=== PATIENT | female | born 1940 | race Caucasian/White ===

== ENCOUNTER 2019-12-20 20:14 | Inpatient (IN) | payer MEDICARE, SELFPAY ==
[2019-12-20] VITALS (9 sets, daily range): BP systolic 142–191; BP diastolic 57–97; PULSE 50–60; RESP 12–14; TEMP 36.6–36.7; O2SAT 89–95; BMI 33.0; BMI 29.3
--- NOTE | 2019-12-20 20:24 | ED.RN ---
CALLED FOR EKG PER RN REQUEST, PULLED OLD EKGS FOR
--- NOTE | 2019-12-20 20:36 | RAD_ITS ---
STUDY: X-RAY CHEST REASON FOR EXAM: Female, 79 years old. CHEST PAIN, PREVIOUS HEART ATTACK, SMOKER. TECHNIQUE: Single frontal view of the chest. COMPARISON: May 06, 2013. FINDINGS: Cardiac silhouette unremarkable. Pulmonary vascularity unremarkable. Aorta atherosclerotic. No focal airspace opacities. No pleural effusions. A rounded nodular density at the right base is similar to the comparison examination 2012. Upper abdomen unremarkable. Osseous structures intact. No pneumothorax. RAD/Chest 1 View (Portable) IMPRESSION: No acute cardiopulmonary findings Electronically Signed: Arslan Huff, at 21:01 EST Tel , Service support ,
--- NOTE | 2019-12-20 20:36 | EKG12_ITS ---
Test Reason : CP Blood Pressure : / mmHG Vent. Rate : 053 BPM Atrial Rate : 053 BPM P-R Int : 134 ms QRS Dur : 076 ms QT Int : 482 ms P-R-T Axes : 064 049 056 degrees QTc Int : 452 ms Sinus bradycardia Left ventricular hypertrophy with repolarization abnormality Abnormal ECG Confirmed by GERARDO US, GILES ([id number]), editor department RAMIRO ACOSTA ([id number]) on 12/22/2019 8:02:45 AM Referred By: ZACKARY Confirmed By:SAUL CARRILLO MD
[2019-12-20 20:43] LABS: Absolute Lymphocyte Count 1.87 X10^3/uL (0.83-4.51); Basophil# 0.08 X10^3/uL; Basophil% 0.7 % (0-1); Eosinophil# 0.35 X10^3/uL; Eosinophils% 2.9 % (0-5); Hematocrit 44.1 % (37-47); Hemoglobin 14.6 g/dL (12.0-15.0); Lymphocyte # 1.87 X10^3/ul (4.0); Lymphocyte % 15.3 % (19-41); Mean Corp Hgb Conc 33.1 g/dL (32-36); Mean Corpuscular Hgb 30.3 pg (27.0-32.0); Mean Corpuscular Volume 91.5 fL (81-99); Mean Platelet Vol. 11.2 fl (6.2-12.0); Monocyte# 0.84 X10^3/uL; Monocyte% 6.9 % (0-10); NRBC Flagged by Analyzer 0 % (0-5); Neutrophil % 73.8 % (47-70); Platelet Count 252 K/mm3 (150-450); RBC Distribution Width SD 50.3 fl (35.1-43.9); Red Blood Count 4.82 M/mm3 (4.2-5.4); White Blood Count 12.2 K/mm3 (4.4-11.0)
[2019-12-20] MEDS: Nitroglycerin SL (ED/IMG/CATH) 0.4 MG TABLET SUBLINGUAL ×2 (20:43→20:50)
[2019-12-20 20:57] LABS: Anion Gap 5 (5-15); BUN 24 mg/dL (7-18); BUN/Creat Ratio 23.5 RATIO (10-20); Calcium,Total 9.1 mg/dL (8.5-10.1); Chloride 107 mmol/L (98-107); Creatinine, Serum 1.02 mg/dL (0.55-1.02); EST Glomerular Filtration Rate 56 mL/min (>60); Est Glom Filt Rate - Afr Amer 67 mL/min (>60); Estimated Creatinine Clearance 39.25 ml/min; Glucose 130 mg/dL (74-106); Sodium Level 142 mmol/L (136-145)
--- NOTE | 2019-12-20 21:01 | ED.DCSUM_ITS ---
- ER Visit Summary Date of Service: 12/20/19 Chief Complaint: Chest pain History of Present Illness: The patient is a 79 F who presents with chest pain that began last night. Patient states the pain became worse today. Patient describes her pain as a tightness. Patient states that started with indigestio n. Patient states this is similar to the pain she had with her prior ME approximately 9 years ago. Patient states she has had a stress test approximately a year to a year and a half ago which was normal. Patient states her pain is worse when she tried to lay flat. Patient states her pain improved after vomiting and also after sublingual nitroglycerin that she took at home tonight. Patient admits to some nausea and vomiting. Patient admits to some diaphoresis. Patient states the pain is over the left lower chest. Patient took 1 baby aspirin and nitroglycerin at home. EMS gave 3 baby aspirin and Zofran. Physical Examination: Vital signs are stable except for slightly elevated blood pressure 191/62. Patient is afebrile. Patient is in no acute distress. Oral m ucosa is pink and moist. Neck is supple. Trachea is midline. There is no JVD noted. Heart was regular rate and rhythm. Lungs are clear and equal bilaterally. Abdomen is soft. Bowel sounds are normal. There is no tenderness. There is no rebound or guarding noted. Skin is warm dry. Cranial nerves II through XII are intact. There are no focal motor or sensory deficits noted. Extremities are intact. There is no calf tenderness or edema. Test Results: EKG showed sinus bradycardia with a rate of 53. There is left ventricular hypertrophy noted. There are no acute ST or T wave changes. CBC shows a slight leukocytosis of 12.2. Comprehensive metabolic profile showed a slightly elevated BUN of 24 and a glucose of 130. Troponin was elevated at 0.579. Emergency Department Course and Treatment: EMS administered aspirin and Zofran. Patient was pain-free here in the emergency department. Patient was advised of her findings. Patient has a HEART score of 7 and a ADE risk score of 6. Patient is agreeable to be admitted here in the hospital. Case was discussed with the hospitalist. Patient will be admitted to PCU for observation. Patient and family understood and were agreeable with the plan. All questions were answered. Disposition: Admit for observation Impression: 1. Chest pain 2. Elevated troponin This note was generated with Dragon dictation software. It may contain incorrect words, spelling, and punctuation that were not noted in review of the chart prior to signing ED Disposition - Plan for ED Patient: Disposition: Acute Care Hospital [facility] Diagnosis: Chest pain, Elevated troponin Referrals: Max Jordan MD [Primary Care Provider] -
--- NOTE | 2019-12-20 21:22 | HP.PCM_ITS ---
Problem List (1) Chest pain Status: Acute Qualifiers: Chest pain type: unspecified Qualified Code(s): R07.9 - Chest pain, unspecified (2) Elevated troponin Status: Acute (3) CAD (coronary artery disease) Status: Chronic Qualifiers: Coronary Disease-Associated Artery/Lesion type: unspecified vessel or lesion type [place] vs. transplanted heart: unspecified whether [place] or transplanted heart Associated angina: angina presence unspecified Qualified Code(s): I25.10 - Atherosclerotic heart disease of [place] coronary artery without angina pectoris (4) HTN (hypertension) Status: Chronic Qualifiers: Hypertension type: essential hypertension Qualified Code(s): I10 - Essential (primary) hypertension (5) HLD (hyperlipidemia) Status: Chronic Qualifiers: Hyperlipidemia type: unspecified Qualified Code(s): E78.5 - Hyperlipidemia, unspecified (6) Obesity Status: Chronic Qualifiers: Obesity type: due to excess calories Obesity classification: adult class 1 (BMI 30 - 34.9) Serious obesity comorbidity presence: unspecified whether serious comorbidity present Body mass index: BMI 33.0-33.9 Qualified Code(s) : E66.09 - Other obesity due to excess calories; Z68.33 - Body mass index (BMI) 33.0-33.9, adult (7) Tobacco use Status: Chronic (8) MATT (obstructive sleep apnea) Status: Chronic (9) Anxiety and depression Status: Chronic (10) Hypothyroidism Status: Chronic Qualifiers: Hypothyroidism type: unspecified Qualified Code(s): E03.9 - Hypothyroidism, unspecified History of Present Illness Date of Admission: 12/20/19 Chief Complaint: Chest pain The patient is a 79 y/o F w/ PMHx: CAD s/p PCI 2009 per daughter report, unclear vessel, HTN, HLD, Hypothyroidism, MATT on CPAP q HS, Obesity, Tobacco use, Anxiety and Depression who presents to the [facility] ED on 12/20/19 with history of onset left sided chest discomfort described as a pressure and tightness, initially 4-5 out of 10 in severity the evening prior to current presentation with general malaise and fatigue with eventual resolution however returned on day of ED presentation starting approximately 5 PM lasting until ED presentation, worse in severity with again left-sided chest tightness and pressure, 10 out of 10 in severity at that time with associated nausea without of emesis and diaphoresis prompting ED presentation. Patient noted resolution of her symptoms with aspirin and sublingual nitroglycerin x1. Upon evaluation patient noted continued 0 out of 10 chest discomfort complaint. Patient denied any recent upper respiratory symptoms nor market dyspnea or productive cough. In the ED following admission patient did have oxygenation noted at 89% on room air with no usage of oxygen at home but chronic tobacco usage prolonged history and likely underlying COPD. Work-up in the ED included T 98.1, heart rate 56, initial BP 191/62 with repeat upon evaluation 142/68, respiratory rate 14, 95% on room air, CBC with WC 12.2, hemoglobin 14.6, platelet 252 with left shift, BMP with BUN/creatinine 24/1.02, glucose 130, troponin 0 0.579, EKG with sinus bradycardia with LVH with no acute evidence of ischemia, rest x-ray with no acute cardiopulmonary findings. Past Medical History Past Medical History (Chronic Problems): Chronic Problems CAD (coronary artery disease) (Chronic) HTN (hypertension) (Chronic) HLD (hyperlipidemia) (Chronic) Obesity (Chronic) Tobacco use (Chronic) MATT (obstructive sleep apnea) (Chronic) Anxiety and depression (Chronic) Hypothyroidism (Chronic) Allergies iodine Allergy (Verified 12/20/19 20:23) Angioedema varenicline [From Chantix] Adverse Reaction (Verified 12/20/19 20:23) Other Home Medications: Ambulatory Orders Medication Instructions Recorded Citalopram Hydrobromide [Celexa] 40 mg PO DAILY 09/07/13 Levothyroxine [Synthroid] 125 mcg PO DAILY 09/07/13 Metoprolol Tartrate [Lopressor] 25 mg PO DAILY 09/07/13 Pravastatin Sodium [Pravachol] 40 mg PO DAILY 09/07/13 Aspirin 81 mg PO DAILY 12/20/19 Hydrochlorothiazide 12.5 mg PO DAILY 12/20/19 Surgical History: - - PCI x1 unclear vessel 2009 per daughter report, bladder lift surgery x2, right total hip replacement. 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 Smoking Status: Current every day smoker - Patient with ongoing 1 pack/day cigarette tobacco usage since youth. Tobacco Use: Cigarettes Alcohol: Occasional Drugs: None - *Family History Maternal History Items: - - Patient notes a maternal family history of at age 65 secondary to reportedly a blood clot. Paternal History Items: - - Patient notes paternal family history of prostate cancer, passing in in his 70s. Review of Systems Constitutional: Reports: Anorexia, Malaise, Weakness, Fatigue. Denies: Chills, Fever, Weight Change HEENT: Denies: Head Aches, Sinus Congestion, Sinus Drainage Cardiovascular: Reports: Chest Pain, Chest Pressure, Chest Tightness, Heaviness, Orthopnea. Denies: Light Headedness, Palpitations, Syncope Respiratory: Denies: Cough, Shortness of Breath, Shortness of breath at rest, Shortness of breath upon exertion, Sputum production Gastrointestinal: Reports: Nausea, Vomiting. Denies: Abdominal Pain Genitourinary: Denies: Dysuria Musculoskeletal: Reports: Joint Pain. Denies: Joint Tenderness Skin: Denies: Rash, Wounds Neurological: Denies: Numbness, Tingling, Focal weakness Psychiatric: Reports: Anxiety, Depression. Denies: Homicidal Ideations, Suicidal Ideations Hematologic/ Lymphatic: Denies: Easy Bruising, Easy Bleeding VTE Information - Inpt Only VTE Present on Admission: No VTE Mechan Device Prophylaxis: SCD's VTE Pharm Prophylaxis ordered?: Yes Patient Problems: Active and Suspected Problems Chest pain (Acute) Elevated troponin (Acute) Subjective: Seated upright in the ED bed, fatigued appearance, no acute distress, notes chest discomfort currently resolved. Objective: Physical Examination: General: awake, alert, oriented x 3 and cooperative, seated upright in the ED bed, fatigued appearance, notes chest discomfort currently resolved. Skin: normal color, turgor, no icterus, cyanosis. HEENT: AT/NC, EOMI, PERRLA, MMM, no carotid bruits or JVD noted. Lungs: Breath sounds, greater bases, moderate effort, no obvious rales, rhonchi or wheezing. Heart: Cardiac with regular rhythm; no gallop, rub audible, no reproducible dis comfort with palpation. Abdomen: soft, obese, NTTP, ND, normal BS, no HSM. Extremities: no cyanosis, clubbing, or edema. Neurological: patient awake, alert, oriented x 3; cognitive function intact; pu pils equally reactive to light and accomodation; cranial nerves II-XII grossly normal, moving all 4 extremities, no focal deficits, strength moderately global decrease secondary to acute presentation. Psychiatric: affect appears fatigued, no acute evidence of depressive or anxiety feelings. - Physical Exam Vitals/I&O's: Vital Signs Temp Pulse Resp BP Pulse Ox 98.1 F 58 L 14 142/68 H 94 12/20/19 20:19 12/20/19 20:50 12/20/19 20:19 12/20/19 20:50 12/20/19 20:51 Oxygen Flow Rate (L/min) 2 Oxygen Delivery Method Nasal Cannula Weight: 192 lb 7.417 oz Body Mass Index (BMI) 33.0 Laboratory Results 12/20/19 20:21: WBC 12.2 H, RBC 4.82, Hgb 14.6, Hct 44.1, MCV 91.5, MCH 30.3, MCHC 33.1, RDW Std Deviation 50.3 H, RDW Coeff of Kal 15.0 H, Plt Count 252, MPV 11.2, Immature Gran % (Auto) 0.400, Neut % (Auto) 73.8 H, Lymph % (Auto) 15.3 L , [place] % (Auto) 6.9, Eos % (Auto) 2.9, Baso % (Auto) 0.7, Absolute Neuts (auto) 9.0 H, Absolute Lymphs (auto) 1.87, Nucleated RBC % 0 12/20/19 20:21: Sodium 142, Potassium 4.0, Chloride 107, Carbon Dioxide 30.0, Anion Gap 5, BUN 24 H, Creatinine 1.02, Estim Creat Clear Calc 39.25, Est GFR (MDRD) Af Amer 67, Est GFR (MDRD) Non-Af 56 L, BUN/Creatinine Ratio 23.5 H, Glucose 130 H, Calcium 9.1, Troponin I 0.579 H Current Medications Nitroglycerin (Nitrostat) 0.4 mg SUBLINGUAL Q5M PRN PRN Reason: Chest pain Last Admin: 12/20/19 20:50 Dose: 0.4 mg Documented by: Assessment/Plan All Active Problems Chest pain (Acute) Elevated troponin (Acute) The patient is a 79 y/o F w/ PMHx: CAD s/p PCI 2008 per daughter report, unclear vessel, HTN, HLD, Hypothyroidism, MATT on CPAP q HS, Obesity, Tobacco use, Anxiety and Depression who presents to the [facility] ED on 12/20/19 with history of onset left sided chest discomfort described as a pressure and tightness, initially 4-5 out of 10 in severity the evening prior to current presentation with general malaise and fatigue with eventual resolution however returned on day of ED presentation starting approximately 5 PM lasting until ED presentation, worse in severity with again left-sided chest tightness and pressure, 10 out of 10 in severity at that time with associated nausea without of emesis and diaphoresis. 1. Chest Pain w/ Suspected Acute NSTEMI: Work-up in the ED included T 98.1, heart rate 56, initial BP 191/62 with repeat upon evaluation 142/68, respiratory rate 14, 95% on room air, CBC with WC 12.2, hemoglobin 14.6, platelet 252 with left shift, BMP with BUN/creatinine 24/1.02, glucose 130, troponin 0 0.579, EKG with sinus bradycardia with LVH with no acute evidence of ischemia, rest x-ray with no acute cardiopulmonary findings. Will admit to PCU, maintain on a monitored bed, continue serial cardiac enzymes and EKGs. Obtain magnesium level upon admission. Start therapeutic lovenox. Continue medical management w/ asa, BB, statin w/ AM FLP. Cardiology consulted for consideration cardiac catheterization. ECHO requested. Maintain NPO after midnight w/ gentle hyd ration. ASA, maintain on nitrobid given improvement w/ regimen, morphine. 2. CAD: Status post PCI x1 per report in 2008, unclear vessel, requested records from [facility] as reportedly this is where it was done, continue aspirin, metoprolol with heart rate monitoring given bradycardia, not on MARY inhibitor or ARB, continue statin therapy. 3. Asymptomatic hypoxia (89% on RA), suspected underlying chronic COPD with prolonged tobacco use history: Will maintain on oxygen with wean as tolerated to room air, maintain on ATC duonebs, PRN albuterol, HOB, IS parameters, encourage strongly tobacco cessation, would benefit from outpatient PFTs. 4. Hypertension: Continue home regimen including metoprolol, hydrochlorothiazide, PRN hydralazine. 5. Hyperlipidemia: Continue home statin regimen. AM FLP. 6. Hypothyroidism: Continue home synthroid regimen. 7. Anxiety and depression: We will continue patient home citalopram regimen. 8. Tobacco Abuse: Encouraged cessation, inpatient consultation per RT, NR if desired or currently declined and does state that she intends to continue smoking despite discussions. 9. Obesity: Weight loss and lifestyle changes encouraged. 10. MATT: Will continue CPAP nightly. 11. DVT prophylaxis: SCDs, as noted therapeutic Lovenox. Code Visit Inpatient E&M: 13566 Init Hosp L3
--- NOTE | 2019-12-20 22:26 | EKG12_ITS ---
Test Reason : CP ADMISSION Blood Pressure : / mmHG Vent. Rate : 049 BPM Atrial Rate : 049 BPM P-R Int : 134 ms QRS Dur : 074 ms QT Int : 520 ms P-R-T Axes : 060 055 070 degrees QTc Int : 469 ms Sinus bradycardia Left ventricular hypertrophy with repolarization abnormality Abnormal ECG When compared with ECG of 20-DEC-2019 20:27, MANUAL COMPARISON REQUIRED, DATA IS UNCONFIRMED Confirmed by REGINA BARRERA ([id number]), acquisitions editor RAMIRO ACOSTA ([id number]) on 12/22/2019 1:16:52 PM Referred By: DR JONES Confirmed By:REGINA BARRERA
--- NOTE | 2019-12-20 22:26 | ECHOD_ITS ---
Reason For Study: Chest pain Procedure This was a 2D Doppler, Color Flow transthoracic echocardiogram. Exam performed portable in patient room. Left Ventricle Normal LV size. Sigmoid septum. Left ventricular systolic function is normal. The estimated ejection fraction is 60 %. Stage 2 diastolic dysfunction. No regional wall motion abnormalities noted. Right Ventricle Normal RV size. Normal systolic function. Atria Normal left atrium. Normal right atrium. Mitral Valve Normal mitral valve. Mild (1+) eccentric mitral valve insufficiency. Tricuspid Valve Normal tricuspid valve. Mild tricuspid valve insufficiency. Pulmonary artery systolic pressure is 35 mmHg. Aortic Valve Trisinus/trileaflet aortic valve. Mild (1+) aortic valve insufficiency. Pulmonic Valve Normal pulmonic valve. Great Vessels Normal aortic root. The pulmonary artery is normal size. Normal inferior vena cava. Pericardium/Pleural No pericardial effusion. MMode/2D Measurements & Calculations LVIDd: 4.5 cm IVSd: 1.8 cm Ao root diam: 3.1 cm LVIDs: 2.8 cm LVPWd: 1.1 cm RVDd: 3.1 cm FS: 37.9 % LAV(MOD-bp): 53.6 ml LVAd ap4: 33.2 cm2 SV(MOD-sp4): 66.3 ml LAV(MOD-bp) Indexed: 28.6 ml/m2 EDV(MOD-sp4): 109.2 ml LAV(MOD-sp2): 46.2 ml EDV(sp4-el): 113.2 ml LAV(MOD-sp4): 54.4 ml LVAs ap4: 18.7 cm2 ESV(MOD-sp4): 42.9 ml ESV(sp4-el): 42.9 ml EF(MOD-sp4): 60.7 % EF(sp4-el): 62.1 % SV(sp4-el): 70.3 ml LA A4 area: 19.8 cm2 LA dimension(2D): 4.2 cm RA A4 area: 16.7 cm2 Doppler Measurements & Calculations MV E max momo: 92.3 cm/sec Lat Peak E' Momo: 3.0 cm/sec Med Peak E' Momo: 5.0 cm/sec MV A max momo: 60.5 cm/sec E/E' lat: 31.1 E/E' med: 18.3 MV E/A: 1.5 Ao V2 max: 129.8 cm/sec AI max momo: 402.2 cm/sec LV V1 max: 90.2 cm/sec Ao max P.7 mmHg AI max P.7 mmHg LV V1 max P.3 mmHg AI dec slope: 198.5 cm/sec2 AI P1/2t: 593.3 msec PA V2 max: 70.6 cm/sec TR max momo: 277.5 cm/sec TR max P.8 mmHg Interpretation Summary Normal LV size. Left ventricular systolic function is normal. The estimated ejection fraction is 60 %. Mild tricuspid valve insufficiency. Mild (1+) eccentric mitral valve insufficiency. Mild (1+) aortic valve insufficiency. Stage 2 diastolic dysfunction. Ordering Physician: Felipa Mcconnell Referring Physician: Max Jordan Performed By: Swathi Miranda RDCS
--- NOTE | 2019-12-20 22:37 | NURSING ---
Pt unsure of last pneumonia shot. Pt unsure of allergies, but states she has a lot.
[2019-12-20 22:40] LABS: Magnesium 2.1 mg/dL (1.6-2.6)
[2019-12-20 22:46] LABS: Prothrombin Time (Protime)PT. 13.1 SECONDS (11.7-14.9)
[2019-12-20 22:47] LABS: Partial Thromboplast Time 27.5 Seconds (24.1-36.2)
[2019-12-20 23:05] LABS: Hemoglobin A1c 5.9 % (4.2-6.3)
[2019-12-20] MEDS: Enoxaparin 100 MG/ML Syringe 90 MG SC (23:38)
[2019-12-20] MEDS: Famotidine 20 MG Tablet PO (23:38)
[2019-12-20] MEDS: 0.9% Saline Lock 10 ML Syringe IV (23:38)
[2019-12-20] MEDS: 0.9% Normal Saline 1,000 ML 100 ML IV (23:44)
[2019-12-20] MEDS: Nitroglycerin Oint 1 INCH PACKET 0.5 INCH TRANSDERM. (23:51)
[2019-12-21] VITALS (34 sets, daily range): BP systolic 102–189; BP diastolic 53–119; PULSE 48–73; RESP 13–21; TEMP 36.5–36.8; O2SAT 92–98; BMI 29.2
[2019-12-21 02:45] LABS: Absolute Lymphocyte Count 2.27 X10^3/uL (0.83-4.51); Absolute Neutrophil Count 5.3 X10^3/uL (2.0-7.7); Basophil# 0.06 X10^3/uL; Basophil% 0.7 % (0-1); Eosinophil# 0.18 X10^3/uL; Eosinophils% 2.1 % (0-5); Hemoglobin 13.4 g/dL (12.0-15.0); Lymphocyte # 2.27 X10^3/ul (4.0); Lymphocyte % 26.2 % (19-41); Mean Corp Hgb Conc 32.7 g/dL (32-36); Mean Corpuscular Hgb 29.6 pg (27.0-32.0); Mean Corpuscular Volume 90.7 fL (81-99); Monocyte# 0.84 X10^3/uL; Monocyte% 9.7 % (0-10); NRBC Flagged by Analyzer 0 % (0-5); Neutrophil # 5.29 X10^3/uL (2.7-7.7); Neutrophil % 60.8 % (47-70); Platelet Count 226 K/mm3 (150-450); RBC Distribution Width SD 50.1 fl (35.1-43.9); Red Blood Count 4.52 M/mm3 (4.2-5.4); White Blood Count 8.7 K/mm3 (4.4-11.0)
[2019-12-21 03:18] LABS: Anion Gap 3 (5-15); BUN 23 mg/dL (7-18); BUN/Creat Ratio 27.9 RATIO (10-20); Calcium,Total 8.5 mg/dL (8.5-10.1); Chloride 108 mmol/L (98-107); Cholesterol 149 mg/dL (200); Creatinine, Serum 0.82 mg/dL (0.55-1.02); EST Glomerular Filtration Rate 71 mL/min (>60); Est Glom Filt Rate - Afr Amer 86 mL/min (>60); Estimated Creatinine Clearance 52.93 ml/min; Glucose 127 mg/dL (74-106); High Density Lipoprotein 52 mg/dL; Potassium 4.3 mmol/L (3.5-5.1); Sodium Level 142 mmol/L (136-145); Triglycerides 68 mg/dL; Very Low Density Lipoprotein 14 mg/dL (5-40)
[2019-12-21] MEDS: Levothyroxine 125 MCG Tablet PO (05:39)
[2019-12-21] MEDS: Nitroglycerin Oint 1 INCH PACKET 0.5 INCH TRANSDERM. (05:40)
--- NOTE | 2019-12-21 05:55 | EKG12_ITS ---
Test Reason : AM EKG Blood Pressure : / mmHG Vent. Rate : 050 BPM Atrial Rate : 050 BPM P-R Int : 138 ms QRS Dur : 072 ms QT Int : 518 ms P-R-T Axes : 065 055 085 degrees QTc Int : 472 ms Sinus bradycardia Nonspecific ST and T wave abnormality Prolonged QT Abnormal ECG When compared with ECG of 20-DEC-2019 22:46, MANUAL COMPARISON REQUIRED, DATA IS UNCONFIRMED Confirmed by REGINA BARRERA ([id number]), assistant production editor RAMIRO ACOSTA ([id number]) on 12/22/2019 1:23:37 PM Referred By: DR JONES Confirmed By:REGINA BARRERA
--- NOTE | 2019-12-21 07:08 | CON.PCM_ITS ---
Reason for Consult Date of Consultation: 12/21/19 Reason for Consultation: Abnormal cardiac enzymes and chest pain History of Present Illness: The patient is a 79 year old F with a past medical history significant for hypertension, tobacco abuse, previous coronary artery disease status post stenting in 2008 at the [facility]. Patient has been fairly sedentary and yesterday experienced epigastric and upper chest discomfort described as a pressure. There was no associated nausea or vomiting no diaphoresis no near syncope or syncope. She was rather concerned about this discomfort so presented to the emergency room and was evaluated. In the emergency room was noted to humphries ve an EKG demonstrating normal sinus rhythm but with mildly abnormal cardiac enzymes. I was called to assist in evaluation and management. She has not had any further chest discomfort since admission. [] Past Medical History Allergies/Adverse Reactions: Allergies guaifenesin [From Mucinex] Allergy (Verified 12/20/19 22:51) Other iodine Allergy (Verified 12/20/19 20:23) Angioedema varenicline [From Chantix] Adverse Reaction (Verified 12/20/19 20:23) Other Home Medications: Ambulatory Orders Medication Instructions Recorded Citalopram Hydrobromide [Celexa] 40 mg PO DAILY 09/07/13 Levothyroxine [Synthroid] 125 mcg PO DAILY 09/07/13 Metoprolol Tartrate [Lopressor] 25 mg PO DAILY 09/07/13 Pravastatin Sodium [Pravachol] 40 mg PO DAILY 09/07/13 Aspirin 81 mg PO DAILY 12/20/19 Losartan Potassium 100 mg PO DAILY 12/20/19 Meloxicam 15 mg DAILY 12/20/19 Past Medical History (Chronic Problems): Chronic Problems CAD (coronary artery disease) (Chronic) HTN (hypertension) (Chronic) HLD (hyperlipidemia) (Chronic) Obesity (Chronic) Tobacco use (Chronic) MATT (obstructive sleep apnea) (Chronic) Anxiety and depression (Chronic) Hypothyroidism (Chronic) Surgical History: - - PCI x1 unclear vessel 2008 per daughter report, bladder lift surgery x2, right total hip replacement. 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 Paternal History Items: - - Patient notes paternal family history of prostate cancer, passing in in his 70s. Lives: Alone - Patient lives alone, does have a boyfriend but they live separately. Smoking Status: Current every day smoker Tobacco Use: Cigarettes Alcohol: Occasional Drugs: None Review of Systems - Review of Systems General: Denies: Fever, Night Sweats, Fatigue HEENT: Denies: Vision Change Cardiovascular: Reports: Chest Discomfort. Denies: Shortness of Breath, Orthopnea, PND, Peripheral Edema, Palpitations, Lightheadedness, Dizziness, Near Syncope, Syncope Respiratory: Denies: Cough, Sputum Production, Hemoptysis Gastrointestinal: Denies: Hematemesis, Hematochezia, Melena Genitourinary: Denies: Dysuria, Hematuria Muscoloskeletal: Denies: Myalgias Skin: Denies: Rash Neurological: Denies: Dizziness Psychiatric: Denies: Anxiety Endocrine: Denies: Unexplained Weight Loss Hematologic/ Lymphatic: Denies: Anemia Subjectve: Pleasant lady in no distress Objective: Vital Signs Temp Pulse Resp BP Pulse Ox 98.2 F 50 L 13 154/58 H 97 12/21/19 04:25 12/21/19 04:25 12/21/19 04:25 12/21/19 05:40 12/21/19 04:25 Oxygen Flow Rate (L/min) 2 Oxygen Delivery Method Nasal Cannula Weight: 181 lb 10.574 oz Body Mass Index (BMI) 29.3 Intake and Output for Last 24 Hours 12/19/19 12/20/19 12/21/19 23:59 23:59 23:59 Intake Total 60 / 60 30 / 30 Balance 60 / 60 30 / 30 General: Awake, Alert, Oriented x 3 HEENT: PERRL, EOMI, Sclera Non Icteric Neck: Supple, Good ROM, No Lymph Node Enlargement Lungs: Clear to auscultation Cardiovascular: Regular Rhythm, Normal S1, Normal S2, No Murmurs, No Rubs, No Gallops Vascular: No Carotid Bruits, Normal Femoral Pulses, Normal Radial Pulses, Normal Dorsalis Pedal Pulse, Normal Posterior Tibial Pulses Abdomen: Bowel Sounds Present, Soft, Non Tender, No HSM, No Organomegaly Extremities: No Cyanosis, No Clubbing, No edema Musculoskeletal: No Erythema Skin: No Rashes Lymphatic: No Lymph Node Enlargement Neurological: No Focal Motor or Sensory Deficit Psych/Mental Status: Appropriate 12/20/19 20:21: WBC 12.2 H, RBC 4.82, Hgb 14.6, Hct 44.1, MCV 91.5, MCH 30.3, MCHC 33.1, Plt Count 252, MPV 11.2, Immature Gran % (Auto) 0.400, Neut % (Auto) 73.8 H, Lymph % (Auto) 15.3 L, Frederick % (Auto) 6.9, Eos % (Auto) 2.9, Baso % (Auto) 0.7, Absolute Neuts (auto) 9.0 H, Nucleated RBC % 0 12/20/19 20:21: Sodium 142, Potassium 4.0, Chloride 107, Carbon Dioxide 30.0, Anion Gap 5, BUN 24 H, Creatinine 1.02, Est GFR (MDRD) Af Amer 67, Est GFR (MDRD) Non-Af 56 L, BUN/Creatinine Ratio 23.5 H, Glucose 130 H, Calcium 9.1, Troponin I 0.579 H 12/20/19 20:21: PT 13.1, INR 1.0, APTT 27.5 12/20/19 20:21: Magnesium 2.1 12/20/19 20:21: Hemoglobin A1c 5.9 12/20/19 22:46: Troponin I 0.437 H 12/21/19 02:28: WBC 8.7, RBC 4.52, Hgb 13.4, Hct 41.0, MCV 90.7, MCH 29.6, MCHC 32.7, Plt Count 226, MPV 11.0, Immature Gran % (Auto) 0.500, Neut % (Auto) 60.8, Lymph % (Auto) 26.2, Frederick % (Auto) 9.7, Eos % (Auto) 2.1, Baso % (Auto) 0.7, Absolute Neuts (auto) 5.3, Nucleated RBC % 0 12/21/19 02:28: Sodium 142, Potassium 4.3, Chloride 108 H, Carbon Dioxide 31.0, Anion Gap 3 L, BUN 23 H, Creatinine 0.82, Est GFR (MDRD) Af Amer 86, Est GFR (MDRD) Non-Af 71, BUN/Creatinine Ratio 27.9 H, Glucose 127 H, Calcium 8.5, Triglycerides 68, Cholesterol 149, LDL Cholesterol 83, VLDL Cholesterol 14, HDL Cholesterol 52 12/21/19 02:28: Troponin I 0.881 H* Rhythm: EKG: Normal sinus rhythm with no acute changes ECHO: Stress Test: Cardiac Cath: PCI: CT Surgery: Holter monitor: EPS: PPM: CXR: Chest CT Scan: Assessment/Plan 1. Non-ST elevation myocardial infarction * Patient presents with chest discomfort and abdominal discomfort with previous risk factors and has ruled in for non-ST elevation myocardial infarction. At this particular time I would recommend that we proceed with a left heart catheterization. The risk benefits alternatives of been explained to her she understands and agrees to proceed. She does have previous dye allergy and will institute appropriate prophylaxis. * 2. Hypertension * Blood pressure appears to be under good control at this time. We will continue with the losartan as well as the beta-tracey. * Will obtain an echocardiogram at some point to assess left ventricular function and wall thickness * 3. Hyperlipidemia * Her lipid status is actually quite acceptable at this time however would benefit from medium intensity statin which will be started. * 4. Risk factor modification * Smoking cessation has been emphasized. Exercise and dietary modification have also been encouraged. * * Thank you for allowing me to participate in the care of your patient. Please don't hesitate to call if any issues arise * * * Addendum: Cardiac catheterization demonstrated the following: Normal left main coronary artery. Left anterior descending artery with mild disease. Left circumflex artery with high-grade 95% long stenosis. Right coronary artery with previously placed stent which is patent with mild in- stent stenosis. Preserved ejection fraction. Based on the above angiographic findings the patient to be considered for angioplasty of the left circumflex artery.
[2019-12-21] MEDS: Ipratropium/Albuterol Sulfate 3 ML AMPUL.NEB INHALATION ×3 (07:18→19:05)
--- NOTE | 2019-12-21 07:38 | CASEMGMT ---
Patient has a Healthcare Power of Quality Control Auditor and a Healthcare Living Will on file at [facility]. Marbella GALO MSW
[2019-12-21] MEDS: TICAGRELOR 90 MG TABLET 180 MG PO (07:58)
[2019-12-21] MEDS: Aspirin 81 MG TAB.CHEW PO (07:58)
[2019-12-21] MEDS: 0.9% Normal Saline 1,000 ML 15 ML IV (08:06)
[2019-12-21] MEDS: Losartan Potassium 100 MG Tablet PO (08:06)
--- NOTE | 2019-12-21 08:10 | CASEMGMT ---
[facility], the following are in-network tertiary facilities: [facility], [place], [facility], [place], [facility], [facility], [place], [facility], and . Diana MANCINI CM
--- NOTE | 2019-12-21 08:15 | NURSING ---
Verbal report given to LIVE Lilly from petroleum refinery laborer.
--- NOTE | 2019-12-21 08:52 | CL.D_ITS ---
Patient Name: ANNE MARIE CÁRDENAS Study Date: 12/21/2019 Performing: Emmett Rasmussen MD Ht: 66.14 inches 168 cm : 1940 Wt: 180.78 lbs 82 kg Age: 79 Gender: female BSA: 1.92 PROCEDURE(S) PERFORMED PH00-TLY/COR/LV CLINICAL PROFILE AND INDICATIONS Indications: Suspected CAD, ACS <= 24 hrs Heart Failure: None Stress/Imaging Stress/Image Study Performed: No CONCLUSIONS Previously placed stent in the right coronary arteries patent, mild disease noted in the left anterio r descending artery and diagonals. Severe disease noted of the mid circumflex artery and a nondomina nt vessel. RECOMMENDATIONS Referred for immediate PCI DESCRIPTION OF PROCEDURE The patient arrived to the procedure lab. The risks and benefits of the procedure as well as a full d escription of our services here and current unavailability of surgical backup were fully explained to the patient and/or their significant other prior to the catheterization. The Timeout was completed, verifying the correct patient and procedure. The patient's procedural site was prepped and draped in the usual fashion. Local anesthetic was given subcutaneously to right radial region with Lidocaine 2% . Using a modified Seldinger technique, arterial access was obtained via the right radial artery, a 6 Fr sheath was inserted. Left Coronary Artery selective angiography was performed in multiple views u sing a 5 Fr. 4.0 Nutley catheter. Right Coronary Artery selective angiography was then performed in mu ltiple views using a 5 Fr. 4.0 Nutley catheter. Left Ventriculography was performed in DUARTE projection using a 5 Fr. Pigtail catheter. LV to AO pullback pressures were then recorded. CORONARY ANGIOGRAPHY DOMINANCE: Right Dominant LEFT HEART ASSESSMENT Left Ventricular Ejection Fraction: by LV Gram 60 % Normal LV wall motion Normal Left Ventricular systolic function LEFT MAIN: Angiographically normal LEFT ANTERIOR DESCENDING ARTERY: PROX LAD: Mild luminal irregularities less than 30% MID LAD: Mild luminal irregularities less than 30% DIAGONAL 1: Proximal - Mild luminal irregularities CIRCUMFLEX ARTERY: MID CIRC: Longer 95% stenotic lesion irregular RIGHT CORONARY ARTERY: MID RCA: Previously placed stent is patent COMPLICATIONS PROCEDURE MEDICATIONS Versed 1 mg IV Oxygen: 2 L/min via nasal cannula Benadryl 25 mg IV @ 12/21/2019 08:28:30 Heparin diluted in 23cc Heparinized saline. Patient given 10cc IA of this solution. 12/21/2019 08:33: 30 Solu-medrol 125 mg IV 12/21/2019 08:28:30 SUMMARY OF HEMODYNAMIC DATA Time AIR REST ECG 08:25:45 AO 165/68 (103) SA 08:34:35 LV 155/5, 11 08:40:33 LV 154/4, 11 08:40:39 LV 156/7, 12 08:41:16 LVp 154/6, 11 08:41:22 AOp 158/55 (93) 08:41:28 Signed By Emmett Rasmussen MD On 12/21/2019 8:51:43 AM Emmett Rasmussen MD
--- NOTE | 2019-12-21 09:09 | NURSING ---
report called to ICU. report given to Katey MANCINI
--- NOTE | 2019-12-21 09:30 | EKG12_ITS ---
Test Reason : POST PCI Blood Pressure : / mmHG Vent. Rate : 051 BPM Atrial Rate : 051 BPM P-R Int : 142 ms QRS Dur : 074 ms QT Int : 504 ms P-R-T Axes : 059 057 045 degrees QTc Int : 464 ms Sinus bradycardia Left ventricular hypertrophy with repolarization abnormality Abnormal ECG When compared with ECG of 21-DEC-2019 05:38, MANUAL COMPARISON REQUIRED, DATA IS UNCONFIRMED Confirmed by REGINA BARRERA ([id number]), online editor RAMIRO ACOSTA ([id number]) on 12/22/2019 1:21:23 PM Referred By: GERARDO Confirmed By:REGINA BARRERA
--- NOTE | 2019-12-21 10:00 | EKG12_ITS ---
Test Reason : AM EKG Blood Pressure : / mmHG Vent. Rate : 059 BPM Atrial Rate : 059 BPM P-R Int : 132 ms QRS Dur : 076 ms QT Int : 472 ms P-R-T Axes : 070 057 026 degrees QTc Int : 467 ms Sinus bradycardia Left ventricular hypertrophy with repolarization abnormality Abnormal ECG When compared with ECG of 21-DEC-2019 09:42, MANUAL COMPARISON REQUIRED, DATA IS UNCONFIRMED Confirmed by REGINA BARRERA ([id number]), editor in chief RAMIRO ACOSTA ([id number]) on 12/22/2019 1:22:47 PM Referred By: JESSICA Confirmed By:REGINA BARRERA
[2019-12-21] MEDS: hydrALAZINE 20 MG/ML Vial 10 MG IV (10:31)
[2019-12-21] MEDS: 0.9% Normal Saline 1,000 ML 60 ML IV ×2 (10:32→19:21)
--- NOTE | 2019-12-21 10:49 | CRPHASE1_ITS ---
Patient Communication PHII Cardiac Rehab Discussed with Patient:: Yes Guide to Cardiac Rehab Given to Patient:: Yes Cardiac Rehab Facility Choice List Given to Patient:: Yes - Pt doesn't plan to do CR due to living in [place] + family responsibil. Choice Program [facility] CR PHII:: Communication Given to CR, Refer to [facility] Manager Of Financial Reporting:: Sabi Chacko PCP:: Max Jordan Phase II Cardiac Rehab:: Yes Sessions:: 36 sessions - 3 days/wk, 12 weeks Phase I Charge:: Level I - Education Risk Factors/Lifestyle Smoking Status: Current every day smoker Hx Hypertension: Yes Hx Diabetes Mellitus Type 1: No Hx Diabetes Mellitus Type 2: No Hx Dyslipidemia: Yes Hx Obesity: Yes Height: 5 ft 6 in Weight:: 181 lb BMI: 29.2 Post-Menopausal: Yes Stress: Home/Family ETOH: Yes Risk Factor for Sedentary Lifestyle: Moderate Risk Family History: - - reports her mother of a pulmonary embolis Past Cardiac Illness: Coronary Artery Disease Laboratory Values: Cardiac Rehab Phase I Labs Hemoglobin A1c 5.9 % (4.2-6.3) 12/20/19 20:21 Triglycerides 68 mg/dL (-199) 12/21/19 02:28 Cholesterol 149 mg/dL (200) 12/21/19 02:28 LDL Cholesterol 83 mg/dL (0-130) 12/21/19 02:28 HDL Cholesterol 52 mg/dL (40-) 12/21/19 02:28 Phase I Education Given On:: [place], Nutrition, Antiplatelet medication, Smoking cessation Issues Affecting Care:: Social - Pt doesn't plan to do CR due to living in [place] + family responsibilities. Knowledge of Condition:: Yes Learning Preferences: Verbal, Written, Audio/Visual, Demonstration Cardiac Rehabilitation Info Cardiac Rehabilitation Program Information: Cardiac Rehabilitation is important for patients like you who are recovering from a heart problem. Cardiac rehabilitation programs are recognized as integral to the continued care of the patient with coronary heart disease. The cardiac rehabilitation program is designed to optimize a patient's physical, psychological, and social functioning. Health acute care physical therapist work in cardiac rehabilitation programs and assist you with getting the treatments you need to get stronger and healthier - like exercise, healthy eating habits, and medications. Cardiac rehabilitation has been show to help people with heart problems live longer and have better life enjoyment than people who do not go to cardiac rehabilitation. Please contact the Cardiac Rehabilitation Program at [facility] at in two weeks if you have not heard from them.
--- NOTE | 2019-12-21 10:56 | CRPH1.INST_ITS ---
General Education CAD and cardiac anatomy and function:: Patient communicates acknowledgment, Needs reinforcement Explanation of diagnoses and procedures:: Patient communicates acknowledgment, Needs reinforcement Sign/Symptoms of SC:: Patient communicates acknowledgment, Needs reinforcement Antiplatelet therapy: Patient communicates acknowledgment, Needs reinforcement Proper use of NTG-SL: Patient communicates acknowledgment, Needs reinforcement Emergency procedures and activation of EMS: Patient communicates acknowledgment, Needs reinforcement Compliance of all prescribed medications: Patient communicates acknowledgment, Needs reinforcement Smoking Patient Nicotine/Smoking Risk Factors Are:: Cigarettes Recommendations Include:: Smoking cessation strategies/Smoking packet, Second- hand smoke recommendation, Participation in a smoking cessation program Nicotine/Smoking Response Code:: Patient communicates acknowledgment, Needs reinforcement Dyslipidemia Patient Dyslipidemia Risk Factors Are:: LDL Recommendations Include:: Lipid profile provided, Reviewed NCEP/ATP guidelines, Therapeutic Lifestyle Change dietary guidelines Dyslipidemia Response Code:: Patient communicates acknowledgment, Needs reinfor cement Overweight/Obesity Patient Overweight/Obesity Risk Factors Are:: Overweight = 26-29 Recommendations Include:: Weight loss of 5-10%, Reduced calorie diet, Exercise 5-7 times/week Overweight/Obesity:: Patient communicates acknowledgment, Needs reinforcement Hypertension Recommendations Include:: Maintain BP <130/85, DASH dietary guidelines, Decrease/maintain normal body weight, Moderation of ETOH Hypertension:: Patient communicates acknowledgment, Needs reinforcement Heart Disease Patient Heart Disease Risk Factors Are:: Previous cardiac event Recommendations Include:: Educated family members of their risk, Educated family members of importance of prevention of heart disease Heart Disease Response Code:: Patient communicates acknowledgment, Needs reinforcement Diabetes Patient Diabetes Risk Factors Are:: No documented hx of diabetes Diabetes:: Not instructed Metabolic Syndrome Recommendations Include:: Does not meet criteria Metabolic Syndrome Response Code:: Not instructed Sedentary Patient Sedentary Risk Factors Are:: Lack of regular exercise Recommendations Include:: Aerobic exercise 5-7 times/week for 20-30 minutes continuously, Benefits of regular exercise, Discussed home walking program, Monitored Outpatient Cardiac Rehab Sedentary Response Code:: Patient communicates acknowledgment, Needs reinforcement Stress Recommendations Include:: Identification of stressors, and assessment of coping skills, Stress management techniques Stress Response Code:: Patient communicates acknowledgment, Needs reinforcement
[2019-12-21] MEDS: Ondansetron 4 MG/2 ML Vial IV (11:12)
--- NOTE | 2019-12-21 11:20 | CASEMGMT ---
RN CM MANAGER ANIMATION CM to room to meet with patient for initial transition planning/care coordination assessment. RN CORBIN introduced self and role at [facility]. Pt voices understanding and consents to assessment at this time. Pt resting in bed. Boyfriend present @ bedside and pt agreeable to him being present during assessment. Pt is A/O at this time and answers all questions appropriately. Care providers, pharmacy, and demographics verified at this time. PCP: Dr Max Jordan Specialists: [facility] used to see Dr Munir Ramirez (cardiology) but has not seen another wind energy project manager since he retired. Preferred Pharmacy: [facility] Insurance: [facility] Prescription Benefit: Yes Living Will/HPOA: Has both LW and Healthcare POA, who is her daughter, Kailyn listed as primary POA. Copies of both are on file @ [facility]. LNOK: 4 adult children-- only wants her daughter, Kailyn, listed on demographics/contact list. Living Arrangements: Lives alone in a 2-story home. States bathroom and bedroom are both on 2nd floor but denies having difficulty with stairs. States is independent with ADL's and IADL's. Transportation: Pt states drives she only drives on occasion. Her daughter, Aman, or her boyfriend provides transportation. Denies concerns. DME: States has/uses the following DME: shower chair, rails/grab bars, hand held shower, and CPAP from [employer]. Also has, but does not use: BSC, cane, walker. Pt states no need for further DME at this time. HHC/SNF: No history of SNF. Has used HHC in the past after hip surgery, but does not remember name of agency. Pt wishes to return home and states has no concerns with going home at time of discharge. CM to follow for any discharge planning/needs. Pt voices no concerns/needs at this time. Advised pt to ask for CM if any further questions/concerns/needs arise. Voices understanding. PLAN: Home PCI done 12/21. Anticipate pt will discharge home on Brilinta. Pt given Brilinta savings card and instructed on use. Instructed to notify wind energy project manager if cost of refills of Brilinta is too high, so other more affordable options can be discussed. Pt voices understanding. Charmaine WAGGONERN LIVE ALANIZ
[2019-12-21] MEDS: Famotidine 20 MG Tablet PO ×2 (11:50→21:30)
[2019-12-21] MEDS: Citalopram 40 MG TABLET PO (11:50)
--- NOTE | 2019-12-21 12:40 | PN_ITS ---
<Maylin Jane - Last Filed: 12/21/19 12:57> Patient Problems: Active and Suspected Problems Chest pain (Acute) Elevated troponin (Acute) Subjective: Patient seen and examined. Underwent cardiac catheterization this morning with PCI. Complains of feeling tired. Otherwise denies chest pain, shortness of breath or other symptoms. Right wrist cath site intact. - Physical Exam Vitals/I&O's: Vital Signs Temp Pulse Resp BP Pulse Ox 97.7 F L 55 L 18 189/56 H 96 12/21/19 07:54 12/21/19 10:31 12/21/19 07:54 12/21/19 10:31 12/21/19 07:54 Oxygen Flow Rate (L/min) 2 Oxygen Delivery Method Nasal Cannula Weight: 181 lb Body Mass Index (BMI) 29.3 Intake and Output for Last 24 Hours 12/19/19 12/20/19 12/21/19 23:59 23:59 23:59 Intake Total 60 / 60 925.5 / 925.5 Balance 60 / 60 925.5 / 925.5 General: Alert, Oriented x3, Cooperative HEENT: Atraumatic, PERRLA, EOMI, Normocephalic Neck: Supple, No JVD, Negative Carotid Bruits Lungs: Clear to auscultation, Normal air movement Cardiovascular: Regular rate, Regular Rhythm, Normal S1, Normal S2, No murmurs Abdomen: Bowel Sounds Present, Soft, Non Tender, Non-Distended Extremities: No clubbing, No cyanosis, No edema Skin: No rashes, No breakdown Musculoskeletal: No Tenderness to Palpation of Joints or Extremities Neurological: Cranial nerves II-XII grossly intact, Neuro grossly intact Psych/Mental Status: Normal Affect, Appropriate Laboratory Results 12/20/19 20:21: WBC 12.2 H, RBC 4.82, Hgb 14.6, Hct 44.1, MCV 91.5, MCH 30.3, MCHC 33.1, RDW Std Deviation 50.3 H, RDW Coeff of Kal 15.0 H, Plt Count 252, MPV 11.2, Immature Gran % (Auto) 0.400, Neut % (Auto) 73.8 H, Lymph % (Auto) 15.3 L, [place] % (Auto) 6.9, Eos % (Auto) 2.9, Baso % (Auto) 0.7, Absolute Neuts (auto) 9.0 H, Absolute Lymphs (auto) 1.87, Nucleated RBC % 0 12/20/19 20:21: Sodium 142, Potassium 4.0, Chloride 107, Carbon Dioxide 30.0, Anion Gap 5, BUN 24 H, Creatinine 1.02, Estim Creat Clear Calc 39.25, Est GFR (MDRD) Af Amer 67, Est GFR (MDRD) Non-Af 56 L, BUN/Creatinine Ratio 23.5 H, Glucose 130 H, Calcium 9.1, Troponin I 0.579 H 12/20/19 20:21: PT 13.1, INR 1.0, APTT 27.5 12/20/19 20:21: Magnesium 2.1 12/20/19 20:21: Hemoglobin A1c 5.9 12/20/19 22:46: Troponin I 0.437 H 12/21/19 02:28: WBC 8.7, RBC 4.52, Hgb 13.4, Hct 41.0, MCV 90.7, MCH 29.6, MCHC 32.7, RDW Std Deviation 50.1 H, RDW Coeff of Kal 15.0 H, Plt Count 226, MPV 11.0, Immature Gran % (Auto) 0.500, Neut % (Auto) 60.8, Lymph % (Auto) 26.2, [place] % (Auto) 9.7, Eos % (Auto) 2.1, Baso % (Auto) 0.7, Absolute Neuts (auto) 5.3, Absolute Lymphs (auto) 2.27, Nucleated RBC % 0 12/21/19 02:28: Sodium 142, Potassium 4.3, Chloride 108 H, Carbon Dioxide 31.0, Anion Gap 3 L, BUN 23 H, Creatinine 0.82, Estim Creat Clear Calc 52.93, Est GFR (MDRD) Af Amer 86, Est GFR (MDRD) Non-Af 71, BUN/Creatinine Ratio 27.9 H, Glucose 127 H, Calcium 8.5, Triglycerides 68, Cholesterol 149, LDL Cholesterol 83, VLDL Cholesterol 14, HDL Cholesterol 52 12/21/19 02:28: Troponin I 0.881 H* Current Medications Acetaminophen (Tylenol) 650 mg PO Q6H PRN PRN PRN Reason: Pain Score 1-10/Temp > 100.7 F Al Hydroxide/Mg Hydroxide (Mylanta Ii) 30 ml PO Q6H PRN PRN PRN Reason: Gastric Burning Albuterol Sulfate (Ventolin Aerosols) 2.5 mg INHALATION Q2H PRN PRN PRN Reason: SOB/Wheezing Albuterol/Ipratropium (Duoneb) 3 ml INHALATION Q6HWA.RT [facility] Last Admin: 12/21/19 07:18 Dose: 3 ml Documented by: Aspirin (Aspirin, Baby) 81 mg PO DAILYCM [facility] Last Admin: 12/21/19 07:58 Dose: 81 mg Documented by: Atropine Sulfate () 0.5 mg IV UD PRN PRN Reason: HR <50 bpm Citalopram Hydrobromide (Celexa) 40 mg PO DAILY [facility] Last Admin: 12/21/19 11:50 Dose: 40 mg Documented by: Enoxaparin Sodium (Lovenox) 90 mg SC Q12@0600,1800 [facility] Last Admin: 12/21/19 07:45 Dose: Not Given Documented by: Famotidine (Pepcid) 20 mg PO BID [facility] Last Admin: 12/21/19 11:50 Dose: 20 mg Documented by: Glucagon () 1 mg IM .X1 PRN PRN Reason: Hypoglycemia Heparin Sodium (Beef Lung) (Heparin 500 Unit/5 Ml (100/Ml)) 500 unit IV UD PRN PRN Reason: HEPARIN FLUSH Hydralazine HCl (Apresoline Iv) 10 mg IV Q4H PRN PRN PRN Reason: SBP > 160 Last Admin: 12/21/19 10:31 Dose: 10 mg Documented by: Sodium Chloride () 1,000 mls @ 60 mls/hr IV .[id number] [facility] Last Infusion: 12/21/19 08:05 Dose: Infused Documented by: Sodium Chloride () 250 mls @ 15 mls/hr IV .[id number] PRN PRN Reason: Saline Flush Sodium Chloride () 250 mls @ 15 mls/hr IV .[id number] PRN PRN Reason: Additional IVPB Infusion Dextrose (Dextrose 10%-Water) 250 mls @ 999 mls/hr IV .Q16M PRN; Protocol PRN Reason: HYPOGLYCEMIA Sodium Chloride () 1,000 mls @ 15 mls/hr IV .Q48H [facility] Last Infusion: 12/21/19 12:08 Dose: 0 mls/hr Documented by: Sodium Chloride () 1,000 mls @ 60 mls/hr IV .[id number] [facility] Last Admin: 12/21/19 10:32 Dose: 60 mls/hr Documented by: Labetalol HCl (Trandate) 5 mg IV X1 PRN PRN Reason: SBP > 160 when pulling sheath Stop: 12/23/19 09:26 Levothyroxine Sodium (Synthroid) 125 mcg PO DAILY@0600 [facility] Last Admin: 12/21/19 05:39 Dose: 125 mcg Documented by: Losartan Potassium (Cozaar) 100 mg PO DAILY [facility] Last Admin: 12/21/19 08:06 Dose: 100 mg Documented by: Magnesium Hydroxide (Milk Of Magnesia) 30 ml PO DAILY PRN PRN PRN Reason: Constipation Melatonin (Melatonin) 3 mg PO QHS PRN PRN PRN Reason: INSOMNIA Metoprolol Tartrate (Lopressor (Beta Madeleine)) 25 mg PO BID [facility] Last Admin: 12/21/19 07:46 Dose: Not Given Documented by: Morphine Sulfate () 2 mg IV Q3H PRN PRN PRN Reason: Pain Score 6-10/10 Nutritional Formula (Lactose Free) (Ensure Enlive) 120 ml PO 4X/DAY [facility] Last Admin: 12/21/19 11:08 Dose: Not Given Documented by: Ondansetron HCl (Zofran) 4 mg IV Q8H PRN PRN PRN Reason: NAUSEA/VOMITING Last Admin: 12/21/19 11:12 Dose: 4 mg Documented by: Oxycodone HCl (Oxyir) 5 mg PO Q4H PRN PRN PRN Reason: Pain Score 4-5/10 Pravastatin Sodium (Pravachol) 40 mg PO QHS [facility] Prochlorperazine Edisylate (Compazine Iv) 5 mg IV Q4H PRN PRN PRN Reason: Breakthrough Nausea/Vomiting Psyllium Hydrophilic Mucilloid (Metamucil) 1 packet PO DAILY PRN PRN PRN Reason: Constipation Senna/Docusate Sodium (Senokot-S, Marah-Colace) 2 tablet PO BID PRN PRN PRN Reason: Constipation Sodium Chloride () 10 - 40 ml IV UD PRN PRN Reason: SALINE FLUSH Last Admin: 12/20/19 23:38 Dose: 10 ml Documented by: Sodium Chloride () 500 ml IV BOLUS PRN PRN Reason: VASO-VAGAL PROTOCOL Throat Lozenges (Cepacol Sore Throat Lozenge) 1 lozenge MUCOUS MEM Q2H PRN PRN PRN Reason: SORE THROAT Ticagrelor (Brilinta) 90 mg PO BID [facility] Medical Necessity - Tobacco Use Smoking Status: Current every day smoker Tobacco Use: Cigarettes Assessment/Plan All Active Problems Chest pain (Acute) Elevated troponin (Acute) 1. NSTEMI, CAD s/p PCI to mid circumflex. Cardiac catheterization 12/21/2019 which demonstrated previous mid RCA stent patent. Mild disease in the left anterior descending artery and diagonals. Continue losartan, metoprolol, statin, aspirin. Brilinta added. 2. Chronic COPD-episode of mild hypoxia. Patient will need walking pulse ox prior to discharge. Recommend outpatient follow-up for PFTs. As needed albuterol aerosol. Continue supplement oxygen to maintain O2 at or above 90%. 3. Hypertension-stable, continue metoprolol, losartan. 4. Hyperlipidemia-continue statin. 5. Hypothyroidism-continue Synthroid regimen. 6. Depression-continue citalopram regimen. 7. MATT-continue CPAP nightly. DVT prophylaxis-Lovenox subcu This patient was seen by DAVID Gonzalez under the supervision of Dr. Cesar. <Igor Cesar - Last Filed: 12/21/19 13:02> Subjective: Seen and examined. Patient diagnosed with non-STEMI. Had cardiac cath today through right radial artery access. Patient felt mild nausea, resolved after Zofran. Denies chest pain. Patient has mild subjective admits of shortness of breath probably chronic. She has history of COPD - Physical Exam Vitals/I&O's: Vital Signs Temp Pulse Resp BP Pulse Ox 97.7 F L 64 18 189/56 H 96 12/21/19 07:54 12/21/19 12:30 12/21/19 07:54 12/21/19 10:31 12/21/19 07:54 Oxygen Flow Rate (L/min) 2 Oxygen Delivery Method Nasal Cannula Weight: 181 lb Body Mass Index (BMI) 29.3 Intake and Output for Last 24 Hours 12/19/19 12/20/19 12/21/19 23:59 23:59 23:59 Intake Total 925.5 / 925.5 Balance 925.5 / 925.5 General: Alert, Oriented x3, Cooperative HEENT: Atraumatic, PERRLA, EOMI, Normocephalic Neck: Supple, No JVD, Negative Carotid Bruits Lungs: Clear to auscultation, Normal air movement, No rhonchi, No wheeze, No rales Cardiovascular: Regular rate, Regular Rhythm, Normal S1, Normal S2, No murmurs Abdomen: Bowel Sounds Present, Soft, Non Tender, Non-Distended Extremities: No edema, Capillary Refill Less than 3 Seconds Skin: No rashes, No breakdown Musculoskeletal: No Tenderness to Palpation of Joints or Extremities Neurological: Cranial nerves II-XII grossly intact, Deep Tendon Reflexes 2+/4 and Symmetrical, Neuro grossly intact Psych/Mental Status: Normal Affect, Appropriate Laboratory Results 12/20/19 20:21: WBC 12.2 H, RBC 4.82, Hgb 14.6, Hct 44.1, MCV 91.5, MCH 30.3, MCHC 33.1, RDW Std Deviation 50.3 H, RDW Coeff of Kal 15.0 H, Plt Count 252, MPV 11.2, Immature Gran % (Auto) 0.400, Neut % (Auto) 73.8 H, Lymph % (Auto) 15.3 L, [place] % (Auto) 6.9, Eos % (Auto) 2.9, Baso % (Auto) 0.7, Absolute Neuts (auto) 9.0 H, Absolute Lymphs (auto) 1.87, Nucleated RBC % 0 12/20/19 20:21: Sodium 142, Potassium 4.0, Chloride 107, Carbon Dioxide 30.0, Anion Gap 5, BUN 24 H, Creatinine 1.02, Estim Creat Clear Calc 39.25, Est GFR (MDRD) Af Amer 67, Est GFR (MDRD) Non-Af 56 L, BUN/Creatinine Ratio 23.5 H, Glucose 130 H, Calcium 9.1, Troponin I 0.579 H 12/20/19 20:21: PT 13.1, INR 1.0, APTT 27.5 12/20/19 20:21: Magnesium 2.1 12/20/19 20:21: Hemoglobin A1c 5.9 12/20/19 22:46: Troponin I 0.437 H 12/21/19 02:28: WBC 8.7, RBC 4.52, Hgb 13.4, Hct 41.0, MCV 90.7, MCH 29.6, MCHC 32.7, RDW Std Deviation 50.1 H, RDW Coeff of Kla 15.0 H, Plt Count 226, MPV 11.0, Immature Gran % (Auto) 0.500, Neut % (Auto) 60.8, Lymph % (Auto) 26.2, [place] % (Auto) 9.7, Eos % (Auto) 2.1, Baso % (Auto) 0.7, Absolute Neuts (auto) 5.3, Absolute Lymphs (auto) 2.27, Nucleated RBC % 0 12/21/19 02:28: Sodium 142, Potassium 4.3, Chloride 108 H, Carbon Dioxide 31.0, Anion Gap 3 L, BUN 23 H, Creatinine 0.82, Estim Creat Clear Calc 52.93, Est GFR (MDRD) Af Amer 86, Est GFR (MDRD) Non-Af 71, BUN/Creatinine Ratio 27.9 H, Glucose 127 H, Calcium 8.5, Triglycerides 68, Cholesterol 149, LDL Cholesterol 83, VLDL Cholesterol 14, HDL Cholesterol 52 12/21/19 02:28: Troponin I 0.881 H* Current Medications Acetaminophen (Tylenol) 650 mg PO Q6H PRN PRN PRN Reason: Pain Score 1-10/Temp > 100.7 F Al Hydroxide/Mg Hydroxide (Mylanta Ii) 30 ml PO Q6H PRN PRN PRN Reason: Gastric Burning Albuterol Sulfate (Ventolin Aerosols) 2.5 mg INHALATION Q2H PRN PRN PRN Reason: SOB/Wheezing Albuterol/Ipratropium (Duoneb) 3 ml INHALATION Q6HWA.RT [facility] Last Admin: 12/21/19 07:18 Dose: 3 ml Documented by: [facility] Last Admin: 12/21/19 07:58 Dose: 81 mg Documented by: Atropine Sulfate () 0.5 mg IV UD PRN PRN Reason: HR <50 bpm Citalopram Hydrobromide (Celexa) 40 mg PO DAILY [facility] Last Admin: 12/21/19 11:50 Dose: 40 mg Documented by: Enoxaparin Sodium (Lovenox) 90 mg SC Q12@0600,1800 [facility] Last Admin: 12/21/19 07:45 Dose: Not Given Documented by: Famotidine (Pepcid) 20 mg PO BID [facility] Last Admin: 12/21/19 11:50 Dose: 20 mg Documented by: Glucagon () 1 mg IM .X1 PRN PRN Reason: Hypoglycemia Heparin Sodium (Beef Lung) (Heparin 500 Unit/5 Ml (100/Ml)) 500 unit IV UD PRN PRN Reason: HEPARIN FLUSH Hydralazine HCl (Apresoline Iv) 10 mg IV Q4H PRN PRN PRN Reason: SBP > 160 Last Admin: 12/21/19 10:31 Dose: 10 mg Documented by: Sodium Chloride () 1,000 mls @ 60 mls/hr IV .[id number] [facility] Last Infusion: 12/21/19 08:05 Dose: Infused Documented by: Sodium Chloride () 250 mls @ 15 mls/hr IV .[id number] PRN PRN Reason: Saline Flush Sodium Chloride () 250 mls @ 15 mls/hr IV .[id number] PRN PRN Reason: Additional IVPB Infusion Dextrose (Dextrose 10%-Water) 250 mls @ 999 mls/hr IV .Q16M PRN; Protocol PRN Reason: HYPOGLYCEMIA Sodium Chloride () 1,000 mls @ 15 mls/hr IV .Q48H [facility] Last Infusion: 12/21/19 12:08 Dose: 0 mls/hr Documented by: Sodium Chloride () 1,000 mls @ 60 mls/hr IV .[id number] [facility] Last Admin: 12/21/19 10:32 Dose: 60 mls/hr Documented by: Labetalol HCl (Trandate) 5 mg IV X1 PRN PRN Reason: SBP > 160 when pulling sheath Stop: 12/23/19 09:26 Levothyroxine Sodium (Synthroid) 125 mcg PO DAILY@0600 [facility] Last Admin: 12/21/19 05:39 Dose: 125 mcg Documented by: Losartan Potassium (Cozaar) 100 mg PO DAILY [facility] Last Admin: 12/21/19 08:06 Dose: 100 mg Documented by: Magnesium Hydroxide (Milk Of Magnesia) 30 ml PO DAILY PRN PRN PRN Reason: Constipation Melatonin (Melatonin) 3 mg PO QHS PRN PRN PRN Reason: INSOMNIA Metoprolol Tartrate (Lopressor (Beta Madeleine)) 25 mg PO BID [facility] Last Admin: 12/21/19 07:46 Dose: Not Given Documented by: Morphine Sulfate () 2 mg IV Q3H PRN PRN PRN Reason: Pain Score 6-10/10 Nutritional Formula (Lactose Free) (Ensure Enlive) 120 ml PO 4X/DAY [facility] Last Admin: 12/21/19 11:08 Dose: Not Given Documented by: Ondansetron HCl (Zofran) 4 mg IV Q8H PRN PRN PRN Reason: NAUSEA/VOMITING Last Admin: 12/21/19 11:12 Dose: 4 mg Documented by: Oxycodone HCl (Oxyir) 5 mg PO Q4H PRN PRN PRN Reason: Pain Score 4-5/10 Pravastatin Sodium (Pravachol) 40 mg PO QHS [facility] Prochlorperazine Edisylate (Compazine Iv) 5 mg IV Q4H PRN PRN PRN Reason: Breakthrough Nausea/Vomiting Psyllium Hydrophilic Mucilloid (Metamucil) 1 packet PO DAILY PRN PRN PRN Reason: Constipation Senna/Docusate Sodium (Senokot-S, Marah-Colace) 2 tablet PO BID PRN PRN PRN Reason: Constipation Sodium Chloride () 10 - 40 ml IV UD PRN PRN Reason: SALINE FLUSH Last Admin: 12/20/19 23:38 Dose: 10 ml Documented by: Sodium Chloride () 500 ml IV BOLUS PRN PRN Reason: VASO-VAGAL PROTOCOL Throat Lozenges (Cepacol Sore Throat Lozenge) 1 lozenge MUCOUS MEM Q2H PRN PRN PRN Reason: SORE THROAT Ticagrelor (Brilinta) 90 mg PO BID [facility] Assessment/Plan This patient was seen in conjunction with CONSTRUCTION ENGINEERMaylin. I have independently interviewed and examined the patient and reviewed pertinent history, examination findings, laboratory and plan of management. I have reviewed the note and agree with the documented findings with the few additional points. In brief, patient is admitted for chest pain or shortness of breath and troponin elevation consistent with non-STEMI. EKG is reviewed. Normal sinus rhythm with no significant ST-T changes. Cardiac cath shows previous mid RCA stent patent, mid circumflex, longer 95% stenosis irregular and had PCI done. LAD less than 30%. 2D echo ordered. Cardiac medications; reviewed. Chronic COPD: Mild subjective shortness of breath. Clinically, no signs of COPD exacerbation. Other comorbidities as mentioned above I have discussed my assessment with CONSTRUCTION ENGINEERMaylin and orders have been reviewed. Code Visit Inpatient E&M: 18907 Subs Hosp L2
--- NOTE | 2019-12-21 17:29 | CL.I_ITS ---
Patient Name: ANNE MARIE CÁRDENAS Study Date: 12/21/2019 Performing: Luli Chacko MD Ht: 66 inches 168 cm : 1940 Wt: 181 lbs 82 kg Age: 79 Gender: female BSA: 1.92 PROCEDURE(S) PERFORMED VC90-RQB W OR WO PTCA, SINGLE CORONARY ARTERY CLINICAL PROFILE AND CO-MORBIDITIES Indications: Suspected CAD, ACS <= 24 hrs Heart Failure: None Stress/Imaging Stress/Image Study Performed: No CONCLUSIONS Successful PTCA/MARCOS mLCx RECOMMENDATIONS dual antiplatelet therapy for 1 year DESCRIPTION OF PROCEDURE The patient arrived to the procedure lab. The risks and benefits of the procedure as well as a full d escription of our services here and current unavailability of surgical backup were fully explained to the patient and/or their significant other prior to the catheterization. The Timeout was completed, verifying the correct patient and procedure. The patient's procedural site was prepped and draped in the usual fashion. Local anesthetic was given subcutaneously to right radial region with Lidocaine 2% Using a modified Seldinger technique,arterial access was obtained via the right radial artery, a 6Fr sheath was inserted. Left Coronary Artery selective angiography was performed in multiple views usin g a 5 Fr. 4.0 [place] catheter. Right Coronary Artery selective angiography was then performed in multi ple views using a 5 Fr. 4.0 [place] catheter. Left Ventriculography was performed in DUARTE projection usi ng a 5 Fr. Pigtail catheter. LV to AO pullback pressures were then recorded. Ascending (root) aorta selective angiography was then performed in single view. Ascending (root) aorta selectiv e angiography was then performed in single view.The images were reviewed and options discussed. A dec ision was then made to proceed with an Intervention, IVUS or other adjunct procedure. XB 3.0 Guide catheter was inserted and engaged into the LCA. BMW Guide wire was advanced to the C ircumflex. 2.0 x 12 Emerge Balloon catheter was advanced across lesion in the circumflex, mid. Angiog avelino performed pre balloon dilatation. PTCA balloon inflated at 6 atms for 10 secs. PTCA balloon infla yuli at 6 atms for 10 secs. PTCA balloon inflated at 8 atms for 11 secs. Angiogram performed post ball oon dilatation. 2.25 x 28 Synergy Drug Eluting stent was advanced across the lesion in the circumflex , mid. Angiogram performed post stent deployment. 2.25 x 12 NC Emerge Balloon catheter was inserted p ost stent. Angiogram performed post balloon dilatation. The arterial sheath was pulled and a TR Ban d was applied for hemostasis 16 cc air inserted INTERVENTION INFORMATION LESION SITE: Circumflex (Mid) Lesion Complexity: High/C, chronic total occlusion: No, lesion at bifurcation: No, thrombus present: No, lesion length: 27 mm, culprit lesion: Yes, Previously treated lesion: No Pre Stenosis: 95 % Pre intervention ADE flow: 3 PROCEDURE: Drug Eluting Stent with pre and post dilatation Post Stenosis: 0 % Post intervention ADE flow: 3 Lesion Devices: Lazar .014 BMW [place] Straight 190cm Cardinal 6 Fr XB3.0 100cm Guide Catheter Logan Sci EMERGE MR 2.00x12 BALLOON Logan Sci Synergy MR MARCOS 2.25x28 Logan Sci NC EMERGE MR 2.25x12 BALLOON COMPLICATIONS No Complications PROCEDURE MEDICATIONS Versed 1 mg IV Versed 1 mg IV Oxygen: 2 L/min via nasal cannula Benadryl 25 mg IV @ 12/21/2019 08:28:30 Heparin diluted in 23cc Heparinized saline. Patient given 10cc IA of this solution. 12/21/2019 08:33: 30 Heparin 4000 unit(s) IV 12/21/2019 08:57:22 Nitro 200 mcg IC 12/21/2019 09:13:12 Solu-medrol 125 mg IV 12/21/2019 08:28:30 SUMMARY OF HEMODYNAMIC DATA Time AIR REST ECG 08:25:45 AO 165/68 (103) SA 08:34:35 LV 155/5, 11 08:40:33 LV 154/4, 11 08:40:39 LV 156/7, 12 08:41:16 LVp 154/6, 11 08:41:22 AOp 158/55 (93) 08:41:28 AO 165/50 (87) 08:53:10 AO 204/74 (121) 09:08:56 Signed By Luli Chacko MD On 12/21/2019 17:28:47 Luli Chacko MD
--- NOTE | 2019-12-21 19:05 | CPS ---
Pt refused BiPAP for tonight
[2019-12-21] MEDS: oxyCODONE 5 MG Tablet PO (19:26)
[2019-12-21] MEDS: Metoprolol Tartrate 25 MG Tablet PO (21:29)
[2019-12-21] MEDS: Pravastatin 40 MG Tablet PO (21:31)
[2019-12-21] MEDS: Clopidogrel Bisulfate 300 MG Tablet 600 MG PO (21:31)
[2019-12-22] VITALS (11 sets, daily range): BP systolic 108–172; BP diastolic 50–71; PULSE 54–71; RESP 11–19; TEMP 36.6; O2SAT 93–96
[2019-12-22] MEDS: Levothyroxine 125 MCG Tablet PO (05:09)
[2019-12-22 05:32] LABS: Hematocrit 41.9 % (37-47); Hemoglobin 13.6 g/dL (12.0-15.0); Mean Corp Hgb Conc 32.5 g/dL (32-36); Mean Corpuscular Hgb 29.6 pg (27.0-32.0); Mean Corpuscular Volume 91.1 fL (81-99); Mean Platelet Vol. 10.9 fl (6.2-12.0); Platelet Count 246 K/mm3 (150-450); RBC Distribution Width CV 14.9 % (11.6-14.6); RBC Distribution Width SD 49.8 fl (35.1-43.9); White Blood Count 15.8 K/mm3 (4.4-11.0)
[2019-12-22 05:49] LABS: ALB/GLOB Ratio 0.8 RATIO (0.9-2.4); AST(SGOT) 16 U/L (15-37); Alanine Aminotransfer ALT/SGPT 15 U/L (13-56); Albumin, Serum 3.1 g/dL (3.2-5.0); Alkaline Phosphatase 51 U/L (45-117); Anion Gap 5 (5-15); BUN 23 mg/dL (7-18); BUN/Creat Ratio 25.6 RATIO (10-20); Calcium,Total 8.6 mg/dL (8.5-10.1); Chloride 109 mmol/L (98-107); EST Glomerular Filtration Rate 65 mL/min (>60); Est Glom Filt Rate - Afr Amer 78 mL/min (>60); Estimated Creatinine Clearance 48.23 ml/min; Globulin 3.7 g/dL (2.2-4.2); Glucose 93 mg/dL (74-106); Potassium 4.3 mmol/L (3.5-5.1); Protein, Total 6.8 g/dL (6.4-8.2); Sodium Level 141 mmol/L (136-145)
--- NOTE | 2019-12-22 06:37 | PN.CARD_ITS ---
Subjectve: Patient seen and evaluated. Appears to doing well. No events overnight. Objective: Vital Signs Temp Pulse Resp BP Pulse Ox 97.9 F 71 14 108/56 L 93 12/22/19 02:00 12/22/19 05:00 12/22/19 05:00 12/22/19 05:00 12/22/19 05:00 Oxygen Flow Rate (L/min) 2 Oxygen Delivery Method Room Air Weight: 182 lb 1.629 oz Body Mass Index (BMI) 29.3 Intake and Output for Last 24 Hours 12/20/19 12/21/19 12/22/19 23:59 23:59 23:59 Intake Total 60 / 60 1925.5 / 2125.5 300 / 300 Output Total 1500 / 1500 Balance 60 / 60 425.5 / 625.5 300 / 300 General: Awake, Alert, Oriented x 3 HEENT: PERRL, EOMI, Sclera Non Icteric Neck: Supple, Good ROM, No Lymph Node Enlargement Lungs: Clear to auscultation Cardiovascular: Regular Rhythm, Normal S1, Normal S2, No Murmurs, No Rubs, No Gallops Vascular: No Carotid Bruits, Normal Femoral Pulses, Normal Radial Pulses, Normal Dorsalis Pedal Pulse, Normal Posterior Tibial Pulses Abdomen: Bowel Sounds Present, Soft, Non Tender, No HSM, No Organomegaly Extremities: No Cyanosis, No Clubbing, No edema Musculoskeletal: No Erythema Skin: No Rashes Neurological: No Focal Motor or Sensory Deficit Psych/Mental Status: Appropriate 12/22/19 05:20: WBC 15.8 H, RBC 4.60, Hgb 13.6, Hct 41.9, MCV 91.1, MCH 29.6, MCHC 32.5, Plt Count 246, MPV 10.9 12/22/19 05:20: Sodium 141, Potassium 4.3, Chloride 109 H, Carbon Dioxide 27.0, Anion Gap 5, BUN 23 H, Creatinine 0.90, Est GFR (MDRD) Af Amer 78, Est GFR (MDRD) Non-Af 65, BUN/Creatinine Ratio 25.6 H, Glucose 93, Calcium 8.6, Total Bilirubin 0.40 Rhythm: EKG: ECHO: Stress Test: Cardiac Cath: PCI: CT Surgery: Holter monitor: EPS: PPM: CXR: Chest CT Scan: Medical Necessity - Tobacco Use Smoking Status: Current every day smoker Tobacco Use: Cigarettes Assessment/Plan 1. Non-ST elevation myocardial infarction * Patient presents with chest discomfort and abdominal discomfort with previous risk factors and has ruled in for non-ST elevation myocardial infarction. * Patient underwent cardiac catheterization and angioplasty and stenting of the circumflex artery. Doing well this morning. No EKG changes. Cath site stable. * Will discharge today for outpatient follow-up in my office 2 to 4 weeks with nurse practitioner 2. Hypertension * Blood pressure appears to be under good control at this time. We will con tinue with the losartan as well as the beta-tracey. * Echo demonstrated preserved left ventricular systolic function. * 3. Hyperlipidemia * Her lipid status is actually quite acceptable at this time however would benefit from medium intensity statin which will be started. * 4. Risk factor modification * Smoking cessation has been emphasized. Exercise and dietary modification have also been encouraged. * * Thank you for allowing me to participate in the care of your patient. Please don't hesitate to call if any issues arise * *
[2019-12-22] MEDS: Ipratropium/Albuterol Sulfate 3 ML AMPUL.NEB INHALATION (06:42)
--- NOTE | 2019-12-22 07:44 | PCM.DC ---
- Discharge Diagnoses Current Active Problems: Current Active and Chronic Problems (Last Updated 12/21/19 @ 18:50 by Little Mooney) Elevated troponin (Acute) Chest pain (Acute) Stented coronary artery (Chronic 12/21/19) Successful PTCA/MARCOS mLCx Arteriosclerotic cardiovascular disease (ASCVD) (Chronic) Essential hypertension (Chronic) HLD (hyperlipidemia) (Chronic) MATT (obstructive sleep apnea) (Chronic) Obesity (Chronic) Tobacco use (Chronic) Hypothyroidism (Chronic) Anxiety and depression (Chronic) You will use the following diet at home:: Cardiac Your food should be the consistency of: Regular Discharge Activity: Return to Normal Activity, May Not Drive Call your doctor if you observe: Fever of 101 or Higher, Coldness, Increased Pain, Numbness or Tingling, Inability to urinate, Inability to have a bowel movement, Shortness of breath, Dizziness, Fainting spells, Swelling in the ankles, Chest pain, Prolonged hiccoughing, Increased palpitations (irregular heartbeat), Calf discomfort, Uncontrolled pain Allergies/Adverse Reactions: Allergies guaifenesin [From Mucinex] Allergy (Verified 12/20/19 22:51) Other iodine Allergy (Verified 12/20/19 20:23) Angioedema varenicline [From Chantix] Adverse Reaction (Verified 12/20/19 20:23) Other Medications to take at Discharge Citalopram Hydrobromide [Celexa] 40 mg PO DAILY 09/07/13 Levothyroxine [Synthroid] 125 mcg PO DAILY 09/07/13 Pravastatin Sodium [Pravachol] 40 mg PO DAILY 09/07/13 Aspirin 81 mg PO DAILY 12/20/19 Losartan Potassium 100 mg PO DAILY 12/20/19 Clopidogrel Bisulfate [Plavix] 75 mg PO DAILY #30 tab 12/22/19 Losartan Potassium [Cozaar] 100 mg PO DAILY #30 tab 12/22/19 Meloxicam 7.5 mg PO DAILY #0 12/22/19 Metoprolol Tartrate [Lopressor (beta tracey)] 25 mg PO BID #60 tab 12/22/19 The following prescriptions were given: Losartan Potassium [Cozaar] 100 mg PO DAILY #30 tab Transmission Status: Pending to [id number] Metoprolol Tartrate [Lopressor (beta tracey)] 25 mg PO BID #60 tab Transmission Status: Pending to [id number] Clopidogrel Bisulfate [Plavix] 75 mg PO DAILY #30 tab Transmission Status: Pending to [id number] Orders to be completed after discharge: Phase II, Outpatient Cardiac Rehab Location: None Selected Primary Care Physician: Max Jordan MD [Primary Care Provider] - Please follow up with your Primary Care Physician in: in 1-2 week Test Results: Test results from this visit will be discussed in further detail at your follow-up appointment, if applicable. Please Follow Up With: Emmett Rasmussen MD When: in 2-4 week
--- NOTE | 2019-12-22 07:45 | PCM.DC.SUM ---
Discharge Date and Diagnosis Date of Admission: 12/20/19 Date of Discharge: 12/22/19 - Primary Discharge Diagnosis Active and Suspected Problems (Last Updated 12/21/19 @ 18:50 by Little Mooney) Elevated troponin (Acute) Chest pain (Acute) Non-STEMI: Cardiac cath normal left ventricular systolic function and normal LV wall motion. EF 60% - Secondary Discharge Diagnosis Chronic Problems (Last Updated 12/21/19 @ 18:50 by Little Mooney) Stented coronary artery (Chronic 12/21/19) Successful PTCA/MARCOS mLCx Arteriosclerotic cardiovascular disease (ASCVD) (Chronic) Essential hypertension (Chronic) HLD (hyperlipidemia) (Chronic) MATT (obstructive sleep apnea) (Chronic) Obesity (Chronic) Tobacco use (Chronic) Hypothyroidism (Chronic) Anxiety and depression (Chronic) Hospital Course and Treatment Summary of Care Provided: The patient is a 79 year old F is admitted for chest pain or shortness of breath and troponin elevation consistent with non-STEMI. EKG is reviewed. Normal sinus rhythm with no significant ST-T changes. Cardiac cath shows previous mid RCA stent patent, mid circumflex, longer 95% stenosis irregular and had PCI done. LAD less than 30%. Patient was transferred to ICU. 2D echo was done. EF 60%, stage II diastolic 7. Mild eccentric MR, TR and AI. Patient on aspirin, Brilinta, statin, metoprolol and losartan. Chronic COPD: Mild subjective shortness of breath. Clinically, no signs of COPD exacerbation. Patient has other comorbidities including hypothyroidism, dyslipidemia, depression and obstructive sleep apnea. Fasting profile within normal limit. On medium intensity statin. Discharge medication reconciliation done. Discharge follow-up instructions completed. Discharge process discussed with the patient and all questions were answered to patient's satisfaction. Prescription sent to the patient's pharmacy. Total time spent, exact 35 minutes on discharge meds reconciliation, examination, coordination of care with nurses and ancillary staff, review of imaging and blood test and discussion with the patient on follow-up instructions Subjective: Seen and examined. Telemetry reviewed. Normal sinus rhythm. No chest pain or shortness of breath. Right radial artery access no hematoma or bleeding/bruise. - Physical Exam Vitals/I&O's: Vital Signs Temp Pulse Resp BP Pulse Ox 97.9 F 61 14 117/58 L 94 12/22/19 02:00 12/22/19 07:00 12/22/19 07:00 12/22/19 07:00 12/22/19 07:00 Oxygen Flow Rate (L/min) 2 Oxygen Delivery Method Room Air Weight: 182 lb 1.629 oz Body Mass Index (BMI) 29.3 Intake and Output for Last 24 Hours 12/20/19 12/21/19 12/22/19 23:59 23:59 23:59 Intake Total 60 / 60 1925.5 / 2125.5 988 / 988 Output Total 1500 / 1500 Balance 60 / 60 425.5 / 625.5 988 / 988 General: Alert, Oriented x3, Cooperative HEENT: Atraumatic, PERRLA, EOMI, Normocephalic Neck: Supple, No JVD, Negative Carotid Bruits Lungs: Clear to auscultation, Normal air movement, No rhonchi, No wheeze, No rales Cardiovascular: Regular rate, Regular Rhythm, Normal S1, Normal S2, No murmurs Abdomen: Bowel Sounds Present, Soft, Non Tender, Non-Distended Extremities: Capillary Refill Less than 3 Seconds, Edema Skin: No rashes, No breakdown Musculoskeletal: No Tenderness to Palpation of Joints or Extremities Neurological: Cranial nerves II-XII grossly intact Psych/Mental Status: Normal Affect, Appropriate Laboratory Results 12/22/19 05:20: WBC 15.8 H, RBC 4.60, Hgb 13.6, Hct 41.9, MCV 91.1, MCH 29.6, MCHC 32.5, RDW Std Deviation 49.8 H, RDW Coeff of Kal 14.9 H, Plt Count 246, MPV 10.9 12/22/19 05:20: Sodium 141, Potassium 4.3, Chloride 109 H, Carbon Dioxide 27.0, Anion Gap 5, BUN 23 H, Creatinine 0.90, Estim Creat Clear Calc 48.23, Est GFR (MDRD) Af Amer 78, Est GFR (MDRD) Non-Af 65, BUN/Creatinine Ratio 25.6 H, Glucose 93, Calcium 8.6, Total Bilirubin 0.40, AST 16, ALT 15, Alkaline Phosphatase 51, Total Protein 6.8, Albumin 3.1 L, Globulin 3.7, Albumin/Globulin Ratio 0.8 L Current Medications Acetaminophen (Tylenol) 650 mg PO Q6H PRN PRN PRN Reason: Pain Score 1-10/Temp > 100.7 F Al Hydroxide/Mg Hydroxide (Mylanta Ii) 30 ml PO Q6H PRN PRN PRN Reason: Gastric Burning Albuterol Sulfate (Ventolin Aerosols) 2.5 mg INHALATION Q2H PRN PRN PRN Reason: SOB/Wheezing Albuterol/Ipratropium (Duoneb) 3 ml INHALATION Q6HWA.[facility] Last Admin: 12/22/19 06:42 Dose: 3 ml Documented by: Aspirin ([facility]in, Baby) [facility] Last Admin: 12/21/19 07:58 Dose: 81 mg Documented by: Atropine Sulfate () 0.5 mg IV UD PRN PRN Reason: HR <50 bpm Citalopram Hydrobromide (Celexa) 40 mg PO DAILY [facility] Last Admin: 12/21/19 11:50 Dose: 40 mg Documented by: Clopidogrel Bisulfate (Plavix) 75 mg PO DAILY [facility] Famotidine (Pepcid) 20 mg PO BID [facility] Last Admin: 12/21/19 21:30 Dose: 20 mg Documented by: Glucagon () 1 mg IM .X1 PRN PRN Reason: Hypoglycemia Heparin Sodium (Beef Lung) (Heparin 500 Unit/5 Ml (100/Ml)) 500 unit IV UD PRN PRN Reason: HEPARIN FLUSH Hydralazine HCl (Apresoline Iv) 10 mg IV Q4H PRN PRN PRN Reason: SBP > 160 Last Admin: 12/21/19 10:31 Dose: 10 mg Documented by: Sodium Chloride () 250 mls @ 15 mls/hr IV .[id number] PRN PRN Reason: Saline Flush Sodium Chloride () 250 mls @ 15 mls/hr IV .[id number] PRN PRN Reason: Additional IVPB Infusion Dextrose (Dextrose 10%-Water) 250 mls @ 999 mls/hr IV .Q16M PRN; Protocol PRN Reason: HYPOGLYCEMIA Sodium Chloride () 1,000 mls @ 15 mls/hr IV .Q48H [facility] Last Infusion: 12/21/19 12:08 Dose: 0 mls/hr Documented by: Labetalol HCl (Trandate) 5 mg IV X1 PRN PRN Reason: SBP > 160 when pulling sheath Stop: 12/23/19 09:26 Levothyroxine Sodium (Synthroid) 125 mcg PO DAILY@0600 [facility] Last Admin: 12/22/19 05:09 Dose: 125 mcg Documented by: Losartan Potassium (Cozaar) 100 mg PO DAILY [facility] Last Admin: 12/21/19 08:06 Dose: 100 mg Documented by: Magnesium Hydroxide (Milk Of Magnesia) 30 ml PO DAILY PRN PRN PRN Reason: Constipation Melatonin (Melatonin) 3 mg PO QHS PRN PRN PRN Reason: INSOMNIA Metoprolol Tartrate (Lopressor (Beta Madeleine)) 25 mg PO BID [facility] Last Admin: 12/21/19 21:29 Dose: 25 mg Documented by: Morphine Sulfate () 2 mg IV Q3H PRN PRN PRN Reason: Pain Score 6-10/10 Nutritional Formula (Lactose Free) (Ensure Enlive) 120 ml PO 4X/DAY [facility] Last Admin: 12/21/19 21:31 Dose: Not Given Documented by: Ondansetron HCl (Zofran) 4 mg IV Q8H PRN PRN PRN Reason: NAUSEA/VOMITING Last Admin: 12/21/19 11:12 Dose: 4 mg Documented by: Oxycodone HCl (Oxyir) 5 mg PO Q4H PRN PRN PRN Reason: Pain Score 4-5/10 Last Admin: 12/21/19 19:26 Dose: 5 mg Documented by: Pravastatin Sodium (Pravachol) 40 mg PO QHS [facility] Last Admin: 12/21/19 21:31 Dose: 40 mg Documented by: Prochlorperazine Edisylate (Compazine Iv) 5 mg IV Q4H PRN PRN PRN Reason: Breakthrough Nausea/Vomiting Psyllium Hydrophilic Mucilloid (Metamucil) 1 packet PO DAILY PRN PRN PRN Reason: Constipation Senna/Docusate Sodium (Senokot-S, Marah-Colace) 2 tablet PO BID PRN PRN PRN Reason: Constipation Sodium Chloride () 10 - 40 ml IV UD PRN PRN Reason: SALINE FLUSH Last Admin: 12/20/19 23:38 Dose: 10 ml Documented by: Sodium Chloride () 500 ml IV BOLUS PRN PRN Reason: VASO-VAGAL PROTOCOL Throat Lozenges (Cepacol Sore Throat Lozenge) 1 lozenge MUCOUS MEM Q2H PRN PRN PRN Reason: SORE THROAT Discharge Activity: Return to Normal Activity, May Not Drive Call your doctor if you observe: Fever of 101 or Higher, Coldness, Increased Pain, Numbness or Tingling, Inability to urinate, Inability to have a bowel movement, Shortness of breath, Dizziness, Fainting spells, Swelling in the ankles, Chest pain, Prolonged hiccoughing, Increased palpitations (irregular heartbeat), Calf discomfort, Uncontrolled pain Home Medications: Medications to take at Discharge Citalopram Hydrobromide [Celexa] 40 mg PO DAILY 09/07/13 Levothyroxine [Synthroid] 125 mcg PO DAILY 09/07/13 Pravastatin Sodium [Pravachol] 40 mg PO DAILY 09/07/13 Aspirin 81 mg PO DAILY 12/20/19 Losartan Potassium 100 mg PO DAILY 12/20/19 Clopidogrel Bisulfate [Plavix] 75 mg PO DAILY #30 tab 12/22/19 Losartan Potassium [Cozaar] 100 mg PO DAILY #30 tab 12/22/19 Meloxicam 7.5 mg PO DAILY #0 12/22/19 Metoprolol Tartrate [Lopressor (beta madeleine)] 25 mg PO BID #60 tab 12/22/19 Following Prescrptions Were Given to Patient: Losartan Potassium [Cozaar] 100 mg PO DAILY #30 tab Transmission Status: Received by [facility] Metoprolol Tartrate [Lopressor (beta madeleine)] 25 mg PO BID #60 tab Transmission Status: Received by [id number] Clopidogrel Bisulfate [Plavix] 75 mg PO DAILY #30 tab Transmission Status: Received by [facility] Other Amb Orders: Phase II, Outpatient Cardiac Rehab Location: None Selected Primary Care Physician: Max Jordan MD [Primary Care Provider] - Please follow up with your Primary Care Physician in: in 1-2 week Please Follow Up With: Emmett Rasmussen MD When: in 2-4 week Medical Necessity - Tobacco Use Smoking Status: Current every day smoker Tobacco Use: Cigarettes Meaningful Use Info Meaningful Use Diagnoses (Choose all that apply): AMI - AMI/Post PCI/Angioplasty Aspirin given w/in 24hrs of arrival?: Yes ASA at discharge?: Yes Antiplatelet Therapy at Discharge:: Yes Statins at discharge?: Yes Hi/ARB at discharge?: Yes Beta Madeleine at discharge?: Yes Done w/ Acute PR measure.: Yes Documented LVEF (%): 60 Code Visit Inpatient E&M: 52268 Disch Hosp
[2019-12-22] MEDS: Clopidogrel Bisulfate 75 MG Tablet PO (08:49)
== END 2019-12-22 09:22 | disposition home or self-care (01) | DRG 247 ==
LOC: ED 21:28 → PCU 21:35 → ICU 12-21 09:01
PROVIDERS: Specialist; Admitting Provider Family Medicine; Emergency Provider Emergency Medicine; PCP Family Medicine; Visit Provider Internal Medicine
DX: I21.4 Non-ST elevation (NSTEMI) myocardial infarction (principal); I10 Essential (primary) hypertension; E78.5 Hyperlipidemia, unspecified; G47.33 Obstructive sleep apnea (adult) (pediatric); E03.9 Hypothyroidism, unspecified; F32.9 Major depressive disorder, single episode, unspecified; F41.9 Anxiety disorder, unspecified; I25.2 Old myocardial infarction; E66.09 Other obesity due to excess calories; Z95.5 Presence of coronary angioplasty implant and graft; Z79.82 Long term (current) use of aspirin; Z79.899 Other long term (current) drug therapy; F17.210 Nicotine dependence, cigarettes, uncomplicated; Z68.33 Body mass index [BMI] 33.0-33.9, adult; R09.02 Hypoxemia; I25.10 Atherosclerotic heart disease of native coronary artery without angina pectoris; J44.9 Chronic obstructive pulmonary disease, unspecified
CPT/HCPCS: 36415; 71045; 80048; 80053; 80061; 83036; 83735; 84484; 85025; 85027; 85610; 85730; 92928; 93005; 93306; 93458; 94640; 94660; 97802; 99152; 99153; 99285; 99406; J7030; A4216; C1725; C1769; C1874; C1887; C1894; C9600; J1327; J2405; Q9967

== ENCOUNTER → 2020-01-12 | Outpatient (CLI) | payer MEDICARE, SELFPAY ==
[2019-12-21 10:55] VITALS: BMI 29.2
[2020-01-12 12:53] VITALS: BMI 31.4
[2020-01-12 14:59] LABS: BNP,B-Type NATRIURETIC PEPTIDE 212.3 pg/mL (0-100)
== END | disposition home or self-care (01) ==
LOC: LAB 13:43
PROVIDERS: PCP Family Medicine; Referring Provider Physician Assistant Medical; Visit Provider Physician Assistant Medical
DX: R06.09 Other forms of dyspnea (principal)
CPT/HCPCS: 36415; 83880

== ENCOUNTER 2020-05-07 10:45 | Observation (INO) | payer MEDICARE, SELFPAY ==
[2019-12-21 10:55] VITALS: BMI 29.2
[2020-01-12 12:53] VITALS: BMI 31.4
[2020-05-07] VITALS (9 sets, daily range): BP systolic 127–185; BP diastolic 55–80; PULSE 46–51; RESP 12–18; TEMP 36.4–36.7; O2SAT 92–96; BMI 31.7; BMI 31.9
--- NOTE | 2020-05-07 11:05 | EKG12_ITS ---
Test Reason : DIZZY Blood Pressure : / mmHG Vent. Rate : 045 BPM Atrial Rate : 045 BPM P-R Int : 136 ms QRS Dur : 076 ms QT Int : 522 ms P-R-T Axes : 053 051 067 degrees QTc Int : 451 ms Sinus bradycardia Minimal voltage criteria for LVH, may be normal variant Borderline ECG Confirmed by REGINA BARRERA ([id number]), news assignment editor BRAN ZALDIVAR ([id number]) on 05/09/2020 11:49:31 AM Referred By: ANA Confirmed By:REGINA BARRERA
--- NOTE | 2020-05-07 11:05 | CT_ITS ---
STUDY: CT BRAIN WITHOUT CONTRAST REASON FOR EXAM: Female, 79 years old. DIZZY, NAUSEA RADIATION DOSAGE (If Supplied By Facility): CTDIvol = ( 44.99 ) mGy, DLP = ( 812.98 ) mGycm TECHNIQUE: Transaxial CT imaging of the brain was performed without administration of intravenous contrast material. Individualized dose optimization techniques were used for this CT. COMPARISON: No relevant priors. FINDINGS: Normal soft tissue structures. Normal calvarium. There is mild cerebral atrophy with widening of the extra-axial spaces and ventricular dilatation. There are areas of decreased attenuation within the white matter tracts of the supratentorial brain, consistent with microvascular disease changes. Normal basal ganglia and thalami. Normal brainstem. Normal cerebellum. There is no intracranial hemorrhage. There are no findings of an acute ischemic infarction. Normal visualized paranasal sinuses. CT/Brain/Head without Contrast IMPRESSION: Chronic involutional changes of the brain. Electronically Signed: Davis Carey MD at 12:29 EDT Tel , Service support ,
--- NOTE | 2020-05-07 11:25 | RAD_ITS ---
STUDY: X-RAY CHEST REASON FOR EXAM: Female, 79 years old. DIZZINESS AND NAUSEA TECHNIQUE: Single AP portable view of the chest. COMPARISON: 12/20/2019 FINDINGS: There is hyperinflation of the lungs consistent with chronic obstructive lung disease (COPD). There is no demonstrated pleural abnormality. There is moderate cardiac enlargement. Normal mediastinum and fracisco. Normal visualized pulmonary arteries. Normal visualized aortic arch and descending thoracic aorta. Normal visualized thoracic spine. Normal visualized ribs, clavicles, and shoulders. There is no demonstrated abnormality of the visualized soft tissue structures of the upper abdomen. RAD/Chest 1 View IMPRESSION: Emphysema without pneumonia or atelectasis. Electronically Signed: Davis Carey MD at 11:48 EDT Tel , Service support ,
[2020-05-07 11:32] LABS: Absolute Lymphocyte Count 1.43 X10^3/uL (0.83-4.51); Absolute Neutrophil Count 5.9 X10^3/uL (2.0-7.7); Basophil# 0.05 X10^3/uL; Basophil% 0.6 % (0-1); Eosinophil# 0.24 X10^3/uL; Eosinophils% 2.9 % (0-5); Hematocrit 48.2 % (37-47); Hemoglobin 15.3 g/dL (12.0-15.0); Lymphocyte # 1.43 X10^3/ul (4.0); Lymphocyte % 17.3 % (19-41); Mean Corp Hgb Conc 31.7 g/dL (32-36); Mean Corpuscular Hgb 29.1 pg (27.0-32.0); Mean Corpuscular Volume 91.8 fL (81-99); Mean Platelet Vol. 10.6 fl (6.2-12.0); Monocyte% 7.3 % (0-10); NRBC Flagged by Analyzer 0 % (0-5); Neutrophil % 71.5 % (47-70); Platelet Count 257 K/mm3 (150-450); RBC Distribution Width CV 15.1 % (11.6-14.6); RBC Distribution Width SD 50.9 fl (35.1-43.9); Red Blood Count 5.25 M/mm3 (4.2-5.4); White Blood Count 8.3 K/mm3 (4.4-11.0)
[2020-05-07] MEDS: Ondansetron 4 MG/2 ML Vial IV (11:45)
[2020-05-07] MEDS: LORazepam 2 MG/ML Syringe 0.5 MG IV (11:45)
[2020-05-07 11:47] LABS: Prothrombin Time (Protime)PT. 12.8 SECONDS (11.7-14.9)
[2020-05-07 11:48] LABS: Partial Thromboplast Time 27.2 Seconds (24.1-36.2)
[2020-05-07 11:51] LABS: Anion Gap 4 (5-15); BUN 20 mg/dL (7-18); BUN/Creat Ratio 24.4 RATIO (10-20); Calcium,Total 8.9 mg/dL (8.5-10.1); Chloride 105 mmol/L (98-107); Creatinine, Serum 0.82 mg/dL (0.55-1.02); EST Glomerular Filtration Rate 71 mL/min (>60); Est Glom Filt Rate - Afr Amer 86 mL/min (>60); Estimated Creatinine Clearance 48.83 ml/min; Glucose 95 mg/dL (74-106); Potassium 4.3 mmol/L (3.5-5.1); Sodium Level 138 mmol/L (136-145)
--- NOTE | 2020-05-07 13:34 | ED.DCSUM_ITS ---
- ER Visit Summary Date of Service: 05/07/20 Chief Complaint: Dizziness History of Present Illness: The patient is a 79 F with dizziness that woke her up around 430 this morning. She describes a spinning sensation. Worse with exposure to light. Associated with a headache and nausea with vomiting. Histor y of vertigo years ago which was treated by ENT with therapy. History of hypertension, hyperlipidemia, hypothyroidism, recent [place]. She is on metoprolol as well as aspirin, Plavix, and her other chronic medications. Physical Examination: Afebrile and vital signs unremarkable except for blood pressure 185/80 and heart rate 47. She has horizontal nystagmus with fast beats to the right. Otherwise HEENT exam is unremarkable. Neck is normal. Heart bradycardic. Lungs clear. Skin appears normal. Test Results: EKG shows bradycardia at a rate of 45. Otherwise normal. Hemoglobin 15.3, BUN 20, coags normal, troponin normal, chest x-ray shows emphysema. CT brain showed chronic changes. Emergency Department Course and Treatment: Patient was placed on a monitor. Nothing to indicate stroke. I suspect this is likely peripheral vertigo. She was treated with Ativan and Zofran. Her symptoms resolved. Work-up was unremarkable, but she continued to have bradycardia. She is on metoprolol. She is continuously in the 40s. I believe she may need a dosage adjustment. I do not believe this is directly contributing to her vertigo. After discussion with the patient and her family, they would like to be admitted. I discussed with the hospitalist who will admit for vertigo and bradycardia. Treatment Plan: As above Disposition: PCU observation Impression: Vertigo, bradycardia This note was generated with [employer] dictation software. It may contain incorrect words, spelling, and punctuation that were not noted in review of the chart prior to signing ED Disposition - Plan for ED Patient: Referrals: Max Jordan MD [Primary Care Provider] -
--- NOTE | 2020-05-07 13:40 | NURSING ---
PCU OBS EMEKA VERTIGO, BRADYCARDIA
--- NOTE | 2020-05-07 14:49 | MRI_ITS ---
HISTORY: Vertigo, nausea, H/A BEGAN TODAY TECHNIQUE: Routine brain MR protocol was performed without gadolinium. COMPARISON: Skin of the brain from 7 hours earlier FINDINGS: # of images incl. paperwork: 308 Right mastoid air cell disease is present. This disease does not appear to affect the vestibular or cochlear system. Brain volume is diminished. Periventricular deep and subcortical white matter disease is moderate to severe. No acute stroke is present. Paranasal sinuses are clear. There are no masses, herniations, nor deviations. Orbits and globes are normal. The pituitary and sella turcica are not enlarged. Flow is present within major central intracranial arteries. MRI/Brain without Contrast IMPRESSION: No acute stroke. Sequelae of chronic microvascular ischemia. 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 at 2007 Reported and signed by: Dimitris Mckee MD Electronically Signed: Dimitris Mckee MD at 20:06 EDT Tel , Service support ,
--- NOTE | 2020-05-07 14:49 | MRI_ITS ---
HISTORY: Vertigo. Nausea. Headache that began today. CT scan of the brain is available for comparison from about 8 hours earlier Technique: 2-D and 3-D [id number] series were obtained through the neck. 3-D MIPs were performed on the acquisition scanner. Findings: Motion artifact is severe and significantly diminishes utility of the study. Flow is present within bilateral CCAs, ICAs, ECAs, and vertebral arteries. I appreciate no aneurysms, stenoses, occlusions, nor dissections. MRI/MRA Neck without Contrast IMPRESSION: Limited exam due to motion artifact. Likely normal. at 2153 Reported and signed by: Dimitris Mckee MD Electronically Signed: Dimitris Mckee MD at 21:52 EDT Tel , Service support ,
[2020-05-07] MEDS: 0.9% Saline Lock 10 ML Syringe IV ×3 (15:14→20:19)
[2020-05-07] MEDS: Lactated Ringers 1,000 ML 60 ML IV (15:14)
--- NOTE | 2020-05-07 15:39 | CASEMGMT ---
Patient has a Healthcare Power of Divemaster and a Healthcare Living Will on file at [facility] [place]. Her daughter Kailyn Reveles is her POA. Marbella GALO MSW
--- NOTE | 2020-05-07 15:50 | HP.PCM_ITS ---
Problem List (1) Vertigo Status: Acute History of Present Illness Date of Admission: 05/07/20 Chief Complaint: Vertigo The patient is a 79 year old F who presented this am to the ED with dizziness. She states that she awoke at about 430 this am and states that she was not feeling well but was unable to pinpoint how she was not feeling well. She reported that she got up to go to the BR as she usually does in the am and when she sat up had a spinning sensation as if the worlds was spinning around her. She states that she had a mild ERVIN and nausea and vomiting that was associated with this. She lives alone but her daughter lives close and brought her in and the pt does not feel comfortable with going home. She states that she has a h/o vertigo remotely and was treated by ENT but states that this was different than that instance. She has a h/o HTN, HPL. CAD with recent DC and hypothyroidism. She states that her thyroid has been off and adjustments were made in her Synthroid dose (increased) and she hasn't felt well since. Those adjustments were about 2-3 weeks ago. At this time her sx have completely resolved but she did have horizontal nystagmus per the ED notes upon presentation. This has resolved. her labs are fairly unremarkable other than she appears mildly dehydrated. EKG is unremarkable. Her VS are stable. A CT of the head was done and shows no acute changes but she has chronic cerebral atrophy with widening of the extra-axial spaces and ventricular dilation and changes c/w microvascular disease. Past Medical History Past Medical History (Chronic Problems): Chronic Problems (Last Reviewed 01/12/20 @ 13:15 by RE Elizondo) CAD (coronary artery disease), [place] coronary artery (Chronic) Previous stenting to RCA, stenting to Cx 12/2019 Stented coronary artery (Chronic 12/21/19) Successful PTCA/MARCOS mLCx Arteriosclerotic cardiovascular disease (ASCVD) (Chronic) Essential hypertension (Chronic) HLD (hyperlipidemia) (Chronic) MATT (obstructive sleep apnea) (Chronic) Obesity (Chronic) Tobacco use (Chronic) Hypothyroidism (Chronic) Anxiety and depression (Chronic) Medical History: Medical History (Last Reviewed 05/07/20 @ 16:[address] Massiel De La Cruz, DO) CAD (coronary artery disease), [place] coronary artery (Chronic) I25.10 Previous stenting to RCA, stenting to Cx 12/2019 Arteriosclerotic cardiovascular disease (ASCVD) (Chronic) I25.10 Essential hypertension (Chronic) I10 HLD (hyperlipidemia) (Chronic) E78.5 MATT (obstructive sleep apnea) (Chronic) G47.33 Obesity (Chronic) E66.9 Hypothyroidism (Chronic) E03.9 Allergies iodine Allergy (Severe, Verified 05/07/20 14:36) Angioedema guaifenesin [From Mucinex] Allergy (Mild, Verified 05/07/20 14:36) Other dizzy ticagrelor [From Brilinta] Adverse Reaction (Severe, Verified 05/07/20 14:36) Shortness of breath varenicline [From Chantix] Adverse Reaction (Severe, Verified 05/07/20 14:36) Other homicidal Home Medications: Ambulatory Orders Medication Instructions Recorded Aspirin [Aspirin, Baby] 81 mg PO DAILY@0800 05/07/20 Cholecalciferol (VIT D3) [Vitamin 1,000 unit PO DAILY 05/07/20 D] Citalopram [Celexa] 20 mg PO DAILY 05/07/20 Clopidogrel Bisulfate [Clopidogrel] 75 mg PO DAILY 05/07/20 Cyanocobalamin (Vitamin B-12) 1,000 mcg PO DAILY 05/07/20 [Vitamin B-12] Levothyroxine [Synthroid] 137 mcg PO DAILY 05/07/20 Losartan Potassium [Cozaar] 100 mg PO DAILY 05/07/20 Meloxicam [Mobic] 15 mg PO DAILY 05/07/20 Metoprolol Succinate 150 mg PO DAILY 05/07/20 Rosuvastatin Calcium 5 mg PO DAILY 05/07/20 Surgical History: Surgical History (Last Reviewed 05/07/20 @ 16:[address] Massiel De La Cruz, DO) Stented coronary artery (Chronic) Onset Date: 12/21/19 Z95.5 Successful PTCA/MARCOS mLCx Surgical History: - - PCI x1 unclear vessel 2009 per daughter report, bladder lift surgery x2, right total hip replacement. 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 Paternal History Items: - - Patient notes paternal family history of prostate cancer, passing in in his 70s. Review of Systems Constitutional: Denies: Anorexia, Chills, Fever, Night Sweats, Malaise, Weakness, Weight Change, Fatigue Eyes: Denies: Blurred vision, Cataracts, Conjunctivae Inflammation, Double vision, Drainage, Eyelid Inflammation, Pain, Redness, Vision Change HEENT: Denies: Difficulty Hearing, Difficulty Swallowing, Ear Pain, Eye Pain, Hard of Hearing, Head Aches - resolved, Hearing Changes, Nasal bleeding, Nasal Congestion, Post Nasal Drip, Sinus Congestion, Sinus Drainage, Sore Throat, Visual Changes Cardiovascular: Denies: Chest Pain, Claudication, Chest Pressure, Edema, Heaviness, Light Headedness, Orthopnea, Palpitations, Paroxysmal Noc. Dyspnea, Syncope Respiratory: Denies: Cough, Hemoptysis, Pleuritic Pain, Shortness of Breath, Shortness of breath at rest, Shortness of breath upon exertion, Sputum production, Wheezing Gastrointestinal: Reports: Vomiting - now resolved. Denies: Abdominal Pain, Constipation, Diarrhea, Dyspepsia, Hematemesis, Hematochezia, Nausea, Melena Genitourinary: Denies: Dysuria, Frequency, Hematuria, Hesitancy, Incontinence, Nocturia, Retention, Urgency Musculoskeletal: Denies: Back Pain, Joint Pain, Joint stiffness, Joint swelling, Joint Tenderness, Leg Pain, Muscle pain, Neck Pain Skin: Denies: Dryness, Jaundice, Lesions Neurological: Reports: - - vertigo-now resolved. Denies: Balance problems, Blurred vision, Double vision, Change in Speech, Slurred speech, Confusion, Difficulty swallowing, Focal weakness, Headaches, Incoordination, Numbness, Tingling, Tremor, Seizures Psychiatric: Reports: Depression, Homicidal Ideations, Suicidal Ideations. Denies: Anxiety Endocrine: Reports: Change in Body Habitus, Heat/ Cold Intolerance, Polydipsia, Polyuria Hematologic/ Lymphatic: Reports: Adenopathy, Anemia, Easy Bruising, Easy Bleeding, Petechiae, Purpura VTE Information - Inpt Only VTE Present on Admission: Yes VTE Mechan Device Prophylaxis: None VTE Pharm Prophylaxis ordered?: Yes Patient Problems: Active and Suspected Problems (Last Reviewed 01/12/20 @ 13:15 by RE Elizondo) Vertigo (Acute) - Physical Exam Vitals/I&O's: Vital Signs Temp Pulse Resp BP Pulse Ox 98.0 F 49 L 12 140/55 H 96 05/07/20 14:38 05/07/20 14:38 05/07/20 14:38 05/07/20 14:38 05/07/20 14:38 Oxygen Delivery Method Room Air Weight: 84.368 kg Body Mass Index (BMI) 31.9 General: Alert, Oriented x3, Cooperative, No apparent distress, Well developed, Well nourished, - - older WF sitting up in bed, daughter at bedside HEENT: Atraumatic, PERRLA, EOMI, Normocephalic, EAC Clear, - - no current nystagmus Oral: Moist Mucosa, No Gingival or Mucosal Lesions/ Ulcerations Neck: Supple, No JVD, Negative Carotid Bruits, Negative Hepatojugular Reflux, No Nodes, No Nuchal Rigidity, Trachea Midline, Thyroid Normal Size and Texture Lungs: Clear to auscultation - but diffusely diminished, No rhonchi, No wheeze, No rales, Diminished Cardiovascular: Regular Rhythm, Normal S1, Normal S2, No murmurs, No Ectopic Activity, Bradycardic, No rub noted, No Gallop Abdomen: Bowel Sounds Present, Soft, Non Tender, Non-Distended, No Hepato- splenomegaly, No hernias noted Extremities: No clubbing, No cyanosis, No edema, Capillary Refill Less than 3 Seconds Skin: No rashes, No breakdown Musculoskeletal: No Tenderness to Palpation of Joints or Extremities, No Muscle Wasting, Arthritic Changes Lymphatic: No Cervical, Supraclavicular, or Inguinal Adenopathy Neurological: Cranial nerves II-XII grossly intact, Deep Tendon Reflexes 2+/4 and Symmetrical, Neuro grossly intact, Motor Exam 5/5 strength throughout, Muscle tone normal, Sensory exam intact to light touch and pain, Coordination normal Psych/Mental Status: Normal Affect, Alert and oriented to time, place, person, mood and affect Laboratory Results 05/07/20 11:20: WBC 8.3, RBC 5.25, Hgb 15.3 H, Hct 48.2 H, MCV 91.8, MCH 29.1, MCHC 31.7 L, RDW Std Deviation 50.9 H, RDW Coeff of Kal 15.1 H, Plt Count 257, MPV 10.6, Immature Gran % (Auto) 0.400, Neut % (Auto) 71.5 H, Lymph % (Auto) 17.3 L, Summers % (Auto) 7.3, Eos % (Auto) 2.9, Baso % (Auto) 0.6, Absolute Neuts (auto) 5.9, Absolute Lymphs (auto) 1.43, Nucleated RBC % 0 05/07/20 11:20: PT 12.8, INR 1.0, APTT 27.2 05/07/20 11:20: Sodium 138, Potassium 4.3, Chloride 105, Carbon Dioxide 29.0, Anion Gap 4 L, BUN 20 H, Creatinine 0.82, Estim Creat Clear Calc 48.83, Est GFR (MDRD) Af Amer 86, Est GFR (MDRD) Non-Af 71, BUN/Creatinine Ratio 24.4 H, Glucose 95, Calcium 8.9, Troponin I < 0.015 Current Medications Acetaminophen (Tylenol) 650 mg PO Q4H PRN PRN PRN Reason: Headache/Temp>99.6F Aspirin (Aspirin, Baby) 81 mg PO DAILY@0800 [facility] Atorvastatin Calcium (Lipitor) 10 mg PO QHS [facility] Cholecalciferol (Vitamin D (25mcg)) 1,000 unit PO DAILY RA Citalopram Hydrobromide (Celexa) 20 mg PO DAILY [facility] Clopidogrel Bisulfate (Plavix) 75 mg PO DAILY [facility] Cyanocobalamin (Vitamin B12) 1,000 mcg PO DAILY [facility] Enoxaparin Sodium (Lovenox) 40 mg SC DAILY [facility] Lactated Ringer's () 1,000 mls @ 60 mls/hr IV .[id number] [facility] Stop: 05/08/20 10:00 Last Admin: 05/07/20 15:14 Dose: 60 mls/hr Documented by: Levothyroxine Sodium (Synthroid) 137 mcg PO DAILY@0600 [facility] Losartan Potassium (Cozaar) 100 mg PO DAILY [facility] Metoprolol Succinate (Toprol Xl (Beta Madeleine)) 75 mg PO DAILY [facility] Sodium Chloride () 10 - 40 ml IV UD PRN PRN Reason: SALINE FLUSH Last Admin: 05/07/20 15:14 Dose: 10 ml Documented by: Assessment/Plan All Active Problems (Last Reviewed 01/12/20 @ 13:15 by RE Elizondo) Vertigo (Acute) Elevated troponin (Acute) Chest pain (Acute) Vertigo -admit to PCU tele -suspect BPPV with history and horizontal nystagmus but with pt's hx will r/u TIA/Stroke -MRI and MRA head and neck -ASA and plavix as pt is on at baseline and has had recent stent -PT to eval and treat and assess further for BPPV Mild Dehydration -IVF--> LR at 60 cc/hr until tomorrow am -PO diet -antiemetic PRN in case of another episode Bradycardia -reduced Metoprolol from 150 mg daily to 75 mg daily -check TSH and Free T4(pt had one at [facility]--> will request lab) about 3 weeks ago CAD/HTN/HPL -12/2019 Stent to Circ and previous stent to Circ -continue ASA and Plavix -continue Metoprolol with dose reduction as above -continue statin -continue Losartan Hypothyroidism -continue Synthroid 137 mcg -check TSH and Free T4 -obtain most recent lab from [facility] MATT -pt non-compliant at home Depression -continue home Celexa Obesity -BMI 31.9 -recommend wgt loss OA -hold home Meloxicam -PRN APAP Tobacco abuse -pt smokes daily -recommend cessation -nicotine patch if needed DVT prophylaxis -Lovenox daily Code status -Full Inpatient E&M: 91228 Init Hosp L3
[2020-05-07] MEDS: LORazepam 2 MG/ML Syringe 1 MG IV (18:30)
--- NOTE | 2020-05-07 19:30 | MRI_ITS ---
HISTORY: Vertigo, nausea, H/A BEGAN TODAY TECHNIQUE: Routine three affiliated of Doyle/brain 3D time of flight MR angiogram protocol was performed without gadolinium. 3D reconstructions were reviewed. COMPARISON: None FINDINGS: # of images incl. paperwork: 195 Flow is present within bilateral intracranial ICA, GABRIELA, MCA, vertebral, superior cerebellars, the basilar artery, and the logging engineer. The anterior communicating artery is patent. Bilateral posterior communicating arteries are not identified. No aneurysms, stenoses, occlusions, nor dissections. MRI/MRA Head ONLY without Contrast IMPRESSION: Normal. at 2045 Reported and signed by: Dimitris Mckee MD Electronically Signed: Dimitris Mckee MD at 20:44 EDT Tel , Service support ,
[2020-05-07] MEDS: Atorvastatin Calcium 10 MG Tablet PO (21:05)
[2020-05-08] VITALS (7 sets, daily range): BP systolic 144–152; BP diastolic 46–68; PULSE 52–57; RESP 18; TEMP 36.5–36.7; O2SAT 93–95
[2020-05-08] MEDS: Levothyroxine 137 MCG Tablet PO (05:51)
[2020-05-08 06:56] LABS: Absolute Lymphocyte Count 1.62 X10^3/uL (0.83-4.51); Basophil# 0.05 X10^3/uL; Basophil% 0.6 % (0-1); Eosinophil# 0.28 X10^3/uL; Eosinophils% 3.3 % (0-5); Hematocrit 45.9 % (37-47); Hemoglobin 14.5 g/dL (12.0-15.0); Lymphocyte # 1.62 X10^3/ul (4.0); Lymphocyte % 18.9 % (19-41); Mean Corp Hgb Conc 31.6 g/dL (32-36); Mean Corpuscular Hgb 29.1 pg (27.0-32.0); Mean Corpuscular Volume 92.2 fL (81-99); Mean Platelet Vol. 10.5 fl (6.2-12.0); Monocyte# 0.59 X10^3/uL; Monocyte% 6.9 % (0-10); NRBC Flagged by Analyzer 0 % (0-5); Neutrophil # 5.99 X10^3/uL (2.7-7.7); Neutrophil % 70.1 % (47-70); Platelet Count 238 K/mm3 (150-450); RBC Distribution Width CV 15.4 % (11.6-14.6); RBC Distribution Width SD 51.6 fl (35.1-43.9); Red Blood Count 4.98 M/mm3 (4.2-5.4); White Blood Count 8.6 K/mm3 (4.4-11.0)
[2020-05-08 07:23] LABS: Cholesterol 167 mg/dL (200); High Density Lipoprotein 52 mg/dL; T4 Free Direct 0.97 ng/dL (0.76-1.46); Thyroid Stim Hormone (TSH) 1.54 uIU/mL (0.358-3.74); Triglycerides 72 mg/dL; Very Low Density Lipoprotein 14 mg/dL (5-40)
[2020-05-08] MEDS: Aspirin 81 MG TAB.CHEW PO (08:13)
--- NOTE | 2020-05-08 09:26 | PCM.DC ---
- Discharge Diagnoses Current Active Problems: Current Active and Chronic Problems (Last Reviewed 05/07/20 @ 16:[address] Massiel De La Cruz DO) Vertigo (Acute) You will use the following diet at home:: No restrictions Your food should be the consistency of: Regular Your liquids should be the consistency of: Regular/Thin Discharge Activity: Return to Normal Activity Weight Bearing Status: Full weight bearing Additional Instructions: DO NOT TAKE MOBIC, IBUPROFEN, OR ALLEVE FOR PAIN-TAKE TYLENOL Allergies/Adverse Reactions: Allergies iodine Allergy (Severe, Verified 05/07/20 14:36) Angioedema guaifenesin [From Mucinex] Allergy (Mild, Verified 05/07/20 14:36) Other dizzy ticagrelor [From Brilinta] Adverse Reaction (Severe, Verified 05/07/20 14:36) Shortness of breath varenicline [From Chantix] Adverse Reaction (Severe, Verified 05/07/20 14:36) Other homicidal Medications to take at Discharge Aspirin [Aspirin, Baby] 81 mg PO DAILY@0800 05/07/20 Cholecalciferol (VIT D3) [Vitamin D3] 1,000 unit PO DAILY 05/07/20 Citalopram [Celexa] 20 mg PO DAILY 05/07/20 Clopidogrel Bisulfate [Clopidogrel] 75 mg PO DAILY 05/07/20 Cyanocobalamin (Vitamin B-12) [Vitamin B-12] 1,000 mcg PO DAILY 05/07/20 Levothyroxine [Synthroid] 137 mcg PO DAILY 05/07/20 Losartan Potassium [Cozaar] 100 mg PO DAILY 05/07/20 Metoprolol Succinate 150 mg PO DAILY 05/07/20 Rosuvastatin Calcium 5 mg PO DAILY 05/07/20 Diazepam [Valium] 2 mg PO 4X/DAY PRN PRN 7 Days #15 tablet 05/08/20 The following prescriptions were given: Diazepam [Valium] 2 mg PO 4X/DAY PRN PRN 7 Days #15 tablet PRN Reason: Dizziness Transmission Status: Sent to [facility] Primary Care Physician: Max Jordan MD [Primary Care Provider] - Please follow up with your Primary Care Physician in: CALL FOR APPOINTMENT Test Results: Test results from this visit will be discussed in further detail at your follow-up appointment, if applicable.
--- NOTE | 2020-05-08 18:06 | DS.PCM_ITS ---
Discharge Date and Diagnosis Date of Admission: 05/07/20 Date of Discharge: 05/08/20 - Primary Discharge Diagnosis Acute Problems: #1 benign positional vertigo #2 coronary artery disease #3 osteoarthritis #4 essential hypertension - Secondary Discharge Diagnosis Chronic Problems: Chronic Problems (Last Reviewed 05/07/20 @ 16:[address] Massiel De La Cruz, DO) CAD (coronary artery disease), [place] coronary artery (Chronic) Previous stenting to RCA, stenting to Cx 12/2019 Stented coronary artery (Chronic 12/21/19) Successful PTCA/MARCOS mLCx Arteriosclerotic cardiovascular disease (ASCVD) (Chronic) Essential hypertension (Chronic) HLD (hyperlipidemia) (Chronic) MATT (obstructive sleep apnea) (Chronic) Obesity (Chronic) Tobacco use (Chronic) Hypothyroidism (Chronic) Anxiety and depression (Chronic) Hospital Course and Treatment Operations: None Procedures: None Summary of Care Provided: The patient is a 79 year old F who was seen in the emergency room at [facility] with a chief complaint of a spinning sensation, it was associated with headache and nausea and vomiting. Patient had a history of vertigo years ago which was treated by an ENT physician and therapy. Work-up in the emergency room included a CT of the brain which showed no acute process, patient had some bradycardia in the emergency room but her blood pressure was normal. Patient was placed in observation status on PCU, she underwent an MRI of the brain as well as an MRA of the head and neck-there was no evidence of acute stroke and there was no evidence of any significant stenosis. On 05/08/2020, patient was seen and examined: On examination she appeared in good health and spirits, she does not appear to be in any distress. Vital signs as do cumented. Skin warm and dry and without overt rashes. Neck without JVD, thyroid appears normal, trachea is midline, neck is supple. Lungs clear, normal air movement was noted. Heart exam notable for regular rhythm, normal sounds and absence of murmurs, rubs or gallops. Abdomen unremarkable and without evidence of organomegaly, masses, or abdominal aortic enlargement, bowel sounds are present in all 4 quadrants, no abdominal tenderness was noted. Extremities nonedematous, no cyanosis was noted, no clubbing was noted. Neuro: Cranial nerves II through XII are grossly intact, no focal motor deficits were noted, sensation to light touch and pinprick is intact, motor exam 5/5 throughout. Psych: Patient is alert and oriented x3, she does not appear anxious or depressed, she does not appear agitated. On 05/08/2020, patient was seen and examined, she had no more symptoms of vertigo and I talked at length with her daughter by phone, she was discharged home in stable condition on that date. - Physical Exam Vitals/I&O's: Vital Signs Temp Pulse Resp BP Pulse Ox 97.7 F L 57 L 18 144/46 H 95 05/08/20 09:51 05/08/20 09:51 05/08/20 09:51 05/08/20 09:51 05/08/20 09:51 Oxygen Delivery Method Room Air Weight: 84.368 kg Body Mass Index (BMI) 31.9 Intake and Output for Last 24 Hours 05/06/20 05/07/20 05/08/20 23:59 23:59 23:59 Intake Total 1015 / 1016 704 / 704 Balance 1016 / 1016 704 / 704 Laboratory Results 05/08/20 05:54: WBC 8.6, RBC 4.98, Hgb 14.5, Hct 45.9, MCV 92.2, MCH 29.1, MCHC 31.6 L, RDW Std Deviation 51.6 H, RDW Coeff of Kal 15.4 H, Plt Count 238, MPV 10.5, Immature Gran % (Auto) 0.200, Neut % (Auto) 70.1 H, Lymph % (Auto) 18.9 L, [place] % (Auto) 6.9, Eos % (Auto) 3.3, Baso % (Auto) 0.6, Absolute Neuts (auto) 6.0, Absolute Lymphs (auto) 1.62, Nucleated RBC % 0 05/08/20 05:54: Triglycerides 72, Cholesterol 167, LDL Cholesterol 101, VLDL Cholesterol 14, HDL Cholesterol 52, TSH 1.54, Free T4 0.97 Discharge Activity: Return to Normal Activity Weight Bearing Status: Full weight bearing Home Medications: Medications to take at Discharge Aspirin [Aspirin, Baby] 81 mg PO DAILY@0800 05/07/20 Cholecalciferol (VIT D3) [Vitamin D3] 1,000 unit PO DAILY 05/07/20 Citalopram [Celexa] 20 mg PO DAILY 05/07/20 Clopidogrel Bisulfate [Clopidogrel] 75 mg PO DAILY 05/07/20 Cyanocobalamin (Vitamin B-12) [Vitamin B-12] 1,000 mcg PO DAILY 05/07/20 Levothyroxine [Synthroid] 137 mcg PO DAILY 05/07/20 Losartan Potassium [Cozaar] 100 mg PO DAILY 05/07/20 Metoprolol Succinate 150 mg PO DAILY 05/07/20 Rosuvastatin Calcium 5 mg PO DAILY 05/07/20 Diazepam [Valium] 2 mg PO 4X/DAY PRN PRN 7 Days #15 tab 05/08/20 traMADol [Ultram (G)] 50 - 100 mg PO Q6H PRN PRN 7 Days #50 tab 05/08/20 Following Prescrptions Were Given to Patient: traMADol [Ultram (G)] 50 - 100 mg PO Q6H PRN PRN 7 Days #50 tab PRN Reason: Pain Score 1-10/10 Transmission Status: Received by JENISE Purchext Diazepam [Valium] 2 mg PO 4X/DAY PRN PRN 7 Days #15 tab PRN Reason: Dizziness Transmission Status: Received by JENISE DRUGS Primary Care Physician: Max Jordan MD [Primary Care Provider] - Please follow up with your Primary Care Physician in: CALL FOR APPOINTMENT Disposition: Home Minutes spent on discharge:: 30 Patient Condition:: Stable Medical Necessity - Tobacco Use Smoking Status: Current every day smoker Tobacco Use: Cigarettes Meaningful Use Info Meaningful Use Diagnoses (Choose all that apply): None applicable OBSV E&M: 64165 Observation care discharge
== END 2020-05-08 09:27 | disposition home or self-care (01) ==
LOC: ED 11:34 → PCU 14:19
PROVIDERS: Admitting Provider Internal Medicine; Emergency Provider Emergency Medicine; PCP Family Medicine; Visit Provider Internal Medicine
DX: H81.10 Benign paroxysmal vertigo, unspecified ear (principal); I10 Essential (primary) hypertension; I25.10 Atherosclerotic heart disease of native coronary artery without angina pectoris; M19.90 Unspecified osteoarthritis, unspecified site; E03.9 Hypothyroidism, unspecified; E78.5 Hyperlipidemia, unspecified; R00.1 Bradycardia, unspecified; E86.0 Dehydration; I25.2 Old myocardial infarction; H55.00 Unspecified nystagmus; G47.33 Obstructive sleep apnea (adult) (pediatric); E66.9 Obesity, unspecified; F17.210 Nicotine dependence, cigarettes, uncomplicated; F41.9 Anxiety disorder, unspecified; F32.9 Major depressive disorder, single episode, unspecified; Z79.02 Long term (current) use of antithrombotics/antiplatelets; Z79.82 Long term (current) use of aspirin; Z79.899 Other long term (current) drug therapy; Z68.31 Body mass index [BMI] 31.0-31.9, adult; R51 Headache; R29.700 NIHSS score 0
CPT/HCPCS: 36415; 70450; 70544; 70547; 70551; 71045; 80048; 80061; 84439; 84443; 84484; 85025; 85610; 85730; 93005; 96374; 96375; 96376; 97162; 99218; 99285; J7120; A4216; G0378; J2405

== ENCOUNTER 2021-01-31 15:29 | Emergency (ER) | payer MEDICARE, SELFPAY ==
[2019-12-21 10:55] VITALS: BMI 29.2
[2020-05-07 23:28] VITALS: BMI 31.9
[2021-01-31] VITALS (7 sets, daily range): BP systolic 147–183; BP diastolic 65–105; PULSE 50–59; RESP 15–18; TEMP 36.1; O2SAT 97–98; BMI 32.2
--- NOTE | 2021-01-31 16:06 | EKG12_ITS ---
Test Reason : CP Blood Pressure : / mmHG Vent. Rate : 056 BPM Atrial Rate : 056 BPM P-R Int : 124 ms QRS Dur : 074 ms QT Int : 444 ms P-R-T Axes : 071 042 060 degrees QTc Int : 428 ms Sinus bradycardia Left ventricular hypertrophy with repolarization abnormality Abnormal ECG Confirmed by NEEL US, LACEY ([id number]), senior editor BRAN ZALDIVAR ([id number]) on 02/03/2021 1:47:32 PM Referred By: LILIA Confirmed By:LACEY SHAIKH MD
--- NOTE | 2021-01-31 16:10 | RAD_ITS ---
STUDY: X-RAY CHEST REASON FOR EXAM: Female, 80 years old. chest pain TECHNIQUE: Frontal view of the chest COMPARISON: 07 May 2020 FINDINGS: Right perihilar shadow is enlarged, possibly due to technique. Lungs are otherwise clear. There is no pneumothorax, pulmonary edema or pleural effusions. Cardiac size is normal for technique. Osseous structures are intact. RAD/Chest 1 View (Portable) IMPRESSION: Questionable appearance of the right hilum, recommend repeat short-term verification with upright standing 2 views to confirm that this is most likely an artifact. No acute chest disease. Electronically Signed: Carolina Morrow MD at 16:40 EDT Tel , Service support ,
[2021-01-31] MEDS: Aspirin 81 MG TAB.CHEW 324 MG PO (16:16)
[2021-01-31] MEDS: Nitroglycerin SL (ED/IMG/CATH) 0.4 MG TABLET SL ×2 (16:28→17:00)
[2021-01-31 16:29] LABS: Absolute Lymphocyte Count 2.72 X10^3/uL (0.83-4.51); Absolute Neutrophil Count 5.3 X10^3/uL (2.0-7.7); Basophil# 0.05 X10^3/uL; Basophil% 0.6 % (0-1); Eosinophils% 3.3 % (0-5); Hematocrit 45.9 % (37-47); Hemoglobin 14.8 g/dL (12.0-15.0); Lymphocyte # 2.72 X10^3/ul (4.0); Lymphocyte % 29.9 % (19-41); Mean Corp Hgb Conc 32.2 g/dL (32-36); Mean Corpuscular Hgb 29.6 pg (27.0-32.0); Mean Corpuscular Volume 91.8 fL (81-99); Mean Platelet Vol. 10.8 fl (6.2-12.0); Monocyte# 0.72 X10^3/uL; Monocyte% 7.9 % (0-10); NRBC Flagged by Analyzer 0 % (0-5); Neutrophil # 5.28 X10^3/uL (2.7-7.7); Neutrophil % 58.1 % (47-70); Platelet Count 260 K/mm3 (150-450); RBC Distribution Width CV 14.9 % (11.6-14.6); RBC Distribution Width SD 50.4 fl (35.1-43.9); White Blood Count 9.1 K/mm3 (4.4-11.0)
--- NOTE | 2021-01-31 16:29 | ED.DCSUM_ITS ---
- ER Visit Summary Date of Service: 01/31/21 Chief Complaint: Chest pain History of Present Illness: The patient is a 80 F who presents with chest pain that began yesterday. Patient states she has a history of coronary artery disease and the pain is somewhat similar to the pain she had with her last heart attack. Patient states the pain feels similar but she is not nauseated. Patient was seen here in December for this and was told she had some coronary artery disease but there was not enough stenosis to do any stenting at that time. Patient describes her pain as a heaviness. Patient states it is diffusely across her chest. Patient states nothing makes it better or nothing makes it worse. Patient denies any shortness of breath or diaphoresis. Patient denies any nausea or vomiting. Patient denies any cough. Physical Examination: Vital signs are stable. Patient is afebrile. Patient is in no acute distress. Oral mucosa is pink and moist. Neck is supple. Trachea is midline. There is no JVD noted. Heart was regular rate and rhythm. Lungs are clear and equal bilaterally. Abdomen is soft. Bowel sounds are normal. There is no tenderness. There is no rebound or guarding noted. Skin is warm dry. Cranial nerves II through XII are intact. There are no focal motor or sensory deficits noted. Extremities are intact. There is no calf tenderness or edema. Test Results: EKG was obtained. On my interpretation, there is a normal sinus rhythm with a rate of 56. There is some evidence of left ventricular hypertrophy. There are no acute ST or T wave changes. This was unchanged compared to previous EKG dated 05/07/2020. Portable 1 view chest x-ray was obtained. On my interpretation, lung morales are clear. There is normal cardiac silhouette. Bony thorax is normal. There is no acute process noted. CBC and basic metabolic profile were within normal limits. Troponin was normal. Emergency Department Course and Treatment: Patient was given aspirin and sublingual nitroglycerin here. Patient is feeling better on reevaluation. Patient wants to go home. Patient was instructed to follow-up with her primary care physician and ear pull machine operator in 3 to 5 days. Patient was instructed return if worse in any way. Patient understood and was agreeable with the plan. All questions were answered. Disposition: Discharge home Impression: 1. Chest pain This note was generated with [employer] software. It may contain incorrect words, spelling, and punctuation that were not noted in review of the chart prior to signing ED Disposition - Plan for ED Patient: Disposition: Home or Assisted Living Diagnosis: Chest pain Instructions: ED Chest Pain, Uncertain Cause Referrals: Max Jordan MD [Primary Care Provider] - 3-5 Days Emmett Rasmussen MD [STAFF PHYSICIAN] -
[2021-01-31 16:51] LABS: Anion Gap 6 (5-15); BUN 18 mg/dL (7-18); Calcium,Total 9.2 mg/dL (8.5-10.1); Chloride 102 mmol/L (98-107); EST Glomerular Filtration Rate 64 mL/min (>60); Est Glom Filt Rate - Afr Amer 77 mL/min (>60); Estimated Creatinine Clearance 43.77 ml/min; Glucose 85 mg/dL (74-106); Potassium 4.3 mmol/L (3.5-5.1); Sodium Level 139 mmol/L (136-145)
== END 2021-01-31 18:30 | disposition home or self-care (01) ==
PROVIDERS: Emergency Provider Emergency Medicine; PCP Family Medicine
DX: R07.9 Chest pain, unspecified (principal); I25.10 Atherosclerotic heart disease of native coronary artery without angina pectoris; I10 Essential (primary) hypertension; E78.00 Pure hypercholesterolemia, unspecified; Z79.899 Other long term (current) drug therapy; Z72.0 Tobacco use
CPT/HCPCS: 71045; 80048; 84484; 85025; 93005; 99285; A4216

== ENCOUNTER → 2021-02-04 14:05 | Outpatient (CLI) | payer MEDICARE, SELFPAY ==
[2019-12-21 10:55] VITALS: BMI 29.2
[2021-02-04 08:43] VITALS: BMI 31.2
[2021-02-04 14:43] LABS: CRP, High Sensitivity Cardiac 6.95 mg/L
== END ==
PROVIDERS: PCP Family Medicine; Referring Provider Internal Medicine Cardiovascular Disease; Visit Provider Internal Medicine Cardiovascular Disease
DX: E78.00 Pure hypercholesterolemia, unspecified (principal)
CPT/HCPCS: 36415; 86141

== ENCOUNTER → 2021-02-17 06:51 | Outpatient (CLI) | payer MEDICARE, SELFPAY ==
[2019-12-21 10:55] VITALS: BMI 29.2
[2021-02-04 08:43] VITALS: BMI 31.2
--- NOTE | 2021-02-17 06:55 | ECHOD_ITS ---
Reason For Study: CAD/ASHD Procedure This was a 2D Doppler, Color Flow transthoracic echocardiogram. Exam performed in department. Left Ventricle Normal LV size. Left ventricular systolic function is normal. The estimated ejection fraction is 60 %. Stage 2 diastolic dysfunction. No regional wall motion abnormalities noted. Right Ventricle Normal RV size. Normal systolic function. Atria Normal left atrium. Normal right atrium. Mitral Valve Normal mitral valve. Mild (1+) eccentric mitral valve insufficiency. Tricuspid Valve Normal tricuspid valve. Mild (1+) tricuspid valve insufficiency. Pulmonary artery systolic pressure is 36 mmHg. Aortic Valve Normal aortic valve. Trisinus/trileaflet aortic valve. Pulmonic Valve Normal pulmonic valve. Great Vessels Normal aortic root. The pulmonary artery is normal size. Normal inferior vena cava. Pericardium/Pleural No pericardial effusion. MMode/2D Measurements & Calculations LVIDd: 5.4 cm IVSd: 1.1 cm Ao root diam: 2.9 cm LVIDs: 3.1 cm LVPWd: 1.0 cm RVDd: 3.4 cm FS: 42.7 % LAV(MOD-bp): 58.0 ml LVAd ap4: 27.0 cm2 SV(MOD-sp4): 47.6 ml LAV(MOD-bp) Indexed: 30.7 ml/m2 EDV(MOD-sp4): 76.8 ml LAV(MOD-sp2): 54.3 ml EDV(sp4-el): 81.8 ml LAV(MOD-sp4): 52.8 ml LVAs ap4: 14.5 cm2 ESV(MOD-sp4): 29.2 ml ESV(sp4-el): 28.7 ml EF(MOD-sp4): 62.0 % EF(sp4-el): 64.9 % SV(sp4-el): 53.1 ml LA A4 area: 19.0 cm2 LA dimension(2D): 4.2 cm RA A4 area: 15.4 cm2 Doppler Measurements & Calculations MV E max momo: 90.2 cm/sec Lat Peak E' Momo: 5.4 cm/sec Med Peak E' Momo: 5.7 cm/sec MV A max momo: 70.6 cm/sec E/E' lat: 16.8 E/E' med: 15.9 MV E/A: 1.3 Ao V2 max: 154.4 cm/sec AI max momo: 324.0 cm/sec LV V1 max: 111.0 cm/sec Ao max P.5 mmHg AI max P.2 mmHg LV V1 max P.9 mmHg Ao V2 mean: 103.9 cm/sec Ao mean P.8 mmHg AI dec slope: 177.7 cm/sec2 Ao V2 VTI: 35.4 cm AI P1/2t: 534.0 msec PA V2 max: 73.3 cm/sec TR max momo: 284.1 cm/sec TR max P.3 mmHg ECHO/Echo Complete Interpretation Summary Normal LV size. Left ventricular systolic function is normal. The estimated ejection fraction is 60 %. Stage 2 diastolic dysfunction. Pulmonary artery systolic pressure is 36 mmHg. Compared to previous study, the left ventricular systolic function is the same. . Ordering Physician: Emmett Rasmussen Referring Physician: Max Jordan Performed By: Maddie Lal, HORACIO, RVT
--- NOTE | 2021-02-17 13:26 | STRESSREP ---
Stress Test Report Pharmacologic myocardial perfusion stress test. 80-year-old lady with a history of coronary artery disease presenting with chest tightness. Medications aspirin clopidogrel Synthroid metoprolol Cozaar. Stress protocol: Resting EKG demonstrates sinus bradycardia with a rate of 51 bpm normal intervals are noted resting blood pressure is 134/68 mmHg. 0.4 mg of regadenoson was infused per usual protocol followed by rapid intravenous saline flush injection continuous EKG monitoring was performed. The maximum heart rate attained was 97 bpm which was 68% of max impacted heart rate and the maximum workload was 1 metabolic equivalent. At rest there were no ST or T wave changes noted to suggest abnormal flow reserve and at peak infusion nonspecific ST changes were noted with did not meet the criteria for abnormal flow reserve. No clinical angina was noted. Myocardial perfusion protocol. 11.9 mCi of technetium 99m sestamibi was injected at rest. 0.4 mg of regadenoson was infused per usual protocol. At peak infusion 32.9 mCi of technetium 99m sestamibi was injected stress images were obtained stress and rest images were reconstructed and compared in the short axis vertical long and horizontal long axis. Gated images were also obtained. Perfusion SPECT analysis: Review of the stress images demonstrate normal uptake of tracer noted in all areas of the myocardium. The resting images similar demonstrate normal uptake of tracer noted in all areas of the myocardium. No areas of reversibility are noted to suggest ischemia and no previous infarct is noted. Gated SPECT analysis: The gated ejection fraction is 75%. Conclusion: Normal pharmacologic myocardial perfusion stress test. Preserved ejection fraction.
== END ==
PROVIDERS: PCP Family Medicine; Referring Provider Internal Medicine Cardiovascular Disease; Visit Provider Internal Medicine Cardiovascular Disease
DX: I25.10 Atherosclerotic heart disease of native coronary artery without angina pectoris (principal); R06.00 Dyspnea, unspecified; Z95.5 Presence of coronary angioplasty implant and graft
CPT/HCPCS: 78452; 93017; 93306; A9500; A4216; J2785

== ENCOUNTER → 2021-02-28 09:21 | Outpatient (CLI) | payer MEDICARE, SELFPAY ==
[2019-12-21 10:55] VITALS: BMI 29.2
[2021-02-04 08:43] VITALS: BMI 31.2
--- NOTE | 2021-02-28 09:28 | RAD_ITS ---
STUDY: AIR CONTRAST UPPER GI SERIES REASON FOR EXAM: Female, 80 years old. Epigastric pain FLUOROSCOPY TIME (if supplied): (60 seconds) minutes/seconds. 18 images were obtained. TECHNIQUE: SINGLE CONTRAST AND AIR CONTRAST FLUOROSCOPIC IMAGES. COMPARISON: None. FINDINGS: The cervical esophagus demonstrates normal motility without aspiration. There is no stricture or extrinsic mass effect. No intraluminal polypoid mass is identified. The thoracic esophagus distends well without stricture or mucosal fold thickening. No mucosal ulcerations are identified. There is no extrinsic mass effect. There are no diverticula. No hiatal hernia or gastroesophageal reflux was identified. The stomach distends well without mucosal fold thickening or mucosal ulceration. There is no intraluminal mass. The duodenal bulb is freely distensible without deformity or ulceration. The duodenal sweep is normal in position and caliber. RAD/Upper GI Dual Contrast IMPRESSION: Normal air-contrast upper GI series. Electronically Signed: Amador Lee MD at 12:36 EDT , Service support ,
== END ==
PROVIDERS: PCP Family Medicine; Referring Provider Family Medicine; Visit Provider Family Medicine
DX: R10.13 Epigastric pain (principal)
CPT/HCPCS: 74246

== ENCOUNTER 2021-12-05 11:03 | Emergency (ER) | payer MEDICARE, SELFPAY ==
[2021-12-05 11:03] VITALS: BP 119/51; PULSE 71; RESP 18; TEMP 35.3; O2SAT 94; BMI 29.2; BMI 31.1
--- NOTE | 2021-12-05 11:28 | EKG12_ITS ---
Test Reason : DIZZY Blood Pressure : / mmHG Vent. Rate : 068 BPM Atrial Rate : 068 BPM P-R Int : 124 ms QRS Dur : 078 ms QT Int : 444 ms P-R-T Axes : 059 061 052 degrees QTc Int : 472 ms Normal sinus rhythm Nonspecific ST and T wave abnormality Prolonged QT Abnormal ECG When compared with ECG of 31-JAN-2021 15:33, Nonspecific T wave abnormality now evident in Anterior leads Confirmed by GERARDO US, GILES ([id number]), department editor BRAN ZALDIVAR ([id number]) on 12/08/2021 10:02:25 A M Referred By: MICHAEL Confirmed By:SAUL CARRILLO MD
--- NOTE | 2021-12-05 11:29 | EDS_ITS ---
HPI History of Present Illness Chief Complaint: General Illness Informant: patient and family Narrative Narrative: Patient here with daughter referred in the ED after speaking with cardiology office today. She is followed by Dr. Rasmussen history of coronary disease with [place] and 2 stents in the past. Most recent was 2 years ago. Patient has been living with a daughter now for the past few months he is reported progression of worsening symptoms of dyspnea worse with exertion. She cannot walk 10 feet without getting lightheaded and vomiting. Worsening symptoms again progress over the past couple weeks and more so over the last 2 days. Saw PCP office 2 days ago diagnosed with UTI on Macrobid have only took 1 dose after throwing up. She had mild dysuria. She told to see her resource recovery engineer with which has appointment 2 PM today. Called cardiology office and was told to come here. She states every time she walks she gets lightheaded short of breath and vomits more recently. Denies worsening chest pain or tightness with walking. No recent travel no history of PE or DVT. Patient is on aspirin and Plavix. States recent headache. She is Covid vaccinated with the booster. Daughter reports had blood work drawn 2 days ago states her kidneys were little worsened however not significant was told to increase p.o. intake. Daughter is not recall the number for creatinine however will look it up. Records reviewed echocardiogram February 2021 EF 60% stage II diastolic dy sfunction. Nuclear stress test same month normal. Heart cath December 2019 mid circumflex lesion of 95% stented, previous mid RCA stent patent. 30% lesion of the proximal and mid LAD at that time. Prior similar symptoms: No PFSH PFSH Medical History Anxiety and depression Atherosclerosis of coronary artery of kaibab heart without angina pectoris Chronic diastolic (congestive) heart failure Essential hypertension History of non-ST elevation myocardial infarction (NSTEMI) (12/21/19) HLD (hyperlipidemia) Hypothyroidism Left ventricular diastolic dysfunction Nicotine dependence Obesity MATT (obstructive sleep apnea) Vertigo Home Medications aspirin 81 mg PO DAILY@0800 05/07/20 [History Last Taken 05/06/20] citalopram 20 mg PO DAILY 05/07/20 [History Last Taken 05/06/20] clopidogrel 75 mg PO DAILY 05/07/20 [History Last Taken 05/06/20] levothyroxine 125 mcg PO DAILY 05/07/20 [History Last Taken 05/06/20] losartan 100 mg PO DAILY 05/07/20 [History Last Taken 05/06/20] rosuvastatin 5 mg PO DAILY 05/07/20 [History Last Taken 05/06/20] tramadol 50 mg PO Q6H PRN PRN 01/31/21 [History Last Taken Unknown] metoprolol succinate 100 mg tablet,extended release 24 hr 100 mg PO DAILY tab 12/05/21 [History Last Taken Unknown] nitrofurantoin monohyd/m-cryst 100 mg PO BID 12/05/21 [History Last Taken Unknown] omeprazole 40 mg PO DAILY 12/05/21 [History Last Taken Unknown] Allergy/AdvReac Type Severity Reaction Status Date / Time iodine Allergy Severe Angioedema Verified 12/05/21 14:03 guaifenesin [From Mucinex] Allergy Mild Other Verified 12/05/21 14:03 ticagrelor [From Brilinta] AdvReac Severe Shortness Verified 12/05/21 14:03 of breath varenicline [From Chantix] AdvReac Severe Other Verified 12/05/21 14:03 Family History Other Cancer Surgical History History of coronary artery stent placement (12/21/19) Social History Smoking Status: Current every day smoker tobacco type: cigarettes ROS ROS ED Constitutional Constitutional ED: Denies chills, fever(s) or sweats Eyes Eyes: Denies change in vision ENT ENT ED: Denies dysphagia or sore throat Cardiovascular Cardiovascular: Reports chest pain; Denies leg edema, palpitations or racing heartbeat Respiratory/Chest Respiratory/Chest: Reports cough, dyspnea and dyspnea on exertion Gastrointestinal Gastrointestinal: Denies abdominal pain, diarrhea, nausea or vomiting Genitourinary Genitourinary ED: Reports dysuria; Denies hematuria or urinary frequency Musculoskeletal Musculoskeletal: Denies back pain, extremity pain or neck pain Integumentary Denies rash or wounds Neurologic Neurologic: Reports headache(s); Denies paresthesias or weakness EXAM Physical Exam Const Vital Signs: 12/05/21 11:03 12/05/21 12:04 12/05/21 13:07 Temperature 95.6 F L Temperature Source Temporal Pulse Rate 71 82 Respiratory Rate 18 19 H Respiratory Effort Normal Non-Labored Respiratory Pattern Normal Blood Pressure 119/51 L 138/82 H Blood Pressure Mean 73 100 Pulse Ox 94 96 Oxygen Delivery Method Room Air Positive well nourished and well developed General Appearance ED: well developed and NAD HEENT HEENT Narrative: Mild dry mucosal membranes normocephalic and atraumatic Eyes PERRL, EOMs intact bilaterally and conjunctivae normal General Eye ED: Yes normal appearance of both eyes Neck no lymphadenopathy and supple General: Negative for tenderness Chest Wall Chest: Negative for tenderness Resp normal respiratory effort and normal air movement Effort and Inspection: symmetric chest movement; Negative for respiratory distress Cardio regular rate, regular rhythm and no murmurs Peripheral Pulses: pulses 2+ throughout GI normal to inspection, nondistended, normoactive bowel sounds and non-tender Palpation: Negative for guarding or rebound tenderness present Back/Spine no CVA tenderness and no thoracic nor lumbar tenderness Extremity normal to inspection Extremity Narrative: Mild lower extremity edema. Pulses intact x4. General Extremety ED: Yes edema; Negative for tenderness General Extremity: edema Neuro oriented x3 and no sensory deficits noted Sensorium / Orientation: awake and alert Skin no rashes or lesions noted and no wounds MDM MDM MDM Narrative Medical decision making narrative: Patient vital signs stable, progressing symptoms more so over the past couple weeks. EKG cardiac work-up was normal. BNP normal. Urine did note infection culture sent. She is currently 1 dose into her Macrobid. She denies exertional worsening chest symptoms. Her creatinine is 1.3 slightly up 1.9. She was given nausea medicines which improved her symptoms. Patient with persistent chest discomfort negative troponin less likely acute coronary syndrome. After work-up I did discuss with her resource recovery engineer Dr. Rasmussen, discussed patient's history work-up and findings. He did not feel she required hospitalization. She did have appointment at 2 PM and 1/2-hour, he states to have her seen on her appointment with the nurse practitioner in his office and they will evaluate and have a plan of care as an outpatient. This was relayed to patient and daughter who understands and agrees with plan. Patient will finish her antibiotics written for her urinary tract infection. Discharge up to the office. Patient is being discharged under pandemic conditions under declared global, national and state disaster activation, with limited medical resources. Patient and community understands this. Results discussed in layman's terms to the patient satisfaction. All questions answered in layman's terms. Patient understands importance of follow-up care as directed. Patient has been instructed to return to the ED immediately if new symptoms, problems, or questions occur. We mutually agree with the plan of disposition. The patient understand that they may call or return with any questions or concerns at any time. Lab Data Attestation: I reviewed the patient's lab results. Labs: Laboratory Results - last 24 hr 12/05/21 12/05/21 12/05/21 11:50 11:50 11:50 WBC 10.8 RBC 4.99 Hgb 14.3 Hct 43.6 MCV 87.4 MCH 28.7 MCHC 32.8 RDW Std Deviation 44.2 H RDW Coeff of Akl 14.1 Plt Count 307 MPV 10.6 Immature Gran % (Auto) 1.600 H Neut % (Auto) 84.2 H Lymph % (Auto) 4.6 L Isabella % (Auto) 5.5 Eos % (Auto) 3.7 Baso % (Auto) 0.4 Absolute Neuts (auto) 9.1 H Absolute Lymphs (auto) 0.50 L Nucleated RBC % 0 Differential Comment COMMENT Sodium 136 Potassium 3.7 Chloride 102 Carbon Dioxide 25.0 Anion Gap 9 BUN 25 H Creatinine 1.30 H Estim Creat Clear Calc 27.30 Est GFR (MDRD) Af Amer 51 L Est GFR (MDRD) Non-Af 42 L BUN/Creatinine Ratio 19.2 Glucose 108 H Calcium 9.2 Total Bilirubin 0.40 AST 15 ALT 16 Alkaline Phosphatase 56 Troponin I High Sens 13 B-Natriuretic Peptide 87.0 Total Protein 7.3 Albumin 3.1 L Globulin 4.2 Albumin/Globulin Ratio 0.7 L Urine Color Urine Clarity Urine pH Ur Specific [place] Urine Protein Urine Glucose (UA) Urine Ketones Urine Occult Blood Urine Nitrite Urine Bilirubin Urine Urobilinogen Ur Leukocyte Esterase Urine RBC Urine WBC Ur Squamous Epith Cells Urine Bacteria Urine Mucus 12/05/21 12:46 WBC RBC Hgb Hct MCV MCH MCHC RDW Std Deviation RDW Coeff of Kal Plt Count MPV Immature Gran % (Auto) Neut % (Auto) Lymph % (Auto) Isabella % (Auto) Eos % (Auto) Baso % (Auto) Absolute Neuts (auto) Absolute Lymphs (auto) Nucleated RBC % Differential Comment Sodium Potassium Chloride Carbon Dioxide Anion Gap BUN Creatinine Estim Creat Clear Calc Est GFR (MDRD) Af Amer Est GFR (MDRD) Non-Af BUN/Creatinine Ratio Glucose Calcium Total Bilirubin AST ALT Alkaline Phosphatase Troponin I High Sens B-Natriuretic Peptide Total Protein Albumin Globulin Albumin/Globulin Ratio Urine Color Yellow Urine Clarity Sl. Cloudy Urine pH 6.0 Ur Specific [place] 1.015 Urine Protein 30 H Urine Glucose (UA) Normal Urine Ketones 5 H Urine Occult Blood 10 H Urine Nitrite Negative Urine Bilirubin Negative Urine Urobilinogen 1 H Ur Leukocyte Esterase 500 H Urine RBC 0-5 SEEN Urine WBC 25-50 SEEN Ur Squamous Epith Cells 0-5 SEEN Urine Bacteria 2+ Urine Mucus 0 SEEN Radiography Diagnostic Testing: Clinical Impression(s) from Imaging Studies Chest X-Ray 12/05/21 12:11 IMPRESSION: Hyperinflation. The lungs are clear. Stable examination. Electronically Signed: Amador Lee MD at 12:23 EST , EKG Initial EKG: Attestation: I personally reviewed and interpreted this EKG as follows: Comments: Sinus rate of 68, no ST or T wave changes. Discharge Plan Triage Chief Complaint: General Illness ED Provider: Mynor Emery Dx/Rx/DC Orders Clinical Impression: Dyspnea, Chest pain, Near syncope, Acute UTI Instructions: Urinary Tract Infections in Women, ED Chest Pain, Uncertain Cause, ED Dyspnea Prescriptions: No Action levothyroxine 137 MCG tablet 125 mcg PO DAILY RF: 0 clopidogrel 75 MG tablet 75 mg PO DAILY RF: 0 citalopram 20 MG tablet 20 mg PO DAILY RF: 0 aspirin 81 MG tablet,chewable 81 mg PO DAILY@0800 RF: 0 losartan 100 MG tablet 100 mg PO DAILY RF: 0 rosuvastatin 5 MG tablet 5 mg PO DAILY RF: 0 metoprolol succinate 100 mg tablet extended release 24 hr 100 mg PO DAILY RF: 0 tramadol 50 MG tablet 50 mg PO Q6H PRN PRN (Reason: Pain Score 1-10) RF: 0 omeprazole 40 mg capsule,delayed release(DR/EC) 40 mg PO DAILY RF: 0 nitrofurantoin monohyd/m-cryst 100 mg capsule 100 mg PO BID RF: 0 Primary Care Provider: Max Jordan Referrals: Max Jordan MD [Primary Care Provider] - Activity Restrictions/Additional Instructions: Cardiac work-up negative normal troponin normal BNP. Negative Covid testing. L abs no slight renal insufficiency creatinine 1.3. Continue oral fluids. Take your antibiotic for urinary tract infection. Per Dr. Rasmussen, go to your office appointment today to be seen in management from there. Disposition Disposition: Home, Self Care Discharge Date/Time: 12/05/21 13:55
[2021-12-05 12:09] LABS: Absolute Neutrophil Count 9.1 X10^3/uL (2.0-7.7); Basophil# 0.04 X10^3/uL; Basophil% 0.4 % (0-1); Eosinophils% 3.7 % (0-5); Hematocrit 43.6 % (37-47); Hemoglobin 14.3 g/dL (12.0-15.0); Lymphocyte % 4.6 % (19-41); Mean Corp Hgb Conc 32.8 g/dL (32-36); Mean Corpuscular Hgb 28.7 pg (27.0-32.0); Mean Corpuscular Volume 87.4 fL (81-99); Mean Platelet Vol. 10.6 fl (6.2-12.0); Monocyte% 5.5 % (0-10); NRBC Flagged by Analyzer 0 % (0-5); Neutrophil # 9.12 X10^3/uL (2.7-7.7); Neutrophil % 84.2 % (47-70); POSITIVE DIFFERENTIAL YES; Platelet Count 307 K/mm3 (150-450); RBC Distribution Width CV 14.1 % (11.6-14.6); RBC Distribution Width SD 44.2 fl (35.1-43.9); Red Blood Count 4.99 M/mm3 (4.2-5.4); White Blood Count 10.8 K/mm3 (4.4-11.0)
[2021-12-05 12:10] LABS: Differential Indicated SCAN CRITERIA MET
--- NOTE | 2021-12-05 12:11 | RAD_ITS ---
STUDY: X-RAY CHEST REASON FOR EXAM: Female, 81 years old. Dizziness, shortness of breath and chest discomfort. TECHNIQUE: Single AP portable view of the chest. COMPARISON: Comparison is made with prior study dated 01/31/2021. FINDINGS: EKG electrodes are seen. There is hyperinflation of the lungs consistent with chronic obstructive lung disease (COPD). There is no demonstrated pleural abnormality. Normal size heart. Normal mediastinum and fracisco. Normal visualized pulmonary arteries. There is atherosclerotic calcification of the aortic arch with tortuosity. There are diffuse degenerative changes of the visualized thoracic spine. Normal visualized ribs, clavicles, and shoulders. There is no demonstrated abnormality of the visualized soft tissue structures of the upper abdomen. RAD/Chest 1 View (Portable) IMPRESSION: Hyperinflation. The lungs are clear. Stable examination. Electronically Signed: Amador Lee MD at 12:23 EST ,
[2021-12-05 12:21] LABS: ALB/GLOB Ratio 0.7 RATIO (0.9-2.4); AST(SGOT) 15 U/L (15-37); Alanine Aminotransfer ALT/SGPT 16 U/L (13-56); Albumin, Serum 3.1 g/dL (3.2-5.0); Alkaline Phosphatase 56 U/L (45-117); Anion Gap 9 (5-15); BUN 25 mg/dL (7-18); BUN/Creat Ratio 19.2 RATIO (10-20); Calcium,Total 9.2 mg/dL (8.5-10.1); Chloride 102 mmol/L (98-107); EST Glomerular Filtration Rate 42 mL/min (>60); Est Glom Filt Rate - Afr Amer 51 mL/min (>60); Globulin 4.2 g/dL (2.2-4.2); Glucose 108 mg/dL (74-106); Potassium 3.7 mmol/L (3.5-5.1); Protein, Total 7.3 g/dL (6.4-8.2); Sodium Level 136 mmol/L (136-145); Troponin-I HS 13 pg/mL (3.0-54.0)
[2021-12-05] MEDS: Ondansetron 4 MG/2 ML Vial IV (12:25)
[2021-12-05 12:54] LABS: Mucous, Urine 0 SEEN /hpf (<or=2+)
[2021-12-05 12:57] LABS: Color, Urine Yellow (Yellow); Glucose, Dipstick Normal (Normal); Ketone-Dipstick 5 mg/dl (Negative); Leukocyte Esterase-Dipstick 500 /ul (Negative); Nitrite-Dipstick Negative (Negative); Occult Blood-Urine 10 /ul (Negative); Protein-Dipstick 30 mg/dl (Negative); Specific Gravity, Urine 1.015 (1.002-1.030); Urine Bilirubin Dipstick Negative (Negative); Urine Clarity Sl. Cloudy (Clear); Urine Urobilinogen 1 mg/dl (Normal)
[2021-12-05 13:05] LABS: Bacteria 2+ /hpf (None Seen); Red Blood Cells-Urine 0-5 SEEN /hpf (0-5); Squamous Epithelial Cells - UA 0-5 SEEN /hpf (5-10); White Blood Cells 25-50 SEEN /hpf (0-5)
[2021-12-05 13:07] VITALS: BP 138/82; PULSE 82; RESP 19; O2SAT 96
== END 2021-12-05 13:55 | disposition home or self-care (01) ==
PROVIDERS: Emergency Provider Emergency Medicine; PCP Family Medicine; Visit Provider Emergency Medicine
DX: R06.09 Other forms of dyspnea (principal); I11.0 Hypertensive heart disease with heart failure; I50.32 Chronic diastolic (congestive) heart failure; R55 Syncope and collapse; R07.89 Other chest pain; F17.210 Nicotine dependence, cigarettes, uncomplicated; I25.10 Atherosclerotic heart disease of native coronary artery without angina pectoris; E78.5 Hyperlipidemia, unspecified; E03.9 Hypothyroidism, unspecified; N39.0 Urinary tract infection, site not specified; I25.2 Old myocardial infarction; E66.9 Obesity, unspecified; Z68.31 Body mass index [BMI] 31.0-31.9, adult; Z95.5 Presence of coronary angioplasty implant and graft; Z79.82 Long term (current) use of aspirin; Z79.02 Long term (current) use of antithrombotics/antiplatelets; Z79.899 Other long term (current) drug therapy
CPT/HCPCS: 71045; 80053; 81001; 83880; 84484; 85025; 87086; 87088; 87426; 93005; 96374; 99284; J2405

== ENCOUNTER → 2022-04-13 | Outpatient (CLI) | payer MEDICARE, SELFPAY ==
[2021-12-05 11:03] VITALS: BMI 29.2
--- NOTE | 2022-04-14 06:49 | PFT ---
INTRODUCTION: The patient is an 81-year-old female that presents for pulmonary function studies secondary to a diagnosis of dyspnea. Respiratory therapy reported good patient. Bronchodilators were used during testing. INTERPRETATION: Forced expiration spirometry demonstrates no evidence of a large airways obstructive ventilatory defect. There was no significant response to aerosolized bronchodilators. Spirograms are of good quality and plateau normally. Body plethysmography was performed and reveals lung volumes to be within normal limits. Diffusing capacity by single breath CO is reduced at 65% of predicted. IMPRESSION: Isolated mild reduction in diffusing capacity.
== END | disposition home or self-care (01) ==
LOC: PSN 12:32
PROVIDERS: PCP Family Medicine; Referring Provider Internal Medicine Critical Care Medicine; Visit Provider Internal Medicine Critical Care Medicine
DX: R06.00 Dyspnea, unspecified (principal)
CPT/HCPCS: 94060; 94726; 94729

== ENCOUNTER → 2022-04-20 | Outpatient (CLI) | payer MEDICARE, SELFPAY ==
[2021-12-05 11:03] VITALS: BMI 29.2
[2022-04-20 12:30] VITALS: PULSE 66; PULSE 72; PULSE 78; PULSE 84; PULSE 87; PULSE 94; O2SAT 93; O2SAT 94; O2SAT 95; O2SAT 96
--- NOTE | 2022-04-21 08:17 | WT_ITS ---
PSN 6 Minute Walk Test 6 Minute Walk Test 6 Minute Walk Test: 6 Minute Walk Test PSN:6-Minute Walk Test Start: 04/20/22 12:57 Freq: Status: Active Protocol: RESP.6MINW Document 04/20/22 12:30 [facility] (Rec: 04/20/22 13:01 [facility] [id number]) 6 Minute Walk Test Date Performed 04/20/22 Time Performed 12:30 Height 5 ft 4 in Weight: 78.471 kg Weight in Pounds 173.[address]: Dr PICKENS Assistive device used: None Pre-test Oxygen Delivery Method Room Air Pulse Ox (%) 96 Pulse Rate (60-100 beats/min) 66 Dyspnea Roberto Scale (0-10) 0 Exertion Roberto Scale (6-20) 6 1st minute Oxygen Delivery Method Room Air Pulse Ox (%) 93 Pulse Rate (60-100 beats/min) 78 2nd minute Oxygen Delivery Method Room Air Pulse Ox (%) 94 Pulse Rate (60-100 beats/min) 84 3rd minute Oxygen Delivery Method Room Air Pulse Rate (60-100 beats/min) 94 Dyspnea Roberto Scale (0-10) 86 4th minute Oxygen Delivery Method Room Air Pulse Ox (%) 95 Pulse Rate (60-100 beats/min) 87 5th minute Oxygen Delivery Method Nasal Cannula Pulse Rate (60-100 beats/min) 94 Dyspnea Roberto Scale (0-10) 87 6th minute Oxygen Delivery Method Room Air Pulse Ox (%) 95 Pulse Rate (60-100 beats/min) 87 Dyspnea Roberto Scale (0-10) 1 Exertion Roberto Scale (6-20) 13 Post-test Oxygen Delivery Method Room Air Pulse Ox (%) 96 Pulse Rate (60-100 beats/min) 72 Full Laps Walked 13 Partial Lap, Number of Tiles Walked 0 Total Distance Walked (ft) 767 Interpretation Interpretation: The patient ambulated 767 feet over the course of 6 minutes beginning on room air without assistive devices. Pretesting oxygen saturation was noted to be 96% on room air. With ambulation, the rd oxygen saturation was 93%. There was no significant exertional oxygen desaturation. Recommendations Recommendations: There is no indication for the use of supplemental oxygen at this time.
== END | disposition home or self-care (01) ==
LOC: PSN 12:39
PROVIDERS: PCP Family Medicine; Referring Provider Internal Medicine Critical Care Medicine; Visit Provider Internal Medicine Critical Care Medicine
DX: R06.00 Dyspnea, unspecified (principal)
CPT/HCPCS: 94618

== ENCOUNTER 2023-05-06 15:25 | Emergency (ER) | payer MEDICARE, SELFPAY ==
[2021-12-05 11:03] VITALS: BMI 29.2
[2023-05-06] VITALS (24 sets, daily range): BP systolic 149–184; BP diastolic 52–112; PULSE 51–58; RESP 9–23; TEMP 36.8; O2SAT 92–95; BMI 29.7
--- NOTE | 2023-05-06 15:57 | EKG12_ITS ---
Test Reason : CP Blood Pressure : / mmHG Vent. Rate : 052 BPM Atrial Rate : 052 BPM P-R Int : 118 ms QRS Dur : 080 ms QT Int : 494 ms P-R-T Axes : 039 032 061 degrees QTc Int : 459 ms Sinus bradycardia Minimal voltage criteria for LVH, may be normal variant ( Sokolow-Glynn ) Nonspecific ST and T wave abnormality Abnormal ECG Confirmed by NEEL US, LACEY ([id number]), editor magazine BRAN ZALDIVAR ([id number]) on 05/10/2023 12:54:51 PM Referred By: TL Confirmed By:LACEY SHAIKH MD
--- NOTE | 2023-05-06 16:05 | RAD_ITS ---
STUDY: X-RAY CHEST REASON FOR EXAM: Female, 82 years old. chest pain TECHNIQUE: AP portable COMPARISON: December 05, 2021 FINDINGS: Lungs are mildly hyperinflated but clear.. There is no demonstrated pleural abnormality. Normal size heart. Normal mediastinum and fracisco. Normal visualized pulmonary arteries. Mildly calcified aortic arch and descending thoracic aorta. Dorsal spine demonstrates mild degenerative change. Normal visualized ribs, clavicles, and shoulders. There is no demonstrated abnormality of the visualized soft tissue structures of the upper abdomen. No significant change since prior exam RAD/Chest 1 View (Portable) IMPRESSION: Mild hyperinflation. No acute cardiopulmonary pathology Electronically Signed: Max Ramírez MD at 16:18 EDT ,
[2023-05-06 16:18] LABS: Absolute Lymphocyte Count 2.52 X10^3/uL (0.83-4.51); Absolute Neutrophil Count 5.1 X10^3/uL (2.0-7.7); Basophil# 0.07 X10^3/uL; Basophil% 0.8 % (0-1); Eosinophil# 0.24 X10^3/uL; Eosinophils% 2.7 % (0-5); Hematocrit 43.7 % (37-47); Hemoglobin 14.5 g/dL (12.0-15.0); Lymphocyte # 2.52 X10^3/ul (0.83-4.51); Lymphocyte % 28.7 % (19-41); Mean Corp Hgb Conc 33.2 g/dL (32-36); Mean Corpuscular Hgb 29.1 pg (27.0-32.0); Mean Corpuscular Volume 87.6 fL (81-99); Monocyte# 0.82 X10^3/uL; Monocyte% 9.3 % (0-10); NRBC Flagged by Analyzer 0 % (0-5); Neutrophil # 5.11 X10^3/uL (2.7-7.7); Neutrophil % 58.3 % (47-70); Platelet Count 266 K/mm3 (150-450); RBC Distribution Width CV 14.6 % (11.6-14.6); RBC Distribution Width SD 46.8 fl (35.1-43.9); Red Blood Count 4.99 M/mm3 (4.2-5.4); White Blood Count 8.8 K/mm3 (4.4-11.0)
[2023-05-06 16:35] LABS: Anion Gap 5 (5-15); BUN 27 mg/dL (7-18); BUN/Creat Ratio 19.4 RATIO (10-20); Calcium,Total 9.4 mg/dL (8.5-10.1); Chloride 99 mmol/L (98-107); Creatinine, Serum 1.39 mg/dL (0.55-1.02); EST Glomerular Filtration Rate 39 mL/min (>60); Est Glom Filt Rate - Afr Amer 47 mL/min (>60); Estimated Creatinine Clearance 27.41 ml/min; Glucose 103 mg/dL (74-106); Potassium 4.4 mmol/L (3.5-5.1); Sodium Level 136 mmol/L (136-145); Troponin-I HS (w/2H Reflex) 8 pg/mL (3.0-54.0)
[2023-05-06 16:52] LABS: D-Dimer Quantitative (DVT/PE) 0.55 FEU/ug/m (0.27-0.49)
--- NOTE | 2023-05-06 17:13 | ED.VIS.CHEST ---
HPI History of Present Illness Chief Complaint: Chest Pain Informant: patient Narrative Narrative: Patient presents with right-sided chest pain. This started 2 or so hours ago. She describes an area under the breast that wraps around to her back. She states that sharp in her hurts in that whole area. But it does not hurt taking a deep breath. She has chronic severe dyspnea but it is no different than normal and she is not dyspneic sitting in bed. No coughing. She does have a history of heart disease and has had stents in the past. They think the last stents were 2 or 3 years ago. But she states this is unlike her heart pain. She also has no nausea vomiting diaphoresis or lightheadedness. She has no known injury. She used to be on Plavix but stopped that so she could start Celebrex for a lot of arthritic pain. [facility] Medical History Anxiety and depression Atherosclerosis of coronary artery of [place] heart without angina pectoris CAD (coronary artery disease) Chronic diastolic (congestive) heart failure COPD (chronic obstructive pulmonary disease) Essential hypertension Essential hypertension Graves disease Heart attack History of non-ST elevation myocardial infarction (NSTEMI) (12/21/19) HLD (hyperlipidemia) Hypothyroidism Left ventricular diastolic dysfunction Nicotine dependence Obesity MATT (obstructive sleep apnea) Osteoarthritis Personal history of colonic polyps Tobacco abuse Trigger middle finger of left hand Vertigo Home Medications aspirin 81 mg chewable tablet 81 mg PO DAILY@0800 heart health 05/07/20 [History Last Taken 05/06/20] clopidogrel 75 mg tablet 75 mg PO DAILY blood thinner 05/07/20 [History Last Taken 05/06/20] rosuvastatin 5 mg tablet 5 mg PO DAILY cholesterol 05/07/20 [History Last Taken 05/06/20] metoprolol succinate 100 mg tablet,extended release 24 hr 100 mg PO DAILY heart 12/05/21 [History Last Taken Unknown] losartan 100 mg tablet 100 mg PO BID bp 01/28/22 [History Last Taken Unknown] tramadol 50 mg tablet 50 mg PO Q8H PRN Pain Score 1-10 01/28/22 [History Last Taken Unknown] citalopram 40 mg tablet 40 mg PO DAILY 01/29/22 [History Last Taken Unknown] levothyroxine 125 mcg tablet 125 mcg PO DAILY 01/29/22 [History Last Taken Unknown] omeprazole 40 mg capsule,delayed release 40 mg PO DAILY 01/29/22 [History Last Taken Unknown] albuterol sulfate 90 mcg/actuation aerosol inhaler 2 puff inhalation Q4H #8.5 grams 05/15/22 [Rx Last Taken Unknown] fluticasone propionate 100 mcg/actuation blister powder for inhalation (Flovent Diskus) 2 inh inhalation BID #3 ea 05/15/22 [Rx Last Taken Unknown] Allergy/AdvReac Type Severity Reaction Status Date / Time iodine Allergy Severe Angioedema Verified 05/01/22 10:04 guaifenesin [From Mucinex] Allergy Mild Other Verified 05/01/22 10:04 ticagrelor [From Brilinta] AdvReac Severe Shortness Verified 05/01/22 10:04 of breath varenicline [From Chantix] AdvReac Severe Other Verified 05/01/22 10:04 Family History Father CAD (coronary artery disease) Prostate cancer Brother Alzheimer's disease Daughter Breast cancer Daughter Breast cancer Surgical History History of coronary artery stent placement (12/21/19) Social History Smoking Status: Current every day smoker tobacco type: cigarettes Tobacco: How many years used: 45 Electronic Cigarette Use: with nicotine second hand exposure: No alcohol intake: current alcohol intake frequency: a few times a week substance use type: does not use ROS ROS ED ROS Narrative A complete review of systems was performed and is negative except as documented in the history of present illness. Some specific details below. Constitutional: No recent fevers or chills. EYE: No discharge, visual complaints, or pain. ENT: No difficulty swallowing. No swelling. No pain. No reflux symptoms. CV: See history of present illness. Of note, the patient is known to have a mass in the right breast. She has refused evaluation for this. Respiratory: See history of present illness. Her dyspnea is chronic and has not changed at all with this. GI: No abdominal pain. No nausea vomiting diarrhea. No blood in stool. : No frequency dysuria or hematuria. Musculoskeletal: No recent trauma. No pains. No swelling. She does have a history of dusky and occasionally blue toes. But she has refused work-up for this. She feels that she is 82 and does not want to go through treatment for this. Skin: No rash. Nondiaphoretic. Neuro: No weakness or numbness. Endocrine: No polyuria or polydipsia. EXAM Physical Exam Narrative Exam Narrative: CONSTITUTIONAL: Patient is nontoxic in appearance. The patient looks comfortable. Work of breathing looks normal. HEENT: No notable trauma. Mucous membranes moist. No sinus tenderness. No indication of pain with swallowing. EYES: No conjunctival injection. No proptosis. NECK:No JVD. No stridor. CARDIOVASCULAR: Mildly bradycardic rate. Regular rhythm. No notable murmur. No JVD. Tones are not muffled. RESPIRATORY: No respiratory distress. Breathing is unlabored. No wheezes spite her history of significant COPD. No rhonchi. No rales. No pain with a deep breath. I do not see any rashes. Nor do I get any notable tenderness. GASTROINTESTINAL: Not distended. Bowel sounds are normal. No tenderness. No guarding. No rebound. No palpable mass. No bruit is heard. GENITOURINARY: No tenderness over the bladder. No CVA tenderness. MUSCULOSKELETAL: Atraumatic. No peripheral edema. No cord. No tenderness along the deep venous system. No asymmetry. No distended veins. She does not have cyanosis at this time. Even the family states her legs look better than they normally do. But when she she squeezes her toes or you squeeze them she does have slow capillary refill. That is chronic. She states actually they look better than normal right now. NEUROLOGICAL: Patient is alert and appropriate. No focal deficit noted. SKIN: No noted rashes. No diaphoresis. PSYCHIATRIC: Patient is calm. Mood is appropriate. Const Vital Signs: 05/06/23 15:26 05/06/23 15:57 05/06/23 16:04 Temperature 98.3 F Temperature Source Temporal Pulse Rate 56 L Respiratory Rate 18 Respiratory Effort Normal Non-Labored Blood Pressure 171/66 H Blood Pressure Mean 101 Pulse Ox 95 Oxygen Delivery Method Room Air Room Air 05/06/23 16:03 05/06/23 16:10 05/06/23 16:15 Temperature Temperature Source Pulse Rate 53 L 56 L 56 L Respiratory Rate 11 L 16 16 Respiratory Effort Blood Pressure 178/57 H Blood Pressure Mean 91 Pulse Ox 93 93 93 Oxygen Delivery Method 05/06/23 16:20 05/06/23 16:30 05/06/23 16:40 Temperature Temperature Source Pulse Rate 54 L 58 L 52 L Respiratory Rate 20 H 21 H 21 H Respiratory Effort Blood Pressure 153/112 H Blood Pressure Mean 123 Pulse Ox 93 94 93 Oxygen Delivery Method 05/06/23 16:45 05/06/23 16:50 05/06/23 17:00 Temperature Temperature Source Pulse Rate 52 L 51 L 53 L Respiratory Rate 18 13 18 Respiratory Effort Blood Pressure 149/54 H 161/76 H Blood Pressure Mean 80 100 Pulse Ox 93 94 92 Oxygen Delivery Method 05/06/23 17:15 05/06/23 17:20 05/06/23 17:30 Temperature Temperature Source Pulse Rate 53 L 51 L 53 L Respiratory Rate 9 L 12 17 Respiratory Effort Blood Pressure 178/52 H 184/58 H Blood Pressure Mean 84 91 Pulse Ox 93 95 94 Oxygen Delivery Method 05/06/23 17:40 05/06/23 17:45 05/06/23 17:50 Temperature Temperature Source Pulse Rate 53 L 53 L 54 L Respiratory Rate 21 H 14 15 Respiratory Effort Blood Pressure 184/74 H Blood Pressure Mean 105 Pulse Ox 95 94 95 Oxygen Delivery Method 05/06/23 18:00 05/06/23 18:10 05/06/23 18:15 Temperature Temperature Source Pulse Rate 55 L 54 L 51 L Respiratory Rate 15 23 H 15 Respiratory Effort Blood Pressure 171/53 H 159/87 H Blood Pressure Mean 87 106 Pulse Ox 94 94 94 Oxygen Delivery Method 05/06/23 18:20 05/06/23 18:30 05/06/23 18:40 Temperature Temperature Source Pulse Rate 53 L 51 L 54 L Respiratory Rate 13 12 18 Respiratory Effort Blood Pressure 171/62 H Blood Pressure Mean 92 Pulse Ox 94 93 92 Oxygen Delivery Method 05/06/23 18:45 Temperature Temperature Source Pulse Rate 53 L Respiratory Rate 17 Respiratory Effort Blood Pressure 159/108 H Blood Pressure Mean 123 Pulse Ox 94 Oxygen Delivery Method MDM MDM MDM Narrative Medical decision making narrative: Patient CBC is normal. Patient's electrolytes are normal. Patient's D-dimer age-adjusted is normal. Patient's troponin and repeat troponin are both 8 and normal. My independent interpretation of her single view AP chest x-ray showed no acute process. Final reading is mild hyperinflation. Patient feels well. Her daughter thinks this might be indigestion or she hurt something. Symptoms are really better now. Patient does not feel ill. She does not want to stay in the hospital. Since she feels well, her EKG and blood work is not showing any acute process I think it is reasonable we get her home. We did discuss reasons to return. She does live at home with family and can be watched. Lab Data Attestation: I reviewed the patient's lab results. Labs: Laboratory Results - last 24 hr 05/06/23 05/06/23 15:50 18:15 WBC 8.8 RBC 4.99 Hgb 14.5 Hct 43.7 MCV 87.6 MCH 29.1 MCHC 33.2 RDW Std Deviation 46.8 H RDW Coeff of Kal 14.6 Plt Count 266 MPV 11.0 Immature Gran % (Auto) 0.200 Neut % (Auto) 58.3 Lymph % (Auto) 28.7 [place] % (Auto) 9.3 Eos % (Auto) 2.7 Baso % (Auto) 0.8 Absolute Neuts (auto) 5.1 Absolute Lymphs (auto) 2.52 Nucleated RBC % 0 D-Dimer Quant (PE/DVT) 0.55 H* Sodium 136 Potassium 4.4 Chloride 99 Carbon Dioxide 32.0 Anion Gap 5 BUN 27 H Creatinine 1.39 H Estim Creat Clear Calc 27.41 Est GFR (MDRD) Af Amer 47 L Est GFR (MDRD) Non-Af 39 L BUN/Creatinine Ratio 19.4 Glucose 103 Calcium 9.4 Troponin I High Sens 8 8 Radiography Diagnostic Testing: Clinical Impression(s) from Imaging Studies Chest X-Ray 05/06/23 16:05 IMPRESSION: Mild hyperinflation. No acute cardiopulmonary pathology Electronically Signed: Max Ramírez MD at 16:18 EDT , EKG Initial EKG: Comments: My independent interpretation the patient's EKG shows sinus rhythm with bradycardic rate of 52. Some indication of LVH with some secondary changes. Nonspecific ST change but no sign of infarct. No ventricular ectopy. IL interval, QRS duration and QTc are within normal. Discharge Plan Triage Chief Complaint: Chest Pain ED Provider: Flavio Echavarria Dx/Rx/DC Orders Clinical Impression: Right-sided chest pain Instructions: ED Chest Pain, Uncertain Cause Prescriptions: No Action omeprazole 40 mg capsule,delayed release(DR/EC) 40 mg PO DAILY citalopram 40 mg tablet 40 mg PO DAILY levothyroxine 125 mcg tablet 125 mcg PO DAILY clopidogrel 75 MG tablet 75 mg PO DAILY aspirin 81 MG tablet,chewable 81 mg PO DAILY@0800 rosuvastatin 5 MG tablet 5 mg PO DAILY metoprolol succinate 100 mg tablet extended release 24 hr 100 mg PO DAILY losartan 100 mg tablet 100 mg PO BID tramadol 50 mg tablet 50 mg PO Q8H PRN (Reason: Pain Score 1-10) albuterol sulfate 90 mcg/actuation HFA aerosol inhaler 2 puff inhalation Q4H Qty: 8.5 11RF Flovent Diskus 100 mcg/actuation blister with device 2 inh inhalation BID Qty: 3 3RF Primary Care Provider: Max Jordan Referrals: Emmett Rasmussen MD [Med Staff - Active Staff] - 3-5 Days if not improving Max Jordan MD [Primary Care Provider] - Disposition Disposition: Home, Self Care
[2023-05-06 18:11] LABS: Reflex Troponin-HS? (from REC) Y
[2023-05-06 18:37] LABS: Troponin-I HS 8 pg/mL (3.0-54.0)
== END 2023-05-06 19:25 | disposition home or self-care (01) ==
PROVIDERS: Emergency Provider Emergency Medicine; PCP Family Medicine; Visit Provider Emergency Medicine
DX: R07.9 Chest pain, unspecified (principal); J44.9 Chronic obstructive pulmonary disease, unspecified; I11.0 Hypertensive heart disease with heart failure; I50.32 Chronic diastolic (congestive) heart failure; E78.5 Hyperlipidemia, unspecified; I25.10 Atherosclerotic heart disease of native coronary artery without angina pectoris; M19.90 Unspecified osteoarthritis, unspecified site; F17.210 Nicotine dependence, cigarettes, uncomplicated; Z79.899 Other long term (current) drug therapy
CPT/HCPCS: 71045; 80048; 84484; 85025; 85379; 93005; 99284; A4216

== ENCOUNTER 2023-05-12 11:20 | Emergency (ER) | payer MEDICARE, SELFPAY ==
[2021-12-05 11:03] VITALS: BMI 29.2
[2023-05-12 11:20] VITALS: BP 112/91
[2023-05-12 11:21] VITALS: PULSE 61; RESP 18; TEMP 36.8; BMI 29.8
--- NOTE | 2023-05-12 11:41 | EKG12_ITS ---
Test Reason : CP Blood Pressure : / mmHG Vent. Rate : 061 BPM Atrial Rate : 061 BPM P-R Int : 132 ms QRS Dur : 078 ms QT Int : 470 ms P-R-T Axes : 074 055 049 degrees QTc Int : 473 ms Normal sinus rhythm Minimal voltage criteria for LVH, may be normal variant ( Sokolow-Glynn ) Nonspecific ST abnormality Abnormal ECG Confirmed by GERARDO US, GILES ([id number]), social media editor BRAN ZALDIVAR ([id number]) on 05/17/2023 12:45:03 P M Referred By: LAYLA Confirmed By:SAUL CARRILLO MD
--- NOTE | 2023-05-12 11:44 | EDS_ITS ---
HPI History of Present Illness Chief Complaint: Chest Pain Informant: patient Onset/Context/Timing Onset: Today Activity at onset: sudden Quality: Positive for Sharp Location: Left Chest Current Severity: Mild Maximum Severity: Moderate Associated Symptoms: Positive for Acid Reflux Narrative Narrative: Patient presents secondary to chest pain after eating about 30 minutes ago. She states she has a sharp pain just believe the left ribs. She has had increased belching as well. She tried some Pepcid without improvement. She states that she has had 2 prior heart attacks and this is how she felt about a week before her last heart attack. [facility] Medical History (Updated 05/12/23 @ 15:[address] Chuyita Mccarty MD) Anxiety and depression Atherosclerosis of coronary artery of [place] heart without angina pectoris CAD (coronary artery disease) Chronic diastolic (congestive) heart failure COPD (chronic obstructive pulmonary disease) Essential hypertension Graves disease Heart attack History of non-ST elevation myocardial infarction (NSTEMI) (12/21/19) HLD (hyperlipidemia) Hypothyroidism Left ventricular diastolic dysfunction Nicotine dependence Obesity MATT (obstructive sleep apnea) Osteoarthritis Personal history of colonic polyps Tobacco abuse Trigger middle finger of left hand Vertigo Home Medications aspirin 81 mg chewable tablet 81 mg PO DAILY@0800 heart health 05/07/20 [History Last Taken 05/06/20] clopidogrel 75 mg tablet 75 mg PO DAILY blood thinner 05/07/20 [History Last Taken 05/06/20] rosuvastatin 5 mg tablet 5 mg PO DAILY cholesterol 05/07/20 [History Last Taken 05/06/20] metoprolol succinate 100 mg tablet,extended release 24 hr 100 mg PO DAILY heart 12/05/21 [History Last Taken Unknown] losartan 100 mg tablet 100 mg PO BID bp 01/28/22 [History Last Taken Unknown] tramadol 50 mg tablet 50 mg PO Q12H PRN Pain Score 1-10 01/28/22 [History Last Taken Unknown] citalopram 40 mg tablet 40 mg PO DAILY 01/29/22 [History Last Taken Unknown] levothyroxine 125 mcg tablet 125 mcg PO DAILY 01/29/22 [History Last Taken Unknown] omeprazole 40 mg capsule,delayed release 40 mg PO BID 01/29/22 [History Last Taken Unknown] albuterol sulfate 90 mcg/actuation aerosol inhaler 2 puff inhalation Q4H #8.5 grams 05/15/22 [Rx Last Taken Unknown] fluticasone propionate 100 mcg/actuation blister powder for inhalation (Flovent Diskus) 2 inh inhalation BID #3 ea 05/15/22 [Rx Last Taken Unknown] Allergy/AdvReac Type Severity Reaction Status Date / Time iodine Allergy Severe Angioedema Verified 05/12/23 11:23 guaifenesin [From Mucinex] Allergy Mild Other Verified 05/12/23 11:23 ticagrelor [From Brilinta] AdvReac Severe Shortness Verified 05/12/23 11:23 of breath varenicline [From Chantix] AdvReac Severe Other Verified 05/12/23 11:23 Family History Father CAD (coronary artery disease) Prostate cancer Brother Alzheimer's disease Daughter Breast cancer Daughter Breast cancer Surgical History History of coronary artery stent placement (12/21/19) Social History Smoking Status: Current every day smoker tobacco type: e-cigarettes Tobacco: How many years used: 45 Electronic Cigarette Use: with nicotine second hand exposure: No alcohol intake: current alcohol intake frequency: a few times a week substance use type: does not use ROS ROS ED Constitutional Constitutional ED: Denies chills or fever(s) Eyes Eyes: Denies change in vision or discharge from eye(s) ENT ENT ED: Denies discharge from eye(s), rhinorrhea or sore throat Cardiovascular Cardiovascular: Reports chest pain; Denies palpitations Respiratory/Chest Respiratory/Chest: Reports dyspnea; Denies cough Gastrointestinal Gastrointestinal: Reports abdominal pain and other Details: Increased belching ; Denies diarrhea, nausea or vomiting Genitourinary Genitourinary ED: Denies dysuria Musculoskeletal Musculoskeletal: Denies back pain or extremity pain Integumentary Denies Abrasions or rash Neurologic Neurologic: Denies headache(s) or weakness Psychiatric Psychiatric: Denies anxiety or depression Allergic/Immunologic Allergic/Immunologic ED: Denies lip swelling or urticaria EXAM Physical Exam Const Vital Signs: 05/12/23 11:21 05/12/23 11:20 05/12/23 11:25 Temperature 98.2 F Temperature Source Oral Pulse Rate 61 Respiratory Rate 18 Respiratory Effort Short of Breath Blood Pressure 112/91 H Blood Pressure Mean 98 Oxygen Delivery Method Room Air 05/12/23 11:43 Temperature Temperature Source Pulse Rate Respiratory Rate Respiratory Effort Blood Pressure Blood Pressure Mean Oxygen Delivery Method Room Air Positive well nourished and well developed General Appearance ED: well developed HEENT Reports normocephalic and head/scalp atraumatic Eyes PERRL and EOMs intact bilaterally Neck supple Chest Wall inspection of chest normal and palpation of chest normal Resp normal respiratory effort and clear to auscultation bilaterally Cardio regular rate and regular rhythm GI GI Narrative: Mild epigastric tenderness to palpation. Palpation: soft Extremity normal to inspection Neuro oriented x3 and no sensory deficits noted Sensorium / Orientation: alert Motor Exam: strength 5/5 throughout Psych mental status grossly normal Skin no rashes or lesions noted Heart Score History: Slightly/Non-Suspicious ECG: Normal Age: >/= 65 years Risk Factors: >/= 3 Risk Factors or History of CAD Troponin: </= Normal Limit Score: 4 MDM MDM MDM Narrative Medical decision making narrative: Patient had taken 1 baby aspirin prior to arrival. She is given 3 additional baby aspirin along with a GI cocktail and a dose of Protonix. Labwork obtained to evaluate for leukocytosis, anemia, and electrolyte derangement. Chest x-ray obtained to evaluate for acute lung pathology, cardiac size, or mediastinal abnormality. EKG obtained to evaluate for cardiac arrhythmia/ischemia. Lab Data Attestation: I reviewed the patient's lab results. Labs: Laboratory Results - last 24 hr 05/12/23 05/12/23 11:20 14:08 WBC 8.0 RBC 4.95 Hgb 14.2 Hct 44.8 MCV 90.5 MCH 28.7 MCHC 31.7 L RDW Std Deviation 48.7 H RDW Coeff of Kal 14.6 Plt Count 252 MPV 11.2 Immature Gran % (Auto) 0.600 Neut % (Auto) 63.9 Lymph % (Auto) 21.8 [place] % (Auto) 9.4 Eos % (Auto) 3.4 Baso % (Auto) 0.9 Absolute Neuts (auto) 5.1 Absolute Lymphs (auto) 1.74 Nucleated RBC % 0 Sodium 135 L Potassium 4.5 Chloride 103 Carbon Dioxide 29.0 Anion Gap 3 L BUN 25 H Creatinine 1.22 H Estim Creat Clear Calc 31.23 Est GFR (MDRD) Af Amer 54 L Est GFR (MDRD) Non-Af 45 L BUN/Creatinine Ratio 20.5 H Glucose 101 Calcium 9.0 Total Bilirubin 0.40 Direct Bilirubin 0.10 AST 14 L ALT 13 Alkaline Phosphatase 49 Troponin I High Sens 7 7 Total Protein 7.2 Albumin 3.3 Globulin 3.9 Lipase 43 Radiography Chest X-Ray - ED: 1 View, Read by ED Physician and Chronic Changes Diagnostic Testing: Clinical Impression(s) from Imaging Studies Chest X-Ray 05/12/23 11:57 IMPRESSION: Hyperinflation. No acute abnormality is seen. Electronically Signed: Amador Lee MD at 12:22 EDT , EKG Initial EKG: Attestation: I personally reviewed and interpreted this EKG as follows: Interpretation: Sinus Rhythm (Sinus at 61 with no acute ischemia.) Treatment and Re-Evaluation :: CBC is unremarkable with normal white count and hemoglobin. Chemistry studies reveal a BUN 25 and creatinine 1.22. This appears consistent with her baseline. Initial troponin is 7 and 2-hour repeat troponin is also 7. LFTs and lipase a re normal. Chest x-ray per my interpretation feels chronic changes with no acute findings. Radiology interpretation is reviewed and agrees. EKG is sinus with no acute ischemia. On repeat evaluation patient is pain-free and states she is ready to go home. We did discuss with her daughter use of antacids. Return instructions were provided. Discharge Plan Triage Chief Complaint: Chest Pain ED Provider: Chuyita Mccarty Dx/Rx/DC Orders Clinical Impression: Gastroesophageal reflux disease, Chest pain Instructions: ED Chest Pain, Noncardiac, ED GERD (Adult) Prescriptions: No Action omeprazole 40 mg capsule,delayed release(DR/EC) 40 mg PO BID citalopram 40 mg tablet 40 mg PO DAILY levothyroxine 125 mcg tablet 125 mcg PO DAILY clopidogrel 75 MG tablet 75 mg PO DAILY Hold Instructions: PT STATES NOT TAKING aspirin 81 MG tablet,chewable 81 mg PO DAILY@0800 rosuvastatin 5 MG tablet 5 mg PO DAILY metoprolol succinate 100 mg tablet extended release 24 hr 100 mg PO DAILY losartan 100 mg tablet 100 mg PO BID tramadol 50 mg tablet 50 mg PO Q12H PRN (Reason: Pain Score 1-10) albuterol sulfate 90 mcg/actuation HFA aerosol inhaler 2 puff inhalation Q4H Qty: 8.5 11RF Flovent Diskus 100 mcg/actuation blister with device 2 inh inhalation BID Qty: 3 3RF Primary Care Provider: Max Jordan Referrals: Max Jordan MD [Primary Care Provider] - As Needed Disposition Disposition: Home, Self Care
[2023-05-12] MEDS: Aspirin 81 MG TAB.CHEW 243 MG PO (11:50)
[2023-05-12] MEDS: 0.9% Normal Saline 1,000 ML 150 ML IV (11:50)
[2023-05-12 11:56] LABS: Absolute Lymphocyte Count 1.74 X10^3/uL (0.83-4.51); Absolute Neutrophil Count 5.1 X10^3/uL (2.0-7.7); Basophil# 0.07 X10^3/uL; Basophil% 0.9 % (0-1); Eosinophil# 0.27 X10^3/uL; Eosinophils% 3.4 % (0-5); Hematocrit 44.8 % (37-47); Hemoglobin 14.2 g/dL (12.0-15.0); Lymphocyte # 1.74 X10^3/ul (0.83-4.51); Lymphocyte % 21.8 % (19-41); Mean Corp Hgb Conc 31.7 g/dL (32-36); Mean Corpuscular Hgb 28.7 pg (27.0-32.0); Mean Corpuscular Volume 90.5 fL (81-99); Mean Platelet Vol. 11.2 fl (6.2-12.0); Monocyte# 0.75 X10^3/uL; Monocyte% 9.4 % (0-10); NRBC Flagged by Analyzer 0 % (0-5); Neutrophil # 5.12 X10^3/uL (2.7-7.7); Neutrophil % 63.9 % (47-70); Platelet Count 252 K/mm3 (150-450); RBC Distribution Width CV 14.6 % (11.6-14.6); RBC Distribution Width SD 48.7 fl (35.1-43.9); Red Blood Count 4.95 M/mm3 (4.2-5.4)
--- NOTE | 2023-05-12 11:57 | RAD_ITS ---
STUDY: X-RAY CHEST REASON FOR EXAM: Female, 82 years old. Chest pain TECHNIQUE: Single AP portable view of the chest. COMPARISON: Comparison is made with prior study dated May 06, 2023. FINDINGS: EKG electrodes are seen. There is hyperinflation of the lungs consistent with chronic obstructive lung disease (COPD). There is no demonstrated pleural abnormality. Normal size heart. Normal mediastinum and fracisco. Normal visualized pulmonary arteries. There is atherosclerotic calcification of the aortic arch with tortuosity. There are diffuse degenerative changes of the visualized thoracic spine. Normal visualized ribs, clavicles, and shoulders. There is no demonstrated abnormality of the visualized soft tissue structures of the upper abdomen. RAD/Chest 1 View (Portable) IMPRESSION: Hyperinflation. No acute abnormality is seen. Electronically Signed: Amador Lee MD at 12:22 EDT ,
[2023-05-12 12:14] LABS: AST(SGOT) 14 U/L (15-37); Alanine Aminotransfer ALT/SGPT 13 U/L (13-56); Albumin, Serum 3.3 g/dL (3.2-5.0); Alkaline Phosphatase 49 U/L (45-117); Anion Gap 3 (5-15); BUN 25 mg/dL (7-18); BUN/Creat Ratio 20.5 RATIO (10-20); Chloride 103 mmol/L (98-107); Creatinine, Serum 1.22 mg/dL (0.55-1.02); EST Glomerular Filtration Rate 45 mL/min (>60); Est Glom Filt Rate - Afr Amer 54 mL/min (>60); Estimated Creatinine Clearance 31.23 ml/min; Globulin 3.9 g/dL (2.2-4.2); Glucose 101 mg/dL (74-106); Lipase 43 U/L (13-75); Potassium 4.5 mmol/L (3.5-5.1); Protein, Total 7.2 g/dL (6.4-8.2); Sodium Level 135 mmol/L (136-145); Troponin-I HS (w/2H Reflex) 7 pg/mL (3.0-54.0)
[2023-05-12 12:20] VITALS: BP 127/91; PULSE 55
--- NOTE | 2023-05-12 12:37 | ED.RN ---
CALLED PHARMACY X2 ABOUT LIDOCAINE- NOT STOCKED IN ACCUDOSE
[2023-05-12] MEDS: Mag Hydrox/Al Hydrox/Simeth 30 ML UDC PO (12:48)
[2023-05-12 13:20] VITALS: BP 151/69; PULSE 57
[2023-05-12 13:54] LABS: Reflex Troponin-HS? (from REC) Y
[2023-05-12 14:20] VITALS: BP 168/94; PULSE 57
[2023-05-12 14:30] LABS: Troponin-I HS 7 pg/mL (3.0-54.0)
== END 2023-05-12 15:23 | disposition home or self-care (01) ==
PROVIDERS: Emergency Provider Emergency Medicine; PCP Family Medicine; Visit Provider Emergency Medicine
DX: K21.9 Gastro-esophageal reflux disease without esophagitis (principal); J44.9 Chronic obstructive pulmonary disease, unspecified; I11.0 Hypertensive heart disease with heart failure; I50.32 Chronic diastolic (congestive) heart failure; E78.5 Hyperlipidemia, unspecified; F17.290 Nicotine dependence, other tobacco product, uncomplicated; I25.10 Atherosclerotic heart disease of native coronary artery without angina pectoris
CPT/HCPCS: 71045; 80048; 80076; 83690; 84484; 85025; 93005; 96361; 96365; 99284; J7030; A4216

== ENCOUNTER 2023-12-13 18:04 | Emergency (ER) | payer MEDICARE, SELFPAY ==
[2021-12-05 11:03] VITALS: BMI 29.2
[2023-12-13 18:06] VITALS: BP 136/65; PULSE 53; RESP 18; TEMP 35.9; O2SAT 95
[2023-12-13 18:29] LABS: Absolute Lymphocyte Count 2.99 X10^3/uL (0.83-4.51); Absolute Neutrophil Count 5.9 X10^3/uL (2.0-7.7); Basophil# 0.09 X10^3/uL; Basophil% 0.9 % (0-1); Eosinophil# 0.39 X10^3/uL; Eosinophils% 3.8 % (0-5); Hematocrit 42.9 % (37-47); Hemoglobin 13.5 g/dL (12.0-15.0); Lymphocyte # 2.99 X10^3/ul (0.83-4.51); Lymphocyte % 29.1 % (19-41); Mean Corp Hgb Conc 31.5 g/dL (32-36); Mean Corpuscular Hgb 28.2 pg (27.0-32.0); Mean Corpuscular Volume 89.6 fL (81-99); Mean Platelet Vol. 10.5 fl (6.2-12.0); Monocyte% 8.8 % (0-10); NRBC Flagged by Analyzer 0 % (0-5); Neutrophil # 5.86 X10^3/uL (2.7-7.7); Platelet Count 315 K/mm3 (150-450); RBC Distribution Width CV 14.2 % (11.6-14.6); RBC Distribution Width SD 46.3 fl (35.1-43.9); Red Blood Count 4.79 M/mm3 (4.2-5.4); White Blood Count 10.3 K/mm3 (4.4-11.0)
[2023-12-13 18:38] LABS: International Normalized Ratio 0.9; Prothrombin Time (Protime)PT. 12.3 SECONDS (11.7-14.9)
[2023-12-13 18:39] LABS: Partial Thromboplast Time 23.5 Seconds (24.1-36.2)
[2023-12-13 18:45] LABS: Anion Gap 6 (5-15); BUN 26 mg/dL (7-18); BUN/Creat Ratio 21.5 RATIO (10-20); Calcium,Total 9.2 mg/dL (8.5-10.1); Chloride 106 mmol/L (98-107); Creatinine, Serum 1.21 mg/dL (0.55-1.02); EST Glomerular Filtration Rate 45 mL/min (>60); Est Glom Filt Rate - Afr Amer 55 mL/min (>60); Glucose 111 mg/dL (74-106); Potassium 3.8 mmol/L (3.5-5.1); Sodium Level 141 mmol/L (136-145)
--- NOTE | 2023-12-13 19:02 | EX.ED.DYSGE1 ---
HPI History of Present Illness Chief Complaint: Dizziness Informant: patient and family Narrative Narrative: Patient presents with a generalized dizziness and weakness. I talked with her and her daughter. It sounds like the patient has been having more breathing problems progressively over the last year or so. The daughter thinks this is really worsened in the last 6 weeks. It sounds like she has a history of emphysema and uses a rescue inhaler on occasion. But she gets winded with exertion and that is just getting a lot worse. She states when she tries to do things she will get kind of lightheaded. No focal weakness. No true vertigo. No chest pain or pressure. She has a lot of joint pains but those are not new or different. No hemoptysis. She is not on blood thinners. [facility] Medical History Anxiety and depression Atherosclerosis of coronary artery of [place] heart without angina pectoris CAD (coronary artery disease) Chronic diastolic (congestive) heart failure COPD (chronic obstructive pulmonary disease) Essential hypertension Graves disease Heart attack History of non-ST elevation myocardial infarction (NSTEMI) (12/21/19) HLD (hyperlipidemia) Hypothyroidism Left ventricular diastolic dysfunction Nicotine dependence Obesity MATT (obstructive sleep apnea) Osteoarthritis Personal history of colonic polyps Tobacco abuse Trigger middle finger of left hand Vertigo Home Medications aspirin 81 mg chewable tablet 81 mg PO DAILY@0800 heart health 05/07/20 [History Last Taken 05/06/20] rosuvastatin 5 mg tablet 5 mg PO DAILY cholesterol 05/07/20 [History Last Taken 05/06/20] metoprolol succinate 100 mg tablet,extended release 24 hr 100 mg PO DAILY heart 12/05/21 [History Last Taken Unknown] losartan 100 mg tablet 100 mg PO BID bp 01/28/22 [History Last Taken Unknown] tramadol 50 mg tablet 50 mg PO Q12H PRN Pain Score 1-10 01/28/22 [History Last Taken Unknown] citalopram 40 mg tablet 40 mg PO DAILY 01/29/22 [History Last Taken Unknown] levothyroxine 125 mcg tablet 125 mcg PO DAILY 01/29/22 [History Last Taken Unknown] omeprazole 40 mg capsule,delayed release 40 mg PO BID 01/29/22 [History Last Taken Unknown] albuterol sulfate 90 mcg/actuation aerosol inhaler 2 puff inhalation Q4H #8.5 grams 05/15/22 [Rx Last Taken Unknown] amlodipine 5 mg tablet 5 mg PO DAILY 12/13/23 [History Last Taken Unknown] Allergy/AdvReac Type Severity Reaction Status Date / Time iodine Allergy Severe Angioedema Verified 12/13/23 18:06 guaifenesin [From Mucinex] Allergy Mild Other Verified 12/13/23 18:06 ticagrelor [From Brilinta] AdvReac Severe Shortness Verified 12/13/23 18:06 of breath varenicline [From Chantix] AdvReac Severe Other Verified 12/13/23 18:06 Family History Father CAD (coronary artery disease) Prostate cancer Brother Alzheimer's disease Daughter Breast cancer Daughter Breast cancer Surgical History History of coronary artery stent placement (12/21/19) Social History Smoking Status: Current every day smoker tobacco type: e-cigarettes Tobacco: How many years used: 45 Electronic Cigarette Use: with nicotine second hand exposure: No alcohol intake: current alcohol intake frequency: a few times a week substance use type: does not use ROS ROS ED ROS Narrative A complete review of systems was performed and is negative except as documented in the history of present illness. Some specific details below. Constitutional: No recent fevers or chills. Patient and the rest of the family had COVID around [place] but all seem to do okay with it. EYE: No discharge, visual complaints, or pain. ENT: No difficulty swallowing. No swelling. No pain. No reflux symptoms. CV: She denies actual chest pain. Respiratory: See history of present illness. GI: No abdominal pain. No nausea vomiting diarrhea. No blood in stool. : No frequency dysuria or hematuria. She denies any change in urine. Musculoskeletal: No recent trauma. No pains. No swelling. Skin: No rash. Nondiaphoretic. Neuro: No weakness or numbness. Endocrine: No polyuria or polydipsia. EXAM Physical Exam Narrative Exam Narrative: CONSTITUTIONAL: Patient is nontoxic in appearance. The patient looks comfortable. Work of breathing looks normal sitting in bed. Patient denies actual dizziness right now.. HEENT: No notable trauma. Mucous membranes moist. No sinus tenderness. EYES: No conjunctival injection. No pallor. NECK:No JVD. No stridor. CARDIOVASCULAR: Mildly bradycardic rate. Regular rhythm. No notable murmur. No JVD. RESPIRATORY: No respiratory distress. Breathing is unlabored. No wheezes. No rhonchi. No rales. No pain with a deep breath. No chest wall tenderness. Overall her lung sounds good. She is nonhypoxic just sitting in bed. Saturations are normal at 95% on room air. We will walk her to check for desaturation. The daughter is very concerned that her oxygen level drops with any activity. GASTROINTESTINAL: Not distended. Bowel sounds are normal. No tenderness. No guarding. No rebound. No palpable mass. No bruit is heard. GENITOURINARY: No tenderness over the bladder. No CVA tenderness. MUSCULOSKELETAL: Atraumatic. No peripheral edema. No cord. No tenderness along the deep venous system. No asymmetry. No distended veins. NEUROLOGICAL: Patient is alert and appropriate. No focal deficit noted. By history she has no focal deficit either. SKIN: No noted rashes. No diaphoresis. PSYCHIATRIC: Patient is calm. Mood is appropriate. Const Vital Signs: 12/13/23 18:06 12/13/23 19:18 12/13/23 19:18 Temperature 96.7 F L Temperature Source Temporal Pulse Rate 53 L 49 L Respiratory Rate 18 23 H Blood Pressure 136/65 H 122/74 H Blood Pressure Mean 88 90 Pulse Ox 95 94 94 Oxygen Delivery Method Room Air Room Air Room Air 12/13/23 21:08 12/13/23 22:05 Temperature Temperature Source Pulse Rate 61 52 L Respiratory Rate 22 H 18 Blood Pressure 123/53 H 137/56 H Blood Pressure Mean 76 83 Pulse Ox 95 94 Oxygen Delivery Method Room Air Room Air MDM MDM MDM Narrative Medical decision making narrative: Patient's CBC is normal. Patient's electrolytes show no marked abnormalities. She has some mild baseline renal dysfunction that is unchanged. Coags are normal. Troponin is negative at 8. My independent interpretation of her chest x-ray shows no acute process final reading is similar. My independent or potation of her CT of the head shows no acute process and final reading is similar. Urine is cloudy with 25-50 white cells 3+ bacteria and nitrites and leukocyte Estrace. I discussed this with the patient and her daughter. Her daughter states this is what her urine looks like every time. She has no symptoms of UTI. Her to send a culture and treat based off of that. Since she has no fevers chills or symptoms of this I think that is reasonable but I did explain that her urine has all findings of an infection. Although urine does not cause specific dizziness. Patient has had this nonspecific dizziness for some time. She has dyspnea on exertion for a long time. She is not having chest pain with this. Her troponin is negative. She used to get relief with albuterol but now it does not seem to help as much. She has an appointment with pulmonology in 3 days. She will follow-up with her primary physician after. We discussed reasons to return. I explained that her urine will be cultured and if it is positive they will get a call. Patient has also quit smoking recently. This relieved a lot of her GERD symptoms. She states that is completely gone. She also has quit vaping after she learned that it can be bad. Lab Data Attestation: I reviewed the patient's lab results. Labs: Laboratory Results - last 24 hr 12/13/23 12/13/23 18:20 21:45 WBC 10.3 RBC 4.79 Hgb 13.5 Hct 42.9 MCV 89.6 MCH 28.2 MCHC 31.5 L RDW Std Deviation 46.3 H RDW Coeff of Kal 14.2 Plt Count 315 MPV 10.5 Immature Gran % (Auto) 0.400 Neut % (Auto) 57.0 Lymph % (Auto) 29.1 Luna % (Auto) 8.8 Eos % (Auto) 3.8 Baso % (Auto) 0.9 Absolute Neuts (auto) 5.9 Absolute Lymphs (auto) 2.99 Nucleated RBC % 0 PT 12.3 INR 0.9 APTT 23.5 L Sodium 141 Potassium 3.8 Chloride 106 Carbon Dioxide 29.0 Anion Gap 6 BUN 26 H Creatinine 1.21 H Est GFR (MDRD) Af Amer 55 L Est GFR (MDRD) Non-Af 45 L BUN/Creatinine Ratio 21.5 H Glucose 111 H Calcium 9.2 Troponin I High Sens 8 Urine Color Yellow Urine Clarity Sl. Cloudy Urine pH 6.0 Ur Specific [place] 1.025 Urine Protein 30 H Urine Glucose (UA) Normal Urine Ketones 5 H Urine Occult Blood 10 H Urine Nitrite Positive H Urine Bilirubin Negative Urine Urobilinogen 4 H Ur Leukocyte Esterase 500 H Urine RBC 0-5 SEEN Urine WBC 25-50 SEEN Ur Squamous Epith Cells 0-5 SEEN Urine Bacteria 3+ Urine Mucus 0 SEEN Radiography Diagnostic Testing: Clinical Impression(s) from Imaging Studies Brain CT 12/13/23 20:11 IMPRESSION: Chronic involutional changes of the brain. Electronically Signed: Bob Gonzalez MD at 20:44 EST Reading Location ID and State: [address] [place] [address] , Service support , Chest X-Ray 12/13/23 20:12 IMPRESSION: Degenerative changes, as described above. No demonstrated acute cardiopulmonary process. Electronically Signed: Bob Gonzalez MD at 20:34 EST , Discharge Plan Triage Chief Complaint: Dizziness Other Complaint: Confusion ED Provider: Flavio Echavarria Dx/Rx/DC Orders Clinical Impression: Chronic dyspnea Instructions: ED Dyspnea Prescriptions: No Action omeprazole 40 mg capsule,delayed release(DR/EC) 40 mg PO BID citalopram 40 mg tablet 40 mg PO DAILY levothyroxine 125 mcg tablet 125 mcg PO DAILY aspirin 81 MG tablet,chewable 81 mg PO DAILY@0800 rosuvastatin 5 MG tablet 5 mg PO DAILY metoprolol succinate 100 mg tablet extended release 24 hr 100 mg PO DAILY losartan 100 mg tablet 100 mg PO BID tramadol 50 mg tablet 50 mg PO Q12H PRN (Reason: Pain Score 1-10) amlodipine 5 mg tablet 5 mg PO DAILY albuterol sulfate 90 mcg/actuation HFA aerosol inhaler 2 puff inhalation Q4H Qty: 8.5 11RF Primary Care Provider: Max Jordan Referrals: Max Jordan MD [Primary Care Provider] - 1 Week Activity Restrictions/Additional Instructions: Follow-up with Dr. Nicholas's office on as scheduled. Disposition Disposition: Home, Self Care
[2023-12-13 19:18] VITALS: BP 122/74; PULSE 49; RESP 23; O2SAT 94
--- OUTSIDE RECORDS SUMMARY | 2023-12-13 19:20 | XMS RPT_ITS | CCD ---
Author Name Unknown Address [address] [place] [address] Organization [facility] Care Team Providers Care Glass Beveler Name Role Phone Lane Rodriguez Referring Unavailable Lane Rodriguez Primary Care Unavailable Lane Rodriguez MD Primary Care Provider [phone] Fernanda Armstrong RN Unavailable Ester Vargas RN Unavailable Lane Rodriguez MD Primary Care Provider Ester Vargas RN Unavailable Lane Rodriguez MD Primary Care Provider Lane Rodriguez MD Primary Care Provider [phone] RODRIGUEZ Attending Unavailable LANE RODRIGUEZ Primary Care Unavailable SUGAR CRUZ Attending Unavailable LANE RODRIGUEZ Primary Care Unavailable ROCIO ARTHUR Attending Unavailable LANE RODRIGUEZ Primary Care Unavailable LANE RODRIGUEZ Primary Care Unavailable LANE RODRIGUEZ Referring Unavailable ROCIO ARTHUR Referring Unavailable MAISHA RODRIGUEZREY A Primary Care Unavailable SUGAR CRUZ Referring Unavailable LANE RODRIGUEZ A Primary Care Unavailable SUGAR CRUZ Attending Unavailable MAISHA RODRIGUEZREY A Primary Care Unavailable LANE RODRIGUEZ Referring Unavailable JENNIFER, LANE A Primary Care Unavailable ROCIO ARTHUR Attending Unavailable LANE RODRIGUEZ A Primary Care Unavailable LANE RODRIGUEZ Attending Unavailable LANE RODRIGUEZ A Primary Care Unavailable LANE RODRIGUEZ Referring Unavailable JENNIFER, LANE A Primary Care Unavailable LANE RODRIGUEZ Referring Unavailable JENNIFER LANE A Primary Care Unavailable LANE RODRIGUEZ Attending Unavailable ROCIO ARTHUR Attending Unavailable LANE RODRIGUEZ [place] Primary Care Unavailable JENNIFERMAISHA AZULWES [place] Referring Unavailable JENNIFERMAISHA AZULREY [place] Primary Care Unavailable LANE RODRIGUEZ Referring Unavailable SUGAR CRUZ Referring Unavailable SUGAR CRUZ Attending Unavailable JENNIFER, LANE [place] Primary Care Unavailable ROCIO ARTHUR Attending Unavailable JENNIFERLANE AZUL Primary Care Unavailable LANE RODRIGUEZ Primary Care Unavailable JENNIFERMAISHA AZULREY [place] Referring Unavailable ROCIO ARTHUR Attending Unavailable JENNIFER, LANE [place] Primary Care Unavailable JENNIFERLANE AZUL Primary Care Unavailable JENNIFERMAISHA AZULREY [place] Referring Unavailable Allergies Allergy Classification Reported Allergen(s) Allergy Type Date of Onset Reaction(s) Facility (20 sources) Angiotensin Converting Enzyme (Hi) Inhibitors; Translations: [HI INHIBITORS] Propensity to adverse reactions (disorder) 7 Cough [facility] Repository (20 sources) atorvastatin; Translations: [ATORVASTATIN CALCIUM] Drug Allergy 7 Other: See Comments [facility] Repository (20 sources) guaiFENesin; Translations: [GUAIFENESIN] Drug Allergy 7 Mental Status Change [facility] Repository (20 sources) Iodine; Translations: [IODINE] Drug Allergy 0 Anaphylaxis [facility] Repository (20 sources) Pravastatin; Translations: [PRAVASTATIN SODIUM] Drug Allergy 7 Other: See Comments [facility] Repository (20 sources) tiZANidine; Translations: [TIZANIDINE] Drug Allergy 6 Other: See Comments [facility] Repository (20 sources) varenicline; Translations: [VARENICLINE] Drug Allergy 4 Other: See Comments [facility] Repository (4 sources) Thiazides; Translations: [THIAZIDES] Drug Intolerance 2 Other: See Comments [facility] Work Phone: (20 sources) Thiazides Drug Intolerance 2 Other: See Comments [facility] Work Phone: Medications Current Medications Medication Drug Class(es) Dates Sig (Normalized) Sig (Original) cefadroxil 500 mg oral capsule (1 source) Cephalosporin Antibacterial Start: 10-04-2022 End: 10-11-2022 take 1 capsule by mouth twice daily cefADROxil (DURICEF) 500 mg capsule Take 1 capsule by mouth twice daily for 7 days. 14 capsule 0 10/04/2022 10/11/2022 Active Completed/Discontinued Medications Medication Drug Class(es) Dates Sig (Normalized) Sig (Original) [id number] 200 actuat albuterol 0.09 mg/actuat metered dose inhaler (20 sources) beta2-Adrenergic Agonist Start: 02-19-2021 take 2 puff(s) by inhalation every four hours as needed albuterol HFA (PROVENTIL HFA, VENTOLIN HFA) 90 mcg/actuation inhaler Inhale 2 Puffs as instructed every 4 hours as needed. 18 g 1 02/19/2021 Active Problems Active Problems Problem Classification Problem Date Documented Date Episodic/Chronic Abdominal pain (1 source) Right lower quadrant pain; Translations: [Right lower quadrant pain] Episodic Anxiety disorders (20 sources) Anxiety; Translations: [Anxiety disorder, unspecified] Onset: 01-19-2010 03-22-2014 Chronic Chronic kidney disease (20 sources) Chronic kidney disease stage 3A ; Translations: [Stage 3a chronic kidney disease (HCC)] Onset: 01-20-2023 Chronic Chronic kidney disease (1 source) Chronic kidney disease; Translations: [Stage 3a chronic kidney disease (HCC)] Onset: 01-20-2023 Chronic obstructive pulmonary disease and bronchiectasis (20 sources) Pulmonary emphysema; Translations: [Emphysema, unspecified] Onset: 08-02-2015 03-20-2022 Chronic Coronary atherosclerosis and other heart disease (20 sources) History of non-ST segment elevation myocardial infarction; Translations: [Old myocardial infarction] Onset: 01-19-2010 11-03-2021 Chronic Deficiency and other anemia (20 sources) Increased hemoglobin; Translations: [Other hemoglobinopathies] Onset: 04-17-2020 11-27-2020 Chronic Deficiency and other anemia (1 source) Other hemoglobinopathies; Translations: [Elevated hemoglobin (HCC)] Onset: 11-27-2020 Chronic Disorders of lipid metabolism (20 sources) Mixed hyperlipidemia; Translations: [Mixed hyperlipidemia] Onset: 01-19-2010 11-28-2015 Chronic Esophageal disorders (20 sources) Gastroesophageal reflux disease without esophagitis; Translations: [Gastro-esophageal reflux disease without esophagitis] Onset: 07-08-2022 Chronic Essential hypertension (20 sources) Essential hypertension; Translations: [Essential (primary) hypertension] Onset: 01-26-2017 01-26-2017 Chronic Genitourinary symptoms and ill-defined conditions (1 source) Increased frequency of urination; Translations: [Frequency of micturition] Episodic Mood disorders (20 sources) Recurrent major depression in partial remission; Translations: [Major depressive disorder, recurrent, in partial remission] Onset: 04-14-2016 05-16-2018 Chronic Osteoarthritis (20 sources) Bilateral arthritis of knees; Translations: [Bilateral primary osteoarthritis of knee] Onset: 11-28-2015 Chronic Other connective tissue disease (20 sources) History of total hip arthroplasty; Translations: [Presence of right artificial hip joint] Onset: 12-30-2018 08-16-2019 Chronic Other nervous system disorders (20 sources) Carpal tunnel syndrome of left wrist; Translations: [Carpal tunnel syndrome, left upper limb] Onset: 01-04-2018 05-05-2018 Chronic Other non-traumatic joint disorders (1 source) Pain in right shoulder; Translations: [Acute pain of right shoulder] Onset: 12-08-2023 Episodic Other nutritional; endocrine; and metabolic disorders (20 sources) Obese class I; Translations: [Obesity, unspecified] Onset: 12-30-2018 08-16-2019 Chronic Other nutritional; endocrine; and metabolic disorders (1 source) Obesity, unspecified; Translations: [Obesity, Class I, BMI 30-34.9] Onset: 08-16-2019 Chronic Other skin disorders (1 source) Discoloration of skin; Translations: [Disorder of pigmentation, unspecified] Episodic Residual codes; unclassified (20 sources) Obstructive sleep apnea syndrome; Translations: [Obstructive sleep apnea (adult) (pediatric)] Onset: 04-24-2015 03-20-2022 Chronic Retinal detachments; defects; vascular occlusion; and retinopathy (20 sources) Bilateral degeneration of macula; Translations: [Unspecified macular degeneration] Onset: 01-20-2023 Chronic Spondylosis; intervertebral disc disorders; other back problems (20 sources) Degeneration of lumbar intervertebral disc; Translations: [Other intervertebral disc degeneration, lumbar region] Onset: 05-26-2018 08-16-2019 Chronic Substance-related disorders (20 sources) Smoker; Translations: [Nicotine dependence, unspecified, uncomplicated] Onset: 01-19-2010 12-03-2021 Chronic Thyroid disorders (20 sources) Acquired hypothyroidism; Translations: [Hypothyroidism, unspecified] Onset: 08-02-2015 08-02-2015 Chronic Urinary tract infections (1 source) Acute cystitis; Translations: [Acute cystitis without hematuria] Episodic Past or Other Problems Problem Classification Problem Date Documented Da te Episodic/Chronic Administrative/social admission (20 sources) Advance directive discussed with patient; Translations: [Other specified counseling] Onset: 01-20-2023 Episodic Conditions associated with dizziness or vertigo (20 sources) Benign paroxysmal positional vertigo; Translations: [Benign paroxysmal vertigo, unspecified ear] Onset: 08-02-2015 08-04-2015 Episodic Diabetes mellitus without complication (20 sources) High hemoglobin A1c level; Translations: [Other abnormal glucose] Onset: 12-30-2017 12-30-2017 Episodic Immunizations and screening for infectious disease (1 source) Encounter for immunization; Translations: [Encounter for immunization] Onset: 08-30-2023 Episodic Neoplasms of unspecified nature or uncertain behavior (20 sources) Neoplasm of uncertain behavior of face; Translations: [Neoplasm of uncertain behavior of other specified sites] Onset: 10-14-2016 11-04-2021 Episodic Nonmalignant breast conditions (20 sources) Lump in right breast; Translations: [Unspecified lump in the right breast, unspecified quadrant] Onset: 01-20-2023 Episodic Nutritional deficiencies (20 sources) Decreased vitamin B12 level; Translations: [Deficiency of other specified B group vitamins] Onset: 04-06-2014 04-06-2014 Episodic Other aftercare (20 sources) Patient encounter status; Translations: [Other computer terminal operator (current) drug therapy] Onset: 04-02-2015 Episodic Other aftercare (1 source) Other care home (current) drug therapy; Translations: [Medication management] Onset: 05-22-2020 Episodic Other and unspecified benign neoplasm (20 sources) Dermal cellular nevus ; Translations: [Other benign neoplasm of skin, unspecified] Onset: 12-30-2014 11-03-2021 Episodic Other and unspecified benign neoplasm (20 sources) History of polyp of colon; Translations: [Personal history of colonic polyps] Onset: 09-13-2006 03-06-2020 Episodic Other connective tissue disease (20 sources) Triggering of digit; Translations: [Trigger finger, left middle finger] Onset: 08-04-2015 10-14-2016 Episodic Other connective tissue disease (20 sources) Trochanteric bursitis of left hip; Translations: [Trochanteric bursitis, left hip] Onset: 08-16-2019 03-06-2020 Episodic Other infections; including parasitic (20 sources) Personal history of other infectious and parasitic diseases; Translations: [History of COVID-19] Onset: 07-08-2022 07-08-2022 Episodic Other non-traumatic joint disorders (20 sources) Pain in right hip joint; Translations: [Pain in right hip] Onset: 04-29-2016 06-21-2017 Episodic Other non-traumatic joint disorders (20 sources) Pain in right knee; Translations: [Pain in joint, lower leg] Onset: 05-24-2020 05-28-2021 Episodic Other non-traumatic joint disorders (1 source) Pain in left knee; Translations: [Pain in both knees, unspecified chronicity] Onset: 05-27-2023 Episodic Other screening for suspected conditions (not mental disorders or infectious disease) (2 sources) Hypocalcemia; Translations: [Other specified abnormal findings of blood chemistry] Onset: 01-12-2023 Episodic Other skin disorders (20 sources) Inflamed seborrheic keratosis; Translations: [Inflamed seborrheic keratosis] Onset: 12-30-2014 11-03-2021 Episodic Other skin disorders (20 sources) Epidermoid cyst; Translations: [Epidermal cyst] Onset: 09-09-2019 03-06-2020 Episodic Other skin disorders (1 source) Disorder of pigmentation, unspecified; Translations: [Discolored skin] Onset: 05-12-2023 Episodic Residual codes; unclassified (20 sources) Active living will ; Translations: [Other specified health status] Onset: 12-03-2021 12-03-2021 Episodic Spondylosis; intervertebral disc disorders; other back problems (20 sources) Lumbar radiculopathy; Translations: [Radiculopathy, lumbar region] Onset: 05-26-2018 08-16-2019 Episodic Results Test Name Value Interpretation Reference Range Facil ity Vital Signs Date Time Vital Sign Value Performing Clinician Faci lity 10-22-2023 10:50-0500 Body weight 76.66 kg Rocio Knoble THREAD TRIMMER.LIDAR ANALYST Work Phone: [facility] 10-22-2023 10:50-0500 Diastolic blood pressure 72 mm[Hg] Rocio Arthur THREAD TRIMMER.LIDAR ANALYST Work Phone: [facility] 10-22-2023 10:50-0500 Heart rate 60 /min Rocio Sandhya THREAD TRIMMER.LIDAR ANALYST Work Phone: [facility] 10-22-2023 10:50-0500 Respiratory rate 14 /min Rocio Arthur THREAD TRIMMER.LIDAR ANALYST Work Phone: [facility] 10-22-2023 10:50-0500 Systolic blood pressure 154 mm[Hg] Rocio Arthur THREAD TRIMMER.LIDAR ANALYST Work Phone: [facility] 08-30-2023 08:48-0400 Diastolic blood pressure 80 mm[Hg] Rocio Kamilahoble THREAD TRIMMER.LIDAR ANALYST Work Phone: [facility] 08-30-2023 08:48-0400 Systolic blood pressure 168 mm[Hg] Rocio Arthur THREAD TRIMMER.LIDAR ANALYST Work Phone: [facility] 08-30-2023 08:38-0400 Body height 160 cm Rocio Arthur THREAD TRIMMER.LIDAR ANALYST Work Phone: [facility] 08-30-2023 08:38-0400 Body weight 74.84 kg Rocio Arthur THREAD TRIMMER.LIDAR ANALYST Work Phone: [facility] 08-30-2023 08:38-0400 Heart rate 62 /min Rocio Arthur THREAD TRIMMER.LIDAR ANALYST Work Phone: [facility] 08-30-2023 08:38-0400 Respiratory rate 16 /min Rocio Sandhya THREAD TRIMMER.LIDAR ANALYST Work Phone: [facility] 07-23-2023 11:40-0400 Diastolic blood pressure 60 mm[Hg] Lane Rodriguez MD Work Phone: [facility] 07-23-2023 11:40-0400 Systolic blood pressure 182 mm[Hg] Lane Rodriguez MD Work Phone: [facility] 07-23-2023 10:59-0400 Heart rate 56 /min Lane Rodriguez MD Work Phone: [facility] 07-23-2023 10:45-0400 Body weight 77.[address] Rodriguez MD Work Phone: [facility] 07-23-2023 10:45-0400 Respiratory rate 16 /min Lane Rodriguez MD Work Phone: [facility] 07-23-2023 10:45-0400 SaO2% (BldA) [Mass fraction] 94 % Lane Rodriguez MD Work Phone: [facility] 04-22-2023 10:15-0400 Body weight 77.56 kg Rocio Arthur THREAD TRIMMER.LIDAR ANALYST Work Phone: [facility] 04-22-2023 10:15-0400 Diastolic blood pressure 68 mm[Hg] Rocio Arthur THREAD TRIMMER.LIDAR ANALYST Work Phone: [facility] 04-22-2023 10:15-0400 Heart rate 57 /min Rocio Arthur THREAD TRIMMER.LIDAR ANALYST Work Phone: [facility] 04-22-2023 10:15-0400 Respiratory rate 16 /min Rocio Arthur APRN.LIDAR ANALYST Work Phone: [facility] 04-22-2023 10:15-0400 SaO2% (BldA) [Mass fraction] 94 % Rocio Arthur APRN.LIDAR ANALYST Work Phone: [facility] 04-22-2023 10:15-0400 Systolic blood pressure 152 mm[Hg] Rocio Arthur THREAD TRIMMER.LIDAR ANALYST Work Phone: [facility] 01-20-2023 10:36-0400 Diastolic blood pressure 82 mm[Hg] Lane Rodriguez MD Work Phone: [facility] 01-20-2023 10:36-0400 Systolic blood pressure 148 mm[Hg] Lane Rodriguez MD Work Phone: [facility] 01-20-2023 09:33-0400 Body height 161.[address] Rodriguez MD Work Phone: [facility] 01-20-2023 09:33-0400 Body weight 76.[address] Rodriguez MD Work Phone: [facility] 01-20-2023 09:33-0400 Heart rate 58 /min Lane Rodriguez MD Work Phone: [facility] 01-20-2023 09:33-0400 SaO2% (BldA) [Mass fraction] 98 % Lane Rodriguez MD Work Phone: [facility] 09-30-2022 10:15-0500 Body temperature 97.3 [degF] Lane Rodriguez MD Work Phone: [facility] 09-30-2022 10:15-0500 Body weight 76.[address] Rodriguez MD Work Phone: [facility] 09-30-2022 10:15-0500 Diastolic blood pressure 70 mm[Hg] Lane Rodriguez MD Work Phone: [facility] 09-30-2022 10:15-0500 Heart rate 64 /min Lane Rodriguez MD Work Phone: [facility] 09-30-2022 10:15-0500 Respiratory rate 14 /min Lane Rodriguez MD Work Phone: [facility] 09-30-2022 10:15-0500 Systolic blood pressure 158 mm[Hg] Lane Rodriguez MD Work Phone: [facility] 07-08-2022 17:01-0400 Body weight 77.11 kg Laen Rodriguez MD Work Phone: [facility] 07-08-2022 17:01-0400 Diastolic blood pressure 86 mm[Hg] Lane Rodriguez MD Work Phone: [facility] 07-08-2022 17:01-0400 Heart rate 60 /min Lane Rodriguez MD Work Phone: [facility] 07-08-2022 17:01-0400 Respiratory rate 16 /min Lane Rodriguez MD Work Phone: [facility] 07-08-2022 17:01-0400 Systolic blood pressure 128 mm[Hg] Lane Rodriguez MD Work Phone: [facility] 03-20-2022 13:32-0400 [address] weight [address] Rodriguez MD Work Phone: [facility] 03-20-2022 13:32-0400 Diastolic blood pressure 86 mm[Hg] Lane Rodriguez MD Work Phone: [facility] 03-20-2022 13:32-0400 Heart rate 68 /min Lane Rodriguez MD Work Phone: [facility] 03-20-2022 13:32-0400 Respiratory rate 16 /min Lane Rodriguez MD Work Phone: [facility] 03-20-2022 13:32-0400 Systolic blood pressure 122 mm[Hg] Lane Rodriguez MD Work Phone: [facility] Encounters Encounter Date Encounter Type Care Provider Facility Start: 12-09-[address] Rodriguez MD Work Phone: [facility] [place] Procedures Date Procedure Procedure Detail Performing Clinician Start: 08-30-2023 Arthrocentesis aspir &/inj major jt/bursa w/o us Sugar Cruz MD Work Phone: Start: 08-30-2023 [employer]-BION[employer] COVI D-19 VACCINE (2022- SEASON) AGE 12+ YR Rocio Arthur APRN.LIDAR ANALYST Work Phone: Start: 02-22-2023 Arthrocentesis aspir &/inj major jt/bursa w/o us Sugar Cruz MD Work Phone: Start: 01-20-2023 Drug tst prsmv instr mnt chem analyzers pr date Lane Rodriguez MD Work Phone: Start: 11-12-2022 Arthrocentesis aspir &/inj major jt/bursa w/o us Sugar Cruz MD Work Phone: Start: 09-30-2022 Culture bacterial quanttative colony count urine Lane Rodriguez MD Work Phone: Start: 09-30-2022 Urnls dip stick/tabl et rgnt auto w/o microscopy Lane Rodriguez MD Work Phone: Start: 08-10-2022 Arthrocentesis aspir &/inj major jt/bursa w/o Sugar Cruz MD Work Phone: Start: 07-08-2022 Urnls dip stick/tabl et rgnt auto w/o microscopy Lane Rodriguez MD Work Phone: Start: 04-30-2022 Arthrocentesis aspir &/inj major jt/bursa w/o Sugar Cruz MD Work Phone: Start: 03-20-2022 Drug tst prsmv instr mnt chem analyzers pr date Lane Rodriguez MD Work Phone: Plan of Treatment Date Care Activity Detail Author Start: 04-22-2033 Urine microalbumin profile [facility] Start: 07-06-2026 DIABETES SCREEN DIABETES SCREEN [facility] Start: 07-06-2026 Diabetes Screening Diabetes Screenin g [facility] Start: 01-12-2026 DIABETES SCREEN DIABETES SCREEN [facility] Start: 06-11-2025 DIABETES SCREEN DIABETES SCREEN [facility] Start: 11-19-2024 DIABETES SCREEN DIABETES SCREEN [facility] Start: 01-21-2024 Urine microalbumin profile DTAP,TDAP ,TD (1 - Tdap) [facility] Immunizations Immunization Date Immunization Notes Care Provider Dajuan jolly 08-30-2023 COVID-19 vaccine, ag e 12+ yr, season (PFIZER-BIONTPitchEngine) Rocio Arthur APRN.LIDAR ANALYST Work Phone: [facility] 04-22-2023 tetanus toxoid, redu shaun diphtheria toxoid, and acellular pertussis vaccine, adsorbed Rocio Arthur APRN.LIDAR ANALYST Work Phone: [facility] 02-08-2023 zoster vaccine recombinant Rocio Arthur APRN.LIDAR ANALYST Work Phone: [facility] 12-11-[address] Rodriguez MD Work Phone: [facility] 09-08-2022 influenza, high dose seasonal, preservative-free Lane Rodriguez MD Work Phone: [facility] Work Phone: 09-08-2022 influenza virus vacc ine, unspecified formulation Lane Rodriguez MD Work Phone: [facility] 08-17-2022 influenza (aIIV4) vaccine, age 65+ yr, quadrivalent, PF (FLUAD QUAD) Rocio Arthur THREAD TRIMMER.LIDAR ANALYST Work Phone: [facility] 08-02-2021 influenza, high-dose , quadrivalent vaccine (FLUZONE HIGH DOSE QUADRIVALENT) Lane Rodriguez MD Work Phone: [facility] 01-31-2021 COVID-19 vaccine, fu ll dose (MODERNA) Lane Rodriguez MD Work Phone: [facility] 01-03-2021 COVID-19 vaccine, fu ll dose (MODERNA) Lane Rodriguez MD Work Phone: [facility] 08-03-2020 Seasonal, quadrivale nt, recombinant, injectable influenza vaccine, preservative free Rocio Arthur THREAD TRIMMER.LIDAR ANALYST Work Phone: [facility] 11-19-2019 influenza, seasonal, injectable, preservative free Rocio Arthur THREAD TRIMMER.LIDAR ANALYST Work Phone: [facility] 08-16-2019 influenza, high dose seasonal, preservative-free Lane Rodriguez MD Work Phone: [facility] 08-06-2018 influenza, high dose seasonal, preservative-free Lane Rodriguez MD Work Phone: [facility] 08-18-2017 influenza, high dose seasonal, preservative-free Lane Rodriguez MD Work Phone: [facility] 06-21-2017 pneumococcal polysaccharide vaccine, [address] Rodriguez MD Work Phone: [facility] 10-14-2016 influenza, injectabl e, quadrivalent, contains preservative Lane Rodriguez MD Work Phone: [facility] Work Phone: 08-02-2015 influenza, injectabl e, quadrivalent, contains preservative Lane Rodriguez MD Work Phone: [facility] Work Phone: 04-02-2015 pneumococcal conjuga te vaccine, 13 cande Rodriguez MD Work Phone: [facility] 08-08-2011 influenza virus vacc ine, unspecified formulation Lane Rodriguez MD Work Phone: [facility] Work Phone: 08-17-2009 pneumococcal polysaccharide vaccine, 23 valneri Rodriguez MD Work Phone: [facility] Work Phone: 09-16-2007 influenza virus vacc ine, whole virus Rocio Arthur THREAD TRIMMER.LIDAR ANALYST Work Phone: [facility] Payers Date Payer Category Payer Medicare [id number] 2021 Medicare HU[employer]NA MEDICARE HU[employer]NA MEDICARE PPO [id number] 2021-Present [phone] [facility] [id number] [place] [address] PPO [id number] 2021 Medicare [id number] 2021 Private Health Insurance [id number] 1940 Unknown [id number] Social History Date Type Detail Facility Start: 01-26-2022 End: 07-08-2022 Tobacco smoking status [facility] Smokes tobacco daily [facility] End: 04-08-2022 History of tobacco use Cigarette Smoker [facility] Start: 01-26-2022 End: 04-22-2023 Cigarettes smoked current (pack per day) - Reported 1 [facility] Start: 01-26-2022 End: 11-12-2022 Tobacco use and exposure Smokeless tobacco non-user [facility] Start: 03-21-2022 End: 12-08-2023 Alcohol intake Current drinker of alcohol (finding) [facility] Start: 02-16-2017 History SDOH Alcohol Comment occasional glass of wine, once a month [facility] Start: 01-26-2022 End: 07-08-2022 Tobacco Comment 3 cigarettes per day [facility] Start: 1940 Sex Assigned At Female [facility] Start: 04-20-2022 End: 09-30-2022 Exposure to SARS-CoV-2 (event) Not sure [facility] Work Phone: Start: 07-01-2022 History SDOH Alcohol Std Drinks 98 [facility] Start: 07-01-2022 End: 10-09-2022 History SDOH Housing Unable to Pay 3 [facility] Start: 11-12-2022 Tobacco smoking stat us [facility] Ex-smoker [facility] End: 04-08-2022 History of tobacco use Current smoker [facility] Start: 10-09-2022 End: 04-22-2023 Social connection and isolation panel [facility] In a typical week, h ow many times do you talk on the telephone with family, friends, or neighbors? Patient refused [facility] Are you now , , , , never or living with a partner? Refused [facility] (I/We) worried wheth er (my/our) food would run out before (I/we) got money to buy more. DK or Refused [facility] Start: 01-23-2022 Gender identity Identifies as female gender (finding) [facility] Start: 01-23-2022 Sexual orientation Heterosexual ([facility]) [facility] Medical Equipment Procedure Code Equipment Code Equipment Origin al Text Equipment Identifier Dates [id number] Implant - [id number] Start: 12-30-2018 Goals Date Patient Goal Desired Activity /State Personal health goal Clinical Notes 01-19-2010 to 12-09-2023 Telephone Encounter - Christin Lott LPN - 12/09/2023 2:22 PM ESTTelephone Encounter - Lane Rodriguez MD - 12/09/2023 1:[address] APRN.LIDAR ANALYST - 10/22/2023 10:54 AM EST Note Date & Type Note Facility 12-09-2023 Miscellaneous Notes Left detailed message on identifiable voicemail. Let daughter know Nery's shoulder x-ray shows mild arthritic changes otherwise normal. documented in this encounter [facility] 12-08-2023 Note HNO ID: [id number] Author: PATTY OLIVER RT(R) Service: Radiology Author Type: Technologist Type: Progress Notes Filed: 12/08/2023 12:12 Note Text: Radiology Service Progress Note PATIENT NAME: Dayanna Garza DATE OF SERVICE: December 08, 2023 TIME: 12:02 PM PATIENT IDENTITY VERIFICATION COMPLETED USING TWO (2) IDENTIFIERS: Name and Date of confirmed by patient verbally. FALL SCREENING: Has the patient had 2 falls in the last year or 1 fall with injury or currently using an Ambulatory Assistive Device (Walker, Cane, Wheelchair, Crutches, etc.)? No PATIENT GENDER DATA: Female. status: : No status: NO. PATIENT RELEVANT IMPLANT DATA REVIEWED: Not Applicable PATIENT PRESENTS WITH AN IMPLANTABLE OR ATTACHED CONVERTIBLE SOFA BEDSPRING TESTER: No RADIOLOGY DEPARTMENT: General X-ray: Exam(s) Completed: Upper Extremity X-Ray(s): Shoulder, AP / TRUE AP / SUPRA OUTLET right PERIPHERAL IV DATA: Not applicable SIGNED BY: RT Lulú(R) December 08, 2023 12:02 PM [facility] 12-08-2023 Note HNO ID: [id number] Author: LANE RODRIGUEZ MD Service: ? Author Type: Physician Type: Progress Notes Filed: 12/08/2023 13:05 Note Text: Chief Complaint Patient presents with: Pain: Right shoulder HPI Dayanna Garza is a 83 year old female who presents here today for right shoulder pain. Patient is here today for right shoulder pain x 4 weeks. No known injury. Constant pain; today at a 5; pain increases when lifting her arm and is sharp stabbing. Also pain under her arm as well. Can not raise her arm above her head. Hurts to lay on it. No swelling or redness to the area. Patient has quit vaping and smoking her cigs. Patient having increasing pain in the right upper outer quadrant and tail of the right breast. Had declined imaging in the past. Patient is scheduled in January for medicare wellness Patient is scheduled next week for Pulmonary with Dr Nicholas as she is having more issues with breathing; no chest pain per patient today and see Ortho for knee injections. Past medical history, appointments, medications, allergies reviewed. Previous Medical History PAST MEDICAL HISTORY Diagnosis Date Acquired hypothyroidism 08/02/2015 Advance directive discussed with patient 01/20/2023 Discussed 01/2023: Up to date Anxiety Anxiety 01/19/2010 -continue home citalopram BPV (benign positional vertigo) 08/02/2015 Chronic pain of both knees 05/24/2020 Seeing Ortho: Dr. Cruz Coronary artery 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 08/02/2015 Not seeing cardiology Degenerative disc disease, lumbar 05/26/2018 Elevated hemoglobin (HCC) 04/17/2020 to be rechecked 05/17/2020 Elevated hemoglobin A1c 12/30/2017 Epidermal inclusion cyst 09/09/2019 anterior chest wall excised 08/2019 Essential hypertension 01/26/2017 GERD without esophagitis 07/08/2022 Graves disease Heart attack (HCC) Michael stent in heart History of COVID-19 07/08/202205/2022 History of non-ST elevation myocardial infarction (NSTEMI) 01/19/201001/2010 Intradermal nevus 12/30/2014 right inferrior medial breast Keratosis, inflamed seborrheic 12/30/2014 right upper back Left carpal tunnel syndrome 01/04/[address] 12/03/2021 Daughter Truong is DPOA Low vitamin B12 level 04/06/2014 Lumbar radicular pain 05/26/2018 Added automatically from request for surgery [id number] Lump or mass in breast 01/20/2023 Patient declined evaluation with imaging or Tx if it were to be cancer. 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 Treated with cryo 10/14/2016 Obesity, Class I, BMI 30-34.9 12/30/2018 Osteoarthritis 11/28/2015 Substance agreement signed 05/2020 for tramadol BID: Knees, Hips (Rt>Lt), substance agreement signed for tramadol Pain in right hip 04/29/2016 Personal history of colonic polyps 09/13/2006 hyperplastic Pulmonary emphysema (HCC) 08/02/2015 Changes of seen on chest x-ray 07/2014 Recurrent major depressive disorder, in partial remission ([facility]) 04/14/2016 Severe obstructive sleep apnea AHI 32.5 04/24/2015 DME: [facility] Smoker 01/19/2010 Started at age 31 up to 1 PPD Stage 3a chronic kidney disease (HCC) 01/20/2023 Status post total replacement of right hip 12/30/2018 Trigger index finger of left hand 08/22/2015 Trigger middle finger of left hand 08/04/2015 Trochanteric bursitis of left hip 08/16/2019 Previous Surgical History PAST SURGICAL HISTORY Procedure Laterality Date 2D ECHO (EXEP) 12/21/2019 EF=60%, 1+ TI, HI, AI 2D ECHO (EXEP) 02/17/2021 EF= 60%, mod santos dysf, ARTHRP ACETBLR/PROX FEM PROSTC AGRFT/ALGRFT Right 12/30/2018 Hip replacement, total CC CORONARY STENT 12/21/2019 MARCOS to mLCx COLONOSCOPY 05/01/2016 serrated adenoma/Repeat 04/2019 COLONOSCOPY COLONOSCOPY AND POLYPECTOMY 09/13/2006 hyperplastic polyp- repeat 2016 CORONARY STENT EA VESSEL 01/2010 ESOPHAGOGASTRODUODENOSCOPY TRANSORAL DIAGNOSTIC 07/02/2021 LEXISCAN STRESS TEST 02/17/2021 negative NEUROPLASTY AND/TRANSPOS MEDIAN NRV CARPAL TUNNE Left 02/09/2018 Left carpal tunnel release SLING OPER STRES INCONTINENCE 1998, 2012 (Dr. Yi) XCAPSL CTRC RMVL INSJ IO LENS PROSTH W/O ECP Bilateral 09-28-12 and 11-07-12 Cataract Extraction with PC IOL Family History FAMILY HISTORY Problem Relation Age of Onset Cancer Father prostate Hypertension Father Alzheimer's Disease Brother at 78 Coronary Artery Disease Mother blood clots- at 65 Breast Cancer Daughter Breast Cancer Daughter Blood Clots Daughter while preganant- PE Patient Allergies ALLERGIES Allergen Reactions Iodine Anaphylaxis Hctz [Thiazides] Other: See Comments Dehydrated, nauseated and wee (more content not included)... [facility] 11-29-2023 Note HNO ID: [id number] Author: ROCIO ARTHUR APRN.LIDAR ANALYST Service: ? Author Type: Nurse Practitioner Type: Progress Notes Filed: 11/29/2023 11:58 Note Text: Chief Complaint Patient presents with: Follow Up: Blood pressure HPI Dayanna Garza is a 83 year old female who presents here today for Above Complaints.. Patient presents for BP follow up. Patient reports home BP's have been all over the place. Patient had decreased amlodipine previously due to low bp's and not feeling well. Patient reports Systolic BP's as low as 113 at which point patient feels weak and tired. Past medical history, appointments, medications, allergies reviewed. Previous Medical History PAST MEDICAL HISTORY Diagnosis Date Acquired hypothyroidism 08/02/2015 Advance directive discussed with patient 01/20/2023 Discussed 01/2023: Up to date Anxiety Anxiety 01/19/2010 -continue home citalopram BPV (benign positional vertigo) 08/02/2015 Chronic pain of both knees 05/24/2020 Seeing Ortho: Dr. Cruz Coronary artery 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 08/02/2015 Not seeing cardiology Degenerative disc disease, lumbar 05/26/2018 Elevated hemoglobin (HCC) 04/17/2020 to be rechecked 05/17/2020 Elevated hemoglobin A1c 12/30/2017 Epidermal inclusion cyst 09/09/2019 anterior chest wall excised 08/2019 Essential hypertension 01/26/2017 GERD without esophagitis 07/08/2022 Graves disease Heart attack (HCC) Michael stent in heart History of COVID-19 07/08/202205/2022 History of non-ST elevation myocardial infarction (NSTEMI) 01/19/201001/2010 Intradermal nevus 12/30/2014 right inferrior medial breast Keratosis, inflamed seborrheic 12/30/2014 right upper back Left carpal tunnel syndrome 01/04/[address] 12/03/2021 [place]co Fu[place]ki is DPOA Low vitamin B12 level 04/06/2014 Lumbar radicular pain 05/26/2018 Added automatically from request for surgery [id number] Lump or mass in breast 01/20/2023 Patient declined evaluation with imaging or Tx if it were to be cancer. 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 Treated with cryo 10/14/2016 Obesity, Class I, BMI 30-34.9 12/30/2018 Osteoarthritis 11/28/2015 Substance agreement signed 05/2020 for tramadol BID: Knees, Hips (Rt>Lt), substance agreement signed for tramadol Pain in right hip 04/29/2016 Personal history of colonic polyps 09/13/2006 hyperplastic Pulmonary emphysema (HCC) 08/02/2015 Changes of seen on chest x-ray 07/2014 Recurrent major depressive disorder, in partial remission ([facility]) 04/14/2016 Severe obstructive sleep apnea AHI 32.5 04/24/2015 DME: [facility] Smoker 01/19/2010 Started at age 31 up to 1 PPD Stage 3a chronic kidney disease (HCC) 01/20/2023 Status post total replacement of right hip 12/30/2018 Trigger index finger of left hand 08/22/2015 Trigger middle finger of left hand 08/04/2015 Trochanteric bursitis of left hip 08/16/2019 Previous Surgical History PAST SURGICAL HISTORY Procedure Laterality Date 2D ECHO (EXEP) 12/21/2019 EF=60%, 1+ TI, HI, AI 2D ECHO (EXEP) 02/17/2021 EF= 60%, mod santos dysf, ARTHRP ACETBLR/PROX FEM PROSTC AGRFT/ALGRFT Right 12/30/2018 Hip replacement, total CC CORONARY STENT 12/21/2019 MARCOS to mLCx COLONOSCOPY 05/01/2016 serrated adenoma/Repeat 04/2019 COLONOSCOPY COLONOSCOPY AND POLYPECTOMY 09/13/2006 hyperplastic polyp- repeat 2016 CORONARY STENT EA VESSEL 01/2010 ESOPHAGOGASTRODUODENOSCOPY TRANSORAL DIAGNOSTIC 07/02/2021 LEXISCAN STRESS TEST 02/17/2021 negative NEUROPLASTY AND/TRANSPOS MEDIAN NRV CARPAL TUNNE Left 02/09/2018 Left carpal tunnel release SLING OPER STRES INCONTINENCE 1998, 2012 (Dr. Yi) XCAPSL CTRC RMVL INSJ IO LENS PROSTH W/O ECP Bilateral 09-28-12 and 11-07-12 Cataract Extraction with PC IOL Family History FAMILY HISTORY Problem Relation Age of Onset Cancer Father prostate Hypertension Father Alzheimer's Disease Brother at 78 Coronary Artery Disease Mother blood clots- at 65 Breast Cancer Daughter Breast Cancer Daughter Blood Clots Daughter while preganant- PE Patient Allergies ALLERGIES Allergen Reactions Iodine Anaphylaxis Hctz [Thiazides] Other: See Comments Dehydrated, nauseated and week Hi Inhibitors Cough Chantix [Vareniclin* Other: See Comments Bad dreams Lipitor [Atorvastat* Other: See Comments Muscle pains Mucinex [Guaifenesi* Mental Status Change dizziness and confusion Pravachol [Pravasta* Other: See Comments Muscle aches Zanaflex [Tizanidin* Other: See Comments Caused pt to feel jittery all over Current Medications Current Outpatient Medications on File Prior to Vi (more content not included)... [facility] 10-22-2023 Note HNO ID: [id number] Author: Rocio Arthur APRN.LIDAR ANALYST Service: ? Author Type: Nurse Practitioner Type: Progress Notes Filed: 10/22/2023 11:04 AM Note Text: Chief Complaint Patient presents with: F/U 3 Month HPI Dayanna Garza is a 83 year old female who presents here today for Above Complaints.. Patient presents for routine follow up. Patient reports she stopped taking the amlodipine 10mg because she was having low BP and feeling more fatigued. Past medical history, appointments, medications, allergies reviewed. Previous Medical History PAST MEDICAL HISTORY Diagnosis Date Acquired hypothyroidism 08/02/2015 Advance directive discussed with patient 01/20/2023 Discussed 01/2023: Up to date Anxiety Anxiety 01/19/2010 -continue home citalopram BPV (benign positional vertigo) 08/02/2015 Chronic pain of both knees 05/24/2020 Seeing Ortho: Dr. Cruz Coronary artery 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 08/02/2015 Not seeing cardiology Degenerative disc disease, lumbar 05/26/2018 Elevated hemoglobin (HCC) 04/17/2020 to be rechecked 05/17/2020 Elevated hemoglobin A1c 12/30/2017 Epidermal inclusion cyst 09/09/2019 anterior chest wall excised 08/2019 Essential hypertension 01/26/2017 GERD without esophagitis 07/08/2022 Graves disease Heart attack (HCC) Michael stent in heart History of COVID-19 07/08/202205/2022 History of non-ST elevation myocardial infarction (NSTEMI) 01/19/201001/2010 Intradermal nevus 12/30/2014 right inferrior medial breast Keratosis, inflamed seborrheic 12/30/2014 right upper back Left carpal tunnel syndrome 01/04/[address] 12/03/2021 Daughter Truong is DPOA Low vitamin B12 level 04/06/2014 Lumbar radicular pain 05/26/2018 Added automatically from request for surgery [id number] Lump or mass in breast 01/20/2023 Patient declined evaluation with imaging or Tx if it were to be cancer. 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 Treated with cryo 10/14/2016 Obesity, Class I, BMI 30-34.9 12/30/2018 Osteoarthritis 11/28/2015 Substance agreement signed 05/2020 for tramadol BID: Knees, Hips (Rt>Lt), substance agreement signed for tramadol Pain in right hip 04/29/2016 Personal history of colonic polyps 09/13/2006 hyperplastic Pulmonary emphysema (HCC) 08/02/2015 Changes of seen on chest x-ray 07/2014 Recurrent major depressive disorder, in partial remission (HCC) 04/14/2016 Severe obstructive sleep apnea AHI 32.5 04/24/2015 DME: [facility] Smoker 01/19/2010 Started at age 31 up to 1 PPD Stage 3a chronic kidney disease (HCC) 01/20/2023 Status post total replacement of right hip 12/30/2018 Trigger index finger of left hand 08/22/2015 Trigger middle finger of left hand 08/04/2015 Trochanteric bursitis of left hip 08/16/2019 Previous Surgical History PAST SURGICAL HISTORY Procedure Laterality Date 2D ECHO (EXEP) 12/21/2019 EF=60%, 1+ TI, HI, AI 2D ECHO (EXEP) 02/17/2021 EF= 60%, mod santos dysf, ARTHRP ACETBLR/PROX FEM PROSTC AGRFT/ALGRFT Right 12/30/2018 Hip replacement, total CC CORONARY STENT 12/21/2019 MARCOS to mLCx COLONOSCOPY 05/01/2016 serrated adenoma/Repeat 04/2019 COLONOSCOPY COLONOSCOPY AND POLYPECTOMY 09/13/2006 hyperplastic polyp- repeat 2016 CORONARY STENT EA VESSEL 01/2010 ESOPHAGOGASTRODUODENOSCOPY TRANSORAL DIAGNOSTIC 07/02/2021 LEXISCAN STRESS TEST 02/17/2021 negative NEUROPLASTY AND/TRANSPOS MEDIAN NRV CARPAL TUNNE Left 02/09/2018 Left carpal tunnel release SLING OPER STRES INCONTINENCE 1998, 2012 (Dr. Yi) XCAPSL CTRC RMVL INSJ IO LENS PROSTH W/O ECP Bilateral 09-28-12 and 11-07-12 Cataract Extraction with PC IOL Family History FAMILY HISTORY Problem Relation Age of Onset Cancer Father prostate Hypertension Father Alzheimer's Disease Brother at 78 Coronary Artery Disease Mother blood clots- at 65 Breast Cancer Daughter Breast Cancer Daughter Blood Clots Daughter while preganant- PE Patient Allergies ALLERGIES Allergen Reactions Iodine Anaphylaxis Hctz [Thiazides] Other: See Comments Dehydrated, nauseated and week Hi Inhibitors Cough Chantix [Vareniclin* Other: See Comments Bad dreams Lipitor [Atorvastat* Other: See Comments Muscle pains Mucinex [Guaifenesi* Mental Status Change dizziness and confusion Pravachol [Pravasta* Other: See Comments Muscle aches Zanaflex [Tizanidin* Other: See Comments Caused pt to feel jittery all over Current Medications Current Outpatient Medications on File Prior to Visit Medication Sig amLODIPine (NORVASC) 10 mg tablet take 1 tablet every day levothyroxine (LEVOXYL) 137 mcg tabl (more content not included)... [facility] 10-22-2023 History of Presen t illness Narrative Chief Complaint Patient presents with: F/U 3 Month HPI Dayanna Garza is a 83 year old female who presents here today for Above Complaints.. Patient presents for routine follow up. Patient reports she stopped taking the amlodipine 10mg because she was having low BP and feeling more fatigued. Past medical history, appointments, medications, allergies reviewed. Previous Medical History PAST MEDICAL HISTORY Diagnosis Date Acquired hypothyroidism 08/02/2015 Advance directive discussed with patient 01/20/2023 Discussed 01/2023: Up to date Anxiety Anxiety 01/19/2010 -continue home citalopram BPV (benign positional vertigo) 08/02/2015 Chronic pain of both knees 05/24/2020 Seeing Ortho: Dr. Cruz Coronary artery 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 08/02/2015 Not seeing cardiology Degenerative disc disease, lumbar 05/26/2018 Elevated hemoglobin (HCC) 04/17/2020 to be rechecked 05/17/2020 Elevated hemoglobin A1c 12/30/2017 Epidermal inclusion cyst 09/09/2019 anterior chest wall excised 08/2019 Essential hypertension 01/26/2017 GERD without esophagitis 07/08/2022 Graves disease Heart attack (HCC) Michael stent in heart History of COVID-19 07/08/202205/2022 History of non-ST elevation myocardial infarction (NSTEMI) 01/19/201001/2010 Intradermal nevus 12/30/2014 right inferrior medial breast Keratosis, inflamed seborrheic 12/30/2014 right upper back Left carpal tunnel syndrome 01/04/[address] 12/03/2021 Daughter Truong is DPOA Low vitamin B12 level 04/06/2014 Lumbar radicular pain 05/26/2018 Added automatically from request for surgery [id number] Lump or mass in breast 01/20/2023 Patient declined evaluation with imaging or Tx if it were to be cancer. 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 Treated with cryo 10/14/2016 Obesity, Class I, BMI 30-34.9 12/30/2018 Osteoarthritis 11/28/2015 Substance agreement signed 05/2020 for tramadol BID: Knees, Hips (Rt>Lt), substance agreement signed for tramadol Pain in right hip 04/29/2016 Personal history of colonic polyps 09/13/2006 hyperplastic Pulmonary emphysema (HCC) 08/02/2015 Changes of seen on chest x-ray 07/2014 Recurrent major depressive disorder, in partial remission (HCC) 04/14/2016 Severe obstructive sleep apnea AHI 32.5 04/24/2015 DME: [facility] Smoker 01/19/2010 Started at age 31 up to 1 PPD Stage 3a chronic kidney disease (HCC) 01/20/2023 Status post total replacement of right hip 12/30/2018 Trigger index finger of left hand 08/22/2015 Trigger middle finger of left hand 08/04/2015 Trochanteric bursitis of left hip 08/16/2019 Previous Surgical History PAST SURGICAL HISTORY Procedure Laterality Date 2D ECHO (EXEP) 12/21/2019 EF=60%, 1+ TI, HI, AI 2D ECHO (EXEP) 02/17/2021 EF= 60%, mod santos dysf, ARTHRP ACETBLR/PROX FEM PROSTC AGRFT/ALGRFT Right 12/30/2018 Hip replacement, total CC CORONARY STENT 12/21/2019 MARCOS to mLCx COLONOSCOPY 05/01/2016 serrated adenoma/Repeat 04/2019 COLONOSCOPY COLONOSCOPY & POLYPECTOMY 09/13/2006 hyperplastic polyp- repeat 2016 CORONARY STENT EA VESSEL 01/2010 ESOPHAGOGASTRODUODENOSCOPY TRANSORAL DIAGNOSTIC 07/02/2021 LEXISCAN STRESS TEST 02/17/2021 negative NEUROPLASTY &/TRANSPOS MEDIAN NRV CARPAL TUNNE Left 02/09/2018 Left carpal tunnel release SLING OPER STRES INCONTINENCE 1998, 2012 (Dr. Yi) XCAPSL CTRC RMVL INSJ IO LENS PROSTH W/O ECP Bilateral 09-28-12 and 11-07-12 Cataract Extraction with PC IOL Family History FAMILY HISTORY Problem Relation Age of Onset Cancer Father prostate Hypertension Father Alzheimer's Disease Brother at 78 Coronary Artery Disease Mother blood clots- at 65 Breast Cancer Daughter Breast Cancer Daughter Blood Clots Daughter while preganant- PE Patient Allergies ALLERGIES Allergen Reactions Iodine Anaphylaxis Hctz [Thiazides] Other: See Comments Dehydrated, nauseated and week Hi Inhibitors Cough Chantix [Vareniclin* Other: See Comments Bad dreams Lipitor [Atorvastat* Other: See Comments Muscle pains Mucinex [Guaifenesi* Mental Status Change dizziness and confusion Pravachol [Pravasta* Other: See Comments Muscle aches Zanaflex [Tizanidin* Other: See Comments Caused pt to feel jittery all over Current Medications Current Outpatient Medications on File Prior to Visit Medication Sig amLODIPine (NORVASC) 10 mg tablet take 1 tablet every day levothyroxine (LEVOXYL) 137 mcg tablet Take one tab by mouth once a day Wed-Wed and none on Wednesday. Take on empty stomach. For Thyroid. traMADol (ULTRAM) 50 mg tablet Take 1 tablet by mouth every 8 hours as needed for pain for up to 90 days. metoprolol succinate ER (TOPROL XL) 100 mg Take 1 tablet by mouth once daily. citalopram (CELEXA) 40 mg tablet Take 1 tablet by mouth once daily. losartan (COZAAR) 100 mg tablet Take 1 tablet by mouth twice daily. omeprazole (PRILOSEC) 40 mg capsule Take 1 capsule by mouth twice daily. celecoxib (CELEBREX) 100 mg capsule Take 1 capsule by mouth twice daily. rosuvastatin (CRESTOR) 5 mg tablet Take 1 tablet by mouth once daily. famotidine (PEPCID) 20 mg tablet Take 1 tablet by mouth twice daily. Started in ER 05/2023 (Patient taking differently: Take 20 mg by mouth two times a day. Started in ER 05/2023- as needed) ondansetron orally disintegrating (ZOFRAN ODT) 4 mg disintegrating tablet Take 1 tablet by mouth every 6 hours as needed for nausea/vomiting. fluticasone propionate (FLOVENT DISKUS) 100 mcg/actuation inhaler Inhale 1 Puff as instructed twice daily. albuterol HFA (PROVENTIL HFA, VENTOLIN HFA) 90 mcg/actuation inhaler Inhale 2 Puffs as instructed every 4 hours as needed. cyanocobalamin (VITAMIN B-12) 1,000 mcg tab Take 1 tablet by mouth once daily. (Patient not taking: Reported on 01/20/2023) nitroglycerin sublingual (NITROQUICK) 0.4 mg SL tablet Dissolve 1 tablet under the tongue every 5 minutes as needed. aspirin, enteric coated (ASPIRIN, ENTERIC COATED) 81 mg EC tablet Take 81 mg by mouth once daily. No current facility-administered medications on file prior to visit. Social History Social History Tobacco Use Smoking status: Former Packs/day: 1 Types: Cigarettes Quit date: 04/08/2022 Years since quittin.5 Smokeless tobacco: Never Tobacco comments: 3 cigarettes per day Vaping Use Vaping Use: current everyday user Substances: Nicotine Devices: Pre-filled or refillable cartridge Substance Use Topics Alcohol use: Yes Comment: occasional glass of wine, once a month Drug use: No Review of Symptoms REVIEW OF SYSTEMS SEE HPI EXAM: BP 154/72 Pulse 60 Resp 14 Wt 76.7 kg (169 lb) BMI 29.94 kg/m General Appearance: Well appearing, alert, in no acute distress, well-hydrated, well nourished.. Lungs: Lungs clear to auscultation. No wheezing, rhonchi, rales.. Heart: RRR without murmur, gallop, or rubs. No ectopy. Health Maintenance List LDL Cholesterol due on 01/13/2024 Diabetes Screening due on 07/06/2026 DTaP,Tdap,Td Vaccine(2 - Td or Tdap) due on 04/22/2033 Bone Density Screening Completed Spirometry Completed Influenza Vaccine Completed Advance Directive Discussion Completed RSV Vaccine Completed Shingrix Vaccine Completed Covid-19 Vaccine Completed Pneumococcal Vaccine: 65+ Completed Colorectal Cancer Screening Discontinued ASSESSMENT/PLAN: 1. Essential hypertension - ICD9: 401.9, ICD10: I10 - Uncontrolled - Decrease amlodipine - Recommend home blood pressure monitoring, to bring results to next visit - Encouraged sodium restriction, DASH or Mediterranean diet - Recommend regular aerobic exercise - Discussed need for and benefit of weight loss. BMI 29.94 kg/(m^2) - AMLODIPINE 5 MG TABLET Rocio Arthur APRN.LIDAR ANALYST documented in this encounter [facility] 10-18-2023 Miscellaneous Notes Call to daughterKailyn and notified her of results and recommendation below from Provider. Verbalizes understanding. Will be seeing Rocio Arthur this week as well for ongoing BP issues, will address with her. Eileen Bello Ma Let daughter know Pat is still getting too much levothyroxine. Cont with the 137 mgc tab but only take one Mon-Sat and none on Wednesday. Will need repeat lab in 2 months. Order placed. documented in this encounter [facility] 10-11-2023 Miscellaneous Notes The following approved medication requests have been transmitted electronically. Requested Prescriptions Signed Prescriptions Disp Refills traMADol (ULTRAM) 50 mg tablet 270 tablet 0 Sig: Take 1 tablet by mouth every 8 hours as needed for pain for up to 90 days. Authorizing Provider: LANE RODRIGUEZ MD PDMP website checked and validated. All prescriptions have been APPROPRIATELY filled. No suspicious activity was identified. 10/11/[address] Rodriguez MD Patient has been identified by name and date of : Yes Requested Prescriptions Pending Prescriptions Disp Refills traMADol (ULTRAM) 50 mg tablet 270 tablet 0 Sig: Take 1 tablet by mouth every 8 hours as needed for pain for up to 90 days. RX INSTRUCTIONS: Patient aware RX will be sent to pharmacy. No need to notify patient. Katherin Schmidt MA [facility] 09/2023Sep 1001/2024 Last refill: 07/2023 documented in this encounter [facility] 09-14-2023 Note HNO ID: [id number] Author: Rocio Arthur APRN.LIDAR ANALYST Service: ? Author Type: Nurse Practitioner Type: Progress Notes Filed: 09/14/2023 9:00 AM Note Text: Chief Complaint Patient presents with: Follow Up: Blood pressure HPI Dayanna Garza is a 83 year old female who presents here today for Above Complaints.. Patient presents for BP follow up. Patient was seen 08/30 and her amlodipine was increased from 2.5mg to 5mg. Patient has had an improvement in BP however she is not at goal. Patient denies any side effects. Past medical history, appointments, medications, allergies reviewed. Previous Medical History PAST MEDICAL HISTORY Diagnosis Date Acquired hypothyroidism 08/02/2015 Advance directive discussed with patient 01/20/2023 Discussed 01/2023: Up to date Anxiety Anxiety 01/19/2010 -continue home citalopram BPV (benign positional vertigo) 08/02/2015 Chronic pain of both knees 05/24/2020 Seeing Ortho: Dr. Cruz Coronary artery 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 08/02/2015 Not seeing cardiology Degenerative disc disease, lumbar 05/26/2018 Elevated hemoglobin (HCC) 04/17/2020 to be rechecked 05/17/2020 Elevated hemoglobin A1c 12/30/2017 Epidermal inclusion cyst 09/09/2019 anterior chest wall excised 08/2019 Essential hypertension 01/26/2017 GERD without esophagitis 07/08/2022 Graves disease Heart attack (HCC) Michael stent in heart History of COVID-19 07/08/202205/2022 History of non-ST elevation myocardial infarction (NSTEMI) 01/19/201001/2010 Intradermal nevus 12/30/2014 right inferrior medial breast Keratosis, inflamed seborrheic 12/30/2014 right upper back Left carpal tunnel syndrome 01/04/[address] 12/03/2021 Daughter Truong is DPOA Low vitamin B12 level 04/06/2014 Lumbar radicular pain 05/26/2018 Added automatically from request for surgery [id number] Lump or mass in breast 01/20/2023 Patient declined evaluation with imaging or Tx if it were to be cancer. 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 Treated with cryo 10/14/2016 Obesity, Class I, BMI 30-34.9 12/30/2018 Osteoarthritis 11/28/2015 Substance agreement signed 05/2020 for tramadol BID: Knees, Hips (Rt>Lt), substance agreement signed for tramadol Pain in right hip 04/29/2016 Personal history of colonic polyps 09/13/2006 hyperplastic Pulmonary emphysema (HCC) 08/02/2015 Changes of seen on chest x-ray 07/2014 Recurrent major depressive disorder, in partial remission (HCC) 04/14/2016 Severe obstructive sleep apnea AHI 32.5 04/24/2015 DME: [facility] Smoker 01/19/2010 Started at age 31 up to 1 PPD Stage 3a chronic kidney disease (HCC) 01/20/2023 Status post total replacement of right hip 12/30/2018 Trigger index finger of left hand 08/22/2015 Trigger middle finger of left hand 08/04/2015 Trochanteric bursitis of left hip 08/16/2019 Previous Surgical History PAST SURGICAL HISTORY Procedure Laterality Date 2D ECHO (EXEP) 12/21/2019 EF=60%, 1+ TI, HI, AI 2D ECHO (EXEP) 02/17/2021 EF= 60%, mod santos dysf, ARTHRP ACETBLR/PROX FEM PROSTC AGRFT/ALGRFT Right 12/30/2018 Hip replacement, total CC CORONARY STENT 12/21/2019 MARCOS to mLCx COLONOSCOPY 05/01/2016 serrated adenoma/Repeat 04/2019 COLONOSCOPY COLONOSCOPY AND POLYPECTOMY 09/13/2006 hyperplastic polyp- repeat 2015 CORONARY STENT EA VESSEL 01/2010 ESOPHAGOGASTRODUODENOSCOPY TRANSORAL DIAGNOSTIC 07/02/2021 LEXISCAN STRESS TEST 02/17/2021 negative NEUROPLASTY AND/TRANSPOS MEDIAN NRV CARPAL TUNNE Left 02/09/2018 Left carpal tunnel release SLING OPER STRES INCONTINENCE 1998, 2012 (Dr. Yi) XCAPSL CTRC RMVL INSJ IO LENS PROSTH W/O ECP Bilateral 09-28-12 and 11-07-12 Cataract Extraction with PC IOL Family History FAMILY HISTORY Problem Relation Age of Onset Cancer Father prostate Hypertension Father Alzheimer's Disease Brother at 78 Coronary Artery Disease Mother blood clots- at 65 Breast Cancer Daughter Breast Cancer Daughter Blood Clots Daughter while preganant- PE Patient Allergies ALLERGIES Allergen Reactions Iodine Anaphylaxis Hctz [Thiazides] Other: See Comments Dehydrated, nauseated and week Hi Inhibitors Cough Chantix [Vareniclin* Other: See Comments Bad dreams Lipitor [Atorvastat* Other: See Comments Muscle pains Mucinex [Guaifenesi* Mental Status Change dizziness and confusion Pravachol [Pravasta* Other: See Comments Muscle aches Zanaflex [Tizanidin* Other: See Comments Caused pt to feel jittery all over Current Medications Current Outpatient Medications on File Prior to Visit Medication Sig amLODIPine (NORVASC) 5 mg ta (more content not included)... [facility] 08-31-2023 Miscellaneous Notes Patient's notified and voiced understanding. Katherin Schmidt MA Let Kailyn her daughter know Nery's thyroid test shows she is now getting slightly too much replacement medication. I going to send in a new script for levothyroxine 137 mg tabs (currently on 125 mcg tabs). I want her to take one daily. Order placed to get lab repeated on or after 10/29/2023. documented in this encounter [facility] 08-30-2023 Note HNO ID: [id number] Author: Josie Swanson Ma Service: ? Author Type: ? Type: Progress Notes Filed: 08/30/2023 1:23 PM Note Text: PT ASSESSMENT - CASTING ROOM Dayanna presents for Application of brace. Applied DonJoy Reaction knee brace size XL/XXL to Right knee. Patient tolerated well. Patient has been instructed in Care and proper application of brace. Patient signed PPA electronically for billing. A copy will be sent to patient due to not having an email. Nuclear Operations Specialist's instructions were sent home with the patient. Josie Swanson Ma [facility] 08-30-2023 Note HNO ID: [id number] Author: Sugar Cruz MD Service: ? Author Type: Physician Type: Progress Notes Filed: 08/30/2023 1:22 PM Note Text: Sugar Cruz MD Department of Orthopaedics Orth[facility] [address] [facility] [address] Dept: [phone] Dept August 30, 2023 CHIEF COMPLAINT: Injections of the Right Knee and Injections of the Left Knee. HPI ASSESSMENT: M17.0 Primary osteoarthritis of both knees (primary encounter diagnosis) M25.561, M25.562, G89.29 Chronic pain of both knees SUMMARY/PLAN: Repeat injections both knees. Exam: Stable exams. Large Joint Arthro/Inj: bilateral knee joints Informed Consent Consent Obtained: Verbal [place] Protocol A moment to CARE was completed. SIGN IN Personnel directly involved with the procedure wore the appropriate PPE. Special Equipment: N/A Patient/Surrogate Stated/Verified: Patient name, Date of , Relevant allergies and Intended procedure TIME OUT Intended patient and procedure match the source document(s). Consent documented and matches the intended procedure. Relevant labs, photos, and/or imaging studies have been reviewed. Correct side/site marked and visible. Medications required for procedure verified. No fire risk assessment and interventions applicable. No implant(s) inserted. 08/30/2023 10:41 AM The procedure site was prepped in the usual sterile fashion. Site: bilateral knee joints Medications (Right): 6 mg betamethasone acetate-betamethasone sodium phosphate 6 mg/mL Medications (Left): 6 mg betamethasone acetate-betamethasone sodium phosphate 6 mg/mL Anesthetics (Right): 4 mL lidocaine (PF) 10 mg/mL (1 %) Anesthetics (Left): 4 mL lidocaine (PF) 10 mg/mL (1 %) Outcome: Tolerated well, no immediate complications Post-injection instructions were reviewed with the patient and the patient voiced understanding of these instructions. SIGN OUT All instruments, equipment, possible retained foreign bodies accounted for. Supporting Information Below: Medications: Current Outpatient Medications Medication Sig amLODIPine (NORVASC) 5 mg tablet Take 1 tablet by mouth once daily. metoprolol succinate ER (TOPROL XL) 100 mg Take 1 tablet by mouth once daily. citalopram (CELEXA) 40 mg tablet Take 1 tablet by mouth once daily. losartan (COZAAR) 100 mg tablet Take 1 tablet by mouth twice daily. omeprazole (PRILOSEC) 40 mg capsule Take 1 capsule by mouth twice daily. celecoxib (CELEBREX) 100 mg capsule Take 1 capsule by mouth twice daily. rosuvastatin (CRESTOR) 5 mg tablet Take 1 tablet by mouth once daily. famotidine (PEPCID) 20 mg tablet Take 1 tablet by mouth twice daily. Started in ER 05/2023 (Patient taking differently: Take 20 mg by mouth two times a day. Started in ER 05/2023- as needed) traMADol (ULTRAM) 50 mg tablet Take 1 tablet by mouth every 8 hours as needed for pain for up to 90 days. levothyroxine (LEVOXYL) 125 mcg tablet Take one tab once a day Wed-Wed and 2 tabs on Wednesday, Take on empty stomach. For Thyroid. ondansetron orally disintegrating (ZOFRAN ODT) 4 mg disintegrating tablet Take 1 tablet by mouth every 6 hours as needed for nausea/vomiting. fluticasone propionate (FLOVENT DISKUS) 100 mcg/actuation inhaler Inhale 1 Puff as instructed twice daily. albuterol HFA (PROVENTIL HFA, VENTOLIN HFA) 90 mcg/actuation inhaler Inhale 2 Puffs as instructed every 4 hours as needed. nitroglycerin sublingual (NITROQUICK) 0.4 mg SL tablet Dissolve 1 tablet under the tongue every 5 minutes as needed. aspirin, enteric coated (ASPIRIN, ENTERIC COATED) 81 mg EC tablet Take 81 mg by mouth once daily. cyanocobalamin (VITAMIN B-12) 1,000 mcg tab Take 1 tablet by mouth once daily. (Patient not taking: Reported on 01/20/2023) No current facility-administered medications for this visit. Allergies: Iodine, Hctz [Thiazides], Hi Inhibitors, Chantix [Varenicline], Lipitor [Atorvastatin Calcium], Mucinex [Guaifenesin], Pravachol [Pravastatin Sodium], and Zanaflex [Tizanidine] Sugar Cruz MD [facility] 08-30-2023 History of Presen t illness Narrative PT ASSESSMENT - CASTING ROOM Dayanna presents for Application of brace. Applied DonJoy Reaction knee brace size XL/XXL to Right knee. Patient tolerated well. Patient has been instructed in Care and proper application of brace. Patient signed PPA electronically for billing. A copy will be sent to patient due to not having an email. Nuclear Operations Specialist's instructions were sent home with the patient. Josie Swanson Ma Associated Order(s): Large Joint Arthro/Inj: bilateral knee joints Post-Procedure Diagnose(s): Primary osteoarthritis of both knees; Chronic pain of both knees Sugar Cruz MD Department of Orthopaedics Orthopaedics [facility] [address] [facility] [address] Dept: [phone] Dept August 30, 2023 CHIEF COMPLAINT: Injections of the Right Knee and Injections of the Left Knee. HPI ASSESSMENT: M17.0 Primary osteoarthritis of both knees (primary encounter diagnosis) M25.561, M25.562, G89.29 Chronic pain of both knees SUMMARY/PLAN: Repeat injections both knees. Exam: Stable exams. Large Joint Arthro/Inj: bilateral knee joints Informed Consent Consent Obtained: Verbal [place] Protocol A moment to CARE was completed. SIGN IN Personnel directly involved with the procedure wore the appropriate PPE. Special Equipment: N/A Patient/Surrogate Stated/Verified: Patient name, Date of , Relevant allergies and Intended procedure TIME OUT Intended patient and procedure match the source document(s). Consent documented and matches the intended procedure. Relevant labs, photos, and/or imaging studies have been reviewed. Correct side/site marked and visible. Medications required for procedure verified. No fire risk assessment and interventions applicable. No implant(s) inserted. 08/30/2023 10:41 AM The procedure site was prepped in the usual sterile fashion. Site: bilateral knee joints Medications (Right): 6 mg betamethasone acetate-betamethasone sodium phosphate 6 mg/mL Medications (Left): 6 mg betamethasone acetate-betamethasone sodium phosphate 6 mg/mL Anesthetics (Right): 4 mL lidocaine (PF) 10 mg/mL (1 %) Anesthetics (Left): 4 mL lidocaine (PF) 10 mg/mL (1 %) Outcome: Tolerated well, no immediate complications Post-injection instructions were reviewed with the patient and the patient voiced understanding of these instructions. SIGN OUT All instruments, equipment, possible retained foreign bodies accounted for. Supporting Information Below: Medications: Current Outpatient Medications Medication Sig amLODIPine (NORVASC) 5 mg tablet Take 1 tablet by mouth once daily. metoprolol succinate ER (TOPROL XL) 100 mg Take 1 tablet by mouth once daily. citalopram (CELEXA) 40 mg tablet Take 1 tablet by mouth once daily. losartan (COZAAR) 100 mg tablet Take 1 tablet by mouth twice daily. omeprazole (PRILOSEC) 40 mg capsule Take 1 capsule by mouth twice daily. celecoxib (CELEBREX) 100 mg capsule Take 1 capsule by mouth twice daily. rosuvastatin (CRESTOR) 5 mg tablet Take 1 tablet by mouth once daily. famotidine (PEPCID) 20 mg tablet Take 1 tablet by mouth twice daily. Started in ER 05/2023 (Patient taking differently: Take 20 mg by mouth two times a day. Started in ER 05/2023- as needed) traMADol (ULTRAM) 50 mg tablet Take 1 tablet by mouth every 8 hours as needed for pain for up to 90 days. levothyroxine (LEVOXYL) 125 mcg tablet Take one tab once a day and 2 tabs on Wednesday, Take on empty stomach. For Thyroid. ondansetron orally disintegrating (ZOFRAN ODT) 4 mg disintegrating tablet Take 1 tablet by mouth every 6 hours as needed for nausea/vomiting. fluticasone propionate (FLOVENT DISKUS) 100 mcg/actuation inhaler Inhale 1 Puff as instructed twice daily. albuterol HFA (PROVENTIL HFA, VENTOLIN HFA) 90 mcg/actuation inhaler Inhale 2 Puffs as instructed every 4 hours as needed. nitroglycerin sublingual (NITROQUICK) 0.4 mg SL tablet Dissolve 1 tablet under the tongue every 5 minutes as needed. aspirin, enteric coated (ASPIRIN, ENTERIC COATED) 81 mg EC tablet Take 81 mg by mouth once daily. cyanocobalamin (VITAMIN B-12) 1,000 mcg tab Take 1 tablet by mouth once daily. (Patient not taking: Reported on 01/20/2023) No current facility-administered medications for this visit. Allergies: Iodine, Hctz [Thiazides], Hi Inhibitors, Chantix [Varenicline], Lipitor [Atorvastatin Calcium], Mucinex [Guaifenesin], Pravachol [Pravastatin Sodium], and Zanaflex [Tizanidine] Sugar Cruz MD documented in this encounter [facility] 08-30-2023 Note HNO ID: [id number] Author: Rocio Arthur APRN.LIDAR ANALYST Service: ? Author Type: Nurse Practitioner Type: Progress Notes Filed: 08/30/2023 9:46 AM Note Text: Chief Complaint Patient presents with: Blood Pressure Check HPI Dayanna Garza is a 83 year old female who presents here today for Above Complaints.. Patient presents for BP follow up. Patient was initiated on norvasc 2.5mg a month ago by Dr. Rodriguez in addition to her metoprolol and losartan. Patient denies any side effects. Past medical history, appointments, medications, allergies reviewed. Previous Medical History PAST MEDICAL HISTORY Diagnosis Date Acquired hypothyroidism 08/02/2015 Advance directive discussed with patient 01/20/2023 Discussed 01/2023: Up to date Anxiety Anxiety 01/19/2010 -continue home citalopram BPV (benign positional vertigo) 08/02/2015 Chronic pain of both knees 05/24/2020 Seeing Ortho: Dr. Cruz Coronary artery 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 08/02/2015 Not seeing cardiology Degenerative disc disease, lumbar 05/26/2018 Elevated hemoglobin (HCC) 04/17/2020 to be rechecked 05/17/2020 Elevated hemoglobin A1c 12/30/2017 Epidermal inclusion cyst 09/09/2019 anterior chest wall excised 08/2019 Essential hypertension 01/26/2017 GERD without esophagitis 07/08/2022 Graves disease Heart attack (HCC) Michael stent in heart History of COVID-19 07/08/202205/2022 History of non-ST elevation myocardial infarction (NSTEMI) 01/19/201001/2010 Intradermal nevus 12/30/2014 right inferrior medial breast Keratosis, inflamed seborrheic 12/30/2014 right upper back Left carpal tunnel syndrome 01/04/[address] 12/03/2021 Daughter Truong is DPOA Low vitamin B12 level 04/06/2014 Lumbar radicular pain 05/26/2018 Added automatically from request for surgery [id number] Lump or mass in breast 01/20/2023 Patient declined evaluation with imaging or Tx if it were to be cancer. 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 Treated with cryo 10/14/2016 Obesity, Class I, BMI 30-34.9 12/30/2018 Osteoarthritis 11/28/2015 Substance agreement signed 05/2020 for tramadol BID: Knees, Hips (Rt>Lt), substance agreement signed for tramadol Pain in right hip 04/29/2016 Personal history of colonic polyps 09/13/2006 hyperplastic Pulmonary emphysema (HCC) 08/02/2015 Changes of seen on chest x-ray 07/2014 Recurrent major depressive disorder, in partial remission (HCC) 04/14/2016 Severe obstructive sleep apnea AHI 32.5 04/24/2015 DME: [employer] Smoker 01/19/2010 Started at age 31 up to 1 PPD Stage 3a chronic kidney disease (HCC) 01/20/2023 Status post total replacement of right hip 12/30/2018 Trigger index finger of left hand 08/22/2015 Trigger middle finger of left hand 08/04/2015 Trochanteric bursitis of left hip 08/16/2019 Previous Surgical History PAST SURGICAL HISTORY Procedure Laterality Date 2D ECHO (EXEP) 12/21/2019 EF=60%, 1+ TI, HI, AI 2D ECHO (EXEP) 02/17/2021 EF= 60%, mod santos dysf, ARTHRP ACETBLR/PROX FEM PROSTC AGRFT/ALGRFT Right 12/30/2018 Hip replacement, total CC CORONARY STENT 12/21/2019 MARCOS to mLCx COLONOSCOPY 05/01/2016 serrated adenoma/Repeat 04/2019 COLONOSCOPY COLONOSCOPY AND POLYPECTOMY 09/13/2006 hyperplastic polyp- repeat 2016 CORONARY STENT EA VESSEL 01/2010 ESOPHAGOGASTRODUODENOSCOPY TRANSORAL DIAGNOSTIC 07/02/2021 LEXISCAN STRESS TEST 02/17/2021 negative NEUROPLASTY AND/TRANSPOS MEDIAN NRV CARPAL TUNNE Left 02/09/2018 Left carpal tunnel release SLING OPER STRES INCONTINENCE 1998, 2012 (Dr. Yi) XCAPSL CTRC RMVL INSJ IO LENS PROSTH W/O ECP Bilateral 09-28-12 and 11-07-12 Cataract Extraction with PC IOL Family History FAMILY HISTORY Problem Relation Age of Onset Cancer Father prostate Hypertension Father Alzheimer's Disease Brother at 78 Coronary Artery Disease Mother blood clots- at 65 Breast Cancer Daughter Breast Cancer Daughter Blood Clots Daughter while preganant- PE Patient Allergies ALLERGIES Allergen Reactions Iodine Anaphylaxis Hctz [Thiazides] Other: See Comments Dehydrated, nauseated and week Hi Inhibitors Cough Chantix [Vareniclin* Other: See Comments Bad dreams Lipitor [Atorvastat* Other: See Comments Muscle pains Mucinex [Guaifenesi* Mental Status Change dizziness and confusion Pravachol [Pravasta* Other: See Comments Muscle aches Zanaflex [Tizanidin* Other: See Comments Caused pt to feel jittery all over Current Medications Current Outpatient Medications on File Prior to Visit Medication Sig metoprolol succinate ER (TOPROL XL) 100 mg Take 1 tablet by satish (more content not included)... [facility] 08-30-2023 History of Presen t illness Narrative Chief Complaint Patient presents with: Blood Pressure Check HPI Dayanna Garza is a 83 year old female who presents here today for Above Complaints.. Patient presents for BP follow up. Patient was initiated on norvasc 2.5mg a month ago by Dr. Rodriguez in addition to her metoprolol and losartan. Patient denies any side effects. Past medical history, appointments, medications, allergies reviewed. Previous Medical History PAST MEDICAL HISTORY Diagnosis Date Acquired hypothyroidism 08/02/2015 Advance directive discussed with patient 01/20/2023 Discussed 01/2023: Up to date Anxiety Anxiety 01/19/2010 -continue home citalopram BPV (benign positional vertigo) 08/02/2015 Chronic pain of both knees 05/24/2020 Seeing Ortho: Dr. Cruz Coronary artery 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 08/02/2015 Not seeing cardiology Degenerative disc disease, lumbar 05/26/2018 Elevated hemoglobin (HCC) 04/17/2020 to be rechecked 05/17/2020 Elevated hemoglobin A1c 12/30/2017 Epidermal inclusion cyst 09/09/2019 anterior chest wall excised 08/2019 Essential hypertension 01/26/2017 GERD without esophagitis 07/08/2022 Graves disease Heart attack (HCC) Michael stent in heart History of COVID-19 07/08/202205/2022 History of non-ST elevation myocardial infarction (NSTEMI) 01/19/201001/2010 Intradermal nevus 12/30/2014 right inferrior medial breast Keratosis, inflamed seborrheic 12/30/2014 right upper back Left carpal tunnel syndrome 01/04/[address] 12/03/2021 Daughter Truong is DPOA Low vitamin B12 level 04/06/2014 Lumbar radicular pain 05/26/2018 Added automatically from request for surgery [id number] Lump or mass in breast 01/20/2023 Patient declined evaluation with imaging or Tx if it were to be cancer. 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 Treated with cryo 10/14/2016 Obesity, Class I, BMI 30-34.9 12/30/2018 Osteoarthritis 11/28/2015 Substance agreement signed 05/2020 for tramadol BID: Knees, Hips (Rt>Lt), substance agreement signed for tramadol Pain in right hip 04/29/2016 Personal history of colonic polyps 09/13/2006 hyperplastic Pulmonary emphysema ([facility]) 08/02/2015 Changes of seen on chest x-ray 07/2014 Recurrent major depressive disorder, in partial remission ([facility]) 04/14/2016 Severe obstructive sleep apnea AHI 32.5 04/24/2015 DME: [employer] Smoker 01/19/2010 Started at age 31 up to 1 PPD Stage 3a chronic kidney disease (HCC) 01/20/2023 Status post total replacement of right hip 12/30/2018 Trigger index finger of left hand 08/22/2015 Trigger middle finger of left hand 08/04/2015 Trochanteric bursitis of left hip 08/16/2019 Previous Surgical History PAST SURGICAL HISTORY Procedure Laterality Date 2D ECHO (EXEP) 12/21/2019 EF=60%, 1+ TI, HI, AI 2D ECHO (EXEP) 02/17/2021 EF= 60%, mod santos dysf, ARTHRP ACETBLR/PROX FEM PROSTC AGRFT/ALGRFT Right 12/30/2018 Hip replacement, total CC CORONARY STENT 12/21/2019 MARCOS to mLCx COLONOSCOPY 05/01/2016 serrated adenoma/Repeat 04/2019 COLONOSCOPY COLONOSCOPY & POLYPECTOMY 09/13/2006 hyperplastic polyp- repeat 2016 CORONARY STENT EA VESSEL 01/2010 ESOPHAGOGASTRODUODENOSCOPY TRANSORAL DIAGNOSTIC 07/02/2021 LEXISCAN STRESS TEST 02/17/2021 negative NEUROPLASTY &/TRANSPOS MEDIAN NRV CARPAL TUNNE Left 02/09/2018 Left carpal tunnel release SLING OPER STRES INCONTINENCE 1998, 2012 (Dr. Yi) XCAPSL CTRC RMVL INSJ IO LENS PROSTH W/O ECP Bilateral 09-28-12 and 11-07-12 Cataract Extraction with PC IOL Family History FAMILY HISTORY Problem Relation Age of Onset Cancer Father prostate Hypertension Father Alzheimer's Disease Brother at 78 Coronary Artery Disease Mother blood clots- at 65 Breast Cancer Daughter Breast Cancer Daughter Blood Clots Daughter while preganant- PE Patient Allergies ALLERGIES Allergen Reactions Iodine Anaphylaxis Hctz [Thiazides] Other: See Comments Dehydrated, nauseated and week Hi Inhibitors Cough Chantix [Vareniclin* Other: See Comments Bad dreams Lipitor [Atorvastat* Other: See Comments Muscle pains Mucinex [Guaifenesi* Mental Status Change dizziness and confusion Pravachol [Pravasta* Other: See Comments Muscle aches Zanaflex [Tizanidin* Other: See Comments Caused pt to feel jittery all over Current Medications Current Outpatient Medications on File Prior to Visit Medication Sig metoprolol succinate ER (TOPROL XL) 100 mg Take 1 tablet by mouth once daily. citalopram (CELEXA) 40 mg tablet Take 1 tablet by mouth once daily. losartan (COZAAR) 100 mg tablet Take 1 tablet by mouth twice daily. omeprazole (PRILOSEC) 40 mg capsule Take 1 capsule by mouth twice daily. celecoxib (CELEBREX) 100 mg capsule Take 1 capsule by mouth twice daily. rosuvastatin (CRESTOR) 5 mg tablet Take 1 tablet by mouth once daily. famotidine (PEPCID) 20 mg tablet Take 1 tablet by mouth twice daily. Started in ER 05/2023 amLODIPine (NORVASC) 2.5 mg tablet Take 1 tablet by mouth once daily. traMADol (ULTRAM) 50 mg tablet Take 1 tablet by mouth every 8 hours as needed for pain for up to 90 days. levothyroxine (LEVOXYL) 125 mcg tablet Take one tab once a day Wed-Wed and 2 tabs on Wednesday, Take on empty stomach. For Thyroid. ondansetron orally disintegrating (ZOFRAN ODT) 4 mg disintegrating tablet Take 1 tablet by mouth every 6 hours as needed for nausea/vomiting. fluticasone propionate (FLOVENT DISKUS) 100 mcg/actuation inhaler Inhale 1 Puff as instructed twice daily. albuterol HFA (PROVENTIL HFA, VENTOLIN HFA) 90 mcg/actuation inhaler Inhale 2 Puffs as instructed every 4 hours as needed. cyanocobalamin (VITAMIN B-12) 1,000 mcg tab Take 1 tablet by mouth once daily. (Patient not taking: Reported on 01/20/2023) nitroglycerin sublingual (NITROQUICK) 0.4 mg SL tablet Dissolve 1 tablet under the tongue every 5 minutes as needed. aspirin, enteric coated (ASPIRIN, ENTERIC COATED) 81 mg EC tablet Take 81 mg by mouth once daily. No current facility-administered medications on file prior to visit. Social History Social History Tobacco Use Smoking status: Former Packs/day: 1 Types: Cigarettes Quit date: 04/08/2022 Years since quittin.3 Smokeless tobacco: Never Tobacco comments: 3 cigarettes per day Vaping Use Vaping Use: current everyday user Substances: Nicotine Devices: Pre-filled or refillable cartridge Substance Use Topics Alcohol use: Yes Comment: occasional glass of wine, once a month Drug use: No Review of Symptoms REVIEW OF SYSTEMS SEE HPI EXAM: BP 186/64 Pulse 62 Resp 16 Ht 160 cm (5' 3 ) Wt 74.8 kg (165 lb) BMI 29.23 kg/m General Appearance: Well appearing, alert, in no acute distress, well-hydrated, well nourished.. Lungs: Lungs clear to auscultation. No wheezing, rhonchi, rales.. Heart: RRR without murmur, gallop, or rubs. No ectopy. Health Maintenance List RSV Vaccine(1 - 1-dose 60+ series) Never done Covid-19 Vaccine( season) due on 07/09/2023 LDL Cholesterol due on 01/13/2024 Diabetes Screening due on 07/06/2026 DTaP,Tdap,Td Vaccine(2 - Td or Tdap) due on 04/22/2033 Bone Density Screening Completed Spirometry Completed Influenza Vaccine Completed Advance Directive Discussion Completed Shingrix Vaccine Completed Pneumococcal Vaccine: 65+ Completed Colorectal Cancer Screening Discontinued Data reviewed Last 5 Encounter BP Readings: Date: BP: 08/30/2023 168/80 07/23/2023 182/60 04/22/2023 152/68 01/20/2023 148/82 10/12/2022 136/78 ASSESSMENT/PLAN: 1. Essential hypertension - ICD9: 401.9, ICD10: I10 (primary diagnosis) - Uncontrolled - Continue current medications - Increase amlodipine - Recommend home blood pressure monitoring, to bring results to next visit - Encouraged sodium restriction, DASH or Mediterranean diet - Recommend regular aerobic exercise - AMLODIPINE 5 MG TABLET 2. Encounter for immunization - ICD9: V03.89, ICD10: Z23 - PFI[employer]ER[employer] COVID-19 VACCINE (2022- SE[place]) AGE 12+ YR Rocio Arthur APRN.LIDAR ANALYST documented in this encounter [facility] 07-23-2023 Note HNO ID: [id number] Author: Lane Rodriguez MD Service: ? Author Type: Physician Type: Progress Notes Filed: 07/23/2023 1:28 PM Note Text: Chief Complaint No chief complaint on file. HPI Dayanna Garza is a 83 year old female who presents here today for 6 month follow up. Patient with Hx of hypothyroidism, CAD, COPD, HTN, elevated A1c, hyperlipidemia, emphysema, depression, anxiety, obesity, MATT, smoker, low B12, Arthritis with chronic pain especially the knees as well as those reviewed and addressed below and in ROS. Patient has decided to no longer see cardio or pulmonary. Since last appt she is taking her inhaler daily and breathing has been better. tramadol continues to be affective for controlling her knee pain when she needs it. No issues or side affects We recently increased the levothyroxine and will get TSH in 2 months. Patient has been seen in the ER twice for chest pain and was felt to be indigestion. Patient has started Pepcid 20 mg twice a day since the last visit and has not had any further pains. A1C 5.9 07/06/2023 5.7 01/12/[address] Cruz 05/2023 - ostearthritis in both knees Past medical history, appointments, medications, allergies reviewed. Previous Medical History PAST MEDICAL HISTORY Diagnosis Date Acquired hypothyroidism 08/02/2015 Advance directive discussed with patient 01/20/2023 Discussed 01/2023: Up to date Anxiety Anxiety 01/19/2010 -continue home citalopram BPV (benign positional vertigo) 08/02/2015 Chronic pain of both knees 05/24/2020 Seeing Ortho: Dr. Cruz Coronary artery 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 08/02/2015 Not seeing cardiology Degenerative disc disease, lumbar 05/26/2018 Elevated hemoglobin (HCC) 04/17/2020 to be rechecked 05/17/2020 Elevated hemoglobin A1c 12/30/2017 Epidermal inclusion cyst 09/09/2019 anterior chest wall excised 08/2019 Essential hypertension 01/26/2017 GERD without esophagitis 07/08/2022 Graves disease Heart attack (HCC) Michael stent in heart History of COVID-19 07/08/202205/2022 History of non-ST elevation myocardial infarction (NSTEMI) 01/19/201001/2010 Intradermal nevus 12/30/2014 right inferrior medial breast Keratosis, inflamed seborrheic 12/30/2014 right upper back Left carpal tunnel syndrome 01/04/[address] 12/03/2021 Daughter Truong is DPOA Low vitamin B12 level 04/06/2014 Lumbar radicular pain 05/26/2018 Added automatically from request for surgery [id number] Lump or mass in breast 01/20/2023 Patient declined evaluation with imaging or Tx if it were to be cancer. 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 Treated with cryo 10/14/2016 Obesity, Class I, BMI 30-34.9 12/30/2018 Osteoarthritis 11/28/2015 Substance agreement signed 05/2020 for tramadol BID: Knees, Hips (Rt>Lt), substance agreement signed for tramadol Pain in right hip 04/29/2016 Personal history of colonic polyps 09/13/2006 hyperplastic Pulmonary emphysema (HCC) 08/02/2015 Changes of seen on chest x-ray 07/2014 Recurrent major depressive disorder, in partial remission (HCC) 04/14/2016 Severe obstructive sleep apnea AHI 32.5 04/24/2015 DME: [employer] Smoker 01/19/2010 Started at age 31 up to 1 PPD Stage 3a chronic kidney disease (HCC) 01/20/2023 Status post total replacement of right hip 12/30/2018 Trigger index finger of left hand 08/22/2015 Trigger middle finger of left hand 08/04/2015 Trochanteric bursitis of left hip 08/16/2019 Previous Surgical History PAST SURGICAL HISTORY Procedure Laterality Date 2D ECHO (EXEP) 12/21/2019 EF=60%, 1+ TI, HI, AI 2D ECHO (EXEP) 02/17/2021 EF= 60%, mod santos dysf, ARTHRP ACETBLR/PROX FEM PROSTC AGRFT/ALGRFT Right 12/30/2018 Hip replacement, total CC CORONARY STENT 12/21/2019 MARCOS to mLCx COLONOSCOPY 05/01/2016 serrated adenoma/Repeat 04/2019 COLONOSCOPY COLONOSCOPY AND POLYPECTOMY 09/13/2006 hyperplastic polyp- repeat 2015 CORONARY STENT EA VESSEL 01/2010 ESOPHAGOGASTRODUODENOSCOPY TRANSORAL DIAGNOSTIC 07/02/2021 LEXISCAN STRESS TEST 02/17/2021 negative NEUROPLASTY AND/TRANSPOS MEDIAN NRV CARPAL TUNNE Left 02/09/2018 Left carpal tunnel release SLING OPER STRES INCONTINENCE 1998, 2012 (Dr. Yi) XCAPSL CTRC RMVL INSJ IO LENS PROSTH W/O ECP Bilateral 09-28-12 and 11-07-12 Cataract Extraction with PC IOL Family History FAMILY HISTORY Problem Relation Age of Onset Cancer Father prostate Hypertension Father Alzheimer's Disease Brother at 78 Coronary Artery Disease Mother blood clots- at 65 Breast Cancer Daughter Breast Cancer Daughter Blood Clots Daughter while preganant- (more content not included)... [facility] 07-23-2023 History of Presen t illness Narrative Chief Complaint No chief complaint on file. JOSSELIN Garza is a 83 year old female who presents here today for 6 month follow up. Patient with Hx of hypothyroidism, CAD, COPD, HTN, elevated A1c, hyperlipidemia, emphysema, depression, anxiety, obesity, MATT, smoker, low B12, Arthritis with chronic pain especially the knees as well as those reviewed and addressed below and in ROS. Patient has decided to no longer see cardio or pulmonary. Since last appt she is taking her inhaler daily and breathing has been better. tramadol continues to be affective for controlling her knee pain when she needs it. No issues or side affects We recently increased the levothyroxine and will get TSH in 2 months. Patient has been seen in the ER twice for chest pain and was felt to be indigestion. Patient has started Pepcid 20 mg twice a day since the last visit and has not had any further pains. A1C 5.9 07/06/2023 5.7 01/12/[address] Cruz 05/2023 - ostearthritis in both knees Past medical history, appointments, medications, allergies reviewed. Previous Medical History PAST MEDICAL HISTORY Diagnosis Date Acquired hypothyroidism 08/02/2015 Advance directive discussed with patient 01/20/2023 Discussed 01/2023: Up to date Anxiety Anxiety 01/19/2010 -continue home citalopram BPV (benign positional vertigo) 08/02/2015 Chronic pain of both knees 05/24/2020 Seeing Ortho: Dr. Cruz Coronary artery 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 08/02/2015 Not seeing cardiology Degenerative disc disease, lumbar 05/26/2018 Elevated hemoglobin (HCC) 04/17/2020 to be rechecked 05/17/2020 Elevated hemoglobin A1c 12/30/2017 Epidermal inclusion cyst 09/09/2019 anterior chest wall excised 08/2019 Essential hypertension 01/26/2017 GERD without esophagitis 07/08/2022 Graves disease Heart attack (HCC) Michael stent in heart History of COVID-19 07/08/202205/2022 History of non-ST elevation myocardial infarction (NSTEMI) 01/19/201001/2010 Intradermal nevus 12/30/2014 right inferrior medial breast Keratosis, inflamed seborrheic 12/30/2014 right upper back Left carpal tunnel syndrome 01/04/[address] 12/03/2021 Daughter Truong is DPOA Low vitamin B12 level 04/06/2014 Lumbar radicular pain 05/26/2018 Added automatically from request for surgery [id number] Lump or mass in breast 01/20/2023 Patient declined evaluation with imaging or Tx if it were to be cancer. 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 Treated with cryo 10/14/2016 Obesity, Class I, BMI 30-34.9 12/30/2018 Osteoarthritis 11/28/2015 Substance agreement signed 05/2020 for tramadol BID: Knees, Hips (Rt>Lt), substance agreement signed for tramadol Pain in right hip 04/29/2016 Personal history of colonic polyps 09/13/2006 hyperplastic Pulmonary emphysema (HCC) 08/02/2015 Changes of seen on chest x-ray 07/2014 Recurrent major depressive disorder, in partial remission (HCC) 04/14/2016 Severe obstructive sleep apnea AHI 32.5 04/24/2015 DME: [employer] Smoker 01/19/2010 Started at age 31 up to 1 PPD Stage 3a chronic kidney disease (HCC) 01/20/2023 Status post total replacement of right hip 12/30/2018 Trigger index finger of left hand 08/22/2015 Trigger middle finger of left hand 08/04/2015 Trochanteric bursitis of left hip 08/16/2019 Previous Surgical History PAST SURGICAL HISTORY Procedure Laterality Date 2D ECHO (EXEP) 12/21/2019 EF=60%, 1+ TI, HI, AI 2D ECHO (EXEP) 02/17/2021 EF= 60%, mod santos dysf, ARTHRP ACETBLR/PROX FEM PROSTC AGRFT/ALGRFT Right 12/30/2018 Hip replacement, total CC CORONARY STENT 12/21/2019 MARCOS to mLCx COLONOSCOPY 05/01/2016 serrated adenoma/Repeat 04/2019 COLONOSCOPY COLONOSCOPY & POLYPECTOMY 09/13/2006 hyperplastic polyp- repeat 2016 CORONARY STENT EA VESSEL 01/2010 ESOPHAGOGASTRODUODENOSCOPY TRANSORAL DIAGNOSTIC 07/02/2021 LEXISCAN STRESS TEST 02/17/2021 negative NEUROPLASTY &/TRANSPOS MEDIAN NRV CARPAL TUNNE Left 02/09/2018 Left carpal tunnel release SLING OPER STRES INCONTINENCE 1998, 2012 (Dr. Yi) XCAPSL CTRC RMVL INSJ IO LENS PROSTH W/O ECP Bilateral 09-28-12 and 11-07-12 Cataract Extraction with PC IOL Family History FAMILY HISTORY Problem Relation Age of Onset Cancer Father prostate Hypertension Father Alzheimer's Disease Brother at 78 Coronary Artery Disease Mother blood clots- at 65 Breast Cancer Daughter Breast Cancer Daughter Blood Clots Daughter while preganant- PE Patient Allergies ALLERGIES Allergen Reactions Iodine Anaphylaxis Hctz [Thiazides] Other: See Comments Dehydrated, nauseated and week Hi Inhibitors Cough Chantix [Vareniclin* Other: See Comments Bad dreams Lipitor [Atorvastat* Other: See Comments Muscle pains Mucinex [Guaifenesi* Mental Status Change dizziness and confusion Pravachol [Pravasta* Other: See Comments Muscle aches Zanaflex [Tizanidin* Other: See Comments Caused pt to feel jittery all over Current Medications Current Outpatient Medications on File Prior to Visit Medication Sig traMADol (ULTRAM) 50 mg tablet Take 1 tablet by mouth every 8 hours as needed for pain for up to 90 days. levothyroxine (LEVOXYL) 125 mcg tablet Take one tab once a day and 2 tabs on Wednesday, Take on empty stomach. For Thyroid. famotidine (PEPCID) 20 mg tablet Take 20 mg by mouth twice daily. metoprolol succinate ER (TOPROL XL) 100 mg Take 1 tablet by mouth once daily. citalopram (CELEXA) 40 mg tablet Take 1 tablet by mouth once daily. losartan (COZAAR) 100 mg tablet Take 1 tablet by mouth twice daily. omeprazole (PRILOSEC) 40 mg capsule Take 1 capsule by mouth twice daily. celecoxib (CELEBREX) 100 mg capsule Take 1 capsule by mouth twice daily. rosuvastatin (CRESTOR) 5 mg tablet Take 1 tablet by mouth once daily. ondansetron orally disintegrating (ZOFRAN ODT) 4 mg disintegrating tablet Take 1 tablet by mouth every 6 hours as needed for nausea/vomiting. fluticasone propionate (FLOVENT DISKUS) 100 mcg/actuation inhaler Inhale 1 Puff as instructed twice daily. albuterol HFA (PROVENTIL HFA, VENTOLIN HFA) 90 mcg/actuation inhaler Inhale 2 Puffs as instructed every 4 hours as needed. cyanocobalamin (VITAMIN B-12) 1,000 mcg tab Take 1 tablet by mouth once daily. (Patient not taking: Reported on 01/20/2023) nitroglycerin sublingual (NITROQUICK) 0.4 mg SL tablet Dissolve 1 tablet under the tongue every 5 minutes as needed. aspirin, enteric coated (ASPIRIN, ENTERIC COATED) 81 mg EC tablet Take 81 mg by mouth once daily. COMPOUNDED PRESCRIPTION CPAP chin strap, #: one Dx: G47.33 (Patient not taking: No sig reported) CPAP Dream Wear mask for CPAP. Dx MATT (Patient not taking: No sig reported) No current facility-administered medications on file prior to visit. Social History Social History Tobacco Use Smoking status: Former Packs/day: 1 Types: Cigarettes Quit date: 04/08/2022 Years since quittin.2 Smokeless tobacco: Never Tobacco comments: 3 cigarettes per day Vaping Use Vaping Use: current everyday user Substances: Nicotine Devices: Pre-filled or refillable cartridge Substance Use Topics Alcohol use: Yes Comment: occasional glass of wine, once a month Drug use: No Review of Symptoms REVIEW OF SYSTEMS GENERAL: No weight loss, malaise or fevers NECK: Negative for lumps, goiter, pain and significant neck swelling RESPIRATORY: Negative for cough, hemoptysis, wheezing, COPD, dyspnea or shortness of breath CARDIOVASCULAR: Negative for recent chest pain, leg swelling, hypertension, CHF or palpitations GI: No vomiting, or diarrhea and See HPI some nausea : No history of dysuria, frequency or incontinence PSYCH: Negative for sleep disturbance, mood disorder and recent psychosocial stressors ENDOCRINE: Negative for polyuria, polydipsia and goiter Musc: see HPI NEURO: No history of headaches, syncope, paralysis, seizures or tremors EXAM: BP 195/70 Pulse (!) 56 Resp 16 Wt 77.1 kg (170 lb) SpO2 94% BMI 29.64 kg/m BP 182/60 Pulse (!) 56 Resp 16 Wt 77.1 kg (170 lb) SpO2 94% BMI 29.64 kg/m Last 5 Encounter Wt Readings: Date: Wt: 07/23/2023 77.1 kg (170 lb) 04/22/2023 77.6 kg (171 lb) 01/20/2023 76.2 kg (168 lb) 10/12/2022 75.8 kg (167 lb) 09/30/2022 76.7 kg (169 lb) General Appearance: Well appearing, alert, in no acute distress, well-hydrated, well nourished. and Overweight. Eyes: Anicteric sclera. Pupils are equally round and reactive to light. Extraocular movements are intact. . Oropharynx: Lips, mucosa, and tongue normal, teeth and gums normal, oropharynx normal. Neck: Supple, no adenopathy; thyroid symmetric, normal size, no bruits. Lungs: Lungs clear to auscultation. No wheezing, rhonchi, rales.. Heart: RRR without murmur, gallop, or rubs. No ectopy. Abdomen: Normal abdominal exam, Abdomen soft, non-tender. Bowel sounds normal. No masses, organomegaly. Extremities: No deformities, there is mild pitting edema bilaterally. There is venous congestion bilaterally. Musculoskeletal: Muscular strength intact, No joint swelling, deformity, or tenderness. Peripheral Pulses: Normal. Neurologic: Gait normal. Sensation grossly intact.. Health Maintenance List Covid-19 Vaccine(6 - Moderna series) due on 01/01/2023 Influenza Vaccine(1) due on 07/09/2023 LDL Cholesterol due on 01/13/2024 Diabetes Screening due on 07/06/2026 DTaP,Tdap,Td Vaccine(2 - Td or Tdap) due on 04/22/2033 Bone Density Screening Completed Spirometry Completed Advance Directive Discussion Completed Shingrix Vaccine Completed Pneumococcal Vaccine: 65+ Completed Colorectal Cancer Screening Discontinued Data reviewed Component Latest Ref Rng & Units 01/12/2023 07/06/2023 WBC 3.70 - 11.00 k/uL 9.70 RBC 3.90 - 5.20 m/uL 4.84 Hemoglobin 11.5 - 15.5 g/dL 14.0 Hematocrit 36.0 - 46.0 % 43.0 MCV 80.0 - 100.0 fL 88.8 MCH 26.0 - 34.0 pg 28.9 MCHC 30.5 - 36.0 g/dL 32.6 RDW-CV 11.5 - 15.0 % 14.2 Platelet Count 150 - 400 k/uL 251 MPV 9.0 - 12.7 fL 10.3 Neut% % 76.0 Abs Neut (ANC) 1.45 - 7.50 k/uL 7.37 Lymph% % 13.5 Abs Lymph 1.00 - 4.00 k/uL 1.31 Elliott% % 6.7 Abs Elliott <0.87 k/uL 0.65 Eosin% % 3.1 Abs Eosin <0.46 k/uL 0.30 Baso% % 0.5 Abs Baso <0.11 k/uL 0.05 Immature Gran % % 0.2 IMMATURE GRANS (ABS) <0.10 k/uL <0.03 NRBC /100 WBC 0.0 Absolute nRBC <0.01 k/uL <0.01 DTYPE Auto Protein, Total 6.3 - 8.0 g/dL 6.6 Albumin 3.9 - 4.9 g/dL 4.0 Calcium 8.5 - 10.2 mg/dL 9.1 9.5 Bilirubin, Total 0.2 - 1.3 mg/dL 0.5 Alkaline Phosphatase 34 - 123 U/L 50 AST 13 - 35 U/L 14 ALT 7 - 38 U/L 6 (L) Glucose 74 - 99 mg/dL 88 94 BUN 7 - 21 mg/dL 27 (H) 20 Creatinine 0.58 - 0.96 mg/dL 1.02 (H) 0.99 (H) Sodium 136 - 144 mmol/L 139 138 Potassium 3.7 - 5.1 mmol/L 4.3 4.6 Chloride 97 - 105 mmol/L 101 102 CO2 22 - 30 mmol/L 27 28 Anion Gap 9 - 18 mmol/L 11 8 (L) eGFR >=60 mL/min/1.73m 55 (L) 57 (L) Cholesterol, Total <200 mg/dL 167 Triglyceride <150 mg/dL 104 HDL Cholesterol >39 mg/dL 56 Non HDL Cholesterol <130 mg/dL 111 Fasting Time hrs 12 VLDL Cholesterol <30 mg/dL 21 TC:HDL Ratio <5.10 2.98 LDL Cholesterol <100 mg/dL 90 LDL:HDL Ratio <2.54 1.61 Hemoglobin A1C 4.3 - 5.6 % 5.7 (H) 5.9 (H) Estimated Average Glucose mg/dL 117 123 Vitamin B12 232 - 1,245 pg/mL 284 361 TSH 0.270 - 4.200 mIU/L 0.348 4.550 (H) Magnesium 1.7 - 2.3 mg/dL 1.8 A/P ASSESSMENT/PLAN: 1. Essential hypertension - ICD9: 401.9, ICD10: I10 (primary diagnosis) - Uncontrolled - Continue current medications - Start amlodipine 2.5 mg a day. F/u 4 weeks HTN check - Recommend home blood pressure monitoring, to bring results to next visit - Encouraged sodium restriction, DASH or Mediterranean diet - Recommend regular aerobic exercise 2. Mixed hyperlipidemia - ICD9: 272.2, ICD10: E78.2 - Controlled - Continue current medications - Counseled on healthy diet and regular exercise 3. Elevated hemoglobin A1c - ICD9: 790.29, ICD10: R73.09 - stable control with diet. 4. Elevated hemoglobin (HCC) - ICD9: 282.7, ICD10: D58.2 Last lab was ok. 5. Coronary artery 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 - ICD9: 414.00, 414.3, ICD10: I25.10, I25.83 - clinically stable no changes. 6. Pulmonary emphysema, unspecified emphysema type (HCC) - ICD9: 492.8, ICD10: J43.9 - improved with taking her inhaler daily. 7. Stage 3a chronic kidney disease (HCC) - ICD9: 585.3, ICD10: N18.31 - improved. Patient again advised to get 7-8 8 ounces of water a day. 8. GERD without esophagitis - ICD9: 530.81, ICD10: K21.9 - Continue treatment with Prilosec 40 mg BID and pepcid 20 mg BID 9. Acquired hypothyroidism - ICD9: 244.9, ICD10: E03.9 - Instructed patient on importance of taking on an empty stomach either first thing in the morning or at bedtime. - continue current dose of Synthroid Will check TSH in 2 months 10. Anxiety - ICD9: 300.00, ICD10: F41.9 - stable with Celexa 11. Recurrent major depressive disorder, in partial remission (HCC) - ICD9: 296.35, ICD10: F33.41 - as per #10 12. Low vitamin B12 level - ICD9: 266.2, ICD10: E53.8 - cont replacement 13. Obesity, Class I, BMI 30-34.9 - ICD9: 278.00, ICD10: E66.9 - stable 14. Smoker - ICD9: 305.1, ICD10: F17.200 - Cessation encouraged. - Counseling was given focusing on the harmful effects of this addiction especially given the patient's medical condition(s) which will be worsened because of the chemicals in tobacco. - patient not interested in quitting. Requested Prescriptions Signed Prescriptions Disp Refills metoprolol succinate ER (TOPROL XL) 100 mg 90 tablet 1 Sig: Take 1 tablet by mouth once daily. citalopram (CELEXA) 40 mg tablet 90 tablet 1 Sig: Take 1 tablet by mouth once daily. losartan (COZAAR) 100 mg tablet 180 tablet 1 Sig: Take 1 tablet by mouth twice daily. omeprazole (PRILOSEC) 40 mg capsule 180 capsule 1 Sig: Take 1 capsule by mouth twice daily. celecoxib (CELEBREX) 100 mg capsule 180 capsule 1 Sig: Take 1 capsule by mouth twice daily. rosuvastatin (CRESTOR) 5 mg tablet 90 tablet 1 Sig: Take 1 tablet by mouth once daily. famotidine (PEPCID) 20 mg tablet Sig: Take 1 tablet by mouth twice daily. Started in ER 05/2023 amLODIPine (NORVASC) 2.5 mg tablet 90 tablet 1 Sig: Take 1 tablet by mouth once daily. F/u 4 weeks HTN check F/u 3 months pain meds F/u 6 months extensive check CMP, lipid, UA, A1c, CBC, B12, Mg, Lane Rodriguez MD documented in this encounter [facility] 07-13-2023 Miscellaneous Notes The following approved medication requests have been transmitted electronically. Requested Prescriptions Signed Prescriptions Disp Refills traMADol (ULTRAM) 50 mg tablet 270 tablet 0 Sig: Take 1 tablet by mouth every 8 hours as needed for pain for up to 90 days. Authorizing Provider: JOSE JUAN WHITMAN PA-C PDMP website checked and validated. All prescriptions have been APPROPRIATELY filled. No suspicious activity was identified. 07/13/2023 by Jose Juan Whitman PA-C Last office visit: 04/22/23 F/u scheduled: 07/23/23 Last refilled on: Tramadol #[id number] with 0 refill on 04/09/23 Massiel Morales Ma documented in this encounter [facility] 07-08-2023 Miscellaneous Notes Noted. The following approved medication requests have been transmitted electronically. Requested Prescriptions Signed Prescriptions Disp Refills levothyroxine (LEVOXYL) 125 mcg tablet 102 tablet 1 Sig: Take one tab once a day Wed-Sat and 2 tabs on Wednesday, Take on empty stomach. For Thyroid. Authorizing Provider: LANE RODRIGUEZ MD Pts daughter called and is notified of providers results and instructions. She voices understanding, she wanted to let provider know she wasn't taking it the med by itself in the morning. She told her mother how important it is and to take it with her last morning pee before she gets up. Patient has been identified by name and date of : Yes, Provider Dr Rodriguez Date 07/08/23 Time 0845. Daughter phones for refill(s): Requested Prescriptions Pending Prescriptions Disp Refills levothyroxine (LEVOXYL) 125 mcg tablet 96 tablet 1 Sig: Take one tab once a day Wed-Sat and 2 tabs on Wednesday, Take on empty stomach. For Thyroid. Signed Prescriptions Disp Refills levothyroxine (LEVOXYL) 125 mcg tablet 96 tablet 1 Sig: Take one tab once a day Wed-Sat and 2 tabs on Wednesday, Take on empty stomach. For Thyroid. Authorizing Provider: LANE RODRIGUEZ Date of last office visit in primary care: 04/22/23 Future visit: 07/23/23 Last 2 Encounter Wt Readings: Date: Wt: 04/22/2023 77.6 kg (171 lb) 01/20/2023 76.2 kg (168 lb) Previous labs/tests for medication: Thyroid: TSH Date Value 07/06/2023 4.550 mIU/L 11/19/2021 0.222 uU/mL Please advise. Thank you. Savannah Lockett, LIVE Let patient know we will discuss her labs at her appt on 07/23/2023. However, her tyroid lab is showing she is not getting enough replacement medication. Advise her to change her current dosing of levothyroxine 125 mcg Mon-Sat and 1.5 on Sun to 125 mcg Mon-Sat and two on Sun. Order placed to get thyroid lab repeated in 2 months. documented in this encounter [facility] 05-27-2023 Note HNO ID: [id number] Author: Sugar Cruz MD Service: ? Author Type: Physician Type: Progress Notes Filed: 06/29/2023 7:51 AM Note Text: Sugar Cruz MD Department of Orthopaedics Orthopaedics [address] [place] [facility] [address] Dept: [phone] Dept May 27, 2023 CHIEF COMPLAINT: Established Patient and Pain of the Left Knee and Established Patient and Pain of the Right Knee HPI Patient here today for bilateral knee pain. She would like to get cortisone injections again today as they do help her pain the most. Last injection was 13 weeks ago. ASSESSMENT: M17.0 Primary osteoarthritis of both knees (primary encounter diagnosis) M25.561, M25.562, G89.29 Chronic pain of both knees PLAN: We reviewed her treatment options again as far as injections Ms. Dayanna Garza was advised as to contrast therapies and/or to take analgesics/anti-inflammatories as needed and all contraindications were reviewed. OBJECTIVE: Ms. Dayanna Garza is a pleasant 82 year old in no apparent distress. Gen:There were no vitals taken for this visit. nl development, non obese, no deformities ENT: Normocephalic, normal hearing, moist mucosa CV: Pulses:DP/PT= 2+ and symmetric, capillary refill < 2 secs, no peripheral edema/varicosities Skin: no rash, bruising or lesions. Good turgor. Psych: cooperative and appropriate, alert and oriented x 3, good mood and affect. Musculoskeletal: Exam remains consistent with lateral arthritis of the right knee with slight valgus and medial arthritis of the left knee with slight varus. Imaging: IMPRESSION: BILATERAL DEGENERATIVE JOINT DISEASE PROGRESSED LATERALLY ON THE RIGHT KIDNEY MEDIALLY ON THE LEFT COMPARED TO PREVIOUS EXAM. PATELLOFEMORAL DEGENERATIVE CHANGES ARE UNCHANGED. Corrugator Supervisor: MIRIAM Transcribe Date/Time: May 30 2023 4:38P Dictated by : LEOBARDO GORDON MD This examination was interpreted and the report reviewed and electronically signed by: LEOBARDO GORDON MD on May 30 2023 4:43PM EST Results-Findings * * *Final Report* * * DATE OF EXAM: May 27 2023 9:36AM [id number] - XR KNEE 4V AP/PA/LAT/MERCH GISELLA / PROCEDURE REASON: multiple diagnoses * * * * Physician Interpretation * * * * HISTORY: 82-YEAR-OLD FEMALE WITH Pain in both knees, unspecified chronicity Pain in both knees, unspecified chronicity . Chronic anterior bilateral knee pain increasing over time without injury. Right worse than left. TECHNIQUE: XR KNEE 4V AP/PA/LAT/MERCH GISELLA Laterality: BILATERAL Number of different views (projections): 4 COMPARISON: 03/10/2021 RESULT: Right knee: Chondrocalcinosis. Osteophytes around knee joint. Marked lateral compartment joint space narrowing. fracture. Osteophytes at the patellofemoral joint. Patellofemoral joint space is maintained. A joint effusion is present. Enthesophyte on patella the insertion of quadriceps tendon. Genu valgus. Left knee: Marked medial compartment joint space narrowing with osteophytes. Chondrocalcinosis. Osteophytes patellofemoral joint. Joint effusion is present. Enthesophyte on patella the insertion of quadriceps and patellar tendon. Arterial calcifications bilaterally. Bones are osteopenic. Supporting Subjective Information Below: Past Surgical History: PAST SURGICAL HISTORY Procedure Laterality Date 2D ECHO (EXEP) 12/21/2019 EF=60%, 1+ TI, HI, AI 2D ECHO (EXEP) 02/17/2021 EF= 60%, mod santos dysf, ARTHRP ACETBLR/PROX FEM PROSTC AGRFT/ALGRFT Right 12/30/2018 Hip replacement, total CC CORONARY STENT 12/21/2019 MARCOS to mLCx COLONOSCOPY 05/01/2016 serrated adenoma/Repeat 04/2019 COLONOSCOPY COLONOSCOPY AND POLYPECTOMY 09/13/2006 hyperplastic polyp- repeat 2016 CORONARY STENT EA VESSEL 01/2010 ESOPHAGOGASTRODUODENOSCOPY TRANSORAL DIAGNOSTIC 07/02/2021 LEXISCAN STRESS TEST 02/17/2021 negative NEUROPLASTY AND/TRANSPOS MEDIAN NRV CARPAL TUNNE Left 02/09/2018 Left carpal tunnel release SLING OPER STRES INCONTINENCE 1998, 2012 (Dr. Yi) XCAPSL CTRC RMVL INSJ IO LENS PROSTH W/O ECP Bilateral 09-28-12 and 11-07-12 Cataract Extraction with PC IOL Medications: Current Outpatient Medications Medication Sig famotidine (PEPCID) 20 mg tablet Take 20 mg by mouth twice daily. traMADol (ULTRAM) 50 mg tablet Take 1 tablet by mouth every 8 hours as needed for pain for up to 90 days. levothyroxine (LEVOXYL) 125 mcg tablet Take one tab once a day Wed-Wed and 1.5 tabs on Wednesday, Take on empty stomach. For Thyroid. metoprolol succinate ER (TOPROL XL) 100 mg Take 1 tablet by mouth once daily. citalopram (CELEXA) 40 mg tablet Take 1 tablet by mouth once daily. losartan (COZAAR) 100 mg tablet Take 1 tablet by mouth twice daily. omeprazole (PRILOSEC) 40 mg capsule Take 1 capsule by mouth twice daily. celecoxib (CELEBREX) 100 mg capsule Take 1 capsule by mouth twice daily. rosuvastatin (CRESTOR) 5 mg tablet Take 1 tab (more content not included)... [facility] 05-27-2023 Note HNO ID: [id number] Author: Yauqelin Burr RT(R) Service: Radiology Author Type: Technologist Type: Progress Notes Filed: 05/27/2023 9:36 AM Note Text: Radiology Service Progress Note PATIENT NAME: Dayanna Garza DATE OF SERVICE: May 27, 2023 TIME: 9:20 AM PATIENT IDENTITY VERIFICATION COMPLETED USING TWO (2) IDENTIFIERS: Name and Date of confirmed by patient verbally. FALL SCREENING: Has the patient had 2 falls in the last year or 1 fall with injury or currently using an Ambulatory Assistive Device (Walker, Cane, Wheelchair, Crutches, etc.)? No PATIENT GENDER DATA: Female. status: : No status: NO. PATIENT RELEVANT IMPLANT DATA REVIEWED: Yes RADIOLOGY DEPARTMENT: General X-ray: Exam(s) Completed: Lower Extremity X-Ray(s): Knee, AP / Lat / Tunne / Merchant Bilateral and Wt. Bearing PERIPHERAL IV DATA: Not applicable SIGNED BY: RT Lillian(R) May 27, 2023 9:20 AM [facility] 05-27-2023 History of Presen t illness Narrative Sugar Cruz MD Department of Orthopaedics Orthopaedics [address] [place] [address] Dept: [phone] Dept May 27, 2023 CHIEF COMPLAINT: Established Patient and Pain of the Left Knee and Established Patient and Pain of the Right Knee HPI Patient here today for bilateral knee pain. She would like to get cortisone injections again today as they do help her pain the most. Last injection was 13 weeks ago. ASSESSMENT: M17.0 Primary osteoarthritis of both knees (primary encounter diagnosis) M25.561, M25.562, G89.29 Chronic pain of both knees PLAN: We reviewed her treatment options again as far as injections Ms. Dayanna Garza was advised as to contrast therapies and/or to take analgesics/anti-inflammatories as needed and all contraindications were reviewed. OBJECTIVE: Ms. Dayanna Garza is a pleasant 82 year old in no apparent distress. Gen:There were no vitals taken for this visit. nl development, non obese, no deformities ENT: Normocephalic, normal hearing, moist mucosa CV: Pulses:DP/PT= 2+ and symmetric, capillary refill < 2 secs, no peripheral edema/varicosities Skin: no rash, bruising or lesions. Good turgor. Psych: cooperative and appropriate, alert and oriented x 3, good mood and affect. Musculoskeletal: Exam remains consistent with lateral arthritis of the right knee with slight valgus and medial arthritis of the left knee with slight varus. Imaging: IMPRESSION: BILATERAL DEGENERATIVE JOINT DISEASE PROGRESSED LATERALLY ON THE RIGHT KIDNEY MEDIALLY ON THE LEFT COMPARED TO PREVIOUS EXAM. PATELLOFEMORAL DEGENERATIVE CHANGES ARE UNCHANGED. Corrugator Supervisor: PSCB Transcribe Date/Time: May 30 2023 4:38P Dictated by : LEOBARDO GORDON MD This examination was interpreted and the report reviewed and electronically signed by: LEOBARDO GORDON MD on May 30 2023 4:43PM EST Results-Findings * * *Final Report* * * DATE OF EXAM: May 27 2023 9:36AM [id number] - XR KNEE 4V AP/PA/LAT/[facility] G[facility]LL[facility] / PROCEDURE REASON: multiple diagnoses * * * * Physician Interpretation * * * * HISTORY: 82-YEAR-OLD FEMALE WITH Pain in both knees, unspecified chronicity Pain in both knees, unspecified chronicity . Chronic anterior bilateral knee pain increasing over time without injury. Right worse than left. TECHNIQUE: XR KNEE 4V AP/PA/LAT/MERCH GISELLA Laterality: BILATERAL Number of different views (projections): 4 COMPARISON: 03/10/2021 RESULT: Right knee: Chondrocalcinosis. Osteophytes around knee joint. Marked lateral compartment joint space narrowing. fracture. Osteophytes at the patellofemoral joint. Patellofemoral joint space is maintained. A joint effusion is present. Enthesophyte on patella the insertion of quadriceps tendon. Genu valgus. Left knee: Marked medial compartment joint space narrowing with osteophytes. Chondrocalcinosis. Osteophytes patellofemoral joint. Joint effusion is present. Enthesophyte on patella the insertion of quadriceps and patellar tendon. Arterial calcifications bilaterally. Bones are osteopenic. Supporting Subjective Information Below: Past Surgical History: PAST SURGICAL HISTORY Procedure Laterality Date 2D ECHO (EXEP) 12/21/2019 EF=60%, 1+ TI, HI, AI 2D ECHO (EXEP) 02/17/2021 EF= 60%, mod santos dysf, ARTHRP ACETBLR/PROX FEM PROSTC AGRFT/ALGRFT Right 12/30/2018 Hip replacement, total CC CORONARY STENT 12/21/2019 MARCOS to mLCx COLONOSCOPY 05/01/2016 serrated adenoma/Repeat 04/2019 COLONOSCOPY COLONOSCOPY & POLYPECTOMY 09/13/2006 hyperplastic polyp- repeat 2016 CORONARY STENT EA VESSEL 01/2010 ESOPHAGOGASTRODUODENOSCOPY TRANSORAL DIAGNOSTIC 07/02/2021 LEXISCAN STRESS TEST 02/17/2021 negative NEUROPLASTY &/TRANSPOS MEDIAN NRV CARPAL TUNNE Left 02/09/2018 Left carpal tunnel release SLING OPER STRES INCONTINENCE 1998, 2012 (Dr. Yi) XCAPSL CTRC RMVL INSJ IO LENS PROSTH W/O ECP Bilateral 09-28-12 and 11-07-12 Cataract Extraction with PC IOL Medications: Current Outpatient Medications Medication Sig famotidine (PEPCID) 20 mg tablet Take 20 mg by mouth twice daily. traMADol (ULTRAM) 50 mg tablet Take 1 tablet by mouth every 8 hours as needed for pain for up to 90 days. levothyroxine (LEVOXYL) 125 mcg tablet Take one tab once a day Wed-Wed and 1.5 tabs on Wednesday, Take on empty stomach. For Thyroid. metoprolol succinate ER (TOPROL XL) 100 mg Take 1 tablet by mouth once daily. citalopram (CELEXA) 40 mg tablet Take 1 tablet by mouth once daily. losartan (COZAAR) 100 mg tablet Take 1 tablet by mouth twice daily. omeprazole (PRILOSEC) 40 mg capsule Take 1 capsule by mouth twice daily. celecoxib (CELEBREX) 100 mg capsule Take 1 capsule by mouth twice daily. rosuvastatin (CRESTOR) 5 mg tablet Take 1 tablet by mouth once daily. fluticasone propionate (FLOVENT DISKUS) 100 mcg/actuation inhaler Inhale 1 Puff as instructed twice daily. albuterol HFA (PROVENTIL HFA, VENTOLIN HFA) 90 mcg/actuation inhaler Inhale 2 Puffs as instructed every 4 hours as needed. aspirin, enteric coated (ASPIRIN, ENTERIC COATED) 81 mg EC tablet Take 81 mg by mouth once daily. ondansetron orally disintegrating (ZOFRAN ODT) 4 mg disintegrating tablet Take 1 tablet by mouth every 6 hours as needed for nausea/vomiting. cyanocobalamin (VITAMIN B-12) 1,000 mcg tab Take 1 tablet by mouth once daily. (Patient not taking: Reported on 01/20/2023) nitroglycerin sublingual (NITROQUICK) 0.4 mg SL tablet Dissolve 1 tablet under the tongue every 5 minutes as needed. COMPOUNDED PRESCRIPTION CPAP chin strap, #: one Dx: G47.33 (Patient not taking: No sig reported) CPAP Dream Wear mask for CPAP. Dx MATT (Patient not taking: No sig reported) No current facility-administered medications for this visit. Allergies: Iodine, Hctz [Thiazides], Hi Inhibitors, Chantix [Varenicline], Lipitor [Atorvastatin Calcium], Mucinex [Guaifenesin], Pravachol [Pravastatin Sodium], and Zanaflex [Tizanidine] ROS: General (negative for fatigue, malaise, weight loss/gain) HEENT (negative for headache, earache, recent vision changes, sinus pain, sore throat) Respiratory (no recent shortness of breath, hemoptysis) CV (negative for chest tightness, palpitations) Musculoskeletal (see HPI) Psych (no depression, anxiety) Sugar Cruz MD documented in this encounter [facility] 05-13-2023 Note HNO ID: [id number] Author: Cris Kirk LPN Service: ? Author Type: ? Type: Progress Notes Filed: 05/13/2023 11:17 AM Note Text: Scan on 05/12/2023 3:46 PM by External Provider, PA-C: Consultation - Emergency Medicine Scan on 05/12/2023 12:27 PM by External Provider, PA-C: X-ray [facility] 05-13-2023 Miscellaneous Notes Daughter notified and verbalized understanding Nanette Hernandez Cma Please let patient know her blood flow tests of her legs is normal. documented in this encounter [facility] 05-13-2023 History of Presen t illness Narrative Scan on 05/12/2023 3:46 PM by External Provider, PA-C: Consultation - Emergency Medicine Scan on 05/12/2023 12:27 PM by External Provider, PA-C: X-ray documented in this encounter [facility] 04-22-2023 Note HNO ID: [id number] Author: Rocio Arthur APRN.FELIPA Service: ? Author Type: Nurse Practitioner Type: Progress Notes Filed: 04/22/2023 5:12 PM Note Text: Chief Complaint Patient presents with: Follow Up: 3 month HPI Dayanna Garza is a 82 year old female who presents here today for Above Complaints.. Patient presents for routine follow up for chronic pain medication management. Patient currently on celebrex and tramadol for management of her osteoarthritis pain. Patient reports her pain is currently well managed on current regimen. Past medical history, appointments, medications, allergies reviewed. Previous Medical History PAST MEDICAL HISTORY Diagnosis Date Acquired hypothyroidism 08/02/2015 Advance directive discussed with patient 01/20/2023 Discussed 01/2023: Up to date Anxiety Anxiety 01/19/2010 -continue home citalopram BPV (benign positional vertigo) 08/02/2015 Chronic pain of both knees 05/24/2020 Seeing Ortho: Dr. Cruz Coronary artery 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 08/02/2015 Not seeing cardiology Degenerative disc disease, lumbar 05/26/2018 Elevated hemoglobin (HCC) 04/17/2020 to be rechecked 05/17/2020 Elevated hemoglobin A1c 12/30/2017 Epidermal inclusion cyst 09/09/2019 anterior chest wall excised 08/2019 Essential hypertension 01/26/2017 GERD without esophagitis 07/08/2022 Graves disease Heart attack (HCC) Michael stent in heart History of COVID-19 07/08/202205/2022 History of non-ST elevation myocardial infarction (NSTEMI) 01/19/201001/2010 Intradermal nevus 12/30/2014 right inferrior medial breast Keratosis, inflamed seborrheic 12/30/2014 right upper back Left carpal tunnel syndrome 01/04/[address] 12/03/2021 Daughter Truong is DPOA Low vitamin B12 level 04/06/2014 Lumbar radicular pain 05/26/2018 Added automatically from request for surgery [id number] Lump or mass in breast 01/20/2023 Patient declined evaluation with imaging or Tx if it were to be cancer. 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 Treated with cryo 10/14/2016 Obesity, Class I, BMI 30-34.9 12/30/2018 Osteoarthritis 11/28/2015 Substance agreement signed 05/2020 for tramadol BID: Knees, Hips (Rt>Lt), substance agreement signed for tramadol Pain in right hip 04/29/2016 Personal history of colonic polyps 09/13/2006 hyperplastic Pulmonary emphysema (HCC) 08/02/2015 Changes of seen on chest x-ray 07/2014 Recurrent major depressive disorder, in partial remission (HCC) 04/14/2016 Severe obstructive sleep apnea AHI 32.5 04/24/2015 DME: [employer] Smoker 01/19/2010 Started at age 31 up to 1 PPD Stage 3a chronic kidney disease (HCC) 01/20/2023 Status post total replacement of right hip 12/30/2018 Trigger index finger of left hand 08/22/2015 Trigger middle finger of left hand 08/04/2015 Trochanteric bursitis of left hip 08/16/2019 Previous Surgical History PAST SURGICAL HISTORY Procedure Laterality Date 2D ECHO (EXEP) 12/21/2019 EF=60%, 1+ TI, HI, AI 2D ECHO (EXEP) 02/17/2021 EF= 60%, mod santos dysf, ARTHRP ACETBLR/PROX FEM PROSTC AGRFT/ALGRFT Right 12/30/2018 Hip replacement, total CC CORONARY STENT 12/21/2019 MARCOS to mLCx COLONOSCOPY 05/01/2016 serrated adenoma/Repeat 04/2019 COLONOSCOPY COLONOSCOPY AND POLYPECTOMY 09/13/2006 hyperplastic polyp- repeat 2015 CORONARY STENT EA VESSEL 01/2010 ESOPHAGOGASTRODUODENOSCOPY TRANSORAL DIAGNOSTIC 07/02/2021 LEXISCAN STRESS TEST 02/17/2021 negative NEUROPLASTY AND/TRANSPOS MEDIAN NRV CARPAL TUNNE Left 02/09/2018 Left carpal tunnel release SLING OPER STRES INCONTINENCE 1998, 2012 (Dr. Yi) XCAPSL CTRC RMVL INSJ IO LENS PROSTH W/O ECP Bilateral 09-28-12 and 11-07-12 Cataract Extraction with PC IOL Family History FAMILY HISTORY Problem Relation Age of Onset Cancer Father prostate Hypertension Father Alzheimer's Disease Brother at 78 Coronary Artery Disease Mother blood clots- at 65 Breast Cancer Daughter Breast Cancer Daughter Blood Clots Daughter while preganant- PE Patient Allergies ALLERGIES Allergen Reactions Iodine Anaphylaxis Hctz [Thiazides] Other: See Comments Dehydrated, nauseated and week Hi Inhibitors Cough Chantix [Vareniclin* Other: See Comments Bad dreams Lipitor [Atorvastat* Other: See Comments Muscle pains Mucinex [Guaifenesi* Mental Status Change dizziness and confusion Pravachol [Pravasta* Other: See Comments Muscle aches Zanaflex [Tizanidin* Other: See Comments Caused pt to feel jittery all over Current Medications Current Outpatient Medications on File Prior to Visit Medication Sig traMAD (more content not included)... [facility] 04-22-2023 History of Presen t illness Narrative Chief Complaint Patient presents with: Follow Up: 3 month HPI Dayanna Garza is a 82 year old female who presents here today for Above Complaints.. Patient presents for routine follow up for chronic pain medication management. Patient currently on celebrex and tramadol for management of her osteoarthritis pain. Patient reports her pain is currently well managed on current regimen. Past medical history, appointments, medications, allergies reviewed. Previous Medical History PAST MEDICAL HISTORY Diagnosis Date Acquired hypothyroidism 08/02/2015 Advance directive discussed with patient 01/20/2023 Discussed 01/2023: Up to date Anxiety Anxiety 01/19/2010 -continue home citalopram BPV (benign positional vertigo) 08/02/2015 Chronic pain of both knees 05/24/2020 Seeing Ortho: Dr. Cruz Coronary artery 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 08/02/2015 Not seeing cardiology Degenerative disc disease, lumbar 05/26/2018 Elevated hemoglobin (HCC) 04/17/2020 to be rechecked 05/17/2020 Elevated hemoglobin A1c 12/30/2017 Epidermal inclusion cyst 09/09/2019 anterior chest wall excised 08/2019 Essential hypertension 01/26/2017 GERD without esophagitis 07/08/2022 Graves disease Heart attack (HCC) Michael stent in heart History of COVID-19 07/08/202205/2022 History of non-ST elevation myocardial infarction (NSTEMI) 01/19/201001/2010 Intradermal nevus 12/30/2014 right inferrior medial breast Keratosis, inflamed seborrheic 12/30/2014 right upper back Left carpal tunnel syndrome 01/04/[address] 12/03/2021 Daughter Truong is DPOA Low vitamin B12 level 04/06/2014 Lumbar radicular pain 05/26/2018 Added automatically from request for surgery [id number] Lump or mass in breast 01/20/2023 Patient declined evaluation with imaging or Tx if it were to be cancer. 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 Treated with cryo 10/14/2016 Obesity, Class I, BMI 30-34.9 12/30/2018 Osteoarthritis 11/28/2015 Substance agreement signed 05/2020 for tramadol BID: Knees, Hips (Rt>Lt), substance agreement signed for tramadol Pain in right hip 04/29/2016 Personal history of colonic polyps 09/13/2006 hyperplastic Pulmonary emphysema (HCC) 08/02/2015 Changes of seen on chest x-ray 07/2014 Recurrent major depressive disorder, in partial remission (HCC) 04/14/2016 Severe obstructive sleep apnea AHI 32.5 04/24/2015 DME: [employer] Smoker 01/19/2010 Started at age 31 up to 1 PPD Stage 3a chronic kidney disease (HCC) 01/20/2023 Status post total replacement of right hip 12/30/2018 Trigger index finger of left hand 08/22/2015 Trigger middle finger of left hand 08/04/2015 Trochanteric bursitis of left hip 08/16/2019 Previous Surgical History PAST SURGICAL HISTORY Procedure Laterality Date 2D ECHO (EXEP) 12/21/2019 EF=60%, 1+ TI, HI, AI 2D ECHO (EXEP) 02/17/2021 EF= 60%, mod santos dysf, ARTHRP ACETBLR/PROX FEM PROSTC AGRFT/ALGRFT Right 12/30/2018 Hip replacement, total CC CORONARY STENT 12/21/2019 MARCOS to mLCx COLONOSCOPY 05/01/2016 serrated adenoma/Repeat 04/2019 COLONOSCOPY COLONOSCOPY & POLYPECTOMY 09/13/2006 hyperplastic polyp- repeat 2015 CORONARY STENT EA VESSEL 01/2010 ESOPHAGOGASTRODUODENOSCOPY TRANSORAL DIAGNOSTIC 07/02/2021 LEXISCAN STRESS TEST 02/17/2021 negative NEUROPLASTY &/TRANSPOS MEDIAN NRV CARPAL TUNNE Left 02/09/2018 Left carpal tunnel release SLING OPER STRES INCONTINENCE 1998, 2012 (Dr. Yi) XCAPSL CTRC RMVL INSJ IO LENS PROSTH W/O ECP Bilateral 09-28-12 and 11-07-12 Cataract Extraction with PC IOL Family History FAMILY HISTORY Problem Relation Age of Onset Cancer Father prostate Hypertension Father Alzheimer's Disease Brother at 78 Coronary Artery Disease Mother blood clots- at 65 Breast Cancer Daughter Breast Cancer Daughter Blood Clots Daughter while preganant- PE Patient Allergies ALLERGIES Allergen Reactions Iodine Anaphylaxis Hctz [Thiazides] Other: See Comments Dehydrated, nauseated and week Hi Inhibitors Cough Chantix [Vareniclin* Other: See Comments Bad dreams Lipitor [Atorvastat* Other: See Comments Muscle pains Mucinex [Guaifenesi* Mental Status Change dizziness and confusion Pravachol [Pravasta* Other: See Comments Muscle aches Zanaflex [Tizanidin* Other: See Comments Caused pt to feel jittery all over Current Medications Current Outpatient Medications on File Prior to Visit Medication Sig traMADol (ULTRAM) 50 mg tablet Take 1 tablet by mouth every 8 hours as needed for pain for up to 90 days. levothyroxine (LEVOXYL) 125 mcg tablet Take one tab once a day and 1.5 tabs on Wednesday, Take on empty stomach. For Thyroid. metoprolol succinate ER (TOPROL XL) 100 mg Take 1 tablet by mouth once daily. citalopram (CELEXA) 40 mg tablet Take 1 tablet by mouth once daily. losartan (COZAAR) 100 mg tablet Take 1 tablet by mouth twice daily. omeprazole (PRILOSEC) 40 mg capsule Take 1 capsule by mouth twice daily. celecoxib (CELEBREX) 100 mg capsule Take 1 capsule by mouth twice daily. rosuvastatin (CRESTOR) 5 mg tablet Take 1 tablet by mouth once daily. ondansetron orally disintegrating (ZOFRAN ODT) 4 mg disintegrating tablet Take 1 tablet by mouth every 6 hours as needed for nausea/vomiting. fluticasone propionate (FLOVENT DISKUS) 100 mcg/actuation inhaler Inhale 1 Puff as instructed twice daily. albuterol HFA (PROVENTIL HFA, VENTOLIN HFA) 90 mcg/actuation inhaler Inhale 2 Puffs as instructed every 4 hours as needed. aspirin, enteric coated (ASPIRIN, ENTERIC COATED) 81 mg EC tablet Take 81 mg by mouth once daily. cyanocobalamin (VITAMIN B-12) 1,000 mcg tab Take 1 tablet by mouth once daily. (Patient not taking: Reported on 01/20/2023) nitroglycerin sublingual (NITROQUICK) 0.4 mg SL tablet Dissolve 1 tablet under the tongue every 5 minutes as needed. COMPOUNDED PRESCRIPTION CPAP chin strap, #: one Dx: G47.33 (Patient not taking: No sig reported) CPAP Dream Wear mask for CPAP. Dx MATT (Patient not taking: No sig reported) No current facility-administered medications on file prior to visit. Social History Social History Tobacco Use Smoking status: Former Packs/day: 1.00 Types: Cigarettes Quit date: 04/08/2022 Years since quittin.0 Smokeless tobacco: Never Tobacco comments: 3 cigarettes per day Vaping Use Vaping Use: current everyday user Substances: Nicotine Devices: Pre-filled or refillable cartridge Substance Use Topics Alcohol use: Yes Comment: occasional glass of wine, once a month Drug use: No Review of Symptoms REVIEW OF SYSTEMS SEE HPI EXAM: BP 152/68 Pulse (!) 57 Resp 16 Wt 77.6 kg (171 lb) SpO2 94% BMI 29.82 kg/m General Appearance: Well appearing, alert, in no acute distress, well-hydrated, well nourished.. Extremities: Bilateral lower extremities reddish purple. Peripheral Pulses: Pulses palpable. Health Maintenance List DTAP,TDAP,TD(1 - Tdap) due on 01/21/2024 LDL CHOLESTEROL due on 01/13/2024 DIABETES SCREEN due on 01/12/2026 BONE DENSITY Completed SPIROMETRY Completed INFLUENZA Completed ADVANCE DIRECTIVE DISCUSSION Completed SHINGRIX VACCINE Completed COVID-19 VACCINE Completed PNEUMOCOCCAL: 65+ Completed ASSESSMENT/PLAN: 1. Discolored skin - ICD9: 709.00, ICD10: L81.9 (primary diagnosis) - PVR ANK PRESS [facility] 2. Arthritis of both knees - ICD9: 716.96, ICD10: M17.0 --Continue celebrex and tramadol as needed 3. Encounter for immunization - ICD9: V03.89, ICD10: Z23 - TDAP VACCINE, AGE 7+ YR (ADACEL, BOOSTRIX) Rocio Arthur APRN.FELIPA documented in this encounter [facility] 04-09-2023 Miscellaneous Notes The following approved medication requests have been transmitted electronically. Requested Prescriptions Signed Prescriptions Disp Refills traMADol (ULTRAM) 50 mg tablet 270 tablet 0 Sig: Take 1 tablet by mouth every 8 hours as needed for pain for up to 90 days. Authorizing Provider: LANE RODRIGUEZ MD PDMP website checked and validated. All prescriptions have been APPROPRIATELY filled. No suspicious activity was identified. 04/09/[address] MD Last refill 01/04/23 Qty: 270 with 0 refills [facility] 01/20/23 NOV 04/22/23 Familia Patel LPN documented in this encounter [facility] 02-22-2023 Note HNO ID: [id number] Author: Sugar Cruz MD Service: ? Author Type: Physician Type: Progress Notes Filed: 03/15/2023 7:26 AM Note Text: Sugar Cruz MD Department of Orthopaedics Orthopaedics [address] [facility] [address] Dept: [phone] Dept February 22, 2023 CHIEF COMPLAINT: Follow Up of the Left Knee, Follow Up of the Right Knee, and 14 weeks 4 days post visit OA bilateral knees (with injections given. Wants injections) HPI Patient states injections helped until about 3 weeks ago. She would like injections today. Taking Celebrex and Tramadol for the pain and helps take the edge off. ASSESSMENT: M17.0 Primary osteoarthritis of both knees (primary encounter diagnosis) PLAN: Repeat injections today. Ms. Dayanna Garza was advised as to contrast therapies and/or to take analgesics/anti-inflammatories as needed and all contraindications were reviewed. OBJECTIVE: Ms. Dayanna Garza is a pleasant 82 year old in no apparent distress. Gen:There were no vitals taken for this visit. nl development, non obese, no deformities ENT: Normocephalic, normal hearing, moist mucosa CV: Pulses:DP/PT= 2+ and symmetric, capillary refill < 2 secs, no peripheral edema/varicosities Skin: no rash, bruising or lesions. Good turgor. Psych: cooperative and appropriate, alert and oriented x 3, good mood and affect. Musculoskeletal: stable Large Joint Arthro/Inj: bilateral knee joints Informed Consent Consent Obtained: Verbal [place] Protocol A moment to CARE was completed. SIGN IN Personnel directly involved with the procedure wore the appropriate PPE. Special Equipment: N/A Patient/Surrogate Stated/Verified: Patient name, Date of , Relevant allergies and Intended procedure TIME OUT Intended patient and procedure match the source document(s). Consent documented and matches the intended procedure. Relevant labs, photos, and/or imaging studies have been reviewed. Correct side/site marked and visible. Medications required for procedure verified. No fire risk assessment and interventions applicable. No implant(s) inserted. 02/22/2023 10:54 AM The procedure site was prepped in the usual sterile fashion. Site: bilateral knee joints Medications (Right): 6 mg betamethasone acetate-betamethasone sodium phosphate 6 mg/mL Medications (Left): 6 mg betamethasone acetate-betamethasone sodium phosphate 6 mg/mL Anesthetics (Right): 4 mL lidocaine (PF) 10 mg/mL (1 %) Anesthetics (Left): 4 mL lidocaine (PF) 10 mg/mL (1 %) Outcome: Tolerated well, no immediate complications Post-injection instructions were reviewed with the patient and the patient voiced understanding of these instructions. SIGN OUT All instruments, equipment, possible retained foreign bodies accounted for. Supporting Subjective Information Below: Past Surgical History: PAST SURGICAL HISTORY Procedure Laterality Date 2D ECHO (EXEP) 12/21/2019 EF=60%, 1+ TI, HI, AI 2D ECHO (EXEP) 02/17/2021 EF= 60%, mod santos dysf, ARTHRP ACETBLR/PROX FEM PROSTC AGRFT/ALGRFT Right 12/30/2018 Hip replacement, total CC CORONARY STENT 12/21/2019 MARCOS to mLCx COLONOSCOPY 05/01/2016 serrated adenoma/Repeat 04/2019 COLONOSCOPY COLONOSCOPY AND POLYPECTOMY 09/13/2006 hyperplastic polyp- repeat 2016 CORONARY STENT EA VESSEL 01/2010 ESOPHAGOGASTRODUODENOSCOPY TRANSORAL DIAGNOSTIC 07/02/2021 LEXISCAN STRESS TEST 02/17/2021 negative NEUROPLASTY AND/TRANSPOS MEDIAN NRV CARPAL TUNNE Left 02/09/2018 Left carpal tunnel release SLING OPER STRES INCONTINENCE 1998, 2012 (Dr. Yi) XCAPSL CTRC RMVL INSJ IO LENS PROSTH W/O ECP Bilateral 09-28-12 and 11-07-12 Cataract Extraction with PC IOL Medications: Current Outpatient Medications Medication Sig levothyroxine (LEVOXYL) 125 mcg tablet Take one tab once a day and 1.5 tabs on Wednesday, Take on empty stomach. For Thyroid. metoprolol succinate ER (TOPROL XL) 100 mg Take 1 tablet by mouth once daily. citalopram (CELEXA) 40 mg tablet Take 1 tablet by mouth once daily. losartan (COZAAR) 100 mg tablet Take 1 tablet by mouth twice daily. omeprazole (PRILOSEC) 40 mg capsule Take 1 capsule by mouth twice daily. celecoxib (CELEBREX) 100 mg capsule Take 1 capsule by mouth twice daily. rosuvastatin (CRESTOR) 5 mg tablet Take 1 tablet by mouth once daily. ondansetron orally disintegrating (ZOFRAN ODT) 4 mg disintegrating tablet Take 1 tablet by mouth every 6 hours as needed for nausea/vomiting. traMADol (ULTRAM) 50 mg tablet Take 1 tablet by mouth every 8 hours as needed for pain for up to 90 days. fluticasone propionate (FLOVENT DISKUS) 100 mcg/actuation inhaler Inhale 1 Puff as instructed twice daily. albuterol HFA (PROVENTIL HFA, VENTOLIN HFA) 90 mcg/actuation inhaler Inhale 2 Puffs as instructed every 4 hours as needed. nitroglycerin sublingual (NITROQUICK) 0.4 mg SL tablet Dissolve 1 tablet under the tongue (more content not included)... [facility] 02-22-2023 History of Presen t illness Narrative Associated Order(s): Large Joint Arthro/Inj: bilateral knee joints Post-Procedure Diagnose(s): Primary osteoarthritis of both knees Sugar Cruz MD Department of Orthopaedics Orthopaedics [address] [facility] [address] Dept: [phone] Dept February 22, 2023 CHIEF COMPLAINT: Follow Up of the Left Knee, Follow Up of the Right Knee, and 14 weeks 4 days post visit OA bilateral knees (with injections given. Wants injections) HPI Patient states injections helped until about 3 weeks ago. She would like injections today. Taking Celebrex and Tramadol for the pain and helps take the edge off. ASSESSMENT: M17.0 Primary osteoarthritis of both knees (primary encounter diagnosis) PLAN: Repeat injections today. Ms. Dayanna Garza was advised as to contrast therapies and/or to take analgesics/anti-inflammatories as needed and all contraindications were reviewed. OBJECTIVE: Ms. Dayanna Garza is a pleasant 82 year old in no apparent distress. Gen:There were no vitals taken for this visit. nl development, non obese, no deformities ENT: Normocephalic, normal hearing, moist mucosa CV: Pulses:DP/PT= 2+ and symmetric, capillary refill < 2 secs, no peripheral edema/varicosities Skin: no rash, bruising or lesions. Good turgor. Psych: cooperative and appropriate, alert and oriented x 3, good mood and affect. Musculoskeletal: stable Large Joint Arthro/Inj: bilateral knee joints Informed Consent Consent Obtained: Verbal [place] Protocol A moment to CARE was completed. SIGN IN Personnel directly involved with the procedure wore the appropriate PPE. Special Equipment: N/A Patient/Surrogate Stated/Verified: Patient name, Date of , Relevant allergies and Intended procedure TIME OUT Intended patient and procedure match the source document(s). Consent documented and matches the intended procedure. Relevant labs, photos, and/or imaging studies have been reviewed. Correct side/site marked and visible. Medications required for procedure verified. No fire risk assessment and interventions applicable. No implant(s) inserted. 02/22/2023 10:54 AM The procedure site was prepped in the usual sterile fashion. Site: bilateral knee joints Medications (Right): 6 mg betamethasone acetate-betamethasone sodium phosphate 6 mg/mL Medications (Left): 6 mg betamethasone acetate-betamethasone sodium phosphate 6 mg/mL Anesthetics (Right): 4 mL lidocaine (PF) 10 mg/mL (1 %) Anesthetics (Left): 4 mL lidocaine (PF) 10 mg/mL (1 %) Outcome: Tolerated well, no immediate complications Post-injection instructions were reviewed with the patient and the patient voiced understanding of these instructions. SIGN OUT All instruments, equipment, possible retained foreign bodies accounted for. Supporting Subjective Information Below: Past Surgical History: PAST SURGICAL HISTORY Procedure Laterality Date 2D ECHO (EXEP) 12/21/2019 EF=60%, 1+ TI, HI, AI 2D ECHO (EXEP) 02/17/2021 EF= 60%, mod santos dysf, ARTHRP ACETBLR/PROX FEM PROSTC AGRFT/ALGRFT Right 12/30/2018 Hip replacement, total CC CORONARY STENT 12/21/2019 MARCOS to mLCx COLONOSCOPY 05/01/2016 serrated adenoma/Repeat 04/2019 COLONOSCOPY COLONOSCOPY & POLYPECTOMY 09/13/2006 hyperplastic polyp- repeat 2016 CORONARY STENT EA VESSEL 01/2010 ESOPHAGOGASTRODUODENOSCOPY TRANSORAL DIAGNOSTIC 07/02/2021 LEXISCAN STRESS TEST 02/17/2021 negative NEUROPLASTY &/TRANSPOS MEDIAN NRV CARPAL TUNNE Left 02/09/2018 Left carpal tunnel release SLING OPER STRES INCONTINENCE 1998, 2012 (Dr. Yi) XCAPSL CTRC RMVL INSJ IO LENS PROSTH W/O ECP Bilateral 09-28-12 and 11-07-12 Cataract Extraction with PC IOL Medications: Current Outpatient Medications Medication Sig levothyroxine (LEVOXYL) 125 mcg tablet Take one tab once a day Wed-Wed and 1.5 tabs on Wednesday, Take on empty stomach. For Thyroid. metoprolol succinate ER (TOPROL XL) 100 mg Take 1 tablet by mouth once daily. citalopram (CELEXA) 40 mg tablet Take 1 tablet by mouth once daily. losartan (COZAAR) 100 mg tablet Take 1 tablet by mouth twice daily. omeprazole (PRILOSEC) 40 mg capsule Take 1 capsule by mouth twice daily. celecoxib (CELEBREX) 100 mg capsule Take 1 capsule by mouth twice daily. rosuvastatin (CRESTOR) 5 mg tablet Take 1 tablet by mouth once daily. ondansetron orally disintegrating (ZOFRAN ODT) 4 mg disintegrating tablet Take 1 tablet by mouth every 6 hours as needed for nausea/vomiting. traMADol (ULTRAM) 50 mg tablet Take 1 tablet by mouth every 8 hours as needed for pain for up to 90 days. fluticasone propionate (FLOVENT DISKUS) 100 mcg/actuation inhaler Inhale 1 Puff as instructed twice daily. albuterol HFA (PROVENTIL HFA, VENTOLIN HFA) 90 mcg/actuation inhaler Inhale 2 Puffs as instructed every 4 hours as needed. nitroglycerin sublingual (NITROQUICK) 0.4 mg SL tablet Dissolve 1 tablet under the tongue every 5 minutes as needed. aspirin, enteric coated (ASPIRIN, ENTERIC COATED) 81 mg EC tablet Take 81 mg by mouth once daily. cyanocobalamin (VITAMIN B-12) 1,000 mcg tab Take 1 tablet by mouth once daily. (Patient not taking: Reported on 01/20/2023) COMPOUNDED PRESCRIPTION CPAP chin strap, #: one Dx: G47.33 (Patient not taking: No sig reported) CPAP Dream Wear mask for CPAP. Dx MATT (Patient not taking: No sig reported) No current facility-administered medications for this visit. Allergies: Iodine, Hctz [Thiazides], Hi Inhibitors, Chantix [Varenicline], Lipitor [Atorvastatin Calcium], Mucinex [Guaifenesin], Pravachol [Pravastatin Sodium], and Zanaflex [Tizanidine] ROS: General (negative for fatigue, malaise, weight loss/gain) HEENT (negative for headache, earache, recent vision changes, sinus pain, sore throat) Respiratory (no recent shortness of breath, hemoptysis) CV (negative for chest tightness, palpitations) Musculoskeletal (see HPI) Psych (no depression, anxiety) Sugar Cruz MD documented in this encounter [facility] 01-25-2023 Miscellaneous Notes Patient has been identified by name and date of : Yes Requested Prescriptions Pending Prescriptions Disp Refills levothyroxine (LEVOXYL) 125 mcg tablet 96 tablet 1 Sig: Take one tab once a day Wed-Wed and 1.5 tabs on Wednesday, Take on empty stomach. For Thyroid. RX INSTRUCTIONS: Patient aware RX will be sent to pharmacy. No need to notify patient. Katherin Schmidt MA [facility]; 01/2023 Nov: 04/2023 Last refill: 08/2022 documented in this encounter [facility] 01-20-2023 Note HNO ID: [id number] Author: Lane Rodriguez MD Service: ? Author Type: Physician Type: Progress Notes Filed: 01/21/2023 7:32 PM Note Text: Medicare Yearly Visit Medical B eligibilty date Not able to find Date of last exam 12/03/2021 PAST MEDICAL HISTORY PAST MEDICAL HISTORY Diagnosis Date Anxiety CAD (coronary artery disease) Chronic obstructive pulmonary disease (COPD) (HCC) Depression Essential hypertension 01/26/2017 Graves disease Heart attack (HCC) Michael stent in heart Hyperlipidemia Hypothyroid Obstructive sleep apnea Osteoarthritis 11/28/2015 Knees Personal history of colonic polyps 09/13/2006 hyperplastic Tobacco abuse Trigger middle finger of left hand 08/04/2015 PAST SURGICAL HISTORY PAST SURGICAL HISTORY 05/01/16: COLONOSCOPY Comment: serrated adenoma/Repeat 04/201909/13/06: COLONOSCOPY AND POLYPECTOMY Comment: hyperplastic polyp- repeat 01/2010: CORONARY STENT EA VESSEL 09-28-12 and 11-07-12: REMV CATARACT EXTRACAP,INSERT LENS Bilateral Comment: Cataract Extraction with PC IOL No date: SLING OPER STRES INCONTINENCE Comment: 1998, 2012 (Dr. Yi) Chantix [Varenicline]; Iodine; Lipitor [Atorvastatin Calcium]; Mucinex [Guaifenesin]; Pravachol [Pravastatin Sodium]; Zanaflex [Tizanidine] Medications reviewed: Yes FAMILY HISTORY FAMILY HISTORY Cancer Father Comment: prostate Alzheimer's Disease Brother Comment: at 78 Coronary Artery Disease Mother Hypertension Father Breast Cancer Daughter Breast Cancer Daughter SOCIAL HISTORY: SOCIAL HISTORY Social History Marital status: Spouse name: Years of education: Number of children: 4 Occupational History Occupation Employer Comment retired Social History Main Topics Smoking status: Current Every Day Smoker Packs/day: 1.00 Years: 0.00 Types: Cigarettes Smokeless status: Never Used Comment: Quit smoking February 05, 2010 - resumed smoking Alcohol use: Yes Comment: occasional glass of wine, once a month Drug use: No Dayanna gets sporadic irregular exercise basically just walking her steps. She watches her diet for sodium, low fat and low cholesterol most of the time. List of current specialists seen: Dr. Cruz (ortho) Optho Dr. Rasmussen (Cardio) stopped seeing Dr. Gordon (pulm) Stopped seeing. End of Live Planning discussed including patients advanced directive wishes: Yes I am willing to follow Dayanna's advanced directives. Depression screen Depression Screening 06/24/2018 02/02/2019 08/16/2019 01/20/2023 PHQ-2 Score 0 0 0 1 PHQ-9 Score 4 - - - Depression screening tool completed and reviewed. Based on score and interview, patient is already diagnosed with depression. Screening tool discussed with patient, and I recommended continuing current plan of care. Functional Ability/Safety Screen 1. Was the patient's timed Up and Go test unsteady or longer than 30 seconds? no 2. Does the patient need help with the phone, transportation, shopping,preparing meals, housework, laundry, medications or managing money? Does not drive. Daughter does the laundry and manages her finances. 3. Does your home have rugs in the hallway, lack of grab bars in the bathroom, lack of handrails on the stairs or have poor lighting? no Hearing Evaluation: normal PHYSICAL EXAM BP 158/82 (BP Site: Right Arm, BP Position: Sitting, BP Cuff Size: Regular Adult) Pulse (!) 58 Ht 161.3 cm (5' 3.5 ) Wt 76.2 kg (168 lb) SpO2 98% BMI 29.29 kg/m? Alert and oriented X 3: YES Body mass index is 29.29 kg/(m2). See below ASSESSMENT/PLAN: 82 year old female The following prevention plan was discussed during the office visit and provided to the patient: See below Lane Rodriguez MD Chief Complaint Patient presents with: Medicare Wellness Exam HPI Dayanna Garza is a 82 year old female who presents here today for Chronic Medical Conditions. and Medicare Annual Visit. Patient with Hx of hypothyroidism, CAD, COPD, HTN, elevated A1c, hyperlipidemia, emphysema, depression, anxiety, obesity, MATT, smoker, low B12, Arthritis with chronic pain especially the knees as well as those reviewed and addressed below and in ROS. Patient has decided to no longer see cardio or pulmonary. Takes her inhaler as needed instead of daily. tramadol continues to be affective for controlling her knee pain when she needs it. No issues or side affects Past medical history, appointments, medications, allergies reviewed. Previous Medical History PAST MEDICAL HISTORY Diagnosis Date Acquired hypothyroidism 08/02/2015 Anxiety Anxiety 01/19/2010 -continue home citalopram BPV (benign positional vertigo) 08/02/2015 Chronic pain of both knees 05/24/2020 Seeing Ortho: Dr. Cruz Coronary artery 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 08/02/2015 Not seeing cardiology Degenerative disc disease, lumbar 05/26/2018 Elevated hemoglobin (HCC) 04/17/2020 to be reche (more content not included)... [facility] 01-20-[address] Rodriguez MD - 01/20/2023 10:22 AM EDT Patient should try to a Tdap for a tetanus booster at the health Dept. The Flovent works better to reduce breathing issues if taken daily. Please take the B12 every day. Please get labs and urine test done on or after 07/09/2023 prior to your next visit. documented in this encounter [facility] 01-20-2023 History of Presen t illness Narrative Medicare Yearly Visit Medical B eligibilty date Not able to find Date of last exam 12/03/2021 PAST MEDICAL HISTORY PAST MEDICAL HISTORY Diagnosis Date Anxiety CAD (coronary artery disease) Chronic obstructive pulmonary disease (COPD) (HCC) Depression Essential hypertension 01/26/2017 Graves disease Heart attack (HCC) Michael stent in heart Hyperlipidemia Hypothyroid Obstructive sleep apnea Osteoarthritis 11/28/2015 Knees Personal history of colonic polyps 09/13/2006 hyperplastic Tobacco abuse Trigger middle finger of left hand 08/04/2015 PAST SURGICAL HISTORY PAST SURGICAL HISTORY 05/01/16: COLONOSCOPY Comment: serrated adenoma/Repeat 04/201909/13/06: COLONOSCOPY & POLYPECTOMY Comment: hyperplastic polyp- repeat 01/2010: CORONARY STENT EA VESSEL 09-28-12 and 11-07-12: REMV CATARACT EXTRACAP,INSERT LENS Bilateral Comment: Cataract Extraction with PC IOL No date: SLING OPER STRES INCONTINENCE Comment: 1998, 2012 (Dr. Yi) Chantix [Varenicline]; Iodine; Lipitor [Atorvastatin Calcium]; Mucinex [Guaifenesin]; Pravachol [Pravastatin Sodium]; Zanaflex [Tizanidine] Medications reviewed: Yes FAMILY HISTORY FAMILY HISTORY Cancer Father Comment: prostate Alzheimer's Disease Brother Comment: at 78 Coronary Artery Disease Mother Hypertension Father Breast Cancer Daughter Breast Cancer Daughter SOCIAL HISTORY: SOCIAL HISTORY Social History Marital status: Spouse name: Years of education: Number of children: 4 Occupational History Occupation Employer Comment retired Social History Main Topics Smoking status: Current Every Day Smoker Packs/day: 1.00 Years: 0.00 Types: Cigarettes Smokeless status: Never Used Comment: Quit smoking February 05, 2010 - resumed smoking Alcohol use: Yes Comment: occasional glass of wine, once a month Drug use: No Dayanna gets sporadic irregular exercise basically just walking her steps. She watches her diet for sodium, low fat and low cholesterol most of the time. List of current specialists seen: Dr. Cruz (ortho) Optho Dr. Rasmussen (Cardio) stopped seeing Dr. Gordon (pulm) Stopped seeing. End of Live Planning discussed including patients advanced directive wishes: Yes I am willing to follow Dayanna's advanced directives. Depression screen Depression Screening 06/24/2018 02/02/2019 08/16/2019 01/20/2023 PHQ-2 Score 0 0 0 1 PHQ-9 Score 4 - - - Depression screening tool completed and reviewed. Based on score and interview, patient is already diagnosed with depression. Screening tool discussed with patient, and I recommended continuing current plan of care. Functional Ability/Safety Screen 1. Was the patient's timed Up and Go test unsteady or longer than 30 seconds? no 2. Does the patient need help with the phone, transportation, shopping,preparing meals, housework, laundry, medications or managing money? Does not drive. Daughter does the laundry and manages her finances. 3. Does your home have rugs in the hallway, lack of grab bars in the bathroom, lack of handrails on the stairs or have poor lighting? no Hearing Evaluation: normal PHYSICAL EXAM BP 158/82 (BP Site: Right Arm, BP Position: Sitting, BP Cuff Size: Regular Adult) Pulse (!) 58 Ht 161.3 cm (5' 3.5 ) Wt 76.2 kg (168 lb) SpO2 98% BMI 29.29 kg/m Alert and oriented X 3: YES Body mass index is 29.29 kg/(m^2). See below ASSESSMENT/PLAN: 82 year old female The following prevention plan was discussed during the office visit and provided to the patient: See below Lane Rodriguez MD Chief Complaint Patient presents with: Medicare Wellness Exam HPI Dayanna Garza is a 82 year old female who presents here today for Chronic Medical Conditions. and Medicare Annual Visit. Patient with Hx of hypothyroidism, CAD, COPD, HTN, elevated A1c, hyperlipidemia, emphysema, depression, anxiety, obesity, MATT, smoker, low B12, Arthritis with chronic pain especially the knees as well as those reviewed and addressed below and in ROS. Patient has decided to no longer see cardio or pulmonary. Takes her inhaler as needed instead of daily. tramadol continues to be affective for controlling her knee pain when she needs it. No issues or side affects Past medical history, appointments, medications, allergies reviewed. Previous Medical History PAST MEDICAL HISTORY Diagnosis Date Acquired hypothyroidism 08/02/2015 Anxiety Anxiety 01/19/2010 -continue home citalopram BPV (benign positional vertigo) 08/02/2015 Chronic pain of both knees 05/24/2020 Seeing Ortho: Dr. Cruz Coronary artery 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 08/02/2015 Not seeing cardiology Degenerative disc disease, lumbar 05/26/2018 Elevated hemoglobin (HCC) 04/17/2020 to be rechecked 05/17/2020 Elevated hemoglobin A1c 12/30/2017 Epidermal inclusion cyst 09/09/2019 anterior chest wall excised 08/2019 Essential hypertension 01/26/2017 GERD without esophagitis 07/08/2022 Graves disease Heart attack (HCC) Michael stent in heart History of COVID-19 07/08/202205/2022 History of non-ST elevation myocardial infarction (NSTEMI) 01/19/201001/2010 Intradermal nevus 12/30/2014 right inferrior medial breast Keratosis, inflamed seborrheic 12/30/2014 right upper back Left carpal tunnel syndrome 01/04/[address] 12/03/2021 Daughter Truong is DPOA Low vitamin B12 level 04/06/2014 Lumbar radicular pain 05/26/2018 Added automatically from request for surgery [id number] Macular degeneration Left eye Medicare annual wellness visit, subsequent 06/21/2017 Medicare wellness: NA last done: 08/16/2019 Mixed hyperlipidemia 01/19/2010 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 Treated with cryo 10/14/2016 Obesity, Class I, BMI 30-34.9 12/30/2018 Osteoarthritis 11/28/2015 Substance agreement signed 05/2020 for tramadol BID: Knees, Hips (Rt>Lt), substance agreement signed for tramadol Pain in right hip 04/29/2016 Personal history of colonic polyps 09/13/2006 hyperplastic Pulmonary emphysema (HCC) 08/02/2015 Changes of seen on chest x-ray 07/2014 Recurrent major depressive disorder, in partial remission ([facility]) 04/14/2016 Severe obstructive sleep apnea AHI 32.5 04/24/2015 DME: [employer] Smoker 01/19/2010 Started at age 31 up to 1 PPD Status post total replacement of right hip 12/30/2018 Trigger index finger of left hand 08/22/2015 Trigger middle finger of left hand 08/04/2015 Trochanteric bursitis of left hip 08/16/2019 Previous Surgical History PAST SURGICAL HISTORY Procedure Laterality Date 2D ECHO (EXEP) 12/21/2019 EF=60%, 1+ TI, HI, AI 2D ECHO (EXEP) 02/17/2021 EF= 60%, mod santos dysf, ARTHRP ACETBLR/PROX FEM PROSTC AGRFT/ALGRFT Right 12/30/2018 Hip replacement, total CC CORONARY STENT 12/21/2019 MARCOS to mLCx COLONOSCOPY 05/01/2016 serrated adenoma/Repeat 04/2019 COLONOSCOPY COLONOSCOPY & POLYPECTOMY 09/13/2006 hyperplastic polyp- repeat 2015 CORONARY STENT EA VESSEL 01/2010 ESOPHAGOGASTRODUODENOSCOPY TRANSORAL DIAGNOSTIC 07/02/2021 LEXISCAN STRESS TEST 02/17/2021 negative NEUROPLASTY &/TRANSPOS MEDIAN NRV CARPAL TUNNE Left 02/09/2018 Left carpal tunnel release SLING OPER STRES INCONTINENCE 1998, 2012 (Dr. Yi) XCAPSL CTRC RMVL INSJ IO LENS PROSTH W/O ECP Bilateral 09-28-12 and 11-07-12 Cataract Extraction with PC IOL Family History FAMILY HISTORY Problem Relation Age of Onset Cancer Father prostate Hypertension Father Alzheimer's Disease Brother at 78 Coronary Artery Disease Mother blood clots- at 65 Breast Cancer Daughter Breast Cancer Daughter Blood Clots Daughter while preganant- PE Patient Allergies ALLERGIES Allergen Reactions Iodine Anaphylaxis Hctz [Thiazides] Other: See Comments Dehydrated, nauseated and week Hi Inhibitors Cough Chantix [Vareniclin* Other: See Comments Bad dreams Lipitor [Atorvastat* Other: See Comments Muscle pains Mucinex [Guaifenesi* Mental Status Change dizziness and confusion Pravachol [Pravasta* Other: See Comments Muscle aches Zanaflex [Tizanidin* Other: See Comments Caused pt to feel jittery all over Current Medications Current Outpatient Medications on File Prior to Visit Medication Sig traMADol (ULTRAM) 50 mg tablet Take 1 tablet by mouth every 8 hours as needed for pain for up to 90 days. citalopram (CELEXA) 40 mg tablet Take 1 tablet by mouth once daily. metoprolol succinate ER (TOPROL XL) 100 mg Take 1 tablet by mouth once daily. losartan (COZAAR) 100 mg tablet Take 1 tablet by mouth twice daily. levothyroxine (LEVOXYL) 125 mcg tablet Take one tab once a day and 1.5 tabs on Wednesday, Take on empty stomach. For Thyroid. ondansetron orally disintegrating (ZOFRAN ODT) 4 mg disintegrating tablet Take 1 tablet by mouth every 6 hours as needed for nausea/vomiting. omeprazole (PRILOSEC) 40 mg capsule Take 1 capsule by mouth twice daily. celecoxib (CELEBREX) 100 mg capsule Take 1 capsule by mouth twice daily. rosuvastatin (CRESTOR) 5 mg tablet Take 1 tablet by mouth once daily. fluticasone propionate (FLOVENT DISKUS) 100 mcg/actuation inhaler Inhale 1 Puff as instructed twice daily. sucralfate (CARAFATE) 1 gram tablet Take 1 tablet by mouth four times daily. (Patient not taking: No sig reported) albuterol HFA (PROVENTIL HFA, VENTOLIN HFA) 90 mcg/actuation inhaler Inhale 2 Puffs as instructed every 4 hours as needed. cyanocobalamin (VITAMIN B-12) 1,000 mcg tab Take 1 tablet by mouth once daily. nitroglycerin sublingual (NITROQUICK) 0.4 mg SL tablet Dissolve 1 tablet under the tongue every 5 minutes as needed. aspirin, enteric coated (ASPIRIN, ENTERIC COATED) 81 mg EC tablet Take 81 mg by mouth once daily. COMPOUNDED PRESCRIPTION CPAP chin strap, #: one Dx: G47.33 (Patient not taking: No sig reported) CPAP Dream Wear mask for CPAP. Dx MATT (Patient not taking: No sig reported) No current facility-administered medications on file prior to visit. Social History Social History Tobacco Use Smoking status: Former Packs/day: 1.00 Types: Cigarettes Quit date: 04/08/2022 Years since quittin.7 Smokeless tobacco: Never Tobacco comments: 3 cigarettes per day Vaping Use Vaping Use: current everyday user Substances: Nicotine Devices: Pre-filled or refillable cartridge Substance Use Topics Alcohol use: Yes Comment: occasional glass of wine, once a month Drug use: No Review of Symptoms REVIEW OF SYSTEMS GENERAL: No weight loss, malaise or fevers HEENT: Negative for frequent or significant headaches, No changes in hearing or vision, no nose bleeds or other nasal problems NECK: Negative for lumps, goiter, pain and significant neck swelling RESPIRATORY: Negative for cough, hemoptysis, wheezing, COPD, dyspnea or shortness of breath CARDIOVASCULAR: Negative for chest pain, leg swelling, hypertension, CHF or palpitations GI: No nausea, vomiting, or diarrhea, No heartburn or reflux symptoms, and not aware of any blood : No history of dysuria, blood MUSCULOSKELETAL: has her chronic arthrotic issues. SKIN: Negative for lesions, rash, and itching PSYCH: Negative for sleep disturbance, mood disorder and recent psychosocial stressors HEMATOLOGY/LYMPHOLOGY: Negative for prolonged bleeding, bruising easily or swollen nodes ENDOCRINE: Negative for cold intolerance, polyuria, polydipsia and goiter. Has had some heat intolerance. NEURO: No history of headaches, syncope, paralysis, seizures or tremors EXAM: BP 158/82 (BP Site: Right Arm, BP Position: Sitting, BP Cuff Size: Regular Adult) Pulse (!) 58 Ht 161.3 cm (5' 3.5 ) Wt 76.2 kg (168 lb) SpO2 98% BMI 29.29 kg/m BP 148/82 Pulse (!) 58 Ht 161.3 cm (5' 3.5 ) Wt 76.2 kg (168 lb) SpO2 98% BMI 29.29 kg/m Last 4 Encounter Wt Readings: Date: Wt: 01/20/2023 76.2 kg (168 lb) 10/12/2022 75.8 kg (167 lb) 09/30/2022 76.7 kg (169 lb) 07/08/2022 77.1 kg (170 lb) General Appearance: Well appearing, alert, in no acute distress, well-hydrated, well nourished.. Skin: Skin color, texture, turgor normal, no suspicious rashes or lesions. Head: Normocephalic, no masses, lesions, tenderness or abnormalities. Eyes: Anicteric sclera. Pupils are equally round and reactive to light. Extraocular movements are intact. . Ears: External ears normal, canals clear. Neck: Supple, no adenopathy; thyroid symmetric, normal size, no bruits. Lungs: Lungs clear to auscultation. No wheezing, rhonchi, rales.. Heart: RRR without murmur, gallop, or rubs. No ectopy. Abdomen: Normal abdominal exam, Abdomen soft, non-tender. Bowel sounds normal. No masses, organomegaly. Extremities: No deformities, edema, skin discoloration, Good capillary refill. . Musculoskeletal: Muscular strength intact, No joint swelling, deformity, or tenderness. Peripheral Pulses: Normal. Neurologic: Gait normal. Reflexes normal and symmetric. Sensation to light touch and crainal nerves 2-12 intact.. Health Maintenance List DTAP,TDAP,TD(1 - Tdap) Never done SHINGRIX VACCINE(1 of 2) Never done ADVANCE DIRECTIVE DISCUSSION due on 11/08/2022 LDL CHOLESTEROL due on 01/13/2024 DIABETES SCREEN due on 01/12/2026 BONE DENSITY Completed SPIROMETRY Completed INFLUENZA Completed COVID-19 VACCINE Completed PNEUMOCOCCAL: 65+ Completed Data reviewed Component Latest Ref Rng & Units 11/19/2021 06/11/2022 01/12/2023 WBC 3.70 - 11.00 k/uL 8.49 9.70 RBC 3.90 - 5.20 m/uL 4.87 4.84 Hemoglobin 11.5 - 15.5 g/dL 14.3 14.0 Hematocrit 36.0 - 46.0 % 43.1 43.0 MCV 80.0 - 100.0 fL 88.5 88.8 MCH 26.0 - 34.0 pg 29.4 28.9 MCHC 30.5 - 36.0 g/dL 33.2 32.6 RDW-CV 11.5 - 15.0 % 14.1 14.2 Platelet Count 150 - 400 k/uL 322 251 MPV 9.0 - 12.7 fL 10.8 10.3 Neut% % 68.3 76.0 Abs Neut (ANC) 1.45 - 7.50 k/uL 5.78 7.37 Lymph% % 20.3 13.5 Abs Lymph 1.00 - 4.00 k/uL 1.72 1.31 Elliott% % 8.0 6.7 Abs Elliott <0.87 k/uL 0.68 0.65 Eosin% % 2.8 3.1 Abs Eosin <0.46 k/uL 0.24 0.30 Baso% % 0.6 0.5 Abs Baso <0.11 k/uL 0.05 0.05 Immature Gran % % 0.2 IMMATURE GRANS (ABS) <0.10 k/uL <0.03 NRBC /100 WBC 0.0 Absolute nRBC <0.01 k/uL <0.01 <0.01 DTYPE Auto Nucleated Reds 0 /100 WBC 0.0 Diff Type Auto Diff Color Yellow Yellow Clarity Clear Clear Glucose, Urine Trace, Negative Negative Bilirubin, Urine Negative Negative Ketones, Urine Trace, Negative Negative Specific [place], Ur 1.005 - 1.030 1.030 Hemoglobin/Blood,Ur Negative, Trace Negative pH, Urine 5.0 - 8.0 6.0 Protein, Urine Trace, Negative 1+ (A) Urobilinogen Negative Negative Nitrites Negative Negative Leukest Negative, 25 Robert/uL 75 Robert/uL (A) WBC, Urine 0-5 /HPF 6-10 /HPF (A) RBC, Urine 0-3 /HPF 0-3 /HPF Bacteria None Seen /HPF Rare (A) Epithelial Cells /HPF Few Non-Squamous Epithelial Cells None Seen /HPF Few (A) Hyaline Cast 0 /LPF 1-3 /LPF (A) Protein, Total 6.3 - 8.0 g/dL 6.7 6.6 Albumin 3.9 - 4.9 g/dL 4.1 4.0 Calcium 8.5 - 10.2 mg/dL 9.3 8.3 (L) 9.1 Bilirubin, Total 0.2 - 1.3 mg/dL 0.4 0.5 Alkaline Phosphatase 34 - 123 U/L 62 50 AST 13 - 35 U/L 13 14 Glucose 74 - 99 mg/dL 98 88 88 BUN 7 - 21 mg/dL 28 (H) 17 27 (H) Creatinine 0.58 - 0.96 mg/dL 1.06 (H) 1.03 (H) 1.02 (H) Sodium 136 - 144 mmol/L 138 138 139 Potassium 3.7 - 5.1 mmol/L 3.8 4.3 4.3 Chloride 97 - 105 mmol/L 99 102 101 CO2 22 - 30 mmol/L 25 24 27 Anion Gap 9 - 18 mmol/L 14 12 11 ALT 7 - 38 U/L 8 6 (L) eGFR- >60 eGFR-All Other Races . 50 eGFR >=60 mL/min/1.73m 55 (L) 55 (L) Cholesterol, Total <200 mg/dL 167 Triglyceride <150 mg/dL 104 HDL Cholesterol >39 mg/dL 56 Non HDL Cholesterol <130 mg/dL 111 Fasting Time hrs 12 VLDL Cholesterol <30 mg/dL 21 TC:HDL Ratio <5.10 2.98 LDL Cholesterol <100 mg/dL 90 LDL:HDL Ratio <2.54 1.61 Total Cholesterol, Nonfasting <200 mg/dL 163 Triglycerides, Nonfasting <150 mg/dL 84 HDL Cholesterol, Nonfasting >39 mg/dL 48 LDL Cholesterol, Nonfasting <100 mg/dL 98 Non HDL Cholesterol, Nonfasting <130 mg/dL 115 VLDL Cholesterol, Nonfasting <30 mg/dL 17 Total Chol/HDL Ratio, Nonfasting <5.10 mg/dL 3.40 LDL/HDL Ratio, Nonfasting <2.54 mg/dL 2.04 Hemoglobin A1C 4.3 - 5.6 % 5.9 (H) 6.0 (H) 5.7 (H) Estimated Average Glucose mg/dL 123 126 117 Vitamin B12 232 - 1,245 pg/mL 597 284 TSH 0.270 - 4.200 mIU/L 0.222 (L) 3.610 0.348 Magnesium 1.7 - 2.3 mg/dL 1.7 1.8 A/P ASSESSMENT/PLAN: 1. Medicare annual wellness visit, subsequent - ICD9: V70.0, ICD10: Z00.00 (primary diagnosis) - Counseled on healthy diet and regular exercise - Calcium intake with supplements or by diet of 1000 mg/day for under 50, 3847-7434 mg/day for 50+ - Depression screening tool completed and reviewed with patient. Based on score and interview, patient is already diagnosed with depression and recommended continuing current plan of care. - Follow up for annual exam in one year 2. Essential hypertension - ICD9: 401.9, ICD10: I10 - fair control - Continue current medication(s) - Recommended regular aerobic exercise. - Recommend home blood pressure monitoring, to bring results in on next visit - Goal of BP <130/80 3. Mixed hyperlipidemia - ICD9: 272.2, ICD10: E78.2 - good control - Encouraged following a low fat, low cholesterol diet. - Discussed the benefits of regular aerobic exercise and weight loss. - Encouraged following a low carbohydrate, healthy oil intake diet. - Continue current therapy. 4. Acquired hypothyroidism - ICD9: 244.9, ICD10: E03.9 - Instructed patient on importance of taking on an empty stomach either first thing in the morning or at bedtime. - continue current dose of Synthroid 5. Elevated hemoglobin (HCC) - ICD9: 282.7, ICD10: D58.2 - recent lab was normal. 6. Elevated hemoglobin A1c - ICD9: 790.29, ICD10: R73.09 - improved with life style changes. 7. Coronary artery 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 - ICD9: 414.00, 414.3, ICD10: I25.10, I25.83 - stable no changes. 8. Pulmonary emphysema, unspecified emphysema type (HCC) - ICD9: 492.8, ICD10: J43.9 - encouraged her to take her Flovent BID daily. Not as needed. 9. Stage 3a chronic kidney disease (HCC) - ICD9: 585.3, ICD10: N18.31 - cont current plan. 10. GERD without esophagitis - ICD9: 530.81, ICD10: K21.9 - Continue treatment with Prilosec 40 mg QD 11. Anxiety - ICD9: 300.00, ICD10: F41.9 - stable with current Tx. 12. Recurrent major depressive disorder, in partial remission (HCC) - ICD9: 296.35, ICD10: F33.41 - as per #11 13. Low vitamin B12 level - ICD9: 266.2, ICD10: E53.8 - patient encouraged to take her B12 daily. 14. Severe obstructive sleep apnea AHI 32.5 - ICD9: 327.23, ICD10: G47.33 - has stopped wearing CPAP and aware of CV risks. 15. Obesity, Class I, BMI 30-34.9 - ICD9: 278.00, ICD10: E66.9 Stable - Behavioral intervention 16. Osteoarthritis, unspecified osteoarthritis type, unspecified site - ICD9: 715.90, ICD10: M19.90 - cont celebrex daily - cont Tramadol prn. Substance agreement re-signed. Check Urine Tox and pain panel 17. Smoker - ICD9: 305.1, ICD10: F17.200 - Cessation encouraged. - Counseling was given focusing on the harmful effects of this addiction especially given the patient's medical condition(s) which will be worsened because of the chemicals in tobacco. 18. Macular degeneration of both eyes, unspecified type - ICD9: 362.50, ICD10: H35.30 - seeing optho 19. Advance directive discussed with patient - ICD9: V65.49, ICD10: Z71.89 - up to date 20. Medication management - ICD9: V58.69, ICD10: Z79.899 - check Urine tox and pain panel 21. Mass of breast, unspecified laterality - ICD9: 611.72, ICD10: N63.0 - patient does not want imaging or w/u and would not undergo Tx if cancer. F/u 3 months pain medication F/u 6 months routine check BMP, A1c, TSH and B12 prior I spent a total of 40 minutes on the date of the service which included preparing to see the patient, [id number] patient care, completing clinical documentation, performing a medically appropriate examination, counseling and educating the patient/family/caregiver and ordering medications, tests, or procedures. Lane Rodriguez MD documented in this encounter [facility] 01-04-2023 Miscellaneous Notes The following approved medication requests have been transmitted electronically. Requested Prescriptions Signed Prescriptions Disp Refills traMADol (ULTRAM) 50 mg tablet 270 tablet 0 Sig: Take 1 tablet by mouth every 8 hours as needed for pain for up to 90 days. Authorizing Provider: LANE RODRIGUEZ MD Patient has been identified by name and date of : Yes Requested Prescriptions Pending Prescriptions Disp Refills traMADol (ULTRAM) 50 mg tablet 270 tablet 0 Sig: Take 1 tablet by mouth every 8 hours as needed for pain for up to 90 days. RX INSTRUCTIONS: Patient aware RX will be sent to pharmacy. No need to notify patient. Katherin Schmidt MA Aria: 06/2022 Nov: 01/2023 Last refill: 09/2022 documented in this encounter [facility] 11-12-2022 History of Presen t illness Narrative Associated Order(s): Large Joint Arthro/Inj: bilateral knee joints Post-Procedure Diagnose(s): Chronic pain of both knees; Primary osteoarthritis of both knees Patient presents with: Right Knee - Established Patient, Follow Up: 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 injections Left Knee - Established Patient: 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 injections Sugar Cruz MD Department of Orthopaedics Orthopa[facility] [address] [facility] [address] Dept: [phone] Dept November 12, 2022 CHIEF COMPLAINT: Established Patient and Follow Up of the Right Knee (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 injections) and Established Patient of the Left Knee (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 injections). HPI AMB ROOMING INTAKE FLOWSHEET DATA Risk Screening Do you have concerns about personal safety or safety in the home?: No Pain Pain Level: 5 Pain Location: Knee-Left (bilateral) Description: Stiffness Frequency: Continuous Intervention/Comfort measure: Medication Comments: injections ASSESSMENT: M25.561, M25.562, G89.29 Chronic pain of both knees (primary encounter diagnosis) M17.0 Primary osteoarthritis of both knees SUMMARY/PLAN: Repeat injections. Large Joint Arthro/Inj: bilateral knee joints Informed Consent Consent Obtained: Verbal [place] Protocol A moment to CARE was completed. SIGN IN Personnel directly involved with the procedure wore the appropriate PPE. Special Equipment: N/A Patient/Surrogate Stated/Verified: Patient name, Date of , Relevant allergies and Intended procedure TIME OUT Intended patient and procedure match the source document(s). Consent documented and matches the intended procedure. Relevant labs, photos, and/or imaging studies have been reviewed. Correct side/site marked and visible. Medications required for procedure verified. No fire risk assessment and interventions applicable. No implant(s) inserted. 11/12/2022 11:00 AM The procedure site was prepped in the usual sterile fashion. Site: bilateral knee joints Medications (Right): 6 mg betamethasone acetate-betamethasone sodium phosphate 6 mg/mL Medications (Left): 6 mg betamethasone acetate-betamethasone sodium phosphate 6 mg/mL Anesthetics (Right): 4 mL lidocaine (PF) 10 mg/mL (1 %) Anesthetics (Left): 4 mL lidocaine (PF) 10 mg/mL (1 %) Outcome: Tolerated well, no immediate complications Post-injection instructions were reviewed with the patient and the patient voiced understanding of these instructions. SIGN OUT No specimen collected. All instruments, equipment, possible retained foreign bodies accounted for. Post-procedure follow-up management communicated and Plan of Care Visit completed when applicable Supporting Information Below: Medications: Current Outpatient Medications Medication Sig traMADol (ULTRAM) 50 mg tablet Take 1 tablet by mouth every 8 hours as needed for pain for up to 90 days. citalopram (CELEXA) 40 mg tablet Take 1 tablet by mouth once daily. metoprolol succinate ER (TOPROL XL) 100 mg Take 1 tablet by mouth once daily. losartan (COZAAR) 100 mg tablet Take 1 tablet by mouth twice daily. levothyroxine (LEVOXYL) 125 mcg tablet Take one tab once a day and 1.5 tabs on Wednesday, Take on empty stomach. For Thyroid. ondansetron orally disintegrating (ZOFRAN ODT) 4 mg disintegrating tablet Take 1 tablet by mouth every 6 hours as needed for nausea/vomiting. omeprazole (PRILOSEC) 40 mg capsule Take 1 capsule by mouth twice daily. celecoxib (CELEBREX) 100 mg capsule Take 1 capsule by mouth twice daily. rosuvastatin (CRESTOR) 5 mg tablet Take 1 tablet by mouth once daily. fluticasone propionate (FLOVENT DISKUS) 100 mcg/actuation inhaler Inhale 1 Puff as instructed twice daily. albuterol HFA (PROVENTIL HFA, VENTOLIN HFA) 90 mcg/actuation inhaler Inhale 2 Puffs as instructed every 4 hours as needed. cyanocobalamin (VITAMIN B-12) 1,000 mcg tab Take 1 tablet by mouth once daily. nitroglycerin sublingual (NITROQUICK) 0.4 mg SL tablet Dissolve 1 tablet under the tongue every 5 minutes as needed. aspirin, enteric coated (ASPIRIN, ENTERIC COATED) 81 mg EC tablet Take 81 mg by mouth once daily. sucralfate (CARAFATE) 1 gram tablet Take 1 tablet by mouth four times daily. (Patient not taking: No sig reported) COMPOUNDED PRESCRIPTION CPAP chin strap, #: one Dx: G47.33 (Patient not taking: No sig reported) CPAP Dream Wear mask for CPAP. Dx MATT (Patient not taking: No sig reported) No current facility-administered medications for this visit. Allergies: Iodine, Hctz [Thiazides], Hi Inhibitors, Chantix [Varenicline], Lipitor [Atorvastatin Calcium], Mucinex [Guaifenesin], Pravachol [Pravastatin Sodium], and Zanaflex [Tizanidine] Sugar Cruz MD documented in this encounter [facility] 10-05-2022 Miscellaneous Notes Pts daughter called and is notified of providers results and instructions. She voices understanding. Went over appointment notes from Pts last appointment. Savannah Lockett RN Let patient know urine culture came back positive. Antibiotic sent in to [facility]. The following approved medication requests have been transmitted electronically. Requested Prescriptions Signed Prescriptions Disp Refills cefADROxil (DURICEF) 500 mg capsule 14 capsule 0 Sig: Take 1 capsule by mouth twice daily for 7 days. Authorizing Provider: LANE RODRIGUEZ MD documented in this encounter [facility] 09-30-2022 History of Presen t illness Narrative Chief Complaint Patient presents with: Recheck: Lump in right breast Possible bladder infection HPI Dayanna Garza is a 82 year old female who presents here today for bladder infection/ lump in right breast Patient thinks she started noticing symptoms of a UTI maybe a week ago. On occasional has had some frequency and urgency. Also on occasion has some dysuria. No fevers, chills, nausea or vomiting. Patient noted a lump in the right breast a few weeks ago in the right breast. No tenderness. Believes it's about the size of a pea. No nipple discharge and no skin changes over the area. tramadol continues to be affective for controlling her knee pain when she needs it. No issues or side affects. The Celebrex has also been very helpful. Past medical history, appointments, medications, allergies reviewed. Previous Medical History PAST MEDICAL HISTORY Diagnosis Date Acquired hypothyroidism 08/02/2015 Anxiety Anxiety 01/19/2010 -continue home citalopram BPV (benign positional vertigo) 08/02/2015 Chronic pain of both knees 05/24/2020 Seeing Ortho: Dr. Cruz Coronary artery 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 08/02/2015 Not seeing cardiology Degenerative disc disease, lumbar 05/26/2018 Elevated hemoglobin (HCC) 04/17/2020 to be rechecked 05/17/2020 Elevated hemoglobin A1c 12/30/2017 Epidermal inclusion cyst 09/09/2019 anterior chest wall excised 08/2019 Essential hypertension 01/26/2017 GERD without esophagitis 07/08/2022 Graves disease Heart attack (HCC) Michael stent in heart History of COVID-19 07/08/202205/2022 History of non-ST elevation myocardial infarction (NSTEMI) 01/19/201001/2010 Intradermal nevus 12/30/2014 right inferrior medial breast Keratosis, inflamed seborrheic 12/30/2014 right upper back Left carpal tunnel syndrome 01/04/[address] 12/03/2021 Daughter Truong is DPOA Low vitamin B12 level 04/06/2014 Lumbar radicular pain 05/26/2018 Added automatically from request for surgery [id number] Medicare annual wellness visit, subsequent 06/21/2017 Medicare wellness: NA last done: 08/16/2019 Mixed hyperlipidemia 01/19/2010 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 Treated with cryo 10/14/2016 Obesity, Class I, BMI 30-34.9 12/30/2018 Osteoarthritis 11/28/2015 Substance agreement signed 05/2020 for tramadol BID: Knees, Hips (Rt>Lt), substance agreement signed for tramadol Pain in right hip 04/29/2016 Personal history of colonic polyps 09/13/2006 hyperplastic Pulmonary emphysema (HCC) 08/02/2015 Changes of seen on chest x-ray 07/2014 Recurrent major depressive disorder, in partial remission (HCC) 04/14/2016 Severe obstructive sleep apnea AHI 32.5 04/24/2015 DME: [employer] Smoker 01/19/2010 Started at age 31 up to 1 PPD Status post total replacement of right hip 12/30/2018 Trigger index finger of left hand 08/22/2015 Trigger middle finger of left hand 08/04/2015 Trochanteric bursitis of left hip 08/16/2019 Previous Surgical History PAST SURGICAL HISTORY Procedure Laterality Date 2D ECHO (EXEP) 12/21/2019 EF=60%, 1+ TI, HI, AI 2D ECHO (EXEP) 02/17/2021 EF= 60%, mod santos dysf, ARTHRP ACETBLR/PROX FEM PROSTC AGRFT/ALGRFT Right 12/30/2018 Hip replacement, total CC CORONARY STENT 12/21/2019 MARCOS to mLCx COLONOSCOPY 05/01/2016 serrated adenoma/Repeat 04/2019 COLONOSCOPY COLONOSCOPY & POLYPECTOMY 09/13/2006 hyperplastic polyp- repeat 2015 CORONARY STENT EA VESSEL 01/2010 ESOPHAGOGASTRODUODENOSCOPY TRANSORAL DIAGNOSTIC 07/02/2021 LEXISCAN STRESS TEST 02/17/2021 negative NEUROPLASTY &/TRANSPOS MEDIAN NRV CARPAL TUNNE Left 02/09/2018 Left carpal tunnel release SLING OPER STRES INCONTINENCE 1998, 2012 (Dr. Yi) XCAPSL CTRC RMVL INSJ IO LENS PROSTH W/O ECP Bilateral 09-28-12 and 11-07-12 Cataract Extraction with PC IOL Family History FAMILY HISTORY Problem Relation Age of Onset Cancer Father prostate Hypertension Father Alzheimer's Disease Brother at 78 Coronary Artery Disease Mother blood clots- at 65 Breast Cancer Daughter Breast Cancer Daughter Blood Clots Daughter while preganant- PE Patient Allergies ALLERGIES Allergen Reactions Iodine Anaphylaxis Hctz [Thiazides] Other: See Comments Dehydrated, nauseated and week Hi Inhibitors Cough Chantix [Vareniclin* Other: See Comments Bad dreams Lipitor [Atorvastat* Other: See Comments Muscle pains Mucinex [Guaifenesi* Mental Status Change dizziness and confusion Pravachol [Pravasta* Other: See Comments Muscle aches Zanaflex [Tizanidin* Other: See Comments Caused pt to feel jittery all over Current Medications Current Outpatient Medications on File Prior to Visit Medication Sig citalopram (CELEXA) 40 mg tablet Take 1 tablet by mouth once daily. metoprolol succinate ER (TOPROL XL) 100 mg Take 1 tablet by mouth once daily. losartan (COZAAR) 100 mg tablet Take 1 tablet by mouth twice daily. levothyroxine (LEVOXYL) 125 mcg tablet Take one tab once a day and 1.5 tabs on Wednesday, Take on empty stomach. For Thyroid. ondansetron orally disintegrating (ZOFRAN ODT) 4 mg disintegrating tablet Take 1 tablet by mouth every 6 hours as needed for nausea/vomiting. traMADol (ULTRAM) 50 mg tablet Take 1 tablet by mouth every 8 hours as needed for pain for up to 90 days. omeprazole (PRILOSEC) 40 mg capsule Take 1 capsule by mouth twice daily. celecoxib (CELEBREX) 100 mg capsule Take 1 capsule by mouth twice daily. rosuvastatin (CRESTOR) 5 mg tablet Take 1 tablet by mouth once daily. fluticasone propionate (FLOVENT DISKUS) 100 mcg/actuation inhaler Inhale 1 Puff as instructed twice daily. sucralfate (CARAFATE) 1 gram tablet Take 1 tablet by mouth four times daily. (Patient not taking: Reported on 10/23/2021 ) albuterol HFA (PROVENTIL HFA, VENTOLIN HFA) 90 mcg/actuation inhaler Inhale 2 Puffs as instructed every 4 hours as needed. cyanocobalamin (VITAMIN B-12) 1,000 mcg tab Take 1 tablet by mouth once daily. nitroglycerin sublingual (NITROQUICK) 0.4 mg SL tablet Dissolve 1 tablet under the tongue every 5 minutes as needed. aspirin, enteric coated (ASPIRIN, ENTERIC COATED) 81 mg EC tablet Take 81 mg by mouth once daily. COMPOUNDED PRESCRIPTION CPAP chin strap, #: one Dx: G47.33 CPAP Dream Wear mask for CPAP. Dx MATT No current facility-administered medications on file prior to visit. Social History Social History Tobacco Use Smoking status: Every Day Packs/day: 1.00 Types: Cigarettes Last attempt to quit: 04/08/2021 Years since quittin.4 Smokeless tobacco: Never Tobacco comments: 3 cigarettes per day Vaping Use Vaping Use: current everyday user Substances: Nicotine Devices: Disposable Substance Use Topics Alcohol use: Yes Comment: occasional glass of wine, once a month Drug use: No Review of Symptoms REVIEW OF SYSTEMS See HPI EXAM: BP 158/70 (BP Site: Right Arm, BP Position: Sitting, BP Cuff Size: Regular Adult) Pulse 64 Wt 76.7 kg (169 lb) BMI 29.57 kg/m General Appearance: Well appearing, alert, in no acute distress, well-hydrated, well nourished.. Breast: right breast shows a small nodule in the right lateral lower quadrant and one in the right medical upper quadrant. . Lymph Nodes: No cervical lymphadenopathy, No supraclavicular lymphadenopathy, and No axillary lymphadenopathy.. Health Maintenance List ADVANCE DIRECTIVE DISCUSSION Never done DTAP,TDAP,TD(1 - Tdap) due on 12/03/2022 SHINGRIX VACCINE(1 of 2) due on 12/03/2022 LDL CHOLESTEROL due on 11/19/2022 DIABETES SCREEN due on 06/11/2025 BONE DENSITY Completed SPIROMETRY Completed INFLUENZA Completed COVID-19 VACCINE Completed PNEUMOCOCCAL: 65+ Completed Data reviewed A/P ASSESSMENT/PLAN: 1. Urine frequency - ICD9: 788.41, ICD10: R35.0 (primary diagnosis): New Check - URINE CULTURE if positive will treat. 2. Arthritis of both knees - ICD9: 716.96, ICD10: M17.0 Cont - TRAMADOL 50 MG TABLET PDMP website checked and validated. All prescriptions have been APPROPRIATELY filled. No suspicious activity was identified. 09/30/[address] Rodriguez MD 3. Osteoarthritis, unspecified osteoarthritis type, unspecified site - ICD9: 715.90, ICD10: M19.90 - as per #2 - TRAMADOL 50 MG TABLET 4. Mass of right breast, unspecified quadrant - ICD9: 611.72, ICD10: N63.10 New - discussed getting diagnostic mammo and US. Patient not sure she would have anything done. Wants to discuss with her daughter and will let me know if wanting to proceed with imaging. Requested Prescriptions Signed Prescriptions Disp Refills traMADol (ULTRAM) 50 mg tablet 270 tablet 0 Sig: Take 1 tablet by mouth every 8 hours as needed for pain for up to 90 days. F/u BP check in 2 weeks Keep routine in January 2023 Lane Rodriguez MD documented in this encounter [facility] 08-10-2022 History of Presen t illness Narrative Associated Order(s): Large Joint Arthro/Inj: bilateral knee joints Post-Procedure Diagnose(s): Primary osteoarthritis of both knees; Chronic pain of both knees Sugar Cruz MD Department of Orthopaedics Orthopaedics [address] [place] [facility] [address] Dept: [phone] Dept August 10, 2022 CHIEF COMPLAINT: Established Patient and Injections of the Left Knee and Established Patient and Injections of the Right Knee HPI Patient here today for 14 weeks 4 days post visit OA bilateral knees with injection given. Patient reports good relief and would like injections again today. ASSESSMENT: M17.0 Primary osteoarthritis of both knees (primary encounter diagnosis) M25.561, M25.562, G89.29 Chronic pain of both knees PLAN: Returns for her routine steroid injections. Ms. Dayanna Garza was advised as to contrast therapies and/or to take analgesics/anti-inflammatories as needed and all contraindications were reviewed. OBJECTIVE: Ms. Dayanna Garza is a pleasant 82 year old in no apparent distress. Gen:There were no vitals taken for this visit. nl development, non obese, no deformities ENT: Normocephalic, normal hearing, moist mucosa CV: Pulses:DP/PT= 2+ and symmetric, capillary refill < 2 secs, no peripheral edema/varicosities Skin: no rash, bruising or lesions. Good turgor. Psych: cooperative and appropriate, alert and oriented x 3, good mood and affect. Musculoskeletal: Stable exam Large Joint Arthro/Inj: bilateral knee joints Informed Consent Consent Obtained: Verbal [place] Protocol A moment to CARE was completed. SIGN IN Personnel directly involved with the procedure wore the appropriate PPE. Special Equipment: N/A Patient/Surrogate Stated/Verified: Patient name, Date of , Relevant allergies and Intended procedure TIME OUT Intended patient and procedure match the source document(s). Consent documented and matches the intended procedure. Relevant labs, photos, and/or imaging studies have been reviewed. Correct side/site marked and visible. Medications required for procedure verified. No fire risk assessment and interventions applicable. No implant(s) inserted. 08/10/2022 10:45 AM The procedure site was prepped in the usual sterile fashion. Site: bilateral knee joints Medications (Right): 6 mg betamethasone acetate-betamethasone sodium phosphate 6 mg/mL Medications (Left): 6 mg betamethasone acetate-betamethasone sodium phosphate 6 mg/mL Anesthetics (Right): 4 mL lidocaine (PF) 10 mg/mL (1 %) Anesthetics (Left): 4 mL lidocaine (PF) 10 mg/mL (1 %) Outcome: Tolerated well, no immediate complications Post-injection instructions were reviewed with the patient and the patient voiced understanding of these instructions. SIGN OUT No specimen collected. All instruments, equipment, possible retained foreign bodies accounted for. Post-procedure follow-up management communicated and Plan of Care Visit completed when applicable Supporting Subjective Information Below: Past Surgical History: PAST SURGICAL HISTORY Procedure Laterality Date 2D ECHO (EXEP) 12/21/2019 EF=60%, 1+ TI, HI, AI 2D ECHO (EXEP) 02/17/2021 EF= 60%, mod santos dysf, ARTHRP ACETBLR/PROX FEM PROSTC AGRFT/ALGRFT Right 12/30/2018 Hip replacement, total CC CORONARY STENT 12/21/2019 MARCOS to mLCx COLONOSCOPY 05/01/2016 serrated adenoma/Repeat 04/2019 COLONOSCOPY COLONOSCOPY & POLYPECTOMY 09/13/2006 hyperplastic polyp- repeat 2016 CORONARY STENT EA VESSEL 01/2010 ESOPHAGOGASTRODUODENOSCOPY TRANSORAL DIAGNOSTIC 07/02/2021 LEXISCAN STRESS TEST 02/17/2021 negative NEUROPLASTY &/TRANSPOS MEDIAN NRV CARPAL TUNNE Left 02/09/2018 Left carpal tunnel release SLING OPER STRES INCONTINENCE 1998, 2012 (Dr. Yi) XCAPSL CTRC RMVL INSJ IO LENS PROSTH W/O ECP Bilateral 09-28-12 and 11-07-12 Cataract Extraction with PC IOL Medications: Current Outpatient Medications Medication Sig traMADol (ULTRAM) 50 mg tablet Take 1 tablet by mouth every 8 hours as needed for pain for up to 90 days. celecoxib (CELEBREX) 100 mg capsule Take 1 capsule by mouth twice daily. levothyroxine (LEVOXYL) 125 mcg tablet Take one tab once a day Wed-Wed and 1.5 tabs on Wednesday, Take on empty stomach. For Thyroid. citalopram (CELEXA) 40 mg tablet Take 1 tablet by mouth once daily. metoprolol succinate ER (TOPROL XL) 100 mg Take 1 tablet by mouth once daily. rosuvastatin (CRESTOR) 5 mg tablet Take 1 tablet by mouth once daily. losartan (COZAAR) 100 mg tablet Take 1 tablet by mouth twice daily. fluticasone propionate (FLOVENT DISKUS) 100 mcg/actuation inhaler Inhale 1 Puff as instructed twice daily. cyanocobalamin (VITAMIN B-12) 1,000 mcg tab Take 1 tablet by mouth once daily. aspirin, enteric coated (ASPIRIN, ENTERIC COATED) 81 mg EC tablet Take 81 mg by mouth once daily. ondansetron orally disintegrating (ZOFRAN ODT) 4 mg disintegrating tablet Take 1 tablet by mouth every 6 hours as needed for nausea/vomiting. omeprazole (PRILOSEC) 40 mg capsule Take 1 capsule by mouth twice daily. sucralfate (CARAFATE) 1 gram tablet Take 1 tablet by mouth four times daily. (Patient not taking: Reported on 10/23/2021 ) albuterol HFA (PROVENTIL HFA, VENTOLIN HFA) 90 mcg/actuation inhaler Inhale 2 Puffs as instructed every 4 hours as needed. nitroglycerin sublingual (NITROQUICK) 0.4 mg SL tablet Dissolve 1 tablet under the tongue every 5 minutes as needed. COMPOUNDED PRESCRIPTION CPAP chin strap, #: one Dx: G47.33 CPAP Dream Wear mask for CPAP. Dx MATT No current facility-administered medications for this visit. Allergies: Iodine, Hctz [Thiazides], Hi Inhibitors, Chantix [Varenicline], Lipitor [Atorvastatin Calcium], Mucinex [Guaifenesin], Pravachol [Pravastatin Sodium], and Zanaflex [Tizanidine] ROS: General (negative for fatigue, malaise, weight loss/gain) HEENT (negative for headache, earache, recent vision changes, sinus pain, sore throat) Respiratory (no recent shortness of breath, hemoptysis) CV (negative for chest tightness, palpitations) Musculoskeletal (see HPI) Psych (no depression, anxiety) Sugar Cruz MD documented in this encounter [facility] 07-08-[address] Rodriguez MD - 07/08/2022 6:12 PM EDT Please get labs and urine test done on or after 12/25/2022 prior to your next visit. documented in this encounter [facility] 07-08-2022 History of Presen t illness Narrative Chief Complaint Patient presents with: Recheck HPI Dayanna Garza is a 82 year old female who presents here today for 6 month follow up on medication. Patient is here for 6 month follow up. Patient indicated that she stopped taking her Plavix about 1 month ago. She would like to start taking Celebrex for her joint pain. She would also like to increase the omeprazole to twice daily. Was on it twice a day but patient wanted to reduce it to once a day but getting more up set stomach. Patient also had a recent eye treatment about a month ago. 5. Burning sensation when urinating; increased frequency. No hematuria. Urine was obtain and results given to provider. Patient has decided to stop seeing Dr. Rasmussen and Dr. Nicholas for her heart and lung related issues. Wearing her CPAP on occasion. Past medical history, appointments, medications, allergies reviewed. Previous Medical History PAST MEDICAL HISTORY Diagnosis Date Acquired hypothyroidism 08/02/2015 Anxiety Anxiety 01/19/2010 -continue home citalopram BPV (benign positional vertigo) 08/02/2015 Chronic pain of both knees 05/24/2020 Seeing Ortho: Dr. Cruz Coronary artery 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 08/02/2015 Not seeing cardiology Degenerative disc disease, lumbar 05/26/2018 Elevated hemoglobin (HCC) 04/17/2020 to be rechecked 05/17/2020 Elevated hemoglobin A1c 12/30/2017 Epidermal inclusion cyst 09/09/2019 anterior chest wall excised 08/2019 Essential hypertension 01/26/2017 Graves disease Heart attack (HCC) Michael stent in heart History of non-ST elevation myocardial infarction (NSTEMI) 01/19/201001/2010 Intradermal nevus 12/30/2014 right inferrior medial breast Keratosis, inflamed seborrheic 12/30/2014 right upper back Left carpal tunnel syndrome 01/04/[address] 12/03/2021 Daughter Truong is DPOA Low vitamin B12 level 04/06/2014 Lumbar radicular pain 05/26/2018 Added automatically from request for surgery [id number] Medicare annual wellness visit, subsequent 06/21/2017 Medicare wellness: NA last done: 08/16/2019 Mixed hyperlipidemia 01/19/2010 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 Treated with cryo 10/14/2016 Obesity, Class I, BMI 30-34.9 12/30/2018 Osteoarthritis 11/28/2015 Substance agreement signed 05/2020 for tramadol BID: Knees, Hips (Rt>Lt), substance agreement signed for tramadol Pain in right hip 04/29/2016 Personal history of colonic polyps 09/13/2006 hyperplastic Pulmonary emphysema (HCC) 08/02/2015 Changes of seen on chest x-ray 07/2014 Recurrent major depressive disorder, in partial remission (HCC) 04/14/2016 Severe obstructive sleep apnea AHI 32.5 04/24/2015 DME: [employer] Smoker 01/19/2010 Started at age 31 up to 1 PPD Status post total replacement of right hip 12/30/2018 Trigger index finger of left hand 08/22/2015 Trigger middle finger of left hand 08/04/2015 Trochanteric bursitis of left hip 08/16/2019 Previous Surgical History PAST SURGICAL HISTORY Procedure Laterality Date 2D ECHO (EXEP) 12/21/2019 EF=60%, 1+ TI, HI, AI 2D ECHO (EXEP) 02/17/2021 EF= 60%, mod santos dysf, ARTHRP ACETBLR/PROX FEM PROSTC AGRFT/ALGRFT Right 12/30/2018 Hip replacement, total CC CORONARY STENT 12/21/2019 MARCOS to mLCx COLONOSCOPY 05/01/2016 serrated adenoma/Repeat 04/2019 COLONOSCOPY COLONOSCOPY & POLYPECTOMY 09/13/2006 hyperplastic polyp- repeat 2016 CORONARY STENT EA VESSEL 01/2010 ESOPHAGOGASTRODUODENOSCOPY TRANSORAL DIAGNOSTIC 07/02/2021 LEXISCAN STRESS TEST 02/17/2021 negative NEUROPLASTY &/TRANSPOS MEDIAN NRV CARPAL TUNNE Left 02/09/2018 Left carpal tunnel release SLING OPER STRES INCONTINENCE 1998, 2012 (Dr. Yi) XCAPSL CTRC RMVL INSJ IO LENS PROSTH W/O ECP Bilateral 09-28-12 and 11-07-12 Cataract Extraction with PC IOL Family History FAMILY HISTORY Problem Relation Age of Onset Cancer Father prostate Hypertension Father Alzheimer's Disease Brother at 78 Coronary Artery Disease Mother blood clots- at 65 Breast Cancer Daughter Breast Cancer Daughter Blood Clots Daughter while preganant- PE Patient Allergies ALLERGIES Allergen Reactions Iodine Anaphylaxis Hctz [Thiazides] Other: See Comments Dehydrated, nauseated and week Hi Inhibitors Cough Chantix [Vareniclin* Other: See Comments Bad dreams Lipitor [Atorvastat* Other: See Comments Muscle pains Mucinex [Guaifenesi* Mental Status Change dizziness and confusion Pravachol [Pravasta* Other: See Comments Muscle aches Zanaflex [Tizanidin* Other: See Comments Caused pt to feel jittery all over Current Medications Current Outpatient Medications on File Prior to Visit Medication Sig levothyroxine (LEVOXYL) 125 mcg tablet Take one tab once a day and 1.5 tabs on Wednesday, Take on empty stomach. For Thyroid. citalopram (CELEXA) 40 mg tablet Take 1 tablet by mouth once daily. omeprazole (PRILOSEC) 40 mg capsule Take 1 capsule by mouth once daily. metoprolol succinate ER (TOPROL XL) 100 mg Take 1 tablet by mouth once daily. rosuvastatin (CRESTOR) 5 mg tablet Take 1 tablet by mouth once daily. losartan (COZAAR) 100 mg tablet Take 1 tablet by mouth twice daily. ondansetron orally disintegrating (ZOFRAN ODT) 4 mg disintegrating tablet Take 1 tablet by mouth every 6 hours as needed for nausea/vomiting. fluticasone propionate (FLOVENT DISKUS) 100 mcg/actuation inhaler Inhale 1 Puff as instructed twice daily. albuterol HFA (PROVENTIL HFA, VENTOLIN HFA) 90 mcg/actuation inhaler Inhale 2 Puffs as instructed every 4 hours as needed. cyanocobalamin (VITAMIN B-12) 1,000 mcg tab Take 1 tablet by mouth once daily. nitroglycerin sublingual (NITROQUICK) 0.4 mg SL tablet Dissolve 1 tablet under the tongue every 5 minutes as needed. aspirin, enteric coated (ASPIRIN, ENTERIC COATED) 81 mg EC tablet Take 81 mg by mouth once daily. CPAP Dream Wear mask for CPAP. Dx MATT clopidogrel (PLAVIX) 75 mg tablet Take 1 tablet by mouth once daily. (Patient not taking: Reported on 07/08/2022) sucralfate (CARAFATE) 1 gram tablet Take 1 tablet by mouth four times daily. (Patient not taking: Reported on 10/23/2021 ) COMPOUNDED PRESCRIPTION CPAP chin strap, #: one Dx: G47.33 No current facility-administered medications on file prior to visit. Social History Social History Tobacco Use Smoking status: Every Day Packs/day: 1.00 Types: Cigarettes Last attempt to quit: 04/08/2021 Years since quittin.2 Smokeless tobacco: Never Tobacco comments: 3 cigarettes per day Vaping Use Vaping Use: current everyday user Substances: Nicotine Devices: Disposable Substance Use Topics Alcohol use: Yes Comment: occasional glass of wine, once a month Drug use: No Review of Symptoms REVIEW OF SYSTEMS GENERAL: No weight loss, malaise or fevers NECK: Negative for lumps, goiter, pain and significant neck swelling RESPIRATORY: Negative for cough, hemoptysis, wheezing, COPD, dyspnea or shortness of breath CARDIOVASCULAR: Negative for chest pain, leg swelling, hypertension, CHF or palpitations GI: No vomiting, or diarrhea and No heartburn or reflux symptoms but getting nausea that was better with omeprazole twice a day. : See HPI MUSCULOSKELETAL: has increase pain in her joints. NEURO: No history of frequent headaches, syncope, paralysis, seizures or tremors EXAM: BP 128/86 (BP Site: Left Arm, BP Position: Sitting, BP Cuff Size: Regular Adult) Pulse 60 Resp 16 Wt 77.1 kg (170 lb) BMI 29.75 kg/m Last 6 Encounter Wt Readings: Date: Wt: 07/08/2022 77.1 kg (170 lb) 03/20/2022 77.7 kg (171 lb 3.2 oz) 12/03/2021 77.1 kg (170 lb) 09/03/2021 80.2 kg (176 lb 12.8 oz) 07/15/2021 82.1 kg (181 lb 1.6 oz) 06/03/2021 83 kg (183 lb) General Appearance: Well appearing, alert, in no acute distress, well-hydrated, well nourished.. Neck: Supple, no adenopathy; thyroid symmetric, normal size, no bruits. Lungs: Lungs clear to auscultation. No wheezing, rhonchi, rales.. Heart: RRR without murmur, gallop, or rubs. No ectopy. Abdomen: Normal abdominal exam, Abdomen soft, mild discomfort in the RLQ with no guarding. Bowel sounds normal. No masses, organomegaly. Extremities: No deformities, edema. Has some bug bites but no infection. Musculoskeletal: Muscular strength intact. Peripheral Pulses: Normal. Neurologic: Gait normal. Sensation to light touch and crainal nerves 2-12 intact.. Health Maintenance List ADVANCE DIRECTIVE DISCUSSION Never done COVID-19 VACCINE(4 - Booster for Moderna series) due on 02/12/2022 DTAP,TDAP,TD(1 - Tdap) due on 12/03/2022 SHINGRIX VACCINE(1 of 2) due on 12/03/2022 INFLUENZA(1) due on 07/09/2022 LDL CHOLESTEROL due on 11/19/2022 DIABETES SCREEN due on 06/11/2025 BONE DENSITY Completed SPIROMETRY Completed PNEUMOCOCCAL: 65+ Completed Data reviewed Component Latest Ref Rng & Units 06/11/2022 Glucose 74 - 99 mg/dL 88 BUN 7 - 21 mg/dL 17 Creatinine 0.58 - 0.96 mg/dL 1.03 (H) Sodium 136 - 144 mmol/L 138 Potassium 3.7 - 5.1 mmol/L 4.3 Chloride 97 - 105 mmol/L 102 CO2 22 - 30 mmol/L 24 Anion Gap 9 - 18 mmol/L 12 Calcium 8.5 - 10.2 mg/dL 8.3 (L) eGFR >=60 mL/min/1.73m 55 (L) Hemoglobin A1C 4.3 - 5.6 % 6.0 (H) Estimated Average Glucose mg/dL 126 TSH 0.270 - 4.200 mIU/L 3.610 Component Latest Ref Rng & Units 11/19/2021 WBC 3.70 - 11.00 k/uL 8.49 RBC 3.90 - 5.20 m/uL 4.87 Hemoglobin 11.5 - 15.5 g/dL 14.3 Hematocrit 36.0 - 46.0 % 43.1 MCV 80.0 - 100.0 fL 88.5 MCH 26.0 - 34.0 pG 29.4 MCHC 30.5 - 36.0 g/dL 33.2 RDW-CV 11.5 - 15.0 % 14.1 Platelet Count 150 - 400 k/uL 322 MPV 9.0 - 12.7 fL 10.8 Neut% % 68.3 Abs Neut (ANC) 1.45 - 7.50 k/uL 5.78 Lymph% % 20.3 Abs Lymph 1.00 - 4.00 k/uL 1.72 Elliott% % 8.0 Abs Elliott <0.87 k/uL 0.68 Eosin% % 2.8 Abs Eosin <0.46 k/uL 0.24 Baso% % 0.6 Abs Baso <0.11 k/uL 0.05 Nucleated Reds 0 /100 WBC 0.0 Absolute nRBC <0.01 k/uL <0.01 Diff Type Auto Diff Protein, Total 6.3 - 8.0 g/dL 6.7 Albumin 3.9 - 4.9 g/dL 4.1 Calcium 8.5 - 10.2 mg/dL 9.3 Bilirubin, Total 0.2 - 1.3 mg/dL 0.4 Alkaline Phosphatase 34 - 123 U/L 62 AST 13 - 35 U/L 13 Glucose 74 - 99 mg/dL 98 BUN 7 - 21 mg/dL 28 (H) Creatinine 0.58 - 0.96 mg/dL 1.06 (H) Sodium 136 - 144 mmol/L 138 Potassium 3.7 - 5.1 mmol/L 3.8 Chloride 97 - 105 mmol/L 99 CO2 22 - 30 mmol/L 25 Anion Gap 9 - 18 mmol/L 14 ALT 7 - 38 U/L 8 eGFR- >60 eGFR-All Other Races . 50 Total Cholesterol, Nonfasting <200 mg/dL 163 Triglycerides, Nonfasting <150 mg/dL 84 HDL Cholesterol, Nonfasting >39 mg/dL 48 LDL Cholesterol, Nonfasting <100 mg/dL 98 Non HDL Cholesterol, Nonfasting <130 mg/dL 115 VLDL Cholesterol, Nonfasting <30 mg/dL 17 Total Chol/HDL Ratio, Nonfasting <5.10 mg/dL 3.40 LDL/HDL Ratio, Nonfasting <2.54 mg/dL 2.04 Hemoglobin A1C 4.3 - 5.6 % 5.9 (H) Estimated Average Glucose mg/dL 123 TSH 0.270 - 4.200 uU/mL 0.222 (L) Magnesium 1.7 - 2.3 mg/dL 1.7 A/P ASSESSMENT/PLAN: 1. Essential hypertension - ICD9: 401.9, ICD10: I10 (primary diagnosis) - good control - Continue current medication(s) - Recommended regular aerobic exercise. - Recommend home blood pressure monitoring, to bring results in on next visit - Goal of BP <130/80 2. Mixed hyperlipidemia - ICD9: 272.2, ICD10: E78.2 - good control - Encouraged following a low fat, low cholesterol diet. - Discussed the benefits of regular aerobic exercise and weight loss. - Encouraged following a low carbohydrate, healthy oil intake diet. - Continue current therapy. 3. Acquired hypothyroidism - ICD9: 244.9, ICD10: E03.9 - Instructed patient on importance of taking on an empty stomach either first thing in the morning or at bedtime. - continue current dose of Synthroid 4. Elevated hemoglobin A1c - ICD9: 790.29, ICD10: R73.09 - patient to work on less sugar and carbs in diet. 5. Pulmonary emphysema, unspecified emphysema type (HCC) - ICD9: 492.8, ICD10: J43.9 - clinically stable. No changes. 6. Elevated hemoglobin (HCC) - ICD9: 282.7, ICD10: D58.2 - last lab was ok. 7. Coronary artery 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 - ICD9: 414.00, 414.3, ICD10: I25.10, I25.83 - clinically stable. Patient has decided not to see cardio any longer nad stopped her Plavix. 8. History of non-ST elevation myocardial infarction (NSTEMI) - ICD9: 412, ICD10: I25.2 - as per #8 9. Anxiety - ICD9: 300.00, ICD10: F41.9 - cont celexa 40 mg a day 10. Recurrent major depressive disorder, in partial remission (HCC) - ICD9: 296.35, ICD10: F33.41 - a s per #9 11. Low vitamin B12 level - ICD9: 266.2, ICD10: E53.8 - cont replacement 12. Obesity, Class I, BMI 30-34.9 - ICD9: 278.00, ICD10: E66.9 Stable - Behavioral intervention 13. Severe obstructive sleep apnea AHI 32.5 - ICD9: 327.23, ICD10: G47.33 - cont use of CPAP. Encouraged nightly 14. Osteoarthritis, unspecified osteoarthritis type, unspecified site - ICD9: 715.90, ICD10: M19.90 Cont prn - TRAMADOL 50 MG TABLET PDMP website checked and validated. All prescriptions have been APPROPRIATELY filled. No suspicious activity was identified. 07/08/[address] Rodriguez MD 15. Arthritis of both knees - ICD9: 716.96, ICD10: M17.0 Cont - TRAMADOL 50 MG TABLET 16. Smoker - ICD9: 305.1, ICD10: F17.200 - Cessation encouraged. - Counseling was given focusing on the harmful effects of this addiction especially given the patient's medical condition(s) which will be worsened because of the chemicals in tobacco. - patient has no interest in quitting. 17. Lumbar radicular pain - ICD9: 724.4, ICD10: M54.16 - as per #15 18. Acute cystitis without hematuria - ICD9: 595.0, ICD10: N30.00 - will Tx with macrobid as below 19. RLQ abdominal pain - ICD9: 789.03, ICD10: R10.31 Check - US ABDOMEN COMPLETE - US FEMALE PELVIS TRANSVAG 20. Low serum calcium - ICD9: 790.6, ICD10: R79.89 check - CALCIUM TOTAL BLD 21. GERD without esophagitis - ICD9: 530.81, ICD10: K21.9 - Begin treatment with Prilosec 40 mg BID Requested Prescriptions Signed Prescriptions Disp Refills ondansetron orally disintegrating (ZOFRAN ODT) 4 mg disintegrating tablet 20 tablet 1 Sig: Take 1 tablet by mouth every 6 hours as needed for nausea/vomiting. traMADol (ULTRAM) 50 mg tablet 270 tablet 0 Sig: Take 1 tablet by mouth every 8 hours as needed for pain for up to 90 days. omeprazole (PRILOSEC) 40 mg capsule 180 capsule 1 Sig: Take 1 capsule by mouth twice daily. celecoxib (CELEBREX) 100 mg capsule 180 capsule 1 Sig: Take 1 capsule by mouth twice daily. nitrofurantoin monohydrate and macrocrystal (MACROBID) 100 mg capsule 14 capsule 0 Sig: Take 1 capsule by mouth twice daily with meals for 7 days. F/u in 3 months pain medication f/u F/u 6 months extensive check CMP, Lipid, UA, A1c, CBC, B12, TSH, Mg prior Lane Rodriguez MD documented in this encounter [facility] 04-30-2022 History of Presen t illness Narrative Associated Order(s): Large Joint Arthro/Inj: bilateral knee joints Sugar Cruz MD Department of Orthopaedics [facility] [address] [place] [address] Dept: [phone] Dept April 30, 2022 CHIEF COMPLAINT: Follow Up of the Left Knee, Follow Up of the Right Knee, and 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 visit OA bilateral knees (with injections given - wants injections) HPI Patient states injections helped for about a month. She would like injections today. Feels she gets better relief if given in her anterior. Taking Tramadol as needed for the pain and helps take the edge off. AMB ROOMING INTAKE FLOWSHEET DATA Risk Screening Do you have concerns about personal safety or safety in the home?: No Pain Pain Level: (10 - right knee, 8 - left knee) Pain Location: (Bilateral knee pain) Description: Other: See comment (Grinding) Duration Amount of Time: (Ongoing) Frequency: Continuous Intervention/Comfort measure: Medication ASSESSMENT: M17.0 Primary osteoarthritis of both knees (primary encounter diagnosis) M25.561, M25.562, G89.29 Chronic pain of both knees PLAN: She would like repeat injections. Ms. Dayanna Garza was advised as to contrast therapies and/or to take analgesics/anti-inflammatories as needed and all contraindications were reviewed. OBJECTIVE: Ms. Dayanna Garza is a pleasant 81 year old in no apparent distress. Gen:There were no vitals taken for this visit. nl development, non obese, no deformities ENT: Normocephalic, normal hearing, moist mucosa CV: Pulses:DP/PT= 2+ and symmetric, capillary refill < 2 secs, no peripheral edema/varicosities Skin: no rash, bruising or lesions. Good turgor. Psych: cooperative and appropriate, alert and oriented x 3, good mood and affect. Musculoskeletal: Stable exam from prior visit Large Joint Arthro/Inj: bilateral knee joints Informed Consent Consent Obtained: Verbal [place] Protocol A moment to CARE was completed. SIGN IN Personnel directly involved with the procedure wore the appropriate PPE. Special Equipment: N/A Patient/Surrogate Stated/Verified: Patient name, Date of , Relevant allergies and Intended procedure TIME OUT Intended patient and procedure match the source document(s). Consent documented and matches the intended procedure. Relevant labs, photos, and/or imaging studies have been reviewed. Correct side/site marked and visible. Medications required for procedure verified. No fire risk assessment and interventions applicable. No implant(s) inserted. 04/30/2022 11:57 AM The procedure site was prepped in the usual sterile fashion. Site: bilateral knee joints Medications (Right): 6 mg betamethasone acetate-betamethasone sodium phosphate 6 mg/mL Medications (Left): 6 mg betamethasone acetate-betamethasone sodium phosphate 6 mg/mL Anesthetics (Right): 4 mL lidocaine (PF) 10 mg/mL (1 %) Anesthetics (Left): 4 mL lidocaine (PF) 10 mg/mL (1 %) Outcome: Tolerated well, no immediate complications Post-injection instructions were reviewed with the patient and the patient voiced understanding of these instructions. SIGN OUT No specimen collected. All instruments, equipment, possible retained foreign bodies accounted for. Post-procedure follow-up management communicated and Plan of Care Visit completed when applicable Imaging: Deferred today Supporting Subjective Information Below: Past Surgical History: PAST SURGICAL HISTORY Procedure Laterality Date 2D ECHO (EXEP) 12/21/2019 EF=60%, 1+ TI, HI, AI 2D ECHO (EXEP) 02/17/2021 EF= 60%, mod santos dysf, ARTHRP ACETBLR/PROX FEM PROSTC AGRFT/ALGRFT Right 12/30/2018 Hip replacement, total CC CORONARY STENT 12/21/2019 MARCOS to mLCx COLONOSCOPY 05/01/2016 serrated adenoma/Repeat 04/2019 COLONOSCOPY COLONOSCOPY & POLYPECTOMY 09/13/2006 hyperplastic polyp- repeat 2016 CORONARY STENT EA VESSEL 01/2010 ESOPHAGOGASTRODUODENOSCOPY TRANSORAL DIAGNOSTIC 07/02/2021 LEXISCAN STRESS TEST 02/17/2021 negative NEUROPLASTY &/TRANSPOS MEDIAN NRV CARPAL TUNNE Left 02/09/2018 Left carpal tunnel release SLING OPER STRES INCONTINENCE 1998, 2012 (Dr. Yi) XCAPSL CTRC RMVL INSJ IO LENS PROSTH W/O ECP Bilateral 09-28-12 and 11-07-12 Cataract Extraction with PC IOL Medications: Current Outpatient Medications Medication Sig levothyroxine (LEVOXYL) 125 mcg tablet Take one tab once a day Wed-Wed and 1.5 tabs on Wednesday, Take on empty stomach. For Thyroid. citalopram (CELEXA) 40 mg tablet Take 1 tablet by mouth once daily. omeprazole (PRILOSEC) 40 mg capsule Take 1 capsule by mouth once daily. clopidogrel (PLAVIX) 75 mg tablet Take 1 tablet by mouth once daily. metoprolol succinate ER (TOPROL XL) 100 mg Take 1 tablet by mouth once daily. rosuvastatin (CRESTOR) 5 mg tablet Take 1 tablet by mouth once daily. losartan (COZAAR) 100 mg tablet Take 1 tablet by mouth twice daily. ondansetron orally disintegrating (ZOFRAN ODT) 4 mg disintegrating tablet Take 1 tablet by mouth every 6 hours as needed for nausea/vomiting. traMADol (ULTRAM) 50 mg tablet Take 1 tablet by mouth every 8 hours as needed for pain for up to 90 days. fluticasone propionate (FLOVENT DISKUS) 100 mcg/actuation inhaler Inhale 1 Puff as instructed twice daily. albuterol HFA (PROVENTIL HFA, VENTOLIN HFA) 90 mcg/actuation inhaler Inhale 2 Puffs as instructed every 4 hours as needed. cyanocobalamin (VITAMIN B-12) 1,000 mcg tab Take 1 tablet by mouth once daily. nitroglycerin sublingual (NITROQUICK) 0.4 mg SL tablet Dissolve 1 tablet under the tongue every 5 minutes as needed. aspirin, enteric coated (ASPIRIN, ENTERIC COATED) 81 mg EC tablet Take 81 mg by mouth once daily. COMPOUNDED PRESCRIPTION CPAP chin strap, #: one Dx: G47.33 CPAP Dream Wear mask for CPAP. Dx MATT sucralfate (CARAFATE) 1 gram tablet Take 1 tablet by mouth four times daily. (Patient not taking: Reported on 10/23/2021 ) No current facility-administered medications for this visit. Allergies: Iodine, Hctz [Thiazides], Hi Inhibitors, Chantix [Varenicline], Lipitor [Atorvastatin Calcium], Mucinex [Guaifenesin], Pravachol [Pravastatin Sodium], and Zanaflex [Tizanidine] ROS: General (negative for fatigue, malaise, weight loss/gain) HEENT (negative for headache, earache, recent vision changes, sinus pain, sore throat) Respiratory (no recent shortness of breath, hemoptysis) CV (negative for chest tightness, palpitations) Musculoskeletal (see HPI) Psych (no depression, anxiety) Sugar Cruz MD documented in this encounter [facility] 04-27-2022 History of Presen t illness Narrative [facility] CD[facility] Enrollment Provider Action/FYI: h/o emphysema Agreed to insight home monitoring using the browser Her daughter Vidya will help her fill out questionnaire once a week Pt lives with her daughter Goal,ADL and fall risk assessment completed Patient referred by: [facility] Cristiane Contact made with patient: Yes - Patient identified by name and . Discussed care with patient Carolyn this is Fernanda Armstrong RN and I am calling from Lane Rodriguez MD office at the [facility]. I am a RN Mine Captain with our [facility] Chronic Disease Management program. Lane Rodriguez MD wanted me to reach out to help you manage your health at home. Our goal is to keep you well at home. We want to help you manage your chronic disease by providing a safety net of resources around you, getting you the care you need in a timely manner, and hopefully keep you out of the ED and hospital. I will send you a few questions once a week through your [email or web address] account. It will automatically show up for you to complete. There are simple questions that will help us identify if you have any concerns or symptoms and I will call you to help get what you need. We will be able to connect you, review your symptoms, do an on demand visit, or communicate with Lane Rodriguez MD if needed. I am going to sign you up for the program now. Enrollment Questions: Let's get you enrolled in the program. Yes, Do you have regular access to a computer/smartphone? Yes. Goal Setting: I would like to take some time today to discuss your personal health goals. Yes, patient has goals. Capture the goal the patient wants to accomplish: yes. Does the goal align with programs offered at the [facility]? Yes Chronic Disease Management patient goals yes: stay healthy Most people know what to do to become healthier, yet struggle to put it into action on their own.It can be hard to maintain a healthy lifestyle, especially when life is so stressful. Can we connect you with a [facility] Health Artist Consultant to find a program that could help you meet your goals? No Closing: Patient accepts care aid Thank you for your time today. I am excited to work together in managing your health! You will receive information on next steps through your [email or web address] account, and I will check back within a few weeks to ensure you have all that you need to use the program successfully. (Place name in care team and assign [email or web address] Gem Cutter questionnaire) documented in this encounter [facility] 03-23-2022 Miscellaneous Notes Patient's daughter notified, verbalized understanding. Aleksey Fields Ma Let daughter know I don't know why it made a large increase. What I want to do is continue the 125 mcg once a day Wed-Sat and take 1.5 on Wednesday. New script sent and order placed to get TSH repeated in two months. The following approved medication requests have been transmitted electronically. Signed Prescriptions Disp Refills levothyroxine (LEVOXYL) 125 mcg tablet 96 tablet 1 Sig: Take one tab once a day Wed-Sat and 1.5 tabs on Wednesday, Take on empty stomach. For Thyroid. CASTILLO: No Authorizing Provider: LANE RODRIGUEZ MD Taking 125 mcg daily - Asking for refill to [facility]. Patient's daughter wants to know how TSH had made such a high jump? Let daughter know her mom's thyroid lab is showing she is not getting enough replacement. Find out if she is taking 125 mcg one a day or one Mon-Sat and 1/2 on Wednesday? My notes from 11/2021 say to do the former but the med list says the latter. documented in this encounter [facility] 03-20-2022 History of Presen t illness Narrative Chief Complaint Patient presents with: F/U 3 Month HPI Dayanna Garza is a 81 year old female who presents here today for f/u on pain meds. Patient with Hx of hypothyroidism, CAD, COPD, HTN, elevated A1c, hyperlipidemia, emphysema, depression, anxiety, obesity, MATT, smoker, low B12, Arthritis with chronic pain especially the knees as well as those reviewed and addressed below and in ROS. Since last seeing me Cardio had her stopped the HCTZ due to hypotension, dehydration, weakness and nausea. Has not had any recurrence since being off it. Still smoking but has cut back to to vaping just 3 times a day. Doing well with the celexa. Taking the omeprazole for control of her GERD. Uses zofran when needed but is not often. tramadol continues to be affective for controlling her knee pain when she needs it. No issues or side affects Seeing Dr. Nicholas for her lungs. Past medical history, appointments, medications, allergies reviewed. Previous Medical History PAST MEDICAL HISTORY Diagnosis Date Acquired hypothyroidism 08/02/2015 Anxiety Anxiety 01/19/2010 -continue home citalopram BPV (benign positional vertigo) 08/02/2015 Chronic pain of both knees 05/24/2020 Seeing Ortho: Dr. Cruz Coronary artery 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 08/02/2015 Not seeing cardiology Degenerative disc disease, lumbar 05/26/2018 Elevated hemoglobin (HCC) 04/17/2020 to be rechecked 05/17/2020 Elevated hemoglobin A1c 12/30/2017 Epidermal inclusion cyst 09/09/2019 anterior chest wall excised 08/2019 Essential hypertension 01/26/2017 Graves disease Heart attack (HCC) Michael stent in heart History of non-ST elevation myocardial infarction (NSTEMI) 01/19/201001/2010 Intradermal nevus 12/30/2014 right inferrior medial breast Keratosis, inflamed seborrheic 12/30/2014 right upper back Left carpal tunnel syndrome 01/04/[address] 12/03/2021 Daughter Truong is DPOA Low vitamin B12 level 04/06/2014 Lumbar radicular pain 05/26/2018 Added automatically from request for surgery [id number] Medicare annual wellness visit, subsequent 06/21/2017 Medicare wellness: NA last done: 08/16/2019 Mixed hyperlipidemia 01/19/2010 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 Treated with cryo 10/14/2016 Obesity, Class I, BMI 30-34.9 12/30/2018 Osteoarthritis 11/28/2015 Substance agreement signed 05/2020 for tramadol BID: Knees, Hips (Rt>Lt), substance agreement signed for tramadol Pain in right hip 04/29/2016 Personal history of colonic polyps 09/13/2006 hyperplastic Pulmonary emphysema (HCC) 08/02/2015 Changes of seen on chest x-ray 07/2014 Recurrent major depressive disorder, in partial remission (HCC) 04/14/2016 Severe obstructive sleep apnea AHI 32.5 04/24/2015 DME: [employer] Smoker 01/19/2010 Started at age 31 up to 1 PPD Status post total replacement of right hip 12/30/2018 Trigger index finger of left hand 08/22/2015 Trigger middle finger of left hand 08/04/2015 Trochanteric bursitis of left hip 08/16/2019 Previous Surgical History PAST SURGICAL HISTORY Procedure Laterality Date 2D ECHO (EXEP) 12/21/2019 EF=60%, 1+ TI, HI, AI 2D ECHO (EXEP) 02/17/2021 EF= 60%, mod santos dysf, ARTHRP ACETBLR/PROX FEM PROSTC AGRFT/ALGRFT Right 12/30/2018 Hip replacement, total CC CORONARY STENT 12/21/2019 MARCOS to mLCx COLONOSCOPY 05/01/2016 serrated adenoma/Repeat 04/2019 COLONOSCOPY COLONOSCOPY & POLYPECTOMY 09/13/2006 hyperplastic polyp- repeat 2016 CORONARY STENT EA VESSEL 01/2010 ESOPHAGOGASTRODUODENOSCOPY TRANSORAL DIAGNOSTIC 07/02/2021 LEXISCAN STRESS TEST 02/17/2021 negative NEUROPLASTY &/TRANSPOS MEDIAN NRV CARPAL TUNNE Left 02/09/2018 Left carpal tunnel release SLING OPER STRES INCONTINENCE 1998, 2012 (Dr. Yi) XCAPSL CTRC RMVL INSJ IO LENS PROSTH W/O ECP Bilateral 09-28-12 and 11-07-12 Cataract Extraction with PC IOL Family History FAMILY HISTORY Problem Relation Age of Onset Cancer Father prostate Hypertension Father Alzheimer's Disease Brother at 78 Coronary Artery Disease Mother blood clots- at 65 Breast Cancer Daughter Breast Cancer Daughter Blood Clots Daughter while preganant- PE Patient Allergies ALLERGIES Allergen Reactions Iodine Anaphylaxis Hctz [Thiazides] Other: See Comments Dehydrated, nauseated and week Hi Inhibitors Cough Chantix [Vareniclin* Other: See Comments Bad dreams Lipitor [Atorvastat* Other: See Comments Muscle pains Mucinex [Guaifenesi* Mental Status Change dizziness and confusion Pravachol [Pravasta* Other: See Comments Muscle aches Zanaflex [Tizanidin* Other: See Comments Caused pt to feel jittery all over Current Medications Current Outpatient Medications on File Prior to Visit Medication Sig ondansetron orally disintegrating (ZOFRAN ODT) 4 mg disintegrating tablet Take 1 tablet by mouth every 6 hours as needed for nausea/vomiting. citalopram (CELEXA) 40 mg tablet Take 1 tablet by mouth once daily. omeprazole (PRILOSEC) 40 mg capsule Take 1 capsule by mouth once daily. clopidogrel (PLAVIX) 75 mg tablet Take 1 tablet by mouth once daily. levothyroxine (LEVOXYL) 125 mcg tablet Take one tab once a day Wed-Wed and 1/2 a tab on Wednesday, Take on empty stomach. For Thyroid. metoprolol succinate ER (TOPROL XL) 100 mg Take 1 tablet by mouth once daily. rosuvastatin (CRESTOR) 5 mg tablet Take 1 tablet by mouth once daily. traMADol (ULTRAM) 50 mg tablet Take 1 tablet by mouth every 8 hours as needed for pain for up to 270 days. fluticasone propionate (FLOVENT DISKUS) 100 mcg/actuation inhaler Inhale 1 Puff as instructed twice daily. losartan (COZAAR) 100 mg tablet Take 1 tablet by mouth twice daily. albuterol HFA (PROVENTIL HFA, VENTOLIN HFA) 90 mcg/actuation inhaler Inhale 2 Puffs as instructed every 4 hours as needed. cyanocobalamin (VITAMIN B-12) 1,000 mcg tab Take 1 tablet by mouth once daily. nitroglycerin sublingual (NITROQUICK) 0.4 mg SL tablet Dissolve 1 tablet under the tongue every 5 minutes as needed. aspirin, enteric coated (ASPIRIN, ENTERIC COATED) 81 mg EC tablet Take 81 mg by mouth once daily. COMPOUNDED PRESCRIPTION CPAP chin strap, #: one Dx: G47.33 CPAP Dream Wear mask for CPAP. Dx MATT sucralfate (CARAFATE) 1 gram tablet Take 1 tablet by mouth four times daily. (Patient not taking: Reported on 10/23/2021 ) No current facility-administered medications on file prior to visit. Social History Social History Tobacco Use Smoking status: Current Every Day Smoker Packs/day: 1.00 Types: Cigarettes Last attempt to quit: 04/08/2021 Years since quittin.9 Smokeless tobacco: Never Used Tobacco comment: 3 cigarettes per day Vaping Use Vaping Use: Former Substances: Nicotine Devices: Disposable Substance Use Topics Alcohol use: Yes Comment: occasional glass of wine, once a month Drug use: No Review of Symptoms REVIEW OF SYSTEMS See HPI EXAM: BP 122/86 Pulse 68 Resp 16 Wt 77.7 kg (171 lb 3.2 oz) BMI 29.96 kg/m Last 4 Encounter Wt Readings: Date: Wt: 03/20/2022 77.7 kg (171 lb 3.2 oz) 12/03/2021 77.1 kg (170 lb) 09/03/2021 80.2 kg (176 lb 12.8 oz) 07/15/2021 82.1 kg (181 lb 1.6 oz) General Appearance: Well appearing, alert, in no acute distress, well-hydrated, well nourished.. Neck: Supple, no adenopathy; thyroid symmetric, normal size, no bruits. Lungs: Lungs clear to auscultation. No wheezing, rhonchi, rales.. Heart: RRR without murmur, gallop, or rubs. No ectopy. Abdomen: Normal abdominal exam, Abdomen soft, non-tender. Bowel sounds normal. No masses, organomegaly. Extremities: No deformities, edema, skin discoloration, Health Maintenance List ADVANCE DIRECTIVE DISCUSSION Never done COVID-19 VACCINE(4 - Booster for Moderna series) due on 02/12/2022 DTAP,TDAP,TD(1 - Tdap) due on 12/03/2022 SHINGRIX VACCINE(1 of 2) due on 12/03/2022 LDL CHOLESTEROL due on 11/19/2022 BP CONTROLLED (<130/80) due on 12/03/2022 ANNUAL PCP TEAM CHRONIC DISEASE VISIT due on 03/20/2023 DIABETES SCREEN due on 11/19/2024 BONE DENSITY Completed SPIROMETRY Completed INFLUENZA Completed PNEUMOVAX AGE 65 AND OVER WITH 5YR LOOKBACK Addressed MENINGOCOCCAL CONJUGATE Aged Out Data reviewed A/P ASSESSMENT/PLAN: 1. Arthritis of both knees - ICD9: 716.96, ICD10: M17.0 (primary diagnosis) - doing well and stable with the tramadol. No changes Substance agreement resigned. [facility] website checked and validated. All prescriptions have been APPROPRIATELY filled. No suspicious activity was identified. 03/20/[address] Rodriguez MD 2. Osteoarthritis, unspecified osteoarthritis type, unspecified site - ICD9: 715.90, ICD10: M19.90 - As above 3. Medication management - ICD9: V58.69, ICD10: Z79.899 - Check tox and pain panel Signed Prescriptions Disp Refills citalopram (CELEXA) 40 mg tablet 90 tablet 1 Sig: Take 1 tablet by mouth once daily. CASTILLO: No omeprazole (PRILOSEC) 40 mg capsule 90 capsule 1 Sig: Take 1 capsule by mouth once daily. CASTILLO: No clopidogrel (PLAVIX) 75 mg tablet 90 tablet 1 Sig: Take 1 tablet by mouth once daily. CASTILLO: No metoprolol succinate ER (TOPROL XL) 100 mg 90 tablet 1 Sig: Take 1 tablet by mouth once daily. CASTILLO: No rosuvastatin (CRESTOR) 5 mg tablet 90 tablet 1 Sig: Take 1 tablet by mouth once daily. CASTILLO: No losartan (COZAAR) 100 mg tablet 180 tablet 1 Sig: Take 1 tablet by mouth twice daily. CASTILLO: No ondansetron orally disintegrating (ZOFRAN ODT) 4 mg disintegrating tablet 20 tablet 1 Sig: Take 1 tablet by mouth every 6 hours as needed for nausea/vomiting. CASTILLO: No traMADol (ULTRAM) 50 mg tablet 270 tablet 0 Sig: Take 1 tablet by mouth every 8 hours as needed for pain for up to 90 days. YASMIN Class: C-IV CASTILLO: No Has f/u in May. Lane Rodriguez MD documented in this encounter [facility] documented as of this encounter (statuses as of 03/22/2022) [facility] History of Past illness Narrative* Problem Noted Date Resolved Date SUMMARY 01/19/2010 11/04/2011 Overview: 69 yo woman with HLD, COPD, hypothyroidism p/w chest pain and +troponin, consistent with NSTEMI. documented as of this encounter (statuses as of 03/23/2022) [facility] History of Past illness Narrative* Problem Noted Date Resolved Date SUMMARY 01/19/2010 11/04/2011 Overview: 69 yo woman with HLD, COPD, hypothyroidism p/w chest pain and +troponin, consistent with NSTEMI. documented as of this encounter (statuses as of 04/28/2022) [facility] History of Past illness Narrative* Problem Noted Date Resolved Date SUMMARY 01/19/2010 11/04/2011 Overview: 69 yo woman with HLD, COPD, hypothyroidism p/w chest pain and +troponin, consistent with NSTEMI. documented as of this encounter (statuses as of 05/20/2022) [facility] History of Past illness Narrative* Problem Noted Date Resolved Date SUMMARY 01/19/2010 11/04/2011 Overview: 69 yo woman with HLD, COPD, hypothyroidism p/w chest pain and +troponin, consistent with NSTEMI. documented as of this encounter (statuses as of 07/10/2022) [facility] History of Past illness Narrative* Problem Noted Date Resolved Date SUMMARY 01/19/2010 11/04/2011 Overview: 69 yo woman with HLD, COPD, hypothyroidism p/w chest pain and +troponin, consistent with NSTEMI. documented as of this encounter (statuses as of 08/11/2022) [facility] History of Past illness Narrative* Problem Noted Date Resolved Date SUMMARY 01/19/2010 11/04/2011 Overview: 69 yo woman with HLD, COPD, hypothyroidism p/w chest pain and +troponin, consistent with NSTEMI. documented as of this encounter (statuses as of 10/04/2022) [facility] History of Past illness Narrative* Problem Noted Date Resolved Date SUMMARY 01/19/2010 11/04/2011 Overview: 69 yo woman with HLD, COPD, hypothyroidism p/w chest pain and +troponin, consistent with NSTEMI. documented as of this encounter (statuses as of 10/05/2022) [facility] History of Past illness Narrative* Problem Noted Date Resolved Date SUMMARY 01/19/2010 11/04/2011 Overview: 69 yo woman with HLD, COPD, hypothyroidism p/w chest pain and +troponin, consistent with NSTEMI. documented as of this encounter (statuses as of 11/13/2022) [facility] History of Past illness Narrative* Problem Noted Date Resolved Date SUMMARY 01/19/2010 11/04/2011 Overview: 69 yo woman with HLD, COPD, hypothyroidism p/w chest pain and +troponin, consistent with NSTEMI. documented as of this encounter (statuses as of 01/04/2023) [facility] History of Past illness Narrative* Problem Noted Date Resolved Date SUMMARY 01/19/2010 11/04/2011 Overview: 69 yo woman with HLD, COPD, hypothyroidism p/w chest pain and +troponin, consistent with NSTEMI. documented as of this encounter (statuses as of 01/22/2023) [facility] History of Past illness Narrative* Problem Noted Date Resolved Date SUMMARY 01/19/2010 11/04/2011 Overview: 69 yo woman with HLD, COPD, hypothyroidism p/w chest pain and +troponin, consistent with NSTEMI. documented as of this encounter (statuses as of 01/25/2023) [facility] History of Past illness Narrative* Problem Noted Date Resolved Date SUMMARY 01/19/2010 11/04/2011 Overview: 69 yo woman with HLD, COPD, hypothyroidism p/w chest pain and +troponin, consistent with NSTEMI. documented as of this encounter (statuses as of 03/15/2023) [facility] History of Past illness Narrative* Problem Noted Date Resolved Date SUMMARY 01/19/2010 11/04/2011 Overview: 69 yo woman with HLD, COPD, hypothyroidism p/w chest pain and +troponin, consistent with NSTEMI. documented as of this encounter (statuses as of 04/09/2023) [facility] History of Past illness Narrative* Problem Noted Date Resolved Date SUMMARY 01/19/2010 11/04/2011 Overview: 69 yo woman with HLD, COPD, hypothyroidism p/w chest pain and +troponin, consistent with NSTEMI. documented as of this encounter (statuses as of 04/23/2023) [facility] History of Past illness Narrative* Problem Noted Date Resolved Date SUMMARY 01/19/2010 11/04/2011 Overview: 69 yo woman with HLD, COPD, hypothyroidism p/w chest pain and +troponin, consistent with NSTEMI. documented as of this encounter (statuses as of 05/13/2023) [facility] History of Past illness Narrative* Problem Noted Date Resolved Date SUMMARY 01/19/2010 11/04/2011 Overview: 69 yo woman with HLD, COPD, hypothyroidism p/w chest pain and +troponin, consistent with NSTEMI. documented as of this encounter (statuses as of 05/13/2023) [place] [id number] History of Past illness Narrative* Problem Noted Date Diagnosed Date Resolved Date SUMMARY 01/19/2010 11/04/2011 Overview: 69 yo woman with HLD, COPD, hypothyroidism p/w chest pain and +troponin, consistent with NSTEMI. documented as of this encounter (statuses as of 05/20/2023) [place] [id number] History of Past illness Narrative* Problem Noted Date Diagnosed Date Resolved Date SUMMARY 01/19/2010 11/04/2011 Overview: 69 yo woman with HLD, COPD, hypothyroidism p/w chest pain and +troponin, consistent with NSTEMI. documented as of this encounter (statuses as of 06/29/2023) [facility] History of Past illness Narrative* Problem Noted Date Diagnosed Date Resolved Date SUMMARY 01/19/2010 11/04/2011 Overview: 69 yo woman with HLD, COPD, hypothyroidism p/w chest pain and +troponin, consistent with NSTEMI. documented as of this encounter (statuses as of 07/08/2023) [facility] History of Past illness Narrative* Problem Noted Date Diagnosed Date Resolved Date SUMMARY 01/19/2010 11/04/2011 Overview: 69 yo woman with HLD, COPD, hypothyroidism p/w chest pain and +troponin, consistent with NSTEMI. documented as of this encounter (statuses as of 07/14/2023) [facility] History of Past illness Narrative* Problem Noted Date Diagnosed Date Resolved Date SUMMARY 01/19/2010 11/04/2011 Overview: 69 yo woman with HLD, COPD, hypothyroidism p/w chest pain and +troponin, consistent with NSTEMI. documented as of this encounter (statuses as of 07/23/2023) [facility] History of Past illness Narrative* Problem Noted Date Diagnosed Date Resolved Date SUMMARY 01/19/2010 11/04/2011 Overview: 69 yo woman with HLD, COPD, hypothyroidism p/w chest pain and +troponin, consistent with NSTEMI. documented as of this encounter (statuses as of 08/30/2023) [facility] History of Past illness Narrative* Problem Noted Date Diagnosed Date Resolved Date SUMMARY 01/19/2010 11/04/2011 Overview: 69 yo woman with HLD, COPD, hypothyroidism p/w chest pain and +troponin, consistent with NSTEMI. documented as of this encounter (statuses as of 08/30/2023) [facility] History of Past illness Narrative* Problem Noted Date Diagnosed Date Resolved Date SUMMARY 01/19/2010 11/04/2011 Overview: 69 yo woman with HLD, COPD, hypothyroidism p/w chest pain and +troponin, consistent with NSTEMI. documented as of this encounter (statuses as of 08/31/2023) [facility] History of Past illness Narrative* Problem Noted Date Diagnosed Date Resolved Date SUMMARY 01/19/2010 11/04/2011 Overview: 69 yo woman with HLD, COPD, hypothyroidism p/w chest pain and +troponin, consistent with NSTEMI. documented as of this encounter (statuses as of 10/11/2023) [address]14-2010 History of Past illness Narrative* Problem Noted Date Diagnosed Date Resolved Date SUMMARY 01/19/2010 11/04/2011 Overview: 69 yo woman with HLD, COPD, hypothyroidism p/w chest pain and +troponin, consistent with NSTEMI. documented as of this encounter (statuses as of 10/18/2023) [facility] History of Past illness Narrative* Problem Noted Date Diagnosed Date Resolved Date SUMMARY 01/19/2010 11/04/2011 Overview: 69 yo woman with HLD, COPD, hypothyroidism p/w chest pain and +troponin, consistent with NSTEMI. documented as of this encounter (statuses as of 10/22/2023) [facility] History of Past illness Narrative* Problem Noted Date Diagnosed Date Resolved Date SUMMARY 01/19/2010 11/04/2011 Overview: 69 yo woman with HLD, COPD, hypothyroidism p/w chest pain and +troponin, consistent with NSTEMI. documented as of this encounter (statuses as of 12/10/2023) [facility] [place] [facility] Diagnosis Arthritis of both knees- Primary Unspecified arthropathy, lower leg Osteoarthritis, unspecified osteoarthritis type, unspecified site Medication management Encounter for long-term (current) use of other medications [facility] [place] [facility] Diagnosis Acquired hypothyroidism- Primary Unspecified hypothyroidism [facility] [place] [facility] Diagnosis Primary osteoarthritis of both knees- Primary Primary localized osteoarthrosis, lower leg Chronic pain of both knees [facility] [place] [facility] Diagnosis Essential hypertension- Primary Unspecified essential hypertension Mixed hyperlipidemia Acquired hypothyroidism Unspecified hypothyroidism Elevated hemoglobin A1c Other abnormal blood chemistry Pulmonary emphysema, unspecified emphysema type (HCC) Elevated hemoglobin (HCC) Other hemoglobinopathies Coronary artery 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 History of non-ST elevation myocardial infarction (NSTEMI) Old myocardial infarction Anxiety Anxiety state, unspecified Recurrent major depressive disorder, in partial remission (HCC) Low vitamin B12 level Other B-complex deficiencies Obesity, Class I, BMI 30-34.9 Obesity, unspecified Severe obstructive sleep apnea AHI 32.5 Obstructive sleep apnea (adult) (pediatric) Osteoarthritis, unspecified osteoarthritis type, unspecified site Arthritis of both knees Unspecified arthropathy, lower leg Smoker Tobacco use disorder Lumbar radicular pain Thoracic or lumbosacral neuritis or radiculitis, unspecified Acute cystitis without hematuria Acute cystitis RLQ abdominal pain Abdominal pain, right lower quadrant Low serum calcium Medication management Encounter for long-term (current) use of other medications GERD without esophagitis Esophageal reflux [facility] [place] [facility] Diagnosis Primary osteoarthritis of both knees- Primary Primary localized osteoarthrosis, lower leg Chronic pain of both knees [facility] [place] [facility] Diagnosis Urine frequency- Primary Urinary frequency Arthritis of both knees Unspecified arthropathy, lower leg Osteoarthritis, unspecified osteoarthritis type, unspecified site Mass of right breast, unspecified quadrant [facility] [place] [facility] Diagnosis Chronic pain of both knees- Primary Primary osteoarthritis of both knees Primary localized osteoarthrosis, lower leg [facility] [place] [facility] Diagnosis Arthritis of both knees Unspecified arthropathy, lower leg Osteoarthritis, unspecified osteoarthritis type, unspecified site [facility] [place] [facility] Diagnosis Medicare annual wellness visit, subsequent- Primary Routine general medical examination at a health care facility Essential hypertension Unspecified essential hypertension Mixed hyperlipidemia Acquired hypothyroidism Unspecified hypothyroidism Elevated hemoglobin (HCC) Other hemoglobinopathies Elevated hemoglobin A1c Other abnormal blood chemistry Coronary artery 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 Pulmonary emphysema, unspecified emphysema type (HCC) Stage 3a chronic kidney disease (HCC) GERD without esophagitis Esophageal reflux Anxiety Anxiety state, unspecified Recurrent major depressive disorder, in partial remission (HCC) Low vitamin B12 level Other B-complex deficiencies Severe obstructive sleep apnea AHI 32.5 Obstructive sleep apnea (adult) (pediatric) Obesity, Class I, BMI 30-34.9 Obesity, unspecified Osteoarthritis, unspecified osteoarthritis type, unspecified site Smoker Tobacco use disorder Macular degeneration of both eyes, unspecified type Advance directive discussed with patient Other specified counseling Medication management Encounter for long-term (current) use of other medications Mass of breast, unspecified laterality [facility] [place] [facility] Diagnosis Primary osteoarthritis of both knees- Primary Primary localized osteoarthrosis, lower leg [facility] [place] [facility] Diagnosis Arthritis of both knees Unspecified arthropathy, lower leg Osteoarthritis, unspecified osteoarthritis type, unspecified site [facility] [place] [facility] Diagnosis Discolored skin- Primary Dyschromia, unspecified Arthritis of both knees Unspecified arthropathy, lower leg Encounter for immunization Need for other specified prophylactic vaccination against single bacterial disease documented in this encounter [facility] note* Diagnosis Pain in both knees, unspecified chronicity- Primary [facility] [place] [facility] Diagnosis Primary osteoarthritis of both knees- Primary Primary localized osteoarthrosis, lower leg Chronic pain of both knees [facility] [place] [facility] Diagnosis Acquired hypothyroidism- Primary Unspecified hypothyroidism documented in this encounter [facility] note* Diagnosis Arthritis of both knees Unspecified arthropathy, lower leg Osteoarthritis, unspecified osteoarthritis type, unspecified site documented in this encounter [facility] note* Diagnosis Essential hypertension- Primary Unspecified essential hypertension Mixed hyperlipidemia Elevated hemoglobin A1c Other abnormal blood chemistry Elevated hemoglobin (HCC) Other hemoglobinopathies Coronary artery 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 Pulmonary emphysema, unspecified emphysema type (HCC) Stage 3a chronic kidney disease (HCC) GERD without esophagitis Esophageal reflux Acquired hypothyroidism Unspecified hypothyroidism Anxiety Anxiety state, unspecified Recurrent major depressive disorder, in partial remission (HCC) Low vitamin B12 level Other B-complex deficiencies Obesity, Class I, BMI 30-34.9 Obesity, unspecified Smoker Tobacco use disorder Medication management Encounter for long-term (current) use of other medications documented in this encounter [facility] note* Diagnosis Essential hypertension- Primary Unspecified essential hypertension Encounter for immunization Need for other specified prophylactic vaccination against single bacterial disease documented in this encounter [facility] note* Diagnosis Primary osteoarthritis of both knees- Primary Primary localized osteoarthrosis, lower leg Chronic pain of both knees documented in this encounter [facility] note* Diagnosis Acquired hypothyroidism- Primary Unspecified hypothyroidism documented in this encounter [facility] note* Diagnosis Arthritis of both knees Unspecified arthropathy, lower leg Osteoarthritis, unspecified osteoarthritis type, unspecified site documented in this encounter [facility] note* Diagnosis Acquired hypothyroidism Unspecified hypothyroidism documented in this encounter [facility] note* Diagnosis Essential hypertension- Primary Unspecified essential hypertension documented in this encounter [facility] for referral (narrative)* Diagnostic Procedure Only (Routine) - Authorized Specialty Diagnoses / Procedures Referred By Contac t Referred To Contact US IMAGING Diagnoses RLQ abdominal pain Procedures US FEMALE PELVIS TRANSVAG US TRANSVAGINAL Lane Rodriguez MD [address] [place] [id number] Us Imaging Referral ID Status Reason Start Date Expiration Date Visits Requested Visits Authorized [id number] Authorized Auto-Generat ed Referral 07/08/2022 08/07/2023 1 1 * Diagnostic Procedure Only (Routine) - Authorized Specialty Diagnoses / Procedures Referred By Contac t Referred To Contact US IMAGING Diagnoses RLQ abdominal pain Procedures US ABDOMEN COMPLETE US ABDOMINAL REAL TIME W/IMAGE DOCUMENTATION Lane Rodriugez MD [address] [place] [id number] Us Imaging Referral ID Status Reason Start Date Expiration Date Visits Requested Visits Authorized [id number] Authorized Auto-Generat ed Referral 07/08/2022 08/07/2023 1 1 [facility] for referral (narrative)* Outpatient Procedure (Routine) - Authorized Specialty Diagnoses / Procedures Referred By Contac t Referred To Contact [facility] Diagnoses Discolored skin Procedures PVR ANK PRESS GISELLA [facility] NON-INVAS PHYSIOLOGIC STD EXTREMITY ART 2 LEVEL Rocio Arthur APRN.LIDAR ANALYST [address] [place] [id number] [facility] [address] [place] [address] Referral ID Status Reason Start Date Expiration Date Visits Requested Visits Authorized [id number] Authorized Auto-Generat ed Referral 04/22/2023 04/21/2024 1 [facility] Diagnostic Procedure Only (Routine) - Pending Review Specialty Diagnoses / Procedures Referred By Skip t Referred To Contact XR IMAGING Diagnoses Pain in both knees, unspecified chronicity Procedures XR KNEE GENERAL 4V AP BOTH/PA BOTH/LAT/MERC BILATERAL RADIOLOGIC EXAM KNEE COMPLETE 4/MORE VIEWS Sugar Cruz MD [address] [place] [address] Xr Imaging Referral ID Status Reason Start Date Expiration Date Visits Requested Visits Authorized [id number] Pending Review Auto-Generat ed Referral 05/19/2023 06/17/2024 1 1 [facility] Summary Purpose Family History No Family History Records FoundNo Family History Records FoundNo Family History Records Found Advance Directives No Advanced Directives Records FoundDocuments on File Type Date Recorded 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 Advance Directive(s) 07/02/2021 7:36 AM Advance Directive(s) 06/24/2021 4:02 PM Me rosalio Advance Directive(s) 01/31/2019 8:38 AM Advance Directive(s) 06/21/2018 10:15 AM Advance Directive(s) 06/17/2018 11:19 AM Advance Directive(s) 05/27/2018 7:34 AM Advance Directive(s) 04/20/2018 11:07 AM Advance Directive(s) 02/09/2018 9:18 AM Advance Directive(s) 06/24/2016 12:39 PM Advance Directive(s) 06/24/2016 1:22 PM Advance Directive(s) 05/01/2016 9:12 AM Advance Directive(s) 04/30/2016 10:06 AM Latest Code Status on File Code Status Date Activated Date Inactivated Comments Full Code 12/30/2018 9:45 AM 12/31/2018 6:25 PM Full Code Order Discussed With: Patient Documents on File Type Date Recorded 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 Advance Directive(s) 06/24/2016 1:22 PM Latest Code Status on File Code Status Date Activated Date Inactivated Comments Full Code 12/30/2018 9:45 AM 12/31/2018 6:25 PM Documents on File Type Date Recorded 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 Advance Directive(s) 06/24/2016 1:22 PM Latest Code Status on File Code Status Date Activated Date Inactivated Comments Full Code 12/30/2018 9:45 AM 12/31/2018 6:25 PM Question Answer Comments Full Code Order Discussed With: Patient Latest Code Status on File Code Status Date Activated Date Inactivated Comments Full Code 12/30/2018 9:45 AM 12/31/2018 6:25 PM Question Answer Comments Full Code Order Discussed With: Patient Medications Administered Section Inactive Administered Medications - up to 3 most recent administrations Medication Order MAR Action Action Date Dose Rate Site betamethasone acetate-betamethasone sodium phosphate 6 mg injection (CELESTONE) 6 mg, Injection - FOR ORTHO USE ONLY, ONE TIME INJECTION, 1 dose, Starting on [place] 04/30/22 at 1157, Until [place] 04/30/22 at 1157 Given 04/30/2022 11:57 AM EDT 6 mg lidocaine (PF) 10 mg/mL (1 %) 4 mL injection (XYLOCAINE) 4 mL, Injection - FOR ORTHO USE ONLY, ONE TIME INJECTION, 1 dose, Starting on [place] 04/30/22 at 1157, Until [place] 04/30/22 at 1157 Given 04/30/2022 11:57 AM EDT 4 mL Inactive Administered Medications - up to 3 most recent administrations Medication Order MAR Action Action Date Dose Rate Site betamethasone acetate-betamethasone sodium phosphate 6 mg injection (CELESTONE) 6 mg, Injection - FOR ORTHO USE ONLY, ONE TIME INJECTION, 1 dose, Starting on 08/10/22 at 1045, Until 08/10/22 at 1045 Given 08/10/2022 10:45 AM EDT 6 mg Knee, Left betamethasone acetate-betamethasone sodium phosphate 6 mg injection (CELESTONE) 6 mg, Injection - FOR ORTHO USE ONLY, ONE TIME INJECTION, 1 dose, Starting on 08/10/22 at 1045, Until 08/10/22 at 1045 Given 08/10/2022 10:45 AM EDT 6 mg Knee, Right lidocaine (PF) 10 mg/mL (1 %) 4 mL injection (XYLOCAINE) 4 mL, Injection - FOR ORTHO USE ONLY, ONE TIME INJECTION, 1 dose, Starting on Wed08/10/22 at 1045, Until Wed08/10/22 at 1045 Given 08/10/2022 10:45 AM EDT 4 mL Knee, Left lidocaine (PF) 10 mg/mL (1 %) 4 mL injection (XYLOCAINE) 4 mL, Injection - FOR ORTHO USE ONLY, ONE TIME INJECTION, 1 dose, Starting on Wed08/10/22 at 1045, Until Wed08/10/22 at 1045 Given 08/10/2022 10:45 AM EDT 4 mL Knee, Right Inactive Administered Medications - up to 3 most recent administrations Medication Order MAR Action Action Date Dose Rate Site betamethasone acetate-betamethasone sodium phosphate 6 mg injection (CELESTONE) 6 mg, Injection - FOR ORTHO USE ONLY, ONE TIME INJECTION, 1 dose, Starting on [place] 11/12/22 at 1100, Until [place] 11/12/22 at 1100 Given 11/12/2022 11:00 AM EST 6 mg Knee, Left betamethasone acetate-betamethasone sodium phosphate 6 mg injection (CELESTONE) 6 mg, Injection - FOR ORTHO USE ONLY, ONE TIME INJECTION, 1 dose, Starting on [place] 11/12/22 at 1100, Until [place] 11/12/22 at 1100 Given 11/12/2022 11:00 AM EST 6 mg Knee, Right lidocaine (PF) 10 mg/mL (1 %) 4 mL injection (XYLOCAINE) 4 mL, Injection - FOR ORTHO USE ONLY, ONE TIME INJECTION, 1 dose, Starting on [place] 11/12/22 at 1100, Until [place] 11/12/22 at 1100 Given 11/12/2022 11:00 AM EST 4 mL Knee, Left lidocaine (PF) 10 mg/mL (1 %) 4 mL injection (XYLOCAINE) 4 mL, Injection - FOR ORTHO USE ONLY, ONE TIME INJECTION, 1 dose, Starting on [place] 11/12/22 at 1100, Until [place] 11/12/22 at 1100 Given 11/12/2022 11:00 AM EST 4 mL Knee, Right Inactive Administered Medications - up to 3 most recent administrations Medication Order MAR Action Action Date Dose Rate Site betamethasone acetate-betamethasone sodium phosphate 6 mg injection (CELESTONE) 6 mg, Injection - FOR ORTHO USE ONLY, ONE TIME INJECTION, 1 dose, Starting on Wed02/22/23 at 1054, Until Wed02/22/23 at 1054 Given 02/22/2023 10:54 AM EDT 6 mg Knee, Left betamethasone acetate-betamethasone sodium phosphate 6 mg injection (CELESTONE) 6 mg, Injection - FOR ORTHO USE ONLY, ONE TIME INJECTION, 1 dose, Starting on Wed02/22/23 at 1054, Until Wed02/22/23 at 1054 Given 02/22/2023 10:54 AM EDT 6 mg Knee, Right lidocaine (PF) 10 mg/mL (1 %) 4 mL injection (XYLOCAINE) 4 mL, Injection - FOR ORTHO USE ONLY, ONE TIME INJECTION, 1 dose, Starting on Wed02/22/23 at 1054, Until Wed02/22/23 at 1054 Given 02/22/2023 10:54 AM EDT 4 mL Knee, Left lidocaine (PF) 10 mg/mL (1 %) 4 mL injection (XYLOCAINE) 4 mL, Injection - FOR ORTHO USE ONLY, ONE TIME INJECTION, 1 dose, Starting on Wed02/22/23 at 1054, Until Wed02/22/23 at 1054 Given 02/22/2023 10:54 AM EDT 4 mL Knee, Right Inactive Administered Medications - up to 3 most recent administrations Medication Order MAR Action Action Date Dose Rate Site betamethasone acetate-betamethasone sodium phosphate 6 mg injection (CELESTONE) 6 mg, Injection - FOR ORTHO USE ONLY, ONCE, 1 dose, Starting on Wed08/30/23 at 1041, Until Wed08/30/23 at 1041 Given 08/30/2023 10:41 AM EDT 6 mg Knee , Left betamethasone acetate-betamethasone sodium phosphate 6 mg injection (CELESTONE) 6 mg, Injection - FOR ORTHO USE ONLY, ONCE, 1 dose, Starting on Wed08/30/23 at 1041, Until Wed08/30/23 at 1041 Given 08/30/2023 10:41 AM EDT 6 mg Knee , Right lidocaine (PF) 10 mg/mL (1 %) 4 mL injection (XYLOCAINE) 4 mL, Injection - FOR ORTHO USE ONLY, ONCE, 1 dose, Starting on 08/30/23 at 1041, Until 08/30/23 at 1041 Given 08/30/2023 10:41 AM EDT 4 mL Knee , Left lidocaine (PF) 10 mg/mL (1 %) 4 mL injection (XYLOCAINE) 4 mL, Injection - FOR ORTHO USE ONLY, ONCE, 1 dose, Starting on 08/30/23 at 1041, Until 08/30/23 at 1041 Given 08/30/2023 10:41 AM EDT 4 mL Knee , Right Additional Source Comments INFORMATION SOURCE (unrecogn ized section and content) DATE CREATED AUTHOR AUTHOR'S ORGANIZ ATION 07/04/2021 [facility] DATE CREATED AUTHOR AUTHOR'S ORGANIZ ATION 12/11/2023 [facility] Source Comments (unrecognize d section and content) In the event this informatio n is protected by the Federal Confidentiality of Alcohol and Drug Abuse Patient Records regulations: The Federal rules restrict any use of the information to criminally investigate or prosecute any alcohol or drug abuse patient.[facility] the event this information is protected by the Federal Confidentiality of Alcohol and Drug Abuse Patient Records regulations: The Federal rules restrict any use of the information to criminally investigate or prosecute any alcohol or drug abuse patient.[facility] the event this information is protected by the Federal Confidentiality of Alcohol and Drug Abuse Patient Records regulations: The Federal rules restrict any use of the information to criminally investigate or prosecute any alcohol or drug abuse patient.[facility] HospitalIn the event this information is protected by the Federal Confidentiality of Alcohol and Drug Abuse Patient Records regulations: The Federal rules restrict any use of the information to criminally investigate or prosecute any alcohol or drug abuse patient.[facility] HospitalIn the event this information is protected by the Federal Confidentiality of Alcohol and Drug Abuse Patient Records regulations: The Federal rules restrict any use of the information to criminally investigate or prosecute any alcohol or drug abuse patient.[facility] HospitalIn the event this information is protected by the Federal Confidentiality of Alcohol and Drug Abuse Patient Records regulations: The Federal rules restrict any use of the information to criminally investigate or prosecute any alcohol or drug abuse patient.[facility] HospitalIn the event this information is protected by the Federal Confidentiality of Alcohol and Drug Abuse Patient Records regulations: The Federal rules restrict any use of the information to criminally investigate or prosecute any alcohol or drug abuse patient.[facility] HospitalIn the event this information is protected by the Federal Confidentiality of Alcohol and Drug Abuse Patient Records regulations: The Federal rules restrict any use of the information to criminally investigate or prosecute any alcohol or drug abuse patient.[facility] HospitalIn the event this information is protected by the Federal Confidentiality of Alcohol and Drug Abuse Patient Records regulations: The Federal rules restrict any use of the information to criminally investigate or prosecute any alcohol or drug abuse patient.[facility] HospitalIn the event this information is protected by the Federal Confidentiality of Alcohol and Drug Abuse Patient Records regulations: The Federal rules restrict any use of the information to criminally investigate or prosecute any alcohol or drug abuse patient.[facility] HospitalIn the event this information is protected by the Federal Confidentiality of Alcohol and Drug Abuse Patient Records regulations: The Federal rules restrict any use of the information to criminally investigate or prosecute any alcohol or drug abuse patient.[facility] HospitalIn the event this information is protected by the Federal Confidentiality of Alcohol and Drug Abuse Patient Records regulations: The Federal rules restrict any use of the information to criminally investigate or prosecute any alcohol or drug abuse patient.[facility] HospitalIn the event this information is protected by the Federal Confidentiality of Alcohol and Drug Abuse Patient Records regulations: The Federal rules restrict any use of the information to criminally investigate or prosecute any alcohol or drug abuse patient.[facility] HospitalIn the event this information is protected by the Federal Confidentiality of Alcohol and Drug Abuse Patient Records regulations: The Federal rules restrict any use of the information to criminally investigate or prosecute any alcohol or drug abuse patient.[facility] HospitalIn the event this information is protected by the Federal Confidentiality of Alcohol and Drug Abuse Patient Records regulations: The Federal rules restrict any use of the information to criminally investigate or prosecute any alcohol or drug abuse patient.[facility] HospitalIn the event this information is protected by the Federal Confidentiality of Alcohol and Drug Abuse Patient Records regulations: The Federal rules restrict any use of the information to criminally investigate or prosecute any alcohol or drug abuse patient.[facility] HospitalIn the event this information is protected by the Federal Confidentiality of Alcohol and Drug Abuse Patient Records regulations: The Federal rules restrict any use of the information to criminally investigate or prosecute any alcohol or drug abuse patient.[facility] HospitalIn the event this information is protected by the Federal Confidentiality of Alcohol and Drug Abuse Patient Records regulations: The Federal rules restrict any use of the information to criminally investigate or prosecute any alcohol or drug abuse patient.[facility] HospitalIn the event this information is protected by the Federal Confidentiality of Alcohol and Drug Abuse Patient Records regulations: The Federal rules restrict any use of the information to criminally investigate or prosecute any alcohol or drug abuse patient.[facility] HospitalIn the event this information is protected by the Federal Confidentiality of Alcohol and Drug Abuse Patient Records regulations: The Federal rules restrict any use of the information to criminally investigate or prosecute any alcohol or drug abuse patient.[facility] HospitalIn the event this information is protected by the Federal Confidentiality of Alcohol and Drug Abuse Patient Records regulations: The Federal rules restrict any use of the information to criminally investigate or prosecute any alcohol or drug abuse patient.[facility] HospitalIn the event this information is protected by the Federal Confidentiality of Alcohol and Drug Abuse Patient Records regulations: The Federal rules restrict any use of the information to criminally investigate or prosecute any alcohol or drug abuse patient.[facility] HospitalIn the event this information is protected by the Federal Confidentiality of Alcohol and Drug Abuse Patient Records regulations: The Federal rules restrict any use of the information to criminally investigate or prosecute any alcohol or drug abuse patient.[facility] HospitalIn the event this information is protected by the Federal Confidentiality of Alcohol and Drug Abuse Patient Records regulations: The Federal rules restrict any use of the information to criminally investigate or prosecute any alcohol or drug abuse patient.[facility] HospitalIn the event this information is protected by the Federal Confidentiality of Alcohol and Drug Abuse Patient Records regulations: The Federal rules restrict any use of the information to criminally investigate or prosecute any alcohol or drug abuse patient.[facility] HospitalIn the event this information is protected by the Federal Confidentiality of Alcohol and Drug Abuse Patient Records regulations: The Federal rules restrict any use of the information to criminally investigate or prosecute any alcohol or drug abuse patient.[facility] HospitalIn the event this information is protected by the Federal Confidentiality of Alcohol and Drug Abuse Patient Records regulations: The Federal rules restrict any use of the information to criminally investigate or prosecute any alcohol or drug abuse patient.[facility] HospitalIn the event this information is protected by the Federal Confidentiality of Alcohol and Drug Abuse Patient Records regulations: The Federal rules restrict any use of the information to criminally investigate or prosecute any alcohol or drug abuse patient.[facility] HospitalIn the event this information is protected by the Federal Confidentiality of Alcohol and Drug Abuse Patient Records regulations: The Federal rules restrict any use of the information to criminally investigate or prosecute any alcohol or drug abuse patient.[facility] Reason for Visit (unrecogniz ed section and content) Reason Comments Results Reason Onset Date Comments Community [facility] Outreach 04/27/2022 Ins ight PCC Enrollment Reason Comments 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 visit 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 - wants injections Follow Up Reason Comments Recheck Reason Comments Established Patient Injections Reason Comments Recheck Lump in right breast Possible bladder infection Reason Comments Established Patient 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 inject ions Follow Up 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 inject ions Reason Onset Date Comments Refill Request 01/04/2023 Reason Comments Medicare Wellness Exam Reason Onset Date Comments Refill Request 01/25/2023 Reason Comments Follow Up 14 weeks 4 days post visit OA bilateral knees with injections given. Wants injections Reason Onset Date Comments Refill Request 04/08/2023 Reason Comments Follow Up 3 month Reason Comments Established Patient Pain Reason Onset Date Comments Refill Request 07/10/2023 Reason Comments 6 Month Exam Reason Comments Blood Pressure Check Reason Comments Injections Reason Onset Date Comments Refill Request 10/11/2023 Care Teams (unrecognized sec tion and content) Glass Beveler Relationship Specialty Start Date End Date Lane Rodriguez MD [address] [place] [address] PCP - General Family Practice 03/22/14 Glass Beveler Relationship Specialty Start Date End Date Lane Rodriguez MD [address] [place] [address] PCP - General Family Practice 03/22/14 Fernanda Armstrong RN [address] [place] [id number] Apprentice Plant Attendant 04/28/2204/09 Ester Vargas RN Apprentice Plant Attendant Family Practice 04/28/22 Glass Beveler Relationship Specialty Start Date End Date Lane Rodriguez MD [address] [place] [address] PCP - General Family Practice 03/22/14 Ester Vargas RN Apprentice Plant Attendant Family Practice 04/28/22 Glass Beveler Relationship Specialty Start Date End Date Lane Rodriguez MD [address] [place] [address] PCP - General Family Practice 03/22/14 Ester Vargas RN Apprentice Plant Attendant Family Practice 04/28/22 Glass Beveler Relationship Specialty Start Date End Date Lane Rodriguez MD [address] [facility] [address] PCP - General Family Medicine 03/22/14 Glass Beveler Relationship Specialty Start Date End Date Lane Rodriguez MD [address] [place] [address], [place] [address] PCP - General Family Medicine 03/22/14 Glass Beveler Relationship Specialty Start Date End Date Lane Rodriguez MD [address] [place] [address], [place] [address] PCP - General Family Medicine 03/22/14 Glass Beveler Relationship Specialty Start Date End Date Lane Rodriguez MD [address] [place] [address], [place] [address] PCP - General Family Medicine 03/22/14 Glass Beveler Relationship Specialty Start Date End Date Lane Rodriguez MD [address] [place] [address], [place] [address] PCP - General Family Medicine 03/22/14 Glass Beveler Relationship Specialty Start Date End Date Lane Rodriguez MD [address] [place] [address], [place] [address] PCP - General Family Medicine 03/22/14 Glass Beveler Relationship Specialty Start Date End Date Lane Rodriguez MD [address] [place] [address], [place] [address] PCP - General Family Medicine 03/22/14 Glass Beveler Relationship Specialty Start Date End Date Lane Rodriguez MD [address] [place] [address], [place] [address] PCP - General Family Medicine 03/22/14 Glass Beveler Relationship Specialty Start Date End Date Lane Rodriguez MD [address] [place] [address] PCP - General Family Medicine 03/22/14 Glass Beveler Relationship Specialty Start Date End Date Lane Rodriguez MD [address] [place] [address] PCP - General Family Medicine 03/22/14 Glass Beveler Relationship Specialty Start Date End Date Lane Rodriguez MD [address] [place] [address] PCP - General Family Medicine 03/22/14 Glass Beveler Relationship Specialty Start Date End Date Lane Rodriguez MD [address] [place] [address] PCP - General Family Medicine 03/22/14 Glass Beveler Relationship Specialty Start Date End Date Lane Rodriguez MD [address] [place] [address] PCP - General Family Medicine 03/22/14 Glass Beveler Relationship Specialty Start Date End Date Lane Rodriguez MD [address] [place] [address] PCP - General Family Medicine 03/22/14 Glass Beveler Relationship Specialty Start Date End Date Lane Rodriguez MD [address] [place] [address] PCP - General Family Medicine 03/22/14 Glass Beveler Relationship Specialty Start Date End Date Lane Rodriguez MD [address] [place] [address] PCP - General Family Medicine 03/22/14 Glass Beveler Relationship Specialty Start Date End Date Lnae Rodriguez MD [address] [place] [address] PCP - General Family Medicine 03/22/14 Glass Beveler Relationship Specialty Start Date End Date Lane Rodriguez MD [address] [place] [address] PCP - General Family Medicine 03/22/14 FOR RECORDS PERTAINING TO PATIENTS WHO ARE OR HAVE BEEN ENROLLED IN A CHEMICAL DEPENDENCY/SUBSTANCEABUSE PROGRAM, SOME INFORMATION MAY BE OMITTED. This clinical summary was aggregated from multiple sources. Caution should be exercised in using it in the provision of clinical care. This summary normalizes information from multiple sources, and as a consequence, information in this document may materially change the coding, format and clinical context of patient data. In addition, data may be omitted in some cases. CLINICAL DECISIONS SHOULD BE BASED ON THE PRIMARY CLINICAL RECORDS. [employer] provides no warranty or guarantee of the accuracy or completeness of information in this document.
--- NOTE | 2023-12-13 20:11 | CT_ITS ---
STUDY: CT BRAIN WITHOUT CONTRAST REASON FOR EXAM: Female, 83 years old. Dizzy RADIATION DOSAGE (If Supplied By Facility): CTDIvol = ( 44.99 ) mGy, DLP = ( 846.73 ) mGycm TECHNIQUE: Transaxial CT imaging of the brain was performed without administration of intravenous contrast material. Individualized dose optimization techniques were used for this CT. COMPARISON: No relevant priors. FINDINGS: Normal soft tissue structures. Normal calvarium. There is mild right mastoid fluid. There is left nasal fracture. There is moderate cerebral atrophy with widening of the extra-axial spaces and ventricular dilatation. There are areas of decreased attenuation within the white matter tracts of the supratentorial brain, consistent with microvascular disease changes. Normal basal ganglia and thalami. Normal brainstem. Normal cerebellum. There is no intracranial hemorrhage. There are no findings of an acute ischemic infarction. Normal visualized paranasal sinuses. CT/Brain/Head without Contrast IMPRESSION: Chronic involutional changes of the brain. Electronically Signed: Bob Gonzalez MD at 20:44 EST ,
--- NOTE | 2023-12-13 20:12 | RAD_ITS ---
STUDY: X-RAY CHEST REASON FOR EXAM: Female, 83 years old. Stroke TECHNIQUE: Single AP portable view of the chest. COMPARISON: May 12, 2023 FINDINGS: There are monitoring devices. The lungs are clear and expanded. There is no demonstrated pleural abnormality. Normal size heart. Normal mediastinum and fracisco. Normal visualized pulmonary arteries. There is atherosclerotic calcification of the aortic arch with tortuosity. There are diffuse degenerative changes of the visualized thoracic spine. Normal visualized ribs, clavicles, and shoulders. There is no demonstrated abnormality of the visualized soft tissue structures of the upper abdomen. RAD/Chest 1 View (Portable) IMPRESSION: Degenerative changes, as described above. No demonstrated acute cardiopulmonary process. Electronically Signed: Bob Gonzalez MD at 20:34 EST ,
[2023-12-13 21:02] LABS: Troponin-I HS 8 pg/mL (3.0-54.0)
[2023-12-13 21:08] VITALS: BP 123/53; PULSE 61; RESP 22; O2SAT 94; O2SAT 95
[2023-12-13 21:52] LABS: Color, Urine Yellow (Yellow); Glucose, Dipstick Normal (Normal); Ketone-Dipstick 5 mg/dl (Negative); Leukocyte Esterase-Dipstick 500 /ul (Negative); Nitrite-Dipstick Positive (Negative); Occult Blood-Urine 10 /ul (Negative); Protein-Dipstick 30 mg/dl (Negative); Specific Gravity, Urine 1.025 (1.002-1.030); Urine Bilirubin Dipstick Negative (Negative); Urine Clarity Sl. Cloudy (Clear); Urine Urobilinogen 4 mg/dl (Normal)
[2023-12-13 21:53] LABS: Mucous, Urine 0 SEEN /hpf (<or=2+)
[2023-12-13 22:04] LABS: Bacteria 3+ /hpf (None Seen); Red Blood Cells-Urine 0-5 SEEN /hpf (0-5); Squamous Epithelial Cells - UA 0-5 SEEN /hpf (5-10); White Blood Cells 25-50 SEEN /hpf (0-5)
[2023-12-13 22:05] VITALS: BP 137/56; PULSE 52; RESP 18; O2SAT 94
== END 2023-12-13 23:08 | disposition home or self-care (01) ==
PROVIDERS: Emergency Provider Emergency Medicine; PCP Family Medicine; Visit Provider Emergency Medicine
DX: R41.0 Disorientation, unspecified (principal); J43.9 Emphysema, unspecified; I50.32 Chronic diastolic (congestive) heart failure; I11.0 Hypertensive heart disease with heart failure; R42 Dizziness and giddiness; Z87.891 Personal history of nicotine dependence; Z22.359 Carrier of Enterobacterales, unspecified; I25.10 Atherosclerotic heart disease of native coronary artery without angina pectoris; E78.5 Hyperlipidemia, unspecified
CPT/HCPCS: 70450; 71045; 80048; 81001; 84484; 85025; 85610; 85730; 87077; 87086; 87088; 87186; 93005; 99284; A4216

== ENCOUNTER → 2024-01-18 | Outpatient (CLI) | payer MEDICARE, SELFPAY ==
[2021-12-05 11:03] VITALS: BMI 29.2
--- NOTE | 2024-01-18 09:46 | ECHOD_ITS ---
Reason For Study: Dyspnea/SOB Procedure This was a 2D Doppler, Color Flow transthoracic echocardiogram. Exam performed in department. Left Ventricle Normal LV size. Left ventricular systolic function is normal. The estimated ejection fraction is 65 %. No regional wall motion abnormalities noted. Right Ventricle Normal RV size. Normal systolic function. Atria Normal left atrium. Normal right atrium. Mitral Valve Normal mitral valve. Tricuspid Valve Normal tricuspid valve. Mild to moderate (1-2+) tricuspid valve insufficiency. Pulmonary artery systolic pressure is 44 mmHg. Aortic Valve Trisinus/trileaflet aortic valve. Mild (1+) eccentric aortic valve insufficiency. Pulmonic Valve Normal pulmonic valve. Great Vessels Normal aortic root. The pulmonary artery is normal size. Normal inferior vena cava. Pericardium/Pleural No pericardial effusion. MMode/2D Measurements & Calculations LVIDd: 5.0 cm IVSd: 1.0 cm Ao root diam: 3.1 cm LVIDs: 3.1 cm LVPWd: 1.1 cm LA dimension: 3.4 cm RVDd: 3.6 cm FS: 37.6 % LAV(MOD-bp): 63.6 ml LA A4 area: 19.9 cm2 RA A4 area: 18.0 cm2 LAV(MOD-bp) Indexed: 34.6 ml/m2 LAV(MOD-sp2): 69.1 ml LAV(MOD-sp4): 56.7 ml TAPSE: 2.3 cm Time Measurements MV dec time: 0.22 sec Doppler Measurements & Calculations MV E max momo: 84.2 cm/sec Lat Peak E' Momo: 6.0 cm/sec Med Peak E' Momo: 7.6 cm/sec MV A max momo: 71.8 cm/sec E/E' lat: 14.0 E/E' med: 11.1 MV E/A: 1.2 MV V2 max: 107.1 cm/sec MV P1/2t max momo: 108.1 cm/sec Ao V2 max: 146.4 cm/sec MV max P.6 mmHg MV P1/2t: 71.0 msec Ao max P.6 mmHg MV V2 mean: 42.5 cm/sec MV mean P.92 mmHg MV dec slope: 446.3 cm/sec2 MV V2 VTI: 32.3 cm MVA(P1/2t): 3.1 cm2 AI max momo: 359.1 cm/sec LV V1 max: 84.6 cm/sec MR max momo: 514.2 cm/sec AI max P.6 mmHg LV V1 max P.9 mmHg MR max P.8 mmHg AI dec slope: 210.1 cm/sec2 AI P1/2t: 500.6 msec PA V2 max: 71.0 cm/sec PI end-d momo: 111.2 cm/sec TR max momo: 319.4 cm/sec TR max P.8 mmHg ECHO/Echo Complete Interpretation Summary Normal LV size. Left ventricular systolic function is normal. Mild (1+) eccentric aortic valve insufficiency. Pulmonary artery systolic pressure is 44 mmHg. The estimated ejection fraction is 65 %. Ordering Physician: Kelly Alba Referring Physician: Kelly Alba Performed By: Hosea Villalta RCS
== END | disposition home or self-care (01) ==
PROVIDERS: PCP Family Medicine; Referring Provider Nurse Practitioner Acute Care; Visit Provider Nurse Practitioner Acute Care
DX: R06.02 Shortness of breath (principal)
CPT/HCPCS: 93306

== ENCOUNTER → 2025-01-16 | Outpatient (CLI) | payer MEDICARE, SELFPAY ==
[2021-12-05 11:03] VITALS: BMI 29.2
--- NOTE | 2025-01-16 08:21 | RAD_ITS ---
PROCEDURE: UPPER GI W/BA SWALLOW REASON FOR EXAM: DYSPHAGIA TECHNIQUE: FLUOROSCOPIC TIME: 1 minute and 7 seconds minutes FLUOROGRAPHIC IMAGES: 34 COMPARISON: None. FINDINGS: The patient ingested barium. Multiple images of the esophagus, stomach and duodenum were obtained. The esophagus is unremarkable. No evidence of obstruction. No mass lesion is seen. The patient ingested a 12 mm tablet the barium without any difficulty. The stomach and duodenum are unremarkable. No evidence of gastroesophageal reflux. No mass lesion is seen. Atherosclerotic plaque formation of the aortic arch. Degenerative changes of the visualized dorsal spine. RAD/Upper GI w/BA Swallow IMPRESSION: Unremarkable esophagram and upper GI series. Reading Location: [facility]
== END | disposition home or self-care (01) ==
PROVIDERS: PCP Family Medicine; Referring Provider Family Medicine; Visit Provider Family Medicine
DX: R13.10 Dysphagia, unspecified (principal)
CPT/HCPCS: 74246

== ENCOUNTER → 2025-01-24 | Outpatient (CLI) | payer MEDICARE, SELFPAY ==
[2021-12-05 11:03] VITALS: BMI 29.2
--- NOTE | 2025-01-24 18:04 | STRESSREP ---
Stress Test Report Pharmacologic myocardial perfusion stress test. 84-year-old with a history of shortness of breath Resting EKG demonstrates sinus bradycardia with a rate of 59 bpm. Resting blood pressure is 166/82 mmHg. 0.4 mg of regadenoson was infused per usual protocol followed by rapid intravenous saline flush injection. Continuous EKG monitoring was performed. The maximum heart rate was 100 bpm which was 72% of max impacted heart rate the maximum workload was 1 metabolic equivalent. At rest there were no ST or T wave changes noted to suggest ischemia and at peak infusion nonspecific ST changes were noted which did not meet the criteria for ischemia. No clinical angina is noted. The final blood pressure was 168/68 mmHg. Myocardial perfusion protocol. 11 mCi of technetium 99m sestamibi was injected at rest. 0.4 mg of regadenoson was infused per usual protocol. At peak infusion 33.6 mCi of technetium 99m sestamibi was injected stress images were obtained stress and rest images were reconstructed and compared in the short axis vertical long and horizontal long axis. Gated images were also obtained. Perfusion SPECT analysis: Review of the stress images demonstrate normal uptake of tracer noted in all areas of the myocardium. The resting images similar demonstrated normal uptake of tracer noted in all areas of the myocardium. No areas of reversibility are noted to suggest ischemia and no previous infarct is noted. Gated SPECT analysis: The gated ejection fraction is 71%. Conclusion: Normal pharmacologic myocardial perfusion stress test. Preserved ejection fraction.
== END | disposition home or self-care (01) ==
PROVIDERS: PCP Family Medicine; Referring Provider Family Medicine; Visit Provider Family Medicine
DX: R06.09 Other forms of dyspnea (principal); R53.83 Other fatigue; I25.10 Atherosclerotic heart disease of native coronary artery without angina pectoris; I25.83 Coronary atherosclerosis due to lipid rich plaque
CPT/HCPCS: 78452; 93017; A9500; J2785

== ENCOUNTER → 2025-02-01 | Outpatient (CLI) | payer MEDICARE, SELFPAY ==
[2021-12-05 11:03] VITALS: BMI 29.2
[2025-02-01 11:30] LABS: Absolute Lymphocyte Count 1.72 X10^3/uL (0.83-4.51); Absolute Neutrophil Count 7.9 X10^3/uL (2.0-7.7); Basophil# 0.07 X10^3/uL; Basophil% 0.6 % (0-1); Eosinophil# 0.34 X10^3/uL; Eosinophils% 3.1 % (0-5); Hematocrit 39.4 % (37-47); Hemoglobin 12.5 g/dL (12.0-15.0); Lymphocyte # 1.72 X10^3/ul (0.83-4.51); Lymphocyte % 15.9 % (19-41); Mean Corp Hgb Conc 31.7 g/dL (32-36); Mean Corpuscular Hgb 28.2 pg (27.0-32.0); Mean Corpuscular Volume 88.9 fL (81-99); Mean Platelet Vol. 10.7 fl (6.2-12.0); Monocyte# 0.74 X10^3/uL; Monocyte% 6.8 % (0-10); NRBC Flagged by Analyzer 0 % (0-5); Neutrophil # 7.94 X10^3/uL (2.7-7.7); Neutrophil % 73.3 % (47-70); Platelet Count 298 K/mm3 (150-450); RBC Distribution Width CV 14.6 % (11.6-14.6); Red Blood Count 4.43 M/mm3 (4.2-5.4); White Blood Count 10.8 K/mm3 (4.4-11.0)
[2025-02-01 12:38] LABS: Pro- Brain NATRIURETIC PEPTIDE 1039 pg/mL (<=1800)
[2025-02-01 13:00] LABS: Anion Gap 10 (5-15); BUN 17 mg/dL (4-19); BUN/Creat Ratio 15.4 RATIO (10-20); Calcium,Total 8.2 mg/dL (7.6-11.0); Carbon Dioxide 26.3 mmol/L (21.0-32.0); Chloride 103 mmol/L (98-108); Creatinine, Serum 1.12 mg/dL (0.70-1.20); EST Glomerular Filtration Rate 49 (>60); Glucose 62 mg/dL (70-99); Potassium 4.7 mmol/L (3.3-5.1); Sodium Level 139 mmol/L (133-145)
== END | disposition home or self-care (01) ==
LOC: LAB 11:05
PROVIDERS: PCP Family Medicine; Referring Provider Internal Medicine Cardiovascular Disease; Visit Provider Internal Medicine Cardiovascular Disease
DX: I11.0 Hypertensive heart disease with heart failure (principal); I50.32 Chronic diastolic (congestive) heart failure; R06.00 Dyspnea, unspecified; R53.83 Other fatigue; I25.10 Atherosclerotic heart disease of native coronary artery without angina pectoris; I25.2 Old myocardial infarction; Z95.5 Presence of coronary angioplasty implant and graft
CPT/HCPCS: 36415; 80048; 83880; 85025

== ENCOUNTER 2025-05-26 10:11 | Emergency (ER) | payer MEDICARE, SELFPAY ==
[2021-12-05 11:03] VITALS: BMI 29.2
[2025-05-26] VITALS (10 sets, daily range): BP systolic 119–142; BP diastolic 51–78; PULSE 74–96; RESP 16–22; TEMP 36.4–36.7; O2SAT 95–99; BMI 34.5
--- NOTE | 2025-05-26 10:50 | EDS_ITS ---
HPI History of Present Illness Chief Complaint: Chest Pain Informant: patient and family Narrative Narrative: Here with daughter reporting 3-month history dyspnea worse with exertion. States cannot breathe. History of coronary disease. Last stenting 5 years ago currently followed by Dr. Rasmussen. She is on aspirin therapy. She reports has had recent stress test pharmacological negative. Echocardiogram. Follow-up with cardiology 2 months ago and medication adjustments metoprolol decreased with amlodipine increased. Blood pressure has been controlled however symptoms has not improved. She is seeing her PCP. She describes calcium scoring test that was done and was told she has been followed by cardiology. They were told to follow-up with the [facility] automotive design drafter however appointment is not till June 11. Symptoms worsened today. Denies recent travel surgeries or immobilizations. No history of PE or DVT. Remote tobacco. Hypertension hyperlipidemia denies diabetes. Prior similar symptoms: Yes PFSH PFS Medical History Trigger middle finger of left hand Tobacco abuse Personal history of colonic polyps Osteoarthritis Heart attack Graves disease COPD (chronic obstructive pulmonary disease) CAD (coronary artery disease) Left ventricular diastolic dysfunction Chronic diastolic (congestive) heart failure Nicotine dependence Atherosclerosis of coronary artery of [place] heart without angina pectoris History of non-ST elevation myocardial infarction (NSTEMI) (12/21/19) Vertigo Essential hypertension Hypothyroidism Anxiety and depression MATT (obstructive sleep apnea) Obesity HLD (hyperlipidemia) Home Medications ?Medication ?Instructions ?Recorded ?Last Taken ?Type aspirin 81 mg chewable tablet 81 mg PO DAILY@0800 hear t health 05/07/20 05/06/20 History rosuvastatin 5 mg tablet 5 mg PO DAILY cholesterol 05/06/20 History omeprazole 40 mg capsule,delayed 40 mg PO BID 01/29/22 Unknown History release albuterol sulfate 90 mcg/actuation 2 puff inhalation Q 4H #8.5 grams 05/15/22 Unknown Rx aerosol inhaler celecoxib 200 mg capsule (Celebrex) 200 mg PO BID 01/06 03/31 Unknown History levothyroxine 125 mcg tablet 137 mcg PO DAILY 01/21/24 Unknown History amlodipine 10 mg tablet 5 mg (1/2 x 10 mg) PO DAILY #90 03/22/25 Unknown Rx tabs duloxetine 30 mg capsule,delayed 30 mg PO QDAY 5 Unknown History release metoprolol succinate 50 mg 50 mg PO DAILY heart #90 ta bs 03/22/25 Unknown Rx tablet,extended release 24 hr tramadol 50 mg tablet 50 mg PO Q12H Pain Score 1-1 0 03/22/25 Unknown History valsartan 320 mg tablet 320 mg PO QDAY 03/22/25 Unkn own History cefdinir 300 mg capsule 300 mg PO Q12H #14 caps 05/08 08/02 Unknown Rx Allergy/AdvReac Type Severity Reaction Status Date / Time iodine Allergy Severe Angioedema Verified 05/26/25 10:46 guaifenesin (From Mucinex) Allergy Mild Other Verified 05/26/25 10:46 ticagrelor (From Brilinta) AdvReac Severe Shortness Verified 05/26/25 10:46 of breath varenicline (From Chantix) AdvReac Severe Other Verified 05/26/25 10:46 Family History Father CAD (coronary artery disease) Prostate cancer Brother Alzheimer's disease Daughter Breast cancer Daughter Breast cancer Surgical History History of coronary artery stent placement (12/21/19) Social History Smoking Status: Former smoker Tobacco: How many years used: 45 Electronic Cigarette Use: with nicotine and not used how long ago did patient quit smokin10/2023 second hand exposure: No alcohol intake: current alcohol intake frequency: a few times a week substance use type: does not use ROS ROS ED Constitutional Constitutional ED: Denies chills, fever(s) or sweats ENT ENT ED: Denies sore throat Cardiovascular Cardiovascular: Reports chest pain; Denies leg edema, palpitations or racing heartbeat Respiratory/Chest Respiratory/Chest: Reports dyspnea and dyspnea on exertion; Denies cough Gastrointestinal Gastrointestinal: Denies abdominal pain, diarrhea, nausea or vomiting Genitourinary Genitourinary ED: Denies dysuria, hematuria or urinary frequency Musculoskeletal Musculoskeletal: Denies back pain, extremity pain or neck pain Integumentary Denies rash or wounds Neurologic Neurologic: Denies headache(s), paresthesias or weakness EXAM Physical Exam Const Vital Signs: 05/26/25 10:12 05/26/25 10:41 05/26/25 10:46 Temperature 98.1 F Temperature Source Temporal Pulse Rate 96 Respiratory Rate 22 H Respiratory Effort Short of Breath Respiratory Depth Respiratory Pattern Blood Pressure 125/67 H Blood Pressure Mean 86 Pulse Ox 98 98 Oxygen Delivery Method Room Air Nasal Cannula Oxygen Flow Rate (L/min) 2 05/26/25 11:02 05/26/25 11:36 05/26/25 12:13 Temperature Temperature Source Pulse Rate 83 87 Respiratory Rate 16 16 Respiratory Effort Short of Breath Respiratory Depth Normal Respiratory Pattern Normal Blood Pressure 141/51 H 119/72 Blood Pressure Mean 81 87 Pulse Ox 98 97 Oxygen Delivery Method Room Air Nasal Cannula Room Air Oxygen Flow Rate (L/min) 2 05/26/25 13:00 05/26/25 14:32 05/26/25 15:00 Temperature Temperature Source Pulse Rate 80 74 79 Respiratory Rate 20 H 18 18 Respiratory Effort Respiratory Depth Respiratory Pattern Blood Pressure 125/51 H 142/55 H 139/53 H Blood Pressure Mean 75 84 81 Pulse Ox 97 95 98 Oxygen Delivery Method Nasal Cannula Oxygen Flow Rate (L/min) 2 05/26/25 16:00 05/26/25 16:31 Temperature 97.6 F L Temperature Source Pulse Rate 80 80 Respiratory Rate 18 Respiratory Effort Respiratory Depth Respiratory Pattern Blood Pressure 120/78 120/78 Blood Pressure Mean 92 92 Pulse Ox 99 99 Oxygen Delivery Method Oxygen Flow Rate (L/min) Positive well nourished and well developed Constitutional Narrative: Placed on nasal cannula for comfort by nursing. General Appearance ED: well developed and NAD HEENT Reports moist mucous membranes normocephalic and atraumatic Eyes General Eye ED: Yes normal appearance of both eyes Neck full ROM Chest Wall Chest: Negative for tenderness Resp normal respiratory effort and normal air movement Effort and Inspection: symmetric chest movement; Negative for respiratory distress Cardio regular rate, regular rhythm and no murmurs Peripheral Pulses: pulses 2+ throughout GI normal to inspection, nondistended, normoactive bowel sounds and non-tender Palpation: Negative for guarding or rebound tenderness present Extremity normal to inspection General Extremety ED: Negative for edema or tenderness General Extremity: Negative for edema Neuro oriented x3 and no sensory deficits noted Sensorium / Orientation: awake and alert Skin no rashes or lesions noted and no wounds MDM MDM MDM Narrative Medical decision making narrative: Interventions / MDM: Differential diagnosis: Exertional dyspnea, history of coronary disease, urinary tract infection Diagnosis considered but do not suspect: N/A My EKG interpretation: Sinus rate of 76, no ST or T wave changes QTc 420. Imaging independently reviewed and interpreted by myself: CT angiogram chest: External documents reviewed: Stress test January 2025 negative. Echocardiogram normal EF also January. Reviewed cardiology notes previous RCA stent from initial heart attack 2019 had a left circumflex 95% lesion that was stented. 30% lesions of proximal mid LAD from heart cath in 2019. Test considered but not ordered:N/A ED course: Patient exertional dyspnea chest tightness coronary disease history. Denies cough or concerns for infectious. Normal breath sounds bilaterally. EKG sinus rhythm no acute findings. Cardiac workup initiated, D-dimer secondary to exertional dyspnea. She was not hypoxic she was placed on oxygen for comfort per nursing she was 96% on room air. 1200: Initial troponin negative. Symptom free currently at rest. D-dimer elevated at 1.2. Reviewed patient allergies of iodine noting angioedema I discussed this with patient and daughter. They are at primary care office had a discussion with this they were thinking it was spelled wrong noting Lodine was the allergy to the NSAID. However they have not fully clarified this. With this noted however we will prep her for CT angiogram with steroids Benadryl for an hour prior to imaging. I did discuss with imaging department the plan. 1424: Noted white count 18.2 urine was added returning positive for nitrites leukocytes WBCs with bacteria. Urine culture sent. she will be covered with Rocephin. Repeat troponin negative also. Awaiting results of CT angiogram of the chest. 1530: CT chest negative for PE. Ambulated pulse ox maintained 95% per nursing did report shortness of breath improved with rest. 1620: I spoke with on-call automotive design drafter Dr. Damon, discussed patient's history and findings. No admission needed at this time however she is to call the office on Wednesday for evaluation outpatient for further testing. Diagnostic cath will need to be discussed with her automotive design drafter. I discussed tricked return precautions. Antibiotics will be printed per her request so daughter can fill so she can continue to treat for her urinary tract infection. All questions were answered. Re-evaluation: stable Disposition discussed with patient/family/significant other: Patient and family Case discussed with consulting clinician: Cardiology This note was generated with Dragon dictation software. It may contain incorrect words, spelling, and punctuation that were not noted in checking the note before signing. Lab Data Attestation: I reviewed the patient's lab results. Labs: Laboratory Results - last 24 hr 05/26/25 05/26/25 05/26/25 10:21 12:35 13:48 WBC 18.2 H RBC 5.16 Hgb 14.3 Hct 43.4 MCV 84.1 MCH 27.7 MCHC 32.9 RDW Std Deviation 45.1 H RDW Coeff of Kal 14.7 H Plt Count 286 MPV 10.9 Immature Gran % (Auto) 0.500 Neut % (Auto) 79.9 H Lymph % (Auto) 8.8 L Dyer % (Auto) 10.3 H Eos % (Auto) 0.3 Baso % (Auto) 0.2 Absolute Neuts (auto) 14.5 H Absolute Lymphs (auto) 1.60 Nucleated RBC % 0 Platelet Estimate A D-Dimer Quant (PE/DVT) 1.20 H* Sodium 133 Potassium 4.7 Chloride 98 Carbon Dioxide 20.7 L Anion Gap 15 BUN 24 H Creatinine 1.22 H Estim Creat Clear Calc 38.27 L Est GFR (MDRD) Non-Af 44 L BUN/Creatinine Ratio 19.7 Glucose 96 Calcium 9.1 Troponin T High Sens 10 Troponin T Hi Sens 2 Hr 10 Urine Color Yellow Urine Clarity Sl. Cloudy Urine pH 7.0 Ur Specific [place] 1.005 Urine Protein 100 H Urine Glucose (UA) Normal Urine Ketones Negative Urine Occult Blood 50 H Urine Nitrite Positive H Urine Bilirubin Negative Urine Urobilinogen 1 H Ur Leukocyte Esterase 100 H Urine RBC 5-10 SEEN Urine WBC 25-50 SEEN Ur Squamous Epith Cells 0-5 SEEN Urine Bacteria 2+ Urine Mucus 0 SEEN Radiography Diagnostic Testing: Clinical Impression(s) from Imaging Studies Chest CTA 05/26/25 12:59 IMPRESSION: No evidence of pulmonary embolus. Atelectasis versus parenchymal scarring lung bases bilaterally. Arteriosclerotic vascular disease of the aorta. Reading Location: [facility] Discharge Plan Triage Chief Complaint: Chest Pain Other Complaint: Shortness of Breath ED Provider: Mynor Emery Dx/Rx/DC Orders Clinical Impression: Chest pain, History of coronary artery stent placement, Acute UTI Instructions: Urinary Tract Infections in Women, ED Chest Pain, Uncertain Cause Prescriptions: New cefdinir 300 mg capsule 300 mg PO Q12H Qty: 14 0RF No Action omeprazole 40 mg capsule,delayed release(DR/EC) 40 mg PO BID levothyroxine 125 mcg tablet 137 mcg PO DAILY celecoxib [Celebrex] 200 mg capsule 200 mg PO BID duloxetine 30 mg capsule,delayed release(DR/EC) 30 mg PO QDAY valsartan 320 mg tablet 320 mg PO QDAY amlodipine 10 mg tablet 5 mg PO DAILY Qty: 90 3RF metoprolol succinate 50 mg tablet extended release 24 hr 50 mg PO DAILY Qty: 90 3RF aspirin 81 MG tablet,chewable 81 mg PO DAILY@0800 rosuvastatin 5 MG tablet 5 mg PO DAILY tramadol 50 mg tablet 50 mg PO Q12H albuterol sulfate 90 mcg/actuation HFA aerosol inhaler 2 puff inhalation Q4H Qty: 8.5 11RF Primary Care Provider: Max Jordan Referrals: Emmett Rasmussen MD [Med Staff - Active Staff] - 2 Days Max Jordan MD [Primary Care Provider] - Activity Restrictions/Additional Instructions: Cardiac workup negative. CT angiogram chest negative for PE. Discussed with cardio Dr. Damon, call Wednesday to follow-up with Dr. Rasmussen for evaluation further testing. Print Language: Irish Disposition Disposition: Home, Self Care Discharge Date/Time: 05/26/25 16:43
[2025-05-26 11:08] LABS: Hematocrit 43.4 % (37-47); Hemoglobin 14.3 g/dL (12.0-15.0); Immature Granulocytes Count 0.100 X10^3/uL (0.0-0.0); Mean Corp Hgb Conc 32.9 g/dL (32-36); Mean Corpuscular Volume 84.1 fL (81-99); Mean Platelet Vol. 10.9 fl (6.2-12.0); NRBC Flagged by Analyzer 0 % (0-5); POSITIVE DIFFERENTIAL YES; Platelet Count 286 K/mm3 (150-450); RBC Distribution Width CV 14.7 % (11.6-14.6); RBC Distribution Width SD 45.1 fl (35.1-43.9); Red Blood Count 5.16 M/mm3 (4.2-5.4); White Blood Count 18.2 K/mm3 (4.4-11.0)
--- OUTSIDE RECORDS SUMMARY | 2025-05-26 11:08 | XMS RPT_ITS | CCD ---
Author Organization [facility] Care Team Providers Care Speaking Unit Assembler Name Role Phone Max Rodriguez Referring Unavailable Max Rodriguez Primary Care Unavailable Max Rodriguez MD Primary Care Provider Dr. Max Rodriguez Primary Care Provider Dr. Kelby Nicholas Attending Provider Dr. Kelby Nicholas Referring Provider Dr. Kelby Nicholas Other Provider Dr. Perry Haines Attending Provider Nathaniel RN, Fernanda Yanez Unavailable [phone] Sam RN, Ester Jay Unavailable Max Rodriguez MD Primary Care Provider [phone] Sam MANCINI, Ester Jay Unavailable Max Rodriguez MD Primary Care Provider [phone] Max Rodriguez MD Primary Care Provider Dr. Max Rodriguez Primary Care Provider Dr. Max Rodriguez Referring Provider [phone] Anjali INGOT CAR OPERATOR, INGOT CAR OPERATOR-C Kelly Attending Provider Dr. Emmett Rasmussen Attending Provider Kvng INGOT CAR OPERATOR, INGOT CAR OPERATOR-C Concetta Attending Provider Max Rodriguez MD Primary Care Provider [phone] Max Rodriguez MD Primary Care Provider Max Rodriguez MD Primary Care Provider LOUISA CHRISTOPHER Attending Unavailable MAX RODRIGUEZ Referring Unavailabl e JENNIFER, MAX NOVAK Referring Unavailabl e JENNIFER, MAX NOVAK Referring Unavailabl e JENNIFER, MAX NOVAK Referring Unavailabl e JENNIFER, MAX NOVAK Referring Unavailabl e JENNIFER, MAX NOVAK Referring Unavailabl e JENNIFER, MAX NOVAK Referring Unavailabl e JENNIFER, [facility] Primary Care Unavailabl e JOSHUA, STEPHAN Kennedy Attending Unavailable JENNIFER, MAX NOVAK Primary Care Unavailabl e JENNIFER, MAX NOVAK Referring Unavailabl e JENNIFER, MAX [place] Primary Care Unavailabl e JENNIFER, MAX NOVAK Referring [facility]availabl e [facility] Care Unavailabl e JENNIFER, MAX NOVAK Referring Unavailabl e JENNIFER, MAX SCARLET Primary Care Unavailabl e JENNIFER, MAX NOVAK Referring Unavailabl e JENNIFER, MAX SCARLET Primary Care Unavailabl e JENNIFER, MAX NOVAK Referring Unavailabl e JENNIFER, MAX SCARLET Primary Care Unavailabl e JENNIFER, MAX NOVAK Referring Unavailabl e JENNIFER, MAX SCARLET Primary Care Unavailabl e JENNIFER, MAX NOVAK Referring Unavailabl e [facility] Primary Care Unavailabl e JENNIFER, MAX NOVAK Referring Unavailabl e JENNIFER, [facility] Primary Care Unavailabl e SHAMIKA CATES Attending Unavailable MAX RODRIGUEZ Referring Unavailabl e JENNIFER, MAX SCARLET Primary Care Unavailabl e Knoble INSPECTOR MACHINED PARTS.TOY STUFFER, Nicole Unavailable J Carlos BANUELOS, Dora Unavailable Dr. Max Rodriguez MD Primary Care Provider Dr. Max Rodriguez MD Attending Provider Dr. Max Rodriguez MD Referring Provider Dr. Max Rodriguez MD Other Provider Grady US, Dr. Christine Attending Provider Grady US, Dr. Christine Referring Provider PAPI BELTRAN Referring Unavailabl e MAX RODRIGUEZ Primary Care Unavailable Max Rodriguez Primary Care Unavailable Emmett Rasmussen Attending Unavailable Emmett Rasmussen Referring Unavailable Jennifer, Max Primary Care Unavailable Jennifer, Max Attending Unavailable Jennifer, Max Referring Unavailable Jennifer, Max Primary Care Unavailable Jennifer, Max Attending Unavailable Jennifer, Max Referring Unavailable Jennifer, Max Primary Care Unavailable Emmett Rasmussen Attending Unavailable Jennifer, Max Referring Unavailable Jennifer, Max Primary Care Unavailable Emmett Rasmussen Attending Unavailable Jennifer, Max Consulting Unavailable Jennifer, Max Referring Unavailable Jennifer US, Max [place] Primary Care Provider Daniel Garcia Attending Unavailable Daniel Garcia Referring Unavailable Daniel Garcia Attending Unavailable Daniel Garcia Referring Unavailable Daniel Garcia MD Unavailable Unavailable Max Rodriguez MD Primary Care Provider Sandhya INSPECTOR MACHINED PARTS.TOY STUFFER, Nicole Unavailable Dora Whitman PA-C Unavailable Sandhya INSPECTOR MACHINED PARTS.TOY STUFFER, Nicole Unavailable J Carlos BANUELOS Dora Unavailable JENNIFER, MAX A Attending Unavailable JENNIFER, MAX A Primary Care Unavailable JENNIFER, MAX A Referring Unavailable JENNIFER, MAX A Primary Care Unavailable JENNIFER, MAX A Attending Unavailable JENNIFER, MAX A Primary Care Unavailable JENNIFER, MAX A Referring Unavailable JENNIFER, MAX A Primary Care Unavailable JENNIFER, MAX A Referring Unavailable JENNIFER, MAX A Primary Care Unavailable JENNIFER, MAX A Referring Unavailable JENNIFER, MAX A Primary Care Unavailable JENNIFER, MAX A Referring Unavailable JENNIFER, MAX A Primary Care Unavailable ANGELA HIANES Attending Unavailable JENNIFER, MAX A Referring Unavailable JENNIFER, MAX A Primary Care Unavailable JENNIFER, MAX A Attending Unavailable JENNIFER, MAX A Primary Care Unavailable PAPI BELTRAN Attending Unavail able PAPI BELTRAN Referring Unavailabl e JENNIFER, MAX A Primary Care Unavailable NICOLE ZHANG Attending Unavailable JENNIFER, MAX A Primary Care Unavailable JENNIFER, MAX A Attending Unavailable JENNIFER, MAX A Primary Care Unavailable JENNIFER, MAX A Referring Unavailable JENNIFER, MAX A Primary Care Unavailable JENNIFER, MAX A Attending Unavailable JENNIFER, MAX A Primary Care Unavailable MAX RODRIGUEZ Attending Unavailable MAX RODRIGUEZ Primary Care Unavailable Allergies Allergy Classification Reported Allergen(s) Allergy Type Date of Onset Reaction(s) Facility guaiFENesin (1 source) guaiFENesin Drug Allergy 7 Mental Status Change [facility] HMG-CoA Reductase Inhibitors (statins) (2 sources) atorvastatin Drug Allergy 7 Other: See Comments [facility] Iodine (and Iodine containting drugs) (1 source) Iodine Drug Allergy 0 Anaphylaxis [facility] tiZANidine (1 source) tiZANidine Drug Allergy 6 Other: See Comments [facility] varenicline (1 source) varenicline Drug Allergy 4 Other: See Comments [facility] (20 sources) Angiotensin Converting Enzyme (Mary) Inhibitors; Translations: [MARY INHIBITORS] Propensity to adverse reactions (disorder) 7 Cough [facility] Repository (20 sources) atorvastatin; Translations: [ATORVASTATIN CALCIUM] Drug Allergy 7 Other: See Comments, Other [facility] Repository (20 sources) guaiFENesin; Translations: [GUAIFENESIN] Drug Allergy 7 Mental Status Change, Hallucinations , Other [facility] Repository Comment on above: dizzy (20 sources) Iodine; Translations: [IODINE] Drug Allergy 0 Anaphylaxis, Angioedema, Hives [facility] Repository (20 sources) Pravastatin; Translations: [PRAVASTATIN SODIUM] Drug Allergy 7 Other: See Comments, Other [facility] Repository (20 sources) tiZANidine; Translations: [TIZANIDINE] Drug Allergy 6 Other: See Comments, Other [facility] Repository (20 sources) varenicline; Translations: [VARENICLINE] Drug Allergy 4 Other: See Comments, Other [facility] Repository Comment on above: homicidal (20 sources) Thiazides; Translations: [THIAZIDES] Drug Intolerance 2 Other: See Comments [facility] Work Phone: (11 sources) Ticagrelor; Translations: [TICAGRELOR] Drug Allergy 0 Shortness of breath [facility] (20 sources) Thiazides Drug Intolerance 2 Other: See Comments, Other [facility] Work Phone: (1 source) ALLERGIES NOT ON FILE; Translations: [ALLERGIES NOT ON FILE] Propensity to adverse reactions (disorder) [facility] 2 Repository (1 source) Ticagrelor Drug Allergy 5 [facility] Repository (5 sources) Thiazides Drug Intolerance 2 Other: See Comments [facility] Medications Current Medications Medication Drug Class(es) Dates Sig (Normalized) Sig (Original) [id number] 200 actuat albuterol 0.09 mg/actuat metered dose inhaler (20 sources) beta2-Adrenergic Agonist Start: 11-27-2024 take 2 puff(s) by inhalation every four hours as needed albuterol HFA (PROVENTIL HFA, VENTOLIN HFA) 90 mcg/actuation inhaler Inhale 2 Puffs as instructed every 4 hours as needed. 18 g 1 11/27/2024 Active Start: 01-28-2022 take 1 puff(s) by in halation every four hours Albuterol Sulfate Active 2 PUFF INHALATION Q4H January 28, 2022 2:02pm Start: 01-28-2022 End: 05-15-2022 Albuterol Sulfate 90 mcg/act uation HFA aerosol inhaler Discontinued 2 NMA INHALATION Q4H 8.5 May 01, 2022 10:23am May 15, 2022 3:23pm Start: 01-28-2022 End: 05-15-2022 take 1 puff(s) by inhalation every four hours Albuterol Sulfate Discontinued 2 PUFF INHALATION Q4H 8.5 May 01, 2022 10:23am May 15, 2022 3:23pm Start: 02-19-2021 End: 11-25-2024 take 2 puff(s) by inhalation every four hours as needed albuterol HFA (PROVENTIL HFA, VENTOLIN HFA) 90 mcg/actuation inhaler Inhale 2 Puffs as instructed every 4 hours as needed. 18 g 1 02/19/2021 11/25/2024 Discontinued take 2 mL by inhalat ion four times daily as needed albuterol sulfate 1.25 mg/3 mL solution for nebulization inhale 2 milliliter by inhalation route 2- 4 times every day via nebulizer for breathing as needed 0.8333 MG - Active Comment on above: Inhale 2 Puffs as in structed every 4 hours as needed. 10 ml aminophylline 25 mg/ml injection (4 sources) Start: 12-21-2023 End: 12-28-2023 aminophylline 50-250 mg injection amLODIPine 10 mg oral tablet (20 sources) Dihydropyridine Calcium Channel Madeleine Start: 03-29-2025 amLODIPine (NORVASC) 10 mg tablet Take 1 tablet by mouth once daily. Increased by [facility] 03/2025 for SOB 03/29/2025 Active Start: 11-29-2023 End: 01-26-2025 take 1 tablet by mouth once daily amLODIPine (NORVASC) 5 mg tablet Take 1 tablet by mouth once daily. 90 tablet 1 01/26/2025 Active Start: 10-22-2023 take 1 tablet by satish th once daily amLODIPine (NORVASC) 5 mg tablet Indications: Essential hypertension Take 1 tablet by mouth once daily. 30 tablet 0 10/22/2023 Active Start: 10-21-2023 End: 10-22-2023 amLODIPine (NORVASC) 10 mg t ablet Indications: Essential hypertension take 1 tablet every day 60 tablet 3 10/21/2023 10/22/2023 Discontinued Start: 09-14-2023 take 1 tablet by satish th once daily amLODIPine (NORVASC) 10 mg tablet Indications: Essential hypertension Take 1 tablet by mouth once daily. 60 tablet 0 09/14/2023 Active Start: 08-30-2023 take 1 tablet by satish th once daily amLODIPine (NORVASC) 5 mg tablet Indications: Essential hypertension Take 1 tablet by mouth once daily. 0 08/30/2023 Active Start: 07-23-2023 End: 08-30-2023 take 1 tablet by mouth once daily amLODIPine (NORVASC) 2.5 mg tablet Take 1 tablet by mouth once daily. 90 tablet 1 07/23/2023 08/30/2023 Discontinued Comment on above: Take 1 tablet by satish th once daily. take 1 tablet every day aspirin 81 mg chewable tablet (20 sources) Platelet Aggregation Inhibitor, Nonsteroidal Anti-inflammatory Drug Start: 05-07-2020 take 1 tablet by mouth once daily Aspirin 81 MG tablet,chewable Active 81 mg PO DAILY@0800 May 07, 2020 12:00am take 1 tablet by mouth once kelley y aspirin, enteric coated (ASPIRIN, ENTERIC COATED) 81 mg EC tablet Take 81 mg by mouth once daily. Active take 1 tablet by mouth once kelley y [place] 81 mg capsule take 1 tablet by oral route every day for heart 1 tablet - Active Comment on above: Take 81 mg by mouth once daily. 4 ml bevacizumab 25 mg/ml injection (1 source) Vascular Endothelial Growth Factor Inhibitor Start: 04-09-20 Avastin 25 mg/mL intravenous solution Direct Patient Administration Only - Active cefadroxil 500 mg oral capsule (4 sources) Cephalosporin Antibacterial Start: 01-11-20 End: 01-21-20 take 1 capsule by mouth twice daily cefADROxil (DURICEF) 500 mg capsule Take 1 capsule by mouth two times a day for 10 days. 20 capsule 01/10/2025 01/20/2025 Active Start: 10-04-2022 End: 10-11-2022 take 1 capsule by mouth twice daily cefADROxil (DURICEF) 500 mg capsule Take 1 capsule by mouth twice daily for 7 days. 14 capsule 0 10/04/2022 10/11/2022 Active Comment on above: Take 1 capsule by [facility] twice daily for 7 days. celecoxib 200 mg oral capsule (20 sources) Nonsteroidal Anti-inflammatory Drug Start: End: take 1 capsule by mouth twice daily celecoxib (CELEBREX) 200 mg capsule Indications: Osteoarthritis, unspecified osteoarthritis type, unspecified site Take 1 capsule by mouth two times a day. 180 capsule 1 05/18/2025 Active Start: 12-08-2023 End: 01-06-2025 take 1 capsule by mouth twice daily Celecoxib (Celebrex) 200 mg capsule Active 200 mg PO TWICE A DAY January 21, 2024 12:00am Start: 07-08-2022 End: 07-23-2023 take 1 capsule by mouth twice daily celecoxib (CELEBREX) 100 mg capsule Take 1 capsule by mouth twice daily. 180 capsule 1 07/23/2023 Active take 1 capsule by [facility] once daily for pain celecoxib 100 mg capsule take 1 capsule by oral route every day for joint pain 100 MG - Active Comment on above: Take 1 capsule by [facility] twice daily. Take 1 capsule by [facility] two times a day. DULoxetine 30 mg delayed release oral capsule (20 sources) Serotonin and Norepinephrine Reuptake Inhibitor Start: 08-02-20 End: 01-27-20 take 1 capsule by mouth once daily DULoxetine (CYMBALTA) 30 mg capsule Take 1 capsule by mouth once daily. In place of the Citaloram 90 capsule 1 01/26/2025 Active fluticasone / salmeterol (20 sources) Corticosteroid, beta2-Adrenergic Agonist Start: 08-02-20 take 1 puff(s) by inhalation twice daily fluticasone propion-salmeteroL (Advair Diskus) 250-50 mcg/dose diskus inhaler Inhale 1 puff twice a day. 08/02/2024 Active Start: 08-02-2024 take 1 puff(s) by in halation twice daily fluticasone-salmeterol (WIXELA INHUB) 250-50 mcg/dose inhaler Inhale 1 Puff as instructed two times a day. 3 Each 1 08/02/2024 Active levothyroxine sodium 0.137 mg oral tablet (20 sources) l-Thyroxine Start: 01-21-2024 Levothyroxine 125 mcg tablet Active 137 ug PO DAILY January 21, 2024 8:51am Start: 01-21-2024 take 137 ug by mouth once kelley y Levothyroxine Active 137 MCG PO DAILY January 21, 2024 8:51am Start: 08-30-2023 End: 01-26-2025 levothyroxine (LEVOXYL) 137 mcg tablet Indications: Acquired hypothyroidism Take one tab by mouth once a day Wed-Wed, 1/2 on Wed and none on Wednesday. Take on empty stomach. For Thyroid. 90 tablet 1 01/26/2025 Active Start: 01-28-2022 End: 01-29-2022 take 1 tablet by mouth once daily Levothyroxine 150 mcg tablet Discontinued 150 ug PO DAILY January 28, 2022 12:00am January 29, 2022 8:29am Start: 12-03-2021 End: 01-21-2024 take 1 tablet by mouth once daily Levothyroxine 125 mcg tablet Discontinued 125 ug PO DAILY January 29, 2022 12:00am January 21, 2024 8:52am Start: 05-07-2020 End: 01-28-2022 Levothyroxine 137 MCG tablet Discontinued 125 ug PO DAILY May 07, 2020 12:00am January 28, 2022 2:01pm Start: 05-07-2020 End: 01-28-2022 take 125 ug by mouth once daily Levothyroxine Disconti nued 125 MCG PO DAILY May 07, 2020 12:00am January 28, 2022 2:01pm take 1 capsule by mo uth once daily for thyroid dysfunction levothyroxine 125 mcg capsule take 1 capsule by oral route every day for thyroid 125 MCG - Active Comment on above: Take one tab once a day Wed-Sat and 1/2 a tab on Wednesday, Take on empty stomach. For Thyroid. Take one tab once a day Wed-Sat and 1.5 tabs on Wednesday, Take on empty stomach. For Thyroid. Take one tab once a day Mon-Sat and 2 tabs on Wednesday, Take on empty stomach. For Thyroid. Take one tab by mout h once a day. Take on empty stomach. For Thyroid. Take one tab by mout h once a day Wed-Wed and none on Wednesday. Take on empty stomach. For Thyroid. 24 hr metoprolol succinate 50 mg extended release oral tablet (20 sources) beta-Adrenergic Madeleine Start: 03-29-2025 metoprolol succinate ER (TOPROL XL) 50 mg 24 hr tablet Take 1 tablet by mouth once daily. Decreased by [facility] 03/2025 due to SOB 03/29/2025 Active Start: 12-21-2023 End: 12-28-2023 metoprolol 2.5-5 mg injectio n (LOPRESSOR) Start: 12-03-2021 End: 01-26-2025 take 1 tablet by mouth once daily metoprolol succinate ER (TOPROL XL) 100 mg Take 1 tablet by mouth once daily. 90 tablet 1 01/26/2025 Active Start: 05-07-2020 End: 12-05-2021 Metoprolol Succinate 100 MG tablet extended release 24 hr Discontinued 150 mg PO DAILY May 07, 2020 12:00am December 05, 2021 3:09pm Start: 05-07-2020 End: 12-05-2021 take 150 mg by mouth once daily Metoprolol Succinate Discontinued 150 MG PO DAILY May 07, 2020 12:00am December 05, 2021 3:09pm Start: 12-22-2019 End: 01-12-2020 take 1 tablet by mouth twice daily Metoprolol Tartrate 25 MG tablet Discontinued 25 mg PO TWICE A DAY 60 December 22, 2019 1:00am January 12, 2020 1:59pm Hold if HR Start: 09-07-2013 End: 12-22-2019 take 1 tablet by mouth once daily Metoprolol Tartrate 25 MG tablet Discontinued 25 mg PO DAILY September 07, 2013 12:00am December 22, 2019 8:42am take 1 capsule by [facility] once daily Kapspargo Sprinkle 100 mg capsule,extended release take 1 capsule by oral route every day for blood pressure 100 MG - Active Comment on above: Take 1 tablet by [facility] once daily. nitrofurantoin, macrocrystals 25 mg / nitrofurantoin, monohydrate 75 mg oral capsule (10 sources) Nitrofuran Antibacterial Start: 022 End: 022 take 1 capsule by mouth twice daily at mealtime nitrofurantoin monohydrate and macrocrystal (MACROBID) 100 mg capsule Take 1 capsule by mouth twice daily with meals for 7 days. 14 capsule 0 07/08/2022 07/15/2022 Active Start: 12-05-2021 End: 01-28-2022 take 1 capsule by mouth twice daily Nitrofurantoin Monohyd/M-Cryst 100 mg capsule Discontinued 100 mg PO TWICE A DAY December 05, 2021 1:00am January 28, 2022 2:03pm X 7 DAYS Comment on above: Take 1 capsule by [facility] twice daily with meals for 7 days. nitroglycerin 0.4 mg sublingual tablet (20 sources) Nitrate Vasodilator Start: 12-26-19 End: 01-26-20 nitroglycerin sublingual (NITROQUICK) 0.4 mg SL tablet Dissolve 1 tablet under the tongue every 5 minutes as needed. 25 tablet 6 01/26/2024 Active Comment on above: Dissolve 1 tablet un aisha the tongue every 5 minutes as needed. omeprazole 40 mg delayed release oral capsule (20 sources) Proton Pump Inhibitor Start: 01-30-20 End: 01-27-20 take 1 capsule by mouth twice daily omeprazole (PRILOSEC) 40 mg capsule Take 1 capsule by mouth two times a day. 180 capsule 1 01/26/2025 Active Start: 12-03-2021 End: 07-08-2022 take 1 capsule by mouth once daily Omeprazole 40 mg capsule,delayed release(DR/EC) Discontinued 40 mg PO DAILY December 05, 2021 1:00am January 28, 2022 2:03pm Comment on above: Take 1 capsule by mo ut once daily. Take 1 capsule by mo uth twice daily. Take 1 capsule by mo uth two times a day. ondansetron 4 mg disintegrating oral tablet (20 sources) Serotonin-3 Receptor Antagonist Start: 12-06-19 End: 01-21-20 take 1 tablet by mouth every six hours as needed ondansetron orally disintegrating (ZOFRAN ODT) 4 mg disintegrating tablet Take 1 tablet by mouth every 6 hours as needed for nausea/vomiting. 20 tablet 1 01/20/2023 Active Comment on above: Take 1 tablet by satish th every 6 hours as needed for nausea/vomiting. predniSONE 2.5 mg oral tablet (1 source) Start: 02-08-20 End: 02-18-20 take 1 tablet by mouth twice daily predniSONE (DELTASONE) 2.5 mg tablet Take 1 tablet by mouth two times a day for 10 days. 20 tablet 02/07/2025 02/17/2025 Active regadenoson 0.4 mg injection (LEXISCAN) (4 sources) Start: 12-21-19 End: 12-28-19 regadenoson 0.4 mg injection (LEXISCAN) rosuvastatin calcium 5 mg oral tablet (20 sources) HMG-CoA Reductase Inhibitor Start: 05-07-20 End: 01-27-20 take 1 tablet by mouth once daily rosuvastatin (CRESTOR) 5 mg tablet Take 1 tablet by mouth once daily. 90 tablet 1 01/26/2025 Active Comment on above: Take 1 tablet by satish th once daily. traMADol hydrochloride 50 mg oral tablet (20 sources) Opioid Agonist Start: 04-11-20 End: 07-03-20 take 1 tablet by mouth every eight hours as needed for pain traMADol (ULTRAM) 50 mg tablet Indications: Arthritis of both knees , Osteoarthritis, unspecified osteoarthritis type, unspecified site Take 1 tablet by mouth every 8 hours as needed for pain for up to 90 days. 270 tablet 04/04/2025 07/03/2025 Active Start: 07-13-2023 End: 04-06-2024 take 1 tablet by mouth every eight hours as needed for pain traMADol (ULTRAM) 50 mg tablet Indications: Arthritis of both knees , Osteoarthritis, unspecified osteoarthritis type, unspecified site Take 1 tablet by mouth every 8 hours as needed for pain for up to 90 days. 270 tablet 0 01/07/2024 04/06/2024 Active Start: 04-09-2023 End: 07-08-2023 take 1 tablet by mouth every eight hours as needed for pain traMADol (ULTRAM) 50 mg tablet Indications: Arthritis of both knees , Osteoarthritis, unspecified osteoarthritis type, unspecified site Take 1 tablet by mouth every 8 hours as needed for pain for up to 90 days. 270 tablet 0 04/09/2023 07/08/2023 Active Start: 01-04-2023 End: 04-04-2023 take 1 tablet by mouth every eight hours as needed for pain traMADol (ULTRAM) 50 mg tablet Indications: Arthritis of both knees , Osteoarthritis, unspecified osteoarthritis type, unspecified site Take 1 tablet by mouth every 8 hours as needed for pain for up to 90 days. 270 tablet 0 01/04/2023 04/04/2023 Active Start: 01-28-2022 End: 03-22-2025 take 1 tablet by mouth every twelve hours Tramadol 50 mg tablet Active 50 mg PO Q12H March 22, 2025 8:01am Start: 12-03-2021 End: 12-29-2022 take 1 tablet by mouth every eight hours as needed for pain traMADol (ULTRAM) 50 mg tablet Indications: Arthritis of both knees , Osteoarthritis, unspecified osteoarthritis type, unspecified site Take 1 tablet by mouth every 8 hours as needed for pain for up to 90 days. 270 tablet 0 09/30/2022 12/29/2022 Active Start: 01-31-2021 End: 01-28-2022 take 1 tablet by mouth every six hours as needed for pain Tramadol 50 MG tablet Discontinued 50 mg PO EVERY 6 HOURS NEEDED as needed for Pain Score 1-10 January 31, 2021 12:00am January 28, 2022 2:03pm Start: 05-08-2020 End: 05-15-2020 take 50-100 mg by mouth every six hours as needed for pain Tramadol 50 MG tablet Discontinued 50 - 100 mg PO EVERY 6 HOURS NEEDED as needed for Pain Score 1-08/17 50 7 May 08, 2020 12:00am May 14, 2020 12:00am May 15, 2020 12:02am MAY TAKE WITH TYLENOL Comment on above: Take 1 tablet by satish th every 8 hours as needed for pain for up to 90 days. Take 1 tablet by satish th every 8 hours as needed for pain for up to 270 days. valsartan 320 mg oral tablet (20 sources) Angiotensin 2 Receptor Madeleine Start: End: take 1 tablet by mouth once daily valsartan (DIOVAN) 320 mg tablet Indications: Essential hypertension Take 1 tablet by mouth once daily. 90 tablet 1 01/26/2025 Active Start: 02-11-2024 End: 03-17-2024 valsartan (Diovan) 160 mg ta blet 02/11/2024 Active Comment on above: Take 1 tablet by satish th once daily. Completed/Discontinued Medications Medication Drug Class(es) Dates Sig (Normalized) Sig (Original) betamethasone 3 mg/ml / betamethasone acetate 3 mg/ml injectable suspension (12 sources) Corticosteroid Start: 01-10-2024 End: 01-10-2024 betamethasone acetate-betamethason e sodium phosphate 6 mg injection (CELESTONE) Start: 08-30-2023 End: 08-30-2023 betamethasone acetate-betame thasone sodium phosphate 6 mg injection (CELESTONE) Start: 02-22-2023 End: 02-22-2023 betamethasone acetate-betame thasone sodium phosphate 6 mg injection (CELESTONE) Start: 02-22-2023 End: 02-22-2023 betamethasone acetate-betame thasone sodium phosphate 6 mg injection (CELESTONE) Start: 11-12-2022 End: 11-12-2022 betamethasone acetate-betame thasone sodium phosphate 6 mg injection (CELESTONE) Start: 11-12-2022 End: 11-12-2022 betamethasone acetate-betame thasone sodium phosphate 6 mg injection (CELESTONE) Start: 08-10-2022 End: 08-10-2022 betamethasone acetate-betame thasone sodium phosphate 6 mg injection (CELESTONE) Start: 04-30-2022 End: 04-30-2022 betamethasone acetate-betame thasone sodium phosphate 6 mg injection (CELESTONE) Start: 04-30-2022 End: 04-30-2022 betamethasone acetate-betame thasone sodium phosphate 6 mg injection (CELESTONE) cephalexin 500 mg oral capsule (20 sources) Cephalosporin Antibacterial Start: 12-15-2023 End: 03-22-2025 take 1 capsule by mouth three times daily Cephalexin 500 mg capsule Discontinued 500 mg PO THREE TIMES A DAY December 16, 2023 1:00am March 22, 2025 8:00am Comment on above: Take 500 mg by mouth three times a day. cholecalciferol 0.025 mg oral tablet (9 sources) Vitamin D Start: 05-07-2020 End: 12-05-2021 take 1 tablet by mouth once daily Cholecalciferol (Vitamin D3) 1,000 UNIT tablet Discontinued 1000 U PO DAILY May 07, 2020 12:00am December 05, 2021 3:09pm citalopram 40 mg oral tablet (20 sources) Serotonin Reuptake Inhibitor Start: 12-03-2021 End: 03-22-2025 take 1 tablet by mouth once daily Citalopram 40 mg tablet Discontinued 40 mg PO DAILY January 29, 2022 12:00am March 22, 2025 8:00am Start: 05-07-2020 End: 01-28-2022 take 1 tablet by mouth once daily Citalopram 20 MG tablet Discontinued 20 mg PO DAILY May 07, 2020 12:00am January 28, 2022 2:03pm Start: 09-07-2013 End: 01-12-2020 take 1 tablet by mouth once daily Citalopram 40 MG tablet Discontinued 40 mg PO DAILY September 07, 2013 12:00am January 12, 2020 1:59pm Comment on above: Take 1 tablet by satish th once daily. clopidogrel 75 mg oral tablet (15 sources) [id number] Platelet Inhibitor Start: 0 End: 4 take 1 tablet by mouth once daily Clopidogrel 75 MG tablet Discontinued 75 mg PO DAILY May 07, 2020 12:00am December 13, 2023 7:52pm On Hold: PT STATES NOT TAKING Comment on above: Take 1 tablet by satish once daily. COMPOUNDED PRESCRIPTION (20 sources) Start: 8 End: 3 COMPOUNDED PRESCRIPTION CPAP chin strap, #: one Dx: G47.33 1 Device 0 05/16/2018 07/23/2023 Discontinued Start: 05-16-2018 COMPOUNDED PRE SCRIPTION CPAP chin strap, #: one Dx: G47.33 1 Device 0 05/16/2018 Active Comment on above: CPAP chin strap, #: one Dx: G47.33 CPAP (20 sources) Start: 02-04-2016 End: 07-23-2023 CPAP Indications: Severe obstructive sleep apnea Dream Wear mask for CPAP. Dx MATT 1 Device 0 02/04/2016 07/23/2023 Discontinued (Discontinued by Patient) Start: 02-04-2016 CPAP Indicatio ns: Severe obstructive sleep apnea Dream Wear mask for CPAP. Dx MATT 1 Device 0 02/04/2016 Active Comment on above: Dream Wear mask for CPAP. Dx MATT diazePAM 2 mg oral tablet (18 sources) Benzodiazepine Start: 1 End: 2 take 1 tablet by mouth three times daily as needed Diazepam 2 MG tablet Discontinued 2 mg PO 3 TIMES DAILY NEEDED as needed for dizzy January 31, 2021 12:00am December 05, 2021 3:09pm Start: 05-08-2020 End: 05-15-2020 take 1 tablet by mouth four times daily as needed for dizziness Diazepam 2 MG tablet Discontinued 2 mg PO 4 TIMES DAILY NEEDED as needed for Dizziness 22 05May 08, 2020 9:23am May 14, 2020 12:00am May 15, 2020 12:02am famotidine 20 mg oral tablet (20 sources) Histamine-2 Receptor Antagonist Start: 07-23-2023 End: 03-17-2024 famotidine (PEPCID) 20 mg tablet Take 1 tablet by mouth twice daily. Started in ER 05/2023 07/23/2023 03/17/2024 Discontinued Comment on above: Take 20 mg by mouth twice daily. Take 1 tablet by satish th twice daily. Started in ER 05/2023 Take 1 tablet by satish th twice daily. Started in ER 06/2023 Fluticasone Propionate (20 sources) Corticosteroid Start: 05-15-2022 End: 12-13-2023 take 100 ug by inhalation twice daily Fluticasone Propionate (Flovent Diskus) 100 mcg/actuation blister with device Discontinued 2 NMA INHALATION TWICE A DAY 3 May 15, 2022 3:23pm December 13, 2023 7:52pm Start: 05-15-2022 End: 12-13-2023 take 100 ug by inhalation twice daily Fluticasone Propionate (Flovent Diskus) 100 mcg/actuation blister with device Discontinued 2 INH INHALATION TWICE A DAY 3 May 15, 2022 3:23pm December 13, 2023 7:52pm Start: 05-15-2022 End: 12-13-2023 take 100 ug by inhalation twice daily Fluticasone Propionate (Flovent Diskus) 100 mcg/actuation blister with device Discontinued 2 INH INHALATION TWICE A DAY 3 May 15, 2022 2:23pm December 13, 2023 6:52pm Start: 05-15-2022 take 100 ug by inhal ation twice daily Fluticasone Propionate (Flovent Diskus) 100 mcg/actuation blister with device Active 2 INH INHALATION TWICE A DAY 3 May 15, 2022 3:23pm Start: 05-01-2022 End: 05-15-2022 take 100 ug by inhalation twice daily Fluticasone Propionate (Flovent Diskus) 100 mcg/actuation blister with device Discontinued 2 NMA INHALATION TWICE A DAY 3 May 01, 2022 10:23am May 15, 2022 3:23pm Start: 05-01-2022 End: 05-15-2022 take 100 ug by inhalation twice daily Fluticasone Propionate (Flovent Diskus) 100 mcg/actuation blister with device Discontinued 2 INH INHALATION TWICE A DAY 3 May 01, 2022 9:23am May 15, 2022 2:23pm Start: 05-01-2022 End: 05-15-2022 take 100 ug by inhalation twice daily Fluticasone Propionate (Flovent Diskus) 100 mcg/actuation blister with device Discontinued 2 INH INHALATION TWICE A DAY 3 May 01, 2022 10:23am May 15, 2022 3:23pm Start: 01-29-2022 take 100 ug by inhal ation twice daily Fluticasone Propionate (Flovent Diskus) 100 mcg/actuation blister with device Active 2 INH INHALATION TWICE A DAY January 29, 2022 8:33am Start: 01-29-2022 End: 05-01-2022 take 100 ug by inhalation twice daily Fluticasone Propionate (Flovent Diskus) 100 mcg/actuation blister with device Discontinued 2 NMA INHALATION TWICE A DAY January 29, 2022 12:00am May 01, 2022 10:24am Start: 01-29-2022 End: 05-01-2022 take 100 ug by inhalation twice daily Fluticasone Propionate (Flovent Diskus) 100 mcg/actuation blister with device Discontinued 2 INH INHALATION TWICE A DAY January 28, 2022 11:00pm May 01, 2022 9:24am Start: 01-29-2022 End: 05-01-2022 take 100 ug by inhalation twice daily Fluticasone Propionate (Flovent Diskus) 100 mcg/actuation blister with device Discontinued 2 INH INHALATION TWICE A DAY January 29, 2022 12:00am May 01, 2022 10:24am Start: 12-03-2021 End: 03-17-2024 take 1 puff(s) by inhalation twice daily fluticasone propionate (FLOVENT DISKUS) 100 mcg/actuation inhaler Inhale 1 Puff as instructed twice daily. 3 Each 1 12/03/2021 03/17/2024 Discontinued Comment on above: Inhale 1 Puff as ins tructed twice daily. hydroCHLOROthiazide 12.5 mg oral capsule (10 sources) Thiazide Diuretic Start: 2021 End: 2021 take 1 capsule by mouth once daily Hydrochlorothiazide 12.5 mg capsule Discontinued 12.5 mg PO DAILY December 05, 2021 1:00am December 05, 2021 3:29pm Comment on above: Take 1 capsule by [facility] once daily. 10 ml lidocaine hydrochloride 10 mg/ml injection (12 sources) Antiarrhythmic, Amide Local Anesthetic Start: 2023 End: 2023 lidocaine (PF) 10 mg/mL (1 %) 4 mL injection (XYLOCAINE) Start: 08-30-2023 End: 08-30-2023 lidocaine (PF) 10 mg/mL (1 % ) 4 mL injection (XYLOCAINE) Start: 02-22-2023 End: 02-22-2023 lidocaine (PF) 10 mg/mL (1 % ) 4 mL injection (XYLOCAINE) Start: 02-22-2023 End: 02-22-2023 lidocaine (PF) 10 mg/mL (1 % ) 4 mL injection (XYLOCAINE) Start: 11-12-2022 End: 11-12-2022 lidocaine (PF) 10 mg/mL (1 % ) 4 mL injection (XYLOCAINE) Start: 11-12-2022 End: 11-12-2022 lidocaine (PF) 10 mg/mL (1 % ) 4 mL injection (XYLOCAINE) Start: 08-10-2022 End: 08-10-2022 lidocaine (PF) 10 mg/mL (1 % ) 4 mL injection (XYLOCAINE) Start: 04-30-2022 End: 04-30-2022 lidocaine (PF) 10 mg/mL (1 % ) 4 mL injection (XYLOCAINE) Start: 04-30-2022 End: 04-30-2022 lidocaine (PF) 10 mg/mL (1 % ) 4 mL injection (XYLOCAINE) lidocaine (PF) 20 mg/mL (2 % ) 30 mg, triamcinolone acetonide 60 mg (14 sources) Start: 05-21-2025 End: 05-21-2025 lidocaine (PF) 20 mg/mL (2 % ) 30 mg, triamcinolone acetonide 60 mg Start: 05-21-2025 End: 05-21-2025 INTRA-ARTICULAR, ONCE, 1 dos e, On Wed05/21/25 at 1000, EXP: Start: 01-19-2025 End: 01-19-2025 lidocaine (PF) 20 mg/mL (2 % ) 30 mg, triamcinolone acetonide 60 mg Start: 01-19-2025 End: 01-19-2025 lidocaine (PF) 20 mg/mL (2 % ) 30 mg, triamcinolone acetonide 60 mg Start: 01-19-2025 End: 01-19-2025 INTRA-ARTICULAR, ONCE, 1 dos e, On Wed01/19/25 at 1300, EXP: Start: 01-19-2025 End: 01-19-2025 INTRA-ARTICULAR, ONCE, 1 dos e, On Wed01/19/25 at 1300, EXP: Start: 09-19-2024 End: 09-19-2024 lidocaine (PF) 20 mg/mL (2 % ) 30 mg, triamcinolone acetonide 60 mg Start: 09-19-2024 End: 09-19-2024 lidocaine (PF) 20 mg/mL (2 % ) 30 mg, triamcinolone acetonide 60 mg Start: 09-19-2024 End: 09-19-2024 INTRA-ARTICULAR, ONCE, 1 dos e, On Wed09/19/24 at 1530, EXP: Start: 09-19-2024 End: 09-19-2024 INTRA-ARTICULAR, ONCE, 1 dos e, On Wed09/19/24 at 1530, EXP: Start: 05-16-2024 End: 05-16-2024 lidocaine (PF) 20 mg/mL (2 % ) 30 mg, triamcinolone acetonide 60 mg Start: 05-16-2024 End: 05-16-2024 lidocaine (PF) 20 mg/mL (2 % ) 30 mg, triamcinolone acetonide 60 mg losartan potassium 100 mg oral tablet (20 sources) Angiotensin 2 Receptor Madeleine Start: 09-03-2021 End: 03-22-2025 take 1 tablet by mouth twice daily Losartan 100 mg tablet Discontinued 100 mg PO TWICE A DAY January 28, 2022 1:49pm March 22, 2025 8:01am Start: 05-07-2020 End: 01-28-2022 take 1 tablet by mouth once daily Losartan 100 MG tablet Discontinued 100 mg PO DAILY May 07, 2020 12:00am January 28, 2022 2:03pm Start: 12-22-2019 End: 01-12-2020 Losartan 100 MG tablet Disco ntinued 100 mg PO DAILY December 22, 2019 1:00am January 12, 2020 1:59pm Hold for systolic blood pressure less than 120 mmHg Comment on above: Take 1 tablet by satish th twice daily. Take 1 tablet by satish th two times a day. mecobalamin 1 mg chewable tablet (9 sources) Start: 2 End: 2 take 1 tablet by mouth once daily Mecobalamin (Vitamin B12) 1,000 mcg tablet,chewable Discontinued 1000 ug PO DAILY January 28, 2022 12:00am January 29, 2022 8:32am meloxicam 15 mg oral tablet (20 sources) Nonsteroidal Anti-inflammatory Drug Start: 0 End: 0 take 1 tablet by mouth once daily Meloxicam 15 MG tablet Discontinued 15 mg PO DAILY May 07, 2020 12:00am May 08, 2020 9:23am Start: 12-22-2019 End: 01-12-2020 take 7.5 mg by mouth once daily Meloxicam Discontinued 7.5 mg PO DAILY 0 December 22, 2019 8:44am January 12, 2020 1:59pm Start: 12-20-2019 End: 12-22-2019 Meloxicam Discontinued 15 MG DAILY December 20, 2019 11:39pm December 22, 2019 8:44am Start: 12-20-2019 End: 12-22-2019 Meloxicam Discontinued 15 mg DAILY December 20, 2019 1:00am December 22, 2019 8:44am Start: 12-20-2019 End: 12-22-2019 Meloxicam Discontinued 15 MG DAILY December 20, 2019 12:00am December 22, 2019 7:44am Start: 12-20-2019 End: 12-22-2019 Meloxicam Discontinued 15 MG DAILY December 20, 2019 1:00am December 22, 2019 8:44am methylPREDNISolone (3 sources) Corticosteroid Start: 12-08-2023 End: 12-14-2023 methylPREDNISolone (MEDROL, MANDY,) 4 mg Dose-Pack Indications: Acute pain of right shoulder Follow dosing instructions, take with food. 21 tablet 12/08/2023 12/14/2023 Start: 12-08-2023 End: 12-14-2023 methylPREDNISolone (MEDROL, MANDY,) 4 mg Dose-Pack Indications: Acute pain of right shoulder Follow dosing instructions, take with food. 21 tablet 0 12/08/2023 12/14/2023 Active Comment on above: Follow dosing instru ctions, take with food. pravastatin sodium 40 mg oral tablet (9 sources) HMG-CoA Reductase Inhibitor Start: 3 End: 0 take 1 tablet by mouth once daily Pravastatin 40 MG tablet Discontinued 40 mg PO DAILY September 07, 2013 12:00am January 12, 2020 1:59pm sucralfate 1000 mg oral tablet (20 sources) Aluminum Complex Start: 2 End: 2 take 1 tablet by mouth three times daily Sucralfate 1 gram tablet Discontinued 1 g PO THREE TIMES A DAY January 28, 2022 12:00am January 29, 2022 8:32am Start: 07-15-2021 End: 01-20-2023 take 1 tablet by mouth four times daily sucralfate (CARAFATE) 1 gram tablet Take 1 tablet by mouth four times daily. 60 tablet 1 07/15/2021 01/20/2023 Discontinued (Discontinued by Patient) Comment on above: Take 1 tablet by satish th four times daily. vitamin b12 1 mg extended release oral tablet (20 sources) Vitamin B12 Start: 01-26-2025 End: 05-18-2025 take 1 tablet by mouth once daily Cyanocobalamin 1,000 mcg TbER Take 1 tablet by mouth once daily. 01/26/2025 05/18/2025 Discontinued Start: 04-17-2020 End: 10-22-2023 take 1 tablet by mouth once daily Cyanocobalamin (Vitamin B-12) 1,000 MCG tablet Discontinued 1000 ug PO DAILY May 07, 2020 12:00am December 05, 2021 3:09pm Comment on above: Take 1 tablet by satish th once daily. Problems Active Problems Problem Classification Problem Date Documented Da te Episodic/Chronic Abdominal pain (1 source) Right lower quadrant pain; Translations: [Right lower quadrant pain] Episodic Anxiety disorders (20 sources) Anxiety; Translations: [Anxiety disorder, unspecified] Onset: 0 03-22-2014 Chronic Cataract (8 sources) Presence of intraocular lens; Translations: [Bilateral pseudophakia] Onset: 2 10-16-2022 Chronic Chronic kidney disease (20 sources) Chronic kidney disease stage 3A ; Translations: [Stage 3a chronic kidney disease (HCC)] Onset: 3 Chronic Chronic kidney disease (1 source) Chronic kidney disease; Translations: [Stage 3a chronic kidney disease (HCC)] Onset: 3 Chronic obstructive pulmonary disease and bronchiectasis (20 sources) Pulmonary emphysema; Translations: [Emphysema, unspecified] Onset: 5 03-20-2022 Chronic Congestive heart failure; nonhypertensive (12 sources) Chronic diastolic heart failure; Translations: [Chronic diastolic (congestive) heart failure] Onset: 5 Chronic Coronary atherosclerosis and other heart disease (20 sources) History of non-ST segment elevation myocardial infarction; Translations: [Old myocardial infarction] Onset: 0 11-03-2021 Chronic Comment on above: 01/20/2010, 12/21/2019 Deficiency and other anemia (20 sources) Increased hemoglobin; Translations: [Other hemoglobinopathies] Onset: 0 11-27-2020 Chronic Deficiency and other anemia (1 source) Other hemoglobinopathies; Translations: [Elevated hemoglobin (HCC)] Onset: 4 Chronic Diseases of mouth; excluding dental (3 sources) Mucocele of mouth; Translations: [Other lesions of oral mucosa] Onset: 4 09-15-2024 Episodic Disorders of lipid metabolism (20 sources) Mixed hyperlipidemia; Translations: [Mixed hyperlipidemia] Onset: 0 11-28-2015 Chronic Esophageal disorders (20 sources) Gastroesophageal reflux disease without esophagitis; Translations: [Gastro-esophageal reflux disease without esophagitis] Onset: 2 Chronic Essential hypertension (20 sources) Essential hypertension; Translations: [Essential (primary) hypertension] Onset: 7 01-26-2017 Chronic Fluid and electrolyte disorders (2 sources) Hyperkalemia; Translations: [Hyperkalemia] 12-21-2023 Episodic Genitourinary symptoms and ill-defined conditions (1 source) Increased frequency of urination; Translations: [Frequency of micturition] Episodic Lymphadenitis (1 source) Lymphadenopathy; Translations: [Generalized enlarged lymph nodes] 01-26-2025 Episodic Mood disorders (20 sources) Recurrent major depression in partial remission; Translations: [Major depressive disorder, recurrent, in partial remission] Onset: 6 05-16-2018 Chronic Nonspecific chest pain (20 sources) Chest pain; Translations: [Chest pain, unspecified] 05-06-2023 Episodic Occlusion or stenosis of precerebral arteries (20 sources) Bilateral stenosis of carotid arteries; Translations: [Occlusion and stenosis of bilateral carotid arteries] Onset: 4 12-31-2023 Chronic Osteoarthritis (20 sources) Bilateral arthritis of knees; Translations: [Bilateral primary osteoarthritis of knee] Onset: 6 Chronic Other and ill-defined heart disease (9 sources) Left ventricular diastolic dysfunction ; Translations: [Heart disease, unspecified] 02-03-2021 Chronic Other circulatory disease (2 sources) Abnormal foot pulse; Translations: [Other specified symptoms and signs involving the circulatory and respiratory systems] 05-21-2025 Episodic Other circulatory disease (1 source) Other specified symptoms and signs involving the circulatory and respiratory systems; Translations: [Decreased pulses in feet] Onset: 5 Episodic Other connective tissue disease (20 sources) History of total hip arthroplasty; Translations: [Presence of right artificial hip joint] Onset: 9 08-16-2019 Chronic Other connective tissue disease (1 source) Paraparesis; Translations: [Other symptoms and signs involving the musculoskeletal system] Onset: 4 08-21-2024 Episodic Other connective tissue disease (2 sources) Other symptoms and signs involving the musculoskeletal system; Translations: [Other symptoms and signs involving the musculoskeletal system] Onset: 4 Episodic Other connective tissue disease (2 sources) Trochanteric bursitis of right hip; Translations: [Trochanteric bursitis, right hip] 02-07-2025 Episodic Other eye disorders (7 sources) Vitreous degeneration, bilateral; Translations: [Vitreous degeneration, bilateral] Onset: 5 Chronic Other eye disorders (1 source) Posterior vitreous detachment Onset: 2 10-16-2022 Chronic Other gastrointestinal disorders (1 source) Dysphagia; Translations: [Dysphagia, unspecified] 01-10-2025 Episodic Other gastrointestinal disorders (2 sources) Esophageal dysphagia; Translations: [Other dysphagia] 01-16-2025 Episodic Other gastrointestinal disorders (1 source) Dysphagia, unspecified; Translations: [Dysphagia, unspecified] Onset: 5 Episodic Other hematologic conditions (9 sources) Raised cardiac enzyme or marker; Translations: [Other specified abnormalities of plasma proteins] 05-22-2020 Episodic Other liver diseases (2 sources) Jaundice; Translations: [Unspecified jaundice] 12-21-2023 Episodic Other lower respiratory disease (13 sources) Dyspnea on exertion; Translations: [Dyspnea, unspecified] 02-04-2021 Episodic Other lower respiratory disease (14 sources) Dyspnea; Translations: [Dyspnea, unspecified] 12-13-2021 Episodic Other lower respiratory disease (1 source) Dyspnea, unspecified; Translations: [Other respiratory abnormalities] Episodic Other lower respiratory disease (1 source) Chronic cough; Translations: [Chronic cough] 01-22-2025 Episodic Other lower respiratory disease (2 sources) Cyanosis; Translations: [Cyanosis] 05-21-2025 Episodic Other lower respiratory disease (1 source) Cyanosis; Translations: [Cyanosis] Onset: 5 Episodic Other nervous system disorders (20 sources) Carpal tunnel syndrome of left wrist; Translations: [Carpal tunnel syndrome, left upper limb] Onset: 8 05-05-2018 Chronic Other nervous system disorders (1 source) Abnormal gait; Translations: [Unspecified abnormalities of gait and mobility] Onset: 4 08-21-2024 Episodic Other nervous system disorders (2 sources) Unspecified abnormalities of gait and mobility; Translations: [Unspecified abnormalities of gait and mobility] Onset: 4 Episodic Other non-traumatic joint disorders (20 sources) Pain in right hip joint; Translations: [Pain in right hip] Onset: 6 06-21-2017 Episodic Other non-traumatic joint disorders (20 sources) Pain in right knee; Translations: [Pain in joint, lower leg] Onset: 0 05-28-2021 Episodic Other non-traumatic joint disorders (1 source) Pain in right shoulder; Translations: [Pain in joint, shoulder region] 12-08-2023 Episodic Other non-traumatic joint disorders (1 source) Pain in right hip; Translations: [Pain in right hip] Onset: 4 Episodic Other nutritional; endocrine; and metabolic disorders (20 sources) Obese class I; Translations: [Obesity, unspecified] Onset: 9 08-16-2019 Chronic Other screening for suspected conditions (not mental disorders or infectious disease) (12 sources) Elevated C-reactive protein; Translations: [Elevated C-reactive protein (CRP)] Onset: 4 Episodic Other skin disorders (9 sources) Excessive sweating; Translations: [Generalized hyperhidrosis] 02-04-2021 Episodic Other skin disorders (1 source) Discoloration of skin; Translations: [Disorder of pigmentation, unspecified] Episodic Other skin disorders (1 source) Mass of neck; Translations: [Localized swelling, mass and lump, neck] 01-10-2025 Episodic Other upper respiratory infections (1 source) Pharyngitis; Translations: [Acute pharyngitis, unspecified] 01-10-2025 Episodic Marah-; endo-; and myocarditis; cardiomyopathy (except that caused by tuberculosis or sexually transmitted disease) (15 sources) Heart valve disorder; Translations: [Endocarditis, valve unspecified] Onset: 5 01-26-2025 Chronic Residual codes; unclassified (20 sources) Obstructive sleep apnea syndrome; Translations: [Obstructive sleep apnea (adult) (pediatric)] Onset: 5 03-20-2022 Chronic Residual codes; unclassified (1 source) Obstructive sleep apnea (adult) (pediatric); Translations: [Severe obstructive sleep apnea] Onset: 4 Chronic Residual codes; unclassified (4 sources) Pain; Translations: [Pain, unspecified] 01-26-2025 Episodic Residual codes; unclassified (1 source) Pain, unspecified; Translations: [Pain] Onset: 5 Episodic Retinal detachments; defects; vascular occlusion; and retinopathy (20 sources) Bilateral degeneration of macula; Translations: [Unspecified macular degeneration] Onset: 3 Resolved: 4 Chronic Spondylosis; intervertebral disc disorders; other back problems (20 sources) Degeneration of lumbar intervertebral disc; Translations: [Other intervertebral disc degeneration, lumbar region] Onset: 8 08-16-2019 Chronic Substance-related disorders (20 sources) Smoker; Translations: [Nicotine dependence, unspecified, uncomplicated] Onset: 0 12-03-2021 Chronic Syncope (9 sources) Near syncope; Translations: [Syncope and collapse] 12-13-2021 Episodic Thyroid disorders (20 sources) Acquired hypothyroidism; Translations: [Hypothyroidism, unspecified] Onset: 5 08-02-2015 Chronic Unclassified (1 source) Low back pain, unspecified; Translations: [Low back pain, unspecified] Onset: 4 Unclassified (1 source) Degeneration of intervertebral disc of lumbar region, unspecified whether pain present; Translations: [Degeneration of intervertebral disc of lumbar region, unspecified whether pain present] Onset: 9 Urinary tract infections (10 sources) Acute urinary tract infection; Translations: [Urinary tract infection, site not specified] Episodic Past or Other Problems Problem Classification Problem Date Documented Da te Episodic/Chronic Administrative/social admission (20 sources) Advance directive discussed with patient; Translations: [Other specified counseling] Onset: 01-20-2023 Episodic Conditions associated with dizziness or vertigo (20 sources) Benign paroxysmal positional vertigo; Translations: [Benign paroxysmal vertigo, unspecified ear] Onset: 08-02-2015 08-04-2015 Episodic Coronary atherosclerosis and other heart disease (1 source) Presence of coronary angioplasty implant and graft; Translations: [Percutaneous transluminal coronary angioplasty status] Onset: 12-21-2019 01-21-2024 Episodic Diabetes mellitus without complication (20 sources) High hemoglobin A1c level; Translations: [Other abnormal glucose] Onset: 12-30-2017 12-30-2017 Episodic Immunizations and screening for infectious disease (2 sources) Vaccination needed; Translations: [Encounter for immunization] Onset: 08-02-2024 04-28-2024 Episodic Malaise and fatigue (13 sources) Fatigue; Translations: [Other fatigue] Onset: 01-26-2025 02-04-2021 Episodic Neoplasms of unspecified nature or uncertain [...] (20 sources) Patient encounter status; Translations: [Other long-term (current) drug therapy] Onset: 04-02-2015 Episodic Other aftercare (1 source) Other long-term (current) drug therapy; Translations: [Medication management] Onset: [...] of COVID-19] Onset: 07-08-2022 07-08-2022 Episodic Other lower respiratory disease (10 sources) Other forms of dyspnea; Translations: [Chronic dyspnea] Onset: 01-26-2025 12-13-2023 Episodic Other lower respiratory disease (2 sources) Shortness of breath; Translations: [Shortness of breath] Onset: 01-26-2025 Episodic Other non-traumatic joint disorders (20 sources) Hip pain; Translations: [Pain in right hip] Onset: 04-29-2016 08-02-2024 Episodic Other nutritional; endocrine; and metabolic disorders (20 sources) Overweight; Translations: [Overweight] Onset: 12-30-2018 04-28-2024 Episodic Other skin disorders (20 sources) Inflamed seborrheic keratosis; Translations: [Inflamed seborrheic keratosis] Onset: 12-30-2014 11-03-2021 Episodic Other skin disorders (20 sources) Epidermoid cyst; Translations: [Epidermal cyst] Onset: 09-09-2019 03-06-2020 Episodic Residual codes; unclassified (20 sources) Active living will ; Translations: [Other specified health status] Onset: 12-03-2021 12-03-2021 Episodic Screening and history of mental health and substance abuse codes (20 sources) Ex-smoker; Translations: [Personal history of nicotine dependence] Onset: 01-19-2010 01-26-2024 Episodic Spondylosis; intervertebral disc disorders; other back problems (20 sources) Lumbar radiculopathy; Translations: [Radiculopathy, lumbar region] Onset: 05-26-2018 08-16-2019 Episodic Unclassified (20 sources) SUMMARY Onset: 01-19-2010 Resolved: 11-04-2011 11-04-2011 Unclassified (1 source) Onset: 08-21-2024 08-21-2024 Unclassified (1 source) Low back pain, unspecified; Translations: [Low back pain, unspecified] Onset: 08-21-2024 Unclassified (1 source) macular degeneration followup (chief complaint) Onset: 03-23-2025 Unclassified (1 source) AMD (chief complaint) Onset: 05-17-2024 Unclassified (1 source) AMD OS (chief complaint) Onset: 02-25-2024 Unclassified (1 source) Dry AMD OD Wet AMD OS (chief complaint) Onset: 12-03-2023 Unclassified (2 sources) Wet AMD OS (chief complaint) Onset: 06-25-2023 Resolved: 09-24-2023 Unclassified (1 source) wet Age Related Macular Degeneration (chief complaint) Onset: 10-16-2022 Unclassified (2 sources) Patient encounter status 05-18-2025 Results Test Name Value Interpretation Reference Range Facility CT Heart and Coronary arteri es for calcium scoring WO contraston 05-23-2025 IMPRESSION: - Total Coronary Calcium Score (CAC) = 1283 [employer] Salesperson: MIRIAM Transcribe Date/Time: May 23 2025 10:01A Dictated by : JAYSHREE LAND, This examination was interpreted and the report reviewed and electronically signed by: JAYSHREE LAND, on May 23 2025 10:46AM [facility] * * *Final Report* * * DATE OF EXAM: May 23 2025 9:47AM ATC 2105 - CT CALCIUM SCORING SELF PAY / PROCEDURE REASON: Z13.6 ENCOUNTER FOR SCREENING FOR CARDIOVASCULAR DISORDERS * * * * Physician Interpretation * * * * Examination: CT Coronary Calcium Score Direct Image Comparison: None HISTORY: 84 years old Female with concern for coronary artery disease. There is request to assess coronary calcification TECHNIQUE: SCANNER: Multi-detector scanner PROTOCOL: Sequential imaging with prospective triggering and 3-mm slice reconstruction was performed without contrast administration. Scan Range: gino to the base of the heart Scan acquisition was uncomplicated Tube Voltage: [address] Dose-Length Product (DLP): 99.[address] Dose Reduction Employed: Automated exposure control (AEC) CONTRAST: None Macro Version: [id number]:CCTWO_5 For optimization of anatomic evaluation, off-line postprocessing was performed on a dedicated workstation by the interpreting physician. STUDY LIMITATIONS: breathing artifact. RESULT: LINES, TUBES and DEVICES: None limited CHEST: visualized Chest wall anatomy: unremarkable. visualized LUNGS: emphysematous changes, focal atelectasis. Clinical correlation is recommended. visualized MEDIASTINUM: unremarkable. PERICARDIUM: unremarkable CENTRAL PULMONARY ARTERY: normal dimensions. Assessment is limited due to lack of contrast enhancement. CARDIAC CHAMBERS: assessment is limited in the non-contrast study. -Overall normal dimensions Mild MAC AORTIC VALVE: assessment is limited in the current study. Mild calcification at the commissures. visualized AORTA: Aortic Size: Normal size visualized thoracic aorta. Wall Changes: scattered mild calcified wall changes. AORTIC DIMENSIONS: AORTIC ROOT: 3.4 cm measured [id number] mid ASCENDING THORACIC AORTA: 3.2 cm mid DESCENDING THORACIC AORTA: 2.5 cm CORONARY ANATOMY: normal origin of the coronary arteries. Calcium Score (Agatston Units): LM: 97 AU LAD: 125 AU LCx: 430 AU RCA: 631 AU Other: 0 AU Total: 1283 AU Percentile Rank (age and gender matched relative to reference population): 91 percentile* [* [email or web address]-nhlbi [email or web address]/calcium/input.asp x] limited upper ABDOMEN: limited images are without acute abnormalities or significant changes BONES and SOFT TISSUES: degenerative changes of the thoracic spine. Chip Unloader (topogram) images: No additional findings. [facility] Provider, Cc Lonnie monson Moro - 05/23/2025 * * *Final Report* * * DATE OF EXAM: May 23 2025 9:47AM ATC 2105 - CT CALCIUM SCORING SELF PAY / PROCEDURE REASON: Z13.6 ENCOUNTER FOR SCREENING FOR CARDIOVASCULAR DISORDERS * * * * Physician Interpretation * * * * Examination: CT Coronary Calcium Score Direct Image Comparison: None HISTORY: 84 years old Female with concern for coronary artery disease. There is request to assess coronary calcification TECHNIQUE: SCANNER: Multi-detector scanner PROTOCOL: Sequential imaging with prospective triggering and 3-mm slice reconstruction was performed without contrast administration. Scan Range: gino to the base of the heart Scan acquisition was uncomplicated Tube Voltage: [address] Dose-Length Product (DLP): 99.[address] Dose Reduction Employed: Automated exposure control (AEC) CONTRAST: None Macro Version: [id number]_5 For optimization of anatomic evaluation, off-line postprocessing was performed on a dedicated workstation by the interpreting physician. STUDY LIMITATIONS: breathing artifact. RESULT: LINES, TUBES and DEVICES: None limited CHEST: visualized Chest wall anatomy: unremarkable. visualized LUNGS: emphysematous changes, focal atelectasis. Clinical correlation is recommended. visualized MEDIASTINUM: unremarkable. PERICARDIUM: unremarkable CENTRAL PULMONARY ARTERY: normal dimensions. Assessment is limited due to lack of contrast enhancement. CARDIAC CHAMBERS: assessment is limited in the non-contrast study. -Overall normal dimensions Mild MAC AORTIC VALVE: assessment is limited in the current study. Mild calcification at the commissures. visualized AORTA: Aortic Size: Normal size visualized thoracic aorta. Wall Changes: scattered mild calcified wall changes. AORTIC DIMENSIONS: AORTIC ROOT: 3.4 cm measured [id number] mid ASCENDING THORACIC AORTA: 3.2 cm mid DESCENDING THORACIC AORTA: 2.5 cm CORONARY ANATOMY: normal origin of the coronary arteries. Calcium Score (Agatston Units): LM: 97 AU LAD: 125 AU LCx: 430 AU RCA: 631 AU Other: 0 AU Total: 1283 AU Percentile Rank (age and gender matched relative to reference population): 91 percentile* [* [email or web address]-nhlbi .org/calcium/input.asp x] limited upper ABDOMEN: limited images are without acute abnormalities or significant changes BONES and SOFT TISSUES: degenerative changes of the thoracic spine. Chip Unloader (topogram) images: No additional findings. IMPRESSION IMPRESSION: - Total Coronary Calcium Score (CAC) = 1283 [employer] Salesperson: MIRIAM Transcribe Date/Time: May 23 2025 10:01A Dictated by : JAYSHREE LAND, This examination was interpreted and the report reviewed and electronically signed by: JAYSHREE LAND, on May 23 2025 10:46AM EST [facility] Radiology Study observation (narrative) [facility] CT Heart and Coronary arteri es for calcium scoring WO contrastOrdered By: Ccf Provider on 05-23-2025 [facility] CNOVon 05-21-2025 CNOV Office Visit (FEDERICAPWS ) ANNE MARIE GARZA ([id number]) 1940 F Date Time Provider Department 05/21/25 9:20 AM MAX RODRIGUEZ During your visit today, we recorded the following information about you: Pulse Respiration Blood pressure Weight 68/minute 16/minute 138/60 80.6 kg Max Rodriguez MD 05/21/2025 9:47 AM Signed Chief Complaint Patient presents with: Bilateral Knee Pain HPI Anne Marie Garza is a 84 year old female who presents here today for bilateral knee pain. Pt here today wanting to have b/l knee injections. Pt prefers to not have surgery and is managing with steroid injections every 4 months. Last injections completed 01/19/25. Pt reports the right knee is the only one hurting her today, no issues with left knee. Patient has noticed increased blue discoloration in her feet. She also feels her feet are cold at times. Past medical history, appointments, medications, allergies reviewed. Previous Medical History PAST MEDICAL HISTORY Diagnosis Date Acquired hypothyroidism 08/02/2015 Advance directive discussed with patient 01/20/2023 Discussed 01/2023: Up to date Anxiety 01/19/2010 -continue home citalopram Bilateral carotid artery stenosis 12/31/2023 US 12/2023: Rt 20-40% Lt 60-80% BPV (benign positional vertigo) 08/02/2015 Chronic pain of both knees 05/24/2020 Seeing Ortho: Dr. Whiteside Coronary artery 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 08/02/2015 Not seeing cardiology Degenerative disc disease, lumbar 05/26/2018 Elevated hemoglobin 04/17/2020 to be rechecked 05/17/2020 Elevated hemoglobin A1c 12/30/2017 Epidermal inclusion cyst 09/09/2019 anterior chest wall excised 08/2019 Essential hypertension 01/26/2017 Graves disease Heart attack (HCC) [facility] stent in heart History of COVID-19 07/08/202205/2022 History of non-ST elevation myocardial infarction (NSTEMI) 01/19/201001/2010 Intradermal nevus 12/30/2014 right inferrior medial breast Keratosis, inflamed seborrheic 12/30/2014 right upper back Left carpal tunnel syndrome 01/04/[address] 12/03/2021 Daughter Truong is DPOA Low vitamin B12 level 04/06/2014 Lumbar radicular pain 05/26/2018 Added automatically from request for surgery [id number] Lump or mass in breast 01/20/2023 Patient [...] Recurrent major depressive disorder, in partial remission 04/14/2016 Severe obstructive sleep apnea AHI 32.5 [...] 2D ECHO (EXEP) 12/21/2019 EF=60%, 1+ TI, AR, AI 2D ECHO (EXEP) 02/17/2021 EF= 60%, mod santos dysf, ARTHRP ACETBLR/PROX FEM PROSTC AGRFT/ALGRFT Right 12/30/2018 Hip replacement, total CC CORONARY STENT 12/21/2019 MARCOS to mLCx COLONOSCOPY 05/01/2016 serrated adenoma/Repeat 04/2019 COLONOSCOPY COLONOSCOPY AND POLYPECTOMY 09/13/2006 hyperplastic polyp- repeat 2015 CORONARY STENT EA VESSEL 01/2010 ESOPHAGOGASTRODUODENOS COPY TRANSORAL DIAGNOSTIC 07/02/2021 LEXISCAN STRESS TEST 02/17/2021 negative NEUROPLASTY AND/TRANSPOS MEDIAN NRV CARPAL TUNNE Left 02/09/2018 Left carpal tunnel release SLING OPER STRES INCONTINENCE 1998, 2012 (Dr. Yi) XCAPSL CTRC RMVL INSJ IO LENS PROSTH W/O ECP Bilateral 09-28-12 and 11-07-12 Cataract Extraction with PC IOL Family History FAMILY HISTORY Problem Relation Age of Onset Coronary Artery Disease Mother blood clots- at 65 Cancer Father prostate Hypertension Father Asthma Father Alzheimer's Disease Brother at 78 Breast Cancer Daughter Breast Cancer Daughter Blood Clots Daughter while preganant- PE Patient Allergies ALLERGIES Allergen Reactions Iodine Anaphylaxis Hctz [Thiazides] Other: See Comments Dehydrated, nauseated and week Mary Inhibito (more content not included)... Normal [facility] CNOVon 05-18-2025 CNOV Office Visit (FAMPWS ) ANNE MARIE GARZA ([id number]) 1940 F Date Time Provider Department 05/18/25 12:40 PM NICOLE ZHANG During your visit today, we recorded the following information about you: Pulse Blood pressure Weight 67/minute 122/68 80 kg Nicole Zhang APRN.CNP 05/18/2025 1:46 PM Signed Anne Marie Garza is a 84 year old female here for a Medicare wellness visit. Medicare Health Risk Assessment General Health Good Exercise: Minutes/Day 0 min Exercise: Days/Week 0 days Alcohol: Daily Use Never Alcohol: Drinks/Day Patient does not drink Alcohol: 6 or more drinks Never Feel off balance Yes Concerns: Teeth/Dentures No Concerns: Sexual function No Troubled by feelings None of the above Frequency: Eating healthy diet Several days ADLs requiring help Grocery shopping; Cooking; Housework; Handling finances Safety precautions in home/vehicle Yes Smoke, vape, chews tobacco Yes, but I'm not ready to quit Difficulty hearing Yes Difficulty seeing Yes Current Providers Specialists: I have reviewed specialist-related care of the patient in the medical record. Current care team: Patient Care Team: Max Rodriguez MD as PCP - General (Family Medicine) Nicole Zhang APRN.CNP as Level Glass Vial Filler (Family Medicine) Dora Whitman PA-C as Level Glass Vial Filler (Family Medicine) Medical/Family history review Reviewed and updated problem list, medical/surgical/famil y/social history, medications, and allergies. Opioid use review Opioid Medications (last 90 days) 04/04/2025 00:00 Opioid Medications tramadol HCl 50 mg q 8 H PRN PO -Discontinued tramadol HCl 50 mg q 8 H PRN PO Details Outpatient prescription Prescribed tramadol HCl (last 90 days) Does patient have risk factors for opioid abuse? No Pain overview Current pain concerns and treatment plan reviewed. Patient stable on current treatment plan. Anxiety/Depression screening PHQ-9 Score: 4 (Minimal Depression) ANA-7 Score: 0 . Recommendation: no further intervention at this time Cognitive screening Cognitive screening reviewed and No further action needed (score 3-5). Functional Observation Was the patient's Timed Up AND Go test unsteady or >= 12 seconds? No Advance Care Planning Surrogate decision maker and/or advance care plan documented Measurements BP 122/68 Pulse 67 Wt 80 kg (176 lb 5.9 oz) BMI 30.46 kg/m? Vision Screening: Follows with optometry/ophthalmolog y Assessment/Plan Medicare annual wellness visit, subsequent (Z00.00) - Counseled on healthy diet and regular exercise - Fall avoidance information provided - Personalized prevention plan provided Chief Complaint Patient presents with: Medicare Wellness Exam HPI Anne Marie Garza is a 84 year old female who presents here today for Above Complaints. Patient presents for annual wellness exam. Patient reports she continues to be Short of Breath. Completed cardiac and pulm workup with no evidence of acute processes. Medication changes per Cardiology include metoprolol decrease and increase amlodipine which has not improved patients symptoms. Unable to leave house without difficulty breathing and quickly becomes short of breath. Past medical history, appointments, medications, allergies reviewed. Previous Medical History PAST MEDICAL HISTORY Diagnosis Date Acquired hypothyroidism 08/02/2015 Advance directive discussed with patient 01/20/2023 Discussed 01/2023: Up to date Anxiety 01/19/2010 -continue home citalopram Bilateral carotid artery stenosis 12/31/2023 US 12/2023: Rt 20-40% Lt 60-80% BPV (benign positional vertigo) 08/02/2015 Chronic pain of both knees 05/24/2020 Seeing Ortho: Dr. Whiteside Coronary artery 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 08/02/2015 Not seeing cardiology Degenerative disc disease, lumbar 05/26/2018 Elevated hemoglobin 04/17/2020 to be rechecked 05/17/2020 Elevated hemoglobin A1c 12/30/2017 Epidermal inclusion cyst 09/09/2019 anterior chest wall excised 08/2019 Essential hypertension 01/26/2017 Graves disease Heart attack (HCC) [facility] stent in heart History of COVID-19 07/08/202205/2022 History of non-ST elevation myocardial infarction (NSTEMI) 01/19/201001/2010 Intradermal nevus 12/30/2014 right inferrior medial breast Keratosis, inflamed seborrheic 12/30/2014 right upper back Left carpal tunnel syndrome 01/04/[address] 12/03/2021 Daughter Truong is DPOA Low vitamin B12 level 04/06/2014 Lumbar radicular pain 05/26/2018 Added automatically from request for surgery [id number] Lump or mass in breast 01/20/2023 Patient declined evaluation with imaging or Tx if it were to be cancer. 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 Has injection on the left Medicare annual wellness visit, jose carlos (more content not included)... Normal [facility] Cardiology Visit Reporton Cardiology Visit Report [facility] [address] [place] [address] OFFICE VISIT Date of Service: 03/22/25 MR#: [id number] Acct: [id number] Name: ANNE MARIE GARZA Rep #: [id number] : 1940 Provider: Dr. Emmett Rasmussen MD Age/Sex: 84/F Location: [facility] Status: Signed HPI HPI History of Present Illness Details: This is a 84-year-old female who presents today for a cardiovascular follow-up visit. She was admitted to [facility] on December 21, 2019 for a non-ST myocardial infarction. Troponin was elevated to 0.881. She does have a history of previous coronary artery disease with stenting to her RCA. Heart catheterization during hospital stay demonstrated a 95% lesion to her circumflex this was stented. She also has a history of hypertension and hyperlipidemia.her major complaint on today's visit is that she is fatigued and was sent to us for evaluation. She is accompanied by her daughter. She denies any chest pain or paroxysmal nocturnal dyspnea or pedal edema she does have some discoloration of her lower extremities. She is also short of breath with minimal activity. She underwent a stress test and an echocardiogram both of which were normal. Her physical exam is significant for varicose veins on her legs but good pedal pulses. Her blood pressure is under good control. Intake Vital Signs 01/21/24 08:40 03/22/25 07:55 Height 5 ft 4 in 5 ft 4 in Weight: 179 lb BMI 30.7 BP 131/65 H Blood Pressure Location Lt brachial Position Sitting Respiration 16 Pulse 61 Pulse Source Monitor Intake Visit Reasons: 1 Y FU Vascular Surgeon Required: No Accompanied by: Daughter Is patient in pain?: No Allergies iodine Allergy (Severe, Verified 03/22/25 08:00) Angioedema guaifenesin (From Mucinex) Allergy (Mild, Verified 03/22/25 08:00) Other ticagrelor (From Brilinta) Adverse Reaction (Severe, Verified 03/22/25 08:00) Shortness of breath varenicline (From Chantix) Adverse Reaction (Severe, Verified 03/22/25 08:00) Other Medications ???Medication ???Instructions ???Recorded ???Confirmed ???Type aspirin 81 mg chewable tablet 81 mg PO DAILY@0800 heart health 0 05/07/20 03/22/25 History rosuvastatin 5 mg tablet 5 mg PO DAILY cholesterol 05/07/20 03/22/25 History omeprazole 40 mg capsule,delayed 40 mg PO BID 01/29/22 03/22/25 His tory release albuterol sulfate 90 mcg/actuation 2 puff inhalation Q4H #8.5 grams 05/15/22 03/22/25 Rx aerosol inhaler celecoxib 200 mg capsule (Celebrex) 200 mg PO BID 01/21/24 03/22/25 History levothyroxine 125 mcg tablet 137 mcg PO DAILY 01/21/24 03/22/25 History amlodipine 10 mg tablet 5 mg (1/2 x 10 mg) PO DAILY #90 03/22/25 Rx tabs duloxetine 30 mg capsule,delayed 30 mg PO QDAY 03/22/25 03/22/25 Hi story release metoprolol succinate 50 mg 50 mg PO DAILY heart #90 tabs 03/0803/22/25 Rx tablet,extended release 24 hr tramadol 50 mg tablet 50 mg PO Q12H Pain Score 1-10 03/0803/22/25 History valsartan 320 mg tablet 320 mg PO QDAY 03/22/25 03/22/25 H istory Have you fallen in the past year?: No PFSH Medical History Trigger middle finger of left hand Tobacco abuse Personal history of colonic polyps Osteoarthritis Heart attack Graves disease COPD (chronic obstructive pulmonary disease) CAD (coronary artery disease) Left ventricular diastolic dysfunction Chronic diastolic (congestive) heart failure Nicotine dependence Atherosclerosis of coronary artery of [place] heart without angina pectoris History of non-ST elevation myocardial infarction (NSTEMI) (12/21/19) Vertigo Essential hypertension Hypothyroidism Anxiety and depression MATT (obstructive sleep apnea) Obesity HLD (hyperlipidemia) Surgical History History of coronary artery stent placement (12/21/19) Family History Father CAD (coronary artery disease) Prostate cancer Brother Alzheimer's disease Daughter Breast cancer Daughter Breast cancer Social History Smoking Status: Former smoker Tobacco: How many years used: 45 Electronic Cigarette Use: with nicotine and not used how long ago did patient quit smokin10/2023 second hand exposure: No alcohol intake: current alcohol intake frequency: a few times a week substance use type: does not use ROS Const Const: Negative for fatigue, weakness, headache(s), daytime sleepiness or difficulty sleeping ENT ENT: Positive for dizziness; Negative for headache(s) or Nosebleed/epistaxis Cardio Chest Pain: No Palpitations: No Edema: Bilateral (trace - 1+ BLE with dis (more content not included)... Normal [facility] CNOVon 02-07-2025 CNOV Office Visit (ORMDNA ) ANNE MARIE GARZA ([id number]) 1940 F Date Time Provider Department 02/07/25 10:40 AM PAPI BELTRAN ORGAGANDEEP During your visit today, we recorded the following information about you: Papi Beltran MD 02/07/2025 10:43 AM Signed CONSULT ORTHOPAEDIC: HIP PRIMARY CARE PHYSICIAN: Max Rodriguez MD REFERRING PROVIDER: Papi Beltran [address] [place] [address] ASSESSMENT AND PLAN This is an 84-year-old female who presents with right hip pain. Patient went a right total hip replacement Dr. Chaudhari 2018. She comes in today with newly developed pain is been going on for the past few months. She last saw Dr. Chaudhari for her hips in 2019 in September. She had history of lumbar radiculopathy at that point. She has been following here with Dr. Whiteside for bilateral knee arthritis. She underwent bilateral knee injections on January 10, 2024. These were steroids. Patient has BMI of 30. Patient does have history of COPD. Does not currently smoke. No history of diabetes history of blood clots or blood thinners or immunosuppressive medication history of smoking. Patient states that her knees are doing well since the knee injections. Her right hip is having pain on the lateral aspect of her hip. She states this is on and off and intermittent. She has done physical therapy through [facility] but continues to have pain with this. Has no groin pain has no pain with weightbearing he has no fevers or chills no signs of infection. Pain is mostly located over the greater trochanter. Impression: Right hip pain status post total hip replacement [address] Chaudhari, trochanteric bursitis Discussed with her the etiology of trochanteric bursitis evaluation of her left will send the patient to physical therapy with emphasis on IT band stretching massage therapy with abductor stretching. Will start prednisone as well to help with anti-inflammatory she was told that it affects. Follow-up in 3 to 4 months as needed Diagnoses: (M70.61) Trochanteric bursitis of right hip (primary encounter diagnosis) (M17.0) Primary osteoarthritis of both knees Risk Factors for Total Knee Arthroplasty (TKA) Major Risk Factors Obesity Moderate Risk High: BMI > 40 Moderate: BMI 30-40 Normal: BMI < 30 Diabetes normal High: A1C > 8 Moderate: A1C 7-8 Normal: A1C < 7 Hx of DVT / PE normal High: dx of DVT / PE Normal: no dx of DVT / PE Smoking normal High: Current smoker Normal: Non smoker Narcotics Use High Risk High:NarxCare >=300 Moderate: 100-299 Normal: 0-99 Depression Unknown Risk High: PHQ-9 >14 Moderate: PHQ-9 5-14 Normal: PHQ-9 < 5 Area Deprivation Index (STACIE) Unknown Risk High: STACIE Score > 75 Moderate: STACIE 50-75 Normal: STACIE < 50 Obesity: weight management recommended BMI Readings from Last 3 Encounters: 01/26/25 : 30.05 kg/m? 01/22/25 : 30.40 kg/m? 01/22/25 : 30.40 kg/m? Area Deprivation Index (STACIE) 03/20/2022 04/22/2023 STACIE Score National Score 82 79 Patient Health Questionnaire (PHQ-9) 08/16/2019 01/20/2023 01/26/2024 PHQ-9 PHQ-2 Score 0 1 2 (0-4) minimal depression, (5-9) mild depression, (10-14) moderate depression, (15-19) moderately severe depression, (20-27) severe depression Bone Density Risk Screen Anne Marie Garza is at risk for bone loss and has not had a bone densitometry scan in the last 2 years (date of last scan: 07/06/2017). Recommend a bone densitometry scan and if indicated on the bone density results, a consult to a bone health specialist (Rheumatology, Endocrinology, or Women's Health) for bone assessment. Risk Factors: Use of Proton Pump Inhibitors History of falls Dx of Chronic Kidney Disease (CKD) Prednisone or use of systemic steroids Additional Risk Factors COPD NarxCare score NARX Narcotics: 381 (02/06/2025 4:23 PM) Recommend a consult to Chronic Pain Management. Obstructive Sleep Apnea (MATT) Past Orthopaedic Surgery: Ann eMarie had hip surgery on 12/30/2018 with César Meek. Anne Marie had wrist surgery on 02/09/2018 with Bob Whiteside. Malnutrition: No Malnutrition Screening Tool (MST) score on file- please complete the MST screening tool (click here to open) and refresh the note. ACTIVE PROBLEM LIST History of Non-St Elevation Myocardial Infarction (Nstemi) Mixed Hyperlipidemia Anxiety Ex-Smoker Low Vitamin B12 Level Intradermal Nevus Keratosis, Inflamed Seborrheic Colon Cancer Screening Severe obstructive sleep apnea AHI 32.5 Coronary Artery Disease Due to Lipid Rich Plaque Acquired Hypothyroidism Bpv (Benign Positional Vertigo) Pulmonary Emphysema (Hcc) Trigger Middle Finger of Left Hand Trigger Index Finger of Left Hand Osteoarthritis Recurrent Major Depressive Disorder, in Partial Remission Pain in Right Hip Neoplasm of Uncertain Behavior of Face Essential H (more content not included)... Normal [facility] XR HIP 3V PELV+ AP/LAT RTon 02-07-2025 XR HIP 3V PELV+ AP/LAT RT * * *Final Report* * * DATE OF EXAM: Feb 07 2025 10:26AM HAMIDA 5352 - XR HIP 3V PELV+ AP/LAT RT / PROCEDURE REASON: [id number] * * * * Physician Interpretation * * * * PROCEDURE: Pelvis and right hip, mechanical axis INDICATION: Pain .Pt c/o right hip pain mainly on the lateral side of her hip TECHNIQUE: XR LEG FRONTL HIP-ANKL MECH AXIS, XR HIP 3V PELV+ AP/LAT RT COMPARISON: Pelvis 03/09/2019 FINDINGS: The right total hip arthroplasty remains in satisfactory position. No periprosthetic lucency or fracture. Severe left hip joint space narrowing with acetabular and femoral collar spur formation, showing interval progression. Degenerative change in the lower lumbar spine and SI joints. Contrast within the lower sigmoid diverticula. Mechanical axis images demonstrate advanced right lateral joint compartment osteoarthrosis with genu valgus and advanced left medial joint compartment osteoarthrosis with slight genu varus. IMPRESSION: Stable right ANUJA. Progressive, advanced left hip osteoarthrosis. Bilateral knee osteoarthrosis [employer] Salesperson: [facility] Transcribe Date/Time: Feb 11 2025 7:07A Dictated by : WOJCIECH PUGA MD This examination was interpreted and the report reviewed and electronically signed by: WOJCIECH PUGA MD on Feb 11 2025 7:10AM EST [id number] [facility] XR LEG FRONTL HIP-ANKL [facility] AXISon 02-07-2025 XR LEG FRONTL HIP-ANKL [facility] AXIS * * *Final Report* * * DATE OF EXAM: Feb 07 2025 10:26AM HAMIDA 5216 - XR LEG FRONTL HIP-ANKL [facility] AXIS / PROCEDURE REASON: [id number] * * * * Physician Interpretation * * * * PROCEDURE: Pelvis and right hip, mechanical axis INDICATION: Pain .Pt c/o right hip pain mainly on the lateral side of her hip TECHNIQUE: XR LEG FRONTL HIP-ANKL MECH AXIS, XR HIP 3V PELV+ AP/LAT RT COMPARISON: Pelvis 03/09/2019 FINDINGS: The right total hip arthroplasty remains in satisfactory position. No periprosthetic lucency or fracture. Severe left hip joint space narrowing with acetabular and femoral collar spur formation, showing interval progression. Degenerative change in the lower lumbar spine and SI joints. Contrast within the lower sigmoid diverticula. Mechanical axis images demonstrate advanced right lateral joint compartment osteoarthrosis with genu valgus and advanced left medial joint compartment osteoarthrosis with slight genu varus. IMPRESSION: Stable right ANUJA. Progressive, advanced left hip osteoarthrosis. Bilateral knee osteoarthrosis [employer] Salesperson: MIRIAM Transcribe Date/Time: Feb 11 2025 7:07A Dictated by : WOJCIECH PUGA MD This examination was interpreted and the report reviewed and electronically signed by: WOJCIECH PUGA MD on Feb 11 2025 7:10AM EST [id number] Normal [facility] Absolute lymphocyte countOrd ered By: Emmett Rasmussen on 02-01-2025 Lymphocytes Auto (Unsp spec) [#/Vol] 1.72 10*3/uL 0.83-4.51 [facility] Absolute neutrophil countOrd ered By: Emmett Rasmussen on 02-01-2025 Neutrophils (Bld) [#/Vol] 7.9 10*3/uL High 2.0-7.7 [facility] Anion gap in Serum or Plasma Ordered By: Emmett Rasmussen on 02-01-2025 Anion gap [Moles/Vol] 10 mmol/L - [facility] Automated lymphocyte count a s percentage of total leukocytesOrdered By: Emmett Rasmussen on 02-01-2025 Lymphocytes/100 WBC Auto (Unsp spec) 15.9 % Low 19-41 [facility] BUN/creatinine ratioOrdered By: Emmett Rasmussen on 02-01-2025 Urea nitrogen/Creatinine [Mass ratio] 15.4 mg/mg 10- [facility] Basic Metabolic Profile (BMP )on 02-01-2025 BUN/CRE 15.4 RATIO Normal - [facility] Comment on above: Performed By: #### L 500.2500, L100.0100, L503.7505 #### [facility] [address] [place], [address] GAP 10 Normal - [facility] Comment on above: Performed By: #### L 500.2500, L100.0100, L503.7505 #### [facility] [address] [place], [address] Basophil percentageOrdered B y: Emmett Rasmussen on 02-01-2025 Basophils/100 WBC (Bld) 0.6 % 0-1 [facility] CBC W/Diff, Automatedon 01-07 Absolute Lymph 1.72 X10 3/uL Normal 0.83-4.51 [facility] Comment on above: Performed By: #### L 500.2500, L100.0100, L503.7505 #### [facility] [address] [place], [address] Absolute Neut 7.9 X10 3/uL High 2.0-7.7 [facility] Comment on above: Performed By: #### L 500.2500, L100.0100, L503.7505 #### [facility] [address] [place], [address] Basophils/100 WBC (Bld) 0.6 % Normal 0-1 [facility] Comment on above: Performed By: #### L 500.2500, L100.0100, L503.7505 #### [facility] [address] [place], [address] Eosinophils/100 WBC (Bld) 3.1 % Normal 0-5 [facility] Comment on above: Performed By: #### L 500.2500, L100.0100, L503.7505 #### [facility] [address] [place], [address] Erythrocyte distribution width (RBC) [Ratio] 14.6 % Normal 11.6-14.6 [facility] Comment on above: Performed By: #### L 500.2500, L100.0100, L503.7505 #### [facility] [address] [place], [address] Hematocrit (Bld) [Volume fraction] 39.4 % Normal 37-47 [facility] Comment on above: Performed By: #### L 500.2500, L100.0100, L503.7505 #### [facility] [address] [place], [address] Hemoglobin (Bld) [Mass/Vol] 12.5 g/dL Normal 12.0-15.0 [facility] Comment on above: Performed By: #### L 500.2500, L100.0100, L503.7505 #### [facility] [address] [place], [address] IG% 0.300 Normal 0.0-0.9 [facility] Comment on above: Result Comment: IG% - Immature Granulocytes (promyelocytes, myelocytes and metamyelocytes) > 1% indicates that a LEFT SHIFT is Present. Performed By: #### L 500.2500, L100.0100, L503.7505 #### [facility] [address] [place], [address] Lymphocytes/100 WBC (Bld) 15.9 % Low 19-41 [facility] Comment on above: Performed By: #### L 500.2500, L100.0100, L503.7505 #### [facility] [address] [place], [address] MCH (RBC) [Entitic mass] 28.2 pg Normal 27.0-32.0 [facility] Comment on above: Performed By: #### L 500.2500, L100.0100, L503.7505 #### [facility] [address] [place], [address] MCHC (RBC) [Mass/Vol] 31.7 g/dL Low 32-36 [facility] Comment on above: Performed By: #### L 500.2500, L100.0100, L503.7505 #### [facility] [address] [place], [address] MCV (RBC) [Entitic vol] 88.9 fL Normal 81-99 [facility] Comment on above: Performed By: #### L 500.2500, L100.0100, L503.7505 #### [facility] [address] [place], [address] Monocytes/100 WBC (Bld) 6.8 % Normal 0-10 [facility] Comment on above: Performed By: #### L 500.2500, L100.0100, L503.7505 #### [facility] [address] [place], [address] Neutrophils/100 WBC (Bld) 73.3 % High 47-70 [facility] Comment on above: Performed By: #### L 500.2500, L100.0100, L503.7505 #### [facility] [address] [place], [address] Nucleated RBC (Bld) [#/Vol] 0 10*3/uL Normal 0-5 [facility] Comment on above: Performed By: #### L 500.2500, L100.0100, L503.7505 #### [facility] [address] [place], [address] Platelet mean volume (Bld) [Entitic vol] 10.7 fL Normal 6.2-12.0 [facility] Comment on above: Performed By: #### L 500.2500, L100.0100, L503.7505 #### [facility] [address] [place], [address] Platelets (Bld) [#/Vol] 298 10*3/uL Normal 150-450 [facility] Comment on above: Performed By: #### L 500.2500, L100.0100, L503.7505 #### [facility] [address] [place], [address] RBC (Bld) [#/Vol] 4.43 10*6/uL Normal 4.2-5.4 [facility] Comment on above: Performed By: #### L 500.2500, L100.0100, L503.7505 #### [facility] [address] [place], [address] RDW SD 47.0 fl High 35.1-43.9 [facility] Comment on above: Performed By: #### L 500.2500, L100.0100, L503.7505 #### [facility] [address] [place], [address] WBC (Bld) [#/Vol] 10.8 10*3/uL Normal 4.4-11.0 [facility] Comment on above: Performed By: #### L 500.2500, L100.0100, L503.7505 #### [facility] [address] [place], [address] Carbon dioxide, total [Moles /volume] in Central venous bloodOrdered By: Eveleth Grady on 02-01-2025 CO2 [Moles/Vol] 26.3 mmol/L Normal 21.0-32.0 [facility] Comment on above: Performed By: #### L 500.2500, L100.0100, L503.7505 #### [facility] [address] [place], [address] Chloride assayOrdered By: Cy ril Grady on 02-01-2025 Chloride [Moles/Vol] 103 mmol/L Normal 98-108 [facility] Comment on above: Performed By: #### L 500.2500, L100.0100, L503.7505 #### [facility] [address] [place], [address] Eosinophil percentageOrdered By: Emmett Grady on 02-01-2025 Eosinophils/100 WBC (Bld) 3.1 % 0-5 [facility] Erythrocyte distribution wid th ratioOrdered By: Eveleth Grady on 02-01-2025 Erythrocyte distribution width (RBC) [Ratio] 14.6 % 11.6-14.6 [facility] Erythrocyte distribution wid th standard deviationOrdered By: Emmett Rasmussen on 02-01-2025 Erythrocyte distribution width (RBC) [Entitic vol] 47.0 fL High 35.1-43.9 [facility] Erythrocyte distribution width (RBC) [Ratio] 47.0 fl High 35.1-43.9 [facility] GFR/1.73 sq M.predicted jaime g non-blacks MDRD (S/P/Bld) [Vol rate/Area]Ordered By: Emmett Rasmussen on 02-01-2025 Estimated GFR (MDRD) Non-Af Amer 49 Low >60 [facility] Comment on above: mL/min/1.73m2 CKD-EP I Creatinine Equation (2020) Glomerular filtration rate ( GFR) estimation/1.73 sq m using serum, plasma, or whole bOrdered By: Emmett Rasmussen on 02-01-2025 GFR/1.73 sq M.predicted among non-blacks MDRD (S/P/Bld) [Vol rate/Area] 49 mL/min/{1.73_m2} Low >60 [facility] Comment on above: mL/min/1.73m2 CKD-EP I Creatinine Equation (2020) Result Comment: mL/m in/1.73m2 CKD-EPI Creatinine Equation (2020) Performed By: #### L 500.2500, L100.0100, L503.7505 #### [facility] [address] [place] [address], [address] Hematocrit Auto (Bld) [Volum e fraction]Ordered By: Emmett Rasmussen on 02-01-2025 Hematocrit (Bld) [Volume fraction] 39.4 % 37-47 [facility] Hemoglobin measurementOrdere d By: Emmett Rasmussen on 02-01-2025 Hemoglobin (Bld) [Mass/Vol] 12.5 g/dL 12.0-15.0 [facility] Immature granulocytes/100 WB C Auto (Bld)Ordered By: Emmett Rasmussen on 02-01-2025 Immature granulocytes/100 WBC (Bld) 0.300 % 0.0-0.9 [facility] Comment on above: IG% - Immature Granu locytes (promyelocytes, myelocytes and metamyelocytes) > 1% indicates that a LEFT SHIFT is Present. L503.7505on 02-01-2025 Natriuretic peptide B (Bld) [Mass/Vol] 1039 pg/mL Normal <=1800 [facility] Comment on above: Result Comment: Hear t Failure Unlikely: < 300 pg/mL Heart Failure Likely < 50 Years: > 450 pg/mL 50-75 Years: > 900 pg/mL >75 Years: > 1800 pg/mL Performed By: #### L 500.2500, L100.0100, L503.7505 #### [facility] [address], [place], [address] Laboratory - Chemistry and C hemistry - challengeOrdered By: Emmett Rasmussen on 02-01-2025 Natriuretic peptide B (Bld) [Mass/Vol] 1039 pg/mL <1800 [facility] Comment on above: Heart Failure Unlike ly: < 300 pg/mLHeart Failure Likely< 50 Years: > 450 pg/mL50-75 Years: > 900 pg/mL>75 Years: > 1800 pg/mL Lymphocytes Auto (Unsp spec) [#/Vol]Ordered By: Emmett Rasmussen on 02-01-2025 Lymphocytes (Bld) [#/Vol] 1.72 10*3/uL 0.83-4.51 [facility] Lymphocytes/100 WBC Auto (Un sp spec)Ordered By: Emmett Rasmussen on 02-01-2025 Lymphocytes/100 WBC (Bld) 15.9 % Low 19-41 [facility] MCV (mean corpuscular volume ) determinationOrdered By: Emmett Rasmussen on 02-01-2025 MCV (RBC) [Entitic vol] 88.9 fL 81-99 [facility] Mean corpuscular hemoglobin (MCH) determinationOrdered By: Emmett Rasmussen on 02-01-2025 MCH (RBC) [Entitic mass] 28.2 pg 27.0-32.0 [facility] Mean corpuscular hemoglobin concentration (MCHC) determinationOrdered By: Eveleth Grady on 02-01-2025 MCHC (RBC) [Mass/Vol] 31.7 g/dL Low 32-36 [facility] Mean platelet volume determi nationOrdered By: Emmett Grady on 02-01-2025 Platelet mean volume (Bld) [Entitic vol] 10.7 fL 6.2-12.0 [facility] Monocyte percentageOrdered B y: Eveleth Grady on 02-01-2025 Monocytes/100 WBC (Bld) 6.8 % 0-10 [facility] Neutrophil percentageOrdered By: Eveleth Grady on 02-01-2025 Neutrophils/100 WBC (Bld) 73.3 % High 47-70 [facility] Nucleated red blood cell per centageOrdered By: Eveleth Grady on 02-01-2025 Nucleated RBC/100 WBC (Bld) [Ratio] 0 % 0-5 [facility] Platelet countOrdered By: Cy ril Grady on 02-01-2025 Platelets (Bld) [#/Vol] 298 10*3/uL 150-450 [facility] Potassium measurement (mass/ volume)Ordered By: Eveleth Grady on 02-01-2025 Potassium (Unsp spec) [Mass/Vol] 4.7 mmol/L 3.3-5.1 [facility] Potassium [Moles/Vol] 4.7 mmol/L Normal 3.3-5.1 [facility] Comment on above: Performed By: #### L 500.2500, L100.0100, L503.7505 #### [facility] [address] [place], [place] [address]. [place], [place], [id number] RBC Auto (Bld) [#/Vol]Ordere d By: Eveleth Grady on 02-01-2025 RBC (Bld) [#/Vol] 4.43 10*6/uL 4.2-5.4 [facility] Serum creatinine measurement (mass/volume)Ordered By: Emmett Grady on 02-01-2025 Creatinine [Mass/Vol] 1.12 mg/dL Normal 0.70-1.20 [facility] Comment on above: Performed By: #### L 500.2500, L100.0100, L503.7505 #### [facility] [address] [place], [address] Serum glucose measurement (m ass/volume)Ordered By: Emmett Rasmussen on 02-01-2025 Glucose [Mass/Vol] 62 mg/dL Low 70-99 [facility] Comment on above: Performed By: #### L 500.2500, L100.0100, L503.7505 #### [facility] [address] [place], [address] Serum or plasma calcium ajit urement (mass/volume)Ordered By: Emmett [facility] on 02-01-2025 Calcium [Mass/Vol] 8.2 mg/dL Normal 7.6-11.0 [facility] Comment on above: Performed By: #### L 500.2500, L100.0100, L503.7505 #### [facility] [address] [place], [address] Serum or plasma urea nitroge n measurement (mass/volume)Ordered By: [facility] on 02-01-2025 Urea nitrogen [Mass/Vol] 17 mg/dL Normal 4-19 [facility] Comment on above: Performed By: #### L 500.2500, L100.0100, L503.7505 #### [facility] [address] [place], [address] Sodium levelOrdered By: Gina Rasmussen on 02-01-2025 Sodium [Moles/Vol] 139 mmol/L Normal 133-145 [facility] Comment on above: Performed By: #### L 500.2500, L100.0100, L503.7505 #### [facility] [address] [place], [address] White blood cell (WBC) count Ordered By: Eveleth [facility] on 02-01-2025 WBC (Bld) [#/Vol] 10.8 10*3/uL 4.4-11.0 [facility] Office Visit (FAMPWS ) ANNE MARIE GARZA ([id number]) 1940 F Date Time Provider Department 01/26/25 10:00 AM MAX RODRIGUEZWS During your visit today, we recorded the following information about you: Pulse Respiration Blood pressure Weight 54/minute 18/minute 130/60 78.9 kg Mxa Rodriguez MD 01/26/2025 12:22 PM Signed Chief Complaint Patient presents with: Breathing Problem HPI Anne Marie Garza is a 84 year old female who presents here today for SOB. Yesterday after a shower she was very short of breath and even had some dry heaving. No vomiting. Denies any chest pain or pressure. No diaphoresis. Patient had her breathing test recently and Pulmonary said her studies did not show significant disease to explain her symptoms. She also had chest pain after pulmonary function test. Daughter thinks she gets leg swelling and some days better then others. No recent dysuria, urgency, frequency or hematuria. She finished her antibiotic that I placed her on recently and no longer having a sore throat. At appt on 01/10/2025 she did have a slightly firm tender mass on the right side of the neck that could of been an enlarged submandibular gland or lymph node.. Office visit - 01/10/2025 Patient has been taking her omeprazole twice a day every day. Has not noted any acid burning up into her throat no acid taste. The sore throat is only on the right side and has been going on for about two weeks. The dysphagia with solids only has been going on for about 2 months. Grand daughter who resides in her home was treated for step 3 weeks ago the dysphagia is with solids only. The cough is throughout the day and night. No increased nasal discharge or a sensation of post nasal drainage. No nausea or epigastric pain. Is getting very easily winded with trying to ambulate. Has a reduced stamina. No chest pains. No palpitations. Patient saw Pulmonary (Dr Nicholas) but didn't want to do any further testing. Patient also sees Dr. Rasmussen in March 2025. Did walking test on RA and was 92-93% SaO2 ; Pulse at 94-96; no dizziness or lightheadedness; no chest. Just felt weak. At rest 95% on RA 72 pulse Patient with Hx of hypothyroidism, CAD, COPD, HTN, elevated A1c, hyperlipidemia, emphysema, depression, anxiety, obesity, MATT, smoker, low B12, Arthritis with chronic pain especially the knees as well as those reviewed and addressed below and in ROS. Past medical history, appointments, medications, allergies reviewed. Previous Medical History PAST MEDICAL HISTORY Diagnosis Date Acquired hypothyroidism 08/02/2015 Advance directive discussed with patient 01/20/2023 Discussed 01/2023: Up to date Anxiety 01/19/2010 -continue home citalopram Bilateral carotid artery stenosis 12/31/2023 US 12/2023: Rt 20-40% Lt 60-80% BPV (benign positional vertigo) 08/02/2015 Chronic pain of both knees 05/24/2020 Seeing Ortho: Dr. Whiteside Coronary artery 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 08/02/2015 Not seeing cardiology Degenerative disc disease, lumbar 05/26/2018 Elevated hemoglobin (HCC) 04/17/2020 to be rechecked 05/17/2020 Elevated hemoglobin A1c 12/30/2017 Epidermal inclusion cyst 09/09/2019 anterior chest wall excised 08/2019 Essential hypertension 01/26/2017 Graves disease Heart attack (HCC) [facility] stent in heart History of COVID-19 07/08/202205/2022 History of non-ST elevation myocardial infarction (NSTEMI) 01/19/201001/2010 Intradermal nevus 12/30/2014 right inferrior medial breast Keratosis, inflamed seborrheic 12/30/2014 right upper back Left carpal tunnel syndrome 01/04/[address] 12/03/2021 Daughter Truong is DPOA Low vitamin B12 level 04/06/2014 Lumbar radicular pain 05/26/2018 Added automatically from request for surgery [id number] Lump or mass in breast 01/20/2023 Patient [...] PPD Stage 3a chronic kidney disease (HCC) (more content not included)... Normal [facility] ECHOon 01-26-2025 Echocardiography Echocardiography Report: Transthoracic Echo [facility] Date of service: 01/26/2025 7:52:57 AM [employer] Ordering physician: MAX RODRIGUEZ Indication: Shortness of Breath Technologist: Edwige Mccauley [facility] Interpreting physician: César Lowe DO PATIENT: Name: MS. ANNE MARIE GARAZ : 1940 Age: 84 years Gender: F History of hypertension, dyslipidemia and coronary artery disease. Previous cardiovascular interventions: PCI Primary rhythm: sinus. Height: 160.00 cm BSA: 1.88 m Weight: 79.38 kg BMI: 31.0 kg/m Heart rate 55 bpm Blood pressure 161/69 mmHg Technically difficult exam due to body habitus. Color Doppler was utilized to interrogate the cardiac valves assessed and spectral Doppler was utilized to determine the flow velocities and pressure gradients reported in this exam. Myocardial strain analysis was performed in this exam to aid in the assessment of cardiac function. MEASUREMENTS: Value Indexed Normal Max aortic dimension 2.7 cm Ao < 3.8 Left atrial volume 67 ml (biplane A-L) 36 ml/m [place] <= 34 LV ID (diastole) 5.2 cm (2D) 2.79 cm/m LV ID (systole) 3.2 cm (2D) 1.70 cm/m IVS, leaflet tips 1.1 cm (2D) Posterior wall thickness 1.1 cm (2D) Left ventricular mass 228 g (2D) 121 g/m Global peak long strain -17.2 % LV stroke volume 57 ml (2D biplane) LV end diastolic volume 96 ml (2D biplane) 50.9 ml/m 29<=EDVi<62 LV end systolic volume 39 ml (2D biplane) 20.7 ml/m Ejection Fraction 59 % (2D biplane) EF > 54 FINDINGS: LEFT VENTRICLE The left ventricle is normal in size. There is mild left ventricular hypertrophy. Left ventricular systolic function is normal. Global LV myocardial strain is normal. Grade I left ventricular diastolic dysfunction. Mitral annular lateral E/e': 11.0. Mitral annular septal E/e': 11.0. Wall Motion: All scored segments are normal. RIGHT VENTRICLE The right ventricle is normal in size. Right ventricular systolic function is normal. RV systolic tissue Doppler velocity is 13.0 cm/s. Tricuspid annular displacement is 2.0 cm. Estimated right ventricular systolic pressure is 31 mmHg consistent with normal pulmonary artery pressures. Estimated right atrial pressure is 3 mmHg (although IVC not seen). LEFT ATRIUM The left atrial cavity is mildly dilated. RIGHT ATRIUM The right atrial cavity is normal in size. Inferior Vena Cava: The inferior vena cava appears normal measuring 0.9 cm. MITRAL VALVE There is mild (1+) mitral valve regurgitation. There is mild thickening. The pressure half time is 54 msec. The peak mitral E/A ratio is 0.82. The average mitral E/e' ratio is 11.0. The mitral flow deceleration time is 188 msec. TRICUSPID VALVE The tricuspid valve leaflets are structurally normal. There is trace (trace - 1+) tricuspid valve regurgitation. AORTIC VALVE The aortic valve cusps are structurally normal. There is mild (1+ - 2+) aortic valve regurgitation. Tricuspid aortic valve. The peak gradient is 10 mmHg (peak velocity = 158.3 cm/s). PULMONIC VALVE The pulmonic valve cusps are structurally normal. There is trace pulmonic valve regurgitation. AORTA The visualized aorta is normal in size. Measurements - Mid ascending aorta 2.7 cm. INTERATRIAL SEPTUM There is no evidence of intracardiac shunting as detected by Doppler. PERICARDIUM There is no pericardial effusion. There is an epicardial fat pad. CONCLUSIONS: - Technically difficult exam due to body habitus. - Exam indication: Shortness of Breath - The left ventricle is normal in size. There is mild left ventricular hypertrophy. Left ventricular systolic function is normal. EF = 59 5% (2D biplane) Grade I left ventricular diastolic dysfunction. - The right ventricle is normal in size. Right ventricular systolic function is normal. - The left atrial cavity is mildly dilated. - No significant valvular abnormalities. - The prior CC echocardiographic exam performed on 01/20/2010 was unavailable for review. * * * Final * * * [employer] [facility] : [id number] [facility] CNPN Telephone (FAMPWS) ANNE MARIE GARZA ([id number]) 1940 F Date Time Provider Department 01/25/25 [facility] During your visit today, we recorded the following information about you: Orly Richardson LPN 01/25/2025 8:06 AM Signed Received results of pt's stress test done at [facility] ordered by PCP. Orly Richardson LPN Scan on 01/24/2025 6:15 PM by Provider, Gaudencio, VIN: Stress Test Max Rodriguez MD 01/25/2025 9:02 AM Signed Let daughter know stress test was normal. (Copy to Dr. Brent Haines for FYI) YENNY AKINS 01/25/2025 11:14 AM Signed Spoke with Kailyn at this time and notified of below. Verbalized understanding. States that today pt was so short of breath after getting a shower that she almost called the squad. Reports that it was so extreme that she almost vomited. Pt used her albuterol inhaler and that helped. Will proceed with ECHO tomorrow and has Wellness visit with PCP following. Instructed to proceed to ER if symptoms do continue to increase or any changes. Daughter states that she will. Yenny Akins LPN Allergies As of Date: 01/25/2025 Noted Allergy Reaction IODINE 01/19/2010 10 - Anaphylaxis HCTZ (THIAZIDES) 03/20/2022 14 - Other: See Comments Comments: Dehydrated, nauseated and week MARY INHIBITORS 07/19/2017 3 - Cough CHANTIX (VARENICLINE) 03/22/2014 14 - Other: See Comments Comments: Bad dreams LIPITOR (ATORVASTATIN CALCIUM) 01/26/2017 14 - Other: See Comments Comments: Muscle pains MUCINEX (GUAIFENESIN) 02/16/2017 1 - Mental Status Change Comments: dizziness and confusion PRAVACHOL (PRAVASTATIN SODIUM) 01/26/2017 14 - Other: See Comments Comments: Muscle aches ZANAFLEX (TIZANIDINE) 10/14/2016 14 - Other: See Comments Comments: Caused pt to feel jittery all over Date Reviewed: 01/22/2025 Reviewed by: Angela Haines MD - Fully Assessed Reason for Visit: Results [95] Prescriptions as of 01/25/2025 - celecoxib (CELEBREX) 200 mg capsule Take 1 capsule by mouth two times a day. - traMADol (ULTRAM) 50 mg tablet Take 1 tablet by mouth every 8 hours as needed for pain for up to 90 days. Patient should start on January 04, 2025. - albuterol HFA (PROVENTIL HFA, VENTOLIN HFA) 90 mcg/actuation inhaler Inhale 2 Puffs as instructed every 4 hours as needed. - levothyroxine (LEVOXYL) 137 mcg tablet Take one tab by mouth once a day Wed-Wed, 1/2 on Sat and none on Wednesday. Take on empty stomach. For Thyroid. - amLODIPine (NORVASC) 5 mg tablet Take 1 tablet by mouth once daily. - metoprolol succinate ER (TOPROL XL) 100 mg Take 1 tablet by mouth once daily. - omeprazole (PRILOSEC) 40 mg capsule Take 1 capsule by mouth two times a day. - rosuvastatin (CRESTOR) 5 mg tablet Take 1 tablet by mouth once daily. - valsartan (DIOVAN) 320 mg tablet Take 1 tablet by mouth once daily. - fluticasone-salmeterol (WIXELA INHUB) 250-50 mcg/dose inhaler Inhale 1 Puff as instructed two times a day. - DULoxetine (CYMBALTA) 30 mg capsule Take 1 capsule by mouth once daily. In place of the Citaloram - nitroglycerin sublingual (NITROQUICK) 0.4 mg SL tablet Dissolve 1 tablet under the tongue every 5 minutes as needed. - ondansetron orally disintegrating (ZOFRAN ODT) 4 mg disintegrating tablet Take 1 tablet by mouth every 6 hours as needed for nausea/vomiting. - aspirin, enteric coated (ASPIRIN, ENTERIC COATED) 81 mg EC tablet Take 81 mg by mouth once daily. Problem List As Of Date 01/25/2025 Noted Resolved SUMMARY [V999.95] 01/19/2010 11/04/2011 History of non-ST elevation myocardial infarcti*01/19/2010 Mixed hyperlipidemia [E78.2] 01/19/2010 Anxiety [F41.9] 01/19/2010 Ex-smoker [Z87.891] 01/19/2010 Low vitamin B12 level [R79.89] 04/06/2014 Intradermal nevus [D23.9] 12/30/2014 Keratosis, inflamed seborrheic [L82.0] 12/30/2014 Colon cancer screening [Z12.11] 04/02/2015 Severe obstructive sleep apnea AHI 32.5 [G47.3*04/24/2015 Coronary artery disease due to lipid rich plaqu*08/02/2015 Acquired hypothyroidism [E03.9] 08/02/2015 BPV (benign positional vertigo) [H81.10] 08/02/2015 Pulmonary emphysema (HCC) [J43.9] 08/02/2015 Trigger middle finger of left hand [M65.332] 08/04/2015 Trigger index finger of left hand [M65.322] 08/22/2015 Osteoarthritis [M19.90] 11/28/2015 Recurrent major depressive disorder, in partial*04/14/2016 Pain in right hip [M25.551] 04/29/2016 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 Normal [facility] Cardiovascular stress test r eportOrdered By: Emmett Rasmussen on 01-24-2025 Study report [facility] [address] [place] [address] MR#: [id number] Acct: [id number] Name: ANNE MARIE GARZA Rep #: [id number] : 1940 84 From: Emmett Rasmussen MD Primary Care: Dr. Max Rodriguez MD Stat us: REG CLI Referring Dr: Max Rodriguez MD Sex: F C Stress Test Report Pharmacologic myocardial perfusion stress test. 84-year-old with a history of shortness of breath Resting EKG demonstrates sinus bradycardia with a rate of 59 bpm. Resting bloodpressure is 166/82 mmHg. 0.4 mg of regadenoson was infused per usual protocol followed by rapid intravenous saline flush injection. Continuous EKG monitoringwas performed. The maximum heart rate was 100 bpm which was 72% of max impactedheart rate the maximum workload was 1 metabolic equivalent. At rest there were no ST or T wave changes noted to suggest ischemia and at peak infusion nonspecific ST changes were noted which did not meet the criteria for ischemia. No clinical angina is noted. The final blood pressure was 168/68 mmHg. Myocardial perfusion protocol. 11 mCi of technetium 99m sestamibi was injected at rest. 0.4 mg of regadenoson was infused per usual protocol. At peak infusion 33.6 mCi of technetium 99m sestamibi was injected stress images were obtained stress and rest images were reconstructed and compared in the short axis vertical long and horizontal long axis. Gated images were also obtained. Perfusion SPECT analysis: Review of the stress images demonstrate normal uptake of tracer noted in all areas of the myocardium. The resting images similar demonstrated normal uptake of tracer noted in all areas of the myocardium. No areas of reversibility are noted to suggest ischemia and no previous infarct is noted. Gated SPECT analysis: The gated ejection fraction is 71%. Conclusion: Normal pharmacologic myocardial perfusion stress test. Preserved ejection fraction. 01/24/251805 Date _ Emmett Rasmussen MD CC: Dr. Max Rodriguez MD ~ Date Dictated: 01/24/251803 Date Transcribed: 01/24/251803 [employer]person: [place] Signed [facility] Work Phone: Stress Reporton 01-24-2025 Stress Report [facility] [address] [place] [address] MR#: [id number] Acct: [id number] Name: ANNE MARIE GARZA Rep #: [id number] : 1940 84 From: Emmett Rasmussen MD Primary Care: Dr. Max Rodriguez MD Status: REG CLI Referring Dr: Max Rodriguez MD Sex: F C Stress Test Report Pharmacologic myocardial perfusion stress test. 84-year-old with a history of shortness of breath Resting EKG demonstrates sinus bradycardia with a rate of 59 bpm. Resting blood pressure is 166/82 mmHg. 0.4 mg of regadenoson was infused per usual protocol followed by rapid intravenous saline flush injection. Continuous EKG monitoring was performed. The maximum heart rate was 100 bpm which was 72% of max impacted heart rate the maximum workload was 1 metabolic equivalent. At rest there were no ST or T wave changes noted to suggest ischemia and at peak infusion nonspecific ST changes were noted which did not meet the criteria for ischemia. No clinical angina is noted. The final blood pressure was 168/68 mmHg. Myocardial perfusion protocol. 11 mCi of technetium 99m sestamibi was injected at rest. 0.4 mg of regadenoson was infused per usual protocol. At peak infusion 33.6 mCi of technetium 99m sestamibi was injected stress images were obtained stress and rest images were reconstructed and compared in the short axis vertical long and horizontal long axis. Gated images were also obtained. Perfusion SPECT analysis: Review of the stress images demonstrate normal uptake of tracer noted in all areas of the myocardium. The resting images similar demonstrated normal uptake of tracer noted in all areas of the myocardium. No areas of reversibility are noted to suggest ischemia and no previous infarct is noted. Gated SPECT analysis: The gated ejection fraction is 71%. Conclusion: Normal pharmacologic myocardial perfusion stress test. Preserved ejection fraction. 01/24/251805 Date Emmett Rasmussen MD CC: Dr. Max Rodriguez MD Date Dictated: 01/24/251803 Date Transcribed: 01/24/251803 [employer] Salesperson: [place] [facility]igned [facility] Office Visit (PULMWS ) ANNE MARIE GARZA ([id number]) 1940 F Date Time Provider Department 01/22/25 12:45 PM ANGELA HAINES PULMWS During your visit today, we recorded the following information about you: Pulse Respiration Blood pressure Weight 60/minute 15/minute 136/62 79.8 kg Height 1.621 m Angela Haines MD 01/22/2025 2:10 PM Signed . Respiratory Moro Note Patient name: Anne Marie Garza PCP: Max Rodriguez MD Referring Physician: Same Consultation requested by Dr. Rodriguez for an opinion regarding dyspnea and cough. My final recommendations will be communicated back to the requesting physician by way of shared Medical record or letter to requesting physician via US mail. CC: cough/SOB HPI: Anne Marie Garza 84 year old female former greater than 43-ippy-zcyl smoker quitting in 2021, nicotine vaping until last year with PMH significant for Graves' disease now hypothyroidism, anxiety, CAD s/p stents, HTN, GERD, HLD, diastolic dysfunction, MATT on CPAP, CKD being referred for evaluation of cough and SOB. She has a longstanding history of progressively worse in the past 6 months. She is unable to ambulate around her home without dyspnea. She gets short of breath with eating and showering. Her shortness of breath is so limiting that she has been mainly confined to her home. She denies any chest pain although she did have chest pain with her pulmonary function testing performed today. She has not heard any wheezing. Her cough has been present for 2 months. Cough is mainly dry. No coughing jags. She will cough through the night. She is on ICS/LABA inhaler and albuterol. She finds the albuterol to be most helpful for her symptoms. No acid reflux symptoms and no sinus congestion with postnasal drip. She has been on proton pump inhibitor for many years. Recent upper GI series was unremarkable. COPD Assessment Test I never cough 0 1 2 3 4 5 I cough all the time; Score 4 I have no phlegm 0 1 2 3 4 5 My chest is completely full of phlegm; Score 0 My chest does not feel tight at all 0 1 2 3 4 5 My chest chest feels very tight; Score 0 When I walk up a hill or one flight of stairs I am not breathless 0 1 2 3 4 5 When I walk up a hill or one flight or stairs I am very breathless; Score 5 I am not limited doing any activities at home 0 1 2 3 4 5 I am very limited doing activities at home; Score 5 I am confident leaving my home despite my lung condition 0 1 2 3 4 5 I am not at all confident leaving my home because of my lung condition; Score 5 I sleep soundly 0 1 2 3 4 5 don't sleep soundly because of my lungs; Score 0 I have lots of energy 0 1 2 3 4 5 I have no energy at all; Score 5 Total Score: 24 DATA: PFT: Imaging / Diagnostic Studies: Study: Chest 1 View (Portable) Date of Exam: 12/13/23 Exam# [id number] Ordering Dr: Flavio Echavarria [place] [id number] STUDY: X-RAY CHEST REASON FOR EXAM: Female, 83 years old. Stroke TECHNIQUE: Single AP portable view of the chest. COMPARISON: May 12, 2023 FINDINGS: There are monitoring devices. The lungs are clear and expanded. There is no demonstrated pleural abnormality. Normal size heart. Normal mediastinum and fracisco. Normal visualized pulmonary arteries. There is atherosclerotic calcification of the aortic arch with tortuosity. There are diffuse degenerative changes of the visualized thoracic spine. Normal visualized ribs, clavicles, and shoulders. There is no demonstrated abnormality of the visualized soft tissue structures of the upper abdomen. RAD/Chest 1 View (Portable) IMPRESSION: Degenerative changes, as described above. No demonstrated acute cardiopulmonary process. Review of chest x-ray is unremarkable except for mild cardiomegaly and probable focal atelectasis UGI: FINDINGS: The patient ingested barium. Multiple images of the esophagus, stomach and duodenum were obtained. The esophagus is unremarkable. No evidence of obstruction. No mass lesion is seen. The patient ingested a 12 mm tablet the barium without any difficulty. The stomach and duodenum are unremarkable. No evidence of gastroesophageal reflux. No mass lesion is seen. Atherosclerotic plaque formation of the aortic arch. Degenerative changes of the visualized dorsal spine. IMPRESSION: Unremarkable esophagram and upper GI series. PAST MEDICAL HISTORY Diagnosis Date Acquired hypothyroidism 08/02/2015 Advance directive discussed with patient 01/20/2023 Discussed 01/2023: Up to date Anxiety 01/19/2010 -continue home citalopram Bilateral carotid artery stenosis 12/31/2023 US 12/2023: Rt 20-40% Lt 60-80% BPV (benign positional vertigo) 08/02/2015 Chronic pain of both knees 05/24/2020 Seeing Ortho: Dr. Whiteside Coronary artery 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 (more content not included)... Normal [facility] No Panel Informationon 01-22 [facility] [address], [place] [address] Test Date: 2025-01-22 Pat Name: ANNE MARIE GARZA Department: Room: Gender: Female Video Production Engineer: : 1940 Requested By: Order Number: [id number] Reading MD: Angela Haines MD Interpretive Statements Medications and Allergies were reviewed for possible drug interactions per policy. No contraindications or sensitivities were noted. Meds taken: Wixela 15 hours before testing. Current ATS/ERS acceptability and repeatability standards for spirometry met. Start of test and EOFE criteria met. Current ATS/ERS acceptability and repeatability standards for DLCO met with 2 acceptable maneuvers. IMPRESSION: Spirometry is normal. The diffusion capacity (uncorrected for hemoglobin) is normal. Electronically Signed On 01-22-2025 12:55:55 EDT by Angela Haines MD Site: WO ID: [id number] Name: ANNE MARIE GARZA Visit Date: 01/22/2025 Doctor: Video Production Engineer: Kenisha Bowens Age: 84 Date of : 1940 Gender: Female Race: White Height: 63.80 in Weight: 176.00 lbs BSA: 1.848 Diagnosis: Shortness of breath Dyspnea: Cough: Wheeze: Tobacco Use: None Medications: Comments: Medications and Allergies were reviewed for possible drug interactions per policy. No contraindications or sensitivities were noted. Meds taken: Wixela 15 hours before testing. Current ATS/ERS acceptability and repeatability standards for spirometry met. Start of test and EOFE criteria met. Current ATS/ERS acceptability and repeatability standards for DLCO met with 2 acceptable maneuvers. Review Status: Not Reviewed PRE-BRONCH POST-BRONCH Pred LLN ULN Actual %Pred Actual %Chng SPIROMETRY FVC (L) 2.47 1.69 3.28 2.74 110 FEV1 (L) 1.87 1.25 2.44 1.88 100 FEV1/FVC 0.78 0.64 0.89 0.69 88 FEF25 (L/sec) 4.58 FEF50 (L/sec) 2.76 1.15 4.37 1.69 61 FEF75 (L/sec) 0.31 0.10 0.96 0.33 108 FXK97-77 (L/sec) 1.45 0.58 2.79 1.04 71 FEF Max (L/sec) 4.40 2.70 6.10 4.75 108 FIVC (L) 2.62 FIF50 (L/sec) 4.31 FIF Max (L/sec) 4.31 Time (sec) 9.61 HERNAN (L) 0.09 Time To FEF Max (sec) 0.15 DIFFUSION DLCOunc (ml/min/mmHg) 18.92 12.75 25.09 14.47 76 DLunc/VA 0.04 0.03 0.05 0.03 82 VA (L) 5.03 3.93 6.13 4.32 85 BHT (sec) 11.25 IVC (L) 2.51 PULMONARY FUNCTION LAB [facility] SPIROMETRY WITH DILATOR IF O BSTRUCTEDon 01-22-2025 DLCO (ml/min/mmHg) 14.47 ml/min/mmHg [facility] DLCO LLN (ml/min/mmHg) 12.75 ml/min/mmHg C [facility] DLCO PREDICTED (ml/min/mmHg) 18.92 ml/min/mmHg [facility] DLCO ULN (ml/min/mmHg) 25.09 ml/min/mmHg C [facility] DLCO/VA (ml/min/mmHg/L) 0.03 ml/m in/mmHg/ L [facility] DLCO/VA PREDICTED (ml/min/mmHg/L) 0.04 ml/min/mmHg/ L [facility] DLCO/VAcor (ml/min/mmHg/L) 0.03 ml/min/mmHg/ L [facility] DLCOcor (ml/min/mmHg) 14.24 ml/min/mmHg Cl [facility] DLCOcor PREDICTED (ml/min/mmHg) 18.92 ml/min/mmHg [facility] ERV PREDICTED (L) 0.82 L/S [facility] FEF25% PRE (L/S) 4.58 L/S [facility] TYG54-16% LLN (L/S) 0.58 L/S [facility] ZGM17-32% PRE (L/S) 1.04 L/S [facility] AGU22-01% PREDICTED (L/S) 1.45 L/S [facility] FEF75% LLN (L/S) 0.1 L/S [facility] FEF75% PRE (L/S0 0.33 L/S [facility] FEF75% PREDICTED (L/S) 0.31 L/S Cl [facility] FEF75% ULN (L/S) 0.96 L/S [facility] FET PRE (S) 9.61 S [facility] FEV1 LLN (L) 1.25 L [facility] FEV1 PRE (L) 1.88 L [facility] FEV1 PREDICTED (L) 1.87 L [facility] FEV1 ULN (L) 2.44 L [facility] FEV1/FVC LLN (%) 64 % [facility] FEV1/FVC PRE (%) 69 % [facility] FEV1/FVC PREDICTED (%) 78 % [facility] FVC LLN (L) 1.69 L [facility] FVC PRE (L) 2.74 L [facility] FVC PREDICTED (L) 2.47 L [facility] FVC ULN (L) 3.28 L [facility] IC PREDICTED (L) 1.65 L/S [facility] PEF LLN (L/S) 2.7 L/S [facility] PEF PRE (L/S) 4.75 L/S [facility] PEF ULN (L/S) 6.1 L/S [facility] SVC LLN (L) 1.69 L/S [facility] SVC PREDICTED (L) 2.47 L/S [facility] SVC ULN (L) 3.28 L/S [facility] VA (L) 4.32 L [facility] VA PREDICTED (L) 5.03 L [facility] CBC W Auto Differential pane l (Bld)on 01-19-2025 Basophils (Bld) [#/Vol] 0.08 10*3/uL Normal <0.11 [facility] Comment on above: Order Comment: Speci men Type: BLOOD SPECIMENOrdering Facility: [facility] Address: [address] [place] [address] Performed By: #### 5 7021-8 ####[facility] LABCLIA [id number] [place] [address] [place] Basophils/100 WBC (Bld) 1.0 % Normal [facility] Comment on above: Order Comment: Speci men Type: BLOOD SPECIMENOrdering Facility: [facility] Address: [address] [place] [address] Performed By: #### 5 7021-8 ####[facility] LABCLIA [id number] [place] [address] [place] Differential cell count method Nom (Bld) Auto Normal [facility] Comment on above: Order Comment: Speci men Type: BLOOD SPECIMENOrdering Facility: [facility] Address: [address] [place] [address] Performed By: #### 5 7021-8 ####[facility] LABCLIA [id number] [place] [address] [place] Eosinophils (Bld) [#/Vol] 0.35 10*3/uL Normal <0.46 [facility] Comment on above: Order Comment: Speci men Type: BLOOD SPECIMENOrdering Facility: [facility] Address: [address] [place] [address] Performed By: #### 5 7021-8 ####[facility] LABCLIA [id number] [place] [address] [place] Eosinophils/100 WBC (Bld) 4.5 % Normal [facility] Comment on above: Order Comment: Speci men Type: BLOOD SPECIMENOrdering Facility: [facility] Address: [address] [place] [address] Performed By: #### 5 7021-8 ####[facility] LABCLIA [id number] [place] [id number] [place] Erythrocyte distribution width (RBC) [Ratio] 13.8 % Normal 11.5-15.0 [facility] Comment on above: Order Comment: Speci men Type: BLOOD SPECIMENOrdering Facility: [facility] Address: [address] [place] [address] Performed By: #### 5 7021-8 ####[facility] LABCLIA [id number] [place] [address] [place] Hematocrit (Bld) [Volume fraction] 40.8 % Normal 36.0-46.0 [facility] Comment on above: Order Comment: Speci men Type: BLOOD SPECIMENOrdering Facility: [facility] Address: [address] [place] [address] Performed By: #### 5 7021-8 ####[facility] LABCLIA [id number] [place] [address] [place] Hemoglobin (Bld) [Mass/Vol] 12.8 g/dL Normal 11.5-15.5 [facility] Comment on above: Order Comment: Speci men Type: BLOOD SPECIMENOrdering Facility: [facility] Address: [address] [place] [address] Performed By: #### 5 7021-8 ####[facility] LABCLIA [id number] [place] [address] [place] Immature granulocytes (Bld) [#/Vol] 10*3/uL Normal <0.10 [facility] Comment on above: Order Comment: Speci men Type: BLOOD SPECIMENOrdering Facility: [facility] Address: [address] [place] [address] Performed By: #### 5 7021-8 ####[facility] LABCLIA [id number] [place] [address] [place] Immature granulocytes/100 WBC (Bld) 0.3 % Normal [facility] Comment on above: Order Comment: Speci men Type: BLOOD SPECIMENOrdering Facility: [facility] Address: [address] [place] [address] Performed By: #### 5 7021-8 ####[facility] LABCLIA [id number] [place] [address] [place] Lymphocytes (Bld) [#/Vol] 1.79 10*3/uL Normal 1.00-4.00 [facility] Comment on above: Order Comment: Speci men Type: BLOOD SPECIMENOrdering Facility: [facility] Address: [address] [place] [address] Performed By: #### 5 7021-8 ####[facility] [facility] LABIA [id number] [place] [address] [place] Lymphocytes/100 WBC (Bld) 23.1 % Normal [facility] Comment on above: Order Comment: Speci men Type: BLOOD SPECIMENOrdering Facility: [facility] Address: [address] [place] [address] Performed By: #### 5 7021-8 ####[facility] [id number] [place] [address] [place] MCH (RBC) [Entitic mass] 28.0 pg Normal 26.0-34.0 [facility] Comment on above: Order Comment: Speci men Type: BLOOD SPECIMENOrdering Facility: [facility] Address: [address] [place] [address] Performed By: #### 5 7021-8 ####[facility] [id number] [place] [address] [place] MCHC (RBC) [Mass/Vol] 31.4 g/dL Normal 30.5-36.0 [facility] Comment on above: Order Comment: Speci men Type: BLOOD SPECIMENOrdering Facility: [facility] Address: [address] [place] [address] Performed By: #### 5 7021-8 ####[facility] LABIA [id number] [place] [address] [place] MCV (RBC) [Entitic vol] 89.3 fL Normal 80.0-100.0 C [facility] Comment on above: Order Comment: Speci men Type: BLOOD SPECIMENOrdering Facility: [facility] Address: [address] [place] [address] Performed By: #### 5 7021-8 ####[facility] LABCLIA [id number] [facility] [address] [place] [address] [place] Monocytes (Bld) [#/Vol] 0.75 10*3/uL Normal <0.87 [facility] Comment on above: Order Comment: Speci men Type: BLOOD SPECIMENOrdering Facility: [facility] Address: [address] [place] [address] Performed By: #### 5 7021-8 ####[facility] LABCLIA [id number] [facility] [address], [facility] [place] Monocytes/100 WBC (Bld) 9.7 % Normal [facility] Comment on above: Order Comment: Speci men Type: BLOOD SPECIMENOrdering Facility: [facility] Address: [address] [place] [address] Performed By: #### 5 7021-8 ####[facility] LABCLIA [id number] [place] [address] [place] Neutrophils (Bld) [#/Vol] 4.76 10*3/uL Normal 1.45-7.50 [facility] Comment on above: Order Comment: Speci men Type: BLOOD SPECIMENOrdering Facility: [facility] Address: [address] [place] [address] Performed By: #### 5 7021-8 ####[facility] LABCLIA [id number] [address], [facility] [place] Neutrophils/100 WBC (Bld) 61.4 % Normal [facility] Comment on above: Order Comment: Speci men Type: BLOOD SPECIMENOrdering Facility: [facility] Address: [address] [place] [address] Performed By: #### 5 7021-8 ####[facility] LABCLIA [id number] [address] [place] [address] [place] Nucleated RBC (Bld) [#/Vol] 10*3/uL Normal <0.01 [facility] Comment on above: Order Comment: Speci men Type: BLOOD SPECIMENOrdering Facility: [facility] Address: [address] [place] [address] Performed By: #### 5 7021-8 ####[facility] LABCLIA [id number] [place] [address] [place] Nucleated RBC/100 WBC (Bld) [Ratio] 0.0 /100 WBC Normal [facility] Comment on above: Order Comment: Speci men Type: BLOOD SPECIMENOrdering Facility: [facility] Address: [address] [place] [address] Performed By: #### 5 7021-8 ####[facility] LABIA [id number] [place] [address] [place] Platelet mean volume (Bld) [Entitic vol] 10.9 fL Normal 9.0-12.7 [facility] Comment on above: Order Comment: Speci men Type: BLOOD SPECIMENOrdering Facility: [facility] Address: [address] [place] [address] Performed By: #### 5 7021-8 ####[facility] LABIA [id number] [place] [address] [place] Platelets (Bld) [#/Vol] 369 10*3/uL Normal 150-400 [facility] Comment on above: Order Comment: Speci men Type: BLOOD SPECIMENOrdering Facility: [facility] Address: [address] [place] [address] Performed By: #### 5 7021-8 ####[facility] LABIA [id number] [place] [address] [place] RBC (Bld) [#/Vol] 4.57 10*6/uL Normal 3.90-5.20 [facility] Comment on above: Order Comment: Speci men Type: BLOOD SPECIMENOrdering Facility: [facility] Address: [address] [place] [address] Performed By: #### 5 7021-8 ####[facility] LABCLIA [id number] [place] [address] [place] WBC (Bld) [#/Vol] 7.75 10*3/uL Normal 3.70-11.00 [facility] Comment on above: Order Comment: Speci men Type: BLOOD SPECIMENOrdering Facility: [facility] Address: [address] [place] [address] Performed By: #### 5 7021-8 ####[facility] LABCLIA [id number] [address] [place] CNOVon 01-19-2025 CNOV Office Visit (FAMWS ) ANNE MARIE GARZA ([id number]) 1940 F Date Time Provider Department 01/19/25 9:00 AM [facility] During your visit today, we recorded the following information about you: Pulse Respiration Blood pressure Weight 62/minute 16/minute 148/74 79.4 kg Max Rodriguez MD 01/19/2025 12:49 PM Signed Chief Complaint Patient presents with: Injections: Bilateral knee injection HPI Anne Marie Garza is a 84 year old female who presents here today for bilateral knee injection. Patient here for bilateral knee pain. Does not want surgery and so being managed per steroid injections every 4 months per patient's request. Past medical history, appointments, medications, allergies reviewed. Previous Medical History PAST MEDICAL HISTORY Diagnosis Date Acquired hypothyroidism 08/02/2015 Advance directive discussed with patient 01/20/2023 Discussed 01/2023: Up to date Anxiety 01/19/2010 -continue home citalopram Bilateral carotid artery stenosis 12/31/2023 US 12/2023: Rt 20-40% Lt 60-80% BPV (benign positional vertigo) 08/02/2015 Chronic pain of both knees 05/24/2020 Seeing Ortho: Dr. Whiteside Coronary artery 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 08/02/2015 Not seeing cardiology Degenerative disc disease, lumbar 05/26/2018 Elevated hemoglobin (HCC) 04/17/2020 to be rechecked 05/17/2020 Elevated hemoglobin A1c 12/30/2017 Epidermal inclusion cyst 09/09/2019 anterior chest wall excised 08/2019 Essential hypertension 01/26/2017 GERD without esophagitis 07/08/2022 Graves disease Heart attack (HCC) [facility] stent in heart History of COVID-19 07/08/202205/2022 History of non-ST elevation myocardial infarction (NSTEMI) 01/19/201001/2010 Intradermal nevus 12/30/2014 right inferrior medial breast Keratosis, inflamed seborrheic 12/30/2014 right upper back Left carpal tunnel syndrome 01/04/[address] 12/03/2021 Daughter Truong is DPOA Low vitamin B12 level 04/06/2014 Lumbar radicular pain 05/26/2018 Added automatically from request for surgery [id number] Lump or mass in breast 01/20/2023 Patient [...] 2D ECHO (EXEP) 12/21/2019 EF=60%, 1+ TI, AR, AI 2D ECHO (EXEP) 02/17/2021 EF= 60%, mod santos dysf, ARTHRP ACETBLR/PROX FEM PROSTC AGRFT/ALGRFT Right 12/30/2018 Hip replacement, total CC CORONARY STENT 12/21/2019 MARCOS to mLCx COLONOSCOPY 05/01/2016 serrated adenoma/Repeat 04/2019 COLONOSCOPY COLONOSCOPY AND POLYPECTOMY 09/13/2006 hyperplastic polyp- repeat 2015 CORONARY STENT EA VESSEL 01/2010 ESOPHAGOGASTRODUODENOS COPY TRANSORAL DIAGNOSTIC 07/02/2021 LEXISCAN STRESS TEST 02/17/2021 [...] Other: See Comments Dehydrated, nauseated and week Mary Inhibitors Cough Chantix [Vareniclin* Other: See Comments Bad dreams Lipitor [Atorvastat* Other: See Comments Muscle pains Mucinex [Guaifenesi* Mental Status Change dizzine (more content not included)... Normal [facility] Comprehensive metabolic 2000 panelon 01-19-2025 Albumin [Mass/Vol] 3.8 g/dL Low 3.9-4.9 [facility] Comment on above: Order Comment: Speci men Type: BLOOD SPECIMEN [facility] Address: [address] [place] [address] Performed By: #### 2 4321-2 #### [facility] [place] CLIA [id number] [address] [place] [address] [place] ALP [Catalytic activity/Vol] 59 U/L Normal 34-123 [facility] Comment on above: Order Comment: Speci men Type: BLOOD SPECIMEN [facility] Address: [facility] [place] [address] Performed By: #### 2 4321-2 #### [facility] [place] CLIA [id number] [address] [place] [address] [place] ALT [Catalytic activity/Vol] 11 U/L Normal 7-38 [facility] Comment on above: Order Comment: Speci men Type: BLOOD SPECIMEN [facility] Address: [address] [place] [address] Performed By: #### 2 4321-2 #### [facility] CLIA [id number] [address] [place] [address] [place] Anion gap [Moles/Vol] 11 mmol/L Normal 8-15 [facility] Comment on above: Order Comment: Speci men Type: BLOOD SPECIMEN [facility] Address: [address] [place] [address] Performed By: #### 2 4321-2 #### [facility] CLIA [id number] [address] [place] [address] [place] AST [Catalytic activity/Vol] 17 U/L Normal 13-35 [facility] Comment on above: Order Comment: Speci men Type: BLOOD SPECIMEN [facility] Address: [facility] [place] [address] Performed By: #### 2 4321-2 #### [facility] [place] CLIA [id number] [address] [place] [address] [place] Bilirubin [Mass/Vol] 0.4 mg/dL Normal 0.2-1.[address] [facility] Comment on above: Order Comment: Speci men Type: BLOOD SPECIMEN [facility] Address: [address] [place] [address] Performed By: #### 2 4321-2 #### [facility] CLIA [id number] [address] [place] [address] [place] Calcium [Mass/Vol] 9.5 mg/dL Normal 8.5-10.2 [facility] Comment on above: Order Comment: Speci men Type: BLOOD SPECIMEN [facility] Address: [address] [place] [address] Performed By: #### 2 4321-2 #### [facility] CLIA [id number] [address] [place] [address] [place] Chloride [Moles/Vol] 100 mmol/L Normal 98-[address] [facility] Comment on above: Order Comment: Speci men Type: BLOOD SPECIMEN [facility] Address: [address] [place] [address] Performed By: #### 2 4321-2 #### [facility] CLIA [id number] [address] [place] [address] [place] CO2 [Moles/Vol] 27 mmol/L Normal 22-30 [facility] Comment on above: Order Comment: Speci men Type: BLOOD SPECIMEN [facility] Address: [address] [place] [address] Performed By: #### 2 4321-2 #### [facility] CLIA [id number] [address] [place] [address] [place] Creatinine [Mass/Vol] 1.10 mg/dL High 0.58-0.96 [facility] Comment on above: Order Comment: Speci men Type: BLOOD SPECIMEN [facility] Address: [address] [place] [address] Performed By: #### 2 4321-2 #### [facility] [id number] [address] [place] [address] [place] Creatinine and Glomerular filtration rate.predicted panel (S/P/Bld) 50 mL/min/1.73m??? Low >=60 [facility] Comment on above: Order Comment: Hermelinda peterson Type: BLOOD SPECIMEN [facility] Address: [address] [place] [address] Result Comment: Josi mated Glomerular Filtration Rate (eGFR) is calculated using the 2020 CKD-EPI creatinine equation. This equation utilizes serum creatinine, sex, and age as parameters. The creatinine assay has traceable calibration to isotope dilution-mass spectrometry. Refer to KDIGO guidelines for clinical interpretation. In patients with unstable renal function, e.g. those with acute kidney injury, the eGFR may not accurately reflect actual GFR. Performed By: #### 2 4321-2 #### [facility] [id number] [address] [place] [address] [place] Glucose [Mass/Vol] 92 mg/dL Normal 74-99 [facility] Comment on above: Order Comment: Hermelinda peterson Type: BLOOD SPECIMEN [facility] Address: [address] [place] [address] Result Comment: The [place] Diabetes Association (ADA) provides guidance for cutoff values for fasting glucose and random glucose. The ADA defines fasting as no caloric intake for at least 8 hours. Fasting plasma glucose results between 100 to 125 mg/dL indicate increased risk for diabetes (prediabetes). Fasting plasma glucose results greater than or equal to 126 mg/dL meet the criteria for diagnosis of diabetes. In the absence of unequivocal hyperglycemia, results should be confirmed by repeat testing. In a patient with classic symptoms of hyperglycemia or hyperglycemic crisis, random plasma glucose results greater than or equal to 200 mg/dL meet the criteria for diagnosis of diabetes. Reference: Standards of Medical Care in Diabetes 2016, [place] Diabetes Association. Diabetes Care. 2016.39(Suppl 1). Performed By: #### 2 4321-2 #### [facility] [id number] [address] [place] [address] [place] Potassium [Moles/Vol] 4.5 mmol/L Normal 3.7-5.1 [facility] Comment on above: Order Comment: Speci men Type: BLOOD SPECIMEN [facility] Address: [address] [place] [address] Performed By: #### 2 4321-2 #### [facility] CLIA [id number] [address] [place] [address] [place] Protein [Mass/Vol] 7.5 g/dL Normal 6.3-8.0 [facility] Comment on above: Order Comment: Speci men Type: BLOOD SPECIMEN [facility] Address: [address] [place] [address] Performed By: #### 2 4321-2 #### [facility] [id number] [address] [place] [address] [place] Sodium [Moles/Vol] 138 mmol/L Normal 136-144 [facility] Comment on above: Order Comment: Speci men Type: BLOOD SPECIMEN [facility] Address: [address] [place] [address] Performed By: #### 2 4321-2 #### [facility] [id number] [address] [place] [address] [place] Urea nitrogen [Mass/Vol] 28 mg/dL High 7-21 [facility] Comment on above: Order Comment: Speci men Type: BLOOD SPECIMEN [facility] Address: [address] [place] [address] Performed By: #### 2 4321-2 #### [facility] [id number] [address] [place] [address] [place] HbA1c (Bld)on 01-19-2025 Average glucose Estimated from glycated hemoglobin (Bld) [Mass/Vol] 117 mg/dL Normal [facility] Comment on above: Order Comment: Hermelinda peterson Type: BLOOD SPECIMEN [facility] Address: [address] [place] [address] Result Comment: eAG: (Estimated average glucose) is a calculated value from HgbA1c and is insurance service representative of the average blood glucose level in the last 2-3 month period. Performed By: #### 2 4321-2 #### [facility] CLIA [id number] [address] [place] [address] [place] HbA1c (Bld) [Mass fraction] 5.7 % High 4.3-5.6 [facility] Comment on above: Order Comment: Hermelinda peterson Type: BLOOD SPECIMEN [facility] Address: [address] [place] [address] Result Comment: [facility] Diabetes Association guidelines indicate that patients with HgbA1c in the range 5.7-6.4% are at increased risk for development of diabetes, and intervention by lifestyle modification may be beneficial. HgbA1c greater or equal to 6.5% is considered diagnostic of diabetes. Performed By: #### 2 4321-2 #### [facility] CLIA [id number] [address] [place] [address] [place] LIPID PANEL, NONFASTINGon Cholesterol [Mass/Vol] 158 mg/dL Normal <200 [facility] Comment on above: Order Comment: Hermelinda peterson Type: BLOOD SPECIMEN [facility] Address: [address] [place] [address] Result Comment: <200 mg/dL, Desirable 200-239 mg/dL, Borderline high >239 mg/dL, High Performed By: #### 2 4321-2 #### [facility] [id number] [address] [place] [address] [place] HDL CHOLESTEROL, NF 51 mg/dL Normal >39 [facility] Comment on above: Order Comment: Hermelinda peterson Type: BLOOD SPECIMEN [facility] Address: [address] [place] [address] Result Comment: 40-5 9 mg/dL, Acceptable >59 mg/dL, High: Negative risk factor for coronary heart disease <40 mg/dL, Low: Positive risk factor for coronary heart disease Performed By: #### 2 4321-2 #### [facility] CLIA [id number] [address] [place] [address] [place] LDL CHOLESTEROL, NF 88 mg/dL Normal <100 [facility] Comment on above: Order Comment: Hermelinda peterson Type: BLOOD SPECIMEN [facility] Address: [address] [place] [address] Result Comment: <100 mg/dL, Optimal 100-129 mg/dL, Near optimal/above optimal 130-159 mg/dL, Borderline high 160-189 mg/dL, High >189 mg/dL, Very high Secondary prevention optimal LDL Cholesterol levels are recommended to be < 70 mg/dL Performed By: #### 2 4321-2 #### [facility] [id number] [address] [place] [address] [place] LDL/HDL RATIO, NF 1.73 mg/dL Normal <2.54 [facility] Comment on above: Order Comment: Hermelinda peterson Type: BLOOD SPECIMEN [facility] Address: [address] [place] [address] Result Comment: Refbrent child: 1. National Cholesterol Education Program ATP III Guideline At-A-Glance Quick Desk Reference: National Heart, Lung, and Blood Moro. National Institutes of Health. 2001: NIH Publication No. 01-3305. 2. An International Atherosclerosis Society position paper: global recommendations for the management of dyslipidemia: executive summary, Atherosclerosis. 2014: 232(2):410-413. Performed By: #### 2 4321-2 #### [facility] [id number] [address] [place] [address] [place] NON HDL CHOL, NF 107 mg/dL Normal <130 [facility] Comment on above: Order Comment: Hermelinda peterson Type: BLOOD SPECIMEN [facility] Address: [address] [place] [address] Result Comment: <130 mg/dL, Optimal 130-159 mg/dL, Near optimal/above optimal 160-189 mg/dL, Borderline high 190-219 mg/dL, High >219 mg/dL, Very high Secondary prevention optimal non HDL Cholesterol levels are recommended to be <100 mg/dL Performed By: #### 2 4321-2 #### [facility] CLIA [id number] [address] [place] [address] STATES [place] [facility] T CHOL/HDL RATIO NF 3.10 mg/dL Normal <5.10 [facility] Comment on above: Order Comment: Speci men Type: BLOOD SPECIMEN [facility] Address: [address] [place] [address] Performed By: #### 2 4321-2 #### [facility] CLIA [id number] [address] [place] [address] [place] TRIGLYCERIDES, NF 95 mg/dL Normal <150 [facility] Comment on above: Order Comment: Speci men Type: BLOOD SPECIMEN [facility] Address: [address] [place] [address] Result Comment: <150 mg/dL, Normal 150-199 mg/dL, Borderline high 200-499 mg/dL, High >499 mg/dL, Very high Performed By: #### 2 4321-2 #### [facility] CLIA [id number] [address] [place] [address] [place] VLDL CHOLESTEROL, NF 19 mg/dL Normal <[address] [facility] Comment on above: Order Comment: Speci men Type: BLOOD SPECIMEN [facility] Address: [address] [place] [address] Performed By: #### 2 4321-2 #### [facility] CLIA [id number] [address] [place] [address] [place] [facility] Magnesium [Mass/Vol] 2.0 mg/dL Normal 1.7-2.[address] [facility] Comment on above: Order Comment: Speci men Type: BLOOD SPECIMEN [facility] Address: [address] [place] [address] Performed By: #### 2 4321-2 #### [facility] CLIA [id number] [address] [place] [address] [place] TSH SerPl-aCncon 01-19-2025 TSH Qn 0.523 m[IU]/L Normal 0.270-4.200 [facility] Comment on above: Order Comment: Speci men Type: BLOOD SPECIMEN [facility] Address: [address] [place] [address] Performed By: #### 2 4321-2 #### [facility] CLIA [id number] [address] [place] [address] [place] Urinalysis complete panel (U )on 01-19-2025 Bacteria LM.HPF (Urine sed) [#/Area] Negative Normal Negative [facility] Comment on above: Order Comment: Speci men Type: URINE SPECIMENOrdering Facility: [facility] Address: [address] [place] [address] Performed By: #### 2 4356-8 ####[facility] LABCLIA [id number] [place] [address] [place] Bilirubin Ql (U) Negative Normal Negative [facility] Comment on above: Order Comment: Speci men Type: URINE SPECIMENOrdering Facility: [facility] Address: [address] [place] [address] Performed By: #### 2 4356-8 ####[facility] LABCLIA [id number] [place] [address] [place] Clarity (Unsp spec) Cloudy Abnormal Clear [facility] Comment on above: Order Comment: Speci men Type: URINE SPECIMENOrdering Facility: [facility] Address: [address] [place] [address] Performed By: #### 2 4356-8 ####[facility] LABCLIA [id number] [place] [address] [place] [facility] Color (U) Yellow Normal Yellow [facility] Comment on above: Order Comment: Speci men Type: URINE SPECIMENOrdering Facility: [facility] Address: [address] [place] [address] Performed By: #### 2 4356-8 ####[facility] LABCLIA [id number] [place] [address] [place] Epithelial cells LM.HPF (Urine sed) [#/Area] Moderate Normal [facility] Comment on above: Order Comment: Speci men Type: URINE SPECIMENOrdering Facility: [facility] Address: [address] [place] [place] [address] Result Comment: Mode rate Performed By: #### 2 4356-8 ####[facility] LABCLIA [id number] [place] [address] [place] Glucose Test strip (U) [Mass/Vol] Negative Normal Negative [facility] Comment on above: Order Comment: Speci men Type: URINE SPECIMENOrdering Facility: [facility] Address: [address] [place] [address] Performed By: #### 2 4356-8 ####[facility] LABCLIA [id number] [place] [address] [place] Hemoglobin Ql (U) Negative Normal Negative [facility] Comment on above: Order Comment: Speci men Type: URINE SPECIMENOrdering Facility: [facility] Address: [address] [place] [address] Performed By: #### 2 4356-8 ####[facility] LABCLIA [id number] [place] [id number] [place] Hyaline casts (Urine sed) [#/Area] 1-3 /LPF Abnormal 0 /LPF [facility] Comment on above: Order Comment: Speci men Type: URINE SPECIMENOrdering Facility: [facility] Address: [address] [place] [address] Performed By: #### 2 4356-8 ####[facility] LABCLIA [id number] [facility] [address] [place] [address] [place] Ketones Ql (U) Negative Normal Negative [facility] Comment on above: Order Comment: Speci men Type: URINE SPECIMENOrdering Facility: [facility] Address: [address] [place] [address] Performed By: #### 2 4356-8 ####[facility] LABCLIA [id number] [address], [facility] [place] Leukocyte esterase Test strip Ql (U) Negative Normal Negative [facility] Comment on above: Order Comment: Speci men Type: URINE SPECIMENOrdering Facility: [facility] Address: [address] [place] [address] Performed By: #### 2 4356-8 ####[facility] LABCLIA [id number] [address], [facility] [place] Nitrite Ql (U) Negative Normal Negative [facility] Comment on above: Order Comment: Speci men Type: URINE SPECIMENOrdering Facility: [facility] Address: [address] [place] [address] Performed By: #### 2 4356-8 ####[facility] LABCLIA [id number] [facility] [address] [place] [address] [place] pH (U) 6.5 [pH] Normal <8.5 [facility] Comment on above: Order Comment: Speci men Type: URINE SPECIMENOrdering Facility: [facility] Address: [address] [place] [address] Performed By: #### 2 4356-8 ####[facility] LABCLIA [id number] [place] [address] [place] Protein (U) [Mass/Vol] 2+ Abnormal Negative Cl [facility] Comment on above: Order Comment: Speci men Type: URINE SPECIMENOrdering Facility: [facility] Address: [address] [place] [address] Performed By: #### 2 4356-8 ####[facility] LABIA [id number] [place] [address] [place] RBC LM.HPF (Urine sed) [#/Area] 0-2 /HPF Normal 0-2 /HPF [facility] Comment on above: Order Comment: Speci men Type: URINE SPECIMENOrdering Facility: [facility] Address: [address] [place] [address] Performed By: #### 2 4356-8 ####[facility] LABIA [id number] [place] [address] [place] Specific gravity (U) [Rel density] 1.022 Normal 1.005-1.030 [facility] Comment on above: Order Comment: Speci men Type: URINE SPECIMENOrdering Facility: [facility] Address: [address] [place] [address] Performed By: #### 2 4356-8 ####[facility] LABIA [id number] [address] [place] Urobilinogen Ql (U) 1.0 EU/dL Normal 0.2-1.0 EU/dL [facility] Comment on above: Order Comment: Speci men Type: URINE SPECIMENOrdering Facility: [facility] Address: [address] [place] [address] Performed By: #### 2 4356-8 ####[facility] LABIA [id number] [place] [address] [place] WBC LM.HPF (Urine sed) [#/Area] 0-5 /HPF Normal 0-5 /HPF [facility] Comment on above: Order Comment: Speci men Type: URINE SPECIMENOrdering Facility: [facility] Address: [address] [place] [address] Performed By: #### 2 4356-8 ####[facility] LABCLIA [id number] [place] [address] [place] Yeast.budding LM.HPF (Urine sed) [#/Area] Present Abnormal None Seen [facility] Comment on above: Order Comment: Speci men Type: URINE SPECIMENOrdering Facility: [facility] Address: [address] [place] [address] Performed By: #### 2 4356-8 ####[facility] LABCLIA [id number] [place] [address] [place] Vit B12 [facility] 025 Cobalamin (Vitamin B12) [Mass/Vol] 283 pg/mL Normal 232-1245 [facility] Comment on above: Order Comment: Speci men Type: BLOOD SPECIMEN [facility] Address: [address] [place] [address] Performed By: #### 2 132-9 #### [facility] LAB CLIA [id number] [address] [place] [address] [place] Eboni 01-16-2025 [facility] Telephone ([facility]) ANNE MARIE GARZA ([id number]) 1940 F Date Time Provider Department 01/16/25 [facility] During your visit today, we recorded the following information about you: Orly Richardson LPN 01/16/2025 1:03 PM Signed Received results of pt's upper GI/barium swallow test done at [facility] and ordered by pcp. Orly Richardson LPN Scan on 01/16/2025 11:34 AM by Provider, VIN Ratliff: X-ray Max Rodriguez MD 01/16/2025 1:45 PM Signed Let patient know her upper GI x-ray was unremarkable. Placed order for her to see Dr. Macias for possible scope. Beau Singh RN 01/17/2025 8:09 AM Signed Phoned patient and given provider message to daughter, Kailyn, with verbalized understanding. Daughter agreeable. Allergies As of Date: 01/16/2025 Noted Allergy Reaction IODINE 01/19/2010 10 - Anaphylaxis HCTZ (THIAZIDES) 03/20/2022 14 - Other: See Comments Comments: Dehydrated, nauseated and week MARY INHIBITORS 07/19/2017 3 - Cough CHANTIX (VARENICLINE) 03/22/2014 14 - Other: See Comments Comments: Bad dreams LIPITOR (ATORVASTATIN CALCIUM) 01/26/2017 14 - Other: See Comments Comments: Muscle pains MUCINEX (GUAIFENESIN) 02/16/2017 1 - Mental Status Change Comments: dizziness and confusion PRAVACHOL (PRAVASTATIN SODIUM) 01/26/2017 14 - Other: See Comments Comments: Muscle aches ZANAFLEX (TIZANIDINE) 10/14/2016 14 - Other: See Comments Comments: Caused pt to feel jittery all over Date Reviewed: 09/19/2024 Reviewed by: Max Rodriguez MD - Fully Assessed Reason for Visit: Results [95] Primary Visit Diagnosis:Esophageal dysphagia [R13.19] Order(s):CONSULT TO GASTROENTEROLOGY [9010] Order #: [id number]: 1 FUTURE Prescriptions as of 01/17/2025 - cefADROxil (DURICEF) 500 mg capsule Take 1 capsule by mouth two times a day for 10 days. - celecoxib (CELEBREX) 200 mg capsule Take 1 capsule by mouth two times a day. - traMADol (ULTRAM) 50 mg tablet Take 1 tablet by mouth every 8 hours as needed for pain for up to 90 days. Patient should start on January 04, 2025. - albuterol HFA (PROVENTIL HFA, VENTOLIN HFA) 90 mcg/actuation inhaler Inhale 2 Puffs as instructed every 4 hours as needed. - levothyroxine (LEVOXYL) 137 mcg tablet Take one tab by mouth once a day Wed-Wed, 1/2 on Wed and none on Wednesday. Take on empty stomach. For Thyroid. - amLODIPine (NORVASC) 5 mg tablet Take 1 tablet by mouth once daily. - metoprolol succinate ER (TOPROL XL) 100 mg Take 1 tablet by mouth once daily. - omeprazole (PRILOSEC) 40 mg capsule Take 1 capsule by mouth two times a day. - rosuvastatin (CRESTOR) 5 mg tablet Take 1 tablet by mouth once daily. - valsartan (DIOVAN) 320 mg tablet Take 1 tablet by mouth once daily. - fluticasone-salmeterol (WIXELA INHUB) 250-50 mcg/dose inhaler Inhale 1 Puff as instructed two times a day. - DULoxetine (CYMBALTA) 30 mg capsule Take 1 capsule by mouth once daily. In place of the Citaloram - nitroglycerin sublingual (NITROQUICK) 0.4 mg SL tablet Dissolve 1 tablet under the tongue every 5 minutes as needed. - ondansetron orally disintegrating (ZOFRAN ODT) 4 mg disintegrating tablet Take 1 tablet by mouth every 6 hours as needed for nausea/vomiting. - aspirin, enteric coated (ASPIRIN, ENTERIC COATED) 81 mg EC tablet Take 81 mg by mouth once daily. Problem List As Of Date 01/16/2025 Noted Resolved SUMMARY [V999.95] 01/19/2010 11/04/2011 History of non-ST elevation myocardial infarcti*01/19/2010 Mixed hyperlipidemia [E78.2] 01/19/2010 Anxiety [F41.9] 01/19/2010 Ex-smoker [Z87.891] 01/19/2010 Low vitamin B12 level [R79.89] 04/06/2014 Intradermal nevus [D23.9] 12/30/2014 Keratosis, inflamed seborrheic [L82.0] 12/30/2014 Colon cancer screening [Z12.11] 04/02/2015 Severe obstructive sleep apnea AHI 32.5 [G47.3*04/24/2015 Coronary artery disease due to lipid rich plaqu*08/02/2015 Acquired hypothyroidism [E03.9] 08/02/2015 BPV (benign positional vertigo) [H81.10] 08/02/2015 Pulmonary emphysema (HCC) [J43.9] 08/02/2015 Trigger middle finger of left hand [M65.332] 08/04/2015 Trigger index finger of left hand [M65.322] 08/22/2015 Osteoarthritis [M19.90] 11/28/2015 Recurrent major depressive disorder, in partial*04/14/2016 Pain in right hip [M25.551] 04/29/2016 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 Normal [facility] Upper GI w/BA Swallowon 01-06 Upper GI w/BA Swallow [facility] [address] [place] [id number] Upper GI w/BA Swallow MR#: [id number] Acct: [id number] Name: ANNE MARIE GARZA Rep #: [id number] : 1940 F 84 From: Amador palomino MD PCP: Dr. Max Rodriguez MD Status: REG CLI Study: Upper GI w/BA Swallow Date of Exam: 01/16/25 Exam# [id number] Ordering Dr: Max Rodriguez MD PROCEDURE: UPPER GI W/BA SWALLOW REASON FOR EXAM: DYSPHAGIA TECHNIQUE: FLUOROSCOPIC TIME: 1 minute and 7 seconds minutes FLUOROGRAPHIC IMAGES: 34 COMPARISON: None. FINDINGS: The patient ingested barium. Multiple images of the esophagus, stomach and duodenum were obtained. The esophagus is unremarkable. No evidence of obstruction. No mass lesion is seen. The patient ingested a 12 mm tablet the barium without any difficulty. The stomach and duodenum are unremarkable. No evidence of gastroesophageal reflux. No mass lesion is seen. Atherosclerotic plaque formation of the aortic arch. Degenerative changes of the visualized dorsal spine. RAD/Upper GI w/BA Swallow IMPRESSION: Unremarkable esophagram and upper GI series. Reading Location: [facility] CC: Dr. Max Rodriguez MD [employer] Salesperson: Signed Normal [facility] CNOVon 01-10-2025 CNOV Office Visit ([facility]AMPWS ) ANNE MARIE GARZA ([id number]) 1940 F Date Time Provider Department 01/10/25 11:40 AM MAX RODRIGUEZ During your visit today, we recorded the following information about you: Temperature Pulse Respiration Blood pressure 98 degrees 72/minute 18/minute 136/70 Weight 79.4 kg Max Rodriguez MD 01/10/2025 2:09 PM Signed Chief Complaint Patient presents with: Sore Throat Anne Marie Misty Garza is a 84 year old female who presents here today for dry cough/SOB/sore throat; increased in SOB/swelling increased. No chest pain. Chocking on food; all food; has tried smaller bites. Patient has been taking her omeprazole twice a day every day. Has not noted any acid burning up into her throat no acid taste. The sore throat is only on the right side and has been going on for about two weeks. The dysphagia with solids only has been going on for about 2 months. Grand daughter who resides in her home was treated for step 3 weeks ago the dysphagia is with solids only. The cough is throughout the day and night. No increased nasal discharge or a sensation of post nasal drainage. No nausea or epigastric pain. Is getting very easily winded with trying to ambulate. Has a reduced stamina. No chest pains. No palpitations. Patient saw Pulmonary (Dr Nicholas) but didn't want to do any further testing. Patient also sees Dr. Rasmussen in March 2025. Did walking test on RA and was 92-93% SaO2 ; Pulse at 94-96; no dizziness or lightheadedness; no chest. Just felt weak. At rest 95% on RA 72 pulse Patient with Hx of hypothyroidism, CAD, COPD, HTN, elevated A1c, hyperlipidemia, emphysema, depression, anxiety, obesity, MATT, smoker, low B12, Arthritis with chronic pain especially the knees as well as those reviewed and addressed below and in ROS. Past medical history, appointments, medications, allergies reviewed. Previous Medical History PAST MEDICAL HISTORY Diagnosis Date Acquired hypothyroidism 08/02/2015 Advance directive discussed with patient 01/20/2023 Discussed 01/2023: Up to date Anxiety Anxiety 01/19/2010 -continue home citalopram Bilateral carotid artery stenosis 12/31/2023 US 12/2023: Rt 20-40% Lt 60-80% BPV (benign positional vertigo) 08/02/2015 Chronic pain of both knees 05/24/2020 Seeing Ortho: Dr. Whiteside Coronary artery 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 08/02/2015 Not seeing cardiology Degenerative disc disease, lumbar 05/26/2018 Elevated hemoglobin (HCC) 04/17/2020 to be rechecked 05/17/2020 Elevated hemoglobin A1c 12/30/2017 Epidermal inclusion cyst 09/09/2019 anterior chest wall excised 08/2019 Essential hypertension 01/26/2017 GERD without esophagitis 07/08/2022 Graves disease Heart attack (HCC) [facility] stent in heart History of COVID-19 07/08/202205/2022 History of non-ST elevation myocardial infarction (NSTEMI) 01/19/201001/2010 Intradermal nevus 12/30/2014 right inferrior medial breast Keratosis, inflamed seborrheic 12/30/2014 right upper back Left carpal tunnel syndrome 01/04/[address] 12/03/2021 Daughter Truong is DPOA Low vitamin B12 level 04/06/2014 Lumbar radicular pain 05/26/2018 Added automatically from request for surgery [id number] Lump or mass in breast 01/20/2023 Patient [...] Recurrent major depressive disorder, in partial remission ([facility]) 04/14/2016 Severe obstructive sleep apnea AHI 32.5 [...] 2D ECHO (EXEP) 12/21/2019 EF=60%, 1+ TI, AR, AI 2D ECHO (EXEP) 02/17/2021 EF= 60%, mod santos dysf, ARTHRP ACETBLR/PROX FEM PROSTC AGRFT/ALGRFT Right 12/30/2018 Hip replacement, total CC CORONARY STENT 12/21/2019 MARCOS to mLCx COLONOSCOPY 05/01/2016 serrated adenoma/Repeat (more content not included)... Normal [facility] Eboni 10-11-2024 [facility] Telephone ([facility]) ANNE MARIE GARZA ([id number]) 1940 F Date Time Provider Department 10/11/24 DORA WHITMAN During your visit today, we recorded the following information about you: Dora Whitman PA-C 10/11/2024 11:29 AM Signed Tsh is now in normal range. Continue current dosing of thyroid med. VIN Bullard Sherill A, LPN 10/11/2024 11:57 AM Signed Pt's daughter notified of results and instructions. She verbalizes understanding. She advises that she has taken over giving pt her medications. She thinks that pt was getting confused and not taking them correctly. Orly Richardson LPN Allergies As of Date: 10/11/2024 Noted Allergy Reaction IODINE 01/19/2010 10 - Anaphylaxis HCTZ (THIAZIDES) 03/20/2022 14 - Other: See Comments Comments: Dehydrated, nauseated and week MARY INHIBITORS 07/19/2017 3 - Cough CHANTIX (VARENICLINE) 03/22/2014 14 - Other: See Comments Comments: Bad dreams LIPITOR (ATORVASTATIN CALCIUM) 01/26/2017 14 - Other: See Comments Comments: Muscle pains MUCINEX (GUAIFENESIN) 02/16/2017 1 - Mental Status Change Comments: dizziness and confusion PRAVACHOL (PRAVASTATIN SODIUM) 01/26/2017 14 - Other: See Comments Comments: Muscle aches ZANAFLEX (TIZANIDINE) 10/14/2016 14 - Other: See Comments Comments: Caused pt to feel jittery all over Date Reviewed: 09/19/2024 Reviewed by: Max Rodriguez MD - Fully Assessed Reason for Visit: Results [95] Prescriptions as of 10/11/2024 - levothyroxine (LEVOXYL) 137 mcg tablet Take one tab by mouth once a day Wed-Wed, 1/2 on Wed and none on Wednesday. Take on empty stomach. For Thyroid. - traMADol (ULTRAM) 50 mg tablet Take 1 tablet by mouth every 8 hours as needed for pain for up to 90 days. - amLODIPine (NORVASC) 5 mg tablet Take 1 tablet by mouth once daily. - metoprolol succinate ER (TOPROL XL) 100 mg Take 1 tablet by mouth once daily. - omeprazole (PRILOSEC) 40 mg capsule Take 1 capsule by mouth two times a day. - rosuvastatin (CRESTOR) 5 mg tablet Take 1 tablet by mouth once daily. - valsartan (DIOVAN) 320 mg tablet Take 1 tablet by mouth once daily. - fluticasone-salmeterol (WIXELA INHUB) 250-50 mcg/dose inhaler Inhale 1 Puff as instructed two times a day. - DULoxetine (CYMBALTA) 30 mg capsule Take 1 capsule by mouth once daily. In place of the Citaloram - celecoxib (CELEBREX) 200 mg capsule Take 1 capsule by mouth two times a day. - nitroglycerin sublingual (NITROQUICK) 0.4 mg SL tablet Dissolve 1 tablet under the tongue every 5 minutes as needed. - ondansetron orally disintegrating (ZOFRAN ODT) 4 mg disintegrating tablet Take 1 tablet by mouth every 6 hours as needed for nausea/vomiting. - albuterol HFA (PROVENTIL HFA, VENTOLIN HFA) 90 mcg/actuation inhaler Inhale 2 Puffs as instructed every 4 hours as needed. - aspirin, enteric coated (ASPIRIN, ENTERIC COATED) 81 mg EC tablet Take 81 mg by mouth once daily. Problem List As Of Date 10/11/2024 Noted Resolved SUMMARY [V999.95] 01/19/2010 11/04/2011 History of non-ST elevation myocardial infarcti*01/19/2010 Mixed hyperlipidemia [E78.2] 01/19/2010 Anxiety [F41.9] 01/19/2010 Ex-smoker [Z87.891] 01/19/2010 Low vitamin B12 level [R79.89] 04/06/2014 Intradermal nevus [D23.9] 12/30/2014 Keratosis, inflamed seborrheic [L82.0] 12/30/2014 Colon cancer screening [Z12.11] 04/02/2015 Severe obstructive sleep apnea AHI 32.5 [G47.3*04/24/2015 Coronary artery disease due to lipid rich plaqu*08/02/2015 Acquired hypothyroidism [E03.9] 08/02/2015 BPV (benign positional vertigo) [H81.10] 08/02/2015 Pulmonary emphysema (HCC) [J43.9] 08/02/2015 Trigger middle finger of left hand [M65.332] 08/04/2015 Trigger index finger of left hand [M65.322] 08/22/2015 Osteoarthritis [M19.90] 11/28/2015 Recurrent major depressive disorder, in partial*04/14/2016 Pain in right hip [M25.551] 04/29/2016 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] 10/14/2016 Essential hypertension [I10] 01/26/2017 Medicare annual wellness visit, subsequent [Z00*06/21/2017 Encounter for screening mammogram for breast ca*06/21/2017 Elevated hemoglobin A1c [R73.09] 12/30/2017 Left carpal tunnel syndrome [G56.02] 01/04/2018 Lumbar radicular pain [M54.16] 05/26/2018 Degenerative disc disease, lumbar [M51.369] 05/26/2018 Over weight [E66.3] 12/30/2018 Status post total replacement of right hip [Z96*12/30/2018 Trochanteric bursitis of left hip [M70.62] 08/16/2019 Epidermal inclusion cyst [L72.0] 09/09/2019 Personal history of colonic polyps [Z86.0100] 09/13/2006 Elevated hemoglobin (HCC) [D58.2] 04/17/2020 Medication management [Z79.899] 05/22/2020 Arthritis of both knees [M17.0] 05/24/2020 Chronic pain of both knees [M25.561, M25.562, G*05/24/[address] [Z78.9] 12/03/2021 History of COVID-19 [Z86.16] 07/08/2022 GERD without esophagitis [K21.9 (more content not included)... Normal [facility] TSH SerPl-aCncon 10-10-2024 TSH Qn 1.160 m[IU]/L Normal 0.270-4.200 [facility] Comment on above: Order Comment: Speci men Type: BLOOD SPECIMENOrdering Facility: [facility] Address: [address] [place] [address] [place] [address] Performed By: #### 3 016-3 ####[facility] ARLIN [id number] [address] STATES OF [facility] CNOVon 09-19-2024 CNOV Office Visit (FAMPWS ) ANNE MARIE GARZA ([id number]) 1940 F Date Time Provider Department 09/19/24 9:40 AM [facility] your visit today, we recorded the following information about you: Pulse Respiration Blood pressure Weight 60/minute 16/minute 142/80 78.5 kg Max Rodriguez MD 09/19/2024 6:35 PM Signed Chief Complaint Patient presents with: Injections: Bilateral knee injections HPI Anne aMrie Garza is a 84 year old female who presents here today for bilateral knee injections . Patient with Hx of hypothyroidism, CAD, COPD, HTN, elevated A1c, hyperlipidemia, emphysema, depression, anxiety, obesity, MATT, smoker, low B12, Arthritis with chronic pain especially the knees as well as those reviewed and addressed below and in ROS. Patient with known Arthritis of both knees and chronic knee pain. Does not want surgery and so being managed per steroid injections every 4 months. Past medical history, appointments, medications, allergies reviewed. Previous Medical History PAST MEDICAL HISTORY Diagnosis Date Acquired hypothyroidism 08/02/2015 Advance directive discussed with patient 01/20/2023 Discussed 01/2023: Up to date Anxiety Anxiety 01/19/2010 -continue home citalopram Bilateral carotid artery stenosis 12/31/2023 US 12/2023: Rt 20-40% Lt 60-80% BPV (benign positional vertigo) 08/02/2015 Chronic pain of both knees 05/24/2020 Seeing Ortho: Dr. Whiteside Coronary artery 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 08/02/2015 Not seeing cardiology Degenerative disc disease, lumbar 05/26/2018 Elevated hemoglobin (HCC) 04/17/2020 to be rechecked 05/17/2020 Elevated hemoglobin A1c 12/30/2017 Epidermal inclusion cyst 09/09/2019 anterior chest wall excised 08/2019 Essential hypertension 01/26/2017 GERD without esophagitis 07/08/2022 Graves disease Heart attack (HCC) [facility] stent in heart History of COVID-19 07/08/202205/2022 History of non-ST elevation myocardial infarction (NSTEMI) 01/19/201001/2010 Intradermal nevus 12/30/2014 right inferrior medial breast Keratosis, inflamed seborrheic 12/30/2014 right upper back Left carpal tunnel syndrome 01/04/[address] 12/03/2021 Daughter Truong is DPOA Low vitamin B12 level 04/06/2014 Lumbar radicular pain 05/26/2018 Added automatically from request for surgery [id number] Lump or mass in breast 01/20/2023 Patient [...] 2D ECHO (EXEP) 12/21/2019 EF=60%, 1+ TI, AR, AI 2D ECHO (EXEP) 02/17/2021 EF= 60%, mod santos dysf, ARTHRP ACETBLR/PROX FEM PROSTC AGRFT/ALGRFT Right 12/30/2018 Hip replacement, total CC CORONARY STENT 12/21/2019 MARCOS to mLCx COLONOSCOPY 05/01/2016 serrated adenoma/Repeat 04/2019 COLONOSCOPY COLONOSCOPY AND POLYPECTOMY 09/13/2006 hyperplastic polyp- repeat 2015 CORONARY STENT EA VESSEL 01/2010 ESOPHAGOGASTRODUODENOS COPY TRANSORAL DIAGNOSTIC 07/02/2021 LEXISCAN STRESS TEST 02/17/2021 [...] PE Patient Allergies ALLERGIES Allergen Reactions Iodine (more content not included)... Normal [facility] CNOVon 08-02-2024 CNOV Office Visit (FAMPWS ) ANNE MARIE GARZA ([id number]) 1940 F Date Time Provider Department 08/02/24 8:40 AM MAX RODRIGUEZ FAMPWS During your visit today, we recorded the following information about you: Pulse Respiration Blood pressure Weight 60/minute 16/minute 126/60 77.1 kg Max Rodriguez MD 08/02/2024 12:27 PM Signed Chief Complaint Patient presents with: F/U 6 months HPI Anne Marie Misty Greg is a 84 year old female who presents here today for 6 month follow up. Patient with Hx of hypothyroidism, CAD, COPD, HTN, elevated A1c, hyperlipidemia, emphysema, depression, anxiety, obesity, MATT, smoker, low B12, Arthritis with chronic pain especially the knees as well as those reviewed and addressed below and in ROS. Patient sees Cardiology last visit 01/2024 Patient is no longer seeing Pulmonary, noted at last visit with us in January. Patient has been doing pretty good. Has not had any issues with the change to her valsartan dose. Only concern is she has been picking at her scalp and has developed a few sores. Not itchy. Thinks it's her anxiety. Past medical history, appointments, medications, allergies reviewed. Previous Medical History PAST MEDICAL HISTORY Diagnosis Date Acquired hypothyroidism 08/02/2015 Advance directive discussed with patient 01/20/2023 Discussed 01/2023: Up to date Anxiety Anxiety 01/19/2010 -continue home citalopram Bilateral carotid artery stenosis 12/31/2023 US 12/2023: Rt 20-40% Lt 60-80% BPV (benign positional vertigo) 08/02/2015 Chronic pain of both knees 05/24/2020 Seeing Ortho: Dr. Whiteside Coronary artery 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 08/02/2015 Not seeing cardiology Degenerative disc disease, lumbar 05/26/2018 Elevated hemoglobin (HCC) 04/17/2020 to be rechecked 05/17/2020 Elevated hemoglobin A1c 12/30/2017 Epidermal inclusion cyst 09/09/2019 anterior chest wall excised 08/2019 Essential hypertension 01/26/2017 GERD without esophagitis 07/08/2022 Graves disease Heart attack (HCC) [facility] stent in heart History of COVID-19 07/08/202205/2022 History of non-ST elevation myocardial infarction (NSTEMI) 01/19/201001/2010 Intradermal nevus 12/30/2014 right inferrior medial breast Keratosis, inflamed seborrheic 12/30/2014 right upper back Left carpal tunnel syndrome 01/04/[address] 12/03/2021 Daughter Truong is DPOA Low vitamin B12 level 04/06/2014 Lumbar radicular pain 05/26/2018 Added automatically from request for surgery [id number] Lump or mass in breast 01/20/2023 Patient [...] Recurrent major depressive disorder, in partial remission ([facility]) 04/14/2016 Severe obstructive sleep apnea AHI 32.5 [...] 2D ECHO (EXEP) 12/21/2019 EF=60%, 1+ TI, AR, AI 2D ECHO (EXEP) 02/17/2021 EF= 60%, mod santos dysf, ARTHRP ACETBLR/PROX FEM PROSTC AGRFT/ALGRFT Right 12/30/2018 Hip replacement, total CC CORONARY STENT 12/21/2019 MARCOS to mLCx COLONOSCOPY 05/01/2016 serrated adenoma/Repeat 04/2019 COLONOSCOPY COLONOSCOPY AND POLYPECTOMY 09/13/2006 hyperplastic polyp- repeat 2016 CORONARY STENT EA VESSEL 01/2010 ESOPHAGOGASTRODUODENOS COPY TRANSORAL DIAGNOSTIC 07/02/2021 LEXISCAN STRESS TEST 02/17/2021 [...] Coronary Artery Disease Mother blood clots- at (more content not included)... Normal [facility] CNPNon 07-23-2024 CNPN Telephone (FAMPWS) ANNE MARIE GARZA ([id number]) 1940 F Date Time Provider Department 07/23/24 [facility] During your visit today, we recorded the following information about you: Max Rodriguez MD 07/23/2024 12:17 PM Signed Let daughter know Nery's thyroid lab shows she is getting too much levothyroxine. Advise her to change the dosing of the levothyroxine 137 mcg to one a day Wed-Wed, 1/2 on Wed and none on Wednesday. Order placed to repeat in 2 months. Will review [facility]. Katherin Schmidt MA 07/24/2024 9:33 AM Signed Spoke with Daughter Kailyn and gave results and instructions. She voiced understanding. Reminded of appointment time and date. Katherin Schmidt MA Allergies As of Date: 07/23/2024 Noted Allergy Reaction IODINE 01/19/2010 10 - Anaphylaxis HCTZ (THIAZIDES) 03/20/2022 14 - Other: See Comments Comments: Dehydrated, nauseated and week MARY INHIBITORS 07/19/2017 3 - Cough CHANTIX (VARENICLINE) 03/22/2014 14 - Other: See Comments Comments: Bad dreams LIPITOR (ATORVASTATIN CALCIUM) 01/26/2017 14 - Other: See Comments Comments: Muscle pains MUCINEX (GUAIFENESIN) 02/16/2017 1 - Mental Status Change Comments: dizziness and confusion PRAVACHOL (PRAVASTATIN SODIUM) 01/26/2017 14 - Other: See Comments Comments: Muscle aches ZANAFLEX (TIZANIDINE) 10/14/2016 14 - Other: See Comments Comments: Caused pt to feel jittery all over Date Reviewed: 05/16/2024 Reviewed by: Max Rodriguez MD - Fully Assessed Reason for Visit: Results [95] Visit Diagnosis:Acquired hypothyroidism [E03.9] Order(s):levothyroxine (LEVOXYL) 137 mcg tabletTake one tab by mouth once a day Wed-Wed, 11/09 on Sat and none on Wednesday. Take on empty stomach. For Thyroid.Disp: 90 tabletRfl: 1 THYROID STIMULATING HORMONE [SQTSH] Order #: [id number] FUTURE Prescriptions as of 07/24/2024 - levothyroxine (LEVOXYL) 137 mcg tablet Take one tab by mouth once a day Wed-Wed, 11/09 on Sat and none on Wednesday. Take on empty stomach. For Thyroid. - traMADol (ULTRAM) 50 mg tablet Take 1 tablet by mouth every 8 hours as needed for pain for up to 90 days. - valsartan (DIOVAN) 320 mg tablet Take 1 tablet by mouth once daily. - celecoxib (CELEBREX) 200 mg capsule Take 1 capsule by mouth two times a day. - metoprolol succinate ER (TOPROL XL) 100 mg Take 1 tablet by mouth once daily. - citalopram (CELEXA) 40 mg tablet Take 1 tablet by mouth once daily. - omeprazole (PRILOSEC) 40 mg capsule Take 1 capsule by mouth two times a day. - rosuvastatin (CRESTOR) 5 mg tablet Take 1 tablet by mouth once daily. - amLODIPine (NORVASC) 5 mg tablet Take 1 tablet by mouth once daily. - nitroglycerin sublingual (NITROQUICK) 0.4 mg SL tablet Dissolve 1 tablet under the tongue every 5 minutes as needed. - ondansetron orally disintegrating (ZOFRAN ODT) 4 mg disintegrating tablet Take 1 tablet by mouth every 6 hours as needed for nausea/vomiting. - albuterol HFA (PROVENTIL HFA, VENTOLIN HFA) 90 mcg/actuation inhaler Inhale 2 Puffs as instructed every 4 hours as needed. - aspirin, enteric coated (ASPIRIN, ENTERIC COATED) 81 mg EC tablet Take 81 mg by mouth once daily. Problem List As Of Date 07/23/2024 Noted Resolved SUMMARY [V999.95] 01/19/2010 11/04/2011 History of non-ST elevation myocardial infarcti*01/19/2010 Mixed hyperlipidemia [E78.2] 01/19/2010 Anxiety [F41.9] 01/19/2010 Ex-smoker [Z87.891] 01/19/2010 Low vitamin B12 level [R79.89] 04/06/2014 Intradermal nevus [D23.9] 12/30/2014 Keratosis, inflamed seborrheic [L82.0] 12/30/2014 Colon cancer screening [Z12.11] 04/02/2015 Severe obstructive sleep apnea AHI 32.5 [G47.3*04/24/2015 Coronary artery disease due to lipid rich plaqu*08/02/2015 Acquired hypothyroidism [E03.9] 08/02/2015 BPV (benign positional vertigo) [H81.10] 08/02/2015 Pulmonary emphysema (HCC) [J43.9] 08/02/2015 Trigger middle finger of left hand [M65.332] 08/04/2015 Trigger index finger of left hand [M65.322] 08/22/2015 Osteoarthritis [M19.90] 11/28/2015 Recurrent major depressive disorder, in partial*04/14/2016 Pain in right hip [M25.551] 04/29/2016 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] 10/14/2016 Essential hypertension [I10] 01/26/2017 Medicare annual wellness visit, subsequent [Z00*06/21/2017 Encounter for screening mammogram for breast ca*06/21/2017 Elevated hemoglobin A1c [R73.09] 12/30/2017 Left carpal tunnel syndrome [G56.02] 01/04/2018 Lumbar radicular pain [M54.16] 05/26/2018 Degenerative disc disease, lumbar [M51.36] 05/26/2018 Over weight [E66.3] 12/30/2018 Status post total replacement of right hip [Z96*12/30/2018 Trochanteric bursitis of left hip [M70.62] 08/16/2019 Epidermal inclusion cyst [L72.0] 09/09/2019 Personal history of colonic polyps [Z86.010] 09/13/2006 Elevated hemoglobin (HCC) [D58.2] 04/17/2020 Medication management [Z79.899] 05/22/ (more content not included)... Normal [facility] Basic metabolic 2000 panelon 07-20-2024 Anion gap [Moles/Vol] 12 mmol/L Normal 8-15 [facility] Comment on above: Order Comment: Speci men Type: BLOOD SPECIMEN Ordering Facility: [facility] Address: [address] [id number] Performed By: #### 2 4321-2 #### [facility] CLIA [id number] [address] [place] [address] [place] Calcium [Mass/Vol] 9.6 mg/dL Normal 8.5-10.2 [facility] Comment on above: Order Comment: Speci men Type: BLOOD SPECIMEN Ordering Facility: [facility] Address: [address] [place], [place] [address] Performed By: #### 2 4321-2 #### [facility] [place] CLIA [id number] [address] [place] [address] [place] Chloride [Moles/Vol] 100 mmol/L Normal 98-[address] [facility] Comment on above: Order Comment: Speci men Type: BLOOD SPECIMEN Ordering Facility: [facility] Address: [address] [place] [address] Performed By: #### 2 4321-2 #### [facility] [place] CLIA [id number] [address] [place] [address] [place] CO2 [Moles/Vol] 24 mmol/L Normal 22-30 [facility] Comment on above: Order Comment: Speci men Type: BLOOD SPECIMEN Ordering Facility: [facility] Address: [facility] [place] [address] Performed By: #### 2 4321-2 #### [facility] [place] CLIA [id number] [address] [place] [address] [place] Creatinine [Mass/Vol] 1.33 mg/dL High 0.58-0.96 [facility] Comment on above: Order Comment: Hermelinda peterson Type: BLOOD SPECIMEN Ordering Facility: [facility] Address: [address] [place] [address] Performed By: #### 2 4321-2 #### [facility] [id number] [address] [place] [address] [place] Creatinine and Glomerular filtration rate.predicted panel (S/P/Bld) 40 mL/min/1.73m??? Low >=60 [facility] Comment on above: Order Comment: Hermelinda peterson Type: BLOOD SPECIMEN Ordering Facility: [facility] Address: [address] [place] [address] Result Comment: Josi mated Glomerular Filtration Rate (eGFR) is calculated using the 2020 CKD-EPI creatinine equation. This equation utilizes serum creatinine, sex, and age as parameters. The creatinine assay has traceable calibration to isotope dilution-mass spectrometry. Refer to KDIGO guidelines for clinical interpretation. In patients with unstable renal function, e.g. those with acute kidney injury, the eGFR may not accurately reflect actual GFR. Performed By: #### 2 4321-2 #### [facility] [id number] [address] [place] [address] [place] Glucose [Mass/Vol] 110 mg/dL High 74-99 [facility] Comment on above: Order Comment: Hermelinda peterson Type: BLOOD SPECIMEN Ordering Facility: [facility] Address: [address] [id number] Result Comment: The [place] Diabetes Association (ADA) provides guidance for cutoff values for fasting glucose and random glucose. The ADA defines fasting as no caloric intake for at least 8 hours. Fasting plasma glucose results between 100 to 125 mg/dL indicate increased risk for diabetes (prediabetes). Fasting plasma glucose results greater than or equal to 126 mg/dL meet the criteria for diagnosis of diabetes. In the absence of unequivocal hyperglycemia, results should be confirmed by repeat testing. In a patient with classic symptoms of hyperglycemia or hyperglycemic crisis, random plasma glucose results greater than or equal to 200 mg/dL meet the criteria for diagnosis of diabetes. Reference: Standards of Medical Care in Diabetes 2016, [place] Diabetes Association. Diabetes Care. 2016.39(Suppl 1). Performed By: #### 2 4321-2 #### [facility] CLIA [id number] [address] [place] [address] [place] Potassium [Moles/Vol] 5.1 mmol/L Normal 3.7-5.1 [facility] Comment on above: Order Comment: Hermelinda peterson Type: BLOOD SPECIMEN Ordering Facility: [facility] Address: [address] [place] [address] Performed By: #### 2 4321-2 #### [facility] [id number] [address] [place] [address] [place] Sodium [Moles/Vol] 136 mmol/L Normal 136-144 [facility] Comment on above: Order Comment: Hermelinda peterson Type: BLOOD SPECIMEN Ordering Facility: [facility] Address: [address] [place] [address] Performed By: #### 2 4321-2 #### [facility] [id number] [address] [place] [address] [place] Urea nitrogen [Mass/Vol] 38 mg/dL High 7-21 [facility] Comment on above: Order Comment: Hermelinda peterson Type: BLOOD SPECIMEN Ordering Facility: [facility] Address: [address] [place] [address] Performed By: #### 2 4321-2 #### [facility] [id number] [address] [place] [address] [place] HbA1c (Bld)on 07-20-2024 Average glucose Estimated from glycated hemoglobin (Bld) [Mass/Vol] 117 mg/dL Normal [facility] Comment on above: Order Comment: Hermelinda peterson Type: BLOOD SPECIMEN Ordering Facility: [facility] Address: [address] [place] [address] Result Comment: eAG: (Estimated average glucose) is a calculated value from HgbA1c and is insurance service representative of the average blood glucose level in the last 2-3 month period. Performed By: #### 2 4321-2 #### [facility] [id number] [address] [place] [address] [place] HbA1c (Bld) [Mass fraction] 5.7 % High 4.3-5.6 [facility] Comment on above: Order Comment: Hermelinda peterson Type: BLOOD SPECIMEN Ordering Facility: [facility] Address: [address] [place] [address] Result Comment: [place] Diabetes Association guidelines indicate that patients with HgbA1c in the range 5.7-6.4% are at increased risk for development of diabetes, and intervention by lifestyle modification may be beneficial. HgbA1c greater or equal to 6.5% is considered diagnostic of diabetes. Performed By: #### 2 4321-2 #### [facility] [id number] [address] [place] [address] [place] TSH SerPl-aCncon 07-20-2024 TSH Qn 0.123 m[IU]/L Low 0.270-4.200 [facility] Comment on above: Order Comment: Hermelinda peterson Type: BLOOD SPECIMEN Ordering Facility: [facility] Address: [address] [place] [address] Performed By: #### 2 4321-2 #### [facility] [id number] [address] [place] [address] [place] Vit B12 SerPl-mCncon 024 Cobalamin (Vitamin B12) [Mass/Vol] 279 pg/mL Normal 232-1245 [facility] Comment on above: Order Comment: Hermelinda peterson Type: BLOOD SPECIMEN Ordering Facility: [facility] Address: [address] [place] [address] Performed By: #### 2 4321-2 #### [facility] [id number] [address] [place] [address] [place] Absolute lymphocyte countOrd ered By: ED PROVIDER on 12-13-2023 Lymphocytes Auto (Unsp spec) [#/Vol] 2.99 10*3/uL 0.83-4.51 [facility] Activated partial thrombopla stin time (aPTT) in platelet poor plasma by coagulation aOrdered By: ED PROVIDER on 12-13-2023 aPTT Coag (PPP) [Time] 23.5 s 24.1-36.2 [facility] Automated lymphocyte count a s percentage of total leukocytesOrdered By: ED PROVIDER on 12-13-2023 Lymphocytes/100 WBC Auto (Unsp spec) 29.1 % 19-41 [facility] Basophil percentageOrdered B y: Flavio Echavarria on 12-13-2023 Basophil percentage 25-50 SEEN /hpf 0-5 [facility] Basophil percentageOrdered B y: ED PROVIDER on 12-13-2023 Basophils/100 WBC (Bld) 0.9 % 0-1 [facility] Chloride [Moles/Vol] 106 mmol/L 98-107 [facility] Eosinophils/100 WBC (Bld) 3.8 % 0-5 [facility] Glucose [Mass/Vol] 111 mg/dL 74-106 [facility] Comment on above: Fasting Glucose resu lt from 100 to 125 mg/dL suggests IMPAIRED HOMEOSTASIS per A.D.A. criteria. Hemoglobin (Bld) [Mass/Vol] 13.5 g/dL 12.0-15.0 [facility] Monocytes/100 WBC (Bld) 8.8 % 0-10 [facility] Neutrophils (Bld) [#/Vol] 5.9 10*3/uL 2.0-7.7 [facility] Neutrophils/100 WBC (Bld) 57.0 % 47-70 [facility] Potassium [Moles/Vol] 3.8 mmol/L 3.5-5.1 [facility] Comment on above: Slight Hemolysis, Re sult may be falsely increased. Sodium [Moles/Vol] 141 mmol/L 136-145 [facility] WBC (Bld) [#/Vol] 10.3 10*3/uL 4.4-11.0 [facility] Bilirubin Test strip Ql (U)O rdered By: Flavio Echavarria on 12-13-2023 Bilirubin Ql (U) Negative Negative [facility] Culture, urineOrdered By: Joaquin Warren on 12-13-2023 Bacteria identified Cx Nom (U) Escherichia coli [facility] Determination of erythrocyte mean corpuscular volume (MCV)Ordered By: ED PROVIDER on 12-13-2023 MCV (RBC) [Entitic vol] 89.6 fL 81-99 [facility] Erythrocyte distribution wid th ratioOrdered By: ED PROVIDER on 12-13-2023 Erythrocyte distribution width (RBC) [Ratio] 14.2 % 11.6-14.6 [facility] Erythrocyte distribution wid th standard deviationOrdered By: ED PROVIDER on 12-13-2023 Erythrocyte distribution width (RBC) [Entitic vol] 46.3 fL 35.1-43.9 [facility] Hematocrit Auto (Bld) [Volum e fraction]Ordered By: ED PROVIDER on 12-13-2023 Hematocrit (Bld) [Volume fraction] 42.9 % 37-47 [facility] Immature granulocytes/100 WB C Auto (Bld)Ordered By: ED PROVIDER on 12-13-2023 Immature granulocytes/100 WBC (Bld) 0.400 % 0.0-0.9 [facility] Comment on above: IG% - Immature Granu locytes (promyelocytes, myelocytes and metamyelocytes) > 1% indicates that a LEFT SHIFT is Present. Ketones Test strip Ql (U)Ord ered By: Flavio Echavarria on 12-13-2023 Ketones Ql (U) 5 mg/dl Negative [facility] Laboratory - Chemistry and C hemistry - challengeOrdered By: ED PROVIDER on 12-13-2023 CO2 [Moles/Vol] 29.0 mmol/L 21.0-32.0 [facility] Urea nitrogen/Creatinine [Mass ratio] 21.5 mg/mg 10-20 [facility] Laboratory - CoagulationOrde red By: ED PROVIDER on 12-13-2023 PT Coag (PPP) [Time] 12.3 s 11.7-14.9 [facility] - Hematology and Cell countsOrdered By: ED PROVIDER on 12-13-2023 MCH (RBC) [Entitic mass] 28.2 pg 27.0-32.0 [facility] MCHC (RBC) [Mass/Vol] 31.5 g/dL 32-36 [facility] Nucleated RBC/100 WBC (Bld) [Ratio] 0 % 0-5 [facility] Platelets (Bld) [#/Vol] 315 10*3/uL 150-450 [facility] Mucus LM Ql (Urine sed)Order ed By: Flavio Echavarria on 12-13-2023 Mucus Ql (Urine sed) 0 SEEN /hpf [facility] Nitrite Test strip Ql (U)Ord ered By: Flavio Echavarria on 12-13-2023 Nitrite Ql (U) Positive Negative [facility] No Panel InformationOrdered By: Flavio Echavarria on 12-13-2023 Urine RBC 0-5 SEEN /hpf 0-5 [facility] Troponin I High Sensitivity 8 pg/mL 3.0-54.0 [facility] Comment on above: Please Note: New Jennifer t Units and Gender Specific Reference Ranges. For more information see Policy Stat Procedure [place] High Sensitivity Troponin (TNIH) and attachments. No Panel InformationOrdered By: ED PROVIDER on 12-13-2023 Estimated GFR (MDRD) Amer 55 mL/min >60 [facility] Comment on above: GFR Calc Estimated GFR (MDRD) Non-Af Amer 45 mL/min >60 [facility] Comment on above: Non- GFR Calc Platelet mean volume Carter-Ec ker (Bld) [Entitic vol]Ordered By: ED PROVIDER on 12-13-2023 Platelet mean volume (Bld) [Entitic vol] 10.5 fL 6.2-12.0 [facility] Platelet poor plasma interna tional normalized ratio (INR)Ordered By: ED PROVIDER on 12-13-2023 INR Coag (PPP) [Relative time] 0.9 {INR} [facility] Protein Test strip Ql (U)Ord ered By: Flavio Echavarria on 12-13-2023 Protein Ql (U) 30 mg/dl Negative [facility] RBC Auto (Bld) [#/Vol]Ordere d By: ED PROVIDER on 12-13-2023 RBC (Bld) [#/Vol] 4.79 10*6/uL 4.2-5.4 [facility] Serum or plasma calcium ajit urement (mass/volume)Ordered By: ED PROVIDER on 12-13-2023 Calcium [Mass/Vol] 9.2 mg/dL 8.5-10.1 [facility] Serum or plasma creatinine m easurement (mass/volume)Ordered By: ED PROVIDER on 12-13-2023 Creatinine [Mass/Vol] 1.21 mg/dL 0.55-1.02 [facility] Comment on above: The validity of the calculated GFR & GFRAA in patients over 70 years has not been determined. Clinical correlation is essential. Serum or plasma urea nitroge n measurement (mass/volume)Ordered By: ED PROVIDER on 12-13-2023 Urea nitrogen [Mass/Vol] 26 mg/dL 7-18 [facility] Squamous epithelial cells de tection in urine sediment by light microscopyOrdered By: Flavio Echavarria on 12-13-2023 Epithelial cells.squamous LM Ql (Urine sed) 0-5 SEEN /hpf 5-10 [facility] Thin prep Papanicolaou smear with manual screeningOrdered By: ED PROVIDER on 12-13-2023 Thin prep Papanicolaou smear with manual screening 6 5-15 [facility] Urine blood detectionOrdered By: Flavio Echavarria on 12-13-2023 RBC Ql (U) 10 /ul Negative [facility] Urine clarityOrdered By: Micah Echavarria on 12-13-2023 Clarity (U) Sl. Cloudy Clear [facility] Urine color determinationOrd ered By: Flavio Echavarria on 12-13-2023 Color (U) Yellow Yellow [facility] Urine glucose detectionOrder ed By: Flavio Echavarria on 12-13-2023 Glucose Ql (U) Normal mg/dl Normal [facility] Urine leukocyte esterase det ection by dipstickOrdered By: Flavio Echavarria on 12-13-2023 Leukocyte esterase Test strip Ql (U) 500 /ul Negative [facility] Urine pHOrdered By: Flavio griffin on 12-13-2023 pH (U) 6.0 [pH] 5.0 - 8.0 [facility] Urine sediment bacteria coun t by microscopy (number/high power field)Ordered By: Flavio Echavarria on 12-13-2023 Bacteria LM.HPF (Urine sed) [#/Area] 3 /[HPF] None Seen [facility] Urine specific gravity measu rementOrdered By: Flavio Echavarria on 12-13-2023 Specific gravity (U) [Rel density] 1.025 1.002-1.030 [facility] Urine urobilinogen measureme ntOrdered By: Flavio Echavarria on 12-13-2023 Urobilinogen Ql (U) 4 mg/dl Normal [facility] XR Shoulder - right 3 Viewso n 12-09-2023 IMPRESSION: No acute osseous abnormality. Degenerative disease of the right shoulder. 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 Transcribe Date/Time: Dec 09 2023 11:41A Dictated by : YENNY RIVAS MD This examination was interpreted and the report reviewed and electronically signed by: YENNY RIVAS MD on Dec 09 2023 11:44AM [facility] DIVISION OF RADIOLOGY * * *Final Report* * * DATE OF EXAM: Dec 08 2023 12:11PM WOX [id number] - XR SHLDR >/=3V AP/SHERIN AP/OTHR RT / PROCEDURE REASON: Acute pain of right shoulder * * * * Physician Interpretation * * * * EXAMINATION: XR SHLDR >/=3V AP/SHERIN AP/OTHR RT CLINICAL HISTORY: Right shoulder pain Technique: XR SHLDR >/=3V AP/SHERIN AP/OTHR RT -- RIGHT with 3 views on 3 images Comparison: None RESULT: No acute fracture or dislocation. Mild glenohumeral and acromioclavicular joint space narrowing. DIVISION OF RADIOLOGY Provider, [facility] - 12/09/2023 * * *Final Report* * * DATE OF EXAM: Dec 08 2023 12:11PM WOX [id number] - XR SHLDR >/=3V AP/SHERIN AP/OTHR RT / PROCEDURE REASON: Acute pain of right shoulder * * * * Physician Interpretation * * * * EXAMINATION: XR SHLDR >/=3V AP/SHERIN AP/OTHR RT CLINICAL HISTORY: Right shoulder pain Technique: XR SHLDR >/=3V AP/SHERIN AP/OTHR RT -- RIGHT with 3 views on 3 images Comparison: None RESULT: No acute fracture or dislocation. Mild glenohumeral and acromioclavicular joint space narrowing. IMPRESSION IMPRESSION: No acute osseous abnormality. Degenerative disease of the right shoulder. [employer] Salesperson: [employer] Transcribe Date/Time: Dec 09 2023 11:41A Dictated by : YENNY RIVAS MD This examination was interpreted and the report reviewed and electronically signed by: YENNY RIVAS MD on Dec 09 2023 11:44AM EST [facility] XR Shoulder - right 3 ViewsO rdered By: [facility] Provider on 12-09-2023 [facility] XR Shoulder - right 3 Viewso n 12-08-2023 Radiology Study observation (narrative) [facility] Absolute lymphocyte countOrd ered By: Chuyitadarrell Mccarty on 05-12-2023 Lymphocytes Auto (Unsp spec) [#/Vol] 1.74 10*3/uL 0.83-4.51 [facility] Basophil percentageOrdered B y: Chuyita Mccarty on 05-12-2023 Basophils/100 WBC (Bld) 0.9 % 0-1 [facility] Bilirubin [Mass/Vol] 0.40 mg/dL 0.20-1.00 [facility] Comment on above: For patients on eltr ombopag therapy, use of Dimension [place] TBIL is not recommended. Chloride [Moles/Vol] 103 mmol/L 98-107 [facility] Eosinophils/100 WBC (Bld) 3.4 % 0-5 [facility] Glucose [Mass/Vol] 101 mg/dL 74-106 [facility] Comment on above: Fasting Glucose resu lt from 100 to 125 mg/dL suggests IMPAIRED HOMEOSTASIS per A.D.A. criteria. Neutrophils (Bld) [#/Vol] 5.1 10*3/uL 2.0-7.7 [facility] Neutrophils/100 WBC (Bld) 63.9 % 47-70 [facility] Potassium [Moles/Vol] 4.5 mmol/L 3.5-5.1 [facility] Protein [Mass/Vol] 7.2 g/dL 6.4-8.2 [facility] Sodium [Moles/Vol] 135 mmol/L 136-145 [facility] WBC (Bld) [#/Vol] 8.0 10*3/uL 4.4-11.0 [facility] Blood erythrocytes count (nu mber/volume)Ordered By: Chuyita Mccarty on 05-12-2023 RBC (Bld) [#/Vol] 4.95 10*6/uL 4.2-5.4 [facility] Blood hemoglobin measurement (mass/volume)Ordered By: Chuyita Mccarty on 05-12-2023 Hemoglobin (Bld) [Mass/Vol] 14.2 g/dL 12.0-15.0 [facility] Blood lymphocytes/100 leukoc ytesOrdered By: Chuyita Mccarty on 05-12-2023 Lymphocytes/100 WBC (Bld) 21.8 % 19-41 [facility] Blood monocytes/100 leukocyt esOrdered By: Chuyita Mccarty on 05-12-2023 Monocytes/100 WBC (Bld) 9.4 % 0-10 [facility] Blood platelet mean volumeOr dered By: Chuyita Mccarty on 05-12-2023 Platelet mean volume (Bld) [Entitic vol] 11.2 fL 6.2-12.0 [facility] Determination of erythrocyte mean corpuscular volume (MCV)Ordered By: Chuyita Mccarty on 05-12-2023 MCV (RBC) [Entitic vol] 90.5 fL 81-99 [facility] Direct bilirubinOrdered By: Chuyita Mccarty on 05-12-2023 Bilirubin.direct [Mass/Vol] 0.10 mg/dL 0.00-0.30 [facility] Hematocrit Auto (Bld) [Volum e fraction]Ordered By: Chuyita Mccarty on 05-12-2023 Hematocrit (Bld) [Volume fraction] 44.8 % 37-47 [facility] Laboratory - Chemistry and C hemistry - challengeOrdered By: Chuyita Mccarty on 05-12-2023 ALP [Catalytic activity/Vol] 49 U/L 45-117 [facility] ALT [Catalytic activity/Vol] 13 U/L 13-56 [facility] CO2 [Moles/Vol] 29.0 mmol/L 21.0-32.0 [facility] Globulin (S) [Mass/Vol] 3.9 g/dL 2.2-4.2 [facility] Lipase [Catalytic activity/Vol] 43 U/L 13-75 [facility] Comment on above: Please note:LIPASE r evised reference range effective 23. New Lipase methodology. Expected to produce lower values than the previous assay method. NEW Reference Range: 13 - 75 U/L Urea nitrogen/Creatinine [Mass ratio] 20.5 mg/mg 10-20 [facility] Laboratory - Hematology and Cell countsOrdered By: Chuyita Mccarty on 05-12-2023 Erythrocyte distribution width (RBC) [Entitic vol] 48.7 fL 35.1-43.9 [facility] Erythrocyte distribution width (RBC) [Ratio] 14.6 % 11.6-14.6 [facility] Immature granulocytes/100 WBC (Bld) 0.600 % 0.0-0.9 [facility] Comment on above: IG% - Immature Granu locytes (promyelocytes, myelocytes and metamyelocytes) > 1% indicates that a LEFT SHIFT is Present. MCH (RBC) [Entitic mass] 28.7 pg 27.0-32.0 [facility] Nucleated RBC/100 WBC (Bld) [Ratio] 0 % 0-5 [facility] MCHC Auto (RBC) [Mass/Vol]Or dered By: Chuyita Mccarty on 05-12-2023 MCHC (RBC) [Mass/Vol] 31.7 g/dL 32-36 [facility] No Panel InformationOrdered By: Chuyita Mccarty on 05-12-2023 Troponin I High Sensitivity 7 pg/mL 3.0-54.0 [facility] Comment on above: Please Note: New Jennifer t Units and Gender Specific Reference Ranges. For more information see Policy Stat Procedure [place] High Sensitivity Troponin (TNIH) and attachments. Estimated Creatinine Clearance Calc 31.23 ml/min [facility] Estimated GFR (MDRD) Amer 54 mL/min >60 [facility] Comment on above: GFR Calc Estimated GFR (MDRD) Non-Af Amer 45 mL/min >60 [facility] Comment on above: Non- GFR Calc Platelets bldOrdered By: Carli Mccarty on 05-12-2023 Platelets (Bld) [#/Vol] 252 10*3/uL 150-450 [facility] Serum or plasma albumin ajit urement (mass/volume)Ordered By: Chuyita Mccarty on 05-12-2023 Albumin [Mass/Vol] 3.3 g/dL 3.2-5.0 [facility] Serum or plasma calcium ajit urement (mass/volume)Ordered By: Chuyita Mccarty on 05-12-2023 Calcium [Mass/Vol] 9.0 mg/dL 8.5-10.1 [facility] Serum or plasma creatinine m easurement (mass/volume)Ordered By: Chuyita Mccarty on 05-12-2023 Creatinine [Mass/Vol] 1.22 mg/dL 0.55-1.02 [facility] Comment on above: The validity of the calculated GFR & GFRAA in patients over 70 years has not been determined. Clinical correlation is essential. Serum or plasma urea nitroge n measurement (mass/volume)Ordered By: Chuyita Mccarty on 05-12-2023 Urea nitrogen [Mass/Vol] 25 mg/dL 7-18 [facility] Thin prep Papanicolaou smear with manual screeningOrdered By: Chuyita Mccarty on 05-12-2023 Thin prep Papanicolaou smear with manual screening 14 U/L 15-37 [facility] Thin prep Papanicolaou smear with manual screening 3 5-15 [facility] Absolute lymphocyte countOrd ered By: Flavio Echavarria on 05-06-2023 Lymphocytes Auto (Unsp spec) [#/Vol] 2.52 10*3/uL 0.83-4.51 [facility] Basophil percentageOrdered B y: Flavio Echavarria on 05-06-2023 Basophils/100 WBC (Bld) 0.8 % 0-1 [facility] Chloride [Moles/Vol] 99 mmol[facility]L 98-[facility] Eosin[facility] WBC (Bld) 2.7 % 0-5 [facility] Glucose [Mass/Vol] 103 mg/dL 74-106 [facility] Comment on above: Fasting Glucose resu lt from 100 to 125 mg/dL suggests IMPAIRED HOMEOSTASIS per A.D.A. criteria. Neutrophils (Bld) [#/Vol] 5.1 10*3/uL 2.0-7.7 [facility] Neutrophils/100 WBC (Bld) 58.3 % 47-70 [facility] Potassium [Moles/Vol] 4.4 mmol/L 3.5-5.1 [facility] Sodium [Moles/Vol] 136 mmol/L 136-145 [facility] WBC (Bld) [#/Vol] 8.8 10*3/uL 4.4-11.0 [facility] Blood erythrocytes count (nu mber/volume)Ordered By: Flavio Echavarria on 05-06-2023 RBC (Bld) [#/Vol] 4.99 10*6/uL 4.2-5.4 [facility] Blood hemoglobin measurement (mass/volume)Ordered By: Flavio Echavarria on 05-06-2023 Hemoglobin (Bld) [Mass/Vol] 14.5 g/dL 12.0-15.0 [facility] Blood lymphocytes/100 leukoc ytesOrdered By: Flavio Echavarria on 05-06-2023 Lymphocytes/100 WBC (Bld) 28.7 % 19-41 [facility] Blood monocytes/100 leukocyt esOrdered By: Flavio Echavarria on 05-06-2023 Monocytes/100 WBC (Bld) 9.3 % 0-10 [facility] Blood platelet mean volumeOr dered By: Flavio Echavarria on 05-06-2023 Platelet mean volume (Bld) [Entitic vol] 11.0 fL 6.2-12.0 [facility] Determination of erythrocyte mean corpuscular volume (MCV)Ordered By: Flavio Echavarria on 05-06-2023 MCV (RBC) [Entitic vol] 87.6 fL 81-99 [facility] Hematocrit Auto (Bld) [Volum e fraction]Ordered By: Flavio Echavarria on 05-06-2023 Hematocrit (Bld) [Volume fraction] 43.7 % 37-47 [facility] Laboratory - Chemistry and C hemistry - challengeOrdered By: Flavio Echavarria on 05-06-2023 CO2 [Moles/Vol] 32.0 mmol/L 21.0-32.0 [facility] Urea nitrogen/Creatinine [Mass ratio] 19.4 mg/mg 10-20 [facility] Laboratory - Hematology and Cell countsOrdered By: Flavio Echavarria on 05-06-2023 Erythrocyte distribution width (RBC) [Entitic vol] 46.8 fL 35.1-43.9 [facility] Erythrocyte distribution width (RBC) [Ratio] 14.6 % 11.6-14.6 [facility] Immature granulocytes/100 WBC (Bld) 0.200 % 0.0-0.9 [facility] Comment on above: IG% - Immature Granu locytes (promyelocytes, myelocytes and metamyelocytes) > 1% indicates that a LEFT SHIFT is Present. MCH (RBC) [Entitic mass] 29.1 pg 27.0-32.0 [facility] Nucleated RBC/100 WBC (Bld) [Ratio] 0 % 0-5 [facility] MCHC Auto (RBC) [Mass/Vol]Or dered By: Flavio Echavarria on 05-06-2023 MCHC (RBC) [Mass/Vol] 33.2 g/dL 32-36 [facility] No Panel InformationOrdered By: Flavio Echavarria on 05-06-2023 Troponin I High Sensitivity 8 pg/mL 3.0-54.0 [facility] Comment on above: Please Note: New Jennifer t Units and Gender Specific Reference Ranges. For more information see Policy Stat Procedure [place] High Sensitivity Troponin (TNIH) and attachments. D-Dimer Quantitative (PE/DVT) 0.55 FEU/ug/m 0.27-0.49 [facility] Comment on above: D-Dimer ELEVATED (>0 .49): Additional studies and clinicalassessments are indicated to conclude diagnosis of:Deep Vein Thrombosis (DVT) or Pulmonary Embolism (PE)CRITICAL VALUE VERIFIED. [facility]23 1652 Oriana Osorio.RESULTS READ BACK BY SAME . Estimated Creatinine Clearance Calc 27.41 ml/min [facility] Estimated GFR (MDRD) Amer 47 mL/min >60 [facility] Comment on above: GFR Calc Estimated GFR (MDRD) Non-Af Amer 39 mL/min >60 [facility] Comment on above: Non- GFR Calc Platelets bldOrdered By: Micah Echavarria on 05-06-2023 Platelets (Bld) [#/Vol] 266 10*3/uL 150-450 [facility] Serum or plasma calcium ajit urement (mass/volume)Ordered By: Flavio Echavarria on 05-06-2023 Calcium [Mass/Vol] 9.4 mg/dL 8.5-10.1 [facility] Serum or plasma creatinine m easurement (mass/volume)Ordered By: Flavio Echavarria on 05-06-2023 Creatinine [Mass/Vol] 1.39 mg/dL 0.55-1.02 [facility] Comment on above: The validity of the calculated GFR & GFRAA in patients over 70 years has not been determined. Clinical correlation is essential. Serum or plasma urea nitroge n measurement (mass/volume)Ordered By: Flavio Echavarria on 05-06-2023 Urea nitrogen [Mass/Vol] 27 mg/dL 05-25 [facility] Thin prep Papanicolaou smear with manual screeningOrdered By: Flavio Echavarria on 05-06-2023 Thin prep Papanicolaou smear with manual screening 03-22 [facility] TOX SCREEN ROUT URon 023 Amphetamines Confirm (U) [Mass/Vol] Negative Negative [facility] Barbiturates Urine Negative Negative [facility] Benzodiazepines Urine Negative Negative [facility] Cannabinoids, Urine Negative Negative [facility] Cocaine Ql (U) Negative Negative [facility] Ethanol (U) [Mass/Vol] <11 mg/dL Cl [facility] Opiates Screen Ql (U) Negative Negative [facility] oxyCODONE cutoff Screen (U) [Mass/Vol] Negative Negative [facility] Phencyclidine Ql (U) Negative Negative [facility] URINE CULTUREon 10-02-2022 Bacteria identified Cx Nom (U) >=100,000 CFU/ml Escherichia coli Abnormal [facility] UA DIP, URINE (POC)on 2021 BILIRUBIN UA (POCT) Negative Negative [facility] CLARITY UA (POCT) Clear [facility] COLOR UA (POCT) Yellow [facility] GLUCOSE UA (POCT) Negative Negative mg/dL [facility] HEMOGLOBIN/BLOOD UA (POCT) Negative Negative [facility] KETONE UA (POCT) Negative Negative mg/dL [facility] LEUKOCYTES UA (POCT) Trace Abnormal Negative [facility] NITRITE UA (POCT) Negative Negative [facility] PH UA (POCT) 6.5 4.5 - 8.0 [facility] Protein Ql (U) Trace Abnormal Negative mg/dL [facility] SPECIFIC GRAVITY UA (POCT) 1.020 1.005 - 1.030 [facility] UROBILINOGEN UA (POCT) 1.0 E.U./dL Ammy l E.U./dL [facility] URINE CULTUREon 09-30-2022 Bacteria identified Cx Nom (U) Invalid Interpretation Code [facility] UA DIP, URINE (POC)on 2021 BILIRUBIN UA (POCT) Negative Negative [facility] CLARITY UA (POCT) Clear [facility] COLOR UA (POCT) Yellow [facility] GLUCOSE UA (POCT) Negative Negative mg/dL [facility] HEMOGLOBIN/BLOOD UA (POCT) Negative Negative [facility] KETONE UA (POCT) Negative Negative mg/dL [facility] LEUKOCYTES UA (POCT) Small Abnormal Negative [facility] NITRITE UA (POCT) Positive Abnormal Negative [facility] PH UA (POCT) 6.0 4.5 - 8.0 [facility] Protein Ql (U) Negative Negative mg/dL [facility] SPECIFIC GRAVITY UA (POCT) 1.020 1.005 - 1.030 [facility] UROBILINOGEN UA (POCT) 1.0 E.U./dL Ammy l E.U./dL [facility] TOX SCREEN ROUT URon 022 Amphetamines Confirm (U) [Mass/Vol] Negative Negative [facility] Barbiturates Urine Negative Negative [facility] Benzodiazepines Urine Negative Negative [facility] Cannabinoids, Urine Negative Negative [facility] Cocaine Ql (U) Negative Negative [facility] Ethanol (U) [Mass/Vol] <11 <11 mg/dL Cl [facility] Opiates Screen Ql (U) Negative Negative [facility] oxyCODONE cutoff Screen (U) [Mass/Vol] Negative Negative [facility] Phencyclidine Ql (U) Negative Negative [facility] No Panel Information [facility] Vital Signs Date Time Vital Sign Value Performing Clinician Facility 05-21-2025 09:00-0400 Body mass index (BMI) [Ratio] 30.71 kg/m2 Max Rodriguez MD Work Phone: [facility] 05-21-2025 09:00-0400 Body weight 80.65 kg Max Rodriguez MD Work Phone: [facility] 05-21-2025 09:00-0400 Diastolic blood pressure 60 mm[Hg] Max Rodriguez MD Work Phone: [facility] 05-21-2025 09:00-0400 Heart rate 68 /min Max Rodriguez MD Work Phone: [facility] 05-21-2025 09:00-0400 Respiratory rate 16 /min Max Rodriguez MD Work Phone: [facility] 05-21-2025 09:00-0400 Systolic blood pressure 138 mm[Hg] Max Rodriguez MD Work Phone: [facility] 05-18-2025 12:27-0400 Body mass index (BMI) [Ratio] 30.46 kg/m2 Nicole Zhang APRN.[employer] Work Phone: [facility] 05-18-2025 12:27-0400 Body weight 80 kg Nicole Zhang APRN.[employer] Work Phone: [facility] 05-18-2025 12:27-0400 Diastolic blood pressure 68 mm[Hg] Nicole Zhang [employer] Work Phone: [facility] 05-18-2025 12:27-0400 Heart rate 67 /min Nicole Zhang APRN.[employer] Work Phone: [facility] 05-18-2025 12:27-0400 Systolic blood pressure 122 mm[Hg] Nicole Zhang [employer] Work Phone: [facility] 03-23-2025 10:25-0400 Diastolic blood pressure 52 mm[Hg] Daniel Garcia MD [facility] 03-23-2025 10:25-0400 Systolic blood pressure 151 mm[Hg] Daniel Garcia MD [facility] 03-22-2025 07:55-0400 Body height 162.[address] Max Rodriguez MD Work Phone: [facility] 03-22-2025 07:55-0400 Body mass index (BMI) [Ratio] 30.7 kg/m2 Dr. Max Rodriguez MD Work Phone: [facility] 03-22-2025 07:55-0400 Body weight 81.[address] Max Rodriguez MD Work Phone: [facility] 03-22-2025 07:55-0400 Diastolic blood pressure 65 mm[Hg] Dr. Max Rodriguez MD Work Phone: [facility] 03-22-2025 07:55-0400 Heart rate 61 /min Dr. Max Rodriguez MD Work Phone: [facility] 03-22-2025 07:55-0400 Respiratory rate 16 /min Dr. Max Rodriguez MD Work Phone: [facility] 03-22-2025 07:55-0400 Systolic blood pressure 131 mm[Hg] Dr. Max Rodriguez MD Work Phone: [facility] 01-26-2025 10:04-0400 Body mass index (BMI) [Ratio] 30.05 kg/m2 Max Rodriguez MD Work Phone: [facility] 01-26-2025 10:04-0400 Body weight 78.93 kg Max Rodriguez MD Work Phone: [facility] 01-26-2025 10:04-0400 Diastolic blood pressure 60 mm[Hg] Max Rodriguez MD Work Phone: [facility] 01-26-2025 10:04-0400 Heart rate 54 /min Max Rodriguez MD Work Phone: [facility] 01-26-2025 10:04-0400 Respiratory rate 18 /min Max Rodriguez MD Work Phone: [facility] 01-26-2025 10:04-0400 SaO2% (BldA) [Mass fraction] 96 % Max Rodriguez MD Work Phone: [facility] 01-26-2025 10:04-0400 Systolic blood pressure 130 mm[Hg] Max Rodriguez MD Work Phone: [facility] 01-22-2025 12:31-0400 Body height 162.1 cm Angela Haines MD Work Phone: [facility] 01-22-2025 12:31-0400 Body mass index (BMI) [Ratio] 30.4 kg/m2 Angela Haines MD Work Phone: [facility] 01-22-2025 12:31-0400 Body weight 79.83 kg Angela Haines MD Work Phone: [facility] 01-22-2025 12:31-0400 Diastolic blood pressure 62 mm[Hg] Angela Haines MD Work Phone: [facility] 01-22-2025 12:31-0400 Heart rate 60 /min Angela Haines MD Work Phone: [facility] 01-22-2025 12:31-0400 Respiratory rate 15 /min Angela Haines MD Work Phone: [facility] 01-22-2025 12:31-0400 SaO2% (BldA) [Mass fraction] 97 % Angela Haines MD Work Phone: [facility] 01-22-2025 12:31-0400 Systolic blood pressure 136 mm[Hg] Angela Haines MD Work Phone: [facility] 01-22-2025 11:06-0400 Body height 162.1 cm Pulm Wstr Work Phone: [facility] 01-22-2025 11:06-0400 Body mass index (BMI) [Ratio] 30.4 kg/m2 Pulm Wstr Work Phone: [facility] 01-22-2025 11:06-0400 Body weight 79.83 kg Pulm Wstr Work Phone: [facility] 01-22-2025 11:06-0400 Heart rate 60 /min Pulm Wstr Work Phone: [facility] 01-22-2025 11:06-0400 Respiratory rate 15 /min Pulm Wstr Work Phone: [facility] 01-22-2025 11:06-0400 SaO2% (BldA) [Mass fraction] 97 % Pulm Wstr Work Phone: [facility] 01-19-2025 09:48-0400 Diastolic blood pressure 74 mm[Hg] Max Rodriguez MD Work Phone: [facility] 01-19-2025 09:48-0400 Systolic blood pressure 148 mm[Hg] Max Rodriguez MD Work Phone: [facility] 01-19-2025 09:05-0400 Body mass index (BMI) [Ratio] 31 kg/m2 Max Rodriguez MD Work Phone: [facility] 01-19-2025 09:05-0400 Body weight 79.38 kg Max Rodriguez MD Work Phone: [facility] 01-19-2025 09:05-0400 Heart rate 62 /min Max Rodriguez MD Work Phone: [facility] 01-19-2025 09:05-0400 Respiratory rate 16 /min Max Rodriguez MD Work Phone: [facility] 01-10-2025 11:28-0500 Body mass index (BMI) [Ratio] 31 kg/m2 Max Rodriguez MD Work Phone: [facility] 01-10-2025 11:28-0500 Body temperature 98.01 [degF] Max Rodriguez MD Work Phone: [facility] 01-10-2025 11:28-0500 Body weight 79.38 kg Max Rodriguez MD Work Phone: [facility] 01-10-2025 11:28-0500 Diastolic blood pressure 70 mm[Hg] Max Rodriguez MD Work Phone: [facility] 01-10-2025 11:28-0500 Heart rate 72 /min Max Rodriguez MD Work Phone: [facility] 01-10-2025 11:28-0500 Respiratory rate 18 /min Max Rodriguez MD Work Phone: [facility] 01-10-2025 11:28-0500 SaO2% (BldA) [Mass fraction] 92 % Max Rodriguez MD Work Phone: [facility] 01-10-2025 11:28-0500 Systolic blood pressure 136 mm[Hg] Max Rodriguez MD Work Phone: [facility] 09-19-2024 09:34-0500 Body mass index (BMI) [Ratio] 30.65 kg/m2 Max Rodriguez MD Work Phone: [facility] 09-19-2024 09:34-0500 Body weight 78.47 kg Max Rodriguez MD Work Phone: [facility] 09-19-2024 09:34-0500 Diastolic blood pressure 80 mm[Hg] Max Rodriguez MD Work Phone: [facility] 09-19-2024 09:34-0500 Heart rate 60 /min Max Rodriguez MD Work Phone: [facility] 09-19-2024 09:34-0500 Respiratory rate 16 /min Max Rodriguze MD Work Phone: [facility] 09-19-2024 09:34-0500 Systolic blood pressure 142 mm[Hg] Max Rodriguez MD Work Phone: [facility] 09-15-2024 12:56-0500 Body height 162.6 cm Stephan Lewis [employer] Work Phone: [facility] 09-15-2024 12:56-0500 Body mass index (BMI) [Ratio] 29.18 kg/m2 Stephan Lewis [employer] Work Phone: [facility] 09-15-2024 12:56-0500 Body temperature 98.6 [degF] Stephan Lewis [employer] Work Phone: [facility] 09-15-2024 12:56-0500 Body weight 77.11 kg Stephan Lewis [employer] Work Phone: [facility] 09-15-2024 12:56-0500 Diastolic blood pressure 69 mm[Hg] Stephan Browneta [employer] Work Phone: [facility] 09-15-2024 12:56-0500 Heart rate 61 /min Stephan Joshua [employer] Work Phone: [facility] 09-15-2024 12:56-0500 Respiratory rate 14 /min Stephan Joshua [employer] Work Phone: [facility] 09-15-2024 12:56-0500 SaO2% (BldA) [Mass fraction] 96 % Stephan Joshua [employer] Work Phone: [facility] 09-15-2024 12:56-0500 Systolic blood pressure 127 mm[Hg] Stephan Browneta [employer] Work Phone: [facility] 08-02-2024 08:35-0400 Body mass index (BMI) [Ratio] 30.11 kg/m2 Max Rodriguez MD Work Phone: [facility] 08-02-2024 08:35-0400 Body weight 77.11 kg Max Rodriguez MD Work Phone: [facility] 08-02-2024 08:35-0400 Diastolic blood pressure 60 mm[Hg] Max Rodriguez MD Work Phone: [facility] 08-02-2024 08:35-0400 Heart rate 60 /min Max Rodriguez MD Work Phone: [facility] 08-02-2024 08:35-0400 Respiratory rate 16 /min Max Rodriguez MD Work Phone: [facility] 08-02-2024 08:35-0400 Systolic blood pressure 126 mm[Hg] Max Rodriguez MD Work Phone: [facility] 05-16-2024 09:34-0400 Body mass index (BMI) [Ratio] 29.94 kg/m2 Max Rodriguez MD Work Phone: [facility] 05-16-2024 09:34-0400 Body weight 76.66 kg Max Rodriguez MD Work Phone: [facility] 05-16-2024 09:34-0400 Diastolic blood pressure 86 mm[Hg] Max Rodriguez MD Work Phone: [facility] 05-16-2024 09:34-0400 Heart rate 60 /min Max Rodriguez MD Work Phone: [facility] 05-16-2024 09:34-0400 Respiratory rate 16 /min Max Rodriguez MD Work Phone: [facility] 05-16-2024 09:34-0400 Systolic blood pressure 146 mm[Hg] Max Rodriguez MD Work Phone: [facility] 04-28-2024 09:49-0400 Body mass index (BMI) [Ratio] 29.58 kg/m2 Max Rodriguez MD Work Phone: [facility] 04-28-2024 09:49-0400 Body weight 75.75 kg Max Rodriguez MD Work Phone: [facility] 04-28-2024 09:49-0400 Diastolic blood pressure 62 mm[Hg] Max Rodriguez MD Work Phone: [facility] 04-28-2024 09:49-0400 Heart rate 60 /min Max Rodriguez MD Work Phone: [facility] 04-28-2024 09:49-0400 Respiratory rate 16 /min Max Rodriguez MD Work Phone: [facility] 04-28-2024 09:49-0400 Systolic blood pressure 128 mm[Hg] Max Rodriguez MD Work Phone: [facility] 03-17-2024 10:08-0400 Body mass index (BMI) [Ratio] 29.76 kg/m2 Nicole Zhang APRN.TOY STUFFER Work Phone: [facility] 03-17-2024 10:08-0400 Body weight 76.2 kg Nicole Zhang APRN.TOY STUFFER Work Phone: [facility] 03-17-2024 10:08-0400 Diastolic blood pressure 51 mm[Hg] Nicole Zhang [employer].TOY STUFFER Work Phone: [facility] 03-17-2024 10:08-0400 Heart rate 48 /min Nicole Zhang [employer].TOY STUFFER Work Phone: [facility] 03-17-2024 10:08-0400 Respiratory rate 14 /min Nicole Zhang [employer].TOY STUFFER Work Phone: [facility] 03-17-2024 10:08-0400 Systolic blood pressure 170 mm[Hg] Nicole Zhang INS[employer].TOY STUFFER Work Phone: [facility] 01-26-2024 10:47-0400 Body weight 77.56 kg Max Rodriguez MD Work Phone: [facility] 01-26-2024 10:47-0400 Diastolic blood pressure 68 mm[Hg] Max Rodriguez MD Work Phone: [facility] 01-26-2024 10:47-0400 Heart rate 70 /min Max Rodriguez MD Work Phone: [facility] 01-26-2024 10:47-0400 Respiratory rate 16 /min Max Rodriguez MD Work Phone: [facility] 01-26-2024 10:47-0400 Systolic blood pressure 138 mm[Hg] Max Rodriguez MD Work Phone: [facility] 01-21-2024 08:40-0400 Body height 162.[address] Max Rodriguez Work Phone: [facility] 01-21-2024 08:40-0400 Body mass index (BMI) [Ratio] 29 kg/m2 Dr. Max Rodriguez Work Phone: [facility] 01-21-2024 08:40-0400 Body weight 76.[address] Max Rodriguez Work Phone: [facility] 01-21-2024 08:40-0400 Diastolic blood pressure 84 mm[Hg] Dr. Max Rodriguez Work Phone: [facility] 01-21-2024 08:40-0400 Heart rate 53 /min Dr. Max Rodriguez Work Phone: [facility] 01-21-2024 08:40-0400 Respiratory rate 18 /min Dr. Max Rodriguez Work Phone: [facility] 01-21-2024 08:40-0400 SaO2% (BldA) [Mass fraction] 96 % Dr. Max Rodriguez Work Phone: [facility] 01-21-2024 08:40-0400 Systolic blood pressure 142 mm[Hg] Dr. Max Rodriguez Work Phone: [facility] 12-21-2023 09:41-0500 Body temperature 97.2 [degF] Max Rodriguez MD Work Phone: [facility] 12-21-2023 09:41-0500 Body weight 78.02 kg Max Rodriguez MD Work Phone: [facility] 12-21-2023 09:41-0500 Diastolic blood pressure 70 mm[Hg] Max Rodriguez MD Work Phone: [facility] 12-21-2023 09:41-0500 Heart rate 52 /min Max Rodriguez MD Work Phone: [facility] 12-21-2023 09:41-0500 Respiratory rate 16 /min Max Rodriguez MD Work Phone: [facility] 12-21-2023 09:41-0500 SaO2% (BldA) [Mass fraction] 93 % Max Rodriguez MD Work Phone: [facility] 12-21-2023 09:41-0500 Systolic blood pressure 136 mm[Hg] Max Rodriguez MD Work Phone: [facility] 12-16-2023 07:55-0500 Body mass index (BMI) [Ratio] 29.5 kg/m2 Dr. Max Rodriguez Work Phone: [facility] 12-16-2023 07:55-0500 Body temperature 97.8 [degF] Dr. Max Rodriguez Work Phone: [facility] 12-16-2023 07:55-0500 Body weight 78.[address] Max Rodriguez Work Phone: [facility] 12-16-2023 07:55-0500 Diastolic blood pressure 59 mm[Hg] Dr. Max Rodriguez Work Phone: [facility] 12-16-2023 07:55-0500 Heart rate 60 /min Dr. Max Rodriguez Work Phone: [facility] 12-16-2023 07:55-0500 Respiratory rate 20 /min Dr. Max Rodriguez Work Phone: [facility] 12-16-2023 07:55-0500 SaO2% (BldA) [Mass fraction] 98 % Dr. Max Rodriguez Work Phone: [facility] 12-16-2023 07:55-0500 Systolic blood pressure 118 mm[Hg] Dr. Max Rodriguez Work Phone: [facility] 12-13-2023 22:05-0500 Diastolic blood pressure 56 mm[Hg] [facility] 12-13-2023 22:05-0500 Heart rate 52 /min [facility] 12-13-2023 22:05-0500 Respiratory rate 18 /min [facility] 12-13-2023 22:05-0500 SaO2% (BldA) [Mass fraction] 94 % [facility] 12-13-2023 22:05-0500 Systolic blood pressure 137 mm[Hg] [facility] 12-13-2023 18:06-0500 Body height 162.56 cm [facility] 12-13-2023 18:06-0500 Body temperature 96.7 [degF] [facility] 10-22-2023 10:50-0500 Body weight 76.66 kg Nicole Zhang APRN.CNP Work Phone: [facility] 10-22-2023 10:50-0500 Diastolic blood pressure 72 mm[Hg] Nicole Knoble INSPECTOR [employer].TOY STUFFER Work Phone: [facility] 10-22-2023 10:50-0500 Heart rate 60 /min Nicole Knoble [employer].TOY STUFFER Work Phone: [facility] 10-22-2023 10:50-0500 Respiratory rate 14 /min Nicole Knoble [employer]PECT[employer].TOY STUFFER Work Phone: [facility] 10-22-2023 10:50-0500 Systolic blood pressure 154 mm[Hg] Nicole Knoble INSPECT[employer].TOY STUFFER Work Phone: [facility] 08-30-2023 08:48-0400 Diastolic blood pressure 80 mm[Hg] Nicole Knoble INSPECT[employer].TOY STUFFER Work Phone: [facility] 08-30-2023 08:48-0400 Systolic blood pressure 168 mm[Hg] Nicole Knoble INSPECT[employer].TOY STUFFER Work Phone: [facility] 08-30-2023 08:38-0400 Body height 160 cm Nicole Kamilahoble INS[employer].TOY STUFFER Work Phone: [facility] 08-30-2023 08:38-0400 Body weight 74.84 kg Nicole Sandhya [employer].TOY STUFFER Work Phone: [facility] 08-30-2023 08:38-0400 Heart rate 62 /min Nicole Knoble [employer]PECT[employer].TOY STUFFER Work Phone: [facility] 08-30-2023 08:38-0400 Respiratory rate 16 /min Nicole Knoble INSPECT[employer].TOY STUFFER Work Phone: [facility] 07-23-2023 11:40-0400 Diastolic blood pressure 60 mm[Hg] Max Rodriguez MD Work Phone: [facility] 07-23-2023 11:40-0400 Systolic blood pressure 182 mm[Hg] Max Rodriguez MD Work Phone: [facility] 07-23-2023 10:59-0400 Heart rate 56 /min Max Rodriguez MD Work Phone: [facility] 07-23-2023 10:45-0400 Body weight 77.11 kg Max Rodriguez MD Work Phone: [facility] 07-23-2023 10:45-0400 Respiratory rate 16 /min Max Rodriguez MD Work Phone: [facility] 07-23-2023 10:45-0400 SaO2% (BldA) [Mass fraction] 94 % Max Rodriguez MD Work Phone: [facility] 05-12-2023 14:20-0400 Diastolic blood pressure 94 mm[Hg] [facility] 05-12-2023 14:20-0400 Heart rate 57 /min [facility] 05-12-2023 14:20-0400 Systolic blood pressure 168 mm[Hg] [facility] 05-12-2023 11:21-0400 Body height 162.56 cm [facility] 05-12-2023 11:21-0400 Body mass index (BMI) [Ratio] 29.8 kg/m2 [facility] 05-12-2023 11:21-0400 Body temperature 98.2 [degF] [facility] 05-12-2023 11:21-0400 Body weight 78.9 kg [facility] 05-12-2023 11:21-0400 Respiratory rate 18 /min [facility] 05-06-2023 19:24-0400 Diastolic blood pressure 62 mm[Hg] [facility] 05-06-2023 19:24-0400 Systolic blood pressure 171 mm[Hg] [facility] 05-06-2023 18:45-0400 Heart rate 53 /min [facility] 05-06-2023 18:45-0400 Respiratory rate 17 /min [facility] 05-06-2023 18:45-0400 SaO2% (BldA) [Mass fraction] 94 % [facility] 05-06-2023 15:26-0400 Body height 162.56 cm [facility] 05-06-2023 15:26-0400 Body mass index (BMI) [Ratio] 29.7 kg/m2 [facility] 05-06-2023 15:26-0400 Body temperature 98.3 [degF] [facility] 05-06-2023 15:26-0400 Body weight 78.7 kg [facility] 04-22-2023 10:15-0400 Body weight 77.56 kg Nicole Zhang INSPECTOR [employer].TOY STUFFER Work Phone: [facility] 04-22-2023 10:15-0400 Diastolic blood pressure 68 mm[Hg] Nicole Zhang [employer].TOY STUFFER Work Phone: [facility] 04-22-2023 10:15-0400 Heart rate 57 /min Nicole Zhang [employer].TOY STUFFER Work Phone: [facility] 04-22-2023 10:15-0400 Respiratory rate 16 /min Nicole Zhang [employer].TOY STUFFER Work Phone: [facility] 04-22-2023 10:15-0400 SaO2% (BldA) [Mass fraction] 94 % Nicole Zhang [employer].TOY STUFFER Work Phone: [facility] 04-22-2023 10:15-0400 Systolic blood pressure 152 mm[Hg] Nicole Zhang [employer].TOY STUFFER Work Phone: [facility] 01-20-2023 10:36-0400 Diastolic blood pressure 82 mm[Hg] Max Rodriguez MD Work Phone: [facility] 01-20-2023 10:36-0400 Systolic blood pressure 148 mm[Hg] Max Rodriguez MD Work Phone: [facility] 01-20-2023 09:33-0400 Body height 161.3 cm Max Rodriguez MD Work Phone: [facility] 01-20-2023 09:33-0400 Body weight 76.2 kg Max Rodriguez MD Work Phone: [facility] 01-20-2023 09:33-0400 Heart rate 58 /min Max Rodriguez MD Work Phone: [facility] 01-20-2023 09:33-0400 SaO2% (BldA) [Mass fraction] 98 % Max Rodriguez MD Work Phone: [facility] 09-30-2022 10:15-0500 Body temperature 97.3 [degF] Max Rodriguez MD Work Phone: [facility] 09-30-2022 10:15-0500 Body weight 76.66 kg Max Rodriguez MD Work Phone: [facility] 09-30-2022 10:15-0500 Diastolic blood pressure 70 mm[Hg] Max Rodriguez MD Work Phone: [facility] 09-30-2022 10:15-0500 Heart rate 64 /min Max Rodriguez MD Work Phone: [facility] 09-30-2022 10:15-0500 Respiratory rate 14 /min Max Rodriguez MD Work Phone: [facility] 09-30-2022 10:15-0500 Systolic blood pressure 158 mm[Hg] Max Rodriguez MD Work Phone: [facility] 07-08-2022 17:01-0400 Body weight 77.11 kg Max Rodriguez MD Work Phone: [facility] 07-08-2022 17:01-0400 Diastolic blood pressure 86 mm[Hg] Max Rodriguez MD Work Phone: [facility] 07-08-2022 17:01-0400 Heart rate 60 /min Max Rodriguez MD Work Phone: [facility] 07-08-2022 17:01-0400 Respiratory rate 16 /min Max Rodriguez MD Work Phone: [facility] 07-08-2022 17:01-0400 Systolic blood pressure 128 mm[Hg] Max Rodriguez MD Work Phone: [facility] 03-20-2022 13:32-0400 Body weight 77.66 kg Max Rodriguez MD Work Phone: [facility] 03-20-2022 13:32-0400 Diastolic blood pressure 86 mm[Hg] Max Rodriguez MD Work Phone: [facility] 03-20-2022 13:32-0400 Heart rate 68 /min Max Rodriguez MD Work Phone: [facility] 03-20-2022 13:32-0400 Respiratory rate 16 /min Max Rodriguez MD Work Phone: [facility] 03-20-2022 13:32-0400 Systolic blood pressure 122 mm[Hg] Max Rodriguez MD Work Phone: [facility] 01-29-2022 08:04-0400 Body height 157.[address] Max Rodriguez Work Phone: [facility] Work Phone: 01-29-2022 08:04-0400 Body mass index (BMI) [Ratio] 31.6 kg/m2 Dr. Max Rodriguez Work Phone: [facility] Work Phone: 01-29-2022 08:04-0400 Body temperature 97.8 [degF] Dr. Max Rodriguez Work Phone: [facility] Work Phone: 01-29-2022 08:04-0400 Body weight 78.[address] Max Rodriguez Work Phone: [facility] Work Phone: 01-29-2022 08:04-0400 Diastolic blood pressure 79 mm[Hg] Dr. Max Rodriguez Work Phone: [facility] Work Phone: 01-29-2022 08:04-0400 Heart rate 50 /min Dr. Max Rodriguez Work Phone: [facility] Work Phone: 01-29-2022 08:04-0400 Respiratory rate 19 /min Dr. Max Rodriguez Work Phone: [facility] Work Phone: 01-29-2022 08:04-0400 SaO2% (BldA) [Mass fraction] 97 % Dr. Max Rodriguez Work Phone: [facility] Work Phone: 01-29-2022 [id number] Systolic blood pressure 152 mm[Hg] Dr. Max Rodriguez Work Phone: [facility] Work Phone: Encounters Encounter Date Encounter Type Care Provider Facility Start: 05-24-2025 End: 05-24-2025 Follow-up encounter Nicole Zhang APRN.TOY STUFFER Work Phone: [facility] Start: 05-23-2025 End: 05-23-2025 Subsequent hospital visit by physician [facility] [place] [facility] Comment on above: Encounter for screen ing for cardiovascular disorders [Z13.6] Start: 05-21-2025 End: 05-21-2025 Patient encounter procedure Max Rodriguez MD Work Phone: [facility] Comment on above: Arthritis of both kn ees (Primary Dx); Acute pain of right knee; Cyanosis; Decreased pulses in feet; Acquired hypothyroidism; Elevated hemoglobin A1c; Stage 3a chronic kidney disease (HCC); Low vitamin B12 level Coronary artery dise ase due to lipid rich plaque (Primary Dx); SOB (shortness of breath); Chest pain, unspecified type Start: 05-21-2025 End: 05-21-2025 ambulatory MAX RODRIGUEZ Facility:[facility] Start: 05-18-2025 End: 05-18-2025 Patient encounter procedure Nicole Zhang APRN.TOY STUFFER Work Phone: [facility] Comment on above: Medicare annual well ness visit, subsequent (Primary Dx); Acquired hypothyroidism; Essential hypertension; Mixed hyperlipidemia; Coronary artery 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; Valvular heart disease; Pulmonary emphysema, unspecified emphysema type (HCC); Severe obstructive sleep apnea AHI 32.5; GERD without esophagitis; Stage 3a chronic kidney disease (HCC); Macular degeneration of both eyes, unspecified type; Advance directive discussed with patient; Degeneration of intervertebral disc of lumbar region, unspecified whether pain present; Osteoarthritis, unspecified osteoarthritis type, unspecified site; Encounter for screening for cardiovascular disorders Start: 05-18-2025 End: 05-18-2025 ambulatory NICOLE ZHANG Facility:[facility] Start: 03-23-2025 End: 03-23-2025 Office outpatient visit 25 minutes Daniel Garcia Work Phone: [facility] Start: 03-23-2025 ambulatory Daniel Garcia [facility] Start: 03-22-2025 End: 03-22-2025 Chart abstracting Max Rodriguez MD Work Phone: [facility] [place] Comment on above: Outside Cardiology Start: 03-22-2025 End: 03-22-[address] Emmett Rasmussen MD -[facility] Work Phone: Start: 03-22-2025 End: 03-22-[address] Max Rodriguez MD Work Phone: [facility] Work Phone: Start: 02-09-2025 End: 04-11-2025 Follow-up encounter Dileep Urias MD Work Phone: [facility] Start: 02-07-2025 End: 02-07-2025 Office outpatient visit 25 minutes Papi Beltran MD Work Phone: Orthopaedics Comment on above: Trochanteric bursiti s of right hip (Primary Dx); Primary osteoarthritis of both knees Start: 02-07-2025 End: 02-07-2025 ambulatory PAPI BELTRAN Facility:[facility] Start: 02-07-2025 End: 02-07-2025 Subsequent hospital visit by physician [facility] Work Phone: Radiology Comment on above: Pain [R52] Start: 02-05-2025 End: 02-05-2025 Chart abstracting Max Rodriguez MD Work Phone: [facility] Comment on above: Outside Fyap-Pck-HNR Ordered Start: 02-01-2025 End: 02-01-[address] Max Rodriguez MD Work Phone: [facility] Work Phone: Start: 02-01-2025 End: 02-01-[address] Emmett Rasmussen MD -Laboratory Work Phone: Start: 02-01-2025 End: 02-01-2025 ambulatory Max Rodriguez Facility:[facility] Start: 01-26-2025 End: 01-26-2025 Follow-up encounter Max Rodriguez MD Work Phone: [facility] Comment on above: Results Start: 01-26-2025 End: 01-26-2025 Patient encounter procedure Max Rodriguez MD Work Phone: [facility] Comment on above: SOB (shortness of br eath) (Primary Dx); Lymphadenopathy; Acquired hypothyroidism; Essential hypertension; Low vitamin B12 level Start: 01-26-2025 End: 01-26-2025 ambulatory MAX RODRIGUEZ Facility:[facility] Start: 01-25-2025 End: 01-25-2025 Telephone encounter Max Rodriguez MD Work Phone: [facility] Comment on above: Results Start: 01-24-2025 ambulatory Max Rodriguez Facility :[facility] Start: 01-24-2025 Non-patient / Non-visit Dr. Delores [facility] -[facility] Start: 01-24-2025 End: 01-24-[address] Max Rodriguez MD Work Phone: [facility] Work Phone: Start: 01-24-2025 End: 01-24-[address] Max Rodriguez MD -Cardiovascular Services Work Phone: Start: 01-24-2025 End: 01-24-2025 ambulatory Max Rodriguez Facility:[facility] Start: 01-22-2025 End: 01-22-2025 ambulatory ANGELA HAINES Facility:[facility] Start: 01-22-2025 End: 01-22-2025 Patient encounter procedure Angela Haines MD Work Phone: Pulmonary Medicine Comment on above: HTAFIELD (dyspnea on exer tion) (Primary Dx); Chronic cough; Former cigarette smoker; Coronary artery disease involving [place] coronary artery of [place]e heart without angina pectoris Start: 01-22-2025 End: 01-22-2025 ambulatory [facility] Work Phone: [facility] Comment on above: Spirometry Start: 01-22-2025 End: 01-22-2025 Patient encounter procedure [facility] Work Phone: [facility] Start: 01-19-2025 End: 01-19-2025 Patient encounter procedure Max Rodriguez MD Work Phone: [facility] Comment on above: Arthritis of both kn ees (Primary Dx); Chronic pain of both knees Start: 01-19-2025 End: 01-19-2025 ambulatory MAX RODRIGUEZ Facility:[facility] Start: 01-16-2025 End: 01-17-2025 Telephone encounter Max Rodriguez MD Work Phone: [facility] Comment on above: Results Start: 01-16-2025 End: 01-16-[address] Max Rodriguez MD Work Phone: [facility] Work Phone: Start: 01-16-2025 End: 01-16-[address] Max Rodriguez MD -Radiology, [facility] Work Phone: Start: 01-15-2025 End: 01-26-2025 Orders Only Papi Beltran MD Work Phone: Appointment Center Comment on above: Pain (Primary Dx) Start: 01-10-2025 End: 01-10-2025 ambulatory MAX RODRIGUEZ Facility:[facility] Start: 01-10-2025 End: 01-10-2025 Patient encounter procedure Max Rodriguez MD Work Phone: [facility] Comment on above: Pharyngitis, unspeci fied etiology (Primary Dx); Neck mass; SOB (shortness of breath); HATFIELD (dyspnea on exertion); Decreased stamina; Coronary artery 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; Pulmonary emphysema, unspecified emphysema type (HCC); Dysphagia, unspecified type Start: 01-06-2025 End: 01-08-2025 Refill Max Rodriguez MD Work Phone: [facility] Comment on above: Refill Request Start: 01-03-2025 End: 01-03-2025 Refill Nicole Zhang APRN.CNP Work Phone: [facility] [place] Comment on above: Refill Request Start: 11-25-2024 End: 11-27-2024 Refill Max Rodriguez MD Work Phone: [facility] Comment on above: Refill Request Start: 10-23-2024 End: 10-23-2024 ambulatory [facility] Start: 10-18-2024 End: 10-18-2024 ambulatory [facility] Start: 10-11-2024 End: 10-11-2024 Telephone encounter Dora Whitman PA-C Work Phone: [facility] Comment on above: Results Start: 10-11-2024 End: 10-11-2024 ambulatory [facility] Start: 10-10-2024 End: 10-10-2024 ambulatory MAX RODRIGUEZ Facility:[facility] Start: 10-09-2024 End: 10-10-2024 Refill Max Rodriguez MD Work Phone: [facility] [place] Comment on above: Refill Request Start: 10-06-2024 End: 10-06-2024 Refill Dora Whitman PA-C Work Phone: [facility] Comment on above: Refill Request Start: 10-04-2024 End: 10-04-2024 [facility] Start: 09-27-2024 End: 09-27-2024 ambulatory [facility] Start: 09-25-2024 End: 09-25-2024 ambulatory [facility] Start: 09-20-2024 End: 09-20-2024 ambulatory MAX [facility] Start: 09-19-2024 End: 09-19-2024 ambulatory MAX RODRIGUEZ Facility:[facility] Start: 09-19-2024 End: 09-19-2024 Patient encounter procedure Max Rodriguez MD Work Phone: [facility] [place] Comment on above: Arthritis of both kn ees (Primary Dx); Chronic pain of both knees Start: 09-18-2024 End: 09-18-2024 ambulatory [facility] Start: 09-15-2024 End: 09-15-2024 Patient encounter procedure Stephan Brent Joshua [employer]-TOY STUFFER Work Phone: [facility] Comment on above: Oral mucocele (Prima ry Dx) Start: 09-15-2024 End: 09-15-2024 ambulatory STEPHAN LEWIS [facility] Start: 09-13-2024 End: 09-13-2024 ambulatory [facility] Start: 09-11-2024 End: 09-11-2024 ambulatory [facility] Start: 09-06-2024 End: 09-06-2024 ambulatory [facility] Start: 09-04-2024 End: 09-04-2024 ambulatory [facility] Start: 08-30-2024 End: 08-30-2024 ambulatory [facility] Start: 08-23-2024 End: 08-23-2024 ambulatory [facility] Start: 08-21-2024 End: 08-21-2024 [facility] Start: 08-09-2024 End: 08-09-2024 Daniel Garcia Work Phone: [facility] Start: 08-09-2024 ambulatory Daniel Garcia [facility] Start: 08-03-2024 End: 08-03-2024 ambulatory Max Rodriguez MD Work Phone: [facility] [place] Comment on above: Vaccines Start: 08-02-2024 End: 08-02-2024 ambulatory MAX RODRIGUEZ Facility:[facility] Start: 08-02-2024 End: 08-02-2024 Patient encounter procedure Max Rodriguez MD Work Phone: [facility] [place] Comment on above: Mixed hyperlipidemia (Primary Dx); Encounter for immunization; Essential hypertension; Elevated hemoglobin A1c; Acquired hypothyroidism; GERD without esophagitis; Elevated hemoglobin (HCC); Coronary artery 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; Bilateral carotid artery stenosis; Pulmonary emphysema, unspecified emphysema type (HCC); Stage 3a chronic kidney disease (HCC); Recurrent major depressive disorder, in partial remission (HCC); Anxiety; Low vitamin B12 level; Pain in right hip; Right lumbar pain; Medication management; Osteoarthritis, unspecified osteoarthritis type, unspecified site Start: 07-23-2024 End: 07-24-2024 Telephone encounter Max Rodriguez MD Work Phone: [facility] Comment on above: Results Start: 07-20-2024 End: 07-20-2024 ambulatory MAX RODRIGUEZ Facility:[facility] Start: 07-06-2024 End: 07-07-2024 Refill Dora Whitman PA-C Work Phone: [facility] Comment on above: Refill Request Start: 05-17-2024 End: 05-17-2024 Office outpatient visit 25 minutes Daniel Garcia Work Phone: [facility] Start: 05-16-2024 End: 05-16-2024 Patient encounter procedure Max Rodriguez MD Work Phone: [facility] Comment on above: Arthritis of both kn ees (Primary Dx); Chronic pain of both knees Start: 04-28-2024 End: 04-28-2024 Patient encounter procedure Max Rodriguez MD Work Phone: [facility] Comment on above: Essential hypertensi on (Primary Dx); Mixed hyperlipidemia; Elevated hemoglobin A1c; Acquired hypothyroidism; Coronary artery 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; Elevated hemoglobin (HCC); GERD without esophagitis; Stage 3a chronic kidney disease (HCC); Pulmonary emphysema, unspecified emphysema type (HCC); Bilateral carotid artery stenosis; Recurrent major depressive disorder, in partial remission (HCC); Anxiety; Low vitamin B12 level; Severe obstructive sleep apnea AHI 32.5; Over weight; Need for vaccination Start: 04-10-2024 Refill Dora Keane on PA-C Work Phone: [facility] Comment on above: Refill Request Start: 03-17-2024 End: 03-17-2024 Patient encounter procedure Nicole Zhang APRN.CNP Work Phone: [facility] Comment on above: Essential hypertensi on (Primary Dx); Acquired hypothyroidism Start: 02-25-2024 End: 02-25-2024 Daniel Garcia Work Phone: [facility] [place] Start: 02-10-2024 Refill Max patel MD Work Phone: [facility] Start: 01-27-2024 Telephone encounter Max Rodriguez MD Work Phone: [facility] Comment on above: Results Start: 01-26-2024 End: 01-26-2024 Patient encounter procedure Max Rodriguez MD Work Phone: [facility] Comment on above: Medicare annual well [facility] visit, subsequent (Primary Dx); Essential hypertension; Mixed hyperlipidemia; Elevated hemoglobin A1c; Acquired hypothyroidism; Elevated hemoglobin (HCC); GERD without esophagitis; Stage 3a chronic kidney disease (HCC); Pulmonary emphysema, unspecified emphysema type (HCC); Coronary artery 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; Bilateral carotid artery stenosis; Recurrent major depressive disorder, in partial remission (HCC); Anxiety; Low vitamin B12 level; Obesity, Class I, BMI 30-34.9; Ex-smoker; Arthritis of both knees; Advance directive discussed with patient; Severe obstructive sleep apnea AHI 32.5; Osteoarthritis, unspecified osteoarthritis type, unspecified site; Jaundice; Medication management Start: 01-21-2024 End: 01-21-[address] Max Rodriguez Work Phone: [facility] Work Phone: Start: 01-20-2024 Chart abstracting Max verde MD Work Phone: [facility] Comment on above: Outside Echo Start: 01-18-2024 Non-patient / Non-visit Dr. Alexis Rodriguez Work Phone: [facility] Start: 01-18-2024 End: 01-18-[address] Max Rodriguez Work Phone: [facility] Work Phone: Start: 01-18-2024 End: 01-18-[address] Max Rodriguez Work Phone: [facility]Cardi[facility] Work Phone: Start: 01-10-2024 End: 01-10-2024 Patient encounter procedure Bob Whiteside MD Work Phone: Orthopaedics Comment on above: Chronic pain of both knees (Primary Dx); Primary osteoarthritis of both knees Start: 01-07-2024 Refill Max [facility]el MD [facility] Comment on above: Refill Request Start: 12-24-2023 Telephone encounter Max Rodriguez MD [facility] Comment on above: Results Start: 12-21-2023 Telephone encounter Katherin Schmidt MA [facility] Comment on above: Orders Results Start: 12-21-2023 End: 12-21-2023 Patient encounter procedure Max Rodriguez MD Work [facility] Comment on above: Coronary artery dise ase due to lipid rich plaque (Primary Dx); Decreased stamina; HATFIELD (dyspnea on exertion); Dizziness; Jaundice Start: 12-16-2023 Chart abstracting Max verde MD Work Phone: [facility] Comment on above: Outside Pulmonary Start: 12-16-2023 End: 12-16-[address] Max Rodriguez Work Phone: [facility] [place] Work Phone: Start: 12-14-2023 Telephone encounter Katherin Schmidt MA [facility] Comment on above: Appointment; Results Start: 12-13-2023 End: 12-13-2023 Emergency department patient visit [facility]Emergency Department Work Phone: Start: 12-09-2023 Telephone encounter Max Rodriguez MD Work Phone: [facility] Comment on above: Results Start: 12-08-2023 End: 12-08-2023 Subsequent hospital visit by physician X[facility] Work Phone: Radiology Comment on above: Acute pain of right shoulder [M25.511] Start: 12-03-2023 End: 12-03-2023 Office outpatient visit 25 minutes Daniel Garcia Work Phone: [facility] Start: 10-22-2023 End: 10-22-2023 Patient encounter procedure Nicole Zhang APRN.CNP Work Phone: [facility] Comment on above: Essential hypertensi on (Primary Dx) Start: 10-17-2023 Telephone encounter Max Rodriguez MD Work Phone: [facility] Comment on above: Results Start: 10-11-2023 Refill Dora Keane on PA-C Work Phone: [facility] Comment on above: Refill Request Start: 09-24-2023 End: 09-24-2023 Daniel Garcia Work Phone: [facility] Start: 08-30-2023 Telephone encounter Max Rodriguez MD Work Phone: [facility] Comment on above: Results Start: 08-30-2023 End: 08-30-2023 Patient encounter procedure Bob Whiteside MD Work Phone: Orthopaedics Comment on above: Primary osteoarthrit is of both knees (Primary Dx); Chronic pain of both knees Start: 08-30-2023 End: 08-30-2023 Patient encounter procedure Nicole Trianajade STANLEY Work Phone: [facility] Comment on above: Essential hypertensi on (Primary Dx); Encounter for immunization Start: 07-23-2023 End: 07-23-2023 Patient encounter procedure Max Rodriguez MD Work Phone: [facility] Comment on above: Essential hypertensi on (Primary Dx); Mixed hyperlipidemia; Elevated hemoglobin A1c; Elevated hemoglobin (HCC); Coronary artery 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; Pulmonary emphysema, unspecified emphysema type (HCC); Stage 3a chronic kidney disease (HCC); GERD without esophagitis; Acquired hypothyroidism; Anxiety; Recurrent major depressive disorder, in partial remission (HCC); Low vitamin B12 level; Obesity, Class I, BMI 30-34.9; Smoker; Medication management Start: 07-10-2023 Refill Max patel MD Work Phone: [facility] Comment on above: Refill Request Start: 07-07-2023 Telephone encounter Max Rodriguez MD Work Phone: [facility] Comment on above: Results Start: 06-25-2023 End: 06-25-2023 Office outpatient visit 25 minutes Daniel Garcia Work Phone: [facility] Start: 05-27-2023 End: 05-28-2023 Patient encounter procedure Bob Whiteside MD Work Phone: Orthopaedics Comment on above: Primary osteoarthrit is of both knees (Primary Dx); Chronic pain of both knees Start: 05-19-2023 Orders Only Bob Whiteside MD Work Phone: Orthopaedics Comment on above: Pain in both knees, unspecified chronicity (Primary Dx) Start: 05-13-2023 Chart abstracting Max verde MD Work Phone: [facility] Start: 05-13-2023 Telephone encounter Nicole K nighat [employer]PECTOR [employer].TOY STUFFER Work Phone: [facility] Comment on above: Results Start: 05-12-2023 End: 05-12-2023 [facility] Start: 05-06-2023 End: 05-06-2023 Emergency department patient visit [facility]Emergency [facility] Work Phone: Start: 04-22-2023 End: 04-22-2023 Patient encounter procedure Nicole Zhang INSPECTOR [employer].TOY STUFFER Work Phone: [facility] Comment on above: Discolored skin (Sangita haroldo Dx); Arthritis of both knees; Encounter for immunization Start: 04-16-2023 End: 04-16-2023 Daniel Garcia Work Phone: [facility] Start: 04-09-2023 End: 04-09-2023 Daniel Garcia Work Phone: [facility] Start: 04-08-2023 Refill Max patel MD Work Phone: [facility] Comment on above: Refill Request Start: 02-22-2023 End: 02-22-2023 Patient encounter procedure Bob Whiteside MD Work Phone: Orthopaedics Comment on above: Primary osteoarthrit is of both knees (Primary Dx) Start: 02-12-2023 End: 02-12-2023 Office outpatient visit 25 minutes Daniel Garcia Work Phone: [facility] Start: 01-25-2023 Refill Dora Keane on PA-C Work Phone: [facility] Comment on above: Refill Request Start: 01-20-2023 End: 01-20-2023 Patient encounter procedure Max Rodriguez MD Work Phone: [facility] Comment on above: Medicare annual well ness visit, subsequent (Primary Dx); Essential hypertension; Mixed hyperlipidemia; Acquired hypothyroidism; Elevated hemoglobin (HCC); Elevated hemoglobin A1c; Coronary artery 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; Pulmonary emphysema, unspecified emphysema type (HCC); Stage 3a chronic kidney disease (HCC); GERD without esophagitis; Anxiety; Recurrent major depressive disorder, in partial remission (HCC); Low vitamin B12 level; Severe obstructive sleep apnea AHI 32.5; Obesity, Class I, BMI 30-34.9; Osteoarthritis, unspecified osteoarthritis type, unspecified site; Smoker; Macular degeneration of both eyes, unspecified type; Advance directive discussed with patient; Medication management; Mass of breast, unspecified laterality Start: 01-04-2023 Refill Max patel MD Work Phone: [facility] Comment on above: Refill Request Start: 12-11-2022 End: 12-11-2022 Daniel Garcia Work Phone: [facility] Start: 11-12-2022 End: 11-12-2022 Patient encounter procedure Bob Whiteside MD Work Phone: Orthopaedics Comment on above: Chronic pain of both knees (Primary Dx); Primary osteoarthritis of both knees Start: 10-16-2022 End: 10-16-2022 Office outpatient new 45 minutes Daniel Garcia Work Phone: [facility] Start: 10-04-2022 Telephone encounter Max Rodriguez MD Work Phone: [facility] Comment on above: Results Start: 09-30-2022 End: 09-30-2022 Patient encounter procedure Max Rodriguez MD Work Phone: [facility] Comment on above: Urine frequency (Sangita haroldo Dx); Arthritis of both knees; Osteoarthritis, unspecified osteoarthritis type, unspecified site; Mass of right breast, unspecified quadrant Start: 08-10-2022 End: 08-10-2022 Patient encounter procedure Bob Whiteside MD Work Phone: Orthopaedics Comment on above: Primary osteoarthrit is of both knees (Primary Dx); Chronic pain of both knees Start: 07-08-2022 End: 07-08-2022 Patient encounter procedure Max Rodriguez MD Work Phone: [facility] Comment on above: Essential hypertensi on (Primary Dx); Mixed hyperlipidemia; Acquired hypothyroidism; Elevated hemoglobin A1c; Pulmonary emphysema, unspecified emphysema type (HCC); Elevated hemoglobin (HCC); Coronary artery 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; History of non-ST elevation myocardial infarction (NSTEMI); Anxiety; Recurrent major depressive disorder, in partial remission (HCC); Low vitamin B12 level; Obesity, Class I, BMI 30-34.9; Severe obstructive sleep apnea AHI 32.5; Osteoarthritis, unspecified osteoarthritis type, unspecified site; Arthritis of both knees; Smoker; Lumbar radicular pain; Acute cystitis without hematuria; RLQ abdominal pain; Low serum calcium; Medication management; GERD without esophagitis Start: 04-30-2022 End: 04-30-2022 Patient encounter procedure Bob Whiteside MD Work Phone: Orthopaedics Comment on above: Primary osteoarthrit is of both knees (Primary Dx); Chronic pain of both knees Start: 04-27-2022 ambulatory Fernanda Armstrong RN Work Phone: [facility] Comment on above: [facility] ([employer] Enrollment) Start: 04-14-2022 Non-patient / Non-visit Dr. Alexis Rodriguez Work Phone: [facility] Start: 04-13-2022 End: 04-13-[address] Max Rodriguez Work Phone: [facility]-Pulmonary Services/Neurology Start: 03-22-2022 Telephone encounter Max Rodriguez MD Work Phone: [facility] Comment on above: Results Start: 03-20-2022 End: 03-20-2022 Patient encounter procedure Max Rodriguez MD Work Phone: [facility] Comment on above: Arthritis of both kn ees (Primary Dx); Osteoarthritis, unspecified osteoarthritis type, unspecified site; Medication management Start: 01-29-2022 End: 01-29-[address] Max Rodriguez [facility] Start: 12-03-2021 Patient encounter procedure Max Rodriguez MD Work Phone: [facility] Work Phone: Start: 03-31-2019 Patient encounter procedure Max Rodriguez Facility:[facility] Procedures Date Procedure Procedure Detail Performing Clinician Start: 05-23-2025 Unlisted computed tomography procedure Nicole Zhang INSPECTOR [employer]ACH[employer].TOY STUFFER Work Phone: Start: 03-23-2025 End: 03-23-2025 Bevacizumab injection Daniel Garcia Start: 03-23-2025 End: 03-23-2025 Computerized ophthalmic imaging retina Daniel Garcia Start: 03-23-2025 End: 03-23-2025 Intravitreal njx pharmacologic agt spx Daniel Garcia Start: 01-24-2025 Cardiovascular stres s test using pharmacologic stress agent Dr. Max Rodriguez MD Work Phone: Start: 01-22-2025 Co diffusing capacity E cornelia Haines MD Work Phone: Start: 01-16-[address] Jai Rodriguez MD Work Phone: Start: 08-09-2024 End: 08-09-2024 Bevacizumab injection Daniel Garcia Start: 08-09-2024 End: 08-09-2024 Computerized ophthalmic imaging retina Daniel Garcia Start: 08-09-2024 End: 08-09-2024 Intravitreal njx pharmacologic agt spx Daniel Garcia Start: 07-20-2024 Thyrotropin [Units/v olume] in Serum or Plasma Stephan Joshua INSPECTOR [employer]S-TOY STUFFER Work Phone: Start: 05-17-2024 End: 05-17-2024 Bevacizumab injection Daniel Garcia MD Start: 05-17-2024 End: 05-17-2024 Computerized ophthalmic imaging retina Daniel Garcia MD Start: 05-17-2024 End: 05-17-2024 Intravitreal njx pharmacologic agt spx Daniel Garcia MD Start: 04-28-2024 [facility] COVI D-19 VACCINE () AGE 12+ YR Max Rodriguez MD Work Phone: Start: 02-25-2024 End: 02-25-2024 Bevacizumab injection Daniel Garcia MD Start: 02-25-2024 End: 02-25-2024 Computerized ophthalmic imaging retina Daniel Garcia MD Start: 02-25-2024 End: 02-25-2024 Intravitreal njx pharmacologic agt spx Daniel Garcia MD Start: 01-10-2024 Arthrocentesis aspir &/inj major jt/bursa w/o us Bob Whiteside MD Work Phone: Start: 12-13-2023 Plain chest X-ray Start: 12-13-2023 CT of head without contrast Start: 12-13-[address] Grazyna Rdoriguez Work Phone: Start: 12-08-2023 Radex shoulder compl ete minimum 2 views Max Rodriguez MD Work Phone: Start: 12-03-2023 End: 12-03-2023 Bevacizumab injection Daniel Garcia MD Start: 12-03-2023 End: 12-03-2023 Computerized ophthalmic imaging retina Daniel Garcia MD Start: 12-03-2023 End: 12-03-2023 Intravitreal njx pharmacologic agt spx Daniel Garcia MD Start: 09-24-2023 End: 09-24-2023 Bevacizumab injection Daniel Garcia MD Start: 09-24-2023 End: 09-24-2023 Computerized ophthalmic imaging retina Daniel Garcia MD Start: 09-24-2023 End: 09-24-2023 Intravitreal njx pharmacologic agt spx Daniel Garcia MD Start: 08-30-2023 Arthrocentesis aspir &/inj major jt/bursa w/o us Bob Whiteside MD Work Phone: Start: 08-30-2023 [facility] COVI D-19 VACCINE (2022- SEASON) AGE 12+ YR Nicole Zhang APRN.CNP Work Phone: Start: 06-25-2023 End: 06-25-2023 Bevacizumab injection Daniel Garcia MD Start: 06-25-2023 End: 06-25-2023 Computerized ophthalmic imaging retina Daniel Garcia MD Start: 06-25-2023 End: 06-25-2023 Intravitreal njx pharmacologic agt spx Daniel Garcia MD Start: 05-12-2023 Plain chest X-ray Start: 05-06-2023 Plain chest X-ray Start: 04-16-2023 End: 04-16-2023 Bevacizumab injection Daniel Garcia MD Start: 04-16-2023 End: 04-16-2023 Computerized ophthalmic imaging retina Daniel Garcia MD Start: 04-16-2023 End: 04-16-2023 Intravitreal njx pharmacologic agt spx Daniel Garcia MD Start: 02-22-2023 Arthrocentesis aspir &/inj major jt/bursa w/o us Bob Whiteside MD Work Phone: Start: 02-12-2023 End: 02-12-2023 Bevacizumab injection Daniel Garcia MD Start: 02-12-2023 End: 02-12-2023 Computerized ophthalmic imaging retina Daniel Garcia MD Start: 02-12-2023 End: 02-12-2023 Intravitreal njx pharmacologic agt spx Daniel Garcia MD Start: 01-20-2023 Drug tst prsmv instr mnt chem analyzers pr date Max Rodriguez MD Work Phone: Start: 12-11-2022 End: 12-11-2022 Bevacizumab injection Daniel Garcia MD Start: 12-11-2022 End: 12-11-2022 Computerized ophthalmic imaging retina Daniel Garcia MD Start: 12-11-2022 End: 12-11-2022 Intravitreal njx pharmacologic agt spx Daniel Garcia MD Start: 11-12-2022 Arthrocentesis aspir &/inj major jt/bursa w/o us Bob Whiteside MD Work Phone: Start: 10-16-2022 End: 10-16-2022 Bevacizumab injection Daniel Garcia MD Start: 10-16-2022 End: 10-16-2022 Fundus photography w/interpretation & report Daniel Garcia MD Start: 10-16-2022 End: 10-16-2022 Intravitreal njx pharmacologic agt spx Daniel Garcia MD Start: 09-30-2022 Culture bacterial quanttative colony count urine Max Rodriguez MD Work Phone: Start: 09-30-2022 Urnls dip stick/tabl et rgnt auto w/o microscopy Max Rodriguez MD Work Phone: Start: 08-10-2022 Arthrocentesis aspir &/inj major jt/bursa w/o Bob Whiteside MD Work Phone: Start: 07-08-2022 Urnls dip stick/tabl et rgnt auto w/o microscopy Max Rodriguez MD Work Phone: Start: 04-30-2022 Arthrocentesis aspir &/inj major jt/bursa w/o Bob Whiteside MD Work Phone: Start: 03-20-2022 Drug tst prsmv instr mnt chem analyzers pr date Max Rodriguez MD Work Phone: Start: 12-21-2019 History of placement of stent for coronary artery disease History of coronary artery stent placement Dr. Max Rodriguez Work Phone: Comment on above: PCI-BMS-Mid RCA w/ 3 .0 x 15 mm Vision Stent 01/21/2010; PCI-MARCOS-Mid LCx w/ 2.25 x 28 mm Synergy 12/21/2019 Plan of Treatment Date Care Activity Detail Author Start: 04-22-2033 DTaP/Tdap/Td Vaccine s (2 - Td or Tdap) DTaP/Tdap/Td Vaccines (2 - Td or Tdap) [facility] Start: 04-22-2033 Urine microalbumin profile [facility] Start: 01-20-2028 Diabetes Screening Diabetes Screenin [facility] Start: 07-20-2027 Diabetes Screening Diabetes Screenin g [facility] Start: 12-31-2026 Diabetes Screening Diabetes Screenin g [facility] Start: 12-23-2026 Diabetes Screening Diabetes Screenin g [facility] Start: 12-21-2026 Diabetes Screening Diabetes Screenin g [facility] Start: 07-06-2026 DIABETES SCREEN DIABETES SCREEN [facility] Start: 07-06-2026 Diabetes Screening Diabetes Screenin g [facility] Start: 01-19-2026 Hepatitis B surface antibody level LDL Cholesterol [facility] Start: 01-12-2026 DIABETES SCREEN DIABETES SCREEN [facility] Start: 09-24-2025 End: 09-24-2025 Patient encounter procedure 09/24/2025 10:20 AM EST Office Visit [facility] [address] [place] [address] Max Rodriguez MD [address] [place] [address] 4 mo knee injection (40 min per PCP) [facility] Comment on above: 4 mo knee injection (40 min per PCP) Start: 08-20-2025 End: 08-20-2025 Patient encounter procedure 08/20/2025 9:40 AM EDT Office Visit [facility] [address] [place] [address] Max Rodriguez MD [address] [place] [address] follow up [facility] Comment on above: follow up Start: 08-08-2025 End: 11-07-2025 Basic metabolic 2000 panel - Serum or Plasma BASIC METABOLIC PANEL Lab Routine Stage 3a chronic kidney disease (HCC) Expected: 08/08/2025, Expires: 11/07/2025 [facility] Comment on above: Expected: 08/08/2025 , Expires: 11/07/2025 Start: 08-08-2025 End: 11-07-2025 Cobalamin (Vitamin B12) [Mass/volume] in Serum or Plasma VITAMIN B12 Lab Routine Low vitamin B12 level Expected: 08/08/2025, Expires: 11/07/2025 [facility] Comment on above: Expected: 08/08/2025 , Expires: 11/07/2025 Start: 08-08-2025 End: 11-07-2025 Hemoglobin A1c in Blood HEMOGLOBIN A1C Lab Routine Elevated hemoglobin A1c Expected: 08/08/2025, Expires: 11/07/2025 [facility] Comment on above: Expected: 08/08/2025 , Expires: 11/07/2025 Start: 08-08-2025 End: 11-07-2025 Thyrotropin [Units/volume] in Serum or Plasma THYROID STIMULATING HORMONE Lab Routine Acquired hypothyroidism Expected: 08/08/2025, Expires: 11/07/2025 [facility] Comment on above: Expected: 08/08/2025 , Expires: 11/07/2025 Start: 07-20-2025 Diabetes mellitus screening Diabetes Screening [facility] Start: 07-20-2025 Hemoglobin A1c measurement Cindy betes: Hemoglobin A1C [facility] Start: 07-20-2025 Thyroid stimulating hormone measurement TSH Level [facility] Start: 07-09-2025 Influenza vaccination Influenza Vacc ine (#1) [facility] Start: 06-27-2025 Anne Marie Garza - 3 Mos IO AVN OS [facility] Work Phone: Start: 06-11-2025 DIABETES SCREEN DIABETES SCREEN [facility] Start: 06-11-2025 End: 06-11-2025 Patient encounter procedure 06/11/2025 9:30 AM EDT Office Visit Cardiology [address] [place] [address] Antonio Whatley MD [address] [place], [place] [id number] Coronary artery 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 [I25.10, I25.83] Cardiology Comment on above: Coronary artery dise ase due to lipid rich plaque [I25.10, I25.83] Start: 06-11-2025 End: 06-11-2025 ambulatory 06/11/2025 8:45 AM EDT Procedure Cardiology [address] [id number] Coronary artery 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 [I25.10, I25.83] Cardiology Comment on above: Coronary artery dise ase due to lipid rich plaque [I25.10, I25.83] Start: 06-08-2025 End: 06-08-2025 Patient encounter procedure 06/08/2025 12:30 PM EDT Office Visit Vasculary Surgery [address] [place] [address] Dx: Cyanosis [R23.0]; Decreased pulses in feet [R09.89] [facility] Comment on above: Dx: Cyanosis [R23.0] ; Decreased pulses in feet [R09.89] Start: 05-23-2025 End: 05-23-2025 Patient encounter procedure RADIO CT [facility] Comment on above: Dx: Encounter for sc reening for cardiovascular disorders [Z13.6] $95 COPAY/Dx: Encoun ter for screening for cardiovascular disorders [Z13.6] Start: 05-21-2025 End: 05-21-2025 Patient encounter procedure 05/21/2025 9:20 AM EDT Office Visit [facility] [address] [place] [id number] Max Rodriguez MD [address] [place], [place] [address] bilateral knee injections [facility] Comment on above: bilateral knee injec tions Start: 05-18-2025 End: 05-18-2025 Patient encounter procedure 05/18/2025 12:40 PM EDT Office Visit [facility] [address] [place], [place] [id number] Nicole Zhang APRN.[facility] [address] [place], [place] [id number] Wellness (last seen on 01/26/25 but was ill so did not get a wellness) [facility] Comment on above: Wellness (last seen on 01/26/25 but was ill so did not get a wellness) Start: 02-07-2025 End: 02-07-2025 Patient encounter procedure Radiology Comment on above: rt hip rt hip revision / xr 1st R hip & leg frontal Start: 01-30-2025 Covid-19 Vaccine ( season) Covid-19 Vaccine ( season) [facility] Start: 01-26-2025 End: 01-26-2025 Patient encounter procedure [facility] Comment on above: bilateral knee injec tions Medicare wellness SOB (shortness of br eath) [R06.02]; HATFIELD (dyspnea on exertion) [R06.09]; Decreased stamina [R53.83]; Coronary artery 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 [I25.10, I25.83] Start: 01-22-2025 End: 01-22-2025 Patient encounter procedure 01/22/2025 12:45 PM EDT Office Visit Pulmonary Medicine [address] [place], [place] [id number] Angela Haines MD [address] [place] [address] SOB (shortness of breath) [R06.02]; HATFIELD (dyspnea on exertion) [R06.09]; Pulmonary emphysema, unspecified emphysema type (HCC) [J43.9] Pulmonary Medicine Comment on above: SOB (shortness of br eath) [R06.02]; HATFIELD (dyspnea on exertion) [R06.09]; Pulmonary emphysema, unspecified emphysema type (HCC) [J43.9] Start: 01-22-2025 End: 01-22-2025 ambulatory 01/22/2025 11:30 AM EDT Procedure PULM LAB [facility] [address] [place] [address] Wstr, Pulm Lab [facility] [address] [place] [address] SOB (shortness of breath) [R06.02]; HATFIELD (dyspnea on exertion) [R06.09]; Pulmonary emphysema, unspecified emphysema type (HCC) [J43.9] PUL[facility] Comment on above: SOB (shortness of br eath) [R06.02]; HATFIELD (dyspnea on exertion) [R06.09]; Pulmonary emphysema, unspecified emphysema type (HCC) [J43.9] Start: 01-22-2025 End: 01-22-2025 ambulatory PULM LAB [facility] Comment on above: SOB (shortness of br eath) [R06.02]; HATFIELD (dyspnea on exertion) [R06.09]; Pulmonary emphysema, unspecified emphysema type (HCC) [J43.9] Start: 01-19-2025 End: 01-19-2025 Patient encounter procedure [facility] [place] Comment on above: Medicare wellness bilateral knee injec tions Start: 01-12-2025 End: 04-13-2025 CBC W Auto Differential panel - Blood COMPLETE BLOOD COUNT AND DIFFERENTIAL Lab Routine Acquired hypothyroidism Elevated hemoglobin (HCC) Stage 3a chronic kidney disease (HCC) Low vitamin B12 level Expected: 01/12/2025, Expires: 04/13/2025 [facility] Comment on above: Expected: 01/12/2025 , Expires: 04/13/2025 Start: 01-12-2025 End: 04-13-2025 Cobalamin (Vitamin B12) [Mass/volume] in Serum or Plasma VITAMIN B12 Lab Routine GERD without esophagitis Low vitamin B12 level Medication management Expected: 01/12/2025, Expires: 04/13/2025 [facility] Work Phone: Comment on above: Expected: 01/12/2025 , Expires: 04/13/2025 Start: 01-12-2025 End: 04-13-2025 Comprehensive metabolic 2000 panel - Serum or Plasma COMPREHENSIVE METABOLIC PANEL Lab Routine Essential hypertension Mixed hyperlipidemia Stage 3a chronic kidney disease (HCC) Expected: 01/12/2025, Expires: 04/13/2025 [facility] Comment on above: Expected: 01/12/2025 , Expires: 04/13/2025 Start: 01-12-2025 End: 04-13-2025 Hemoglobin A1c in Blood HEMOGLOBIN A1C Lab Routine Elevated hemoglobin A1c Expected: 01/12/2025, Expires: 04/13/2025 [facility] Comment on above: Expected: 01/12/2025 , Expires: 04/13/2025 Start: 01-12-2025 End: 04-13-2025 LIPID PANEL, NONFASTING LIPID PANEL, NONFASTING Lab Routine Essential hypertension Mixed hyperlipidemia Coronary artery 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 Bilateral carotid artery stenosis Expected: 01/12/2025, Expires: 04/13/2025 [facility] Comment on above: Expected: 01/12/2025 , Expires: 04/13/2025 Start: 01-12-2025 End: 04-13-2025 Magnesium [Mass/volume] in Serum or Plasma MAGNESIUM Lab Routine GERD without esophagitis Medication management Expected: 01/12/2025, Expires: 04/13/2025 [facility] Comment on above: Expected: 01/12/2025 , Expires: 04/13/2025 Start: 01-12-2025 End: 04-13-2025 Thyrotropin [Units/volume] in Serum or Plasma THYROID STIMULATING HORMONE Lab Routine Acquired hypothyroidism Expected: 01/12/2025, Expires: 04/13/2025 [facility] Comment on above: Expected: 01/12/2025 , Expires: 04/13/2025 Start: 01-12-2025 End: 04-13-2025 Urinalysis complete panel - Urine URINALYSIS, WITH MICROSCOPIC Lab Routine Essential hypertension Mixed hyperlipidemia Expected: 01/12/2025, Expires: 04/13/2025 [facility] Comment on above: Expected: 01/12/2025 , Expires: 04/13/2025 Start: 01-10-2025 End: 01-10-2025 Patient encounter procedure 01/10/2025 11:40 AM EST Office Visit [facility] [place] [address] [place], [place] [id number] Max Rodriguez MD [address] [place], [place] [address] excessive throat clearing [facility] [place] Comment on above: excessive throat sheri aring Start: 12-21-2024 Hepatitis B surface antibody level LDL Cholesterol [facility] Start: 11-19-2024 DIABETES SCREEN DIABETES SCREEN [facility] Start: 11-08-2024 Advance Directive Discussion Advance Directive Discussion [facility] Start: 10-23-2024 End: 10-23-2024 ambulatory 10/23/2024 8:45 AM EST Treatment [facility] [address] [address] Louisa Christopher, PT [address] [facility] [place] [address] [facility] Start: 10-18-2024 End: 10-18-2024 ambulatory 10/18/2024 8:30 AM EST Treatment [facility] [address] [facility] [address] [place] [address] Maylin Anthony, LITURGICAL MUSIC DIRECTOR [address] [place] [address] [facility] Start: 10-11-2024 End: 10-11-2024 ambulatory 10/11/2024 8:30 AM EST Treatment [facility] [address] [facility] [address] [place] [address] Maylin Anthony, LITURGICAL MUSIC DIRECTOR [address] [place] [address] [facility] Start: 10-09-2024 End: 10-09-2024 ambulatory 10/09/2024 8:30 AM EST Treatment [facility] [address] [facility] [address] [place] [address] Maylin Anthony, LITURGICAL MUSIC DIRECTOR [address] [facility] [place] [id number] [facility] Start: 10-04-2024 End: 10-04-2024 ambulatory 10/04/2024 8:30 AM EST Treatment [facility] [address] [facility] [address] [place] [address] Isha Bishop, LITURGICAL MUSIC DIRECTOR [address] [facility] [place] [address] [facility] Start: 10-02-2024 End: 10-02-2024 ambulatory 10/02/2024 9:15 AM EST Treatment [facility] [address] [facility] [address] [place] [address] Isha Bishop, LITURGICAL MUSIC DIRECTOR [address] [facility] [place] [phone] [facility] Start: 09-27-2024 End: 09-27-2024 ambulatory 09/27/2024 8:30 AM EST Treatment [facility] [address] [facility] [address] [place] [address] Maylin Anthony, LITURGICAL MUSIC DIRECTOR [address] [place] [address] [facility] Start: 09-25-2024 End: 09-25-2024 ambulatory 09/25/2024 8:30 AM EST Treatment [facility] [address] [facility] [address] [place] [phone] Maylin Anthony, LITURGICAL MUSIC DIRECTOR [address] [place] [address] [facility] Start: 09-22-2024 End: 12-22-2024 Thyrotropin [Units/volume] in Serum or Plasma THYROID STIMULATING HORMONE Lab Routine Acquired hypothyroidism Expected: 09/22/2024, Expires: 12/22/2024 [facility] Work Phone: Comment on above: Expected: 09/22/2024 , Expires: 12/22/2024 Start: 09-20-2024 End: 09-20-2024 ambulatory 09/20/2024 10:45 AM EST Treatment [facility] [address] [facility] [address] [place] [phone] Maylin Anthony, LITURGICAL MUSIC DIRECTOR [address] [place] [address] [facility] Start: 09-19-2024 End: 09-19-2024 Patient encounter procedure 09/19/2024 9:40 AM EST Office Visit [facility] [place] [address] [facility] [place] [id number] Max Rodriguez MD [address] [facility] [place] [address] Bilateral knee injections [facility] Comment on above: Bilateral knee injec tions Start: 08-09-2024 Smoking cessation education Tobacco cessation counseling [facility] Start: 08-02-2024 End: 08-02-2024 Patient encounter procedure 08/02/2024 8:40 AM EDT Office Visit [facility] [address] [facility] [place] [address] Max Rodriguez MD [address] [facility] [place] [address] 6 month follow up [facility] Comment on above: 6 month follow up Start: 07-14-2024 End: 10-13-2024 Basic metabolic 2000 panel - Serum or Plasma BASIC METABOLIC PNL Lab Routine Essential hypertension Mixed hyperlipidemia Stage 3a chronic kidney disease (HCC) Expected: 07/14/2024, Expires: 10/13/2024 [facility] Work Phone: Comment on above: Expected: 07/14/2024 , Expires: 10/13/2024 Start: 07-14-2024 End: 10-13-2024 Hemoglobin A1c in Blood HGB A1C Lab Routine Elevated hemoglobin A1c Expected: 07/14/2024, Expires: 10/13/2024 [facility] Work Phone: Comment on above: Expected: 07/14/2024 , Expires: 10/13/2024 Start: 07-14-2024 End: 10-13-2024 Thyrotropin [Units/volume] in Serum or Plasma TSH BLD Lab Routine Acquired hypothyroidism Expected: 07/14/2024, Expires: 10/13/2024 [facility] Work Phone: Comment on above: Expected: 07/14/2024 , Expires: 10/13/2024 Start: 07-09-2024 Covid-19 Vaccine () Covid-19 Vaccine () [facility] Start: 07-09-2024 Influenza vaccination Influenza Vacc ine (#1) [facility] Start: 06-13-2024 End: 09-12-2024 Cobalamin (Vitamin B12) [Mass/volume] in Serum or Plasma VITAMIN B12 Lab Routine Low vitamin B12 level Expected: 06/13/2024, Expires: 09/12/2024 [facility] Work Phone: Comment on above: Expected: 06/13/2024 , Expires: 09/12/2024 Start: 05-17-2024 Smoking cessation education Tobacco cessation counseling [facility] Start: 05-16-2024 End: 05-16-2024 Patient encounter procedure 05/16/2024 10:00 AM EDT Office Visit [facility] [place] [address] [place] [address] Max Rodriguez MD [address] [place] [address] bilateral knee injections [facility] [place] Comment on above: bilateral knee injec tions Start: 04-28-2024 End: 04-28-2024 Patient encounter procedure 04/28/2024 9:40 AM EDT Office Visit [facility] [address] [place] [address] Max Rodriguez MD [address] [place] [address] 3 month follow up [facility] [place] Comment on above: 3 month follow up Start: 04-14-2024 End: 04-14-2024 Patient encounter procedure 04/14/2024 10:20 AM EDT Office Visit [facility] [place] [address] [place] [address] Nicole Zhang APRN.TOY STUFFER [address] [place] [address] 4 week follow up bp [facility] [place] Comment on above: 4 week follow up bp Start: 01-26-2024 End: 04-26-2024 Hepatic function 2000 panel - Serum or Plasma [facility] Work Phone: Comment on above: Expected: 01/26/2024 , Expires: 04/26/2024 Start: 01-26-2024 End: 04-26-2024 PAIN PANEL, UR QUANT [facility] Work Phone: Comment on above: Ordered: 01/26/2024 Expected: 01/26/2024 , Expires: 04/26/2024 Start: 01-26-2024 End: 04-26-2024 TOX SCREEN ROUT UR [facility] Work Phone: Comment on above: Ordered: 01/26/2024 Expected: 01/26/2024 , Expires: 04/26/2024 Start: 01-21-2024 Urine microalbumin profile DTAP,TDAP ,TD (1 - Tdap) [facility] Comment on above: Postponed from 06/04 (Insurance Coverage) Start: 01-13-2024 Hepatitis B surface antibody level LDL CHOLESTEROL [facility] Start: 01-07-2024 End: 03-08-2024 CBC W Auto Differential panel - Blood CBC + DIFF Lab Routine Elevated hemoglobin (HCC) Stage 3a chronic kidney disease (HCC) Acquired hypothyroidism Low vitamin B12 level Expected: 01/07/2024, Expires: 03/08/2024 [facility] Work Phone: Comment on above: Expected: 01/07/2024 , Expires: 03/08/2024 Start: 01-07-2024 End: 03-08-2024 Cobalamin (Vitamin B12) [Mass/volume] in Serum or Plasma VITAMIN B12 BLOOD Lab Routine GERD without esophagitis Low vitamin B12 level Medication management Expected: 01/07/2024, Expires: 03/08/2024 [facility] Work Phone: Comment on above: Expected: 01/07/2024 , Expires: 03/08/2024 Start: 01-07-2024 End: 03-08-2024 Comprehensive metabolic 2000 panel - Serum or Plasma COMP METABOLIC PANEL Lab Routine Essential hypertension Mixed hyperlipidemia Stage 3a chronic kidney disease (HCC) Expected: 01/07/2024, Expires: 03/08/2024 [facility] Work Phone: Comment on above: Expected: 01/07/2024 , Expires: 03/08/2024 Start: 01-07-2024 End: 03-08-2024 Hemoglobin A1c in Blood HGB A1C Lab Routine Elevated hemoglobin A1c Expected: 01/07/2024, Expires: 03/08/2024 [facility] Work Phone: Comment on above: Expected: 01/07/2024 , Expires: 03/08/2024 Start: 01-07-2024 End: 03-08-2024 LIPID PANEL, NONFASTING LIPID PANEL, NONFASTING Lab Routine Essential hypertension Mixed hyperlipidemia Coronary artery 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 Expected: 01/07/2024, Expires: 03/08/2024 [facility] Work Phone: Comment on above: Expected: 01/07/2024 , Expires: 03/08/2024 Start: 01-07-2024 End: 03-08-2024 Magnesium [Mass/volume] in Serum or Plasma MAGNESIUM BLD Lab Routine GERD without esophagitis Medication management Expected: 01/07/2024, Expires: 03/08/2024 [facility] Work Phone: Comment on above: Expected: 01/07/2024 , Expires: 03/08/2024 Start: 01-07-2024 End: 03-08-2024 Thyrotropin [Units/volume] in Serum or Plasma TSH BLD Lab Routine Acquired hypothyroidism Expected: 01/07/2024, Expires: 03/08/2024 [facility] Work Phone: Comment on above: Expected: 01/07/2024 , Expires: 03/08/2024 Start: 01-07-2024 End: 03-08-2024 Urinalysis complete panel - Urine URINALYSIS, WITH MICROSCOPIC Lab Routine Essential hypertension Mixed hyperlipidemia Expected: 01/07/2024, Expires: 03/08/2024 [facility] Work Phone: Comment on above: Expected: 01/07/2024 , Expires: 03/08/2024 Start: 12-31-2023 Covid-19 Vaccine () Covid-19 Vaccine () [facility] Start: 12-24-2023 End: 03-24-2024 Basic metabolic 2000 panel - Serum or Plasma BASIC METABOLIC PNL Lab Routine Hyperkalemia Expected: 12/24/2023, Expires: 03/24/2024 [facility] Work Phone: Comment on above: Expected: 12/24/2023 , Expires: 03/24/2024 Start: 12-23-2023 End: 03-23-2024 Basic metabolic 2000 panel - Serum or Plasma BASIC METABOLIC PNL Lab Routine Hyperkalemia Expected: 12/23/2023, Expires: 03/23/2024 [facility] Work Phone: Comment on above: Expected: 12/23/2023 , Expires: 03/23/2024 Start: 12-17-2023 End: 03-17-2024 Thyrotropin [Units/volume] in Serum or Plasma TSH BLD Lab Routine Acquired hypothyroidism Expected: 12/17/2023, Expires: 03/17/2024 [facility] Work Phone: Comment on above: Expected: 12/17/2023 , Expires: 03/17/2024 Start: 12-13-2023 End: 12-13-2023 [facility] Start: 12-13-2023 [facility] Start: 11-08-2023 Advance Directive Discussion Advance Directive Discussion [facility] Start: 10-29-2023 End: 01-28-2024 Thyrotropin [Units/volume] in Serum or Plasma TSH BLD Lab Routine Acquired hypothyroidism Expected: 10/29/2023, Expires: 01/28/2024 [facility] Work Phone: Comment on above: Expected: 10/29/2023 , Expires: 01/28/2024 Start: 09-06-2023 End: 11-06-2023 Thyrotropin [Units/volume] in Serum or Plasma TSH BLD Lab Routine Acquired hypothyroidism Expected: 09/06/2023, Expires: 11/06/2023 [facility] Work Phone: Comment on above: Expected: 09/06/2023 , Expires: 11/06/2023 Start: 07-09-2023 End: 09-08-2023 Basic metabolic 2000 panel - Serum or Plasma BASIC METABOLIC PNL Lab Routine Essential hypertension Mixed hyperlipidemia Stage 3a chronic kidney disease (HCC) Expected: 07/09/2023, Expires: 09/08/2023 [facility] Work Phone: Comment on above: Expected: 07/09/2023 , Expires: 09/08/2023 Start: 07-09-2023 End: 09-08-2023 Cobalamin (Vitamin B12) [Mass/volume] in Serum or Plasma VITAMIN B12 BLOOD Lab Routine Low vitamin B12 level Expected: 07/09/2023, Expires: 09/08/2023 [facility] Work Phone: Comment on above: Expected: 07/09/2023 , Expires: 09/08/2023 Start: 07-09-2023 End: 09-08-2023 Hemoglobin A1c in Blood HGB A1C Lab Routine Elevated hemoglobin (HCC) Expected: 07/09/2023, Expires: 09/08/2023 [facility] Work Phone: Comment on above: Expected: 07/09/2023 , Expires: 09/08/2023 Start: 07-09-2023 Influenza vaccination [facility] Start: 07-09-2023 End: 09-08-2023 Thyrotropin [Units/volume] in Serum or Plasma TSH BLD Lab Routine Acquired hypothyroidism Expected: 07/09/2023, Expires: 09/08/2023 [facility] Work Phone: Comment on above: Expected: 07/09/2023 , Expires: 09/08/2023 Start: 05-12-2023 End: 05-12-2023 [facility] Start: 05-06-2023 [facility] Start: 03-20-2023 ANNUAL PCP TEAM COLLECTIONS ASSISTANT KATHE DISEASE VISIT ANNUAL PCP TEAM CHRONIC DISEASE VISIT [facility] Start: 02-12-2023 Smoking cessation education Tobacco cessation counseling [facility] Start: 02-05-2023 SHINGRIX VACCINE (2 of 2) MORENO GRIX VACCINE (2 of 2) [facility] Start: 01-01-2023 COVID-19 VACCINE (6 - Moderna series) COVID-19 VACCINE (6 - Moderna series) [facility] Start: 12-25-2022 End: 02-24-2023 CBC W Auto Differential panel - Blood CBC + DIFF Lab Routine Elevated hemoglobin (HCC) Anxiety Recurrent major depressive disorder, in partial remission (HCC) Low vitamin B12 level Expected: 12/25/2022, Expires: 02/24/2023 [facility] Work Phone: Comment on above: Expected: 12/25/2022 , Expires: 02/24/2023 Start: 12-25-2022 End: 02-24-2023 Cobalamin (Vitamin B12) [Mass/volume] in Serum or Plasma VITAMIN B12 BLOOD Lab Routine Low vitamin B12 level Medication management GERD without esophagitis Expected: 12/25/2022, Expires: 02/24/2023 [facility] Work Phone: Comment on above: Expected: 12/25/2022 , Expires: 02/24/2023 Start: 12-25-2022 End: 02-24-2023 Comprehensive metabolic 2000 panel - Serum or Plasma COMP METABOLIC PANEL Lab Routine Essential hypertension Mixed hyperlipidemia Elevated hemoglobin A1c Low serum calcium Expected: 12/25/2022, Expires: 02/24/2023 [facility] Work Phone: Comment on above: Expected: 12/25/2022 , Expires: 02/24/2023 Start: 12-25-2022 End: 02-24-2023 Hemoglobin A1c in Blood HGB A1C Lab Routine Elevated hemoglobin A1c Expected: 12/25/2022, Expires: 02/24/2023 [facility] Work Phone: Comment on above: Expected: 12/25/2022 , Expires: 02/24/2023 Start: 12-25-2022 End: 02-24-2023 Lipid 1996 panel - Serum or Plasma LIPID PANEL BASIC Lab Routine Essential hypertension Mixed hyperlipidemia Coronary artery 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 Expected: 12/25/2022, Expires: 02/24/2023 [facility] Work Phone: Comment on above: Expected: 12/25/2022 , Expires: 02/24/2023 Start: 12-25-2022 End: 02-24-2023 Magnesium [Mass/volume] in Serum or Plasma MAGNESIUM BLD Lab Routine Medication management GERD without esophagitis Expected: 12/25/2022, Expires: 02/24/2023 [facility] Work Phone: Comment on above: Expected: 12/25/2022 , Expires: 02/24/2023 Start: 12-25-2022 End: 02-24-2023 Thyrotropin [Units/volume] in Serum or Plasma TSH BLD Lab Routine Acquired hypothyroidism Expected: 12/25/2022, Expires: 02/24/2023 [facility] Work Phone: Comment on above: Expected: 12/25/2022 , Expires: 02/24/2023 Start: 12-25-2022 End: 02-24-2023 Urinalysis complete panel - Urine URINALYSIS, WITH MICROSCOPIC Lab Routine Essential hypertension Mixed hyperlipidemia Expected: 12/25/2022, Expires: 02/24/2023 [facility] Work Phone: Comment on above: Expected: 12/25/2022 , Expires: 02/24/2023 Start: 12-11-2022 Smoking cessation education Tobacco cessation counseling [facility] Start: 12-03-2022 BP CONTROLLED (<130/80) BP CONTROLLE D (<130/80) [facility] Start: 12-03-2022 SHINGRIX VACCINE (1 of 2) MORENO GRIX VACCINE (1 of 2) [facility] Comment on above: Postponed from 06/04 (Insurance Coverage) Start: 12-03-2022 Urine microalbumin profile DTAP,TDAP ,TD (1 - Tdap) [facility] Comment on above: Postponed from 06/04 (Insurance Coverage) Start: 11-19-2022 Hepatitis B surface antibody level LDL CHOLESTEROL [facility] Start: 11-08-2022 ADVANCE DIRECTIVE DISCUSSION ADVANCE DIRECTIVE DISCUSSION [facility] Start: 10-16-2022 Smoking cessation education Tobacco cessation counseling [facility] Start: 07-09-2022 Influenza vaccination INFLUENZA (#1) [facility] Start: 07-08-2022 End: 09-07-2022 Calcium [Mass/volume] in Serum or Plasma CALCIUM TOTAL BLD Lab Routine Low serum calcium Expected: 07/08/2022, Expires: 09/07/2022 [facility] Work Phone: Comment on above: Expected: 07/08/2022 , Expires: 09/07/2022 Start: 07-08-2022 End: 09-07-2022 Hepatic function 2000 panel - Serum or Plasma HEPATIC FUNCTION PNL Lab Routine Low serum calcium Expected: 07/08/2022, Expires: 09/07/2022 [facility] Work Phone: Comment on above: Expected: 07/08/2022 , Expires: 09/07/2022 Start: 05-22-2022 End: 07-22-2022 Thyrotropin [Units/volume] in Serum or Plasma TSH BLD Lab Routine Acquired hypothyroidism Expected: 05/22/2022, Expires: 07/22/2022 [facility] Work Phone: Comment on above: Expected: 05/22/2022 , Expires: 07/22/2022 Start: 02-12-2022 COVID-19 VACCINE (4 - Booster for Moderna series) COVID-19 VACCINE (4 - Booster for Moderna series) [facility] Start: 12-09-2021 COVID-19 VACCINE (4 - Booster for Moderna series) COVID-19 VACCINE (4 - Booster for Moderna series) [facility] Start: 11-08-2021 ADVANCE DIRECTIVE DISCUSSION ADVANCE DIRECTIVE DISCUSSION [facility] Start: 2001 RSV Vaccine (1 - 1-d ose 60+ series) RSV Vaccine (1 - 1-dose 60+ series) [facility] Start: 1991 SHINGRIX VACCINE (1 of 2) MORENO GRIX VACCINE (1 of 2) [facility] Start: 1960 Urine microalbumin profile DTAP,TDAP ,TD (1 - Tdap) [facility] Start: 1941 Annual wellness visit Medicare Initial Physical (IPPE) [facility] Start: 1941 Creatinine measurement Creatinine Le zofia [facility] Start: 1941 Echocardiography E[facility]ocardiogram [facility] Start: 1941 Lipid panel Lipid Panel [facility] Start: 1941 Potassium measurement Potassium Leve l [facility] Start: 1941 Screening for osteoporosis Bone Dens ity Scan [facility] Bacteria identified in Urine by Culture [facility] End: 06-17-2026 CT Heart and Coronary arteries for calcium scoring WO contrast CT CALCIUM SCORING (CARDIAC) WO IVCON Radiology STAT Encounter for screening for cardiovascular disorders 1 Occurrences starting 05/18/2025 until 06/17/2026 [facility] Work Phone: Comment on above: 1 Occurrences starti ng 05/18/2025 until 06/17/2026 End: 05-23-2025 CT Heart and Coronary arteries for calcium scoring WO contrast CT CALCIUM SCORING (CARDIAC) WO IVCON Radiology STAT Encounter for screening for cardiovascular disorders 1 Occurrences starting 05/23/2025 until 05/23/2025 [facility] Work Phone: Comment on above: 1 Occurrences starti ng 05/23/2025 until 05/23/2025 End: 05-21-2026 ECG COMPLETE ECG COMPLETE ECG Routine Coronary artery 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 SOB (shortness of breath) Chest pain, unspecified type 1 Occurrences starting 05/21/2025 until 05/21/2026 [facility] Work Phone: Comment on above: 1 Occurrences starti ng 05/21/2025 until 05/21/2026 End: 01-10-2026 Echocardiography ECHO Cardiology Routine SOB (shortness of breath) HATFIELD (dyspnea on exertion) Decreased stamina Coronary artery 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 1 Occurrences starting 01/10/2025 until 01/10/2026 [facility] Work Phone: Comment on above: 1 Occurrences starti ng 01/10/2025 until 01/10/2026 Exercise tolerance test [facility] Measurement of respi ratory function [facility] End: 01-19-2025 NM Heart Perfusion W stress and W radionuclide IV NM CARDIAC PERF STRESS/PHARM Radiology STAT Coronary artery 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 Decreased stamina HATFIELD (dyspnea on exertion) Dizziness 1 Occurrences starting 12/21/2023 until 01/19/2025 [facility] Work Phone: Comment on above: 1 Occurrences starti ng 12/21/2023 until 01/19/2025 PAIN PANEL, UR QUANT PAIN PANEL, UR QUANT Lab Routine Arthritis of both knees Osteoarthritis, unspecified osteoarthritis type, unspecified site Medication management 03/20/2022 2:43 PM [facility] Work Phone: PAIN PANEL, UR QUANT PAIN PANEL, UR QUANT Lab Routine Arthritis of both knees Osteoarthritis, unspecified osteoarthritis type, unspecified site Medication management 03/20/2022 2:43 PM T [facility] Work Phone: PAIN PANEL, UR QUANT PAIN PANEL, UR QUANT Lab Routine Osteoarthritis, unspecified osteoarthritis type, unspecified site Medication management 01/20/2023 11:06 AM [facility] Work Phone: PAIN PANEL, UR QUANT PAIN PANEL, UR QUANT Lab Routine Osteoarthritis, unspecified osteoarthritis type, unspecified site Medication management 01/20/2023 11:08 AM [facility] Work Phone: PAIN PANEL, UR QUANT PAIN PANEL, UR QUANT Lab Routine Arthritis of both knees Medication management Ordered: 01/26/2024 [facility] Work Phone: Comment on above: Ordered: 01/26/2024 PAIN PANEL, UR QUANT PAIN PANEL, UR QUANT Lab Routine Arthritis of both knees Medication management 01/26/2024 2:11 PM [facility] Work Phone: Patient Education [facility] Work Phone: Patient referral [facility] Work Phone: End: 04-22-2024 PVR ANK PRESS [facility]VR [facility]K [facility] Vascular Lab Routine Discolored skin 1 Occurrences starting 04/22/2023 until 04/22/2024 [facility] Work Phone: Comment on above: 1 Occurrences starti ng 04/22/2023 until 04/22/2024 SPECIMEN VALIDITY, URINE SPECIME N VALIDITY, URINE Lab Routine Arthritis of both knees Osteoarthritis, unspecified osteoarthritis type, unspecified site Medication management 03/20/2022 2:43 PM EDT [facility] Work Phone: SPECIMEN VALIDITY, URINE SPECIME N VALIDITY, URINE Lab Routine Osteoarthritis, unspecified osteoarthritis type, unspecified site Medication management 01/20/2023 11:06 AM EDT [facility] Work Phone: SPECIMEN VALIDITY, URINE SPECIME N VALIDITY, URINE Lab Routine Arthritis of both knees Medication management Ordered: 01/26/2024 [facility] Work Phone: Comment on above: Ordered: 01/26/2024 TOX SCREEN ROUT UR TOX SCREEN RO UT UR Lab Routine Arthritis of both knees Medication management 01/26/2024 2:11 PM EDT [facility] Work Phone: End: 08-07-2023 Us abdominal real time w/image documentation US ABDOMEN COMPLETE Radiology Routine RLQ abdominal pain 1 Occurrences starting 07/08/2022 until 08/07/2023 [facility] Work Phone: Comment on above: 1 Occurrences starti ng 07/08/2022 until 08/07/2023 End: 12-21-2024 US Carotid arteries - bilateral US CAROTID ARTERIES [facility] V[facility] Lab Routine Dizziness 1 Occurrences starting 12/21/2023 until 12/21/2024 [facility] Work Phone: Comment on above: 1 Occurrences starti ng 12/21/2023 until 12/21/2024 End: 08-07-2023 Us transvaginal US FEMALE PELVIS TRANSVAG Radiology Routine RLQ abdominal pain 1 Occurrences starting 07/08/2022 until 08/07/2023 [facility] Work Phone: Comment on above: 1 Occurrences starti ng 07/08/2022 until 08/07/2023 End: 05-21-2026 US.doppler Extremity arteries - bilateral for physiologic artery study at rest and with exercise PVR LEG W/EXC [facility] Vascular Lab Routine Cyanosis Decreased pulses in feet 1 Occurrences starting 05/21/2025 until 05/21/2026 [facility] Work Phone: Comment on above: 1 Occurrences starti ng 05/21/2025 until 05/21/2026 End: 06-17-2024 XR KNEE GENERAL 4V AP BOTH/PA BOTH/LAT/MERC BILATERAL XR KNEE GENERAL 4V AP BOTH/PA BOTH/LAT/MERC BILATERAL Radiology Routine Pain in both knees, unspecified chronicity 1 Occurrences starting 05/19/2023 until 06/17/2024 [facility] Work Phone: Comment on above: 1 Occurrences starti ng 05/19/2023 until 06/17/2024 End: 02-25-2026 XR Lower extremity - bilateral AP W standing XR LEG FRONTAL HIP TO ANKLE MECHANICAL AXIS Radiology Routine Pain 1 Occurrences starting 01/26/2025 until 02/25/2026 [facility] Comment on above: 1 Occurrences starti ng 01/26/2025 until 02/25/2026 XR Lower extremity - bilateral AP W standing XR LEG FRONTAL HIP TO ANKLE MECHANICAL AXIS Radiology Routine Pain 02/07/2025 10:26 AM EDT [facility] End: 02-25-2026 XR Pelvis and Hip - right AP and Lateral frog XR HIP GENERAL 3V PELV/AP/LAT RIGHT Radiology Routine Pain 1 Occurrences starting 01/26/2025 until 02/25/2026 [facility] Work Phone: Comment on above: 1 Occurrences starti ng 01/26/2025 until 02/25/2026 XR Pelvis and Hip - right AP and Lateral frog XR HIP GENERAL 3V PELV/AP/LAT RIGHT Radiology Routine Pain 02/07/2025 10:26 AM EDT [facility] Work Phone: [facility] Immunizations Immunization Date Immunization Notes Care Provider Dajuan peace 08-02-2024 COVID-19 vaccine, ag e 12+ yr (Valneva-PillPack [facility]) Max Rodriguez MD Work Phone: [facility] 08-02-2024 pneumococcal conjuga te (PCV20) vaccine, 20 valent (PREVNAR 20) Max Rodriguez MD Work Phone: [facility] 08-02-2024 Seasonal trivalent influenza vaccine, adjuvanted, preservative free Max Rodriguez MD Work Phone: [facility] 08-02-2024 influenza virus vacc ine, unspecified formulation Nicole Zhang APRN.TOY STUFFER Work Phone: [facility] 04-28-2024 COVID-19 vaccine, ag e 12+ yr, season (PFIZER-BIONTECH) Max Rodriguez MD Work Phone: [facility] 09-02-2023 respiratory syncytia l virus (RSV) vaccine, bivalent (ABRYSVO) Max Rodriguez MD Work Phone: [facility] 08-30-2023 COVID-19 vaccine, ag e 12+ yr, season (Valneva-BIONTBitMethod) Nicole Zhang APRN.TOY STUFFER Work Phone: [facility] 08-30-2023 respiratory syncytia l virus (RSV) vaccine, unspecified formulation Max Rodriguez MD Work Phone: [facility] Work Phone: 08-24-2023 influenza (aIIV4) vaccine, age 65+ yr, quadrivalent, PF (FLUAD QUAD) Max Rodriguez MD Work Phone: [facility] 08-24-2023 influenza virus vacc ine, unspecified formulation Max Rodriguez MD Work Phone: [facility] 04-22-2023 tetanus toxoid, redu shaun diphtheria toxoid, and acellular pertussis vaccine, adsorbed Nicole Zhang APRN.TOY STUFFER Work Phone: [facility] 02-08-2023 zoster vaccine recombinant Nicole Zhang APRN.TOY STUFFER Work Phone: [facility] 12-11-2022 zoster vaccine recombinant Max Rodriguez MD Work Phone: [facility] 12-09-2022 zoster vaccine recombinant Max Rodriguez MD Work Phone: [facility] 09-08-2022 influenza, high dose seasonal, preservative-free Max Rodriguez MD Work Phone: [facility] Work Phone: 09-08-2022 influenza virus vacc ine, unspecified formulation Max Rodriguez MD Work Phone: [facility] 08-17-2022 influenza (aIIV4) vaccine, age 65+ yr, quadrivalent, PF (FLUAD QUAD) Nicole Zhang APRN.TOY STUFFER Work Phone: [facility] 08-02-2021 influenza, high-dose , quadrivalent vaccine (FLUZONE HIGH DOSE QUADRIVALENT) Max Rodriguez MD Work Phone: [facility] 01-31-2021 COVID-19 vaccine, fu ll dose (MODERNA) Max Rodriguez MD Work Phone: [facility] 01-03-2021 COVID-19 vaccine, fu ll dose (MODERNA) Max Rodriguez MD Work Phone: [facility] 08-03-2020 Seasonal, quadrivale nt, recombinant, injectable influenza vaccine, preservative free Nicole Zhang APRN.TOY STUFFER Work Phone: [facility] 11-19-[address] Max Rodriguez Work Phone: [facility] 11-19-2019 influenza, seasonal, injectable, preservative free Nicole Zhang APRN.TOY STUFFER Work Phone: [facility] 08-16-2019 influenza, high dose seasonal, preservative-free Max Rodriguez MD Work Phone: [facility] 08-06-2018 influenza, high dose seasonal, preservative-free Max Rodriguez MD Work Phone: [facility] 08-18-2017 influenza, high dose seasonal, preservative-free Max Rodriguez MD Work Phone: [facility] 06-21-2017 pneumococcal polysaccharide vaccine, 23 valent Max Rodriguez MD Work Phone: [facility] 10-14-2016 influenza, injectabl e, quadrivalent, contains preservative Max Rodriguez MD Work Phone: [facility] Work Phone: 08-02-2015 influenza, injectabl e, quadrivalent, contains preservative Max Rodriguez MD Work Phone: [facility] Work Phone: 04-02-2015 pneumococcal conjuga te vaccine, 13 cande Rodriguez MD Work Phone: [facility] 08-08-2011 influenza virus vacc ine, unspecified formulation Max Rodriguez MD Work Phone: [facility] Work Phone: 08-17-2009 pneumococcal polysaccharide vaccine, 23 cande Rodriguez MD Work Phone: [facility] Work Phone: 09-16-2007 influenza virus vacc ine, whole virus Nicole Zhang INSPECTOR [employer].TOY STUFFER Work Phone: [facility] Payers Date Payer Category Payer Self-pay [id number] 2023 Medicare (Managed Care) [id number] 2023 Private Health Insurance [facility] [id number] 2021 Medicare HUMANA MEDICARE HUMANA MEDICARE PPO [id number] 2021-Present [phone] [address] [address] [place] [address] PPO [id number] 2021 Medicare [id number] 2012 Medicare [id number] 1941 Unknown [id number] 2.16.840.1.853998.3.579.2.2 78 1941 Unknown [id number] 2.16.840.1.609648.3.579.2.1 243 1941 Unknown [id number] 2.16.840.1.853230.3.579.2.1 243 1941 Unknown [id number] 2.16.840.1.080735.3.579.2.1 243 1941 Unknown [id number] 2.16.840.1.396105.3.579.2.1 243 1941 Unknown [id number] 2.16.840.1.090842.3.579.2.1 243 1941 Unknown [id number] 2.16.840.1.918687.3.579.2.1 243 1941 Unknown [id number] 2.16.840.1.911407.3.579.2.1 243 1941 Unknown [id number] 2.16.840.1.218728.3.579.2.1 243 1941 Unknown [id number] 2.16.840.1.604387.3.579.2.1 243 1941 Unknown [id number] 2.16.840.1.223611.3.579.2.1 243 1941 Unknown [id number] 2.16.840.1.554524.3.579.2.1 243 1941 Unknown [id number] 2.16.840.1.403343.3.579.2.1 243 1941 Unknown [id number] 2.16.840.1.035898.3.579.2.1 243 1941 Unknown [id number] 2.16.840.1.918068.3.579.2.1 243 1941 Unknown [id number] 2.16.840.1.866599.3.579.2.1 243 1941 Unknown [id number] 2.16.840.1.396252.3.579.2.1 243 1941 Unknown [id number] 2.16.840.1.636984.3.579.2.1 243 1941 Unknown [id number] 2.16.840.1.948637.3.579.2.1 347 1941 Unknown [id number] 2.16.840.1.133333.3.579.2.1 347 Private Health Insurance [id number] Unknown [id number] 2.16.840.1.438002.3.579.2.4 62 Unknown [id number] 2.16.840.1.410777.3.579.2.4 62 Unknown [id number] 2.16.840.1.732605.3.579.2.4 62 Unknown [id number] 2.16.840.1.068392.3.579.2.4 62 Unknown [id number] 2.16.840.1.367765.3.579.2.4 62 Social History Date Type Detail Facility Start: 01-26-2022 End: 07-08-2022 Tobacco smoking status NVIS Smokes tobacco daily [facility] Start: 11-08-1970 End: 04-08-2022 History of tobacco use Cigarette Smoker [facility] Start: 01-26-2022 End: 04-22-2023 Cigarettes smoked current (pack per day) - Reported 1 [facility] Start: 01-26-2022 End: 01-22-2025 Tobacco use and exposure Smokeless tobacco non-user [facility] Start: 03-21-2022 End: 05-21-2025 Alcohol intake Current drinker of alcohol (finding) [facility] Start: 02-16-2017 History SDOH Alcohol Comment occasional glass of wine, once a month [facility] Start: 01-26-2022 End: 07-08-2022 Tobacco Comment 3 cigarettes per day [facility] Start: 1940 Sex Assigned At Female [facility] Start: 01-29-2022 End: 03-23-2025 Tobacco smoking status NHIS Unknown if ever smoked [facility] Start: 12-05-2021 Occasional [facility] Start: 12-05-2021 None [facility] Start: 12-05-2021 Alone [facility] Start: 12-05-2021 Cigarettes [facility] Start: 04-20-2022 End: 09-18-2024 Exposure to SARS-CoV-2 (event) Not sure [facility] Work Phone: Start: 07-01-2022 History SDOH Alcohol Std Drinks 98 [facility] Start: 07-01-2022 End: 10-09-2022 History SDOH Housing Unable to Pay 3 [facility] Start: 11-12-2022 End: 01-22-2025 Tobacco smoking status NHIS Ex-smoker [facility] Start: 11-08-1970 End: 04-08-2022 History of tobacco use Current smoker [facility] Start: 10-09-2022 End: 04-22-2023 Social connection and isolation panel [facility] In a typical week, h ow many times do you talk on the telephone with family, friends, or neighbors? Patient refused [facility] Are you now , , , , never or living with a partner? Refused [facility] (I/We) worried mulugeta er (my/our) food would run out before (I/we) got money to buy more. DK or Refused [facility] Start: 01-23-2022 Gender identity Identifies as female gender (finding) [facility] Start: 01-23-2022 Sexual orientation Heterosexual (finding) [facility] Has the [employer], [employer], or [employer] threatened to shut off services in your home in past 12Mo No [facility] Are you now , , , , never or living with a partner? [facility] How often to you hav e a drink containing alcohol? Never [facility] Do you feel stress - tense, restless, nervous, or anxious, or unable to sleep at night because your mind is troubled all the time - these days [OSQ] Not at all [facility] (I/We) worried wheth er (my/our) food would run out before (I/we) got money to buy more. Never true [facility] Start: 1940 Sex assigned at Not on file [facility] Work Phone: Start: 01-22-2025 Tobacco Comment Started at age 31 [facility] Start: 01-26-2025 End: 02-08-2025 Sex Female (finding) [facility] Start: 03-23-2025 Alcohol intake Alcohol Use Details [facility] Medical Equipment Procedure Code Equipment Code Equipment Origin al Text Equipment Identifier Dates Opz-Ad-C-Kind Implant - [id number] Start: 12-30-2018 Comment on above: Description: Trident II Tritanium Solidback Acetabular Shell size 56mm/F Liner 36mm 0d F X3 7.9mm Acetabular Hip - [id number] Start: 12-30-2018 Stem Accolade Ii 5 127d Femoral - [id number] Start: 12-30-2018 Head V40 36mm +2.5mm Offset Taper Biolox Delta Femoral Hip - [id number] Start: 12-30-2018 Goals Date Patient Goal Desired Activity /State Personal health goal Comment on above: Formatting of this n ote might be different from the original. Continue to stay healthy Comment on above: Formatting of this n ote might be different from the original. Continue to stay healthy Functional Status Date Assessment Result Facility 05-04-2015 Are you deaf, or do you have serious difficulty hearing No 05/04/2015 11:05 AM Katherin Campbell MA No [facility] 05-04-2015 Are you blind, or do you have serious difficulty seeing, even when wearing glasses No 05/04/2015 11:05 AM Katherin Campbell MA No [facility] 05-04-2015 Do you have serious difficulty walking or climbing stairs No 05/04/2015 11:05 AM Katherin Campbell MA No [facility] 05-04-2015 Do you have difficul ty dressing or bathing No 05/04/2015 11:05 AM EDT Katherin Schmidt MA No [facility] 05-04-2015 Because of a physica l, mental, or emotional condition, do you have difficulty doing errands alone such as visiting a physician's office or shopping No 05/04/2015 11:05 AM EDT Katherin Schmidt MA No [facility] Mental Status Date Assessment Result Facility 12-13-2023 Cognitive function Voice/Name [facility] Work Phone: 05-12-2023 Cognitive function Level Of Cons ciousness Awake;Alert;Appropriate [facility] Work Phone: 05-06-2023 Cognitive function Voice/Name [facility] Work Phone: 05-04-2015 Because of a physica l, mental, or emotional condition, do you have serious difficulty concentrating, remembering, or making decisions No 05/04/2015 11:05 AM EDT Katherin Schmidt MA No [facility] Clinical Notes 01-19-2010 to 05-24-2025 Telephone Encounter - Orly Richardson LPN - 05/24/2025 10:25 AM EDTTelephone Encounter - Orly Richardson LPN - 05/24/2025 10:25 AM EDTPatient InstructionsPatient Instructions Note Date & Type Note Facility 05-24-2025 Telephone encounter Note Pt's daughter Vidya notified of same, verbalizes understanding. Orly Richardson LPN [facility] 05-24-2025 Miscellaneous Notes Pt's daughter Vidya notified of berenice, verbalizes understanding. Orly Richardson LPN Please let patient know her CT cardiac score is very elevated and she should follow up with cardiology as scheduled. documented in this encounter [facility] 05-24-2025 Telephone encounter Note Please let patient know her CT cardiac score is very elevated and she should follow up with cardiology as scheduled. [facility] 05-21-2025 Instructions Max Rodriguez MD - 05/21/2025 9:37 AM EDT Please get labs on or after 08/08/2025 documented in this encounter [facility] 05-21-2025 Note HNO ID: [id number] Author: MAX RODRIGUEZ MD Service: ? Author Type: Physician Type: Procedures Filed: 05/21/2025 09:47 Note Text: UNIVERSAL PROTOCOL / SAFETY CHECKLIST Procedure to be Performed: joint injection Sign In: A Moment of CARE was completed. Appropriate PPE (Personal Protective Equipment) worn by all providers involved with the procedure. Special equipment not required. Patient/Surrogate Stated/Verified: Patient name, Date of , Relevant allergies, and The intended procedure Time Out: Relevant labs, photos, and/or imaging studies are not applicable. Intended patient and procedure match the source document(s) (e.g. consent, HANDP, associated studies [imaging, pathology]) match the intended patient and procedure. Consent obtained and matches the intended procedure. Yes. Correct side/site has been marked and visible. Medications required for this procedure are verified. Fire risk assessed and is not applicable. Implants: are not applicable. Sign Out: Specimens not collected. All instruments, equipment, possible retained foreign bodies are accounted for. Yes. The post-procedure plan of care has been communicated to the patient or surrogate. Lateral side of the right knee was cleansed with betadine and alcohol. A 22 gauge 1 1/2 needle was inserted into the joint space. Prior to injection aspiration was attempted with no blood return. The medication was then injected without difficulty. Patient tolerated well. Medication: 60 mg kenalog and 1.5 ml 2% lido without Epi [facility] 05-21-2025 Procedure note Procedure(s): LARGE JOINT INJECTION/ARTHROCENTESIS Pre-Procedure Diagnose(s): Arthritis of both knees; Acute pain of right knee Post-Procedure Diagnose(s): Arthritis of both knees; Acute pain of right knee UNIVERSAL PROTOCOL / SAFETY CHECKLIST Procedure to be Performed: joint injection Sign In: A Moment of CARE was completed. Appropriate PPE (Personal Protective Equipment) worn by all providers involved with the procedure. Special equipment not required. Patient/Surrogate Stated/Verified: Patient name, Date of , Relevant allergies, and The intended procedure Time Out: Relevant labs, photos, and/or imaging studies are not applicable. Intended patient and procedure match the source document(s) (e.g. consent, H&P, associated studies [imaging, pathology]) match the intended patient and procedure. Consent obtained and matches the intended procedure. Yes. Correct side/site has been marked and visible. Medications required for this procedure are verified. Fire risk assessed and is not applicable. Implants: are not applicable. Sign Out: Specimens not collected. All instruments, equipment, possible retained foreign bodies are accounted for. Yes. The post-procedure plan of care has been communicated to the patient or surrogate. Lateral side of the right knee was cleansed with betadine and alcohol. A 22 gauge 1 1/2 needle was inserted into the joint space. Prior to injection aspiration was attempted with no blood return. The medication was then injected without difficulty. Patient tolerated well. Medication: 60 mg kenalog and 1.5 ml 2% lido without Epi [facility] 05-21-2025 Procedure note Procedure(s): LARGE JOINT INJECTION/ARTHROCENTESIS Pre-Procedure Diagnose(s): Arthritis of both knees; Acute pain of right knee Post-Procedure Diagnose(s): Arthritis of both knees; Acute pain of right knee UNIVERSAL PROTOCOL / SAFETY CHECKLIST Procedure to be Performed: joint injection Sign In: A Moment of CARE was completed. Appropriate PPE (Personal Protective Equipment) worn by all providers involved with the procedure. Special equipment not required. Patient/Surrogate Stated/Verified: Patient name, Date of , Relevant allergies, and The intended procedure Time Out: Relevant labs, photos, and/or imaging studies are not applicable. Intended patient and procedure match the source document(s) (e.g. consent, H&P, associated studies [imaging, pathology]) match the intended patient and procedure. Consent obtained and matches the intended procedure. Yes. Correct side/site has been marked and visible. Medications required for this procedure are verified. Fire risk assessed and is not applicable. Implants: are not applicable. Sign Out: Specimens not collected. All instruments, equipment, possible retained foreign bodies are accounted for. Yes. The post-procedure plan of care has been communicated to the patient or surrogate. Lateral side of the right knee was cleansed with betadine and alcohol. A 22 gauge 1 1/2 needle was inserted into the joint space. Prior to injection aspiration was attempted with no blood return. The medication was then injected without difficulty. Patient tolerated well. Medication: 60 mg kenalog and 1.5 ml 2% lido without Epi documented in this encounter [facility] 05-21-2025 Note HNO ID: [id number] Author: MAX RODRIGUEZ MD Service: ? Author Type: Physician Type: Progress Notes Filed: 05/21/2025 09:47 Note Text: Chief Complaint Patient presents with: Bilateral Knee Pain HPI Anne Marie Garza is a 84 year old female who presents here today for bilateral knee pain. Pt here today wanting to have b/l knee injections. Pt prefers to not have surgery and is managing with steroid injections every 4 months. Last injections completed 01/19/25. Pt reports the right knee is the only one hurting her today, no issues with left knee. Patient has noticed increased blue discoloration in her feet. She also feels her feet are cold at times. Past medical history, appointments, medications, allergies reviewed. Previous Medical History PAST MEDICAL HISTORY Diagnosis Date Acquired hypothyroidism 08/02/2015 Advance directive discussed with patient 01/20/2023 Discussed 01/2023: Up to date Anxiety 01/19/2010 -continue home citalopram Bilateral carotid artery stenosis 12/31/2023 US 12/2023: Rt 20-40% Lt 60-80% BPV (benign positional vertigo) 08/02/2015 Chronic pain of both knees 05/24/2020 Seeing Ortho: Dr. Whiteside Coronary artery 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 08/02/2015 Not seeing cardiology Degenerative disc disease, lumbar 05/26/2018 Elevated hemoglobin 04/17/2020 to be rechecked 05/17/2020 Elevated hemoglobin A1c 12/30/2017 Epidermal inclusion cyst 09/09/2019 anterior chest wall excised 08/2019 Essential hypertension 01/26/2017 Graves disease Heart attack (HCC) [facility] stent in heart History of COVID-19 07/08/202205/2022 History of non-ST elevation myocardial infarction (NSTEMI) 01/19/201001/2010 Intradermal nevus 12/30/2014 right inferrior medial breast Keratosis, inflamed seborrheic 12/30/2014 right upper back Left carpal tunnel syndrome 01/04/[address] 12/03/2021 Daughter Truong is DPOA Low vitamin B12 level 04/06/2014 Lumbar radicular pain 05/26/2018 Added automatically from request for surgery [id number] Lump or mass in breast 01/20/2023 Patient [...] Recurrent major depressive disorder, in partial remission 04/14/2016 Severe obstructive sleep apnea AHI 32.5 [...] 2D ECHO (EXEP) 12/21/2019 EF=60%, 1+ TI, AR, AI 2D ECHO (EXEP) 02/17/2021 EF= 60%, [...] FAMILY HISTORY Problem Relation Age of Onset Coronary Artery Disease Mother blood clots- at 65 Cancer Father prostate Hypertension Father Asthma Father Alzheimer's Disease Brother at 78 Breast Cancer Daughter Breast Cancer Daughter Blood Clots Daughter while preganant- PE Patient Allergies ALLERGIES Allergen Reactions Iodine Anaphylaxis Hctz [Thiazides] Other: See Comments Dehydrated, nauseated and week Mary Inhibitors Cough Chantix [Vareniclin* Other: See Comments Bad dreams Lipitor [Atorvastat* Other: See Comments Muscle pains Mucinex [Guaifenesi* Mental Status Change dizziness and confusion Pravachol [Pravasta* Other: See Comments Muscle aches Zanaflex [Tizanidin* Ot (more content not included)... [facility] 05-21-2025 History of Presen t illness Narrative Chief Complaint Patient presents with: Bilateral Knee Pain HPI Anne Marie Garza is a 84 year old female who presents here today for bilateral knee pain. Pt here today wanting to have b/l knee injections. Pt prefers to not have surgery and is managing with steroid injections every 4 months. Last injections completed 01/19/25. Pt reports the right knee is the only one hurting her today, no issues with left knee. Patient has noticed increased blue discoloration in her feet. She also feels her feet are cold at times. Past medical history, appointments, medications, allergies reviewed. Previous Medical History PAST MEDICAL HISTORY Diagnosis Date Acquired hypothyroidism 08/02/2015 Advance directive discussed with patient 01/20/2023 Discussed 01/2023: Up to date Anxiety 01/19/2010 -continue home citalopram Bilateral carotid artery stenosis 12/31/2023 US 12/2023: Rt 20-40% Lt 60-80% BPV (benign positional vertigo) 08/02/2015 Chronic pain of both knees 05/24/2020 Seeing Ortho: Dr. Whiteside Coronary artery 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 08/02/2015 Not seeing cardiology Degenerative disc disease, lumbar 05/26/2018 Elevated hemoglobin 04/17/2020 to be rechecked 05/17/2020 Elevated hemoglobin A1c 12/30/2017 Epidermal inclusion cyst 09/09/2019 anterior chest wall excised 08/2019 Essential hypertension 01/26/2017 Graves disease Heart attack (HCC) [facility] stent in heart History of COVID-19 07/08/202205/2022 History of non-ST elevation myocardial infarction (NSTEMI) 01/19/201001/2010 Intradermal nevus 12/30/2014 right inferrior medial breast Keratosis, inflamed seborrheic 12/30/2014 right upper back Left carpal tunnel syndrome 01/04/[address] 12/03/2021 Daughter Truong is DPOA Low vitamin B12 level 04/06/2014 Lumbar radicular pain 05/26/2018 Added automatically from request for surgery [id number] Lump or mass in breast 01/20/2023 Patient [...] Recurrent major depressive disorder, in partial remission 04/14/2016 Severe obstructive sleep apnea AHI 32.5 [...] 2D ECHO (EXEP) 12/21/2019 EF=60%, 1+ TI, AR, AI 2D ECHO (EXEP) 02/17/2021 EF= 60%, mod sanots dysf, ARTHRP ACETBLR/PROX FEM PROSTC AGRFT/ALGRFT Right [...] FAMILY HISTORY Problem Relation Age of Onset Coronary Artery Disease Mother blood clots- at 65 Cancer Father prostate Hypertension Father Asthma Father Alzheimer's Disease Brother at 78 Breast Cancer Daughter Breast Cancer Daughter Blood Clots Daughter while preganant- PE Patient Allergies ALLERGIES Allergen Reactions Iodine Anaphylaxis Hctz [Thiazides] Other: See Comments Dehydrated, nauseated and week Mary Inhibitors Cough Chantix [Vareniclin* Other: See Comments Bad dreams Lipitor [Atorvastat* Other: See Comments Muscle pains Mucinex [Guaifenesi* Mental Status Change dizziness and confusion Pravachol [Pravasta* Other: See Comments Muscle aches Zanaflex [Tizanidin* Other: See Comments Caused pt to feel jittery all over Current Medications Current Outpatient Medications on File Prior to Visit Medication Sig celecoxib (CELEBREX) 200 mg capsule Take 1 capsule by mouth two times a day. traMADol (ULTRAM) 50 mg tablet Take 1 tablet by mouth every 8 hours as needed for pain for up to 90 days. amLODIPine (NORVASC) 10 mg tablet Take 1 tablet by mouth once daily. Increased by [facility] 03/2025 for SOB metoprolol succinate ER (TOPROL XL) 50 mg 24 hr tablet Take 1 tablet by mouth once daily. Decreased by [facility] 03/2025 due to SOB DULoxetine (CYMBALTA) 30 mg capsule Take 1 capsule by mouth once daily. In place of the Citaloram levothyroxine (LEVOXYL) 137 mcg tablet Take one tab by mouth once a day Wed-Wed, 1/2 on Wed and none on Wednesday. Take on empty stomach. For Thyroid. omeprazole (PRILOSEC) 40 mg capsule Take 1 capsule by mouth two times a day. rosuvastatin (CRESTOR) 5 mg tablet Take 1 tablet by mouth once daily. valsartan (DIOVAN) 320 mg tablet Take 1 tablet by mouth once daily. albuterol HFA (PROVENTIL HFA, VENTOLIN HFA) 90 mcg/actuation inhaler Inhale 2 Puffs as instructed every 4 hours as needed. fluticasone-salmeterol (WIXELA INHUB) 250-50 mcg/dose inhaler Inhale 1 Puff as instructed two times a day. nitroglycerin sublingual (NITROQUICK) 0.4 mg SL tablet Dissolve 1 tablet under the tongue every 5 minutes as needed. ondansetron orally disintegrating (ZOFRAN ODT) 4 mg disintegrating tablet Take 1 tablet by mouth every 6 hours as needed for nausea/vomiting. aspirin, enteric coated (ASPIRIN, ENTERIC COATED) 81 mg EC tablet Take 81 mg by mouth once daily. No current facility-administered medications on file prior to visit. Social History Social History Tobacco Use Smoking status: Former Current packs/day: 1.00 Average packs/day: 1 pack/day for 54.5 years (54.5 ttl pk-yrs) Types: Cigarettes Start date: 1970 Smokeless tobacco: Never Tobacco comments: Started at age 31 Vaping Use Vaping status: current everyday user Substances: Nicotine Devices: Pre-filled or refillable cartridge Substance Use Topics Alcohol use: Yes Comment: occasional glass of wine, once a month Drug use: No Review of Symptoms REVIEW OF SYSTEMS A above SEE HPI EXAM: BP 138/60 (BP Site: Right Arm, BP Position: Sitting, BP Cuff Size: Large Adult) Pulse 68 Resp 16 Wt 80.6 kg (177 lb 12.8 oz) BMI 30.71 kg/m General Appearance: Well appearing, alert, in no acute distress, well-hydrated, well nourished. and Obese. Musculoskeletal: some arthritic changes. Legs and feet do not feel cold cap refill was normal.. Was not able to palpate the pulse in her posterior tibial arteries. Health Maintenance List Covid-19 Vaccine( season) due on 01/30/2025 Influenza Vaccine(1) due on 07/09/2025 LDL Cholesterol due on 01/19/2026 Diabetes Screening due on 01/20/2028 DTaP,Tdap,Td Vaccine(2 - Td or Tdap) due on 04/22/2033 Bone Density Screening Completed Advance Directive Discussion Completed RSV Vaccine Completed Medicare Advantage Annual Wellness Visit Completed Shingrix Vaccine Completed Pneumococcal Vaccine: 50+ Completed Colorectal Cancer Screening Discontinued Data reviewed Assessment and Plan ASSESSMENT/PLAN: 1. Arthritis of both knees - ICD9: 716.96, ICD10: M17.0 (primary diagnosis) - right knee injection discussed and patient in agreement. - consent obtained - see procedure note 2. Acute pain of right knee - ICD9: 719.46, ICD10: M25.561 - a per #1 3. Cyanosis - ICD9: 782.5, ICD10: R23.0 Check - PVR LEG W/EXC [facility] 4. Decreased pulses in feet - ICD9: 785.9, ICD10: R09.89 Check - PVR LEG W/EXC [facility] Max Rodriguez MD F/u next routine Max Rodriguez MD Recording using ambient [employer] software for draft documentation of the visit was discussed with the patient/authorized insurance service representative; all questions welcomed and answered. Patient/authorized insurance service representative agreed to proceed documented in this encounter [facility] 05-18-2025 Instructions Nicole Zhang APRN.TOY STUFFER - 05/18/2025 12:30 PM EDT Screening schedule The following prevention plan is recommended: Advance Directive Discussion due on 11/08/2024 Medicare Advantage Annual Wellness Visit due on 11/08/2024 Covid-19 Vaccine( season) due on 01/30/2025 WHAT YOU CAN DO TO PREVENT FALLS Many falls can be prevented. By making some changes, you can lower your chances of falling. Four things YOU can do to prevent falls for you* and your caregiver 1. Begin a regular exercise program Exercise is one of the most important ways to lower your chances of falling. It makes you stronger and helps you feel better. Exercises that improve balance and coordination (like Peterson Chi) are the most helpful. Lack of exercise leads to weakness and increases your chances of falling. Ask your doctor or health care provider about the best type of exercise program for you. 2. Have your health care provider review your medicines Have your doctor or pharmacist review all the medicines you take, even [id number] medicines. As you get older, the way medicines work in your body can change. Some medicines, or combinations of medicines, can make you sleepy or dizzy and can cause you to fall. 3. Have your vision checked Have your eyes checked by an eye doctor at least once a year. You may be wearing the wrong glasses or have a condition like glaucoma or cataracts that limits your vision. Poor vision can increase your chances of falling. 4. Make your home safer About half of all falls happen at home. To make your home safer: Remove things you can trip over (like papers, books, clothes, and shoes) from stairs and places where you walk. Remove small throw rugs or use double-sided tape to keep the rugs from slipping. Keep items you use often in cabinets you can reach easily without using a step stool. Have grab bars put in next to your toilet and in the tub or shower. Use non-slip mats in the bathtub and on shower floors. Improve the lighting in your home. As you get older, you need brighter lights to see well. Hang light-weight curtains or shades to reduce glare. Have handrails and lights put in on all staircases. Wear shoes both inside and outside the house. Avoid going barefoot or wearing slippers. For more information, contact: Centers for Disease Control and Prevention www.cdc.gov/injury * This information may not apply if you have certain medical conditions. documented in this encounter [facility] 05-18-2025 Note HNO ID: [id number] Author: NICOLE ZHANG APRN.CNP Service: ? Author Type: Nurse Practitioner Type: Progress Notes Filed: 05/18/2025 13:46 Note Text: Anne Marie Garza is a 84 year old female here for a Medicare wellness visit. Medicare Health Risk Assessment General Health Good Exercise: Minutes/Day 0 min Exercise: Days/Week 0 days Alcohol: Daily Use Never Alcohol: Drinks/Day Patient does not drink Alcohol: 6 or more drinks Never Feel off balance Yes Concerns: Teeth/Dentures No Concerns: Sexual function No Troubled by feelings None of the above Frequency: Eating healthy diet Several days ADLs requiring help Grocery shopping; Cooking; Housework; Handling finances Safety precautions in home/vehicle Yes Smoke, vape, chews tobacco Yes, but I'm not ready to quit Difficulty hearing Yes Difficulty seeing Yes Current Providers Specialists: I have reviewed specialist-related care of the patient in the medical record. Current care team: Patient Care Team: Max Rodriguez MD as PCP - General (Family Medicine) Nicole Zhang APRN.CNP as Level Glass Vial Filler (Family Medicine) Dora Whitman PA-C as Level Glass Vial Filler (Family Medicine) Medical/Family history review Reviewed and updated problem list, medical/surgical/family/social history, medications, and allergies. Opioid use review Opioid Medications (last 90 days) 04/04/2025 00:00 Opioid Medications tramadol HCl 50 mg q 8 H PRN PO -Discontinued tramadol HCl 50 mg q 8 H PRN PO Details Outpatient prescription Prescribed tramadol HCl (last 90 days) Does patient have risk factors for opioid abuse? No Pain overview Current pain concerns and treatment plan reviewed. Patient stable on current treatment plan. Anxiety/Depression screening PHQ-9 Score: 4 (Minimal Depression) ANA-7 Score: 0 . Recommendation: no further intervention at this time Cognitive screening Cognitive screening reviewed and No further action needed (score 3-5). Functional Observation Was the patient's Timed Up AND Go test unsteady or >= 12 seconds? No Advance Care Planning Surrogate decision maker and/or advance care plan documented Measurements BP 122/68 Pulse 67 Wt 80 kg (176 lb 5.9 oz) BMI 30.46 kg/m? Vision Screening: Follows with optometry/ophthalmology Assessment/Plan Medicare annual wellness visit, subsequent (Z00.00) - Counseled on healthy diet and regular exercise - Fall avoidance information provided - Personalized prevention plan provided Chief Complaint Patient presents with: Medicare Wellness Exam HPI Anne Marie Garza is a 84 year old female who presents here today for Above Complaints. Patient presents for annual wellness exam. Patient reports she continues to be Short of Breath. Completed cardiac and pulm workup with no evidence of acute processes. Medication changes per Cardiology include metoprolol decrease and increase amlodipine which has not improved patients symptoms. Unable to leave house without difficulty breathing and quickly becomes short of breath. Past medical history, appointments, medications, allergies reviewed. Previous Medical History PAST MEDICAL HISTORY Diagnosis Date Acquired hypothyroidism 08/02/2015 Advance directive discussed with patient 01/20/2023 Discussed 01/2023: Up to date Anxiety 01/19/2010 -continue home citalopram Bilateral carotid artery stenosis 12/31/2023 US 12/2023: Rt 20-40% Lt 60-80% BPV (benign positional vertigo) 08/02/2015 Chronic pain of both knees 05/24/2020 Seeing Ortho: Dr. Whiteside Coronary artery 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 08/02/2015 Not seeing cardiology Degenerative disc disease, lumbar 05/26/2018 Elevated hemoglobin 04/17/2020 to be rechecked 05/17/2020 Elevated hemoglobin A1c 12/30/2017 Epidermal inclusion cyst 09/09/2019 anterior chest wall excised 08/2019 Essential hypertension 01/26/2017 Graves disease Heart attack (HCC) [facility] stent in heart History of COVID-19 07/08/202205/2022 History of non-ST elevation myocardial infarction (NSTEMI) 01/19/201001/2010 Intradermal nevus 12/30/2014 right inferrior medial breast Keratosis, inflamed seborrheic 12/30/2014 right upper back Left carpal tunnel syndrome 01/04/[address] 12/03/2021 Daughter Truong is DPOA Low vitamin B12 level 04/06/2014 Lumbar radicular pain 05/26/2018 Added automatically from request for surgery [id number] Lump or mass in breast 01/20/2023 Patient [...] cryo 10/14/2016 Obesity, Class I, BMI 30-34.9 (more content not included)... [facility] 05-18-2025 History of Presen t illness Narrative Images from the original note were not included. Anne Marie Garza is a 84 year old female here for a Medicare wellness visit. Medicare Health Risk Assessment General Health Good Exercise: Minutes/Day 0 min Exercise: Days/Week 0 days Alcohol: Daily Use Never Alcohol: Drinks/Day Patient does not drink Alcohol: 6 or more drinks Never Feel off balance Yes Concerns: Teeth/Dentures No Concerns: Sexual function No Troubled by feelings None of the above Frequency: Eating healthy diet Several days ADLs requiring help Grocery shopping; Cooking; Housework; Handling finances Safety precautions in home/vehicle Yes Smoke, vape, chews tobacco Yes, but I'm not ready to quit Difficulty hearing Yes Difficulty seeing Yes Current Providers Specialists: I have reviewed specialist-related care of the patient in the medical record. Current care team: Patient Care Team: Max Rodriguez MD as PCP - General (Family Medicine) Nicole Zhang APRN.FELIPA as Level Glass Vial Filler (Family Medicine) Dora Whitman PA-C as Level Glass Vial Filler (Family Medicine) Medical/Family history review Reviewed and updated problem list, medical/surgical/family/social history, medications, and allergies. Opioid use review Opioid Medications (last 90 days) 04/04/2025 00:00 Opioid Medications tramadol HCl 50 mg q 8 H PRN PO -Discontinued tramadol HCl 50 mg q 8 H PRN PO Details Outpatient prescription Prescribed tramadol HCl (last 90 days) Does patient have risk factors for opioid abuse? No Pain overview Current pain concerns and treatment plan reviewed. Patient stable on current treatment plan. Anxiety/Depression screening PHQ-9 Score: 4 (Minimal Depression) ANA-7 Score: 0 . Recommendation: no further intervention at this time Cognitive screening Cognitive screening reviewed and No further action needed (score 3-5). Functional Observation Was the patient's Timed Up & Go test unsteady or >= 12 seconds? No Advance Care Planning Surrogate decision maker and/or advance care plan documented Measurements BP 122/68 Pulse 67 Wt 80 kg (176 lb 5.9 oz) BMI 30.46 kg/m Vision Screening: Follows with optometry/ophthalmology Assessment/Plan Medicare annual wellness visit, subsequent (Z00.00) - Counseled on healthy diet and regular exercise - Fall avoidance information provided - Personalized prevention plan provided Chief Complaint Patient presents with: Medicare Wellness Exam HPI Anne Marie Garza is a 84 year old female who presents here today for Above Complaints. Patient presents for annual wellness exam. Patient reports she continues to be Short of Breath. Completed cardiac and pulm workup with no evidence of acute processes. Medication changes per Cardiology include metoprolol decrease and increase amlodipine which has not improved patients symptoms. Unable to leave house without difficulty breathing and quickly becomes short of breath. Past medical history, appointments, medications, allergies reviewed. Previous Medical History PAST MEDICAL HISTORY Diagnosis Date Acquired hypothyroidism 08/02/2015 Advance directive discussed with patient 01/20/2023 Discussed 01/2023: Up to date Anxiety 01/19/2010 -continue home citalopram Bilateral carotid artery stenosis 12/31/2023 US 12/2023: Rt 20-40% Lt 60-80% BPV (benign positional vertigo) 08/02/2015 Chronic pain of both knees 05/24/2020 Seeing Ortho: Dr. Whiteside Coronary artery 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 08/02/2015 Not seeing cardiology Degenerative disc disease, lumbar 05/26/2018 Elevated hemoglobin 04/17/2020 to be rechecked 05/17/2020 Elevated hemoglobin A1c 12/30/2017 Epidermal inclusion cyst 09/09/2019 anterior chest wall excised 08/2019 Essential hypertension 01/26/2017 Graves disease Heart attack (HCC) [facility] stent in heart History of COVID-19 07/08/202205/2022 History of non-ST elevation myocardial infarction (NSTEMI) 01/19/201001/2010 Intradermal nevus 12/30/2014 right inferrior medial breast Keratosis, inflamed seborrheic 12/30/2014 right upper back Left carpal tunnel syndrome 01/04/[address] 12/03/2021 Daughter Truong is DPOA Low vitamin B12 level 04/06/2014 Lumbar radicular pain 05/26/2018 Added automatically from request for surgery [id number] Lump or mass in breast 01/20/2023 Patient [...] Recurrent major depressive disorder, in partial remission 04/14/2016 Severe obstructive sleep apnea AHI 32.5 [...] 2D ECHO (EXEP) 12/21/2019 EF=60%, 1+ TI, AR, AI 2D ECHO (EXEP) 02/17/2021 EF= 60%, [...] FAMILY HISTORY Problem Relation Age of Onset Coronary Artery Disease Mother blood clots- at 65 Cancer Father prostate Hypertension Father Asthma Father Alzheimer's Disease Brother at 78 Breast Cancer Daughter Breast Cancer Daughter Blood Clots Daughter while preganant- PE Patient Allergies ALLERGIES Allergen Reactions Iodine Anaphylaxis Hctz [Thiazides] Other: See Comments Dehydrated, nauseated and week Mary Inhibitors Cough Chantix [Vareniclin* Other: See Comments [...] for pain for up to 90 days. amLODIPine (NORVASC) 10 mg tablet Take 1 tablet by mouth once daily. Increased by [facility] 03/2025 for SOB metoprolol succinate ER (TOPROL XL) 50 mg 24 hr tablet Take 1 tablet by mouth once daily. Decreased by [facility] 03/2025 due to SOB DULoxetine (CYMBALTA) 30 mg capsule Take 1 capsule by mouth once daily. In place of the Citaloram levothyroxine (LEVOXYL) 137 mcg tablet Take one tab by mouth once a day Wed-Wed, 1/2 on Wed and none on Wednesday. Take on empty stomach. For Thyroid. omeprazole (PRILOSEC) 40 mg capsule Take 1 capsule by mouth two times a day. rosuvastatin (CRESTOR) 5 mg tablet Take 1 tablet by mouth once daily. valsartan (DIOVAN) 320 mg tablet Take 1 tablet by mouth once daily. Cyanocobalamin 1,000 mcg TbER Take 1 tablet by mouth once daily. celecoxib (CELEBREX) 200 mg capsule Take 1 capsule by mouth two times a day. albuterol HFA (PROVENTIL HFA, VENTOLIN HFA) 90 mcg/actuation inhaler Inhale 2 Puffs as instructed every 4 hours as needed. fluticasone-salmeterol (WIXELA INHUB) 250-50 mcg/dose inhaler Inhale 1 Puff as instructed two times a day. nitroglycerin sublingual (NITROQUICK) 0.4 mg SL tablet Dissolve 1 tablet under the tongue every 5 minutes as needed. ondansetron orally disintegrating (ZOFRAN ODT) 4 mg disintegrating tablet Take 1 tablet by mouth every 6 hours as needed for nausea/vomiting. aspirin, enteric coated (ASPIRIN, ENTERIC COATED) 81 mg EC tablet Take 81 mg by mouth once daily. No current facility-administered medications on file prior to visit. Social History Social History Tobacco Use Smoking status: Former Current packs/day: 1.00 Average packs/day: 1 pack/day for 54.5 years (54.5 ttl pk-yrs) Types: Cigarettes Start date: 1970 Smokeless tobacco: Never Tobacco comments: Started at age 31 Vaping Use Vaping status: current everyday user Substances: Nicotine Devices: Pre-filled or refillable cartridge Substance Use Topics Alcohol use: Yes Comment: occasional glass of wine, once a month Drug use: No Review of Symptoms REVIEW OF SYSTEMS SEE HPI EXAM: BP 122/68 Pulse 67 Wt 80 kg (176 lb 5.9 oz) BMI 30.46 kg/m General Appearance: Well appearing, alert, in no acute distress, well-hydrated, well nourished. Skin: Skin color, texture, turgor normal, no suspicious rashes or lesions. Lungs: Lungs clear to auscultation. No wheezing, rhonchi, rales.. Heart: RRR without murmur, gallop, or rubs. No ectopy. Abdomen: Normal abdominal exam, Abdomen soft, non-tender. Bowel sounds normal. No masses, organomegaly Musculoskeletal: No joint swelling, deformity, or tenderness Peripheral Pulses: Normal. Neurologic: Gait normal. Reflexes normal and symmetric. Sensation grossly intact.. Health Maintenance List Advance Directive Discussion due on 11/08/2024 Medicare Advantage Annual Wellness Visit due on 11/08/2024 Covid-19 Vaccine( season) due on 01/30/2025 Influenza Vaccine(1) due on 07/09/2025 LDL Cholesterol due on 01/19/2026 Diabetes Screening due on 01/20/2028 DTaP,Tdap,Td Vaccine(2 - Td or Tdap) due on 04/22/2033 Bone Density Screening Completed RSV Vaccine Completed Shingrix Vaccine Completed Pneumococcal Vaccine: 50+ Completed Colorectal Cancer Screening Discontinued ASSESSMENT/PLAN: 1. Medicare annual wellness visit, subsequent - ICD9: V70.0, ICD10: Z00.00 (primary diagnosis) - Counseled on healthy diet and regular exercise - Discussed need and benefit for weight loss. BMI 30.46 kg/(m^2) 2. Acquired hypothyroidism - ICD9: 244.9, ICD10: E03.9 - Instructed patient on importance of taking on an empty stomach either first thing in the morning or at bedtime. - check TSH in 3 months - continue current dose of Synthroid 0.137 mg 3. Essential hypertension - ICD9: 401.9, ICD10: I10 - Controlled - Continue current medications - Recommend home blood pressure monitoring, to bring results to next visit - Encouraged sodium restriction, DASH or Mediterranean diet - Recommend regular aerobic exercise 4. Mixed hyperlipidemia - ICD9: 272.2, ICD10: E78.2 - Controlled - Control undetermined, due for labs - Continue current medications - Counseled on healthy diet and regular exercise 5. Coronary artery 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 - ICD9: 414.00, 414.3, ICD10: I25.10, I25.83 -Follows with [facility], negative Stress and Echo however patient continues to have episodes of shortness of breath and anginal chest pain. No improvement with decrease in metoprolol. 6. Valvular heart disease - ICD9: 424.90, ICD10: I38 -Echo 7. Pulmonary emphysema, unspecified emphysema type (HCC) - ICD9: 492.8, ICD10: J43.9 - Symptoms controlled - Continue current medications 8. Severe obstructive sleep apnea AHI 32.5 - ICD9: 327.23, ICD10: G47.33 - Wears Cpap most nights 9. GERD without esophagitis - ICD9: 530.81, ICD10: K21.9 - Continue treatment with Prilosec 40 mg QD 10. Stage 3a chronic kidney disease (HCC) - ICD9: 585.3, ICD10: N18.31 - eGFR: 50 Stable - Counseled on avoiding NSAIDs, adequate hydration - Counseled on low sodium diet 11. Macular degeneration of both eyes, unspecified type - ICD9: 362.50, ICD10: H35.30 -Follows with ophthalmology 13. Advance directive discussed with patient - ICD9: V65.49, ICD10: Z71.89 - ADVANCE CARE PLAN DISCUSSION 14. Degeneration of intervertebral disc of lumbar region, unspecified whether pain present - ICD9: 722.52, ICD10: M51.369 - Continue celebrex and tramadol 15. Osteoarthritis, unspecified osteoarthritis type, unspecified site - ICD9: 715.90, ICD10: M19.90 - CELECOXIB 200 MG CAPSULE Discussed symptoms with Dr. Rodriguez and it is of both our opinions that patient needs cardiac catheterization due to symptoms and history despite negative stress test and unchanged echo. Will order CT cardiac calcium score while awaiting cardiology follow up. Nicole Zhang APRN.TOY STUFFER documented in this encounter [facility] 03-23-2025 Evaluation note Type assessment Exdtve age-rel mclr degn, left eye, with actv chrdl neovas impression Exdtve age-rel mclr degn, left eye, with actv chrdl neovas: H35.3221. Left. Condition: serious, chronic, stable. Status post Avastin x2 elsewhere, last 08-18-[address] Gonzalez due in Q 7-8 weeks. Status post Avastin here, last 02-25-2024 assessment Nexdtve age-related mclr degn, right eye, early dry stage impression Nexdtve age-related mclr degn, right eye, early dry stage: H35.3111. Right. Condition: serious, chronic, stable assessment Vitreous degeneration, bilateral impression Vitreous degeneratio n, bilateral: H43.813. Bilateral. Condition: chronic. PVD OU assessment Presence of pseudophakia 2024 impression Presence of pseudoph bren: Z96.1. Bilateral. Condition: established, stable assessment Essential (primary) hypertension impression Essential (primary) hypertension: I10. Bilateral. Condition: chronic [facility] Work Phone: [phone]) 635-742405-16-2025 History of Present illness Narrative* Encounter Date Complaint History Of Prese nt Illness macular degeneration followup Th e 84 year old patient presents for evaluation of macular degeneration followup. Patient states stable vision OU since last visit. No new flashes/floaters OU. Denies pain/discomfort OU. Macular Degeneration The 84 year old patient presents for evaluation of Macular Degeneration OU. Vision Stable OU. Patient has noticed a constant Floater since last visit OS, Denies Floaters OD. Denies Flashes OU. No pain or discomfort OU. AMD The 83 year old patient presents for evaluation of AMD in the right and left eyes. No Flashes or Floaters OU , No Pain OU AMD OS The 83 year old patient presents for evaluation of AMD OS. Injection only OS Avastin. Dry AMD OD Wet AMD OS The 83 yea r old patient presents for evaluation of Dry AMD OD Wet AMD OS. No pain/discomfort OU. No changes in vision OU since last visit. Patient is seeing lightning OU seems like when blood pressure gets low it happens. Patient denies floaters. Concerned of bloodshot eyes all the time OU. Wet AMD OS The 83 year old patient presents for evaluation of Wet AMD OS. Presents for Avastin IO OS today. No changes in vision since last exam. Wet AMD OS The 83 year old female presents for evaluation of Wet AMD OS and Dry AMD OD. Pt presents for possible Avastin OS today. She c/o of flashes of light when closing her left eye. Also states she sees "shadows in her right eye peripherally. Onset 1-2 weeks ago. Its not constant but occasional. Denies pain/discomfort. macular degeneration The 82 year old female presents for evaluation of macular degeneration in the left eye. IO Avastin OS. Macular Degeneration The 82 year old female presents for evaluation of Macular Degeneration in the right eye and left eye. Possible Avastin OS today. Pt denies new changes/concerns in vision since last exam. No new flashes/floaters Macular Degeneration The 82 year old female presents for Injection for Macular Degeneration in the left eye. No reported changes in vision since last exam. wet Age Related Macu lar Degeneration The 82 year old female presents for evaluation of New Patient for Wet Age Related Macular Degeneration. Vision is decreased. No pain or discomfort. Had Cat Surg OU09/28/2012 and 11/07/2012. Pt is due for injection as she missed last injection to come to this office. [facility] Work Phone: [phone] Instructions* Date Instruction Additional Infor mation Return in Related to Exdtv e age-rel mclr degn, left eye, with actv chrdl neovas Impression/Plan Related to Essen tial (primary) hypertension Impression/Plan Related to Exdtv e age-rel mclr degn, left eye, with actv chrdl neovas Impression/Plan Related to Nexdt ve age-related mclr degn, right eye, early dry stage Impression/Plan Related to Vitre ous degeneration, bilateral Impression/Plan Related to Prese nce of pseudophakia Return in 12-13 week (s) with Daniel Garcia MD for IO AVASTIN OS and OCT. 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 Author Type: LICENSED NURSE Type: Progress Notes Filed: 03/22/2025 10:15 Note Text: Scan on 03/22/2025 8:43 AM by Provider, External, PAJamesC: [facility] History of Present illness Narrative* Orly Richardson LPN - 03/22/2025 10:15 AM EDT Scan on 03/22/2025 8:43 AM by Provider, Gaudencio, VIN: Consultation - Cardiology [facility] History of Present illness Narrative* Papi Beltran MD - 02/07/2025 10:40 AM EDT Images from the original note were not included. CONSULT ORTHOPAEDIC: HIP PRIMARY CARE PHYSICIAN: Max Rodriguez MD REFERRING PROVIDER: Papi Beltran [address] [facility] [address] [place] [address] ASSESSMENT & PLAN This is an 84-year-old female who presents with right hip pain. Patient went a right total hip replacement Dr. Chaudhari 2018. She comes in today with newly developed pain is been going on for the past few months. She last saw Dr. Chaudhari for her hips in 2019 in September. She had history of lumbar radiculopathy at that point. She has been following here with Dr. Whiteside for bilateral knee arthritis. Sheunderwent bilateral knee injections on January 10, 2024. These were steroids. Patient has BMI of 30. Patient does have history of COPD. Does not currently smoke. No history of diabetes history of blood clots or blood thinners or immunosuppressive medication history of smoking. Patient states that her knees are doing well since the knee injections. Her right hip is having pain on the lateral aspect of her hip. She states this is on and off and intermittent. She has done physical therapy through [facility] but continues to have pain with this. Has no groin pain has no pain with weightbearing he has no fevers or chills no signs of infection. Pain is mostly located over the greater trochanter. Impression: Right hip pain status post total hip replacement [address] Chaudhari, trochanteric bursitis Discussed with her the etiology of trochanteric bursitis evaluation of her left will send the patient to physical therapy with emphasis on IT band stretching massage therapy with abductor stretching.Will start prednisone as well to help with anti-inflammatory she was told that it affects. Follow-up in 3 to 4 months as needed Diagnoses: (M70.61) Trochanteric bursitis of right hip (primary encounter diagnosis) (M17.0) Primary osteoarthritis of both knees Risk Factors for Total Knee Arthroplasty (TKA) Major Risk Factors Obesity Moderate Risk High: BMI > 40 Moderate: BMI 30-40 Normal: BMI < 30 Diabetes normal High: A1C > 8 Moderate: A1C 7-8 Normal: A1C < 7 Hx of DVT / PE normal High: dx of DVT / PE Normal: no dx of DVT / PE Smoking normal High: Current smoker Normal: Non smoker Narcotics Use High Risk High:NarxCare >=300 Moderate: 100-299 Normal: 0-99 Depression Unknown Risk High: PHQ-9 >14 Moderate: PHQ-9 5-14 Normal: PHQ-9 < 5 Area Deprivation Index (STACIE) Unknown Risk High: STCAIE Score > 75 Moderate: STACIE 50-75 Normal: STACIE < 50 Obesity: weight management recommended BMI Readings from Last 3 Encounters: 01/26/25 : 30.05 kg/m 01/22/25 : 30.40 kg/m 01/22/25 : 30.40 kg/m Area Deprivation Index (STACIE) 03/20/2022 04/22/2023 STACIE Score National Score 82 79 Patient Health Questionnaire (PHQ-9) 08/16/2019 01/20/2023 01/26/2024 PHQ-9 PHQ-2 Score 0 1 2 (0-4) minimal depression, (5-9) mild depression, (10-14) moderate depression, (15-19) moderately severe depression, (20-27) severe depression Bone Density Risk Screen Anne Marie Garza is at risk for bone loss and has not had a bone densitometry scan in the last 2 years (date of last scan: 07/06/2017). Recommend a bone densitometry scan and if indicated on the bone density results, a consult to a bone health specialist (Rheumatology, Endocrinology, or Women's Health) for bone assessment. Risk Factors: Use of Proton Pump Inhibitors History of falls Dx of Chronic Kidney Disease (CKD) Prednisone or use of systemic steroids Additional Risk Factors COPD NarxCare score NARX Narcotics: 381 (02/06/2025 4:23 PM) Recommend a consult to Chronic Pain Management. Obstructive Sleep Apnea (MATT) Past Orthopaedic Surgery: Anne Marie had hip surgery on 12/30/2018 with César Meek. Anne Marie had wrist surgery on 02/09/2018with Bob Whiteside. Malnutrition: No Malnutrition Screening Tool (MST) score on file- please complete the MST screeningtool (click here to open) and refresh the note. ACTIVE PROBLEM LIST History of Non-St Elevation Myocardial Infarction (Nstemi) Mixed Hyperlipidemia Anxiety Ex-Smoker Low Vitamin B12 Level Intradermal Nevus Keratosis, Inflamed Seborrheic Colon Cancer Screening Severe obstructive sleep apnea AHI 32.5 Coronary Artery Disease Due to Lipid Rich Plaque Acquired Hypothyroidism Bpv (Benign Positional Vertigo) Pulmonary Emphysema (Hcc) Trigger Middle Finger of Left Hand Trigger Index Finger of Left Hand Osteoarthritis Recurrent Major Depressive Disorder, in Partial Remission Pain in Right Hip Neoplasm of Uncertain Behavior of Face Essential Hypertension Medicare Annual Wellness Visit, Subsequent Encounter for Screening Mammogram for Breast Cancer Elevated Hemoglobin A1c Left Carpal Tunnel Syndrome Lumbar Radicular Pain Degenerative Disc Disease, Lumbar Over Weight Status Post Total Replacement of Right Hip Trochanteric Bursitis of Left Hip Epidermal Inclusion Cyst Personal History of Colonic Polyps Elevated Hemoglobin Medication Management Arthritis of Both Knees Chronic Pain of Both Knees Living Will in Place History of Covid-19 Gerd Without Esophagitis Macular Degeneration of Both Eyes Advance Directive Discussed With Patient Stage 3a Chronic Kidney Disease (Hcc) Lump Or Mass in Breast Bilateral Carotid Artery Stenosis Right Lumbar Pain Valvular Heart Disease SUBJECTIVE CHIEF COMPLAINT: Hip Pain HPI: Anne Marie Garza is a 84 year old patient with the presenting complaint of New and Pain of the Left Hip. Anne Marie Garza has had progressive problems with the hip(s) most of the day over the past 6 month(s) interfering with activities which include walking 2 blocks and rising from a sitting position. The problem began limiting activities 7-12 months ago. Anne Marie reports a current pain level of 6 (Hip-Right). She describes the pain as Sharp. The pain is Intermittent, and has lasted for 8 Months. Interventions tried include Medication, Reposition, Relaxation. FALL RISK: Anne Marie is not currently at risk for falls. PROMIS Physical Function Score Descriptive Summary for PROMIS Physical Function T-score = 30 (Percentile 2) Unable - Do 2 hours of physical labor Unable - Walk at a normal speed. 02/06/2025 PROMIS CAT Physical Function T-Score 30 (moderate dysfunction) Percentile 2 FUNCTIONAL STATUS: Do yardwork, such as raking leaves, weeding,or pushing a power mower (4.50 METs) PREVIOUS TREATMENTS: Last Hip Surgery: 12/30/2018 with César Meek Current Anti-Inflammatory medications: celecoxib, prednisone Past anti-inflammatory medications (not necessarily for this reason for visit): betamethasone acetate,sod phos, celecoxib, dexamethasone sodium phosphate, hydrocortisone sod succinate, ketorolac tromethamine, meloxicam, methylprednisolone, prednisone, triamcinolone acetonide Bilateral knee corticosteroid injections multiple times. Last in January REVIEW OF SYSTEMS: GENERAL: Denies fever, chills malaise and weight loss.. PAIN ASSESSMENT: See HPI. CARDIOVASCULAR: Denies chest pain, history of A-fib, valvular disease, hypertension, CHF or pacemaker/ICD.. RESPIRATORY: Denies SOB, sputum production, dyspnea, COPD and hemoptysis.. MUSCULOSKELETAL: See HPI. NEURO: Denies CVA, seizures, headaches.. ENDOCRINE: Denies diabetes, thyroid disease.. 12/30/2018 Malnutrition Screening Tool (MST) Lost Weight Recently Without Trying? If Yes, Amount of Weight Loss(lbs) 0:No Eating Poorly Because of a Decreased Appetite 0:No Weight Loss Score (Calculated) 0 Appetite Score (Calculated) 0 Total MST Score (Calculated) 0 PAST MEDICAL HISTORY Diagnosis Date Acquired hypothyroidism 08/02/2015 Advance directive discussed with patient 01/20/2023 Discussed 01/2023: Up to date Anxiety 01/19/2010 -continue home citalopram Bilateral carotid artery stenosis 12/31/2023 US 12/2023: Rt 20-40% Lt 60-80% BPV (benign positional vertigo) 08/02/2015 Chronic pain of both knees 05/24/2020 Seeing Ortho: Dr. Whiteside Coronary artery 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 08/02/2015 Not seeing cardiology Degenerative disc disease, lumbar 05/26/2018 Elevated hemoglobin 04/17/2020 to be rechecked 05/17/2020 Elevated hemoglobin A1c 12/30/2017 Epidermal inclusion cyst 09/09/2019 anterior chest wall excised 08/2019 Essential hypertension 01/26/2017 Graves disease Heart attack (HCC) [place] [facility] stent in heart History of COVID-19 07/08/202205/2022 History of non-ST elevation myocardial infarction (NSTEMI) 01/19/201001/2010 Intradermal nevus 12/30/2014 right inferrior medial breast Keratosis, inflamed seborrheic 12/30/2014 right upper back Left carpal tunnel syndrome 01/04/[address] 12/03/2021 Daughter Truong is DPOA Low vitamin B12 level 04/06/2014 Lumbar radicular pain 05/26/2018 Added automatically from request for surgery [id number] Lump or mass in breast 01/20/2023 Patient [...] Recurrent major depressive disorder, in partial remission 04/14/2016 Severe obstructive sleep apnea AHI 32.5 04/24/2015 DME: [employer] Smoker 01/19/2010 Started at age 31 up to 1 PPD Stage 3a chronic kidney disease (HCC) 01/20/2023 Status post total replacement of right hip 12/30/2018 Trigger index finger of left hand 08/22/2015 Trigger middle finger of left hand 08/04/2015 Trochanteric bursitis of left hip 08/16/2019 PAST SURGICAL HISTORY Procedure Laterality Date 2D ECHO (EXEP) 12/21/2019 EF=60%, 1+ TI, AR, AI 2D ECHO (EXEP) 02/17/2021 EF= 60%, [...] and 11-07-12 Cataract Extraction with PC IOL FAMILY HISTORY Problem Relation Age of Onset Coronary Artery Disease Mother blood clots- at 65 Cancer Father prostate Hypertension Father Asthma Father Alzheimer's Disease Brother at 78 Breast Cancer Daughter Breast Cancer Daughter Blood Clots Daughter while preganant- PE Social History Tobacco Use Smoking status: Former Current packs/day: 1.00 Average packs/day: 1 pack/day for 54.2 years (54.2 ttl pk-yrs) Types: Cigarettes Start date: 1970 Smokeless tobacco: Never Tobacco comments: Started at age 31 Vaping Use Vaping status: current everyday user Substances: Nicotine Devices: Pre-filled or refillable cartridge Substance Use Topics Alcohol use: Yes Comment: occasional glass of wine, once a month Drug use: No ALLERGIES: Iodine, Hctz [Thiazides], Mary Inhibitors, Chantix [Varenicline], Lipitor [Atorvastatin Calcium], Mucinex [Guaifenesin], Pravachol [Pravastatin Sodium], and Zanaflex [Tizanidine] MEDICATIONS: amLODIPine (NORVASC) 5 mg tablet Take 1 tablet by mouth once daily. DULoxetine (CYMBALTA) 30 mg capsule Take 1 capsule by mouth once daily. In place of the Citaloram levothyroxine (LEVOXYL) 137 mcg tablet Take one tab by mouth once a day Wed-Wed, 1/2 on Wed and none on Wednesday. Take on empty stomach. For Thyroid. metoprolol succinate ER (TOPROL XL) 100 mg Take 1 tablet by mouth once daily. omeprazole (PRILOSEC) 40 mg capsule Take 1 capsule by mouth two times a day. rosuvastatin (CRESTOR) 5 mg tablet Take 1 tablet by mouth once daily. valsartan (DIOVAN) 320 mg tablet Take 1 tablet by mouth once daily. Cyanocobalamin 1,000 mcg TbER Take 1 tablet by mouth once daily. celecoxib (CELEBREX) 200 mg capsule Take 1 capsule by mouth two times a day. traMADol (ULTRAM) 50 mg tablet Take 1 tablet by mouth every 8 hours as needed for pain for up to 90days. Patient should start on January 04, 2025. albuterol HFA (PROVENTIL HFA, VENTOLIN HFA) 90 mcg/actuation inhaler Inhale 2 Puffs as instructed every 4 hours as needed. fluticasone-salmeterol (WIXELA INHUB) 250-50 mcg/dose inhaler Inhale 1 Puff as instructed two timesa day. nitroglycerin sublingual (NITROQUICK) 0.4 mg SL tablet Dissolve 1 tablet under the tongue every 5 minutes as needed. ondansetron orally disintegrating (ZOFRAN ODT) 4 mg disintegrating tablet Take 1 tablet by mouth every 6 hours as needed for nausea/vomiting. aspirin, enteric coated (ASPIRIN, ENTERIC COATED) 81 mg EC tablet Take 81 mg by mouth once daily. predniSONE (DELTASONE) 2.5 mg tablet Take 1 tablet by mouth two times a day for 10 days. OBJECTIVE PHYSICAL EXAM There were no vitals taken for this visit. All other systems deferred. GENERAL: Appears healthy, well-nourished, no deformities. HABITUS: Normal GAIT: Antalgic to the right HIP EXAM: Right: ROM: Extension: full extension Flexion: 90 degrees Internal Rotation: 10 degrees External Rotation: 20 degrees Abduction: 30 degrees Adduction: 30 degrees Strength: Abduction 5/5, Flexion 5/5, and Pain with resisted abduction Palpation: Tenderness over right greater trochanter Log roll: non-painful. Straight leg raise: Negative Neurovascular Status: Sensation Intact, Moves foot and ankle up & down, and 2+ dorsalis pedis DATA: Diagnostic tests reviewed for today's visit: Bilateral knee x-rays show severe degenerative changes tricompartmental arthritis with complete joint space narrowing right lateral compartment the knee and left knee with medial compartment severe narrowing. Right hip x-ray shows [place] components cementless in place with no signs of loosening or changes of the previous x-rays. There is no subsidence of the head is concentrically inside the acetabulum. I spent a total of approximately 35 minutes on the date of the service which included preparing to see the patient, [id number] patient care, completing clinical documentation, obtaining and/or reviewing separately obtained history, performing a medically appropriate examination, counseling and educating the patient/family/caregiver, ordering medications, tests, or procedures, communicating withother HCPs (not separately reported), independently interpreting results (not separately reported),communicating results to the patient/family/caregiver, and care coordination (not separately reported). SIGNATURE: Papi Beltran MD PATIENT NAME: Anne Marie Garza DATE: February 07, 2025 TIME: 7:35 AM documented [facility] encounterL[facility]04-[facility]-2025 NoteHNO ID: [id number] Author: PAPI BELTRAN MD Service: ? Author Type: Physician Type: Progress Notes Filed: 02/07/2025 10:43 Note Text: CONSULT ORTHOPAEDIC: HIP PRIMARY CARE PHYSICIAN: Max Rodriguez MD REFERRING PROVIDER: Papi Beltran [facility] [place] [address] ASSESSMENT AND PLAN This is an 84-year-old female who presents with right hip pain. Patient went a right total hip replacement Dr. Chaudhari 2018. She comes in today with newly developed pain is been going on for the past few months. She last saw Dr. Chaudhari for her hips in 2019 in September. She had history of lumbar radiculopathy at that point. She has been following here with Dr. Whiteside for bilateral knee arthritis. She underwent bilateral knee injections on January 10, 2024. These were steroids. Patient has BMI of 30. Patient does have history of COPD. Does not currently smoke. No history of diabetes history of blood clots or blood thinners or immunosuppressive medication history of smoking. Patient states that her knees are doing well since the knee injections. Her right hip is having pain on the lateral aspect of her hip. She states this is on and off and intermittent. She has done physical therapy through [facility] but continues to have pain with this. Has no groin pain has no pain with weightbearing he has no fevers or chills no signs of infection. Pain is mostly located over the greater trochanter. Impression: Right hip pain status post total hip replacement [address] Chaudhari, trochanteric bursitis Discussed with her the etiology of trochanteric bursitis evaluation of her left will send the patient to physical therapy with emphasis on IT band stretching massage therapy with abductor stretching. Will start prednisone as well to help with anti-inflammatory she was told that it affects. Follow-up in 3 to 4 months as needed Diagnoses: (M70.61) Trochanteric bursitis of right hip (primary encounter diagnosis) (M17.0) Primary osteoarthritis of both knees Risk Factors for Total Knee Arthroplasty (TKA) Major Risk Factors Obesity Moderate Risk High: BMI > 40 Moderate: BMI 30-40 Normal: BMI < 30 Diabetes normal High: A1C > 8 Moderate: A1C 7-8 Normal: A1C < 7 Hx of DVT / PE normal High: dx of DVT / PE Normal: no dx of DVT / PE Smoking normal High: Current smoker Normal: Non smoker Narcotics Use High Risk High:NarxCare >=300 Moderate: 100-299 Normal: 0-99 Depression Unknown Risk High: PHQ-9 >14 Moderate: PHQ-9 5-14 Normal: PHQ-9 < 5 Area Deprivation Index (STACIE) Unknown Risk High: STACIE Score > 75 Moderate: STACIE 50-75 Normal: STACIE < 50 Obesity: weight management recommended BMI Readings from Last 3 Encounters: 01/26/25 : 30.05 kg/m? 01/22/25 : 30.40 kg/m? 01/22/25 : 30.40 kg/m? Area Deprivation Index (STACIE) 03/20/2022 04/22/2023 STACIE Score National Score 82 79 Patient Health Questionnaire (PHQ-9) 08/16/2019 01/20/2023 01/26/2024 PHQ-9 PHQ-2 Score 0 1 2 (0-4) minimal depression, (5-9) mild depression, (10-14) moderate depression, (15-19) moderately severe depression, (20-27) severe depression Bone Density Risk Screen Anne Marie Garaz is at risk for bone loss and has not had a bone densitometry scan in the last 2 years (date of last scan: 07/06/2017). Recommend a bone densitometry scan and if indicated on the bone density results, a consult to a bone health specialist (Rheumatology, Endocrinology, or Women's Health) for bone assessment. Risk Factors: Use of Proton Pump Inhibitors History of falls Dx of Chronic Kidney Disease (CKD) Prednisone or use of systemic steroids Additional Risk Factors COPD [facility] score NARX Narcotics: 381 (02/06/2025 4:23 PM) Recommend a consult to Chronic Pain Management. Obstructive Sleep Apnea (MATT) Past Orthopaedic Surgery: Anne Marie had hip surgery on 12/30/2018 with César Meek. Anne Marie had wrist surgery on 02/09/2018 with Bob Whiteside. Malnutrition: No Malnutrition Screening Tool (MST) score on file- please complete the MST screening tool (click here to open) and refresh the note. ACTIVE PROBLEM LIST History of Non-St Elevation Myocardial Infarction (Nstemi) Mixed Hyperlipidemia Anxiety Ex-Smoker Low Vitamin B12 Level Intradermal Nevus Keratosis, Inflamed Seborrheic Colon Cancer Screening Severe obstructive sleep apnea AHI 32.5 Coronary Artery Disease Due to Lipid Rich Plaque Acquired Hypothyroidism Bpv (Benign Positional Vertigo) Pulmonary Emphysema (Hcc) Trigger Middle Finger of Left Hand Trigger Index Finger of Left Hand Osteoarthritis Recurrent Major Depressive Disorder, in Partial Remission Pain in Right Hip Neoplasm of Uncertain Behavior of Face Essential Hypertension Medicare Annual Wellness Visit, Subsequent Encounter for Screening Mammogram for Breast Cancer Elevated Hemoglobin A1c Left Carpal Tunnel Syndrome Lumbar Radicular Pain Degenerative D (more content not included)...[facility] 02-07-2025 History of Present illness Narrative* Maylin Garcia Tech - 02/07/2025 10:20 AM EDT Radiology Service Progress Note PATIENT NAME: Anne Marie Garza DATE OF SERVICE: February 07, 2025 TIME: 10:27 AM PATIENT IDENTITY VERIFICATION COMPLETED USING TWO (2) IDENTIFIERS: Name and Date of confirmedby patient verbally. FALL SCREENING: Has the patient had 2 falls in the last year or 1 fall with injury or currently using an Ambulatory Assistive Device (Walker, Cane, Wheelchair, Crutches, etc.)? No PATIENT GENDER DATA: Assigned female at . status: : No status:NO. PATIENT RELEVANT IMPLANT DATA REVIEWED: Not Applicable PATIENT PRESENTS WITH AN IMPLANTABLE OR ATTACHED LEAD ENGINEER: No RADIOLOGY DEPARTMENT: General X-ray: Exam(s) Completed: Pelvis X-Ray: Pelvis with Hip Right and Wt.Bearing Lower Extremity X-Ray(s): Leg Length PERIPHERAL IV DATA: Not applicable SIGNED BY: Cody Li February 07, 2025 10:27 AM documented in this encounterLutheran Hospital04-02-2025 NoteHNO ID: [id number] Author: MAYLIN GARCIA Tech Service: Radiology Author Type: Video Production Engineer Type: Progress Notes Filed: 02/07/2025 10:27 Note Text: Radiology Service Progress Note PATIENT NAME: Anne Marie Garza DATE OF SERVICE: February 07, 2025 TIME: 10:27 AM PATIENT IDENTITY VERIFICATION COMPLETED USING TWO (2) IDENTIFIERS: Name and Date of confirmed by patient verbally. FALL SCREENING: Has the patient had 2 falls in the last year or 1 fall with injury or currently using an Ambulatory Assistive Device (Walker, Cane, Wheelchair, Crutches, etc.)? No PATIENT GENDER DATA: Assigned female at . status: : No status: NO. PATIENT RELEVANT IMPLANT DATA REVIEWED: Not Applicable PATIENT PRESENTS WITH AN IMPLANTABLE OR ATTACHED LEAD ENGINEER: No RADIOLOGY DEPARTMENT: General X-ray: Exam(s) Completed: Pelvis X-Ray: Pelvis with Hip Right and Wt. Bearing Lower Extremity X-Ray(s): Leg Length PERIPHERAL IV DATA: Not applicable SIGNED BY: Cody Li February 07, 2025 10:27 AMTr[facility] [id number] NoteHNO ID: [id number] Author: ORLY RICHARDOSN LPN Service: ? Author Type: LICENSED NURSE Type: Progress Notes Filed: 02/05/2025 15:16 Note Text: Scan on 02/01/2025 11:40 AM by Gaudencio Castro PA-C: Hematology Scan on 02/01/2025 1:14 PM by Gaudencio Castro PA-C: [facility] History of Present illness Narrative* Orly Richardson LPN - 02/05/2025 3:15 PM EDT Scan on 02/01/2025 11:40 AM by Gaudencio Castro PA-C: Hematology Scan on 02/01/2025 1:14 PM by Gaudencio Castro PA-C: Chemistry documented in this encounterLutheran Hospital03-21-2025 Telephone encounter Note * Telephone Encounter - Katherin Schmidt MA - 01/26/2025 3:28 PM EDT Spoke with daughter and gave results and instruction. Voiced understanding. Faxed information to Dr. Rasmussen's office. Katherin Schmidt MA [facility]03-21-2025 Miscellaneous Notes* Telephone Encounter - Katherin Schmidt MA - 01/26/2025 3:28 PM EDT Spoke with daughter and gave results and instruction. Voiced understanding. Faxed information to Dr. Rasmussen's office. Katherin Schmidt MA * Telephone Encounter - Max Rodriguez MD - 01/26/2025 2:50 PM EDT Please let patient know that the echo looks ok. Please fax a copy of the PFT's done 01/22/2025, stress test from 01/24/2025 and echo from 01/25/[address] Rasmussen. Please write on it that Patient is having significant dyspnea on exertion. PFT's do not coincide with the degree of symptoms per pulmonary. After the PFT's she actually had chest pain. Dr. Rodriguez would like for her to be considered for heart cath. documented in this encounterLutheran Hospital03-21-2025 Telephone encounter Note * Telephone Encounter - Max Rodriguez MD - 01/26/2025 2:50 PM EDT Please let patient know that the echo looks ok. Please fax a copy of the PFT's done 01/22/2025, stress test from 01/24/2025 and echo from 01/25/[address] Rasmussen. Please write on it that Patient is having significant dyspnea on exertion. PFT's do not coincide with the degree of symptoms per pulmonary. After the PFT's she actually had chest pain. Dr. Rodriguez would like for her to be considered for heart cath. [facility]03-21-[facility] Instructions* Patient Instructions* Max Rodriguez MD - 01/26/2025 10:43 AM EDT Please get back on the B12 1000 mcg once a day documented in this encounterLutheran Hospital03-21-2025 NoteHNO ID: [id number] Author: MAX RODRIGUEZ MD Service: ? Author Type: Physician Type: Progress Notes Filed: 01/26/2025 12:22 Note Text: Chief Complaint Patient presents with: Breathing Problem HPI Anne Marie Garza is a 84 year old female who presents here today for SOB. Yesterday after a shower she was very short of breath and even had some dry heaving. No vomiting. Denies any chest pain or pressure. No diaphoresis. Patient had her breathing test recently and Pulmonary said her studies did not show significant disease to explain her symptoms. She also had chest pain after pulmonary function test. Daughter thinks she gets leg swelling and some days better then others. No recent dysuria, urgency, frequency or hematuria. She finished her antibiotic that I placed her on recently and no longer having a sore throat. At appt on 01/10/2025 she did have a slightly firm tender mass on the right side of the neck that could of been an enlarged submandibular gland or lymph node.. Office visit - 01/10/2025 Patient has been taking her omeprazole twice a day every day. Has not noted any acid burning up into her throat no acid taste. The sore throat is only on the right side and has been going on for about two weeks. The dysphagia with solids only has been going on for about 2 months. Grand daughter who resides in her home was treated for step 3 weeks ago the dysphagia is with solids only. The cough is throughout the day and night. No increased nasal discharge or a sensation of post nasal drainage. No nausea or epigastric pain. Is getting very easily winded with trying to ambulate. Has a reduced stamina. No chest pains. No palpitations. Patient saw Pulmonary (Dr Nicholas) but didn't want to do any further testing. Patient also sees Dr. Rasmussen in March 2025. Did walking test on RA and was 92-93% SaO2 ; Pulse at 94-96; no dizziness or lightheadedness; no chest. Just felt weak. At rest 95% on RA 72 pulse Patient with Hx of hypothyroidism, CAD, COPD, HTN, elevated A1c, hyperlipidemia, emphysema, depression, anxiety, obesity, MATT, smoker, low B12, Arthritis with chronic pain especially the knees as well as those reviewed and addressed below and in ROS. Past medical history, appointments, medications, allergies reviewed. Previous Medical History PAST MEDICAL HISTORY Diagnosis Date Acquired hypothyroidism 08/02/2015 Advance directive discussed with patient 01/20/2023 Discussed 01/2023: Up to date Anxiety 01/19/2010 -continue home citalopram Bilateral carotid artery stenosis 12/31/2023 US 12/2023: Rt 20-40% Lt 60-80% BPV (benign positional vertigo) 08/02/2015 Chronic pain of both knees 05/24/2020 Seeing Ortho: Dr. Whiteside Coronary artery 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 08/02/2015 Not seeing cardiology Degenerative disc disease, lumbar 05/26/2018 Elevated hemoglobin (HCC) 04/17/2020 to be rechecked 05/17/2020 Elevated hemoglobin A1c 12/30/2017 Epidermal inclusion cyst 09/09/2019 anterior chest wall excised 08/2019 Essential hypertension 01/26/2017 Graves disease Heart attack (HCC) [facility] stent in heart History of COVID-19 07/08/202205/2022 History of non-ST elevation myocardial infarction (NSTEMI) 01/19/201001/2010 Intradermal nevus 12/30/2014 right inferrior medial breast Keratosis, inflamed seborrheic 12/30/2014 right upper back Left carpal tunnel syndrome 01/04/[address] 12/03/2021 Daughter Truong is DPOA Low vitamin B12 level 04/06/2014 Lumbar radicular pain 05/26/2018 Added automatically from request for surgery [id number] Lump or mass in breast 01/20/2023 Patient [...] Recurrent major depressive disorder, in partial remission ([facility]) 04/14/2016 Severe obstructive sleep apnea AHI 32.5 04/24/2015 DME: [employer] Smoker 01/19/2010 Started at age 31 up to 1 PPD Stage 3a chronic kidney disease (HCC) 01/20/2023 Status post total replacement of right hip 12/30/2018 Trigger index finger of left hand 08/22/2015 Trigger middle finger of left hand 08/04/2015 Trochanteric bursitis of left hip 08/16/2019 Previous Surgical History PAST SURGICAL HISTORY Procedure Laterality (more content not included)...[facility] 01-26-2025 History of Present illness Narrative* Max Rodriguez MD - 01/26/2025 10:02 AM EDT Chief Complaint Patient presents with: Breathing Problem HPI Anne Marie Garza is a 84 year old female who presents here today for SOB. Yesterday after a shower she was very short of breath and even had some dry heaving. No vomiting. Denies any chest pain or pressure. No diaphoresis. Patient had her breathing test recently and Pulmonary said her studies did not show significant disease to explain her symptoms. She also had chest pain after pulmonary function test. Daughter thinks she gets leg swelling and some days better then others. No recent dysuria, urgency, frequency or hematuria. She finished her antibiotic that I placed her on recently and no longer having a sore throat. At appt on 01/10/2025 she did have a slightly firm tender mass on the right side of the neck that could of been an enlarged submandibular gland or lymph node.. Office visit - 01/10/2025 Patient has been taking her omeprazole twice a day every day. Has not noted any acid burning up into her throat no acid taste. The sore throat is only on the right side and has been going on for about two weeks. The dysphagia with solids only has been going on for about 2 months. Grand daughter whoresides in her home was treated for step 3 weeks ago the dysphagia is with solids only. The cough is throughout the day and night. No increased nasal discharge or a sensation of post nasal drainage. No nausea or epigastric pain. Is getting very easily winded with trying to ambulate. Has a reduced stamina. No chest pains. No palpitations. Patient saw Pulmonary (Dr Nicholas) but didn't want to do any further testing. Patient also sees Dr. Rasmussen in March 2025. Did walking test on RA and was 92-93% SaO2 ; Pulse at 94-96; no dizziness or lightheadedness; no chest. Just felt weak. At rest 95% on RA 72 pulse Patient with Hx of hypothyroidism, CAD, COPD, HTN, elevated A1c, hyperlipidemia, emphysema, depression, anxiety, obesity, MATT, smoker, low B12, Arthritis with chronic pain especially the knees as well as those reviewed and addressed below and in ROS. Past medical history, appointments, medications, allergies reviewed. Previous Medical History PAST MEDICAL HISTORY Diagnosis Date Acquired hypothyroidism 08/02/2015 Advance directive discussed with patient 01/20/2023 Discussed 01/2023: Up to date Anxiety 01/19/2010 -continue home citalopram Bilateral carotid artery stenosis 12/31/2023 US 12/2023: Rt 20-40% Lt 60-80% BPV (benign positional vertigo) 08/02/2015 Chronic pain of both knees 05/24/2020 Seeing Ortho: Dr. Whiteside Coronary artery 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 08/02/2015 Not seeing cardiology Degenerative disc disease, lumbar 05/26/2018 Elevated hemoglobin (HCC) 04/17/2020 to be rechecked 05/17/2020 Elevated hemoglobin A1c 12/30/2017 Epidermal inclusion cyst 09/09/2019 anterior chest wall excised 08/2019 Essential hypertension 01/26/2017 Graves disease Heart attack (HCC) [facility] stent in heart History of COVID-19 07/08/202205/2022 History of non-ST elevation myocardial infarction (NSTEMI) 01/19/201001/2010 Intradermal nevus 12/30/2014 right inferrior medial breast Keratosis, inflamed seborrheic 12/30/2014 right upper back Left carpal tunnel syndrome 01/04/[address] 12/03/2021 Daughter Truong is DPOA Low vitamin B12 level 04/06/2014 Lumbar radicular pain 05/26/2018 Added automatically from request for surgery [id number] Lump or mass in breast 01/20/2023 Patient [...] 2D ECHO (EXEP) 12/21/2019 EF=60%, 1+ TI, AR, AI 2D ECHO (EXEP) 02/17/2021 EF= 60%, [...] FAMILY HISTORY Problem Relation Age of Onset Coronary Artery Disease Mother blood clots- at 65 Cancer Father prostate Hypertension Father Asthma Father Alzheimer's Disease Brother at 78 Breast Cancer Daughter Breast Cancer Daughter Blood Clots Daughter while preganant- PE Patient Allergies ALLERGIES Allergen Reactions Iodine Anaphylaxis Hctz [Thiazides] Other: See Comments Dehydrated, nauseated and week Mary Inhibitors Cough Chantix [Vareniclin* Other: See Comments Bad dreams Lipitor [Atorvastat* Other: See Comments Muscle pains Mucinex [Guaifenesi* Mental Status Change dizziness and confusion Pravachol [Pravasta* Other: See Comments Muscle aches Zanaflex [Tizanidin* Other: See Comments Caused pt to feel jittery all over Current Medications Current Outpatient Medications on File Prior to Visit Medication Sig celecoxib (CELEBREX) 200 mg capsule Take 1 capsule by mouth two times a day. traMADol (ULTRAM) 50 mg tablet Take 1 tablet by mouth every 8 hours as needed for pain for up to 90days. Patient should start on January 04, 2025. albuterol HFA (PROVENTIL HFA, VENTOLIN HFA) 90 mcg/actuation inhaler Inhale 2 Puffs as instructed every 4 hours as needed. levothyroxine (LEVOXYL) 137 mcg tablet Take one tab by mouth once a day Wed-Wed, 1/2 on Sat and none on Wednesday. Take on empty stomach. For Thyroid. amLODIPine (NORVASC) 5 mg tablet Take 1 tablet by mouth once daily. metoprolol succinate ER (TOPROL XL) 100 mg Take 1 tablet by mouth once daily. omeprazole (PRILOSEC) 40 mg capsule Take 1 capsule by mouth two times a day. rosuvastatin (CRESTOR) 5 mg tablet Take 1 tablet by mouth once daily. valsartan (DIOVAN) 320 mg tablet Take 1 tablet by mouth once daily. fluticasone-salmeterol (WIXELA INHUB) 250-50 mcg/dose inhaler Inhale 1 Puff as instructed two timesa day. DULoxetine (CYMBALTA) 30 mg capsule Take 1 capsule by mouth once daily. In place of the Citaloram nitroglycerin sublingual (NITROQUICK) 0.4 mg SL tablet Dissolve 1 tablet under the tongue every 5 minutes as needed. ondansetron orally disintegrating (ZOFRAN ODT) 4 mg disintegrating tablet Take 1 tablet by mouth every 6 hours as needed for nausea/vomiting. aspirin, enteric coated (ASPIRIN, ENTERIC COATED) 81 mg EC tablet Take 81 mg by mouth once daily. No current facility-administered medications on file prior to visit. Social History Social History Tobacco Use Smoking status: Former Current packs/day: 1.00 Average packs/day: 1 pack/day for 54.2 years (54.2 ttl pk-yrs) Types: Cigarettes Start date: 1970 Smokeless tobacco: Never Tobacco comments: Started at age 31 Vaping Use Vaping status: current everyday user Substances: Nicotine Devices: Pre-filled or refillable cartridge Substance Use Topics Alcohol use: Yes Comment: occasional glass of wine, once a month Drug use: No Review of Symptoms REVIEW OF SYSTEMS See HPI EXAM: BP 130/60 Pulse (!) 54 Resp 18 Wt 78.9 kg (174 lb) SpO2 96% BMI 30.05 kg/m General Appearance: Well appearing, alert, in no acute distress, well-hydrated, well nourished.. Neck: Supple, no adenopathy; thyroid symmetric, normal size, no bruits. No further lump on the right side. Lungs: Lungs clear to auscultation. No wheezing, rhonchi, rales.. Heart: RRR without murmur, gallop, or rubs. No ectopy. Abdomen: Normal abdominal exam, Abdomen soft, non-tender. Bowel sounds normal. No masses, organomegaly. Extremities: No deformities, edema, skin discoloration, Good capillary refill. . Health Maintenance List Advance Directive Discussion due on 11/08/2024 Covid-19 Vaccine( season) due on 01/30/2025 LDL Cholesterol due on 01/19/2026 Diabetes Screening due on 01/20/2028 DTaP,Tdap,Td Vaccine(2 - Td or Tdap) due on 04/22/2033 Bone Density Screening Completed Spirometry Completed Influenza Vaccine Completed RSV Vaccine Completed Shingrix Vaccine Completed Pneumococcal Vaccine: 50+ Completed Colorectal Cancer Screening Discontinued Data reviewed A/P ASSESSMENT/PLAN: 1. SOB (shortness of breath) - ICD9: 786.05, ICD10: R06.02 (primary diagnosis) - wit the fact her recent breathing tests were unremarkable it is felt her shortness of breath is not lung related. Her recent nuclears stress was read as normal but question if a false neg with the symptoms she is having. Will await echo report from study done today. However anticipate need for Cath per cardio ([facility]) 2. Lymphadenopathy - ICD9: 785.6, ICD10: R59.1 - resolved. 3. Acquired hypothyroidism - ICD9: 244.9, ICD10: E03.9 - Instructed patient on importance of taking on an empty stomach either first thing in the morning or at bedtime. - continue current dose of Synthroid - LEVOTHYROXINE 137 MCG TABLET 4. Essential hypertension - ICD9: 401.9, ICD10: I10 - Controlled - Continue current medications - Recommend home blood pressure monitoring, to bring results to next visit - Encouraged sodium restriction, DASH or Mediterranean diet - Recommend regular aerobic exercise - Discussed need for and benefit of weight loss. BMI 30.05 kg/(m^2) - VALSARTAN 320 MG TABLET 5. Low vitamin B12 level - ICD9: 790.6, ICD10: R79.89 - advised patient to get back on the B12 1000 mcg once a day I spent a total of 30 minutes on the date of the service which included preparing to see the patient, [id number] patient care, completing clinical documentation, performing a medically appropriate examination, counseling and educating the patient/family/caregiver and ordering medications, tests, or procedures. Max Rodriguez MD documented in this encounterLuther[facility]03-20-2025 Telephone encounter Note * Telephone Encounter - YENNY AKINS - 01/25/2025 11:12 AM EDT Spoke with Kailyn at this time and notified of below. Verbalized understanding. States that today ptwas so short of breath after getting a shower that she almost called the squad. Reports that it wasso extreme that she almost vomited. Pt used her albuterol inhaler and that helped. Will proceed with ECHO tomorrow and has Wellness visit with PCP following. Instructed to proceed to ER if symptoms do continue to increase or any changes. Daughter states that she will. Yenny Akins LPN [facility]03-20-2025 Miscellaneous Notes* Telephone Encounter - YENNY AKINS - 01/25/2025 11:12 AM EDT Spoke with Kailyn at this time and notified of below. Verbalized understanding. States that today ptwas so short of breath after getting a shower that she almost called the squad. Reports that it wasso extreme that she almost vomited. Pt used her albuterol inhaler and that helped. Will proceed with ECHO tomorrow and has Wellness visit with PCP following. Instructed to proceed to ER if symptoms do continue to increase or any changes. Daughter states that she will. Yenny Akins LPN * Telephone Encounter - Max Rodriguez MD - 01/25/2025 9:01 AM EDT Let daughter know stress test was normal. (Copy to Dr. Brent Haines for [facility]) * Telephone Encounter - Orly Richardson LPN - 01/25/2025 7:56 AM EDT Received results of pt's stress test done at [facility] ordered by PCP. Orly Richardson LPN Scan on 01/24/2025 6:15 PM by ProviderGaudencio PA-C: Stress Test documented in this encounterLutheran Hospital03-20-2025 Telephone encounter Note * Telephone Encounter - Max Rodriguez MD - 01/25/2025 9:01 AM EDT Let daughter know stress test was normal. (Copy to Dr. Brent Haines for FYI) [facility]03-20-[facility] Telephone encounter Note* Telephone Encounter - Orly Richardson LPN - 01/25/2025 7:56 AM EDT Received results of pt's stress test done at [facility] ordered by PCP. Orly Richardson LPN Scan on 01/24/2025 6:15 PM by ProviderGaudencio PA-C: Stress Test [facility]03-17-[facility] History of Present illness Narrative* Angela Haines MD - 01/22/2025 12:45 PM EDT Images from the original note were not included. . Respiratory Moro Note Patient name: Anne Marie Garza PCP: Max Rodriguez MD Referring Physician: Same Consultation requested by Dr. Rodriguez for an opinion regarding dyspnea and cough. My final recommendations will be communicated back to the requesting physician by way of shared Medical record or letter to requesting physician via US mail. CC: cough/SOB HPI: Anne Marie Garza 84 year old female former greater than 13-nlzc-tyhe smoker quitting in 2021, nicotine vaping until last year with PMH significant for Graves' disease now hypothyroidism, anxiety,CAD s/p stents, HTN, GERD, HLD, diastolic dysfunction, MATT on CPAP, CKD being referred for evaluation of cough and SOB. She has a longstanding history of progressively worse in the past 6 months. Sheis unable to ambulate around her home without dyspnea. She gets short of breath with eating and showering. Her shortness of breath is so limiting that she has been mainly confined to her home. She denies any chest pain although she did have chest pain with her pulmonary function testing performed today. She has not heard any wheezing. Her cough has been present for 2 months. Cough is mainly dry. No coughing jags. She will cough through the night. She is on ICS/LABA inhaler and albuterol. She finds the albuterol to be most helpful for her symptoms. No acid reflux symptoms and no sinus congestion with postnasal drip. She has been on proton pump inhibitor for many years. Recent upper GI serieswas unremarkable. COPD Assessment Test I never cough 0 1 2 3 4 5 I cough all the time; Score 4 I have no phlegm 0 1 2 3 4 5 My chest is completely full of phlegm; Score 0 My chest does not feel tight at all 0 1 2 3 4 5 My chest chest feels very tight; Score 0 When I walk up a hill or one flight of stairs I am not breathless 0 1 2 3 4 5 When I walk up a hillor one flight or stairs I am very breathless; Score 5 I am not limited doing any activities at home 0 1 2 3 4 5 I am very limited doing activities at home; Score 5 I am confident leaving my home despite my lung condition 0 1 2 3 4 5 I am not at all confident leaving my home because of my lung condition; Score 5 I sleep soundly 0 1 2 3 4 5 don't sleep soundly because of my lungs; Score 0 I have lots of energy 0 1 2 3 4 5 I have no energy at all; Score 5 Total Score: 24 DATA: PFT: Imaging / Diagnostic Studies: Study: Chest 1 View (Portable) Date of Exam: 12/13/23 Exam# [id number] Ordering Dr: Flavio Echavarria MD STUDY: X-RAY CHEST REASON FOR EXAM: Female, 83 years old. Stroke TECHNIQUE: Single AP portable view of the chest. COMPARISON: May 12, 2023 FINDINGS: There are monitoring devices. The lungs are clear and expanded. There is no demonstrated pleural abnormality. Normal size heart. Normal mediastinum and fracisco. Normal visualized pulmonary arteries. There is atherosclerotic calcification of the aortic arch with tortuosity. There are diffuse degenerative changes of the visualized thoracic spine. Normal visualized ribs, clavicles, and shoulders. There is no demonstrated abnormality of the visualized soft tissue structures of the upper abdomen. RAD/Chest 1 View (Portable) IMPRESSION: Degenerative changes, as described above. No demonstrated acute cardiopulmonary process. Review of chest x-ray is unremarkable except for mild cardiomegaly and probable focal atelectasis UGI: FINDINGS: The patient ingested barium. Multiple images of the esophagus, stomach and duodenum were obtained. The esophagus is unremarkable. No evidence of obstruction. No mass lesion is seen. The patient ingested a 12 mm tablet the barium without any difficulty. The stomach and duodenum are unremarkable. No evidence of gastroesophageal reflux. No mass lesion is seen. Atherosclerotic plaque formation of the aortic arch. Degenerative changes of the visualized dorsal spine. IMPRESSION: Unremarkable esophagram and upper GI series. PAST MEDICAL HISTORY Diagnosis Date Acquired hypothyroidism 08/02/2015 Advance directive discussed with patient 01/20/2023 Discussed 01/2023: Up to date Anxiety 01/19/2010 -continue home citalopram Bilateral carotid artery stenosis 12/31/2023 US 12/2023: Rt 20-40% Lt 60-80% BPV (benign positional vertigo) 08/02/2015 Chronic pain of both knees 05/24/2020 Seeing Ortho: Dr. Whiteside Coronary artery 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 08/02/2015 Not seeing cardiology Degenerative disc disease, lumbar 05/26/2018 Elevated hemoglobin (HCC) 04/17/2020 to be rechecked 05/17/2020 Elevated hemoglobin A1c 12/30/2017 Epidermal inclusion cyst 09/09/2019 anterior chest wall excised 08/2019 Essential hypertension 01/26/2017 Graves disease Heart attack (HCC) [facility] stent in heart History of COVID-19 07/08/202205/2022 History of non-ST elevation myocardial infarction (NSTEMI) 01/19/201001/2010 Intradermal nevus 12/30/2014 right inferrior medial breast Keratosis, inflamed seborrheic 12/30/2014 right upper back Left carpal tunnel syndrome 01/04/[address] 12/03/2021 Daughter Truong is DPOA Low vitamin B12 level 04/06/2014 Lumbar radicular pain 05/26/2018 Added automatically from request for surgery [id number] Lump or mass in breast 01/20/2023 Patient [...] 08/04/2015 Trochanteric bursitis of left hip 08/16/2019 ALLERGIES Allergen Reactions Iodine Anaphylaxis Hctz [Thiazides] Other: See Comments Dehydrated, nauseated and week Mary Inhibitors Cough Chantix [Vareniclin* Other: See Comments Bad dreams Lipitor [Atorvastat* Other: See Comments Muscle pains Mucinex [Guaifenesi* Mental Status Change dizziness and confusion Pravachol [Pravasta* Other: See Comments Muscle aches Zanaflex [Tizanidin* Other: See Comments Caused pt to feel jittery all over omeprazole (PRILOSEC) 40 mg capsule Take 1 capsule by mouth two times a day. fluticasone-salmeterol (WIXELA INHUB) 250-50 mcg/dose inhaler Inhale 1 Puff as instructed two timesa day. celecoxib (CELEBREX) 200 mg capsule Take 1 capsule by mouth two times a day. traMADol (ULTRAM) 50 mg tablet Take 1 tablet by mouth every 8 hours as needed for pain for up to 90days. Patient should start on January 04, 2025. albuterol HFA (PROVENTIL HFA, VENTOLIN HFA) 90 mcg/actuation inhaler Inhale 2 Puffs as instructed every 4 hours as needed. levothyroxine (LEVOXYL) 137 mcg tablet Take one tab by mouth once a day Wed-Wed, 1/2 on Wed and none on Wednesday. Take on empty stomach. For Thyroid. amLODIPine (NORVASC) 5 mg tablet Take 1 tablet by mouth once daily. metoprolol succinate ER (TOPROL XL) 100 mg Take 1 tablet by mouth once daily. rosuvastatin (CRESTOR) 5 mg tablet Take 1 tablet by mouth once daily. valsartan (DIOVAN) 320 mg tablet Take 1 tablet by mouth once daily. DULoxetine (CYMBALTA) 30 mg capsule Take 1 capsule by mouth once daily. In place of the Citaloram nitroglycerin sublingual (NITROQUICK) 0.4 mg SL tablet Dissolve 1 tablet under the tongue every 5 minutes as needed. ondansetron orally disintegrating (ZOFRAN ODT) 4 mg disintegrating tablet Take 1 tablet by mouth every 6 hours as needed for nausea/vomiting. aspirin, enteric coated (ASPIRIN, ENTERIC COATED) 81 mg EC tablet Take 81 mg by mouth once daily. 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 OF SYSTEMS: CONSTITUTIONAL: No fevers, chills, nightsweats, unintended weight loss. Fatigue HEENT: Denies nasal congestion/sinus symptoms, problematic allergy problems. Recent sore throat CARDIOVASCULAR: No chest pain, palpitations, orthopnea, PND, edema. PULM: See HPI. GI: No dysphagia/odynophagia, problematic reflux. NEURO: No balance problems, peripheral weakness/paresthesias or numbness of concern. MUSC-SKEL: No joint pain, swelling, or erythema. PSY: No concerns regarding depression, anxiety INTEGUMENTARY: No new skin changes PHYSICAL EXAMINATION: BP 136/62 Pulse 60 Resp 15 Ht 5' 3.8 (1.62m) Wt 176 lb (79.8kg) SpO2 97% BMI 30.38 kg/(m^2). General Appearance: Elderly female, NAD. Skin: Skin color, texture, turgor normal, no suspicious rashes or lesions. Head: Normocephalic, no masses, lesions, tenderness or abnormalities. Eyes: Normal sclera and conjunctiva. Oropharynx: No oral lesions. Neck: No masses or adenopathy. Lungs: Not labored, normal to percussion, no wheezes or crackles. Heart: Regular rate and rhythm, soft systolic murmur left sternal border. Extremities: No significant edema or clubbing. Assessment/Plan: 1. Dyspnea on exertion -Severity of her shortness of breath is not explained by her pulmonary function tests which are actually normal except for minimal small airways obstruction. In light of her cardiac history, dyspnea on exertion and chest pain with pulmonary function testing is most concerning for coronary disease. She has upcoming appointment with cardiology for echocardiogram and stress test. 2. Chronic cough -If her cough was related to small airways obstruction, she should have improvement with inhaled therapy. -Cough would be more consistent with acid reflux disease. She is already on proton pump inhibitor. Antireflux measures recommended -At some point she may need a methacholine challenge testing but this is contraindicated in the face of possible unstable coronary disease -She will continue on her current inhaled therapy for now 3. Former cigarette smoker -Despite her heavy past smoking history, she does not meet criteria for COPD -Continued abstinence -Discussed proper use of Nicorette gum 4. Coronary artery disease -See #1 Angela Haines MD Respiratory [facility] NoteHNO ID: [id number] Author: ANGELA HAINES MD Service: ? Author Type: Physician Type: Progress Notes Filed: 01/22/2025 14:10 Note Text: . Respiratory Moro Note Patient name: Anne Marie Garza PCP: Max Rodriguez MD Referring Physician: Same Consultation requested by Dr. Rodriguez for an opinion regarding dyspnea and cough. My final recommendations will be communicated back to the requesting physician by way of shared Medical record or letter to requesting physician via US mail. CC: cough/SOB HPI: Anne Marie Garza 84 year old female former greater than [id number] smoker quitting in 2021, nicotine vaping until last year with PMH significant for Graves' disease now hypothyroidism, anxiety, CAD s/p stents, HTN, GERD, HLD, diastolic dysfunction, MATT on CPAP, CKD being referred for evaluation of cough and SOB. She has a longstanding history of progressively worse in the past 6 months. She is unable to ambulate around her home without dyspnea. She gets short of breath with eating and showering. Her shortness of breath is so limiting that she has been mainly confined to her home. She denies any chest pain although she did have chest pain with her pulmonary function testing performed today. She has not heard any wheezing. Her cough has been present for 2 months. Cough is mainly dry. No coughing jags. She will cough through the night. She is on ICS/LABA inhaler and albuterol. She finds the albuterol to be most helpful for her symptoms. No acid reflux symptoms and no sinus congestion with postnasal drip. She has been on proton pump inhibitor for many years. Recent upper GI series was unremarkable. COPD Assessment Test I never cough 0 1 2 3 4 5 I cough all the time; Score 4 I have no phlegm 0 1 2 3 4 5 My chest is completely full of phlegm; Score 0 My chest does not feel tight at all 0 1 2 3 4 5 My chest chest feels very tight; Score 0 When I walk up a hill or one flight of stairs I am not breathless 0 1 2 3 4 5 When I walk up a hill or one flight or stairs I am very breathless; Score 5 I am not limited doing any activities at home 0 1 2 3 4 5 I am very limited doing activities at home; Score 5 I am confident leaving my home despite my lung condition 0 1 2 3 4 5 I am not at all confident leaving my home because of my lung condition; Score 5 I sleep soundly 0 1 2 3 4 5 don't sleep soundly because of my lungs; Score 0 I have lots of energy 0 1 2 3 4 5 I have no energy at all; Score 5 Total Score: 24 DATA: PFT: Imaging / Diagnostic Studies: Study: Chest 1 View (Portable) Date of Exam: 12/13/23 Exam# [id number] Ordering Dr: Flavio Echavarria MD STUDY: X-RAY CHEST REASON FOR EXAM: Female, 83 years old. Stroke TECHNIQUE: Single AP portable view of the chest. COMPARISON: May 12, 2023 FINDINGS: There are monitoring devices. The lungs are clear and expanded. There is no demonstrated pleural abnormality. Normal size heart. Normal mediastinum and fracisco. Normal visualized pulmonary arteries. There is atherosclerotic calcification of the aortic arch with tortuosity. There are diffuse degenerative changes of the visualized thoracic spine. Normal visualized ribs, clavicles, and shoulders. There is no demonstrated abnormality of the visualized soft tissue structures of the upper abdomen. RAD/Chest 1 View (Portable) IMPRESSION: Degenerative changes, as described above. No demonstrated acute cardiopulmonary process. Review of chest x-ray is unremarkable except for mild cardiomegaly and probable focal atelectasis UGI: FINDINGS: The patient ingested barium. Multiple images of the esophagus, stomach and duodenum were obtained. The esophagus is unremarkable. No evidence of obstruction. No mass lesion is seen. The patient ingested a 12 mm tablet the barium without any difficulty. The stomach and duodenum are unremarkable. No evidence of gastroesophageal reflux. No mass lesion is seen. Atherosclerotic plaque formation of the aortic arch. Degenerative changes of the visualized dorsal spine. IMPRESSION: Unremarkable esophagram and upper GI series. PAST MEDICAL HISTORY Diagnosis Date Acquired hypothyroidism 08/02/2015 Advance directive discussed with patient 01/20/2023 Discussed 01/2023: Up to date Anxiety 01/19/2010 -continue home citalopram Bilateral carotid artery stenosis 12/31/2023 US 12/2023: Rt 20-40% Lt 60-80% BPV (benign positional vertigo) 08/02/2015 Chronic pain of both knees 05/24/2020 Seeing Ortho: Dr. Whiteside Coronary artery 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 08/02/2015 Not seeing cardiology Degenerative disc disease, lumbar 05/26/2018 Elevated hemoglobin (HCC) 04/17/2020 to be rechecked 05/17/2020 Elevated hemoglobin A1c 12/30/2017 Epidermal inclusion cyst 09/09/2019 anterior chest wall excised 08/2019 Essential hypertension 01/26/2017 Ruslan (more content not included)...[facility]03-17-2025 Note HNO ID: [id number] Author: KENISHA BOWENS RPFT Service: ? Author Type: Respiratory Therapist Type: Progress Notes Filed: 01/22/2025 11:08 Note Text: PULM FUNCTION: Provider: Angela Haines MD Assisting Tech: Kenisha Bowens RPFT Spirometry: 1 [facility] of Present illness Narrative * Kenisha Bowens RPFT - 01/22/2025 11:05 AM EDT PULM FUNCTION: Provider: Angela Haines MD Assisting Tech: Kenisha Bowens RPFT Spirometry: 1 DLCO: 1 documented [facility]25 NoteHNO ID: [id number] Author: MAX RODRIGUEZ MD Service: ? Author Type: Physician Type: Procedures Filed: 01/19/2025 12:49 Note Text: UNIVERSAL PROTOCOL / SAFETY CHECKLIST Procedure to be Performed: bilateral knee injections Sign In: A Moment of CARE was completed. Appropriate PPE (Personal Protective Equipment) worn by all providers involved with the procedure. Special equipment not required. Patient/Surrogate Stated/Verified: Patient name, Date of , Relevant allergies, and The intended procedure Time Out: Relevant labs, photos, and/or imaging studies are not applicable. Intended patient and procedure match the source document(s) (e.g. consent, HANDP, associated studies [imaging, pathology]) match the intended patient and procedure. Consent obtained and matches the intended procedure. Yes. Correct side/site has been marked and visible. Medications required for this procedure are verified. Fire risk assessed and is not applicable. Implants: are not applicable. Sign Out: Specimens not collected. All instruments, equipment, possible retained foreign bodies are accounted for. The post-procedure plan of care has been communicated to the patient or surrogate. Lateral side of the right knee was cleansed with betadine and alcohol. A 22 gauge 1 1/2 needle was inserted into the joint space. Prior to injection aspiration was attempted with no blood return. The medication was then injected without difficulty. Patient tolerated well. Medication: 2% Lido without Epi with 60 mg kenalog. Lateral side of the left knee was cleansed withbetadine and alcohol. A 22 gauge 1 1/2 needle was inserted into the joint space. Prior to injection aspiration was attempted with no blood return. The medication was then injected without difficulty. Patient tolerated well. Medication: 2% Lido without Epi with 60 mg kenalog.[facility] 01-19-2025 Procedure note* Max Rodriguez MD - 01/19/2025 9:35 AM EDT Procedure(s): LARGE JOINT INJECTION/ARTHROCENTESIS Pre-Procedure Diagnose(s): Chronic pain of both knees; Arthritis of both knees Post-Procedure Diagnose(s): Chronic pain of both knees; Arthritis of both knees UNIVERSAL PROTOCOL / SAFETY CHECKLIST Procedure to be Performed: bilateral knee injections Sign In: A Moment of CARE was completed. Appropriate PPE (Personal Protective Equipment) worn by all providers involved with the procedure. Special equipment not required. Patient/Surrogate Stated/Verified: Patient name, Date of , Relevant allergies, and The intended procedure Time Out: Relevant labs, photos, and/or imaging studies are not applicable. Intended patient and procedure match the source document(s) (e.g. consent, H&P, associated studies [imaging, pathology]) match the intended patient and procedure. Consent obtained and matches the intended procedure. Yes. Correct side/site has been marked and visible. Medications required for this procedure are verified. Fire risk assessed and is not applicable. Implants: are not applicable. Sign Out: Specimens not collected. All instruments, equipment, possible retained foreign bodies are accounted for. The post-procedure plan of care has been communicated to the patient or surrogate. Lateral side of the right knee was cleansed with betadine and alcohol. A 22 gauge 1 1/2 needle was inserted into the joint space. Prior to injection aspiration was attempted with no blood return. The medication was then injected without difficulty. Patient tolerated well. Medication: 2% Lido without Epi with 60 mg kenalog. Lateral side of the left knee was cleansed with betadine and alcohol. A 22 gauge 1 1/2 needle wasinserted into the joint space. Prior to injection aspiration was attempted with no blood return. The medication was then injected without difficulty. Patient tolerated well. Medication: 2% Lido without Epi with 60 mg kenalog. [facility]03[facility] Procedure note* Max Rodriguez MD - 01/19/2025 9:35 AM EDTProcedure(s): LARGE JOINT INJECTION/ARTHROCENTESIS Pre-Procedure Diagnose(s): Chronic pain of both knees; Arthritis of both knees Post-Procedure Diagnose(s): Chronic pain of both knees; Arthritis of both knees UNIVERSAL PROTOCOL / SAFETY CHECKLIST Procedure to be Performed: bilateral knee injections Sign In: A Moment of CARE was completed. Appropriate PPE (Personal Protective Equipment) worn by all providers involved with the procedure. Special equipment not required. Patient/Surrogate Stated/Verified: Patient name, Date of , Relevant allergies, and The intended procedure Time Out: Relevant labs, photos, and/or imaging studies are not applicable. Intended patient and procedure match the source document(s) (e.g. consent, H&P, associated studies [imaging, pathology]) match the intended patient and procedure. Consent obtained and matches the intended procedure. Yes. Correct side/site has been marked and visible. Medications required for this procedure are verified. Fire risk assessed and is not applicable. Implants: are not applicable. Sign Out: Specimens not collected. All instruments, equipment, possible retained foreign bodies are accounted for. The post-procedure plan of care has been communicated to the patient or surrogate. Lateral side of the right knee was cleansed with betadine and alcohol. A 22 gauge 1 1/2 needle was inserted into the joint space. Prior to injection aspiration was attempted with no blood return. The medication was then injected without difficulty. Patient tolerated well. Medication: 2% Lido without Epi with 60 mg kenalog. Lateral side of the left knee was cleansed with betadine and alcohol. A 22 gauge 1 1/2 needle wasinserted into the joint space. Prior to injection aspiration was attempted with no blood return. The medication was then injected without difficulty. Patient tolerated well. Medication: 2% Lido without Epi with 60 mg kenalog. [facility]25 NoteHNO ID: [id number] Author: MAX RODRIGUEZ MD Service: ? Author Type: Physician Type: Progress Notes Filed: 01/19/2025 12:49 Note Text: Chief Complaint Patient presents with: Injections: Bilateral knee injection HPI Anne Marie Garza is a 84 year old female who presents here today for bilateral knee injection. Patient here for bilateral knee pain. Does not want surgery and so being managed per steroid injections every 4 months per patient's request. Past medical history, appointments, medications, allergies reviewed. Previous Medical History PAST MEDICAL HISTORY Diagnosis Date Acquired hypothyroidism 08/02/2015 Advance directive discussed with patient 01/20/2023 Discussed 01/2023: Up to date Anxiety 01/19/2010 -continue home citalopram Bilateral carotid artery stenosis 12/31/2023 US 12/2023: Rt 20-40% Lt 60-80% BPV (benign positional vertigo) 08/02/2015 Chronic pain of both knees 05/24/2020 Seeing Ortho: Dr. Whiteside Coronary artery 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 08/02/2015 Not seeing cardiology Degenerative disc disease, lumbar 05/26/2018 Elevated hemoglobin (HCC) 04/17/2020 to be rechecked 05/17/2020 Elevated hemoglobin A1c 12/30/2017 Epidermal inclusion cyst 09/09/2019 anterior chest wall excised 08/2019 Essential hypertension 01/26/2017 GERD without esophagitis 07/08/2022 Graves disease Heart attack (HCC) [facility] stent in heart History of COVID-19 07/08/202205/2022 History of non-ST elevation myocardial infarction (NSTEMI) 01/19/201001/2010 Intradermal nevus 12/30/2014 right inferrior medial breast Keratosis, inflamed seborrheic 12/30/2014 right upper back Left carpal tunnel syndrome 01/04/[address] 12/03/2021 Daughter Truong is DPOA Low vitamin B12 level 04/06/2014 Lumbar radicular pain 05/26/2018 Added automatically from request for surgery [id number] Lump or mass in breast 01/20/2023 Patient [...] Recurrent major depressive disorder, in partial remission ([facility]) 04/14/2016 Severe obstructive sleep apnea AHI 32.5 [...] 2D ECHO (EXEP) 12/21/2019 EF=60%, 1+ TI, AR, AI 2D ECHO (EXEP) 02/17/2021 EF= 60%, [...] Other: See Comments Dehydrated, nauseated and week Mary Inhibitors Cough Chantix [Vareniclin* Other: See Comments Bad dreams Lipitor [Atorvastat* Other: See Comments Muscle pains Mucinex [Guaifenesi* Mental Status Change dizziness and confusion Pravachol [Pravasta* Other: See Comments Muscle aches Zanaflex [Tizanidin* Other: See Comments Caused pt to feel jittery all over Current Medications Current Outpatient Medications on File Prior to Visit Medication Sig cefADROxil (DURICEF) 500 (more content not included)...[facility]03-14-[facility] History of Present illness Narrative* Max Rodriguez MD - 01/19/2025 8:16 AM EDT Chief Complaint Patient presents with: Injections: Bilateral knee injection HPI Anne Marie Garza is a 84 year old female who presents here today for bilateral knee injection. Patient here for bilateral knee pain. Does not want surgery and so being managed per steroid injections every 4 months per patient's request. Past medical history, appointments, medications, allergies reviewed. Previous Medical History PAST MEDICAL HISTORY Diagnosis Date Acquired hypothyroidism 08/02/2015 Advance directive discussed with patient 01/20/2023 Discussed 01/2023: Up to date Anxiety 01/19/2010 -continue home citalopram Bilateral carotid artery stenosis 12/31/2023 US 12/2023: Rt 20-40% Lt 60-80% BPV (benign positional vertigo) 08/02/2015 Chronic pain of both knees 05/24/2020 Seeing Ortho: Dr. Whiteside Coronary artery 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 08/02/2015 Not seeing cardiology Degenerative disc disease, lumbar 05/26/2018 Elevated hemoglobin (HCC) 04/17/2020 to be rechecked 05/17/2020 Elevated hemoglobin A1c 12/30/2017 Epidermal inclusion cyst 09/09/2019 anterior chest wall excised 08/2019 Essential hypertension 01/26/2017 GERD without esophagitis 07/08/2022 Graves disease Heart attack (HCC) [facility] stent in heart History of COVID-19 07/08/202205/2022 History of non-ST elevation myocardial infarction (NSTEMI) 01/19/201001/2010 Intradermal nevus 12/30/2014 right inferrior medial breast Keratosis, inflamed seborrheic 12/30/2014 right upper back Left carpal tunnel syndrome 01/04/[address] 12/03/2021 Daughter Truong is DPOA Low vitamin B12 level 04/06/2014 Lumbar radicular pain 05/26/2018 Added automatically from request for surgery [id number] Lump or mass in breast 01/20/2023 Patient [...] Recurrent major depressive disorder, in partial remission ([facility]) 04/14/2016 Severe obstructive sleep apnea AHI 32.5 [...] 2D ECHO (EXEP) 12/21/2019 EF=60%, 1+ TI, AR, AI 2D ECHO (EXEP) 02/17/2021 EF= 60%, [...] Other: See Comments Dehydrated, nauseated and week Mary Inhibitors Cough Chantix [Vareniclin* Other: See Comments Bad dreams Lipitor [Atorvastat* Other: See Comments Muscle pains Mucinex [Guaifenesi* Mental Status Change dizziness and confusion Pravachol [Pravasta* Other: See Comments Muscle aches Zanaflex [Tizanidin* Other: See Comments Caused pt to feel jittery all over Current Medications Current Outpatient Medications on File Prior to Visit Medication Sig cefADROxil (DURICEF) 500 mg capsule Take 1 capsule by mouth two times a day for 10 days. celecoxib (CELEBREX) 200 mg capsule Take 1 capsule by mouth two times a day. traMADol (ULTRAM) 50 mg tablet Take 1 tablet by mouth every 8 hours as needed for pain for up to 90days. Patient should start on January 04, 2025. albuterol HFA (PROVENTIL HFA, VENTOLIN HFA) 90 mcg/actuation inhaler Inhale 2 Puffs as instructed every 4 hours as needed. levothyroxine (LEVOXYL) 137 mcg tablet Take one tab by mouth once a day Wed-Wed, 1/2 on Wed and none on Wednesday. Take on empty stomach. For Thyroid. amLODIPine (NORVASC) 5 mg tablet Take 1 tablet by mouth once daily. metoprolol succinate ER (TOPROL XL) 100 mg Take 1 tablet by mouth once daily. omeprazole (PRILOSEC) 40 mg capsule Take 1 capsule by mouth two times a day. rosuvastatin (CRESTOR) 5 mg tablet Take 1 tablet by mouth once daily. valsartan (DIOVAN) 320 mg tablet Take 1 tablet by mouth once daily. fluticasone-salmeterol (WIXELA INHUB) 250-50 mcg/dose inhaler Inhale 1 Puff as instructed two timesa day. DULoxetine (CYMBALTA) 30 mg capsule Take 1 capsule by mouth once daily. In place of the Citaloram nitroglycerin sublingual (NITROQUICK) 0.4 mg SL tablet Dissolve 1 tablet under the tongue every 5 minutes as needed. ondansetron orally disintegrating (ZOFRAN ODT) 4 mg disintegrating tablet Take 1 tablet by mouth every 6 hours as needed for nausea/vomiting. aspirin, enteric coated (ASPIRIN, ENTERIC COATED) 81 mg EC tablet Take 81 mg by mouth once daily. No current facility-administered medications on file prior to visit. Social History Social History Tobacco Use Smoking status: Former Current packs/day: 0.00 Types: Cigarettes Quit date: 04/08/2022 Years since quittin.7 Smokeless tobacco: Never Tobacco comments: 3 cigarettes per day Vaping Use Vaping status: current everyday user Substances: Nicotine Devices: Pre-filled or refillable cartridge Substance Use Topics Alcohol use: Yes Comment: occasional glass of wine, once a month Drug use: No Review of Symptoms REVIEW OF SYSTEMS MUSCULOSKELETAL: has bilateral knee pain. EXAM: BP 158/72 Pulse 62 Resp 16 Wt 79.4 kg (175 lb) BMI 31.00 kg/m BP 148/74 Pulse 62 Resp 16 Wt 79.4 kg (175 lb) BMI 31.00 kg/m No BP meds yet this AM. General Appearance: Well appearing, alert, in no acute distress, well-hydrated, well nourished.. Musculoskeletal: knees are arthritic. No erythema or warmth.. Health Maintenance List Advance Directive Discussion due on 11/08/2024 LDL Cholesterol due on 12/21/2024 Covid-19 Vaccine( season) due on 01/30/2025 Diabetes Screening due on 07/20/2027 DTaP,Tdap,Td Vaccine(2 - Td or Tdap) due on 04/22/2033 Bone Density Screening Completed Spirometry Completed Influenza Vaccine Completed RSV Vaccine Completed Shingrix Vaccine Completed Pneumococcal Vaccine: 50+ Completed Colorectal Cancer Screening Discontinued Data reviewed A/P ASSESSMENT/PLAN: 1. Arthritis of both knees - ICD9: 716.96, ICD10: M17.0 (primary diagnosis) - discussed steroid injection and patient in agreement - consent obtained. - see procedure note. 2. Chronic pain of both knees - ICD9: 719.46, 338.29, ICD10: M25.561, M25.562, G89.29 - as above See procedure note: F/u 4 months knee injections. Max Rodriguez MD [facility] Telephone encounter Note * Telephone Encounter - Beau Singh RN - 01/17/2025 8:08 AM EDT Phoned patient and given provider message to daughterKailyn, with verbalized understanding. Daughter agreeable. [facility]03[facility]12[facility] Miscellaneous Notes* Telephone Encounter - Beau Singh RN - 01/17/2025 8:08 AM EDT Phoned patient and given provider message to daughterKailyn, with verbalized understanding. Daughter agreeable. * Telephone Encounter - Max Rodriguez MD - 01/16/2025 1:44 PM EDT Let patient know her upper GI x-ray was unremarkable. Placed order for her to see Dr. Macias for possible scope. * Telephone Encounter - Orly Richardson LPN - 01/16/2025 12:58 PM EDT Received results of pt's upper GI/barium swallow test done at [facility] and ordered by pcp. Orly Richardson LPN Scan on 01/16/2025 11:34 AM by Provider, VIN Rtaliff: X-ray [facility] Telephone encounter Note * Telephone Encounter - Max Rodriguez MD - 01/16/2025 1:44 PM EDT Let patient know her upper GI x-ray was unremarkable. Placed order for her to see Dr. Macias for possible scope. [facility]03-11[facility] Telephone encounter Note* Telephone Encounter - Orly Richardson LPN - 01/16/2025 12:58 PM EDT Received results of pt's upper GI/barium swallow test done at [facility] and ordered by pcp. Orly Richardson LPN Scan on 01/16/2025 11:34 AM by Provider, VIN Ratliff: X-ray [facility]03-11-[facility] Radiology Diagnostic study note [facility] [address] [place] [address] [id number] Upper GI w/BA Swallow MR#: [id number] Acct: [id number] Name: ANNE MARIE GARZA Rep #: [id number] : 1940 F 84 From: Librado Lee MD PCP: Dr. Max Rodriguez MD Status: REG CLI Study:Upper GI w/BA Swallow Date of Exam: 01/16/25 Exam# [id number] Ordering Dr: Miah Rodriguez MD PROCEDURE: UPPER GI W/BA SWALLOW REASON FOR EXAM: DYSPHAGIA TECHNIQUE: FLUOROSCOPIC TIME: 1 minute and 7 seconds minutes FLUOROGRAPHIC IMAGES: 34 COMPARISON: None. FINDINGS: The patient ingested barium. Multiple images of the esophagus, stomach and duodenum were obtained. The esophagus is unremarkable. No evidence of obstruction. No mass lesion is seen. The patient ingested a 12 mm tablet the barium without any difficulty. The stomach and duodenum are unremarkable. No evidence of gastroesophageal reflux. No mass lesion is seen. Atherosclerotic plaque formation of the aortic arch. Degenerative changes of the visualized dorsal spine. RAD/Upper GI w/BA Swallow IMPRESSION: Unremarkable esophagram and upper GI series. Reading Location: [facility] CC: Dr. Max Rodriguez MD ~ [employer]person: Signed [facility]03-05-2025 History of Present illness Narrative* Max Rodriguez MD - 01/10/2025 11:40 AM EST Chief Complaint Patient presents with: Sore Throat Anne Marie Garza is a 84 year old female who presents here today for dry cough/SOB/sore throat; increased in SOB/swelling increased. No chest pain. Chocking on food; all food; has tried smaller bites. Patient has been taking her omeprazole twice a day every day. Has not noted any acid burning up into her throat no acid taste. The sore throat is only on the right side and has been going on for about two weeks. The dysphagia with solids only has been going on for about 2 months. Grand daughter juan diego in her home was treated for step 3 weeks ago the dysphagia is with solids only. The cough is throughout the day and night. No increased nasal discharge or a sensation of post nasal drainage. No nausea or epigastric pain. Is getting very easily winded with trying to ambulate. Has a reduced stamina. No chest pains. No palpitations. Patient saw Pulmonary (Dr Nicholas) but didn't want to do any further testing. Patient also sees Dr. Rasmussen in March 2025. Did walking test on RA and was 92-93% SaO2 ; Pulse at 94-96; no dizziness or lightheadedness; no chest. Just felt weak. At rest 95% on RA 72 pulse Patient with Hx of hypothyroidism, CAD, COPD, HTN, elevated A1c, hyperlipidemia, emphysema, depression, anxiety, obesity, MATT, smoker, low B12, Arthritis with chronic pain especially the knees as well as those reviewed and addressed below and in ROS. Past medical history, appointments, medications, allergies reviewed. Previous Medical History PAST MEDICAL HISTORY Diagnosis Date Acquired hypothyroidism 08/02/2015 Advance directive discussed with patient 01/20/2023 Discussed 01/2023: Up to date Anxiety Anxiety 01/19/2010 -continue home citalopram Bilateral carotid artery stenosis 12/31/2023 US 12/2023: Rt 20-40% Lt 60-80% BPV (benign positional vertigo) 08/02/2015 Chronic pain of both knees 05/24/2020 Seeing Ortho: Dr. Whiteside Coronary artery 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 08/02/2015 Not seeing cardiology Degenerative disc disease, lumbar 05/26/2018 Elevated hemoglobin (HCC) 04/17/2020 to be rechecked 05/17/2020 Elevated hemoglobin A1c 12/30/2017 Epidermal inclusion cyst 09/09/2019 anterior chest wall excised 08/2019 Essential hypertension 01/26/2017 GERD without esophagitis 07/08/2022 Graves disease Heart attack (HCC) [facility] stent in heart History of COVID-19 07/08/202205/2022 History of non-ST elevation myocardial infarction (NSTEMI) 01/19/201001/2010 Intradermal nevus 12/30/2014 right inferrior medial breast Keratosis, inflamed seborrheic 12/30/2014 right upper back Left carpal tunnel syndrome 01/04/[address] 12/03/2021 Daughter Truong is DPOA Low vitamin B12 level 04/06/2014 Lumbar radicular pain 05/26/2018 Added automatically from request for surgery [id number] Lump or mass in breast 01/20/2023 Patient [...] 2D ECHO (EXEP) 12/21/2019 EF=60%, 1+ TI, AR, AI 2D ECHO (EXEP) 02/17/2021 EF= 60%, [...] Other: See Comments Dehydrated, nauseated and week Mary Inhibitors Cough Chantix [Vareniclin* Other: See Comments Bad dreams Lipitor [Atorvastat* Other: See Comments Muscle pains Mucinex [Guaifenesi* Mental Status Change dizziness and confusion Pravachol [Pravasta* Other: See Comments Muscle aches Zanaflex [Tizanidin* Other: See Comments Caused pt to feel jittery all over Current Medications Current Outpatient Medications on File Prior to Visit Medication Sig celecoxib (CELEBREX) 200 mg capsule Take 1 capsule by mouth two times a day. traMADol (ULTRAM) 50 mg tablet Take 1 tablet by mouth every 8 hours as needed for pain for up to 90days. Patient should start on January 04, 2025. albuterol HFA (PROVENTIL HFA, VENTOLIN HFA) 90 mcg/actuation inhaler Inhale 2 Puffs as instructed every 4 hours as needed. levothyroxine (LEVOXYL) 137 mcg tablet Take one tab by mouth once a day Wed-Wed, 1/2 on Wed and none on Wednesday. Take on empty stomach. For Thyroid. amLODIPine (NORVASC) 5 mg tablet Take 1 tablet by mouth once daily. metoprolol succinate ER (TOPROL XL) 100 mg Take 1 tablet by mouth once daily. omeprazole (PRILOSEC) 40 mg capsule Take 1 capsule by mouth two times a day. rosuvastatin (CRESTOR) 5 mg tablet Take 1 tablet by mouth once daily. valsartan (DIOVAN) 320 mg tablet Take 1 tablet by mouth once daily. fluticasone-salmeterol (WIXELA INHUB) 250-50 mcg/dose inhaler Inhale 1 Puff as instructed two timesa day. DULoxetine (CYMBALTA) 30 mg capsule Take 1 capsule by mouth once daily. In place of the Citaloram nitroglycerin sublingual (NITROQUICK) 0.4 mg SL tablet Dissolve 1 tablet under the tongue every 5 minutes as needed. ondansetron orally disintegrating (ZOFRAN ODT) 4 mg disintegrating tablet Take 1 tablet by mouth every 6 hours as needed for nausea/vomiting. aspirin, enteric coated (ASPIRIN, ENTERIC COATED) 81 mg EC tablet Take 81 mg by mouth once daily. No current facility-administered medications on file prior to visit. Social History Social History Tobacco Use Smoking status: Former Current packs/day: 0.00 Types: Cigarettes Quit date: 04/08/2022 Years since quittin.7 Smokeless tobacco: Never Tobacco comments: 3 cigarettes per day Vaping Use Vaping status: current everyday user Substances: Nicotine Devices: Pre-filled or refillable cartridge Substance Use Topics Alcohol use: Yes Comment: occasional glass of wine, once a month Drug use: No Review of Symptoms REVIEW OF SYSTEMS See HPI EXAM: BP 136/70 Pulse 72 Temp 36.7 C (98 F) (Tympanic) Resp 18 Wt 79.4 kg (175 lb) SpO2 92% BMI 31.00 kg/m Last 6 Encounter Wt Readings: Date: Wt: 01/10/2025 79.4 kg (175 lb) 09/19/2024 78.5 kg (173 lb) 08/02/2024 77.1 kg (170 lb) 05/16/2024 76.7 kg (169 lb) 04/28/2024 75.8 kg (167 lb) 03/17/2024 76.2 kg (168 lb) General Appearance: Well appearing, alert, in no acute distress, well-hydrated, well nourished.. Oropharynx: Lips, mucosa, and tongue normal, teeth and gums normal, oropharynx normal. Neck: Supple, no adenopathy; has a slightly firm tender mass on the right side of the neck that could be an enlarged submandibular gland. Lungs: Lungs clear to auscultation. No wheezing, rhonchi, rales.. Heart: RRR without murmur, gallop, or rubs. No ectopy. Abdomen: Normal abdominal exam, Abdomen soft, non-tender. Bowel sounds normal. No masses, organomegaly. Extremities: No deformities, edema, skin discoloration, Good capillary refill. . Peripheral Pulses: Normal. Health Maintenance List Advance Directive Discussion due on 11/08/2024 LDL Cholesterol due on 12/21/2024 Covid-19 Vaccine( season) due on 01/30/2025 Diabetes Screening due on 07/20/2027 DTaP,Tdap,Td Vaccine(2 - Td or Tdap) due on 04/22/2033 Bone Density Screening Completed Spirometry Completed Influenza Vaccine Completed RSV Vaccine Completed Shingrix Vaccine Completed Pneumococcal Vaccine: 50+ Completed Colorectal Cancer Screening Discontinued Data reviewed A/P ASSESSMENT/PLAN: 1. Pharyngitis, unspecified etiology - ICD9: 462, ICD10: J02.9 (primary diagnosis) - since she was exposed to strep will place her on Duricef 500 mg twice a day for 10 days. 2. Neck mass - ICD9: 784.2, ICD10: R22.1 - as above. [facility] re[facility] at [facility] 01[facility]26/[facility]25 - if still present will need CT ww/o contrast. Chart says allergic to iodine but maybe a typo and supposed to be Lodine. Will need allergy testing at some point. However until then will need pre-treated for imaging with contrast. 3. SOB (shortness of breath) - ICD9: 786.05, ICD10: R06.02 Check - ECHO - PERFLUTREN LIPID MICROSPHERES 1.1 MG/ML INJECTION IN NS 10 ML - SODIUM CHLORIDE 0.9 % (FLUSH) INJECTION SYRINGE - CONSULT TO PULMONARY MEDICINE - check nuclear stress test. Due to her arthritis and need for use of a walker she is not a tread mill candidate. 4. HATFIELD (dyspnea on exertion) - ICD9: 786.09, ICD10: R06.09 Check - ECHO - PERFLUTREN LIPID MICROSPHERES 1.1 MG/ML INJECTION IN NS 10 ML - SODIUM CHLORIDE 0.9 % (FLUSH) INJECTION SYRINGE - CONSULT TO PULMONARY MEDICINE - nuclear stress. 5. Decreased stamina - ICD9: 780.79, ICD10: R53.83 Check - ECHO - PERFLUTREN LIPID MICROSPHERES 1.1 MG/ML INJECTION IN NS 10 ML - SODIUM CHLORIDE 0.9 % (FLUSH) INJECTION SYRINGE - nuclear stress test. 6. Coronary artery 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 - ICD9: 414.00, 414.3, ICD10: I25.10, I25.83 Check - ECHO - PERFLUTREN LIPID MICROSPHERES 1.1 MG/ML INJECTION IN NS 10 ML - SODIUM CHLORIDE 0.9 % (FLUSH) INJECTION SYRINGE - nuclear stress test. 7. Pulmonary emphysema, unspecified emphysema type (HCC) - ICD9: 492.8, ICD10: J43.9 - CONSULT TO PULMONARY MEDICINE 8. Dysphagia, unspecified type - ICD9: 787.20, ICD10: R13.10 - will get a swallowing study at [facility]. May need to see GI for EGD and possible dilation. Requested Prescriptions Signed Prescriptions Disp Refills cefADROxil (DURICEF) 500 mg capsule 20 capsule 0 Sig: Take 1 capsule by mouth two times a day for 10 days. F/u in a few weeks. Already set up. I spent a total of 43 minutes on the date of the service which included preparing to see the patient, [id number] patient care, completing clinical documentation, performing a medically appropriate examination, counseling and educating the patient/family/caregiver and ordering medications, tests, or procedures. Max Rodriguez MD [facility]25 NoteHNO ID: [id number] Author: MAX RODRIGUEZ MD Service: ? Author Type: Physician Type: Progress Notes Filed: 01/10/2025 14:09 Note Text: Chief Complaint Patient presents with: Sore Throat Anne Marie Garza is a 84 year old female who presents here today for dry cough/SOB/sore throat; increased in SOB/swelling increased. No chest pain. Chocking on food; all food; has tried smaller bites. Patient has been taking her omeprazole twice a day every day. Has not noted any acid burning up into her throat no acid taste. The sore throat is only on the right side and has been going on for about two weeks. The dysphagia with solids only has been going on for about 2 months. Grand daughter who resides in her home was treated for step 3 weeks ago the dysphagia is with solids only. The cough is throughout the day and night. No increased nasal discharge or a sensation of post nasal drainage. No nausea or epigastric pain. Is getting very easily winded with trying to ambulate. Has a reduced stamina. No chest pains. No palpitations. Patient saw Pulmonary (Dr Nicholas) but didn't want to do any further testing. Patient also sees Dr. Rasmussen in March 2025. Did walking test on RA and was 92-93% SaO2 ; Pulse at 94-96; no dizziness or lightheadedness; no chest. Just felt weak. At rest 95% on RA 72 pulse Patient with Hx of hypothyroidism, CAD, COPD, HTN, elevated A1c, hyperlipidemia, emphysema, depression, anxiety, obesity, MATT, smoker, low B12, Arthritis with chronic pain especially the knees as well as those reviewed and addressed below and in ROS. Past medical history, appointments, medications, allergies reviewed. Previous Medical History PAST MEDICAL HISTORY Diagnosis Date Acquired hypothyroidism 08/02/2015 Advance directive discussed with patient 01/20/2023 Discussed 01/2023: Up to date Anxiety Anxiety 01/19/2010 -continue home citalopram Bilateral carotid artery stenosis 12/31/2023 US 12/2023: Rt 20-40% Lt 60-80% BPV (benign positional vertigo) 08/02/2015 Chronic pain of both knees 05/24/2020 Seeing Ortho: Dr. Whiteside Coronary artery 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 08/02/2015 Not seeing cardiology Degenerative disc disease, lumbar 05/26/2018 Elevated hemoglobin (HCC) 04/17/2020 to be rechecked 05/17/2020 Elevated hemoglobin A1c 12/30/2017 Epidermal inclusion cyst 09/09/2019 anterior chest wall excised 08/2019 Essential hypertension 01/26/2017 GERD without esophagitis 07/08/2022 Graves disease Heart attack (HCC) [facility] stent in heart History of COVID-19 07/08/202205/2022 History of non-ST elevation myocardial infarction (NSTEMI) 01/19/201001/2010 Intradermal nevus 12/30/2014 right inferrior medial breast Keratosis, inflamed seborrheic 12/30/2014 right upper back Left carpal tunnel syndrome 01/04/[address] 12/03/2021 Daughter Truong is DPOA Low vitamin B12 level 04/06/2014 Lumbar radicular pain 05/26/2018 Added automatically from request for surgery [id number] Lump or mass in breast 01/20/2023 Patient [...] 2D ECHO (EXEP) 12/21/2019 EF=60%, 1+ TI, AR, AI 2D ECHO (EXEP) 02/17/2021 EF= 60%, mod santos dysf, ARTHRP ACETBLR/PROX FEM PROSTC AGRFT/ALGRFT Right 12/30/2018 Hip replacement, total CC CORONARY STENT 12/21/2019 MARCOS to mLCx COLONOSCOPY 05/01/2016 serrated adenoma/Repeat 04/2019 COLONOSCOPY COLONOSCOPY AND POLYPECTOMY 09/13/2006 hyperplastic polyp- repeat 2015 CORONARY STENT EA VESSEL 01/2010 ESOPHAGOGASTRODUODENOSCOPY TRANSORAL DIAGNOSTIC 07/02/2021 LEXISCAN STRESS TEST 02/17/2021 negative NEUROPLASTY AND/TRANSPOS MEDIAN NRV CARPAL TUNNE Left (more content not included)...[facility]03-03-2025 Telephone encounter Note* Telephone Encounter - Orly Richardson LPN - 01/08/2025 8:53 AM EST Prescription Refill Information The patient has been identified by name and date of : Yes Caregiver verified no other encounters exist for this prescription request: Yes Caregiver confirmed with patient/requestor that no other refills are due, in the near future, with this provider at this time: Yes The last office visit in the department: 09/19/24 Does the patient have a future office visit with this provider/department: Yes Requested Prescriptions Pending Prescriptions Disp Refills celecoxib (CELEBREX) 200 mg capsule 180 capsule 1 Sig: Take 1 capsule by mouth two times a day. Orly Richardson LPN January 08, 2025 8:53 AM [facility]03-03-[facility] Miscellaneous Notes* Telephone Encounter - Orly Richardson LPN - 01/08/2025 8:53 AM EST Prescription Refill Information The patient has been identified by name and date of : Yes Caregiver verified no other encounters exist for this prescription request: Yes Caregiver confirmed with patient/requestor that no other refills are due, in the near future, with this provider at this time: Yes The last office visit in the department: 09/19/24 Does the patient have a future office visit with this provider/department: Yes Requested Prescriptions Pending Prescriptions Disp Refills celecoxib (CELEBREX) 200 mg capsule 180 capsule 1 Sig: Take 1 capsule by mouth two times a day. Orly Richardson LPN January 08, 2025 8:53 AM documented [facility]02-26-[facility]25 Miscellaneous Notes* Telephone Encounter - Max Rodriguez MD - 01/03/2025 4:36 PM EST The following approved medication requests have been transmitted electronically. Requested Prescriptions Signed Prescriptions Disp Refills traMADol (ULTRAM) 50 mg tablet 270 tablet 0 Sig: Take 1 tablet by mouth every 8 hours as needed for pain for up to 90 days. Patient should start on January 04, 2025. Authorizing Provider: MAX RODRIGUEZ MD PDMP website checked and validated. All prescriptions have been APPROPRIATELY filled. No suspiciousactivity was identified. 01/03/2025 by Max Rodriguez MD * Telephone Encounter - Marbella Orlando LPN - 01/03/2025 8:38 AM EST The patient has been identified by name and date of : Yes Caregiver verified no other encounters exist for this prescription request: Yes Caregiver confirmed with patient/requestor that no other refills are due, in the near future, with this provider at this time: Yes The last office visit in the department: 09/19/2024 Does the patient have a future office visit with this provider/department: Yes 01/19/2025 Requested Prescriptions Pending Prescriptions Disp Refills traMADol (ULTRAM) 50 mg tablet 270 tablet 0 Sig: Take 1 tablet by mouth every 8 hours as needed for pain for up to 90 days. Marbella Orlando LPN January 03, 2025 8:38 AM documented [facility]02-[facility]25 Telephone encounter Note * Telephone Encounter - Max Rodriguez MD - 01/03/2025 4:36 PM EST The following approved medication requests have been transmitted electronically. Requested Prescriptions Signed Prescriptions Disp Refills traMADol (ULTRAM) 50 mg tablet 270 tablet 0 Sig: Take 1 tablet by mouth every 8 hours as needed for pain for up to 90 days. Patient should start on January 04, 2025. Authorizing Provider: MAX RODRIGUEZ MD PDMP website checked and validated. All prescriptions have been APPROPRIATELY filled. No suspiciousactivity was identified. 01/03/2025 by Max Rodriguez MD [facility] Telephone encounter Note* Telephone Encounter - Marbella Orlando LPN - 01/03/2025 8:38 AM EST The patient has been identified by name and date of : Yes Caregiver verified no other encounters exist for this prescription request: Yes Caregiver confirmed with patient/requestor that no other refills are due, in the near future, with this provider at this time: Yes The last office visit in the department: 09/19/2024 Does the patient have a future office visit with this provider/department: Yes 01/19/2025 Requested Prescriptions Pending Prescriptions Disp Refills traMADol (ULTRAM) 50 mg tablet 270 tablet 0 Sig: Take 1 tablet by mouth every 8 hours as needed for pain for up to 90 days. Marbella Orlando LPN January 03, 2025 8:38 AM [facility] Telephone encounter Note* Telephone Encounter - Orly Richardson LPN - 11/27/2024 7:52 AM EST Prescription Refill Information The patient has been identified by name and date of : Yes Caregiver verified no other encounters exist for this prescription request: Yes Caregiver confirmed with patient/requestor that no other refills are due, in the near future, with this provider at this time: Yes The last office visit in the department: 09/19/24 Does the patient have a future office visit with this provider/department: Yes Requested Prescriptions Pending Prescriptions Disp Refills albuterol HFA (PROVENTIL HFA, VENTOLIN HFA) 90 mcg/actuation inhaler 18 g 1 Sig: Inhale 2 Puffs as instructed every 4 hours as needed. Orly Richardson LPN November 27, 2024 7:53 AM [facility]01-20-2025 Miscellaneous Notes* Telephone Encounter - Orly Richardson LPN - 11/27/2024 7:52 AM EST Prescription Refill Information The patient has been identified by name and date of : Yes Caregiver verified no other encounters exist for this prescription request: Yes Caregiver confirmed with patient/requestor that no other refills are due, in the near future, with this provider at this time: Yes The last office visit in the department: 09/19/24 Does the patient have a future office visit with this provider/department: Yes Requested Prescriptions Pending Prescriptions Disp Refills albuterol HFA (PROVENTIL HFA, VENTOLIN HFA) 90 mcg/actuation inhaler 18 g 1 Sig: Inhale 2 Puffs as instructed every 4 hours as needed. Orly Richardson LPN November 27, 2024 7:53 AM [facility] Telephone encounter Note * Telephone Encounter - Orly Richardson LPN - 10/11/2024 11:43 AM EST Pt's daughter notified of results and instructions. She verbalizes understanding. She advises that she has taken over giving pt her medications. She thinks that pt was getting confused and not takingthem correctly. Orly Richardson LPN [facility]12-04-2024 Miscellaneous Notes* Telephone Encounter - Orly Richardson LPN - 10/11/2024 11:43 AM EST Pt's daughter notified of results and instructions. She verbalizes understanding. She advises that she has taken over giving pt her medications. She thinks that pt was getting confused and not takingthem correctly. Orly Richardson LPN * Telephone Encounter - Dora Whitman PA-C - 10/11/2024 11:28 AM EST Tsh is now in normal range. Continue current dosing of thyroid med. Dora Whitman PA-C [facility] Telephone encounter Note * Telephone Encounter - Dora Whitman PA-C - 10/11/2024 11:28 AM EST Tsh is now in normal range. Continue current dosing of thyroid med. Dora Whitman PA-C [facility] Work Phone: [phone] Telephone encounter Note* Telephone Encounter - Lilia Candelaria LPN - 10/09/2024 4:26 PM EST Prescription Refill Information The patient has been identified by name and date of : Yes Caregiver verified no other encounters exist for this prescription request: Yes Caregiver confirmed with patient/requestor that no other refills are due, in the near future, with this provider at this time: Yes The last office visit in the department: 09/19/24 Does the patient have a future office visit with this provider/department: Yes Requested Prescriptions Pending Prescriptions Disp Refills levothyroxine (LEVOXYL) 137 mcg tablet 90 tablet 1 Sig: Take one tab by mouth once a day Wed-Wed, 1/2 on Sat and none on Wednesday. Take on empty stomach. For Thyroid. Lilia Candelaria LPN October 09, 2024 4:28 PM [facility]12-02-2024 Miscellaneous Notes* Telephone Encounter - Lilia Candelaria LPN - 10/09/2024 4:26 PM EST Prescription Refill Information The patient has been identified by name and date of : Yes Caregiver verified no other encounters exist for this prescription request: Yes Caregiver confirmed with patient/requestor that no other refills are due, in the near future, with this provider at this time: Yes The last office visit in the department: 09/19/24 Does the patient have a future office visit with this provider/department: Yes Requested Prescriptions Pending Prescriptions Disp Refills levothyroxine (LEVOXYL) 137 mcg tablet 90 tablet 1 Sig: Take one tab by mouth once a day Wed-Wed, 1/2 on Sat and none on Wednesday. Take on empty stomach. For Thyroid. Lilia Candelaria LPN October 09, 2024 4:28 PM [facility]11-29-[facility]24 Telephone encounter Note * Telephone Encounter - Nicole Zhang APRN.CNP - 10/06/2024 1:59 PM EST PDMP reviewed. Patient requested and refilled prescriptions appropriately. No suspicious activity noted. [facility]11-29-2024 Miscellaneous Notes* Telephone Encounter - Nicole Zhang APRN.CNP - 10/06/2024 1:59 PM EST PDMP reviewed. Patient requested and refilled prescriptions appropriately. No suspicious activity noted. * Telephone Encounter - Christin Lott LPN - 10/06/2024 11:08 AM EST Prescription Refill Information The patient has been identified by name and date of : Yes Caregiver verified no other encounters exist for this prescription request: Yes Caregiver confirmed with patient/requestor that no other refills are due, in the near future, with this provider at this time: Yes The last office visit in the department: 09/19/2024 Does the patient have a future office visit with this provider/department: Yes Requested Prescriptions Pending Prescriptions Disp Refills traMADol (ULTRAM) 50 mg tablet 270 tablet 0 Sig: Take 1 tablet by mouth every 8 hours as needed for pain for up to 90 days. Christin oLtt LPN October 06, 2024 11:09 AM documented in [facility]11-29-2024 Telephone encounter Note * Telephone Encounter - Christin Lott LPN - 10/06/2024 11:08 AM EST Prescription Refill Information The patient has been identified by name and date of : Yes Caregiver verified no other encounters exist for this prescription request: Yes Caregiver confirmed with patient/requestor that no other refills are due, in the near future, with this provider at this time: Yes The last office visit in the department: 09/19/2024 Does the patient have a future office visit with this provider/department: Yes Requested Prescriptions Pending Prescriptions Disp Refills traMADol (ULTRAM) 50 mg tablet 270 tablet 0 Sig: Take 1 tablet by mouth every 8 hours as needed for pain for up to 90 days. Christin Lott LPN October 06, 2024 11:09 AM [facility]11-12-2024 NoteHNO ID: [id number] Author: MAX RODRIGUEZ MD Service: ? Author Type: Physician Type: Procedures Filed: 09/19/2024 18:35 Note Text: UNIVERSAL PROTOCOL / SAFETY CHECKLIST Procedure to be Performed: bilateral knee injections Sign In: A Moment of CARE was completed. Personnel directly involved with the procedure wore the appropriate PPE (Personal Protective Equipment). Patient/Surrogate Stated/Verified: PATIENT VERIFIED(optional for EMERGENT procedures): Patient name, Date of , Relevant allergies, and The intended procedure Time Out Communication: Intended patient and procedure match the source documents. Consent documented and matches the intended procedure. Correct side/site marked and visible. Medications required for procedure verified. Sign Out: SIGN OUT (optional for EMERGENT procedures): Post-procedure follow-up management communicated and Plan of Care Visit completed when applicable. Lateral side of the right knee was cleansed with betadine and alcohol. A 22 gauge 1 1/2 needle was inserted into the joint space. Prior to injection aspiration was attempted with no blood return. The medication was then injected without difficulty. Patient tolerated well. Medication: 60 mg kenalog with 1.5 ml 2% lido without Epi Lateral side of the left knee was cleansed with betadine and alcohol. A 22 gauge 1 1/2 needle was inserted into the joint space. Prior to injection aspiration was attempted with no blood return. The medication was then injected without difficulty. Patient tolerated well. Medication: 60 mg kenalog with 1.5 ml 2% lido without Epi Max Rodriguez [facility]11-12-2024 Procedure note* Max Rodriguez MD - 09/19/2024 10:20 AM ESTProcedure(s): LARGE JOINT INJECTION/ARTHROCENTESIS Pre-Procedure Diagnose(s): Arthritis of both knees; Chronic pain of both knees Post-Procedure Diagnose(s): Arthritis of both knees; Chronic pain of both knees UNIVERSAL PROTOCOL / SAFETY CHECKLIST Procedure to be Performed: bilateral knee injections Sign In: A Moment of CARE was completed. Personnel directly involved with the procedure wore the appropriate PPE (Personal Protective Equipment). Patient/Surrogate Stated/Verified: PATIENT VERIFIED(optional for EMERGENT procedures): Patient name, Date of , Relevant allergies, and The intended procedure Time Out Communication: Intended patient and procedure match the source documents. Consent documented and matches the intended procedure. Correct side/site marked and visible. Medications required for procedure verified. Sign Out: SIGN OUT (optional for EMERGENT procedures): Post-procedure follow-up management communicated and Plan of Care Visit completed when applicable. Lateral side of the right knee was cleansed with betadine and alcohol. A 22 gauge 1 1/2 needle was inserted into the joint space. Prior to injection aspiration was attempted with no blood return. The medication was then injected without difficulty. Patient tolerated well. Medication: 60 mg kenalog with 1.5 ml 2% lido without Epi Lateral side of the left knee was cleansed with betadine and alcohol. A 22 gauge 1 1/2 needle wasinserted into the joint space. Prior to injection aspiration was attempted with no blood return. The medication was then injected without difficulty. Patient tolerated well. Medication: 60 mg kenalog with 1.5 ml 2% lido without Epi Max Rodriguez MD [facility]11-12-2024 Procedure note* Max Rodriguez MD - 09/19/2024 10:20 AM ESTProcedure(s): LARGE JOINT INJECTION/ARTHROCENTESIS Pre-Procedure Diagnose(s): Arthritis of both knees; Chronic pain of both knees Post-Procedure Diagnose(s): Arthritis of both knees; Chronic pain of both knees UNIVERSAL PROTOCOL / SAFETY CHECKLIST Procedure to be Performed: bilateral knee injections Sign In: A Moment of CARE was completed. Personnel directly involved with the procedure wore the appropriate PPE (Personal Protective Equipment). Patient/Surrogate Stated/Verified: PATIENT VERIFIED(optional for EMERGENT procedures): Patient name, Date of , Relevant allergies, and The intended procedure Time Out Communication: Intended patient and procedure match the source documents. Consent documented and matches the intended procedure. Correct side/site marked and visible. Medications required for procedure verified. Sign Out: SIGN OUT (optional for EMERGENT procedures): Post-procedure follow-up management communicated and Plan of Care Visit completed when applicable. Lateral side of the right knee was cleansed with betadine and alcohol. A 22 gauge 1 1/2 needle was inserted into the joint space. Prior to injection aspiration was attempted with no blood return. The medication was then injected without difficulty. Patient tolerated well. Medication: 60 mg kenalog with 1.5 ml 2% lido without Epi Lateral side of the left knee was cleansed with betadine and alcohol. A 22 gauge 1 1/2 needle wasinserted into the joint space. Prior to injection aspiration was attempted with no blood return. The medication was then injected without difficulty. Patient tolerated well. Medication: 60 mg kenalog with 1.5 ml 2% lido without Epi Max Rodriguez MD documented in [facility] encounterL[facility]11-12-2024 History of Present illness Narrative* Max Rodriguez MD - 09/19/2024 9:40 AM EST Chief Complaint Patient presents with: Injections: Bilateral knee injections HPI Anne Marie Garza is a 84 year old female who presents here today for bilateral knee injections . Patient with Hx of hypothyroidism, CAD, COPD, HTN, elevated A1c, hyperlipidemia, emphysema, depression, anxiety, obesity, MATT, smoker, low B12, Arthritis with chronic pain especially the knees as well as those reviewed and addressed below and in ROS. Patient with known Arthritis of both knees and chronic knee pain. Does not want surgery and so being managed per steroid injections every 4 months. Past medical history, appointments, medications, allergies reviewed. Previous Medical History PAST MEDICAL HISTORY Diagnosis Date Acquired hypothyroidism 08/02/2015 Advance directive discussed with patient 01/20/2023 Discussed 01/2023: Up to date Anxiety Anxiety 01/19/2010 -continue home citalopram Bilateral carotid artery stenosis 12/31/2023 US 12/2023: Rt 20-40% Lt 60-80% BPV (benign positional vertigo) 08/02/2015 Chronic pain of both knees 05/24/2020 Seeing Ortho: Dr. Whiteside Coronary artery 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 08/02/2015 Not seeing cardiology Degenerative disc disease, lumbar 05/26/2018 Elevated hemoglobin (HCC) 04/17/2020 to be rechecked 05/17/2020 Elevated hemoglobin A1c 12/30/2017 Epidermal inclusion cyst 09/09/2019 anterior chest wall excised 08/2019 Essential hypertension 01/26/2017 GERD without esophagitis 07/08/2022 Graves disease Heart attack (HCC) [facility] stent in heart History of COVID-19 07/08/202205/2022 History of non-ST elevation myocardial infarction (NSTEMI) 01/19/201001/2010 Intradermal nevus 12/30/2014 right inferrior medial breast Keratosis, inflamed seborrheic 12/30/2014 right upper back Left carpal tunnel syndrome 01/04/[address] 12/03/2021 Daughter Truong is DPOA Low vitamin B12 level 04/06/2014 Lumbar radicular pain 05/26/2018 Added automatically from request for surgery [id number] Lump or mass in breast 01/20/2023 Patient [...] 2D ECHO (EXEP) 12/21/2019 EF=60%, 1+ TI, AR, AI 2D ECHO (EXEP) 02/17/2021 EF= 60%, [...] Other: See Comments Dehydrated, nauseated and week Mary Inhibitors Cough Chantix [Vareniclin* Other: See Comments Bad dreams Lipitor [Atorvastat* Other: See Comments Muscle pains Mucinex [Guaifenesi* Mental Status Change dizziness and confusion Pravachol [Pravasta* Other: See Comments Muscle aches Zanaflex [Tizanidin* Other: See Comments Caused pt to feel jittery all over Current Medications Current Outpatient Medications on File Prior to Visit Medication Sig amLODIPine (NORVASC) 5 mg tablet Take 1 tablet by mouth once daily. metoprolol succinate ER (TOPROL XL) 100 mg Take 1 tablet by mouth once daily. omeprazole (PRILOSEC) 40 mg capsule Take 1 capsule by mouth two times a day. rosuvastatin (CRESTOR) 5 mg tablet Take 1 tablet by mouth once daily. valsartan (DIOVAN) 320 mg tablet Take 1 tablet by mouth once daily. fluticasone-salmeterol (WIXELA INHUB) 250-50 mcg/dose inhaler Inhale 1 Puff as instructed two timesa day. DULoxetine (CYMBALTA) 30 mg capsule Take 1 capsule by mouth once daily. In place of the Citaloram levothyroxine (LEVOXYL) 137 mcg tablet Take one tab by mouth once a day Wed-Wed, 1/2 on Wed and none on Wednesday. Take on empty stomach. For Thyroid. traMADol (ULTRAM) 50 mg tablet Take 1 tablet by mouth every 8 hours as needed for pain for up to 90days. celecoxib (CELEBREX) 200 mg capsule Take 1 capsule by mouth two times a day. nitroglycerin sublingual (NITROQUICK) 0.4 mg SL tablet Dissolve 1 tablet under the tongue every 5 minutes as needed. ondansetron orally disintegrating (ZOFRAN ODT) 4 mg disintegrating tablet Take 1 tablet by mouth every 6 hours as needed for nausea/vomiting. albuterol HFA (PROVENTIL HFA, VENTOLIN HFA) 90 mcg/actuation inhaler Inhale 2 Puffs as instructed every 4 hours as needed. aspirin, enteric coated (ASPIRIN, ENTERIC COATED) 81 mg EC tablet Take 81 mg by mouth once daily. No current facility-administered medications on file prior to visit. Social History Social History Tobacco Use Smoking status: Former Current packs/day: 0.00 Types: Cigarettes Quit date: 04/08/2022 Years since quittin.4 Smokeless tobacco: Never Tobacco comments: 3 cigarettes per day Vaping Use Vaping status: current everyday user Substances: Nicotine Devices: Pre-filled or refillable cartridge Substance Use Topics Alcohol use: Yes Comment: occasional glass of wine, once a month Drug use: No Review of Symptoms REVIEW OF SYSTEMS MUSCULOSKELETAL: has bilateral knee pain. No erythema or skin issues. EXAM: BP 142/80 Pulse 60 Resp 16 Wt 78.5 kg (173 lb) BMI 30.65 kg/m General Appearance: Well appearing, alert, in no acute distress, well-hydrated, well nourished.. Musculoskeletal: knees are arthritic. No erythema or warmth. . Health Maintenance List LDL Cholesterol due on 12/21/2024 Diabetes Screening due on 07/20/2027 DTaP,Tdap,Td Vaccine(2 - Td or Tdap) due on 04/22/2033 Bone Density Screening Completed Spirometry Completed Influenza Vaccine Completed Advance Directive Discussion Completed RSV Vaccine Completed Shingrix Vaccine Completed Covid-19 Vaccine Completed Pneumococcal Vaccine: 65+ Completed Colorectal Cancer Screening Discontinued Data reviewed A/P ASSESSMENT/PLAN: 1. Arthritis of both knees - ICD9: 716.96, ICD10: M17.0 (primary diagnosis) - as per #2 2. Chronic pain of both knees - ICD9: 719.46, 338.29, ICD10: M25.561, M25.562, G89.29 - discussed steroid injection. Patient in agreement. - see Procedure note. - consent obtained. F/u next routine. 4 months for knee injections. Max Rodriguez MD documented in this encounterL[facility]11-12-2024 NoteHNO ID: [id number] Author: MAX RODRIGUEZ MD Service: ? Author Type: Physician Type: Progress Notes Filed: 09/19/2024 18:35 Note Text: Chief Complaint Patient presents with: Injections: Bilateral knee injections HPI Anne Marie Garza is a 84 year old female who presents here today for bilateral knee injections . Patient with Hx of hypothyroidism, CAD, COPD, HTN, elevated A1c, hyperlipidemia, emphysema, depression, anxiety, obesity, MATT, smoker, low B12, Arthritis with chronic pain especially the knees as well as those reviewed and addressed below and in ROS. Patient with known Arthritis of both knees and chronic knee pain. Does not want surgery and so being managed per steroid injections every 4 months. Past medical history, appointments, medications, allergies reviewed. Previous Medical History PAST MEDICAL HISTORY Diagnosis Date Acquired hypothyroidism 08/02/2015 Advance directive discussed with patient 01/20/2023 Discussed 01/2023: Up to date Anxiety Anxiety 01/19/2010 -continue home citalopram Bilateral carotid artery stenosis 12/31/2023 US 12/2023: Rt 20-40% Lt 60-80% BPV (benign positional vertigo) 08/02/2015 Chronic pain of both knees 05/24/2020 Seeing Ortho: Dr. Whiteside Coronary artery 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 08/02/2015 Not seeing cardiology Degenerative disc disease, lumbar 05/26/2018 Elevated hemoglobin (HCC) 04/17/2020 to be rechecked 05/17/2020 Elevated hemoglobin A1c 12/30/2017 Epidermal inclusion cyst 09/09/2019 anterior chest wall excised 08/2019 Essential hypertension 01/26/2017 GERD without esophagitis 07/08/2022 Graves disease Heart attack (HCC) [facility] stent in heart History of COVID-19 07/08/202205/2022 History of non-ST elevation myocardial infarction (NSTEMI) 01/19/201001/2010 Intradermal nevus 12/30/2014 right inferrior medial breast Keratosis, inflamed seborrheic 12/30/2014 right upper back Left carpal tunnel syndrome 01/04/[address] 12/03/2021 Daughter Truong is DPOA Low vitamin B12 level 04/06/2014 Lumbar radicular pain 05/26/2018 Added automatically from request for surgery [id number] Lump or mass in breast 01/20/2023 Patient [...] 2D ECHO (EXEP) 12/21/2019 EF=60%, 1+ TI, AR, AI 2D ECHO (EXEP) 02/17/2021 EF= 60%, [...] Other: See Comments Dehydrated, nauseated and week Mary Inhibitors Cough Chantix [Vareniclin* Other: See Comments Bad dreams Lipitor [Atorvastat* Other: See Comments Muscle pains Mucinex [Guaifenesi* Mental Status Change dizziness a (more content not included)...[facility]11-08-2024 History of Present illness Narrative* CHRIS Pappas - 09/15/2024 1:15 PM EST [facility] CHRIS Pappas Visit Note - 09/15/2024 1:44 PM This note was generated with voice recognition software and may contain errors including spelling, grammar, syntax, and misrecognization of what was dictated. Patient: Anne Marie Garza, , 84 y.o., female PCP: Max Rodriguez MD ALLERGIES: Allergies Allergen Reactions Iodine Anaphylaxis and Angioedema Ticagrelor Shortness of breath Varenicline Other Bad dreams Thiazides Other Dehydrated, nauseated and week Atorvastatin Calcium Other Muscle pains Guaifenesin Hallucinations and Other dizziness and confusion Pravastatin Sodium Other Muscle aches Tizanidine Other Caused pt to feel jittery all over CURRENT MEDICATIONS: Current Outpatient Medications Medication Instructions amLODIPine (NORVASC) 5 mg, Daily RT aspirin 81 mg, Daily RT celecoxib (CELEBREX) 200 mg, 2 times daily citalopram (CeleXA) 40 mg tablet DULoxetine (CYMBALTA) 30 mg, Daily RT fluticasone propion-salmeteroL (Advair Diskus) 250-50 mcg/dose diskus inhaler 1 puff, 2 times daily levothyroxine (Synthroid, Levoxyl) 137 mcg tablet Take one tab by mouth once a day Wed-Wed, 1/2 on Wed and none on Wednesday. Take on empty stomach. For Thyroid. losartan (Cozaar) 100 mg tablet metoprolol succinate XL (TOPROL-XL) 100 mg, Daily RT nitroglycerin (NITROSTAT) 0.4 mg omeprazole (PRILOSEC) 40 mg, 2 times daily rosuvastatin (CRESTOR) 5 mg, Daily RT traMADol (ULTRAM) 50 mg, Every 8 hours PRN valsartan (Diovan) 160 mg tablet valsartan (DIOVAN) 320 mg, Daily RT PAST MEDICAL HX: Patient Active Problem List Diagnosis Gait abnormality Leg weakness, bilateral SURGICAL HX: History reviewed. No pertinent surgical history. FAMILY HX: No pertinent history. SOCIAL HX: has no history on file for tobacco use. CHIEF COMPLAINT: Chief Complaint Patient presents with Mouth Lesions Sore inside bottom lip since last night HISTORY OF PRESENT ILLNESS: The history was obtained from patientSalena Alan is a 84 y.o. female, who presents with a chief complaint of a non-tender, shiny lump inside her lower lip - she first noticed it last night. She reports it is not really tender unless her dentures rub on it, and she has stopped wearing them since she noticed the lump. It has not increased in size, and it is not red. She denies any known injury or precipitating factors, and has never noticed anything like this before. The lump has not drained anything. Denies any fever, chills, body aches, malaise, nausea, vomiting, orother constitutional S/S. Has not tried any OTC medications or conservative measures for managementof symptoms. Denies any other complaints. REVIEW OF SYSTEMS: 10 systems reviewed negative with exception of history of present illness as listed above. TODAY'S VITALS: BP 127/69 (BP Location: Left arm, Patient Position: Sitting, BP Cuff Size: Adult) Pulse 61 Temp 37 C (98.6 F) (Temporal) Resp 14 Ht 1.626 m (5' 4) Wt 77.1 kg (170 lb) SpO2 96% BMI 29.18 kg/m PHYSICAL EXAMINATION: General: Pleasant, elderly female, alert and oriented, in no acute distress. Sitting comfortably onexam table. Eyes: Non-icteric; conjunctiva clear. HENT: Normocephalic. Nasal mucosa unremarkable; no audible nasal congestion or sinus tenderness. Mucous membranes moist. No other oral lesions or lumps; posterior pharynx unremarkable. Able to swallow/manage oral secretions without difficulty. Has a bb-sized, non-tender, smooth, round, firm, cyst-like lesion noted to lower mandibular vestibule. Neck: Supple; No palpable lymphadenopathy bilat. Respiratory: Respirations are easy and non-labored, with normal rate. Symmetrical chest wall expansion. Lungs are clear to auscultation - no wheezing, rhonchi, or rales. Cardiovascular: Normal rate, Regular rhythm. Normal S1S2. No m/r/g. Integumentary: [place], warm, dry, and Intact. Normal skin turgor; no rashes appreciated. Good pulses/perfusion. Neurologic: Alert, Oriented, Sensory and motor function grossly intact for age. Cognition and Speech: Oriented; Speech clear and coherent Psychiatric: Cooperative, Appropriate mood & affect. Medical Decision Making LABORATORY or RADIOLOGICAL IMAGING ORDERS/RESULTS: None IMPRESSION/PLAN: Course: Worsening; stable 1. Oral mucocele (Primary) Sxs/exam consistent with oral mucocele, although reviewed other potential etiologies. No red flags on exam. Discussed dx and expectations for resolution - these typically resolve without treatment, although if they persist or become bothersome, may need to consult dentist/oral surgeon for further intervention. Encouraged to avoid dentures until resolved, as this could be irritating to the site. Should avoid picking at the area, as trauma to the area can precipitate the problem. Encouraged warm compresses and gentle massage to help with spontaneous rupture. Reviewed red flags to watch for. Advised to follow-up with primary care provider in 3-5 days for any increase in severity of symptoms or sooner if any additional concerns develop (fever, malaise, streaking, increased swelling/redness/induration/pain, etc). Patient agreed with plan of care; questions were encouraged and answered. CHRIS Pappas Advanced Practice Provider [facility] documented in this encounterProv[facility] Hospital Work Phone: [phone]) 235-704509-25-2024 Instructions* Patient Instructions* Max Rodriguez MD - 08/02/2024 9:12 AM EDT Please get labs and urine test done on or after 01/13/2024 prior to your next visit. documented in [facility]24 History of Present illness Narrative* Max Rodriguez MD - 08/02/2024 8:40 AM EDT Chief Complaint Patient presents with: F/U 6 months HPI Anne Marie Garza is a 84 year old female who presents here today for 6 month follow up. Patient with Hx of hypothyroidism, CAD, COPD, HTN, elevated A1c, hyperlipidemia, emphysema, depression, anxiety, obesity, MTAT, smoker, low B12, Arthritis with chronic pain especially the knees as well as those reviewed and addressed below and in ROS. Patient sees Cardiology last visit 01/2024 Patient is no longer seeing Pulmonary, noted at last visit with us in January. Patient has been doing pretty good. Has not had any issues with the change to her valsartan dose. Only concern is she has been picking at her scalp and has developed a few sores. Not itchy. Thinks it's her anxiety. Past medical history, appointments, medications, allergies reviewed. Previous Medical History PAST MEDICAL HISTORY Diagnosis Date Acquired hypothyroidism 08/02/2015 Advance directive discussed with patient 01/20/2023 Discussed 01/2023: Up to date Anxiety Anxiety 01/19/2010 -continue home citalopram Bilateral carotid artery stenosis 12/31/2023 US 12/2023: Rt 20-40% Lt 60-80% BPV (benign positional vertigo) 08/02/2015 Chronic pain of both knees 05/24/2020 Seeing Ortho: Dr. Whiteside Coronary artery 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 08/02/2015 Not seeing cardiology Degenerative disc disease, lumbar 05/26/2018 Elevated hemoglobin (HCC) 04/17/2020 to be rechecked 05/17/2020 Elevated hemoglobin A1c 12/30/2017 Epidermal inclusion cyst 09/09/2019 anterior chest wall excised 08/2019 Essential hypertension 01/26/2017 GERD without esophagitis 07/08/2022 Graves disease Heart attack (HCC) [facility] stent in heart History of COVID-19 07/08/202205/2022 History of non-ST elevation myocardial infarction (NSTEMI) 01/19/201001/2010 Intradermal nevus 12/30/2014 right inferrior medial breast Keratosis, inflamed seborrheic 12/30/2014 right upper back Left carpal tunnel syndrome 01/04/[address] 12/03/2021 Daughter Truong is DPOA Low vitamin B12 level 04/06/2014 Lumbar radicular pain 05/26/2018 Added automatically from request for surgery [id number] Lump or mass in breast 01/20/2023 Patient [...] 2D ECHO (EXEP) 12/21/2019 EF=60%, 1+ TI, AR, AI 2D ECHO (EXEP) 02/17/2021 EF= 60%, [...] Other: See Comments Dehydrated, nauseated and week Mary Inhibitors Cough Chantix [Vareniclin* Other: See Comments Bad dreams Lipitor [Atorvastat* Other: See Comments Muscle pains Mucinex [Guaifenesi* Mental Status Change dizziness and confusion Pravachol [Pravasta* Other: See Comments Muscle aches Zanaflex [Tizanidin* Other: See Comments Caused pt to feel jittery all over Current Medications Current Outpatient Medications on File Prior to Visit Medication Sig levothyroxine (LEVOXYL) 137 mcg tablet Take one tab by mouth once a day Wed-Wed, 1/2 on Wed and none on Wednesday. Take on empty stomach. For Thyroid. traMADol (ULTRAM) 50 mg tablet Take 1 tablet by mouth every 8 hours as needed for pain for up to 90days. valsartan (DIOVAN) 320 mg tablet Take 1 tablet by mouth once daily. celecoxib (CELEBREX) 200 mg capsule Take 1 capsule by mouth two times a day. metoprolol succinate ER (TOPROL XL) 100 mg Take 1 tablet by mouth once daily. citalopram (CELEXA) 40 mg tablet Take 1 tablet by mouth once daily. omeprazole (PRILOSEC) 40 mg capsule Take 1 capsule by mouth two times a day. rosuvastatin (CRESTOR) 5 mg tablet Take 1 tablet by mouth once daily. amLODIPine (NORVASC) 5 mg tablet Take 1 tablet by mouth once daily. nitroglycerin sublingual (NITROQUICK) 0.4 mg SL tablet Dissolve 1 tablet under the tongue every 5 minutes as needed. ondansetron orally disintegrating (ZOFRAN ODT) 4 mg disintegrating tablet Take 1 tablet by mouth every 6 hours as needed for nausea/vomiting. albuterol HFA (PROVENTIL HFA, VENTOLIN HFA) 90 mcg/actuation inhaler Inhale 2 Puffs as instructed every 4 hours as needed. aspirin, enteric coated (ASPIRIN, ENTERIC COATED) 81 mg EC tablet Take 81 mg by mouth once daily. No current facility-administered medications on file prior to visit. Social History Social History Tobacco Use Smoking status: Former Current packs/day: 0.00 Types: Cigarettes Quit date: 04/08/2022 Years since quittin.3 Smokeless tobacco: Never Tobacco comments: 3 cigarettes per day Vaping Use Vaping status: current everyday user Substances: Nicotine Devices: Pre-filled or refillable cartridge Substance Use Topics Alcohol use: Yes Comment: occasional glass of wine, once a month Drug use: No Review of Symptoms REVIEW OF SYSTEMS GENERAL: No weight loss, malaise or fevers RESPIRATORY: Negative for cough, hemoptysis, wheezing, continues to have increased dyspnea or shortness of breath but will not see Pulmonary. CARDIOVASCULAR: Negative for chest pain, leg swelling, hypertension, CHF or palpitations GI: No nausea, vomiting, or diarrhea and No heartburn or reflux symptoms PSYCH: Negative for sleep disturbance, mood disorder and recent psychosocial stressors. ENDOCRINE: Negative for cold or heat intolerance, polyuria, polydipsia and goiter NEURO: No history of headaches, syncope, paralysis, seizures or tremors Musc: having pain in the right lumbar SI joint region. EXAM: BP 126/60 (BP Site: Right Arm, BP Position: Sitting, BP Cuff Size: Regular Adult) Pulse 60 Resp16 Wt 77.1 kg (170 lb) BMI 30.11 kg/m Last 4 Encounter Wt Readings: Date: Wt: 08/02/2024 77.1 kg (170 lb) 05/16/2024 76.7 kg (169 lb) 04/28/2024 75.8 kg (167 lb) 03/17/2024 76.2 kg (168 lb) General Appearance: Well appearing, alert, in no acute distress, well-hydrated, well nourished. andOverweight. Neck: Supple, no adenopathy; thyroid symmetric, normal size, no bruits. Lungs: Lungs clear to auscultation. No wheezing, rhonchi, rales.. Heart: RRR without murmur, gallop, or rubs. No ectopy. Abdomen: Normal abdominal exam, Abdomen soft, non-tender. Bowel sounds normal. No masses, organomegaly. Extremities: No deformities, edema, skin discoloration, clubbing or cyanosis. Good capillary refill. . Peripheral Pulses: Normal. Neurologic: Gait normal. Reflexes normal and symmetric. Sensation grossly intact.. Skin: has two scratched areas on the left scalp. No erythema of signs of infection. No bald areas. Health Maintenance List Covid-19 Vaccine(2023- season) due on 07/09/2024 Influenza Vaccine(1) due on 07/09/2024 LDL Cholesterol due on 12/21/2024 Diabetes Screening due on 07/20/2027 DTaP,Tdap,Td Vaccine(2 - Td or Tdap) due on 04/22/2033 Bone Density Screening Completed Spirometry Completed Advance Directive Discussion Completed RSV Vaccine Completed Shingrix Vaccine Completed Pneumococcal Vaccine: 65+ Completed Colorectal Cancer Screening Discontinued Data reviewed Latest Ref Rng 12/21/2023 07/20/2024 WBC 3.70 - 11.00 k/uL 9.37 RBC 3.90 - 5.20 m/uL 4.82 Hemoglobin 11.5 - 15.5 g/dL 13.9 Hematocrit 36.0 - 46.0 % 43.8 MCV 80.0 - 100.0 fL 90.9 MCH 26.0 - 34.0 pg 28.8 MCHC 30.5 - 36.0 g/dL 31.7 RDW-CV 11.5 - 15.0 % 14.4 Platelet Count 150 - 400 k/uL 278 MPV 9.0 - 12.7 fL 10.8 Neut% % 65.3 Abs Neut (ANC) 1.45 - 7.50 k/uL 6.11 Lymph% % 22.2 Abs Lymph 1.00 - 4.00 k/uL 2.08 Montague% % 6.7 Abs Montague <0.87 k/uL 0.63 Eosin% % 5.0 Abs Eosin <0.46 k/uL 0.47 (H) Baso% % 0.6 Abs Baso <0.11 k/uL 0.06 Immature Gran % % 0.2 IMMATURE GRANS (ABS) <0.10 k/uL <0.03 NRBC /100 WBC 0.0 Absolute nRBC <0.01 k/uL <0.01 DTYPE Auto Color Yellow Yellow Clarity Clear Clear Glucose, Urine Negative Negative Bilirubin, Urine Negative Negative Ketones, Urine Negative Trace ! Specific Amado, Ur 1.005 - 1.030 1.025 Hemoglobin/Blood,Ur Negative Negative pH, Urine <8.5 6.5 Protein, Urine Negative 1+ ! Urobilinogen 0.2-1.0 EU/dL 1.0 EU/dL Nitrites Negative Negative Leukest Negative Negative WBC, Urine 0-5 /HPF 0-5 /HPF RBC, Urine 0-2 /HPF 0-2 /HPF Bacteria Negative /HPF Negative Epithelial Cells /HPF Moderate Hyaline Cast 0 /LPF 0 /LPF Protein, Total 6.3 - 8.0 g/dL 6.8 Albumin 3.9 - 4.9 g/dL 4.0 Calcium 8.5 - 10.2 mg/dL 9.0 9.6 Bilirubin, Total 0.2 - 1.3 mg/dL 0.4 Alkaline Phosphatase 34 - 123 U/L 51 AST 13 - 35 U/L 17 ALT 7 - 38 U/L 10 Glucose 74 - 99 mg/dL 91 110 (H) BUN 7 - 21 mg/dL 23 (H) 38 (H) Creatinine 0.58 - 0.96 mg/dL 1.12 (H) 1.33 (H) Sodium 136 - 144 mmol/L 139 136 Potassium 3.7 - 5.1 mmol/L 5.3 (H) 5.1 Chloride 98 - 107 mmol/L 101 100 CO2 22 - 30 mmol/L 28 24 Anion Gap 8 - 15 mmol/L 10 12 eGFR >=60 mL/min/1.73m 49 (L) 40 (L) Total Cholesterol, Nonfasting <200 mg/dL 141 Triglycerides, Nonfasting <150 mg/dL 91 HDL Cholesterol, Nonfasting >39 mg/dL 52 LDL Cholesterol, Nonfasting <100 mg/dL 71 Non HDL Cholesterol, Nonfasting <130 mg/dL 89 VLDL Cholesterol, Nonfasting <30 mg/dL 18 Total Chol/HDL Ratio, Nonfasting <5.10 mg/dL 2.71 LDL/HDL Ratio, Nonfasting <2.54 mg/dL 1.37 Hemoglobin A1C 4.3 - 5.6 % 5.8 (H) 5.7 (H) Estimated Average Glucose mg/dL 120 117 Vitamin B12 232 - 1,245 pg/mL 371 279 TSH 0.270 - 4.200 mIU/L 0.644 0.123 (L) Magnesium 1.7 - 2.3 mg/dL 2.0 A/P ASSESSMENT/PLAN: 1. Mixed hyperlipidemia - ICD9: 272.2, ICD10: E78.2 (primary diagnosis) - Controlled - Continue current medications - Counseled on healthy diet and regular exercise - Discussed need for and benefit of weight loss. BMI 30.11 kg/(m^2) 2. Encounter for immunization - ICD9: V03.89, ICD10: Z23 - INFLUENZA VACCINE, PRSV FREE, AGE 65+ YR, HIGH DOSE, TRIVALENT (FLUZONE HIGH-DOSE) 3. Essential hypertension - ICD9: 401.9, ICD10: I10 - Controlled - Continue current medications - Recommend home blood pressure monitoring, to bring results to next visit - Encouraged sodium restriction, DASH or Mediterranean diet - Recommend regular aerobic exercise - Discussed need for and benefit of weight loss. BMI 30.11 kg/(m^2) - VALSARTAN 320 MG TABLET 4. Elevated hemoglobin A1c - ICD9: 790.29, ICD10: R73.09 - improved with diet. 5. Acquired hypothyroidism - ICD9: 244.9, ICD10: E03.9 - Instructed patient on importance of taking on an empty stomach either first thing in the morning or at bedtime. - continue current dose of Synthroid which was recently changes. Patient to get repeat TSH in 2 months. 6. GERD without esophagitis - ICD9: 530.81, ICD10: K21.9 - Continue treatment with Prilosec 40 mg BID 7. Elevated hemoglobin (HCC) - ICD9: 282.7, ICD10: D58.2 - lab in Dec was normal. 8. Coronary artery 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 - ICD9: 414.00, 414.3, ICD10: I25.10, I25.83 - clinically stable no changes and managed per cardio. 9. Bilateral carotid artery stenosis - ICD9: 433.10, 433.30, ICD10: I65.23 - cont current Tx. 10. Pulmonary emphysema, unspecified emphysema type (HCC) - ICD9: 492.8, ICD10: J43.9 - will start Wixela 250/50 one puff twice a day. Advised on use. 11. Stage 3a chronic kidney disease (HCC) - ICD9: 585.3, ICD10: N18.31 - eGFR: 40 Worsening - Counseled on avoiding NSAIDs, adequate hydration - ACEi/ARB prescribed: Yes - advised patient to increased her daily water intake. 12. Recurrent major depressive disorder, in partial remission (HCC) - ICD9: 296.35, ICD10: F33.41 - will stop the celexa and change to cymbalta 30 mg a day. Will see if this stops the scalp picking. 13. Anxiety - ICD9: 300.00, ICD10: F41.9 - as per #12 to help improve he anxiety control. 14. Low vitamin B12 level - ICD9: 790.6, ICD10: R79.89 - cont replacement 15. Pain in right hip - ICD9: 719.45, ICD10: M25.551 - CONSULT TO PHYSICAL THERAPY 16. Right lumbar pain - ICD9: 724.2, ICD10: M54.50 - CONSULT TO PHYSICAL THERAPY 17. Osteoarthritis, unspecified osteoarthritis type, unspecified site - ICD9: 715.90, ICD10: M19.90 - continue tramadol for management PDMP website checked and validated. All prescriptions have been APPROPRIATELY filled. No suspiciousactivity was identified. 08/02/2024 by Max Rodriguez MD Requested Prescriptions Signed Prescriptions Disp Refills amLODIPine (NORVASC) 5 mg tablet 90 tablet 1 Sig: Take 1 tablet by mouth once daily. metoprolol succinate ER (TOPROL XL) 100 mg 90 tablet 1 Sig: Take 1 tablet by mouth once daily. omeprazole (PRILOSEC) 40 mg capsule 180 capsule 1 Sig: Take 1 capsule by mouth two times a day. rosuvastatin (CRESTOR) 5 mg tablet 90 tablet 1 Sig: Take 1 tablet by mouth once daily. valsartan (DIOVAN) 320 mg tablet 90 tablet 1 Sig: Take 1 tablet by mouth once daily. fluticasone-salmeterol (WIXELA INHUB) 250-50 mcg/dose inhaler 3 Each 1 Sig: Inhale 1 Puff as instructed two times a day. DULoxetine (CYMBALTA) 30 mg capsule 90 capsule 1 Sig: Take 1 capsule by mouth once daily. In place of the Citaloram F/u 6 months medicare wellness. Check CMP, Lipid, UA, A1c, TSH, Mg, B12, CBC Max Rodriguez MD documented in this encounterL[facility]09-25-[facility]24 NoteHNO ID: [id number] Author: MAX RODRIGUEZ MD Service: ? Author Type: Physician Type: Progress Notes Filed: 08/02/2024 12:27 Note Text: Chief Complaint Patient presents with: F/U 6 months HPI Anne Marie Garza is a 84 year old female who presents here today for 6 month follow up. Patient with Hx of hypothyroidism, CAD, COPD, HTN, elevated A1c, hyperlipidemia, emphysema, depression, anxiety, obesity, MATT, smoker, low B12, Arthritis with chronic pain especially the knees as well as those reviewed and addressed below and in ROS. Patient sees Cardiology last visit 01/2024 Patient is no longer seeing Pulmonary, noted at last visit with us in January. Patient has been doing pretty good. Has not had any issues with the change to her valsartan dose. Only concern is she has been picking at her scalp and has developed a few sores. Not itchy. Thinks it's her anxiety. Past medical history, appointments, medications, allergies reviewed. Previous Medical History PAST MEDICAL HISTORY Diagnosis Date Acquired hypothyroidism 08/02/2015 Advance directive discussed with patient 01/20/2023 Discussed 01/2023: Up to date Anxiety Anxiety 01/19/2010 -continue home citalopram Bilateral carotid artery stenosis 12/31/2023 US 12/2023: Rt 20-40% Lt 60-80% BPV (benign positional vertigo) 08/02/2015 Chronic pain of both knees 05/24/2020 Seeing Ortho: Dr. Whiteside Coronary artery 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 08/02/2015 Not seeing cardiology Degenerative disc disease, lumbar 05/26/2018 Elevated hemoglobin (HCC) 04/17/2020 to be rechecked 05/17/2020 Elevated hemoglobin A1c 12/30/2017 Epidermal inclusion cyst 09/09/2019 anterior chest wall excised 08/2019 Essential hypertension 01/26/2017 GERD without esophagitis 07/08/2022 Graves disease Heart attack (HCC) [facility] stent in heart History of COVID-19 07/08/202205/2022 History of non-ST elevation myocardial infarction (NSTEMI) 01/19/201001/2010 Intradermal nevus 12/30/2014 right inferrior medial breast Keratosis, inflamed seborrheic 12/30/2014 right upper back Left carpal tunnel syndrome 01/04/[address] 12/03/2021 Daughter Truong is DPOA Low vitamin B12 level 04/06/2014 Lumbar radicular pain 05/26/2018 Added automatically from request for surgery [id number] Lump or mass in breast 01/20/2023 Patient [...] 2D ECHO (EXEP) 12/21/2019 EF=60%, 1+ TI, AR, AI 2D ECHO (EXEP) 02/17/2021 EF= 60%, [...] Other: See Comments Dehydrated, nauseated and week Mary Inhibitors Cough Chantix (more content not included)...[facility]09-16-2024 Telephone encounter Note* Telephone Encounter - Katherin Schmidt MA - 07/24/2024 9:33 AM EDT Spoke with Daughter Kailyn and gave results and instructions. She voiced understanding. Reminded of appointment time and date. Katherin Schmidt MA [facility]09-16-[facility]24 Miscellaneous Notes* Telephone Encounter - Katherin Schmidt MA - 07/24/2024 9:33 AM EDT Spoke with Daughter Kailyn and gave results and instructions. She voiced understanding. Reminded of appointment time and date. Katherin Schmidt MA * Telephone Encounter - Max Rodriguez MD - 07/23/2024 12:14 PM EDT Let daughter know Pat's thyroid lab shows she is getting too much levothyroxine. Advise her to change the dosing of the levothyroxine 137 mcg to one a day Wed- Wed, 1/2 on Sat and none on Wednesday. Order placed to repeat in 2 months. Will review other labs at appt. documented in this encounterLuther[facility] Hospital09-15-2024 Telephone encounter Note * Telephone Encounter - Max Rodriguez MD - 07/23/2024 12:14 PM EDT Let daughter know Pat's thyroid lab shows she is getting too much levothyroxine. Advise her to change the dosing of the levothyroxine 137 mcg to one a day Wed- Wed, 1/2 on Sat and none on Wednesday. Order placed to repeat in 2 months. Will review other labs at appt. [facility] Telephone encounter Note* Telephone Encounter - Dora Whitman PA-C - 07/07/2024 10:09 AM EDT The following approved medication requests have been transmitted electronically. Requested Prescriptions Signed Prescriptions Disp Refills traMADol (ULTRAM) 50 mg tablet 270 tablet 0 Sig: Take 1 tablet by mouth every 8 hours as needed for pain for up to 90 days. Authorizing Provider: DORA WHITMAN PA-C [facility]-30-[facility] Miscellaneous Notes* Telephone Encounter - Dora Whitman PA-C - 07/07/2024 10:09 AM EDT The following approved medication requests have been transmitted electronically. Requested Prescriptions Signed Prescriptions Disp Refills traMADol (ULTRAM) 50 mg tablet 270 tablet 0 Sig: Take 1 tablet by mouth every 8 hours as needed for pain for up to 90 days. Authorizing Provider: DORA WHITMAN PA-C * Telephone Encounter - Katherin Schmidt MA - 07/07/2024 8:37 AM EDT Prescription Refill Information The patient has been identified by name and date of : Yes Caregiver verified no other encounters exist for this prescription request: Yes Caregiver confirmed with patient/requestor that no other refills are due, in the near future, with this provider at this time: Yes The last office visit in the department: 04/2024 Does the patient have a future office visit with this provider/department: Yes 09/2024 Last refill: 04/11/2024 Requested Prescriptions Pending Prescriptions Disp Refills traMADol (ULTRAM) 50 mg tablet 270 tablet 0 Sig: Take 1 tablet by mouth every 8 hours as needed for pain for up to 90 days. Katherin Schmidt MA July 07, 2024 8:38 AM documented in this encounterLuther[facility] Hospital08-30-2024 Telephone encounter Note * Telephone Encounter - Katherin Schmidt MA - 07/07/2024 8:37 AM EDT Prescription Refill Information The patient has been identified by name and date of : Yes Caregiver verified no other encounters exist for this prescription request: Yes Caregiver confirmed with patient/requestor that no other refills are due, in the near future, with this provider at this time: Yes The last office visit in the department: 04/2024 Does the patient have a future office visit with this provider/department: Yes 09/2024 Last refill: 04/11/2024 Requested Prescriptions Pending Prescriptions Disp Refills traMADol (ULTRAM) 50 mg tablet 270 tablet 0 Sig: Take 1 tablet by mouth every 8 hours as needed for pain for up to 90 days. Katherin Schmidt MA July 07, 2024 8:38 AM [facility] Procedure note* Max Rodriguez MD - 05/16/2024 7:00 PM EDT UNIVERSAL PROTOCOL / SAFETY CHECKLIST Procedure to be Performed: bilateral steroid knee injections Sign In: A Moment of CARE was completed. Personnel directly involved with the procedure wore the appropriate PPE (Personal Protective Equipment). Patient/Surrogate Stated/Verified: PATIENT VERIFIED(optional for EMERGENT procedures): Patient name, Date of , Relevant allergies, and The intended procedure Time Out Communication: Intended patient and procedure match the source documents. Consent documented and matches the intended procedure. Correct side/site marked and visible. Medications required for procedure verified. Sign Out: SIGN OUT (optional for EMERGENT procedures): Post-procedure follow-up management communicated and Plan of Care Visit completed when applicable. Lateral side of the right knee was cleansed with betadine and alcohol. A 22 gauge 1 1/2 needle was inserted into the joint space. Prior to injection aspiration was attempted with no blood return. The medication was then injected without difficulty. Patient tolerated well. Medication: 1.5 ml of 2% Lido without Epi with 60 mg of kenalog. Lateral side of the left knee was cleansed with betadine and alcohol. A 22 gauge 1 1/2 needle wasinserted into the joint space. Prior to injection aspiration was attempted with no blood return. The medication was then injected without difficulty. Patient tolerated well. Medication: 1.5 ml of 2% Lido without Epi with 60 mg of kenalog. Max Rodriguez MD [facility]07-[facility] Procedure note* Max Rodriguez MD - 05/16/2024 7:00 PM EDT UNIVERSAL PROTOCOL / SAFETY CHECKLIST Procedure to be Performed: bilateral steroid knee injections Sign In: A Moment of CARE was completed. Personnel directly involved with the procedure wore the appropriate PPE (Personal Protective Equipment). Patient/Surrogate Stated/Verified: PATIENT VERIFIED(optional for EMERGENT procedures): Patient name, Date of , Relevant allergies, and The intended procedure Time Out Communication: Intended patient and procedure match the source documents. Consent documented and matches the intended procedure. Correct side/site marked and visible. Medications required for procedure verified. Sign Out: SIGN OUT (optional for EMERGENT procedures): Post-procedure follow-up management communicated and Plan of Care Visit completed when applicable. Lateral side of the right knee was cleansed with betadine and alcohol. A 22 gauge 1 1/2 needle was inserted into the joint space. Prior to injection aspiration was attempted with no blood return. The medication was then injected without difficulty. Patient tolerated well. Medication: 1.5 ml of 2% Lido without Epi with 60 mg of kenalog. Lateral side of the left knee was cleansed with betadine and alcohol. A 22 gauge 1 1/2 needle wasinserted into the joint space. Prior to injection aspiration was attempted with no blood return. The medication was then injected without difficulty. Patient tolerated well. Medication: 1.5 ml of 2% Lido without Epi with 60 mg of kenalog. Max Rodriguez MD documented in this encounterLutheran Hospital07-09-2024 History of Present illness Narrative* Max Rodriguez MD - 05/16/2024 9:31 AM EDT Chief Complaint Patient presents with: Injections: Bilateral knee injections HPI Anne Marie Garza is a 83 year old female who presents here today for bilateral knee injections . Patient has arthritis in her knees and has been controlled with bilateral injections. Patient does not want to have surgery. Past medical history, appointments, medications, allergies reviewed. Previous Medical History PAST MEDICAL HISTORY Diagnosis Date Acquired hypothyroidism 08/02/2015 Advance directive discussed with patient 01/20/2023 Discussed 01/2023: Up to date Anxiety Anxiety 01/19/2010 -continue home citalopram Bilateral carotid artery stenosis 12/31/2023 US 12/2023: Rt 20-40% Lt 60-80% BPV (benign positional vertigo) 08/02/2015 Chronic pain of both knees 05/24/2020 Seeing Ortho: Dr. Whiteside Coronary artery 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 08/02/2015 Not seeing cardiology Degenerative disc disease, lumbar 05/26/2018 Elevated hemoglobin (HCC) 04/17/2020 to be rechecked 05/17/2020 Elevated hemoglobin A1c 12/30/2017 Epidermal inclusion cyst 09/09/2019 anterior chest wall excised 08/2019 Essential hypertension 01/26/2017 GERD without esophagitis 07/08/2022 Graves disease Heart attack (HCC) [facility] stent in heart History of COVID-19 07/08/202205/2022 History of non-ST elevation myocardial infarction (NSTEMI) 01/19/201001/2010 Intradermal nevus 12/30/2014 right inferrior medial breast Keratosis, inflamed seborrheic 12/30/2014 right upper back Left carpal tunnel syndrome 01/04/[address] 12/03/2021 Daughter Truong is DPOA Low vitamin B12 level 04/06/2014 Lumbar radicular pain 05/26/2018 Added automatically from request for surgery [id number] Lump or mass in breast 01/20/2023 Patient [...] 2D ECHO (EXEP) 12/21/2019 EF=60%, 1+ TI, AR, AI 2D ECHO (EXEP) 02/17/2021 EF= 60%, [...] Other: See Comments Dehydrated, nauseated and week Mary Inhibitors Cough Chantix [Vareniclin* Other: See Comments Bad dreams Lipitor [Atorvastat* Other: See Comments Muscle pains Mucinex [Guaifenesi* Mental Status Change dizziness and confusion Pravachol [Pravasta* Other: See Comments Muscle aches Zanaflex [Tizanidin* Other: See Comments Caused pt to feel jittery all over Current Medications Current Outpatient Medications on File Prior to Visit Medication Sig valsartan (DIOVAN) 320 mg tablet Take 1 tablet by mouth once daily. celecoxib (CELEBREX) 200 mg capsule Take 1 capsule by mouth two times a day. traMADol (ULTRAM) 50 mg tablet Take 1 tablet by mouth every 8 hours as needed for pain for up to 90days. levothyroxine (LEVOXYL) 137 mcg tablet Take one tab by mouth once a day Wed-Wed and none on Wednesday.Take on empty stomach. For Thyroid. metoprolol succinate ER (TOPROL XL) 100 mg Take 1 tablet by mouth once daily. citalopram (CELEXA) 40 mg tablet Take 1 tablet by mouth once daily. omeprazole (PRILOSEC) 40 mg capsule Take 1 capsule by mouth two times a day. rosuvastatin (CRESTOR) 5 mg tablet Take 1 tablet by mouth once daily. amLODIPine (NORVASC) 5 mg tablet Take 1 tablet by mouth once daily. nitroglycerin sublingual (NITROQUICK) 0.4 mg SL tablet Dissolve 1 tablet under the tongue every 5 minutes as needed. ondansetron orally disintegrating (ZOFRAN ODT) 4 mg disintegrating tablet Take 1 tablet by mouth every 6 hours as needed for nausea/vomiting. albuterol HFA (PROVENTIL HFA, VENTOLIN HFA) 90 mcg/actuation inhaler Inhale 2 Puffs as instructed every 4 hours as needed. aspirin, enteric coated (ASPIRIN, ENTERIC COATED) 81 mg EC tablet Take 81 mg by mouth once daily. No current facility-administered medications on file prior to visit. Social History Social History Tobacco Use Smoking status: Former Packs/day: 1 Types: Cigarettes Quit date: 04/08/2022 Years since quittin.1 Smokeless tobacco: Never Tobacco comments: 3 cigarettes per day Vaping Use Vaping Use: current everyday user Substances: Nicotine Devices: Pre-filled or refillable cartridge Substance Use Topics Alcohol use: Yes Comment: occasional glass of wine, once a month Drug use: No Review of Symptoms REVIEW OF SYSTEMS Pain in knees EXAM: BP 146/86 (BP Site: Left Arm, BP Position: Sitting, BP Cuff Size: Regular Adult) Pulse 60 Resp 16 Wt 76.7 kg (169 lb) BMI 29.94 kg/m Extremities: knees look arthritic but no signs of infection. . Health Maintenance List Influenza Vaccine(1) due on 07/09/2024 LDL Cholesterol due on 12/21/2024 Diabetes Screening due on 12/31/2026 DTaP,Tdap,Td Vaccine(2 - Td or Tdap) due on 04/22/2033 Bone Density Screening Completed Spirometry Completed Advance Directive Discussion Completed RSV Vaccine Completed Shingrix Vaccine Completed Covid-19 Vaccine Completed Pneumococcal Vaccine: 65+ Completed Colorectal Cancer Screening Discontinued Data reviewed A/P ASSESSMENT/PLAN: 1. Arthritis of both knees - ICD9: 716.96, ICD10: M17.0 (primary diagnosis) - injection of both knees as per procedure note. 2. Chronic pain of both knees - ICD9: 719.46, 338.29, ICD10: M25.561, M25.562, G89.29 - as above., Max Rodriguez MD [facility] History of Present illness Narrative* Max Rodriguez MD - 04/28/2024 9:40 AM EDT Chief Complaint Patient presents with: F/U 6 months HPI Anne Marie Garza is a 83 year old female who presents here today for 6 month follow up. Patient with Hx of hypothyroidism, CAD, COPD, HTN, elevated A1c, hyperlipidemia, emphysema, depression, anxiety, obesity, MATT, smoker, low B12, Arthritis with chronic pain especially the knees as well as those reviewed and addressed below and in ROS. Patient has a lot of joint stiffness. Continues to take the celebrex and tramadol for improved paincontrol. 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 Wearing her CPAP most nights. Office visit - medicare wellness 01/2024 Patient with Hx of hypothyroidism, CAD, COPD, HTN, elevated A1c, hyperlipidemia, emphysema, depression, anxiety, obesity, MATT, smoker, low B12, Arthritis with chronic pain especially the knees as well as those reviewed and addressed below and in ROS. Patient has decided that she does not want to see pulmonary any longer and did not get the stress test. She did get the 2D echo and was ok. She did see cardio last week. Patient did not want to do any further testing. Was told to f/u as needed or in a year. Patient wants to come back to me to have the bilateral knee injections. Continues to take the tramadol which helps control her pain and improve quality of life. No concerns for inappropriate use or abuse. Patient has been several times for her HTN Past medical history, appointments, medications, allergies reviewed. Previous Medical History PAST MEDICAL HISTORY Diagnosis Date Acquired hypothyroidism 08/02/2015 Advance directive discussed with patient 01/20/2023 Discussed 01/2023: Up to date Anxiety Anxiety 01/19/2010 -continue home citalopram Bilateral carotid artery stenosis 12/31/2023 US 12/2023: Rt 20-40% Lt 60-80% BPV (benign positional vertigo) 08/02/2015 Chronic pain of both knees 05/24/2020 Seeing Ortho: Dr. Whiteside Coronary artery 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 08/02/2015 Not seeing cardiology Degenerative disc disease, lumbar 05/26/2018 Elevated hemoglobin (HCC) 04/17/2020 to be rechecked 05/17/2020 Elevated hemoglobin A1c 12/30/2017 Epidermal inclusion cyst 09/09/2019 anterior chest wall excised 08/2019 Essential hypertension 01/26/2017 GERD without esophagitis 07/08/2022 Graves disease Heart attack (HCC) [facility] stent in heart History of COVID-19 07/08/202205/2022 History of non-ST elevation myocardial infarction (NSTEMI) 01/19/201001/2010 Intradermal nevus 12/30/2014 right inferrior medial breast Keratosis, inflamed seborrheic 12/30/2014 right upper back Left carpal tunnel syndrome 01/04/[address] 12/03/2021 Daughter Truong is DPOA Low vitamin B12 level 04/06/2014 Lumbar radicular pain 05/26/2018 Added automatically from request for surgery [id number] Lump or mass in breast 01/20/2023 Patient [...] Recurrent major depressive disorder, in partial remission ([facility] [place]) 04/14/2016 Severe obstructive sleep apnea AHI 32.5 [...] 2D ECHO (EXEP) 12/21/2019 EF=60%, 1+ TI, AR, AI 2D ECHO (EXEP) 02/17/2021 EF= 60%, [...] Other: See Comments Dehydrated, nauseated and week Mary Inhibitors Cough Chantix [Vareniclin* Other: See Comments [...] as needed for pain for up to 90days. valsartan (DIOVAN) 320 mg tablet Take 1 tablet by mouth once daily. levothyroxine (LEVOXYL) 137 mcg tablet Take one tab by mouth once a day Wed-Wed and none on Wednesday.Take on empty stomach. For Thyroid. metoprolol succinate ER (TOPROL XL) 100 mg Take 1 tablet by mouth once daily. citalopram (CELEXA) 40 mg tablet Take 1 tablet by mouth once daily. omeprazole (PRILOSEC) 40 mg capsule Take 1 capsule by mouth two times a day. rosuvastatin (CRESTOR) 5 mg tablet Take 1 tablet by mouth once daily. amLODIPine (NORVASC) 5 mg tablet Take 1 tablet by mouth once daily. nitroglycerin sublingual (NITROQUICK) 0.4 mg SL tablet Dissolve 1 tablet under the tongue every 5 minutes as needed. celecoxib (CELEBREX) 200 mg capsule Take 1 capsule by mouth two times a day. ondansetron orally disintegrating (ZOFRAN ODT) 4 mg disintegrating tablet Take 1 tablet by mouth every 6 hours as needed for nausea/vomiting. albuterol HFA (PROVENTIL HFA, VENTOLIN HFA) 90 [...] vision, no nose bleeds or other nasal problems. Has had some left ear pain the past two days. No sore throat or nasal drainage. NECK: Negative for lumps, goiter, pain and significant neck swelling RESPIRATORY: Negative for cough, hemoptysis, some increased wheezing, COPD, dyspnea or shortness ofbreath with the recent hot weather. CARDIOVASCULAR: Negative for chest pain, leg swelling, hypertension, CHF or palpitations GI: No nausea, vomiting, or diarrhea and No heartburn or reflux symptoms MUSCULOSKELETAL: see HPI ENDOCRINE: Negative for cold or heat intolerance, polyuria, polydipsia and goiter NEURO: No history of headaches, syncope, paralysis, seizures or tremors EXAM: BP 128/62 (BP Site: Left Arm, BP Position: Sitting, BP Cuff Size: Regular Adult) Pulse 60 Resp 16 Wt 75.8 kg (167 lb) BMI 29.58 kg/m Last 5 Encounter Wt Readings: Date: Wt: 04/28/2024 75.8 kg (167 lb) 03/17/2024 76.2 kg (168 lb) 01/26/2024 77.6 kg (171 lb) 12/21/2023 78 kg (172 lb) 12/08/2023 77.6 kg (171 lb) General Appearance: Well appearing, alert, in no acute distress, well-hydrated, well nourished. andOverweight. Neck: Supple, no adenopathy; thyroid symmetric, normal size, no bruits. Lungs: Lungs clear to auscultation. No wheezing, rhonchi, rales.. Heart: RRR without murmur, gallop, or rubs. No ectopy. Abdomen: Normal abdominal exam, Abdomen soft, non-tender. Bowel sounds normal. No masses, organomegaly. Extremities: No deformities, edema, skin discoloration, Good capillary refill. . Peripheral Pulses: Normal. Neurologic: Gait normal. Sensation grossly intact.. Health Maintenance List Covid-19 Vaccine( season) due on 12/31/2023 LDL Cholesterol due on 12/21/2024 Diabetes Screening due on 12/31/2026 DTaP,Tdap,Td Vaccine(2 - Td or Tdap) due on 04/22/2033 Bone Density Screening Completed Spirometry Completed Influenza Vaccine Completed Advance Directive Discussion Completed RSV Vaccine Completed Shingrix Vaccine Completed Pneumococcal Vaccine: 65+ Completed Colorectal Cancer Screening Discontinued Data reviewed Latest Ref Rng 12/21/2023 12/23/2023 12/31/2023 01/26/2024 WBC 3.70 - 11.00 k/uL 9.37 RBC 3.90 - 5.20 m/uL 4.82 Hemoglobin 11.5 - 15.5 g/dL 13.9 Hematocrit 36.0 - 46.0 % 43.8 MCV 80.0 - 100.0 fL 90.9 MCH 26.0 - 34.0 pg 28.8 MCHC 30.5 - 36.0 g/dL 31.7 RDW-CV 11.5 - 15.0 % 14.4 Platelet Count 150 - 400 k/uL 278 MPV 9.0 - 12.7 fL 10.8 Neut% % 65.3 Abs Neut (ANC) 1.45 - 7.50 k/uL 6.11 Lymph% % 22.2 Abs Lymph 1.00 - 4.00 k/uL 2.08 Montague% % 6.7 Abs [place] <0.87 k/uL 0.63 Eosin% % 5.0 Abs Eosin <0.46 k/uL 0.47 (H) Baso% % 0.6 Abs Baso <0.11 k/uL 0.06 Immature Gran % % 0.2 IMMATURE GRANS (ABS) <0.10 k/uL <0.03 NRBC /100 WBC 0.0 Absolute nRBC <0.01 k/uL <0.01 DTYPE Auto Color Yellow Yellow Clarity Clear Clear Glucose, Urine Negative Negative Bilirubin, Urine Negative Negative Ketones, Urine Negative Trace ! Specific [place], Ur 1.005 - 1.030 1.025 Hemoglobin/Blood,Ur Negative Negative pH, Urine <8.5 6.5 Protein, Urine Negative 1+ ! Urobilinogen 0.2-1.0 EU/dL 1.0 EU/dL Nitrites Negative Negative Leukest Negative Negative WBC, Urine 0-5 /HPF 0-5 /HPF RBC, Urine 0-2 /HPF 0-2 /HPF Bacteria Negative /HPF Negative Epithelial Cells /HPF Moderate Hyaline Cast 0 /LPF 0 /LPF Protein, Total 6.3 - 8.0 g/dL 6.8 Albumin 3.9 - 4.9 g/dL 4.0 Calcium 8.5 - 10.2 mg/dL 9.0 9.6 9.1 Bilirubin, Total 0.2 - 1.3 mg/dL 0.4 Alkaline Phosphatase 34 - 123 U/L 51 AST 13 - 35 U/L 17 ALT 7 - 38 U/L 10 Glucose 74 - 99 mg/dL 91 81 95 BUN 7 - 21 mg/dL 23 (H) 18 24 (H) Creatinine 0.58 - 0.96 mg/dL 1.12 (H) 1.21 (H) 1.07 (H) Sodium 136 - 144 mmol/L 139 141 137 Potassium 3.7 - 5.1 mmol/L 5.3 (H) 5.2 (H) 4.9 Chloride 97 - 105 mmol/L 101 103 103 CO2 22 - 30 mmol/L 28 24 29 Anion Gap 9 - 18 mmol/L 10 14 5 (L) eGFR >=60 mL/min/1.73m 49 (L) 45 (L) 52 (L) Phencyclidine Negative Negative Benzodiazepines Urine Negative Negative Cocaine Urine Negative Negative Amphetamines Negative Negative Cannabinoids, Urine Negative Negative Opiates Negative Negative Barbiturates Negative Negative Ethanol, Urine <11 mg/dL <11 Oxycodone, Urine Negative Negative Total Cholesterol, Nonfasting <200 mg/dL 141 Triglycerides, Nonfasting <150 mg/dL 91 HDL Cholesterol, Nonfasting >39 mg/dL 52 LDL Cholesterol, Nonfasting <100 mg/dL 71 Non HDL Cholesterol, Nonfasting <130 mg/dL 89 VLDL Cholesterol, Nonfasting <30 mg/dL 18 Total Chol/HDL Ratio, Nonfasting <5.10 mg/dL 2.71 LDL/HDL Ratio, Nonfasting <2.54 mg/dL 1.37 Hemoglobin A1C 4.3 - 5.6 % 5.8 (H) Estimated Average Glucose mg/dL 120 Vitamin B12 232 - 1,245 pg/mL 371 TSH 0.270 - 4.200 mIU/L 0.644 Magnesium 1.7 - 2.3 mg/dL 2.0 Bilirubin, Conjug <0.2 mg/dL <0.2 A/P ASSESSMENT/PLAN: 1. Essential hypertension - ICD9: 401.9, ICD10: I10 (primary diagnosis) - Controlled - Continue current medications - Recommend home blood pressure monitoring, to bring results to next visit - Encouraged sodium restriction, DASH or Mediterranean diet - Recommend regular aerobic exercise - VALSARTAN 320 MG TABLET 2. Mixed hyperlipidemia - ICD9: 272.2, ICD10: E78.2 - Controlled - Continue current medications - Counseled on healthy diet and regular exercise 3. Elevated hemoglobin A1c - ICD9: 790.29, ICD10: R73.09 - controlled with diet. 4. Acquired hypothyroidism - ICD9: 244.9, ICD10: E03.9 - Instructed patient on importance of taking on an empty stomach either first thing in the morning or at bedtime. - continue current dose of Synthroid 5. Coronary artery 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 - ICD9: 414.00, 414.3, ICD10: I25.10, I25.83 - stable. Cont management with cardio. 6. Elevated hemoglobin (HCC) - ICD9: 282.7, ICD10: D58.2 - last lab was normal. Will cont to follow. 7. GERD without esophagitis - ICD9: 530.81, ICD10: K21.9 - Continue treatment with Prilosec 40 mg BID 8. Stage 3a chronic kidney disease (HCC) - ICD9: 585.3, ICD10: N18.31 - eGFR: 52 Improving - ACEi/ARB prescribed: Yes 9. Pulmonary emphysema, unspecified emphysema type (HCC) - ICD9: 492.8, ICD10: J43.9 - patient has seen Pulm but declined to do any testing. 10. Bilateral carotid artery stenosis - ICD9: 433.10, 433.30, ICD10: I65.23 - cont current Tx. 11. Recurrent major depressive disorder, in partial remission (HCC) - ICD9: 296.35, ICD10: F33.41 - stable with current Tx. 12. Anxiety - ICD9: 300.00, ICD10: F41.9 - stable with current Tx. 13. Low vitamin B12 level - ICD9: 790.6, ICD10: R79.89 - has been stable off replacement will monitor 14. Severe obstructive sleep apnea AHI 32.5 - ICD9: 327.23, ICD10: G47.33 - patient wearing CPAP nightly 15. Over weight - ICD9: 278.02, ICD10: E66.3 - has lost some weight. BMI is no longer in the obesity range. 16. Need for vaccination - ICD9: V05.9, ICD10: Z23 - [employer] COVID-19 VACCINE ( SEASON) AGE 12+ YR: given Requested Prescriptions Signed Prescriptions Disp Refills valsartan (DIOVAN) 320 mg tablet 90 tablet 1 Sig: Take 1 tablet by mouth once daily. celecoxib (CELEBREX) 200 mg capsule 180 capsule 1 Sig: Take 1 capsule by mouth two times a day. Patient will f/u in May for knee injections. F/u in Jul for routine with labs prior. I spent a total of 40 minutes on the date of the service which included preparing to see the patient, [id number] patient care, completing clinical documentation, performing a medically appropriate examination, counseling and educating the patient/family/caregiver and ordering medications, tests, or procedures. Patient was asked at end of visit if they had any questions or input regarding the plan of care we had discussed. Max Rodriguez MD [facility] Tele[facility] encounter Note * Telephone Encounter - Dora Whitman PA-C - 04/11/2024 7:39 AM EDT The following approved medication requests have been transmitted electronically. Requested Prescriptions Signed Prescriptions Disp Refills traMADol (ULTRAM) 50 mg tablet 270 tablet 0 Sig: Take 1 tablet by mouth every 8 hours as needed for pain for up to 90 days. Authorizing Provider: DORA WHITMAN PA-C [facility] Miscellaneous Notes* Telephone Encounter - Dora Whitman PA-C - 04/11/2024 7:39 AM EDT The following approved medication requests have been transmitted electronically. Requested Prescriptions Signed Prescriptions Disp Refills traMADol (ULTRAM) 50 mg tablet 270 tablet 0 Sig: Take 1 tablet by mouth every 8 hours as needed for pain for up to 90 days. Authorizing Provider: DORA WHITMAN PA-C * Telephone Encounter - Haroldo Comer LPN - 04/10/2024 3:42 PM EDT Patient MyChart message requesting the following refill Refill(s) Requested: Requested Prescriptions Pending Prescriptions Disp Refills traMADol (ULTRAM) 50 mg tablet 270 tablet 0 Sig: Take 1 tablet by mouth every 8 hours as needed for pain for up to 90 days. ALLERGIES Allergen Reactions Iodine Anaphylaxis Hctz [Thiazides] Other: See Comments Dehydrated, nauseated and week Mary Inhibitors Cough Chantix [Vareniclin* Other: See Comments Bad dreams Lipitor [Atorvastat* Other: See Comments Muscle pains Mucinex [Guaifenesi* Mental Status Change dizziness and confusion Pravachol [Pravasta* Other: See Comments Muscle aches Zanaflex [Tizanidin* Other: See Comments Caused pt to feel jittery all over (home) [phone] (cell) Last Office Visit Date: 03/17/2024 Last [facility] Visit: Visit date not found Future Appointment: 04/28/2024 The patients preferred pharmacy has been captured for this encounter? yes Request is for script(s) to be escript to pharmacy. Haroldo Comer LPN documented [facility] Telephone encounter Note * Telephone Encounter - Haroldo Comer LPN - 04/10/2024 3:42 PM EDT Patient MyChart message requesting the following refill Refill(s) Requested: Requested Prescriptions Pending Prescriptions Disp Refills traMADol (ULTRAM) 50 mg tablet 270 tablet 0 Sig: Take 1 tablet by mouth every 8 hours as needed for pain for up to 90 days. ALLERGIES Allergen Reactions Iodine Anaphylaxis Hctz [Thiazides] Other: See Comments Dehydrated, nauseated and week Mary Inhibitors Cough Chantix [Vareniclin* Other: See Comments Bad dreams Lipitor [Atorvastat* Other: See Comments Muscle pains Mucinex [Guaifenesi* Mental Status Change dizziness and confusion Pravachol [Pravasta* Other: See Comments Muscle aches Zanaflex [Tizanidin* Other: See Comments Caused pt to feel jittery all over (home) [phone] (cell) Last Office Visit Date: 03/17/2024 Last [facility] Visit: Visit date not found Future Appointment: 04/28/2024 The patients preferred pharmacy has been captured for this encounter? yes Request is for script(s) to be escript to pharmacy. Haroldo Comer LPN [facility] History of Present illness Narrative* Nicole Zhnag APRN.TOY STUFFER - 03/17/2024 10:40 AM EDT Chief Complaint Patient presents with: Follow Up: Blood pressure HPI Anne Marie Garza is a 83 year old female who presents here today for Above Complaints.. Patient presents for BP follow up. Patient was switched from losartan to valsartan due to insurancecoverage. Patient was previously well managed on losartan. Past medical history, appointments, medications, allergies reviewed. Previous Medical History PAST MEDICAL HISTORY Diagnosis Date Acquired hypothyroidism 08/02/2015 Advance directive discussed with patient 01/20/2023 Discussed 01/2023: Up to date Anxiety Anxiety 01/19/2010 -continue home citalopram Bilateral carotid artery stenosis 12/31/2023 US 12/2023: Rt 20-40% Lt 60-80% BPV (benign positional vertigo) 08/02/2015 Chronic pain of both knees 05/24/2020 Seeing Ortho: Dr. Whiteside Coronary artery 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 08/02/2015 Not seeing cardiology Degenerative disc disease, lumbar 05/26/2018 Elevated hemoglobin (HCC) 04/17/2020 to be rechecked 05/17/2020 Elevated hemoglobin A1c 12/30/2017 Epidermal inclusion cyst 09/09/2019 anterior chest wall excised 08/2019 Essential hypertension 01/26/2017 GERD without esophagitis 07/08/2022 Graves disease Heart attack (HCC) [facility] stent in heart History of COVID-19 07/08/202205/2022 History of non-ST elevation myocardial infarction (NSTEMI) 01/19/201001/2010 Intradermal nevus 12/30/2014 right inferrior medial breast Keratosis, inflamed seborrheic 12/30/2014 right upper back Left carpal tunnel syndrome 01/04/[address] 12/03/2021 Daughter Truong is DPOA Low vitamin B12 level 04/06/2014 Lumbar radicular pain 05/26/2018 Added automatically from request for surgery [id number] Lump or mass in breast 01/20/2023 Patient [...] 2D ECHO (EXEP) 12/21/2019 EF=60%, 1+ TI, AR, AI 2D ECHO (EXEP) 02/17/2021 EF= 60%, [...] Other: See Comments Dehydrated, nauseated and week Mary Inhibitors Cough Chantix [Vareniclin* Other: See Comments Bad dreams Lipitor [Atorvastat* Other: See Comments Muscle pains Mucinex [Guaifenesi* Mental Status Change dizziness and confusion Pravachol [Pravasta* Other: See Comments Muscle aches Zanaflex [Tizanidin* Other: See Comments Caused pt to feel jittery all over Current Medications Current Outpatient Medications on File Prior to Visit Medication Sig valsartan (DIOVAN) 160 mg tablet Take 1 tablet by mouth once daily. metoprolol succinate ER (TOPROL XL) 100 mg Take 1 tablet by mouth once daily. citalopram (CELEXA) 40 mg tablet Take 1 tablet by mouth once daily. omeprazole (PRILOSEC) 40 mg capsule Take 1 capsule by mouth two times a day. rosuvastatin (CRESTOR) 5 mg tablet Take 1 tablet by mouth once daily. amLODIPine (NORVASC) 5 mg tablet Take 1 tablet by mouth once daily. nitroglycerin sublingual (NITROQUICK) 0.4 mg SL tablet Dissolve 1 tablet under the tongue every 5 minutes as needed. traMADol (ULTRAM) 50 mg tablet Take 1 tablet by mouth every 8 hours as needed for pain for up to 90days. cephALEXin (KEFLEX) 500 mg capsule (Patient not taking: Reported on 01/10/2024) celecoxib (CELEBREX) 200 mg capsule Take 1 capsule by mouth two times a day. levothyroxine (LEVOXYL) 137 mcg tablet Take one tab by mouth once a day and none on Wednesday.Take on empty stomach. For Thyroid. famotidine (PEPCID) 20 mg tablet Take 1 tablet by mouth twice daily. Started in ER 05/2023 (Patient not taking: Reported on 01/26/2024) ondansetron orally disintegrating (ZOFRAN ODT) 4 mg disintegrating tablet Take 1 tablet by mouth every 6 hours as needed for nausea/vomiting. fluticasone propionate (FLOVENT DISKUS) 100 mcg/actuation inhaler Inhale 1 Puff as instructed twicedaily. (Patient not taking: Reported on 01/26/2024) albuterol HFA (PROVENTIL HFA, VENTOLIN HFA) 90 mcg/actuation inhaler Inhale 2 Puffs as instructed every 4 hours as needed. aspirin, enteric coated (ASPIRIN, ENTERIC COATED) 81 mg EC tablet Take 81 mg by mouth once daily. No current facility-administered medications on file prior to visit. Social History Social History Tobacco Use Smoking status: Former Packs/day: 1 Types: Cigarettes Quit date: 04/08/2022 Years since quittin.9 Smokeless tobacco: Never Tobacco comments: 3 cigarettes per day Vaping Use Vaping Use: current everyday user Substances: Nicotine Devices: Pre-filled or refillable cartridge Substance Use Topics Alcohol use: Yes Comment: occasional glass of wine, once a month Drug use: No Review of Symptoms REVIEW OF SYSTEMS SEE HPI EXAM: BP 170/51 Pulse (!) 48 Resp 14 Wt 76.2 kg (168 lb) BMI 29.76 kg/m General Appearance: Well appearing, alert, in no acute distress, well-hydrated, well nourished.. Lungs: Lungs clear to auscultation. No wheezing, rhonchi, rales.. Heart: RRR without murmur, gallop, or rubs. No ectopy. Health Maintenance List Covid-19 Vaccine( season) due on 12/31/2023 LDL Cholesterol due on 12/21/2024 Diabetes Screening due on 12/31/2026 DTaP,Tdap,Td Vaccine(2 - Td or Tdap) due on 04/22/2033 Bone Density Screening Completed Spirometry Completed Influenza Vaccine Completed Advance Directive Discussion Completed RSV Vaccine Completed Shingrix Vaccine Completed Pneumococcal Vaccine: 65+ Completed Colorectal Cancer Screening Discontinued ASSESSMENT/PLAN: 1. Essential hypertension - ICD9: 401.9, ICD10: I10 (primary diagnosis) - Improving control - Increase valsartan - Recommend home blood pressure monitoring, to bring results to next visit - Encouraged sodium restriction, DASH or Mediterranean diet - Recommend regular aerobic exercise - Discussed need for and benefit of weight loss. BMI 29.76 kg/(m^2) - VALSARTAN 320 MG TABLET 2. Acquired hypothyroidism - ICD9: 244.9, ICD10: E03.9 - Instructed patient on importance of taking on an empty stomach either first thing in the morning or at bedtime. - LEVOTHYROXINE 137 MCG TABLET Nicole Zhang APRN.TOY STUFFER documented in this encounterL[facility]04-05-[facility]24 Miscellaneous Notes* Telephone Encounter - Dora Whitman PA-C - 02/11/2024 1:46 PM EDT The following approved medication requests have been transmitted electronically. Requested Prescriptions Signed Prescriptions Disp Refills valsartan (DIOVAN) 160 mg tablet 90 tablet 1 Sig: Take 1 tablet by mouth once daily. Authorizing Provider: DORA WHITMAN PA-C * Telephone Encounter - Little Deluca LPN - 02/11/2024 1:34 PM EDT Daughter Kailyn notified of message from provider & is fine with changing her mother's medication. Please send to [facility]. BP scheduled for 03/17/24. Little Deluca LPN * Telephone Encounter - Max Rodriguez MD - 02/10/2024 6:24 PM EDT Let daughter know I would prefer to change her mother to Valsartan 160 mg once a day. If ok I will send in a script. Pat will need an office appt in 5 weeks to see if BP being controlled. * Telephone Encounter - Nanette Delong MA - 02/10/2024 2:33 PM EDT Scan on 02/10/2024 2:52 PM by Provider, External, VIN: Losartan Not On Formulary Daughter stopped by office & dropped off paper work received from insurance stating as above: Losartan 100 MG no longer on formulary d/t a quantity limit. Medication will only be covered 30 TABLET(S) EVERY 30 DAYS. Pharmacy initiated a 30 day supply temporarily. Pended new script written as 30 day supply. Nurse: please notify patient once filed. Nanette Delong MA documented in this encounterLuther[facility]03-21-2024 Miscellaneous Notes* Telephone Encounter - Little Deluca LPN - 01/27/2024 9:15 AM EDT Pt's daughter Kailyn notified of results & voiced understanding. Little Deluca LPN * Telephone Encounter - Max Rodriguez MD - 01/27/2024 8:40 AM EDT Let daughter Vidya know that the liver function tests were normal. documented in this encounterLutheran Hospital03-20-2024 Instructions* Patient Instructions* Max Rodriguez MD - 01/26/2024 10:51 AM EDT Screening schedule The following prevention plan is recommended: Advance Directive Discussion due on 11/08/2023 WHAT YOU CAN DO TO PREVENT FALLS Many falls can be prevented. By making some changes, you can lower your chances of falling. Four things YOU can do to prevent falls for you* and your caregiver 1. Begin a regular exercise program Exercise is one of the most important ways to lower your chances of falling. It makes you stronger and helps you feel better. Exercises that improve balance and coordination (like Peterson Chi) are the most helpful. Lack of exercise leads to weakness and increases your chances of falling. Ask your doctor or health care provider about the best type of exercise program for you. 2. Have your health care provider review your medicines Have your doctor or pharmacist review all the medicines you take, even [id number] medicines. As you get older, the way medicines work in your body can change. Some medicines, or combinations of medicines, can make you sleepy or dizzy andcan cause you to fall. 3. Have your vision checked Have your eyes checked by an eye doctor at least once a year. You may be wearing the wrong glasses or have a condition like glaucoma or cataracts that limits your vision. Poor vision can increase your chances of falling. 4. Make your home safer About half of all falls happen at home. To make your home safer: Remove things you can trip over (like papers, books, clothes, and shoes) from stairs and places where you walk. Remove small throw rugs or use double-sided tape to keep the rugs from slipping. Keep items you use often in cabinets you can reach easily without using a step stool. Have grab bars put in next to your toilet and in the tub or shower. Use non-slip mats in the bathtub and on shower floors. Improve the lighting in your home. As you get older, you need brighter lights to see well. Hang light-weight curtains or shades to reduce glare. Have handrails and lights put in on all staircases. Wear shoes both inside and outside the house. Avoid going barefoot or wearing slippers. For more information, contact: Centers for Disease Control and Prevention www.cdc.gov/injury * This information may not apply if you have certain medical conditions. documented in this encounterLutheran Hospital03-20-2024 History of Present illness Narrative* Max Rodriguez MD - 01/26/2024 10:40 AM EDT Images from the original note were not included. Anne Marie Garza is a 83 year old female here for a Medicare wellness visit. Medicare Health Risk Assessment General Health good Exercise: Minutes/Day Patient declined Exercise: Days/Week 0 days Alcohol: Daily Use Patient declined Alcohol: Drinks/Day Patient declined Alcohol: 6 or more drinks Patient declined Feel off balance Sometimes. Concerns: Teeth/Dentures Concerns: Sexual function Troubled by feelings none Frequency: Eating healthy diet ADLs requiring help Needs help with meal prep, daughter manages finances Safety precautions in home/vehicle No longer drives, wears set belts, no loose rugs, has stair rails and sits with showering. Smoke, vape, chews tobacco quit Difficulty hearing no Difficulty seeing Has macular degeneration Current Providers Specialists: I have reviewed specialist-related care of the patient in the medical record. Current care team: Patient Care Team: Max Rodriguez MD as PCP - General (Family Medicine) Dr. Rasmussen (cardio) Optho Dr. Whiteside. Medical/Family history review Reviewed and updated problem list, medical/surgical/family/social history, medications, and allergies. Opioid use review Opioid Medications (last 90 days) 01/26/2024 Opioid Medications tramadol HCl 50 mg q 8 H PRN ORAL No sig Details Outpatient prescription Prescribed tramadol HCl (last 90 days) Does patient have risk factors for opioid abuse? No Pain overview Current pain concerns and treatment plan reviewed. Patient stable on current treatment plan. Depression screening Depression Screening PHQ-2 Score 01/26/2024 2 Depression screening tool completed and reviewed. Based on score and interview, patient is not at risk for depression. Screening tool discussed with patient, and I recommended no further interventionat this time. Cognitive screening Score: 5 Cognitive screening reviewed and no further action needed (score 3-5) Functional Observation Was the patient's Timed Up & Go test unsteady or ? 12 seconds? No Advance Care Planning Surrogate decision maker documented and/or advance directives scanned in chart Measurements BP 138/68 Pulse 70 Resp 16 Wt 171 lb (77.6kg) Vision Screening: Follows with optometry/ophthalmology Assessment/Plan Medicare annual wellness visit, subsequent (Z00.00) - Counseled on healthy diet and regular exercise - Fall avoidance information provided - Personalized prevention plan provided See below Chief Complaint Patient presents with: Medicare Wellness Exam HPI Anne Marie Garza is a 83 year old female who presents here today for Chronic Medical Conditions. andMedicare Annual Visit. Patient with Hx of hypothyroidism, CAD, COPD, HTN, elevated A1c, hyperlipidemia, emphysema, depression, anxiety, obesity, MATT, smoker, low B12, Arthritis with chronic pain especially the knees as well as those reviewed and addressed below and in ROS. Patient has decided that she does not want to see pulmonary any longer and did not get the stress test. She did get the 2D echo and was ok. She did see cardio last week. Patient did not want to do any further testing. Was told to f/u as needed or in a year. Patient wants to come back to me to have the bilateral knee injections. Continues to take the tramadol which helps control her pain and improve quality of life. No concerns for inappropriate use or abuse. Patient has been several times for her HTN Office visit - Er follow up 12/21/2023 Daughter indicated that patient was feeling dizziness all day so she contacted our office and triage nurse indicated to take her the ER. Per daughter ER reported that patient's eyes were yellow as well, jaundice. She did have a UTI and culture came back and was placed on Keflex 500 mg TID for 7 days. Still completing the antibiotic. Still getting occasional dizziness. However it is less often andnot lasting as long. Can not say if position related. Patient did see pulm and they have ordered a 2D echo. They want her to do a walking test. They alsoadvised getting her into cardio but the appt is not till 01/21/2024. Their thinking of holding off on the walking test till they see cardio. Patient continues to get very short of breat with ambulation, will get dizzy, diaphoretic and nauseated. She denies chest pressure or heaviness. No arm pain. Has a Hx of CAD. Office visit - 07/23/2023 6 month follow up Patient with Hx of hypothyroidism, CAD, COPD, HTN, elevated A1c, hyperlipidemia, emphysema, depression, anxiety, obesity, MATT, smoker, low B12, Arthritis with chronic pain especially the knees as well as those reviewed and addressed below and in ROS. Patient has decided to no longer see cardio or pulmonary. Since last appt she is taking her inhalerdaily and breathing has been better. tramadol continues [...] A1C 5.9 07/06/2023 5.7 01/12/[address] Whiteside 05/2023 - ostearthritis in both knees Past medical history, appointments, medications, allergies reviewed. Previous Medical History PAST MEDICAL HISTORY Diagnosis Date Acquired hypothyroidism 08/02/2015 Advance directive discussed with patient 01/20/2023 Discussed 01/2023: Up to date Anxiety Anxiety 01/19/2010 -continue home citalopram Bilateral carotid artery stenosis 12/31/2023 US 12/2023: Rt 20-40% Lt 60-80% BPV (benign positional vertigo) 08/02/2015 Chronic pain of both knees 05/24/2020 Seeing Ortho: Dr. Whiteside Coronary artery 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 08/02/2015 Not seeing cardiology Degenerative disc disease, lumbar 05/26/2018 Elevated hemoglobin (HCC) 04/17/2020 to be rechecked 05/17/2020 Elevated hemoglobin A1c 12/30/2017 Epidermal inclusion cyst 09/09/2019 anterior chest wall excised 08/2019 Essential hypertension 01/26/2017 GERD without esophagitis 07/08/2022 Graves disease Heart attack (HCC) [facility] stent in heart History of COVID-19 07/08/202205/2022 History of non-ST elevation myocardial infarction (NSTEMI) 01/19/201001/2010 Intradermal nevus 12/30/2014 right inferrior medial breast Keratosis, inflamed seborrheic 12/30/2014 right upper back Left carpal tunnel syndrome 01/04/[address] 12/03/2021 Daughter Truong is DPOA Low vitamin B12 level 04/06/2014 Lumbar radicular pain 05/26/2018 Added automatically from request for surgery [id number] Lump or mass in breast 01/20/2023 Patient [...] 2D ECHO (EXEP) 12/21/2019 EF=60%, 1+ TI, AR, AI 2D ECHO (EXEP) 02/17/2021 EF= 60%, [...] Other: See Comments Dehydrated, nauseated and week Mary Inhibitors Cough Chantix [Vareniclin* Other: See Comments [...] as needed for pain for up to 90days. cephALEXin (KEFLEX) 500 mg capsule Take 500 mg by mouth three times a day. (Patient not taking: Reported on 01/10/2024) cephALEXin (KEFLEX) 500 mg capsule (Patient not taking: Reported on 01/10/2024) celecoxib (CELEBREX) 200 mg capsule Take 1 capsule by mouth two times a day. amLODIPine (NORVASC) 5 mg tablet Take 1 tablet by mouth once daily. levothyroxine (LEVOXYL) 137 mcg tablet Take one tab by mouth once a day Wed-Wed and none on Wednesday.Take on empty stomach. For Thyroid. metoprolol succinate [...] mouth twice daily. Started in ER 05/2023 ondansetron orally disintegrating (ZOFRAN ODT) 4 mg disintegrating tablet Take 1 tablet by mouth every 6 hours as needed for nausea/vomiting. fluticasone propionate (FLOVENT DISKUS) 100 mcg/actuation inhaler Inhale 1 Puff as instructed twicedaily. albuterol HFA (PROVENTIL HFA, VENTOLIN HFA) 90 [...] Types: Cigarettes Quit date: 04/08/2022 Years since quittin.8 Smokeless tobacco: Never Tobacco comments: 3 cigarettes [...] neck swelling RESPIRATORY: Negative for cough, hemoptysis, increased wheezing, COPD, dyspnea or shortness of breath CARDIOVASCULAR: Negative for chest pain, leg swelling, hypertension, CHF or palpitations GI: No nausea, vomiting, or diarrhea, No heartburn or reflux symptoms, and no blood : No history of dysuria, frequency or blood MUSCULOSKELETAL: chronic pain has been stable. See HPI SKIN: Negative for lesions, rash, and itching PSYCH: Negative for sleep disturbance, mood disorder and recent psychosocial stressors HEMATOLOGY/LYMPHOLOGY: Negative for prolonged bleeding, bruising easily or swollen nodes ENDOCRINE: Negative for cold or heat intolerance, polyuria, polydipsia and goiter NEURO: No history of headaches, syncope, paralysis, seizures or tremors EXAM: BP 138/68 (BP Site: Left Arm, BP Position: Sitting, BP Cuff Size: Regular Adult) Pulse 70 Resp 16 Wt 77.6 kg (171 lb) BMI 30.29 kg/m Last 5 Encounter Wt Readings: Date: Wt: 01/26/2024 77.6 kg (171 lb) 12/21/2023 78 kg (172 lb) 12/08/2023 77.6 kg (171 lb) 11/29/2023 76.2 kg (168 lb) 10/22/2023 76.7 kg (169 lb) General Appearance: Well appearing, alert, in no acute distress, well-hydrated, well nourished.. Skin: Skin color, texture, turgor normal, no suspicious rashes or lesions. Head: Normocephalic, no masses, lesions, tenderness or abnormalities. Eyes: slight jaundice in sclera. Looks similar to a few weeks ago. Pupils are equally round and reactive to light. Extraocular movements are intact. . Ears: External ears, TM's normal, canals clear. Nose/Sinuses: Nares normal, septum midline, mucosa normal, no drainage or sinus tenderness. Oropharynx: Lips, mucosa, and tongue normal, teeth and gums normal, oropharynx normal. Neck: Supple, no adenopathy; thyroid symmetric, normal size, no bruits. Lungs: Lungs clear to auscultation. No wheezing, rhonchi, rales.. Heart: RRR without murmur, gallop, or rubs. No ectopy. Abdomen: Normal abdominal exam, Abdomen soft, non-tender. Bowel sounds normal. No masses, organomegaly. Extremities: No deformities, edema, skin discoloration. Good capillary refill. . Musculoskeletal: Spine range of motion normal. Muscular strength intact, No joint swelling, deformity, or tenderness. Peripheral Pulses: Normal. Neurologic: Gait normal. Reflexes normal and symmetric. Sensation to light touch and crainal nerves2-12 intact.. Health Maintenance List Advance Directive Discussion due on 11/08/2023 LDL Cholesterol due on 12/21/2024 Diabetes Screening due on 12/31/2026 DTaP,Tdap,Td Vaccine(2 - Td or Tdap) due on 04/22/2033 Bone Density Screening Completed Spirometry Completed Influenza Vaccine Completed RSV Vaccine Completed Shingrix Vaccine Completed Covid-19 Vaccine Completed Pneumococcal Vaccine: 65+ Completed Colorectal Cancer Screening Discontinued Data reviewed Latest Ref Rng 01/12/2023 07/06/2023 12/21/2023 12/31/2023 WBC 3.70 - 11.00 k/uL 9.70 9.37 RBC 3.90 - 5.20 m/uL 4.84 4.82 Hemoglobin 11.5 - 15.5 g/dL 14.0 13.9 Hematocrit 36.0 - 46.0 % 43.0 43.8 MCV 80.0 - 100.0 fL 88.8 90.9 MCH 26.0 - 34.0 pg 28.9 28.8 MCHC 30.5 - 36.0 g/dL 32.6 31.7 RDW-CV 11.5 - 15.0 % 14.2 14.4 Platelet Count 150 - 400 k/uL 251 278 MPV 9.0 - 12.7 fL 10.3 10.8 Neut% % 76.0 65.3 Abs Neut (ANC) 1.45 - 7.50 k/uL 7.37 6.11 Lymph% % 13.5 22.2 Abs Lymph 1.00 - 4.00 k/uL 1.31 2.08 Montague% % 6.7 6.7 Abs [place] <0.87 k/uL 0.65 0.63 Eosin% % 3.1 5.0 Abs Eosin <0.46 k/uL 0.30 0.47 (H) Baso% % 0.5 0.6 Abs Baso <0.11 k/uL 0.05 0.06 Immature Gran % % 0.2 0.2 IMMATURE GRANS (ABS) <0.10 k/uL <0.03 <0.03 NRBC /100 WBC 0.0 0.0 Absolute nRBC <0.01 k/uL <0.01 <0.01 DTYPE Auto Auto Color Yellow Yellow Yellow Clarity Clear Clear Clear Glucose, Urine Negative Negative Negative Bilirubin, Urine Negative Negative Negative Ketones, Urine Negative Negative Trace ! Specific [place], Ur 1.005 - 1.030 1.030 1.025 Hemoglobin/Blood,Ur Negative Negative Negative pH, Urine <8.5 6.0 6.5 Protein, Urine Negative 1+ ! 1+ ! Urobilinogen 0.2-1.0 EU/dL Negative 1.0 EU/dL Nitrites Negative Negative Negative Leukest Negative 75 Robert/uL ! Negative WBC, Urine 0-5 /HPF 6-10 /HPF ! 0-5 /HPF RBC, Urine 0-2 /HPF 0-3 /HPF 0-2 /HPF Bacteria Negative /HPF Rare ! Negative Epithelial Cells /HPF Few Moderate Non-Squamous Epithelial Cells None Seen /HPF Few ! Hyaline Cast 0 /LPF 1-3 /LPF ! 0 /LPF Protein, Total 6.3 - 8.0 g/dL 6.6 6.8 Albumin 3.9 - 4.9 g/dL 4.0 4.0 Calcium 8.5 - 10.2 mg/dL 9.1 9.5 9.0 9.1 Bilirubin, Total 0.2 - 1.3 mg/dL 0.5 0.4 Alkaline Phosphatase 34 - 123 U/L 50 51 AST 13 - 35 U/L 14 17 ALT 7 - 38 U/L 6 (L) 10 Glucose 74 - 99 mg/dL 88 94 91 95 BUN 7 - 21 mg/dL 27 (H) 20 23 (H) 24 (H) Creatinine 0.58 - 0.96 mg/dL 1.02 (H) 0.99 (H) 1.12 (H) 1.07 (H) Sodium 136 - 144 mmol/L 139 138 139 137 Potassium 3.7 - 5.1 mmol/L 4.3 4.6 5.3 (H) 4.9 Chloride 97 - 105 mmol/L 101 102 101 103 CO2 22 - 30 mmol/L 27 28 28 29 Anion Gap 9 - 18 mmol/L 11 8 (L) 10 5 (L) eGFR >=60 mL/min/1.73m 55 (L) 57 (L) 49 (L) 52 (L) Cholesterol, Total <200 mg/dL 167 Triglyceride <150 mg/dL 104 HDL Cholesterol >39 mg/dL 56 Non HDL Cholesterol <130 mg/dL 111 Fasting Time hrs 12 VLDL Cholesterol <30 mg/dL 21 TC:HDL Ratio <5.10 2.98 LDL Cholesterol <100 mg/dL 90 LDL:HDL Ratio <2.54 1.61 Total Cholesterol, Nonfasting <200 mg/dL 141 Triglycerides, Nonfasting <150 mg/dL 91 HDL Cholesterol, Nonfasting >39 mg/dL 52 LDL Cholesterol, Nonfasting <100 mg/dL 71 Non HDL Cholesterol, Nonfasting <130 mg/dL 89 VLDL Cholesterol, Nonfasting <30 mg/dL 18 Total Chol/HDL Ratio, Nonfasting <5.10 mg/dL 2.71 LDL/HDL Ratio, Nonfasting <2.54 mg/dL 1.37 Hemoglobin A1C 4.3 - 5.6 % 5.7 (H) 5.9 (H) 5.8 (H) Estimated Average Glucose mg/dL 117 123 120 Vitamin B12 232 - 1,245 pg/mL 284 361 371 TSH 0.270 - 4.200 mIU/L 0.348 4.550 (H) 0.644 Magnesium 1.7 - 2.3 mg/dL 1.8 2.0 Bilirubin, Conjug <0.2 mg/dL <0.2 A/P ASSESSMENT/PLAN: 1. Medicare annual wellness visit, subsequent - ICD9: V70.0, ICD10: Z00.00 (primary diagnosis) - Counseled on healthy diet and regular exercise - Calcium intake with supplements or by diet of 1000 mg/day for under 50, 1200- 1500 mg/day for 50+ - Discussed need and benefit for weight loss. BMI 30.29 kg/(m^2) - Follow up for annual exam in one year 2. Essential hypertension - ICD9: 401.9, ICD10: I10 - Controlled - Continue current medications - Recommend home blood pressure monitoring, to bring results to next visit - Encouraged sodium restriction, DASH or Mediterranean diet - Recommend regular aerobic exercise - Discussed need for and benefit of weight loss. BMI 30.29 kg/(m^2) 3. Mixed hyperlipidemia - ICD9: 272.2, ICD10: E78.2 - Controlled - Continue current medications - Counseled on healthy diet and regular exercise 4. Elevated hemoglobin A1c - ICD9: 790.29, ICD10: R73.09 - controlled with life style. 5. Acquired hypothyroidism - ICD9: 244.9, ICD10: E03.9 - Instructed patient on importance of taking on an empty stomach either first thing in the morning or at bedtime. - continue current dose of Synthroid 6. Elevated hemoglobin (HCC) - ICD9: 282.7, ICD10: D58.2 - last labs were normal. 7. GERD without esophagitis - ICD9: 530.81, ICD10: K21.9 - Continue treatment with Prilosec 40 mg QD 8. Stage 3a chronic kidney disease (HCC) - ICD9: 585.3, ICD10: N18.31 - eGFR: 52 Stable - Counseled on avoiding NSAIDs, adequate hydration - ACEi/ARB prescribed: Yes 9. Pulmonary emphysema, unspecified emphysema type (HCC) - ICD9: 492.8, ICD10: J43.9 - stable. No changes. 10. Coronary artery 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 - ICD9: 414.00, 414.3, ICD10: I25.10, I25.83 - stable and managed per cardio 11. Bilateral carotid artery stenosis - ICD9: 433.10, 433.30, ICD10: I65.23 - cont current [place]. 12. Recurrent major depressive disorder, in partial remission (HCC) - ICD9: 296.35, ICD10: F33.41 - stable with Tx. 13. Anxiety - ICD9: 300.00, ICD10: F41.9 - as per #12 14. Low vitamin B12 level - ICD9: 790.6, ICD10: R79.89 - controlled with replacement 15. Obesity, Class I, BMI 30-34.9 - ICD9: 278.00, ICD10: E66.9 - stable 16. Ex-smoker - ICD9: V15.82, ICD10: Z87.891 - patient stopped 11/2023 17. Arthritis of both knees - ICD9: 716.96, ICD10: M17.0 Check - TOX SCREEN ROUT UR - PAIN PANEL, UR QUANT - PAIN PANEL, UR QUANT - SPECIMEN VALIDITY, URINE Substance agreement updated. 18. Advance directive discussed with patient - ICD9: V65.49, ICD10: Z71.89 - up to date 19. Severe obstructive sleep apnea AHI 32.5 - ICD9: 327.23, ICD10: G47.33 - wearing CPAP nightly with benefit. 20. Osteoarthritis, unspecified osteoarthritis type, unspecified site - ICD9: 715.90, ICD10: M19.90 - cont current management 21. Jaundice - ICD9: 782.4, ICD10: R17 Check - HEPATIC FUNCTION PNL 22. Medication management - ICD9: V58.69, ICD10: Z79.899 Check - TOX SCREEN ROUT UR - PAIN PANEL, UR QUANT - PAIN PANEL, UR QUANT - SPECIMEN VALIDITY, URINE Requested Prescriptions Signed Prescriptions Disp Refills metoprolol succinate ER (TOPROL XL) 100 mg 90 tablet 1 Sig: Take 1 tablet by mouth once daily. citalopram (CELEXA) 40 mg tablet 90 tablet 1 Sig: Take 1 tablet by mouth once daily. losartan (COZAAR) 100 mg tablet 180 tablet 1 Sig: Take 1 tablet by mouth two times a day. omeprazole (PRILOSEC) 40 mg capsule 180 capsule 1 Sig: Take 1 capsule by mouth two times a day. rosuvastatin (CRESTOR) 5 mg tablet 90 tablet 1 Sig: Take 1 tablet by mouth once daily. amLODIPine (NORVASC) 5 mg tablet 90 tablet 1 Sig: Take 1 tablet by mouth once daily. nitroglycerin sublingual (NITROQUICK) 0.4 mg SL tablet 25 tablet 6 Sig: Dissolve 1 tablet under the tongue every 5 minutes as needed. F/u 6 months routine check BMP, A1c and TSH prior and 3 months pain meds. F/u 4 months bilateral knee injections I spent a total of 47 minutes on the date of the service which included preparing to see the patient, [id number] patient care, completing clinical documentation, performing a medically appropriate examination, counseling and educating the patient/family/caregiver and ordering medications, tests, or procedures. Max Rodriguez MD documented in this encounterL[facility]03-14-[facility]24 History of Present illness Narrative* Orly Richardson LPN - 01/20/2024 2:04 PM EDT Pt has Medicare Wellness appointment 01/26/24 Scan on 01/18/2024 3:15 PM by Provider, External, VIN: Echo documented in this encounterLuther[facility]03-04-2024 History of Present illness Narrative* Bob Whiteside MD - 01/10/2024 11:21 AM ESTAssociated Order(s): Large Joint Arthro/Inj: bilateral knee joints Post-Procedure Diagnose(s): Chronic pain of both knees; Primary osteoarthritis of both knees Bob Whiteside MD Department of Orthopaedics Orthopaedics [address] [facility] [address] Dept: [phone] Dept January 10, 2024 CHIEF COMPLAINT: Established Patient and Injections of the Left Knee and Established Patient and Injections of the Right Knee. HPI Patient presents with: Left Knee - Established Patient, Injections Right Knee - Established Patient, Injections AMB ROOMING INTAKE FLOWSHEET DATA Pain Pain Level: 5 Pain Location: Other: See Comment (bilateral knees) Duration Units: Years Frequency: Continuous Intervention/Comfort measure: Medication Comments: injections Pt here for bilateral knee injections. C/O pain for years. Denies falls. ASSESSMENT: M25.561, M25.562, G89.29 Chronic pain of both knees (primary encounter diagnosis) M17.0 Primary osteoarthritis of both knees SUMMARY/PLAN: Injections. Large Joint Arthro/Inj: bilateral knee joints Informed Consent Consent Obtained: Verbal [place] Protocol A moment to CARE was completed. [...] assessment and interventions applicable. No implant(s) inserted. 01/10/2024 11:44 AM The procedure site was prepped in [...] as needed for pain for up to 90days. celecoxib (CELEBREX) 200 mg capsule Take 1 capsule by mouth two times a day. amLODIPine (NORVASC) 5 mg tablet Take 1 tablet by mouth once daily. levothyroxine (LEVOXYL) 137 mcg tablet Take one tab by mouth once a day Wed-Wed and none on Wednesday.Take on empty stomach. For Thyroid. metoprolol succinate [...] mouth twice daily. Started in ER 05/2023 ondansetron orally disintegrating (ZOFRAN ODT) 4 mg disintegrating tablet Take 1 tablet by mouth every 6 hours as needed for nausea/vomiting. fluticasone propionate (FLOVENT DISKUS) 100 mcg/actuation inhaler Inhale 1 Puff as instructed twicedaily. albuterol HFA (PROVENTIL HFA, VENTOLIN HFA) 90 mcg/actuation inhaler Inhale 2 Puffs as instructed every 4 hours as needed. nitroglycerin sublingual (NITROQUICK) 0.4 mg SL tablet Dissolve 1 tablet under the tongue every 5 minutes as needed. aspirin, enteric coated (ASPIRIN, ENTERIC COATED) 81 mg EC tablet Take 81 mg by mouth once daily. cephALEXin (KEFLEX) 500 mg capsule Take 500 mg by mouth three times a day. (Patient not taking: Reported on 01/10/2024) cephALEXin (KEFLEX) 500 mg capsule (Patient not taking: Reported on 01/10/2024) No current facility-administered medications for this visit. Allergies: Iodine, Hctz [Thiazides], Mary Inhibitors, Chantix [Varenicline], Lipitor [Atorvastatin Calcium], Mucinex [Guaifenesin], Pravachol [Pravastatin Sodium], and Zanaflex [Tizanidine] Bob Whiteside MD documented [facility]24 Miscellaneous Notes* Telephone Encounter - Orly Richardson LPN - 01/07/2024 10:21 AM EST Patient has been identified by name and date of : Yes, Provider Dr Rodriguez Date 01/07/24 Time 10:21 am Patient phones for refill(s): Requested Prescriptions Pending Prescriptions Disp Refills traMADol (ULTRAM) 50 mg tablet 270 tablet 0 Sig: Take 1 tablet by mouth every 8 hours as needed for pain for up to 90 days. Date of last office visit in primary care: 12/21/2023 Date of next office visit in primary care: 01/26/2024 Please advise. Thank you. Orly Richardson LPN. documented in this [facility]02-16-2024 Miscellaneous Notes* Telephone Encounter - Katherin Schmidt MA - 12/24/2023 4:13 PM EST Spoke with daughter and gave her results and instructions. They are going to come to Dr.Pierce Anna and will get labs then. Katherin Schmidt MA * Telephone Encounter - Max Rodriguez MD - 12/24/2023 3:45 PM EST Let daughter know Pat's potassium is still elevated but improved. She is not on any meds to cause this. Make sure she is not taking any OTC form of potassium. Her hydration is improved but could still be better. Want to repeat lab next Wednesday. Order placed,. documented in this [facility]02-14-2024 Miscellaneous Notes* Telephone Encounter - Savannah Lockett RN - 12/22/2023 9:15 AM EST Pt and daughter are called and is notified of providers results and instructions. They voice understanding. Savannah Lockett, RN * Telephone Encounter - Max Rodriguez MD - 12/21/2023 8:08 PM EST Let daughter know Pat's liver functions and blood count were ok. Her potassium was slightly high and she appears dehydrated. Encourage increased water intake daily.Want to repeat electrolyte panel on . Order placed documented in this [facility]02-13-2024 Miscellaneous Notes* Telephone Encounter - Katherin Schmidt MA - 12/21/2023 4:48 PM EST Faxed. Katherin Schmidt MA * Telephone Encounter - Max Rodriguez MD - 12/21/2023 3:27 PM EST Order signed. * Telephone Encounter - Katherin Schmidt MA - 12/21/2023 12:56 PM EST Patient is scheduled on 01/10/2024 for [facility] Cardiac at [facility]. Referral placed. Order given to PCP to sign. Katherin Schmidt MA documented in this encounterLuther[facility]02-13-2024 History of Present illness Narrative* Max Rodriguez MD - 12/21/2023 9:39 AM EST Chief Complaint Patient presents with: ED Follow-up HPI Anne Marie Garza is a 83 year old female who presents here today for ER Follow Up.. Daughter indicated that patient was feeling dizziness all day so she contacted our office and triage nurse indicated to take her the ER. Per daughter ER reported that patient's eyes were yellow as well, jaundice. She did have a UTI and culture came back and was placed on Keflex 500 mg TID for 7 days. Still completing the antibiotic. Still getting occasional dizziness. However it is less often andnot lasting as long. Can not say if position related. Patient did see pulm and they have ordered a 2D echo. They want her to do a walking test. They alsoadvised getting her into cardio but the appt is not till 01/21/2024. Their thinking of holding off on the walking test till they see cardio. Patient continues to get very short of breat with ambulation, will get dizzy, diaphoretic and nauseated. She denies chest pressure or heaviness. No arm pain. Has a Hx of CAD. Past medical history, appointments, medications, allergies reviewed. Previous Medical History PAST MEDICAL HISTORY Diagnosis Date Acquired hypothyroidism 08/02/2015 Advance directive discussed with patient 01/20/2023 Discussed 01/2023: Up to date Anxiety Anxiety 01/19/2010 -continue home citalopram BPV (benign positional vertigo) 08/02/2015 Chronic pain of both knees 05/24/2020 Seeing Ortho: Dr. Whiteside Coronary artery 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 08/02/2015 Not seeing cardiology Degenerative disc disease, lumbar 05/26/2018 Elevated hemoglobin (HCC) 04/17/2020 to be rechecked 05/17/2020 Elevated hemoglobin A1c 12/30/2017 Epidermal inclusion cyst 09/09/2019 anterior chest wall excised 08/2019 Essential hypertension 01/26/2017 GERD without esophagitis 07/08/2022 Graves disease Heart attack (HCC) [facility] stent in heart History of COVID-19 07/08/202205/2022 History of non-ST elevation myocardial infarction (NSTEMI) 01/19/201001/2010 Intradermal nevus 12/30/2014 right inferrior medial breast Keratosis, inflamed seborrheic 12/30/2014 right upper back Left carpal tunnel syndrome 01/04/[address] 12/03/2021 Daughter Truong is DPOA Low vitamin B12 level 04/06/2014 Lumbar radicular pain 05/26/2018 Added automatically from request for surgery [id number] Lump or mass in breast 01/20/2023 Patient [...] Recurrent major depressive disorder, in partial remission ([facility]) 04/14/2016 Severe obstructive sleep apnea AHI 32.5 [...] 2D ECHO (EXEP) 12/21/2019 EF=60%, 1+ TI, AR, AI 2D ECHO (EXEP) 02/17/2021 EF= 60%, [...] Other: See Comments Dehydrated, nauseated and week Mary Inhibitors Cough Chantix [Vareniclin* Other: See Comments Bad dreams Lipitor [Atorvastat* Other: See Comments Muscle pains Mucinex [Guaifenesi* Mental Status Change dizziness and confusion Pravachol [Pravasta* Other: See Comments Muscle aches Zanaflex [Tizanidin* Other: See Comments Caused pt to feel jittery all over Current Medications Current Outpatient Medications on File Prior to Visit Medication Sig cephALEXin (KEFLEX) 500 mg capsule Take 500 mg by mouth three times a day. celecoxib (CELEBREX) 200 mg capsule Take 1 capsule by mouth two times a day. amLODIPine (NORVASC) 5 mg tablet Take 1 tablet by mouth once daily. levothyroxine (LEVOXYL) 137 mcg tablet Take one tab by mouth once a day Wed-Wed and none on Wednesday.Take on empty stomach. For Thyroid. traMADol (ULTRAM) 50 mg tablet Take 1 tablet by mouth every 8 hours as needed for pain for up to 90days. metoprolol succinate ER (TOPROL XL) 100 mg [...] mouth twice daily. Started in ER 05/2023 ondansetron orally disintegrating (ZOFRAN ODT) 4 mg disintegrating tablet Take 1 tablet by mouth every 6 hours as needed for nausea/vomiting. fluticasone propionate (FLOVENT DISKUS) 100 mcg/actuation inhaler Inhale 1 Puff as instructed twicedaily. albuterol HFA (PROVENTIL HFA, VENTOLIN HFA) 90 mcg/actuation inhaler Inhale 2 Puffs as instructed every 4 hours as needed. nitroglycerin sublingual (NITROQUICK) 0.4 mg SL tablet Dissolve 1 tablet under the tongue every 5 minutes as needed. aspirin, enteric coated (ASPIRIN, ENTERIC COATED) 81 mg EC tablet Take 81 mg by mouth once daily. cephALEXin (KEFLEX) 500 mg capsule No current facility-administered medications on file prior [...] of Symptoms REVIEW OF SYSTEMS See HPI - no ear pain or feeling of being blocked. - no nausea, vomiting or diarrhea. Has had a URI since about last . This was two days after the ER visit. Has a cough productive of light brown mucus. No blood. Has her usual runny nose. EXAM: BP 136/70 (BP Site: Left Arm, BP Position: Sitting, BP Cuff Size: Large Adult) Pulse (!) 52 Temp 36.2 C (97.2 F) Resp 16 Wt 78 kg (172 lb) SpO2 93% BMI 30.47 kg/m General Appearance: Well appearing, alert, in no acute distress, well-hydrated, well nourished. andOverweight. Eyes: Pupils are equally round. Extraocular movements are intact. Sclera is slightly jaundiced. . Ears: External ears, TM's normal, canals clear. Nose/Sinuses: Nares normal, septum midline, mucosa normal, no drainage or sinus tenderness. Oropharynx: Lips, mucosa, and tongue normal, teeth and gums normal, oropharynx normal. Neck: Supple, no adenopathy; thyroid symmetric, normal size, no bruits. Lungs: Lungs clear to auscultation. No wheezing, rhonchi, rales.. Heart: RRR without murmur, gallop, or rubs. No ectopy. Abdomen: Normal abdominal exam, Abdomen soft, non-tender. Bowel sounds normal. No masses, organomegaly. Extremities: No deformities, edema, skin discoloration, Health Maintenance List Advance Directive Discussion due on 11/08/2023 LDL Cholesterol due on 01/13/2024 Diabetes Screening due on 07/06/2026 DTaP,Tdap,Td Vaccine(2 - Td or Tdap) due on 04/22/2033 Bone Density Screening Completed Spirometry Completed Influenza Vaccine Completed RSV Vaccine Completed Shingrix Vaccine Completed Covid-19 Vaccine Completed Pneumococcal Vaccine: 65+ Completed Colorectal Cancer Screening Discontinued Data reviewed : ER report and studies from [facility]. A/P ASSESSMENT/PLAN: 1. Coronary artery 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 - ICD9: 414.00, 414.3, ICD10: I25.10, I25.83 (primary diagnosis) Check - NM CARDIAC PERF STRESS/PHARM - REGADENOSON 0.4 MG/5 ML INTRAVENOUS SYRINGE - AMINOPHYLLINE 250 MG/10 ML INTRAVENOUS SOLUTION - METOPROLOL TARTRATE 5 MG/5 ML INTRAVENOUS SOLUTION - INSERT IV ([place]) - IV DISCONTINUE 2. Decreased stamina - ICD9: 780.79, ICD10: R53.83 Check - NM CARDIAC PERF STRESS/PHARM - REGADENOSON 0.4 MG/5 ML INTRAVENOUS SYRINGE - AMINOPHYLLINE 250 MG/10 ML INTRAVENOUS SOLUTION - METOPROLOL TARTRATE 5 MG/5 ML INTRAVENOUS SOLUTION - INSERT IV ([place]) - IV DISCONTINUE 3. HATFIELD (dyspnea on exertion) - ICD9: 786.09, ICD10: R06.09 Check - NM CARDIAC PERF STRESS/PHARM - REGADENOSON 0.4 MG/5 ML INTRAVENOUS SYRINGE - AMINOPHYLLINE 250 MG/10 ML INTRAVENOUS SOLUTION - METOPROLOL TARTRATE 5 MG/5 ML INTRAVENOUS SOLUTION - INSERT IV ([place]) - IV DISCONTINUE - advised patient to complete the walk test that Jamie wants her to do. 4. Dizziness - ICD9: 780.4, ICD10: R42 Check - CBC + DIFF - NM CARDIAC PERF STRESS/PHARM - REGADENOSON 0.4 MG/5 ML INTRAVENOUS SYRINGE - AMINOPHYLLINE 250 MG/10 ML INTRAVENOUS SOLUTION - METOPROLOL TARTRATE 5 MG/5 ML INTRAVENOUS SOLUTION - INSERT IV ([place]) - IV DISCONTINUE - US CAROTID ARTERIES [facility] 5. Jaundice - ICD9: 782.4, ICD10: R17 Check - HEPATIC FUNCTION PNL - CBC + DIFF With patient's emphysema and dizziness she can no do a treadmill stress test. She will not be able to complete it and has increased risk of falling. Using a walker to aid with balance. Max Rodriguez MD documented in this encounterLuther[facility] Hospital02-08-2024 History of Present illness Narrative* Orly Richardson LPN - 12/16/2023 11:18 AM EST Pt has appointment with pcp 12/21/23 Scan on 12/16/2023 10:38 AM by Provider, External, HIRALC: Consultation - Pulmonary documented in this encounterLuther[facility] Hospital02-06-2024 Miscellaneous Notes* Telephone Encounter - Max Rodriguez MD - 12/14/2023 12:24 PM EST Noted. * Telephone Encounter - Katherin Schmidt MA - 12/14/2023 11:52 AM EST Received ER paperwork from [facility]. Contacted daughter and scheduled for a er follow up on 12/21/2023. Paperwork given to PCP for review. Waiting on Culture results from [facility]. Daughter mentioned that cannot get her mother to drink enough fluids. She doesn't like water. I suggested maybe getting a flavor (drops) in the water might help. Katherin Schmidt MA documented in this encounterLutheran Hospital02-05-2024 Discharge summary Author Flavio Echavarria [facility] December 13, 2023 10:40pm Note Date/Time December 13, 2023 7 :03pm [facility] Medical Records Department [address] [place] [address] Emergency Department Summary 12/13/23 MR#: [id number] Acct: [id number] Name: ANNE MARIE GARZA Rep #:[id number] : 1940 83 From: Flavio Echavarria MD PCP: Dr. Max Rodriguez MD Status:REG ER Location: ED HPI History of Present Illness Chief Complaint: Dizziness Informant: patient and family Narrative Narrative: Patient presents with a generalized dizziness and weakness. I talked with her and her daughter. It sounds like the patient has been having more breathing problems progressively over the last year or so. The daughter thinks this is really worsened in the last 6 weeks. It sounds like she has a history of emphysema and uses a rescue inhaler on occasion. But she gets winded with exertion and that is just getting a lot worse. She states when she tries to do things she will get kind of lightheaded. No focal weakness. No true vertigo. No chest pain or pressure. She has a lot of joint pains but those are not new or different. No hemoptysis. She is not on blood thinners. [facility] Medical History Anxiety and depression Atherosclerosis of coronary artery of [place] heart without angina pectoris CAD (coronary artery disease) Chronic diastolic (congestive) heart failure COPD (chronic obstructive pulmonary disease) Essential hypertension Graves disease Heart attack History of non-ST elevation myocardial infarction (NSTEMI) (12/21/19) HLD (hyperlipidemia) Hypothyroidism Left ventricular diastolic dysfunction Nicotine dependence Obesity MATT (obstructive sleep apnea) Osteoarthritis Personal history of colonic polyps Tobacco abuse Trigger middle finger of left hand Vertigo Home Medications aspirin 81 mg chewable tablet 81 mg PO DAILY@0800 heart health 05/07/20 [History Last Taken 05/06/20] rosuvastatin 5 mg tablet 5 mg PO DAILY cholesterol 05/07/20 [History Last Taken 05/06/20] metoprolol succinate 100 mg tablet,extended release 24 hr 100 mg PO DAILY heart 12/05/21 [History Last Taken Unknown] losartan 100 mg tablet 100 mg PO BID bp 01/28/22 [History Last Taken Unknown] tramadol 50 mg tablet 50 mg PO Q12H PRN Pain Score 1-10 01/28/22 [History Last Taken Unknown] citalopram 40 mg tablet 40 mg PO DAILY 01/29/22 [History Last Taken Unknown] levothyroxine 125 mcg tablet 125 mcg PO DAILY 01/29/22 [History Last Taken Unknown] omeprazole 40 mg capsule,delayed release 40 mg PO BID 01/29/22 [History Last Taken Unknown] albuterol sulfate 90 mcg/actuation aerosol inhaler 2 puff inhalation Q4H #8.5 grams 05/15/22 [Rx Last Taken Unknown] amlodipine 5 mg tablet 5 mg PO DAILY 12/13/23 [History Last Taken Unknown] Allergy/AdvReac Type Severity Reaction Status Date / Time iodine Allergy Severe Angioedema Verified 12/13/23 18:06 guaifenesin [From Mucinex] Allergy Mild Other Verified 12/13/23 18:06 ticagrelor [From Brilinta] AdvReac Severe Shortness Verified 12/13/23 18:06 of breath varenicline [From Chantix] AdvReac Severe Other Verified 12/13/23 18:06 Family History Father CAD (coronary artery disease) Prostate cancer Brother Alzheimer's disease Daughter Breast cancer Daughter Breast cancer Surgical History History of coronary artery stent placement (12/21/19) Social History Smoking Status: Current every day smoker tobacco type: e-cigarettes Tobacco: How many years used: 45 Electronic Cigarette Use: with nicotine second hand exposure: No alcohol intake: current alcohol intake frequency: a few times a week substance use type: does not use ROS ROS ED ROS Narrative A complete review of systems was performed and is negative except as documented in the history of present illness. Some specific details below. Constitutional: No recent fevers or chills. Patient and the rest of the family had COVID around [place] but all seem to do okay with it. EYE: No discharge, visual complaints, or pain. ENT: No difficulty swallowing. No swelling. No pain. No reflux symptoms. CV: She denies actual chest pain. Respiratory: See history of present illness. GI: No abdominal pain. No nausea vomiting diarrhea. No blood in stool. : No frequency dysuria or hematuria. She denies any change in urine. Musculoskeletal: No recent trauma. No pains. No swelling. Skin: No rash. Nondiaphoretic. Neuro: No weakness or numbness. Endocrine: No polyuria or polydipsia. EXAM Physical Exam Narrative Exam Narrative: CONSTITUTIONAL: Patient is nontoxic in appearance. The patient looks comfortable. Work of breathing looks normal sitting in bed. Patient denies actual dizziness right now.. HEENT: No notable trauma. Mucous membranes moist. No sinus tenderness. EYES: No conjunctival injection. No pallor. NECK:No JVD. No stridor. CARDIOVASCULAR: Mildly bradycardic rate. Regular rhythm. No notable murmur. No JVD. RESPIRATORY: No respiratory distress. Breathing is unlabored. No wheezes. No rhonchi. No rales. No pain with a deep breath. No chest wall tenderness. Overall her lung sounds good. She is nonhypoxic just sitting in bed. Saturations are normal at 95% on room air. We will walk her to check for desaturation. The daughter is very concerned that her oxygen level drops with any activity. GASTROINTESTINAL: Not distended. Bowel sounds are normal. No tenderness. No guarding. No rebound. No palpable mass. No bruit is heard. GENITOURINARY: No tenderness over the bladder. No CVA tenderness. MUSCULOSKELETAL: Atraumatic. No peripheral edema. No cord. No tenderness along the deep venous system. No asymmetry. No distended veins. NEUROLOGICAL: Patient is alert and appropriate. No focal deficit noted. By history she has no focal deficit either. SKIN: No noted rashes. No diaphoresis. PSYCHIATRIC: Patient is calm. Mood is appropriate. Const Vital Signs: 12/13/23 18:06 12/13/23 19:18 12/13/23 19:18 Temperature 96.7 F L Temperature Source Temporal Pulse Rate 53 L 49 L Respiratory Rate 18 23 H Blood Pressure 136/65 H 122/74 H Blood Pressure Mean 88 90 Pulse Ox 95 94 94 Oxygen Delivery Method Room Air Room Air Room Air 12/13/23 21:08 12/13/23 22:05 Temperature Temperature Source Pulse Rate 61 52 L Respiratory Rate 22 H 18 Blood Pressure 123/53 H 137/56 H Blood Pressure Mean 76 83 Pulse Ox 95 94 Oxygen Delivery Method Room Air Room Air MDM MDM MDM Narrative Medical decision making narrative: Patient's CBC is normal. Patient's electrolytes show no marked abnormalities. She has some mild baselinerenal dysfunction that is unchanged. Coags are normal. Troponin is negative at 8. My independent interpretation of her chest x-ray shows no acute process final reading is similar. My independent or potation of her CT of the head shows no acute process and final reading is similar. Urine is cloudy with 25-50 white cells 3+ bacteria and nitrites and leukocyte Estrace. I discussed this with the patient and her daughter. Her daughter states this is what her urine looks like every time. She has no symptoms of UTI. Her to send a culture and treat based off of that. Since she has no fevers chills or symptoms of this I think that is reasonable but I did explain that her urine has all findings of an infection. Although urine does not cause specific dizziness. Patient has had this nonspecific dizziness for some time. She has dyspnea on exertion for a long time. She is not having chest pain with this. Her troponin is negative. She used to get relief with albuterol but now it does not seem to help as much. Shehas an appointment with pulmonology in 3 days. She will follow-up with her primary physician after. We discussed reasons to return. I explained that her urine will be cultured and if it is positive they will get a call. Patient has also quit smoking recently. This relieved a lot of her GERD symptoms. She states that is completely gone. She also has quit vaping after she learned that it can be bad. Lab Data Attestation: I reviewed the patient's lab results. Labs: Laboratory Results - last 24 hr 12/13/23 12/13/23 18:20 21:45 WBC 10.3 RBC 4.79 Hgb 13.5 Hct 42.9 MCV 89.6 MCH 28.2 MCHC 31.5 L RDW Std Deviation 46.3 H RDW Coeff of Kal 14.2 Plt Count 315 MPV 10.5 Immature Gran % (Auto) 0.400 Neut % (Auto) 57.0 Lymph % (Auto) 29.1 [place] % (Auto) 8.8 Eos % (Auto) 3.8 Baso % (Auto) 0.9 Absolute Neuts (auto) 5.9 Absolute Lymphs (auto) 2.99 Nucleated RBC % 0 PT 12.3 INR 0.9 APTT 23.5 L Sodium 141 Potassium 3.8 Chloride 106 Carbon Dioxide 29.0 Anion Gap 6 BUN 26 H Creatinine 1.21 H Est GFR (MDRD) Af Amer 55 L Est GFR (MDRD) Non-Af 45 L BUN/Creatinine Ratio 21.5 H Glucose 111 H Calcium 9.2 Troponin I High Sens 8 Urine Color Yellow Urine Clarity Sl. Cloudy Urine pH 6.0 Ur Specific Amado 1.025 Urine Protein 30 H Urine Glucose (UA) Normal Urine Ketones 5 H Urine Occult Blood 10 H Urine Nitrite Positive H Urine Bilirubin Negative Urine Urobilinogen 4 H Ur Leukocyte Esterase 500 H Urine RBC 0-5 SEEN Urine WBC 25-50 SEEN Ur Squamous Epith Cells 0-5 SEEN Urine Bacteria 3+ Urine Mucus 0 SEEN Radiography Diagnostic Testing: Clinical Impression(s) from Imaging Studies Brain CT 12/13/23 20:11 IMPRESSION: Chronic involutional changes of the brain. Electronically Signed: Bob Gonzalez MD at 20:44 EST Reading Location ID and State: [facility] / [place] , Service support , Chest X-Ray 12/13/23 20:12 IMPRESSION: Degenerative changes, as described above. No demonstrated acute cardiopulmonary process. Electronically Signed: Bob Gonzalez MD at 20:34 EST , Discharge Plan Triage Chief Complaint: Dizziness Other Complaint: Confusion ED Provider: Flavio Echavarria Dx/Rx/DC Orders Clinical Impression: Chronic dyspnea Instructions: ED Dyspnea Prescriptions: No Action omeprazole 40 mg capsule,delayed release(DR/EC) 40 mg PO BID citalopram 40 mg tablet 40 mg PO DAILY levothyroxine 125 mcg tablet 125 mcg PO DAILY aspirin 81 MG tablet,chewable 81 mg PO DAILY@0800 rosuvastatin 5 MG tablet 5 mg PO DAILY metoprolol succinate 100 mg tablet extended release 24 hr 100 mg PO DAILY losartan 100 mg tablet 100 mg PO BID tramadol 50 mg tablet 50 mg PO Q12H PRN (Reason: Pain Score 1-10) amlodipine 5 mg tablet 5 mg PO DAILY albuterol sulfate 90 mcg/actuation HFA aerosol inhaler 2 puff inhalation Q4H Qty: 8.5 11RF Primary Care Provider: Max Rodriguez Referrals: Max Rodriguez MD [Primary Care Provider] - 1 Week Activity Restrictions/Additional Instructions: Follow-up with Dr. Nicholas's office on as scheduled. Disposition Disposition: Home, Self Care What to do if you have Problems For any increased pain, shortness of breath, bleeding, nausea or vomiting, chestpain, or any unexpected problems, contact your Primary Care Provider. Call [facility] ([phone]) or report to the closest Emergency Room. Call 911 if necessary. 12/13/23 2240 <Electronically signed by Flavio Echavarria MD> Cosigner Signature (if applicable): CC: Dr. Max Rodriguez MD ~ Signed [facility] Work Phone: 1(935) 286-432302-01-2024 Miscellaneous Notes* Telephone Encounter - Christin Lott LPN - 12/09/2023 2:22 PM EST Left detailed message on identifiable voicemail. * Telephone Encounter - Max Rodriguez MD - 12/09/2023 1:43 PM EST Let daughter know Nery's shoulder x-ray shows mild arthritic changes otherwise normal. documented in this encounterLutheran Hospital01-31-2024 History of Present illness Narrative* Maria L Robles, RT(R) - 12/08/2023 12:10 PM EST Radiology Service Progress Note PATIENT NAME: Anne Marie Garza DATE OF SERVICE: December 08, 2023 TIME: 12:02 PM PATIENT IDENTITY VERIFICATION COMPLETED USING TWO (2) IDENTIFIERS: Name and Date of confirmedby patient verbally. FALL SCREENING: Has the patient had 2 falls in the last year or 1 fall with injury or currently using an Ambulatory Assistive Device (Walker, Cane, Wheelchair, Crutches, etc.)? No PATIENT GENDER DATA: Female. status: : No status: NO. PATIENT RELEVANT IMPLANT DATA REVIEWED: Not Applicable PATIENT PRESENTS WITH AN IMPLANTABLE OR ATTACHED LEAD ENGINEER: No RADIOLOGY DEPARTMENT: General X-ray: Exam(s) Completed: Upper Extremity X- Ray(s): Shoulder, AP / TRUE AP / SUPRA OUTLET right PERIPHERAL IV DATA: Not applicable SIGNED BY: RT Lulú(R) December 08, 2023 12:02 PM documented in this encounterLutheran Hospital12-15-2023 History of Present illness Narrative* Nicole Zhang, INSPECTOR MACHINED PARTS.TOY STUFFER - 10/22/2023 10:54 AM EST Chief Complaint Patient presents with: F/U 3 Month HPI Anne Marie Garza is a 83 year old female [...] of both knees 05/24/2020 Seeing Ortho: Dr. Whiteside Coronary artery 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 08/02/2015 Not seeing cardiology Degenerative disc disease, lumbar 05/26/2018 Elevated hemoglobin (HCC) 04/17/2020 to be rechecked 05/17/2020 Elevated hemoglobin A1c 12/30/2017 Epidermal inclusion cyst 09/09/2019 anterior chest wall excised 08/2019 Essential hypertension 01/26/2017 GERD without esophagitis 07/08/2022 Graves disease Heart attack (HCC) [facility] stent in heart History of COVID-19 07/08/202205/2022 History of non-ST elevation myocardial infarction (NSTEMI) 01/19/201001/2010 Intradermal nevus 12/30/2014 right inferrior medial breast Keratosis, inflamed seborrheic 12/30/2014 right upper back Left carpal tunnel syndrome 01/04/[address] 12/03/2021 Daughter Truong is DPOA Low vitamin B12 level 04/06/2014 Lumbar radicular pain 05/26/2018 Added automatically from request for surgery [id number] Lump or mass in breast 01/20/2023 Patient [...] 2D ECHO (EXEP) 12/21/2019 EF=60%, 1+ TI, AR, AI 2D ECHO (EXEP) 02/17/2021 EF= 60%, [...] Other: See Comments Dehydrated, nauseated and week Mary Inhibitors Cough Chantix [Vareniclin* Other: See Comments [...] once a day Wed-Wed and none on Wednesday.Take on empty stomach. For Thyroid. traMADol (ULTRAM) 50 mg tablet Take 1 tablet by mouth every 8 hours as needed for pain for up to 90days. metoprolol succinate ER (TOPROL XL) 100 mg [...] mcg/actuation inhaler Inhale 1 Puff as instructed twicedaily. albuterol HFA (PROVENTIL HFA, VENTOLIN HFA) 90 mcg/actuation inhaler Inhale 2 Puffs as instructed every 4 hours as needed. cyanocobalamin (VITAMIN B-12) 1,000 mcg tab Take 1 tablet by mouth once daily. (Patient not taking:Reported on 01/20/2023) nitroglycerin sublingual (NITROQUICK) 0.4 mg [...] 29.94 kg/(m^2) - AMLODIPINE 5 MG TABLET Nicole Zhang APRN.TOY STUFFER documented in this encounterLutheran Hospital12-11-2023 Miscellaneous Notes* Telephone Encounter - Eileen Bello Ma - 10/18/2023 10:53 AM EST Call to daughterKailyn and notified her of results and recommendation below from Provider. Verbalizes understanding. Will be seeing Nicole Zahng this week as well for ongoing BP issues, will address with her. Eileen Bello Ma * Telephone Encounter - Max Rodriguez MD - 10/17/2023 12:44 PM EST Let daughter know Pat is still getting too much levothyroxine. Cont with the 137 mgc tab but only take one Wed-Wed and none on Wednesday. Will need repeat lab in 2 months. Order placed. documented in this encounterLutheran Hospital12-04-2023 Miscellaneous Notes* Telephone Encounter - Max Rodriguez MD - 10/11/2023 9:48 AM EST The following approved medication requests have been transmitted electronically. Requested Prescriptions Signed Prescriptions Disp Refills traMADol (ULTRAM) 50 mg tablet 270 tablet 0 Sig: Take 1 tablet by mouth every 8 hours as needed for pain for up to 90 days. Authorizing Provider: MAX RODRIGUEZ MD PDMP website checked and validated. All prescriptions have been APPROPRIATELY filled. No suspiciousactivity was identified. 10/11/2023 by Max Rodriguez MD * Telephone Encounter - Katherin Schmidt MA - 10/11/2023 7:55 AM EST Patient has been identified by name and date of : Yes Requested Prescriptions Pending Prescriptions Disp Refills traMADol (ULTRAM) 50 mg tablet 270 tablet 0 Sig: Take 1 tablet by mouth every 8 hours as needed for pain for up to 90 days. RX INSTRUCTIONS: Patient aware RX will be sent to pharmacy. No need to notify patient. Katherin Schmidt MA Aria 09/2023 Nov 01/2024 Last refill: 07/2023 documented in this encounterLutheran Hospital10-24-2023 Miscellaneous Notes* Telephone Encounter - Katherin Schmidt MA - 08/31/2023 8:30 AM EDT Patient's notified and voiced understanding. Katherin Schmidt MA * Telephone Encounter - Max Rodriguez MD - 08/30/2023 11:29 PM EDT Let Kailyn her daughter know Nery's thyroid test shows she is now getting slightly too much replacement medication. I going to send in a new script for levothyroxine 137 mg tabs (currently on 125 mcg tabs). I want her to take one daily. Order placed to get lab repeated on or after 10/29/2023. documented in this encounterLutheran Hospital10-23-2023 History of Present illness Narrative* Josie Swanson Ma - 08/30/2023 11:00 AM EDT PT ASSESSMENT - CASTING ROOM Anne Marie presents for Application of brace. Applied DonJoy Reaction knee brace size XL/XXL to Right knee. Patient tolerated well. Patient has been instructed in Care and proper application of brace. Patient signed PPA electronically for billing. A copy will be sent to patient due to not having an email. Screen Printing Machine Operator Helper's instructions were sent home with the patient. Josie Swanson Ma * Bob Whiteside MD - 08/30/2023 10:12 AM EDTAssociated Order(s): Large Joint Arthro/Inj: bilateral knee joints Post-Procedure Diagnose(s): Primary osteoarthritis of both knees; Chronic pain of both knees Bob Whiteside MD Department of Orthopaedics Orthopaedics [address] [facility] [address] Dept: [phone] Dept August 30, 2023 CHIEF COMPLAINT: Injections of the Right Knee and Injections of the Left Knee. HPI ASSESSMENT: M17.0 Primary osteoarthritis of both knees (primary encounter diagnosis) M25.561, M25.562, G89.29 Chronic pain of both knees SUMMARY/PLAN: Repeat injections both knees. Exam: Stable exams. Large Joint Arthro/Inj: bilateral knee joints Informed Consent Consent Obtained: Verbal [place] Protocol A moment to CARE was completed. [...] as needed for pain for up to 90days. levothyroxine (LEVOXYL) 125 mcg tablet Take one tab once a day and 2 tabs on Wednesday, Take on empty stomach. For Thyroid. ondansetron orally disintegrating (ZOFRAN ODT) 4 mg disintegrating tablet Take 1 tablet by mouth every 6 hours as needed for nausea/vomiting. fluticasone propionate (FLOVENT DISKUS) 100 mcg/actuation inhaler Inhale 1 Puff as instructed twicedaily. albuterol HFA (PROVENTIL HFA, VENTOLIN HFA) 90 [...] tablet by mouth once daily. (Patient not taking:Reported on 01/20/2023) No current facility-administered medications for this visit. Allergies: Iodine, Hctz [Thiazides], Mary Inhibitors, Chantix [Varenicline], Lipitor [Atorvastatin Calcium], Mucinex [Guaifenesin], Pravachol [Pravastatin Sodium], and Zanaflex [Tizanidine] Bob Whiteside MD documented in this encounterLutheran Hospital10-23-2023 History of Present illness Narrative* Nciole Zhang APRN.TOY STUFFER - 08/30/2023 8:44 AM EDT Chief Complaint Patient presents with: Blood Pressure Check HPI Anne Marie Garza is a 83 year old female who presents here today for Above Complaints.. Patient presents for BP follow up. Patient was initiated on norvasc 2.5mg a month ago by Dr. Brennan addition to her metoprolol and losartan. Patient denies any side effects. Past medical history, appointments, medications, allergies reviewed. Previous Medical History PAST MEDICAL HISTORY Diagnosis Date Acquired hypothyroidism 08/02/2015 Advance directive discussed with patient 01/20/2023 Discussed 01/2023: Up to date Anxiety Anxiety 01/19/2010 -continue home citalopram BPV (benign positional vertigo) 08/02/2015 Chronic pain of both knees 05/24/2020 Seeing Ortho: Dr. Whiteside Coronary artery 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 08/02/2015 Not seeing cardiology Degenerative disc disease, lumbar 05/26/2018 Elevated hemoglobin (HCC) 04/17/2020 to be rechecked 05/17/2020 Elevated hemoglobin A1c 12/30/2017 Epidermal inclusion cyst 09/09/2019 anterior chest wall excised 08/2019 Essential hypertension 01/26/2017 GERD without esophagitis 07/08/2022 Graves disease Heart attack (HCC) [facility] stent in heart History of COVID-19 07/08/202205/2022 History of non-ST elevation myocardial infarction (NSTEMI) 01/19/201001/2010 Intradermal nevus 12/30/2014 right inferrior medial breast Keratosis, inflamed seborrheic 12/30/2014 right upper back Left carpal tunnel syndrome 01/04/[address] 12/03/2021 Daughter Truong is DPOA Low vitamin B12 level 04/06/2014 Lumbar radicular pain 05/26/2018 Added automatically from request for surgery [id number] Lump or mass in breast 01/20/2023 Patient [...] 2D ECHO (EXEP) 12/21/2019 EF=60%, 1+ TI, AR, AI 2D ECHO (EXEP) 02/17/2021 EF= 60%, [...] Other: See Comments Dehydrated, nauseated and week Mary Inhibitors Cough Chantix [Vareniclin* Other: See Comments [...] as needed for pain for up to 90days. levothyroxine (LEVOXYL) 125 mcg tablet Take one tab once a day Wed-Wed and 2 tabs on Wednesday, Take on empty stomach. For Thyroid. ondansetron orally disintegrating (ZOFRAN ODT) 4 mg disintegrating tablet Take 1 tablet by mouth every 6 hours as needed for nausea/vomiting. fluticasone propionate (FLOVENT DISKUS) 100 mcg/actuation inhaler Inhale 1 Puff as instructed twicedaily. albuterol HFA (PROVENTIL HFA, VENTOLIN HFA) 90 mcg/actuation inhaler Inhale 2 Puffs as instructed every 4 hours as needed. cyanocobalamin (VITAMIN B-12) 1,000 mcg tab Take 1 tablet by mouth once daily. (Patient not taking:Reported on 01/20/2023) nitroglycerin sublingual (NITROQUICK) 0.4 mg [...] 62 Resp 16 Ht 160 cm (5' 3) Wt 74.8 kg (165 lb) BMI 29.23 kg/m General Appearance: Well appearing, alert, in no acute distress, well-hydrated, well nourished.. Lungs: Lungs clear to auscultation. No wheezing, rhonchi, rales.. Heart: RRR without murmur, gallop, or rubs. No ectopy. Health Maintenance List RSV Vaccine(1 - 1-dose 60+ series) Never done Covid-19 Vaccine(2022- season) due on 07/09/2023 LDL Cholesterol due [...] COVID-19 VACCINE (2022- SEASON) AGE 12+ YR Nicole Zhang APRN.TOY STUFFER documented in this encounterLutheran Hospital09-15-2023 History of Present illness Narrative* Max Rodriguez MD - 07/23/2023 11:00 AM EDT Chief Complaint No chief complaint on file. HPI Anne Marie Garza is a 83 year old female [...] Since last appt she is taking her inhalerdaily and breathing has been better. tramadol continues [...] A1C 5.9 07/06/2023 5.7 01/12/[address] Whiteside 05/2023 - ostearthritis in both knees Past medical history, appointments, medications, allergies reviewed. Previous Medical History PAST MEDICAL HISTORY Diagnosis Date Acquired hypothyroidism 08/02/2015 Advance directive discussed with patient 01/20/2023 Discussed 01/2023: Up to date Anxiety Anxiety 01/19/2010 -continue home citalopram BPV (benign positional vertigo) 08/02/2015 Chronic pain of both knees 05/24/2020 Seeing Ortho: Dr. Whiteside Coronary artery 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 08/02/2015 Not seeing cardiology Degenerative disc disease, lumbar 05/26/2018 Elevated hemoglobin (HCC) 04/17/2020 to be rechecked 05/17/2020 Elevated hemoglobin A1c 12/30/2017 Epidermal inclusion cyst 09/09/2019 anterior chest wall excised 08/2019 Essential hypertension 01/26/2017 GERD without esophagitis 07/08/2022 Graves disease Heart attack (HCC) [facility] stent in heart History of COVID-19 07/08/202205/2022 History of non-ST elevation myocardial infarction (NSTEMI) 01/19/201001/2010 Intradermal nevus 12/30/2014 right inferrior medial breast Keratosis, inflamed seborrheic 12/30/2014 right upper back Left carpal tunnel syndrome 01/04/[address] 12/03/2021 Daughter Truong is DPOA Low vitamin B12 level 04/06/2014 Lumbar radicular pain 05/26/2018 Added automatically from request for surgery [id number] Lump or mass in breast 01/20/2023 Patient [...] 2D ECHO (EXEP) 12/21/2019 EF=60%, 1+ TI, AR, AI 2D ECHO (EXEP) 02/17/2021 EF= 60%, [...] Other: See Comments Dehydrated, nauseated and week Mary Inhibitors Cough Chantix [Vareniclin* Other: See Comments [...] as needed for pain for up to 90days. levothyroxine (LEVOXYL) 125 mcg tablet Take one [...] mcg/actuation inhaler Inhale 1 Puff as instructed twicedaily. albuterol HFA (PROVENTIL HFA, VENTOLIN HFA) 90 mcg/actuation inhaler Inhale 2 Puffs as instructed every 4 hours as needed. cyanocobalamin (VITAMIN B-12) 1,000 mcg tab Take 1 tablet by mouth once daily. (Patient not taking:Reported on 01/20/2023) nitroglycerin sublingual (NITROQUICK) 0.4 mg [...] in no acute distress, well-hydrated, well nourished. andOverweight. Eyes: Anicteric sclera. Pupils are equally round [...] Abs Lymph 1.00 - 4.00 k/uL 1.31 [place]% % 6.7 Abs [place] <0.87 k/uL 0.65 Eosin% % 3.1 Abs [...] CMP, lipid, UA, A1c, CBC, B12, Mg, Max Rodriguez MD documented in this encounterLutheran Hospital09-05-2023 Miscellaneous Notes* Telephone Encounter - Dora Whitman PA-C - 07/13/2023 10:49 PM EDT The following approved medication requests have been transmitted electronically. Requested Prescriptions Signed Prescriptions Disp Refills traMADol (ULTRAM) 50 mg tablet 270 tablet 0 Sig: Take 1 tablet by mouth every 8 hours as needed for pain for up to 90 days. Authorizing Provider: DORA WHITMAN PA-C PDMP website checked and validated. All prescriptions have been APPROPRIATELY filled. No suspiciousactivity was identified. 07/13/2023 by Dora Whitman PA-C * Telephone Encounter - Massiel Morales Ma - 07/13/2023 9:50 AM EDT Last office visit: 04/22/23 F/u scheduled: 07/23/23 Last refilled on: Tramadol #270 with 0 refill on 04/09/23 Massiel Morales Ma documented in this encounterLutheran Hospital08-31-2023 Miscellaneous Notes* Telephone Encounter - Max Rodrgiuez MD - 07/08/2023 10:15 AM EDT Noted. The following approved medication requests have been transmitted electronically. Requested Prescriptions Signed Prescriptions Disp Refills levothyroxine (LEVOXYL) 125 mcg tablet 102 tablet 1 Sig: Take one tab once a day Wed-Wed and 2 tabs on Wednesday, Take on empty stomach. For Thyroid. Authorizing Provider: MAX RODRIGUEZ MD * Telephone Encounter - Savannah Lockett RN - 07/08/2023 8:42 AM EDT Pts daughter called and is notified of [...] Sig: Take one tab once a day Mon-Sat and 2 tabs on Wednesday, Take on empty stomach. For Thyroid. Authorizing Provider: MAX RODRIGUEZ Date of last office visit in primary care: 04/22/23 Future visit: 07/23/23 Last 2 Encounter Wt Readings: Date: Wt: 04/22/2023 77.6 kg (171 lb) 01/20/2023 76.2 kg (168 lb) Previous labs/tests for medication: Thyroid: TSH Date Value 07/06/2023 4.550 mIU/L 11/19/2021 0.222 uU/mL Please advise. Thank you. Savannah Lockett, RN * Telephone Encounter - Max Rodriguez MD - 07/07/2023 7:40 PM EDT Let patient know we will discuss her labs at her appt on 07/23/2023. However, her tyroid lab is showing she is not getting enough replacement medication. Advise her to change her current dosing of levothyroxine 125 mcg Mon-Sat and 1.5 on Sun to 125 mcg Mon-Sat and two on Sun. Order placed to get thyroid lab repeated in 2 months. documented in this encounterLutheran Hospital07-20-2023 History of Present illness Narrative* Bob Whiteside MD - 05/27/2023 9:40 AM EDT Bob Whiteside MD Department of Orthopaedics Orthopaedics [address] [facility] [address] Dept: [phone] Dept May 27, 2023 CHIEF COMPLAINT: Established [...] options again as far as injections Ms. Anne Marie Garza was advised as to contrast therapies and/or to take analgesics/anti-inflammatories as needed and all contraindications were reviewed. OBJECTIVE: Ms. Anne Marei Garza is a pleasant 82 year old [...] PREVIOUS EXAM. PATELLOFEMORAL DEGENERATIVE CHANGES ARE UNCHANGED. 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 levothyroxine (LEVOXYL) 125 mcg tablet Take one tab once a day Mon-Sat and 1.5 tabs on Wednesday, Takeon empty stomach. For Thyroid. metoprolol succinate ER [...] mcg/actuation inhaler Inhale 1 Puff as instructed twicedaily. albuterol HFA (PROVENTIL HFA, VENTOLIN HFA) 90 [...] tablet by mouth once daily. (Patient not taking:Reported on 01/20/2023) nitroglycerin sublingual (NITROQUICK) 0.4 mg SL tablet Dissolve 1 tablet under the tongue every 5 minutes as needed. COMPOUNDED PRESCRIPTION CPAP chin strap, #: one Dx: G47.33 (Patient not taking: No sig reported) CPAP Dream Wear mask for CPAP. Dx MATT (Patient not taking: No sig reported) No current facility-administered medications for this visit. Allergies: Iodine, Hctz [Thiazides], Mary Inhibitors, Chantix [Varenicline], Lipitor [Atorvastatin Calcium], Mucinex [Guaifenesin], Pravachol [Pravastatin Sodium], and Zanaflex [Tizanidine] ROS: General (negative for fatigue, malaise, weight loss/gain) HEENT (negative for headache, earache, recent vision changes, sinus pain, sore throat) Respiratory (no recent shortness of breath, hemoptysis) CV (negative for chest tightness, palpitations) Musculoskeletal (see HPI) Psych (no depression, anxiety) Bob Whiteside MD documented in this encounterLutheran Hospital07-06-2023 Miscellaneous Notes* Telephone Encounter - Nanette Hernandez Cma - 05/13/2023 1:00 PM EDT Daughter notified and verbalized understanding Nanette Hernandez Cma * Telephone Encounter - Nicole Zhang APRN.CNP - 05/13/2023 12:47 PM EDT Please let patient know her blood flow tests of her legs is normal. documented in this encounterLutheran Hospital07-06-2023 History of Present illness Narrative* Cris Kirk LPN - 05/13/2023 11:10 AM EDT Scan on 05/12/2023 3:46 PM by External Provider, PA-C: Consultation - Emergency Medicine Scan on 05/12/2023 12:27 PM by External Provider, HIRALC: X-ray documented in this encounterLutheran Hospital06-29-2023 Discharge summary Author Flavio Echavarria [facility] May 06, 2023 7:15pm Note Date/Time May 06, 2023 5:17 pm [facility] Medical Records Department [address] [place] [address] Emergency Department Summary 05/06/23 MR#: [id number] Acct: [id number] Name: ANNE MARIE GARZA Rep #:[id number] : 1940 82 From: Flavio Echavarria MD PCP: Dr. Max Rodriguez MD Status:REG ER Location: ED HPI History of Present Illness Chief Complaint: Chest Pain Informant: patient Narrative Narrative: Patient presents with right-sided chest pain. This started 2 or so hours ago. She describes an area under the breast that wraps around to her back. She states that sharp in her hurts in that whole area. But it does not hurt taking a deep breath. She has chronic severe dyspnea but it is no different than normal and she is not dyspneic sitting in bed. No coughing. She does have a history of heart disease and has had stents in the past. They think the last stents were 2 or 3 years ago. But she states this is unlike her heart pain. She also has no nausea vomiting diaphoresis or lightheadedness. She has no known injury. She used to be on Plavix but stopped that so she could start Celebrex for a lot of arthritic pain. [facility] Medical History Anxiety and depression Atherosclerosis of coronary artery of [place] heart without angina pectoris CAD (coronary artery disease) Chronic diastolic (congestive) heart failure COPD (chronic obstructive pulmonary disease) Essential hypertension Essential hypertension Graves disease Heart attack History of non-ST elevation myocardial infarction (NSTEMI) (12/21/19) HLD (hyperlipidemia) Hypothyroidism Left ventricular diastolic dysfunction Nicotine dependence Obesity MATT (obstructive sleep apnea) Osteoarthritis Personal history of colonic polyps Tobacco abuse Trigger middle finger of left hand Vertigo Home Medications aspirin 81 mg chewable tablet 81 mg PO DAILY@0800 heart health 05/07/20 [History Last Taken 05/06/20] clopidogrel 75 mg tablet 75 mg PO DAILY blood thinner 05/07/20 [History Last Taken 05/06/20] rosuvastatin 5 mg tablet 5 mg PO DAILY cholesterol 05/07/20 [History Last Taken 05/06/20] metoprolol succinate 100 mg tablet,extended release 24 hr 100 mg PO DAILY heart 12/05/21 [History Last Taken Unknown] losartan 100 mg tablet 100 mg PO BID bp 01/28/22 [History Last Taken Unknown] tramadol 50 mg tablet 50 mg PO Q8H PRN Pain Score 1-10 01/28/22 [History Last Taken Unknown] citalopram 40 mg tablet 40 mg PO DAILY 01/29/22 [History Last Taken Unknown] levothyroxine 125 mcg tablet 125 mcg PO DAILY 01/29/22 [History Last Taken Unknown] omeprazole 40 mg capsule,delayed release 40 mg PO DAILY 01/29/22 [History Last Taken Unknown] albuterol sulfate 90 mcg/actuation aerosol inhaler 2 puff inhalation Q4H #8.5 grams 05/15/22 [Rx Last Taken Unknown] fluticasone propionate 100 mcg/actuation blister powder for inhalation (Flovent Diskus) 2 inh inhalation BID #3 ea 05/15/22 [Rx Last Taken Unknown] Allergy/AdvReac Type Severity Reaction Status Date / Time iodine Allergy Severe Angioedema Verified 05/01/22 10:04 guaifenesin [From Mucinex] Allergy Mild Other Verified 05/01/22 10:04 ticagrelor [From Brilinta] AdvReac Severe Shortness Verified 05/01/22 10:04 of breath varenicline [From Chantix] AdvReac Severe Other Verified 05/01/22 10:04 Family History Father CAD (coronary artery disease) Prostate cancer Brother Alzheimer's disease Daughter Breast cancer Daughter Breast cancer Surgical History History of coronary artery stent placement (12/21/19) Social History Smoking Status: Current every day smoker tobacco type: cigarettes Tobacco: How many years used: 45 Electronic Cigarette Use: with nicotine second hand exposure: No alcohol intake: current alcohol intake frequency: a few times a week substance use type: does not use ROS ROS ED ROS Narrative A complete review of systems was performed and is negative except as documented in the history of present illness. Some specific details below. Constitutional: No recent fevers or chills. EYE: No discharge, visual complaints, or pain. ENT: No difficulty swallowing. No swelling. No pain. No reflux symptoms. CV: See history of present illness. Of note, the patient is known to have a mass in the right breast. She has refused evaluation for this. Respiratory: See history of present illness. Her dyspnea is chronic and has notchanged at all with this. GI: No abdominal pain. No nausea vomiting diarrhea. No blood in stool. : No frequency dysuria or hematuria. Musculoskeletal: No recent trauma. No pains. No swelling. She does have a history of dusky and occasionally blue toes. But she has refused work-up for this. She feels that she is 82 and does not want to go through treatment for this. Skin: No rash. Nondiaphoretic. Neuro: No weakness or numbness. Endocrine: No polyuria or polydipsia. EXAM Physical Exam Narrative Exam Narrative: CONSTITUTIONAL: Patient is nontoxic in appearance. The patient looks comfortable. Work of breathing looks normal. HEENT: No notable trauma. Mucous membranes moist. No sinus tenderness. No indication of pain with swallowing. EYES: No conjunctival injection. No proptosis. NECK:No JVD. No stridor. CARDIOVASCULAR: Mildly bradycardic rate. Regular rhythm. No notable murmur. No JVD. Tones are not muffled. RESPIRATORY: No respiratory distress. Breathing is unlabored. No wheezes spite her history of significant COPD. No rhonchi. No rales. No pain with a deep breath. I do not see any rashes. Nor do I get any notable tenderness. GASTROINTESTINAL: Not distended. Bowel sounds are normal. No tenderness. No guarding. No rebound. No palpable mass. No bruit is heard. GENITOURINARY: No tenderness over the bladder. No CVA tenderness. MUSCULOSKELETAL: Atraumatic. No peripheral edema. No cord. No tenderness along the deep venous system. No asymmetry. No distended veins. She does not have cyanosis at this time. Even the family states her legs look better than they normally do. But when she she squeezes her toes or you squeeze them she does have slow capillary refill. That is chronic. She states actually they look better than normal right now. NEUROLOGICAL: Patient is alert and appropriate. No focal deficit noted. SKIN: No noted rashes. No diaphoresis. PSYCHIATRIC: Patient is calm. Mood is appropriate. Const Vital Signs: 05/06/23 15:26 05/06/23 15:57 05/06/23 16:04 Temperature 98.3 F Temperature Source Temporal Pulse Rate 56 L Respiratory Rate 18 Respiratory Effort Normal Non-Labored Blood Pressure 171/66 H Blood Pressure Mean 101 Pulse Ox 95 Oxygen Delivery Method Room Air Room Air 05/06/23 16:03 05/06/23 16:10 05/06/23 16:15 Temperature Temperature Source Pulse Rate 53 L 56 L 56 L Respiratory Rate 11 L 16 16 Respiratory Effort Blood Pressure 178/57 H Blood Pressure Mean 91 Pulse Ox 93 93 93 Oxygen Delivery Method 05/06/23 16:20 05/06/23 16:30 05/06/23 16:40 Temperature Temperature Source Pulse Rate 54 L 58 L 52 L Respiratory Rate 20 H 21 H 21 H Respiratory Effort Blood Pressure 153/112 H Blood Pressure Mean 123 Pulse Ox 93 94 93 Oxygen Delivery Method 05/06/23 16:45 05/06/23 16:50 05/06/23 17:00 Temperature Temperature Source Pulse Rate 52 L 51 L 53 L Respiratory Rate 18 13 18 Respiratory Effort Blood Pressure 149/54 H 161/76 H Blood Pressure Mean 80 100 Pulse Ox 93 94 92 Oxygen Delivery Method 05/06/23 17:15 05/06/23 17:20 05/06/23 17:30 Temperature Temperature Source Pulse Rate 53 L 51 L 53 L Respiratory Rate 9 L 12 17 Respiratory Effort Blood Pressure 178/52 H 184/58 H Blood Pressure Mean 84 91 Pulse Ox 93 95 94 Oxygen Delivery Method 05/06/23 17:40 05/06/23 17:45 05/06/23 17:50 Temperature Temperature Source Pulse Rate 53 L 53 L 54 L Respiratory Rate 21 H 14 15 Respiratory Effort Blood Pressure 184/74 H Blood Pressure Mean 105 Pulse Ox 95 94 95 Oxygen Delivery Method 05/06/23 18:00 05/06/23 18:10 05/06/23 18:15 Temperature Temperature Source Pulse Rate 55 L 54 L 51 L Respiratory Rate 15 23 H 15 Respiratory Effort Blood Pressure 171/53 H 159/87 H Blood Pressure Mean 87 106 Pulse Ox 94 94 94 Oxygen Delivery Method 05/06/23 18:20 05/06/23 18:30 05/06/23 18:40 Temperature Temperature Source Pulse Rate 53 L 51 L 54 L Respiratory Rate 13 12 18 Respiratory Effort Blood Pressure 171/62 H Blood Pressure Mean 92 Pulse Ox 94 93 92 Oxygen Delivery Method 05/06/23 18:45 Temperature Temperature Source Pulse Rate 53 L Respiratory Rate 17 Respiratory Effort Blood Pressure 159/108 H Blood Pressure Mean 123 Pulse Ox 94 Oxygen Delivery Method MDM MDM MDM Narrative Medical decision making narrative: Patient CBC is normal. Patient's electrolytes are normal. Patient's D-dimer age-adjusted is normal. Patient's troponin and repeat troponin are both 8 and normal. My independent interpretation of her single view AP chest x-ray showed no acute process. Final reading is mild hyperinflation. Patient feels well. Her daughter thinks this might be indigestion or she hurt something. Symptoms are really better now. Patient does not feel ill. She does not want to stay in the hospital. Since she feels well, her EKG and blood work is not showing any acute process I think it is reasonable we get her home. We did discuss reasons to return. She does live at home with family and can be watched. Lab Data Attestation: I reviewed the patient's lab results. Labs: Laboratory Results - last 24 hr 05/06/23 05/06/23 15:50 18:15 WBC 8.8 RBC 4.99 Hgb 14.5 Hct 43.7 MCV 87.6 MCH 29.1 MCHC 33.2 RDW Std Deviation 46.8 H RDW Coeff of Kal 14.6 Plt Count 266 MPV 11.0 Immature Gran % (Auto) 0.200 Neut % (Auto) 58.3 Lymph % (Auto) 28.7 [place] % (Auto) 9.3 Eos % (Auto) 2.7 Baso % (Auto) 0.8 Absolute Neuts (auto) 5.1 Absolute Lymphs (auto) 2.52 Nucleated RBC % 0 D-Dimer Quant (PE/DVT) 0.55 H* Sodium 136 Potassium 4.4 Chloride 99 Carbon Dioxide 32.0 Anion Gap 5 BUN 27 H Creatinine 1.39 H Estim Creat Clear Calc 27.41 Est GFR (MDRD) Af Amer 47 L Est GFR (MDRD) Non-Af 39 L BUN/Creatinine Ratio 19.4 Glucose 103 Calcium 9.4 Troponin I High Sens 8 8 Radiography Diagnostic Testing: Clinical Impression(s) from Imaging Studies Chest X-Ray 05/06/23 16:05 IMPRESSION: Mild hyperinflation. No acute cardiopulmonary pathology Electronically Signed: Max Ramírez MD at 16:18 EDT , EKG Initial EKG: Comments: My independent interpretation the patient's EKG shows sinus rhythm with bradycardic rate of 52. Some indication of LVH with some secondary changes. Nonspecific ST change but no sign of infarct. No ventricular ectopy. OH interval, QRS duration and QTc are within normal. Discharge Plan Triage Chief Complaint: Chest Pain ED Provider: Listerman,Peter Dx/Rx/DC Orders Clinical Impression: Right-sided chest pain Instructions: ED Chest Pain, Uncertain Cause Prescriptions: No Action omeprazole 40 mg capsule,delayed release(DR/EC) 40 mg PO DAILY citalopram 40 mg tablet 40 mg PO DAILY levothyroxine 125 mcg tablet 125 mcg PO DAILY clopidogrel 75 MG tablet 75 mg PO DAILY aspirin 81 MG tablet,chewable 81 mg PO DAILY@0800 rosuvastatin 5 MG tablet 5 mg PO DAILY metoprolol succinate 100 mg tablet extended release 24 hr 100 mg PO DAILY losartan 100 mg tablet 100 mg PO BID tramadol 50 mg tablet 50 mg PO Q8H PRN (Reason: Pain Score 1-10) albuterol sulfate 90 mcg/actuation HFA aerosol inhaler 2 puff inhalation Q4H Qty: 8.5 11RF Flovent Diskus 100 mcg/actuation blister with device 2 inh inhalation BID Qty: 3 3RF Primary Care Provider: Max Rodriguez Referrals: Emmett Rasmussen MD [Med Staff - Active Staff] - 3-5 Days if not improving Max Rodriguez MD [Primary Care Provider] - Disposition Disposition: Home, Self Care What to do if you have Problems For any increased pain, shortness of breath, bleeding, nausea or vomiting, chestpain, or any unexpected problems, contact your Primary Care Provider. Call [facility] ([phone]) or report to the closest Emergency Room. Call 911 if necessary. 05/06/231914 <Electronically signed by Flavio Echavarria MD> Cosigner Signature (if applicable): CC: Dr. Max Rodriguez MD ~ Signed [facility] Work Phone: [phone] 242-592906-15-2023 History of Present illness Narrative* Nicole Zhang, [email or web address] STUFFER - 04/22/2023 10:20 AM EDT Chief Complaint Patient presents with: Follow Up: 3 month HPI Anne Marie Garza is a 82 year old female who presents here today for Above Complaints.. Patient presents for routine follow up for chronic pain medication management. Patient currently oncelebrex and tramadol for management of her osteoarthritis [...] of both knees 05/24/2020 Seeing Ortho: Dr. Whiteside Coronary artery 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 08/02/2015 Not seeing cardiology Degenerative disc disease, lumbar 05/26/2018 Elevated hemoglobin (HCC) 04/17/2020 to be rechecked 05/17/2020 Elevated hemoglobin A1c 12/30/2017 Epidermal inclusion cyst 09/09/2019 anterior chest wall excised 08/2019 Essential hypertension 01/26/2017 GERD without esophagitis 07/08/2022 Graves disease Heart attack (HCC) [facility] stent in heart History of COVID-19 07/08/202205/2022 History of non-ST elevation myocardial infarction (NSTEMI) 01/19/201001/2010 Intradermal nevus 12/30/2014 right inferrior medial breast Keratosis, inflamed seborrheic 12/30/2014 right upper back Left carpal tunnel syndrome 01/04/[address] 12/03/2021 Daughter Truong is DPOA Low vitamin B12 level 04/06/2014 Lumbar radicular pain 05/26/2018 Added automatically from request for surgery [id number] Lump or mass in breast 01/20/2023 Patient [...] 2D ECHO (EXEP) 12/21/2019 EF=60%, 1+ TI, AR, AI 2D ECHO (EXEP) 02/17/2021 EF= 60%, [...] Other: See Comments Dehydrated, nauseated and week Mary Inhibitors Cough Chantix [Vareniclin* Other: See Comments [...] as needed for pain for up to 90days. levothyroxine (LEVOXYL) 125 mcg tablet Take one tab once a day Wed-Wed and 1.5 tabs on Wednesday, Takeon empty stomach. For Thyroid. metoprolol succinate ER [...] mcg/actuation inhaler Inhale 1 Puff as instructed twicedaily. albuterol HFA (PROVENTIL HFA, VENTOLIN HFA) 90 mcg/actuation inhaler Inhale 2 Puffs as instructed every 4 hours as needed. aspirin, enteric coated (ASPIRIN, ENTERIC COATED) 81 mg EC tablet Take 81 mg by mouth once daily. cyanocobalamin (VITAMIN B-12) 1,000 mcg tab Take 1 tablet by mouth once daily. (Patient not taking:Reported on 01/20/2023) nitroglycerin sublingual (NITROQUICK) 0.4 mg [...] TDAP VACCINE, AGE 7+ YR (ADACEL, BOOSTRIX) Nicole Zhang APRN.FELIPA documented in this encounterLuther[facility]06-02-2023 Miscellaneous Notes* Telephone Encounter - Max Rodriguez MD - 04/09/2023 8:01 AM EDT The following approved medication requests have been transmitted electronically. Requested Prescriptions Signed Prescriptions Disp Refills traMADol (ULTRAM) 50 mg tablet 270 tablet 0 Sig: Take 1 tablet by mouth every 8 hours as needed for pain for up to 90 days. Authorizing Provider: MAX RODRIGUEZ MD PDMP website checked and validated. All prescriptions have been APPROPRIATELY filled. No suspiciousactivity was identified. 04/09/2023 by Max Rodriguez MD * Telephone Encounter - Orly Richardson LPN - 04/09/2023 7:50 AM EDT Last refill 01/04/23 Qty: 270 with 0 refills ARIA 01/20/23 NOV 04/22/23 Orly Richardson LPN documented in this encounterLuther[facility]04-17-2023 History of Present illness Narrative* Bob Whiteside MD - 02/22/2023 10:25 AM EDTAssociated Order(s): Large Joint Arthro/Inj: bilateral knee joints Post-Procedure Diagnose(s): Primary osteoarthritis of both knees Bob Whiteside MD Department of Orthopaedics Orthopaedics [address] [facility] [address] Dept: [phone] Dept February 22, 2023 CHIEF COMPLAINT: Follow [...] encounter diagnosis) PLAN: Repeat injections today. Ms. Anne Marie Garza was advised as to contrast therapies and/or to take analgesics/anti-inflammatories as needed and all contraindications were reviewed. OBJECTIVE: Ms. Anne Marie Garza is a pleasant 82 year old [...] knee joints Informed Consent Consent Obtained: Verbal [place] Protocol A moment to CARE was completed. [...] 2D ECHO (EXEP) 12/21/2019 EF=60%, 1+ TI, AR, AI 2D ECHO (EXEP) 02/17/2021 EF= 60%, [...] day Wed-Wed and 1.5 tabs on Wednesday, Takeon empty stomach. For Thyroid. metoprolol succinate ER [...] as needed for pain for up to 90days. fluticasone propionate (FLOVENT DISKUS) 100 mcg/actuation inhaler Inhale 1 Puff as instructed twicedaily. albuterol HFA (PROVENTIL HFA, VENTOLIN HFA) 90 [...] tablet by mouth once daily. (Patient not taking:Reported on 01/20/2023) COMPOUNDED PRESCRIPTION CPAP chin strap, #: one Dx: G47.33 (Patient not taking: No sig reported) CPAP Dream Wear mask for CPAP. Dx MATT (Patient not taking: No sig reported) No current facility-administered medications for this visit. Allergies: Iodine, Hctz [Thiazides], Mary Inhibitors, Chantix [Varenicline], Lipitor [Atorvastatin Calcium], Mucinex [Guaifenesin], Pravachol [Pravastatin Sodium], and Zanaflex [Tizanidine] ROS: General (negative for fatigue, malaise, weight loss/gain) HEENT (negative for headache, earache, recent vision changes, sinus pain, sore throat) Respiratory (no recent shortness of breath, hemoptysis) CV (negative for chest tightness, palpitations) Musculoskeletal (see HPI) Psych (no depression, anxiety) Bob Whiteside MD documented in this encounterLuther[facility] Hospital03-20-2023 Miscellaneous Notes* Telephone Encounter - Katherin Schmidt MA - 01/25/2023 10:34 AM EDT Patient has been identified by name and [...] 04/2023 Last refill: 08/2022 documented in this encounterLuther[facility] Hospital03-15-2023 Instructions* Patient Instructions* Max Rodriguez MD - 01/20/2023 10:22 AM EDT Patient should try to a Tdap for a tetanus booster at the health Dept. The Flovent works better to reduce breathing issues if taken daily. Please take the B12 every day. Please get labs and urine test done on or after 07/09/2023 prior to your next visit. documented in this encounterLutheran Hospital03-15-2023 History of Present illness Narrative* Max Rodriguez MD - 01/20/2023 9:24 AM EDT Medicare Yearly Visit Medical B eligibilty date Not able to find Date of last exam 12/03/2021 PAST MEDICAL HISTORY PAST MEDICAL HISTORY Diagnosis Date Anxiety CAD (coronary artery disease) Chronic obstructive pulmonary disease (COPD) (HCC) Depression Essential hypertension 01/26/2017 Graves disease Heart attack (HCC) [facility] stent in heart Hyperlipidemia Hypothyroid Obstructive sleep [...] wine, once a month Drug use: No Anne Marie gets sporadic irregular exercise basically just walking her steps. She watches her diet for sodium, low fat and low cholesterol most of the time. List of current specialists seen: Dr. Whiteside (ortho) Optho Dr. Rasmussen (Cardio) stopped seeing Dr. Gordon (pulm) Stopped seeing. End of Live Planning discussed including patients advanced directive wishes: Yes I am willing to follow Anne Marie's advanced directives. Depression screen Depression Screening 06/24/2018 [...] bars in the bathroom, lack of handrails onthe stairs or have poor lighting? no Hearing Evaluation: normal PHYSICAL EXAM BP 158/82 (BP Site: Right Arm, BP Position: Sitting, BP Cuff Size: Regular Adult) Pulse (!) 58 Ht 161.3 cm (5' 3.5) Wt 76.2 kg (168 lb) SpO2 98% BMI 29.29 kg/m Alert and oriented X 3: YES Body mass index is 29.29 kg/(m^2). See below ASSESSMENT/PLAN: 82 year old female The following prevention plan was discussed during the office visit and provided to the patient: See below Max Rodriguez MD Chief Complaint Patient presents with: Medicare Wellness Exam HPI Anne Marie Garza is a 82 year old female who presents here today for Chronic Medical Conditions. andMedicare Annual Visit. Patient with Hx of hypothyroidism, [...] of both knees 05/24/2020 Seeing Ortho: Dr. Whiteside Coronary artery 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 08/02/2015 Not seeing cardiology Degenerative disc disease, lumbar 05/26/2018 Elevated hemoglobin (HCC) 04/17/2020 to be rechecked 05/17/2020 Elevated hemoglobin A1c 12/30/2017 Epidermal inclusion cyst 09/09/2019 anterior chest wall excised 08/2019 Essential hypertension 01/26/2017 GERD without esophagitis 07/08/2022 Graves disease Heart attack (HCC) [facility] stent in heart History of COVID-19 07/08/202205/2022 History of non-ST elevation myocardial infarction (NSTEMI) 01/19/201001/2010 Intradermal nevus 12/30/2014 right inferrior medial breast Keratosis, inflamed seborrheic 12/30/2014 right upper back Left carpal tunnel syndrome 01/04/[address] 12/03/2021 Daughter Truong is DPOA Low vitamin B12 level 04/06/2014 Lumbar radicular pain 05/26/2018 Added automatically from request for surgery [id number] Macular degeneration Left eye Medicare annual wellness [...] 2D ECHO (EXEP) 12/21/2019 EF=60%, 1+ TI, AR, AI 2D ECHO (EXEP) 02/17/2021 EF= 60%, [...] Other: See Comments Dehydrated, nauseated and week Mary Inhibitors Cough Chantix [Vareniclin* Other: See Comments [...] as needed for pain for up to 90days. citalopram (CELEXA) 40 mg tablet Take 1 tablet by mouth once daily. metoprolol succinate ER (TOPROL XL) 100 mg Take 1 tablet by mouth once daily. losartan (COZAAR) 100 mg tablet Take 1 tablet by mouth twice daily. levothyroxine (LEVOXYL) 125 mcg tablet Take one tab once a day Wed-Wed and 1.5 tabs on Wednesday, Takeon empty stomach. For Thyroid. ondansetron orally disintegrating [...] mcg/actuation inhaler Inhale 1 Puff as instructed twicedaily. sucralfate (CARAFATE) 1 gram tablet Take 1 [...] Pulse (!) 58 Ht 161.3 cm (5' 3.5) Wt 76.2 kg (168 lb) SpO2 98% BMI 29.29 kg/m BP 148/82 Pulse (!) 58 Ht 161.3 cm (5' 3.5) Wt 76.2 kg (168 lb) SpO2 98% [...] symmetric. Sensation to light touch and crainal nerves2-12 intact.. Health Maintenance List DTAP,TDAP,TD(1 - Tdap) [...] Lymph 1.00 - 4.00 k/uL 1.72 1.31 [place]% % 8.0 6.7 Abs [place] <0.87 k/uL 0.68 0.65 Eosin% % 2.8 [...] Negative Ketones, Urine Trace, Negative Negative Specific [place], Ur 1.005 - 1.030 1.030 Hemoglobin/Blood,Ur Negative, [...] diet of 1000 mg/day for under 50, 1200- 1500 mg/day for 50+ - Depression screening tool [...] which included preparing to see the patient, [id number] patient care, completing clinical documentation, performing a medically appropriate examination, counseling and educating the patient/family/caregiver and ordering medications, tests, or procedures. Max Rodriguez MD documented in this encounterLutheran Hospital02-27-2023 Miscellaneous Notes* Telephone Encounter - Max Rodriguez MD - 01/04/2023 1:34 PM EST The following approved medication requests have been transmitted electronically. Requested Prescriptions Signed Prescriptions Disp Refills traMADol (ULTRAM) 50 mg tablet 270 tablet 0 Sig: Take 1 tablet by mouth every 8 hours as needed for pain for up to 90 days. Authorizing Provider: MAX RODRIGUEZ MD * Telephone Encounter - Katherin Schmidt MA - 01/04/2023 9:36 AM EST Patient has been identified by name and [...] 01/2023 Last refill: 09/2022 documented in this encounterLutheran Hospital01-05-2023 History of Present illness Narrative* Bob Whiteside MD - 11/12/2022 10:24 AM ESTAssociated Order(s): Large Joint Arthro/Inj: bilateral knee joints Post-Procedure Diagnose(s): Chronic pain of both knees; Primary osteoarthritis of both knees Patient presents with: Right Knee - Established Patient, Follow Up: 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 injections Left Knee - Established Patient: 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 injections Bob Whiteside MD Department of Orthopaedics Orthopaedics [address] [facility] [address] Dept: [phone] Dept November 12, 2022 CHIEF COMPLAINT: Established Patient and Follow Up of the Right Knee (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 injections) andEstablished Patient of the Left Knee (13 weeks [...] knee joints Informed Consent Consent Obtained: Verbal [place] Protocol A moment to CARE was completed. [...] as needed for pain for up to 90days. citalopram (CELEXA) 40 mg tablet Take 1 tablet by mouth once daily. metoprolol succinate ER (TOPROL XL) 100 mg Take 1 tablet by mouth once daily. losartan (COZAAR) 100 mg tablet Take 1 tablet by mouth twice daily. levothyroxine (LEVOXYL) 125 mcg tablet Take one tab once a day Wed-Wed and 1.5 tabs on Wednesday, Takeon empty stomach. For Thyroid. ondansetron orally disintegrating [...] mcg/actuation inhaler Inhale 1 Puff as instructed twicedaily. albuterol HFA (PROVENTIL HFA, VENTOLIN HFA) 90 [...] for this visit. Allergies: Iodine, Hctz [Thiazides], Mary Inhibitors, Chantix [Varenicline], Lipitor [Atorvastatin Calcium], Mucinex [Guaifenesin], Pravachol [Pravastatin Sodium], and Zanaflex [Tizanidine] Bob Whiteside MD documented in this encounterLutheran Hospital11-28-2022 Miscellaneous Notes* Telephone Encounter - Savannah Lockett RN - 10/05/2022 8:18 AM EST Pts daughter called and is notified of providers results and instructions. She voices understanding. Went over appointment notes from Pts last appointment. Savannah Lockett RN * Telephone Encounter - Max Rodriguez MD - 10/04/2022 12:19 PM EST Let patient know urine culture came back positive. Antibiotic sent in to [facility]. The following approved medication requests have been transmitted electronically. Requested Prescriptions Signed Prescriptions Disp Refills cefADROxil (DURICEF) 500 mg capsule 14 capsule 0 Sig: Take 1 capsule by mouth twice daily for 7 days. Authorizing Provider: MAX RODRIGUEZ MD documented in this encounterLutheran Hospital11-23-2022 History of Present illness Narrative* Max Rodriguez MD - 09/30/2022 9:54 AM EST Chief Complaint Patient presents with: Recheck: Lump in right breast Possible bladder infection HPI Anne Marie Garza is a 82 year old female [...] of both knees 05/24/2020 Seeing Ortho: Dr. Whiteside Coronary artery 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 08/02/2015 Not seeing cardiology Degenerative disc disease, lumbar 05/26/2018 Elevated hemoglobin (HCC) 04/17/2020 to be rechecked 05/17/2020 Elevated hemoglobin A1c 12/30/2017 Epidermal inclusion cyst 09/09/2019 anterior chest wall excised 08/2019 Essential hypertension 01/26/2017 GERD without esophagitis 07/08/2022 Graves disease Heart attack (HCC) [facility] stent in heart History of COVID-19 07/08/202205/2022 History of non-ST elevation myocardial infarction (NSTEMI) 01/19/201001/2010 Intradermal nevus 12/30/2014 right inferrior medial breast Keratosis, inflamed seborrheic 12/30/2014 right upper back Left carpal tunnel syndrome 01/04/[address] 12/03/2021 Daughter Truong is DPOA Low vitamin B12 level 04/06/2014 Lumbar radicular pain 05/26/2018 Added automatically from request for surgery [id number] Medicare annual wellness visit, subsequent 06/21/2017 Medicare [...] 2D ECHO (EXEP) 12/21/2019 EF=60%, 1+ TI, AR, AI 2D ECHO (EXEP) 02/17/2021 EF= 60%, [...] Other: See Comments Dehydrated, nauseated and week Mary Inhibitors Cough Chantix [Vareniclin* Other: See Comments [...] day Wed-Wed and 1.5 tabs on Wednesday, Takeon empty stomach. For Thyroid. ondansetron orally disintegrating (ZOFRAN ODT) 4 mg disintegrating tablet Take 1 tablet by mouth every 6 hours as needed for nausea/vomiting. traMADol (ULTRAM) 50 mg tablet Take 1 tablet by mouth every 8 hours as needed for pain for up to 90days. omeprazole (PRILOSEC) 40 mg capsule Take 1 capsule by mouth twice daily. celecoxib (CELEBREX) 100 mg capsule Take 1 capsule by mouth twice daily. rosuvastatin (CRESTOR) 5 mg tablet Take 1 tablet by mouth once daily. fluticasone propionate (FLOVENT DISKUS) 100 mcg/actuation inhaler Inhale 1 Puff as instructed twicedaily. sucralfate (CARAFATE) 1 gram tablet Take 1 [...] All prescriptions have been APPROPRIATELY filled. No suspiciousactivity was identified. 09/30/2022 by Max Rodriguez MD 3. Osteoarthritis, unspecified osteoarthritis type, [...] 2 weeks Keep routine in January 2023 Max Rodriguez MD documented in this encounterLutheran Hospital10-03-2022 History of Present illness Narrative* Bob Whiteside MD - 08/10/2022 10:40 AM EDTAssociated Order(s): Large Joint Arthro/Inj: bilateral knee joints Post-Procedure Diagnose(s): Primary osteoarthritis of both knees; Chronic pain of both knees Bob Whiteside MD Department of Orthopaedics [facility]ed[facility] [address] [facility] [address] Dept: [phone] Dept August 10, 2022 CHIEF COMPLAINT: Established [...] Returns for her routine steroid injections. Ms. Anne Marie Garza was advised as to contrast therapies and/or to take analgesics/anti-inflammatories as needed and all contraindications were reviewed. OBJECTIVE: Ms. Anne Marie Garza is a pleasant 82 year old [...] knee joints Informed Consent Consent Obtained: Verbal [place] Protocol A moment to CARE was completed. [...] 2D ECHO (EXEP) 12/21/2019 EF=60%, 1+ TI, AR, AI 2D ECHO (EXEP) 02/17/2021 EF= 60%, [...] as needed for pain for up to 90days. celecoxib (CELEBREX) 100 mg capsule Take 1 capsule by mouth twice daily. levothyroxine (LEVOXYL) 125 mcg tablet Take one tab once a day Wed-Wed and 1.5 tabs on Wednesday, Takeon empty stomach. For Thyroid. citalopram (CELEXA) 40 [...] mcg/actuation inhaler Inhale 1 Puff as instructed twicedaily. cyanocobalamin (VITAMIN B-12) 1,000 mcg tab Take [...] for this visit. Allergies: Iodine, Hctz [Thiazides], Mary Inhibitors, Chantix [Varenicline], Lipitor [Atorvastatin Calcium], Mucinex [Guaifenesin], Pravachol [Pravastatin Sodium], and Zanaflex [Tizanidine] ROS: General (negative for fatigue, malaise, weight loss/gain) HEENT (negative for headache, earache, recent vision changes, sinus pain, sore throat) Respiratory (no recent shortness of breath, hemoptysis) CV (negative for chest tightness, palpitations) Musculoskeletal (see HPI) Psych (no depression, anxiety) Bob Whiteside MD documented in this encounterLutheran Hospital08-31-2022 Instructions* Patient Instructions* Max Rodriguez MD - 07/08/2022 6:12 PM EDT Please get labs and urine test done on or after 12/25/2022 prior to your next visit. documented in this encounterLutheran Hospital08-31-2022 History of Present illness Narrative* Max Rodriguez MD - 07/08/2022 4:57 PM EDT Chief Complaint Patient presents with: Recheck HPI Anne Marie Garza is a 82 year old female [...] of both knees 05/24/2020 Seeing Ortho: Dr. Whiteside Coronary artery 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 08/02/2015 Not seeing cardiology Degenerative disc disease, lumbar 05/26/2018 Elevated hemoglobin (HCC) 04/17/2020 to be rechecked 05/17/2020 Elevated hemoglobin A1c 12/30/2017 Epidermal inclusion cyst 09/09/2019 anterior chest wall excised 08/2019 Essential hypertension 01/26/2017 Graves disease Heart attack (HCC) [facility] stent in heart History of non-ST elevation myocardial infarction (NSTEMI) 01/19/201001/2010 Intradermal nevus 12/30/2014 right inferrior medial breast Keratosis, inflamed seborrheic 12/30/2014 right upper back Left carpal tunnel syndrome 01/04/[address] 12/03/2021 Daughter Truong is DPOA Low vitamin B12 level 04/06/2014 Lumbar radicular pain 05/26/2018 Added automatically from request for surgery [id number] Medicare annual wellness visit, subsequent 06/21/2017 Medicare [...] 2D ECHO (EXEP) 12/21/2019 EF=60%, 1+ TI, AR, AI 2D ECHO (EXEP) 02/17/2021 EF= 60%, [...] Other: See Comments Dehydrated, nauseated and week Mary Inhibitors Cough Chantix [Vareniclin* Other: See Comments [...] day Wed-Wed and 1.5 tabs on Wednesday, Takeon empty stomach. For Thyroid. citalopram (CELEXA) 40 [...] mcg/actuation inhaler Inhale 1 Puff as instructed twicedaily. albuterol HFA (PROVENTIL HFA, VENTOLIN HFA) 90 [...] reflux symptoms but getting nausea that was betterwith omeprazole twice a day. : See HPI [...] Abs Lymph 1.00 - 4.00 k/uL 1.72 [place]% % 8.0 Abs [place] <0.87 k/uL 0.68 Eosin% % 2.8 Abs [...] All prescriptions have been APPROPRIATELY filled. No suspiciousactivity was identified. 07/08/2022 by Max Rodriguez MD 15. Arthritis of both knees [...] UA, A1c, CBC, B12, TSH, Mg prior Max Rodriguez MD [facility] History of Present illness Narrative* Bob Whiteside MD - 04/30/2022 11:09 AM EDT Associated Order(s): Large Joint Arthro/Inj: bilateral knee joints Bob Whiteside MD Department of Orthopaedics Orthopa[facility]ics [address] [place] [address] Dept: [phone] Dept April 30, 2022 CHIEF COMPLAINT: Follow Up of the Left Knee, Follow Up of the Right Knee, and 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 visit OA bilateral knees (with injections given - wants injections) HPI Patient states injections helped for about a month. She would like injections today. Feels she getsbetter relief if given in her anterior. Taking [...] PLAN: She would like repeat injections. Ms. Anne Marie Garza was advised as to contrast therapies and/or to take analgesics/anti-inflammatories as needed and all contraindications were reviewed. OBJECTIVE: Ms. Anne Marie Garza is a pleasant 81 year old [...] knee joints Informed Consent Consent Obtained: Verbal [place] Protocol A moment to CARE was completed. [...] 2D ECHO (EXEP) 12/21/2019 EF=60%, 1+ TI, AR, AI 2D ECHO (EXEP) 02/17/2021 EF= 60%, [...] tablet Take one tab once a day Wed-Sat and 1.5 tabs on Wednesday, Takeon empty stomach. For Thyroid. citalopram (CELEXA) 40 [...] as needed for pain for up to 90days. fluticasone propionate (FLOVENT DISKUS) 100 mcg/actuation inhaler Inhale 1 Puff as instructed twicedaily. albuterol HFA (PROVENTIL HFA, VENTOLIN HFA) 90 [...] for this visit. Allergies: Iodine, Hctz [Thiazides], Mary Inhibitors, Chantix [Varenicline], Lipitor [Atorvastatin Calcium], Mucinex [Guaifenesin], Pravachol [Pravastatin Sodium], and Zanaflex [Tizanidine] ROS: General (negative for fatigue, malaise, weight loss/gain) HEENT (negative for headache, earache, recent vision changes, sinus pain, sore throat) Respiratory (no recent shortness of breath, hemoptysis) CV (negative for chest tightness, palpitations) Musculoskeletal (see HPI) Psych (no depression, anxiety) Bob Whiteside MD documented [facility] encounterL[facility]06[facility] History of Present illness Narrative* Fernanda Armstrong RN - 04/27/2022 12:03 PM EDT [facility] Enrollment Provider Action/FYI: h/o emphysema Agreed to insight home monitoring using the browser Her daughter Vidya will help her fill out questionnaire once a week Pt lives with her daughter Goal,ADL and fall risk assessment completed Patient referred by: [facility] Cristiane Contact made with patient: Yes - Patient identified by name and . Discussed care with patient Carolyn this is Fernanda Armstrong RN and I am calling from Max Rodriguez MD office [facility]. I am a RN [employer] with our [facility] Chronic Disease Management program. Max Rodriguez MD wanted me to reach out to help you manage your health at home. Our goal is to keep you well athome. We want to help you manage your chronic disease by providing a safety net of resources aroundyou, getting you the care you need in a timely manner, and hopefully keep you out of the ED and hospital. I will send you a few questions once a week through your [employer] account. It will automatically show up for you to complete. There are simple questions that will help us identify if you have any concerns or symptoms and I will call you to help get what you need. We will be able to connect you, review your symptoms, do an on demand visit, or communicate with Max Rodriguez MD if needed. I am going [...] goal align with programs offered [facility]? Yes Chronic Disease Management patient goals yes: stay healthy Most people know what to do to become healthier, yet struggle to put it into action on their own.Itcan be hard to maintain a healthy lifestyle, especially when life is so stressful. Can we connect you with a [facility] to find a program that could help you meet your goals? No Closing: Patient accepts respite care provider Thank you for your time today. I am excited to work together in managing your health! You will receive information on next steps through your [employer] account, and I will check back within a few weeks to ensure you have all that you need to use the program successfully. (Place name in care team and assign [facility] Pediatric Neuropsychologist questionnaire) documented in this encounterL[facility]05-[facility]22 Miscellaneous Notes* Telephone Encounter - Aleksey Fields Ma - 03/23/2022 1:34 PM EDT Patient's daughter notified, verbalized understanding. Aleksey Fields Ma * Telephone Encounter - Max Rodriguez MD - 03/23/2022 1:13 PM EDT Let daughter know I don't know why it made a large increase. What I want to do is continue the 125 mcg once a day Wed-Wed and take 1.5 on Wednesday. New script sent and order placed to get TSH repeated in two months. The following approved medication requests have been transmitted electronically. Signed Prescriptions Disp Refills levothyroxine (LEVOXYL) 125 mcg tablet 96 tablet 1 Sig: Take one tab once a day Wed-Sat and 1.5 tabs on Wednesday, Take on empty stomach. For Thyroid. CASTILLO: No Authorizing Provider: MAX RODRIGUEZ MD * Telephone Encounter - Aleksey Fields Ma - 03/23/2022 9:31 AM EDT Taking 125 mcg daily - Asking for refill to [facility]. Patient's daughter wants to know how TSH had made such a high jump? * Telephone Encounter - Max Rodriguez MD - 03/22/2022 1:47 PM EDT Let daughter know her mom's thyroid lab is showing she is not getting enough replacement. Find out if she is taking 125 mcg one a day or one Wed-Wed and / on Wednesday? My notes from 11/2021 say to do the former but the med list says the latter. documented in this encounterL[facility]05-13-[facility]22 History of Present illness Narrative* Max Rodriguez MD - 03/20/2022 2:08 PM EDT Chief Complaint Patient presents with: F/U 3 Month HPI Anne Marie Garza is a 81 year old female [...] of both knees 05/24/2020 Seeing Ortho: Dr. Whiteside Coronary artery 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 08/02/2015 Not seeing cardiology Degenerative disc disease, lumbar 05/26/2018 Elevated hemoglobin (HCC) 04/17/2020 to be rechecked 05/17/2020 Elevated hemoglobin A1c 12/30/2017 Epidermal inclusion cyst 09/09/2019 anterior chest wall excised 08/2019 Essential hypertension 01/26/2017 Graves disease Heart attack (HCC) [facility] stent in heart History of non-ST elevation myocardial infarction (NSTEMI) 01/19/201001/2010 Intradermal nevus 12/30/2014 right inferrior medial breast Keratosis, inflamed seborrheic 12/30/2014 right upper back Left carpal tunnel syndrome 01/04/[address] 12/03/2021 Daughter Truong is DPOA Low vitamin B12 level 04/06/2014 Lumbar radicular pain 05/26/2018 Added automatically from request for surgery [id number] Medicare annual wellness visit, subsequent 06/21/2017 Medicare [...] 2D ECHO (EXEP) 12/21/2019 EF=60%, 1+ TI, AR, AI 2D ECHO (EXEP) 02/17/2021 EF= 60%, [...] Other: See Comments Dehydrated, nauseated and week Mary Inhibitors Cough Chantix [Vareniclin* Other: See Comments [...] Take one tab once a day and 1/2 a tab on Wednesday, Take [...] mcg/actuation inhaler Inhale 1 Puff as instructed twicedaily. losartan (COZAAR) 100 mg tablet Take 1 [...] the tramadol. No changes Substance agreement resigned. PDMP website checked and validated. All prescriptions have been APPROPRIATELY filled. No suspiciousactivity was identified. 03/20/2022 by Max Rodriguez MD 2. Osteoarthritis, unspecified osteoarthritis type, [...] C-IV CASTILLO: No Has f/u in May. Max Rodriguez MD documented in this encounterL[facility]02-13-[facility] Evaluation note* Diagnosis Onset Date Resolution Status Dyspnea on minimal exertion chronic Chronic diastolic (congestive) heart failure chronic Essential hypertension chron ic History of coronary artery stent placement December 212019 chronic HLD (hyperlipidemia) [facility] Work Phone: 1(722) 319-984003-14-2010 History of Past illness Narrative* Problem Noted Date Resolved Date SUMMARY 01/19/2010 11/04/2011 Overview: 69 yo woman with HLD, COPD, hypothyroidism p/w chest pain and +troponin, consistent with NSTEMI. documented as of this encounter (statuses as of 03/22/2022) [facility] of [facility] illness Narrative* Problem Noted Date Resolved Date SUMMARY 01/19/2010 11/04/2011 Overview: 69 yo woman with HLD, COPD, hypothyroidism p/w chest pain and +troponin, consistent with NSTEMI. documented as of this encounter (statuses as of 03/23/2022) [facility] Narrative* Problem Noted Date Resolved Date SUMMARY 01/19/2010 11/04/2011 Overview: 69 yo woman with HLD, COPD, hypothyroidism p/w chest pain and +troponin, consistent with NSTEMI. documented as of this encounter (statuses as of 04/28/2022) [facility] Narrative* Problem Noted Date Resolved Date SUMMARY 01/19/2010 11/04/2011 Overview: 69 yo woman with HLD, COPD, hypothyroidism p/w chest pain and +troponin, consistent with NSTEMI. documented as of this encounter (statuses as of 05/20/2022) [facility] Narrative* Problem Noted Date Resolved Date SUMMARY 01/19/2010 11/04/2011 Overview: 69 yo woman with HLD, COPD, hypothyroidism p/w chest pain and +troponin, consistent with NSTEMI. documented as of this encounter (statuses as of 07/10/2022) [facility] Narrative* Problem Noted Date Resolved Date SUMMARY 01/19/2010 11/04/2011 Overview: 69 yo woman with HLD, COPD, hypothyroidism p/w chest pain and +troponin, consistent with NSTEMI. documented as of this encounter (statuses as of 08/11/2022) [facility] Narrative* Problem Noted Date Resolved Date SUMMARY 01/19/2010 11/04/2011 Overview: 69 yo woman with HLD, COPD, hypothyroidism p/w chest pain and +troponin, consistent with NSTEMI. documented as of this encounter (statuses as of 10/04/2022) [facility] Narrative* Problem Noted Date Resolved Date SUMMARY 01/19/2010 11/04/2011 Overview: 69 yo woman with HLD, COPD, hypothyroidism p/w chest pain and +troponin, consistent with NSTEMI. documented as of this encounter (statuses as of 10/05/2022) [facility] Narrative* Problem Noted Date Resolved Date SUMMARY 01/19/2010 11/04/2011 Overview: 69 yo woman with HLD, COPD, hypothyroidism p/w chest pain and +troponin, consistent with NSTEMI. documented as of this encounter (statuses as of 11/13/2022) [facility] Narrative* Problem Noted Date Resolved Date SUMMARY 01/19/2010 11/04/2011 Overview: 69 yo woman with HLD, COPD, hypothyroidism p/w chest pain and +troponin, consistent with NSTEMI. documented as of this encounter (statuses as of 01/04/2023) [facility] Narrative* Problem Noted Date Resolved Date SUMMARY 01/19/2010 11/04/2011 Overview: 69 yo woman with HLD, COPD, hypothyroidism p/w chest pain and +troponin, consistent with NSTEMI. documented as of this encounter (statuses as of 01/22/2023) [facility] Narrative* Problem Noted Date Resolved Date SUMMARY 01/19/2010 11/04/2011 Overview: 69 yo woman with HLD, COPD, hypothyroidism p/w chest pain and +troponin, consistent with NSTEMI. documented as of this encounter (statuses as of 01/25/2023) [facility] Narrative* Problem Noted Date Resolved Date SUMMARY 01/19/2010 11/04/2011 Overview: 69 yo woman with HLD, COPD, hypothyroidism p/w chest pain and +troponin, consistent with NSTEMI. documented as of this encounter (statuses as of 03/15/2023) [facility] Narrative* Problem Noted Date Resolved Date SUMMARY 01/19/2010 11/04/2011 Overview: 69 yo woman with HLD, COPD, hypothyroidism p/w chest pain and +troponin, consistent with NSTEMI. documented as of this encounter (statuses as of 04/09/2023) [facility] Narrative* Problem Noted Date Resolved Date SUMMARY 01/19/2010 11/04/2011 Overview: 69 yo woman with HLD, COPD, hypothyroidism p/w chest pain and +troponin, consistent with NSTEMI. documented as of this encounter (statuses as of 04/23/2023) [facility] Narrative* Problem Noted Date Resolved Date SUMMARY 01/19/2010 11/04/2011 Overview: 69 yo woman with HLD, COPD, hypothyroidism p/w chest pain and +troponin, consistent with NSTEMI. documented as of this encounter (statuses as of 05/13/2023) [address]14-2010 History of Past illness Narrative* Problem Noted Date Resolved Date SUMMARY 01/19/2010 11/04/2011 Overview: 69 yo woman with HLD, COPD, hypothyroidism p/w chest pain and +troponin, consistent with NSTEMI. documented as of this encounter (statuses as of 05/13/2023) [facility] Narrative* Problem Noted Date Diagnosed Date Resolved Date SUMMARY 01/19/2010 11/04/2011 Overview: 69 yo woman with HLD, COPD, hypothyroidism p/w chest pain and +troponin, consistent with NSTEMI. documented as of this encounter (statuses as of 05/20/2023) [address]14-2010 History of Past illness Narrative* Problem Noted Date Diagnosed Date Resolved Date SUMMARY 01/19/2010 11/04/2011 Overview: 69 yo woman with HLD, COPD, hypothyroidism p/w chest pain and +troponin, consistent with NSTEMI. documented as of this encounter (statuses as of 06/29/2023) [facility] Narrative* Problem Noted Date Diagnosed Date Resolved Date SUMMARY 01/19/2010 11/04/2011 Overview: 69 yo woman with HLD, COPD, hypothyroidism p/w chest pain and +troponin, consistent with NSTEMI. documented as of this encounter (statuses as of 07/08/2023) [facility] Narrative* Problem Noted Date Diagnosed Date Resolved Date SUMMARY 01/19/2010 11/04/2011 Overview: 69 yo woman with HLD, COPD, hypothyroidism p/w chest pain and +troponin, consistent with NSTEMI. documented as of this encounter (statuses as of 07/14/2023) [place] [id number] History of Past illness Narrative* Problem Noted Date Diagnosed Date Resolved Date SUMMARY 01/19/2010 11/04/2011 Overview: 69 yo woman with HLD, COPD, hypothyroidism p/w chest pain and +troponin, consistent with NSTEMI. documented as of this encounter (statuses as of 07/23/2023) [facility] Narrative* Problem Noted Date Diagnosed Date Resolved Date SUMMARY 01/19/2010 11/04/2011 Overview: 69 yo woman with HLD, COPD, hypothyroidism p/w chest pain and +troponin, consistent with NSTEMI. documented as of this encounter (statuses as of 08/30/2023) [facility] Narrative* Problem Noted Date Diagnosed Date Resolved Date SUMMARY 01/19/2010 11/04/2011 Overview: 69 yo woman with HLD, COPD, hypothyroidism p/w chest pain and +troponin, consistent with NSTEMI. documented as of this encounter (statuses as of 08/30/2023) [place] [id number] History of Past illness Narrative* Problem Noted Date Diagnosed Date Resolved Date SUMMARY 01/19/2010 11/04/2011 Overview: 69 yo woman with HLD, COPD, hypothyroidism p/w chest pain and +troponin, consistent with NSTEMI. documented as of this encounter (statuses as of 08/31/2023) [facility] Narrative* Problem Noted Date Diagnosed Date Resolved Date SUMMARY 01/19/2010 11/04/2011 Overview: 69 yo woman with HLD, COPD, hypothyroidism p/w chest pain and +troponin, consistent with NSTEMI. documented as of this encounter (statuses as of 10/11/2023) [facility] Narrative* Problem Noted Date Diagnosed Date Resolved Date SUMMARY 01/19/2010 11/04/2011 Overview: 69 yo woman with HLD, COPD, hypothyroidism p/w chest pain and +troponin, consistent with NSTEMI. documented as of this encounter (statuses as of 10/18/2023) [facility] Narrative* Problem Noted Date Diagnosed Date Resolved Date SUMMARY 01/19/2010 11/04/2011 Overview: 69 yo woman with HLD, COPD, hypothyroidism p/w chest pain and +troponin, consistent with NSTEMI. documented as of this encounter (statuses as of 10/22/2023) [facility] Narrative* Problem Noted Date Diagnosed Date Resolved Date SUMMARY 01/19/2010 11/04/2011 Overview: 69 yo woman with HLD, COPD, hypothyroidism p/w chest pain and +troponin, consistent with NSTEMI. documented as of this encounter (statuses as of 12/10/2023) [facility] Narrative* Problem Noted Date Diagnosed Date Resolved Date SUMMARY 01/19/2010 11/04/2011 Overview: 69 yo woman with HLD, COPD, hypothyroidism p/w chest pain and +troponin, consistent with NSTEMI. documented as of this encounter (statuses as of 12/14/2023) [facility] Narrative* Problem Noted Date Diagnosed Date Resolved Date SUMMARY 01/19/2010 11/04/2011 Overview: 69 yo woman with HLD, COPD, hypothyroidism p/w chest pain and +troponin, consistent with NSTEMI. documented as of this encounter (statuses as of 12/16/2023) [facility] Narrative* Problem Noted Date Diagnosed Date Resolved Date SUMMARY 01/19/2010 11/04/2011 Overview: 69 yo woman with HLD, COPD, hypothyroidism p/w chest pain and +troponin, consistent with NSTEMI. documented as of this encounter (statuses as of 12/21/2023) [facility] Narrative* Problem Noted Date Diagnosed Date Resolved Date SUMMARY 01/19/2010 11/04/2011 Overview: 69 yo woman with HLD, COPD, hypothyroidism p/w chest pain and +troponin, consistent with NSTEMI. documented as of this encounter (statuses as of 12/21/2023) [facility] Narrative* Problem Noted Date Diagnosed Date Resolved Date SUMMARY 01/19/2010 11/04/2011 Overview: 69 yo woman with HLD, COPD, hypothyroidism p/w chest pain and +troponin, consistent with NSTEMI. documented as of this encounter (statuses as of 12/22/2023) [facility] Narrative* Problem Noted Date Diagnosed Date Resolved Date SUMMARY 01/19/2010 11/04/2011 Overview: 69 yo woman with HLD, COPD, hypothyroidism p/w chest pain and +troponin, consistent with NSTEMI. documented as of this encounter (statuses as of 12/24/2023) [address]14-2010 History of Past illness Narrative* Problem Noted Date Diagnosed Date Resolved Date SUMMARY 01/19/2010 11/04/2011 Overview: 69 yo woman with HLD, COPD, hypothyroidism p/w chest pain and +troponin, consistent with NSTEMI. documented as of this encounter (statuses as of 01/07/2024) [facility] Narrative* Problem Noted Date Diagnosed Date Resolved Date SUMMARY 01/19/2010 11/04/2011 Overview: 69 yo woman with HLD, COPD, hypothyroidism p/w chest pain and +troponin, consistent with NSTEMI. documented as of this encounter (statuses as of 01/10/2024) [facility] Narrative* Problem Noted Date Diagnosed Date Resolved Date SUMMARY 01/19/2010 11/04/2011 Overview: 69 yo woman with HLD, COPD, hypothyroidism p/w chest pain and +troponin, consistent with NSTEMI. documented as of this encounter (statuses as of 01/20/2024) [facility] Narrative* Problem Noted Date Diagnosed Date Resolved Date SUMMARY 01/19/2010 11/04/2011 Overview: 69 yo woman with HLD, COPD, hypothyroidism p/w chest pain and +troponin, consistent with NSTEMI. documented as of this encounter (statuses as of 01/26/2024) [facility] Narrative* Problem Noted Date Diagnosed Date Resolved Date SUMMARY 01/19/2010 11/04/2011 Overview: 69 yo woman with HLD, COPD, hypothyroidism p/w chest pain and +troponin, consistent with NSTEMI. documented as of this encounter (statuses as of 01/27/2024) [facility] Narrative* Problem Noted Date Diagnosed Date Resolved Date SUMMARY 01/19/2010 11/04/2011 Overview: 69 yo woman with HLD, COPD, hypothyroidism p/w chest pain and +troponin, consistent with NSTEMI. documented as of this encounter (statuses as of 02/11/2024) [facility] Clinical Note Date No Information [facility] Work Phone: Discharge summary* Clinical Note Date No Information [facility] Work Phone: Evaluation note* Diagnosis Arthritis of both knees- Primary Unspecified arthropathy, lower leg Osteoarthritis, unspecified osteoarthritis type, unspecified site Medication management Encounter for long-term (current) use of other medications [facility] Diagnosis Acquired hypothyroidism- Primary Unspecified hypothyroidism [facility]* Diagnosis Onset Date Resolution Status Dyspnea on minimal exertion acute Chronic diastolic (congestive) heart failure chronic Nicotine dependence [facility] Work Phone: Evaluation note* Diagnosis Primary osteoarthritis of both knees- Primary Primary localized osteoarthrosis, lower leg Chronic pain of both knees [facility]* Diagnosis Essential hypertension- Primary Unspecified essential [...] esophagitis Esophageal reflux [facility] Primary osteoarthritis of both knees- Primary Primary localized osteoarthrosis, lower leg Chronic pain of both knees [facility] Diagnosis Urine frequency- Primary Urinary frequency Arthritis of both knees Unspecified arthropathy, lower leg Osteoarthritis, unspecified osteoarthritis type, unspecified site Mass of right breast, unspecified quadrant [facility] Diagnosis Chronic pain of both knees- Primary Primary osteoarthritis of both knees Primary localized osteoarthrosis, lower leg [facility] Diagnosis Arthritis of both knees Unspecified arthropathy, lower leg Osteoarthritis, unspecified osteoarthritis type, unspecified site [facility] Medicare annual wellness visit, subsequent- [...] breast, unspecified laterality documented in this encounter [facility] Diagnosis Primary osteoarthritis of both knees- Primary Primary localized osteoarthrosis, lower leg [facility] Diagnosis Arthritis of both knees Unspecified arthropathy, lower leg Osteoarthritis, unspecified osteoarthritis type, unspecified site documented in this encounter [facility] note* Diagnosis Discolored skin- Primary Dyschromia, unspecified Arthritis of both knees Unspecified arthropathy, lower leg Encounter for immunization Need for other specified prophylactic vaccination against single bacterial disease documented in this encounter [facility] noteNo assessment information availableWFayette [facility] Work Phone: Evaluation note* Diagnosis Pain in both knees, unspecified chronicity- Primary documented in this encounter [facility] note* Diagnosis Primary osteoarthritis of both knees- Primary Primary localized osteoarthrosis, lower leg Chronic pain of both knees documented in this encounter [facility] note* Diagnosis Acquired hypothyroidism- Primary Unspecified hypothyroidism documented in this encounter [facility] note* Diagnosis Arthritis of both knees Unspecified arthropathy, lower leg Osteoarthritis, unspecified osteoarthritis type, unspecified site documented in this encounter [facility] note* Diagnosis Essential hypertension- Primary Unspecified essential [...] of other medications documented in this encounter [facility] note* Diagnosis Essential hypertension- Primary Unspecified essential hypertension Encounter for immunization Need for other specified prophylactic vaccination against single bacterial disease documented in this encounter [facility] note* Diagnosis Primary osteoarthritis of both knees- Primary Primary localized osteoarthrosis, lower leg Chronic pain of both knees documented in this encounter [facility] note* Diagnosis Acquired hypothyroidism- Primary Unspecified hypothyroidism documented in this encounter [facility] note* Diagnosis Arthritis of both knees Unspecified arthropathy, lower leg Osteoarthritis, unspecified osteoarthritis type, unspecified site documented in this encounter [facility] note* Diagnosis Acquired hypothyroidism Unspecified hypothyroidism documented in this encounter [facility] note* Diagnosis Essential hypertension- Primary Unspecified essential hypertension [facility] Diagnosis Coronary artery 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- Primary Decreased stamina Other malaise and fatigue HATFIELD (dyspnea on exertion) Other dyspnea and respiratory abnormality Dizziness Dizziness and giddiness Jaundice Jaundice, unspecified, not of [facility] Diagnosis Hyperkalemia- Primary Hyperpotassemia [facility]* Diagnosis Arthritis of both knees Unspecified arthropathy, lower leg Osteoarthritis, unspecified osteoarthritis type, unspecified site [facility]* Diagnosis Chronic pain of both knees- Primary Primary osteoarthritis of both knees Primary localized osteoarthrosis, lower leg [facility]* Diagnosis Medicare annual wellness visit, subsequent- Primary Routine general medical examination at a health care facility Essential hypertension Unspecified essential hypertension Mixed hyperlipidemia Elevated hemoglobin A1c Other abnormal blood chemistry Acquired hypothyroidism Unspecified hypothyroidism Elevated hemoglobin (HCC) Other hemoglobinopathies GERD without esophagitis Esophageal reflux Stage 3a chronic kidney disease (HCC) Pulmonary emphysema, unspecified emphysema type (HCC) Coronary artery 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 Bilateral carotid artery stenosis Occlusion and stenosis of carotid artery without mention of cerebral infarction Recurrent major depressive disorder, in partial remission (HCC) Anxiety Anxiety state, unspecified Low vitamin B12 level Other B-complex deficiencies Obesity, Class I, BMI 30-34.9 Obesity, unspecified Ex-smoker Personal history of tobacco use, presenting hazards to health Arthritis of both knees Unspecified arthropathy, lower leg Advance directive discussed with patient Other specified counseling Severe obstructive sleep apnea AHI 32.5 Obstructive sleep apnea (adult) (pediatric) Osteoarthritis, unspecified osteoarthritis type, unspecified site Jaundice Jaundice, unspecified, not of Medication management Encounter for long-term (current) use of other medications [facility] Essential hypertension- Primary Unspecified essential hypertension Acquired hypothyroidism Unspecified hypothyroidism [facility]* Diagnosis Arthritis of both knees Unspecified arthropathy, lower leg Osteoarthritis, unspecified osteoarthritis type, unspecified site [facility] Diagnosis Essential hypertension- Primary Unspecified essential hypertension Mixed hyperlipidemia Elevated hemoglobin A1c Other abnormal blood chemistry Acquired hypothyroidism Unspecified hypothyroidism Coronary artery 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 Elevated hemoglobin (HCC) Other hemoglobinopathies GERD without esophagitis Esophageal reflux Stage 3a chronic kidney disease (HCC) Pulmonary emphysema, unspecified emphysema type (HCC) Bilateral carotid artery stenosis Occlusion and stenosis of carotid artery without mention of cerebral infarction Recurrent major depressive disorder, in partial remission (HCC) Anxiety Anxiety state, unspecified Low vitamin B12 level Other B-complex deficiencies Severe obstructive sleep apnea AHI 32.5 Obstructive sleep apnea (adult) (pediatric) Over weight Overweight Need for vaccination Need for prophylactic vaccination and inoculation against unspecified single disease [facility]* Diagnosis Arthritis of both knees- Primary Unspecified arthropathy, lower leg Chronic pain of both knees [facility]* Diagnosis Pre-operative examination- Primary Preoperative examination, unspecified Hx of colonic polyp Personal history of colonic polyps Coronary artery 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 Essential hypertension Unspecified essential hypertension Mixed hyperlipidemia Severe obstructive sleep apnea AHI 32.5 Obstructive sleep apnea (adult) (pediatric) Pulmonary emphysema, unspecified emphysema type (HCC) Acquired hypothyroidism Unspecified hypothyroidism Recurrent major depressive disorder, in partial remission (HCC) Smoker Tobacco use disorder Arthritis of both knees Unspecified arthropathy, lower leg Osteoarthritis, unspecified osteoarthritis type, unspecified site [facility]* Diagnosis Pre-operative examination- Primary Preoperative examination, unspecified Hx of colonic polyp Personal history of colonic polyps Coronary artery 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 Essential hypertension Unspecified essential hypertension Mixed hyperlipidemia Severe obstructive sleep apnea AHI 32.5 Obstructive sleep apnea (adult) (pediatric) Pulmonary emphysema, unspecified emphysema type (HCC) Acquired hypothyroidism Unspecified hypothyroidism Recurrent major depressive disorder, in partial remission (HCC) Smoker Tobacco use disorder Acute pain of right shoulder documented in this encounter [facility] note* Diagnosis Pre-operative examination- Primary Preoperative examination, unspecified Hx of colonic polyp Personal history of colonic polyps Coronary artery 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 Essential hypertension Unspecified essential hypertension Mixed hyperlipidemia Severe obstructive sleep apnea AHI 32.5 Obstructive sleep apnea (adult) (pediatric) Pulmonary emphysema, unspecified emphysema type (HCC) Acquired hypothyroidism Unspecified hypothyroidism Recurrent major depressive disorder, in partial remission (HCC) Smoker Tobacco use disorder Acquired hypothyroidism Unspecified hypothyroidism [facility]* Diagnosis Pre-operative examination- Primary Preoperative examination, unspecified Hx of colonic polyp Personal history of colonic polyps Coronary artery 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 Essential hypertension Unspecified essential hypertension Mixed hyperlipidemia Severe obstructive sleep apnea AHI 32.5 Obstructive sleep apnea (adult) (pediatric) Pulmonary emphysema, unspecified emphysema type (HCC) Acquired hypothyroidism Unspecified hypothyroidism Recurrent major depressive disorder, in partial remission (HCC) Smoker Tobacco use disorder Mixed hyperlipidemia- Primary Encounter for immunization Need for other specified prophylactic vaccination against single bacterial disease Essential hypertension Unspecified essential hypertension Elevated hemoglobin A1c Other abnormal blood chemistry Acquired hypothyroidism Unspecified hypothyroidism GERD without esophagitis Esophageal reflux Elevated hemoglobin (HCC) Other hemoglobinopathies Coronary artery 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 Bilateral carotid artery stenosis Occlusion and stenosis of carotid artery without mention of cerebral infarction Pulmonary emphysema, unspecified emphysema type (HCC) Stage 3a chronic kidney disease (HCC) Recurrent major depressive disorder, in partial remission (HCC) Anxiety Anxiety state, unspecified Low vitamin B12 level Other B-complex deficiencies Pain in right hip Pain in joint, pelvic region and thigh Right lumbar pain Lumbago Medication management Encounter for long-term (current) use of other medications Osteoarthritis, unspecified osteoarthritis type, unspecified site [facility]* Diagnosis Oral mucocele- Primary Other and unspecified diseases of the oral soft tissues documented in this encounter [facility] Work Phone: Evaluation note* Diagnosis Pre-operative examination- Primary Preoperative examination, unspecified Hx of colonic polyp Personal history of colonic polyps Coronary artery 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 Essential hypertension Unspecified essential hypertension Mixed hyperlipidemia Severe obstructive sleep apnea AHI 32.5 Obstructive sleep apnea (adult) (pediatric) Pulmonary emphysema, unspecified emphysema type (HCC) Acquired hypothyroidism Unspecified hypothyroidism Recurrent major depressive disorder, in partial remission (HCC) Smoker Tobacco use disorder Arthritis of both knees- Primary Unspecified arthropathy, lower leg Chronic pain of both knees [facility]* Diagnosis Pre-operative examination- Primary Preoperative examination, unspecified Hx of colonic polyp Personal history of colonic polyps Coronary artery 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 Essential hypertension Unspecified essential hypertension Mixed hyperlipidemia Severe obstructive sleep apnea AHI 32.5 Obstructive sleep apnea (adult) (pediatric) Pulmonary emphysema, unspecified emphysema type (HCC) Acquired hypothyroidism Unspecified hypothyroidism Recurrent major depressive disorder, in partial remission (HCC) Smoker Tobacco use disorder Arthritis of both knees Unspecified arthropathy, lower leg Osteoarthritis, unspecified osteoarthritis type, unspecified site [facility]* Diagnosis Pre-operative examination- Primary Preoperative examination, unspecified Hx of colonic polyp Personal history of colonic polyps Coronary artery 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 Essential hypertension Unspecified essential hypertension Mixed hyperlipidemia Severe obstructive sleep apnea AHI 32.5 Obstructive sleep apnea (adult) (pediatric) Pulmonary emphysema, unspecified emphysema type (HCC) Acquired hypothyroidism Unspecified hypothyroidism Recurrent major depressive disorder, in partial remission (HCC) Smoker Tobacco use disorder Acquired hypothyroidism Unspecified hypothyroidism [facility]* Diagnosis Pre-operative examination- Primary Preoperative examination, unspecified Hx of colonic polyp Personal history of colonic polyps Coronary artery 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 Essential hypertension Unspecified essential hypertension Mixed hyperlipidemia Severe obstructive sleep apnea AHI 32.5 Obstructive sleep apnea (adult) (pediatric) Pulmonary emphysema, unspecified emphysema type (HCC) Acquired hypothyroidism Unspecified hypothyroidism Recurrent major depressive disorder, in partial remission (HCC) Smoker Tobacco use disorder Arthritis of both knees Unspecified arthropathy, lower leg Osteoarthritis, unspecified osteoarthritis type, unspecified site [facility]* Diagnosis Pre-operative examination- Primary Preoperative examination, unspecified Hx of colonic polyp Personal history of colonic polyps Coronary artery 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 Essential hypertension Unspecified essential hypertension Mixed hyperlipidemia Severe obstructive sleep apnea AHI 32.5 Obstructive sleep apnea (adult) (pediatric) Pulmonary emphysema, unspecified emphysema type (HCC) Acquired hypothyroidism Unspecified hypothyroidism Recurrent major depressive disorder, in partial remission (HCC) Smoker Tobacco use disorder Pharyngitis, unspecified etiology- Primary Neck mass Swelling, mass, or lump in head and neck SOB (shortness of breath) Shortness of breath HATFIELD (dyspnea on exertion) Other dyspnea and respiratory abnormality Decreased stamina Other malaise and fatigue Coronary artery 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 Pulmonary emphysema, unspecified emphysema type (HCC) Dysphagia, unspecified type [facility]* Diagnosis Pre-operative examination- Primary Preoperative examination, unspecified Hx of colonic polyp Personal history of colonic polyps Coronary artery 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 Essential hypertension Unspecified essential hypertension Mixed hyperlipidemia Severe obstructive sleep apnea AHI 32.5 Obstructive sleep apnea (adult) (pediatric) Pulmonary emphysema, unspecified emphysema type (HCC) Acquired hypothyroidism Unspecified hypothyroidism Recurrent major depressive disorder, in partial remission (HCC) Smoker Tobacco use disorder Esophageal dysphagia- Primary Dysphagia, pharyngoesophageal phase [facility]* Diagnosis Pre-operative examination- Primary Preoperative examination, unspecified Hx of colonic polyp Personal history of colonic polyps Coronary artery 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 Essential hypertension Unspecified essential hypertension Mixed hyperlipidemia Severe obstructive sleep apnea AHI 32.5 Obstructive sleep apnea (adult) (pediatric) Pulmonary emphysema, unspecified emphysema type (HCC) Acquired hypothyroidism Unspecified hypothyroidism Recurrent major depressive disorder, in partial remission (HCC) Smoker Tobacco use disorder Arthritis of both knees- Primary Unspecified arthropathy, lower leg Chronic pain of both knees [facility]* Diagnosis Pre-operative examination- Primary Preoperative examination, unspecified Hx of colonic polyp Personal history of colonic polyps Coronary artery 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 Essential hypertension Unspecified essential hypertension Mixed hyperlipidemia Severe obstructive sleep apnea AHI 32.5 Obstructive sleep apnea (adult) (pediatric) Pulmonary emphysema, unspecified emphysema type (HCC) Acquired hypothyroidism Unspecified hypothyroidism Recurrent major depressive disorder, in partial remission (HCC) Smoker Tobacco use disorder Pulmonary emphysema, unspecified emphysema type (HCC) documented [facility]* Diagnosis Pre-operative examination- Primary Preoperative examination, unspecified Hx of colonic polyp Personal history of colonic polyps Coronary artery 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 Essential hypertension Unspecified essential hypertension Mixed hyperlipidemia Severe obstructive sleep apnea AHI 32.5 Obstructive sleep apnea (adult) (pediatric) Pulmonary emphysema, unspecified emphysema type (HCC) Acquired hypothyroidism Unspecified hypothyroidism Recurrent major depressive disorder, in partial remission (HCC) Smoker Tobacco use disorder HATFIELD (dyspnea on exertion)- Primary Other dyspnea and respiratory abnormality Chronic cough Cough Former cigarette smoker Personal history of tobacco use, presenting hazards to health Coronary artery disease involving [place] coronary artery of [place] heart without angina pectoris [facility]* Diagnosis Pre-operative examination- Primary Preoperative examination, unspecified Hx of colonic polyp Personal history of colonic polyps Coronary artery 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 Essential hypertension Unspecified essential hypertension Mixed hyperlipidemia Severe obstructive sleep apnea AHI 32.5 Obstructive sleep apnea (adult) (pediatric) Pulmonary emphysema, unspecified emphysema type (HCC) Acquired hypothyroidism Unspecified hypothyroidism Recurrent major depressive disorder, in partial remission (HCC) Smoker Tobacco use disorder Pain- Primary Generalized pain [facility]* Diagnosis Pre-operative examination- Primary Preoperative examination, unspecified Hx of colonic polyp Personal history of colonic polyps Coronary artery 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 Essential hypertension Unspecified essential hypertension Mixed hyperlipidemia Severe obstructive sleep apnea AHI 32.5 Obstructive sleep apnea (adult) (pediatric) Pulmonary emphysema, unspecified emphysema type (HCC) Acquired hypothyroidism Unspecified hypothyroidism Recurrent major depressive disorder, in partial remission (HCC) Smoker Tobacco use disorder SOB (shortness of breath)- Primary Shortness of breath Lymphadenopathy Enlargement of lymph nodes Acquired hypothyroidism Unspecified hypothyroidism Essential hypertension Unspecified essential hypertension Low vitamin B12 level Other B-complex deficiencies [facility]* Diagnosis Pre-operative examination- Primary Preoperative examination, unspecified Hx of colonic polyp Personal history of colonic polyps Coronary artery 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 Essential hypertension Unspecified essential hypertension Mixed hyperlipidemia Severe obstructive sleep apnea AHI 32.5 Obstructive sleep apnea (adult) (pediatric) Pulmonary emphysema, unspecified emphysema type (HCC) Acquired hypothyroidism Unspecified hypothyroidism Recurrent major depressive disorder, in partial remission Smoker Tobacco use disorder Trochanteric bursitis of right hip- Primary Enthesopathy of hip region Primary osteoarthritis of both knees Primary localized osteoarthrosis, lower leg [facility]* Diagnosis Pre-operative examination- Primary Preoperative examination, unspecified Hx of colonic polyp Personal history of colonic polyps Coronary artery 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 Essential hypertension Unspecified essential hypertension Mixed hyperlipidemia Severe obstructive sleep apnea AHI 32.5 Obstructive sleep apnea (adult) (pediatric) Pulmonary emphysema, unspecified emphysema type (HCC) Acquired hypothyroidism Unspecified hypothyroidism Recurrent major depressive disorder, in partial remission Smoker Tobacco use disorder Pain Generalized pain documented in this encounter [facility] note* Diagnosis Pre-operative examination- Primary Preoperative examination, unspecified Hx of colonic polyp Personal history of colonic polyps Coronary artery 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 Essential hypertension Unspecified essential hypertension Mixed hyperlipidemia Severe obstructive sleep apnea AHI 32.5 Obstructive sleep apnea (adult) (pediatric) Pulmonary emphysema, unspecified emphysema type (HCC) Acquired hypothyroidism Unspecified hypothyroidism Recurrent major depressive disorder, in partial remission Smoker Tobacco use disorder Medicare annual wellness visit, subsequent- Primary Routine general medical examination at a health care facility Acquired hypothyroidism Unspecified hypothyroidism Essential hypertension Unspecified essential hypertension Mixed hyperlipidemia Coronary artery 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 Valvular heart disease Endocarditis, valve unspecified, unspecified cause Pulmonary emphysema, unspecified emphysema type (HCC) Severe obstructive sleep apnea AHI 32.5 Obstructive sleep apnea (adult) (pediatric) GERD without esophagitis Esophageal reflux Stage 3a chronic kidney disease (HCC) Macular degeneration of both eyes, unspecified type Advance directive discussed with patient Other specified counseling Degeneration of intervertebral disc of lumbar region, unspecified whether pain present Osteoarthritis, unspecified osteoarthritis type, unspecified site Encounter for screening for cardiovascular disorders Screening for other and unspecified cardiovascular conditions [facility]* Diagnosis Pre-operative examination- Primary Preoperative examination, unspecified Hx of colonic polyp Personal history of colonic polyps Coronary artery 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 Essential hypertension Unspecified essential hypertension Mixed hyperlipidemia Severe obstructive sleep apnea AHI 32.5 Obstructive sleep apnea (adult) (pediatric) Pulmonary emphysema, unspecified emphysema type (HCC) Acquired hypothyroidism Unspecified hypothyroidism Recurrent major depressive disorder, in partial remission Smoker Tobacco use disorder Arthritis of both knees- Primary Unspecified arthropathy, lower leg Acute pain of right knee Cyanosis Decreased pulses in feet Other symptoms involving cardiovascular system Acquired hypothyroidism Unspecified hypothyroidism Elevated hemoglobin A1c Other abnormal blood chemistry Stage 3a chronic kidney disease (HCC) Low vitamin B12 level Other B-complex deficiencies [facility] Diagnosis Pre-operative examination- Primary Preoperative examination, unspecified Hx of colonic polyp Personal history of colonic polyps Coronary artery 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 Essential hypertension Unspecified essential hypertension Mixed hyperlipidemia Severe obstructive sleep apnea AHI 32.5 Obstructive sleep apnea (adult) (pediatric) Pulmonary emphysema, unspecified emphysema type (HCC) Acquired hypothyroidism Unspecified hypothyroidism Recurrent major depressive disorder, in partial remission Smoker Tobacco use disorder Coronary artery 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- Primary SOB (shortness of breath) Shortness of breath Chest pain, unspecified type [facility] Diagnosis Pre-operative examination- Primary Preoperative examination, unspecified Hx of colonic polyp Personal history of colonic polyps Coronary artery 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 Essential hypertension Unspecified essential hypertension Mixed hyperlipidemia Severe obstructive sleep apnea AHI 32.5 Obstructive sleep apnea (adult) (pediatric) Pulmonary emphysema, unspecified emphysema type (HCC) Acquired hypothyroidism Unspecified hypothyroidism Recurrent major depressive disorder, in partial remission Smoker Tobacco use disorder Encounter for screening for cardiovascular disorders Screening for other and unspecified cardiovascular conditions [facility] Clinical Note Date No Information [facility] Work Phone: Hospital Discharge instructions Additional Instructions Follow-up with Dr. Nicholas's office on as scheduled.[facility] Work Phone: Progress note* Clinical Note Date No Information [facility] Work Phone: Reason for referral (narrative)* Diagnostic Procedure Only (Routine) - Authorized Specialty Diagnoses / Procedures Referred By Contac t Referred To Contact US IMAGING Diagnoses RLQ abdominal pain Procedures US FEMALE PELVIS TRANSVAG US TRANSVAGINAL Max Rodriguez MD [address] [place] [address] Us Imaging Referral ID Status Reason Start Date Expiration Date Visits Requested Visits Authorized [id number] Authorized Auto-Generat ed Referral 07/08/2022 08/07/2023 1 1 * Diagnostic Procedure Only (Routine) - Authorized Specialty Diagnoses / Procedures Referred By Contac t Referred To Contact US IMAGING Diagnoses RLQ abdominal pain Procedures US ABDOMEN COMPLETE US ABDOMINAL REAL TIME W/IMAGE DOCUMENTATION Max Rodriguez MD [address] [place] [id number] Us Imaging Referral ID Status Reason Start Date Expiration Date Visits Requested Visits Authorized [id number] Authorized Auto-Generat ed Referral 07/08/2022 08/07/2023 1 1 [facility] for referral (narrative)* Outpatient Procedure (Routine) - Authorized Specialty Diagnoses / Procedures Referred By Contac t Referred To Contact [facility] Diagnoses Discolored skin Procedures PVR ANK PRESS [facility] NON-INVAS PHYSIOLOGIC STD EXTREMITY ART 2 LEVEL Nicole Zhang APRN.CNP [address] [place] [address] [facility] [address] [place] [address] Referral ID Status Reason Start Date Expiration Date Visits Requested Visits Authorized [id number] Authorized Auto-Generat ed Referral 04/22/2023 04/21/2024 1 1 [facility] for referral (narrative)* Diagnostic Procedure Only (Routine) - Pending Review Specialty Diagnoses / Procedures Referred By Contac t Referred To Contact XR IMAGING Diagnoses Pain in both knees, unspecified chronicity Procedures XR KNEE GENERAL 4V AP BOTH/PA BOTH/LAT/MERC BILATERAL RADIOLOGIC EXAM KNEE COMPLETE 4/MORE VIEWS Bob Whiteside MD [address] [facility] [place] [address] Xr Imaging Referral ID Status Reason Start Date Expiration Date Visits Requested Visits Authorized [id number] Pending Review Auto-Generat ed Referral 05/19/2023 06/17/2024 1 1 [facility] for referral (narrative)* Outpatient Procedure (Routine) - Authorized Specialty Diagnoses / Procedures Referred By Contac t Referred To Contact [facility] Diagnoses Dizziness Procedures US CAROTID ARTERIES [facility] DUPLEX SCAN EXTRACRANIAL ART COMPL BI STUDY Max Rodriguez MD [address] [place] [address] [facility] [address] [place] [address] Referral ID Status Reason Start Date Expiration Date Visits Requested Visits Authorized [id number] Authorized Auto-Generat ed Referral 12/21/2023 12/20/2024 1 1 * Diagnostic Procedure Only (Urgent) - Pending Review Specialty Diagnoses / Procedures [facility] To Contact [facility] Diagnoses Coronary artery 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 Decreased stamina HATFIELD (dyspnea on exertion) Dizziness Procedures NM CARDIAC PERF STRESS/PHARM MYOCARDIAL SPECT MULTIPLE STUDIES Max Rodriguez MD [address] [place] [address] [facility] [address] [place] [address] Referral ID Status Reason Start Date Expiration Date Visits Requested Visits Authorized [id number] Pending Review Auto-Generat ed Referral 12/21/2023 01/19/2025 1 1 [facility] for referral (narrative)* Diagnostic Procedure Only (Routine) - Closed Specialty Diagnoses / Procedures Referred By Contac t Referred To Contact XR IMAGING Diagnoses Acute pain of right shoulder Procedures XR SHOULDER GENERAL 3V OR MORE AP/TRUE AP/OTHER RIGHT RADEX SHOULDER COMPLETE MINIMUM 2 VIEWS Max Rodriguez MD [address] [place] [address] [place] [address] Referral ID Status Reason Start Date Expiration Date V isits Requested Visits Authorized [id number] Closed Auto-Generate d Referral 12/08/2023 01/06/2025 1 1 [facility] for referral (narrative)No reason for referral [facility]: Reason for referral (narrative)* Reason For Referral No Information [facility] Work Phone: Reason for visit Narrative* Diagnostic Procedure Only (Routine) - Closed Specialty Diagnoses / Procedures Referred By Contac t Referred To Contact XR IMAGING Diagnoses Acute pain of right shoulder Procedures XR SHOULDER GENERAL 3V OR MORE AP/TRUE AP/OTHER RIGHT RADEX SHOULDER COMPLETE MINIMUM 2 VIEWS Max Rodriguez MD [address] [place] [address] [place] [address] Referral ID Status Reason Start Date Expiration Date V isits Requested Visits Authorized [id number] Closed Auto-Generate d Referral 12/08/2023 01/06/2025 1 1 [facility] for visit Narrative* Diagnostic Procedure Only (Routine) - Closed Specialty Diagnoses / Procedures Referred By Contac t Referred To Contact XR IMAGING Diagnoses Pain Procedures XR HIP GENERAL 3V PELV/AP/LAT RIGHT XR HIP GENERAL 3V PELV/AP/LAT RIGHT RADEX HIP UNILATERAL WITH PELVIS 2-3 VIEWS Papi Beltran MD [address] [place] [address] Phone: tel: fax: [place] [address] Referral ID Status Reason Start Date Expiration Date V isits Requested Visits Authorized [id number] Closed Auto-Generate d Referral 01/26/2025 02/25/2026 1 1 [facility] (Urgent) - Closed Specialty Diagnoses / Procedures Referred By Contac t Referred To Contact CT IMAGING Diagnoses Encounter for screening for cardiovascular disorders Procedures CT CALCIUM SCORING (CARDIAC) WO IVCON CT HEART NO CONTRAST QUANT EVAL CORONRY CALCIUM Nicole Zhang, ASHLY.TOY STUFFER [address] [place] [address] Phone: tel: fax: [place] [address] Referral ID Status Reason Start Date Expiration Date V isits Requested Visits Authorized [id number] Closed Auto-Generated Referral Clearance Not Met -Financial Clearance Bypassed or Pt Declined to Pay 05/18/2025 06/17/2026 1 1 [facility] Summary Purpose Family History Relationship Condition Age at Onset Recorded Date/T chris father Coronary artery disease Unknown Malignant neoplasm of prostate Unknown brother Alzheimer's disease Unknown daughter Malignant neoplasm of breast Unknown Family Member Type Diagnosis Age At Onset Father Problem prostate cancer Mother Problem hypertension Advance Directives Documents on File Type Date Recorded 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 Advance Directive(s) 06/24/2016 1:22 PM Date Activated Date Inactivated Comments 12/30/2018 9:45 AM 12/31/2018 6:25 PM Question Answer Comments Full Code Order Discussed With: Patient Documents on File Type Date Recorded 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 Advance Directive(s) 07/02/2021 7:36 AM [...] PM Full Code Order Discussed With: Patient Advance Directive Response Recorded Date/ Time Advance Directives Yes December 05, 2021 12:03pm Living Will Yes December 05 1:04pm Power of Cobol Engineer Yes December 05, 2021 1:04pm Documents on File Type Date Recorded 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 Advance Directive(s) 06/24/2016 1:22 PM Latest Code Status on File Code Status Date Activated Date Inactivated Comments Full Code 12/30/2018 9:45 AM 12/31/2018 6:25 PM Advance Directive Response Recorded Date/ Time Advance Directives Yes December 05, 2021 12:03pm Living Will Yes May 06, 2023 3:30pm Power of Cobol Engineer Yes May 06 3:30pm Name of Medical Power of Cobol Engineer kailyn Mota May 06, 2023 3:30pm Advance Directive Response Recorded Date/ Time Name of Medical Power of Cobol Engineer kailyn Mota May 06, 2023 3:30pm Name of Medical Power of Cobol Engineer [place] CHOPRA May 12, 2023 11:25am Advance Directives Yes December 05, 2021 12:03pm Living Will Yes May 12, 2023 1 1:25am Power of Cobol Engineer Yes May 12, 2023 11:25am Latest Code Status on File Code Status Date Activated Date Inactivated Comments Full Code 12/30/2018 9:45 AM 12/31/2018 6:25 PM Question Answer Comments Full Code Order Discussed With: Patient Latest Code Status on File Code Status Date Activated Date Inactivated Comments Full Code 12/30/2018 9:45 AM 12/31/2018 6:25 PM Question Answer Comments Full Code Order Discussed With: Patient Advance Directive Response Recorded Date/ Time Advance Directives Yes December 05, 2021 11:03am Living Will Yes December 13 7:07pm Power of Cobol Engineer Yes December 13, 2023 7:07pm Name of Medical Power of Cobol Engineer DAUGHTER - JASE CASTANEDA December 13, 2023 7:07pm Advance Directive Response Recorded Date/ Time Name of Medical Power of Cobol Engineer DAUGHTER - JASE CASTANEDA December 13, 2023 8:07pm Advance Directives Yes December 05, 2021 12:03pm Living Will Yes December 13 8:07pm Power of Cobol Engineer Yes December 13, 2023 8:07pm Date Activated Date Inactivated Comments 12/30/2018 9:45 AM 12/31/2018 6:25 PM Question Answer Comments Full Code Order Discussed With: Patient Advance Directive Response Recorded Date/ Time Advance Directives Yes December 05, 2021 12:03pm Advance Directive Response Recorded Date/ Time Living Will Yes December 13 8:07pm Do you have a Healthcare Power of Cobol Engineer? Yes December 13, 2023 8:07pm Advance Directives Yes December 05, 2021 12:03pm Directive Yes / No Effective Date File Name No Information Chief Complaint and Reason for Visit Chief Complaint emphysema DYSPNEA DYSPNEA Reason for Visit Dyspnea on minimal e xertion Chronic diastolic (congestive) heart failure Nicotine dependence Chief Complaint CHEST PAIN Chief Complaint CHEST PAIN CHEST PAIN Chief Complaint dizziness, confusion Chief Complaint dizziness, confusion Shortness of breath DYSPNEA OVERDUE FOR OV (LAST SEEN 11/29) Reason for Visit Dyspnea on minimal e xertion Chronic diastolic (congestive) heart failure Essential hypertension History of coronary artery stent placement HLD (hyperlipidemia) Chief Complaint Admit Date R13.10 Dysphagia, unspecified January 8:10am LEXISCAN SOB January 24, 2025 7:0 0am LEXISCAN SOB January 24, 2025 6:0 4pm Chief Complaint Admit Date R13.10 Dysphagia, unspecified January 8:10am LEXISCAN SOB January 24, 2025 7:0 0am LEXISCAN SOB January 24, 2025 6:0 4pm E-ORDER February 01, 2025 11: 04am Chief Complaint Admit Date R13.10 Dysphagia, unspecified January 8:10am LEXISCAN SOB January 24, 2025 7:0 0am LEXISCAN SOB January 24, 2025 6:0 4pm E-ORDER February 01, 2025 11: 04am 1 Y FU March 22, 2025 7:54a m Medications Administered Section Inactive Administered Medications - [...] dose, Starting on 08/30/23 at 1041, Until Wed08/30/23 at 1041 Given [...] AM EDT 4 mL Knee , Right Reason for Referral Specialty Diagnoses / Procedures Referred By Skip t Referred To Contact [facility] Diagnoses Pain in right hip Right lumbar pain Procedures CONSULT TO PHYSICAL THERAPY PHYSICAL THERAPY EVALUATION HIGH COMPLEX 45 MINS Max Rodriguez MD [address] [place] [address] [facility] [address] [place] [address] Referral ID Status Reason Start Date Expiration Date Visits Requested Visits Authorized [id number] Pending Review Auto-Generat ed Referral 08/02/2024 08/02/2025 1 1 Additional Source Comments INFORMATION SOURCE (unrecogn ized section and content) DATE CREATED AUTHOR 03/15/[address] [facility] DATE CREATED AUTHOR AUTHOR'S ORGANIZ ATION 10/30/2024 [facility] DATE CREATED AUTHOR AUTHOR'S ORGANIZ ATION 02/12/2025 [facility] DATE CREATED AUTHOR AUTHOR'S ORGANIZ ATION 03/22/2025 [facility] DATE CREATED AUTHOR AUTHOR'S ORGANIZ ATION 04/06/2025 [facility] DATE CREATED AUTHOR AUTHOR'S ORGANIZ ATION 05/22/2025 [facility] Source Comments (unrecognize d section and content) In the event this informatio n is protected by the Federal Confidentiality of Alcohol and Drug Abuse Patient Records regulations: The Federal rules restrict any use of the information to criminally investigate or prosecute any alcohol or drug abuse patient.[facility] the event this information is protected by the Federal Confidentiality of Alcohol and Drug Abuse Patient Records regulations: The Federal rules restrict any use of the information to criminally investigate or prosecute any alcohol or drug abuse patient.[facility] the event this information is protected by the Federal Confidentiality of Alcohol and Drug Abuse Patient Records regulations: The Federal rules restrict any use of the information to criminally investigate or prosecute any alcohol or drug abuse patient.[facility] the event this information is protected by the Federal Confidentiality of Alcohol and Drug Abuse Patient Records regulations: The Federal rules restrict any use of the information to criminally investigate or prosecute any alcohol or drug abuse patient.[facility] the event this information is protected by the Federal Confidentiality of Alcohol and Drug Abuse Patient Records regulations: The Federal rules restrict any use of the information to criminally investigate or prosecute any alcohol or drug abuse patient.[facility] the event this information is protected by the Federal Confidentiality of Alcohol and Drug Abuse Patient Records regulations: The Federal rules restrict any use of the information to criminally investigate or prosecute any alcohol or drug abuse patient.[facility]In the event this information is protected by the Federal Confidentiality of Alcohol and Drug Abuse Patient Records regulations: The Federal rules restrict any use of the information to criminally investigate or prosecute any alcohol or drug abuse patient.[facility] HospitalIn the event this information is protected by the Federal Confidentiality of Alcohol and Drug Abuse Patient Records regulations: The Federal rules restrict any use of the information to criminally investigate or prosecute any alcohol or drug abuse patient.[facility]In the event this information is protected by the Federal Confidentiality of Alcohol and Drug Abuse Patient Records regulations: The Federal rules restrict any use of the information to criminally investigate or prosecute any alcohol or drug abuse patient.[facility]In the event this information is protected by the Federal Confidentiality of Alcohol and Drug Abuse Patient Records regulations: The Federal rules restrict any use of the information to criminally investigate or prosecute any alcohol or drug abuse patient.[facility] HospitalIn the event this information is protected by the Federal Confidentiality of Alcohol and Drug Abuse Patient Records regulations: The Federal rules restrict any use of the information to criminally investigate or prosecute any alcohol or drug abuse patient.[facility] HospitalIn the event this information is protected by the Federal Confidentiality of Alcohol and Drug Abuse Patient Records regulations: The Federal rules restrict any use of the information to criminally investigate or prosecute any alcohol or drug abuse patient.[facility] HospitalIn the event this information is protected by the Federal Confidentiality of Alcohol and Drug Abuse Patient Records regulations: The Federal rules restrict any use of the information to criminally investigate or prosecute any alcohol or drug abuse patient.[facility] HospitalIn the event this information is protected by the Federal Confidentiality of Alcohol and Drug Abuse Patient Records regulations: The Federal rules restrict any use of the information to criminally investigate or prosecute any alcohol or drug abuse patient.[facility] HospitalIn the event this information is protected by the Federal Confidentiality of Alcohol and Drug Abuse Patient Records regulations: The Federal rules restrict any use of the information to criminally investigate or prosecute any alcohol or drug abuse patient.[facility] HospitalIn the event this information is protected by the Federal Confidentiality of Alcohol and Drug Abuse Patient Records regulations: The Federal rules restrict any use of the information to criminally investigate or prosecute any alcohol or drug abuse patient.[facility] HospitalIn the event this information is protected by the Federal Confidentiality of Alcohol and Drug Abuse Patient Records regulations: The Federal rules restrict any use of the information to criminally investigate or prosecute any alcohol or drug abuse patient.[facility] HospitalIn the event this information is protected by the Federal Confidentiality of Alcohol and Drug Abuse Patient Records regulations: The Federal rules restrict any use of the information to criminally investigate or prosecute any alcohol or drug abuse patient.[facility] HospitalIn the event this information is protected by the Federal Confidentiality of Alcohol and Drug Abuse Patient Records regulations: The Federal rules restrict any use of the information to criminally investigate or prosecute any alcohol or drug abuse patient.[facility] HospitalIn the event this information is protected by the Federal Confidentiality of Alcohol and Drug Abuse Patient Records regulations: The Federal rules restrict any use of the information to criminally investigate or prosecute any alcohol or drug abuse patient.[facility] HospitalIn the event this information is protected by the Federal Confidentiality of Alcohol and Drug Abuse Patient Records regulations: The Federal rules restrict any use of the information to criminally investigate or prosecute any alcohol or drug abuse patient.[facility] HospitalIn the event this information is protected by the Federal Confidentiality of Alcohol and Drug Abuse Patient Records regulations: The Federal rules restrict any use of the information to criminally investigate or prosecute any alcohol or drug abuse patient.[facility] HospitalIn the event this information is protected by the Federal Confidentiality of Alcohol and Drug Abuse Patient Records regulations: The Federal rules restrict any use of the information to criminally investigate or prosecute any alcohol or drug abuse patient.[facility] HospitalIn the event this information is protected by the Federal Confidentiality of Alcohol and Drug Abuse Patient Records regulations: The Federal rules restrict any use of the information to criminally investigate or prosecute any alcohol or drug abuse patient.[facility] HospitalIn the event this information is protected by the Federal Confidentiality of Alcohol and Drug Abuse Patient Records regulations: The Federal rules restrict any use of the information to criminally investigate or prosecute any alcohol or drug abuse patient.[facility] HospitalIn the event this information is protected by the Federal Confidentiality of Alcohol and Drug Abuse Patient Records regulations: The Federal rules restrict any use of the information to criminally investigate or prosecute any alcohol or drug abuse patient.[facility] HospitalIn the event this information is protected by the Federal Confidentiality of Alcohol and Drug Abuse Patient Records regulations: The Federal rules restrict any use of the information to criminally investigate or prosecute any alcohol or drug abuse patient.[facility] HospitalIn the event this information is protected by the Federal Confidentiality of Alcohol and Drug Abuse Patient Records regulations: The Federal rules restrict any use of the information to criminally investigate or prosecute any alcohol or drug abuse patient.[facility] HospitalIn the event this information is protected by the Federal Confidentiality of Alcohol and Drug Abuse Patient Records regulations: The Federal rules restrict any use of the information to criminally investigate or prosecute any alcohol or drug abuse patient.[facility] HospitalIn the event this information is protected by the Federal Confidentiality of Alcohol and Drug Abuse Patient Records regulations: The Federal rules restrict any use of the information to criminally investigate or prosecute any alcohol or drug abuse patient.[facility] HospitalIn the event this information is protected by the Federal Confidentiality of Alcohol and Drug Abuse Patient Records regulations: The Federal rules restrict any use of the information to criminally investigate or prosecute any alcohol or drug abuse patient.[facility] HospitalIn the event this information is protected by the Federal Confidentiality of Alcohol and Drug Abuse Patient Records regulations: The Federal rules restrict any use of the information to criminally investigate or prosecute any alcohol or drug abuse patient.[facility] HospitalIn the event this information is protected by the Federal Confidentiality of Alcohol and Drug Abuse Patient Records regulations: The Federal rules restrict any use of the information to criminally investigate or prosecute any alcohol or drug abuse patient.[facility] HospitalIn the event this information is protected by the Federal Confidentiality of Alcohol and Drug Abuse Patient Records regulations: The Federal rules restrict any use of the information to criminally investigate or prosecute any alcohol or drug abuse patient.[facility] HospitalIn the event this information is protected by the Federal Confidentiality of Alcohol and Drug Abuse Patient Records regulations: The Federal rules restrict any use of the information to criminally investigate or prosecute any alcohol or drug abuse patient.[facility] HospitalIn the event this information is protected by the Federal Confidentiality of Alcohol and Drug Abuse Patient Records regulations: The Federal rules restrict any use of the information to criminally investigate or prosecute any alcohol or drug abuse patient.[facility] HospitalIn the event this information is protected by the Federal Confidentiality of Alcohol and Drug Abuse Patient Records regulations: The Federal rules restrict any use of the information to criminally investigate or prosecute any alcohol or drug abuse patient.[facility] HospitalIn the event this information is protected by the Federal Confidentiality of Alcohol and Drug Abuse Patient Records regulations: The Federal rules restrict any use of the information to criminally investigate or prosecute any alcohol or drug abuse patient.[facility] HospitalIn the event this information is protected by the Federal Confidentiality of Alcohol and Drug Abuse Patient Records regulations: The Federal rules restrict any use of the information to criminally investigate or prosecute any alcohol or drug abuse patient.[facility] HospitalIn the event this information is protected by the Federal Confidentiality of Alcohol and Drug Abuse Patient Records regulations: The Federal rules restrict any use of the information to criminally investigate or prosecute any alcohol or drug abuse patient.[facility] HospitalIn the event this information is protected by the Federal Confidentiality of Alcohol and Drug Abuse Patient Records regulations: The Federal rules restrict any use of the information to criminally investigate or prosecute any alcohol or drug abuse patient.[facility] HospitalIn the event this information is protected by the Federal Confidentiality of Alcohol and Drug Abuse Patient Records regulations: The Federal rules restrict any use of the information to criminally investigate or prosecute any alcohol or drug abuse patient.[facility] HospitalIn the event this information is protected by the Federal Confidentiality of Alcohol and Drug Abuse Patient Records regulations: The Federal rules restrict any use of the information to criminally investigate or prosecute any alcohol or drug abuse patient.[facility] HospitalIn the event this information is protected by the Federal Confidentiality of Alcohol and Drug Abuse Patient Records regulations: The Federal rules restrict any use of the information to criminally investigate or prosecute any alcohol or drug abuse patient.[facility] HospitalIn the event this information is protected by the Federal Confidentiality of Alcohol and Drug Abuse Patient Records regulations: The Federal rules restrict any use of the information to criminally investigate or prosecute any alcohol or drug abuse patient.[facility] HospitalIn the event this information is protected by the Federal Confidentiality of Alcohol and Drug Abuse Patient Records regulations: The Federal rules restrict any use of the information to criminally investigate or prosecute any alcohol or drug abuse patient.[facility] HospitalIn the event this information is protected by the Federal Confidentiality of Alcohol and Drug Abuse Patient Records regulations: The Federal rules restrict any use of the information to criminally investigate or prosecute any alcohol or drug abuse patient.[facility] HospitalIn the event this information is protected by the Federal Confidentiality of Alcohol and Drug Abuse Patient Records regulations: The Federal rules restrict any use of the information to criminally investigate or prosecute any alcohol or drug abuse patient.[facility] HospitalIn the event this information is protected by the Federal Confidentiality of Alcohol and Drug Abuse Patient Records regulations: The Federal rules restrict any use of the information to criminally investigate or prosecute any alcohol or drug abuse patient.[facility] HospitalIn the event this information is protected by the Federal Confidentiality of Alcohol and Drug Abuse Patient Records regulations: The Federal rules restrict any use of the information to criminally investigate or prosecute any alcohol or drug abuse patient.[facility] HospitalIn the event this information is protected by the Federal Confidentiality of Alcohol and Drug Abuse Patient Records regulations: The Federal rules restrict any use of the information to criminally investigate or prosecute any alcohol or drug abuse patient.[facility] HospitalIn the event this information is protected by the Federal Confidentiality of Alcohol and Drug Abuse Patient Records regulations: The Federal rules restrict any use of the information to criminally investigate or prosecute any alcohol or drug abuse patient.[facility] HospitalIn the event this information is protected by the Federal Confidentiality of Alcohol and Drug Abuse Patient Records regulations: The Federal rules restrict any use of the information to criminally investigate or prosecute any alcohol or drug abuse patient.[facility] HospitalIn the event this information is protected by the Federal Confidentiality of Alcohol and Drug Abuse Patient Records regulations: The Federal rules restrict any use of the information to criminally investigate or prosecute any alcohol or drug abuse patient.[facility] HospitalIn the event this information is protected by the Federal Confidentiality of Alcohol and Drug Abuse Patient Records regulations: The Federal rules restrict any use of the information to criminally investigate or prosecute any alcohol or drug abuse patient.[facility] HospitalIn the event this information is protected by the Federal Confidentiality of Alcohol and Drug Abuse Patient Records regulations: The Federal rules restrict any use of the information to criminally investigate or prosecute any alcohol or drug abuse patient.[facility] HospitalIn the event this information is protected by the Federal Confidentiality of Alcohol and Drug Abuse Patient Records regulations: The Federal rules restrict any use of the information to criminally investigate or prosecute any alcohol or drug abuse patient.[facility] HospitalIn the event this information is protected by the Federal Confidentiality of Alcohol and Drug Abuse Patient Records regulations: The Federal rules restrict any use of the information to criminally investigate or prosecute any alcohol or drug abuse patient.[facility] HospitalIn the event this information is protected by the Federal Confidentiality of Alcohol and Drug Abuse Patient Records regulations: The Federal rules restrict any use of the information to criminally investigate or prosecute any alcohol or drug abuse patient.[facility] HospitalIn the event this information is protected by the Federal Confidentiality of Alcohol and Drug Abuse Patient Records regulations: The Federal rules restrict any use of the information to criminally investigate or prosecute any alcohol or drug abuse patient.[facility] HospitalIn the event this information is protected by the Federal Confidentiality of Alcohol and Drug Abuse Patient Records regulations: The Federal rules restrict any use of the information to criminally investigate or prosecute any alcohol or drug abuse patient.[facility] HospitalIn the event this information is protected by the Federal Confidentiality of Alcohol and Drug Abuse Patient Records regulations: The Federal rules restrict any use of the information to criminally investigate or prosecute any alcohol or drug abuse patient.[facility] HospitalIn the event this information is protected by the Federal Confidentiality of Alcohol and Drug Abuse Patient Records regulations: The Federal rules restrict any use of the information to criminally investigate or prosecute any alcohol or drug abuse patient.[facility] HospitalIn the event this information is protected by the Federal Confidentiality of Alcohol and Drug Abuse Patient Records regulations: The Federal rules restrict any use of the information to criminally investigate or prosecute any alcohol or drug abuse patient.[facility] HospitalIn the event this information is protected by the Federal Confidentiality of Alcohol and Drug Abuse Patient Records regulations: The Federal rules restrict any use of the information to criminally investigate or prosecute any alcohol or drug abuse patient.[facility] HospitalIn the event this information is protected by the Federal Confidentiality of Alcohol and Drug Abuse Patient Records regulations: The Federal rules restrict any use of the information to criminally investigate or prosecute any alcohol or drug abuse patient.[facility] HospitalIn the event this information is protected by the Federal Confidentiality of Alcohol and Drug Abuse Patient Records regulations: The Federal rules restrict any use of the information to criminally investigate or prosecute any alcohol or drug abuse patient.[facility] HospitalIn the event this information is protected by the Federal Confidentiality of Alcohol and Drug Abuse Patient Records regulations: The Federal rules restrict any use of the information to criminally investigate or prosecute any alcohol or drug abuse patient.[facility] HospitalIn the event this information is protected by the Federal Confidentiality of Alcohol and Drug Abuse Patient Records regulations: The Federal rules restrict any use of the information to criminally investigate or prosecute any alcohol or drug abuse patient.[facility] HospitalIn the event this information is protected by the Federal Confidentiality of Alcohol and Drug Abuse Patient Records regulations: The Federal rules restrict any use of the information to criminally investigate or prosecute any alcohol or drug abuse patient.[facility] HospitalIn the event this information is protected by the Federal Confidentiality of Alcohol and Drug Abuse Patient Records regulations: The Federal rules restrict any use of the information to criminally investigate or prosecute any alcohol or drug abuse patient.[facility] HospitalIn the event this information is protected by the Federal Confidentiality of Alcohol and Drug Abuse Patient Records regulations: The Federal rules restrict any use of the information to criminally investigate or prosecute any alcohol or drug abuse patient.[facility] HospitalIn the event this information is protected by the Federal Confidentiality of Alcohol and Drug Abuse Patient Records regulations: The Federal rules restrict any use of the information to criminally investigate or prosecute any alcohol or drug abuse patient.[facility] HospitalIn the event this information is protected by the Federal Confidentiality of Alcohol and Drug Abuse Patient Records regulations: The Federal rules restrict any use of the information to criminally investigate or prosecute any alcohol or drug abuse patient.[facility] HospitalIn the event this information is protected by the Federal Confidentiality of Alcohol and Drug Abuse Patient Records regulations: The Federal rules restrict any use of the information to criminally investigate or prosecute any alcohol or drug abuse patient.[facility] HospitalIn the event this information is protected by the Federal Confidentiality of Alcohol and Drug Abuse Patient Records regulations: The Federal rules restrict any use of the information to criminally investigate or prosecute any alcohol or drug abuse patient.[facility] HospitalIn the event this information is protected by the Federal Confidentiality of Alcohol and Drug Abuse Patient Records regulations: The Federal rules restrict any use of the information to criminally investigate or prosecute any alcohol or drug abuse patient.[facility] Reason for Visit (unrecogniz ed section and content) Reason Comments Established Patient Injections Specialty Diagnoses / Procedures Referred By Skip warren Referred To Contact Orthopedics / ORTHOPAEDIC SURGERY Diagnoses Pain in right knee Bilateral knee Cortisone Injection Procedures OFFICE/OUTPATIENT NEW HIGH MDM 60 MINUTES OFFICE/OUTPATIENT ESTABLISHED HIGH MDM 40 MIN CHENG ESTABLISH Max Rodriguez MD [address] [place] [address] Bob Whiteside MD [address] [place] [address] Referral ID Status Reason Start Date Expiration Date V isits Requested Visits Authorized [id number] Authorized 11/08/2023 11/07/2024 99 99 Reason Comments F/U 3 Month Reason Comments Results Reason Onset Date Comments Community [facility] Outreach 04/27/2022 Ins ight [facility] Enrollment Reason Comments 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 visit 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 - wants injections Follow Up Reason Comments Recheck Reason Comments Recheck Lump in right breast [...] Reason Onset Date Comments Refill Request 10/11/2023 Reason Comments Appointment Results Reason Comments Outside Pulmonary Reason Comments Orders Reason Comments ED Follow-up Reason Onset Date Comments Refill Request 01/07/2024 Reason Comments Outside Echo Reason Comments Follow Up Blood pressure Reason Onset Date Comments Refill Request 04/10/2024 Reason Comments F/U 6 months Reason Comments Injections Bilateral knee injec tions Reason Onset Date Comments Refill Request 07/06/2024 Reason Comments F/U 6 months Reason Comments Mouth Lesions Sore inside bottom l ip since last night Reason Onset Date Comments Refill Request 10/06/2024 Reason Onset Date Comments Refill Request 10/09/2024 Reason Onset Date Comments Refill Request 11/25/2024 Reason Onset Date Comments Refill Request 01/03/2025 Reason Onset Date Comments Refill Request 01/06/2025 Reason Comments Sore Throat Reason Comments Results Reason Comments Injections Bilateral knee injec tion Reason Comments Spirometry Specialty Diagnoses / Procedures Referred By Contac t Referred To [facility] [place] Diagnoses Pulmonary emphysema, unspecified emphysema type (HCC) Procedures LUNG DIFFUSION CAPACITY (DLCO) DIFFUSING CAPACITY Angela Haines MD [address] [place] [address] Phone: tel: fax: [facility] [address] [place] [address] Referral ID Status Reason Start Date Expiration Date V isits Requested Visits Authorized [id number] Closed Auto-Generate d Referral 01/16/2025 02/15/2026 1 1 Specialty Diagnoses / Procedures Referred By Contac t Referred To [facility] Diagnoses Pulmonary emphysema, unspecified emphysema type (HCC) Procedures SPIROMETRY WITH DILATOR IF OBSTRUCTED BRNCDILAT RSPSE SPMTRY PRE&POST-BRNCDILAT ADMN Angela Haines MD [address] [place] [address] Phone: tel: fax: [facility] [address] [place] [address] Referral ID Status Reason Start Date Expiration Date V isits Requested Visits Authorized [id number] Closed Auto-Generate d Referral 01/16/2025 02/15/2026 1 1 Reason Comments New Patient Cough/dyspnea Specialty Diagnoses / Procedures Referred By Contac t Referred To Contact Pulmonary and Critical Care Medicine / PULMONARY MEDICINE Diagnoses Shortness of breath Other forms of dyspnea Emphysema, unspecified SOB (shortness of breath) [R06.02]; HATFIELD (dyspnea on exertion) [R06.09]; Pulmonary emphysema, unspecified emphysema type (HCC) [J43.9] Procedures OFFICE/OUTPATIENT NEW SF MDM 15 MINUTES OFFICE/OUTPATIENT NEW LOW MDM 30 MINUTES OFFICE/OUTPATIENT NEW MODERATE MDM 45 MINUTES OFFICE/OUTPATIENT NEW HIGH MDM 60 MINUTES RI NEW COPD Max Rodriguez MD [address] [place] [address] Phone: tel: fax: Angela Haines MD [address] [place] [address] Phone: tel: fax: Referral ID Status Reason Start Date Expiration Date Visits Re quested Visits Authorized [id number] Closed 01/10/2025 11/07/2025 1 1 Reason Comments Breathing Problem Reason Onset Date Comments Results 01/26/2025 Reason Comments Outside [id number] Ordered Reason Comments New Pain Specialty Diagnoses / Procedures Referred By Contac t Referred To Contact Orthopedics / ORTHOPAEDIC SURGERY Diagnoses Encounter for consultation rt hip Procedures OFFICE/OUTPATIENT NEW HIGH MDM 60 MINUTES CHENG NEW ORTH/SPORTS Papi Beltran MD [facility] [place] [address] Phone: tel: fax: Papi Beltran MD [address] [place] [address] Phone: tel: fax: Referral ID Status Reason Start Date Expiration Date Visits Re quested Visits Authorized [id number] Closed 01/29/2025 11/07/2025 1 1 Reason Comments Outside Cardiology Reason Comments Medicare Wellness Exam Reason Comments Bilateral Knee Pain Care Teams (unrecognized sec tion and content) Speaking Unit Assembler Relationship Specialty Start Date End Date Max Rodriguez MD [address] [place] [address] PCP - General Family Practice 03/22/14 Speaking Unit Assembler Relationship Specialty Start Date End Date Max Rodriguez MD [address] [place] [address] PCP - General Family Practice 03/22/14 Speaking Unit Assembler Relationship Specialty Start Date End Date Max Rodriguez MD [address] [place] [address] PCP - General Family Practice 03/22/14 Fernanda Armstrong RN [address] [place] [address] [id number] Resident Physician In Radiology 04/28/2204/09 Ester Vargas RN Resident Physician In Radiology Family Practice 04/28/22 Speaking Unit Assembler Relationship Specialty Start Date End Date Max Rodriguez MD [address] [place] [address] PCP - General Family Practice 03/22/14 Ester Vargas RN Resident Physician In Radiology Family Practice 04/28/22 Speaking Unit Assembler Relationship Specialty Start Date End Date Max Rodriguez MD [address] [place] [address] PCP - General Family Practice 03/22/14 Ester Vargas RN Resident Physician In Radiology Family Practice 04/28/22 Speaking Unit Assembler Relationship Specialty Start Date End Date Max Rodriguez MD [address] [place] [address] PCP - General Family Medicine 03/22/14 Speaking Unit Assembler Relationship Specialty Start Date End Date Max Rodriguez MD [address] [place] [address] PCP - General Family Medicine 03/22/14 Speaking Unit Assembler Relationship Specialty Start Date End Date Max Rodriguez MD [address] [place] [address] PCP - General Family Medicine 03/22/14 Speaking Unit Assembler Relationship Specialty Start Date End Date Max Rodriguez MD [address] [place] [address] PCP - General Family Medicine 03/22/14 Speaking Unit Assembler Relationship Specialty Start Date End Date Max Rodriguez MD [address] [place] [address] PCP - General Family Medicine 03/22/14 Speaking Unit Assembler Relationship Specialty Start Date End Date Max Rodriguez MD [address] [place] [address] PCP - General Family Medicine 03/22/14 Speaking Unit Assembler Relationship Specialty Start Date End Date Max Rodriguez MD [address] [place] [address] PCP - General Family Medicine 03/22/14 Speaking Unit Assembler Relationship Specialty Start Date End Date Max Rodriguez MD [address] [place] [address] PCP - General Family Medicine 03/22/14 Speaking Unit Assembler Relationship Specialty Start Date End Date Max Rodriguez MD [address] [place] [address] PCP - General Family Medicine 03/22/14 Team Status: Active Member Role Status Dates Dr. Max Rodriguez MD Primary Care Provider Active Team Status: Inactive Member Role Status Dates Dr. Max Rodriguez MD Primary Care Provider Active Dr. Flavio Echavarria MD Emergency Provider Active Team Status: Inactive Member Role Status Dates Dr. Max Rodriguez MD Primary Care Provider Active Dr. Flavio Echavarria MD Attending Provider, Emergency Provider Active Team Status: Inactive Member Role Status Dates Dr. Max Rodriguez MD Primary Care Provider Active Dr. Chuyita Mccarty MD Emergency Provider Active Speaking Unit Assembler Relationship Specialty Start Date End Date Max Rodriguez MD [address] [place] [address] PCP - General Family Medicine 03/22/14 Speaking Unit Assembler Relationship Specialty Start Date End Date Max Rodriguez MD [address] [place] [address] PCP - General Family Medicine 03/22/14 Speaking Unit Assembler Relationship Specialty Start Date End Date Max Rodriguez MD [address] [place] [address] PCP - General Family Medicine 03/22/14 Speaking Unit Assembler Relationship Specialty Start Date End Date Max Rodriguez MD [address] [place] [address] PCP - General Family Medicine 03/22/14 Speaking Unit Assembler Relationship Specialty Start Date End Date Max Rodriguez MD [address] [place] [address] PCP - General Family Medicine 03/22/14 Speaking Unit Assembler Relationship Specialty Start Date End Date Max Rodriguez MD [address] [place] [address] PCP - General Family Medicine 03/22/14 Speaking Unit Assembler Relationship Specialty Start Date End Date Max Rodriguez MD [address] [place] [address] PCP - General Family Medicine 03/22/14 Speaking Unit Assembler Relationship Specialty Start Date End Date Max Rodriguez MD [address] [place] [address] PCP - General Family Medicine 03/22/14 Speaking Unit Assembler Relationship Specialty Start Date End Date Max Rodriguez MD [address] [place] [address] PCP - General Family Medicine 03/22/14 Speaking Unit Assembler Relationship Specialty Start Date End Date Max Rodriguez MD [address] [place] [address] PCP - General Family Medicine 03/22/14 Speaking Unit Assembler Relationship Specialty Start Date End Date Max Rodriguez MD [address] [place] [address] PCP - General Family Medicine 03/22/14 Speaking Unit Assembler Relationship Specialty Start Date End Date Max Rodriguez MD [address] [place] [address] PCP - General Family Medicine 03/22/14 Speaking Unit Assembler Relationship Specialty Start Date End Date Max Rodriguez MD [address] [place] [address] PCP - General Family Medicine 03/22/14 Speaking Unit Assembler Relationship Specialty Start Date End Date Max Rodriguez MD [address] [place] [address] PCP - General Family Medicine 03/22/14 Speaking Unit Assembler Relationship Specialty Start Date End Date Max Rodriguez MD [address] [place] [address] PCP - General Family Medicine 03/22/14 Team Status: Inactive Member Role Status Dates Dr. Max Rodriguez MD Primary Care Provider, Referri Provider Active Kelly Alba INGOT CAR OPERATOR, INGOT CAR OPERATOR-C Attending Provider Active Team Status: Inactive Member Role Status Dates Dr. Max Rodriguez MD Primary Care Provider, Referpriscilla lipscomb Provider Active Concetta Calderon INGOT CAR OPERATOR, INGOT CAR OPERATOR-C Attending Provider Active Team Status: Active Member Role Status Dates Dr. Max Rodriguez MD Primary Care Provider Active Dr. Emmett Rasmussen MD Attending Provider Active Team Status: Inactive Member Role Status Dates Dr. Max Rodriguez MD Primary Care Provider Active Kelly Alba INGOT CAR OPERATOR, INGOT CAR OPERATOR-C Attending Provider, Pete monson Provider Active Speaking Unit Assembler Relationship Specialty Start Date End Date Max Rodriguez MD [address] [place] [address] PCP - General Family Medicine 03/22/14 Speaking Unit Assembler Relationship Specialty Start Date End Date Max Rodriguez MD [address] [place] [address] PCP - General Family Medicine 03/22/14 Speaking Unit Assembler Relationship Specialty Start Date End Date Max Rodriguez MD [address] [place] [address] PCP - General Family Medicine 03/22/14 Speaking Unit Assembler Relationship Specialty Start Date End Date Max Rodriguez MD [address] [place] [address] PCP - General Family Medicine 03/22/14 Speaking Unit Assembler Relationship Specialty Start Date End Date Max Rodriguez MD [address] [place] [address] PCP - General Family Medicine 03/22/14 Speaking Unit Assembler Relationship Specialty Start Date End Date Max Rodriguez MD [address] [place] [address] PCP - General Family Medicine 03/22/14 Speaking Unit Assembler Relationship Specialty Start Date End Date Max Rodriguez MD [address] [place] [address] PCP - General Family Medicine 03/22/14 Speaking Unit Assembler Relationship Specialty Start Date End Date Max Rodriguez MD [address] [place] [address] PCP - General Family Medicine 03/22/14 Speaking Unit Assembler Relationship Specialty Start Date End Date Max Rodriguez MD [address] [place] [address] PCP - General Family Medicine 03/22/14 Speaking Unit Assembler Relationship Specialty Start Date End Date Max Rodriguez MD [address] [place] [address] PCP - General Family Medicine 09/15/24 Speaking Unit Assembler Relationship Specialty Start Date End Date Max Rodriguez MD [address] [place] [address] PCP - General Family Medicine 03/22/14 Speaking Unit Assembler Relationship Specialty Start Date End Date Max Rodriguez MD [address] [place] [address] PCP - General Family Medicine 03/22/14 Speaking Unit Assembler Relationship Specialty Start Date End Date Max Rodriguez MD [address] [place] [address] PCP - General Family Medicine 03/22/14 Speaking Unit Assembler Relationship Specialty Start Date End Date Max Rodriguez MD [address] [place] [address] PCP - General Family Medicine 03/22/14 Nicole Zhang, [email or web address] [email or web address] [address] [place] [address] Level Glass Vial Filler Family Medicine 10/14/24 Dora Whitman PA-C [address] [place] [address] Level Glass Vial Filler Family Medicine 10/14/24 Speaking Unit Assembler Relationship Specialty Start Date End Date Max Rodriguez MD [address] [place] [address] PCP - General Family Medicine 03/22/14 Nicole Zhang, [email or web address] [email or web address] [address] [place] [address] Level Glass Vial Filler Family Medicine 10/14/24 Dora Whitman PA-C [address] [place] [address] Level Glass Vial Filler Family Medicine 10/14/24 Speaking Unit Assembler Relationship Specialty Start Date End Date Max Rodriguez MD [address] [place] [address] PCP - General Family Medicine 03/22/14 Nicole Zhang, INSPECTOR MACHINED PARTS.TOY STUFFER [address] [place] [address] Level Glass Vial Filler Family Medicine 10/14/24 Dora Whitman PA-C [address] [place] [address] Level Glass Vial Filler Family Medicine 10/14/24 Speaking Unit Assembler Relationship Specialty Start Date End Date Max Rodriguez MD [address] [place] [place] [address] PCP - General Family Medicine 03/22/14 Nicole Zhang APRN.TOY STUFFER [address] [place] [address] [facility] 10/14/24 Dora Whitman PA-C [address] [place] [address] [facility] 10/14/24 Speaking Unit Assembler Relationship Specialty Start Date End Date Max Rodriguez MD [address] [place] [address] PCP - General Family Medicine 03/22/14 Nicole Zhang APRN.TOY STUFFER [address] [place] [address] [facility] 10/14/24 Dora Whitman PA-C [address] [place] [address] [facility] 10/14/24 Speaking Unit Assembler Relationship Specialty Start Date End Date Max Rodriguez MD [address] [place] [address] PCP - General Family Medicine 03/22/14 Nicole Zhang INSPECTOR MACHINED [employer]S.TOY STUFFER [address] [place] [address] [facility] 10/14/24 Dora Whitman PA-C [address] [place] [address] [facility] 10/14/24 Speaking Unit Assembler Relationship Specialty Start Date End Date Max Rodriguez MD [address] [place] [address] PCP - General Family Medicine 03/22/14 Nicole Zhang, ASHLY.TOY STUFFER [address] [place] [address] [facility] 10/14/24 Dora Whitman PA-C [address] [place] [address] [facility] Speaking Unit Assembler Relationship Specialty Start Date End Date Max Rodriguez MD [address] [place] [address] PCP - General Family Medicine 03/22/14 Nicole Zhang, ASHLY.TOY STUFFER [address] [place] [address] [facility] 10/14/24 Dora Whitman PA-C [address] [place] [address] [facility] 10/14/24 Speaking Unit Assembler Relationship Specialty Start Date End Date aMx Rodriguez MD [address] [place] [address] PCP - General Family Medicine 03/22/14 Nicole Zhang, ASHLY.TOY STUFFER [address] [place] [address] [facility] 10/14/24 Dora Whitman PA-C [address] [place] [address] [facility] 10/14/24 Team Status: Inactive Member Role Status Dates Dr. Max Rodriguez MD Primary Care Provider Active Start: January 16, 2025 End: January 16, 2025 Dr. Max Rodriguez MD Attending Provider Active Start: January 16, 2025 End: January 16, 2025 Dr. Max Rodriguez MD Referring Provider Active Start: January 16, 2025 End: January 16, 2025 Team Status: Active Member Role Status Dates Dr. Max Rodriguez MD Primary Care Provider Active Start: January 24, 2025 Dr. Max Rodriguez MD Attending Provider Active Start: January 24, 2025 Dr. Max Rodriguez MD Referring Provider Active Start: January 24, 2025 Team Status: Active Member Role Status Dates Dr. Max Rodriguez MD Primary Care Provider Active Start: January 24, 2025 Dr. Max Rodriguez MD Referring Provider Active Start: January 24, 2025 Dr. Max Rodriguez MD Other Provider Active St art: January 24, 2025 Dr. Emmett Rasmussen MD Attending Provider Active S tart: January 24, 2025 Team Status: Inactive Member Role Status Dates Dr. Max Rodriguez MD Primary Care Provider Active Start: January 24, 2025 End: January 24, 2025 Dr. Max Rodriguez MD Attending Provider Active Start: January 24, 2025 End: January 24, 2025 Dr. Max Rodriguez MD Referring Provider Active Start: January 24, 2025 End: January 24, 2025 Team Status: Active Member Role Status Dates Dr. Max Rodriguez MD Primary Care Provider Active Start: February 01, 2025 Dr. Emmett Rasmussen MD Attending Provider Active S tart: February 01, 2025 Dr. Emmett Rasmussen MD Referring Provider Active S tart: February 01, 2025 Speaking Unit Assembler Relationship Specialty Start Date End Date Max Rodriguez MD [address] [place] [address] PCP - General Family Medicine 03/22/14 Nicole Zhang, INSPECTOR [employer].TOY STUFFER [address] [place] [address] [facility] 10/14/24 Dora Whitman PA-C [address] [place] [address] [facility] 10[facility]14/[facility] Speaking Unit Assembler Relationship Specialty Start Date End Date Max Rodriguez MD [address] [place] [address] PCP - General Family Medicine 03/22/14 Nicole Zhang, INSPECTOR [employer].TOY STUFFER [address] [place] [address] [facility] 10/14/24 Dora Whitman PA-C [address] [place] [address] [facility] 10/14/24 Speaking Unit Assembler Relationship Specialty Start Date End Date Max Rodriguez MD [address] [place] [address] PCP - General Family Medicine 03/22/14 Nicole Zhang, INSPECTOR [employer].TOY STUFFER [address] [place] [address] [facility] 10/14/24 Dora Whitman PA-C [address] [place] [address] [facility] 10/14/24 Team Status: Inactive Member Role Status Dates Dr. Max Rodriguez MD Primary Care Provider Active Start: February 01, 2025 End: February 01, 2025 Dr. Emmett Rasmussen MD Attending Provider Active S tart: February 01, 2025 End: February 01, 2025 Dr. Emmett Rasmussen MD Referring Provider Active S tart: February 01, 2025 End: February 01, 2025 Team Status: Inactive Member Role Status Dates Dr. Max Rodriguez MD Primary Care Provider Active Start: March 22, 2025 End: March 22, 2025 Dr. Max Rodriguez MD Referring Provider Active Start: March 22, 2025 End: March 22, 2025 Dr. Emmett Rasmussen MD Attending Provider Active S tart: March 22, 2025 End: March 22, 2025 Speaking Unit Assembler Relationship Specialty Start Date End Date Max Rodriguez MD [address] [place] [address] PCP - General Family Medicine 02/12/25 Nicole Zhang, ASHLY.TOY STUFFER [address] [place], [place] [address] Level Glass Vial Filler Family [facility] 10/14/24 Dora Whitman PA-C [address] [place] [address] Level Glass Vial Filler Family [facility] 10/14/24 Name Effective Dates (start - stop) Status Members No Information Speaking Unit Assembler Relationship Specialty Start Date End Date Max Rodriguez MD [address] [place] [address] PCP - General Family Medicine 03/22/14 02/11/25 Max Rodriguez MD [address] [place] [address] PCP - General Family Medicine 02/12/25 Nicole Zhang APRN.TOY STUFFER [address] [place], [place] [address] [facility] 10/14/24 03/25/25 Dora Whitman PA-C [address] [place] [address] [facility] 10/14/24 04/08/25 Nicole Zhang APRN.TOY STUFFER [address] [place] [address] [id number] [phone] Level [facility]ial [facility] Family [facility] 04/09/25 Dora Whitman PA-C [address] [place] [address] Level [facility]ial [facility] Family [facility] 04/09/25 Speaking Unit Assembler Relationship Specialty Start Date End Date Max Rodriguez MD [address] [place] [address] PCP - General Family Medicine 02/12/25 Nicole Zhang APRN.TOY STUFFER [address] [place] [address] [facility] 04/09/25 Dora Whitman PA-C [address] [place] [address] [facility] 04/09/25 Speaking Unit Assembler Relationship Specialty Start Date End Date Max Rodriguez MD [address] [place] [address] PCP - General Family Medicine 02/12/25 Nicoel Zhang APRN.TOY STUFFER [address] [place] [address] [phone] Level [facility]ial [facility] Family [facility] 04/09/25 Dora Whitman PA-C [address] [place] [address] [facility] 04/09/25 Speaking Unit Assembler Relationship Specialty Start Date End Date aMx Rodriguez MD [address] [place] [address] PCP - General Family Medicine 02/12/25 Nicole Zhang APRN.TOY STUFFER [address] [place] [address] [facility] Family [facility] 04/09/25 Dora Whitman PA-C [address] [place] [address] [facility] 04/09/25 Speaking Unit Assembler Relationship Specialty Start Date End Date Max Rodriguez MD [address] [place] [address] PCP - General Family Medicine 02/12/25 Nicole Zhang APRN.TOY STUFFER [address] [place] [address] [facility] Family Medicine 04/09/25 Dora Whitman PA-C [address] [place] [address] [facility] 04/09/25 Speaking Unit Assembler Relationship Specialty Start Date End Date Max Rodriguez MD [address] [place] [address] PCP - General Family Medicine 02/12/25 Nicole Zhang APRN.TOY STUFFER [address] [place], [place] [address] [facility] 04/09/25 Dora Whitman PA-C [address] [place], [place] [id number] [facility] 04/09/25 Goals (unrecognized section and content) Health Concern Goal Type Priority Status No Information Inactive Administered Medications - up to 3 most recent administrations Administered Medications (un recognized section and content) Medication Order MAR Action Action Date Dose Rate Site betamethasone acetate-betamethasone sodium phosphate 6 mg injection (CELESTONE) 6 mg, Injection - FOR ORTHO USE ONLY, ONCE, 1 dose, Starting on Wed01/10/24 at 1144, Until Wed01/10/24 at 1144 Given 01/10/2024 11:44 AM EST 6 mg Knee , Left betamethasone acetate-betamethasone sodium phosphate 6 mg injection (CELESTONE) 6 mg, Injection - FOR ORTHO USE ONLY, ONCE, 1 dose, Starting on Wed01/10/24 at 1144, Until Wed01/10/24 at 1144 Given 01/10/2024 11:44 AM EST 6 mg Knee , Right lidocaine (PF) 10 mg/mL (1 %) 4 mL injection (XYLOCAINE) 4 mL, Injection - FOR ORTHO USE ONLY, ONCE, 1 dose, Starting on Wed01/10/24 at 1144, Until Wed01/10/24 at 1144 Given 01/10/2024 11:44 AM EST 4 mL Knee , Left lidocaine (PF) 10 mg/mL (1 %) 4 mL injection (XYLOCAINE) 4 mL, Injection - FOR ORTHO USE ONLY, ONCE, 1 dose, Starting on Wed01/10/24 at 1144, Until Wed01/10/24 at 1144 Given 01/10/2024 11:44 AM EST 4 mL Knee , Right FOR RECORDS PERTAINING TO PATIENTS WHO ARE [...] BE BASED ON THE PRIMARY CLINICAL RECORDS. [facility] [employer] [facility]. provides no warranty or guarantee of the accuracy or completeness of information in this document.
[2025-05-26 11:10] LABS: Differential Indicated SCAN CRITERIA MET
[2025-05-26 11:34] LABS: D-Dimer Quantitative (DVT/PE) 1.20 FEU/ug/m (0.27-0.49)
[2025-05-26 11:39] LABS: Troponin T High Sensitivity 10 ng/L (<=14)
[2025-05-26 11:54] LABS: Anion Gap 15 (5-15); BUN 24 mg/dL (4-19); BUN/Creat Ratio 19.7 RATIO (10-20); Calcium,Total 9.1 mg/dL (7.6-11.0); Carbon Dioxide 20.7 mmol/L (21.0-32.0); Chloride 98 mmol/L (98-108); Estimated Creatinine Clearance 38.27 ml/min (50-250); Glucose 96 mg/dL (70-99); Potassium 4.7 mmol/L (3.3-5.1)
[2025-05-26] MEDS: DiphenhydrAMINE 50 MG/ML Syringe IV (12:12)
--- NOTE | 2025-05-26 12:59 | CT_ITS ---
PROCEDURE: CTA CHEST W/WO CONTRAST 05/26/2025 REASON FOR EXAM: SOB, ELEVATED DIMER Chest pain TECHNIQUE: CTA CHEST W/WO CONTRAST Multiplanar Sagittal and Coronal images were obtained. CONTRAST: Isovue 370 VOLUME: 95 mL One or more dose reduction techniques were used (e.g., Automated exposure control, adjustment of the mA and/or kV according to patient size, use of iterative reconstruction technique). RADIATION DOSE SUMMARY: CTDlvol: 20.1 mGy DLP: 287.4 mGycm COMPARISON: Chest x-ray dated 12/13/2023 # of known CTs in the past 12 months: 1 # of known Cardiac Nuclear Medicine Studies in the past 12 months: 0 FINDINGS: Thoracic Aorta: Arteriosclerotic vascular disease of the aorta is noted. There is no thoracic aorta dissection or aneurysm. Heart: Heart size and configuration are within normal limits. Pulmonary Vessels: There is no filling defect identified in the main pulmonary arteries are major segmental branches to suggest pulmonary embolus. Hardware: None Lymph nodes: There is no mediastinal, hilar or axillary adenopathy. Lungs and Airways: There are linear densities identified in the lung bases bilaterally most likely representing either atelectasis or parenchymal scarring. There is no consolidative process, mass, pneumonic infiltrate or pneumothorax. There are no pleural effusions. Trachea and mainstem bronchi appear patent Pleura: Unremarkable Upper Abdomen: The visualized portions of the liver, spleen, pancreas, adrenal glands, and kidneys appear unremarkable. Bones: Degenerative changes of the thoracic spine are noted. There is a slight increased kyphotic curvature of the thoracic spine. CT/CTA Chest W/WO Contrast IMPRESSION: No evidence of pulmonary embolus. Atelectasis versus parenchymal scarring lung bases bilaterally. Arteriosclerotic vascular disease of the aorta. Reading Location: [id number]
[2025-05-26 13:08] LABS: Troponin T High Sens 2 HR 10 ng/L (<=14)
[2025-05-26 13:53] LABS: Mucous, Urine 0 SEEN /hpf (<or=2+)
[2025-05-26 13:59] LABS: Color, Urine Yellow (Yellow); Glucose, Dipstick Normal (Normal); Ketone-Dipstick Negative (Negative); Leukocyte Esterase-Dipstick 100 /ul (Negative); Nitrite-Dipstick Positive (Negative); Occult Blood-Urine 50 /ul (Negative); Protein-Dipstick 100 mg/dl (Negative); Specific Gravity, Urine 1.005 (1.002-1.030); Urine Bilirubin Dipstick Negative (Negative)
[2025-05-26 14:15] LABS: Red Blood Cells-Urine 5-10 SEEN /hpf (0-5); Squamous Epithelial Cells - UA 0-5 SEEN /hpf (5-10)
== END 2025-05-26 16:43 | disposition home or self-care (01) ==
PROVIDERS: Emergency Provider Emergency Medicine; PCP Family Medicine; Visit Provider Emergency Medicine
DX: R07.9 Chest pain, unspecified (principal); I11.0 Hypertensive heart disease with heart failure; I50.32 Chronic diastolic (congestive) heart failure; J44.9 Chronic obstructive pulmonary disease, unspecified; Z95.5 Presence of coronary angioplasty implant and graft; Z87.891 Personal history of nicotine dependence; E78.5 Hyperlipidemia, unspecified; Z79.82 Long term (current) use of aspirin; I25.10 Atherosclerotic heart disease of native coronary artery without angina pectoris; R06.09 Other forms of dyspnea; N39.0 Urinary tract infection, site not specified
CPT/HCPCS: 71275; 80048; 81001; 84484; 85025; 85379; 87077; 87086; 87088; 87186; 93005; 96365; 96375; 99285; Q9967; A4216

== ENCOUNTER 2025-06-04 18:15 | Observation (INO) | payer MEDICARE, SELFPAY ==
[2021-12-05 11:03] VITALS: BMI 29.2
[2025-06-04] VITALS (9 sets, daily range): BP systolic 124–165; BP diastolic 58–84; PULSE 78–103; RESP 16–31; TEMP 36.6–37.3; O2SAT 93–99; BMI 31.4; BMI 31.2
--- NOTE | 2025-06-04 18:24 | EKG12_ITS ---
Test Reason : DYSRHYTHMIA Blood Pressure : */* mmHG Vent. Rate : 95 BPM Atrial Rate : 95 BPM P-R Int : 120 ms QRS Dur : 72 ms QT Int : 370 ms P-R-T Axes : 67 44 74 degrees QTcB Int : 464 ms Normal sinus rhythm Minimal voltage criteria for LVH, may be normal variant ( Sokolow-Glynn ) Nonspecific ST abnormality Abnormal ECG Confirmed by NEEL US, LACEY ([id number]), society editor BRAN ZALDIVAR ([id number]) on 06/05/2025 1:03:31 PM Referred By: Confirmed By: LACEY SHAIKH MD
[2025-06-04] MEDS: 0.9% Normal Saline (1000mL) 1,000 ML 999 ML IV (18:53)
--- NOTE | 2025-06-04 19:09 | RAD_ITS ---
PROCEDURE: CHEST PA AND LATERAL 06/04/2025 REASON FOR EXAM: COUGH TECHNIQUE: CHEST PA AND LATERAL COMPARISON: Chest x-ray 12/13/2023, CT 05/26/2025. FINDINGS: Lungs/Pleura: No focal consolidation, pneumothorax, or pleural effusion. Moderate bilateral pulmonary emphysema. No significant vascular congestion. Heart/Mediastinum: Borderline enlarged. Calcification of the aortic arch. Bones/Soft tissues: Mild degenerative changes of the visualized spine. RAD/Chest PA and Lateral IMPRESSION: Moderate emphysema. No focal consolidation or pleural effusion. Reading Location: [id number]
[2025-06-04 19:15] LABS: Hematocrit 37.0 % (37-47); Hemoglobin 11.8 g/dL (12.0-15.0); Immature Granulocytes Count 0.030 X10^3/uL (0.0-0.0); Mean Corp Hgb Conc 31.9 g/dL (32-36); Mean Corpuscular Volume 85.8 fL (81-99); Mean Platelet Vol. 10.1 fl (6.2-12.0); NRBC Flagged by Analyzer 0 % (0-5); Platelet Count 330 K/mm3 (150-450); RBC Distribution Width CV 14.7 % (11.6-14.6); RBC Distribution Width SD 47.0 fl (35.1-43.9); Red Blood Count 4.31 M/mm3 (4.2-5.4); White Blood Count 7.7 K/mm3 (4.4-11.0)
[2025-06-04 19:26] LABS: AST(SGOT) 24 U/L (<=31); Alanine Aminotransfer ALT/SGPT 26 U/L (<=34); Albumin, Serum 3.5 g/dL (3.4-4.8); Alkaline Phosphatase 94 U/L (35-104); Anion Gap 12 (5-15); BUN 27 mg/dL (4-19); BUN/Creat Ratio 20.1 RATIO (10-20); Calcium,Total 8.8 mg/dL (7.6-11.0); Carbon Dioxide 23.1 mmol/L (21.0-32.0); Chloride 105 mmol/L (98-108); Estimated Creatinine Clearance 32.56 ml/min (50-250); Globulin 3.0 g/dL (2.2-4.2); Glucose 95 mg/dL (70-99); Potassium 4.1 mmol/L (3.3-5.1)
[2025-06-04 19:41] LABS: Prothrombin Time (Protime)PT. 12.8 SECONDS (11.7-14.9)
--- NOTE | 2025-06-04 19:41 | EX.ED.DYSGE1 ---
HPI History of Present Illness Chief Complaint: Hypotension Narrative Narrative: Patient is a 85-year-old female with past medical history of ESBL, Graves' disease, COPD, CAD, heart failure, hypothyroidism, MATT, hyperlipidemia who presented to the emerged part with concern for low blood pressure. According the patient's daughter at bedside she notes that she was here recently was diagnosed with a urinary tract infection was ultimately sent home and when the culture came back to change her antibiotics. They noted that she had a follow-up appointment with her delivery crew worker and in the office her blood pressure was low they advised her to hold her blood pressure medications through the weekend which they did. Despite this her blood pressures were reading low at home and they followed up again with the delivery crew worker this evening and they advised them to bring her here to be further evaluated with the known history of UTI. Patient states that she does feel extremely weak. [facility] Medical History History of ESBL E. coli infection Trigger middle finger of left hand Tobacco abuse Personal history of colonic polyps Osteoarthritis Heart attack Graves disease COPD (chronic obstructive pulmonary disease) CAD (coronary artery disease) Left ventricular diastolic dysfunction Chronic diastolic (congestive) heart failure Nicotine dependence Atherosclerosis of coronary artery of [place] heart without angina pectoris History of non-ST elevation myocardial infarction (NSTEMI) (12/21/19) Vertigo Essential hypertension Hypothyroidism Anxiety and depression MATT (obstructive sleep apnea) Obesity HLD (hyperlipidemia) Home Medications ?Medication ?Instructions ?Recorded ?Last Taken ?Type aspirin 81 mg chewable tablet 81 mg PO DAILY@0800 heart health 05/07/20 05/06/20 History rosuvastatin 5 mg tablet 5 mg PO DAILY cholesterol 05/07/20 05/06/20 History omeprazole 40 mg capsule,delayed 40 mg PO BID 01/29/22 Unknown History release celecoxib 200 mg capsule (Celebrex) 200 mg PO BID 01/21/24 Unknown History duloxetine 30 mg capsule,delayed 30 mg PO QDAY 03/22/25 Unknown History release metoprolol succinate 50 mg 50 mg PO DAILY heart #90 tabs 03/22/25 Unknown Rx tablet,extended release 24 hr tramadol 50 mg tablet 50 mg PO Q12H Pain Score 1-10 03/22/25 Unknown History valsartan 320 mg tablet 320 mg PO QDAY 03/22/25 Unknown History nitrofurantoin 100 mg PO Q12 #10 CAPSULES 05/29/25 Unknown Rx monohydrate/macrocrystals 100 mg capsule albuterol sulfate 90 mcg/actuation 2 puff inhalation Q4H PRN 05/30/25 Unknown History aerosol inhaler amlodipine 10 mg tablet 10 mg PO QDAY 05/30/25 Unknown History levothyroxine 137 mcg tablet 137 mcg PO MOTUWETHFR 05/30/25 Unknown History (Levoxyl) levothyroxine 137 mcg tablet 68.5 mcg PO SA 05/30/25 Unknown History (Synthroid) Allergy/AdvReac Type Severity Reaction Status Date / Time iodine Allergy Severe Angioedema Verified 06/04/25 18:18 guaifenesin (From Mucinex) Allergy Mild Other Verified 06/04/25 18:18 ticagrelor (From Brilinta) AdvReac Severe Shortness Verified 06/04/25 18:18 of breath varenicline (From Chantix) AdvReac Severe Other Verified 06/04/25 18:18 Family History Father CAD (coronary artery disease) Prostate cancer Brother Alzheimer's disease Daughter Breast cancer Daughter Breast cancer Surgical History History of coronary artery stent placement (12/21/19) Social History Smoking Status: Former smoker Tobacco: How many years used: 45 Electronic Cigarette Use: with nicotine and not used how long ago did patient quit smokin10/2023 second hand exposure: No alcohol intake: current alcohol intake frequency: a few times a week substance use type: does not use ROS ROS ED ROS Narrative Constitutional: Denies any fevers, lightheadedness, dizziness Eyes: Denies double vision Cardiovascular: Denies chest pain Respiratory: States that she has shortness of breath but this is not new this is a chronic issue Abdomen: Denies nausea vomiting diarrhea : States that she is diagnosed with a UTI recently Neurological: Complains of generalized weakness denies numbness or tingling Musculoskeletal: Denies back pain Skin: Denies any rashes or lesions EXAM Physical Exam Narrative Exam Narrative: General: Patient lying in bed resting comfortably do not appear to be in acute distress Head: Atraumatic, normocephalic Eyes: PERRL bilaterally, EOMI biotic no conjunctival injection noted Neck: Soft, supple, trachea midline Cardiovascular: Patient tachycardic with a regular rhythm Respiratory: Clear to auscultation bilaterally Abdomen: Soft, nondistended, nontender to palpation Extremities: +4/5 strength noted in the bilateral upper and lower extremities Neurological: Patient follow commands knew that she was at [facility] years 2024 Skin: Warm, dry, intact no rashes or lesions noted Const Vital Signs: 06/04/25 18:17 06/04/25 18:18 06/04/25 18:24 Temperature 98.9 F 99.2 F H Temperature Source Oral Oral Pulse Rate 103 H 90 Respiratory Rate 16 22 H Respiratory Effort Respiratory Pattern Blood Pressure 124/74 H 161/58 H Blood Pressure Mean 90 92 Pulse Ox 95 94 94 Oxygen Delivery Method Room Air Room Air Room Air 06/04/25 18:25 06/04/25 19:18 06/04/25 20:00 Temperature 98.7 F 98 F Temperature Source Oral Oral Pulse Rate 84 85 Respiratory Rate 20 H 31 H Respiratory Effort Labored Respiratory Pattern Tachypnea Blood Pressure 131/69 H 128/81 H Blood Pressure Mean 89 96 Pulse Ox 99 97 Oxygen Delivery Method Room Air Room Air 06/04/25 21:24 Temperature 98.1 F Temperature Source Oral Pulse Rate 93 Respiratory Rate 22 H Respiratory Effort Respiratory Pattern Blood Pressure 165/69 H Blood Pressure Mean 101 Pulse Ox 94 Oxygen Delivery Method Room Air MDM MDM MDM Narrative Medical decision making narrative: Patient is a 85-year-old female who presents to the emerged part with chief complaint of concern for hypotension and generalized weakness. On the differential diagnose includes but not limited to UTI, pyelonephritis, orthostatic hypotension, dehydration. Once workup is obtained reviewed she will be reevaluated. Patient will not be given 30 cc/kg bolus of IV fluid secondary to her history of heart failure therefore she will be given 1 L of IV fluids which was ordered 1823. It is patient CBC reviewed showed a white blood count of 7.7, hemoglobin 11.8, platelet count was noted be 330, INR normal at 0.9, PT of 12.8. Patient sodium was 141, potassium normal at 4.1, creatinine was 1.34 she has underlying chronic kidney disease, AST and ALT are 2426 respectively. Patient troponin was noted to be 17 EKG reviewed showed sinus rhythm with a rate of 95 bpm. Patient's urinalysis reviewed showed 100 leukocyte esterase negative nitrates 10-25 white cells with 2+ bacteria this is questionably a contaminated sample with 10-25 squamous epithelial cells this was sent for culture. Patient chest x-ray today was reviewed by myself and by radiology which showed moderate emphysema no focal consolidation or pleural effusion. Patient just had a CT of her chest on 05/26/2025 which was reviewed and showed no PE atelectasis versus parenchymal scarring lung bases bilaterally arteriosclerotic vascular disease of the aorta was noted. Reperfusion assessment performed at 1923 patient remained hypertensive therefore no vasopressors indicated. Patient ambulated here in the emergency department and did desaturate to 89%. Patient's previous culture that grew out ESBL was reviewed and showed near farfan resistance with and sensitive to ampicillin/sulbactam, Levaquin, ciprofloxacin. Given this she will be given 2 g of meropenem. At this point time will discuss case with hospitalist for admission for her dyspnea on exertion, hypoxia, ESBL infection. Discussed case with hospitalist Dr. Daly who accept patient for admission. Updated the patient she is agreeable this plan as well as daughter at bedside all question concerns answered. Lab Data Labs: Laboratory Results - last 24 hr 06/04/25 06/04/25 18:47 19:39 WBC 7.7 RBC 4.31 Hgb 11.8 L Hct 37.0 MCV 85.8 MCH 27.4 MCHC 31.9 L RDW Std Deviation 47.0 H RDW Coeff of Kal 14.7 H Plt Count 330 MPV 10.1 Immature Gran % (Auto) 0.400 Neut % (Auto) 60.1 Lymph % (Auto) 21.7 [place] % (Auto) 8.8 Eos % (Auto) 8.4 H Baso % (Auto) 0.6 Absolute Neuts (auto) 4.7 Absolute Lymphs (auto) 1.68 Nucleated RBC % 0 PT 12.8 INR 0.9 APTT 28.5 Sodium 141 Potassium 4.1 Chloride 105 Carbon Dioxide 23.1 Anion Gap 12 BUN 27 H Creatinine 1.34 H Estim Creat Clear Calc 32.56 L Est GFR (MDRD) Non-Af 39 L BUN/Creatinine Ratio 20.1 H Glucose 95 Lactic Acid 1.5 Calcium 8.8 Total Bilirubin 0.21 AST 24 ALT 26 Alkaline Phosphatase 94 Troponin T High Sens 17 H D Total Protein 6.5 Albumin 3.5 Globulin 3.0 Albumin/Globulin Ratio 1.1 Urine Color Yellow Urine Clarity Sl. Cloudy Urine pH 6.0 Ur Specific [place] 1.025 Urine Protein 30 H Urine Glucose (UA) Normal Urine Ketones Negative Urine Occult Blood 10 H Urine Nitrite Negative Urine Bilirubin Negative Urine Urobilinogen 4 H Ur Leukocyte Esterase 100 H Urine RBC 0-5 SEEN Urine WBC 10-25 SEEN Ur Squamous Epith Cells 10-25 SEEN Urine Bacteria 2+ Urine Mucus 0 SEEN Radiography Diagnostic Testing: Clinical Impression(s) from Imaging Studies Chest X-Ray 06/04/25 19:09 IMPRESSION: Moderate emphysema. No focal consolidation or pleural effusion. Reading Location: [facility] Discharge Plan Triage Chief Complaint: Hypotension ED Provider: Otto Cueto Dx/Rx/DC Orders Clinical Impression: Acute hypoxic respiratory failure, Dyspnea on exertion, History of ESBL E. coli infection, Generalized weakness Prescriptions: No Action omeprazole 40 mg capsule,delayed release(DR/EC) 40 mg PO BID celecoxib [Celebrex] 200 mg capsule 200 mg PO BID duloxetine 30 mg capsule,delayed release(DR/EC) 30 mg PO QDAY valsartan 320 mg tablet 320 mg PO QDAY metoprolol succinate 50 mg tablet extended release 24 hr 50 mg PO DAILY Qty: 90 3RF amlodipine 10 mg tablet 10 mg PO QDAY albuterol sulfate 90 mcg/actuation HFA aerosol inhaler 2 puff inhalation Q4H PRN levothyroxine [Levoxyl] 137 mcg tablet 137 mcg PO MOTUWETHFR levothyroxine [Synthroid] 137 mcg tablet 68.5 mcg PO SA aspirin 81 MG tablet,chewable 81 mg PO DAILY@0800 rosuvastatin 5 MG tablet 5 mg PO DAILY tramadol 50 mg tablet 50 mg PO Q12H nitrofurantoin monohyd/m-cryst 100 mg capsule 100 mg PO Q12 Qty: 10 0RF Primary Care Provider: Max Jordan Referrals: Max Jordan MD [Primary Care Provider] - Print Language: Malian Disposition Disposition: Acute Care Hospital [facility]
[2025-06-04 19:42] LABS: Partial Thromboplast Time 28.5 Seconds (24.1-36.2)
[2025-06-04 19:53] LABS: Mucous, Urine 0 SEEN /hpf (<or=2+)
[2025-06-04 20:10] LABS: Color, Urine Yellow (Yellow); Glucose, Dipstick Normal (Normal); Ketone-Dipstick Negative (Negative); Leukocyte Esterase-Dipstick 100 /ul (Negative); Nitrite-Dipstick Negative (Negative); Occult Blood-Urine 10 /ul (Negative); Protein-Dipstick 30 mg/dl (Negative); Specific Gravity, Urine 1.025 (1.002-1.030); Urine Bilirubin Dipstick Negative (Negative)
[2025-06-04 20:21] LABS: Red Blood Cells-Urine 0-5 SEEN /hpf (0-5); Squamous Epithelial Cells - UA 10-25 SEEN /hpf (5-10)
[2025-06-04 21:25] LABS: Troponin T High Sensitivity 17 ng/L (<=14)
[2025-06-04] MEDS: Meropenem 2 GM in 0.9% Normal Saline (100mL Bag) 100 ML IV ×2 (21:30→23:46)
[2025-06-04 21:42] LABS: Pro- Brain NATRIURETIC PEPTIDE 1032 pg/mL (<=1800)
--- NOTE | 2025-06-04 21:45 | HP.PCM_ITS ---
HPI - General General Date of Admission: 06/04/25 Date of Service: 06/04/25 Chief Complaint: Hypotension, shortness of breath on exertion HPI Narrative ANNE MARIE CÁRDENAS, is a 85 F who presents to the emergency room with chief complaint of hypotension. Patient was seen as an outpatient and followed up by cardiology last and was told to hold her antihypertensive medications due to low blood pressure. Today she reported a blood pressure of 80/50 and was told by her leak patcher to report to the emergency room for evaluation. Patient has been diagnosed with urinary tract infection and antibiotics have been changed due to ESBL diagnosis. Patient denies any dysuria but states her urine is frothy. Patient is scheduled to have a heart catheterization on June 18 due to increasing exertional shortness of breath and angina-like symptoms. Today in the emergency room after treatment with meropenem patient was ambulating and felt dyspneic and hypoxic. She will be admitted and treated for IV antibiotics of urinary tract infection. Will continue to hold antihypertensive medications although her blood pressure is elevated at the time of my evaluation. Patient denies any chest pain, shortness of breath at rest and/or fevers or chills at present time. Patient has had some nausea and vomiting earlier today. [facility] Medical History History of ESBL E. coli infection Trigger middle finger of left hand Tobacco abuse Personal history of colonic polyps Osteoarthritis Heart attack Graves disease COPD (chronic obstructive pulmonary disease) CAD (coronary artery disease) Left ventricular diastolic dysfunction Chronic diastolic (congestive) heart failure Nicotine dependence Atherosclerosis of coronary artery of [place] heart without angina pectoris History of non-ST elevation myocardial infarction (NSTEMI) (12/21/19) Vertigo Essential hypertension Hypothyroidism Anxiety and depression MATT (obstructive sleep apnea) Obesity HLD (hyperlipidemia) Home Medications ?Medication ?Instructions ?Recorded ?Last Taken ?Type aspirin 81 mg chewable tablet 81 mg PO DAILY@0800 hear t health 05/07/20 05/06/20 History rosuvastatin 5 mg tablet 5 mg PO DAILY cholesterol 05/06/20 History omeprazole 40 mg capsule,delayed 40 mg PO BID 01/29/22 Unknown History release celecoxib 200 mg capsule (Celebrex) 200 mg PO BID 01/06 03/31 Unknown History duloxetine 30 mg capsule,delayed 30 mg PO QDAY 5 Unknown History release metoprolol succinate 50 mg 50 mg PO DAILY heart #90 ta bs 03/22/25 Unknown Rx tablet,extended release 24 hr tramadol 50 mg tablet 50 mg PO Q12H Pain Score 1-1 0 03/22/25 Unknown History valsartan 320 mg tablet 320 mg PO QDAY 03/22/25 Unkn own History nitrofurantoin 100 mg PO Q12 #10 CAPSULES 0 05/29/25 Unknown Rx monohydrate/macrocrystals 100 mg capsule albuterol sulfate 90 mcg/actuation 2 puff inhalation Q 4H PRN 05/30/25 Unknown History aerosol inhaler amlodipine 10 mg tablet 10 mg PO QDAY 05/30/25 Unkno wn History levothyroxine 137 mcg tablet 137 mcg PO MOTUWETHFR Unknown History (Levoxyl) levothyroxine 137 mcg tablet 68.5 mcg PO SA 05/30/25 U nknown History (Synthroid) Allergy/AdvReac Type Severity Reaction Status Date / Time iodine Allergy Severe Angioedema Verified 06/04/25 18:18 guaifenesin (From Mucinex) Allergy Mild Other Verified 06/04/25 18:18 ticagrelor (From Brilinta) AdvReac Severe Shortness Verified 06/04/25 18:18 of breath varenicline (From Chantix) AdvReac Severe Other Verified 06/04/25 18:18 Family History Father CAD (coronary artery disease) Prostate cancer Brother Alzheimer's disease Daughter Breast cancer Daughter Breast cancer Surgical History History of coronary artery stent placement (12/21/19) Social History Smoking Status: Former smoker Tobacco: How many years used: 45 Electronic Cigarette Use: with nicotine and not used how long ago did patient quit smokin10/2023 second hand exposure: No alcohol intake: current alcohol intake frequency: a few times a week substance use type: does not use ROS Constitutional Constitutional: Reports weakness; Denies chills or fever(s) Eyes Eyes: Denies blurry vision ENT HEENT: Denies abnormal hearing Cardiovascular Cardiovascular: Denies chest pain Respiratory/Chest Respiratory/Chest: Reports shortness of breath with exertion Gastrointestinal Gastrointestinal: Reports nausea and vomiting; Denies abdominal pain Genitourinary Genitourinary: Reports urinary urgency; Denies dysuria Musculoskeletal Musculoskeletal: Denies back pain Integumentary Integumentary: Denies dry skin Neurologic Neurologic: Denies abnormal speech or confusion Psychiatric Psychiatric: Denies anxiety Vital Signs Vital Signs Vital Signs: 06/04/25 18:17 06/04/25 18:18 06/04/25 18:24 Temperature 98.9 F 99.2 F H Temperature Source Oral Oral Pulse Rate 103 H 90 Respiratory Rate 16 22 H Respiratory Effort Respiratory Pattern Blood Pressure 124/74 H 161/58 H Blood Pressure Mean 90 92 Pulse Ox 95 94 94 Oxygen Delivery Method Room Air Room Air Room Air 06/04/25 18:25 06/04/25 19:18 06/04/25 20:00 Temperature 98.7 F 98 F Temperature Source Oral Oral Pulse Rate 84 85 Respiratory Rate 20 H 31 H Respiratory Effort Labored Respiratory Pattern Tachypnea Blood Pressure 131/69 H 128/81 H Blood Pressure Mean 89 96 Pulse Ox 99 97 Oxygen Delivery Method Room Air Room Air 06/04/25 21:24 Temperature 98.1 F Temperature Source Oral Pulse Rate 93 Respiratory Rate 22 H Respiratory Effort Respiratory Pattern Blood Pressure 165/69 H Blood Pressure Mean 101 Pulse Ox 94 Oxygen Delivery Method Room Air Weight Weight: 182 lb 12.8 oz Body Mass Index (BMI) 31.4 Physical Exam Const oriented x3 General Appearance: cooperative and well developed HEENT normocephalic and head/scalp atraumatic Eyes PERRL Neck no lymphadenopathy Lymph Lymphatic: no lymphadenopathy noted Resp normal respiratory effort, normal air movement and clear to auscultation bilaterally Cardio regular rate, regular rhythm, S1 normal heart sound and S2 normal heart sound GI normal to inspection, nondistended, normoactive bowel sounds Extremity normal capillary refill Skin General Skin Exam: no breakdown Neuro no focal motor deficits and no sensory deficits noted Speech: speech normal Psych thought process normal and cooperative Appearance: appropriate Results Lab / Micro Data 06/04/25 18:47 06/04/25 18:47 Labs: Laboratory Results - last 24 hr 06/04/25 18:47: WBC 7.7, RBC 4.31, Hgb 11.8 L, Hct 37.0, MCV 85.8, MCH 27.4, M CHC 31.9 L, RDW Std Deviation 47.0 H, RDW Coeff of Kal 14.7 H, Plt Count 330, MPV 10.1, Immature Gran % (Auto) 0.400, Neut % (Auto) 60.1, Lymph % (Auto) 21.7, [place] % (Auto) 8.8, Eos % (Auto) 8.4 H, Baso % (Auto) 0.6, Absolute Neuts (auto) 4.7, Absolute Lymphs (auto) 1.68, Nucleated RBC % 0, PT 12.8, INR 0.9, APTT 28.5, Sodium 141, Potassium 4.1, Chloride 105, Carbon Dioxide 23.1, Anion Gap 12, BUN 27 H, Creatinine 1.34 H, Estim Creat Clear Calc 32.56 L, Est GFR (MDRD) Non-Af 39 L, BUN/Creatinine Ratio 20.1 H, Glucose 95, Lactic Acid 1.5, Calcium 8.8, Total Bilirubin 0.21, AST 24, ALT 26, Alkaline Phosphatase 94, Troponin T High Sens 17 H D, NT pro BNP II 1032, Total Protein 6.5, Albumin 3.5, Globulin 3.0, Albumin/Globulin Ratio 1.1 06/04/25 19:39: Urine Color Yellow, Urine Clarity Sl. Cloudy, Urine pH 6.0, Ur Specific [place] 1.025, Urine Protein 30 H, Urine Glucose (UA) Normal, Urine Ketones Negative, Urine Occult Blood 10 H, Urine Nitrite Negative, Urine Bilirubin Negative, Urine Urobilinogen 4 H, Ur Leukocyte Esterase 100 H, Urine RBC 0-5 SEEN, Urine WBC 10-25 SEEN, Ur Squamous Epith Cells 10-25 SEEN, Urine Bacteria 2+, Urine Mucus 0 SEEN Imaging Radiology Impression Chest X-Ray 06/04/25 19:09 IMPRESSION: Moderate emphysema. No focal consolidation or pleural effusion. Reading Location: [id number] Assessment & Plan Assessment/Plan (1) Generalized weakness: (2) History of ESBL E. coli infection: (3) Dyspnea on exertion: (4) Essential hypertension: (5) HLD (hyperlipidemia): QUALIFIERS: Hyperlipidemia type: pure hypercholesterolemia Q ualified Code(s): E78.00 - Pure hypercholesterolemia, unspecified PLAN: Plan 1 generalized weakness secondary to urinary tract infection?admit patient to progressive care unit, continue meropenem initiated in the emergency room. CBC BMP in the a.m. IV normal saline 75 cc/h 2. Dyspnea on exertion?oxygen support, advised patient to continue plan for heart catheterization June 18 and that would be more appropriate to wait for IV antibiotic therapy to be complete prior to heart catheterization 3. Hypertension?patient has been hypotensive prior to arrival and will continue to hold her antihypertensive medication and address as needed as blood pressure improves 4. Hyperlipidemia?continue statin medication 5. DVT prophylaxis?SCDs Charges/Coding Visit Charges Inpatient E&M: 72459 Init Hosp L2
[2025-06-04 21:47] LABS: Troponin T High Sens 2 HR 14 ng/L (<=14)
[2025-06-04] MEDS: 0.9% Normal Saline (1000mL) 1,000 ML 75 ML IV (23:24)
[2025-06-05 01:22] LABS: Troponin T High Sens 4 HR 14 ng/L (<=14)
[2025-06-05 05:35] VITALS: BP 124/70; PULSE 72; RESP 18; TEMP 36.3; O2SAT 95
[2025-06-05 06:06] LABS: Hematocrit 34.4 % (37-47); Hemoglobin 11.2 g/dL (12.0-15.0); Immature Granulocytes Count 0.020 X10^3/uL (0.0-0.0); Mean Corp Hgb Conc 32.6 g/dL (32-36); Mean Corpuscular Volume 85.8 fL (81-99); Mean Platelet Vol. 10.0 fl (6.2-12.0); NRBC Flagged by Analyzer 0 % (0-5); Platelet Count 295 K/mm3 (150-450); RBC Distribution Width CV 14.6 % (11.6-14.6); RBC Distribution Width SD 46.1 fl (35.1-43.9); Red Blood Count 4.01 M/mm3 (4.2-5.4); White Blood Count 7.2 K/mm3 (4.4-11.0)
[2025-06-05 06:37] LABS: Anion Gap 11 (5-15); BUN 22 mg/dL (4-19); BUN/Creat Ratio 20.4 RATIO (10-20); Calcium,Total 8.5 mg/dL (7.6-11.0); Carbon Dioxide 23.5 mmol/L (21.0-32.0); Chloride 107 mmol/L (98-108); Estimated Creatinine Clearance 40.68 ml/min (50-250); Glucose 81 mg/dL (70-99); Potassium 3.8 mmol/L (3.3-5.1)
--- NOTE | 2025-06-05 08:08 | PCM.PN.HOSP ---
Reason for Visit Chief Complaint: Hypotension, shortness of breath on exertion Subjective Subjective Patient's biggest complaint is her shortness of breath. She also was admitted for ESBL producing E. coli and generalized weakness. She has not yet been out of bed today. Antibiotics are appropriate at this time and awaiting ID input. Patient states she has had ongoing shortness of breath and has been seen by pulmonary medicine and cardiology. She does have an upcoming cardiac catheterization on 06/18/2025 to rule out coronary disease as all of her tests thus far have been unremarkable. She is stable on room air at this time. Objective Data Objective Data Vital Signs: Vital Signs Temp Pulse Resp BP Pulse Ox O2 Del Method 97.4 F L 72 18 124/70 H 95 Room Air 06/05/25 05:35 06/05/25 05:35 06/05/25 05:35 06/05/25 05:35 06/05/25 05:35 06/05/25 07:26 Oxygen Delivery Method Room Air Weight: 82.554 kg Body Mass Index (BMI) 31.2 Intake & Output: Intake and Output for Last 24 Hours 06/03/25 06/04/25 06/05/25 23:59 23:59 23:59 Intake Total 1000 / 1000 320 / 320 Output Total 0 / 0 Balance 1000 / 1000 320 / 320 Lab / Micro Data 06/05/25 05:40 06/05/25 05:40 Labs: Laboratory Results - last 24 hr 06/04/25 18:47: WBC 7.7, RBC 4.31, Hgb 11.8 L, Hct 37.0, MCV 85.8, MCH 27.4, MCHC 31.9 L, RDW Std Deviation 47.0 H, RDW Coeff of Kal 14.7 H, Plt Count 330, MPV 10.1, Immature Gran % (Auto) 0.400, Neut % (Auto) 60.1, Lymph % (Auto) 21.7, [place] % (Auto) 8.8, Eos % (Auto) 8.4 H, Baso % (Auto) 0.6, Absolute Neuts (auto) 4.7, Absolute Lymphs (auto) 1.68, Nucleated RBC % 0, PT 12.8, INR 0.9, APTT 28.5, Sodium 141, Potassium 4.1, Chloride 105, Carbon Dioxide 23.1, Anion Gap 12, BUN 27 H, Creatinine 1.34 H, Estim Creat Clear Calc 32.56 L, Est GFR (MDRD) Non-Af 39 L, BUN/Creatinine Ratio 20.1 H, Glucose 95, Lactic Acid 1.5, Calcium 8.8, Total Bilirubin 0.21, AST 24, ALT 26, Alkaline Phosphatase 94, Troponin T High Sens 17 H D, NT pro BNP II 1032, Total Protein 6.5, Albumin 3.5, Globulin 3.0, Albumin/Globulin Ratio 1.1 06/04/25 19:39: Urine Color Yellow, Urine Clarity Sl. Cloudy, Urine pH 6.0, Ur Specific [place] 1.025, Urine Protein 30 H, Urine Glucose (UA) Normal, Urine Ketones Negative, Urine Occult Blood 10 H, Urine Nitrite Negative, Urine Bilirubin Negative, Urine Urobilinogen 4 H, Ur Leukocyte Esterase 100 H, Urine RBC 0-5 SEEN, Urine WBC 10-25 SEEN, Ur Squamous Epith Cells 10-25 SEEN, Urine Bacteria 2+, Urine Mucus 0 SEEN 06/04/25 21:22: Troponin T Hi Sens 2 Hr 14 06/05/25 00:55: Troponin T Hi Sens 4Hr 14 06/05/25 05:40: WBC 7.2, RBC 4.01 L, Hgb 11.2 L, Hct 34.4 L, MCV 85.8, MCH 27.9, MCHC 32.6, RDW Std Deviation 46.1 H, RDW Coeff of Kal 14.6, Plt Count 295, MPV 10.0, Immature Gran % (Auto) 0.300, Neut % (Auto) 61.7, Lymph % (Auto) 21.5, [place] % (Auto) 8.2, Eos % (Auto) 7.9 H, Baso % (Auto) 0.4, Absolute Neuts (auto) 4.5, Absolute Lymphs (auto) 1.55, Nucleated RBC % 0, Sodium 141, Potassium 3.8, Chloride 107, Carbon Dioxide 23.5, Anion Gap 11, BUN 22 H, Creatinine 1.07, Estim Creat Clear Calc 40.68 L, Est GFR (MDRD) Non-Af 51 L, BUN/Creatinine Ratio 20.4 H, Glucose 81, Calcium 8.5, TSH 4.030 Radiography Diagnostic Testing: Radiology Impression Chest X-Ray 06/04/25 19:09 IMPRESSION: Moderate emphysema. No focal consolidation or pleural effusion. Reading Location: [facility] Physical Exam Const alert, oriented x3, no apparent distress and well nourished Constitutional Narrative: Obese, elderly, white female, lying in bed, appears comfortable, does not look toxic HEENT head/scalp atraumatic and moist oral mucous membranes HEENT Narrative: Mallampati 2, no thrush Head and Scalp: normocephalic Resp normal respiratory effort, no retractions, no use of accessory muscles and clear to auscultation bilaterally Auscultation: Negative for crackles, rhonchi or wheezes Cardio regular rate, regular rhythm, S1 normal heart sound, S2 normal heart sound, no murmurs, no rub, no gallops and no clicks GI normal to inspection, nondistended, normoactive bowel sounds, soft to palpation and non-tender Extremity no clubbing, cyanosis or edema Extremity Narrative: Pedal and radial pulses are 2+ Neuro oriented x3, moves all extremities and no focal motor deficits Speech: speech normal Psych affect normal Psych Narrative: Very pleasant, interacts appropriately, makes good eye contact Assessment & Plan Assessment/Plan (1) Infection due to ESBL-producing Escherichia coli: (2) Generalized weakness: (3) Dyspnea on exertion: PLAN: Plan ESBL E. coli UTI - Patient currently on meropenem - Consult ID for assistance with discharge antibiotics Generalized weakness -Consult physical therapy for assessment - Patient is independent in bed mobility Dyspnea on exertion - Per discussion with patient she is followed up with both pulmonary medicine and cardiology - Pulmonary workup was unremarkable - Had a negative stress test on 01/30/2025 - Echocardiogram was performed and unremarkable - Plan is for cardiac catheterization which has been scheduled for 06/18/2025 -Patient without any chest pain-or other symptoms concerning for acutely worsening disease so okay to continue with outpatient follow-up CAD/essential hypertension/hyperlipidemia - PCI-BMS-Mid RCA w/ 3.0 x 15 mm Vision Stent 01/21/2010; PCI-MARCOS-Mid LCx w/ 2.25 x 28 mm Synergy 12/21/2019 - Continue home amlodipine - Continue home rosuvastatin - Valsartan and metoprolol are on hold currently per cardiology as her blood pressure was low at her last cardiology visit on 05/30/2025 - Will reevaluate while she is hospitalized and consider reinitiation if elevated - Continue home aspirin Hypothyroidism - Continue home levothyroxine COPD - Continue outpatient pulmonary medicine follow-up - Is not on oxygen chronically and not on any inhalers - Emphysematous changes on chest x-ray - Patient with remote history of tobacco abuse GERD - Continue PPI Depression - Continue home duloxetine B12 deficiency - Continue outpatient follow-up with primary care physician Osteoarthritis - Continue Celebrex - Would recommend holding close 2 cardiac catheterization Obesity - BMI 31.2 - Recommend weight loss - Complicates treatment, prognosis, outcomes DVT prophylaxis - Start enoxaparin 40 daily CODE STATUS - DNR CCA okay for short-term intubation per discussion with patient Charges/Coding Visit Charges Inpatient E&M: 36813 Subs Hosp L2
--- NOTE | 2025-06-05 10:11 | PCM.CONS.GEN ---
Assessment & Plan Assessment/Plan (1) Infection due to ESBL-producing Escherichia coli: PLAN: Comp uti due to esbl ecoli - on pao, will continue will follow, thank you HPI Consult Data Date of Consult: 06/05/25 HPI Narrative Reason for Consultation: uti HPI Narrative: ANNE MARIE CÁRDENAS, is a 85 F with h/o COPD, CHF, MATT, reports 6 months of dyspnea with unrevealing cardiac/pulm workup. Recently dx with uti, started on po abx, had new hypotension and sent to ED. Now on meropenem, feeling about the same. Denies dysuria, no abd pain. Had some frothy urine recently per admitting documentation. Full ROS performed and neg except as noted above. [facility] Medical History History of ESBL E. coli infection Trigger middle finger of left hand Tobacco abuse Personal history of colonic polyps Osteoarthritis Heart attack Graves disease COPD (chronic obstructive pulmonary disease) CAD (coronary artery disease) Left ventricular diastolic dysfunction Chronic diastolic (congestive) heart failure Nicotine dependence Atherosclerosis of coronary artery of [place] heart without angina pectoris History of non-ST elevation myocardial infarction (NSTEMI) (12/21/19) Vertigo Essential hypertension Hypothyroidism Anxiety and depression MATT (obstructive sleep apnea) Obesity HLD (hyperlipidemia) Home Medications ?Medication ?Instructions ?Recorded ?Last Taken ?Type aspirin 81 mg chewable tablet 81 mg PO DAILY@0800 heart health 05/07/20 05/06/20 History rosuvastatin 5 mg tablet 5 mg PO DAILY cholesterol 05/07/20 05/06/20 History omeprazole 40 mg capsule,delayed 40 mg PO BID stomach 01/29/22 Unknown History release celecoxib 200 mg capsule (Celebrex) 200 mg PO BID mood 01/21/24 Unknown History duloxetine 30 mg capsule,delayed 30 mg PO QDAY mood 03/22/25 Unknown History release metoprolol succinate 50 mg 50 mg PO DAILY heart #90 tabs 03/22/25 Unknown Rx tablet,extended release 24 hr Held on 06/04/25. Instructions: MD Ordered tramadol 50 mg tablet 50 mg PO Q12H Pain Score 1-10 03/22/25 Unknown History valsartan 320 mg tablet 320 mg PO QDAY bp 03/22/25 Unknown History Held on 06/04/25. Instructions: MD Ordered amlodipine 10 mg tablet 10 mg PO QDAY bp 05/30/25 Unknown History Held on 06/04/25. Instructions: MD Ordered levothyroxine 137 mcg tablet 137 mcg PO MOTUWETHFR thyroid 05/30/25 Unknown History (Levoxyl) levothyroxine 137 mcg tablet 68.5 mcg PO SA thyroid 05/30/25 Unknown History (Synthroid) Allergy/AdvReac Type Severity Reaction Status Date / Time iodine Allergy Severe Angioedema Verified 06/04/25 18:18 guaifenesin (From Mucinex) Allergy Mild Other Verified 06/04/25 18:18 ticagrelor (From Brilinta) AdvReac Severe Shortness Verified 06/04/25 18:18 of breath varenicline (From Chantix) AdvReac Severe Other Verified 06/04/25 18:18 Family History Father CAD (coronary artery disease) Prostate cancer Brother Alzheimer's disease Daughter Breast cancer Daughter Breast cancer Surgical History History of coronary artery stent placement (12/21/19) Social History Smoking Status: Former smoker Tobacco: How many years used: 45 Electronic Cigarette Use: with nicotine and not used how long ago did patient quit smokin10/2023 second hand exposure: No alcohol intake: current alcohol intake frequency: a few times a week substance use type: does not use Physical Exam Const alert and no apparent distress General Appearance: cooperative HEENT normocephalic and head/scalp atraumatic Eyes PERRL and EOMs intact bilaterally Neck supple and No nodes Resp normal air movement Auscultation: wheezes Cardio regular rate and regular rhythm GI soft to palpation, non-tender and non-distended Extremity General Extremity: Negative for edema Skin no rashes or lesions noted Neuro CN's II-XII intact bilaterally Lab / Micro Data Attestation: I reviewed the patient's lab results. 06/05/25 05:40 06/05/25 05:40 Labs: Laboratory Results - last 24 hr 06/04/25 18:47: WBC 7.7, RBC 4.31, Hgb 11.8 L, Hct 37.0, MCV 85.8, MCH 27.4, MCHC 31.9 L, RDW Std Deviation 47.0 H, RDW Coeff of Kal 14.7 H, Plt Count 330, MPV 10.1, Immature Gran % (Auto) 0.400, Neut % (Auto) 60.1, Lymph % (Auto) 21.7, [place] % (Auto) 8.8, Eos % (Auto) 8.4 H, Baso % (Auto) 0.6, Absolute Neuts (auto) 4.7, Absolute Lymphs (auto) 1.68, Nucleated RBC % 0, PT 12.8, INR 0.9, APTT 28.5, Sodium 141, Potassium 4.1, Chloride 105, Carbon Dioxide 23.1, Anion Gap 12, BUN 27 H, Creatinine 1.34 H, Estim Creat Clear Calc 32.56 L, Est GFR (MDRD) Non-Af 39 L, BUN/Creatinine Ratio 20.1 H, Glucose 95, Lactic Acid 1.5, Calcium 8.8, Total Bilirubin 0.21, AST 24, ALT 26, Alkaline Phosphatase 94, Troponin T High Sens 17 H D, NT pro BNP II 1032, Total Protein 6.5, Albumin 3.5, Globulin 3.0, Albumin/Globulin Ratio 1.1 06/04/25 19:39: Urine Color Yellow, Urine Clarity Sl. Cloudy, Urine pH 6.0, Ur Specific [place] 1.025, Urine Protein 30 H, Urine Glucose (UA) Normal, Urine Ketones Negative, Urine Occult Blood 10 H, Urine Nitrite Negative, Urine Bilirubin Negative, Urine Urobilinogen 4 H, Ur Leukocyte Esterase 100 H, Urine RBC 0-5 SEEN, Urine WBC 10-25 SEEN, Ur Squamous Epith Cells 10-25 SEEN, Urine Bacteria 2+, Urine Mucus 0 SEEN 06/04/25 21:22: Troponin T Hi Sens 2 Hr 06/05/25 00:55: Troponin T Hi Sens 4Hr 06/05/25 05:40: WBC 7.2, RBC 4.01 L, Hgb 11.2 L, Hct 34.4 L, MCV 85.8, MCH 27.9, MCHC 32.6, RDW Std Deviation 46.1 H, RDW Coeff of [place] 14.6, Plt Count 295, MPV 10.0, Immature Gran % (Auto) 0.300, Neut % (Auto) 61.7, Lymph % (Auto) 21.5, [place] % (Auto) 8.2, Eos % (Auto) 7.9 H, Baso % (Auto) 0.4, Absolute Neuts (auto) 4.5, Absolute Lymphs (auto) 1.55, Nucleated RBC % 0, Sodium 141, Potassium 3.8, Chloride 107, Carbon Dioxide 23.5, Anion Gap 11, BUN 22 H, Creatinine 1.07, Estim Creat Clear Calc 40.68 L, Est GFR (MDRD) Non-Af 51 L, BUN/Creatinine Ratio 20.4 H, Glucose 81, Calcium 8.5, TSH 4.030 Imaging Radiology Impression Chest X-Ray 06/04/25 19:09 IMPRESSION: Moderate emphysema. No focal consolidation or pleural effusion. Reading Location: [id number]
[2025-06-05 11:00] VITALS: BP 153/57; PULSE 67; RESP 16; TEMP 36.6; O2SAT 96
[2025-06-05] MEDS: 0.9% Normal Saline (1000mL) 1,000 ML 75 ML IV ×2 (12:28→22:16)
--- NOTE | 2025-06-05 13:00 | CASEMGMT ---
LIVE ALANIZ Assessment Face to Face with patient for initial transition planning/care coordination assessment. LIVE ALANIZ introduced self and role at [facility], pt voices understanding. Pt is A&Ox4 and is resting comfortably in bed and is calm. Care providers, pharmacy, and demographics verified. Admitting dx: Generalized Weakness, UTI, Dyspnea LACE Strata: 2 PCP: Max Jordan Specialists: RENZO Preferred Pharmacy: [facility] Insurance: [employer] [facility] Prescription Benefit: Yes LNOK: Kaiyln Reveles (daughter) Living Arrangements: Pt lives with her daughter in a split level home with 6 steps between levels and 2 steps to enter the home ADLs/IADLs: Indep. 6-click score is 22. Transportation: Pt reports that she does not drive and that her daughter drives her. Denies concerns DME: CPAP @ [facility] with no additional oxygen. Pt is currently 96% on RA. Pt reports that she has a FWW, Cane, BSC, grab bars, shower chair, and walk-in shower. HHC/SNF: denies hx of Pt?s goal: Home Plan: Anticipate home with no additional needs vs home with IV ATBs. ID consulted and following. Pt states that she feels safe returning home with her daughter once she is medically ready. If pt does not need IV ATBs @ the time of DC, pt denies any homegoing concerns or needs including HH or OP Tx. CM to follow ID consult. Report given to CHILD DEVELOPMENT CONSULTANT CM. Mike Nguyen RN, CM
--- NOTE | 2025-06-05 15:19 | PCM.HOSP.N ---
Hospitalist Note I did discuss CODE STATUS with the patient. She elected for DNR CCA okay for short-term intubation. Order was changed in the computer.
[2025-06-05] MEDS: Meropenem 1 GM in 0.9% Normal Saline (100mL MB+) 100 ML IV ×2 (16:35→22:03)
[2025-06-05 17:00] VITALS: BP 138/67; PULSE 73; RESP 16; TEMP 36.6; O2SAT 95
[2025-06-05 22:00] VITALS: BP 134/71; PULSE 72; RESP 16; TEMP 36.9; O2SAT 95
[2025-06-05] MEDS: MELATONIN 3 MG TABLET 6 MG PO (22:02)
[2025-06-05] MEDS: 0.9% Saline Lock 10 ML Syringe IV (22:02)
[2025-06-06 03:10] VITALS: BP 148/63; PULSE 72; RESP 16; TEMP 36.7; O2SAT 94
[2025-06-06 05:40] VITALS: BP 165/67; PULSE 69; RESP 14; TEMP 36.5; O2SAT 94
[2025-06-06 06:06] LABS: Hematocrit 34.3 % (37-47); Hemoglobin 11.3 g/dL (12.0-15.0); Mean Corp Hgb Conc 32.9 g/dL (32-36); Mean Corpuscular Volume 85.1 fL (81-99); Mean Platelet Vol. 10.0 fl (6.2-12.0); Platelet Count 314 K/mm3 (150-450); RBC Distribution Width CV 14.6 % (11.6-14.6); RBC Distribution Width SD 45.5 fl (35.1-43.9); Red Blood Count 4.03 M/mm3 (4.2-5.4); White Blood Count 8.8 K/mm3 (4.4-11.0)
[2025-06-06 06:32] LABS: AST(SGOT) 19 U/L (<=31); Alanine Aminotransfer ALT/SGPT 18 U/L (<=34); Albumin, Serum 3.0 g/dL (3.4-4.8); Alkaline Phosphatase 69 U/L (35-104); Anion Gap 10 (5-15); BUN 18 mg/dL (4-19); BUN/Creat Ratio 15.6 RATIO (10-20); Calcium,Total 8.7 mg/dL (7.6-11.0); Carbon Dioxide 24.6 mmol/L (21.0-32.0); Chloride 107 mmol/L (98-108); Estimated Creatinine Clearance 38.52 ml/min (50-250); Globulin 2.8 g/dL (2.2-4.2); Glucose 100 mg/dL (70-99); Magnesium 1.7 mg/dL (1.5-2.2); Potassium 4.4 mmol/L (3.3-5.1)
[2025-06-06 08:55] VITALS: BP 154/82; PULSE 73; RESP 14; TEMP 36.6; O2SAT 93
[2025-06-06] MEDS: Meropenem 1 GM in 0.9% Normal Saline (100mL MB+) 100 ML IV (09:15)
[2025-06-06] MEDS: 0.9% Normal Saline (1000mL) 1,000 ML 75 ML IV (11:54)
--- NOTE | 2025-06-06 13:31 | PCM.PN.ID ---
Physical Exam Narrative Feeling well, no fever, no abd pain, discharge planned Const alert and no apparent distress General Appearance: cooperative Resp normal air movement and clear to auscultation bilaterally Cardio regular rate and regular rhythm GI soft to palpation, non-tender and non-distended Skin no rashes or lesions noted ID ID: Route of nutrition/ use of supplements: [] Nutritional Intake: [] IV Site: [] Mayo Catheter: [] Assessment & Plan Assessment/Plan (1) Infection due to ESBL-producing Escherichia coli: PLAN: Comp uti due to esbl ecoli - ok for home after dose of ertapenem to complete short course will follow prn, d/w Dr. De La Cruz
[2025-06-06 13:45] VITALS: BP 130/82; PULSE 172; RESP 20; O2SAT 97
[2025-06-06] MEDS: Amiodarone 150 MG in Dextrose 5%-Water (100mL Bag) 100 ML 600 MG IV BOLUS (13:45)
[2025-06-06 14:03] VITALS: BP 149/65; PULSE 84; RESP 18; O2SAT 98
--- NOTE | 2025-06-06 14:07 | EKG12_ITS ---
Test Reason : AF Blood Pressure : */* mmHG Vent. Rate : 133 BPM Atrial Rate : * BPM P-R Int : * ms QRS Dur : 72 ms QT Int : 322 ms P-R-T Axes : * 49 29 degrees QTcB Int : 479 ms Atrial fibrillation with rapid ventricular response with premature ventricular or aberrantly conducted complexes Nonspecific ST and T wave abnormality Abnormal ECG When compared with ECG of 06-Jun-2025 14:21, Atrial fibrillation has replaced Sinus rhythm Vent. rate has increased by 60 bpm Non-specific change in ST segment in Inferior leads Confirmed by NEEL US, LACEY ([id number]), video news editor NEETU GAGE ([id number]) on 06/08/2025 10:57:49 AM Referred By: Confirmed By: LACEY SHAIKH MD
--- NOTE | 2025-06-06 14:07 | EKG12_ITS ---
Test Reason : SVT Blood Pressure : */* mmHG Vent. Rate : 135 BPM Atrial Rate : * BPM P-R Int : * ms QRS Dur : 76 ms QT Int : 310 ms P-R-T Axes : * 37 58 degrees QTcB Int : 465 ms Atrial fibrillation with rapid ventricular response Nonspecific ST and T wave abnormality Abnormal ECG When compared with ECG of 04-Jun-2025 18:36, Atrial fibrillation has replaced Sinus rhythm Confirmed by NEEL US, LACEY ([id number]), writer editor BRAN ZALDIVAR ([id number]) on 06/07/2025 8:44:15 AM Referred By: Confirmed By: LACEY SHAIKH MD
--- NOTE | 2025-06-06 16:04 | DS.PCM_ITS ---
Providers Date of Admission: 06/04/25 Date of Discharge: 06/06/25 Primary Care Physician: Dr. Max Jordan MD Consultations 06/05/25 08:08 Consult: Infectious Disease Routine Consulting Provider: Mathew Cheema Reason for Consult: ESBL E. coli EMERGENT Consult: No Notified: Yes Date Notified: 06/05/25 Time Notified: 08:23 Method of Notification: Text Reason For Visit: GENERALIZED WEAKNESS, UTI, DYSPNEA ON EXERTION Diagnosis Discharge Diagnosis (1) Infection due to ESBL-producing Escherichia coli: Status: Acute Code(s): A49.8 - Other bacterial infections of unspecified site; Z16.12 - Extended spectrum beta lactamase (ESBL) resistance Medications at Discharge Home Medications aspirin 81 mg chewable tablet 81 mg PO DAILY@0800 heart health 05/07/20 rosuvastatin 5 mg tablet 5 mg PO DAILY cholesterol 05/07/20 omeprazole 40 mg capsule,delayed release 40 mg PO BID stomach 01/29/22 celecoxib 200 mg capsule (Celebrex) 200 mg PO BID mood 01/21/24 Held on 06/06/25. Instructions: I would recommend holding this while you are on blood thinners to prevent GI bleed duloxetine 30 mg capsule,delayed release 30 mg PO QDAY mood 03/22/25 metoprolol succinate 50 mg tablet,extended release 24 hr 50 mg PO DAILY heart #90 tabs 03/22/25 tramadol 50 mg tablet 50 mg PO Q12H Pain Score 1-10 03/22/25 valsartan 320 mg tablet 320 mg PO QDAY bp 03/22/25 Held on 06/06/25. Instructions: Until told to restart amlodipine 10 mg tablet 10 mg PO QDAY bp 05/30/25 Held on 06/06/25. Instructions: until told to restart levothyroxine 137 mcg tablet (Levoxyl) 137 mcg PO MOTUWETHFR thyroid 05/30/25 levothyroxine 137 mcg tablet (Synthroid) 68.5 mcg PO SA thyroid 05/30/25 amiodarone 200 mg tablet 200 mg PO DAILY #49 tabs 06/06/25 apixaban 5 mg tablet (Eliquis) 5 mg PO BID #60 tabs 06/06/25 Hospital Course Operations None Procedures - (Chest x-ray) Summary of Care Provided Minutes Spent on Discharge: 41 Hospital Course: Mrs. Garza is a an 85-year-old white female who presented to the emergency department at [facility] from her registered art therapist office on 06/04/2025 with hypotension and shortness of breath on exertion. The patient was being seen in the outpatient office and followed up by cardiology. They had altered her antihypertensive medicines due to low blood pressure. She followed up on the day of admission with a blood pressure of 80/50 and was told by the registered art therapist office to come to the emergency department for further evaluation. She was recently diagnosed with urinary tract infection and given antibiotics but antibiotics as an outpatient had been changed due to ESBL E. coli being found. Is unclear what antibiotic she was on for this. Patient does states she does get quite frequent UTIs and does not follow-up with urology. Patient denies dysuria but states her urine is frothy and she has had frequency. The patient was in the emergency department and after her treat with meropenem she was ambulating and felt dyspneic and was found to be mildly hypoxic. Given this she was admitted for treatment of her UTI with antibiotics and monitoring her oxygen levels. She did not require oxygen during hospitalization. ID was consulted given an ESBL organism and she was maintained on meropenem and received a total of 3 days treatment with a dose of ertapenem 1 g prior to discharge. This was under the direction of infectious disease. She was ambulating around the room without any dyspnea and all of a sudden developed dyspnea. On the monitor she was noted to be in A-fib with RVR having heart rates between 150 and 160. I highly suspect this is the etiology of her intermittent shortness of breath as an outpatient. She has had a fairly extensive workup from pulmonology and cardiology and never found to have any arrhythmias. In fact, she was scheduled for cardiac catheterization on the . She was given amiodarone bolus of 150 and converted back to normal sinus rhythm. We placed her on Eliquis 5 mg p.o. twice daily and explained the reason for this being her risk of stroke. Her [id number] 2 score is 5 giving her a 10% risk of stroke/TIA/systemic embolism per year. Her home beta-tracey was reinitiated and we continue to hold her valsartan and amlodipine. She was started on amiodarone oral and she will get 200 mg 3 times daily for 1 week then 200 mg 2 times daily x 1 week then 200 mg daily. Her TSH is within normal limits and liver functions were normal at the time of initiation of amiodarone. I did notify Dr. Rasmussen, her registered art therapist that we did this she has follow-up tomorrow in the registered art therapist office. I also did order a 48-hour Holter monitor on her for assessment of her cardiac rhythm. Given her frequent UTIs have also requested she contact Dr. Fuentes's office next week to set an appointment to be evaluated further. She was seen by physical therapy given weakness on presentation and did very well with no need of ongoing therapy services at time of discharge. Patient was discharged home in stable condition after her last dose of ertapenem on 06/06/2025. Prescriptions were sent to her local pharmacy. Discharge diagnoses: ESBL complicated E. coli UTI New onset A-fib with RVR Dyspnea on exertion Generalized weakness CAD Essential hypertension Hyperlipidemia Hypothyroidism COPD GERD Depression B12 deficiency Osteoarthritis Obesity Physical Exam Const alert, oriented x3, no apparent distress, no limitations, healthy appearing and well nourished; Negative for average body habitus Constitutional Narrative: Obese, elderly, white female, sitting up in bed, appears well, General Appearance: cooperative, comfortable, well kempt and well developed Exam Limitations: no limitations Nutritional Appearance: obese HEENT normocephalic, head/scalp atraumatic and moist oral mucous membranes; Negative for hearing grossly normal bilaterally HEENT Narrative: Mild hearing loss, Mallampati is 2 Eyes PERRL and conjunctivae normal Eyes Narrative: No scleral icterus Resp normal respiratory effort, normal air movement, no retractions, no use of accessory muscles and clear to auscultation bilaterally Auscultation: Negative for crackles, rhonchi or wheezes Cardio regular rate, regular rhythm, S1 normal heart sound, S2 normal heart sound, no murmurs, no rub, no gallops and no clicks GI normal to inspection, nondistended, normoactive bowel sounds, soft to palpation and non-tender Extremity no clubbing, cyanosis or edema Extremity Narrative: Pedal and radial pulses are 2+ Skin no jaundice General Skin Exam: no breakdown Neuro oriented x3, moves all extremities and no focal motor deficits Speech: speech normal Psych thought process normal, cooperative and affect normal Psych Narrative: Very pleasant, interacts appropriately, makes good eye contact Weight / BMI Weight Weight: 82.554 kg Body Mass Index (BMI) 31.2 ABG / Lab / Microbiology Data 06/06/25 05:26 06/06/25 05:26 Laboratory: Laboratory Results - last 24 hr 06/06/25 05:26: WBC 8.8, RBC 4.03 L, Hgb 11.3 L, Hct 34.3 L, MCV 85.1, MCH 28.0, MCHC 32.9, RDW Std Deviation 45.5 H, RDW Coeff of Kal 14.6, Plt Count 314, MPV 10.0, Sodium 141, Potassium 4.4, Chloride 107, Carbon Dioxide 24.6, Anion Gap 10, BUN 18, Creatinine 1.13, Estim Creat Clear Calc 38.52 L, Est GFR (MDRD) Non- Af 48 L, BUN/Creatinine Ratio 15.6, Glucose 100 H, Calcium 8.7, Phosphorus 3.7, Magnesium 1.7, Total Bilirubin 0.33, AST 19, ALT 18, Alkaline Phosphatase 69, T otal Protein 5.8 L, Albumin 3.0 L, Globulin 2.8, Albumin/Globulin Ratio 1.1 Microbiology: Microbiology 06/04/25 19:39 Urine, Clean Catch Urine Culture - Preliminary Mixed Gram Pos & Gram Neg Org D/C Instructions Discharge Activity: Return to Normal Activity DC O2, CPAP, BIPAP Needs Home O2 Discharge instructions: No Meaningful Use Info Meaningful Use Meaningful Use Diagnoses (Choose all that apply): None applicable Discharge Plan Admission Admit Date/Time: 06/04/25 21:53 Primary Reason for Your Visit: Weakness/shortness of breath Attending Provider: Massiel De La Cruz Primary Care Provider: Max Jordan Consulting Providers: Antonio Daly; Mathew Cheema Instructions Additional Instructions / Restrictions: 1. I am going to have you follow-up with urology- Dr. Fuentes--> call next week to set up an appointment since you are having frequent urinary tract infections. Discharge Orders/Prescriptions Prescriptions: New Eliquis 5 mg Tablet 5 mg PO BID Qty: 60 5RF amiodarone 200 mg tablet 200 mg PO DAILY Qty: 49 0RF Rx Instructions: Take 1 tablet 3 times a day for 1 week, 1 tablet 2 times a day for 1 week then 1 tablet daily Continued omeprazole 40 mg capsule,delayed release(DR/EC) 40 mg PO BID duloxetine 30 mg capsule,delayed release(DR/EC) 30 mg PO QDAY metoprolol succinate 50 mg tablet extended release 24 hr 50 mg PO DAILY Qty: 90 3RF levothyroxine [Levoxyl] 137 mcg tablet 137 mcg PO MOTUWETHFR levothyroxine [Synthroid] 137 mcg tablet 68.5 mcg PO SA aspirin 81 MG tablet,chewable 81 mg PO DAILY@0800 rosuvastatin 5 MG tablet 5 mg PO DAILY tramadol 50 mg tablet 50 mg PO Q12H Held celecoxib [Celebrex] 200 mg capsule 200 mg PO BID Hold Instructions: I would recommend holding this while you are on blood thinners to prevent GI bleed valsartan 320 mg tablet 320 mg PO QDAY Hold Instructions: Until told to restart amlodipine 10 mg tablet 10 mg PO QDAY Hold Instructions: until told to restart Other Ambulatory Orders: Cardiac Holter Monitor, 48 Hrs (Routine) Timeframe: 2 Days Facility: [facility] - Location: Cardiovascular Services Ordered By: Dr. Massiel De La Cruz Referrals / Follow Up: Sandra Fuentes MD [Med Staff - Active Staff] - See Referral Note (Call office next week to set up an appointment for frequent resistant UTIs) Max Jordan MD [Primary Care Provider] - Ilene Salter PA [Med Staff - Adv Practice Prof] - 06/07/25 2:00 pm Disposition Disposition (needs filled in before D/C Order can be placed): Home, Self Care Charges/Coding Visit Charges Inpatient E&M: 37587 Disch Hosp >30min
[2025-06-06] MEDS: Ertapenem Sod 1 GM in 0.9% Normal Saline (50mL MB+) 50 ML IV (16:09)
[2025-06-06] MEDS: APIXABAN 5 MG TABLET PO (16:10)
[2025-06-06 18:00] VITALS: BP 135/77; PULSE 78; RESP 14; TEMP 36.7; O2SAT 98
== END 2025-06-06 18:22 | disposition home or self-care (01) ==
LOC: ED 21:41 → PCU 06-05 06:57
PROVIDERS: Admitting Provider Family Medicine; Emergency Provider Emergency Medicine; PCP Family Medicine; Visit Provider Internal Medicine
DX: N39.0 Urinary tract infection, site not specified (principal); I13.0 Hypertensive heart and chronic kidney disease with heart failure and stage 1 through stage 4 chronic kidney disease, or unspecified chronic kidney disease; I50.32 Chronic diastolic (congestive) heart failure; J43.9 Emphysema, unspecified; I48.91 Unspecified atrial fibrillation; Z16.12 Extended spectrum beta lactamase (ESBL) resistance; B96.20 Unspecified Escherichia coli [E. coli] as the cause of diseases classified elsewhere; Z66 Do not resuscitate; E03.9 Hypothyroidism, unspecified; N18.9 Chronic kidney disease, unspecified; F32.A Depression, unspecified; Z68.31 Body mass index [BMI] 31.0-31.9, adult; E78.00 Pure hypercholesterolemia, unspecified; I25.10 Atherosclerotic heart disease of native coronary artery without angina pectoris; M19.90 Unspecified osteoarthritis, unspecified site; K21.9 Gastro-esophageal reflux disease without esophagitis; E53.8 Deficiency of other specified B group vitamins; G47.33 Obstructive sleep apnea (adult) (pediatric); I25.2 Old myocardial infarction; Z87.891 Personal history of nicotine dependence; Z95.5 Presence of coronary angioplasty implant and graft; Z79.899 Other long term (current) drug therapy; E66.9 Obesity, unspecified; Z79.82 Long term (current) use of aspirin
CPT/HCPCS: 36415; 71046; 80048; 80053; 81001; 83605; 83735; 83880; 84100; 84443; 84484; 85025; 85027; 85610; 85730; 87040; 87086; 87088; 93005; 96361; 96365; 96366; 96367; 97161; 99221; 99285; 99406; J2185; A4216; G0378

== ENCOUNTER → 2025-06-14 | Outpatient (CLI) | payer MEDICARE, SELFPAY ==
[2021-12-05 11:03] VITALS: BMI 29.2
== END | disposition home or self-care (01) ==
LOC: PSN 09:38
PROVIDERS: PCP Family Medicine; Referring Provider Internal Medicine; Visit Provider Internal Medicine
DX: I48.91 Unspecified atrial fibrillation (principal)
CPT/HCPCS: 93225; 93226

== ENCOUNTER 2025-07-30 06:49 | Day surgery (SDC) | payer MEDICARE, SELFPAY ==
[2021-12-05 11:03] VITALS: BMI 29.2
[2025-07-19 10:57] LABS: Hematocrit 40.8 % (37-47); Hemoglobin 12.9 g/dL (12.0-15.0); Immature Granulocytes Count 0.020 X10^3/uL (0.0-0.0); Mean Corp Hgb Conc 31.6 g/dL (32-36); Mean Corpuscular Volume 87.7 fL (81-99); Mean Platelet Vol. 10.5 fl (6.2-12.0); NRBC Flagged by Analyzer 0 % (0-5); Platelet Count 363 K/mm3 (150-450); RBC Distribution Width CV 15.9 % (11.6-14.6); RBC Distribution Width SD 51.2 fl (35.1-43.9); Red Blood Count 4.65 M/mm3 (4.2-5.4); White Blood Count 8.4 K/mm3 (4.4-11.0)
[2025-07-19 11:09] LABS: Partial Thromboplast Time 29.4 Seconds (24.1-36.2); Prothrombin Time (Protime)PT. 16.2 SECONDS (11.7-14.9)
[2025-07-19 11:51] LABS: Anion Gap 13 (5-15); BUN 21 mg/dL (4-19); BUN/Creat Ratio 15.8 RATIO (10-20); Calcium,Total 9.1 mg/dL (7.6-11.0); Carbon Dioxide 27.1 mmol/L (21.0-32.0); Chloride 103 mmol/L (98-108); Glucose 97 mg/dL (70-99); Potassium 4.4 mmol/L (3.3-5.1)
[2025-07-27 09:25] VITALS: BMI 31.4
--- OUTSIDE RECORDS SUMMARY | 2025-07-30 06:54 | XMS RPT_ITS | CCD ---
Author Organization [facility] Care Team Providers Care Communications Associate Name Role Phone Max Rodriguez Referring Unavailable Max Rodriguez Primary Care Unavailable Max Rodriguez MD Primary Care Provider Dr. Max Rodriguez Primary Care Provider Dr. Kelby Nicholas Attending Provider Dr. Kelby Nicholas Referring Provider Dr. Kelby Nicholas Other Provider Dr. Perry Haines Attending Provider Nathaniel RN, Fernanda Yanez Unavailable [phone] Sam RN, Ester Jay Unavailable Max Rodriguez MD Primary Care Provider Sam MANCINI, Ester Jay Unavailable Max Rodriguez MD Primary Care Provider Max Rodriguez MD Primary Care Provider Dr. Max Rodriguez Primary Care Provider Dr. Max Rodriguez Referring Provider Anjali AIR DRIER MACHINE OPERATOR, AIR DRIER MACHINE OPERATOR-C Kelly Attending Provider Dr. Emmett Rasmussen Attending Provider Kvng AIR DRIER MACHINE OPERATOR, AIR DRIER MACHINE OPERATOR-C Concetta Attending Provider Max Rodriguez MD Primary Care Provider Max Rodriguez MD Primary Care Provider Max Rodriguez MD Primary Care Provider LOUISA CHRISTOPHER Attending Unavailable JENNIFER, MAX NOVAK Referring Unavailabl e JENNIFER, MAX NOVAK Referring Unavailabl e JENNIFER, AMX NOVAK Referring Unavailabl e JENNIFER, MAX NOVAK Referring Unavailabl e JENNIFER, MAX NOVAK Referring Unavailabl e JENNIFER, MAX NOVAK Referring Unavailabl e JENNIFER, MAX NOVAK Referring Unavailabl e JENNIFER, MAX NOVAK Primary Care Unavailabl e JOSHUA, STEPHAN E Attending Unavailable JENNIFER, MAX NOVAK Primary Care Unavailabl e JENNIFER, MAX NOVAK Referring Unavailabl e JENNIFER, MAX NOVAK Primary Care Unavailabl e JENNIFER, MAX NOVAK Referring Unavailabl e JENNIFER, MAX NOVAK Primary Care Unavailabl e JENNIFER, MAX NOVAK Referring Unavailabl e JENNIFER, MXA NOVAK Primary Care Unavailabl e JENNIFER, MAX NOVAK Referring Unavailabl e JENNIFER, MAX NOVAK Primary Care Unavailabl e JENNIFER, MAX NOVAK Referring Unavailabl e JENNIFER, MAX NOVAK Primary Care Unavailabl e JENNIFER, MAX NOVAK Referring Unavailabl e JENNIFER, MAX NOVAK Primary Care Unavailabl e JENNIFER, MAX NOVAK Referring Unavailabl e JENNIFER, MAX SCARLET Primary Care Unavailabl e JENNIFER, MAX NOVAK Referring Unavailabl e [facility] Unavailabl e SHAMIKA CATES Attending Unavailable JENNIFER, MAX NOVAK Referring Unavailabl e JENNIFER, MAX SCARLET Primary Care Unavailabl e Knoble CAKE TESTER.CURRENCY EXCHANGE SPECIALIST, Nicole Unavailable J Cralos BANUELOS, Dora Unavailable Dr. Max Rodriguez MD Primary Care Provider Dr. Max Rodriguez MD Attending Provider Dr. Max Rodriguez MD Referring Provider Dr. Max Rodriguez MD Other Provider [phone] Grady [place], Dr. Christine Attending Provider [phone] Dr. Emmett Rasmussen MD Referring Provider PAPI BELTRAN Referring Unavailabl e JENNIFER, MAX Grove Primary Care Unavailable Jennifer US, Max [place] Primary Care Provider Daniel Garcia MD Unavailable Unavailable Max Rodriguez MD Primary Care Provider Sandhya CAKE TESTER.CURRENCY EXCHANGE SPECIALIST, Nicole Unavailable J Carlos BANUELOS, Dora Unavailable [place] CAKE TESTER.CURRENCY EXCHANGE SPECIALIST, Nicole Unavailable J Carlos BANUELOS, Dora Unavailable Dr. Max Rodriguez MD Primary Care Provider Grady US, Dr. Christine Attending Provider Dr. Max Rodriguez MD Referring Provider Yuly FERRARA, Dr. Lowe Emergency Provider NICOLE ZHANG Referring Unavailable MAX RODRIGUEZ Primary Care Unavailable Yuly FERRARA, Dr. Lowe Attending Provider Ilene Shah Attending Provider Jennifer US, Dr. Santana Primary Care Provider Dr. Emmett Rasmussen MD Attending Provider Dr. Otto Cueto DO Emergency Provider Malika US, Dr. Alvarez Attending Provider Malika US, Dr. Alvarez Admit Provider Dr. Antonio Daly MD Other Provider Dr. Massiel De La Cruz DO Attending Provider [phone] Mathew Cheema MD Other Provider Dr. Massiel De La Cruz DO Other Provider Veronica Guajardo RN Unavailable Dr. Emmett Rasmussen MD Referring Provider Dr. Massiel De La Cruz DO Referring Provider [phone] Daniel Garcia Attending Unavailable Daniel Garcia Referring Unavailable Daniel Garcia Attending Unavailable Daniel Garcia Referring Unavailable Daniel Garcia Attending Unavailable Daniel Garcia Referring Unavailable Emmett Rasmussen Attending Unavailable Jennifer, Max Primary Care Unavailable Grady, Emmett Referring Unavailable Jennifer, Max Primary Care Unavailable Massiel De La Cruz Attending Unavailable Jono, Massiel Referring Unavailable Daly, Antonio Consulting Unavailable Daly, Antonio Admitting Unavailable Jennifer, Max Primary Care Unavailable Massiel De La Cruz Attending Unavailable Mathew Cheema Consulting Unavailable Jono, Massiel Consulting Unavailable Jennifer, Max Primary Care Unavailable Ilene Shah Attending Unavail able Jennifer, Max Referring Unavailable Jennifer, Max Primary Care Unavailable Ilene Shah Attending Unavail able Jennifer, Max Referring Unavailable Jennifer, Max Primary Care Unavailable Jennifer, Max Referring Unavailable Grady, Millerton Attending Unavailable Jennifer, Max Primary Care Unavailable Ilene Shah Attending Unavail able Jennifer, Max Referring Unavailable Jennifer, Max Primary Care Unavailable Grady, Millerton Attending Unavailable Grady, Mill[place] Referring Unavailable Jennifer, Max Primary Care Unavailable Jono, Massiel Referring Unavailable Grady, Emmett Attending Unavailable Jennifer, Max Consulting Unavailable Jennifer, Max Primary Care Unavailable Jennifer, Max Referring Unavailable Grady, Emmett Attending Unavailable Daly, Antonio Attending Unavailable Jennifer, Max Primary Care Unavailable Jennifer, Max Attending Unavailable Jennifer, Max Primary Care Unavailable Jennifer, Max Referring Unavailable Jennifer, Max Attending Unavailable Jennifer, Max Primary Care Unavailable Jennifer, Max Referring Unavailable Jennifer, Max Primary Care Unavailable Grady, Millerton Referring Unavailable Grady, Emmett Attending Unavailable Mynor Emery Attending Unavailable Jennifer, Max Primary Care Unavailable Daly, Antonio Consulting Unavailable Daly, Antonio Admitting Unavailable Jennifer, Mxa Primary Care Unavailable Massiel De La Cruz Attending Unavailable Mathew Cheema Consulting Unavailable JENNIFER, MAX A Primary Care Unavailable JENNIFER, MAX A Referring Unavailable JENNIFER, MAX A Attending Unavailable JENNIFER, MAX A Primary Care Unavailable PAPI BELTRAN Attending Unavail able PAPI BELTRAN Referring Unavailabl e JENNIFER, MAX A Primary Care Unavailable NICOLE ZHANG Attending Unavailable JENNIFER, MAX A Primary Care Unavailable JENNIFER, MAX A Primary Care Unavailable JENNIFER, MAX A Attending Unavailable JENNIFER, MAX A Primary Care Unavailable JENNIFER, MAX A Attending Unavailable JENNIFER, MAX A Attending Unavailable JENNIFERJAIMAX A Primary Care Unavailable ARIESGLORIA CARMEN Attending Unavailable JENNIFER, MAX A Primary Care Unavailable JENNIFER, MAX A Referring Unavailable JENNIFER, MAX A Primary Care Unavailable JENNIFER, MAX A Referring Unavailable JENNIFER, MAX A Primary Care Unavailable JENNIFER, MAX A Primary Care Unavailable JENNIFER, MAX A Referring Unavailable JENNIFER, MAX A Primary Care Unavailable JENNIFER, MAX A Referring Unavailable ANGELA HAINES Attending Unavailable JENNIFER, MAX A Primary Care Unavailable JENNIFER, MAX A Referring Unavailable JENNIFER, MAX A Attending Unavailable JENNIFER, MAX A Primary Care Unavailable JENNIFER, MAX A Attending Unavailable JENNIFER, MAX A Primary Care Unavailable JENNIFER, MAX A Referring Unavailable JENNIFER, MAX A Primary Care Unavailable JENNIFER, MAX A Attending Unavailable JENNIFER, MAX A Primary Care Unavailable Allergies Allergy Classification Reported Allergen(s) Allergy Type Date of Onset Reaction(s) Facility guaiFENesin (1 source) guaiFENesin Drug Allergy 7 Mental Status Change [facility] HMG-CoA Reductase Inhibitors (statins) (2 sources) atorvastatin Drug Allergy 7 Other: See Comments [facility] Iodine (and Iodine containting drugs) (1 source) Iodine Drug Allergy 0 Anaphylaxis [facility] tiZANidine (1 source) tiZANidine Drug Allergy 6 Other: See Comments [facility] varenicline (1 source) varenicline Drug Allergy 4 Other: See Comments [facility] (20 sources) Angiotensin Converting Enzyme (Mary) Inhibitors; Translations: [MARY INHIBITORS] Propensity to adverse reactions (disorder) 7 Cough [facility] Repository (20 sources) atorvastatin; Translations: [ATORVASTATIN CALCIUM] Drug Allergy 7 Other: See Comments, Other [facility] Repository (20 sources) guaiFENesin; Translations: [GUAIFENESIN] Drug Allergy 7 Mental Status Change, Hallucinations , Other [facility] Repository Comment on above: dizzy (20 sources) Iodine; Translations: [IODINE] Drug Allergy 0 Anaphylaxis, Angioedema, Hives [facility] Repository (20 sources) Pravastatin; Translations: [PRAVASTATIN SODIUM] Drug Allergy 7 Other: See Comments, Other [facility] Repository (20 sources) tiZANidine; Translations: [TIZANIDINE] Drug Allergy 6 Other: See Comments, Other [facility] Repository (20 sources) varenicline; Translations: [VARENICLINE] Drug Allergy 4 Other: See Comments, Other [facility] Repository Comment on above: homicidal (20 sources) Thiazides; Translations: [THIAZIDES] Drug Intolerance 2 Other: See Comments [facility] Work Phone: (18 sources) Ticagrelor; Translations: [TICAGRELOR] Drug Allergy 0 Shortness of breath [facility] (20 sources) Thiazides Drug Intolerance 2 Other: See Comments, Other [facility] Work Phone: (1 source) ALLERGIES NOT ON FILE; Translations: [ALLERGIES NOT ON FILE] Propensity to adverse reactions (disorder) [facility] 2 Repository (17 sources) Thiazides Drug Intolerance 2 Other: See Comments [facility] (1 source) Ticagrelor Drug Allergy 5 [facility] Repository Medications Current Medications Medication Drug Class(es) Dates Sig (Normalized) Sig (Original) [id number] 200 actuat albuterol 0.09 mg/actuat metered dose [...] January 28, 2022 2:02pm Start: 01-28-2022 End: 2025 Albuterol Sulfate 90 mcg/act uation HFA aerosol inhaler Discontinued 2 NMA INHALATION Q4H 8.5 11 May 15, 2022 3:23pm May 30, 2025 2:07pm Start: 01-28-2022 End: 05-15-2022 take 1 puff(s) [...] aminophylline 25 mg/ml injection (4 sources) Start: 12-21-19 End: 12-28-19 aminophylline 50-250 mg injection amiodarone hydrochloride 200 mg oral tablet (13 sources) Antiarrhythmic Start: 06-12-20 End: 06-25-20 take 1 tablet by mouth once amiodarone (PACERONE) 200 mg tablet Take 1 tablet by mouth once daily. Per [facility]. 06/12/2025 Active Start: 06-06-2025 End: 06-19-2025 take 1 tablet by mouth three times daily, then take 1 tablet by mouth twice daily, then take 1 tablet by mouth once daily Amiodarone 200 mg tablet Discontinued 200 mg PO DAILY 49 0 June 06, 2025 12:00am June 19, 2025 3:32pm Take 1 tablet 3 times a day for 1 week, 1 tablet 2 times a day for 1 week then 1 tablet daily apixaban 5 mg oral tablet (12 sources) Factor Xa Inhibitor Start: 06-06-2025 End: 06-19-2025 apixaban (ELIQUIS) 5 mg tab(s) Take 1 tablet by mouth two times a day. Per [facility]. 06/12/2025 Active aspirin 81 mg chewable tablet (20 sources) Platelet Aggregation Inhibitor, Nonsteroidal Anti-inflammatory Drug Start: 05-07-2020 take 1 tablet by mouth once daily Aspirin 81 MG tablet,chewable Active 81 mg PO DAILY@0800 May 07, 2020 12:00am heart health take 1 tablet by mouth once kelley [...] Comment on above: Take 1 capsule by [facility] twice daily for 7 days. DULoxetine 30 mg delayed release oral capsule (20 sources) Serotonin and Norepinephrine Reuptake Inhibitor Start: 08-02-20 End: 01-27-20 take 1 capsule by mouth once daily DULoxetine (CYMBALTA) 30 mg capsule Take 1 capsule by mouth once daily. In place of the Citaloram 90 capsule 1 01/26/2025 Active levothyroxine sodium 0.137 mg oral tablet (20 sources) l-Thyroxine Start: 05-30-20 Levothyroxine (Synthroid) 137 mcg tablet Active 68.5 ug PO SA May 30, 2025 12:00am thyroid Start: 01-21-2024 End: 05-30-2025 Levothyroxine 125 mcg tablet Discontinued 137 ug PO DAILY January 21, 2024 8:51am May 30, 2025 2:04pm Start: 01-21-2024 take 137 ug by mouth [...] 07, 2020 12:00am January 28, 2022 2:01pm thyroid Start: 05-07-2020 End: 01-28-2022 take 125 ug [...] above: Take one tab once a day and 1/2 a tab on Wednesday, Take on empty stomach. For Thyroid. Take one tab once a day Wed-Wed and 1.5 tabs on Wednesday, Take on empty stomach. For Thyroid. Take one tab once a day Wed-Wed and 2 tabs on Wednesday, Take on empty stomach. For Thyroid. Take one tab by mout h once a day. Take on empty stomach. For Thyroid. Take one tab by mout h once a day and none on Wednesday. Take on empty stomach. For Thyroid. 24 hr metoprolol succinate 25 mg extended release oral tablet (20 sources) beta-Adrenergic Tracey Start: 06-21-2025 take 1 tablet by mouth once daily Metoprolol Succinate 25 mg tablet extended release 24 hr Active 25 mg PO DAILY 90 3 June 21, 2025 12:41pm heart Start: 03-29-2025 End: 06-21-2025 metoprolol succinate ER (TOP ROL XL) 50 mg 24 hr tablet Take 1 tablet by mouth once daily. Decreased by [facility] 03/2025 due to SOB 03/29/2025 Active Start: 03-22-2025 End: 06-20-2025 take 1 tablet by mouth once daily Metoprolol Succinate 50 mg tablet extended release 24 hr Discontinued 50 mg PO DAILY 90 3 March 22, 2025 8:27am June 20, 2025 5:07pm heart Start: 12-21-2023 End: 12-28-2023 metoprolol 2.5-5 mg injectio n (LOPRESSOR) Start: 12-03-2021 End: 03-22-2025 take 1 tablet by mouth once daily Metoprolol Succinate 100 mg tablet extended release 24 hr Discontinued 100 mg PO DAILY December 05, 2021 3:08pm March 22, 2025 8:28am heart Start: 05-07-2020 End: 12-05-2021 Metoprolol Succinate 100 MG tablet extended release 24 hr Discontinued 150 mg PO DAILY May 07, 2020 12:00am December 05, 2021 3:09pm heart Start: 05-07-2020 End: 12-05-2021 take 150 mg by mouth once daily Metoprolol Succinate Discontinued 150 MG PO DAILY May 07, 2020 12:00am December 05, 2021 3:09pm Start: 12-22-2019 End: 01-12-2020 take 1 tablet by mouth twice daily Metoprolol Tartrate 25 MG tablet Discontinued 25 mg PO TWICE A DAY 60 1 December 22, 2019 1:00am January 12, 2020 1:59pm Hold if HR Start: 09-07-2013 End: 12-22-2019 take 1 tablet by mouth once daily Metoprolol Tartrate 25 MG tablet Discontinued 25 mg PO DAILY September 07, 2013 12:00am December 22, 2019 8:42am BP take 1 capsule by [facility] once daily Kapspargo Sprinkle 100 mg capsule,extended release take 1 capsule by oral route every day for blood pressure 100 MG - Active Comment on above: Take 1 tablet by [facility] once daily. nitroglycerin 0.4 mg sublingual tablet (20 sources) Nitrate Vasodilator Start: 12-26-19 End: 06-12-20 nitroglycerin sublingual (NITROQUICK) 0.4 mg SL tablet Dissolve 1 tablet under the tongue every 5 minutes as needed. 25 tablet 6 06/12/2025 Active Comment on above: Dissolve 1 tablet [...] Comment on above: Take 1 capsule by [facility] once daily. Take 1 capsule by [facility] twice daily. Take 1 capsule by [facility] two times a day. ondansetron 4 mg disintegrating oral tablet (20 sources) Serotonin-3 Receptor Antagonist Start: 12-06-19 End: 01-21-20 23 take 1 tablet by mouth every six hours as needed ondansetron orally disintegrating (ZOFRAN ODT) 4 mg disintegrating tablet Take 1 tablet by mouth every 6 hours as needed for nausea/vomiting. 20 tablet 1 01/20/2023 Active Comment on above: Take 1 tablet by [facility] every 6 hours as needed for nausea/vomiting. predniSONE 2.5 mg oral tablet (1 source) Start: 02-08-20 End: 02-18-20 25 take 1 tablet by mouth twice daily [...] Take 1 tablet by satish once daily. traMADol hydrochloride 50 mg oral tablet (20 sources) Opioid Agonist Start: 04-11-20 End: 09-30-20 take 1 tablet by mouth every eight hours as needed for pain traMADol (ULTRAM) 50 mg tablet Indications: Arthritis of both knees , Osteoarthritis, unspecified osteoarthritis type, unspecified site Take 1 tablet by mouth every 8 hours as needed for pain for up to 90 days. 270 tablet 07/02/2025 09/30/2025 Active Start: 07-13-2023 End: 04-06-2024 take 1 [...] 0 01/04/2023 04/04/2023 Active Start: 01-28-2022 End: 07-19-2025 take 1 tablet by mouth every twelve hours Tramadol 50 mg tablet Discontinued 50 mg PO Q12H March 22, 2025 8:01am July 19, 2025 9:17am Pain Score 1-10 Start: 12-03-2021 End: 12-29-2022 take 1 tablet [...] HOURS NEEDED as needed for Pain Score 1-10/10 50 7 May 08, 2020 12:00am May 14, 2020 12:00am May 15, 2020 12:02am Osteoarthritis Unspecified osteoarthritis, unspecified site MAY TAKE WITH TYLENOL Comment on above: Take 1 tablet by satish th every 8 hours as needed for pain for up to 90 days. Take 1 tablet by satish th every 8 hours as needed for pain for up to 270 days. Completed/Discontinued Medications Medication Drug Class(es) Dates Sig (Normalized) Sig (Original) amLODIPine 10 mg oral tablet (20 sources) Dihydropyridine Calcium Channel Tracey Start: 03-29-2025 End: 06-12-2025 take 1 tablet by mouth once daily Amlodipine 10 mg tablet Active 10 mg PO daily May 30, 2025 12:00am bp On Hold: until told to restart Start: 03-22-2025 End: 05-30-2025 take 5 mg by mouth once daily Amlodipine 10 mg tablet Discontinued 5 mg PO DAILY 90 3 March 22, 2025 8:27am May 30, 2025 2:03pm Start: 11-29-2023 End: 03-22-2025 take 1 tablet by mouth once daily Amlodipine 5 mg tablet Discontinued 5 mg PO DAILY December 13, 2023 1:00am March 22, 2025 8:28am Start: 10-22-2023 take 1 tablet by satish [...] once daily. take 1 tablet every day betamethasone 3 mg/ml / betamethasone acetate 3 mg/ml injectable suspension (12 sources) Corticosteroid Start: 01-10-2024 End: 01-10-2024 betamethasone acetate-betamethasone sodium phosphate 6 mg injection (CELESTONE) Start: [...] thasone sodium phosphate 6 mg injection (CELESTONE) cefdinir 300 mg oral capsule (7 sources) Cephalosporin Antibacterial Start: 05-26-2025 End: 05-30-2025 take 1 capsule by mouth every twelve hours Cefdinir 300 mg capsule Discontinued 300 mg PO Q12H 14 0 May 26, 2025 12:00am May 30, 2025 2:04pm celecoxib 200 mg oral capsule (20 sources) Nonsteroidal Anti-inflammatory Drug Start: 12-08-2023 End: 06-12-2025 take 1 capsule by mouth twice daily Celecoxib (Celebrex) 200 mg capsule Active 200 mg PO TWICE A DAY January 21, 2024 12:00am mood On Hold: I would recommend holding this while you are on blood thinners to prevent GI bleed Start: 07-08-2022 End: 07-23-2023 take 1 capsule by mouth twice daily celecoxib (CELEBREX) 100 mg capsule Take 1 capsule by mouth twice daily. 180 capsule 1 07/23/2023 Active take 1 capsule by mo uth once daily for pain celecoxib 100 mg capsule take 1 capsule by oral route every day for joint pain 100 MG - Active Comment on above: Take 1 capsule by mo ut[facility] twice daily. Take 1 capsule by mo uth two times a day. cephalexin 500 mg oral capsule (20 sources) Cephalosporin Antibacterial Start: End: take 1 capsule by mouth three times daily Cephalexin 500 mg capsule Discontinued 500 mg PO THREE TIMES A DAY December 16, 2023 1:00am March 22, 2025 8:00am Comment on above: Take 500 mg by mouth three times a day. cholecalciferol 0.025 mg oral tablet (16 sources) Vitamin D Start: 020 End: 022 take 1 tablet by mouth once daily Cholecalciferol (Vitamin D3) 1,000 UNIT tablet Discontinued 1000 U PO DAILY May 07, 2020 12:00am December 05, 2021 3:09pm supplement citalopram 40 mg oral tablet (20 sources) Serotonin Reuptake Inhibitor Start: 022 End: 025 take 1 tablet by mouth once daily Citalopram 40 mg tablet Discontinued 40 mg PO DAILY January 29, 2022 12:00am March 22, 2025 8:00am Start: 05-07-2020 End: 01-28-2022 take 1 tablet by mouth once daily Citalopram 20 MG tablet Discontinued 20 mg PO DAILY May 07, 2020 12:00am January 28, 2022 2:03pm depression Start: 09-07-2013 End: 01-12-2020 take 1 tablet by mouth once daily Citalopram 40 MG tablet Discontinued 40 mg PO DAILY September 07, 2013 12:00am January 12, 2020 1:59pm anxiety Comment on above: Take 1 tablet by satish th once daily. clopidogrel 75 mg oral tablet (20 sources) P2Y12 Platelet Inhibitor Start: 0 End: 4 take 1 tablet by mouth once daily Clopidogrel 75 MG tablet Discontinued 75 mg PO DAILY May 07, 2020 12:00am December 13, 2023 7:52pm blood thinner On Hold: PT STATES NOT TAKING Comment on above: Take 1 tablet by satish th once daily. COMPOUNDED PRESCRIPTION (20 sources) Start: [...] Dx MATT diazePAM 2 mg oral tablet (20 sources) Benzodiazepine Start: End: take 1 tablet by mouth three times [...] TIMES DAILY NEEDED as needed for Dizziness 15 7 0 May 08, 2020 9:23am May 14, 2020 12:00am May 15, 2020 12:02am Vertigo Dizziness and giddiness famotidine 20 mg oral tablet (20 sources) Histamine-2 Receptor Antagonist Start: 07-23-2023 End: 03-17-2024 famotidine (PEPCID) 20 mg tablet Take 1 tablet by mouth twice daily. Started in ER 05/202307/23/2023 03/17/2024 Discontinued Comment on above: Take 20 [...] Discontinued 2 NMA INHALATION TWICE A DAY May 15, 2022 3:23pm December 13, 2023 [...] 1 Puff as ins tructed twice daily. fluticasone / salmeterol (20 sources) Corticosteroid, beta2-Adrenergic Agonist Start: 08-02-20 End: 06-12-20 take 1 puff(s) by inhalation twice daily fluticasone-salmeter ol (WIXELA INHUB) 250-50 mcg/dose inhaler Inhale 1 Puff as instructed two times a day. 3 Each 1 08/02/2024 06/12/2025 Discontinued (Discontinued by Patient) Start: 08-02-2024 take 1 puff(s) by in halation twice daily fluticasone propion-salmeteroL (Advair Diskus) 250-50 mcg/dose diskus inhaler Inhale 1 puff twice a day. 08/02/2024 Active Start: 08-02-2024 take 1 puff(s) by in halation twice daily fluticasone-salmeterol (WIXELA INHUB) 250-50 mcg/dose inhaler Inhale 1 Puff as instructed two times a day. 3 Each 1 08/02/2024 Active hydroCHLOROthiazide 12.5 mg oral capsule (17 sources) Thiazide Diuretic Start: 12-03-2021 End: 03-20-2022 take 1 capsule by mouth once daily Hydrochlorothiazide 12.5 mg capsule Discontinued 12.5 mg PO DAILY December 05, 2021 1:00am December 05, 2021 3:29pm Comment on above: Take 1 capsule by [facility] once daily. 10 ml lidocaine hydrochloride 10 mg/ml injection (12 sources) Antiarrhythmic , Amide Local Anesthetic Start: 01-10-2024 End: 01-10-2024 lidocaine (PF) 10 mg/mL (1 %) 4 [...] 60 mg (14 sources) Start: 05-21-2025 End: 07-14-2025 lidocaine (PF) 20 mg/mL (2 % ) [...] oral tablet (20 sources) Angiotensin 2 Receptor Tracey Start: 09-03-2021 End: 03-22-2025 take 1 tablet by mouth twice daily Losartan 100 mg tablet Discontinued 100 mg PO TWICE A DAY January 28, 2022 1:49pm March 22, 2025 8:01am bp Start: 05-07-2020 End: 01-28-2022 take 1 tablet by mouth once daily Losartan 100 MG tablet Discontinued 100 mg PO DAILY May 07, 2020 12:00am January 28, 2022 2:03pm bp Start: 12-22-2019 End: 01-12-2020 Losartan 100 MG tablet Disco ntinued 100 mg PO DAILY 07 12December 22, 2019 1:00am January 12, 2020 1:59pm Hold for systolic blood pressure less than 120 mmHg Comment on above: Take 1 tablet by satish th twice daily. Take 1 tablet by satish th two times a day. mecobalamin 1 mg chewable tablet (16 sources) Start: 2 End: 2 take 1 [...] 07, 2020 12:00am May 08, 2020 9:23am pain Start: 12-22-2019 End: 01-12-2020 take 7.5 mg by mouth once daily Meloxicam Discontinued 7.5 mg PO DAILY 0 0 December 22, 2019 8:44am January 12, 2020 1:59pm arthritis Start: 12-20-2019 End: 12-22-2019 Meloxicam Discontinued 15 MG DAILY December 20, 2019 11:39pm December 22, 2019 8:44am Start: 12-20-2019 End: 12-22-2019 Meloxicam Discontinued 15 mg DAILY December 20, 2019 1:00am December 22, 2019 8:44am arthritis Start: 12-20-2019 End: 12-22-2019 Meloxicam Discontinued 15 [...] Follow dosing instru ctions, take with food. nitrofurantoin, macrocrystals 25 mg / nitrofurantoin, monohydrate 75 mg oral capsule (20 sources) Nitrofuran Antibacterial Start: 05-29-20 End: 06-04-20 take 1 capsule by mouth every twelve hours Nitrofurantoin Monohyd/M-Cryst 100 mg capsule Discontinued 100 mg PO EVERY 12 HOURS 10 0 May 29, 2025 12:00am 2025 10:20pm Start: 07-08-2022 End: 07-15-2022 take 1 capsule by mouth twice daily [...] Comment on above: Take 1 capsule by [facility] twice daily with meals for 7 days. pravastatin sodium 40 mg oral tablet (16 sources) HMG-CoA Reductase Inhibitor Start: 3 End: 0 take 1 tablet by mouth once daily Pravastatin 40 MG tablet Discontinued 40 mg PO DAILY September 07, 2013 12:00am January 12, 2020 1:59pm cholesterol sucralfate 1000 mg oral tablet (20 sources) [...] tablet by satish th four times daily. valsartan 160 mg oral tablet (20 sources) Angiotensin 2 Receptor Tracey Start: 5 End: 5 take 2 tablets by mouth once daily Valsartan 160 mg tablet Discontinued 320 mg PO daily July 19, 2025 9:52am July 19, 2025 9:53am Start: 06-12-2025 End: 07-19-2025 take 1 tablet by mouth once daily valsartan (DIOVAN) 160 mg tablet Indications: Essential hypertension Take 1 tablet by mouth once daily. 90 tablet 1 06/12/2025 Active Start: 03-17-2024 End: 07-19-2025 take 1 tablet by mouth once daily Valsartan 320 mg tablet Active 320 mg PO daily 1 0 July 19, 2025 9:52am bp On Hold: MD Ordered Start: 02-11-2024 End: 03-17-2024 valsartan (Diovan) 160 mg ta blet 02/11/2024 Active Comment on above: Take 1 tablet by satish th once daily. vitamin b12 1 mg extended release [...] 07, 2020 12:00am December 05, 2021 3:09pm supplement Comment on above: Take 1 tablet by satish th once daily. Problems Active Problems Problem Classification Problem Date Documented Da te Episodic/Chronic Abdominal pain (1 source) Right lower quadrant pain; Translations: [Right lower quadrant pain] Episodic Anxiety disorders (20 sources) Anxiety; Translations: [Anxiety disorder, unspecified] Onset: 0 03-22-2014 Chronic Bacterial infection; unspecified site (10 sources) Infection due to ESBL Escherichia coli; Translations: [Other bacterial infections of unspecified site] Onset: 5 06-05-2025 Episodic Cardiac dysrhythmias (13 sources) Atrial fibrillation with rapid ventricular response; Translations: [Unspecified atrial fibrillation] Onset: 5 06-06-2025 Chronic Cataract (8 sources) Bilateral pseudophakia; Translations: [Presence of intraocular lens] Onset: 2 10-16-2022 Chronic Chronic kidney disease (20 sources) Chronic kidney disease stage 3A ; Translations: [Stage 3a chronic kidney disease (HCC)] Onset: 3 Chronic Chronic kidney disease (1 source) Chronic kidney disease; Translations: [Stage 3a chronic kidney disease (HCC)] Onset: 3 Chronic obstructive pulmonary disease and bronchiectasis (20 sources) Pulmonary emphysema; Translations: [Emphysema, unspecified] Onset: 5 03-20-2022 Chronic Congestive heart failure; nonhypertensive (20 sources) Chronic diastolic heart failure; Translations: [Chronic diastolic (congestive) heart failure] Onset: 5 Chronic Coronary atherosclerosis and other heart disease (20 sources) History of non-ST segment elevation myocardial infarction; Translations: [Old myocardial infarction] Onset: 0 11-03-2021 Chronic Comment on above: 01/20/2010, 12/21/2019 Coronary atherosclerosis and other heart disease (3 sources) Presence of coronary angioplasty implant and graft; Translations: [Percutaneous transluminal coronary angioplasty status] Onset: 0 01-21-2024 Episodic Deficiency and other anemia (20 sources) Increased [...] 12-21-2023 Episodic Genitourinary symptoms and ill-defined conditions (8 sources) Incontinence; Translations: [Mixed incontinence] Onset: 5 06-12-2025 Chronic Genitourinary symptoms and ill-defined conditions (4 sources) Increased frequency of urination; Translations: [Frequency of micturition] Onset: 5 Episodic Lymphadenitis (1 source) Lymphadenopathy; Translations: [Generalized enlarged lymph nodes] 01-26-2025 Episodic Mood disorders (20 sources) Recurrent major depression in partial remission; Translations: [Major depressive disorder, recurrent, in partial remission] Onset: 6 05-16-2018 Chronic Nonspecific chest pain (20 sources) Chest pain; Translations: [Chest pain, unspecified] Onset: 5 05-06-2023 Episodic Occlusion or stenosis of precerebral arteries (20 sources) Bilateral stenosis of carotid arteries; Translations: [Occlusion and stenosis of bilateral carotid arteries] Onset: 4 12-31-2023 Chronic Osteoarthritis (20 sources) Bilateral arthritis of knees; Translations: [Bilateral primary osteoarthritis of knee] Onset: 6 Chronic Other aftercare (2 sources) penitentiary (current) use of anticoagulants; Translations: [penitentiary (current) use of anticoagulants] Onset: 5 Episodic Other and ill-defined heart disease (16 sources) Left ventricular diastolic dysfunction ; Translations: [...] right hip] 02-07-2025 Episodic Other eye disorders (1 source) Posterior vitreous detachment Onset: 2 10-16-2022 Chronic Other eye disorders (7 sources) Vitreous degeneration, bilateral; Translations: [Vitreous degeneration, bilateral] Onset: 5 Chronic Other gastrointestinal disorders (1 source) Dysphagia; Translations: [Dysphagia, unspecified] 01-10-2025 Episodic Other gastrointestinal disorders (2 sources) Esophageal dysphagia; Translations: [Other dysphagia] 01-16-2025 Episodic Other hematologic conditions (16 sources) Raised cardiac enzyme or marker; Translations: [Other specified abnormalities of plasma proteins] 05-22-2020 Episodic Other infections; including parasitic (10 sources) H/O: infectious disease; Translations: [Personal history of other infectious and parasitic diseases] 2025 Episodic Other infections; including parasitic (1 source) Personal history of other infectious and parasitic diseases; Translations: [Personal history of other infectious and parasitic diseases] Onset: 5 Episodic Other liver diseases (2 sources) Jaundice; Translations: [Unspecified jaundice] 12-21-2023 Episodic Other lower respiratory disease (20 sources) Dyspnea on exertion; Translations: [Dyspnea, unspecified] 02-04-2021 Episodic Other lower respiratory disease (20 sources) Dyspnea; Translations: [Dyspnea, unspecified] 12-13-2021 Episodic [...] conditions (not mental disorders or infectious disease) (20 sources) Elevated C-reactive protein; Translations: [Elevated C-reactive protein (CRP)] Onset: 4 Episodic Other skin disorders (16 sources) Excessive sweating; Translations: [Generalized hyperhidrosis] 02-04-2021 [...] caused by tuberculosis or sexually transmitted disease) (20 sources) Heart valve disorder; Translations: [Endocarditis, valve [...] Pain, unspecified; Translations: [Pain] Onset: 5 Episodic Residual codes; unclassified (1 source) Personal history of other drug therapy; Translations: [Personal history of other drug therapy] Onset: 5 Episodic Respiratory failure; insufficiency; arrest (adult) (10 sources) Acute respiratory failure; Translations: [Acute respiratory failure with hypoxia] 2025 Episodic Retinal detachments; defects; vascular occlusion; and retinopathy (20 sources) Bilateral degeneration of macula; Translations: [Unspecified macular degeneration] Onset: 3 Resolved: 4 Chronic Spondylosis; intervertebral disc disorders; other back problems (20 sources) Degeneration of lumbar intervertebral disc; Translations: [Other intervertebral disc degeneration, lumbar region] Onset: 8 08-16-2019 Chronic Substance-related disorders (20 sources) Smoker; Translations: [Nicotine dependence, unspecified, uncomplicated] Onset: 0 12-03-2021 Chronic Syncope (16 sources) Near syncope; Translations: [Syncope and collapse] 12-13-2021 Episodic Thyroid disorders (20 sources) Acquired hypothyroidism; Translations: [Hypothyroidism, unspecified] Onset: 5 08-02-2015 Chronic Unclassified (1 source) Low back pain, unspecified; Translations: [Low back pain, unspecified] Onset: 4 Unclassified (4 sources) Call office next week to set up an appointment for frequent resistant UTIs Unclassified (1 source) Degeneration of intervertebral disc of lumbar region, unspecified whether pain present; Translations: [Degeneration of intervertebral disc of lumbar region, unspecified whether pain present] Onset: 9 Urinary tract infections (20 sources) Acute urinary tract infection; Translations: [Urinary tract infection, site not specified] Onset: 5 Episodic Past or Other Problems Problem Classification [...] Onset: 08-02-2024 04-28-2024 Episodic Malaise and fatigue (20 sources) Fatigue; Translations: [Other fatigue] Onset: 01-26-2025 [...] (20 sources) Patient encounter status; Translations: [Other usp (current) drug therapy] Onset: 04-02-2015 Episodic Other aftercare (1 source) Other usp (current) drug therapy; Translations: [Medication management] Onset: [...] left hip] Onset: 08-16-2019 03-06-2020 Episodic Other gastrointestinal disorders (1 source) Dysphagia, unspecified; Translations: [Dysphagia, unspecified] Onset: 01-26-2025 Episodic Other infections; including parasitic (20 sources) Personal history of other infectious and parasitic diseases; Translations: [History of COVID-19] Onset: 07-08-2022 07-08-2022 Episodic Other lower respiratory disease (17 sources) Other forms of dyspnea; Translations: [Chronic [...] Test Name Value Interpretation Reference Range Facility Bacteria Ur Culton Bacteria identified Cx Nom (U) ORGANISM ID: 1 >=100,000 CFU/ml Escherichia coli Extended-spectrum beta-lactamase (ESBL) production detected in this isolate. ESBL producing strains are considered resistant to all cephalosporins, penicillins, and aztreonam. ORGANISM ID: 1 (ESCHERICHIA COLI) -- ANTIBIOTIC INTERPRETATION VINCENT STATUS REFERENCE RANGE -- Ampicillin R >=32 F Susceptible <=8 , Intermediate >8 , Resistant >16 Cefazolin R >=64 F Susceptible 0-16 , Intermediate <0 or >16 , Resistant >16 For uncomplicated urinary tract infections, cefazolin results can be used to predict susceptibility or resistance to cephalexin. Ceftriaxone R >=64 F Susceptible <=1 , Intermediate >1 , Resistant >=4 Cefepime R F Ertapenem S <=0.5 F Susceptible <=0.5 , Intermediate >.5 , Resistant >1 Meropenem S <=0.25 F Susceptible <=1 , Intermediate >1 , Resistant >2 Gentamicin R >=16 F Susceptible <=2 , Intermediate >2 , Resistant >=8 Tobramycin R 8 F Susceptible <4 , Intermediate >=4 , Resistant >=8 Amikacin S <=2 F Susceptible <8 , Intermediate >=8 , Resistant >=16 Trimeth sulfameth R >=320 F Susceptible <=40 , Resistant >40 Ciprofloxacin S <=0.25 F Susceptible <0.5 , Intermediate >=.5 , Resistant >=1 Nitrofurantoin S <=16 F Susceptible <=32 , Intermediate >32 , Resistant >64 Abnormal [facility] Comment on above: Performed By: #### 6 30-4 ####[facility] LABCLIA [id number] [address] [place] Basic metabolic 2000 panelon 07-25-2025 Anion gap [Moles/Vol] 18 mmol/L High 8-15 [facility] Comment on above: Order Comment: Speci men Type: BLOOD SPECIMENOrdering Facility: [facility] Address: [address] [place], [place] [address] Performed By: #### 2 132-9, 3016-3, 13094-2 ####[facility] LABCLIA [id number] [address] [address] [place] Calcium [Mass/Vol] 9.3 mg/dL Normal 8.5-10.2 [facility] Comment on above: Order Comment: Speci men Type: BLOOD SPECIMENOrdering Facility: [facility] Address: [address] [place] [address] Performed By: #### 2 132-9, 3016-3, 12386-7 ####[facility] LABCLIA [id number] [place] [id number] [place] Chloride [Moles/Vol] 102 mmol/L Normal 98-107 [facility] Comment on above: Order Comment: Speci men Type: BLOOD SPECIMENOrdering Facility: [facility] Address: [address] [place] [address] Performed By: #### 2 132-9, 3016-3, 76257-3 ####[facility] LABCLIA [id number] [place] [id number] [place] CO2 [Moles/Vol] 19 mmol/L Low 22-30 [facility] Comment on above: Order Comment: Speci men Type: BLOOD SPECIMENOrdering Facility: [facility] Address: [address] [place], [place] [address] Performed By: #### 2 132-9, 3016-3, 46854-5 ####[facility] LABCLIA [id number] [facility] [address] [address] [place] Creatinine [Mass/Vol] 1.50 mg/dL High 0.58-0.96 [facility] Comment on above: Order Comment: Hermelinda peterson Type: BLOOD SPECIMENOrdering Facility: [facility] Address: [address] [place] [address] Performed By: #### 2 132-9, 3016-3, 59413-6 ####[facility] LABCLIA [id number] [place] [id number] [place] eGFRcr SerPlBld CKD-EPI 2020 34 mL/min/1.73m??? Low >=60 [facility] Comment on above: Order Comment: Hermelinda peterson Type: BLOOD SPECIMENOrdering Facility: [facility] Address: [address] [place] [address] Result Comment: Josi mated Glomerular Filtration Rate [...] reflect actual GFR. Performed By: #### 2 132-9, 3016-3, 36042-1 ####[facility] LABCLIA [id number] [place] [id number] [place] Glucose [Mass/Vol] 91 mg/dL Normal 74-99 [facility] Comment on above: Order Comment: Hermelinda peterson Type: BLOOD SPECIMENOrdering Facility: [facility] Address: [address] [place] [address] Result Comment: The [place] Diabetes Association (ADA) provides guidance for cutoff [...] Standards of Medical Care in Diabetes 2016, [place] [employer] Association. Diabetes Care. 2016.39(Suppl 1). Performed By: #### 2 132-9, 3016-3, 02675-2 ####[facility] LABCLIA [id number] [address] [address] [place] Potassium [Moles/Vol] 4.7 mmol/L Normal 3.7-5.1 [facility] Comment on above: Order Comment: Speci men Type: BLOOD SPECIMENOrdering Facility: [facility] Address: [address] [place] [address] Performed By: #### 2 132-9, 3016-3, 30197-0 ####[facility] LABCLIA [id number] [address] [address] [place] Sodium [Moles/Vol] 139 mmol/L Normal 136-144 [facility] Comment on above: Order Comment: Speci men Type: BLOOD SPECIMENOrdering Facility: [facility] Address: [address] [place] [address] Performed By: #### 2 132-9, 3016-3, 17613-8 ####[facility] LABIA [id number] [address] [address] [place] Urea nitrogen [Mass/Vol] 25 mg/dL High 7-21 [facility] Comment on above: Order Comment: Speci men Type: BLOOD SPECIMENOrdering Facility: [facility] Address: [address] [place] [address] Performed By: #### 2 132-9, 3016-3, 37066-2 ####[facility] LABIA [id number] [address] [address] [place] CBC panel Auto (Bld)on 07-25 Erythrocyte distribution width (RBC) [Ratio] 15.9 % High 11.5-15.0 [facility] Comment on above: Order Comment: Speci men Type: BLOOD SPECIMENOrdering Facility: [facility] Address: [address] [place] [address] Performed By: #### 5 8410-2 ####[facility] LABCLIA [id number] [place] [address] [place] Hematocrit (Bld) [Volume fraction] 40.9 % Normal 36.0-46.0 [facility] Comment on above: Order Comment: Speci men Type: BLOOD SPECIMENOrdering Facility: [facility] Address: [address] [place] [address] Performed By: #### 5 8410-2 ####[facility] LABIA [id number] [place] [address] [place] Hemoglobin (Bld) [Mass/Vol] 12.8 g/dL Normal 11.5-15.5 [facility] Comment on above: Order Comment: Speci men Type: BLOOD SPECIMENOrdering Facility: [facility] Address: [address] [place] [address] Performed By: #### 5 8410-2 ####[facility] LABIA [id number] [place] [address] [place] MCH (RBC) [Entitic mass] 27.6 pg Normal 26.0-34.0 [facility] Comment on above: Order Comment: Speci men Type: BLOOD SPECIMENOrdering Facility: [facility] Address: [address] [place] [address] Performed By: #### 5 8410-2 ####[facility] LABCLIA [id number] [place] [address] [place] MCHC (RBC) [Mass/Vol] 31.3 g/dL Normal 30.5-36.0 [facility] Comment on above: Order Comment: Speci men Type: BLOOD SPECIMENOrdering Facility: [facility] Address: [address] [place] [address] Performed By: #### 5 8410-2 ####[facility] LABCLIA [id number] [place] [address] [place] MCV (RBC) [Entitic vol] 88.3 fL Normal 80.0-100.0 [facility] Comment on above: Order Comment: Speci men Type: BLOOD SPECIMENOrdering Facility: [facility] Address: [address] [place] [address] Performed By: #### 5 8410-2 ####[facility] LABIA [id number] [place] [address] [place] Nucleated RBC (Bld) [#/Vol] 10*3/uL Normal <0.01 [facility] Comment on above: Order Comment: Speci men Type: BLOOD SPECIMENOrdering Facility: [facility] Address: [address] [place] [address] Performed By: #### 5 8410-2 ####[facility] LABIA [id number] [address] [place] Platelet mean volume (Bld) [Entitic vol] 10.9 fL Normal 9.0-12.7 [facility] Comment on above: Order Comment: Speci men Type: BLOOD SPECIMENOrdering Facility: [facility] Address: [address] [place] [address] Performed By: #### 5 8410-2 ####[facility] LABIA [id number] [place] [address] [place] Platelets (Bld) [#/Vol] 338 10*3/uL Normal 150-400 [facility] Comment on above: Order Comment: Speci men Type: BLOOD SPECIMENOrdering Facility: [facility] Address: [address] [place] [address] Performed By: #### 5 8410-2 ####[facility] LABCLIA [id number] [place] [id number] [place] RBC (Bld) [#/Vol] 4.63 10*6/uL Normal 3.90-5.20 [facility] Comment on above: Order Comment: Speci men Type: BLOOD SPECIMENOrdering Facility: [facility] Address: [address] [place] [address] Performed By: #### 5 8410-2 ####[facility] LABCLIA [id number] [place] [address] [place] WBC (Bld) [#/Vol] 7.96 10*3/uL Normal 3.70-11.00 [facility] Comment on above: Order Comment: Speci men Type: BLOOD SPECIMENOrdering Facility: [facility] Address: [address] [place] [address] Performed By: #### 5 8410-2 ####[facility] LABCLIA [id number] [address] [place] CNOVon 07-25-2025 [facility] ANNE MARIE GARZA Misty ([id number]) 1940 F Date Time Provider Department 07/25/25 12:20 PM GLORIA CHRIS [facility] During your visit today, we recorded the following information about you: Temperature Pulse Respiration Blood pressure 98.4 degrees 84/minute 16/minute 164/66 Weight 82.9 kg Gloria Chris, [employer] EXCHANGE SPECIALIST 07/25/2025 8:03 PM Signed This is a 85 year old female who presents today with: UTI symptoms HISTORY OF PRESENT ILLNESS: Hematuria: - Large amount of blood noted in urine sample. - No visible blood when wiping, but Pat observed staining on the pad that looked like it (incontinence pad) - No history of nephrolithiasis. Back Pain: - Increased back pain over the last few days. - Previously managed with Celebrex, which was discontinued due to Eliquis initiation. - Using ice for pain relief Recurrent UTIs: - Hospitalized 6 weeks ago for a UTI with concerns of sepsis due to hypotension. 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 Rodriguez, thought to be contaminated and not treated - Scheduled to see a urologist in August for recurrent and resistant UTIs (Dr Mcdonald) - Current symptoms include burning and itching during urination, flank/back pain CKD Stage 3: - Recent GFR was 39 on 07/19 [facility] labs, down from 49-50 - proteinuria present >300 by ua dip AFib: - Diagnosed during recent hospitalization for UTI - Currently managed with Eliquis - Scheduled for a heart catheterization on Wednesday HTN: - Previously on Valsartan 320 mg, reduced to 160 mg, and recently increased back to [address] Salter. - Pat monitors blood pressure at home twice daily. - Heart cath on Wednesday, cardiology involved and to manage hypertensive/cardiac meds PAST MEDICAL HISTORY: PAST MEDICAL HISTORY Diagnosis Date Acquired hypothyroidism [...] hypertension 01/26/2017 Graves disease Heart attack (HCC) [place] stent in heart History of COVID-19 07/08/202205/2022 History of non-ST elevation myocardial infarction (NSTEMI) 01/19/201001/2010 Intradermal nevus 12/30/2014 right inferrior medial breast Keratosis, inflamed seborrheic 12/30/2014 right upper back Left carpal tunnel syndrome 01/04/[address] 12/03/2021 Daughter Truong is DPOA Low vitamin B12 level 04/06/2014 Lumbar radicular pain 05/26/2018 Added automatically from request for surgery [id number] Lump or mass in breast 01/20/2023 Patient declined evaluation with imaging or Tx if it were to be cancer. 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 Normal [facility] HbA1c (Bld)on 07-25-2025 Average glucose Estimated from glycated hemoglobin (Bld) [Mass/Vol] 108 mg/dL Normal [facility] Comment on above: Order Comment: Speci men Type: BLOOD SPECIMENOrdering Facility: [facility] Address: [address] [place] [address] Result Comment: eAG: (Estimated average glucose) is a calculated value from HgbA1c and is community health program representative of the average blood glucose level in the last 2-3 month period. Performed By: #### 5 5454-3 ####[facility] [id number] [place] [address] [place] HbA1c (Bld) [Mass fraction] 5.4 % Normal 4.3-5.6 [facility] Comment on above: Order Comment: Speci men Type: BLOOD SPECIMENOrdering Facility: [facility] Address: [address] [place] [address] Result Comment: [place] Diabetes Association guidelines indicate that patients with HgbA1c in the range 5.7-6.4% are at increased risk for development of diabetes, and intervention by lifestyle modification may be beneficial. HgbA1c greater or equal to 6.5% is considered diagnostic of diabetes. Performed By: #### 5 5454-3 ####[facility] [id number] [place] [address] [place] TSH SerPl-aCncon 07-25-2025 TSH Qn 10.900 m[IU]/L High 0.270-4.200 [facility] Comment on above: Order Comment: Speci men Type: BLOOD SPECIMENOrdering Facility: [facility] Address: [address] [place] [address] Performed By: #### 2 132-9, 3016-3, 63556-7 ####[facility] [id number] [place] [address] [place] Vit B12 SerPl-mCncon 025 Cobalamin (Vitamin B12) [Mass/Vol] 249 pg/mL Normal 232-1245 [facility] Comment on above: Order Comment: Speci men Type: BLOOD SPECIMENOrdering Facility: [facility] Address: [address] [place] [address] Performed By: #### 2 132-9, 3016-3, 51902-7 ####[facility] LABCLIA [id number] [facility] [address] [place] Basic Metabolic Profile (BMP )on 07-19-2025 BUN/CRE 15.8 RATIO Normal 10-20 [facility] Comment on above: Performed By: #### L 300.4310, L300.3900, L100.0100, L500.2500 #### [facility] [address] [place], [address] Calcium [Mass/Vol] 9.1 mg/dL Normal 7.6-11.0 [facility] Comment on above: Performed By: #### L 300.4310, L300.3900, L100.0100, L500.2500 #### [facility] [address] [place], [address] Chloride [Moles/Vol] 103 mmol/L Normal 98-108 [facility] Comment on above: Performed By: #### L 300.4310, L300.3900, L100.0100, L500.2500 #### [facility] [address] [place], [address] CO2 [Moles/Vol] 27.1 mmol/L Normal 21.0-32.0 [facility] Comment on above: Performed By: #### L 300.4310, L300.3900, L100.0100, L500.2500 #### [facility] [address] [place], [address] Creatinine [Mass/Vol] 1.35 mg/dL High 0.70-1.20 [facility] Comment on above: Performed By: #### L 300.4310, L300.3900, L100.0100, L500.2500 #### [facility] [address] [place], [address] GAP 13 Normal 5-15 [facility] Comment on above: Performed By: #### L 300.4310, L300.3900, L100.0100, L500.2500 #### [facility] [address] [place], [address] GFR/1.73 sq M.predicted among non-blacks MDRD (S/P/Bld) [Vol rate/Area] 39 mL/min/{1.73_m2} Low >60 [facility] Comment on above: Result Comment: mL/m in/1.73m2 CKD-EPI Creatinine Equation (2020) Performed By: #### L 300.4310, L300.3900, L100.0100, L500.2500 #### [facility] [address] [place], [address] Glucose [Mass/Vol] 97 mg/dL Normal 70-99 [facility] Comment on above: Performed By: #### L 300.4310, L300.3900, L100.0100, L500.2500 #### [facility] [address] [place], [address] Potassium [Moles/Vol] 4.4 mmol/L Normal 3.3-5.1 [facility] Comment on above: Performed By: #### L 300.4310, L300.3900, L100.0100, L500.2500 #### [facility] [address] [place], [address] Sodium [Moles/Vol] 143 mmol/L Normal 133-145 [facility] Comment on above: Performed By: #### L 300.4310, L300.3900, L100.0100, L500.2500 #### [facility] [address] [place], [address] Urea nitrogen [Mass/Vol] 21 mg/dL High 4-19 [facility] Comment on above: Performed By: #### L 300.4310, L300.3900, L100.0100, L500.2500 #### [facility] [address] [place], [address] CBC W/Diff, Automatedon -11 08-2024 Absolute Lymph 1.30 X10 3/uL Normal 0.83-4.51 [facility] Comment on above: Performed By: #### L 300.4310, L300.3900, L100.0100, L500.2500 #### [facility] [address] [place], [address] Absolute Neut 6.0 X10 3/uL Normal 2.0-7.7 [facility] Comment on above: Performed By: #### L 300.4310, L300.3900, L100.0100, L500.2500 #### [facility] [address] [place], [address] Basophils/100 WBC (Bld) 0.8 % Normal 0-1 [facility] Comment on above: Performed By: #### L 300.4310, L300.3900, L100.0100, L500.2500 #### [facility] [address] [place], [address] Eosinophils/100 WBC (Bld) 3.9 % Normal 0-5 [facility] Comment on above: Performed By: #### L 300.4310, L300.3900, L100.0100, L500.2500 #### [facility] [address] [place], [address] Erythrocyte distribution width (RBC) [Ratio] 15.9 % High 11.6-14.6 [facility] Comment on above: Performed By: #### L 300.4310, L300.3900, L100.0100, L500.2500 #### [facility] [address] [place], [address] Hematocrit (Bld) [Volume fraction] 40.8 % Normal 37-47 [facility] Comment on above: Performed By: #### L 300.4310, L300.3900, L100.0100, L500.2500 #### [facility] [address] [place], [address] Hemoglobin (Bld) [Mass/Vol] 12.9 g/dL Normal 12.0-15.0 [facility] Comment on above: Performed By: #### L 300.4310, L300.3900, L100.0100, L500.2500 #### [facility] [address] [place], [address] IG% 0.200 Normal 0.0-0.9 [facility] Comment on above: Result Comment: IG% - Immature Granulocytes (promyelocytes, myelocytes and metamyelocytes) > 1% indicates that a LEFT SHIFT is Present. Performed By: #### L 300.4310, L300.3900, L100.0100, L500.2500 #### [facility] [address] [place], [address] Lymphocytes/100 WBC (Bld) 15.6 % Low 19-41 [facility] Comment on above: Performed By: #### L 300.4310, L300.3900, L100.0100, L500.2500 #### [facility] [address] [place], [address] MCH (RBC) [Entitic mass] 27.7 pg Normal 27.0-32.0 [facility] Comment on above: Performed By: #### L 300.4310, L300.3900, L100.0100, L500.2500 #### [facility] [address] [place], [address] MCHC (RBC) [Mass/Vol] 31.6 g/dL Low 32-36 [facility] Comment on above: Performed By: #### L 300.4310, L300.3900, L100.0100, L500.2500 #### [facility] [address] [place], [address] MCV (RBC) [Entitic vol] 87.7 fL Normal 81-99 [facility] Comment on above: Performed By: #### L 300.4310, L300.3900, L100.0100, L500.2500 #### [facility] [address] [place], [address] Monocytes/100 WBC (Bld) 8.1 % Normal 0-10 [facility] Comment on above: Performed By: #### L 300.4310, L300.3900, L100.0100, L500.2500 #### [facility] [address] [place], [address] Neutrophils/100 WBC (Bld) 71.4 % High 47-70 [facility] Comment on above: Performed By: #### L 300.4310, L300.3900, L100.0100, L500.2500 #### [facility] [address] [place], [address] Nucleated RBC (Bld) [#/Vol] 0 10*3/uL Normal 0-5 [facility] Comment on above: Performed By: #### L 300.4310, L300.3900, L100.0100, L500.2500 #### [facility] [address] [place], [address] Platelet mean volume (Bld) [Entitic vol] 10.5 fL Normal 6.2-12.0 [facility] Comment on above: Performed By: #### L 300.4310, L300.3900, L100.0100, L500.2500 #### [facility] [address] [place], [address] Platelets (Bld) [#/Vol] 363 10*3/uL Normal 150-450 [facility] Comment on above: Performed By: #### L 300.4310, L300.3900, L100.0100, L500.2500 #### [facility] [address] [place], [address] RBC (Bld) [#/Vol] 4.65 10*6/uL Normal 4.2-5.[address] [facility] Comment on above: Performed By: #### L 300.4310, L300.3900, L100.0100, L500.2500 #### [facility] [address] [place], [address] RDW SD 51.2 fl High 35.1-43.9 [facility] Comment on above: Performed By: #### L 300.4310, L300.3900, L100.0100, L500.2500 #### [facility] [address] [place], [address] WBC (Bld) [#/Vol] 8.4 10*3/uL Normal 4.4-11.0 [facility] Comment on above: Performed By: #### L 300.4310, L300.3900, L100.0100, L500.2500 #### [facility] [address] [place], [address] Cardiology Visit Reporton Cardiology Visit Report [facility] [address] [place] [address] OFFICE VISIT Date of Service: 07/19/25 MR#: [id number] Acct: [id number] Name: ANNE MARIE GARZA Rep #: [id number] : 1940 Provider: RE Fowler Age/Sex: 85/F Location: [facility] Status: Signed HPI HPI History of Present Illness Details: Anne Marie Garza is an 84-year-old female who was admitted to [facility] on December 21, 2019 for a non-ST myocardial infarction. Troponin was elevated to 0.881. She does have a history of previous coronary artery disease with stenting to her RCA. Heart catheterization during hospital stay demonstrated a 95% lesion to her circumflex this was stented. She also has a history of hypertension and hyperlipidemia.Patient was seen in the emergency room on May 26, 2025 for chest discomfort. Troponins were negative. She was asked to follow-up with us in our office to further discuss outpatient workup. Echocardiogram in 2024 demonstrated mild left ventricular hypertrophy with an ejection fraction of 59%. Stage I diastolic dysfunction. Left atrial cavity mildly dilated. Stress test in January 2025 was negative for ischemia. In March we had decreased her metoprolol. At her office visit on May 30, 2025 with her increased shortness of breath she was being scheduled for a left heart cath to further evaluate her worsening shortness of breath. We were also holding her blood pressure medication due to her significant low blood pressure readings. She had called our office after a few days and was still having low readings that were less than 100 systolically. She was asked to present to the emergency room. She was evaluated there and was admitted for hypotension. She was noted to have a UTI. During her hospitalization she was also noted to have atrial fibrillation with RVR. Patient was started on amiodarone 3 tablets a day for 1 week and then transition to 1 tablet twice a day for 1 week then to once a day. She was also discharged home on Eliquis. Patient had a 48-hour Holter monitor done in June 2025. This demonstrated an average heart rate of 54 bpm in sinus rhythm, minimum heart rate 46 bpm sinus bradycardia, maximum heart rate 86 bpm in sinus rhythm. There is no atrial fibrillation noted. Pt notes that she is still SOB with anything. She does get SOB with almost any activity. She does not have any chest heaviness/tightness. She has noted some palpitations a few weeks ago. This las yuli maybe 15 minutes. She does have postional dizziness. She is having issues with balance. Intake Vital Signs 05/30/25 13:16 06/07/25 14:12 07/19/25 09:03 Height 5 ft 4 in 5 ft 4 in 5 ft 4 in Weight: 183 lb BMI 31.4 BP 166/79 H Blood Pressure Location Lt brachial Position Sitting Respiration 16 Pulse 62 Pulse Source NIBP Intake Visit Reasons: 1 M FU Pre Coder Required: No Is patient in pain?: No Allergies iodine Allergy (Severe, Verified 07/19/25 09:12) Angioedema guaifenesin (From Mucinex) Allergy (Mild, Verified 07/19/25 09:12) Other ticagrelor (From Brilinta) Adverse Reaction (Severe, Verified 07/19/25 09:12) Shortness of breath varenicline (From Chantix) Adverse Reaction (Severe, Verified 07/19/25 09:12) Other Medications ???Medication ???Instructions ???Recorded ???Confirmed ???Type aspirin 81 mg chewable tablet 81 mg PO DAILY@0800 heart health 0 05/07/20 07/19/25 History rosuvastatin 5 mg tablet 5 mg PO DAILY cholesterol 05/07/20 07/19/25 History omeprazole 40 mg capsule,delayed 40 mg PO BID stomach 01/29/2207/09 History release celecoxib 200 mg capsule (Celebrex) 200 mg PO BID mood 01/21/24 History Held on 06/06/25. Instructions: I would recommend holding this while you are on blood thinners to prevent GI bleed duloxetine 30 mg capsule,delayed 30 mg PO QDAY mood 03/22/25 History release amlodipine 10 mg tablet 10 mg PO QDAY bp 05/30/25 06/04/25 History Held on 06/06/25. Instructions: until told to restart levothyroxine 137 mcg tablet 137 mcg PO MOTUWETHFR thyroid 05/0907/19/25 History (Levoxyl) levothyroxine 137 mcg tablet 68.5 mcg PO SA thyroid 05/30/25 History (Synthroid) apixaban 5 mg tablet (Eliquis) 5 mg PO BID #60 tabs 06/19/2507/09 Rx metoprolol succinate 25 mg 25 mg PO DAILY heart #90 tabs 06/0807/19/25 Rx tablet,extended release 24 hr amiodarone 200 mg tablet 200 mg PO DAILY #30 tabs 06/25/25 07/19/25 Rx tramadol 50 mg tablet 50 mg PO Q8H PRN Pain Score 1-10 0 07/19/25 07/19/25 History valsartan 320 mg tablet 320 mg PO QDAY bp #1 TAB 07/19/25 07/19/25 Rx Held on 06/04/25. Instructions: Ordered Ejection fraction %: 59 Have you fallen in the past year?: (more content not included)... Normal [facility] Partial Thromboplast Timeon 07-19-2025 aPTT Coag (Bld) [Time] 29.4 s Normal 24.1-36.2 [facility] Comment on above: Performed By: #### L 300.4310, L300.3900, L100.0100, L500.2500 #### [facility] [address] [place], [address] Prothrombin Time w/INRon INR Coag (PPP) [Relative time] 1.3 {INR} Normal [facility] Comment on above: Performed By: #### L 300.4310, L300.3900, L100.0100, L500.2500 #### [facility] [address] [place], [address] PT Coag (PPP) [Time] 16.2 s High 11.7-14.9 [facility] Comment on above: Performed By: #### L 300.4310, L300.3900, L100.0100, L500.2500 #### [facility] [address] [place], [address] Bacteria Ur Culton 5 Bacteria identified Cx Nom (U) ORGANISM ID: 1 >=100,000 CFU/ml Mixed microbiota No further workup. Mixed microbiota can be due to???urine???contamina tion with skin bacteria at time of collection or presence of a long-term urinary catheter. If a new culture is needed, please consider re-education of the patient on proper midstream collection technique or straight catheterization for???urine???collecti on. Normal [facility] Comment on above: Performed By: #### 6 30-4 ####[facility] ARLIN [id number] [address] [place] [facility] CNOVon 06-12-2025 CNOV Office Visit (FAMPWS ) ANNE MARIE GARZA ([id number]) 1940 F Date Time Provider Department 06/12/25 11:00 AM [facility]IGUEZ [facility] During your visit today, we recorded the following information about you: Pulse Respiration Blood pressure Weight 60/minute 18/minute 183/68 82.5 kg Max Rodriguez MD 06/12/2025 12:09 PM Signed Chief Complaint Patient presents with: Hospital Follow Up HPI Anne Marie Garza is a 85 year old female who presents here today for a Hospital follow up. Here today with Daughter. Pt presented to [facility] ED on 06/04/25 for hypotension. Patient was seen outpatient by her Director Of Rehabilitation and advised to hold her BP medications due to low BP. Was advised by Cardiology if BP was 80/50 to present to the ED. Was dx with afib during admission. Was originally scheduled for heart cath on 06/18/25 but this has been cancelled. During admission patient continued to have UTI on testing. Pt was previously treated during [facility] ED visit on 05/26/25 due to UTI findings. Received Rocephin during hospital visit and d/c home with Cefdinir 300 mg bid for 1 week Due to cultures, she was resistant and was changed to Macrobid 100 mg bid. Patient did note she has recurrent UTI's. On most recent d/c patient was advised to f/u with Urology due to recurrent UTI's and resistance to abx medication. [facility] Admission: Date of Admission: 06/04/25 Date of Discharge: 06/06/25 Discharge Diagnosis (1) Infection due to ESBL-producing Escherichia coli: Status: Acute Code(s): A49.8 - Other bacterial infections of unspecified site; Z16.12 - Extended spectrum beta lactamase (ESBL) resistance Hospital Course: Mrs. 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 The patient was being seen in the outpatient office and followed up by cardiology. They had altered her antihypertensive medicines due to low blood pressure. She followed up on the day of admission with a blood pressure of 80/50 and was told by the ball maker office to come to the emergency department for further evaluation. She was recently diagnosed with urinary tract infection and given antibiotics but antibiotics as an outpatient had been changed due to ESBL E. coli being found. Is unclear what antibiotic she was on for this. Patient does states she does get quite frequent UTIs and does not follow-up with urology. Patient denies dysuria but states her urine is frothy and she has had frequency. The patient was in the emergency department and after her treat with meropenem she was ambulating and felt dyspneic and was found to be mildly hypoxic. Given this she was admitted for treatment of her UTI with antibiotics and monitoring her oxygen levels. She did not require oxygen during hospitalization. ID was consulted given an ESBL organism and she was maintained on meropenem and received a total of 3 days treatment with a dose of ertapenem 1 g prior to discharge. This was under the direction of infectious disease. She was ambulating around the room without any dyspnea and all of a sudden developed dyspnea. On the monitor she was noted to be in A-fib with RVR having heart rates between 150 and 160. I highly suspect this is the etiology of her intermittent shortness of breath as an outpatient. She has had a fairly extensive workup from pulmonology and cardiology and never found to have any arrhythmias. In fact, she was scheduled for cardiac catheterization on the . She was given amiodarone bolus of 150 and converted back to normal sinus rhythm. We placed her on Eliquis 5 mg p.o. twice daily and explained the reason for this being her risk of stroke. Her ZSL0ST4-MXDd 2 score is 5 giving her a 10% risk of stroke/TIA/systemic embolism per year. Her home beta-tracey was reinitiated and we continue to hold her valsartan and amlodipine. She was started on amiodarone oral and she will get 200 mg 3 times daily for 1 week then 200 mg 2 times daily x 1 week then 200 mg daily. Her TSH is within normal limits and liver functions were normal at the time of initiation of amiodarone. I did notify Dr. Rasmussen, her ball maker that we did this she has follow-up tomorrow in the ball maker office. I also did order a 48-hour Holter monitor on her for assessment of her cardiac rhythm. Given her frequent UTIs have also requested she contact Dr. Fuentes's office next week to set an appointment to be evaluated further. She was seen by physical therapy given weakness on presentation and did very well with no need of ongoing therapy services at time of discharge. Patient was discharged home in stable condition after her last dose of ertapenem on 06/06/2025. Prescriptions were sent to her local pharmacy. Labs: 06/04/25 19 (more content not included)... Normal [facility] Culture, Blood (WB)on 2024 CUB Blood cultures x2, from two different sites No growth in 5 days. Normal [facility] Comment on above: Performed By: #### L 300.4310, L300.3900, L100.0100, L500.2500 #### [facility] [address] [place], [place], [address] Cardiology Visit Reporton Cardiology Visit Report [facility] [address] [place] [address] OFFICE VISIT Date of Service: 06/07/25 MR#: [id number] Acct: [id number] Name: ANNE MARIE GARZA Rep #: [id number] : 1940 Provider: RE Fowler Age/Sex: 85/F Location: [facility] [place] Status: Signed HPI HPI History of Present Illness Details: Anne Marie Garza is an 84-year-old female who was admitted to [facility] on December 21, 2019 for a non-ST myocardial infarction. Troponin was elevated to 0.881. She does have a history of previous coronary artery disease with stenting to her RCA. Heart catheterization during hospital stay demonstrated a 95% lesion to her circumflex this was stented. She also has a history of hypertension and hyperlipidemia.Patient was seen in the emergency room on May 26, 2025 for chest discomfort. Troponins were negative. She was asked to follow-up with us in our office to further discuss outpatient workup. Echocardiogram in 2024 demonstrated mild left ventricular hypertrophy with an ejection fraction of 59%. Stage I diastolic dysfunction. Left atrial cavity mildly dilated. Stress test in January 2025 was negative for ischemia. In March we had decreased her metoprolol. This did not make a difference. She tells me PCP ordered a calcium score, this was elevated. Pt notes that her SOB is worse than before. She feels that it has worsened. She is on Celebrex for her joint aches. She is also on ASA. She is no longer smoking but she is chewing nicotine gum non stop. At her office visit on May 30, 2025 with her increased shortness of breath she was being scheduled for a left and right heart cath to further evaluate her worsening shortness of breath. We were also holding her blood pressure medication due to her significant low blood pressure readings. She had called our office after a few days and was still having low readings that were less than 100 systolically. She was asked to present to the emergency room. She was evaluated there and was admitted for hypotension. She was noted to have a UTI. During her hospitalization she was also noted to have atrial fibrillation with RVR. Patient was started on amiodarone 3 tablets a day for 1 week and then transition to 1 tablet 4 twice a day for 1 week then to once a day. She was also discharged home on Eliquis. She presents here today stating that she does feel short of breath however she does feel better since she was in the hospital. She still does have fatigue. She does still feel her heart racing at times.She is in the process of being scheduled for a 48-hour Holter monitor to assess overall rate and rhythm. Intake Vital Signs 06/06/25 13:51 06/07/25 14:12 Height 5 ft 4 in 5 ft 4 in Weight: 180 lb BMI 30.9 BP 104/71 Blood Pressure Location Lt brachial Position Sitting Respiration 16 Pulse 150 H Pulse Source NIBP Intake Visit Reasons: S/P [facility] 06/06 Dyspnea on Exertion Pre Coder Required: No Is patient in pain?: No Allergies iodine Allergy (Severe, Verified 06/07/25 14:18) Angioedema guaifenesin (From Mucinex) Allergy (Mild, Verified 06/07/25 14:18) Other ticagrelor (From Brilinta) Adverse Reaction (Severe, Verified 06/07/25 14:18) Shortness of breath varenicline (From Chantix) Adverse Reaction (Severe, Verified 06/07/25 14:18) Other Medications ???Medication ???Instructions ???Recorded ???Confirmed ???Type aspirin 81 mg chewable tablet 81 mg PO DAILY@0800 heart health 0 05/07/20 06/07/25 History rosuvastatin 5 mg tablet 5 mg PO DAILY cholesterol 05/07/20 06/07/25 History omeprazole 40 mg capsule,delayed 40 mg PO BID stomach 01/29/2205/10 History release celecoxib 200 mg capsule (Celebrex) 200 mg PO BID mood 01/21/24 History Held on 06/06/25. Instructions: I would recommend holding this while you are on blood thinners to prevent GI bleed duloxetine 30 mg capsule,delayed 30 mg PO QDAY mood 03/22/25 History release metoprolol succinate 50 mg 50 mg PO DAILY heart #90 tabs 03/0806/07/25 Rx tablet,extended release 24 hr tramadol 50 mg tablet 50 mg PO Q12H Pain Score 1-10 03/0806/07/25 History valsartan 320 mg tablet 320 mg PO QDAY bp 03/22/25 5 History Held on 06/06/25. Instructions: Until told to restart amlodipine 10 mg tablet 10 mg PO QDAY bp 05/30/25 06/04/25 History Held on 06/06/25. Instructions: until told to restart levothyroxine 137 mcg tablet 137 mcg PO MOTUWETHFR thyroid 05/0906/07/25 History (Levoxyl) levothyroxine 137 mcg tablet 68.5 mcg PO SA thyroid 05/30/25 History (Synthroid) amiodarone 200 mg tablet 200 mg PO DAILY #30 tabs 06/19/25 Rx apixaban 5 mg tablet (Eliquis) 5 mg PO BID #60 tabs 06/19/25 Rx (more content not included)... Normal [facility] 12 Lead EKGon 06-06-2025 12 Lead EKG [facility] [address] [place] [address] 12 Lead EKG 06/07/25 1430 MR#: [id number] Acct: [id number] Name: ANNE MARIE GARZA Rep #: [id number] : 1940 85 From: Emmett Rasmussen MD Attending Dr: Dr. Massiel De La Cruz DO Status: DIS I N Ordering Dr: Massiel De La Cruz DO Date: 06/06/25 Location: [facility] Sex: F C Admitted: 06/04/25 Test Reason : AF Blood Pressure : */* mmHG Vent. Rate : 133 BPM Atrial Rate : * BPM P-R Int : * ms QRS Dur : 72 ms QT Int : 322 ms P-R-T Axes : * 49 29 degrees QTcB Int : 479 ms Atrial fibrillation with rapid ventricular response with premature ventricular or aberrantly conducted complexes Nonspecific ST and T wave abnormality Abnormal ECG When compared with ECG of 06-Jun-2025 14:21, Atrial fibrillation has replaced Sinus rhythm Vent. rate has increased by 60 bpm Non-specific change in ST segment in Inferior leads Confirmed by EMMETT RASMUSSEN MD ([id number]), editor book NEETU GAGE ([id number]) on 06/08/2025 10:57:49 AM Referred By: Confirmed By: EMMETT RASMUSSEN MD 06/08/25 105 Date Emmett Rasmussen MD CC: Dr. Max Rodriguez MD; Dr. Massiel De La Cruz DO Signed [facility] 12 Lead EKG [facility] [address] [place] [address] 12 Lead EKG 06/06/25 1307 MR#: [id number] Acct: [id number] Name: ANNE MARIE GARZA Rep #: [id number] : 1940 85 From: Emmett Rasmussen MD Attending Dr: Dr. Massiel De La Cruz DO Status: DIS I N Ordering Dr: Massiel De La Cruz DO Date: 06/06/25 Location: [facility] Sex: F C Admitted: 06/04/25 Test Reason : SVT Blood Pressure : */* mmHG Vent. Rate : 135 BPM Atrial Rate : * BPM P-R Int : * ms QRS Dur : 76 ms QT Int : 310 ms P-R-T Axes : * 37 58 degrees QTcB Int : 465 ms Atrial fibrillation with rapid ventricular response Nonspecific ST and T wave abnormality Abnormal ECG When compared with ECG of 04-Jun-2025 18:36, Atrial fibrillation has replaced Sinus rhythm Confirmed by EMMETT RASMUSSEN MD ([id number]), editor book SAVANNAH ZALDIVAR ([id number]) on 06/07/2025 8:44:15 AM Referred By: Confirmed By: EMMETT RASMUSSEN MD 06/07/25 0844 Date Emmett Rasmussen MD CC: Dr. Max Rodriguez MD; Dr. Massiel De La Cruz DO Signed Normal [facility] Anion gap in Serum or Plasma Ordered By: Massiel De La Cruz on 06-06-2025 Anion gap [Moles/Vol] 10 mmol/L 5-15 [facility] BUN/creatinine ratioOrdered By: Massiel De La Cruz on 06-06-2025 Urea nitrogen/Creatinine [Mass ratio] 15.6 mg/mg 10-20 [facility] Bilirubin, totalOrdered By: Massiel De La Cruz on 06-06-2025 Bilirubin [Mass/Vol] 0.33 mg/dL 0.00-1.30 [facility] CBC-Complete Blood Cnt No Di ffon 06-06-2025 Erythrocyte distribution width (RBC) [Ratio] 14.6 % Normal 11.6-14.6 [facility] Comment on above: Performed By: #### L 503.0145, L100.0100, L500.2500 #### [facility] [address] [place], [address] Hematocrit (Bld) [Volume fraction] 34.3 % Low 37-47 [facility] Comment on above: Performed By: #### L 503.7505, L100.0100, L500.2500 #### [facility] [address] [place], [address] Hemoglobin (Bld) [Mass/Vol] 11.3 g/dL Low 12.0-15.0 [facility] Comment on above: Performed By: #### L 503.7505, L100.0100, L500.2500 #### [facility] [address] [place], [address] MCH (RBC) [Entitic mass] 28.0 pg Normal 27.0-32.0 [facility] Comment on above: Performed By: #### L 503.7505, L100.0100, L500.2500 #### [facility] [address] [place], [address] MCHC (RBC) [Mass/Vol] 32.9 g/dL Normal 32-36 [facility] Comment on above: Performed By: #### L 503.7505, L100.0100, L500.2500 #### [facility] [address] [place], [address] MCV (RBC) [Entitic vol] 85.1 fL Normal 81-99 [facility] Comment on above: Performed By: #### L 503.7505, L100.0100, L500.2500 #### [facility] [address] [place], [address] Platelet mean volume (Bld) [Entitic vol] 10.0 fL Normal 6.2-12.0 [facility] Comment on above: Performed By: #### L 503.7505, L100.0100, L500.2500 #### [facility] [address] [place], [address] Platelets (Bld) [#/Vol] 314 10*3/uL Normal 150-450 [facility] Comment on above: Performed By: #### L 503.7505, L100.0100, L500.2500 #### [facility] [address] [place], [address] RBC (Bld) [#/Vol] 4.03 10*6/uL Low 4.2-5.[address] [facility] Comment on above: Performed By: #### L 503.7505, L100.0100, L500.2500 #### [facility] [address] [place], [address] RDW SD 45.5 fl High 35.1-43.9 [facility] Comment on above: Performed By: #### L 503.7505, L100.0100, L500.2500 #### [facility] [address] [place], [address] WBC (Bld) [#/Vol] 8.8 10*3/uL Normal 4.4-11.0 [facility] Comment on above: Performed By: #### L 503.7505, L100.0100, L500.2500 #### [facility] [address] [place], [address] Carbon dioxide, total [Moles /volume] in Central venous bloodOrdered By: Massiel De La Cruz on 06-06-2025 CO2 [Moles/Vol] 24.6 mmol/L 21.0-32.0 [facility] Chloride assayOrdered By: Humble De La Cruz on 06-06-2025 Chloride [Moles/Vol] 107 mmol/L 98-108 [facility] Comprehensive Metabolic Prof ilon 06-06-2025 Albumin [Mass/Vol] 3.0 g/dL Low 3.4-4.8 [facility] Comment on above: Performed By: #### L 503.7505, L100.0100, L500.2500 #### [facility] [address] [place], [address] Albumin/Globulin [Mass ratio] 1.1 {ratio} Normal 0.9-2.4 [facility] Comment on above: Performed By: #### L 503.7505, L100.0100, L500.2500 #### [facility] [address] [place], [address] ALK PHOS 69 U/L Normal 35-104 [facility] Comment on above: Performed By: #### L 503.7505, L100.0100, L500.2500 #### [facility] [address] [place], [address] ALT [Catalytic activity/Vol] 18 U/L Normal <=34 [facility] Comment on above: Performed By: #### L 503.7505, L100.0100, L500.2500 #### [facility] [address] [place], [address] AST [Catalytic activity/Vol] 19 U/L Normal <=31 [facility] Comment on above: Result Comment: Hemo lysis present, Results??could be affected. ?? Performed By: #### L 503.7505, L100.0100, L500.2500 #### [facility] [address] [place], [address] Bilirubin [Mass/Vol] 0.33 mg/dL Normal 0.00-1.30 [facility] Comment on above: Performed By: #### L 503.7505, L100.0100, L500.2500 #### [facility] [address] [place], [address] BUN/CRE 15.6 RATIO Normal 10-20 [facility] Comment on above: Performed By: #### L 503.7505, L100.0100, L500.2500 #### [facility] [address] [place], [address] Calcium [Mass/Vol] 8.7 mg/dL Normal 7.6-11.0 [facility] Comment on above: Performed By: #### L 503.7505, L100.0100, L500.2500 #### [facility] [address] [place], [address] Chloride [Moles/Vol] 107 mmol/L Normal 98-108 [facility] Comment on above: Performed By: #### L 503.7505, L100.0100, L500.2500 #### [facility] [address] [place], [address] CO2 [Moles/Vol] 24.6 mmol/L Normal 21.0-32.0 [facility] Comment on above: Performed By: #### L 503.7505, L100.0100, L500.2500 #### [facility] [address] [place], [address] Creatinine [Mass/Vol] 1.13 mg/dL Normal 0.70-1.20 [facility] Comment on above: Performed By: #### L 503.7505, L100.0100, L500.2500 #### [facility] [address] [place], [address] ECRCL 38.52 ml/min Low 50-250 [facility] Comment on above: Performed By: #### L 503.7505, L100.0100, L500.2500 #### [facility] [address] [place], [address] GAP 10 Normal 5-15 [facility] Comment on above: Performed By: #### L 503.7505, L100.0100, L500.2500 #### [facility] [address] [place], [address] GFR/1.73 sq M.predicted among non-blacks MDRD (S/P/Bld) [Vol rate/Area] 48 mL/min/{1.73_m2} Low >60 [facility] Comment on above: Result Comment: mL/m in/1.73m2 CKD-EPI Creatinine Equation (2020) Performed By: #### L 503.7505, L100.0100, L500.2500 #### [facility] [address] [place], [address] Globulin (S) [Mass/Vol] 2.8 g/dL Normal 2.2-4.2 [facility] Comment on above: Performed By: #### L 503.7505, L100.0100, L500.2500 #### [facility] [address] [place], [address] Glucose [Mass/Vol] 100 mg/dL High 70-99 [facility] Comment on above: Performed By: #### L 503.7505, L100.0100, L500.2500 #### [facility] [address] [place], [address] Potassium [Moles/Vol] 4.4 mmol/L Normal 3.3-5.1 [facility] Comment on above: Result Comment: Hemo lysis present, Results??could be affected. ?? Performed By: #### L 503.7505, L100.0100, L500.2500 #### [facility] [address] [place], [address] Sodium [Moles/Vol] 141 mmol/L Normal 133-145 [facility] Comment on above: Performed By: #### L 503.7505, L100.0100, L500.2500 #### [facility] [address] [place], [address] T PROT 5.8 g/dL Low 5.9-8.4 [facility] Comment on above: Performed By: #### L 503.7505, L100.0100, L500.2500 #### [facility] [address] [place], [address] Urea nitrogen [Mass/Vol] 18 mg/dL Normal 4-19 [facility] Comment on above: Performed By: #### L 503.7505, L100.0100, L500.2500 #### [facility] [address] [place], [address] Erythrocyte distribution wid th ratioOrdered By: Massiel De La Cruz on 06-06-2025 Erythrocyte distribution width (RBC) [Ratio] 14.6 % 11.6-14.6 [facility] Erythrocyte distribution wid th standard deviationOrdered By: Massiel De La Cruz on 06-06-2025 Erythrocyte distribution width (RBC) [Ratio] 45.5 fl High 35.1-43.9 [facility] Glomerular filtration rate ( GFR) estimation/1.73 sq m using serum, plasma, or whole bOrdered By: Massiel De La Cruz on 06-06-2025 GFR/1.73 sq M.predicted among non-blacks MDRD (S/P/Bld) [Vol rate/Area] 48 mL/min/{1.73_m2} Low >60 [facility] Comment on above: mL/min/1.73m2 CKD-EP I Creatinine Equation (2020) Hematocrit Auto (Bld) [Volum e fraction]Ordered By: Massiel De La Cruz on 06-06-2025 Hematocrit (Bld) [Volume fraction] 34.3 % Low 37-47 [facility] Hemoglobin measurementOrdere d By: Massiel De La Cruz on 06-06-2025 Hemoglobin (Bld) [Mass/Vol] 11.3 g/dL Low 12.0-15.0 [facility] - Chemistry and C hemistry - challengeOrdered By: Massiel De La Cruz on 06-06-2025 AST [Catalytic activity/Vol] 19 U/L <32 [facility] Comment on above: Hemolysis present, R esults could be affected. MCV (mean corpuscular volume ) determinationOrdered By: Massiel De La Cruz on 06-06-2025 MCV (RBC) [Entitic vol] 85.1 fL 81-99 [facility] Magnesiumon 06-06-2025 Magnesium [Mass/Vol] 1.7 mg/dL Normal 1.5-2.2 [facility] Comment on above: Performed By: #### L 300.4310, L300.3900, L100.0100, L500.2500 #### [facility] [address] [place], [address] Magnesium measurement (mass/ volume)Ordered By: Massiel De La Cruz on 06-06-2025 Magnesium (Unsp spec) [Mass/Vol] 1.7 mg/dL 1.5-2.2 [facility] Mean corpuscular hemoglobin (MCH) determinationOrdered By: Massiel De La Cruz on 06-06-2025 MCH (RBC) [Entitic mass] 28.0 pg 27.0-32.0 [facility] Mean corpuscular hemoglobin concentration (MCHC) determinationOrdered By: Massiel De La Cruz on 06-06-2025 MCHC (RBC) [Mass/Vol] 32.9 g/dL 32-36 [facility] Mean platelet volume determi nationOrdered By: Massiel De La Cruz on 06-06-2025 Platelet mean volume (Bld) [Entitic vol] 10.0 fL 6.2-12.0 [facility] Phosphoruson 06-06-2025 Phosphate [Mass/Vol] 3.7 mg/dL Normal 2.7-4.5 [facility] Comment on above: Performed By: #### L 503.7505, L100.0100, L500.2500 #### [facility] [address] [place], [address] Platelet countOrdered By: Humble De La Cruz on 06-06-2025 Platelets (Bld) [#/Vol] 314 10*3/uL 150-450 [facility] Potassium measurement (mass/ volume)Ordered By: Massiel De La Cruz on 06-06-2025 Potassium (Unsp spec) [Mass/Vol] 4.4 mmol/L 3.3-5.1 [facility] Comment on above: Hemolysis present, R esults could be affected. RBC Auto (Bld) [#/Vol]Ordere d By: Massiel De La Cruz on 06-06-2025 RBC (Bld) [#/Vol] 4.03 10*6/uL Low 4.2-5.[address] [facility] Serum creatinine measurement (mass/volume)Ordered By: Massiel De La Cruz on 06-06-2025 Creatinine [Mass/Vol] 1.13 mg/dL 0.70-1.20 [facility] Serum globulin measurementOr dered By: Massiel De La Cruz on 06-06-2025 Globulin (S) [Mass/Vol] 2.8 g/dL 2.2-4.2 [facility] Serum glucose measurement (m ass/volume)Ordered By: Massiel De La Cruz on 06-06-2025 Glucose [Mass/Vol] 100 mg/dL High 70-99 [facility] Serum or plasma alanine balderas otransferase (ALT) measurementOrdered By: Massiel De La Cruz on 06-06-2025 ALT [Catalytic activity/Vol] 18 U/L <35 [facility] Serum or plasma albumin ajit urement (mass/volume)Ordered By: Massiel De La Cruz on 06-06-2025 Albumin [Mass/Vol] 3.0 g/dL Low 3.4-4.8 [facility] Serum or plasma albumin/glob ulin mass ratioOrdered By: Massiel De La Cruz on 06-06-2025 Albumin/Globulin [Mass ratio] 1.1 {ratio} 0.9-2.4 [facility] Serum or plasma alkaline victorino sphatase measurementOrdered By: Massiel De La Cruz on 06-06-2025 ALP [Catalytic activity/Vol] 69 U/L 35-104 [facility] Serum or plasma calcium ajit urement (mass/volume)Ordered By: Massiel De La Cruz on 06-06-2025 Calcium [Mass/Vol] 8.7 mg/dL 7.6-11.0 [facility] Serum or plasma urea nitroge n measurement (mass/volume)Ordered By: Massiel De La Cruz on 06-06-2025 Urea nitrogen [Mass/Vol] 18 mg/dL 4-19 [facility] Sodium levelOrdered By: Karuna De La Cruz on 06-06-2025 Sodium [Moles/Vol] 141 mmol/L 133-145 [facility] Total proteinOrdered By: Katina De La Cruz on 06-06-2025 Protein [Mass/Vol] 5.8 g/dL Low 5.9-8.4 [facility] Urine Cultureon 06-06-2025 URC Mixed Gram Pos Gram Neg Org Parsons Count 80,000-100,000 [facility] Mixed contaminants. Submit a new specimen if indicated. Normal [facility] Comment on above: Performed By: #### L 503.7505, L100.0100, L500.2500 #### [facility] [address] [place], [address] White blood cell (WBC) count Ordered By: Massiel De La Cruz on 06-06-2025 WBC (Bld) [#/Vol] 8.8 10*3/uL 4.4-11.0 [facility] Absolute lymphocyte countOrd ered By: Antonio Daly on 06-05-2025 Lymphocytes Auto (Unsp spec) [#/Vol] 1.55 10*3/uL 0.83-4.51 [facility] Absolute neutrophil countOrd ered By: Antonio Daly on 06-05-2025 Neutrophils (Bld) [#/Vol] 4.5 10*3/uL 2.0-7.7 [facility] Automated lymphocyte count a s percentage of total leukocytesOrdered By: Antonio Daly on 06-05-2025 Lymphocytes/100 WBC Auto (Unsp spec) 21.5 % 19-41 [facility] Basic Metabolic Profile (BMP )on 06-05-2025 BUN/CRE 20.4 RATIO High 10-20 [facility] Comment on above: Performed By: #### L 300.4310, L300.3900, L100.0100, L500.2500 #### [facility] [address] [place], [address] Calcium [Mass/Vol] 8.5 mg/dL Normal 7.6-11.0 [facility] Comment on above: Performed By: #### L 300.4310, L300.3900, L100.0100, L500.2500 #### [facility] [address] [place], [address] Chloride [Moles/Vol] 107 mmol/L Normal 98-108 [facility] Comment on above: Performed By: #### L 300.4310, L300.3900, L100.0100, L500.2500 #### [facility] [address] [place], [address] CO2 [Moles/Vol] 23.5 mmol/L Normal 21.0-32.0 [facility] Comment on above: Performed By: #### L 300.4310, L300.3900, L100.0100, L500.2500 #### [facility] [address] [place], [address] Creatinine [Mass/Vol] 1.07 mg/dL Normal 0.70-1.20 [facility] Comment on above: Performed By: #### L 300.4310, L300.3900, L100.0100, L500.2500 #### [facility] [address] [place], [address] ECRCL 40.68 ml/min Low 50-250 [facility] Comment on above: Performed By: #### L 300.4310, L300.3900, L100.0100, L500.2500 #### [facility] [address] [place], [address] GAP 11 Normal 5-15 [facility] Comment on above: Performed By: #### L 300.4310, L300.3900, L100.0100, L500.2500 #### [facility] [address] [place], [address] GFR/1.73 sq M.predicted among non-blacks MDRD (S/P/Bld) [Vol rate/Area] 51 mL/min/{1.73_m2} Low >60 [facility] Comment on above: Result Comment: mL/m in/1.73m2 CKD-EPI Creatinine Equation (2020) Performed By: #### L 300.4310, L300.3900, L100.0100, L500.2500 #### [facility] [address] [place], [address] Glucose [Mass/Vol] 81 mg/dL Normal 70-99 [facility] Comment on above: Performed By: #### L 300.4310, L300.3900, L100.0100, L500.2500 #### [facility] [address] [place], [address] Potassium [Moles/Vol] 3.8 mmol/L Normal 3.3-5.1 [facility] Comment on above: Performed By: #### L 300.4310, L300.3900, L100.0100, L500.2500 #### [facility] [address] [place], [address] Sodium [Moles/Vol] 141 mmol/L Normal 133-145 [facility] Comment on above: Performed By: #### L 300.4310, L300.3900, L100.0100, L500.2500 #### [facility] [address] [place], [address] Urea nitrogen [Mass/Vol] 22 mg/dL High 4-19 [facility] Comment on above: Performed By: #### L 300.4310, L300.3900, L100.0100, L500.2500 #### [facility] [address] [place], [address] Basophil percentageOrdered B y: Antonio Daly on 06-05-2025 Basophils/100 WBC (Bld) 0.4 % 0-1 [facility] CBC W/Diff, Automatedon 07- Absolute Lymph 1.55 X10 3/uL Normal 0.83-4.51 [facility] Comment on above: Performed By: #### L 300.4310, L300.3900, L100.0100, L500.2500 #### [facility] [address] [place], [address] Absolute Neut 4.5 X10 3/uL Normal 2.0-7.7 [facility] Comment on above: Performed By: #### L 300.4310, L300.3900, L100.0100, L500.2500 #### [facility] [address] [place], [address] Basophils/100 WBC (Bld) 0.4 % Normal 0-1 [facility] Comment on above: Performed By: #### L 300.4310, L300.3900, L100.0100, L500.2500 #### [facility] [address] [place], [address] Eosinophils/100 WBC (Bld) 7.9 % High 0-5 [facility] Comment on above: Performed By: #### L 300.4310, L300.3900, L100.0100, L500.2500 #### [facility] [address] [place], [address] Erythrocyte distribution width (RBC) [Ratio] 14.6 % Normal 11.6-14.6 [facility] Comment on above: Performed By: #### L 300.4310, L300.3900, L100.0100, L500.2500 #### [facility] [address] [place], [address] Hematocrit (Bld) [Volume fraction] 34.4 % Low 37-47 [facility] Comment on above: Performed By: #### L 300.4310, L300.3900, L100.0100, L500.2500 #### [facility] [address] [place], [address] Hemoglobin (Bld) [Mass/Vol] 11.2 g/dL Low 12.0-15.0 [facility] Comment on above: Performed By: #### L 300.4310, L300.3900, L100.0100, L500.2500 #### [facility] [address] [place], [address] IG% 0.300 Normal 0.0-0.9 [facility] Comment on above: Result Comment: IG% - Immature Granulocytes (promyelocytes, myelocytes and metamyelocytes) > 1% indicates that a LEFT SHIFT is Present. Performed By: #### L 300.4310, L300.3900, L100.0100, L500.2500 #### [facility] [address] [place], [address] Lymphocytes/100 WBC (Bld) 21.5 % Normal 19-41 [facility] Comment on above: Performed By: #### L 300.4310, L300.3900, L100.0100, L500.2500 #### [facility] [address] [place], [address] MCH (RBC) [Entitic mass] 27.9 pg Normal 27.0-32.0 [facility] Comment on above: Performed By: #### L 300.4310, L300.3900, L100.0100, L500.2500 #### [facility] [address] [place], [address] MCHC (RBC) [Mass/Vol] 32.6 g/dL Normal 32-36 [facility] Comment on above: Performed By: #### L 300.4310, L300.3900, L100.0100, L500.2500 #### [facility] [address] [place], [address] MCV (RBC) [Entitic vol] 85.8 fL Normal 81-99 [facility] Comment on above: Performed By: #### L 300.4310, L300.3900, L100.0100, L500.2500 #### [facility] [address] [place], [address] Monocytes/100 WBC (Bld) 8.2 % Normal 0-10 [facility] Comment on above: Performed By: #### L 300.4310, L300.3900, L100.0100, L500.2500 #### [facility] [address] [place], [address] Neutrophils/100 WBC (Bld) 61.7 % Normal 47-70 [facility] [facility] Comment on above: Performed By: #### L 300.4310, L300.3900, L100.0100, L500.2500 #### [facility] [address] [place], [address] Nucleated RBC (Bld) [#/Vol] 0 10*3/uL Normal 0-5 [facility] Comment on above: Performed By: #### L 300.4310, L300.3900, L100.0100, L500.2500 #### [facility] [address] [place], [address] Platelet mean volume (Bld) [Entitic vol] 10.0 fL Normal 6.2-12.0 [facility] Comment on above: Performed By: #### L 300.4310, L300.3900, L100.0100, L500.2500 #### [facility] [address] [place], [address] Platelets (Bld) [#/Vol] 295 10*3/uL Normal 150-450 [facility] Comment on above: Performed By: #### L 300.4310, L300.3900, L100.0100, L500.2500 #### [facility] [address] [place], [address] RBC (Bld) [#/Vol] 4.01 10*6/uL Low 4.2-5.[address] [facility] Comment on above: Performed By: #### L 300.4310, L300.3900, L100.0100, L500.2500 #### [facility] [address] [place], [address] RDW SD 46.1 fl High 35.1-43.9 [facility] Comment on above: Performed By: #### L 300.4310, L300.3900, L100.0100, L500.2500 #### [facility] [address] [place], [address] WBC (Bld) [#/Vol] 7.2 10*3/uL Normal 4.4-11.0 [facility] Comment on above: Performed By: #### L 300.4310, L300.3900, L100.0100, L500.2500 #### [facility] [address] [facility] [place], [address] Consultation - Infectious Dx on 06-05-2025 Consultation - Infectious Dx [facility] Medical Records Department [address] [place] [address] Consultation - Infectious Dx 06/05/25 1011 MR#: [id number] Acct: [id number] Name: ANNE MARIE GARZA Rep #: [id number] : 1940 85 From: Mathew Cheema MD PCP: Dr. Max Rodriguez MD Status:ADM IN Location: [place] [address] Assessment Plan Assessment/Plan (1) Infection due to ESBL-producing Escherichia coli: PLAN: Comp uti due to esbl ecoli - on pao, will continue will follow, thank you HPI Consult Data Date of Consult: 06/05/25 HPI Narrative Reason for Consultation: uti HPI Narrative: ANNE MARIE GARZA, is a 85 F with h/o COPD, CHF, MATT, reports 6 months of dyspnea with unrevealing cardiac/pulm workup. Recently dx with uti, started on po abx, had new hypotension and sent to ED. Now on meropenem, feeling about the same. Denies dysuria, no abd pain. Had some frothy urine recently per admitting documentation. Full ROS performed and neg except as noted above. [facility] Medical History History of ESBL E. coli infection Trigger middle finger of left hand Tobacco abuse Personal history of colonic polyps Osteoarthritis Heart attack Graves disease COPD (chronic obstructive pulmonary disease) CAD (coronary artery disease) Left ventricular diastolic dysfunction Chronic diastolic (congestive) heart failure Nicotine dependence Atherosclerosis of coronary artery of [place] heart without angina pectoris History of non-ST elevation myocardial infarction (NSTEMI) (12/21/19) Vertigo Essential hypertension Hypothyroidism Anxiety and depression MATT (obstructive sleep apnea) Obesity HLD (hyperlipidemia) Home Medications ???Medication ???Instructions ???Recorded ???Last Taken ???Type aspirin 81 mg chewable tablet 81 mg PO DAILY@0800 heart health 0 05/07/20 05/06/20 History rosuvastatin 5 mg tablet 5 mg PO DAILY cholesterol 05/07/20 05/06/20 History omeprazole 40 mg capsule,delayed 40 mg PO BID stomach 01/29/22 Unkn own History release celecoxib 200 mg capsule (Celebrex) 200 mg PO BID mood 01/21/24 Unk nown History duloxetine 30 mg capsule,delayed 30 mg PO QDAY mood 03/22/25 Unknow n History release metoprolol succinate 50 mg 50 mg PO DAILY heart #90 tabs 03/08 04/01 Unknown Rx tablet,extended release 24 hr Held on 06/04/25. Instructions: MD Ordered tramadol 50 mg tablet 50 mg PO Q12H Pain Score 1-10 03/08 04/01 Unknown History valsartan 320 mg tablet 320 mg PO QDAY bp 03/22/25 Unknown History Held on 06/04/25. Instructions: MD Ordered amlodipine 10 mg tablet 10 mg PO QDAY bp 05/30/25 Unknown History Held on 06/04/25. Instructions: MD Ordered levothyroxine 137 mcg tablet 137 mcg PO MOTUWETHFR thyroid 05/09 01/30 Unknown History (Levoxyl) levothyroxine 137 mcg tablet 68.5 mcg PO SA thyroid 05/30/25 Un known History (Synthroid) Allergy/AdvReac Type Severity Reaction Status Date / Time iodine Allergy Severe Angioedema Verified 06/04/25 18:18 guaifenesin (From Mucinex) Allergy Mild Other Verified 06/04/25 18:18 ticagrelor (From Brilinta) AdvReac Severe Shortness Verified 06/04/25 18:18 of breath varenicline (From Chantix) AdvReac Severe Other Verified 06/04/25 18:18 Family History Father CAD (coronary artery disease) Prostate cancer Brother Alzheimer's disease Daughter Breast cancer Daughter Breast cancer Surgical History History of coronary artery stent placement (12/21/19) Social History Smoking Status: Former smoker Tobacco: How many years used: 45 Electronic Cigarette Use: with nicotine and not used how long ago did patient quit smokin10/2023 second hand exposure: No alcohol intake: current alcohol intake frequency: a few times a week substance use type: does not use Physical Exam Const alert and no apparent distress General Appearance: cooperative HEENT normocephalic and head/scalp atraumatic Eyes PERRL and EOMs intact bilaterally Neck supple and No nodes Resp normal air movement Auscultation: wheezes Cardio regular rate and regular rhythm GI soft to palpation, non-tender and non-distended Extremity General Extremity: Negative for edema Skin no rashes or lesions noted Neuro CN's II-XII intact bilaterally Lab / Micro Data Attestation: I reviewed the patient's lab results. 06/05/25 05:40 06/05/25 05:40 Labs: Laboratory Results - last 24 hr 06/04/25 18:47: WBC 7.7, RBC 4.31, Hgb 11.8 L, Hct 37.0, MCV 85.8, MCH 27.4, MCHC 31.9 L, RDW Std Deviation 47.0 H, RDW Coeff of Kal 14.7 H, Plt Count 330, MPV 10.1, Immature Gran % (Auto) 0.400, Neut % ( (more content not included)... Normal [facility] Electrocardiogram reportOrde red By: Emmett Rasmussen on 06-05-2025 EKG study [facility] Cardiovascular Services [address] [place] [address] 12 Lead EKG 06/04/25 3346 MR#: [id number] Acct: [id number] Name: ANNE MARIE GARZA Rep #:[id number] : 1940 85 From: Emmett Rasmussen MD Attending Dr: Dr. Massiel De La Cruz DO S tatus: ADM IN Ordering Dr: Otto Cueto DO Date: Location: [facility] Sex: F C Admitted: 06/04/25 Test Reason : DYSRHYTHMIA Blood Pressure : */* mmHG Vent. Rate : 95 BPM Atrial Rate : 95 BPM P-R Int : 120 ms QRS Dur : 72 ms QT Int : 370 ms P-R-T Axes : 67 44 74 degrees QTcB Int : 464 ms Normal sinus rhythm Minimal voltage criteria for LVH, may be normal variant ( Sokolow-Glynn ) Nonspecific ST abnormality Abnormal ECG Confirmed by GRADY US, EMMETT ([id number]), editor book SAVANNAH ZALDIVAR ([id number]) on 51:03:31 PM Referred By: Confirmed By: EMMETT RASMUSSEN MD 06/05/25 1303 Date _ Emmett Rasmussen MD CC: Dr. Max Rodriguez MD; Dr. Massiel De La Cruz DO; Dr. Otto Cueto DO ~ Signed [facility] Work Phone: Eosinophil percentageOrdered By: Antonio Daly on 06-05-2025 Eosinophils/100 WBC (Bld) 7.9 % High 0-5 [facility] Immature granulocytes/100 WB C Auto (Bld)Ordered By: Antonio Daly on 06-05-2025 Immature granulocytes/100 WBC (Bld) 0.300 % 0.0-0.9 [facility] Comment on above: IG% - Immature Granu locytes (promyelocytes, myelocytes and metamyelocytes) > 1% indicates that a LEFT SHIFT is Present. Monocyte percentageOrdered B y: Antonio Daly on 06-05-2025 Monocytes/100 WBC (Bld) 8.2 % 0-10 [facility] Neutrophil percentageOrdered By: Antonio Daly on 06-05-2025 Neutrophils/100 WBC (Bld) 61.7 % 47-70 [facility] Nucleated red blood cell per centageOrdered By: Antonio Daly on 06-05-2025 Nucleated RBC/100 WBC (Bld) [Ratio] 0 % 0-5 [facility] TSH DL <= 0.005 mIU/L QnOrde red By: Antonio Daly on 06-05-2025 TSH Qn 4.030 uIU/mL 0.300-4.200 [facility] Thyroid Stim Hormone (TSH)on 06-05-2025 TSH 4.030 uIU/mL Normal 0.300-4.200 [facility] Comment on above: Performed By: #### L 300.4310, L300.3900, L100.0100, L500.2500 #### [facility] [address] [facility] [place], [address] Troponin T HS 4 HRon 025 Trop T High Sen 14 ng/L Normal <=14 [facility] Comment on above: Performed By: #### L 499.0043 #### [facility] [address] [place], [address] Troponin T.cardiac [Mass/vol ume] in Serum or Plasma by High sensitivity methodOrdered By: Otot Cueto on 06-05-2025 Troponin T.cardiac High sensitivity method [Mass/Vol] 14 ng/L <14 [facility] 12 Lead EKGon 2025 12 Lead EKG [facility] Cardiovascular Services [address] [place] [address] 12 Lead EKG 06/04/25 1836 MR#: [id number] Acct: [id number] Name: ANNE MARIE GARZA Rep #: [id number] : 1940 85 From: Emmett Rasmussen MD Attending Dr: Dr. Massiel De La Cruz DO Status: ADM I N Ordering Dr: Otto Cueto DO Date: 06/04/25 Location: [facility] Sex: F C Admitted: 06/04/25 Test Reason : DYSRHYTHMIA Blood Pressure : */* mmHG Vent. Rate : 95 BPM Atrial Rate : 95 BPM P-R Int : 120 ms QRS Dur : 72 ms QT Int : 370 ms P-R-T Axes : 67 44 74 degrees QTcB Int : 464 ms Normal sinus rhythm Minimal voltage criteria for LVH, may be normal variant ( Sokolow-Glynn ) Nonspecific ST abnormality Abnormal ECG Confirmed by GRADY US, EMMETT ([id number]), editor book SAVANNAH ZALDIVAR ([id number]) on 06/05/2025 1:03:31 PM Referred By: Confirmed By: EMMETT RASMUSSEN MD 06/05/25 1303 Date Emmett Rasmussen MD CC: Dr. Max Rodriguez MD; Dr. Massiel De La Cruz DO; Dr. Otto Cueto DO Signed Normal [facility] Absolute lymphocyte countOrd ered By: Otto Cueto on 2025 Lymphocytes Auto (Unsp spec) [#/Vol] 1.68 10*3/uL 0.83-4.51 [facility] Absolute neutrophil countOrd ered By: Otto Cueto on 2025 Neutrophils (Bld) [#/Vol] 4.7 10*3/uL 2.0-7.7 [facility] Activated partial thrombopla stin time (aPTT) in platelet poor plasma by coagulation aOrdered By: Otto Cueto on 2025 aPTT Coag (PPP) [Time] 28.5 s 24.1-36.2 [facility] Anion gap in Serum or Plasma Ordered By: Otto Cueto on 2025 Anion gap [Moles/Vol] 12 mmol/L 5-15 [facility] Automated lymphocyte count a s percentage of total leukocytesOrdered By: Otto Cueto on 2025 Lymphocytes/100 WBC Auto (Unsp spec) 21.7 % 19-41 [facility] BUN/creatinine ratioOrdered By: Otto Cueto on 2025 Urea nitrogen/Creatinine [Mass ratio] 20.1 mg/mg High 10-20 [facility] Basophil percentageOrdered B y: Otto Cueto on 2025 Basophils/100 WBC (Bld) 0.6 % 0-1 [facility] Bilirubin Test strip Ql (U)O rdered By: Otto Navaer on 2025 Bilirubin Ql (U) Negative Negative [facility] Bilirubin, totalOrdered By: Otto Cueto on 2025 Bilirubin [Mass/Vol] 0.21 mg/dL 0.00-1.30 [facility] Blood cultureOrdered By: Gricelda pope Nory on 2025 Bacteria identified Cx Nom (Bld) No growth in 5 days. [facility] Bacteria identified Cx Nom (Bld) No growth in 5 days. [facility] CBC W/Diff, Automatedon 05-09 Absolute Lymph 1.68 X10 3/uL Normal 0.83-4.51 [facility] Comment on above: Performed By: #### L 300.4310, L300.3900, L100.0100, L500.2500 #### [facility] [address] [place], [address] Absolute Neut 4.7 X10 3/uL Normal 2.0-7.7 [facility] Comment on above: Performed By: #### L 300.4310, L300.3900, L100.0100, L500.2500 #### [facility] [address] [place], [address] Basophils/100 WBC (Bld) 0.6 % Normal 0-1 [facility] Comment on above: Performed By: #### L 300.4310, L300.3900, L100.0100, L500.2500 #### [facility] [address] [place], [address] Eosinophils/100 WBC (Bld) 8.4 % High 0-5 [facility] Comment on above: Performed By: #### L 300.4310, L300.3900, L100.0100, L500.2500 #### [facility] [address] [place], [address] Erythrocyte distribution width (RBC) [Ratio] 14.7 % High 11.6-14.6 [facility] Comment on above: Performed By: #### L 300.4310, L300.3900, L100.0100, L500.2500 #### [facility] [address] [place], [address] Hematocrit (Bld) [Volume fraction] 37.0 % Normal 37-47 [facility] Comment on above: Performed By: #### L 300.4310, L300.3900, L100.0100, L500.2500 #### [facility] [address] [place], [address] Hemoglobin (Bld) [Mass/Vol] 11.8 g/dL Low 12.0-15.0 [facility] Comment on above: Performed By: #### L 300.4310, L300.3900, L100.0100, L500.2500 #### [facility] [address] [place], [address] IG% 0.400 Normal 0.0-0.9 [facility] Comment on above: Result Comment: IG% - Immature Granulocytes (promyelocytes, myelocytes and metamyelocytes) > 1% indicates that a LEFT SHIFT is Present. Performed By: #### L 300.4310, L300.3900, L100.0100, L500.2500 #### [facility] [address] [place], [address] Lymphocytes/100 WBC (Bld) 21.7 % Normal 19-41 [facility] Comment on above: Performed By: #### L 300.4310, L300.3900, L100.0100, L500.2500 #### [facility] [address] [place], [address] MCH (RBC) [Entitic mass] 27.4 pg Normal 27.0-32.0 [facility] Comment on above: Performed By: #### L 300.4310, L300.3900, L100.0100, L500.2500 #### [facility] [address] [place], [address] MCHC (RBC) [Mass/Vol] 31.9 g/dL Low 32-36 [facility] Comment on above: Performed By: #### L 300.4310, L300.3900, L100.0100, L500.2500 #### [facility] [address] [place], [address] MCV (RBC) [Entitic vol] 85.8 fL Normal 81-99 [facility] Comment on above: Performed By: #### L 300.4310, L300.3900, L100.0100, L500.2500 #### [facility] [address] [place], [address] Monocytes/100 WBC (Bld) 8.8 % Normal 0-10 [facility] Comment on above: Performed By: #### L 300.4310, L300.3900, L100.0100, L500.2500 #### [facility] [address] [place], [address] Neutrophils/100 WBC (Bld) 60.1 % Normal 47-70 [facility] Comment on above: Performed By: #### L 300.4310, L300.3900, L100.0100, L500.2500 #### [facility] [address] [place], [address] Nucleated RBC (Bld) [#/Vol] 0 10*3/uL Normal 0-5 [facility] Comment on above: Performed By: #### L 300.4310, L300.3900, L100.0100, L500.2500 #### [facility] [address] [place], [address] Platelet mean volume (Bld) [Entitic vol] 10.1 fL Normal 6.2-12.0 [facility] Comment on above: Performed By: #### L 300.4310, L300.3900, L100.0100, L500.2500 #### [facility] [address] [place], [address] Platelets (Bld) [#/Vol] 330 10*3/uL Normal 150-450 [facility] Comment on above: Performed By: #### L 300.4310, L300.3900, L100.0100, L500.2500 #### [facility] [address] [place], [address] RBC (Bld) [#/Vol] 4.31 10*6/uL Normal 4.2-5.[address] [facility] Comment on above: Performed By: #### L 300.4310, L300.3900, L100.0100, L500.2500 #### [facility] [address] [place], [address] RDW SD 47.0 fl High 35.1-43.9 [facility] Comment on above: Performed By: #### L 300.4310, L300.3900, L100.0100, L500.2500 #### [facility] [address] [place], [address] WBC (Bld) [#/Vol] 7.7 10*3/uL Normal 4.4-11.0 [facility] Comment on above: Performed By: #### L 300.4310, L300.3900, L100.0100, L500.2500 #### [facility] [address] [place], [address] Carbon dioxide, total [Moles /volume] in Central venous bloodOrdered By: Otto Cueto on 2025 CO2 [Moles/Vol] 23.1 mmol/L 21.0-32.0 [facility] Chest PA and Lateralon 06-04 Chest PA and Lateral [facility] Imaging Services [address] [place], [place] [id number] Chest PA and Lateral MR#: [id number] Acct: [id number] Name: ANNE MARIE GARZA Rep #: [id number] : 1940 F 85 From: Deejay Donato MD PCP: Dr. Max Rodriguez MD Status: REG ER Study: Chest PA and Lateral Date of Exam: 06/04/25 Exam# [id number] Ordering Dr: Otto Cueto DO PROCEDURE: CHEST PA AND LATERAL 2025 REASON FOR EXAM: COUGH TECHNIQUE: CHEST PA AND LATERAL COMPARISON: Chest x-ray 12/13/2023, CT 05/26/2025. FINDINGS: Lungs/Pleura: No focal consolidation, pneumothorax, or pleural effusion. Moderate bilateral pulmonary emphysema. No significant vascular congestion. Heart/Mediastinum: Borderline enlarged. Calcification of the aortic arch. Bones/Soft tissues: Mild degenerative changes of the visualized spine. RAD/Chest PA and Lateral IMPRESSION: Moderate emphysema. No focal consolidation or pleural effusion. Reading Location: [facility] CC: Dr. Max Rodriguez MD; Dr. Otto Cueto DO Museum Attendant: Signed Normal [facility] Chloride assayOrdered By: Luc Cueto on 2025 Chloride [Moles/Vol] 105 mmol/L 98-108 [facility] Comprehensive Metabolic Prof ilon 2025 Albumin [Mass/Vol] 3.5 g/dL Normal 3.4-4.8 [facility] Comment on above: Performed By: #### L 300.4310, L300.3900, L100.0100, L500.2500 #### [facility] [address] [place], [place], [address] Albumin/Globulin [Mass ratio] 1.1 {ratio} Normal 0.9-2.4 [facility] Comment on above: Performed By: #### L 300.4310, L300.3900, L100.0100, L500.2500 #### [facility] [address] [place], [address] ALK PHOS 94 U/L Normal 35-104 [facility] Comment on above: Performed By: #### L 300.4310, L300.3900, L100.0100, L500.2500 #### [facility] [address] [place], [address] ALT [Catalytic activity/Vol] 26 U/L Normal <=34 [facility] Comment on above: Performed By: #### L 300.4310, L300.3900, L100.0100, L500.2500 #### [facility] [address] [place], [address] AST [Catalytic activity/Vol] 24 U/L Normal <=31 [facility] Comment on above: Performed By: #### L 300.4310, L300.3900, L100.0100, L500.2500 #### [facility] [address] [place], [address] Bilirubin [Mass/Vol] 0.21 mg/dL Normal 0.00-1.30 [facility] Comment on above: Performed By: #### L 300.4310, L300.3900, L100.0100, L500.2500 #### [facility] [address] [place], [address] BUN/CRE 20.1 RATIO High 10-20 [facility] Comment on above: Performed By: #### L 300.4310, L300.3900, L100.0100, L500.2500 #### [facility] [address] [place], [address] Calcium [Mass/Vol] 8.8 mg/dL Normal 7.6-11.0 [facility] Comment on above: Performed By: #### L 300.4310, L300.3900, L100.0100, L500.2500 #### [facility] [address] [place], [address] Chloride [Moles/Vol] 105 mmol/L Normal 98-108 [facility] Comment on above: Performed By: #### L 300.4310, L300.3900, L100.0100, L500.2500 #### [facility] [address] [place], [address] CO2 [Moles/Vol] 23.1 mmol/L Normal 21.0-32.0 [facility] Comment on above: Performed By: #### L 300.4310, L300.3900, L100.0100, L500.2500 #### [facility] [address] [place], [address] Creatinine [Mass/Vol] 1.34 mg/dL High 0.70-1.20 [facility] Comment on above: Performed By: #### L 300.4310, L300.3900, L100.0100, L500.2500 #### [facility] [address] [place], [address] ECRCL 32.56 ml/min Low 50-250 [facility] Comment on above: Performed By: #### L 300.4310, L300.3900, L100.0100, L500.2500 #### [facility] [address] [place], [address] GAP 12 Normal 5-15 [facility] Comment on above: Performed By: #### L 300.4310, L300.3900, L100.0100, L500.2500 #### [facility] [address] [place], [address] GFR/1.73 sq M.predicted among non-blacks MDRD (S/P/Bld) [Vol rate/Area] 39 mL/min/{1.73_m2} Low >60 [facility] Comment on above: Result Comment: mL/m in/1.73m2 CKD-EPI Creatinine Equation (2020) Performed By: #### L 300.4310, L300.3900, L100.0100, L500.2500 #### [facility] [address] [place], [address] Globulin (S) [Mass/Vol] 3.0 g/dL Normal 2.2-4.2 [facility] Comment on above: Performed By: #### L 300.4310, L300.3900, L100.0100, L500.2500 #### [facility] [address] [place], [address] Glucose [Mass/Vol] 95 mg/dL Normal 70-99 [facility] Comment on above: Performed By: #### L 300.4310, L300.3900, L100.0100, L500.2500 #### [facility] [address] [place], [address] Potassium [Moles/Vol] 4.1 mmol/L Normal 3.3-5.1 [facility] Comment on above: Performed By: #### L 300.4310, L300.3900, L100.0100, L500.2500 #### [facility] [address] [place], [address] Sodium [Moles/Vol] 141 mmol/L Normal 133-145 [facility] Comment on above: Performed By: #### L 300.4310, L300.3900, L100.0100, L500.2500 #### [facility] [address] [place], [address] T PROT 6.5 g/dL Normal 5.9-8.4 [facility] Comment on above: Performed By: #### L 300.4310, L300.3900, L100.0100, L500.2500 #### [facility] [address] [place], [address] Urea nitrogen [Mass/Vol] 27 mg/dL High 4- [facility] Comment on above: Performed By: #### L 300.4310, L300.3900, L100.0100, L500.2500 #### [facility] [address] [place], [address] Emergency Department Summary on 2025 Emergency Department Summary [facility] Medical Records Department [address] [place] [address] Emergency Department Summary 06/04/25 MR#: [id number] Acct: [id number] Name: ANNE MARIE GARZA Rep #: [id number] : 1940 85 From: Otto Cueto DO PCP: Dr. Max Rodriguez MD Status:REG ER Location: ED HPI History of Present Illness Chief Complaint: Hypotension Narrative Narrative: Patient is a 85-year-old female with past medical history of ESBL, Graves' disease, COPD, CAD, heart failure, hypothyroidism, MATT, hyperlipidemia who presented to the emerged part with concern for low blood pressure. According the patient's daughter at bedside she notes that she was here recently was diagnosed with a urinary tract infection was ultimately sent home and when the culture came back to change her antibiotics. They noted that she had a follow-up appointment with her ball maker and in the office her blood pressure was low they advised her to hold her blood pressure medications through the weekend which they did. Despite this her blood pressures were reading low at home and they followed up again with the ball maker this evening and they advised them to bring her here to be further evaluated with the known history of UTI. Patient states that she does feel extremely weak. [facility] Medical History History of ESBL E. coli infection Trigger middle finger of left hand Tobacco abuse Personal history of colonic polyps Osteoarthritis Heart attack Graves disease COPD (chronic obstructive pulmonary disease) CAD (coronary artery disease) Left ventricular diastolic dysfunction Chronic diastolic (congestive) heart failure Nicotine dependence Atherosclerosis of coronary artery of [place] heart without angina pectoris History of non-ST elevation myocardial infarction (NSTEMI) (12/21/19) Vertigo Essential hypertension Hypothyroidism Anxiety and depression MATT (obstructive sleep apnea) Obesity HLD (hyperlipidemia) Home Medications ???Medication ???Instructions ???Recorded ???Last Taken ???Type aspirin 81 mg chewable tablet 81 mg PO DAILY@0800 heart health 0 05/07/20 05/06/20 History rosuvastatin 5 mg tablet 5 mg PO DAILY cholesterol 05/07/20 05/06/20 History omeprazole 40 mg capsule,delayed 40 mg PO BID 01/29/22 Unknown Hist ory release celecoxib 200 mg capsule (Celebrex) 200 mg PO BID 01/21/24 Unknown History duloxetine 30 mg capsule,delayed 30 mg PO QDAY 03/22/25 Unknown His tory release metoprolol succinate 50 mg 50 mg PO DAILY heart #90 tabs 03/08 04/01 Unknown Rx tablet,extended release 24 hr tramadol 50 mg tablet 50 mg PO Q12H Pain Score 1-10 03/08 04/01 Unknown History valsartan 320 mg tablet 320 mg PO QDAY 03/22/25 Unknown Hi story nitrofurantoin 100 mg PO Q12 #10 CAPSULES 5 Unknown Rx monohydrate/macrocryst als 100 mg capsule albuterol sulfate 90 mcg/actuation 2 puff inhalation Q4H PRN Unknown History aerosol inhaler amlodipine 10 mg tablet 10 mg PO QDAY 05/30/25 Unknown His tory levothyroxine 137 mcg tablet 137 mcg PO MOTUWETHFR 05/30/25 Unk nown History (Levoxyl) levothyroxine 137 mcg tablet 68.5 mcg PO SA 05/30/25 Unknown Hi story (Synthroid) Allergy/AdvReac Type Severity Reaction Status Date / Time iodine Allergy Severe Angioedema Verified 06/04/25 18:18 guaifenesin (From Mucinex) Allergy Mild Other Verified 06/04/25 18:18 ticagrelor (From Brilinta) AdvReac Severe Shortness Verified 06/04/25 18:18 of breath varenicline (From Chantix) AdvReac Severe Other Verified 06/04/25 18:18 Family History Father CAD (coronary artery disease) Prostate cancer Brother Alzheimer's disease Daughter Breast cancer Daughter Breast cancer Surgical History History of coronary artery stent placement (12/21/19) Social History Smoking Status: Former smoker Tobacco: How many years used: 45 Electronic Cigarette Use: with nicotine and not used how long ago did patient quit smokin10/2023 second hand exposure: No alcohol intake: current alcohol intake frequency: a few times a week substance use type: does not use ROS ROS ED ROS Narrative Constitutional: Denies any fevers, lightheadedness, dizziness Eyes: Denies double vision Cardiovascular: Denies chest pain Respiratory: States that she has shortness of breath but this is not new this is a chronic issue Abdomen: Denies nausea vomiting diarrhea : States that she is diagnosed with a UTI recently Neurological: Complains of generalized weakness denies numbness or tingling Musculoskeletal: Denies back pain Skin: Denies any rashes or le (more content not included)... Normal [facility] Eosinophil percentageOrdered By: Otto Cueto on 2025 Eosinophils/100 WBC (Bld) 8.4 % High 0-5 [facility] Erythrocyte distribution wid th ratioOrdered By: Otto Cueto on 2025 Erythrocyte distribution width (RBC) [Ratio] 14.7 % High 11.6-14.6 [facility] Erythrocyte distribution wid th standard deviationOrdered By: Otto Cueto on 2025 Erythrocyte distribution width (RBC) [Ratio] 47.0 fl High 35.1-43.9 [facility] Glomerular filtration rate ( GFR) estimation/1.73 sq m using serum, plasma, or whole bOrdered By: Otto Cueto on 2025 GFR/1.73 sq M.predicted among non-blacks MDRD (S/P/Bld) [Vol rate/Area] 39 mL/min/{1.73_m2} Low >60 [facility] Comment on above: mL/min/1.73m2 CKD-EP I Creatinine Equation (2020) Hematocrit Auto (Bld) [Volum e fraction]Ordered By: Otto Cueto on 2025 Hematocrit (Bld) [Volume fraction] 37.0 % 37-47 [facility] Hemoglobin measurementOrdere d By: Otto Cueto on 2025 Hemoglobin (Bld) [Mass/Vol] 11.8 g/dL Low 12.0-15.0 [facility] Immature granulocytes/100 WB C Auto (Bld)Ordered By: Otto Cueto on 2025 Immature granulocytes/100 WBC (Bld) 0.400 % 0.0-0.9 [facility] Comment on above: IG% - Immature Granu locytes (promyelocytes, myelocytes and metamyelocytes) > 1% indicates that a LEFT SHIFT is Present. International normalized rat io (INR) calculationOrdered By: Otto Cueto on 2025 INR Coag (Bld) [Relative time] 0.9 {INR} [facility] Ketones Test strip Ql (U)Ord ered By: Otto Cueto on 2025 Ketones Ql (U) Negative Negative [facility] L501.4021on 2025 Trop T High Sen 17 ng/L High <=14 [facility] Comment on above: Performed By: #### L 503.7505, L100.0100, L500.2500 #### [facility] [address] [place], [place], [id number] Laboratory - Chemistry and C hemistry - challengeOrdered By: Otto Cueto on 2025 AST [Catalytic activity/Vol] 24 U/L <32 [facility] Lactic Acidon 2025 Lactate [Moles/Vol] 1.5 mmol/L Normal 0.0-2.[address] [facility] Comment on above: Order Comment: Y Performed By: #### L 300.4310, L300.3900, L100.0100, L500.2500 #### [facility] [address] [place], [address] Lactic acid measurementOrder ed By: Otto Cueto on 2025 Lactate [Moles/Vol] 1.5 mmol/L 0.0-2.[address] [facility] MCV (mean corpuscular volume ) determinationOrdered By: Otto Cueto on 2025 MCV (RBC) [Entitic vol] 85.8 fL 81-99 [facility] Mean corpuscular hemoglobin (MCH) determinationOrdered By: Otto Cueto on 2025 MCH (RBC) [Entitic mass] 27.4 pg 27.0-32.0 [facility] Mean corpuscular hemoglobin concentration (MCHC) determinationOrdered By: Otto Cueto on 2025 MCHC (RBC) [Mass/Vol] 31.9 g/dL Low 32-36 [facility] Mean platelet volume determi nationOrdered By: Otto Cueto on 2025 Platelet mean volume (Bld) [Entitic vol] 10.1 fL 6.2-12.0 [facility] Microscopic analysis of urin e for red blood cells (RBC)Ordered By: Otto Cueto on 2025 Microscopic analysis of urine for red blood cells (RBC) 0-5 SEEN /hpf 0-5 [facility] Monocyte percentageOrdered B y: Otto Cueto on 2025 Monocytes/100 WBC (Bld) 8.8 % 0-10 [facility] Mucus LM Ql (Urine sed)Order ed By: Otto Cueto on 2025 Mucus Ql (Urine sed) 0 SEEN /hpf [facility] Natriuretic peptide.B prohor néstor N-Terminal [Mass/volume] in Serum or PlasmaOrdered By: Otto Cueto on 2025 Natriuretic peptide.B prohormone N-Terminal [Mass/Vol] 1032 pg/mL <1800 [facility] Comment on above: Heart Failure Unlike ly: < 300 pg/mLHeart Failure Likely< 50 Years: > 450 pg/mL50-75 Years: > 900 pg/mL>75 Years: > 1800 pg/mL Neutrophil percentageOrdered By: Otto Cueto on 2025 Neutrophils/100 WBC (Bld) 60.1 % 47-70 [facility] Nitrite Test strip Ql (U)Ord ered By: Otto Cueto on 2025 Nitrite Ql (U) Negative Negative [facility] Nucleated red blood cell per centageOrdered By: Otto Cueto on 2025 Nucleated RBC/100 WBC (Bld) [Ratio] 0 % 0-5 [facility] Partial Thromboplast Timeon 2025 aPTT Coag (Bld) [Time] 28.5 s Normal 24.1-36.2 [facility] Comment on above: Performed By: #### L 300.4310, L300.3900, L100.0100, L500.2500 #### [facility] [address] [place], [place], [id number] Platelet countOrdered By: Luc Cueto on 2025 Platelets (Bld) [#/Vol] 330 10*3/uL 150-450 [facility] Potassium measurement (mass/ volume)Ordered By: Otto Cueto on 2025 Potassium (Unsp spec) [Mass/Vol] 4.1 mmol/L 3.3-5.1 [facility] Pro- Brain NATRIURETIC PEPTI Kateryna 2025 Natriuretic peptide B (Bld) [Mass/Vol] 1032 pg/mL Normal <=1800 [facility] Comment on above: Result Comment: Hear t Failure Unlikely: < 300 pg/mL Heart Failure Likely < 50 Years: > 450 pg/mL 50-75 Years: > 900 pg/mL >75 Years: > 1800 pg/mL Performed By: #### L 503.7505, L100.0100, L500.2500 #### [facility] [address] [place], [place], [id number] Protein Test strip Ql (U)Ord ered By: Otto Cueto on 2025 Protein Ql (U) 30 mg/dl High Negative [facility] Prothrombin Time w/INRon INR Coag (PPP) [Relative time] 0.9 {INR} Normal [facility] Comment on above: Performed By: #### L 300.4310, L300.3900, L100.0100, L500.2500 #### [facility] [address] [place], [address] PT Coag (PPP) [Time] 12.8 s Normal 11.7-14.9 [facility] Comment on above: Performed By: #### L 300.4310, L300.3900, L100.0100, L500.2500 #### [facility] [address] [place], [address] Prothrombin timeOrdered By: Otto Cueto on 2025 PT Coag (PPP) [Time] 12.8 s 11.7-14.9 [facility] RBC Auto (Bld) [#/Vol]Ordere d By: Otto Cueto on 2025 RBC (Bld) [#/Vol] 4.31 10*6/uL 4.2-5.[address] [facility] Serum creatinine measurement (mass/volume)Ordered By: Otto Cueto on 2025 Creatinine [Mass/Vol] 1.34 mg/dL High 0.70-1.20 [facility] Serum globulin measurementOr dered By: Otto Cueto on 2025 Globulin (S) [Mass/Vol] 3.0 g/dL 2.2-4.2 [facility] Serum glucose measurement (m ass/volume)Ordered By: Otto Cueto on 2025 Glucose [Mass/Vol] 95 mg/dL 70-99 [facility] Serum or plasma alanine balderas otransferase (ALT) measurementOrdered By: Otto Cueto on 2025 ALT [Catalytic activity/Vol] 26 U/L <35 [facility] Serum or plasma albumin ajit urement (mass/volume)Ordered By: Otto Cueto on 2025 Albumin [Mass/Vol] 3.5 g/dL 3.4-4.8 [facility] Serum or plasma albumin/glob ulin mass ratioOrdered By: Otto Cueto on 2025 Albumin/Globulin [Mass ratio] 1.1 {ratio} 0.9-2.4 [facility] Serum or plasma alkaline victorino sphatase measurementOrdered By: Otto Cueto on 2025 ALP [Catalytic activity/Vol] 94 U/L 35-104 [facility] Serum or plasma calcium ajit urement (mass/volume)Ordered By: Otto Cueto on 2025 Calcium [Mass/Vol] 8.8 mg/dL 7.6-11.0 [facility] Serum or plasma urea nitroge n measurement (mass/volume)Ordered By: Otto Cueto on 2025 Urea nitrogen [Mass/Vol] 27 mg/dL High 4-19 [facility] Sodium levelOrdered By: aRmirez Cueto on 2025 Sodium [Moles/Vol] 141 mmol/L 133-145 [facility] Squamous epithelial cells de tection in urine sediment by light microscopyOrdered By: Otto Cueto on 2025 Epithelial cells.squamous LM Ql (Urine sed) 10-25 SEEN /hpf 5-10 [facility] Total proteinOrdered By: Gricelda Cueto on 2025 Protein [Mass/Vol] 6.5 g/dL 5.9-8.4 [facility] Troponin T HS 2 HRon 025 Trop T High Sen 14 ng/L Normal <=14 [facility] Comment on above: Performed By: #### L 499.0042 #### [facility] [address] [facility] [place], [address] Troponin T.cardiac [Mass/vol ume] in Serum or Plasma by High sensitivity methodOrdered By: Otto Cueto on 2025 Troponin T.cardiac High sensitivity method [Mass/Vol] 14 ng/L <14 [facility] Troponin T.cardiac High sensitivity method [Mass/Vol] 17 ng/L High <14 [facility] Comment on above: Delta: 10 on 5-1021 Urinalysis, Completeon 06-04 BACTERIA 2+ /hpf Normal None Seen [facility] Comment on above: Order Comment: COLLE CTOR TO SPECIFY Performed By: #### L 503.7505, L100.0100, L500.2500 #### [facility] [address] [place], [address] EPI,SQUAMOUS 10-25 SEEN Normal 5-10 [facility] Comment on above: Order Comment: COLLE CTOR TO SPECIFY Performed By: #### L 503.7505, L100.0100, L500.2500 #### [facility] [address] [place], [address] RBC 0-5 SEEN Normal 0-5 [facility] Comment on above: Order Comment: COLLE CTOR TO SPECIFY Performed By: #### L 503.7505, L100.0100, L500.2500 #### [facility] [address] [place], [address] WBC 10-25 SEEN Normal 0-5 [facility] Comment on above: Order Comment: COLLE CTOR TO SPECIFY Performed By: #### L 503.7505, L100.0100, L500.2500 #### [facility] [address] [place], [address] Mucus Ql (Urine sed) 0 SEEN Normal [facility] Comment on above: Order Comment: COLLE CTOR TO SPECIFY Performed By: #### L 503.7505, L100.0100, L500.2500 #### [facility] [address] [place], [address] Urine clarityOrdered By: Gricelda Cueto on 2025 Clarity (U) Sl. Cloudy Clear [facility] Urine color determinationOrd ered By: Otto Cueto on 2025 Color (U) Yellow Yellow [facility] Urine cultureOrdered By: Gricelda Cueto on 2025 Bacteria identified Cx Nom (U) Mixed Gram Pos & Gram Neg Org Abnormal [facility] Urine glucose detectionOrder ed By: Otto Cueto on 2025 Glucose Ql (U) Normal mg/dl Normal [facility] Urine leukocyte esterase det ection by dipstickOrdered By: Otto Cueto on 2025 Leukocyte esterase Test strip Ql (U) 100 /ul High Negative [facility] Urine pHOrdered By: Otto coreas on 2025 pH (U) 6.0 [pH] 5.0 - 8.0 [facility] Urine sediment bacteria coun t by microscopy (number/high power field)Ordered By: Otto Cueto on 2025 Bacteria LM.HPF (Urine sed) [#/Area] 2 /[HPF] None Seen [facility] Urine specific gravity measu rementOrdered By: Otto Cueto on 2025 Specific gravity (U) [Rel density] 1.025 1.002-1.030 [facility] Urine urobilinogen measureme ntOrdered By: Otto Cueto on 2025 Urobilinogen Ql (U) 4 mg/dl High Normal [facility] White blood cell (WBC) count Ordered By: Otto Cueto on 2025 WBC (Bld) [#/Vol] 7.7 10*3/uL 4.4-11.0 [facility] White blood cell countOrdere d By: Otto Cueto on 2025 White blood cell count 10-25 SEEN /hpf 0-5 [facility] Cardiology Visit Reporton Cardiology Visit Report [facility] [address] [place] [address]. [address] [place] [address] OFFICE VISIT Date of Service: 05/30/25 MR#: [id number] Acct: [id number] Name: ANNE MARIE GARZA Rep #: [id number] : 1940 Provider: RE Fowler Age/Sex: 84/F Location: [facility] [place] Status: Signed HPI HPI History of Present Illness Details: Anne Marie Garza is an 84-year-old female who was admitted to [facility] on December 21, 2019 for a non-ST myocardial infarction. Troponin was elevated to 0.881. She does have a history of previous coronary artery disease with stenting to her RCA. Heart catheterization during hospital stay demonstrated a 95% lesion to her circumflex this was stented. She also has a history of hypertension and hyperlipidemia.Patient was seen in the emergency room on May 26, 2025 for chest discomfort. Troponins were negative. She was asked to follow-up with us in our office to further discuss outpatient workup. Echocardiogram in 2024 demonstrated mild left ventricular hypertrophy with an ejection fraction of 59%. Stage I diastolic dysfunction. Left atrial cavity mildly dilated. Stress test in January 2025 was negative for ischemia In March we had decreased her metoprolol. This did not make a difference. She tells me PCP ordered a calcium score, this was elevated. Pt notes that her SOB is worse than before. She feels that it has worsened. She is on Celebrex for her joint aches. She is also on ASA. She is no longer smoking but she is chewing nicotine gum non stop. Intake Vital Signs 05/26/25 10:12 05/30/25 13:16 05/30/25 14:20 05/30/25 14:48 Height 5 ft 4 in 5 ft 4 in Weight: 177 lb BMI 30.4 BP 77/48 L 73/54 L 80/60 L Blood Pressure Location Lt brachial Lt brachial Position Sitting Standing Respiration 16 16 Pulse 82 93 Pulse Source NIBP NIBP Intake Visit Reasons: S/P [facility] 05/26 Pre Coder Required: No Is patient in pain?: No Allergies iodine Allergy (Severe, Verified 05/30/25 14:00) Angioedema guaifenesin (From Mucinex) Allergy (Mild, Verified 05/30/25 14:00) Other ticagrelor (From Brilinta) Adverse Reaction (Severe, Verified 05/30/25 14:00) Shortness of breath varenicline (From Chantix) Adverse Reaction (Severe, Verified 05/30/25 14:00) Other Medications ???Medication ???Instructions ???Recorded ???Confirmed ???Type aspirin 81 mg chewable tablet 81 mg PO DAILY@0800 heart health 0 05/07/20 05/30/25 History rosuvastatin 5 mg tablet 5 mg PO DAILY cholesterol 05/07/20 05/30/25 History omeprazole 40 mg capsule,delayed 40 mg PO BID 01/29/22 05/30/25 His tory release celecoxib 200 mg capsule (Celebrex) 200 mg PO BID 01/21/24 05/30/25 History duloxetine 30 mg capsule,delayed 30 mg PO QDAY 03/22/25 05/30/25 Hi story release metoprolol succinate 50 mg 50 mg PO DAILY heart #90 tabs 03/0805/30/25 Rx tablet,extended release 24 hr tramadol 50 mg tablet 50 mg PO Q12H Pain Score 1-10 03/0805/30/25 History valsartan 320 mg tablet 320 mg PO QDAY 03/22/25 05/30/25 H istory nitrofurantoin 100 mg PO Q12 #10 CAPSULES 5 05/30/25 Rx monohydrate/macrocryst als 100 mg capsule albuterol sulfate 90 mcg/actuation 2 puff inhalation Q4H PRN History aerosol inhaler amlodipine 10 mg tablet 10 mg PO QDAY 05/30/25 05/30/25 Hi story levothyroxine 137 mcg tablet 137 mcg PO MOTUWETHFR 05/30/25 History (Levoxyl) levothyroxine 137 mcg tablet 68.5 mcg PO SA 05/30/25 05/30/25 H istory (Synthroid) Ejection fraction %: 59 Have you fallen in the past year?: Yes PFSH Medical History Trigger middle finger of left hand Tobacco abuse Personal history of colonic polyps Osteoarthritis Heart attack Graves disease COPD (chronic obstructive pulmonary disease) CAD (coronary artery disease) Left ventricular diastolic dysfunction Chronic diastolic (congestive) heart failure Nicotine dependence Atherosclerosis of coronary artery of [place] heart without angina pectoris History of non-ST [...] and not used how long ago did patie (more content not included)... Normal [facility] Urine Cultureon 05-29-2025 [facility] Copy of report sent to Infection Control Printer [id number] 05/29/25 0749 NANCYNicki. Urine Culture RESULTS CALLED TO TANNER 05/29/25 0798 Bianca Fields. REPORT READ BACK BY SAME. ESBL Escherichia coli Parsons Count >100,000 MARKER ESBL producing OrganismA MARKER ESBL producing OrganismA Amikacin Islt VINCENT 2 S Ampicillin Islt VINCENT >=32 Ampicillin+Sulbac Islt VINCENT 16 I Cefepime Islt VINCENT 16 R Eravacycline Islt VINCENT <=0.12 S cefTRIAXone Islt VINCENT >=64 R Ciprofloxacin Islt VINCENT 0.5 I B-Lactamase Extended Susc Islt POS Gentamicin Islt VINCENT >=16 R Imipenem Islt VINCENT <=0.25 S levoFLOXacin Islt VINCENT 1 I Meropenem Islt VINCENT <=0.25 S Nitrofurantoin Islt VINCENT <=16 S Pip+Tazo Islt VINCENT <=4 S Tobramycin Islt VINCENT 8 R TMP SMX Islt VINCENT >=320 R ESBL Escherichia coli: REACTION Ampicillin Islt VINCENT >=32 R Ampicillin+Sulbac Islt VINCENT 16 Cefepime Islt VINCENT 16 R cefTRIAXone Islt VINCENT >=64 R Ciprofloxacin Islt VINCENT 0.5 I B-Lactamase Extended Susc Islt POS Gentamicin Islt VINCENT >=16 R levoFLOXacin Islt VINCENT 1 I Meropenem Islt VINCENT <=0.25 S Nitrofurantoin Islt VINCENT <=16 S Pip+Tazo Islt VINCENT <=4 S TMP SMX Islt VINCENT >=320 R Normal [facility] Comment on above: Performed By: #### L 503.7505, L100.0100, L500.2500 #### [facility] [address] [place], [address] Absolute lymphocyte countOrd ered By: Mynor Emery on 05-26-2025 Lymphocytes Auto (Unsp spec) [#/Vol] 1.60 10*3/uL 0.83-4.51 [facility] Absolute neutrophil countOrd ered By: Mynor Emery on 05-26-2025 Neutrophils (Bld) [#/Vol] 14.5 10*3/uL High 2.0-7.7 [facility] Anion gap in Serum or Plasma Ordered By: Mynor Yuly on 05-26-2025 Anion gap [Moles/Vol] 15 mmol/L 03-22 [facility] Automated lymphocyte count a s percentage of total leukocytesOrdered By: Mynor Yuly on 05-26-2025 Lymphocytes/100 WBC Auto (Unsp spec) 8.8 % Low [facility] BUN/creatinine ratioOrdered By: Mynor Emery on 05-26-2025 Urea nitrogen/Creatinine [Mass ratio] 19.7 mg/mg 08-27 [facility] Basic Metabolic Profile (BMP )on 05-26-2025 BUN/CRE 19.7 RATIO Normal 08-27 [facility] Comment on above: Performed By: #### L 503.7505, L100.0100, L500.2500 #### [facility] [address] [place], [address] Calcium [Mass/Vol] 9.1 mg/dL Normal 7.6-11.0 [facility] Comment on above: Performed By: #### L 503.7505, L100.0100, L500.2500 #### [facility] [address] [place], [address] Chloride [Moles/Vol] 98 mmol/L Normal 98-108 [facility] Comment on above: Performed By: #### L 503.7505, L100.0100, L500.2500 #### [facility] [address] [place], [address] CO2 [Moles/Vol] 20.7 mmol/L Low 21.0-32.0 [facility] Comment on above: Performed By: #### L 503.7505, L100.0100, L500.2500 #### [facility] [address] [place], [address] Creatinine [Mass/Vol] 1.22 mg/dL High 0.70-1.20 [facility] Comment on above: Performed By: #### L 503.7505, L100.0100, L500.2500 #### [facility] [address] [place], [address] ECRCL 38.27 ml/min Low 50-250 [facility] Comment on above: Performed By: #### L 503.7505, L100.0100, L500.2500 #### [facility] [address] [place], [address] GAP 15 Normal 5-15 [facility] Comment on above: Performed By: #### L 503.7505, L100.0100, L500.2500 #### [facility] [address] [place], [address] GFR/1.73 sq M.predicted among non-blacks MDRD (S/P/Bld) [Vol rate/Area] 44 mL/min/{1.73_m2} Low >60 [facility] Comment on above: Result Comment: mL/m in/1.73m2 CKD-EPI Creatinine Equation (2020) Performed By: #### L 503.7505, L100.0100, L500.2500 #### [facility] [address] [place], [address] Glucose [Mass/Vol] 96 mg/dL Normal 70-99 [facility] Comment on above: Performed By: #### L 503.7505, L100.0100, L500.2500 #### [facility] [address] [place], [address] Potassium [Moles/Vol] 4.7 mmol/L Normal 3.3-5.1 [facility] Comment on above: Result Comment: Hemo lysis present, Results??could be affected. ?? Performed By: #### L 503.7505, L100.0100, L500.2500 #### [facility] [address] [place], [address] Sodium [Moles/Vol] 133 mmol/L Normal 133-145 [facility] Comment on above: Performed By: #### L 503.7505, L100.0100, L500.2500 #### [facility] [address] [place], [address] Urea nitrogen [Mass/Vol] 24 mg/dL High 02-24 [facility] Comment on above: Performed By: #### L 503.7505, L100.0100, L500.2500 #### [facility] [address] [place], [address] Basophil percentageOrdered B y: Mynor Emery on 05-26-2025 Basophils/100 WBC (Bld) 0.2 % 0-1 [facility] Bilirubin Test strip Ql (U)O rdered By: Mynor Emery on 05-26-2025 Bilirubin Ql (U) Negative Negative [facility] CBC W/Diff, Automatedon 05-08 PLT EST A Normal ADEQ [facility] Comment on above: Performed By: #### L 503.7505, L100.0100, L500.2500 #### [facility] [address] [place], [address] CTA Chest W/WO Contraston CTA Chest W/WO Contrast [facility] Imaging Services [address] [facility] [place] [address] CTA Chest W/WO Contrast MR#: [id number] Acct: [id number] Name: ANNE MARIE GARZA Rep #: [id number] : 1940 F 84 From: [facility] PCP: Dr. Max Rodriguez MD Status: REG ER Study: CTA Chest W/WO Contrast Date of Exam: 05/26/25 Exam# [id number] Ordering Dr: Mynor Emery DO PROCEDURE: CTA CHEST W/WO CONTRAST 05/26/2025 REASON FOR EXAM: SOB, ELEVATED DIMER Chest pain TECHNIQUE: CTA CHEST W/WO CONTRAST Multiplanar Sagittal and Coronal images were obtained. CONTRAST: Isovue 370 VOLUME: 95 mL One or more dose reduction techniques were used (e.g., Automated exposure control, adjustment of the mA and/or kV according to patient size, use of iterative reconstruction technique). RADIATION DOSE SUMMARY: CTDlvol: 20.1 mGy DLP: 287.4 mGycm COMPARISON: Chest x-ray dated 12/13/2023 # of known CTs in the past 12 months: 1 # of known Cardiac Nuclear Medicine Studies in the past 12 months: 0 FINDINGS: Thoracic Aorta: Arteriosclerotic vascular disease of the aorta is noted. There is no thoracic aorta dissection or aneurysm. Heart: Heart size and configuration are within normal limits. Pulmonary Vessels: There is no filling defect identified in the main pulmonary arteries are major segmental branches to suggest pulmonary embolus. Hardware: None Lymph nodes: There is no mediastinal, hilar or axillary adenopathy. Lungs and Airways: There are linear densities identified in the lung bases bilaterally most likely representing either atelectasis or parenchymal scarring. There is no consolidative process, mass, pneumonic infiltrate or pneumothorax. There are no pleural effusions. Trachea and mainstem bronchi appear patent Pleura: Unremarkable Upper Abdomen: The visualized portions of the liver, spleen, pancreas, adrenal glands, and kidneys appear unremarkable. Bones: Degenerative changes of the thoracic spine are noted. There is a slight increased kyphotic curvature of the thoracic spine. CT/CTA Chest W/WO Contrast IMPRESSION: No evidence of pulmonary embolus. Atelectasis versus parenchymal scarring lung bases bilaterally. Arteriosclerotic vascular disease of the aorta. Reading Location: [id number] CC: Dr. Max Rodriguez MD; Dr. Mynor Emery DO Museum Attendant: Signed Normal [facility] Carbon dioxide, total [Moles /volume] in Central venous bloodOrdered By: Mynor Emery on 05-26-2025 CO2 [Moles/Vol] 20.7 mmol/L Low 21.0-32.0 [facility] Chloride assayOrdered By: Norman Emery on 05-26-2025 Chloride [Moles/Vol] 98 mmol/L 98-108 [facility] D-Dimer Quantitative (DVT/PE )on 05-26-2025 D-DIMER QUANT 1.20 FEU/ug/m Invalid Interpretation Code 0.27-0.49 [facility] Comment on above: Result Comment: D-Di jacob ELEVATED (>0.49): Additional studies and clinical assessments are indicated to conclude diagnosis of: Deep Vein Thrombosis (DVT) or Pulmonary Embolism (PE) CRITICAL VALUE CALLED TO Silvia GARDNER 05/26/25 1133 Jayleen Haque. RESULTS READ BACK BY SAME. Performed By: #### L 503.7505, L100.0100, L500.2500 #### [facility] [address] [facility] [place], [address] Emergency Department Summary on 05-26-2025 Emergency Department Summary [facility] Medical Records Department [address] [place] [address] Emergency Department Summary 05/26/25 MR#: [id number] Acct: [id number] Name: ANNE MARIE GARZA Rep #: [id number] : 1940 84 From: Myn[facility] Monge PCP: Dr. Max Rodriguez MD Status:DEP ER Location: ED HPI History of Present Illness Chief Complaint: Chest Pain Informant: patient and family Narrative Narrative: Here with daughter reporting 3-month history dyspnea worse with exertion. States cannot breathe. History of coronary disease. Last stenting 5 years ago currently followed by Dr. Rasmussen. She is on aspirin therapy. She reports has had recent stress test pharmacological negative. Echocardiogram. Follow-up with cardiology 2 months ago and medication adjustments metoprolol decreased with amlodipine increased. Blood pressure has been controlled however symptoms has not improved. She is seeing her PCP. She describes calcium scoring test that was done and was told she has been followed by cardiology. They were told to follow-up with the [facility] ball maker however appointment is not till June 11. Symptoms worsened today. Denies recent travel surgeries or immobilizations. No history of PE or DVT. Remote tobacco. Hypertension hyperlipidemia denies diabetes. Prior similar symptoms: Yes [facility] Medical History Trigger middle finger of left hand Tobacco abuse Personal history of colonic polyps Osteoarthritis Heart attack Graves disease COPD (chronic obstructive pulmonary disease) CAD (coronary artery disease) Left ventricular diastolic dysfunction Chronic diastolic (congestive) heart failure Nicotine dependence Atherosclerosis of coronary artery of [place] heart without angina pectoris History of non-ST elevation myocardial infarction (NSTEMI) (12/21/19) Vertigo Essential hypertension Hypothyroidism Anxiety and depression MATT (obstructive sleep apnea) Obesity HLD (hyperlipidemia) Home Medications ???Medication ???Instructions ???Recorded ???Last Taken ???Type aspirin 81 mg chewable tablet 81 mg PO DAILY@0800 heart health 0 05/07/20 05/06/20 History rosuvastatin 5 mg tablet 5 mg PO DAILY cholesterol 05/07/20 05/06/20 History omeprazole 40 mg capsule,delayed 40 mg PO BID 01/29/22 Unknown Hist ory release albuterol sulfate 90 mcg/actuation 2 puff inhalation Q4H #8.5 grams 05/15/22 Unknown Rx aerosol inhaler celecoxib 200 mg capsule (Celebrex) 200 mg PO BID 01/21/24 Unknown History levothyroxine 125 mcg tablet 137 mcg PO DAILY 01/21/24 Unknown History amlodipine 10 mg tablet 5 mg (1/2 x 10 mg) PO DAILY #90 Unknown Rx tabs duloxetine 30 mg capsule,delayed 30 mg PO QDAY 03/22/25 Unknown His tory release metoprolol succinate 50 mg 50 mg PO DAILY heart #90 tabs 03/08 04/01 Unknown Rx tablet,extended release 24 hr tramadol 50 mg tablet 50 mg PO Q12H Pain Score 1-10 03/08 04/01 Unknown History valsartan 320 mg tablet 320 mg PO QDAY 03/22/25 Unknown Hi story cefdinir 300 mg capsule 300 mg PO Q12H #14 caps 05/26/25 U nknown Rx Allergy/AdvReac Type Severity Reaction Status Date / Time iodine Allergy Severe Angioedema Verified 05/26/25 10:46 guaifenesin (From Mucinex) Allergy Mild Other Verified 05/26/25 10:46 ticagrelor (From Brilinta) AdvReac Severe Shortness Verified 05/26/25 10:46 of breath varenicline (From Chantix) AdvReac Severe Other Verified 05/26/25 10:46 Family History Father CAD (coronary artery disease) Prostate cancer Brother Alzheimer's disease Daughter Breast cancer Daughter Breast cancer Surgical History History of coronary artery stent placement (12/21/19) Social History Smoking Status: Former smoker Tobacco: How many years used: 45 Electronic Cigarette Use: with nicotine and not used how long ago did patient quit smokin10/2023 second hand exposure: No alcohol intake: current alcohol intake frequency: a few times a week substance use type: does not use ROS ROS ED Constitutional Constitutional ED: Denies chills, fever(s) or sweats ENT ENT ED: Denies sore throat Cardiovascular Cardiovascular: Reports chest pain; Denies leg edema, palpitations or racing heartbeat Respiratory/Chest Respiratory/Chest: Reports dyspnea and dyspnea on exertion; Denies cough Gastrointestinal Gastrointestinal: Denies abdominal pain, diarrhea, nausea or vomiting Genitourinary Genitourinary ED: Denies dysuria, hematuria or urinary frequency Musculoskeletal Musculoskeletal: Denies back pain, extremity pain or neck pain Integumentary Denies rash or wounds Neurologic Neurologic: Denies headac (more content not included)... Normal [facility] Eosinophil percentageOrdered By: Mynor Emery on 05-26-2025 Eosinophils/100 WBC (Bld) 0.3 % 0-5 [facility] Erythrocyte distribution wid th ratioOrdered By: Mynor Emery on 05-26-2025 Erythrocyte distribution width (RBC) [Ratio] 14.7 % High 11.6-14.6 [facility] Erythrocyte distribution wid th standard deviationOrdered By: Mynor Emery on 05-26-2025 Erythrocyte distribution width (RBC) [Ratio] 45.1 fl High 35.1-43.9 [facility] Glomerular filtration rate ( GFR) estimation/1.73 sq m using serum, plasma, or whole bOrdered By: Mynor Emery on 05-26-2025 GFR/1.73 sq M.predicted among non-blacks MDRD (S/P/Bld) [Vol rate/Area] 44 mL/min/{1.73_m2} Low >60 [facility] Comment on above: mL/min/1.73m2 CKD-EP I Creatinine Equation (2020) Hematocrit Auto (Bld) [Volum e fraction]Ordered By: Mynor Emery on 05-26-2025 Hematocrit (Bld) [Volume fraction] 43.4 % 37-47 [facility] Hemoglobin measurementOrdere d By: Mynor Emery on 05-26-2025 Hemoglobin (Bld) [Mass/Vol] 14.3 g/dL 12.0-15.0 [facility] Immature granulocytes/100 WB C Auto (Bld)Ordered By: Mynor Emery on 05-26-2025 Immature granulocytes/100 WBC (Bld) 0.500 % 0.0-0.9 [facility] Comment on above: IG% - Immature Granu locytes (promyelocytes, myelocytes and metamyelocytes) > 1% indicates that a LEFT SHIFT is Present. Ketones Test strip Ql (U)Ord ered By: Mynor Emery on 05-26-2025 Ketones Ql (U) Negative Negative [facility] L499.0042on 05-26-2025 Trop T High Sen 10 ng/L Normal <=14 [facility] Comment on above: Performed By: #### L 503.7505, L100.0100, L500.2500 #### [facility] [address] [place], [address] L499.0043on 05-26-2025 Trop T High Sen Normal <=14 [facility] Comment on above: Result Comment: LUCIA ENT DISCHARGED Performed By: #### L 499.0043 #### [facility] [address] [place], [address] L501.4021on 05-26-2025 Trop T High Sen 10 ng/L Normal <=14 [facility] Comment on above: Performed By: #### L 503.7505, L100.0100, L500.2500 #### [facility] [address] [place], [address] MCV (mean corpuscular volume ) determinationOrdered By: Mynor Emery on 05-26-2025 MCV (RBC) [Entitic vol] 84.1 fL 81-99 [facility] Mean corpuscular hemoglobin (MCH) determinationOrdered By: Mynor Emery on 05-26-2025 MCH (RBC) [Entitic mass] 27.7 pg 27.0-32.0 [facility] Mean corpuscular hemoglobin concentration (MCHC) determinationOrdered By: Mynor Emrey on 05-26-2025 MCHC (RBC) [Mass/Vol] 32.9 g/dL 32-36 [facility] Mean platelet volume determi nationOrdered By: Mynor Emery on 05-26-2025 Platelet mean volume (Bld) [Entitic vol] 10.9 fL 6.2-12.0 [facility] Microscopic analysis of urin e for red blood cells (RBC)Ordered By: Mynor Emery on 05-26-2025 Microscopic analysis of urine for red blood cells (RBC) 5-10 SEEN /hpf 0-5 [facility] Monocyte percentageOrdered B y: Mynor Emery on 05-26-2025 Monocytes/100 WBC (Bld) 10.3 % High 0-10 [facility] Mucus LM Ql (Urine sed)Order ed By: Mynor Emery on 05-26-2025 Mucus Ql (Urine sed) 0 SEEN /hpf [facility] Neutrophil percentageOrdered By: Mynor Emery on 05-26-2025 Neutrophils/100 WBC (Bld) 79.9 % High 47-70 [facility] Nitrite Test strip Ql (U)Ord ered By: Mynor Emery on 05-26-2025 Nitrite Ql (U) Positive High Negative [facility] Nucleated red blood cell per centageOrdered By: Mynor Emery on 05-26-2025 Nucleated RBC/100 WBC (Bld) [Ratio] 0 % 0-5 [facility] Platelet countOrdered By: Norman Emery on 05-26-2025 Platelets (Bld) [#/Vol] 286 10*3/uL 150-450 [facility] Platelet estimateOrdered By: Mynor Emery on 05-26-2025 Platelets LM Ql (Bld) A ADEQ [facility] Potassium measurement (mass/ volume)Ordered By: Mynor Emery on 05-26-2025 Potassium (Unsp spec) [Mass/Vol] 4.7 mmol/L 3.3-5.1 [facility] Comment on above: Hemolysis present, R esults could be affected. Protein Test strip Ql (U)Ord ered By: Mynor Emery on 05-26-2025 Protein Ql (U) 100 mg/dl High Negative [facility] RBC Auto (Bld) [#/Vol]Ordere d By: Mynor Emery on 05-26-2025 RBC (Bld) [#/Vol] 5.16 10*6/uL 4.2-5.[address] [facility] Serum creatinine measurement (mass/volume)Ordered By: Mynor Emery on 05-26-2025 Creatinine [Mass/Vol] 1.22 mg/dL High 0.70-1.20 [facility] Serum glucose measurement (m ass/volume)Ordered By: Mynor Emery on 05-26-2025 Glucose [Mass/Vol] 96 mg/dL 70-99 [facility] Serum or plasma calcium ajit urement (mass/volume)Ordered By: Mynor Emery on 05-26-2025 Calcium [Mass/Vol] 9.1 mg/dL 7.6-11.0 [facility] Serum or plasma urea nitroge n measurement (mass/volume)Ordered By: Mynor Emery on 05-26-2025 Urea nitrogen [Mass/Vol] 24 mg/dL High 4-19 [facility] Sodium levelOrdered By: Mynor Emery on 05-26-2025 Sodium [Moles/Vol] 133 mmol/L 133-145 [facility] Squamous epithelial cells de tection in urine sediment by light microscopyOrdered By: Mynor Emery on 05-26-2025 Epithelial cells.squamous LM Ql (Urine sed) 0-5 SEEN /hpf 5-10 [facility] Troponin T.cardiac [Mass/vol ume] in Serum or Plasma by High sensitivity methodOrdered By: Mynor Emery on 05-26-2025 Troponin T.cardiac High sensitivity method [Mass/Vol] 10 ng/L <14 [facility] Troponin T.cardiac High sensitivity method [Mass/Vol] 10 ng/L <14 [facility] Urinalysis, Completeon 05-26 BACTERIA 2+ /hpf Normal None Seen [facility] Comment on above: Order Comment: COLLE CTOR TO SPECIFY Performed By: #### L 503.7505, L100.0100, L500.2500 #### [facility] [address] [place], [address] EPI,SQUAMOUS 0-5 SEEN Normal 5-10 [facility] Comment on above: Order Comment: COLLE CTOR TO SPECIFY Performed By: #### L 503.7505, L100.0100, L500.2500 #### [facility] [address] [place], [address] RBC 5-10 SEEN Normal 0-5 [facility] Comment on above: Order Comment: COLLE CTOR TO SPECIFY Performed By: #### L 503.7505, L100.0100, L500.2500 #### [facility] [address] [place], [address] WBC 25-50 SEEN Normal 0-5 [facility] Comment on above: Order Comment: COLLE CTOR TO SPECIFY Performed By: #### L 503.7505, L100.0100, L500.2500 #### [facility] [address] [place], [address] Mucus Ql (Urine sed) 0 SEEN Normal [facility] Comment on above: Order Comment: COLLE CTOR TO SPECIFY Performed By: #### L 503.7505, L100.0100, L500.2500 #### [facility] [address] [place], [address] Urine clarityOrdered By: Gerber Emery on 05-26-2025 Clarity (U) Sl. Cloudy Clear [facility] Urine color determinationOrd ered By: Mynor Emery on 05-26-2025 Color (U) Yellow Yellow [facility] Urine cultureOrdered By: Gerber Emery on 05-26-2025 Bacteria identified Cx Nom (U) ESBL Escherichia coli Abnormal [facility] Urine glucose detectionOrder ed By: Mynor Emery on 05-26-2025 Glucose Ql (U) Normal mg/dl Normal [facility] Urine leukocyte esterase det ection by dipstickOrdered By: Mynor Emery on 05-26-2025 Leukocyte esterase Test strip Ql (U) 100 /ul High Negative [facility] Urine pHOrdered By: Mynor Emery on 05-26-2025 pH (U) 7.0 [pH] 5.0 - 8.0 [facility] Urine sediment bacteria coun t by microscopy (number/high power field)Ordered By: Mynor Emery on 05-26-2025 Bacteria LM.HPF (Urine sed) [#/Area] 2 /[HPF] None Seen [facility] Urine specific gravity measu rementOrdered By: Mynor Emery on 05-26-2025 Specific gravity (U) [Rel density] 1.005 1.002-1.030 [facility] Urine urobilinogen measureme ntOrdered By: Mynor Emery on 05-26-2025 Urobilinogen Ql (U) 1 mg/dl High Normal [facility] White blood cell (WBC) count Ordered By: Mynor Emery on 05-26-2025 WBC (Bld) [#/Vol] 18.2 10*3/uL High 4.4-11.[address] [facility] White blood cell countOrdere d By: Mynor Emery on 05-26-2025 White blood cell count 25-50 SEEN /hpf 0-[address] [facility] [address] CALCIUM SCORING SELF Oh n 05-23-2025 CT CALCIUM SCORING SELF PAY * * *Final Report* * * DATE OF EXAM: May 23 2025 9:47AM ATC 5 - CT CALCIUM SCORING SELF PAY / [...] AORTIC DIMENSIONS: AORTIC ROOT: 3.4 cm measured [id number] mid ASCENDING THORACIC AORTA: 3.2 cm mid [...] TISSUES: degenerative changes of the thoracic spine. Security Dispatcher (topogram) images: No additional findings. IMPRESSION: - Total Coronary Calcium Score (CAC) = 1283 Museum Attendant: MIRIAM Transcribe Date/Time: May 23 2025 10:01A Dictated by : JAYSHREE LAND, This examination was interpreted and the report reviewed and electronically signed by: JAYSHREE LAND, on May 23 2025 10:46AM EST [id number] Normal [facility] CT Heart and Coronary arteri es for calcium scoring WO contraston 05-23-2025 IMPRESSION: - Total Coronary Calcium Score (CAC) = 1283 Museum Attendant: MIRIAM Transcribe Date/Time: May 23 2025 10:01A Dictated by : JAYSHREE LAND, This examination was interpreted and the report reviewed and electronically signed by: JAYSHREE LAND, on May 23 2025 10:46AM EST [facility] * * *Final Report* * [...] AORTIC DIMENSIONS: AORTIC ROOT: 3.4 cm measured [id number] mid ASCENDING THORACIC AORTA: 3.2 cm mid [...] TISSUES: degenerative changes of the thoracic spine. Security Dispatcher (topogram) images: No additional findings. [facility] Provider, [facility] Lonnie monson [place] - 05/23/2025 * * *Final Report* * [...] AORTIC DIMENSIONS: AORTIC ROOT: 3.4 cm measured [id number] mid ASCENDING THORACIC AORTA: 3.2 cm mid [...] TISSUES: degenerative changes of the thoracic spine. Security Dispatcher (topogram) images: No additional findings. IMPRESSION IMPRESSION: - Total Coronary Calcium Score (CAC) = 1283 Museum Attendant: MIRIAM Transcribe Date/Time: May 23 2025 10:01A Dictated by : JAYSHREE LAND, This examination was interpreted and the report reviewed and electronically signed by: JAYSHREE LAND, on May 23 2025 10:46AM EST [facility] Radiology Study observation (narrative) [facility] CT Heart and Coronary arteri es for calcium scoring WO contrastOrdered By: [facility]cf Provider on 05-23-2025 [facility] CNOVon 05-21-2025 CNOV Office Visit (FEDERICAPWS ) ANNE MARIE GARZA ([id number]) 1940 F Date Time Provider Department 05/21/25 [...] hypertension 01/26/2017 Graves disease Heart attack (HCC) [place] stent in heart History of COVID-19 07/08/202205/2022 History of non-ST elevation myocardial infarction (NSTEMI) 01/19/201001/2010 Intradermal nevus 12/30/2014 right inferrior medial breast Keratosis, inflamed seborrheic 12/30/2014 right upper back Left carpal tunnel syndrome 01/04/[address] 12/03/2021 Daughter Truong is DPOA Low vitamin B12 level 04/06/2014 Lumbar radicular pain 05/26/2018 Added automatically from request for surgery [id number] Lump or mass in breast 01/20/2023 Patient [...] Mary Inhibito (more content not included)... Normal [facility] CNOVon 05-18-2025 CNOV Office Visit (FAMPWS ) ANNE MARIE GARZA ([id number]) 1940 F Date Time Provider Department 05/18/25 [...] General (Family Medicine) Nicole Zhang APRN.CNP as Air Quality Specialist (Family Medicine) Dora Whitman PA-C as Air Quality Specialist (Family Medicine) Medical/Family history review Reviewed and [...] hypertension 01/26/2017 Graves disease Heart attack (HCC) [place] stent in heart History of COVID-19 07/08/202205/2022 History of non-ST elevation myocardial infarction (NSTEMI) 01/19/201001/2010 Intradermal nevus 12/30/2014 right inferrior medial breast Keratosis, inflamed seborrheic 12/30/2014 right upper back Left carpal tunnel syndrome 01/04/[address] 12/03/2021 Daughter Truong is DPOA Low vitamin B12 level 04/06/2014 Lumbar radicular pain 05/26/2018 Added automatically from request for surgery [id number] Lump or mass in breast 01/20/2023 Patient declined evaluation with imaging or Tx if it were to be cancer. 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 Has injection on the left Medicare annual wellness visit, jose carlos (more content not included)... Normal [facility] Cardiology Visit Reporton Cardiology Visit Report [facility] [address] [place] [address] OFFICE VISIT Date of Service: 03/22/25 MR#: [id number] Acct: [id number] Name: ANNE MARIE GARZA Rep #: [id number] : 1940 Provider: Dr. Emmett Rasmussen MD Age/Sex: 84/F Location: [facility] Status: Signed HPI HPI History of Present Illness Details: This is a 84-year-old female who presents today for a cardiovascular follow-up visit. She was admitted to [facility] on December 21, 2019 for a [...] Monitor Intake Visit Reasons: 1 Y FU Pre Coder Required: No Accompanied by: Daughter Is patient [...] Nicotine dependence Atherosclerosis of coronary artery of [place] heart without angina pectoris History of non-ST [...] with dis (more content not included)... Normal [facility] CNOVon 02-07-2025 CNOV Office Visit (ORMDNA ) ANNE MARIE GARZA ([id number]) 1940 F Date Time Provider Department 02/07/25 10:40 AM PAPI BELTRAN During your visit today, we recorded the following information about you: Papi Beltran MD 02/07/2025 10:43 AM Signed CONSULT ORTHOPAEDIC: HIP PRIMARY CARE PHYSICIAN: Max Rodriguez MD REFERRING PROVIDER: Papi Beltran [address] [place] [address] ASSESSMENT AND PLAN This is an 84-year-old [...] intermittent. She has done physical therapy through [facility] but continues to have pain with this. [...] Essential H (more content not included)... Normal [facility] XR HIP 3V PELV+ AP/LAT RTon 02-07-2025 XR HIP 3V PELV+ AP/LAT RT * * *Final Report* * * DATE OF EXAM: Feb 07 2025 10:26AM HAMIDA [id number] - XR HIP 3V PELV+ AP/LAT RT / PROCEDURE REASON: [id number] * * * * Physician Interpretation * [...] advanced left hip osteoarthrosis. Bilateral knee osteoarthrosis Museum Attendant: [facility] Transcribe Date/Time: Feb 11 2025 7:07A Dictated by : WOJCIECH PUGA MD This examination was interpreted and the report reviewed and electronically signed by: WOJCIECH PUGA MD on Feb 11 2025 7:10AM EST [id number] [place] [facility]R [facility] XR LEG FRONTL HIP-[facility] * * *Final Report* * * DATE OF EXAM: Feb 07 2025 10:26AM HAMIDA [id number] - XR LEG FRONTL HIP-[facility] / PROCEDURE REASON: [id number] * * * * Physician Interpretation * [...] advanced left hip osteoarthrosis. Bilateral knee osteoarthrosis Museum Attendant: MIRIAM Transcribe Date/Time: Feb 11 2025 7:07A Dictated by : WOJCIECH PUGA MD This examination was interpreted and the report reviewed and electronically signed by: WOJCIECH PUGA MD on Feb 11 2025 7:10AM EST [id number] Normal [facility] Absolute lymphocyte countOrd ered By: Emmett Rasmussen on 02-01-2025 Lymphocytes Auto (Unsp spec) [#/Vol] 1.72 10*3/uL 0.83-4.51 [facility] Absolute neutrophil countOrd ered By: Emmett Grady on 02-01-2025 Neutrophils (Bld) [#/Vol] 7.9 10*3/uL High 2.0-7.7 [facility] Anion gap in Serum or Plasma Ordered By: Emmett Rasmussen on 02-01-2025 Anion gap [Moles/Vol] 10 mmol/L - [facility] Automated lymphocyte count a s percentage of total leukocytesOrdered By: Emmett Rasmussen on 02-01-2025 Lymphocytes/100 WBC Auto (Unsp spec) 15.9 % Low 19-41 [facility] BUN/creatinine ratioOrdered By: Emmett Rasmussen on 02-01-2025 Urea nitrogen/Creatinine [Mass ratio] 15.4 mg/mg 10- [facility] Basic Metabolic Profile (BMP )on 02-01-2025 BUN/CRE 15.4 RATIO Normal - [facility] Comment on above: Performed By: #### L 503.7505, L100.0100, L500.2500 #### [facility] [address] [place], [address] GAP 10 Normal - [facility] Comment on above: Performed By: #### L 503.7505, L100.0100, L500.2500 #### [facility] [address] [place], [address] Basophil percentageOrdered B y: Emmett Rasmussen on 02-01-2025 Basophils/100 WBC (Bld) 0.6 % 0-1 [facility] CBC W/Diff, Automatedon 01-07 Absolute Lymph 1.72 X10 3/uL Normal 0.83-4.51 [facility] Comment on above: Performed By: #### L 503.7505, L100.0100, L500.2500 #### [facility] [address] [place], [address] Absolute Neut 7.9 X10 3/uL High 2.0-7.7 [facility] Comment on above: Performed By: #### L 503.7505, L100.0100, L500.2500 #### [facility] [address] [place], [address] Basophils/100 WBC (Bld) 0.6 % Normal 0-1 [facility] Comment on above: Performed By: #### L 503.7505, L100.0100, L500.2500 #### [facility] [address] [place], [address] Eosinophils/100 WBC (Bld) 3.1 % Normal 0-5 [facility] Comment on above: Performed By: #### L 503.7505, L100.0100, L500.2500 #### [facility] [address] [place], [address] Erythrocyte distribution width (RBC) [Ratio] 14.6 % Normal 11.6-14.6 [facility] Comment on above: Performed By: #### L 503.7505, L100.0100, L500.2500 #### [facility] [address] [place], [address] Hematocrit (Bld) [Volume fraction] 39.4 % Normal 37-47 [facility] Comment on above: Performed By: #### L 503.7505, L100.0100, L500.2500 #### [facility] [address] [place], [address] Hemoglobin (Bld) [Mass/Vol] 12.5 g/dL Normal 12.0-15.0 [facility] Comment on above: Performed By: #### L 503.7505, L100.0100, L500.2500 #### [facility] [address] [place], [address] IG% 0.300 Normal 0.0-0.9 [facility] Comment on above: Result Comment: IG% - Immature Granulocytes (promyelocytes, myelocytes and metamyelocytes) > 1% indicates that a LEFT SHIFT is Present. Performed By: #### L 503.7505, L100.0100, L500.2500 #### [facility] [address] [place], [address] Lymphocytes/100 WBC (Bld) 15.9 % Low 19-41 [facility] Comment on above: Performed By: #### L 503.7505, L100.0100, L500.2500 #### [facility] [address] [place], [address] MCH (RBC) [Entitic mass] 28.2 pg Normal 27.0-32.0 [facility] Comment on above: Performed By: #### L 503.7505, L100.0100, L500.2500 #### [facility] [address] [place], [address] MCHC (RBC) [Mass/Vol] 31.7 g/dL Low 32-36 [facility] Comment on above: Performed By: #### L 503.7505, L100.0100, L500.2500 #### [facility] [address] [place], [address] MCV (RBC) [Entitic vol] 88.9 fL Normal 81-99 [facility] Comment on above: Performed By: #### L 503.7505, L100.0100, L500.2500 #### [facility] [address] [place], [address] Monocytes/100 WBC (Bld) 6.8 % Normal 0-10 [facility] Comment on above: Performed By: #### L 503.7505, L100.0100, L500.2500 #### [facility] [address] [place], [address] Neutrophils/100 WBC (Bld) 73.3 % High 47-70 [facility] Comment on above: Performed By: #### L 503.7505, L100.0100, L500.2500 #### [facility] [address] [place], [address] Nucleated RBC (Bld) [#/Vol] 0 10*3/uL Normal 0-5 [facility] Comment on above: Performed By: #### L 503.7505, L100.0100, L500.2500 #### [facility] [address] [place], [address] Platelet mean volume (Bld) [Entitic vol] 10.7 fL Normal 6.2-12.0 [facility] Comment on above: Performed By: #### L 503.7505, L100.0100, L500.2500 #### [facility] [address] [place], [address] Platelets (Bld) [#/Vol] 298 10*3/uL Normal 150-450 [facility] Comment on above: Performed By: #### L 503.7505, L100.0100, L500.2500 #### [facility] [address] [place], [address] RBC (Bld) [#/Vol] 4.43 10*6/uL Normal 4.2-5.[address] [facility] Comment on above: Performed By: #### L 503.7505, L100.0100, L500.2500 #### [facility] [address] [place], [address] RDW SD 47.0 fl High 35.1-43.9 [facility] Comment on above: Performed By: #### L 503.7505, L100.0100, L500.2500 #### [facility] [address] [place], [address] WBC (Bld) [#/Vol] 10.8 10*3/uL Normal 4.4-11.[address] [facility] Comment on above: Performed By: #### L 503.7505, L100.0100, L500.2500 #### [facility] [address] [place], [address] Carbon dioxide, total [Moles /volume] in Central venous bloodOrdered By: Emmett Grady on 02-01-2025 CO2 [Moles/Vol] 26.3 mmol/L Normal 21.0-32.0 [facility] Comment on above: Performed By: #### L 503.7505, L100.0100, L500.2500 #### [facility] [address] [place], [address] Chloride assayOrdered By: Cy ril Grady on 02-01-2025 Chloride [Moles/Vol] 103 mmol/L Normal 98-108 [facility] Comment on above: Performed By: #### L 503.7505, L100.0100, L500.2500 #### [facility] [address] [place], [address] Eosinophil percentageOrdered By: Emmett Grady on 02-01-2025 Eosinophils/100 WBC (Bld) 3.1 % 0-5 [facility] Erythrocyte distribution wid th ratioOrdered By: Emmett Grady on 02-01-2025 Erythrocyte distribution width (RBC) [Ratio] 14.6 % 11.6-14.6 [facility] Erythrocyte distribution wid th standard deviationOrdered By: Emmett Rasmussen on 02-01-2025 Erythrocyte distribution width (RBC) [Entitic vol] 47.0 fL High 35.1-43.9 [facility] Erythrocyte distribution width (RBC) [Ratio] 47.0 fl High 35.1-43.9 [facility] GFR/1.73 sq M.predicted jaime g non-blacks MDRD (S/P/Bld) [Vol rate/Area]Ordered By: Emmett Rasmussen on 02-01-2025 Estimated GFR (MDRD) Non-Af Amer 49 Low >60 [facility] Comment on above: mL/min/1.73m2 CKD-EP I Creatinine Equation (2020) Glomerular filtration rate ( GFR) estimation/1.73 sq m using serum, plasma, or whole bOrdered By: Emmett Rasmussen on 02-01-2025 GFR/1.73 sq M.predicted among non-blacks MDRD (S/P/Bld) [Vol rate/Area] 49 mL/min/{1.73_m2} Low >60 [facility] Comment on above: mL/min/1.73m2 CKD-EP I Creatinine Equation (2020) Result Comment: mL/m in/1.73m2 CKD-EPI Creatinine Equation (2020) Performed By: #### L 503.7505, L100.0100, L500.2500 #### [facility] [address] [place] [address], [address] Hematocrit Auto (Bld) [Volum e fraction]Ordered By: Emmett Rasmussen on 02-01-2025 Hematocrit (Bld) [Volume fraction] 39.4 % 37-47 [facility] Hemoglobin measurementOrdere d By: Emmett Rasmussen on 02-01-2025 Hemoglobin (Bld) [Mass/Vol] 12.5 g/dL 12.0-15.0 [facility] Immature granulocytes/100 WB C Auto (Bld)Ordered By: Emmett Rasmussen on 02-01-2025 Immature granulocytes/100 WBC (Bld) 0.300 % 0.0-0.9 [facility] Comment on above: IG% - Immature Granu locytes (promyelocytes, myelocytes and metamyelocytes) > 1% indicates that a LEFT SHIFT is Present. L503.7505on 02-01-2025 Natriuretic peptide B (Bld) [Mass/Vol] 1039 pg/mL Normal <=1800 [facility] Comment on above: Result Comment: Hear t Failure Unlikely: < 300 pg/mL Heart Failure Likely < 50 Years: > 450 pg/mL 50-75 Years: > 900 pg/mL >75 Years: > 1800 pg/mL Performed By: #### L 503.7505, L100.0100, L500.2500 #### [facility] [address] [place], [place], [address] Laboratory - Chemistry and C hemistry - challengeOrdered By: Emmett Rasmussen on 02-01-2025 Natriuretic peptide B (Bld) [Mass/Vol] 1039 pg/mL <1800 [facility] Comment on above: Heart Failure Unlike ly: < 300 pg/mLHeart Failure Likely< 50 Years: > 450 pg/mL50-75 Years: > 900 pg/mL>75 Years: > 1800 pg/mL Lymphocytes Auto (Unsp spec) [#/Vol]Ordered By: Emmett Rasmussen on 02-01-2025 Lymphocytes (Bld) [#/Vol] 1.72 10*3/uL 0.83-4.51 [facility] Lymphocytes/100 WBC Auto (Un sp spec)Ordered By: Emmett Rasmussen on 02-01-2025 Lymphocytes/100 WBC (Bld) 15.9 % Low 19-41 [facility] MCV (mean corpuscular volume ) determinationOrdered By: Emmett Rasmussen on 02-01-2025 MCV (RBC) [Entitic vol] 88.9 fL 81-99 [facility] Mean corpuscular hemoglobin (MCH) determinationOrdered By: Emmett Rasmussen on 02-01-2025 MCH (RBC) [Entitic mass] 28.2 pg 27.0-32.0 [facility] Mean corpuscular hemoglobin concentration (MCHC) determinationOrdered By: Emmett Rasmussen on 02-01-2025 MCHC (RBC) [Mass/Vol] 31.7 g/dL Low 32-36 [facility] Mean platelet volume determi nationOrdered By: Millerton Grady on 02-01-2025 Platelet mean volume (Bld) [Entitic vol] 10.7 fL 6.2-12.0 [facility] Monocyte percentageOrdered B y: Millerton Grady on 02-01-2025 Monocytes/100 WBC (Bld) 6.8 % 0-10 [facility] Neutrophil percentageOrdered By: Emmett Grady on 02-01-2025 Neutrophils/100 WBC (Bld) 73.3 % High 47-70 [facility] Nucleated red blood cell per centageOrdered By: Millerton Grady on 02-01-2025 Nucleated RBC/100 WBC (Bld) [Ratio] 0 % 0-5 [facility] Platelet countOrdered By: Cy ril Grady on 02-01-2025 Platelets (Bld) [#/Vol] 298 10*3/uL 150-450 [facility] Potassium measurement (mass/ volume)Ordered By: Millerton Grady on 02-01-2025 Potassium (Unsp spec) [Mass/Vol] 4.7 mmol/L 3.3-5.1 [facility] Potassium [Moles/Vol] 4.7 mmol/L Normal 3.3-5.1 [facility] Comment on above: Performed By: #### L 503.7505, L100.0100, L500.2500 #### [facility] [address] [place], [place], [address] RBC Auto (Bld) [#/Vol]Ordere d By: Emmett Grady on 02-01-2025 RBC (Bld) [#/Vol] 4.43 10*6/uL 4.2-5.[address] [facility] Serum creatinine measurement (mass/volume)Ordered By: Millerton Grady on 02-01-2025 Creatinine [Mass/Vol] 1.12 mg/dL Normal 0.70-1.20 [facility] Comment on above: Performed By: #### L 503.7505, L100.0100, L500.2500 #### [facility] [address] [place], [address] Serum glucose measurement (m ass/volume)Ordered By: Emmett Rasmussen on 02-01-2025 Glucose [Mass/Vol] 62 mg/dL Low 70-99 [facility] Comment on above: Performed By: #### L 503.7505, L100.0100, L500.2500 #### [facility] [address] [place], [address] Serum or plasma calcium ajit urement (mass/volume)Ordered By: Emmett [facility] on 02-01-2025 Calcium [Mass/Vol] 8.2 mg/dL Normal 7.6-11.0 [facility] Comment on above: Performed By: #### L 503.7505, L100.0100, L500.2500 #### [facility] [address] [place], [address] Serum or plasma urea nitroge n measurement (mass/volume)Ordered [facility]: [facility] on 02-01-2025 Urea nitrogen [Mass/Vol] 17 mg/dL Normal 4-19 [facility] Comment on above: Performed By: #### L 503.7505, L100.0100, L500.2500 #### [facility] [address] [place], [address] Sodium levelOrdered By: Gina Rasmussen on 02-01-2025 Sodium [Moles/Vol] 139 mmol/L Normal 133-145 [facility] Comment on above: Performed By: #### L 503.7505, L100.0100, L500.2500 #### [facility] [address] [place], [address] White blood cell (WBC) count Ordered By: Emmett [facility] on 02-01-2025 WBC (Bld) [#/Vol] 10.8 10*3/uL 4.4-11.0 [facility] Office Visit (FAMPWS ) ANNE MARIE GARZA ([id number]) 1940 F Date Time Provider Department 01/26/25 10:00 AM MAX RODRIGUEZ During your visit today, we recorded the following information about you: Pulse Respiration Blood pressure Weight 54/minute 18/minute 130/60 78.9 kg Max Rodriguez MD 01/26/2025 12:22 PM Signed Chief [...] hypertension 01/26/2017 Graves disease Heart attack (HCC) [place] stent in heart History of COVID-19 07/08/202205/2022 History of non-ST elevation myocardial infarction (NSTEMI) 01/19/201001/2010 Intradermal nevus 12/30/2014 right inferrior medial breast Keratosis, inflamed seborrheic 12/30/2014 right upper back Left carpal tunnel syndrome 01/04/[address] 12/03/2021 Daughter Truong is DPOA Low vitamin B12 level 04/06/2014 Lumbar radicular pain 05/26/2018 Added automatically from request for surgery [id number] Lump or mass in breast 01/20/2023 Patient [...] disease (HCC) (more content not included)... Normal [facility] ECHOon 01-26-2025 Echocardiography Echocardiography Report: Transthoracic Echo [facility] Date of service: 01/26/2025 7:52:57 AM DIE MAKER Ordering physician: MAX RODRIGUEZ Indication: Shortness of Breath Technologist: Edwige Mccauley [facility] Interpreting physician: César Lowe DO PATIENT: Name: MS. ANNE MARIE GARZA : 1940 Age: 84 years Gender: F [...] * * * Final * * * [employer] [facility] : [id number] Normal [facility] ([id number]) 1940 F Date Time Provider Department 01/25/25 [facility] visit today, we recorded the following information about you: Orly Richardson LPN 01/25/2025 8:06 AM Signed Received results of pt's stress test done at [facility] ordered by PCP. Orly Richardson LPN [...] hip [Z96 (more content not included)... Normal [facility] Cardiovascular stress test r eportOrdered By: Emmett Rasmussen on 01-24-2025 Study report [facility] [address] [place] [address] MR#: [id number] Acct: [id number] Name: ANNE MARIE GARZA Rep #: [id number] : 1940 84 From: Emmett Rasmussen MD [...] ~ Date Dictated: 01/24/251803 Date Transcribed: 01/24/251803 Museum Attendant: [place] Signed [facility] Work Phone: Stress Reporton 01-24-2025 Stress Report [facility] [address] [place] [address] MR#: [id number] Acct: [id number] Name: ANNE MARIE GARZA Rep #: [id number] : 1940 84 From: Emmett Rasmussen MD [...] MD Date Dictated: 01/24/251803 Date Transcribed: 01/24/251803 Museum Attendant: [place] Signed [facility] CNOVon 01-22-2025 [facility] Office Visit (PULMWS ) ANNE MARIE GARZA ([id number]) 1940 F Date Time Provider Department 01/22/25 12:45 PM ANGELA HAINES PULMWS During your visit today, we recorded the following information about you: Pulse Respiration Blood pressure Weight 60/minute 15/minute 136/62 79.8 kg Height 1.621 m Angela Haines MD 01/22/2025 2:10 PM Signed . Respiratory [place] Note Patient name: Anne Marie Garza PCP: Max Rodriguez MD Referring Physician: Same Consultation requested by Dr. Rodriguez for an opinion regarding dyspnea and cough. My final recommendations will be communicated back to the requesting physician by way of shared Medical record or letter to requesting physician via [place] mail. CC: cough/SOB HPI: Anne Marie Garza 84 year old female former greater than 23-vuhb-tgca smoker quitting in 2021, nicotine vaping until [...] View (Portable) Date of Exam: 12/13/23 Exam# [id number] Ordering Dr: Flavio Echavarria [place] [id number] STUDY: X-RAY CHEST REASON FOR EXAM: Female, [...] rich plaque (more content not included)... Normal [facility] No Panel Informationon 01-22 [facility] [address] [facility], [place] [address] Test Date: 2025-01-22 Pat Name: ANNE MARIE GARZA Department: Room: Gender: Female Senior Sales Representative: : 1940 Requested By: Order Number: [id number] Reading MD: Angela Haines MD Interpretive Statements [...] by Angela Haines MD Site: WO ID: [id number] Name: ANNE MARIE GARZA Visit Date: 01/22/2025 Doctor: Senior Sales Representative: Kenisha Bowens Age: 84 Date of : [...] FEF75 (L/sec) 0.31 0.10 0.96 0.33 108 NLW12-40 (L/sec) 1.45 0.58 2.79 1.04 71 FEF [...] 11.25 IVC (L) 2.51 PULMONARY FUNCTION LAB [facility] SPIROMETRY WITH DILATOR IF O BSTRUCTEDon 01-22-2025 DLCO (ml/min/mmHg) 14.47 ml/min/mmHg [facility] DLCO LLN (ml/min/mmHg) 12.75 ml/min/mmHg C [facility] DLCO PREDICTED (ml/min/mmHg) 18.92 ml/min/mmHg [facility] DLCO ULN (ml/min/mmHg) 25.09 ml/min/mmHg C [facility] DLCO/VA (ml/min/mmHg/L) 0.03 ml/m in/mmHg/ L [facility] DLCO/VA PREDICTED (ml/min/mmHg/L) 0.04 ml/min/mmHg/ L [facility] DLCO/VAcor (ml/min/mmHg/L) 0.03 ml/min/mmHg/ L [facility] DLCOcor (ml/min/mmHg) 14.24 ml/min/mmHg Cl [facility] DLCOcor PREDICTED (ml/min/mmHg) 18.92 ml/min/mmHg [facility] ERV PREDICTED (L) 0.82 L/S [facility] FEF25% PRE (L/S) 4.58 L/S [facility] MKO65-86% LLN (L/S) 0.58 L/S [facility] POO37-28% PRE (L/S) 1.04 L/S [facility] AVD65-71% PREDICTED (L/S) 1.45 L/S [facility] FEF75% LLN (L/S) 0.1 L/S [facility] FEF75% PRE (L/S0 0.33 L/S [facility] FEF75% PREDICTED (L/S) 0.31 L/S Cl [facility] FEF75% ULN (L/S) 0.96 L/S [facility] FET PRE (S) 9.61 S [facility] FEV1 LLN (L) 1.25 L [facility] FEV1 PRE (L) 1.88 L [facility] FEV1 PREDICTED (L) 1.87 L [facility] FEV1 ULN (L) 2.44 L [facility] FEV1/FVC LLN (%) 64 % [facility] FEV1/FVC PRE (%) 69 % [facility] FEV1/FVC PREDICTED (%) 78 % Cl [facility] FVC LLN (L) 1.69 L [facility] FVC PRE (L) 2.74 L [facility] FVC PREDICTED (L) 2.47 L [facility] FVC ULN (L) 3.28 L [facility] IC PREDICTED (L) 1.65 L/S [facility] PEF LLN (L/S) 2.7 L/S [facility] PEF PRE (L/S) 4.75 L/S [facility] PEF ULN (L/S) 6.1 L/S [facility] SVC LLN (L) 1.69 L/S [facility] SVC PREDICTED (L) 2.47 L/S [facility] SVC ULN (L) 3.28 L/S [facility] VA (L) 4.32 L [facility] VA PREDICTED (L) 5.03 L [facility] CBC W Auto Differential pane l (Bld)on 01-19-2025 Basophils (Bld) [#/Vol] 0.08 10*3/uL Normal <0.11 [facility] Comment on above: Order Comment: Speci men Type: BLOOD SPECIMENOrdering Facility: [facility] Address: [address] [place] [address] Performed By: #### 5 7021-8 ####[facility] LABCLIA [id number] [place] [address] [place] Basophils/100 WBC (Bld) 1.0 % Normal [facility] Comment on above: Order Comment: Speci men Type: BLOOD SPECIMENOrdering Facility: [facility] Address: [address] [place] [address] Performed By: #### 5 7021-8 ####[facility] LABCLIA [id number] [place] [address] [place] Differential cell count method Nom (Bld) Auto Normal [facility] Comment on above: Order Comment: Speci men Type: BLOOD SPECIMENOrdering Facility: [facility] Address: [address] [place] [address] Performed By: #### 5 7021-8 ####[facility] LABCLIA [id number] [place] [address] [place] Eosinophils (Bld) [#/Vol] 0.35 10*3/uL Normal <0.46 [facility] Comment on above: Order Comment: Speci men Type: BLOOD SPECIMENOrdering Facility: [facility] Address: [address] [place] [address] Performed By: #### 5 7021-8 ####[facility] LABCLIA [id number] [place] [address] [place] Eosinophils/100 WBC (Bld) 4.5 % Normal [facility] Comment on above: Order Comment: Speci men Type: BLOOD SPECIMENOrdering Facility: [facility] Address: [address] [place] [address] Performed By: #### 5 7021-8 ####[facility] LABCLIA [id number] [place] [address] [place] Erythrocyte distribution width (RBC) [Ratio] 13.8 % Normal 11.5-15.0 [facility] Comment on above: Order Comment: Speci men Type: BLOOD SPECIMENOrdering Facility: [facility] Address: [address] [place] [address] Performed By: #### 5 7021-8 ####[facility] LABCLIA [id number] [place] [address] [place] Hematocrit (Bld) [Volume fraction] 40.8 % Normal 36.0-46.0 [facility] Comment on above: Order Comment: Speci men Type: BLOOD SPECIMENOrdering Facility: [facility] Address: [address] [place] [address] Performed By: #### 5 7021-8 ####[facility] LABCLIA [id number] [place] [address] [place] Hemoglobin (Bld) [Mass/Vol] 12.8 g/dL Normal 11.5-15.5 [facility] Comment on above: Order Comment: Speci men Type: BLOOD SPECIMENOrdering Facility: [facility] Address: [address] [place] [address] Performed By: #### 5 7021-8 ####[facility] LABCLIA [id number] [place] [address] [place] Immature granulocytes (Bld) [#/Vol] 10*3/uL Normal <0.10 [facility] Comment on above: Order Comment: Speci men Type: BLOOD SPECIMENOrdering Facility: [facility] Address: [address] [place] [address] Performed By: #### 5 7021-8 ####[facility] LABCLIA [id number] [place] [address] [place] Immature granulocytes/100 WBC (Bld) 0.3 % Normal [facility] Comment on above: Order Comment: Speci men Type: BLOOD SPECIMENOrdering Facility: [facility] Address: [address] [place] [address] Performed By: #### 5 7021-8 ####[facility] LABCLIA [id number] [place] [address] [place] Lymphocytes (Bld) [#/Vol] 1.79 10*3/uL Normal 1.00-4.00 [facility] Comment on above: Order Comment: Speci men Type: BLOOD SPECIMENOrdering Facility: [facility] Address: [address] [place] [address] Performed By: #### 5 7021-8 ####[facility] LABIA [id number] [place] [address] [place] Lymphocytes/100 WBC (Bld) 23.1 % Normal [facility] Comment on above: Order Comment: Speci men Type: BLOOD SPECIMENOrdering Facility: [facility] Address: [address] [place] [address] Performed By: #### 5 7021-8 ####[facility] LABIA [id number] [place] [address] [place] MCH (RBC) [Entitic mass] 28.0 pg Normal 26.0-34.0 [facility] Comment on above: Order Comment: Speci men Type: BLOOD SPECIMENOrdering Facility: [facility] Address: [address] [place] [address] Performed By: #### 5 7021-8 ####[facility] LABIA [id number] [place] [address] [place] MCHC (RBC) [Mass/Vol] 31.4 g/dL Normal 30.5-36.0 [facility] Comment on above: Order Comment: Speci men Type: BLOOD SPECIMENOrdering Facility: [facility] Address: [address] [place] [address] Performed By: #### 5 7021-8 ####[facility] LABIA [id number] [place] [address] [place] MCV (RBC) [Entitic vol] 89.3 fL Normal 80.0-100.0 [facility] Comment on above: Order Comment: Speci men Type: BLOOD SPECIMENOrdering Facility: [facility] Address: [address] [place] [address] Performed By: #### 5 7021-8 ####[facility] LABCLIA [id number] [facility] [address] [place] [address] [place] Monocytes (Bld) [#/Vol] 0.75 10*3/uL Normal <0.87 [facility] Comment on above: Order Comment: Speci men Type: BLOOD SPECIMENOrdering Facility: [facility] Address: [address] [place] [address] Performed By: #### 5 7021-8 ####[facility] LABCLIA [id number] [facility] [address], [place] [address] [place] Monocytes/100 WBC (Bld) 9.7 % Normal [facility] Comment on above: Order Comment: Speci men Type: BLOOD SPECIMENOrdering Facility: [facility] Address: [address] [place] [address] Performed By: #### 5 7021-8 ####[facility] LABCLIA [id number] [facility] [place] [address] [place] Neutrophils (Bld) [#/Vol] 4.76 10*3/uL Normal 1.45-7.50 [facility] Comment on above: Order Comment: Speci men Type: BLOOD SPECIMENOrdering Facility: [facility] Address: [address] [place] [address] Performed By: #### 5 7021-8 ####[facility] LABCLIA [id number] [facility] [place] [address] [place] Neutrophils/100 WBC (Bld) 61.4 % Normal [facility] Comment on above: Order Comment: Speci men Type: BLOOD SPECIMENOrdering Facility: [facility] Address: [address] [place] [address] Performed By: #### 5 7021-8 ####[facility] LABCLIA [id number] [facility] [place] [id number] [place] Nucleated RBC (Bld) [#/Vol] 10*3/uL Normal <0.01 [facility] Comment on above: Order Comment: Speci men Type: BLOOD SPECIMENOrdering Facility: [facility] Address: [address] [place] [address] Performed By: #### 5 7021-8 ####[facility] LABIA [id number] [address] [address] [place] Nucleated RBC/100 WBC (Bld) [Ratio] 0.0 /100 WBC Normal [facility] Comment on above: Order Comment: Speci men Type: BLOOD SPECIMENOrdering Facility: [facility] Address: [address] [place] [address] Performed By: #### 5 7021-8 ####[facility] LABCLIA [id number] [address] [address] [place] Platelet mean volume (Bld) [Entitic vol] 10.9 fL Normal 9.0-12.7 [facility] Comment on above: Order Comment: Speci men Type: BLOOD SPECIMENOrdering Facility: [facility] Address: [address] [place] [address] Performed By: #### 5 7021-8 ####[facility] LABIA [id number] [place] [address] [place] Platelets (Bld) [#/Vol] 369 10*3/uL Normal 150-400 [facility] Comment on above: Order Comment: Speci men Type: BLOOD SPECIMENOrdering Facility: [facility] Address: [address] [place] [address] Performed By: #### 5 7021-8 ####[facility] LABIA [id number] [place] [id number] [place] RBC (Bld) [#/Vol] 4.57 10*6/uL Normal 3.90-5.20 [facility] Comment on above: Order Comment: Speci men Type: BLOOD SPECIMENOrdering Facility: [facility] Address: [address] [place] [address] Performed By: #### 5 7021-8 ####[facility] LABCLIA [id number] [place] [id number] [place] WBC (Bld) [#/Vol] 7.75 10*3/uL Normal 3.70-11.00 [facility] Comment on above: Order Comment: Speci men Type: BLOOD SPECIMENOrdering Facility: [facility] Address: [address] [place] [id number] Performed By: #### 5 7021-8 ####[facility] LABCLIA [id number] [place] [id number] [facility] [place] CNOVon 01-19-2025 [facility] ANNE MARIE GARZA ([id number]) 1940 F Date Time Provider Department 01/19/25 9:00 AM [facility] During your visit today, we recorded [...] esophagitis 07/08/2022 Graves disease Heart attack (HCC) [place] stent in heart History of COVID-19 07/08/202205/2022 History of non-ST elevation myocardial infarction (NSTEMI) 01/19/201001/2010 Intradermal nevus 12/30/2014 right inferrior medial breast Keratosis, inflamed seborrheic 12/30/2014 right upper back Left carpal tunnel syndrome 01/04/[address] 12/03/2021 Daughter Truong is DPOA Low vitamin B12 level 04/06/2014 Lumbar radicular pain 05/26/2018 Added automatically from request for surgery [id number] Lump or mass in breast 01/20/2023 Patient [...] Change dizzine (more content not included)... Normal [facility] Comprehensive metabolic 2000 panelon 01-19-2025 Albumin [Mass/Vol] 3.8 g/dL Low 3.9-4.9 [facility] Comment on above: Order Comment: Speci men Type: BLOOD SPECIMENOrdering Facility: [facility] Address: [address] [place] [address] Performed By: #### 3 016-3, 73412-3, LIPNF, 98375-2 ####[facility] LABCLIA [id number] [place] [id number] [place] ALP [Catalytic activity/Vol] 59 U/L Normal 34-123 [facility] Comment on above: Order Comment: Speci men Type: BLOOD SPECIMENOrdering Facility: [facility] Address: [address] [place] [address] Performed By: #### 3 016-3, 08082-0, LIPNF, 20150-3 ####[facility] LABIA [id number] [place] [address] [place] ALT [Catalytic activity/Vol] 11 U/L Normal 7-38 [facility] Comment on above: Order Comment: Speci men Type: BLOOD SPECIMENOrdering Facility: [facility] Address: [address] [place] [address] Performed By: #### 3 016-3, 67874-6, LIPNF, 16966-1 ####[facility] LABIA [id number] [place] [address] [place] Anion gap [Moles/Vol] 11 mmol/L Normal 8-15 [facility] Comment on above: Order Comment: Speci men Type: BLOOD SPECIMENOrdering Facility: [facility] Address: [address] [place] [address] Performed By: #### 3 016-3, 89083-0, LIPNF, 26337-5 ####[facility] LABIA [id number] [place] [id number] [place] AST [Catalytic activity/Vol] 17 U/L Normal 13-35 [facility] Comment on above: Order Comment: Speci men Type: BLOOD SPECIMENOrdering Facility: [facility] Address: [address] [place] [address] Performed By: #### 3 016-3, 53868-4, LIPNF, ####[facility] LABCLIA [id number] [address] [address] [place] Bilirubin [Mass/Vol] 0.4 mg/dL Normal 0.2-1.3 [facility] Comment on above: Order Comment: Speci men Type: BLOOD SPECIMENOrdering Facility: [facility] Address: [address] [place] [address] Performed By: #### 3 016-3, 11882-5, LIPNF, ####[facility] LABCLIA [id number] [place] [id number] [place] Calcium [Mass/Vol] 9.5 mg/dL Normal 8.5-10.2 [facility] Comment on above: Order Comment: Speci men Type: BLOOD SPECIMENOrdering Facility: [facility] Address: [address] [place] [address] Performed By: #### 3 016-3, 68759-6, LIPNF, ####[facility] LABCLIA [id number] [place] [address] [place] Chloride [Moles/Vol] 100 mmol/L Normal 98-107 [facility] Comment on above: Order Comment: Speci men Type: BLOOD SPECIMENOrdering Facility: [facility] Address: [address] [place] [address] Performed By: #### 3 016-3, 45754-7, LIPNF, ####[facility] LABCLIA [id number] [address] [address] [place] CO2 [Moles/Vol] 27 mmol/L Normal 22-30 [facility] Comment on above: Order Comment: Speci men Type: BLOOD SPECIMENOrdering Facility: [facility] Address: [address] [place] [address] Performed By: #### 3 016-3, 61307-4, LIPNF, ####[facility] LABCLIA [id number] [place] [address] [place] Creatinine [Mass/Vol] 1.10 mg/dL High 0.58-0.96 [facility] Comment on above: Order Comment: Hermelinda peterson Type: BLOOD SPECIMENOrdering Facility: [facility] Address: [address] [place] [address] Performed By: #### 3 016-3, 96229-2, KAREN, ####[facility] LABIA [id number] [place] [address] [place] Creatinine and Glomerular filtration rate.predicted panel (S/P/Bld) 50 mL/min/1.73m??? Low >=60 [facility] Comment on above: Order Comment: Hermelinda peterson Type: BLOOD SPECIMENOrdering Facility: [facility] Address: [address] [place] [address] Result Comment: Josi mated Glomerular Filtration Rate [...] accurately reflect actual GFR. Performed By: #### 3 016-3, 82693-5, KAREN, 85796-5 ####[facility] LABIA [id number] [place] [id number] [place] Glucose [Mass/Vol] 92 mg/dL Normal 74-99 [facility] Comment on above: Order Comment: Hermelinda peterson Type: BLOOD SPECIMENOrdering Facility: [facility] Address: [address] [place] [address] Result Comment: The [place] Diabetes Association (ADA) provides guidance for cutoff [...] Standards of Medical Care in Diabetes 2016, [place] [employer] Association. Diabetes Care. 2016.39(Suppl 1). Performed By: #### 3 016-3, 95451-7, LIPBOZENA, ####[facility] LABCLIA [id number] [place] [address] [place] Potassium [Moles/Vol] 4.5 mmol/L Normal 3.7-5.1 [facility] Comment on above: Order Comment: Speci men Type: BLOOD SPECIMENOrdering Facility: [facility] Address: [address] [place] [address] Performed By: #### 3 -3, 12473-0, LIPBOZENA, ####[facility] LABCLIA [id number] [place] [address] [place] Protein [Mass/Vol] 7.5 g/dL Normal 6.3-8.0 [facility] Comment on above: Order Comment: Speci men Type: BLOOD SPECIMENOrdering Facility: [facility] Address: [address] [place] [address] Performed By: #### 3 -3, 05757-2, LIPNF, ####[facility] LABCLIA [id number] [place] [address] [place] Sodium [Moles/Vol] 138 mmol/L Normal 136-144 [facility] Comment on above: Order Comment: Speci men Type: BLOOD SPECIMENOrdering Facility: [facility] Address: [address] [place] [address] Performed By: #### 3 016-3, 44798-5, LIPNF, 24280-3 ####[facility] LABCLIA [id number] [address] [address] [place] Urea nitrogen [Mass/Vol] 28 mg/dL High 7-21 [facility] Comment on above: Order Comment: Hermelinda peterson Type: BLOOD SPECIMENOrdering Facility: [facility] Address: [address] [place] [address] Performed By: #### 3 016-3, 59613-3, LIPNF, 99320-9 ####[facility] LABCLIA [id number] [place] [id number] [place] HbA1c (Bld)on 01-19-2025 Average glucose Estimated from glycated hemoglobin (Bld) [Mass/Vol] 117 mg/dL Normal [facility] Comment on above: Order Comment: Hermelinda peterson Type: BLOOD SPECIMENOrdering Facility: [facility] Address: [address] [place] [address] Result Comment: eAG: (Estimated average glucose) is a calculated value from HgbA1c and is community health program representative of the average blood glucose level in the last 2-3 month period. Performed By: #### 5 5454-3 ####[facility] LABCLIA [id number] [place] [address] [place] HbA1c (Bld) [Mass fraction] 5.7 % High 4.3-5.6 [facility] Comment on above: Order Comment: Hermelinda peterson Type: BLOOD SPECIMENOrdering Facility: [facility] Address: [address] [place] [address] Result Comment: [place] Diabetes Association guidelines indicate that patients with HgbA1c in the range 5.7-6.4% are at increased risk for development of diabetes, and intervention by lifestyle modification may be beneficial. HgbA1c greater or equal to 6.5% is considered diagnostic of diabetes. Performed By: #### 5 5454-3 ####[facility] LABCLIA [id number] [address] [address] [place] LIPID PANEL, NONFASTINGon Cholesterol [Mass/Vol] 158 mg/dL Normal <200 [facility] Comment on above: Order Comment: Speci men Type: BLOOD SPECIMENOrdering Facility: [facility] Address: [address] [place] [address] Result Comment: <200 mg/dL, Desirable 200-239 mg/dL, Borderline high >239 mg/dL, High Performed By: #### 3 016-3, 06554-1, LIPNF, ####[facility] LABCLIA [id number] [facility] [id number] [place] [address] [place] HDL CHOLESTEROL, NF 51 mg/dL Normal >39 [facility] Comment on above: Order Comment: Speci men Type: BLOOD SPECIMENOrdering Facility: [facility] Address: [address] [place] [address] Result Comment: 40-5 9 mg/dL, Acceptable >59 mg/dL, High: Negative risk factor for coronary heart disease <40 mg/dL, Low: Positive risk factor for coronary heart disease Performed By: #### 3 016-3, 23926-0, LIPNF, ####[facility] LABCLIA [id number] [facility] [id number] [place] [address] [place] [facility] LDL CHOLESTEROL, NF 88 mg/dL Normal <100 [facility] Comment on above: Order Comment: Speci men Type: BLOOD SPECIMENOrdering Facility: [facility] Address: [address] [place] [address] Result Comment: <100 mg/dL, Optimal 100-129 mg/dL, Near optimal/above optimal 130-159 mg/dL, Borderline high 160-189 mg/dL, High >189 mg/dL, Very high Secondary prevention optimal LDL Cholesterol levels are recommended to be < 70 mg/dL Performed By: #### 3 016-3, 74906-8, LIPNF, 82887-8 ####[facility] LABCLIA [id number] [facility] [id number], [facility]95 [place] LDL/HDL RATIO, NF 1.73 mg/dL Normal <2.54 [facility] Comment on above: Order Comment: Speci men Type: BLOOD SPECIMENOrdering Facility: [facility] Address: [address] [place] [address] Result Comment: Yair child: 1. National Cholesterol Education Program ATP III Guideline At-A-Glance Quick Desk Reference: National Heart, Lung, and Blood [place]. National Institutes of Health. 2001: NIH Publication No. 01-3305. 2. An International Atherosclerosis Society position paper: global recommendations for the management of dyslipidemia: executive summary, Atherosclerosis. 2014: 232(2):410-413. Performed By: #### 3 016-3, 64540-1, LIPNF, ####[facility] LABCLIA [id number] [place] [id number] [place] NON HDL CHOL, NF 107 mg/dL Normal <130 [facility] Comment on above: Order Comment: Danayi men Type: BLOOD SPECIMENOrdering Facility: [facility] Address: [address] [place] [address] Result Comment: <130 mg/dL, Optimal 130-159 mg/dL, Near optimal/above optimal 160-189 mg/dL, Borderline high 190-219 mg/dL, High >219 mg/dL, Very high Secondary prevention optimal non HDL Cholesterol levels are recommended to be <100 mg/dL Performed By: #### 3 016-3, 97654-1, LIPNF, ####[facility] LABCLIA [id number] [address] [address] [place] T CHOL/HDL RATIO NF 3.10 mg/dL Normal <5.10 [facility] Comment on above: Order Comment: Speci kristen Type: BLOOD SPECIMENOrdering Facility: [facility] Address: [address] [place] [address] Performed By: #### 3 016-3, 27270-8, LIPNF, 92372-0 ####[facility] LABCLIA [id number] [address] [address] [place] TRIGLYCERIDES, NF 95 mg/dL Normal <150 [facility] Comment on above: Order Comment: Speci men Type: BLOOD SPECIMENOrdering Facility: [facility] Address: [address] [place] [address] Result Comment: <150 mg/dL, Normal 150-199 mg/dL, Borderline high 200-499 mg/dL, High >499 mg/dL, Very high Performed By: #### 3 016-3, 03110-7, LIPNF, ####[facility] LABCLIA [id number] [place] [address] [place] VLDL CHOLESTEROL, NF 19 mg/dL Normal <30 [facility] Comment on above: Order Comment: Speci men Type: BLOOD SPECIMENOrdering Facility: [facility] Address: [address] [place] [address] Performed By: #### 3 016-3, 74992-8, LIPNF, ####[facility] LABCLIA [id number] [place] [address] [place] Magnesium SerPl-mCncon 01-19 Magnesium [Mass/Vol] 2.0 mg/dL Normal 1.7-2.3 [facility] Comment on above: Order Comment: Speci men Type: BLOOD SPECIMENOrdering Facility: [facility] Address: [address] [place] [address] Performed By: #### 3 016-3, 51423-8, LIPNF, ####[facility] LABCLIA [id number] [place] [address] [place] TSH SerPl-aCncon 01-19-2025 TSH Qn 0.523 m[IU]/L Normal 0.270-4.200 [facility] Comment on above: Order Comment: Speci men Type: BLOOD SPECIMENOrdering Facility: [facility] Address: [address] [place] [address] Performed By: #### 3 016-3, 41959-2, LIPNF, ####[facility] LABCLIA [id number] [address], [facility]95 [place] Urinalysis complete panel (U )on 01-19-2025 Bacteria LM.HPF (Urine sed) [#/Area] Negative Normal Negative [facility] Comment on above: Order Comment: Speci men Type: URINE SPECIMENOrdering Facility: [facility] Address: [address] [place] [address] Performed By: #### 2 4356-8 ####[facility] LABCLIA [id number] [address], [place] [address] [place] Bilirubin Ql (U) Negative Normal Negative [facility] Comment on above: Order Comment: Speci men Type: URINE SPECIMENOrdering Facility: [facility] Address: [address] [place] [address] Performed By: #### 2 4356-8 ####[facility] LABIA [id number] [place] [address] [place] Clarity (Unsp spec) Cloudy Abnormal Clear [facility] Comment on above: Order Comment: Speci men Type: URINE SPECIMENOrdering Facility: [facility] Address: [address] [place] [address] Performed By: #### 2 4356-8 ####[facility] LABIA [id number] [place] [address] [place] Color (U) Yellow Normal Yellow [facility] Comment on above: Order Comment: Speci men Type: URINE SPECIMENOrdering Facility: [facility] Address: [address] [place] [address] Performed By: #### 2 4356-8 ####[facility] LABIA [id number] [place] [address] [place] Epithelial cells LM.HPF (Urine sed) [#/Area] Moderate Normal [facility] Comment on above: Order Comment: Speci men Type: URINE SPECIMENOrdering Facility: [facility] Address: [address] [place] [address] Result Comment: Mode rate Performed By: #### 2 4356-8 ####[facility] LABCLIA [id number] [address], [place] [address] [place] Glucose Test strip (U) [Mass/Vol] Negative Normal Negative [facility] Comment on above: Order Comment: Speci men Type: URINE SPECIMENOrdering Facility: [facility] Address: [address] [place] [address] Performed By: #### 2 4356-8 ####[facility] LABCLIA [id number] [place] [address] [place] Hemoglobin Ql (U) Negative Normal Negative [facility] Comment on above: Order Comment: Speci men Type: URINE SPECIMENOrdering Facility: [facility] Address: [address] [place] [address] Performed By: #### 2 4356-8 ####[facility] LABCLIA [id number] [address], [place] [address] [place] Hyaline casts (Urine sed) [#/Area] 1-3 /LPF Abnormal 0 /LPF [facility] Comment on above: Order Comment: Speci men Type: URINE SPECIMENOrdering Facility: [facility] Address: [address] [place] [address] Performed By: #### 2 4356-8 ####[facility] LABCLIA [id number] [place] [address] [place] Ketones Ql (U) Negative Normal Negative [facility] Comment on above: Order Comment: Speci men Type: URINE SPECIMENOrdering Facility: [facility] Address: [address] [place] [address] Performed By: #### 2 4356-8 ####[facility] LABCLIA [id number] [address], [facility] [place] Leukocyte esterase Test strip Ql (U) Negative Normal Negative [facility] Comment on above: Order Comment: Speci men Type: URINE SPECIMENOrdering Facility: [facility] Address: [address] [place] [address] Performed By: #### 2 4356-8 ####[facility] LABCLIA [id number] [place] [address] [place] Nitrite Ql (U) Negative Normal Negative [facility] Comment on above: Order Comment: Speci men Type: URINE SPECIMENOrdering Facility: [facility] Address: [address] [place] [address] Performed By: #### 2 4356-8 ####[facility] LABCLIA [id number] [place] [address] [place] pH (U) 6.5 [pH] Normal <8.5 [facility] Comment on above: Order Comment: Speci men Type: URINE SPECIMENOrdering Facility: [facility] Address: [address] [place] [address] Performed By: #### 2 4356-8 ####[facility] LABCLIA [id number] [place] [address] [place] Protein (U) [Mass/Vol] 2+ Abnormal Negative [facility] Comment on above: Order Comment: Speci men Type: URINE SPECIMENOrdering Facility: [facility] Address: [address] [place] [address] Performed By: #### 2 4356-8 ####[facility] LABCLIA [id number] [place] [id number] [place] RBC LM.HPF (Urine sed) [#/Area] 0-2 /HPF Normal 0-2 /HPF [facility] Comment on above: Order Comment: Speci men Type: URINE SPECIMENOrdering Facility: [facility] Address: [address] [place] [address] Performed By: #### 2 4356-8 ####[facility] LABCLIA [id number] [place] [address] [place] Specific gravity (U) [Rel density] 1.022 Normal 1.005-1.030 [facility] Comment on above: Order Comment: Speci men Type: URINE SPECIMENOrdering Facility: [facility] Address: [address] [place] [address] Performed By: #### 2 4356-8 ####[facility] LABIA [id number] [place] [address] [place] Urobilinogen Ql (U) 1.0 EU/dL Normal 0.2-1.0 EU/dL [facility] Comment on above: Order Comment: Speci men Type: URINE SPECIMENOrdering Facility: [facility] Address: [address] [place] [address] Performed By: #### 2 4356-8 ####[facility] [id number] [place] [address] [place] WBC LM.HPF (Urine sed) [#/Area] 0-5 /HPF Normal 0-5 /HPF [facility] Comment on above: Order Comment: Speci men Type: URINE SPECIMENOrdering Facility: [facility] Address: [address] [place] [address] Performed By: #### 2 4356-8 ####[facility] [id number] [place] [address] [place] Yeast.budding LM.HPF (Urine sed) [#/Area] Present Abnormal None Seen [facility] Comment on above: Order Comment: Speci men Type: URINE SPECIMENOrdering Facility: [facility] Address: [address] [place] [address] Performed By: #### 2 4356-8 ####[facility] LABIA [id number] [place] [address] [place] [facility] Cobalamin (Vitamin B12) [Mass/Vol] 283 pg/mL Normal 232-1245 [facility] Comment on above: Order Comment: Speci men Type: BLOOD SPECIMENOrdering Facility: [facility] Address: [address] [place] [place] [address] Performed By: #### 2 132-9 ####[facility] LABCLIA [id number] [address] C[id number] [place] [address] OF [facility] CNPNon 01-16-2025 CNPN Telephone (FAMPWS) AVIANNE MARIE ([id number]) 1940 F Date Time Provider Department 01/16/25 [facility] visit today, we recorded the following information about you: Orly Richardson LPN 01/16/2025 1:03 PM Signed Received results of pt's upper GI/barium swallow test done at [facility] and ordered by pcp. Orly Richardson LPN Scan on 01/16/2025 11:34 AM by Provider, VIN Ratliff: X-ray Max Rodriguez MD 01/16/2025 1:45 PM Signed Let patient know her upper GI x-ray was unremarkable. Placed order for her to see Dr. Macias for possible scope. Beau Singh, RN 01/17/2025 8:09 AM Signed Phoned patient [...] [R13.19] Order(s):CONSULT TO GASTROENTEROLOGY [9010] Order #: [id number]: 1 FUTURE Prescriptions as of 01/17/2025 - [...] cyst [L72.0 (more content not included)... Normal [facility] Upper GI w/BA Swallowon - Upper GI w/BA Swallow [facility] [address] [place] [address] Upper GI w/BA Swallow MR#: [id number] Acct: [id number] Name: ANNE MARIE GARZA Rep #: [id number] : 1940 F 84 From: Amador palomino MD PCP: Dr. Max Rodriguez MD Status: REG CLI Study: Upper GI w/BA Swallow Date of Exam: 01/16/25 Exam# [id number] Ordering Dr: Max Rodriguez MD PROCEDURE: UPPER [...] esophagram and upper GI series. Reading Location: [facility] CC: Dr. 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 Normal [facility] CNOVon 01-10-2025 CNOV Office Visit (FAMPWS ) ANNE MARIE GARZA ([id number]) 1940 F Date Time Provider Department 01/10/25 [...] esophagitis 07/08/2022 Graves disease Heart attack (HCC) [place] stent in heart History of COVID-19 07/08/202205/2022 History of non-ST elevation myocardial infarction (NSTEMI) 01/19/201001/2010 Intradermal nevus 12/30/2014 right inferrior medial breast Keratosis, inflamed seborrheic 12/30/2014 right upper back Left carpal tunnel syndrome 01/04/[address] 12/03/2021 Daughter Truong is DPOA Low vitamin B12 level 04/06/2014 Lumbar radicular pain 05/26/2018 Added automatically from request for surgery [id number] Lump or mass in breast 01/20/2023 Patient [...] serrated adenoma/Repeat (more content not included)... Normal [facility] CNPNon 10-11-2024 [facility] ANNE MARIE GARZA Misty ([id number]) 1940 F Date Time Provider Department 10/11/24 [facility] During your visit today, we recorded [...] esophagitis [K21.9 (more content not included)... Normal [facility] TSH SerPl-aCncon 10-10-2024 TSH Qn 1.160 m[IU]/L Normal 0.270-4.200 [facility] Comment on above: Order Comment: Speci men Type: BLOOD SPECIMENOrdering Facility: [facility] Address: [address] [place] [address] Performed By: #### 3 016-3 ####[facility] LABCLIA [id number] [place] [address] [place] CNOVon 09-19-2024 CNOV Office Visit (FAMPWS ) AVIANNE MARIE L ([id number]) 1940 F Date Time Provider Department 09/19/24 9:40 AM MAX RODRIGUEZ FAMPWS During your visit [...] esophagitis 07/08/2022 Graves disease Heart attack (HCC) [place] stent in heart History of COVID-19 07/08/202205/2022 History of non-ST elevation myocardial infarction (NSTEMI) 01/19/201001/2010 Intradermal nevus 12/30/2014 right inferrior medial breast Keratosis, inflamed seborrheic 12/30/2014 right upper back Left carpal tunnel syndrome 01/04/[address] 12/03/2021 Daughter Truong is DPOA Low vitamin B12 level 04/06/2014 Lumbar radicular pain 05/26/2018 Added automatically from request for surgery [id number] Lump or mass in breast 01/20/2023 Patient [...] Reactions Iodine (more content not included)... Normal [facility] CNOVon 08-02-2024 CNOV Office Visit (FAMPWS ) ANNE MARIE GARZA ([id number]) 1940 F Date Time Provider Department 08/02/24 8:40 AM [facility] During your visit today, we recorded [...] esophagitis 07/08/2022 Graves disease Heart attack (HCC) [place] stent in heart History of COVID-19 07/08/202205/2022 History of non-ST elevation myocardial infarction (NSTEMI) 01/19/201001/2010 Intradermal nevus 12/30/2014 right inferrior medial breast Keratosis, inflamed seborrheic 12/30/2014 right upper back Left carpal tunnel syndrome 01/04/[address] 12/03/2021 Daughter Truong is DPOA Low vitamin B12 level 04/06/2014 Lumbar radicular pain 05/26/2018 Added automatically from request for surgery [id number] Lump or mass in breast 01/20/2023 Patient [...] clots- at (more content not included)... Normal [facility] Absolute lymphocyte countOrd ered By: ED PROVIDER on 12-13-2023 Lymphocytes Auto (Unsp spec) [#/Vol] 2.99 10*3/uL 0.83-4.51 [facility] Activated partial thrombopla stin time (aPTT) in platelet poor plasma by coagulation aOrdered By: ED PROVIDER on 12-13-2023 aPTT Coag (PPP) [Time] 23.5 s 24.1-36.2 [facility] Automated lymphocyte count a s percentage of total leukocytesOrdered By: ED PROVIDER on 12-13-2023 Lymphocytes/100 WBC Auto (Unsp spec) 29.1 % 19-41 [facility] Basophil percentageOrdered B y: Flavio Echavarria on 12-13-2023 Basophil percentage 25-50 SEEN /hpf 0-5 [facility] Basophil percentageOrdered B y: ED PROVIDER on 12-13-2023 Basophils/100 WBC (Bld) 0.9 % 0-1 [facility] Chloride [Moles/Vol] 106 mmol/L 98-107 [facility] Eosinophils/100 WBC (Bld) 3.8 % 0-5 [facility] Glucose [Mass/Vol] 111 mg/dL 74-106 [facility] Comment on above: Fasting Glucose resu lt from 100 to 125 mg/dL suggests IMPAIRED HOMEOSTASIS per A.D.A. criteria. Hemoglobin (Bld) [Mass/Vol] 13.5 g/dL 12.0-15.0 [facility] Monocytes/100 WBC (Bld) 8.8 % 0-10 [facility] Neutrophils (Bld) [#/Vol] 5.9 10*3/uL 2.0-7.7 [facility] Neutrophils/100 WBC (Bld) 57.0 % 47-70 [facility] Potassium [Moles/Vol] 3.8 mmol/L 3.5-5.1 [facility] Comment on above: Slight Hemolysis, Re sult may be falsely increased. Sodium [Moles/Vol] 141 mmol/L 136-145 [facility] WBC (Bld) [#/Vol] 10.3 10*3/uL 4.4-11.[address] [facility] Bilirubin Test strip Ql (U)O rdered By: Flavio Echavarria on 12-13-2023 Bilirubin Ql (U) Negative Negative [facility] Culture, urineOrdered By: Joaquin Warren on 12-13-2023 Bacteria identified Cx Nom (U) Escherichia coli [facility] Determination of erythrocyte mean corpuscular volume (MCV)Ordered By: ED PROVIDER on 12-13-2023 MCV (RBC) [Entitic vol] 89.6 fL 81-99 [facility] Erythrocyte distribution wid th ratioOrdered By: ED PROVIDER on 12-13-2023 Erythrocyte distribution width (RBC) [Ratio] 14.2 % 11.6-14.6 [facility] Erythrocyte distribution wid th standard deviationOrdered By: ED PROVIDER on 12-13-2023 Erythrocyte distribution width (RBC) [Entitic vol] 46.3 fL 35.1-43.9 [facility] Hematocrit Auto (Bld) [Volum e fraction]Ordered By: ED PROVIDER on 12-13-2023 Hematocrit (Bld) [Volume fraction] 42.9 % 37-47 [facility] Immature granulocytes/100 WB C Auto (Bld)Ordered By: ED PROVIDER on 12-13-2023 Immature granulocytes/100 WBC (Bld) 0.400 % 0.0-0.9 [facility] Comment on above: IG% - Immature Granu locytes (promyelocytes, myelocytes and metamyelocytes) > 1% indicates that a LEFT SHIFT is Present. Ketones Test strip Ql (U)Ord ered By: Flavio Echavarria on 12-13-2023 Ketones Ql (U) 5 mg/dl Negative [facility] Laboratory - Chemistry and C hemistry - challengeOrdered By: ED PROVIDER on 12-13-2023 CO2 [Moles/Vol] 29.0 mmol/L 21.0-32.0 [facility] Urea nitrogen/Creatinine [Mass ratio] 21.5 mg/mg 10-20 [facility] Laboratory - CoagulationOrde red By: ED PROVIDER on 12-13-2023 PT Coag (PPP) [Time] 12.3 s 11.7-14.9 [facility] Laboratory - Hematology and Cell countsOrdered By: ED PROVIDER on 12-13-2023 MCH (RBC) [Entitic mass] 28.2 pg 27.0-32.0 [facility] MCHC (RBC) [Mass/Vol] 31.5 g/dL 32-36 [facility] Nucleated RBC/100 WBC (Bld) [Ratio] 0 % 0-5 [facility] Platelets (Bld) [#/Vol] 315 10*3/uL 150-450 [facility] Mucus LM Ql (Urine sed)Order ed By: Flavio Echavarria on 12-13-2023 Mucus Ql (Urine sed) 0 SEEN /hpf [facility] Nitrite Test strip Ql (U)Ord ered By: Flavio Echavarria on 12-13-2023 Nitrite Ql (U) Positive Negative [facility] No Panel InformationOrdered By: Flavio Echavarria on 12-13-2023 Urine RBC 0-5 SEEN /hpf 0-5 [facility] Troponin I High Sensitivity 8 pg/mL 3.0-54.0 [facility] Comment on above: Please Note: New Jennifer t Units and Gender Specific Reference Ranges. For more information see Policy Stat Procedure Strandquist High Sensitivity Troponin (TNIH) and attachments. No Panel InformationOrdered By: ED PROVIDER on 12-13-2023 Estimated GFR (MDRD) Amer 55 mL/min >60 [facility] Comment on above: GFR Calc Estimated GFR (MDRD) Non-Af Amer 45 mL/min >60 [facility] Comment on above: Non- GFR Calc Platelet mean volume Carter-Ec ker (Bld) [Entitic vol]Ordered By: ED PROVIDER on 12-13-2023 Platelet mean volume (Bld) [Entitic vol] 10.5 fL 6.2-12.0 [facility] Platelet poor plasma interna tional normalized ratio (INR)Ordered By: ED PROVIDER on 12-13-2023 INR Coag (PPP) [Relative time] 0.9 {INR} [facility] Protein Test strip Ql (U)Ord ered By: Flavio Echavarria on 12-13-2023 Protein Ql (U) 30 mg/dl Negative [facility] RBC Auto (Bld) [#/Vol]Ordere d By: ED PROVIDER on 12-13-2023 RBC (Bld) [#/Vol] 4.79 10*6/uL 4.2-5.[address] [facility] Serum or plasma calcium ajit urement (mass/volume)Ordered By: ED PROVIDER on 12-13-2023 Calcium [Mass/Vol] 9.2 mg/dL 8.5-10.1 [facility] Serum or plasma creatinine m easurement (mass/volume)Ordered By: ED PROVIDER on 12-13-2023 Creatinine [Mass/Vol] 1.21 mg/dL 0.55-1.02 [facility] Comment on above: The validity of the calculated GFR & GFRAA in patients over 70 years has not been determined. Clinical correlation is essential. Serum or plasma urea nitroge n measurement (mass/volume)Ordered By: ED PROVIDER on 12-13-2023 Urea nitrogen [Mass/Vol] 26 mg/dL 7-18 [facility] Squamous epithelial cells de tection in urine sediment by light microscopyOrdered By: Flavio Echavarria on 12-13-2023 Epithelial cells.squamous LM Ql (Urine sed) 0-5 SEEN /hpf 5-10 [facility] Thin prep Papanicolaou smear with manual screeningOrdered By: ED PROVIDER on 12-13-2023 Thin prep Papanicolaou smear with manual screening 6 5-15 [facility] Urine blood detectionOrdered By: Flavio Echavarria on 12-13-2023 RBC Ql (U) 10 /ul Negative [facility] Urine clarityOrdered By: Micah Echavarria on 12-13-2023 Clarity (U) Sl. Cloudy Clear [facility] Urine color determinationOrd ered By: Flavio Echavarria on 12-13-2023 Color (U) Yellow Yellow [facility] Urine glucose detectionOrder ed By: Flavio Echavarria on 12-13-2023 Glucose Ql (U) Normal mg/dl Normal [facility] Urine leukocyte esterase det ection by dipstickOrdered By: Flavio Echavarria on 12-13-2023 Leukocyte esterase Test strip Ql (U) 500 /ul Negative [facility] Urine pHOrdered By: Flavio griffin on 12-13-2023 pH (U) 6.0 [pH] 5.0 - 8.0 [facility] Urine sediment bacteria coun t by microscopy (number/high power field)Ordered By: Flavio Echavarria on 12-13-2023 Bacteria LM.HPF (Urine sed) [#/Area] 3 /[HPF] None Seen [facility] Urine specific gravity measu rementOrdered By: Flavio Echavarria on 12-13-2023 Specific gravity (U) [Rel density] 1.025 1.002-1.030 [facility] Urine urobilinogen measureme ntOrdered By: Flavio Echavarria on 12-13-2023 Urobilinogen Ql (U) 4 mg/dl Normal [facility] XR Shoulder - right 3 Viewso n 12-09-2023 IMPRESSION: No acute osseous abnormality. Degenerative disease of the right shoulder. Museum Attendant: MIRIAM Transcribe Date/Time: Dec 09 2023 11:41A Dictated by : YENNY RIVAS MD This examination was interpreted and the report reviewed and electronically signed by: YENNY RIVAS MD on Dec 09 2023 11:44AM EST DIVISION OF RADIOLOGY * * *Final Report* [...] joint space narrowing. DIVISION OF RADIOLOGY Provider, Case [facility] - 12/09/2023 * * *Final Report* * [...] abnormality. Degenerative disease of the right shoulder. Museum Attendant: PSCB Transcribe Date/Time: Dec 09 2023 11:41A Dictated by : YENNY RIVAS MD This examination was interpreted and the report reviewed and electronically signed by: YENNY RIVAS MD on Dec 09 2023 11:44AM EST [facility] XR Shoulder - right 3 ViewsO rdered By: [facility] Provider on 12-09-2023 [facility] XR Shoulder - right 3 Viewso n 12-08-2023 Radiology Study observation (narrative) [facility] Absolute lymphocyte countOrd ered By: Chuyita Mccarty on 05-12-2023 Lymphocytes Auto (Unsp spec) [#/Vol] 1.74 10*3/uL 0.83-4.51 [facility] Basophil percentageOrdered B y: Chuyita Mccarty on 05-12-2023 Basophils/100 WBC (Bld) 0.9 % 0-1 [facility] Bilirubin [Mass/Vol] 0.40 mg/dL 0.20-1.00 [facility] Comment on above: For patients on eltr ombopag therapy, use of Dimension Strandquist TBIL is not recommended. Chloride [Moles/Vol] 103 mmol/L 98-107 [facility] Eosinophils/100 WBC (Bld) 3.4 % 0-5 [facility] Glucose [Mass/Vol] 101 mg/dL 74-106 [facility] Comment on above: Fasting Glucose resu lt from 100 to 125 mg/dL suggests IMPAIRED HOMEOSTASIS per A.D.A. criteria. Neutrophils (Bld) [#/Vol] 5.1 10*3/uL 2.0-7.7 [facility] Neutrophils/100 WBC (Bld) 63.9 % 47-70 [facility] Potassium [Moles/Vol] 4.5 mmol/L 3.5-5.1 [facility] Protein [Mass/Vol] 7.2 g/dL 6.4-8.2 [facility] Sodium [Moles/Vol] 135 mmol/L 136-145 [facility] WBC (Bld) [#/Vol] 8.0 10*3/uL 4.4-11.0 [facility] Blood erythrocytes count (nu mber/volume)Ordered By: Chuyita Mccarty on 05-12-2023 RBC (Bld) [#/Vol] 4.95 10*6/uL 4.2-5.[address] [facility] Blood hemoglobin measurement (mass/volume)Ordered By: Chuyita Mccarty on 05-12-2023 Hemoglobin (Bld) [Mass/Vol] 14.2 g/dL 12.0-15.0 [facility] Blood lymphocytes/100 leukoc ytesOrdered By: Chuyita Mccarty on 05-12-2023 Lymphocytes/100 WBC (Bld) 21.8 % 19-41 [facility] Blood monocytes/100 leukocyt esOrdered By: Chuyita Mccarty on 05-12-2023 Monocytes/100 WBC (Bld) 9.4 % 0-10 [facility] Blood platelet mean volumeOr dered By: Chuyita Mccarty on 05-12-2023 Platelet mean volume (Bld) [Entitic vol] 11.2 fL 6.2-12.0 [facility] Determination of erythrocyte mean corpuscular volume (MCV)Ordered By: Chuyita Mccarty on 05-12-2023 MCV (RBC) [Entitic vol] 90.5 fL 81-99 [facility] Direct bilirubinOrdered By: Chuyita Mccarty on 05-12-2023 Bilirubin.direct [Mass/Vol] 0.10 mg/dL 0.00-0.30 [facility] Hematocrit Auto (Bld) [Volum e fraction]Ordered By: Chuyita Mccarty on 05-12-2023 Hematocrit (Bld) [Volume fraction] 44.8 % 37-47 [facility] Laboratory - Chemistry and C hemistry - challengeOrdered By: Chuyita Mccarty on 05-12-2023 ALP [Catalytic activity/Vol] 49 U/L 45-117 [facility] ALT [Catalytic activity/Vol] 13 U/L 13-56 [facility] CO2 [Moles/Vol] 29.0 mmol/L 21.0-32.0 [facility] Globulin (S) [Mass/Vol] 3.9 g/dL 2.2-4.2 [facility] Lipase [Catalytic activity/Vol] 43 U/L 13-75 [facility] Comment on above: Please note:LIPASE r evised reference range effective 23. New Lipase methodology. Expected to produce lower values than the previous assay method. NEW Reference Range: 13 - 75 U/L Urea nitrogen/Creatinine [Mass ratio] 20.5 mg/mg 10-20 [facility] Laboratory - Hematology and Cell countsOrdered By: Chuyita Mccarty on 05-12-2023 Erythrocyte distribution width (RBC) [Entitic vol] 48.7 fL 35.1-43.9 [facility] Erythrocyte distribution width (RBC) [Ratio] 14.6 % 11.6-14.6 [facility] Immature granulocytes/100 WBC (Bld) 0.600 % 0.0-0.9 [facility] Comment on above: IG% - Immature Granu locytes (promyelocytes, myelocytes and metamyelocytes) > 1% indicates that a LEFT SHIFT is Present. MCH (RBC) [Entitic mass] 28.7 pg 27.0-32.0 [facility] Nucleated RBC/100 WBC (Bld) [Ratio] 0 % 0-5 [facility] MCHC Auto (RBC) [Mass/Vol]Or dered By: Chuyita Mccarty on 05-12-2023 MCHC (RBC) [Mass/Vol] 31.7 g/dL 32-36 [facility] No Panel InformationOrdered By: Chuyita Mccarty on 05-12-2023 Troponin I High Sensitivity 7 pg/mL 3.0-54.0 [facility] Comment on above: Please Note: New Jennifer t Units and Gender Specific Reference Ranges. For more information see Policy Stat Procedure [place]andquist High Sensitivity Troponin (TNIH) and attachments. Estimated Creatinine Clearance Calc 31.23 ml/min [facility] Estimated GFR (MDRD) Amer 54 mL/min >60 [facility] Comment on above: GFR Calc Estimated GFR (MDRD) Non-Af Amer 45 mL/min >60 [facility] Comment on above: Non- GFR Calc Platelets bldOrdered By: Carli Mccarty on 05-12-2023 Platelets (Bld) [#/Vol] 252 10*3/uL 150-450 [facility] Serum or plasma albumin ajit urement (mass/volume)Ordered By: Chuyita Mccarty on 05-12-2023 Albumin [Mass/Vol] 3.3 g/dL 3.2-5.0 [facility] Serum or plasma calcium ajit urement (mass/volume)Ordered By: Chuyita Mccarty on 05-12-2023 Calcium [Mass/Vol] 9.0 mg/dL 8.5-10.1 [facility] Serum or plasma creatinine m easurement (mass/volume)Ordered By: Chuyita Mccarty on 05-12-2023 Creatinine [Mass/Vol] 1.22 mg/dL 0.55-1.02 [facility] Comment on above: The validity of the calculated GFR & GFRAA in patients over 70 years has not been determined. Clinical correlation is essential. Serum or plasma urea nitroge n measurement (mass/volume)Ordered By: Chuyita Mccarty on 05-12-2023 Urea nitrogen [Mass/Vol] 25 mg/dL 7-18 [facility] Thin prep Papanicolaou smear with manual screeningOrdered By: Chuyita Mccarty on 05-12-2023 Thin prep Papanicolaou smear with manual screening 14 U/L 15-37 [facility] Thin prep Papanicolaou smear with manual screening 3 5-15 [facility] Absolute lymphocyte countOrd ered By: Flavio Echavarria on 05-06-2023 Lymphocytes Auto (Unsp spec) [#/Vol] 2.52 10*3/uL 0.83-4.51 [facility] Basophil percentageOrdered B y: Flavio Echavarria on 05-06-2023 Basophils/100 WBC (Bld) 0.8 % 0-1 [facility] Chloride [Moles/Vol] 99 mmol/L 98-107 [facility] Eosinophils/100 WBC (Bld) 2.7 % 0-5 [facility] Glucose [Mass/Vol] 103 mg/dL 74-106 [facility] Comment on above: Fasting Glucose resu lt from 100 to 125 mg/dL suggests IMPAIRED HOMEOSTASIS per A.D.A. criteria. Neutrophils (Bld) [#/Vol] 5.1 10*3/uL 2.0-7.7 [facility] Neutrophils/100 WBC (Bld) 58.3 % 47-70 [facility] Potassium [Moles/Vol] 4.4 mmol/L 3.5-5.1 [facility] Sodium [Moles/Vol] 136 mmol/L 136-145 [facility] WBC (Bld) [#/Vol] 8.8 10*3/uL 4.4-11.0 [facility] Blood erythrocytes count (nu mber/volume)Ordered By: Flavio Echavarria on 05-06-2023 RBC (Bld) [#/Vol] 4.99 10*6/uL 4.2-5.[address] [facility] Blood hemoglobin measurement (mass/volume)Ordered By: Flavio Echavarria on 05-06-2023 Hemoglobin (Bld) [Mass/Vol] 14.5 g/dL 12.0-15.0 [facility] Blood lymphocytes/100 leukoc ytesOrdered By: Flavio Echavarria on 05-06-2023 Lymphocytes/100 WBC (Bld) 28.7 % 19-41 [facility] Blood monocytes/100 leukocyt esOrdered By: Flavio Echavarria on 05-06-2023 Monocytes/100 WBC (Bld) 9.3 % 0-10 [facility] Blood platelet mean volumeOr dered By: Falvio Echavarria on 05-06-2023 Platelet mean volume (Bld) [Entitic vol] 11.0 fL 6.2-12.0 [facility] Determination of erythrocyte mean corpuscular volume (MCV)Ordered By: Flavio Echavarria on 05-06-2023 MCV (RBC) [Entitic vol] 87.6 fL 81-99 [facility] Hematocrit Auto (Bld) [Volum e fraction]Ordered By: Flavio Echavarria on 05-06-2023 Hematocrit (Bld) [Volume fraction] 43.7 % 37-47 [facility] Laboratory - Chemistry and C hemistry - challengeOrdered By: Flavio Echavarria on 05-06-2023 CO2 [Moles/Vol] 32.0 mmol/L 21.0-32.0 [facility] Urea nitrogen/Creatinine [Mass ratio] 19.4 mg/mg 10-20 [facility] Laboratory - Hematology and Cell countsOrdered By: Flavio Echavarria on 05-06-2023 Erythrocyte distribution width (RBC) [Entitic vol] 46.8 fL 35.1-43.9 [facility] Erythrocyte distribution width (RBC) [Ratio] 14.6 % 11.6-14.6 [facility] Immature granulocytes/100 WBC (Bld) 0.200 % 0.0-0.9 [facility] Comment on above: IG% - Immature Granu locytes (promyelocytes, myelocytes and metamyelocytes) > 1% indicates that a LEFT SHIFT is Present. MCH (RBC) [Entitic mass] 29.1 pg 27.0-32.0 [facility] Nucleated RBC/100 WBC (Bld) [Ratio] 0 % 0-5 [facility] MCHC Auto (RBC) [Mass/Vol]Or dered By: Flavio Echavarria on 05-06-2023 MCHC (RBC) [Mass/Vol] 33.2 g/dL 32-36 [facility] No Panel InformationOrdered By: Flavio Echavarria on 05-06-2023 Troponin I High Sensitivity 8 pg/mL 3.0-54.0 [facility] Comment on above: Please Note: New Jennifer t Units and Gender Specific Reference Ranges. For more information see Policy Stat Procedure [place] High Sensitivity Troponin (TNIH) and attachments. D-Dimer Quantitative (PE/DVT) 0.55 FEU/ug/m 0.27-0.49 [facility] Comment on above: D-Dimer ELEVATED (>0 .49): Additional studies and clinicalassessments are indicated to conclude diagnosis of:Deep Vein Thrombosis (DVT) or Pulmonary Embolism (PE)CRITICAL VALUE VERIFIED. CALL[facility] TO [facility]05/06/23 1652 Oriana Osorio.RESULTS READ BACK BY SAME . Estimated Creatinine Clearance Calc 27.41 ml/min [facility] Estimated GFR (MDRD) Amer 47 mL/min >60 [facility] Comment on above: GFR Calc Estimated GFR (MDRD) Non-Af Amer 39 mL/min >60 [facility] Comment on above: Non- GFR Calc Platelets bldOrdered By: Micah Echavarria on 05-06-2023 Platelets (Bld) [#/Vol] 266 10*3/uL 150-450 [facility] Serum or plasma calcium ajit urement (mass/volume)Ordered By: Flavio Echavarria on 05-06-2023 Calcium [Mass/Vol] 9.4 mg/dL 8.5-10.1 [facility] Serum or plasma creatinine m easurement (mass/volume)Ordered By: Flavio Echavarria on 05-06-2023 Creatinine [Mass/Vol] 1.39 mg/dL 0.55-1.02 [facility] Comment on above: The validity of the calculated GFR & GFRAA in patients over 70 years has not been determined. Clinical correlation is essential. Serum or plasma urea nitroge n measurement (mass/volume)Ordered By: Flavio Echavarria on 05-06-2023 Urea nitrogen [Mass/Vol] 27 mg/dL 7-18 [facility] Thin prep Papanicolaou smear with manual screeningOrdered By: Flavio Echavarria on 05-06-2023 Thin prep Papanicolaou smear with manual screening 5 -15 [facility] TOX SCREEN ROUT URon 023 Amphetamines Confirm (U) [Mass/Vol] Negative Negative [facility] Barbiturates Urine Negative Negative [facility] Benzodiazepines Urine Negative Negative [facility] Cannabinoids, Urine Negative Negative [facility] Cocaine Ql (U) Negative Negative [facility] Ethanol (U) [Mass/Vol] <11 mg/dL Cl [facility] Opiates Screen Ql (U) Negative Negative [facility] oxyCODONE cutoff Screen (U) [Mass/Vol] Negative Negative [facility] Phencyclidine Ql (U) Negative Negative [facility] URINE CULTUREon 10-02-2022 Bacteria identified Cx Nom (U) >=100,000 CFU/ml Escherichia coli Abnormal [facility] UA DIP, URINE (POC)on 2021 BILIRUBIN UA (POCT) Negative Negative [facility] CLARITY UA (POCT) Clear [facility] COLOR UA (POCT) Yellow [facility] GLUCOSE UA (POCT) Negative Negative mg/dL [facility] HEMOGLOBIN/BLOOD UA (POCT) Negative Negative [facility] KETONE UA (POCT) Negative Negative mg/dL [facility] LEUKOCYTES UA (POCT) Trace Abnormal Negative [facility] NITRITE UA (POCT) Negative Negative [facility] PH UA (POCT) 6.5 4.5 - 8.0 [facility] Protein Ql (U) Trace Abnormal Negative mg/dL [facility] SPECIFIC GRAVITY UA (POCT) 1.020 1.005 - 1.030 [facility] UROBILINOGEN UA (POCT) 1.0 E.U./dL Ammy l E.U./dL [facility] URINE CULTUREon 09-30-2022 Bacteria identified Cx Nom (U) Invalid Interpretation Code [facility] UA DIP, URINE (POC)on 2021 BILIRUBIN UA (POCT) Negative Negative [facility] CLARITY UA (POCT) Clear [facility] COLOR UA (POCT) Yellow [facility] GLUCOSE UA (POCT) Negative Negative mg/dL [facility] HEMOGLOBIN/BLOOD UA (POCT) Negative Negative [facility] KETONE UA (POCT) Negative Negative mg/dL [facility] LEUKOCYTES UA (POCT) Small Abnormal Negative [facility] NITRITE UA (POCT) Positive Abnormal Negative [facility] PH UA (POCT) 6.0 4.5 - 8.0 [facility] Protein Ql (U) Negative Negative mg/dL [facility] SPECIFIC GRAVITY UA (POCT) 1.020 1.005 - 1.030 [facility] UROBILINOGEN UA (POCT) 1.0 E.U./dL Ammy l E.U./dL [facility] TOX SCREEN ROUT URon 022 Amphetamines Confirm (U) [Mass/Vol] Negative Negative [facility] Barbiturates Urine Negative Negative [facility] Benzodiazepines Urine Negative Negative [facility] Cannabinoids, Urine Negative Negative [facility] Cocaine Ql (U) Negative Negative [facility] Ethanol (U) [Mass/Vol] <11 <11 mg/dL Cl [facility] Opiates Screen Ql (U) Negative Negative [facility] oxyCODONE cutoff Screen (U) [Mass/Vol] Negative Negative [facility] Phencyclidine Ql (U) Negative Negative [facility] No Panel Information [facility] Vital Signs Date Time Vital Sign Value Performing Clinician Facility 07-19-2025 09:03-0400 Body height 162.[address] Max Rodriguez MD Work Phone: [facility] 07-19-2025 09:03-0400 Body mass index (BMI) [Ratio] 31.4 kg/m2 Dr. Max Rodriguez MD Work Phone: [facility] 07-19-2025 09:03-0400 Body weight [address] Max Rodriguez MD Work Phone: [facility] 07-19-2025 09:03-0400 Diastolic blood pressure 79 mm[Hg] Dr. Max Rodriguez MD Work Phone: [facility] 07-19-2025 09:03-0400 Heart rate 62 /min Dr. Max Rodriguez MD Work Phone: [facility] 07-19-2025 09:03-0400 Respiratory rate 16 /min Dr. Max Rodriguez MD Work Phone: [facility] 07-19-2025 09:03-0400 Systolic blood pressure 166 mm[Hg] Dr. Max Rodriguez MD Work Phone: 5(027)483-556452 [place] [address] 06-07-2025 14:12-0400 Body height 162.[address] Max Rodriguez MD Work Phone: 3(441)183-037152 [place] [address] 06-07-2025 14:12-0400 Body mass index (BMI) [Ratio] 30.9 kg/m2 Dr. Max Rodriguez MD Work Phone: 8(053)558-104352 [place] [address] 06-07-2025 14:12-0400 Body weight 81.[address] Max Rodriguez MD Work Phone: 1(915)076-981452 [place] [address] 06-07-2025 14:12-0400 Diastolic blood pressure 71 mm[Hg] Dr. Max Rodriguez MD Work Phone: 1(112)203-075452 [place] [address] 06-07-2025 14:12-0400 Heart rate 150 /min Dr. Max Rodriguez MD Work Phone: 0(278)450-820352 [place] [address] 06-07-2025 14:12-0400 Respiratory rate 16 /min Dr. Max Rodriguez MD Work Phone: 2(206)330-658952 [place] [address] 06-07-2025 14:12-0400 Systolic blood pressure 104 mm[Hg] Dr. Max Rodriguez MD Work Phone: 0(939)633-805852 [place] [address] 06-06-2025 18:00-0400 Body temperature 98.1 [degF] Dr. Max Rodriguez MD Work Phone: 7(322)863-551252 [place] [address] 06-06-2025 18:00-0400 Diastolic blood pressure 77 mm[Hg] Dr. Max Rodriguez MD Work Phone: 2(040)850-918952 [place] [address] 06-06-2025 18:00-0400 Heart rate 78 /min Dr. Max Rodriguez MD Work Phone: 5(961)469-751052 [place] [address] 06-06-2025 18:00-0400 Respiratory rate 14 /min Dr. Max Rodriguez MD Work Phone: 9(606)387-594152 [place] [address] 06-06-2025 18:00-0400 Systolic blood pressure 135 mm[Hg] Dr. Max Rodriguez MD Work Phone: 6(221)090-709952 [place] [address] 06-06-2025 14:03-0400 Diastolic blood pressure 65 mm[Hg] Dr. Max Rodriguez MD Work Phone: 1(317)320-165352 [place] [address] 06-06-2025 14:03-0400 Heart rate 84 /min Dr. Max Rodriguez MD Work Phone: 1(154)457-351752 [place] [address] 06-06-2025 14:03-0400 Inhaled oxygen flow rate 2 L/min Dr. Max Rodriguez MD Work Phone: 2(925)963-600252 [place] [address] 06-06-2025 14:03-0400 Respiratory rate 18 /min Dr. Max Rodriguez MD Work Phone: 4(020)657-288852 [place] [address] 06-06-2025 14:03-0400 SaO2% (BldA) [Mass fraction] 98 % Dr. Max Rodriguez MD Work Phone: 6(832)141-416652 [place] [address] 06-06-2025 14:03-0400 Systolic blood pressure 149 mm[Hg] Dr. Max Rodriguez MD Work Phone: 0(053)914-960152 [place] [address] 06-06-2025 13:51-0400 Body height 162.[address] Max Rodriguez MD Work Phone: 3(022)312-568852 [place] [address] 06-06-2025 13:51-0400 Body weight 82.[address] Max Rodriguez MD Work Phone: 7(878)692-372552 [place] [address] 06-06-2025 08:55-0400 Body temperature 98 [degF] Dr. Max Rodriguez MD Work Phone: 2(080)719-222252 [place] [address] 2025 23:05-0400 Body mass index (BMI) [Ratio] 31.2 kg/m2 Dr. Max Rodriguez MD Work Phone: 5(991)262-146952 [place] [address] 2025 22:00-0400 Body temperature 98.1 [degF] Dr. Max Rodriguez MD Work Phone: 3(238)859-752452 [place] [address] 2025 22:00-0400 Diastolic blood pressure 69 mm[Hg] Dr. Max Rodriguez MD Work Phone: 2(622)555-300052 [place] [address] 2025 22:00-0400 Heart rate 93 /min Dr. Max Rodriguez MD Work Phone: 1(825)185-600952 [place] [address] 2025 22:00-0400 Respiratory rate 22 /min Dr. Max Rodriguez MD Work Phone: 9(108)994-593752 [place] [address] 2025 22:00-0400 SaO2% (BldA) [Mass fraction] 94 % Dr. Max Rodriguez MD Work Phone: 2(362)887-211352 [place] [address] 2025 22:00-0400 Systolic blood pressure 165 mm[Hg] Dr. Max Rodriguez MD Work Phone: 9(369)822-289552 [place] [address] 2025 18:17-0400 Body height 162.[address] Max Rodriguez MD Work Phone: 3(860)634-566952 [place] [address] 2025 18:17-0400 Body mass index (BMI) [Ratio] 31.4 kg/m2 Dr. Max Rodriguez MD Work Phone: 2(565)206-174752 [place] [address] 2025 18:17-0400 Body weight 82.[address] Max Rodriguez MD Work Phone: 0(838)798-391652 [place] [address] 05-30-2025 14:48-0400 Diastolic blood pressure 60 mm[Hg] Dr. Max Rodriguez MD Work Phone: 3(280)797-373052 [place] [address] 05-30-2025 14:48-0400 Systolic blood pressure 80 mm[Hg] Dr. Max Rodriguez MD Work Phone: 1(413)351-515752 [place] [address] 05-30-2025 14:20-0400 Heart rate 93 /min Dr. Max Rodriguez MD Work Phone: 4(102)878-698752 [place] [address] 05-30-2025 14:20-0400 Respiratory rate 16 /min Dr. Max Rodriguez MD Work Phone: 6(131)342-902952 [place] [address] 05-30-2025 13:16-0400 Body height 162.[address] Max Rodriguez MD Work Phone: 8(365)128-038752 [place] [address] 05-30-2025 13:16-0400 Body mass index (BMI) [Ratio] 30.4 kg/m2 Dr. Max Rodriguez MD Work Phone: 4(636)576-445752 [place] [address] 05-30-2025 13:16-0400 Body weight 80.[address] Max Rodriguez MD Work Phone: 4(278)177-230252 [place] [address] 05-26-2025 16:31-0400 Body temperature 97.6 [degF] Dr. Max Rodriguez MD Work Phone: 9(897)587-218352 [place] [address] 05-26-2025 16:31-0400 Diastolic blood pressure 78 mm[Hg] Dr. Max Rodriguez MD Work Phone: 3(634)223-975352 [place] [address] 05-26-2025 16:31-0400 Heart rate 80 /min Dr. Max Rodriguez MD Work Phone: 8(782)589-150452 [place] [address] 05-26-2025 16:31-0400 Respiratory rate 18 /min Dr. Max Rodriguez MD Work Phone: 5(217)175-790452 [place] [address] 05-26-2025 16:31-0400 SaO2% (BldA) [Mass fraction] 99 % Dr. Max Rodriguez MD Work Phone: 9(166)593-037152 [place] [address] 05-26-2025 16:31-0400 Systolic blood pressure 120 mm[Hg] Dr. Max Rodriguez MD Work Phone: 5(931)686-149152 [place] [address] 05-26-2025 14:32-0400 Inhaled oxygen flow rate 2 L/min Dr. Max Rodriguez MD Work Phone: 5(592)720-905852 [place] [address] 05-26-2025 11:03-0400 Body mass index (BMI) [Ratio] 34.5 kg/m2 Dr. Mxa Rodriguez MD Work Phone: 3(900)722-520752 [place] [address] 05-26-2025 11:03-0400 Body weight 91.[address] Max Rodriguez MD Work Phone: [facility] 05-26-2025 10:12-0400 Body height 162.[address] Max Rodriguez MD Work Phone: [facility] 05-21-2025 09:00-0400 Body mass index (BMI) [Ratio] 30.71 kg/m2 Max Rodriguez MD Work Phone: [facility] 05-21-2025 09:00-0400 Body weight 80.65 kg Max Rodriguez MD Work Phone: [facility] 05-21-2025 09:00-0400 Diastolic blood pressure 60 mm[Hg] Max Rodriguez MD Work Phone: [facility] 05-21-2025 09:00-0400 Heart rate 68 /min Max Rodriguez MD Work Phone: [facility] 05-21-2025 09:00-0400 Respiratory rate 16 /min Max Rodriguez MD Work Phone: [facility] 05-21-2025 09:00-0400 Systolic blood pressure 138 mm[Hg] Max Rodriguez MD Work Phone: [facility] 05-18-2025 12:27-0400 Body mass index (BMI) [Ratio] 30.46 kg/m2 Nicole Zhang APRN.CURRENCY EXCHANGE SPECIALIST Work Phone: [facility] 05-18-2025 12:27-0400 Body weight 80 kg Nicole Zhang APRN.CURRENCY EXCHANGE SPECIALIST Work Phone: [facility] 05-18-2025 12:27-0400 Diastolic blood pressure 68 mm[Hg] Nicole Zhang APRN.CURRENCY EXCHANGE SPECIALIST Work Phone: [facility] 05-18-2025 12:27-0400 Heart rate 67 /min Nicole Zhang APRN.CURRENCY EXCHANGE SPECIALIST Work Phone: [facility] 05-18-2025 12:27-0400 Systolic blood pressure 122 mm[Hg] Nicole Zhang APRN.CURRENCY EXCHANGE SPECIALIST Work Phone: [facility] 03-23-2025 10:25-0400 Diastolic blood pressure 52 mm[Hg] Daniel Garcia MD [facility] 03-23-2025 10:25-0400 Systolic blood pressure 151 mm[Hg] Daniel Garcia MD [facility] 03-22-2025 07:55-0400 Body height 162.[address] Max Rodriguez MD Work Phone: [facility] 03-22-2025 07:55-0400 Body mass index (BMI) [Ratio] 30.7 kg/m2 Dr. Max Rodriguez MD Work Phone: [facility] 03-22-2025 07:55-0400 Body weight 81.[address] Max Rodriguez MD Work Phone: [facility] 03-22-2025 07:55-0400 Diastolic blood pressure 65 mm[Hg] Dr. Max Rodriguez MD Work Phone: [facility] 03-22-2025 07:55-0400 Heart rate 61 /min Dr. Max Rodriguez MD Work Phone: [facility] 03-22-2025 07:55-0400 Respiratory rate 16 /min Dr. Max Rodriguez MD Work Phone: [facility] 03-22-2025 07:55-0400 Systolic blood pressure 131 mm[Hg] Dr. Max Rodriguez MD Work Phone: [facility] 01-26-2025 10:04-0400 Body mass index (BMI) [Ratio] 30.05 kg/m2 Max Rodriguez MD Work Phone: [facility] 01-26-2025 10:04-0400 Body weight 78.93 kg Max Rodriguez MD Work Phone: [facility] 01-26-2025 10:04-0400 Diastolic blood pressure 60 mm[Hg] Max Rodriguez MD Work Phone: [facility] 01-26-2025 10:04-0400 Heart rate 54 /min Max Rodriguez MD Work Phone: [facility] 01-26-2025 10:04-0400 Respiratory rate 18 /min Max Rodriguez MD Work Phone: [facility] 01-26-2025 10:04-0400 SaO2% (BldA) [Mass fraction] 96 % Max Rodriguez MD Work Phone: [facility] 01-26-2025 10:04-0400 Systolic blood pressure 130 mm[Hg] Max Rodriguez MD Work Phone: [facility] 01-22-2025 12:31-0400 Body height 162.1 cm Angela Haines MD Work Phone: [facility] 01-22-2025 12:31-0400 Body mass index (BMI) [Ratio] 30.4 kg/m2 Angela Haines MD Work Phone: [facility] 01-22-2025 12:31-0400 Body weight 79.83 kg Angela Haines MD Work Phone: [facility] 01-22-2025 12:31-0400 Diastolic blood pressure 62 mm[Hg] Angela Haines MD Work Phone: [facility] 01-22-2025 12:31-0400 Heart rate 60 /min Angela Haines MD Work Phone: [facility] 01-22-2025 12:31-0400 Respiratory rate 15 /min Angela Haines MD Work Phone: [facility] 01-22-2025 12:31-0400 SaO2% (BldA) [Mass fraction] 97 % Angela Haines MD Work Phone: [facility] 01-22-2025 12:31-0400 Systolic blood pressure 136 mm[Hg] Angela Haines MD Work Phone: [facility] 01-22-2025 11:06-0400 Body height 162.1 cm Pul Wstr Work Phone: [facility] 01-22-2025 11:06-0400 Body mass index (BMI) [Ratio] 30.4 kg/m2 Pulm Wstr Work Phone: [facility] 01-22-2025 11:06-0400 Body weight 79.83 kg Pulm Wstr Work Phone: [facility] 01-22-2025 11:06-0400 Heart rate 60 /min Pulm Wstr Work Phone: [facility] 01-22-2025 11:06-0400 Respiratory rate 15 /min Pulm Wstr Work Phone: [facility] 01-22-2025 11:06-0400 SaO2% (BldA) [Mass fraction] 97 % Pulm Wstr Work Phone: [facility] 01-19-2025 09:48-0400 Diastolic blood pressure 74 mm[Hg] Max Rodriguez MD Work Phone: [facility] 01-19-2025 09:48-0400 Systolic blood pressure 148 mm[Hg] Max Rodriguez MD Work Phone: [facility] 01-19-2025 09:05-0400 Body mass index (BMI) [Ratio] 31 kg/m2 Max Rodriguez MD Work Phone: [facility] 01-19-2025 09:05-0400 Body weight 79.38 kg Max Rodriguez MD Work Phone: [facility] 01-19-2025 09:05-0400 Heart rate 62 /min Max Rodriguez MD Work Phone: [facility] 01-19-2025 09:05-0400 Respiratory rate 16 /min Max Rodriguez MD Work Phone: [facility] 01-10-2025 11:28-0500 Body mass index (BMI) [Ratio] 31 kg/m2 Max Rodriguez MD Work Phone: [facility] 01-10-2025 11:28-0500 Body temperature 98.01 [degF] Max Rodriguez MD Work Phone: [facility] 01-10-2025 11:28-0500 Body weight 79.38 kg Max Rodriguez MD Work Phone: [facility] 01-10-2025 11:28-0500 Diastolic blood pressure 70 mm[Hg] Max Rodriguez MD Work Phone: [facility] 01-10-2025 11:28-0500 Heart rate 72 /min Max Rodriguez MD Work Phone: [facility] 01-10-2025 11:28-0500 Respiratory rate 18 /min Max Rodriguez MD Work Phone: [facility] 01-10-2025 11:28-0500 SaO2% (BldA) [Mass fraction] 92 % Max Rodriguez MD Work Phone: [facility] 01-10-2025 11:28-0500 Systolic blood pressure 136 mm[Hg] Max Rodriguez MD Work Phone: [facility] 09-19-2024 09:34-0500 Body mass index (BMI) [Ratio] 30.65 kg/m2 Max Rodriguez MD Work Phone: [facility] 09-19-2024 09:34-0500 Body weight 78.47 kg Max Rodriguez MD Work Phone: [facility] 09-19-2024 09:34-0500 Diastolic blood pressure 80 mm[Hg] Max Rodriguez MD Work Phone: [facility] 09-19-2024 09:34-0500 Heart rate 60 /min Max Rodriguez MD [facility] [facility] 09-19-2024 09:34-0500 Respiratory rate 16 /min Max Rodriguez MD Work Phone: [facility] 09-19-2024 09:34-0500 Systolic blood pressure 142 mm[Hg] Max Rodriguez MD Work Phone: [facility] 09-15-2024 12:56-0500 Body height 162.6 cm Stephan Lewis CAKE TESTER-CURRENCY EXCHANGE SPECIALIST Work Phone: [facility] 09-15-2024 12:56-0500 Body mass index (BMI) [Ratio] 29.18 kg/m2 Stephan Joshua CAKE TESTER-CURRENCY EXCHANGE SPECIALIST Work Phone: [facility] 09-15-2024 12:56-0500 Body temperature 98.6 [degF] Stephan Joshua CAKE TESTER-CURRENCY EXCHANGE SPECIALIST Work Phone: 1(093)[phone] [address] 09-15-2024 12:56-0500 Body weight 77.11 kg Stephan Joshua CAKE TESTER-CURRENCY EXCHANGE SPECIALIST Work Phone: [facility] 09-15-2024 12:56-0500 Diastolic blood pressure 69 mm[Hg] Stephan Joshua CAKE TESTER-CURRENCY EXCHANGE SPECIALIST Work Phone: 2(243)[phone] [address] 09-15-2024 12:56-0500 Heart rate 61 /min Stephan Joshua CAKE TESTER-CURRENCY EXCHANGE SPECIALIST Work Phone: 0(597)[phone] [address] 09-15-2024 12:56-0500 Respiratory rate 14 /min Stephan Joshua CAKE TESTER-CURRENCY EXCHANGE SPECIALIST Work Phone: 3([phone] [address] 09-15-2024 12:56-0500 SaO2% (BldA) [Mass fraction] 96 % Stephan Joshua CAKE TESTER-CURRENCY EXCHANGE SPECIALIST Work Phone: [facility] 09-15-2024 12:56-0500 Systolic blood pressure 127 mm[Hg] Stephan Joshua CAKE TESTER-CURRENCY EXCHANGE SPECIALIST Work Phone: [facility] 08-02-2024 08:35-0400 Body mass index (BMI) [Ratio] 30.11 kg/m2 Max Rodriguez MD Work Phone: [facility] 08-02-2024 08:35-0400 Body weight 77.11 kg Max Rodriguez MD Work Phone: [facility] 08-02-2024 08:35-0400 Diastolic blood pressure 60 mm[Hg] Max Rodriguez MD Work Phone: [facility] 08-02-2024 08:35-0400 Heart rate 60 /min Max Rodriguez MD Work Phone: [facility] 08-02-2024 08:35-0400 Respiratory rate 16 /min Max Rodriguez MD Work Phone: [facility] 08-02-2024 08:35-0400 Systolic blood pressure 126 mm[Hg] Max Rodriguez MD Work Phone: [facility] 05-16-2024 09:34-0400 Body mass index (BMI) [Ratio] 29.94 kg/m2 Max Rodriguez MD Work Phone: [facility] 05-16-2024 09:34-0400 Body weight 76.66 kg Max Rodriguez MD Work Phone: [facility] 05-16-2024 09:34-0400 Diastolic blood pressure 86 mm[Hg] Max Rodriguez MD Work Phone: [facility] 05-16-2024 09:34-0400 Heart rate 60 /min Max Rodriguez MD Work Phone: [facility] 05-16-2024 09:34-0400 Respiratory rate 16 /min Max Rodriguez MD Work Phone: [facility] 05-16-2024 09:34-0400 Systolic blood pressure 146 mm[Hg] Max Rodriguez MD Work Phone: [facility] 04-28-2024 09:49-0400 Body mass index (BMI) [Ratio] 29.58 kg/m2 Max Rodriguez MD Work Phone: [facility] 04-28-2024 09:49-0400 Body weight 75.75 kg Max Rodriguez MD Work Phone: [facility] 04-28-2024 09:49-0400 Diastolic blood pressure 62 mm[Hg] Max Rodriguez MD Work Phone: [facility] 04-28-2024 09:49-0400 Heart rate 60 /min Max Rodriguez MD Work Phone: [facility] 04-28-2024 09:49-0400 Respiratory rate 16 /min Max Rodriguez MD Work Phone: [facility] 04-28-2024 09:49-0400 Systolic blood pressure 128 mm[Hg] Max Rodriguez MD Work Phone: [facility] 03-17-2024 10:08-0400 Body mass index (BMI) [Ratio] 29.76 kg/m2 Nicole Zhang CAKE TESTER.CURRENCY EXCHANGE SPECIALIST Work Phone: [facility] 03-17-2024 10:08-0400 Body weight 76.2 kg Nicole Zhang CAKE TESTER.CURRENCY EXCHANGE SPECIALIST Work Phone: [facility] 03-17-2024 10:08-0400 Diastolic blood pressure 51 mm[Hg] Nicole Zhang CAKE TESTER.CURRENCY EXCHANGE SPECIALIST Work Phone: [facility] 03-17-2024 10:08-0400 Heart rate 48 /min Nicole Zhang CAKE TESTER.CURRENCY EXCHANGE SPECIALIST Work Phone: [facility] 03-17-2024 10:08-0400 Respiratory rate 14 /min Nicole Zhang CAKE TESTER.CURRENCY EXCHANGE SPECIALIST Work Phone: [facility] 03-17-2024 10:08-0400 Systolic blood pressure 170 mm[Hg] Nicole Zhang CAKE TESTER.CURRENCY EXCHANGE SPECIALIST Work Phone: [facility] 01-26-2024 10:47-0400 Body weight 77.56 kg Max Rodriguez MD Work Phone: [facility] 01-26-2024 10:47-0400 Diastolic blood pressure 68 mm[Hg] Max Rodriguez MD Work Phone: [facility] 01-26-2024 10:47-0400 Heart rate 70 /min Max Rodriguez MD Work Phone: [facility] 01-26-2024 10:47-0400 Respiratory rate 16 /min Max Rodriguez MD Work Phone: [facility] 01-26-2024 10:47-0400 Systolic blood pressure 138 mm[Hg] Max Rodriguez MD Work Phone: [facility] 01-21-2024 08:40-0400 Body height 162.[address] Max Rodriguez Work Phone: [facility] 01-21-2024 08:40-0400 Body mass index (BMI) [Ratio] 29 kg/m2 Dr. Max Rodriguez Work Phone: [facility] 01-21-2024 08:40-0400 Body weight 76.[address] Max Rodriguez Work Phone: [facility] 01-21-2024 08:40-0400 Diastolic blood pressure 84 mm[Hg] Dr. Max Rodriguez Work Phone: [facility] 01-21-2024 08:40-0400 Heart rate 53 /min Dr. Max Rodriguez Work Phone: [facility] 01-21-2024 08:40-0400 Respiratory rate 18 /min Dr. Max Rodriguez Work Phone: [facility] 01-21-2024 08:40-0400 SaO2% (BldA) [Mass fraction] 96 % Dr. Max Rodriguez Work Phone: [facility] 01-21-2024 08:40-0400 Systolic blood pressure 142 mm[Hg] Dr. Max Rodriguez Work Phone: [facility] 12-21-2023 09:41-0500 Body temperature 97.2 [degF] Max Rodriguez MD Work Phone: [facility] 12-21-2023 09:41-0500 Body weight 78.02 kg Max Rodriguez MD Work Phone: [facility] 12-21-2023 09:41-0500 Diastolic blood pressure 70 mm[Hg] Max Rodriguez MD Work Phone: [facility] 12-21-2023 09:41-0500 Heart rate 52 /min Max Rodriguez MD Work Phone: [facility] 12-21-2023 09:41-0500 Respiratory rate 16 /min Max Rodriguez MD Work Phone: [facility] 12-21-2023 09:41-0500 SaO2% (BldA) [Mass fraction] 93 % Max Rodriguez MD Work Phone: [facility] 12-21-2023 09:41-0500 Systolic blood pressure 136 mm[Hg] Max Rodriguez MD Work Phone: [facility] 12-16-2023 07:55-0500 Body mass index (BMI) [Ratio] 29.5 kg/m2 Dr. Max Rodriguez Work Phone: [facility] 12-16-2023 07:55-0500 Body temperature 97.8 [degF] Dr. Max Rodriguez Work Phone: [facility] 12-16-2023 07:55-0500 Body weight 78.[address] Max Rodriguez Work Phone: [facility] 12-16-2023 07:55-0500 Diastolic blood pressure 59 mm[Hg] Dr. Max Rodriguez Work Phone: [facility] 12-16-2023 07:55-0500 Heart rate 60 /min Dr. Max Rodriguez Work Phone: [facility] 12-16-2023 07:55-0500 Respiratory rate 20 /min Dr. Max Rodriguez Work Phone: [facility] 12-16-2023 07:55-0500 SaO2% (BldA) [Mass fraction] 98 % Dr. Max Rodriguez Work Phone: [facility] 12-16-2023 07:55-0500 Systolic blood pressure 118 mm[Hg] Dr. Max Rodriguez Work Phone: [facility] 12-13-2023 22:05-0500 Diastolic blood pressure 56 mm[Hg] [facility] 12-13-2023 22:05-0500 Heart rate 52 /min [facility] 12-13-2023 22:05-0500 Respiratory rate 18 /min [facility] 12-13-2023 22:05-0500 SaO2% (BldA) [Mass fraction] 94 % [facility] 12-13-2023 22:05-0500 Systolic blood pressure 137 mm[Hg] [facility] 12-13-2023 18:06-0500 Body height 162.56 cm [facility] 12-13-2023 18:06-0500 Body temperature 96.7 [degF] [facility] 10-22-2023 10:50-0500 Body weight 76.66 kg Nicole Zhang APRN.CURRENCY EXCHANGE SPECIALIST Work Phone: [facility] 10-22-2023 10:50-0500 Diastolic blood pressure 72 mm[Hg] Nicole Zhang CAKE TESTER.CURRENCY EXCHANGE SPECIALIST Work Phone: [facility] 10-22-2023 10:50-0500 Heart rate 60 /min Nicole Zhang CAKE TESTER.CURRENCY EXCHANGE SPECIALIST Work Phone: [facility] 10-22-2023 10:50-0500 Respiratory rate 14 /min Nicole Zhang CAKE TESTER.CURRENCY EXCHANGE SPECIALIST Work Phone: [facility] 10-22-2023 10:50-0500 Systolic blood pressure 154 mm[Hg] Nicole Zhang CAKE TESTER.CURRENCY EXCHANGE SPECIALIST Work Phone: [facility] 08-30-2023 08:48-0400 Diastolic blood pressure 80 mm[Hg] Nicole Zhang CAKE TESTER.CURRENCY EXCHANGE SPECIALIST Work Phone: [facility] 08-30-2023 08:48-0400 Systolic blood pressure 168 mm[Hg] Nicole Zhang CAKE TESTER.CURRENCY EXCHANGE SPECIALIST Work Phone: [facility] 08-30-2023 08:38-0400 Body height 160 cm Nicole Zhang CAKE TESTER.CURRENCY EXCHANGE SPECIALIST Work Phone: [facility] 08-30-2023 08:38-0400 Body weight 74.84 kg Nicole Zhang CAKE TESTER.CURRENCY EXCHANGE SPECIALIST Work Phone: [facility] 08-30-2023 08:38-0400 Heart rate 62 /min Nicole Zhang CAKE TESTER.CURRENCY EXCHANGE SPECIALIST Work Phone: [facility] 08-30-2023 08:38-0400 Respiratory rate 16 /min Nicole Zhang APRN.CNP Work Phone: [facility] 07-23-2023 11:40-0400 Diastolic blood pressure 60 mm[Hg] Max Rodriguez MD Work Phone: [facility] 07-23-2023 11:40-0400 Systolic blood pressure 182 mm[Hg] Max Rodriguez MD Work Phone: [facility] 07-23-2023 10:59-0400 Heart rate 56 /min Max Rodriguez MD Work Phone: [facility] 07-23-2023 10:45-0400 Body weight 77.11 kg Max Rodriguez MD Work Phone: [facility] 07-23-2023 10:45-0400 Respiratory rate 16 /min Max Rodriguez MD Work Phone: [facility] 07-23-2023 10:45-0400 SaO2% (BldA) [Mass fraction] 94 % Max Rodriguez MD Work Phone: [facility] 05-12-2023 14:20-0400 Diastolic blood pressure 94 mm[Hg] [facility] 05-12-2023 14:20-0400 Heart rate 57 /min [facility] 05-12-2023 14:20-0400 Systolic blood pressure 168 mm[Hg] [facility] 05-12-2023 11:21-0400 Body height 162.56 cm [facility] 05-12-2023 11:21-0400 Body mass index (BMI) [Ratio] 29.8 kg/m2 [facility] 05-12-2023 11:21-0400 Body temperature 98.2 [degF] [facility] 05-12-2023 11:21-0400 Body weight 78.9 kg [facility] 05-12-2023 11:21-0400 Respiratory rate 18 /min [facility] 05-06-2023 19:24-0400 Diastolic blood pressure 62 mm[Hg] [facility] 05-06-2023 19:24-0400 Systolic blood pressure 171 mm[Hg] [facility] 05-06-2023 18:45-0400 Heart rate 53 /min [facility] 05-06-2023 18:45-0400 Respiratory rate 17 /min [facility] 05-06-2023 18:45-0400 SaO2% (BldA) [Mass fraction] 94 % [facility] 05-06-2023 15:26-0400 Body height 162.56 cm [facility] 05-06-2023 15:26-0400 Body mass index (BMI) [Ratio] 29.7 kg/m2 [facility] 05-06-2023 15:26-0400 Body temperature 98.3 [degF] [facility] 05-06-2023 15:26-0400 Body weight 78.7 kg [facility] 04-22-2023 10:15-0400 Body weight 77.56 kg Nicole Zhang APRN.CURRENCY EXCHANGE SPECIALIST Work Phone: [facility] 04-22-2023 10:15-0400 Diastolic blood pressure 68 mm[Hg] Nicole Zhang APRN.CURRENCY EXCHANGE SPECIALIST Work Phone: [facility] 04-22-2023 10:15-0400 Heart rate 57 /min Nicole Zhang APRN.CURRENCY EXCHANGE SPECIALIST Work Phone: [facility] 04-22-2023 10:15-0400 Respiratory rate 16 /min Nicole Zhagn APRN.CURRENCY EXCHANGE SPECIALIST Work Phone: [facility] 04-22-2023 10:15-0400 SaO2% (BldA) [Mass fraction] 94 % Nicole Zhang APRN.CURRENCY EXCHANGE SPECIALIST Work Phone: [facility] 04-22-2023 10:15-0400 Systolic blood pressure 152 mm[Hg] Nicole Zhang APRN.CURRENCY EXCHANGE SPECIALIST Work Phone: [facility] 01-20-2023 10:36-0400 Diastolic blood pressure 82 mm[Hg] Max Rodriguez MD Work Phone: [facility] 01-20-2023 10:36-0400 Systolic blood pressure 148 mm[Hg] Max Rodriguez MD Work Phone: [facility] 01-20-2023 09:33-0400 Body height 161.3 cm Max Rodriguez MD Work Phone: [facility] 01-20-2023 09:33-0400 Body weight 76.2 kg Max Rodriguez MD Work Phone: [facility] 01-20-2023 09:33-0400 Heart rate 58 /min Max Rodriguez MD Work Phone: [facility] 01-20-2023 09:33-0400 SaO2% (BldA) [Mass fraction] 98 % Max Rodriguez MD Work Phone: [facility] 09-30-2022 10:15-0500 Body temperature 97.3 [degF] Max Rodriguez MD Work Phone: [facility] 09-30-2022 10:15-0500 Body weight 76.66 kg Max Rodriguez MD Work Phone: [facility] 09-30-2022 10:15-0500 Diastolic blood pressure 70 mm[Hg] Max Rodriguez MD Work Phone: [facility] 09-30-2022 10:15-0500 Heart rate 64 /min Max Rodriguez MD Work Phone: [facility] 09-30-2022 10:15-0500 Respiratory rate 14 /min Max Rodriguez MD Work Phone: [facility] 09-30-2022 10:15-0500 Systolic blood pressure 158 mm[Hg] Max Rodriguez MD Work Phone: [facility] 07-08-2022 17:01-0400 Body weight 77.11 kg Max Rodriguez MD Work Phone: [facility] 07-08-2022 17:01-0400 Diastolic blood pressure 86 mm[Hg] Max Rodriguez MD Work Phone: [facility] 07-08-2022 17:01-0400 Heart rate 60 /min Max Rodriguez MD Work Phone: [facility] 07-08-2022 17:01-0400 Respiratory rate 16 /min Max Rodriguez MD Work Phone: [facility] 07-08-2022 17:01-0400 Systolic blood pressure 128 mm[Hg] Max Rodriguez MD Work Phone: [facility] 03-20-2022 13:32-0400 Body weight 77.66 kg Max Rodriguez MD Work Phone: [facility] 03-20-2022 13:32-0400 Diastolic blood pressure 86 mm[Hg] Max Rodriguez MD Work Phone: [facility] 03-20-2022 13:32-0400 Heart rate 68 /min Max Rodriguez MD Work Phone: [facility] 03-20-2022 13:32-0400 Respiratory rate 16 /min Max Rodriguez MD Work Phone: [facility] 03-20-2022 13:32-0400 Systolic blood pressure 122 mm[Hg] Max Rodriguez MD Work Phone: [facility] 01-29-2022 08:04-0400 Body height 157.[address] Max Rodriguez Work Phone: [facility] Work Phone: 01-29-2022 08:04-0400 Body mass index (BMI) [Ratio] 31.6 kg/m2 Dr. Max Rodriguez Work Phone: [facility] Work Phone: 01-29-2022 08:04-0400 Body temperature 97.8 [degF] Dr. Max Rodriguez Work Phone: [facility] Work Phone: 01-29-2022 08:04-0400 Body weight 78.[address] Max Rodriguez Work Phone: [facility] Work Phone: 01-29-2022 08:04-0400 Diastolic blood pressure 79 mm[Hg] Dr. Max Rodriguez Work Phone: [facility] Work Phone: 01-29-2022 08:04-0400 Heart rate 50 /min Dr. Max Rodriguez Work Phone: [facility] Work Phone: 01-29-2022 08:04-0400 Respiratory rate 19 /min Dr. Max Rodriguez Work Phone: [facility] Work Phone: 01-29-2022 08:04-0400 SaO2% (BldA) [Mass fraction] 97 % Dr. Max Rodriguez Work Phone: [facility] Work Phone: 01-29-2022 08:04-0400 Systolic blood pressure 152 mm[Hg] Dr. Max Rodriguez Work Phone: [facility] Work Phone: Encounters Encounter Date Encounter Type Care Provider Facility Start: 07-30-2025 ambulatory Emmett Rasmussen Facility:[facility] Start: 07-25-2025 End: 07-25-2025 ambulatory MAX RODRIGUEZ Facility:[facility] Start: 07-20-2025 End: 07-24-2025 Chart abstracting Massiel Morales MA [facility] Comment on above: ext document (Cardio ) Start: 07-19-2025 End: 07-19-2025 Chart abstracting Max Rodriguez MD Work Phone: [facility] Comment on above: Outside [facility] Ordered Start: 07-19-2025 End: 07-19-2025 Patient encounter procedure Ilene Salter [place] -[facility] Work Phone: Start: 07-19-2025 End: 07-19-[address] Max Rodriguez MD Work Phone: -[facility] Start: 07-01-2025 End: 07-02-2025 Refill Max Rodriguez MD Work Phone: [facility] Comment on above: Refill Request Start: 06-27-2025 ambulatory Daniel Garcia [facility] Start: 06-25-2025 End: 06-25-2025 Patient Outreach Veronica Guajardo RN Work Phone: Director Chemistry Management Comment on above: Weekly phone contact (Recurring) for Transitional Care Management Start: 06-20-2025 End: 06-20-2025 Chart abstracting Max Rodriguez MD Work Phone: [facility] Comment on above: Outside Cardiology Start: 06-19-2025 End: 06-19-2025 Patient Outreach Veronica Guajardo RN Work Phone: Director Chemistry Management Comment on above: Weekly phone contact (Recurring) for Transitional Care Management Start: 06-14-2025 Non-patient / Non-visit Dr. Delores [place] -[facility] Work Phone: Start: 06-14-2025 End: 06-14-[address] Max Rodriguez MD Work Phone: -Pulmonary Services/Neurology Start: 06-14-2025 End: 06-14-[address] Massiel De La Cruz DO -Pulmonary Services/Neurology Work Phone: Start: 06-14-2025 End: 06-14-2025 ambulatory Max Rodriguez Facility:[facility] Start: 06-12-2025 End: 06-12-2025 ambulatory MAX RODRIGUEZ Facility:[facility] Start: 06-07-2025 End: 06-07-2025 Patient encounter procedure Ilene Salter [place] -[facility] Work Phone: Start: 06-07-2025 End: 06-07-[address] Max Rodriguez MD Work Phone: -[facility] Start: 06-06-2025 Non-patient / Non-visit Dr. Massiel De La Cruz DO -[facility] Work Phone: Start: 06-06-2025 End: 06-06-2025 ambulatory Max Rodriguez Facility:[facility] Start: 06-06-2025 End: 06-06-2025 Non-patient / Non-visit Dr. Emmett Rasmussen MD -[facility] Work Phone: Start: 06-05-2025 End: 06-05-2025 ambulatory Max Rodriguez MD Work Phone: [facility] Comment on above: Allied Health Visit (Medication adherence outreach/) Start: 06-05-2025 End: 06-05-2025 Chart abstracting Max Rodriguez MD Work Phone: [facility] Comment on above: ER Discharge Summary (H&P) Start: 06-05-2025 Non-patient / Non-visit Dr. Massiel De La Cruz DO -[facility] Work Phone: Start: 2025 End: 06-06-2025 Evaluation and management of inpatient Dr. Antonio Daly MD -Progressive Care Unit Work Phone: Start: 2025 Non-patient / Non-visit Dr. Antonio lovell MD -[facility] Work Phone: Start: 2025 End: 06-12-2025 ambulatory Nicole Zhang APRN.CNP [facility] Start: 2025 End: 06-12-2025 Follow-up encounter Nicole Zhang APRN.CNP Work Phone: [facility] Comment on above: Follow up visit? Start: 05-31-2025 End: 05-31-2025 Chart abstracting Max Rodriguez MD Work Phone: [facility] Comment on above: [facility] Start: 05-30-2025 End: 05-30-2025 Patient encounter procedure Ilene GRIMALDO -[facility] Work Phone: Start: 05-30-2025 End: 05-30-[address] Max Rodriguez MD Work Phone: -[facility] Comment on above: Allied Health Visit (Medication adherence outreach/) Start: 05-28-2025 End: 05-28-2025 Chart abstracting Max Rodriguez MD Work Phone: [facility] Comment on above: ER Discharge Summary Start: 05-26-2025 End: 05-26-2025 Emergency department patient visit Dr. Max Rodriguez MD Work Phone: -Emergency Department Work Phone: Start: 05-24-2025 End: 05-24-2025 Follow-up encounter Nicole Zhang APRN.CURRENCY EXCHANGE SPECIALIST Work Phone: [facility] [place] Start: 05-23-2025 ambulatory NICOLE ZHANG Facilit y:[facility] Start: 05-23-2025 End: 05-23-2025 Subsequent hospital visit by physician Ct Vaugh[facility] CT [facility] [place] Comment on above: Encounter for screen ing for cardiovascular disorders [Z13.6] Start: 05-21-2025 End: 05-21-2025 Patient encounter procedure Max Rodriguez MD Work Phone: [facility] [place] Comment on above: Arthritis of both kn ees (Primary Dx); Acute pain of right knee; Cyanosis; Decreased pulses in feet; Acquired hypothyroidism; Elevated hemoglobin A1c; Stage 3a chronic kidney disease (HCC); Low vitamin B12 level Coronary artery dise ase due to lipid rich plaque (Primary Dx); SOB (shortness of breath); Chest pain, unspecified type Start: 05-21-2025 End: 05-21-2025 ambulatory MAX RODRIGUEZ Facility:[facility] Start: 05-18-2025 End: 05-18-2025 Patient encounter procedure Nicole Zhang APRN.CURRENCY EXCHANGE SPECIALIST Work Phone: [facility] [place] Comment on above: Medicare annual well ness [...] Start: 05-18-2025 End: 05-18-2025 ambulatory NICOLE ZHANG Facility:[facility] Start: 03-23-2025 End: 03-23-2025 Office outpatient visit 25 minutes Daniel Garcia Work Phone: [facility] Start: 03-23-2025 ambulatory Daniel Garcia [facility] Start: 03-22-2025 End: 03-22-2025 Chart abstracting Max Rodriguez MD Work Phone: [facility] [place] Comment on above: Outside Cardiology Start: 03-22-2025 End: 03-22-[address] Emmett Rasmussen MD -[facility] Work Phone: Start: 03-22-2025 End: 03-22-[address] Max Rodriguez MD Work Phone: [facility] Work Phone: Start: 02-09-2025 End: 04-11-2025 Follow-up encounter Dileep Urias MD Work Phone: [facility] Start: 02-07-2025 End: 02-07-2025 Office outpatient visit 25 minutes Papi Beltran MD Work Phone: Orthopaedics Comment on above: Trochanteric bursiti s of right hip (Primary Dx); Primary osteoarthritis of both knees Start: 02-07-2025 End: 02-07-2025 ambulatory PAPI BELTRAN Facility:[facility] Start: 02-07-2025 End: 02-07-2025 Subsequent hospital visit by physician [facility] Work Phone: Radiology Comment on above: Pain [R52] Start: 02-05-2025 End: 02-05-2025 Chart abstracting Max Rodriguez MD Work Phone: [facility] Comment on above: Outside [facility]-FGR Ordered Start: 02-01-2025 End: 02-01-[address] Max Rodriguez MD Work Phone: [facility] Work Phone: Start: 02-01-2025 End: 02-01-[address] Emmett Rasmussen MD -Laboratory Work Phone: Start: 02-01-2025 End: 02-01-2025 ambulatory Max Rodriguez Facility:[facility] Start: 01-26-2025 End: 01-26-2025 Follow-up encounter Max Rodriguez MD Work Phone: [facility] Comment on above: Results Start: 01-26-2025 End: 01-26-2025 Patient encounter procedure Max Rodriguez MD Work Phone: [facility] Comment on above: SOB (shortness of br eath) (Primary Dx); Lymphadenopathy; Acquired hypothyroidism; Essential hypertension; Low vitamin B12 level Start: 01-26-2025 End: 01-26-2025 ambulatory MAX RODRIGUEZ Facility:[facility] Start: 01-25-2025 End: 01-25-2025 Telephone encounter Max Rodriguez MD Work Phone: [facility] Comment on above: Results Start: 01-24-2025 ambulatory Max Rodriguez Facility :[facility] Start: 01-24-2025 Non-patient / Non-visit Dr. Delores [place] -[facility] Start: 01-24-2025 End: 01-24-[address] Max Rodriguez MD Work Phone: [facility] Work Phone: Start: 01-24-2025 End: 01-24-[address] Max Rodriguez MD -Cardiovascular Services Work Phone: Start: 01-24-2025 End: 01-24-2025 ambulatory Max Rodriguez Facility:[facility] Start: 01-22-2025 End: 01-22-2025 ambulatory ANGELA HAINES Facility:[facility] Start: 01-22-2025 End: 01-22-2025 Patient encounter procedure Angela Haines MD Work Phone: Pulmonary Medicine Comment on above: HATFIELD (dyspnea on exer tion) (Primary Dx); Chronic cough; Former cigarette smoker; Coronary artery disease involving twenty-nine palms coronary artery of twenty-nine palms heart without angina pectoris Start: 01-22-2025 End: 01-22-2025 ambulatory Pulm Lab [facility] Work Phone: PULM LAB [facility] Comment on above: Spirometry Start: 01-22-2025 End: 01-22-2025 Patient encounter procedure Pulm Lab [facility] Work Phone: PULM LAB [facility] Start: 01-19-2025 End: 01-19-2025 Patient encounter procedure Max Rodriguez MD Work Phone: Family [facility] [place] Comment on above: Arthritis of both kn ees (Primary Dx); Chronic pain of both knees Start: 01-19-2025 End: 01-19-2025 ambulatory MAX RODRIGUEZ Facility:[facility] Start: 01-16-2025 End: 01-17-2025 Telephone encounter Max Rodriguez MD Work Phone: [facility] Comment on above: Results Start: 01-16-2025 End: 01-16-[address] Max Rodriguez MD Work Phone: [facility] Work Phone: Start: 01-16-2025 End: 01-16-[address] Max Rodriguez MD -Radiology, [facility] Work Phone: Start: 01-15-2025 End: 01-26-2025 Orders Only Papi Beltran MD Work Phone: Appointment Center Comment on above: Pain (Primary Dx) Start: 01-10-2025 End: 01-10-2025 ambulatory MAX RODRIGUEZ Facility:[facility] Start: 01-10-2025 End: 01-10-2025 Patient encounter procedure Max Rodriguez MD Work Phone: Family [facility] Comment on above: Pharyngitis, unspeci fied etiology (Primary Dx); Neck mass; SOB (shortness of breath); HATFIELD (dyspnea on exertion); Decreased stamina; Coronary artery 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; Pulmonary emphysema, unspecified emphysema type (HCC); Dysphagia, unspecified type Start: 01-06-2025 End: 01-08-2025 Refill Max Rodriguez MD Work Phone: Family [facility] [place] Comment on above: Refill Request Start: 01-03-2025 End: 01-03-2025 Refill Nicole Zhang APRN.CNP Work Phone: [facility] [place] Comment on above: Refill Request Start: 11-25-2024 End: 11-27-2024 Refill Max Rodriguez MD Work Phone: Family [facility] [place] Comment on above: Refill Request Start: 10-23-2024 End: 10-23-2024 ambulatory SHAMIKA Roa [facility] Start: 10-18-2024 End: 10-18-2024 ambulatory [facility] Start: 10-11-2024 End: 10-11-2024 Telephone encounter Dora Whitman PA-C Work Phone: [facility] [place] Comment on above: Results Start: 10-11-2024 End: 10-11-[address] [facility] Start: 10-10-2024 End: 10-10-2024 ambulatory MAX RODRIGUEZ Facility:[facility] Start: 10-09-2024 End: 10-10-2024 Refill Max Rodriguez MD Work Phone: Internal Medicine [place] Comment on above: Refill Request Start: 10-06-2024 End: 10-06-2024 Refill Dora Whitman PA-C Work Phone: [facility] [place] Comment on above: Refill Request Start: 10-04-2024 End: 10-04-2024 ambulatory [facility] Start: 09-27-2024 End: 09-27-2024 ambulatory [facility] Start: 09-25-2024 End: 09-25-2024 ambulatory [facility] Start: 09-20-2024 End: 09-20-[address] amb[address] [facility] Start: 09-19-2024 End: 09-19-2024 ambulatory MAX RODRIGUEZ Facility:[facility] Start: 09-19-2024 End: 09-19-2024 Patient encounter procedure Max Rodriguez MD Work Phone: [facility] [place] Comment on above: Arthritis of both kn ees (Primary Dx); Chronic pain of both knees Start: 09-18-2024 End: 09-18-2024 ambulatory [facility] Start: 09-15-2024 End: 09-15-2024 Patient encounter procedure Stephan Lewis CAKE TESTER-CURRENCY EXCHANGE SPECIALIST Work Phone: [facility] Comment on above: Oral mucocele (Prima ry Dx) Start: 09-15-2024 End: 09-15-2024 ambulatory STEPHAN LEWIS [facility] Start: 09-13-2024 End: 09-13-2024 ambulatory [facility] Start: 09-11-2024 End: 09-11-2024 ambulatory [facility] Start: 09-06-2024 End: 09-06-2024 ambulatory [facility] Start: 09-04-2024 End: 09-04-2024 ambulatory [facility] Start: 08-30-2024 End: 08-30-2024 ambulatory [facility] Start: 08-23-2024 End: 08-23-2024 ambulatory [facility] Start: 08-21-2024 End: 08-21-2024 ambulatory LOUISA R TESSEAN [facility] Start: 08-09-2024 End: 08-09-2024 Daniel Garcia Work Phone: [facility] Start: 08-09-2024 ambulatory Daniel Garcia [facility] Start: 08-03-2024 End: 08-03-2024 ambulatory Max Rodriguez MD Work Phone: Family Medicine [place] Comment on above: Vaccines Start: 08-02-2024 End: 08-02-2024 ambulatory MAX RODRIGUEZ Facility:[facility] Start: 08-02-2024 End: 08-02-2024 Patient encounter procedure Max Rodriguez MD Work Phone: [facility] [place] Comment on above: Mixed hyperlipidemia (Primary Dx); [...] Telephone encounter Max Rodriguez MD Work Phone: [facility] [place] Comment on above: Results Start: 07-06-2024 End: 07-07-2024 Refill Dora Whitman PA-C Work Phone: [facility] [place] Comment on above: Refill Request Start: 05-17-2024 End: 05-17-2024 Office outpatient visit 25 minutes Daniel Garcia Work Phone: [facility] Start: 05-16-2024 End: 05-16-2024 Patient encounter procedure Max Rodriguez MD Work Phone: [facility] [place] Comment on above: Arthritis of both kn ees (Primary Dx); Chronic pain of both knees Start: 04-28-2024 End: 04-28-2024 Patient encounter procedure Max Rodriguez MD Work Phone: [facility] [place] Comment on above: Essential hypertensi on [...] weight; Need for vaccination Start: 04-10-2024 Refill Droa Keane on PA-C Work Phone: [facility] [place] Comment on above: Refill Request Start: 03-17-2024 End: 03-17-2024 Patient encounter procedure Nicole Zhang APRN.CNP Work Phone: [facility] [place] Comment on above: Essential hypertensi on (Primary Dx); Acquired hypothyroidism Start: 02-25-2024 End: 02-25-2024 Daniel Garcia Work Phone: [facility] Start: 02-10-2024 Refill Max patel MD Work Phone: [facility] [place] Start: 01-27-2024 Telephone encounter Max Rodriguez MD Work Phone: [facility] [place] Comment on above: Results Start: 01-26-2024 End: 01-26-2024 Patient encounter procedure Max Rodriguez MD Work Phone: [facility] [place] Comment on above: Medicare annual well ness [...] encounter procedure Dr. Max Rodriguez Work Phone: [facility] Work Phone: Start: 01-20-2024 Chart abstracting Max verde MD Work Phone: [facility] [place] Comment on above: Outside Echo Start: 01-18-2024 Non-patient / Non-visit Dr. Alexis Rodriguez Work Phone: [facility] Start: 01-18-2024 End: 01-18-[address] Max Rodriguez Work Phone: [facility] Work Phone: Start: 01-18-2024 End: 01-18-[address] Max Rodriguez Work Phone: [facility] Work Phone: Start: 01-10-2024 End: 01-10-2024 Patient encounter procedure Bob Whiteside MD Work Phone: Orthopaedics Comment on above: Chronic pain of both knees (Primary Dx); Primary osteoarthritis of both knees Start: 01-07-2024 Refill [facility]el MD [facility] Comment on above: Refill Request Start: 12-24-2023 Telephone encounter Max Rodriguez MD Work [facility]: [facility] Comment on above: Results Start: 12-21-2023 Telephone encounter Katherin Schmidt MA [facility] Comment on above: Orders Results Start: 12-21-2023 End: 12-21-2023 Patient encounter procedure Max Rodriguez MD Work [facility]: [facility] Comment on above: Coronary artery dise ase due to lipid rich plaque (Primary Dx); Decreased stamina; HATFIELD (dyspnea on exertion); Dizziness; Jaundice Start: 12-16-2023 Chart abstracting Max verde MD Work Phone: [facility] Comment on above: Outside Pulmonary Start: 12-16-2023 End: 12-16-[address] Max Rodriguez Work Phone: [facility] [place] Work Phone: Start: 12-14-2023 Telephone encounter Katherin Schmidt MA [facility] Comment on above: Appointment; Results Start: 12-13-2023 End: 12-13-2023 Emergency department patient visit [facility] Work Phone: Start: 12-09-2023 Telephone encounter Max Rodriguez MD Work Phone: [facility] Comment on above: Results Start: 12-08-2023 End: 12-08-2023 Subsequent hospital visit by physician Xr [facility] Work Phone: Radiology Comment on above: Acute pain of right shoulder [M25.511] Start: 12-03-2023 End: 12-03-2023 Office outpatient visit 25 minutes Daniel Garcia Work Phone: [facility] [place] Start: 10-22-2023 End: 10-22-2023 Patient encounter procedure Nicole Zhang APRN.CNP Work Phone: [facility] Comment on above: Essential hypertensi on (Primary Dx) Start: 10-17-2023 Telephone encounter Max Rodriguez MD Work Phone: [facility] Comment on above: Results Start: 10-11-2023 Refill Dora Keane on PA-C Work Phone: [facility] Comment on above: Refill Request Start: 09-24-2023 End: 09-24-2023 Daniel Garcia Work Phone: [facility] Start: 08-30-2023 Telephone encounter Max Rodriguez MD Work Phone: [facility] Comment on above: Results Start: 08-30-2023 End: 08-30-2023 Patient encounter procedure Bob Whiteside MD Work Phone: Orthopaedics Comment on above: Primary osteoarthrit is of both knees (Primary Dx); Chronic pain of both knees Start: 08-30-2023 End: 08-30-2023 Patient encounter procedure Nicole Trianajade STANLEY Work Phone: [facility] [place] Comment on above: Essential hypertensi on (Primary Dx); Encounter for immunization Start: 07-23-2023 End: 07-23-2023 Patient encounter procedure Max Rodriguez MD Work Phone: [facility] Comment on above: Essential hypertensi [...] 07-10-2023 Refill Max patel MD Work Phone: [facility] Comment on above: Refill Request Start: 07-07-2023 Telephone encounter Max Rodriguez MD Work Phone: [facility] Comment on above: Results Start: 06-25-2023 End: 06-25-2023 Office outpatient visit 25 minutes Daniel Garcia Work Phone: [facility] Start: 05-27-2023 End: 05-28-2023 Patient encounter procedure Bob Whiteside MD Work Phone: Orthopaedics Comment on above: Primary osteoarthrit is of both knees (Primary Dx); Chronic pain of both knees Start: 05-19-2023 Orders Only Bob Whiteside MD Work Phone: Orthopaedics Comment on above: Pain in both knees, unspecified chronicity (Primary Dx) Start: 05-13-2023 Chart abstracting Max verde MD Work Phone: [phone] [place] [address] Start: 05-13-2023 Telephone encounter Nicole Fernandez nighat CAKE TESTER.CURRENCY EXCHANGE SPECIALIST Work Phone: [facility] Comment on above: Results Start: 05-12-2023 End: 05-12-2023 [facility] Start: 05-06-2023 End: 05-06-2023 Emergency department patient visit [facility] Work Phone: Start: 04-22-2023 End: 04-22-2023 Patient encounter procedure Nicole Zhang CAKE TESTER.CURRENCY EXCHANGE SPECIALIST Work Phone: [facility] Comment on above: Discolored skin (Sangita haroldo Dx); Arthritis of both knees; Encounter for immunization Start: 04-16-2023 End: 04-16-2023 Daniel Garcia Work Phone: [facility] Start: 04-09-2023 End: 04-09-2023 Daniel Garcia Work Phone: [facility] Start: 04-08-2023 Refill Max patel MD Work Phone: [facility] Comment on above: Refill Request Start: 02-22-2023 End: 02-22-2023 Patient encounter procedure Bob Whiteside MD Work Phone: Orthopaedics Comment on above: Primary osteoarthrit is of both knees (Primary Dx) Start: 02-12-2023 End: 02-12-2023 Office outpatient visit 25 minutes Daniel Garcia Work Phone: [facility] Start: 01-25-2023 Refill Dora pereyra PA-C Work Phone: [facility] Comment on above: Refill Request Start: 01-20-2023 End: 01-20-2023 Patient encounter procedure Max Rodriguez MD Work Phone: [facility] Comment on above: Medicare annual [...] 01-04-2023 Refill Max patel MD Work Phone: [facility] Comment on above: Refill Request Start: 12-11-2022 End: 12-11-2022 Daniel Garcia Work Phone: [facility] Start: 11-12-2022 End: 11-12-2022 Patient encounter procedure Bob Whiteside MD Work Phone: Orthopaedics Comment on above: Chronic pain of both knees (Primary Dx); Primary osteoarthritis of both knees Start: 10-16-2022 End: 10-16-2022 Office outpatient new 45 minutes Daniel Garcia Work Phone: [facility] Start: 10-04-2022 Telephone encounter Max Rodriguez MD Work Phone: [facility] Comment on above: Results Start: 09-30-2022 End: 09-30-2022 Patient encounter procedure Max Rodriguez MD Work Phone: [facility] Comment on above: Urine frequency [...] Max Rodriguez MD Work Phone: [facility] Comment on above: Essential hypertensi [...] 04-27-2022 ambulatory Fernanda Armstrong RN Work Phone: Director Chemistry Management Comment on above: [facility] Enrollment) Start: 04-14-2022 Non-patient / Non-visit Dr. Alexis Rodriguez Work Phone: [facility] Start: 04-13-2022 End: 04-13-[address] Max Rodriguez Work Phone: [facility] Services/Neurology Start: 03-22-2022 Telephone encounter Max Rodriguez MD Work Phone: [facility] Comment on above: Results Start: 03-20-2022 End: 03-20-2022 Patient encounter procedure Max Rodriguez MD Work Phone: [facility] Comment on above: Arthritis of both kn ees (Primary Dx); Osteoarthritis, unspecified osteoarthritis type, unspecified site; Medication management Start: 01-29-2022 End: 01-29-[address] Max Rodriguez [facility] Start: 12-03-2021 Patient encounter procedure Max Rodriguez MD Work Phone: [facility] Work Phone: Start: 03-31-2019 Patient encounter procedure Max Rodriguez Facility:[facility] Procedures Date Procedure Procedure Detail Performing Clinician Start: 06-27-2025 Bevacizumab injection D marisabel Garcia Start: 06-27-2025 Computerized ophthal vincent imaging retina Daniel Garcia Start: 06-27-2025 Intravitreal njx pharmacologic agt spx Daniel Garcia Start: 06-06-[address] Max Rodriguez MD Work Phone: Start: 06-06-2025 Serum inorganic phos phate measurement Dr. Max Rodriguez MD Work Phone: Start: 2025 Urnls dip stick/tabl et reagent auto microscopy Dr. Max Rodriguez MD Work Phone: Start: 2025 X-ray of chest, PA a nd lateral views Dr. Max Rodriguez MD Work Phone: Start: [address] Max Rodriguez MD Work Phone: Start: [address] Grazyna Rodriguez MD Work Phone: Start: [address] Grazyna Rodriguez MD Work Phone: Start: 05-26-[address] Grazyna Rodriguez MD Work Phone: Start: 05-26-2025 Urnls dip stick/tabl et reagent auto microscopy Dr. Max Rodriguez MD Work Phone: Start: 05-26-2025 CT angiography of ch est with contrast Dr. Max Rodriguez MD Work Phone: Start: 05-26-2025 D-dimer assay, quantitative Dr. Max Rodriguez MD Work Phone: Comment on above: D-Dimer ELEVATED (>0 .49): Additional studies and clinicalassessments are indicated to conclude diagnosis of:Deep Vein Thrombosis (DVT) or Pulmonary Embolism (PE)CRITICAL VALUE CALLED TO Silvia GARDNER05/26/25 1133 Jayleen Haque.RESULTS READ BACK BY SAME. Start: 05-26-[address] Max Rodriguez MD Work Phone: Start: 05-23-2025 Unlisted computed to mography procedure Nicole Zhang CAKE TESTER.CURRENCY EXCHANGE SPECIALIST Work Phone: Start: 03-23-2025 End: 03-23-2025 Bevacizumab injection Daniel Garcia MD Start: 03-23-2025 End: 03-23-2025 Computerized ophthalmic imaging retina Daniel Garcia MD Start: 03-23-2025 End: 03-23-2025 Intravitreal njx pharmacologic agt spx Daniel Garcia MD Start: 01-24-2025 Cardiovascular stres s test using pharmacologic stress agent Dr. Max Rodriguez MD Work Phone: Start: 01-22-2025 Co diffusing capacity E cornelia Haines MD Work Phone: Start: 01-16-[address] Jai Rodriguez MD Work Phone: Start: 08-09-2024 End: 08-09-2024 Bevacizumab injection Daniel Garcia MD Start: 08-09-2024 End: 08-09-2024 Computerized ophthalmic imaging retina Danile Garcia MD Start: 08-09-2024 End: 08-09-2024 Intravitreal njx pharmacologic agt spx Daniel Garcia MD Start: 07-20-2024 Thyrotropin [Units/v olume] in Serum or Plasma Stephan Lewis CAKE TESTER-CURRENCY EXCHANGE SPECIALIST Work Phone: Start: 05-17-2024 End: 05-17-2024 Bevacizumab injection Daniel Garcia MD Start: 05-17-2024 End: 05-17-2024 Computerized ophthalmic imaging retina Daniel Garcia MD Start: 05-17-2024 End: 05-17-2024 Intravitreal njx pharmacologic agt spx Daniel Garcia MD Start: 04-28-2024 [employer] COVI D-19 VACCINE () AGE 12+ YR [...] contrast Start: 12-13-[address] Grazyna Rodriguez Work Phone: Start: 12-08-2023 Radex shoulder compl [...] 08-30-2023 Arthrocentesis aspir &/inj major jt/bursa w/o Bob Whiteside MD Work Phone: Start: 08-30-2023 [employer] COVI D-19 VACCINE () AGE 12+ YR Nicole Zhang APRN.CNP Work [...] Daniel Garcia MD Start: 09-30-2022 Culture bacterial qu anttative colony count urine Max Rodriguez MD Work [...] History of coronary artery stent placement Dr. Emmett Rasmussen MD Comment on above: PCI-BMS-Mid RCA w/ 3 .0 x 15 mm Vision Stent 01/21/2010; PCI-MARCOS-Mid LCx w/ 2.25 x 28 mm Synergy 12/21/2019 Plan of Treatment Date Care Activity Detail Author Start: 04-22-2033 DTaP/Tdap/Td Vaccines (2 - Td or Tdap) DTaP/Tdap/Td Vaccines (2 - Td or Tdap) [facility] Start: 04-22-2033 Urine microalbumin profile [facility] Start: 01-20-2028 Diabetes Screening Diabetes Screening [facility] Start: 07-20-2027 Diabetes Screening Diabetes Screening [facility] Start: 12-31-2026 Diabetes Screening Diabetes Screening [facility] Start: 12-23-2026 Diabetes Screening Diabetes Screening [facility] Start: 12-21-2026 Diabetes Screening Diabetes Screening [facility] Start: 07-06-2026 DIABETES SCREEN DIABETES SCREEN [facility] Start: 07-06-2026 Diabetes Screening Diabetes Screening [facility] Start: 01-19-2026 Hepatitis B surface antibody level LDL Cholesterol [facility] Start: 01-12-2026 DIABETES SCREEN DIABETES SCREEN [facility] Start: 09-24-2025 End: 09-24-2025 Patient encounter procedure 09/24/2025 10:20 AM EST Office Visit [facility] [address] [facility] [place] [address] Max Rodriguez MD [address] [place] [address] 4 mo knee injection (40 min per PCP) [facility] [place] [place] Comment on above: 4 mo knee injection (40 min per PCP) Start: 08-23-2025 End: 08-23-2025 Patient encounter procedure 08/23/2025 9:40 AM EDT Office Visit Orthopaedics [address] [place] [address] Bob Whiteside MD [address] [place] [address] Eyal knee [facility] Comment on above: Eyal knee [facility]SI Start: 08-20-2025 End: 08-20-2025 Patient encounter procedure 08/20/2025 9:40 AM EDT Office Visit [facility] [place] [place] [address] [facility] [address] Max Rodriguez MD [address] [place] [address] follow up [facility] [place] [place] Comment on above: follow up Start: 08-08-2025 End: 11-07-2025 Basic metabolic 2000 panel - Serum or Plasma BASIC METABOLIC PANEL Lab Routine Stage 3a chronic kidney disease (HCC) Expected: 08/08/2025, Expires: 11/07/2025 [facility] Comment on above: Expected: 08/08/2025, Expires: Start: 08-08-2025 End: 11-07-2025 Cobalamin (Vitamin B12) [Mass/volume] in Serum or Plasma VITAMIN B12 Lab Routine Low vitamin B12 level Expected: 08/08/2025, Expires: 11/07/2025 [facility] Comment on above: Expected: 08/08/2025, Expires: Start: 08-08-2025 End: 11-07-2025 Hemoglobin A1c in Blood HEMOGLOBIN A1C Lab Routine Elevated hemoglobin A1c Expected: 08/08/2025, Expires: 11/07/2025 [facility] Comment on above: Expected: 08/08/2025, Expires: Start: 08-08-2025 End: 11-07-2025 Thyrotropin [Units/volume] in Serum or Plasma THYROID STIMULATING HORMONE Lab Routine Acquired hypothyroidism Expected: 08/08/2025, Expires: 11/07/2025 [facility] Comment on above: Expected: 08/08/2025, Expires: Start: 07-25-2025 End: 07-25-2025 Patient encounter procedure 07/25/2025 12:20 PM EDT Office Visit Family Medicine [address] [address] Gloria Chris APRN.[facility] [address] [place], [place] [id number] UTI symptoms (no availability with PCP triad) [facility] [place] Comment on above: UTI symptoms (no availability with PCP t vladimir) Start: 07-20-2025 Diabetes mellitus screening Diabetes Screening [facility] Start: 07-20-2025 Hemoglobin A1c measurement Diabetes: Hemoglobin A1C [facility] Start: 07-20-2025 Thyroid stimulating hormone measurement TSH Level [facility] Start: 07-19-2025 Evaluation of diagnostic study results [facility] Start: 07-09-2025 Influenza vaccination Influenza Vaccine (#1) [facility] Start: 06-27-2025 Anne Marie Garza - 3 Mos IO AVN OS [facility] Work Phone: Start: 06-11-2025 DIABETES SCREEN DIABETES SCREEN [facility] Start: 06-11-2025 End: 06-11-2025 Patient encounter procedure 06/11/2025 9:30 AM EDT Office Visit Cardiology [address] [place] [id number] Antonio Whatley MD [address] 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] Cardiology Comment on above: Coronary artery disease due to lipid jagdeep h plaque [I25.10, I25.83] Start: 06-08-2025 End: 06-08-2025 Patient encounter procedure 06/08/2025 12:30 PM EDT Office Visit Vasculary Surgery [address] [place] [address] Dx: Cyanosis [R23.0]; Decreased pulses in feet [R09.89] Vasculary Surgery Comment on above: Dx: Cyanosis [R23.0]; Decreased pulses i n feet [R09.89] Start: 06-07-2025 Evaluation of diagnostic study results [facility] Start: 06-06-2025 Patient discharge [facility] Start: 06-05-2025 Referral to service [facility] Start: 06-05-2025 Consultation [facility] Start: 06-05-2025 Thyroid stimulating hormone measurement [facility] Start: 06-05-2025 Inhalation therapy procedure [facility] Start: 2025 Application of intermittent pneumatic compression device [facility] Start: 2025 Assessment of risk of venous thromboembolism [facility] Start: 2025 Insertion of catheter into peripheral vein [facility] [facility] Start: 2025 Measuring intake and output [facility] Start: 2025 Oxygen therapy [facility] Start: 2025 Providing care according to standard [facility] Start: 2025 Provision of activity privileges [facility] Start: 2025 [facility] Start: 2025 Following clinical pathway protocol [facility] Start: 2025 Verification routine [facility] Start: 2025 Admission procedure [facility] Start: 2025 Hospital admission, emergency, from emergency room, medical nature [facility] Start: 2025 [facility] Start: 2025 End: 06-05-2025 [facility] Start: 2025 Bacteria identified in Blood by Culture Blood Culture [facility] Start: 2025 Bacteria identified in Urine by Culture Urine Culture [facility] Start: 2025 Blood culture Blood Culture [facility] Start: 2025 Urine culture [facility] Start: 05-26-2025 [facility] Start: 05-26-2025 Bacteria identified in Urine by Culture Urine Culture [facility] Start: 05-26-2025 [facility] Start: 05-26-2025 [facility] Start: 05-23-2025 End: 05-23-2025 Patient encounter procedure RADIO CT [facility] Comment on above: Dx: Encounter for screening for cardiova scular disorders [Z13.6] $95 COPAY/Dx: Encoun ter for screening for cardiovascular disorders [Z13.6] Start: 05-21-2025 End: 05-21-2025 Patient encounter procedure 05/21/2025 9:20 AM EDT Office Visit [address] [address] Max Rodriguez MD [address] [place] [id number] bilateral knee injections [facility] Comment on above: bilateral knee injections Start: 05-18-2025 End: 05-18-2025 Patient encounter procedure 05/18/2025 12:40 PM EDT Office Visit [facility] [address] [place] [id number] Nicole Zhang, ASHLY.[facility] [address] [place], [place] [phone] Wellness (last seen on 01/26/25 but was ill so did not get a wellness) [facility] Comment on above: Wellness (last seen on 01/26/25 but was ill so did not get a wellness) Start: 02-07-2025 End: 02-07-2025 Patient encounter procedure Radiology Comment on above: rt hip rt hip revision / xr 1st R hip & leg frontal Start: 01-30-2025 Covid-19 Vaccine () Covid-19 Vaccine () [facility] Start: 01-26-2025 End: 01-26-2025 Patient encounter procedure [facility] Comment on above: bilateral knee injections Medicare wellness SOB (shortness of br eath) [R06.02]; HATFIELD (dyspnea on exertion) [R06.09]; Decreased stamina [R53.83]; Coronary artery 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 [I25.10, 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] Start: 01-22-2025 End: 01-22-2025 Patient encounter procedure 01/22/2025 12:45 PM EDT Office Visit Pulmonary Medicine [address] [place], [place] [phone] Angela Haines MD [address] [facility] [address] SOB (shortness of breath) [R06.02]; HATFIELD (dyspnea on exertion) [R06.09]; Pulmonary emphysema, unspecified emphysema type (HCC) [J43.9] [facility] Comment on above: SOB (shortness of breath) [R06.02]; HATFIELD (dyspnea on exertion) [R06.09]; Pulmonary emphysema, unspecified emphysema type (HCC) [J43.9] Start: 01-22-2025 End: 01-22-2025 ambulatory 01/22/2025 11:30 AM EDT Procedure PULM LAB [facility] [address] [place], [place] [id number] W[facility], Pulm Lab [facility] [address] [place] [address] SOB (shortness of breath) [R06.02]; HATFIELD (dyspnea on exertion) [R06.09]; Pulmonary emphysema, unspecified emphysema type (HCC) [J43.9] PULM LAB [facility] Comment on above: SOB (shortness of breath) [R06.02]; HATFIELD (dyspnea on exertion) [R06.09]; Pulmonary emphysema, unspecified emphysema type (HCC) [J43.9] Start: 01-22-2025 End: 01-22-2025 ambulatory PULM LAB [facility] Comment on above: SOB (shortness of breath) [R06.02]; HATFIELD (dyspnea [...] vitamin B12 level Expected: 01/12/2025, Expires: 04/13/2025 [facility] Comment on above: Expected: 01/12/2025, Expires: Start: 01-12-2025 End: 04-13-2025 Cobalamin (Vitamin B12) [Mass/volume] in Serum or Plasma VITAMIN B12 Lab Routine GERD without esophagitis Low vitamin B12 level Medication management Expected: 01/12/2025, Expires: 04/13/2025 [facility] Work Phone: Comment on above: Expected: 01/12/2025, Expires: Start: 01-12-2025 End: 04-13-2025 Comprehensive metabolic 2000 panel - Serum or Plasma COMPREHENSIVE METABOLIC PANEL Lab Routine Essential hypertension Mixed hyperlipidemia Stage 3a chronic kidney disease (HCC) Expected: 01/12/2025, Expires: 04/13/2025 [facility] Comment on above: Expected: 01/12/2025, Expires: Start: 01-12-2025 End: 04-13-2025 Hemoglobin A1c in Blood HEMOGLOBIN A1C Lab Routine Elevated hemoglobin A1c Expected: 01/12/2025, Expires: 04/13/2025 [facility] Comment on above: Expected: 01/12/2025, Expires: Start: 01-12-2025 End: 04-13-2025 LIPID PANEL, NONFASTING LIPID PANEL, NONFASTING Lab Routine Essential hypertension Mixed hyperlipidemia Coronary artery 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 Bilateral carotid artery stenosis Expected: 01/12/2025, Expires: 04/13/2025 [facility] Comment on above: Expected: 01/12/2025, Expires: Start: 01-12-2025 End: 04-13-2025 Magnesium [Mass/volume] in Serum or Plasma MAGNESIUM Lab Routine GERD without esophagitis Medication management Expected: 01/12/2025, Expires: 04/13/2025 [facility] Comment on above: Expected: 01/12/2025, Expires: Start: 01-12-2025 End: 04-13-2025 Thyrotropin [Units/volume] in Serum or Plasma THYROID STIMULATING HORMONE Lab Routine Acquired hypothyroidism Expected: 01/12/2025, Expires: 04/13/2025 [facility] Comment on above: Expected: 01/12/2025, Expires: Start: 01-12-2025 End: 04-13-2025 Urinalysis complete panel - Urine URINALYSIS, WITH MICROSCOPIC Lab Routine Essential hypertension Mixed hyperlipidemia Expected: 01/12/2025, Expires: 04/13/2025 [facility] Comment on above: Expected: 01/12/2025, Expires: Start: 01-10-2025 End: 01-10-2025 Patient encounter procedure 01/10/2025 11:40 AM EST Office Visit [facility] [address] [place] [id number] Max Rodriguez MD [address] [place] [phone] excessive throat clearing [facility] Comment on above: excessive throat clearing Start: 12-21-2024 Hepatitis B surface antibody level LDL Cholesterol [facility] Start: 11-19-2024 DIABETES SCREEN DIABETES SCREEN [facility] Start: 11-08-2024 Advance Directive Discussion Advance Directive Discussion [facility] Start: 10-23-2024 End: 10-23-2024 ambulatory 10/23/2024 8:45 AM EST Treatment [facility] [address] [facility] [address] [place] [address] Louisa Christopher, PT [address] [facility] [place] [address] [facility] Start: 10-18-2024 End: 10-18-2024 ambulatory 10/18/2024 8:30 AM EST Treatment [facility] [address] [facility] [address] [place] [address] Maylin Atnhony, DELI MANAGER [address] [place] [address] [facility] Start: 10-11-2024 End: 10-11-2024 ambulatory 10/11/2024 8:30 AM EST Treatment [facility] [address] [facility] [address] [place] [address] Maylin Anthony, DELI MANAGER [address] [place] [address] [facility] Start: 10-09-2024 End: 10-09-2024 ambulatory 10/09/2024 8:30 AM EST Treatment [facility] [address] [place] [address] Maylin Anthony, DELI MANAGER [address] [place] [address] [facility] Start: 10-04-2024 End: 10-04-2024 ambulatory 10/04/2024 8:30 AM EST Treatment [facility] [address] [facility] [address] [place] [address] Isha Bishop, DELI MANAGER [address] [facility] [place] [address] [facility] Start: 10-02-2024 End: 10-02-2024 ambulatory 10/02/2024 9:15 AM EST Treatment [facility] [address] [facility] [address] [place] [address] Isha Bishop, DELI MANAGER [address] [facility] [place] [address] [facility] Start: 09-27-2024 End: 09-27-2024 ambulatory 09/27/2024 8:30 AM EST Treatment [facility] [address] [facility] [address] [place] [address] Maylin Anthony, DELI MANAGER [address] [facility] [place] [phone] [facility] Start: 09-25-2024 End: 09-25-2024 ambulatory 09/25/2024 8:30 AM EST Treatment [facility] [address] [facility] [address] [place] [address] Maylin Anthony, DELI MANAGER [address] [place] [address] [facility] Start: 09-22-2024 End: 12-22-2024 Thyrotropin [Units/volume] in Serum or Plasma THYROID STIMULATING HORMONE Lab Routine Acquired hypothyroidism Expected: 09/22/2024, Expires: 12/22/2024 [facility] Work Phone: Comment on above: Expected: 09/22/2024, Expires: Start: 09-20-2024 End: 09-20-2024 ambulatory 09/20/2024 10:45 AM EST Treatment [facility] [address] [place] [address] Maylin Anthony, DELI MANAGER [address] [facility] [place] [address] [facility] Start: 09-19-2024 End: 09-19-2024 Patient encounter procedure 09/19/2024 9:40 AM EST Office Visit [facility] [address] [place], [place] [phone] Max Rodriguez MD [address] [place], [place] [address] Bilateral knee injections [facility] Comment on above: Bilateral knee injections Start: 08-09-2024 Smoking cessation education Tobacco cessation counseling [facility] Start: 08-02-2024 End: 08-02-2024 Patient encounter procedure 08/02/2024 8:40 AM EDT Office Visit [facility] [place] [address] [place], [place] [phone] Max Rodriguez MD [address] [place] [address] 6 month follow up [facility] Comment on above: 6 month follow up Start: 07-14-2024 End: 10-13-2024 Basic metabolic 2000 panel - Serum or Plasma BASIC METABOLIC PNL Lab Routine Essential hypertension Mixed hyperlipidemia Stage 3a chronic kidney disease (HCC) Expected: 07/14/2024, Expires: 10/13/2024 [facility] Work Phone: Comment on above: Expected: 07/14/2024, Expires: Start: 07-14-2024 End: 10-13-2024 Hemoglobin A1c in Blood HGB A1C Lab Routine Elevated hemoglobin A1c Expected: 07/14/2024, Expires: 10/13/2024 [facility] Work Phone: Comment on above: Expected: 07/14/2024, Expires: Start: 07-14-2024 End: 10-13-2024 Thyrotropin [Units/volume] in Serum or Plasma TSH BLD Lab Routine Acquired hypothyroidism Expected: 07/14/2024, Expires: 10/13/2024 [facility] Work Phone: Comment on above: Expected: 07/14/2024, Expires: Start: 07-09-2024 Covid-19 Vaccine () Covid-19 Vaccine () [facility] Start: 07-09-2024 Influenza vaccination Influenza Vaccine (#1) [facility] Start: 06-13-2024 End: 09-12-2024 Cobalamin (Vitamin B12) [Mass/volume] in Serum or Plasma VITAMIN B12 Lab Routine Low vitamin B12 level Expected: 06/13/2024, Expires: 09/12/2024 [facility] Work Phone: Comment on above: Expected: 06/13/2024, Expires: Start: 05-17-2024 Smoking cessation education Tobacco cessation counseling [facility] Start: 05-16-2024 End: 05-16-2024 Patient encounter procedure 05/16/2024 10:00 AM EDT Office Visit [facility] [address] [place] [address] Max Rodriguez MD [address] [place] [address] bilateral knee injections [facility] [place] Comment on above: bilateral knee injections Start: 04-28-2024 End: 04-28-2024 Patient encounter procedure 04/28/2024 9:40 AM EDT Office Visit [facility] [address] [place] [address] Max Rodriguez MD [address] [facility] [place] [address] 3 month follow up [facility] Comment on above: 3 month follow up Start: 04-14-2024 End: 04-14-2024 Patient encounter procedure 04/14/2024 10:20 AM EDT Office Visit [facility] [place] [address] [place] [address] Nicole Zhang APRN.[employer]CHANGE SPECIALIST [address] [facility] [place], [place] [phone] 4 week follow up bp [facility] Comment on above: 4 week follow up bp Start: 01-26-2024 End: 04-26-2024 Hepatic function 2000 panel - Serum or Plasma [facility] Work Phone: Comment on above: Expected: 01/26/2024, Expires: 4 Start: 01-26-2024 End: 04-26-2024 PAIN PANEL, UR QUANT [facility] Work Phone: Comment on above: Ordered: 01/26/2024 Expected: 01/26/2024 , Expires: 04/26/2024 Start: 01-26-2024 End: 04-26-2024 TOX SCREEN ROUT UR [facility] Work Phone: Comment on above: Ordered: 01/26/2024 Expected: 01/26/2024 , Expires: 04/26/2024 Start: 01-21-2024 Urine microalbumin profile DTAP,TDAP,TD (1 - Tdap) [facility] Comment on above: Postponed from 1960 (Insurance Cov erage) Start: 01-13-2024 Hepatitis B surface antibody level LDL CHOLESTEROL [facility] Start: 01-07-2024 End: 03-08-2024 CBC W Auto Differential panel - Blood CBC + DIFF Lab Routine Elevated hemoglobin (HCC) Stage 3a chronic kidney disease (HCC) Acquired hypothyroidism Low vitamin B12 level Expected: 01/07/2024, Expires: 03/08/2024 [facility] Work Phone: Comment on above: Expected: 01/07/2024, Expires: Start: 01-07-2024 End: 03-08-2024 Cobalamin (Vitamin B12) [Mass/volume] in Serum or Plasma VITAMIN B12 BLOOD Lab Routine GERD without esophagitis Low vitamin B12 level Medication management Expected: 01/07/2024, Expires: 03/08/2024 [facility] Work Phone: Comment on above: Expected: 01/07/2024, Expires: Start: 01-07-2024 End: 03-08-2024 Comprehensive metabolic 2000 panel - Serum or Plasma COMP METABOLIC PANEL Lab Routine Essential hypertension Mixed hyperlipidemia Stage 3a chronic kidney disease (HCC) Expected: 01/07/2024, Expires: 03/08/2024 [facility] Work Phone: Comment on above: Expected: 01/07/2024, Expires: Start: 01-07-2024 End: 03-08-2024 Hemoglobin A1c in Blood HGB A1C Lab Routine Elevated hemoglobin A1c Expected: 01/07/2024, Expires: 03/08/2024 [facility] Work Phone: Comment on above: Expected: 01/07/2024, Expires: Start: 01-07-2024 End: 03-08-2024 LIPID PANEL, NONFASTING LIPID PANEL, NONFASTING Lab Routine Essential hypertension Mixed hyperlipidemia Coronary artery 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 Expected: 01/07/2024, Expires: 03/08/2024 [facility] Work Phone: Comment on above: Expected: 01/07/2024, Expires: 4 Start: 01-07-2024 End: 03-08-2024 Magnesium [Mass/volume] in Serum or Plasma MAGNESIUM BLD Lab Routine GERD without esophagitis Medication management Expected: 01/07/2024, Expires: 03/08/2024 [facility] Work Phone: Comment on above: Expected: 01/07/2024, Expires: 4 Start: 01-07-2024 End: 03-08-2024 Thyrotropin [Units/volume] in Serum or Plasma TSH BLD Lab Routine Acquired hypothyroidism Expected: 01/07/2024, Expires: 03/08/2024 [facility] Work Phone: Comment on above: Expected: 01/07/2024, Expires: Start: 01-07-2024 End: 03-08-2024 Urinalysis complete panel - Urine URINALYSIS, WITH MICROSCOPIC Lab Routine Essential hypertension Mixed hyperlipidemia Expected: 01/07/2024, Expires: 03/08/2024 [facility] Work Phone: Comment on above: Expected: 01/07/2024, Expires: Start: 12-31-2023 Covid-19 Vaccine () Covid-19 Vaccine () [facility] Start: 12-24-2023 End: 03-24-2024 Basic metabolic 2000 panel - Serum or Plasma BASIC METABOLIC PNL Lab Routine Hyperkalemia Expected: 12/24/2023, Expires: 03/24/2024 [facility] Work Phone: Comment on above: Expected: 12/24/2023, Expires: Start: 12-23-2023 End: 03-23-2024 Basic metabolic 2000 panel - Serum or Plasma BASIC METABOLIC PNL Lab Routine Hyperkalemia Expected: 12/23/2023, Expires: 03/23/2024 [facility] Work Phone: Comment on above: Expected: 12/23/2023, Expires: Start: 12-17-2023 End: 03-17-2024 Thyrotropin [Units/volume] in Serum or Plasma TSH BLD Lab Routine Acquired hypothyroidism Expected: 12/17/2023, Expires: 03/17/2024 [facility] Work Phone: Comment on above: Expected: 12/17/2023, Expires: Start: 12-13-2023 End: 12-13-2023 [facility] Start: 12-13-2023 [facility] Start: 11-08-2023 Advance Directive Discussion Advance Directive Discussion [facility] Start: 10-29-2023 End: 01-28-2024 Thyrotropin [Units/volume] in Serum or Plasma TSH BLD Lab Routine Acquired hypothyroidism Expected: 10/29/2023, Expires: 01/28/2024 [facility] Work Phone: Comment on above: Expected: 10/29/2023, Expires: 4 Start: 09-06-2023 End: 11-06-2023 Thyrotropin [Units/volume] in Serum or Plasma TSH BLD Lab Routine Acquired hypothyroidism Expected: 09/06/2023, Expires: 11/06/2023 [facility] Work Phone: Comment on above: Expected: 09/06/2023, Expires: 3 Start: 07-09-2023 End: 09-08-2023 Basic metabolic 2000 panel - Serum or Plasma BASIC METABOLIC PNL Lab Routine Essential hypertension Mixed hyperlipidemia Stage 3a chronic kidney disease (HCC) Expected: 07/09/2023, Expires: 09/08/2023 [facility] Work Phone: Comment on above: Expected: 07/09/2023, Expires: 3 Start: 07-09-2023 End: 09-08-2023 Cobalamin (Vitamin B12) [Mass/volume] in Serum or Plasma VITAMIN B12 BLOOD Lab Routine Low vitamin B12 level Expected: 07/09/2023, Expires: 09/08/2023 [facility] Work Phone: Comment on above: Expected: 07/09/2023, Expires: 3 Start: 07-09-2023 End: 09-08-2023 Hemoglobin A1c in Blood HGB A1C Lab Routine Elevated hemoglobin (HCC) Expected: 07/09/2023, Expires: 09/08/2023 [facility] Work Phone: Comment on above: Expected: 07/09/2023, Expires: 3 Start: 07-09-2023 Influenza vaccination [facility] Start: 07-09-2023 End: 09-08-2023 Thyrotropin [Units/volume] in Serum or Plasma TSH BLD Lab Routine Acquired hypothyroidism Expected: 07/09/2023, Expires: 09/08/2023 [facility] Work Phone: Comment on above: Expected: 07/09/2023, Expires: 3 Start: 05-12-2023 End: 05-12-2023 [facility] Start: 05-06-2023 [facility] Start: 03-20-2023 ANNUAL PCP TEAM CHRONIC DISEASE VISIT ANNUAL PCP TEAM CHRONIC DISEASE VISIT [facility] Start: 02-12-2023 Smoking cessation education Tobacco cessation counseling [facility] Start: 02-05-2023 SHINGRIX VACCINE (2 of 2) SHINGRIX VACCINE (2 of 2) [facility] Start: 01-01-2023 COVID-19 VACCINE (6 - Moderna series) COVID-19 VACCINE (6 - Moderna series) [facility] Start: 12-25-2022 End: 02-24-2023 CBC W Auto Differential panel - Blood CBC + DIFF Lab Routine Elevated hemoglobin (HCC) Anxiety Recurrent major depressive disorder, in partial remission (HCC) Low vitamin B12 level Expected: 12/25/2022, Expires: 02/24/2023 [facility] Work Phone: Comment on above: Expected: 12/25/2022, Expires: 3 Start: 12-25-2022 End: 02-24-2023 Cobalamin (Vitamin B12) [Mass/volume] in Serum or Plasma VITAMIN B12 BLOOD Lab Routine Low vitamin B12 level Medication management GERD without esophagitis Expected: 12/25/2022, Expires: 02/24/2023 [facility] Work Phone: Comment on above: Expected: 12/25/2022, Expires: 3 Start: 12-25-2022 End: 02-24-2023 Comprehensive metabolic 2000 panel - Serum or Plasma COMP METABOLIC PANEL Lab Routine Essential hypertension Mixed hyperlipidemia Elevated hemoglobin A1c Low serum calcium Expected: 12/25/2022, Expires: 02/24/2023 [facility] Work Phone: Comment on above: Expected: 12/25/2022, Expires: 3 Start: 12-25-2022 End: 04-19-2023 Hemoglobin A1c in Blood HGB A1C Lab Routine Elevated hemoglobin A1c Expected: 12/25/2022, Expires: 02/24/2023 [facility] Work Phone: Comment on above: Expected: 12/25/2022, Expires: 3 Start: 12-25-2022 End: 02-24-2023 Lipid 1996 panel - Serum or Plasma LIPID PANEL BASIC Lab Routine Essential hypertension Mixed hyperlipidemia Coronary artery 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 Expected: 12/25/2022, Expires: 02/24/2023 [facility] Work Phone: Comment on above: Expected: 12/25/2022, Expires: 3 Start: 12-25-2022 End: 02-24-2023 Magnesium [Mass/volume] in Serum or Plasma MAGNESIUM BLD Lab Routine Medication management GERD without esophagitis Expected: 12/25/2022, Expires: 02/24/2023 [facility] Work Phone: Comment on above: Expected: 12/25/2022, Expires: 3 Start: 12-25-2022 End: 02-24-2023 Thyrotropin [Units/volume] in Serum or Plasma TSH BLD Lab Routine Acquired hypothyroidism Expected: 12/25/2022, Expires: 02/24/2023 [facility] Work Phone: Comment on above: Expected: 12/25/2022, Expires: 3 Start: 12-25-2022 End: 02-24-2023 Urinalysis complete panel - Urine URINALYSIS, WITH MICROSCOPIC Lab Routine Essential hypertension Mixed hyperlipidemia Expected: 12/25/2022, Expires: 02/24/2023 [facility] Work Phone: Comment on above: Expected: 12/25/2022, Expires: 3 Start: 12-11-2022 Smoking cessation education Tobacco cessation counseling [facility] Start: 12-03-2022 BP CONTROLLED (<130/80) BP CONTROLLED (<130/80) [facility] Start: 12-03-2022 SHINGRIX VACCINE (1 of 2) SHINGRIX VACCINE (1 of 2) [facility] Comment on above: Postponed from 1991 (Insurance Cov erage) Start: 12-03-2022 Urine microalbumin profile DTAP,TDAP,TD (1 - Tdap) [facility] Comment on above: Postponed from 1960 (Insurance Cov erage) Start: 11-19-2022 Hepatitis B surface antibody level LDL CHOLESTEROL [facility] Start: 11-08-2022 ADVANCE DIRECTIVE DISCUSSION ADVANCE DIRECTIVE DISCUSSION [facility] Start: 10-16-2022 Smoking cessation education Tobacco cessation counseling [facility] Start: 07-09-2022 Influenza vaccination INFLUENZA (#1) [facility] Start: 07-08-2022 End: 09-07-2022 Calcium [Mass/volume] in Serum or Plasma CALCIUM TOTAL BLD Lab Routine Low serum calcium Expected: 07/08/2022, Expires: 09/07/2022 [facility] Work Phone: Comment on above: Expected: 07/08/2022, Expires: 2 Start: 07-08-2022 End: 09-07-2022 Hepatic function 2000 panel - Serum or Plasma HEPATIC FUNCTION PNL Lab Routine Low serum calcium Expected: 07/08/2022, Expires: 09/07/2022 [facility] Work Phone: Comment on above: Expected: 07/08/2022, Expires: 2 Start: 05-22-2022 End: 07-22-2022 Thyrotropin [Units/volume] in Serum or Plasma TSH BLD Lab Routine Acquired hypothyroidism Expected: 05/22/2022, Expires: 07/22/2022 [facility] Work Phone: Comment on above: Expected: 05/22/2022, Expires: 2 Start: 02-12-2022 COVID-19 VACCINE (4 - Booster for Moderna series) COVID-19 VACCINE (4 - Booster for Moderna series) [facility] Start: 12-09-2021 COVID-19 VACCINE (4 - Booster for Moderna series) COVID-19 VACCINE (4 - Booster for Moderna series) [facility] Start: 11-08-2021 ADVANCE DIRECTIVE DISCUSSION ADVANCE DIRECTIVE DISCUSSION [facility] Start: 2001 RSV Vaccine (1 - 1-dose 60+ series) RSV Vaccine (1 - 1-dose 60+ series) [facility] Start: 1991 SHINGRIX VACCINE (1 of 2) SHINGRIX VACCINE (1 of 2) [facility] Start: 1960 Urine microalbumin profile DTAP,TDAP,TD (1 - Tdap) [facility] Start: 1940 Annual wellness visit Medicare Initial Physical (IPPE) [facility] Start: 1940 Creatinine measurement Creatinine Level [facility] Start: 1941 Echocardiography Echocardiogram [facility] Start: 1941 Lipid panel Lipid Panel [facility] Start: 1941 Potassium measurement Potassium Level [facility] Start: 1941 Screening for osteoporosis Bone Density Scan [facility] Ambulatory ECG [facility] Bacteria identified in Urine by Culture [facility] Basic metabolic 2008 panel with ionized calcium - Serum or Plasma [facility] Catheterization of l eft heart [facility] CBC W Auto Different ial panel - Blood [facility] End: 06-17-2026 CT Heart and Coronary arteries for calcium scoring WO contrast CT CALCIUM SCORING (CARDIAC) WO IVCON Radiology STAT Encounter for screening for cardiovascular disorders 1 Occurrences starting 05/18/2025 until 06/17/2026 [facility] Work Phone: Comment on above: 1 Occurrences starting 05/18/2025 until 06/17/2026 End: 05-23-2025 CT Heart and Coronary arteries for calcium scoring WO contrast CT CALCIUM SCORING (CARDIAC) WO IVCON Radiology STAT Encounter for screening for cardiovascular disorders 1 Occurrences starting 05/23/2025 until 05/23/2025 [facility] Work Phone: Comment on above: 1 Occurrences starting 05/23/2025 until 05/23/2025 End: 05-21-2026 ECG COMPLETE ECG COMPLETE ECG Routine Coronary artery 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 SOB (shortness of breath) Chest pain, unspecified type 1 Occurrences starting 05/21/2025 until 05/21/2026 [facility] Work Phone: Comment on above: 1 Occurrences starting 05/21/2025 until 05/21/2026 End: 01-10-2026 Echocardiography ECHO Cardiology Routine SOB (shortness of breath) HATFIELD (dyspnea on exertion) Decreased stamina Coronary artery 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 1 Occurrences starting 01/10/2025 until 01/10/2026 [facility] Work Phone: Comment on above: 1 Occurrences starting 01/10/2025 until 01/10/2026 Exercise tolerance test [facility] Measurement of respiratory function [facility] End: 01-19-2025 NM Heart Perfusion W stress and W radionuclide IV NM CARDIAC PERF STRESS/PHARM Radiology STAT Coronary artery 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 Decreased stamina HATFIELD (dyspnea on exertion) Dizziness 1 Occurrences starting 12/21/2023 until 01/19/2025 [facility] Work Phone: Comment on above: 1 Occurrences starting 12/21/2023 until 01/19/2025 PAIN PANEL, UR QUANT PAIN PANEL, UR QUANT Lab Routine Arthritis of both knees Osteoarthritis, unspecified osteoarthritis type, unspecified site Medication management 03/20/2022 2:43 PM T [facility] Work Phone: PAIN PANEL, UR QUANT PAIN PANEL, UR QUANT Lab Routine Arthritis of both knees Osteoarthritis, unspecified osteoarthritis type, unspecified site Medication management 03/20/2022 2:43 PM [facility] Work Phone: PAIN PANEL, UR QUANT PAIN PANEL, UR QUANT Lab Routine Osteoarthritis, unspecified osteoarthritis type, unspecified site Medication management 01/20/2023 11:06 AM T [facility] Work Phone: PAIN PANEL, UR QUANT PAIN PANEL, UR QUANT Lab Routine Osteoarthritis, unspecified osteoarthritis type, unspecified site Medication management 01/20/2023 11:08 AM [facility] Work Phone: PAIN PANEL, UR QUANT PAIN PANEL, UR QUANT Lab Routine Arthritis of both knees Medication management Ordered: 01/26/2024 [facility] Work Phone: Comment on above: Ordered: 01/26/2024 PAIN PANEL, UR QUANT PAIN PANEL, UR QUANT Lab Routine Arthritis of both knees Medication management 01/26/2024 2:11 PM EDT [facility] Work Phone: Partial thromboplast in time, activated [facility] Patient Education [facility] Work Phone: Patient referral [facility] Work Phone: Prothrombin time [facility] End: 04-22-2024 PVR ANK PRESS [facility] PVR ANK PRESS [facility] Vascular Lab Routine Discolored skin 1 Occurrences starting 04/22/2023 until 04/22/2024 [facility] Work Phone: Comment on above: 1 Occurrences starting 04/22/2023 until 04/22/2024 SPECIMEN VALIDITY, URINE SPECIME N VALIDITY, URINE Lab Routine Arthritis of both knees Osteoarthritis, unspecified osteoarthritis type, unspecified site Medication management 03/20/2022 2:43 PM EDT [facility] Work Phone: SPECIMEN VALIDITY, URINE SPECIME N VALIDITY, URINE Lab Routine Osteoarthritis, unspecified osteoarthritis type, unspecified site Medication management 01/20/2023 11:06 AM EDT [facility] Work Phone: SPECIMEN VALIDITY, URINE SPECIME N VALIDITY, URINE Lab Routine Arthritis of both knees Medication management Ordered: 01/26/2024 [facility] Work Phone: Comment on above: Ordered: 01/26/2024 TOX SCREEN ROUT UR TOX SCREEN RO UT UR Lab Routine Arthritis of both knees Medication management 01/26/2024 2:11 PM EDT [facility] Work Phone: Troponin T.cardiac [Mass/volume] in Serum or Plasma by High sensitivity method [facility] Troponin T.cardiac [Mass/volume] in Serum or Plasma by High sensitivity method [facility] Urine culture [facility] End: 08-07-2023 Us abdominal real time w/image documentation US ABDOMEN COMPLETE Radiology Routine RLQ abdominal pain 1 Occurrences starting 07/08/2022 until 08/07/2023 [facility] Work Phone: Comment on above: 1 Occurrences starting 07/08/2022 until 08/07/2023 End: 12-21-2024 US Carotid arteries - bilateral US CAROTID ARTERIES [facility] Vascular Lab Routine Dizziness 1 Occurrences starting 12/21/2023 until 12/21/2024 [facility] Work Phone: Comment on above: 1 Occurrences starting 12/21/2023 until 12/21/2024 End: 08-07-2023 Us transvaginal US FEMALE PELVIS TRANSVAG Radiology Routine RLQ abdominal pain 1 Occurrences starting 07/08/2022 until 08/07/2023 [facility] Work Phone: Comment on above: 1 Occurrences starting 07/08/2022 until 08/07/2023 End: 05-21-2026 US.doppler Extremity arteries - bilateral for physiologic artery study at rest and with exercise PVR LEG W/EXC [facility] Vascular Lab Routine Cyanosis Decreased pulses in feet 1 Occurrences starting 05/21/2025 until 05/21/2026 [facility] Work Phone: Comment on above: 1 Occurrences starting 05/21/2025 until 05/21/2026 End: 06-17-2024 XR KNEE GENERAL 4V AP BOTH/PA BOTH/LAT/MERC BILATERAL XR KNEE GENERAL 4V AP BOTH/PA BOTH/LAT/MERC BILATERAL Radiology Routine Pain in both knees, unspecified chronicity 1 Occurrences starting 05/19/2023 until 06/17/2024 [facility] Work Phone: Comment on above: 1 Occurrences starting 05/19/2023 until 06/17/2024 End: 02-25-2026 XR Lower extremity - bilateral AP W standing XR LEG FRONTAL HIP TO ANKLE MECHANICAL AXIS Radiology Routine Pain 1 Occurrences starting 01/26/2025 until 02/25/2026 [facility] Comment on above: 1 Occurrences starting 01/26/2025 until 02/25/2026 XR Lower extremity - bilateral AP W standing XR LEG FRONTAL HIP TO ANKLE MECHANICAL AXIS Radiology Routine Pain 02/07/2025 10:26 AM EDT [facility] End: 02-25-2026 XR Pelvis and Hip - right AP and Lateral frog XR HIP GENERAL 3V PELV/AP/LAT RIGHT Radiology Routine Pain 1 Occurrences starting 01/26/2025 until 02/25/2026 [facility] Work Phone: Comment on above: 1 Occurrences starting 01/26/2025 until 02/25/2026 XR Pelvis and Hip - right AP and Lateral frog XR HIP GENERAL 3V PELV/AP/LAT RIGHT Radiology Routine Pain 02/07/2025 10:26 AM EDT [facility] Work Phone: [facility] Immunizations Immunization Date Immunization Notes Care Provider Fa [facility] 08-02-2024 COVID-19 vaccine, ag e 12+ yr (PFIZER-BIONTECH COMIRNATY) Max Rodriguez MD Work Phone: [facility] 08-02-2024 pneumococcal conjuga te (PCV20) vaccine, 20 valent (PREVNAR 20) Max Rodriguez MD Work Phone: [facility] 08-02-2024 Seasonal trivalent influenza vaccine, adjuvanted, preservative free Max Rodriguez MD Work Phone: [facility] 08-02-2024 influenza virus vacc ine, unspecified formulation Nicole Zhang APRN.CURRENCY EXCHANGE SPECIALIST Work Phone: [facility] 04-28-2024 COVID-19 vaccine, ag e 12+ yr, season (PFIZER-BIONTECH) Max Rodriguez MD Work Phone: [facility] 09-02-2023 respiratory syncytia l virus (RSV) vaccine, bivalent (ABRYSVO) Max Rodriguez MD Work Phone: [facility] 08-30-2023 COVID-19 vaccine, ag e 12+ yr, season (PFIZER-BIONTECH) Nicole Zhang APRN.CURRENCY EXCHANGE SPECIALIST Work Phone: [facility] 08-30-2023 respiratory syncytia l virus (RSV) vaccine, unspecified formulation Max Rodriguez MD Work Phone: [facility] Work Phone: 08-24-2023 influenza (aIIV4) vaccine, age 65+ yr, quadrivalent, PF (FLUAD QUAD) Max Rodriguez MD Work Phone: [facility] 08-24-2023 influenza, injectabl e, quadrivalent, preservative free Dr. Max Rodriguez MD Work Phone: [facility] 08-24-2023 influenza virus vacc ine, unspecified formulation Max Rodriguez MD Work Phone: [facility] 04-22-2023 tetanus toxoid, redu shaun diphtheria toxoid, and acellular pertussis vaccine, adsorbed Nicole Zhang CAKE TESTER.CURRENCY EXCHANGE SPECIALIST Work Phone: [facility] 02-08-2023 zoster vaccine recombinant Nicole Zhang APRN.CURRENCY EXCHANGE SPECIALIST Work Phone: [facility] 12-11-2022 zoster vaccine recombinant Max Rodriguez MD Work Phone: [facility] 12-09-2022 zoster vaccine recombinant Max Rodriguez MD Work Phone: [facility] 09-08-2022 influenza, high dose seasonal, preservative-free Max Rodriguez MD Work Phone: [facility] Work Phone: 09-08-2022 influenza virus vacc ine, unspecified formulation Max Rodriguez MD Work Phone: [facility] 08-31-2022 Covid Moderna Bivale nt Booster Dr. Max Rodriguez MD Work Phone: [facility] 08-17-2022 influenza (aIIV4) vaccine, age 65+ yr, quadrivalent, PF (FLUAD QUAD) Nicole Zhang APRN.CURRENCY EXCHANGE SPECIALIST Work Phone: [facility] 08-17-2022 influenza, injectabl e, quadrivalent, preservative free Dr. Max Rodriguez MD Work Phone: [facility] 10-14-2021 Covid (Moderna) Dr. Max Rodriguez MD Work Phone: [facility] 08-02-2021 influenza, high-dose , quadrivalent vaccine (FLUZONE HIGH DOSE QUADRIVALENT) Max Rodriguez MD Work Phone: [facility] 01-31-2021 COVID-19 vaccine, fu ll dose (MODERNA) Max Rodriguez MD Work Phone: [facility] 01-03-2021 COVID-19 vaccine, fu ll dose (MODERNA) Max Rodriguez MD Work Phone: [facility] 08-03-2020 Seasonal, quadrivale nt, recombinant, injectable influenza vaccine, preservative free Nicole Sandhya CAKE TESTER.CURRENCY EXCHANGE SPECIALIST Work Phone: [facility] 11-19-[address] Max Rodriguez Work Phone: [facility] 11-19-2019 influenza, seasonal, injectable, preservative free Nicole Sandhya CAKE TESTER.CURRENCY EXCHANGE SPECIALIST Work Phone: [facility] 08-16-2019 influenza, high dose seasonal, preservative-free Max Rodriguez MD Work Phone: [facility] 08-06-2018 influenza, high dose seasonal, preservative-free Max Rodriguez MD Work Phone: [facility] 08-18-2017 influenza, high dose seasonal, preservative-free Max Rodriguez MD Work Phone: [facility] 06-21-2017 pneumococcal polysaccharide vaccine, 23 valent Max Rodriguez MD Work Phone: [facility] 10-14-2016 influenza, injectabl e, quadrivalent, contains preservative Max Rodriguez MD Work Phone: [facility] Work Phone: 08-02-2015 influenza, injectabl e, quadrivalent, contains preservative Max Rodriguez MD Work Phone: [facility] Work Phone: 08-02-2015 influenza, injectabl e, quadrivalent, preservative free Dr. Max Rodriguez MD Work Phone: [facility] 04-02-2015 pneumococcal conjuga te vaccine, 13 cande Rodriguez MD Work Phone: [facility] 08-08-2011 influenza virus vacc ine, unspecified formulation Max Rodriguez MD Work Phone: [facility] Work Phone: 08-17-2009 pneumococcal polysaccharide vaccine, 23 valneri Rodriguez MD Work Phone: [facility] Work Phone: 09-16-2007 influenza virus vacc ine, whole virus Nicole Zhang CAKE TESTER.[facility] Work Phone: [facility] 09-16-2007 influenza, injectabl e, quadrivalent, preservative free Dr. Max Rodriguez MD Work Phone: [facility] Payers Date Payer Category Payer Self-pay [id number] 2023 Medicare (Managed Care) [id number]. [id number] 2023 Private Health Insurance [id number] 2021 Medicare HUMANA MEDICARE HUMANA MEDICARE PPO [id number] 2021-Present [phone] [address] [address] [place] [address] PPO [id number] 2021 Medicare [id number] 2012 Medicare [id number] 1941 Unknown [id number] 2.16.840.1.609527.3.579.2.2 78 1941 Unknown [id number] 2.16.840.1.982456.3.579.2.1 243 1941 Unknown [id number] 2.16.840.1.989771.3.579.2.1 243 1941 Unknown [id number] 2.16.840.1.388424.3.579.2.1 243 1941 Unknown [id number] 2.16.840.1.927430.3.579.2.1 243 1941 Unknown [id number] 2.16.840.1.047432.3.579.2.1 243 1941 Unknown [id number] 2.16.840.1.357764.3.579.2.1 243 1941 Unknown [id number] 2.16.840.1.908589.3.579.2.1 243 1941 Unknown [id number] 2.16.840.1.176292.3.579.2.1 243 1941 Unknown [id number] 2.16.840.1.065217.3.579.2.1 243 1941 Unknown [id number] 2.16.840.1.260015.3.579.2.1 243 1941 Unknown [id number] 2.16.840.1.014097.3.579.2.1 243 1941 Unknown [id number] 2.16.840.1.476261.3.579.2.1 243 1941 Unknown [id number] 2.16.840.1.827059.3.579.2.1 243 1941 Unknown [id number] 2.16.840.1.983301.3.579.2.1 243 1941 Unknown [id number] 2.16.840.1.746675.3.579.2.1 243 1941 Unknown [id number] 2.16.840.1.615436.3.579.2.1 243 1941 Unknown [id number] 2.16.840.1.053955.3.579.2.1 243 1941 Unknown [id number] 2.16.840.1.425250.3.579.2.1 347 1941 Unknown [id number] 2.16.840.1.074015.3.579.2.1 347 1941 Unknown [id number] 2.16.840.1.639807.3.579.2.1 347 Private Health Insurance [id number] Unknown [id number] 2.16.840.1.469873.3.579.2.4 62 Unknown [id number] 2.16.840.1.993411.3.579.2.4 62 Unknown [id number] 2.16.840.1.469951.3.579.2.4 62 Unknown [id number] 2.16.840.1.007218.3.579.2.4 62 Unknown [id number] 2.16.840.1.027618.3.579.2.4 62 Unknown [id number] 2.16.840.1.256132.3.579.2.4 62 Unknown [id number] 2.16.840.1.011578.3.579.2.4 62 Unknown [id number] 2.16.840.1.408589.3.579.2.4 62 Unknown [id number] 2.16.840.1.781610.3.579.2.4 62 Unknown [id number] 2.16.840.1.224963.3.579.2.4 62 Unknown [id number] 2.16.840.1.695245.3.579.2.4 62 Unknown [id number] 2.16.840.1.691436.3.579.2.4 62 Unknown [id number] 2.16.840.1.595124.3.579.2.4 62 Unknown [id number] 2.16.840.1.545405.3.579.2.4 62 Unknown [id number] 2.16.840.1.949362.3.579.2.4 62 Unknown [id number] 2.16.840.1.638171.3.579.2.4 62 Unknown [id number] 2.16.840.1.751758.3.579.2.4 62 Social History Date Type Detail Facility Start: 01-26-2022 End: 07-08-2022 Tobacco smoking status NHIS Smokes tobacco daily [facility] Start: 11-08-1970 End: 04-08-2022 History of tobacco use Cigarette Smoker [facility] Start: 01-26-2022 End: 04-22-2023 Cigarettes smoked current (pack per day) - Reported 1 [facility] Start: 01-26-2022 End: 06-12-2025 Tobacco use and exposure Smokeless tobacco non-user [facility] Start: 03-21-2022 End: 06-12-2025 Alcohol intake Current drinker of alcohol (finding) [facility] Start: 02-16-2017 History SDOH Alcohol Comment occasional glass of wine, once a month [facility] Start: 01-26-2022 End: 07-08-2022 Tobacco Comment 3 cigarettes per day [facility] Start: 1940 Sex Assigned At Female [facility] Start: 01-29-2022 End: 03-23-2025 Tobacco smoking status CAIS Unknown if ever smoked [facility] Start: 12-05-2021 Occasional [facility] Start: 12-05-2021 None [facility] Start: 12-05-2021 Alone [facility] Start: 12-05-2021 Cigarettes [facility] Start: 04-20-2022 End: 09-18-2024 Exposure to SARS-CoV-2 (event) Not sure [facility] Work Phone: Start: 07-01-2022 History SDOH Alcohol Std Drinks 98 [facility] Start: 07-01-2022 End: 10-09-2022 History SDOH Housing Unable to Pay 3 [facility] Start: 11-12-2022 End: 06-12-2025 Tobacco smoking status NHIS Ex-smoker [facility] Start: 11-08-1970 End: 04-08-2022 History of tobacco use Current smoker [facility] Start: 10-09-2022 End: 04-22-2023 Social connection and isolation panel [facility] Start: 10-09-2012 In a typical week, how many times do you talk on the telephone with family, friends, or neighbors? Patient refused [facility] Are you now , , , , never or living with a partner? Refused [facility] (I/We) worried wheth er (my/our) food would run out before (I/we) got money to buy more. DK or Refused [facility] Start: 01-23-2022 Gender identity Identifies as female gender (finding) [facility] Start: 01-23-2022 Sexual orientation Heterosexual (finding) [facility] Has the [employer], or [employer] threatened to shut off services in your home in past 12Mo No [facility] Are you now , , , , never or living with a partner? [facility] How often to you hav e a drink containing alcohol? Never [facility] Do you feel stress - tense, restless, nervous, or anxious, or unable to sleep at night because your mind is troubled all the time - these days [OSQ] Not at all [facility] (I/We) worried wheth er (my/our) food would run out before (I/we) got money to buy more. Never true [facility] Start: 1940 Sex assigned at Not on file [facility] Work Phone: Start: 01-22-2025 Tobacco Comment Started at age 31 [facility] Start: 01-26-2025 End: 02-08-2025 Sex Female (finding) [facility] Start: 03-23-2025 Alcohol intake Alcohol Use Details [facility] Physicians Medical Equipment Procedure Code Equipment Code Equipment Origin al Text Equipment Identifier Dates [id number] Implant - [id number] Start: 12-30-2018 Comment on above: Description: Trident II Tritanium Solidback Acetabular Shell size 56mm/F Liner 36mm 0d F X3 7.9mm Acetabular Hip - [id number] Start: 12-30-2018 Stem Accolade Ii 5 127d Femoral - [id number] Start: 12-30-2018 Head V40 36mm +2.5mm Offset Taper Biolox Delta Femoral Hip - [id number] Start: 12-30-2018 Goals Date Patient Goal Desired Activity /State Personal health goal Comment on above: Formatting of this n ote might be different from the original. Continue to stay healthy Comment on above: Formatting of this n ote might be different from the original. Continue to stay healthy Functional Status Date Assessment Result Facility 06-06-2025 Functional status Ambulates;Chair [facility] Work Phone: 06-05-2025 Functional status Tolerates Activity Well [facility] Work Phone: 05-04-2015 Are you deaf, or do you have serious difficulty hearing No 05/04/2015 11:05 AM Katherin Campbell MA No [facility] 05-04-2015 Are you blind, or do you have serious difficulty seeing, even when wearing glasses No 05/04/2015 11:05 AM Katherin Campbell MA No [facility] 05-04-2015 Do you have serious difficulty walking or climbing stairs No 05/04/2015 11:05 AM Katherin Campbell MA No [facility] 05-04-2015 Do you have difficul ty dressing or bathing No 05/04/2015 11:05 AM Katherin Campbell MA No [facility] 05-04-2015 Because of a physica l, mental, or emotional condition, do you have difficulty doing errands alone such as visiting a physician's office or shopping No 05/04/2015 11:05 AM Katheirn Campbell MA No [facility] Mental Status Date Assessment Result Facility 06-06-2025 Cognitive function Voice/Name [facility] Work Phone: 2025 Cognitive function Level Of Cons ciousness Awake;Alert;Appropriate [facility] Work Phone: 05-26-2025 Cognitive function Voice/Name [facility] Work Phone: 12-13-2023 Cognitive function Voice/Name [facility] Work Phone: 05-12-2023 Cognitive function Level Of Cons ciousness Awake;Alert;Appropriate [facility] Work Phone: 05-06-2023 Cognitive function Voice/Name [facility] Work Phone: 05-04-2015 Because of a physica l, mental, or emotional condition, do you have serious difficulty concentrating, remembering, or making decisions No 05/04/2015 11:05 AM EDT Katherin Schmidt MA No [facility] Clinical Notes 01-19-2010 to 07-25-2025 Massiel Morales MA - 07/20/2025 12:35 PM EDTEileen Degroot MA - 07/19/2025 1:25 PM EDTTelephone Encounter - Dora Whitman PA-C - 07/02/2025 11:26 AM EDT Note Date & Type Note Facility 07-25-2025 Note HNO ID: [id number] Author: JOSIE GARCIA LPN Service: ? Author Type: Licensed Nurse Type: Progress Notes Filed: 07/25/2025 20:03 Note Text: Pt received high dose flu vaccine while in office as ordered today. Pt tolerated well. [facility] 07-25-2025 Note HNO ID: [id number] Author: GLORIA CHRIS APRN.FELIPA Service: ? Author Type: Nurse Practitioner Type: Progress Notes Filed: 07/25/2025 20:03 Note Text: This is a 85 year old female who presents today with: UTI symptoms HISTORY OF PRESENT ILLNESS: Hematuria: - Large amount of blood noted in urine sample. - No visible blood when wiping, but Pat observed staining on the pad that looked like it (incontinence pad) - No history of nephrolithiasis. Back Pain: - Increased back pain over the last few days. - Previously managed with Celebrex, which was discontinued due to Eliquis initiation. - Using ice for pain relief Recurrent UTIs: - Hospitalized 6 weeks ago for a UTI with concerns of sepsis due to hypotension. 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 Rodriguez, thought to be contaminated and not treated - Scheduled to see a urologist in August for recurrent and resistant UTIs (Dr Mcdonald) - Current symptoms include burning and itching during urination, flank/back pain CKD Stage 3: - Recent GFR was 39 on 07/19 [facility] labs, down from 49-50 - proteinuria present >300 by ua dip AFib: - Diagnosed during recent hospitalization for UTI - Currently managed with Eliquis - Scheduled for a heart catheterization on Wednesday HTN: - Previously on Valsartan 320 mg, reduced to 160 mg, and recently increased back to [address] Salter. - Pat monitors blood pressure at home twice daily. - Heart cath on Wednesday, cardiology involved and to manage hypertensive/cardiac meds PAST MEDICAL HISTORY: PAST MEDICAL HISTORY Diagnosis Date Acquired hypothyroidism [...] hypertension 01/26/2017 Graves disease Heart attack (HCC) [place] stent in heart History of COVID-19 07/08/202205/2022 History of non-ST elevation myocardial infarction (NSTEMI) 01/19/201001/2010 Intradermal nevus 12/30/2014 right inferrior medial breast Keratosis, inflamed seborrheic 12/30/2014 right upper back Left carpal tunnel syndrome 01/04/[address] 12/03/2021 Daughter Truong is DPOA Low vitamin B12 level 04/06/2014 Lumbar radicular pain 05/26/2018 Added automatically from request for surgery [id number] Lump or mass in breast 01/20/2023 Patient declined evaluation with imaging or Tx if it were to be cancer. 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 Yi) XCAPSL CTRC RMVL INS (more content not included)... [facility] 07-20-2025 Note HNO ID: [id number] Author: MASSIEL MORALES MA Service: ? Author Type: Animal Husbandry Teacher Type: Progress Notes Filed: 07/24/2025 21:21 Note Text: Scan on 07/19/2025 10:37 AM by Gaudencio Castro PA-C: Consultation - Cardiology [facility] 07-20-2025 History of Presen t illness Narrative Scan on 07/19/2025 10:37 AM by Gaudencio Castro PA-C: Consultation - Cardiology documented in this encounter [facility] 07-19-2025 Note HNO ID: [id number] Author: EILEEN DEGROOT MA Service: ? Author Type: Animal Husbandry Teacher Type: Progress Notes Filed: 07/19/2025 13:25 Note Text: Scan on 07/19/2025 12:09 PM by Gaudencio Castro PA-C: BMP Scan on 07/19/2025 11:12 AM by Gaudencio Castro PA-C: Hematology Scan on 07/19/2025 10:37 AM by Gaudencio Castro PA-C: Consultation - Cardiology [facility] 07-19-2025 History of Presen t illness Narrative Scan on 07/19/2025 12:09 PM by Gaudencio Castro PA-C: BMP Scan on 07/19/2025 11:12 AM by Gaudencio Castro PA-C: Hematology Scan on 07/19/2025 10:37 AM by Gaudencio Castro PA-C: Consultation - Cardiology documented in this encounter [facility] 07-02-2025 Telephone encounter Note The following approved medication requests have been transmitted electronically. Requested Prescriptions Signed Prescriptions Disp Refills traMADol (ULTRAM) 50 mg tablet 270 tablet 0 Sig: Take 1 tablet by mouth every 8 hours as needed for pain for up to 90 days. Authorizing Provider: DORA WHITMAN PA-C [facility] 07-02-2025 Miscellaneous Notes The following approved medication requests have been transmitted electronically. Requested Prescriptions Signed Prescriptions Disp Refills traMADol (ULTRAM) 50 mg tablet 270 tablet 0 Sig: Take 1 tablet by mouth every 8 hours as needed for pain for up to 90 days. Authorizing Provider: DORA WHITMAN PA-C The patient has been identified by name and date of : Yes Caregiver verified no other encounters exist for this prescription request: Yes Caregiver confirmed with patient/requestor that no other refills are due, in the near future, with this provider at this time: No The last office visit in the department: 06/12/2025 Does the patient have a future office visit with this provider/department: Yes 08/20/2025 Requested Prescriptions Pending Prescriptions Disp Refills traMADol (ULTRAM) 50 mg tablet 270 tablet 0 Sig: Take 1 tablet by mouth every 8 hours as needed for pain for up to 90 days. Massiel Morales MA July 02, 2025 9:26 AM documented in this encounter [facility] 07-02-2025 Telephone encounter Note The patient has been identified by name and date of : Yes Caregiver verified no other encounters exist for this prescription request: Yes Caregiver confirmed with patient/requestor that no other refills are due, in the near future, with this provider at this time: No The last office visit in the department: 06/12/2025 Does the patient have a future office visit with this provider/department: Yes 08/20/2025 Requested Prescriptions Pending Prescriptions Disp Refills traMADol (ULTRAM) 50 mg tablet 270 tablet 0 Sig: Take 1 tablet by mouth every 8 hours as needed for pain for up to 90 days. Massiel Morales MA July 02, 2025 9:26 AM [facility] 06-25-2025 Note HNO ID: [id number] Author: VERONICA GUAJARDO RN Service: ? Author Type: Registered Nurse Type: Progress Notes Filed: 06/25/2025 16:53 Note Text: Transitional Care Management (TCM) Follow-Up Note PCP Update / Actionable Items N/A - No specialty updates needed Patient Source: Haz-qd-Aujktdp (OON) Discharge Outreach Summary: Daughter is caring for her. She had some afib today and daughter called and spoke to the [facility]. They reordered her medication and are aware. Her UTI symptoms have improved. They are checking her BP and it has been good as long as she is not in afib. No questions or concerns They plan on following up with urology after her heart cath and cardiac things have improved. Aware that she have another TCM RN Contact: Contact made with patient: Yes Spoke to: Kailyn Kessler Validation: Validated the person spoken to is actively involved in the patient's care. The patient was identified by Name and Date of . I'd like to get an update on how you're doing since our last phone call. Is now a good time to talk? Yes Symptoms: Are you feeling about the same, better or worse since leaving the hospital? Better Weekly Outreach: 2nd Outreach Medications: Do you have any questions about taking your medications, including which medications you should be on, or do you need refills on your medications? No Patient Questions / Concerns: Do you have any questions related to your discharge? No Appointment / TCM Follow-Up: Have you had a follow-up visit with your Primary Care Provider or Specialist since you were discharged? Yes Do you need any assistance with scheduling or changing your follow-up appointments? Patient already has an appointment scheduled SDOH: Has Food and Housing been addressed in [employer] in the past 3 months? Yes EDUCATION--: N/A Veronica Guajardo RN June 25, 2025 4:46 PM [facility] 06-25-2025 History of Presen t illness Narrative Transitional Care Management (TCM) Follow-Up Note PCP Update / Actionable Items N/A - No specialty updates needed Patient Source: Suq-hr-Uvdivcy (OON) Discharge Outreach Summary: Daughter is caring for her. She had some afib today and daughter called and spoke to the [facility]. They reordered her medication and are aware. Her UTI symptoms have improved. They are checking her BP and it has been good as long as she is not in afib. No questions or concerns They plan on following up with urology after her heart cath and cardiac things have improved. Aware that she have another TCM RN Contact: Contact made with patient: Yes Spoke to: Kailyn Kessler Validation: Validated the person spoken to is actively involved in the patient's care. The patient was identified by Name and Date of . I'd like to get an update on how you're doing since our last phone call. Is now a good time to talk? Yes Symptoms: Are you feeling about the same, better or worse since leaving the hospital? Better Weekly Outreach: 2nd Outreach Medications: Do you have any questions about taking your medications, including which medications you should be on, or do you need refills on your medications? No Patient Questions / Concerns: Do you have any questions related to your discharge? No Appointment / TCM Follow-Up: Have you had a follow-up visit with your Primary Care Provider or Specialist since you were discharged? Yes Do you need any assistance with scheduling or changing your follow-up appointments? Patient already has an appointment scheduled SDOH: Has Food and Housing been addressed in [employer] in the past 3 months? Yes EDUCATION--: N/A Veronica Guajardo RN June 25, 2025 4:46 PM documented in this encounter [facility] 06-25-2025 Note Patient Outreach ([facility] ANNE MARIE GARZA ([id number]) 1940 F Date Time Provider Department 06/25/25 VERONICA GUAJARDO During your visit today, we recorded the following information about you: Veronica Guajardo RN 06/25/2025 4:53 PM Signed Transitional Care Management (TCM) Follow-Up Note PCP Update / Actionable Items N/A - No specialty updates needed Patient Source: Jsj-yk-Hlejlqd (OON) Discharge Outreach Summary: Daughter is caring for her. She had some afib today and daughter called and spoke to the [facility]. They reordered her medication and are aware. Her UTI symptoms have improved. They are checking her BP and it has been good as long as she is not in afib. No questions or concerns They plan on following up with urology after her heart cath and cardiac things have improved. Aware that she have another TCM RN Contact: Contact made with patient: Yes Spoke to: Kailyn Kessler Validation: Validated the person spoken to is actively involved in the patient's care. The patient was identified by Name and Date of . I'd like to get an update on how you're doing since our last phone call. Is now a good time to talk? Yes Symptoms: Are you feeling about the same, better or worse since leaving the hospital? Better Weekly Outreach: 2nd Outreach Medications: Do you have any questions about taking your medications, including which medications you should be on, or do you need refills on your medications? No Patient Questions / Concerns: Do you have any questions related to your discharge? No Appointment / TCM Follow-Up: Have you had a follow-up visit with your Primary Care Provider or Specialist since you were discharged? Yes Do you need any assistance with scheduling or changing your follow-up appointments? Patient already has an appointment scheduled SDOH: Has Food and Housing been addressed in [employer] in the past 3 months? Yes EDUCATION--: N/A Veronica Guajardo RN June 25, 2025 4:46 PM Allergies As of Date: 06/25/2025 Noted Allergy Reaction IODINE 01/19/2010 10 - Anaphylaxis Comments: Had CT scan with Iodine and pre-cocktail, did fine without any side effects HCTZ (THIAZIDES) 03/20/2022 14 - Other: See [...] to feel jittery all over Date Reviewed: 06/12/2025 Reviewed by: Max Rodriguez MD - Fully Assessed Prescriptions as of 06/25/2025 - amiodarone (PACERONE) 200 mg tablet Take 1 tablet by mouth once daily. Per [facility]. - apixaban (ELIQUIS) 5 mg tab(s) Take 1 tablet by mouth two times a day. Per [facility]. - nitroglycerin sublingual (NITROQUICK) 0.4 mg SL tablet Dissolve 1 tablet under the tongue every 5 minutes as needed. - valsartan (DIOVAN) 160 mg tablet Take 1 tablet by mouth once daily. - traMADol (ULTRAM) 50 mg tablet Take 1 tablet by mouth every 8 hours as needed for pain for up to 90 days. - metoprolol succinate ER (TOPROL XL) 50 mg 24 hr tablet Take 1 tablet by mouth once daily. Decreased by [facility] 03/2025 due to SOB - DULoxetine (CYMBALTA) 30 mg capsule Take 1 capsule by mouth once daily. In place of the Citaloram - levothyroxine (LEVOXYL) 137 mcg tablet Take one tab by mouth once a day Wed-Wed, 1/2 on Wed and none on Wednesday. Take on empty stomach. For Thyroid. - omeprazole (PRILOSEC) 40 mg capsule Take 1 capsule by mouth two times a day. - rosuvastatin (CRESTOR) 5 mg tablet Take 1 tablet by mouth once daily. - albuterol HFA (PROVENTIL HFA, VENTOLIN HFA) 90 mcg/actuation inhaler Inhale 2 Puffs as instructed every 4 hours as needed. - ondansetron orally disintegrating (ZOFRAN ODT) 4 mg disintegrating tablet Take 1 tablet by mouth every 6 hours as needed for nausea/vomiting. - aspirin, enteric coated (ASPIRIN, ENTERIC COATED) 81 mg EC tablet Take 81 mg by mouth once daily. 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 [facility] 06-20-2025 Note HNO ID: [id number] Author: ORLY RICHARDSON LPN Service: ? Author Type: LICENSED NURSE Type: Progress Notes Filed: 06/20/2025 08:13 Note Text: Scan on 06/19/2025 5:11 PM by ProviderGaudencio PA-C: Consultation - Cardiology [facility] 06-20-2025 History of Presen t illness Narrative Scan on 06/19/2025 5:11 PM by ProviderGaudencio, PA-C: Consultation - Cardiology documented in this encounter [facility] 06-19-2025 Note HNO ID: [id number] Author: VERONICA GUAJARDO RN Service: ? Author Type: Registered Nurse Type: Progress Notes Filed: 06/19/2025 12:11 Note Text: Transitional Care Management (TCM) Follow-Up Note PCP Update / Actionable Items Dr Rodriguez, her BP has improved since being in your office. BP is 140/80 at last check. They wanted to let you know.They expect to get the results of her home heart monitor today and plan on telling Dr Rasmussen the results as well. Thank you N/A - No specialty updates needed Patient Source: Tsr-xm-Avtwhkf (OON) Discharge Outreach Summary: Daughter reports that she is doing ok. Glad to not have a UTI. They completed her heart monitor and expect to hear about the results today. They will give Dr Rasmussen the current bp readings at that time. She is checking her BP, last check was 140/80. Improved from when she was in the office. No other questions or concerns. Aware she will have additional TCM RN calls Contact: Contact made with patient: Yes Spoke to: Vidya Kessler Validation: Validated the person spoken to is actively involved in the patient's care. The patient was identified by Name and Date of . I'd like to get an update on how you're doing since our last phone call. Is now a good time to talk? Yes Symptoms: Are you feeling about the same, better or worse since leaving the hospital? Better Weekly Outreach: 1st Outreach Medications: Do you have any questions about taking your medications, including which medications you should be on, or do you need refills on your medications? No Patient Questions / Concerns: Do you have any questions related to your discharge? No Appointment / TCM Follow-Up: Have you had a follow-up visit with your Primary Care Provider or Specialist since you were discharged? Yes Do you need any assistance with scheduling or changing your follow-up appointments? Patient already has an appointment scheduled EDUCATION: N/A Veronica Guajardo RN June 19, 2025 10:29 AM [facility] 06-19-2025 History of Presen t illness Narrative Transitional Care Management (TCM) Follow-Up Note PCP Update / Actionable Items Dr Rodriguez, her BP has improved since being in your office. BP is 140/80 at last check. They wanted to let you know.They expect to get the results of her home heart monitor today and plan on telling Dr Rasmussen the results as well. Thank you N/A - No specialty updates needed Patient Source: Gcb-yi-Ombqpid (OON) Discharge Outreach Summary: Daughter reports that she is doing ok. Glad to not have a UTI. They completed her heart monitor and expect to hear about the results today. They will give Dr Rasmussen the current bp readings at that time. She is checking her BP, last check was 140/80. Improved from when she was in the office. No other questions or concerns. Aware she will have additional TCM RN calls Contact: Contact made with patient: Yes Spoke to: DaughterVidya Validation: Validated the person spoken to is actively involved in the patient's care. The patient was identified by Name and Date of . I'd like to get an update on how you're doing since our last phone call. Is now a good time to talk? Yes Symptoms: Are you feeling about the same, better or worse since leaving the hospital? Better Weekly Outreach: 1st Outreach Medications: Do you have any questions about taking your medications, including which medications you should be on, or do you need refills on your medications? No Patient Questions / Concerns: Do you have any questions related to your discharge? No Appointment / TCM Follow-Up: Have you had a follow-up visit with your Primary Care Provider or Specialist since you were discharged? Yes Do you need any assistance with scheduling or changing your follow-up appointments? Patient already has an appointment scheduled EDUCATION: N/A Veronica Guajardo RN June 19, 2025 10:29 AM documented in this encounter [facility] 06-19-2025 Note Patient Outreach ([facility] ANNE MARIE GARZA ([id number]) 1940 F Date Time Provider Department 06/19/25 VERON[facility] During your visit today, we recorded the following information about you: Veronica Guajardo, LIVE 06/19/2025 12:11 PM Signed Transitional Care Management (TCM) Follow-Up Note PCP Update / Actionable Items Dr Rodriguez, her BP has improved since being in your office. BP is 140/80 at last check. They wanted to let you know.They expect to get the results of her home heart monitor today and plan on telling Dr Rasmussen the results as well. Thank you N/A - No specialty updates needed Patient Source: Vlc-mj-Rrqnjqg (OON) Discharge Outreach Summary: Daughter reports that she is doing ok. Glad to not have a UTI. They completed her heart monitor and expect to hear about the results today. They will give Dr Rasmussen the current bp readings at that time. She is checking her BP, last check was 140/80. Improved from when she was in the office. No other questions or concerns. Aware she will have additional TCM RN calls Contact: Contact made with patient: Yes Spoke to: DaughterVidya Validation: Validated the person spoken to is actively involved in the patient's care. The patient was identified by Name and Date of . I'd like to get an update on how you're doing since our last phone call. Is now a good time to talk? Yes Symptoms: Are you feeling about the same, better or worse since leaving the hospital? Better Weekly Outreach: 1st Outreach Medications: Do you have any questions about taking your medications, including which medications you should be on, or do you need refills on your medications? No Patient Questions / Concerns: Do you have any questions related to your discharge? No Appointment / TCM Follow-Up: Have you had a follow-up visit with your Primary Care Provider or Specialist since you were discharged? Yes Do you need any assistance with scheduling or changing your follow-up appointments? Patient already has an appointment scheduled EDUCATION: N/A Veronica Guajardo RN June 19, 2025 10:29 AM Allergies As of Date: 06/19/2025 Noted Allergy Reaction IODINE 01/19/2010 10 - Anaphylaxis Comments: Had CT scan with Iodine and pre-cocktail, did fine without any side effects HCTZ (THIAZIDES) 03/20/2022 14 - Other: See [...] to feel jittery all over Date Reviewed: 06/12/2025 Reviewed by: Max Rodriguez MD - Fully Assessed Prescriptions as of 06/19/2025 - amiodarone (PACERONE) 200 mg tablet Take 1 tablet by mouth once daily. Per [facility]. - apixaban (ELIQUIS) 5 mg tab(s) Take 1 tablet by mouth two times a day. Per [facility]. - nitroglycerin sublingual (NITROQUICK) 0.4 mg SL tablet Dissolve 1 tablet under the tongue every 5 minutes as needed. - valsartan (DIOVAN) 160 mg tablet Take 1 tablet by mouth once daily. - traMADol (ULTRAM) 50 mg tablet Take 1 tablet by mouth every 8 hours as needed for pain for up to 90 days. - metoprolol succinate ER (TOPROL XL) 50 mg 24 hr tablet Take 1 tablet by mouth once daily. Decreased by [facility] 03/2025 due to SOB - DULoxetine (CYMBALTA) 30 mg capsule Take 1 capsule by mouth once daily. In place of the Citaloram - levothyroxine (LEVOXYL) 137 mcg tablet Take one tab by mouth once a day Wed-Wed, 1/2 on Wed and none on Wednesday. Take on empty stomach. For Thyroid. - omeprazole (PRILOSEC) 40 mg capsule Take 1 capsule by mouth two times a day. - rosuvastatin (CRESTOR) 5 mg tablet Take 1 tablet by mouth once daily. - albuterol HFA (PROVENTIL HFA, VENTOLIN HFA) 90 mcg/actuation inhaler Inhale 2 Puffs as instructed every 4 hours as needed. - ondansetron orally disintegrating (ZOFRAN ODT) 4 mg disintegrating tablet Take 1 tablet by mouth every 6 hours as needed for nausea/vomiting. - aspirin, enteric coated (ASPIRIN, ENTERIC COATED) 81 mg EC tablet Take 81 mg by mouth once daily. Problem List As Of Date 06/19/2025 Noted Resolved SUMMARY [V999.95] 01/19/2010 11/04/2011 History of non-ST elevation myocardial infarcti*01/19/2010 Mixed hyperlipidemia [E78.2] 01/19/2010 Anxiety [F41.9] 01/19/2010 Ex-smoker [Z87.891] 01/19/2010 Low vitamin B12 level [R79.89] 04/06/2014 Intradermal nevus [D23.9] 12/30/2014 Keratosis, inflamed seborrheic [L82.0] 12/30/2014 Colon cancer screening [Z12.11] 04/02/2015 (more content not included)... [facility] 06-12-2025 Note HNO ID: [id number] Author: VERONICA GUAJARDO RN Service: ? Author Type: Registered Nurse Type: Progress Notes Filed: 06/12/2025 13:45 Note Text: Transition Care Management (TCM) Initial Outreach PCP Update / Actionable Items HRTIC TCM Home Visit Referral Source of Stratification: TCM HUB Hospital Admission Status: Discharged Readmission Risk Score: n/a Patient's zip code: Is zip code within program service area: Patient meets program referral criteria: No Patient does not qualify for High Risk TCM Home Visit program due to: Readmission Risk Score does not meet criteria Disposition: Patient does not qualify for HRTIC, will provide TCM outreach follow-up for 30-days Patient Source: Dfl-ro-Xajtxde (OON) Discharge Outreach Summary: Daughter reports she is home and doing well. She is feeling good. They had PCP hospital follow up today and some medications were changed. They have had the cardiac follow up already. She follow with Dr Rasmussen in [place] for her cardiac visits. She is living with her daughter and daughter helps her as needed. They will check her BP at home and follow up with Dr Rasmussen. Aware tCM RN will call for the next few weeks Patient discharged from Discharge date: 06/06 Admitted for: UTI Readmission Risk: Value-Based Contract: [employer] ANGEL LUIS Contact: Contact made with patient: Yes Hi, my name is Veronica Guajardo RN and I am calling from the [facility] on behalf of your Primary Care Provider, Max Rodriguez MD. I understand you were recently in the hospital, so I am calling to check in with you to ensure you are feeling well now that you are home. May I ask you a few questions related to your hospital stay and well-being? Yes Spoke to: DaughterKailyn Validation: Validated the person spoken to is actively involved in the patient's care. The patient was identified by Name and Date of . Symptoms: Are you feeling about the same, better or worse since leaving the hospital? Better Medications: Do you have any questions about taking your medications, including which medications you should be on, or do you need refills on your medications? No Medication Review: Declined at this time per patient preference Discharge Instructions: Your Discharge Instructions / After Visit Summary (AVS) are important in guiding you through the recovery process. Do you have any questions related to your discharge instructions? No Home Care: Were you discharged with home care? No Equipment: Do you have all the necessary equipment and supplies needed at your home? No Reviewed equipment and supplies needed Facilitated any orders and/or provider updates on behalf of the patient as needed Social: Your mental health is as important to us as your physical health. Would you mind answering a few questions on this topic? No, patient declines. Follow-Up Appointment: [Appointment / TCM Follow-up within 14 days] I would like to help you schedule a hospital follow-up virtual or telephone visit with your PCP. This is a great way for you to connect with your provider to ensure you have safely transitioned home. If you are agreeable, I will send your request to a welfare investigator who will contact and assist you with that appointment. This will give you an opportunity to ask any questions or address any concerns you may have with your PCP. Inform the patient that if they have any questions or concerns prior to that appointment, to call their PCP's office right away. Appointment Action: No action required; patient already has appointment scheduled. Education details: High Blood Pressure Topics Covered Importance of checking and monitoring your blood pressure at home Veronica Guajardo RN June 12, 2025 1:03 PM [facility] 06-12-2025 Note HNO ID: [id number] Author: MAX RODRIGUEZ MD Service: ? Author Type: Physician Type: Progress Notes Filed: 06/12/2025 12:09 Note Text: Chief Complaint Patient presents with: Hospital Follow Up HPI Anne Marie Garza is a 85 year old female who presents here today for a Hospital follow up. Here today with Daughter. Pt presented to [facility] ED on 06/04/25 for hypotension. Patient was seen outpatient by her Director Of Rehabilitation and advised to hold her BP medications due to low BP. Was advised by Cardiology if BP was 80/50 to present to the ED. Was dx with afib during admission. Was originally scheduled for heart cath on 06/18/25 but this has been cancelled. During admission patient continued to have UTI on testing. Pt was previously treated during [facility] ED visit on 05/26/25 due to UTI findings. Received Rocephin during hospital visit and d/c home with Cefdinir 300 mg bid for 1 week Due to cultures, she was resistant and was changed to Macrobid 100 mg bid. Patient did note she has recurrent UTI's. On most recent d/c patient was advised to f/u with Urology due to recurrent UTI's and resistance to abx medication. [facility] Admission: Date of Admission: 06/04/25 Date of Discharge: 06/06/25 Discharge Diagnosis (1) Infection due to ESBL-producing Escherichia coli: Status: Acute Code(s): A49.8 - Other bacterial infections of unspecified site; Z16.12 - Extended spectrum beta lactamase (ESBL) resistance Hospital Course: Mrs. 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 The patient was being seen in the outpatient office and followed up by cardiology. They had altered her antihypertensive medicines due to low blood pressure. She followed up on the day of admission with a blood pressure of 80/50 and was told by the ball maker office to come to the emergency department for further evaluation. She was recently diagnosed with urinary tract infection and given antibiotics but antibiotics as an outpatient had been changed due to ESBL E. coli being found. Is unclear what antibiotic she was on for this. Patient does states she does get quite frequent UTIs and does not follow-up with urology. Patient denies dysuria but states her urine is frothy and she has had frequency. The patient was in the emergency department and after her treat with meropenem she was ambulating and felt dyspneic and was found to be mildly hypoxic. Given this she was admitted for treatment of her UTI with antibiotics and monitoring her oxygen levels. She did not require oxygen during hospitalization. ID was consulted given an ESBL organism and she was maintained on meropenem and received a total of 3 days treatment with a dose of ertapenem 1 g prior to discharge. This was under the direction of infectious disease. She was ambulating around the room without any dyspnea and all of a sudden developed dyspnea. On the monitor she was noted to be in A-fib with RVR having heart rates between 150 and 160. I highly suspect this is the etiology of her intermittent shortness of breath as an outpatient. She has had a fairly extensive workup from pulmonology and cardiology and never found to have any arrhythmias. In fact, she was scheduled for cardiac catheterization on the . She was given amiodarone bolus of 150 and converted back to normal sinus rhythm. We placed her on Eliquis 5 mg p.o. twice daily and explained the reasonfor this being her risk of stroke. Her LSE0OM3-MIWm 2 score is 5 giving her a 10% risk of stroke/TIA/systemic embolism per year. Her home beta-tracey was reinitiated and we continue to hold her valsartan and amlodipine. She was started on amiodarone oral and she will get 200 mg 3 times daily for 1 week then 200 mg 2 times daily x 1 week then 200 mg daily. Her TSH is within normal limits and liver functions were normal at the time of initiation of amiodarone. I did notify Dr. Rasmussen, her ball maker that we did this she has follow-up tomorrow in the ball maker office. I also did order a 48-hour Holter monitor on her for assessment of her cardiac rhythm. Given her frequent UTIs have also requested she contact Dr. Fuentes's office next week to set an appointment to be evaluated further. She was seen by physical therapy given weakness on presentation and did very well with no need of ongoing therapy services at time of discharge. Patient was discharged home in stable condition after her last dose of ertapenem on 06/06/2025. Prescriptions were sent to her local pharmacy. Labs: 06/04/25 19:39 Urine, Clean Catch Urine Culture - Preliminary Mixed Gram Pos AND Gram Neg Org Prescriptions: New Eliquis 5 mg Tablet 5 mg PO BID Qty: 60 5RF amiodarone 200 mg tablet 200 mg PO DAILY Qty: 49 0RF Rx Instructions: Take 1 tablet 3 times a day for 1 week, 1 t (more content not included)... [facility] 06-12-2025 Telephone encounter Note Pt scheduled with PCP 06/12/25. Eileen Degroot MA [facility] 06-12-2025 Miscellaneous Notes Pt scheduled with PCP 06/12/25. Eileen Degroot MA Advised pt an ED f/u should be scheduled to recheck a urine and do a Hospital f/u. Offered to schedule with PCP Team this week. Wait pt response. Eileen Degroot MA documented in this encounter [facility] 06-12-2025 Note Patient Outreach (AM BC) ANNE MARIE GARZA ([id number]) 1940 F Date Time Provider Department 06/12/25 VERONICA GUAJARDO During your visit today, we recorded the following information about you: Veronica Guajardo RN 06/12/2025 1:45 PM Signed Transition Care Management (TCM) Initial Outreach PCP Update / Actionable Items HRTIC TCM Home Visit Referral Source of Stratification: TCM HUB Hospital Admission Status: Discharged Readmission Risk Score: n/a Patient's zip code: Is zip code within program service area: Patient meets program referral criteria: No Patient does not qualify for High Risk TCM Home Visit program due to: Readmission Risk Score does not meet criteria Disposition: Patient does not qualify for HRTIC, will provide TCM outreach follow-up for 30-days Patient Source: [facility] (OON) Discharge Outreach Summary: Daughter reports she is home and doing well. She is feeling good. They had PCP hospital follow up today and some medications were changed. They have had the cardiac follow up already. She follow with Dr Rasmussen in [place] for her cardiac visits. She is living with her daughter and daughter helps her as needed. They will check her BP at home and follow up with Dr Rasmussen. Aware tCM RN will call for the next few weeks Patient discharged from Discharge date: 06/06 Admitted for: UTI Readmission Risk: Value-Based Contract: [employer] HEIN Contact: Contact made with patient: Yes Hi, my name is Veronica Guajardo RN and I am calling from the [facility] on behalf of your Primary Care Provider, Max Rodriguez MD. I understand you were recently in the hospital, so I am calling to check in with you to ensure you are feeling well now that you are home. May I ask you a few questions related to your hospital stay and well-being? Yes Spoke to: DaughterKailyn Validation: Validated the person spoken to is actively involved in the patient's care. The patient was identified by Name and Date of . Symptoms: Are you feeling about the same, better or worse since leaving the hospital? Better Medications: Do you have any questions about taking your medications, including which medications you should be on, or do you need refills on your medications? No Medication Review: Declined at this time per patient preference Discharge Instructions: Your Discharge Instructions / After Visit Summary (AVS) are important in guiding you through the recovery process. Do you have any questions related to your discharge instructions? No Home Care: Were you discharged with home care? No Equipment: Do you have all the necessary equipment and supplies needed at your home? No Reviewed equipment and supplies needed Facilitated any orders and/or provider updates on behalf of the patient as needed Social: Your mental health is as important to us as your physical health. Would you mind answering a few questions on this topic? No, patient declines. Follow-Up Appointment: [Appointment / TCM Follow-up within 14 days] I would like to help you schedule a hospital follow-up virtual or telephone visit with your PCP. This is a great way for you to connect with your provider to ensure you have safely transitioned home. If you are agreeable, I will send your request to a welfare investigator who will contact and assist you with that appointment. This will give you an opportunity to ask any questions or address any concerns you may have with your PCP. Inform the patient that if they have any questions or concerns prior to that appointment, to call their PCP's office right away. Appointment Action: No action required; patient already has appointment scheduled. Education details: High Blood Pressure Topics Covered Importance of checking and monitoring your blood pressure at home Veronica Guajardo RN June 12, 2025 1:03 PM Allergies As of Date: 06/12/2025 Noted Allergy Reaction IODINE 01/19/2010 10 - Anaphylaxis Comments: Had CT scan with Iodine and pre-cocktail, did fine without any side effects HCTZ (THIAZIDES) 03/20/2022 14 - Other: See [...] to feel jittery all over Date Reviewed: 06/12/2025 Reviewed by: Max Rodriguez MD - Fully Assessed Prescriptions as of 06/12/2025 - amiodarone (PACERONE) 200 mg tablet Take 1 tablet by mouth once daily. Per [facility]. - apixaban (more content not included)... [facility] 06-06-2025 Progress note [facility] 06-06-2025 Discharge summary Note Date/Time June 06, 2025 4:29pm [facility] Medical Records Department [address] [place] [address] Discharge Summary 06/06/25 1604 MR#: [id number] Acct: [id number] Name: ANNE MARIE GARZA Rep #:[id number] : 1940 85 From: Massiel De La Cruz DO PCP: Dr. Max Rodriguez MD Status:ADM IN Location: [place] [address]- [id number] Providers Date of Admission: 06/04/25 Date of Discharge: 06/06/25 Primary Care Physician: Dr. Max Rodriguez MD Consultations 06/05/25 08:08 Consult: Infectious Disease Routine Consulting Provider: Mathew Cheema Reason for Consult: ESBL E. coli EMERGENT Consult: No MD Notified: Yes Date Notified: 06/05/25 Time Notified: 08:23 Method of Notification: Text Reason For Visit: GENERALIZED WEAKNESS, UTI, DYSPNEA ON EXERTION Diagnosis Discharge Diagnosis (1) Infection due to ESBL-producing Escherichia coli: Status: Acute Code(s): A49.8 - Other bacterial infections of unspecified site; Z16.12 - Extended spectrum beta lactamase (ESBL) resistance Medications at Discharge Home Medications aspirin 81 mg chewable tablet 81 mg PO DAILY@0800 heart health 05/07/20 rosuvastatin 5 mg tablet 5 mg PO DAILY cholesterol 05/07/20 omeprazole 40 mg capsule,delayed release 40 mg PO BID stomach 01/29/22 celecoxib 200 mg capsule (Celebrex) 200 mg PO BID mood 01/21/24 Held on 06/06/25. Instructions: I would recommend holding this while you are on blood thinners to prevent GI bleed duloxetine 30 mg capsule,delayed release 30 mg PO QDAY mood 03/22/25 metoprolol succinate 50 mg tablet,extended release 24 hr 50 mg PO DAILY heart #90 tabs 03/22/25 tramadol 50 mg tablet 50 mg PO Q12H Pain Score 1-10 03/22/25 valsartan 320 mg tablet 320 mg PO QDAY bp 03/22/25 Held on 06/06/25. Instructions: Until told to restart amlodipine 10 mg tablet 10 mg PO QDAY bp 05/30/25 Held on 06/06/25. Instructions: until told to restart levothyroxine 137 mcg tablet (Levoxyl) 137 mcg PO MOTUWETHFR thyroid 05/30/25 levothyroxine 137 mcg tablet (Synthroid) 68.5 mcg PO SA thyroid 05/30/25 amiodarone 200 mg tablet 200 mg PO DAILY #49 tabs 06/06/25 apixaban 5 mg tablet (Eliquis) 5 mg PO BID #60 tabs 06/06/25 Hospital Course Operations None Procedures - (Chest x-ray) Summary of Care Provided Minutes Spent on Discharge: 41 Hospital Course: Mrs. 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 The patient wasbeing seen in the outpatient office and followed up by cardiology. They had altered her antihypertensive medicines due to low blood pressure. She followed up on the day of admission with a blood pressure of 80/50 and was told by the ball maker office to come to the emergency department for further evaluation. She was recently diagnosed with urinary tract infection and given antibiotics but antibiotics as an outpatient had been changed due to ESBL E. coli being found. Is unclear what antibiotic she was on for this. Patient does states shedoes get quite frequent UTIs and does not follow-up with urology. Patient denies dysuria but states her urine is frothy and she has had frequency. The patient was in the emergency department and after her treat with meropenem she was ambulating and felt dyspneic and was found to be mildly hypoxic. Given thisshe was admitted for treatment of her UTI with antibiotics and monitoring her oxygen levels. She did not require oxygen during hospitalization. ID was consulted given an ESBL organism and she was maintained on meropenem and received a total of 3 days treatment with a dose of ertapenem 1 g prior to discharge. This was under the direction of infectious disease. She was ambulating around the room without any dyspnea and all of a sudden developed dyspnea. On the monitor she was noted to be in A-fib with RVR having heart rates between 150 and 160. I highly suspect this is the etiology of her intermittent shortness of breath as an outpatient. She has had a fairly extensive workup from pulmonology and cardiology and never found to have any arrhythmias. In fact, she was scheduled for cardiac catheterization on the . She was given amiodarone bolus of 150 and converted back to normal sinus rhythm. We placed her on Eliquis 5 mg p.o. twice daily and explained the reasonfor this being her risk of stroke. Her YCG2GV3-KFVp 2 score is 5 giving her a 10% risk of stroke/TIA/systemic embolism per year. Her home beta-tracey was reinitiated and we continue to hold her valsartan and amlodipine. She was started on amiodarone oral and she will get 200 mg 3 times daily for 1 week [id number] mg 2 times daily x 1 week then 200 mg daily. Her TSH is within normal limits and liver functions were normal at the time of initiation of amiodarone. I did notify Dr. Rasmussen, her ball maker that we did this she has follow-up tomorrow in the ball maker office. I also did order a 48-hour Holter monitor on her for assessment of her cardiac rhythm. Given her frequent UTIs have also requested she contact Dr. Fuentes's office next week to set an appointment to beevaluated further. She was seen by physical therapy given weakness on presentation and did very well with no need of ongoing therapy services at time of discharge. Patient was discharged home in stable condition after her last dose of ertapenem on 06/06/2025. Prescriptions were sent to her local pharmacy. Discharge diagnoses: ESBL complicated E. coli UTI New onset A-fib with RVR Dyspnea on exertion Generalized weakness CAD Essential hypertension Hyperlipidemia Hypothyroidism COPD GERD Depression B12 deficiency Osteoarthritis Obesity Physical Exam Const alert, oriented x3, no apparent distress, no limitations, healthy appearing and well nourished; Negative for average body habitus Constitutional Narrative: Obese, elderly, white female, sitting up in bed, appears well, General Appearance: cooperative, comfortable, well kempt and well developed Exam Limitations: no limitations Nutritional Appearance: obese HEENT normocephalic, head/scalp atraumatic and moist oral mucous membranes; Negative for hearing grossly normal bilaterally HEENT Narrative: Mild hearing loss, Mallampati is 2 Eyes PERRL and conjunctivae normal Eyes Narrative: No scleral icterus Resp normal respiratory effort, normal air movement, no retractions, no use of accessory muscles and clear to auscultation bilaterally Auscultation: Negative for crackles, rhonchi or wheezes Cardio regular rate, regular rhythm, S1 normal heart sound, S2 normal heart sound, no murmurs, no rub, no gallops and no clicks GI normal to inspection, nondistended, normoactive bowel sounds, soft to palpation and non-tender Extremity no clubbing, cyanosis or edema Extremity Narrative: Pedal and radial pulses are 2+ Skin no jaundice General Skin Exam: no breakdown Neuro oriented x3, moves all extremities and no focal motor deficits Speech: speech normal Psych thought process normal, cooperative and affect normal Psych Narrative: Very pleasant, interacts appropriately, makes good eye contact Weight / BMI Weight Weight: 82.554 kg Body Mass Index (BMI) 31.2 ABG / Lab / Microbiology Data 06/06/25 05:26 06/06/25 05:26 Laboratory: Laboratory Results - last 24 hr 06/06/25 05:26: WBC 8.8, RBC 4.03 L, Hgb 11.3 L, Hct 34.3 L, MCV 85.1, MCH 28.0,MCHC 32.9, RDW Std Deviation 45.5 H, RDW Coeff of Kal 14.6, Plt Count 314, MPV 10.0, Sodium 141, Potassium 4.4, Chloride 107, Carbon Dioxide 24.6, Anion Gap 10, BUN 18, Creatinine 1.13, Estim Creat Clear Calc 38.52 L, Est GFR (MDRD) Non-Af 48 L, BUN/Creatinine Ratio 15.6, Glucose 100 H, Calcium 8.7, Phosphorus 3.7, Magnesium 1.7, Total Bilirubin 0.33, AST 19, ALT 18, Alkaline Phosphatase 69, Total Protein 5.8 L, Albumin 3.0 L, Globulin 2.8, Albumin/Globulin Ratio 1.1 Microbiology: Microbiology 06/04/25 19:39 Urine, Clean Catch Urine Culture - Preliminary Mixed Gram Pos & Gram Neg Org D/C Instructions Discharge Activity: Return to Normal Activity DC O2, CPAP, BIPAP Needs Home O2 Discharge instructions: No Meaningful Use Info Meaningful Use Meaningful Use Diagnoses (Choose all that apply): None applicable Discharge Plan Admission Admit Date/Time: 06/04/25 21:53 Primary Reason for Your Visit: Weakness/shortness of breath Attending Provider: Massiel De La Cruz Primary Care Provider: Max Rodriguez Consulting Providers: Antonio Daly; Mathew Cheema Instructions Additional Instructions / Restrictions: 1. I am going to have you follow-up with urology- Dr. Fuentes--> call next weekto set up an appointment since you are having frequent urinary tract infections. Discharge Orders/Prescriptions Prescriptions: New Eliquis 5 mg Tablet 5 mg PO BID Qty: 60 5RF amiodarone 200 mg tablet 200 mg PO DAILY Qty: 49 0RF Rx Instructions: Take 1 tablet 3 times a day for 1 week, 1 tablet 2 times a day for 1 week then 1 tablet daily Continued omeprazole 40 mg capsule,delayed release(DR/EC) 40 mg PO BID duloxetine 30 mg capsule,delayed release(DR/EC) 30 mg PO QDAY metoprolol succinate 50 mg tablet extended release 24 hr 50 mg PO DAILY Qty: 90 3RF levothyroxine [Levoxyl] 137 mcg tablet 137 mcg PO MOTUWETHFR levothyroxine [Synthroid] 137 mcg tablet 68.5 mcg PO SA aspirin 81 MG tablet,chewable 81 mg PO DAILY@0800 rosuvastatin 5 MG tablet 5 mg PO DAILY tramadol 50 mg tablet 50 mg PO Q12H Held celecoxib [Celebrex] 200 mg capsule 200 mg PO BID Hold Instructions: I would recommend holding this while you are on blood thinners to prevent GI bleed valsartan 320 mg tablet 320 mg PO QDAY Hold Instructions: Until told to restart amlodipine 10 mg tablet 10 mg PO QDAY Hold Instructions: until told to restart Other Ambulatory Orders: Cardiac Holter Monitor, 48 Hrs (Routine) Timeframe: 2 Days Facility: [facility] - Location: Cardiovascular Services Ordered By: Dr. Massiel De La Cruz Referrals / Follow Up: Sandra Fuentes MD [Med Staff - Active Staff] - See Referral Note (Call office next week to set up an appointment for frequent resistant UTIs) Max Rodriguez MD [Primary Care Provider] - Ilene Salter PA [Med Staff - Adv Practice Prof] - 06/07/25 2:00 pm Disposition Disposition (needs filled in before D/C Order can be placed): Home, Self Care Charges/Coding Visit Charges Inpatient E&M: 94700 Disch Hosp >30min 06/06/25 1629 <Electronically signed by Massiel De La Cruz DO> Cosigner Signature (if applicable): CC: Dr. Sandra Fuentes MD; Dr. Max Rodriguez MD; Dr. Massiel De La Cruz DO; RE Elizondo~ Signed [facility] Work Phone: [phone]) 216-102107-30-2025 Discharge summary [facility] Medical Records Department [address] [place] [address] Discharge Summary 06/06/25 1604 MR#: [id number] Acct: [id number] Name: ANNE MARIE GARZA Rep #:[id number] : 1940 85 From: Massiel De La Cruz DO PCP: Dr. Max Rodriguez MD Status:ADM IN [facility] Providers Date of Admission: 06/04/25 Date of Discharge: 06/06/25 Primary Care Physician: Dr. Max Rodriguez MD Consultations 06/05/25 08:08 Consult: Infectious Disease Routine Consulting Provider: Mathew Cheema Reason for Consult: ESBL E. coli EMERGENT Consult: No MD Notified: Yes Date Notified: 06/05/25 Time Notified: 08:23 Method of Notification: Text Reason For Visit: GENERALIZED WEAKNESS, UTI, DYSPNEA ON EXERTION Diagnosis Discharge Diagnosis (1) Infection due to ESBL-producing Escherichia coli: Status: Acute Code(s): A49.8 - Other bacterial infections of unspecified site; Z16.12 - Extended spectrum beta lactamase (ESBL) resistance Medications at Discharge Home Medications aspirin 81 mg chewable tablet 81 mg PO DAILY@0800 heart health 05/07/20 rosuvastatin 5 mg tablet 5 mg PO DAILY cholesterol 05/07/20 omeprazole 40 mg capsule,delayed release 40 mg PO BID stomach 01/29/22 celecoxib 200 mg capsule (Celebrex) 200 mg PO BID mood 01/21/24 Held on 06/06/25. Instructions: I would recommend holding this while you are on blood thinners to prevent GI bleed duloxetine 30 mg capsule,delayed release 30 mg PO QDAY mood 03/22/25 metoprolol succinate 50 mg tablet,extended release 24 hr 50 mg PO DAILY heart #90 tabs 03/22/25 tramadol 50 mg tablet 50 mg PO Q12H Pain Score 1-10 03/22/25 valsartan 320 mg tablet 320 mg PO QDAY bp 03/22/25 Held on 06/06/25. Instructions: Until told to restart amlodipine 10 mg tablet 10 mg PO QDAY bp 05/30/25 Held on 06/06/25. Instructions: until told to restart levothyroxine 137 mcg tablet (Levoxyl) 137 mcg PO MOTUWETHFR thyroid 05/30/25 levothyroxine 137 mcg tablet (Synthroid) 68.5 mcg PO SA thyroid 05/30/25 amiodarone 200 mg tablet 200 mg PO DAILY #49 tabs 06/06/25 apixaban 5 mg tablet (Eliquis) 5 mg PO BID #60 tabs 06/06/25 Hospital Course Operations None Procedures - (Chest x-ray) Summary of Care Provided Minutes Spent on Discharge: 41 Hospital Course: Mrs. 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 The patient wasbeing seen in the outpatient office and followed up by cardiology. They had altered her antihypertensive medicines due to low blood pressure. She followed up on the day of admission with a blood pressure of 80/50 and was told by the ball maker office to come to the emergency department for further evaluation. She was recently diagnosed with urinary tract infection and given antibiotics but antibiotics as an outpatient had been changed due to ESBL E. coli being found.Is unclear what antibiotic she was on for this. Patient does states shedoes get quite frequent UTIsand does not follow-up with urology. Patient denies dysuria but states her urine is frothy and she has had frequency. The patient was in the emergency department and after her treat with meropenem she was ambulating and felt dyspneic and was found to be mildly hypoxic. Given thisshe was admitted for treatment of her UTI with antibiotics and monitoring her oxygen levels. She did not require oxygenduring hospitalization. ID was consulted given an ESBL organism and she was maintained on meropenemand received a total of 3 days treatment with a dose of ertapenem 1 g prior to discharge. This was under the direction of infectious disease. She was ambulating around the room without any dyspnea and all of a sudden developed dyspnea. On the monitor she was noted to be in A-fib with RVR having heart rates between 150 and 160. I highly suspect this is the etiology of her intermittent shortness of breath as an outpatient. She has had a fairly extensive workup from pulmonology and cardiology and never found to have any arrhythmias. In fact, she was scheduled for cardiac catheterization on the . She was given amiodarone bolus of 150 and converted back to normal sinus rhythm. We placed her on Eliquis 5 mg p.o. twice daily and explained the reasonfor this being her risk of stroke. Her EZR4MV6-NYMm 2 score is 5 giving her a 10% risk of stroke/TIA/systemic embolism per year. Her home beta-tracey was reinitiated and we continue to hold her valsartan and amlodipine. She was started on amiodarone oral and she will get 200 mg 3 times daily for 1 week [id number] mg 2 times daily x 1 week [id number] mg daily. Her TSH is within normal limits and liver functions were normal at the time of initiation of amiodarone. I did notify Dr. Rasmussen, her ball maker that we did this she has follow-up tomorrow in the ball maker office. I also did order a 48-hour Holter monitor on her for assessment of her cardiac rhythm. Given her frequent UTIs have also requested she contact Dr. Fuentes's office next week to set an appointment to beevaluated further. She was seen by physical therapy given weaknesson presentation and did very well with no need of ongoing therapy services at time of discharge. Patient was discharged home in stable condition after her last dose of ertapenem on 06/06/2025. Prescriptions were sent to her local pharmacy. Discharge diagnoses: ESBL complicated E. coli UTI New onset A-fib with RVR Dyspnea on exertion Generalized weakness CAD Essential hypertension Hyperlipidemia Hypothyroidism COPD GERD Depression B12 deficiency Osteoarthritis Obesity Physical Exam Const alert, oriented x3, no apparent distress, no limitations, healthy appearing and well nourished; Negative for average body habitus Constitutional Narrative: Obese, elderly, white female, sitting up in bed, appears well, General Appearance: cooperative, comfortable, well kempt and well developed Exam Limitations: no limitations Nutritional Appearance: obese HEENT normocephalic, head/scalp atraumatic and moist oral mucous membranes; Negative for hearing grossly normal bilaterally HEENT Narrative: Mild hearing loss, Mallampati is 2 Eyes PERRL and conjunctivae normal Eyes Narrative: No scleral icterus Resp normal respiratory effort, normal air movement, no retractions, no use of accessory muscles and clear to auscultation bilaterally Auscultation: Negative for crackles, rhonchi or wheezes Cardio regular rate, regular rhythm, S1 normal heart sound, S2 normal heart sound, no murmurs, no rub, no gallops and no clicks GI normal to inspection, nondistended, normoactive bowel sounds, soft to palpation and non-tender Extremity no clubbing, cyanosis or edema Extremity Narrative: Pedal and radial pulses are 2+ Skin no jaundice General Skin Exam: no breakdown Neuro oriented x3, moves all extremities and no focal motor deficits Speech: speech normal Psych thought process normal, cooperative and affect normal Psych Narrative: Very pleasant, interacts appropriately, makes good eye contact Weight / BMI Weight Weight: 82.554 kg Body Mass Index (BMI) 31.2 ABG / Lab / Microbiology Data 06/06/25 05:26 06/06/25 05:26 Laboratory: Laboratory Results - last 24 hr 06/06/25 05:26: WBC 8.8, RBC 4.03 L, Hgb 11.3 L, Hct 34.3 L, MCV 85.1, MCH 28.0,MCHC 32.9, RDW Std Deviation 45.5 H, RDW Coeff of Kal 14.6, Plt Count 314, MPV 10.0, Sodium 141, Potassium 4.4, Chloride 107, Carbon Dioxide 24.6, Anion Gap 10, BUN 18, Creatinine 1.13, Estim Creat Clear Calc 38.52 L, Est GFR (MDRD) Non-Af 48 L, BUN/Creatinine Ratio 15.6, Glucose 100 H, Calcium 8.7, Phosphorus 3.7, Magnesium 1.7, Total Bilirubin 0.33, AST 19, ALT 18, Alkaline Phosphatase 69, Total Protein 5.8 L, Albumin 3.0 L, Globulin 2.8, Albumin/Globulin Ratio 1.1 Microbiology: Microbiology 06/04/25 19:39 Urine, Clean Catch Urine Culture - Preliminary Mixed Gram Pos & Gram Neg Org D/C Instructions Discharge Activity: Return to Normal Activity DC O2, CPAP, BIPAP Needs Home O2 Discharge instructions: No Meaningful Use Info Meaningful Use Meaningful Use Diagnoses (Choose all that apply): None applicable Discharge Plan Admission Admit Date/Time: 06/04/25 21:53 Primary Reason for Your Visit: Weakness/shortness of breath Attending Provider: Massiel De La Cruz Primary Care Provider: Max Rodriguez Consulting Providers: Antonio Daly; Mathew Cheema Instructions Additional Instructions / Restrictions: 1. I am going to have you follow-up with urology- Dr. Fuentes--> call next weekto set up an appointment since you are having frequent urinary tract infections. Discharge Orders/Prescriptions Prescriptions: New Eliquis 5 mg Tablet 5 mg PO BID Qty: 60 5RF amiodarone 200 mg tablet 200 mg PO DAILY Qty: 49 0RF Rx Instructions: Take 1 tablet 3 times a day for 1 week, 1 tablet 2 times a day for 1 week then 1 tablet daily Continued omeprazole 40 mg capsule,delayed release(DR/EC) 40 mg PO BID duloxetine 30 mg capsule,delayed release(DR/EC) 30 mg PO QDAY metoprolol succinate 50 mg tablet extended release 24 hr 50 mg PO DAILY Qty: 90 3RF levothyroxine [Levoxyl] 137 mcg tablet 137 mcg PO MOTUWETHFR levothyroxine [Synthroid] 137 mcg tablet 68.5 mcg PO SA aspirin 81 MG tablet,chewable 81 mg PO DAILY@0800 rosuvastatin 5 MG tablet 5 mg PO DAILY tramadol 50 mg tablet 50 mg PO Q12H Held celecoxib [Celebrex] 200 mg capsule 200 mg PO BID Hold Instructions: I would recommend holding this while you are on blood thinners to prevent GI bleed valsartan 320 mg tablet 320 mg PO QDAY Hold Instructions: Until told to restart amlodipine 10 mg tablet 10 mg PO QDAY Hold Instructions: until told to restart Other Ambulatory Orders: Cardiac Holter Monitor, 48 Hrs (Routine) Timeframe: 2 Days Facility: [facility] - Location: Cardiovascular Services Ordered By: Dr. Massiel De La Cruz Referrals / Follow Up: Sandra Fuentes MD [Med Staff - Active Staff] - See Referral Note (Call office next week to set up an appointment for frequent resistant UTIs) Max Rodriguez MD [Primary Care Provider] - Ilene Salter PA [Med Staff - Adv Practice Prof] - 06/07/25 2:00 pm Disposition Disposition (needs filled in before D/C Order can be placed): Home, Self Care Charges/Coding Visit Charges Inpatient E&M: 16986 Disch Hosp >30min 06/06/25 1629 Cosigner Signature (if applicable): CC: Dr. Sandra Fuentes MD; Dr. Max Rodriguez MD; Dr. Massiel De La Cruz DO; RE Elizondo~ Signed [facility]07-30-2025 [facility] Medical Records Department [address] [place] [address] Discharge Summary 06/06/25 1604 MR#: [id number] Acct: [id number] Name: ANNE MARIE GARZA Rep #: [id number] : 1940 85 From: Massiel De La Cruz DO PCP: Dr. Max Rodriguez MD Status:ADM IN Location: [facility] [id number] Providers Date of Admission: 06/04/25 Date of Discharge: 06/06/25 Primary Care Physician: Dr. aMx Rodriguez MD Consultations 06/05/25 08:08 Consult: Infectious Disease Routine Consulting Provider: Mathew Cheema Reason for Consult: ESBL E. coli EMERGENT Consult: No MD Notified: Yes Date Notified: 06/05/25 Time Notified: 08:23 Method of Notification: Text Reason For Visit: GENERALIZED WEAKNESS, UTI, DYSPNEA ON EXERTION Diagnosis Discharge Diagnosis (1) Infection due to ESBL-producing Escherichia coli: Status: Acute Code(s): A49.8 - Other bacterial infections of unspecified site; Z16.12 - Extended spectrum beta lactamase (ESBL) resistance Medications at Discharge Home Medications aspirin 81 mg chewable tablet 81 mg PO DAILY@0800 heart health 05/07/20 rosuvastatin 5 mg tablet 5 mg PO DAILY cholesterol 05/07/20 omeprazole 40 mg capsule,delayed release 40 mg PO BID stomach 01/29/22 celecoxib 200 mg capsule (Celebrex) 200 mg PO BID mood 01/21/24 Held on 06/06/25. Instructions: I would recommend holding this while you are on blood thinners to prevent GI bleed duloxetine 30 mg capsule,delayed release 30 mg PO QDAY mood 03/22/25 metoprolol succinate 50 mg tablet,extended release 24 hr 50 mg PO DAILY heart #90 tabs 03/22/25 tramadol 50 mg tablet 50 mg PO Q12H Pain Score 1-10 03/22/25 valsartan 320 mg tablet 320 mg PO QDAY bp 03/22/25 Held on 06/06/25. Instructions: Until told to restart amlodipine 10 mg tablet 10 mg PO QDAY bp 05/30/25 Held on 06/06/25. Instructions: until told to restart levothyroxine 137 mcg tablet (Levoxyl) 137 mcg PO MOTUWETHFR thyroid 05/30/25 levothyroxine 137 mcg tablet (Synthroid) 68.5 mcg PO SA thyroid 05/30/25 amiodarone 200 mg tablet 200 mg PO DAILY #49 tabs 06/06/25 apixaban 5 mg tablet (Eliquis) 5 mg PO BID #60 tabs 06/06/25 Hospital Course Operations None Procedures - (Chest x-ray) Summary of Care Provided Minutes Spent on Discharge: 41 Hospital Course: Mrs. 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 The patient was being seen in the outpatient office and followed up by cardiology. They had altered her antihypertensive medicines due to low blood pressure. She followed up on the day of admission with a blood pressure of 80/50 and was told by the ball maker office to come to the emergency department for further evaluation. She was recently diagnosed with urinary tract infection and given antibiotics but antibiotics as an outpatient had been changed due to ESBL E. coli being found. Is unclear what antibiotic she was on for this. Patient does states she does get quite frequent UTIs and does not follow-up with urology. Patient denies dysuria but states her urine is frothy and she has had frequency. The patient was in the emergency department and after her treat with meropenem she was ambulating and felt dyspneic and was found to be mildly hypoxic. Given this she was admitted for treatment of her UTI with antibiotics and monitoring her oxygen levels. She did not require oxygen during hospitalization. ID was consulted given an ESBL organism and she was maintained on meropenem and received a total of 3 days treatment with a dose of ertapenem 1 g prior to discharge. This was under the direction of infectious disease. She was ambulating around the room without any dyspnea and all of a sudden developed dyspnea. On the monitor she was noted to be in A-fib with RVR having heart rates between 150 and 160. I highly suspect this is the etiology of her intermittent shortness of breath as an outpatient. She has had a fairly extensive workup from pulmonology and cardiology and never found to have any arrhythmias. In fact, she was scheduled for cardiac catheterization on the . She was given amiodarone bolus of 150 and converted back to normal sinus rhythm. We placed her on Eliquis 5 mg p.o. twice daily and explained the reason for this being her risk of stroke. Her GDM5AC3-XEVm 2 score is 5 giving her a 10% risk of stroke/TIA/systemic embolism per year. Her home beta-tracey was reinitiated and we continue to hold her valsartan and amlodipine. She was started on amiodarone oral and she will get 200 mg 3 times daily for 1 week then 200 mg 2 times daily x 1 week then 200 mg daily. Her TSH is within normal limits and liver functions were normal at the time of initiation of amiodarone. I did notify Dr. Rasmussen, her ball maker t (more content not included)...[facility]07-30-2025 Progress note Author Mathew Cheema [facility] Note Date/Time June 06, 2025 1:[address] [facility] Medical Records Department [address] [place] [address] Progress Note - Infect Disease 06/06/25 1331 MR#: [id number] Acct: [id number] Name: ANNE MARIE GARZA Rep #:[id number] : 1940 85 From: Mathew esparza MD PCP: Dr. Max Rodriguez MD Status:ADM IN Location: [place] [address] Physical Exam Narrative Feeling well, no fever, no abd pain, discharge planned Const alert and no apparent distress General Appearance: cooperative Resp normal air movement and clear to auscultation bilaterally Cardio regular rate and regular rhythm GI soft to palpation, non-tender and non-distended Skin no rashes or lesions noted ID ID: Route of nutrition/ use of supplements: [] Nutritional Intake: [] IV Site: [] Mayo Catheter: [] Assessment & Plan Assessment/Plan (1) Infection due to ESBL-producing Escherichia coli: PLAN: Comp uti due to esbl ecoli - ok for home after dose of ertapenem to complete short course will follow prn, d/w Dr. De La Cruz 06/06/25 1332 <Electronically signed by Mathew Cheema MD> Cosigner Signature (if applicable): CC: ~ Signed [facility] Work Phone: 1(899) 216-853407-30-2025 Hospital Discharge instructionsAdditional Instructions 1. I am going to have you follow-up with urology- Dr. Fuentes--> call next week to set up an appointment since you are having frequent urinary tract infections. [facility]: [facility] Work Phone: 1(668) 575-693207-30-2025 Progress note [facility] Medical Records Department [address] [place] [address] Progress Note - Infect Disease 06/06/25 1331 MR#: [id number] Acct: [id number] Name: ANNE MARIE GARZA Rep #:[id number] : 1940 85 From: Mathew esparza MD PCP: Dr. Max Rodriguez MD Status:ADM IN Location: [place] [address] Physical Exam Narrative Feeling well, no fever, no abd pain, discharge planned Const alert and no apparent distress General Appearance: cooperative Resp normal air movement and clear to auscultation bilaterally Cardio regular rate and regular rhythm GI soft to palpation, non-tender and non-distended Skin no rashes or lesions noted ID ID: Route of nutrition/ use of supplements: [] Nutritional Intake: [] IV Site: [] Mayo Catheter: [] Assessment & Plan Assessment/Plan (1) Infection due to ESBL-producing Escherichia coli: PLAN: Comp uti due to esbl ecoli - ok for home after dose of ertapenem to complete short course will follow prn, d/w Dr. De La Cruz 06/06/251331 Cosigner Signature (if applicable): CC: ~ Signed [facility]07-29-2025 Progress note Author Massiel De La Cruz [facility] Note Date/Time June 06, 2025 6:22 pm [facility] Medical Records Department [address] [address] Progress Note - Hospitalist 06/05/25 151 MR#: [id number] Acct: [id number] Name: ANNE MARIE GARZA Rep #:[id number] : 1940 85 From: Massiel De La Cruz DO PCP: Dr. Max Rodriguez MD Status:ADM IN Location: [place] [address] Hospitalist Note I did discuss CODE STATUS with the patient. She elected for DNR CCA okay for short-term intubation. Order was changed in the computer. 06/05/251518 <Electronically signed by Massiel Jono DO> Cosigner Signature (if applicable): CC: ~ Signed [facility] Work Phone: 1(461) 732-466507-29-2025 Progress note Author Massiel De La Cruz [facility] Note Date/Time June 05, 2025 3:13 pm [facility] Medical Records Department [address] [place] [address] Progress Note - Hospitalist 06/05/25 0808 MR#: [id number] Acct: [id number] Name: ANNE MARIE GARZA Rep #:[id number] : 1940 85 From: Massiel De La Cruz DO PCP: Dr. Max Rodriguez MD Status:ADM IN Location: [place] [address] Reason for Visit Chief Complaint: Hypotension, shortness of breath on exertion Subjective Subjective Patient's biggest complaint is her shortness of breath. She also was admitted for ESBL producing E. coli and generalized weakness. She has not yet been out of bed today. Antibiotics are appropriate at this time and awaiting ID input. Patient states she has had ongoing shortness of breath and has been seen by pulmonary medicine and cardiology. She does have an upcoming cardiac catheterization on 06/18/2025 to rule out coronary disease as all of her tests thus far have been unremarkable. She is stable on room air at this time. Objective Data Objective Data Vital Signs: Vital Signs Temp Pulse Resp BP Pulse Ox O2 Del Method 97.4 F L 72 18 124/70 H 95 Room Air 06/05/25 05:35 06/05/25 05:35 06/05/25 05:35 06/05/25 05:35 06/05/25 05:35 06/05/25 07:26 Oxygen Delivery Method Room Air Weight: 82.554 kg Body Mass Index (BMI) 31.2 Intake & Output: Intake and Output for Last 24 Hours 06/03/25 06/04/25 06/05/25 23:59 23:59 23:59 Intake Total 1000 / 1000 320 / 320 Output Total 0 / 0 Balance 1000 / 1000 320 / 320 Lab / Micro Data 06/05/25 05:40 06/05/25 05:40 Labs: Laboratory Results - last 24 hr 06/04/25 18:47: WBC 7.7, RBC 4.31, Hgb 11.8 L, Hct 37.0, MCV 85.8, MCH 27.4, MCHC 31.9 L, RDW Std Deviation 47.0 H, RDW Coeff of Kal 14.7 H, Plt Count 330, MPV 10.1, Immature Gran % (Auto) 0.400, Neut % (Auto) 60.1, Lymph % (Auto) 21.7,[place] % (Auto) 8.8, Eos % (Auto) 8.4 H, Baso % (Auto) 0.6, Absolute Neuts (auto) 4.7, Absolute Lymphs (auto) 1.68, Nucleated RBC % 0, PT 12.8, INR 0.9, APTT 28.5, Sodium 141, Potassium 4.1, Chloride 105, Carbon Dioxide 23.1, Anion Gap 12, BUN 27 H, Creatinine 1.34 H, Estim Creat Clear Calc 32.56 L, Est GFR (MDRD) Non-Af 39 L, BUN/Creatinine Ratio 20.1 H, Glucose 95, Lactic Acid 1.5, Calcium 8.8, Total Bilirubin 0.21, AST 24, ALT 26, Alkaline Phosphatase 94, Troponin T High Sens 17 H D, NT pro BNP II 1032, Total Protein 6.5, Albumin 3.5, Globulin 3.0, Albumin/Globulin Ratio 1.1 06/04/25 19:39: Urine Color Yellow, Urine Clarity Sl. Cloudy, Urine pH 6.0, Ur Specific [place] 1.025, Urine Protein 30 H, Urine Glucose (UA) Normal, Urine Ketones Negative, Urine Occult Blood 10 H, Urine Nitrite Negative, Urine Bilirubin Negative, Urine Urobilinogen 4 H, Ur Leukocyte Esterase 100 H, Urine RBC 0-5 SEEN, Urine WBC 10-25 SEEN, Ur Squamous Epith Cells 10-25 SEEN, Urine Bacteria 2+, Urine Mucus 0 SEEN 06/04/25 21:22: Troponin T Hi Sens 2 Hr 06/05/25 00:55: Troponin T Hi Sens 4Hr 06/05/25 05:40: WBC 7.2, RBC 4.01 L, Hgb 11.2 L, Hct 34.4 L, MCV 85.8, MCH 27.9,MCHC 32.6, RDW Std Deviation 46.1 H, RDW Coeff of Kal 14.6, Plt Count 295, MPV 10.0, Immature Gran % (Auto) 0.300, Neut % (Auto) 61.7, Lymph % (Auto) 21.5, [place] % (Auto) 8.2, Eos % (Auto) 7.9 H, Baso % (Auto) 0.4, Absolute Neuts (auto) 4.5, Absolute Lymphs (auto) 1.55, Nucleated RBC % 0, Sodium 141, Potassium 3.8, Chloride 107, Carbon Dioxide 23.5, Anion Gap 11, BUN 22 H, Creatinine 1.07, Estim Creat Clear Calc 40.68 L, Est GFR (MDRD) Non-Af 51 L, BUN/Creatinine Ratio 20.4 H, Glucose 81, Calcium 8.5, TSH 4.030 Radiography Diagnostic Testing: Radiology Impression Chest X-Ray 06/04/25 19:09 IMPRESSION: Moderate emphysema. No focal consolidation or pleural effusion. Reading Location: [facility] Physical Exam Const alert, oriented x3, no apparent distress and well nourished Constitutional Narrative: Obese, elderly, white female, lying in bed, appears comfortable, does not look toxic HEENT head/scalp atraumatic and moist oral mucous membranes HEENT Narrative: Mallampati 2, no thrush Head and Scalp: normocephalic Resp normal respiratory effort, no retractions, no use of accessory muscles and clearto auscultation bilaterally Auscultation: Negative for crackles, rhonchi or wheezes Cardio regular rate, regular rhythm, S1 normal heart sound, S2 normal heart sound, no murmurs, no rub, no gallops and no clicks GI normal to inspection, nondistended, normoactive bowel sounds, soft to palpation and non-tender Extremity no clubbing, cyanosis or edema Extremity Narrative: Pedal and radial pulses are 2+ Neuro oriented x3, moves all extremities and no focal motor deficits Speech: speech normal Psych affect normal Psych Narrative: Very pleasant, interacts appropriately, makes good eye contact Assessment & Plan Assessment/Plan (1) Infection due to ESBL-producing Escherichia coli: (2) Generalized weakness: (3) Dyspnea on exertion: PLAN: Plan ESBL E. coli UTI - Patient currently on meropenem - Consult ID for assistance with discharge antibiotics Generalized weakness -Consult physical therapy for assessment - Patient is independent in bed mobility Dyspnea on exertion - Per discussion with patient she is followed up with both pulmonary medicine and cardiology - Pulmonary workup was unremarkable - Had a negative stress test on 01/30/2025 - Echocardiogram was performed and unremarkable - Plan is for cardiac catheterization which has been scheduled for 06/18/2025 -Patient without any chest pain-or other symptoms concerning for acutely worsening disease so okay to continue with outpatient follow-up CAD/essential hypertension/hyperlipidemia - PCI-BMS-Mid RCA w/ 3.0 x 15 mm Vision Stent 01/21/2010; PCI-MARCOS-Mid LCx w/ 2.25 x 28 mm Synergy 12/21/2019 - Continue home amlodipine - Continue home rosuvastatin - Valsartan and metoprolol are on hold currently per cardiology as her blood pressure was low at her last cardiology visit on 05/30/2025 - Will reevaluate while she is hospitalized and consider reinitiation if elevated - Continue home aspirin Hypothyroidism - Continue home levothyroxine COPD - Continue outpatient pulmonary medicine follow-up - Is not on oxygen chronically and not on any inhalers - Emphysematous changes on chest x-ray - Patient with remote history of tobacco abuse GERD - Continue PPI Depression - Continue home duloxetine B12 deficiency - Continue outpatient follow-up with primary care physician Osteoarthritis - Continue Celebrex - Would recommend holding close 2 cardiac catheterization Obesity - BMI 31.2 - Recommend weight loss - Complicates treatment, prognosis, outcomes DVT prophylaxis - Start enoxaparin 40 daily CODE STATUS - DNR CCA okay for short-term intubation per discussion with patient Charges/Coding Visit Charges Inpatient E&M: 71722 Subs Hosp L2 06/05/25 1513 <Electronically signed by Massiel De La Cruz DO> Cosigner Signature (if applicable): CC: ~ Signed [facility] Work Phone: 1(783) 500-666207-29-2025 Progress note [facility] Medical Records Department [address] [place] [address] Progress Note - Hospitalist 06/05/25 0808 MR#: [id number] Acct: [id number] Name: ANNE MARIE GARZA Rep #:[id number] : 1940 85 From: Massiel De La Cruz DO PCP: Dr. Max Rodriguez MD Status:ADM IN Location: [place] [address]- 1 Reason for Visit Chief Complaint: Hypotension, shortness of breath on exertion Subjective Subjective Patient's biggest complaint is her shortness of breath. She also was admitted for ESBL producing E.coli and generalized weakness. She has not yet been out of bed today. Antibiotics are appropriate at this time and awaiting ID input. Patient states she has had ongoing shortness of breath and has been seen by pulmonary medicine and cardiology. She does have an upcoming cardiac catheterization on 06/18/2025 to rule out coronary disease as all of her tests thus far have been unremarkable. She is stable on room air at this time. Objective Data Objective Data Vital Signs: Vital Signs Temp Pulse Resp BP Pulse Ox O2 Del Method 97.4 F L 72 18 124/70 H 95 Room Air 06/05/25 05:35 06/05/25 05:35 06/05/25 05:35 06/05/25 05:35 06/05/25 05:35 06/05/25 07:26 Oxygen Delivery Method Room Air Weight: 82.554 kg Body Mass Index (BMI) 31.2 Intake & Output: Intake and Output for Last 24 Hours 06/03/25 06/04/25 06/05/25 23:59 23:59 23:59 Intake Total 1000 / 1000 320 / 320 Output Total 0 / 0 Balance 1000 / 1000 320 / 320 Lab / Micro Data 06/05/25 05:40 06/05/25 05:40 Labs: Laboratory Results - last 24 hr 06/04/25 18:47: WBC 7.7, RBC 4.31, Hgb 11.8 L, Hct 37.0, MCV 85.8, MCH 27.4, MCHC 31.9 L, RDW Std Deviation 47.0 H, RDW Coeff of Kal 14.7 H, Plt Count 330, MPV 10.1, Immature Gran % (Auto) 0.400, Neut % (Auto) 60.1, Lymph % (Auto) 21.7,[place] % (Auto) 8.8, Eos % (Auto) 8.4 H, Baso % (Auto) 0.6, Absolute Neuts (auto) 4.7, Absolute Lymphs (auto) 1.68, Nucleated RBC % 0, PT 12.8, INR 0.9, APTT 28.5, Sodium 141, Potassium 4.1, Chloride 105, Carbon Dioxide 23.1, Anion Gap 12, BUN 27 H, Creatinine 1.34H, Estim Creat Clear Calc 32.56 L, Est GFR (MDRD) Non-Af 39 L, BUN/Creatinine Ratio 20.1 H, [id number], Lactic Acid 1.5, Calcium 8.8, Total Bilirubin 0.21, AST 24, ALT 26, Alkaline Phosphatase 94, Tro ponin T High Sens 17 H D, NT pro BNP II 1032, Total Protein 6.5, Albumin 3.5, Globulin 3.0, Albumin/Globulin Ratio 1.1 06/04/25 19:39: Urine Color Yellow, Urine Clarity Sl. Cloudy, Urine pH 6.0, Ur Specific [place] 1.025, Urine Protein 30 H, Urine Glucose (UA) Normal, Urine Ketones Negative, Urine Occult Blood 10 H, Urine Nitrite Negative, Urine Bilirubin Negative, Urine Urobilinogen 4 H, Ur Leukocyte Esterase 100 H, Urine RBC 0-5 SEEN, Urine WBC 10-25 SEEN, Ur Squamous Epith Cells 10-25 SEEN, Urine Bacteria 2+, Urine Mucus 0 SEEN 06/04/25 21:22: Troponin T Hi Sens 2 Hr 14 06/05/25 00:55: Troponin T Hi Sens 4Hr 14 06/05/25 05:40: WBC 7.2, RBC 4.01 L, Hgb 11.2 L, Hct 34.4 L, MCV 85.8, MCH 27.9,MCHC 32.6, RDW Std Deviation 46.1 H, RDW Coeff of Kal 14.6, Plt Count 295, MPV 10.0, Immature Gran % (Auto) 0.300, Neut% (Auto) 61.7, Lymph % (Auto) 21.5, [place] % (Auto) 8.2, Eos % (Auto) 7.9 H, Baso % (Auto) 0.4, Absolute Neuts (auto) 4.5, Absolute Lymphs (auto) 1.55, Nucleated RBC % 0, Sodium 141, Potassium 3.8, Chloride 107, Carbon Dioxide 23.5, Anion Gap 11, BUN 22 H, Creatinine 1.07, Estim Creat Clear Calc 40.68 L, Est GFR (MDRD) Non-Af 51 L, BUN/Creatinine Ratio 20.4 H, Glucose 81, Calcium 8.5, TSH 4.030 Radiography Diagnostic Testing: Radiology Impression Chest X-Ray 06/04/25 19:09 IMPRESSION: Moderate emphysema. No focal consolidation or pleural effusion. Reading Location: [facility] Physical Exam Const alert, oriented x3, no apparent distress and well nourished Constitutional Narrative: Obese, elderly, white female, lying in bed, appears comfortable, does not look toxic HEENT head/scalp atraumatic and moist oral mucous membranes HEENT Narrative: Mallampati 2, no thrush Head and Scalp: normocephalic Resp normal respiratory effort, no retractions, no use of accessory muscles and clearto auscultation bilaterally Auscultation: Negative for crackles, rhonchi or wheezes Cardio regular rate, regular rhythm, S1 normal heart sound, S2 normal heart sound, no murmurs, no rub, no gallops and no clicks GI normal to inspection, nondistended, normoactive bowel sounds, soft to palpation and non-tender Extremity no clubbing, cyanosis or edema Extremity Narrative: Pedal and radial pulses are 2+ Neuro oriented x3, moves all extremities and no focal motor deficits Speech: speech normal Psych affect normal Psych Narrative: Very pleasant, interacts appropriately, makes good eye contact Assessment & Plan Assessment/Plan (1) Infection due to ESBL-producing Escherichia coli: (2) Generalized weakness: (3) Dyspnea on exertion: PLAN: Plan ESBL E. coli UTI - Patient currently on meropenem - Consult ID for assistance with discharge antibiotics Generalized weakness -Consult physical therapy for assessment - Patient is independent in bed mobility Dyspnea on exertion - Per discussion with patient she is followed up with both pulmonary medicine and cardiology - Pulmonary workup was unremarkable - Had a negative stress test on 01/30/2025 - Echocardiogram was performed and unremarkable - Plan is for cardiac catheterization which has been scheduled for 06/18/2025 -Patient without any chest pain-or other symptoms concerning for acutely worsening disease so okay to continue with outpatient follow-up CAD/essential hypertension/hyperlipidemia - PCI-BMS-Mid RCA w/ 3.0 x 15 mm Vision Stent 01/21/2010; PCI-MARCOS-Mid LCx w/ 2.25 x 28 mm Synergy 12/21/2019 - Continue home amlodipine - Continue home rosuvastatin - Valsartan and metoprolol are on hold currently per cardiology as her blood pressure was low at her last cardiology visit on 05/30/2025 - Will reevaluate while she is hospitalized and consider reinitiation if elevated - Continue home aspirin Hypothyroidism - Continue home levothyroxine COPD - Continue outpatient pulmonary medicine follow-up - Is not on oxygen chronically and not on any inhalers - Emphysematous changes on chest x-ray - Patient with remote history of tobacco abuse GERD - Continue PPI Depression - Continue home duloxetine B12 deficiency - Continue outpatient follow-up with primary care physician Osteoarthritis - Continue Celebrex - Would recommend holding close 2 cardiac catheterization Obesity - BMI 31.2 - Recommend weight loss - Complicates treatment, prognosis, outcomes DVT prophylaxis - Start enoxaparin 40 daily CODE STATUS - DNR CCA okay for short-term intubation per discussion with patient Charges/Coding Visit Charges Inpatient E&M: 83278 Subs Hosp L2 06/05/25 1510 Cosigner Signature (if applicable): CC: ~ Signed [facility]07-29-2025 Consult note Author Mathew Cheema [facility] Note Date/Time June 05, 2025 10:[address] [place] [address] [facility] Medical Records Department [address] [place] [address] Consultation - Infectious Dx 06/05/25 1011 MR#: [id number] Acct: [id number] Name: ANNE MARIE GARZA Rep #:[id number] : 1940 85 From: Mathew esparza MD PCP: Dr. Max Rodriguez MD Status:ADM IN Location: [place] [address] Assessment & Plan Assessment/Plan (1) Infection due to ESBL-producing Escherichia coli: PLAN: Comp uti due to esbl ecoli - on pao, will continue will follow, thank you HPI Consult Data Date of Consult: 06/05/25 HPI Narrative Reason for Consultation: uti HPI Narrative: ANNE MARIE GARZA, is a 85 F with h/o COPD, CHF, MATT, reports 6 months of dyspnea with unrevealing cardiac/pulm workup. Recently dx with uti, started on po abx, had new hypotension and sent to ED. Now on meropenem, feeling about the same. Denies dysuria, no abd pain. Had some frothy urine recently per admitting documentation. Full ROS performed and neg except as noted above. [facility] Medical History History of ESBL E. coli infection Trigger middle finger of left hand Tobacco abuse Personal history of colonic polyps Osteoarthritis Heart attack Graves disease COPD (chronic obstructive pulmonary disease) CAD (coronary artery disease) Left ventricular diastolic dysfunction Chronic diastolic (congestive) heart failure Nicotine dependence Atherosclerosis of coronary artery of [place] heart without angina pectoris History of non-ST elevation myocardial infarction (NSTEMI) (12/21/19) Vertigo Essential hypertension Hypothyroidism Anxiety and depression MATT (obstructive sleep apnea) Obesity HLD (hyperlipidemia) Home Medications ?Medication ?Instructions ?Recorded ?Last Taken ?Type aspirin 81 mg chewable tablet 81 mg PO DAILY@0800 hear t health 05/07/20 05/06/20 History rosuvastatin 5 mg tablet 5 mg PO DAILY cholesterol 05/06/20 History omeprazole 40 mg capsule,delayed 40 mg PO BID stomach 01/29/22 Unknown History release celecoxib 200 mg capsule (Celebrex) 200 mg PO BID mood 01/21/24 Unknown History duloxetine 30 mg capsule,delayed 30 mg PO QDAY mood Unknown History release metoprolol succinate 50 mg 50 mg PO DAILY heart #90 ta bs 03/22/25 Unknown Rx tablet,extended release 24 hr Held on 06/04/25. Instructions: MD Ordered tramadol 50 mg tablet 50 mg PO Q12H Pain Score 1-1 0 03/22/25 Unknown History valsartan 320 mg tablet 320 mg PO QDAY bp 03/22/25 U nknown History Held on 06/04/25. Instructions: MD Ordered amlodipine 10 mg tablet 10 mg PO QDAY bp 05/30/25 Un known History Held on 06/04/25. Instructions: MD Ordered levothyroxine 137 mcg tablet 137 mcg PO MOTUWETHFR thy roid 05/30/25 Unknown History (Levoxyl) levothyroxine 137 mcg tablet 68.5 mcg PO SA thyroid Unknown History (Synthroid) Allergy/AdvReac Type Severity Reaction Status Date / Time iodine Allergy Severe Angioedema Verified 06/04/25 18:18 guaifenesin (From Mucinex) Allergy Mild Other Verified 06/04/25 18:18 ticagrelor (From Brilinta) AdvReac Severe Shortness Verified 06/04/25 18:18 of breath varenicline (From Chantix) AdvReac Severe Other Verified 06/04/25 18:18 Family History Father CAD (coronary artery disease) Prostate cancer Brother Alzheimer's disease Daughter Breast cancer Daughter Breast cancer Surgical History History of coronary artery stent placement (12/21/19) Social History Smoking Status: Former smoker Tobacco: How many years used: 45 Electronic Cigarette Use: with nicotine and not used how long ago did patient quit smokin10/2023 second hand exposure: No alcohol intake: current alcohol intake frequency: a few times a week substance use type: does not use Physical Exam Const alert and no apparent distress General Appearance: cooperative HEENT normocephalic and head/scalp atraumatic Eyes PERRL and EOMs intact bilaterally Neck supple and No nodes Resp normal air movement Auscultation: wheezes Cardio regular rate and regular rhythm GI soft to palpation, non-tender and non-distended Extremity General Extremity: Negative for edema Skin no rashes or lesions noted Neuro CN's II-XII intact bilaterally Lab / Micro Data Attestation: I reviewed the patient's lab results. 06/05/25 05:40 06/05/25 05:40 Labs: Laboratory Results - last 24 hr 06/04/25 18:47: WBC 7.7, RBC 4.31, Hgb 11.8 L, Hct 37.0, MCV 85.8, MCH 27.4, MCHC 31.9 L, RDW Std Deviation 47.0 H, RDW Coeff of Kal 14.7 H, Plt Count 330, MPV 10.1, Immature Gran % (Auto) 0.400, Neut % (Auto) 60.1, Lymph % (Auto) 21.7,[place] % (Auto) 8.8, Eos % (Auto) 8.4 H, Baso % (Auto) 0.6, Absolute Neuts (auto) 4.7, Absolute Lymphs (auto) 1.68, Nucleated RBC % 0, PT 12.8, INR 0.9, APTT 28.5, Sodium 141, Potassium 4.1, Chloride 105, Carbon Dioxide 23.1, Anion Gap 12, BUN 27 H, Creatinine 1.34 H, Estim Creat Clear Calc 32.56 L, Est GFR (MDRD) Non-Af 39 L, BUN/Creatinine Ratio 20.1 H, Glucose 95, Lactic Acid 1.5, Calcium 8.8, Total Bilirubin 0.21, AST 24, ALT 26, Alkaline Phosphatase 94, Troponin T High Sens 17 H D, NT pro BNP II 1032, Total Protein 6.5, Albumin 3.5, Globulin 3.0, Albumin/Globulin Ratio 1.1 06/04/25 19:39: Urine Color Yellow, Urine Clarity Sl. Cloudy, Urine pH 6.0, Ur Specific [place] 1.025, Urine Protein 30 H, Urine Glucose (UA) Normal, Urine Ketones Negative, Urine Occult Blood 10 H, Urine Nitrite Negative, Urine Bilirubin Negative, Urine Urobilinogen 4 H, Ur Leukocyte Esterase 100 H, Urine RBC 0-5 SEEN, Urine WBC 10-25 SEEN, Ur Squamous Epith Cells 10-25 SEEN, Urine Bacteria 2+, Urine Mucus 0 SEEN 06/04/25 21:22: Troponin T Hi Sens 2 Hr 14 06/05/25 00:55: Troponin T Hi Sens 4Hr 06/05/25 05:40: WBC 7.2, RBC 4.01 L, Hgb 11.2 L, Hct 34.4 L, MCV 85.8, MCH 27.9,MCHC 32.6, RDW Std Deviation 46.1 H, RDW Coeff of Kal 14.6, Plt Count 295, MPV 10.0, Immature Gran % (Auto) 0.300, Neut % (Auto) 61.7, Lymph % (Auto) 21.5, [place] % (Auto) 8.2, Eos % (Auto) 7.9 H, Baso % (Auto) 0.4, Absolute Neuts (auto) 4.5, Absolute Lymphs (auto) 1.55, Nucleated RBC % 0, Sodium 141, Potassium 3.8, Chloride 107, Carbon Dioxide 23.5, Anion Gap 11, BUN 22 H, Creatinine 1.07, Estim Creat Clear Calc 40.68 L, Est GFR (MDRD) Non-Af 51 L, BUN/Creatinine Ratio 20.4 H, Glucose 81, Calcium 8.5, TSH 4.030 Imaging Radiology Impression Chest X-Ray 06/04/25 19:09 IMPRESSION: Moderate emphysema. No focal consolidation or pleural effusion. Reading Location: [id number] 06/05/25 1014 <Electronically signed by Mathew Cheema MD> Cosigner Signature (if applicable): CC: Dr. Max Rodriguez MD~ Signed [facility] Work Phone: [phone]) 203-963307-29-2025 NoteHNO ID: [id number] Author: ?, ?, ? Service: ? Author Type: ? Type: Progress Notes Filed: 06/05/2025 10:55 Note Text: Patient is identified through a medication adherence outreach initiative based on pharmacy claims data from: [facility] Medication Adherence Category: Statins Second Attempt Medication(s) Rosuvastatin 5 mg Medication Status per portal/Epic Reconcile Dispense: Filled late - Greater than 7 days after next fill date Date Filled (MM/DD): 06/05 Day Supply: 90 Medication Status per Profile Review: No issues per profile review Patient identified by name and Outreach to patient: No outreach required, patient filled medication [facility] History of Present illness Narrative* Sia Simons - 06/05/2025 10:54 AM EDT Patient is identified through a medication adherence outreach initiative based on pharmacy claims data from: [place] Medication Adherence Category: Statins Second Attempt Medication(s) Rosuvastatin 5 mg Medication Status per portal/Epic Reconcile Dispense: Filled late - Greater than 7 days after next fill date Date Filled (MM/DD): 06/05 Day Supply: 90 Medication Status per Profile Review: No issues per profile review Patient identified by name and Outreach to patient: No outreach required, patient filled medication Sia Simons [facility] Based Care Pharmacy Team documented in this encounterC[facility]07-29-2025 Consult note [facility] Medical Records Department [address] [place] [address] Consultation - Infectious Dx 06/05/25 1011 MR#: [id number] Acct: [id number] Name: ANNE MARIE GARZA Rep #:[id number] : 1940 85 From: Mathew esparza MD PCP: Dr. Max Rodriguez MD Status:ADM IN Location: [place] [address] Assessment & Plan Assessment/Plan (1) Infection due to ESBL-producing Escherichia coli: PLAN: Comp uti due to esbl ecoli - on pao, will continue will follow, thank you HPI Consult Data Date of Consult: 06/05/25 HPI Narrative Reason for Consultation: uti HPI Narrative: ANNE MARIE GARZA, is a 85 F with h/o COPD, CHF, MATT, reports 6 months of dyspnea with unrevealing cardiac/pulm workup. Recently dx with uti, started on po abx, had new hypotension and sent to ED. Now onmeropenem, feeling about the same. Denies dysuria, no abd pain. Had some frothy urine recently per admitting documentation. Full ROS performed and neg except as noted above. [facility] Medical History History of ESBL E. coli infection Trigger middle finger of left hand Tobacco abuse Personal history of colonic polyps Osteoarthritis Heart attack Graves disease COPD (chronic obstructive pulmonary disease) CAD (coronary artery disease) Left ventricular diastolic dysfunction Chronic diastolic (congestive) heart failure Nicotine dependence Atherosclerosis of coronary artery of [place] heart without angina pectoris History of non-ST elevation myocardial infarction (NSTEMI) (12/21/19) Vertigo Essential hypertension Hypothyroidism Anxiety and depression MATT (obstructive sleep apnea) Obesity HLD (hyperlipidemia) Home Medications ?Medication ?Instructions ?Recorded ?Last Taken ?Type aspirin 81 mg chewable tablet 81 mg PO DAILY@0800 hear t health 05/07/20 05/06/20 History rosuvastatin 5 mg tablet 5 mg PO DAILY cholesterol 05/06/20 History omeprazole 40 mg capsule,delayed 40 mg PO BID stomach 01/29/22 Unknown History release celecoxib 200 mg capsule (Celebrex) 200 mg PO BID mood 01/21/24 Unknown History duloxetine 30 mg capsule,delayed 30 mg PO QDAY mood Unknown History release metoprolol succinate 50 mg 50 mg PO DAILY heart #90 ta bs 03/22/25 Unknown Rx tablet,extended release 24 hr Held on 06/04/25. Instructions: MD Ordered tramadol 50 mg tablet 50 mg PO Q12H Pain Score 1-1 0 03/22/25 Unknown History valsartan 320 mg tablet 320 mg PO QDAY bp 03/22/25 U nknown History Held on 06/04/25. Instructions: MD Ordered amlodipine 10 mg tablet 10 mg PO QDAY bp 05/30/25 Un known History Held on 06/04/25. Instructions: MD Ordered levothyroxine 137 mcg tablet 137 mcg PO MOTUWETHFR thy roid 05/30/25 Unknown History (Levoxyl) levothyroxine 137 mcg tablet 68.5 mcg PO SA thyroid Unknown History (Synthroid) Allergy/AdvReac Type Severity Reaction Status Date / Time iodine Allergy Severe Angioedema Verified 06/04/25 18:18 guaifenesin (From Mucinex) Allergy Mild Other Verified 06/04/25 18:18 ticagrelor (From Brilinta) AdvReac Severe Shortness Verified 06/04/25 18:18 of breath varenicline (From Chantix) AdvReac Severe Other Verified 06/04/25 18:18 Family History Father CAD (coronary artery disease) Prostate cancer Brother Alzheimer's disease Daughter Breast cancer Daughter Breast cancer Surgical History History of coronary artery stent placement (12/21/19) Social History Smoking Status: Former smoker Tobacco: How many years used: 45 Electronic Cigarette Use: with nicotine and not used how long ago did patient quit smokin10/2023 second hand exposure: No alcohol intake: current alcohol intake frequency: a few times a week substance use type: does not use Physical Exam Const alert and no apparent distress General Appearance: cooperative HEENT normocephalic and head/scalp atraumatic Eyes PERRL and EOMs intact bilaterally Neck supple and No nodes Resp normal air movement Auscultation: wheezes Cardio regular rate and regular rhythm GI soft to palpation, non-tender and non-distended Extremity General Extremity: Negative for edema Skin no rashes or lesions noted Neuro CN's II-XII intact bilaterally Lab / Micro Data Attestation: I reviewed the patient's lab results. 06/05/25 05:40 06/05/25 05:40 Labs: Laboratory Results - last 24 hr 06/04/25 18:47: WBC 7.7, RBC 4.31, Hgb 11.8 L, Hct 37.0, MCV 85.8, MCH 27.4, MCHC 31.9 L, RDW Std Deviation 47.0 H, RDW Coeff of Kal 14.7 H, Plt Count 330, MPV 10.1, Immature Gran % (Auto) 0.400, Neut % (Auto) 60.1, Lymph % (Auto) 21.7,[place] % (Auto) 8.8, Eos % (Auto) 8.4 H, Baso % (Auto) 0.6, Absolute Neuts (auto) 4.7, Absolute Lymphs (auto) 1.68, Nucleated RBC % 0, PT 12.8, INR 0.9, APTT 28.5, Sodium 141, Potassium 4.1, Chloride 105, Carbon Dioxide 23.1, Anion Gap 12, BUN 27 H, Creatinine 1.34H, Estim Creat Clear Calc 32.56 L, Est GFR (MDRD) Non-Af 39 L, BUN/Creatinine Ratio 20.1 H, [id number], Lactic Acid 1.5, Calcium 8.8, Total Bilirubin 0.21, AST 24, ALT 26, Alkaline Phosphatase 94, Tro ponin T High Sens 17 H D, NT pro BNP II 1032, Total Protein 6.5, Albumin 3.5, Globulin 3.0, Albumin/Globulin Ratio 1.1 06/04/25 19:39: Urine Color Yellow, Urine Clarity Sl. Cloudy, Urine pH 6.0, Ur Specific [place] 1.025, Urine Protein 30 H, Urine Glucose (UA) Normal, Urine Ketones Negative, Urine Occult Blood 10 H, Urine Nitrite Negative, Urine Bilirubin Negative, Urine Urobilinogen 4 H, Ur Leukocyte Esterase 100 H, Urine RBC 0-5 SEEN, Urine WBC 10-25 SEEN, Ur Squamous Epith Cells 10-25 SEEN, Urine Bacteria 2+, Urine Mucus 0 SEEN 06/04/25 21:22: Troponin T Hi Sens 2 Hr 14 06/05/25 00:55: Troponin T Hi Sens 4Hr 14 06/05/25 05:40: WBC 7.2, RBC 4.01 L, Hgb 11.2 L, Hct 34.4 L, MCV 85.8, MCH 27.9,MCHC 32.6, RDW Std Deviation 46.1 H, RDW Coeff of Kal 14.6, Plt Count 295, MPV 10.0, Immature Gran % (Auto) 0.300, Neut% (Auto) 61.7, Lymph % (Auto) 21.5, [place] % (Auto) 8.2, Eos % (Auto) 7.9 H, Baso % (Auto) 0.4, Absolute Neuts (auto) 4.5, Absolute Lymphs (auto) 1.55, Nucleated RBC % 0, Sodium 141, Potassium 3.8, Chloride 107, Carbon Dioxide 23.5, Anion Gap 11, BUN 22 H, Creatinine 1.07, Estim Creat Clear Calc 40.68 L, Est GFR (MDRD) Non-Af 51 L, BUN/Creatinine Ratio 20.4 H, Glucose 81, Calcium 8.5, TSH 4.030 Imaging Radiology Impression Chest X-Ray 06/04/25 19:09 IMPRESSION: Moderate emphysema. No focal consolidation or pleural effusion. Reading Location: [facility] 06/05/25 [facility] Cosigner Signature (if applicable): CC: Dr. Max Rodriguez MD~ Signed [facility]07-29-2025 NoteHNO ID: [id number] Author: EILEEN DEGROOT MA Service: ? Author Type: LICENSED NURSE Type: Progress Notes Filed: 06/07/2025 12:40 Note Text: [facility] Admission 06/04/25. Scan on 2025 9:50 PM by Gaudencio Castro PA-C: Consultation - Emergency Medicine Scan on 2025 10:00 PM by Gaudencio Castro PA-C Scan on 06/05/2025 10:37 AM by Gaudencio Castro PA-C: Infection Disease [facility] Scan on 06/06/2025 4:44 PM by Gaudencio Castro PA-C: [facility] discharge summary [facility]07-29-2025 History of Present illness Narrative* Orly Richardson LPN - 06/05/2025 7:27 AM EDT Scan on 2025 9:50 PM by ProviderGaudencio PA-C: Consultation - Emergency Medicine Scan on 2025 10:00 PM by ProviderGaudencio PA-C documented in this encounterC[facility] Clinic Foundation07-29-2025 NotePatient Outreach (PHPOHE) ANNE MARIE GARZA ([id number]) 1940 F Date Time Provider Department 06/05/25 MAX RODRIGUEZ PHPOHE During your visit today, we recorded the following information about you: Sia Simons 06/05/2025 10:55 AM Signed Patient is identified through a medication adherence outreach initiative based on pharmacy claims data from: [facility] Medication Adherence Category: Statins Second Attempt Medication(s) Rosuvastatin 5 mg Medication Status per portal/Epic Reconcile Dispense: Filled late - Greater than 7 days after next fill date Date Filled (MM/DD): 06/05 Day Supply: 90 Medication Status per Profile Review: No issues per profile review Patient identified by name and Outreach to patient: No outreach required, patient filled medication Sia Simons [facility] Based Care Pharmacy Team Allergies As of Date: 06/05/2025 Noted Allergy Reaction IODINE 01/19/2010 10 - [...] to feel jittery all over Date Reviewed: 05/21/2025 Reviewed by: Max Rodriguez MD - Fully Assessed Reason for Visit: Allied Health Visit [5] Cmt: Medication adherence outreach Prescriptions as of 06/05/2025 - celecoxib (CELEBREX) 200 mg capsule Take 1 capsule by mouth two times a day. - traMADol (ULTRAM) 50 mg tablet Take 1 tablet by mouth every 8 hours as needed for pain for up to 90 days. - amLODIPine (NORVASC) 10 mg tablet Take 1 tablet by mouth once daily. Increased by [facility] 03/2025 for SOB - metoprolol succinate ER (TOPROL XL) 50 mg 24 hr tablet Take 1 tablet by mouth once daily. Decreased by [facility] 03/2025 due to SOB - DULoxetine (CYMBALTA) 30 mg capsule Take 1 capsule by mouth once daily. In place of the Citaloram - levothyroxine (LEVOXYL) 137 mcg tablet Take one tab by mouth once a day Wed-Wed, 1/2 on Wed and none on Wednesday. Take on empty stomach. For Thyroid. - omeprazole (PRILOSEC) 40 mg capsule Take 1 capsule by mouth two times a day. - rosuvastatin (CRESTOR) 5 mg tablet Take 1 tablet by mouth once daily. - valsartan (DIOVAN) 320 mg tablet Take 1 tablet by mouth once daily. - albuterol HFA (PROVENTIL HFA, VENTOLIN HFA) 90 mcg/actuation inhaler Inhale 2 Puffs as instructed every 4 hours as needed. - fluticasone-salmeterol (WIXELA INHUB) 250-50 mcg/dose inhaler Inhale 1 Puff as instructed two times a day. - nitroglycerin sublingual [...] once daily. Problem List As Of Date 06/05/2025 Noted Resolved SUMMARY [V999.95] 01/19/2010 11/04/2011 History [...] cyst [L72.0] 09/09/2019 Personal history of colonic poly (more content not included)...[facility]07-28-2025 History and physical note Author Antonio Daly [facility] Note Date/Time 2025 9:53 pm [facility] Medical Records Department [address] [place] [address] History & Physical Exam 06/04/252144 MR#: [id number] Acct: [id number] Name: ANNE MARIE GARZA Rep #:[id number] : 1940 85 From: Antonio Daly MD PCP: Dr. Max Rodriguez MD Status:REG ER Location: ED HPI - General General Date of Admission: 06/04/25 Date of Service: 06/04/25 Chief Complaint: Hypotension, shortness of breath on exertion HPI Narrative ANNE MARIE GARZA, is a 85 F who presents to the emergency room with chief complaintof hypotension. Patient was seen as an outpatient and followed up by cardiologylast and was told to hold her antihypertensive medications due to low blood pressure. Today she reported a blood pressure of 80/50 and was told by her ball maker to report to the emergency room for evaluation. Patient has been diagnosed with urinary tract infection and antibiotics have been changed due to ESBL diagnosis. Patient denies any dysuria but states her urine is frothy. Patient is scheduled to have a heart catheterization on June 18 due to increasing exertional shortness of breath and angina-like symptoms. Today inthe emergency room after treatment with meropenem patient was ambulating and felt dyspneic and hypoxic. She will be admitted and treated for IV antibiotics of urinary tract infection. Will continue to hold antihypertensive medications although her blood pressure is elevated at the time of my evaluation. Patient denies any chest pain, shortness of breath at rest and/or fevers or chills at present time. Patient has had some nausea and vomiting earlier today. [facility] Medical History History of ESBL E. coli infection Trigger middle finger of left hand Tobacco abuse Personal history of colonic polyps Osteoarthritis Heart attack Graves disease COPD (chronic obstructive pulmonary disease) CAD (coronary artery disease) Left ventricular diastolic dysfunction Chronic diastolic (congestive) heart failure Nicotine dependence Atherosclerosis of coronary artery of [place] heart without angina pectoris History of non-ST elevation myocardial infarction (NSTEMI) (12/21/19) Vertigo Essential hypertension Hypothyroidism Anxiety and depression MATT (obstructive sleep apnea) Obesity HLD (hyperlipidemia) Home Medications ?Medication ?Instructions ?Recorded ?Last Taken ?Type aspirin 81 mg chewable tablet 81 mg PO DAILY@0800 hear t health 05/07/20 05/06/20 History rosuvastatin 5 mg tablet 5 mg PO DAILY cholesterol 05/06/20 History omeprazole 40 mg capsule,delayed 40 mg PO BID 01/29/22 Unknown History release celecoxib 200 mg capsule (Celebrex) 200 mg PO BID 01/06 03/31 Unknown History duloxetine 30 mg capsule,delayed 30 mg PO QDAY 5 Unknown History release metoprolol succinate 50 mg 50 mg PO DAILY heart #90 ta bs 03/22/25 Unknown Rx tablet,extended release 24 hr tramadol 50 mg tablet 50 mg PO Q12H Pain Score 1-1 0 03/22/25 Unknown History valsartan 320 mg tablet 320 mg PO QDAY 03/22/25 Unkn own History nitrofurantoin 100 mg PO Q12 #10 CAPSULES 0 05/29/25 Unknown Rx monohydrate/macrocrystals 100 mg capsule albuterol sulfate 90 mcg/actuation 2 puff inhalation Q 4H PRN 05/30/25 Unknown History aerosol inhaler amlodipine 10 mg tablet 10 mg PO QDAY 05/30/25 Unkno wn History levothyroxine 137 mcg tablet 137 mcg PO MOTUWETHFR Unknown History (Levoxyl) levothyroxine 137 mcg tablet 68.5 mcg PO SA 05/30/25 U nknown History (Synthroid) Allergy/AdvReac Type Severity Reaction Status Date / Time iodine Allergy Severe Angioedema Verified 06/04/25 18:18 guaifenesin (From Mucinex) Allergy Mild Other Verified 06/04/25 18:18 ticagrelor (From Brilinta) AdvReac Severe Shortness Verified 06/04/25 18:18 of breath varenicline (From Chantix) AdvReac Severe Other Verified 06/04/25 18:18 Family History Father CAD (coronary artery disease) Prostate cancer Brother Alzheimer's disease Daughter Breast cancer Daughter Breast cancer Surgical History History of coronary artery stent placement (12/21/19) Social History Smoking Status: Former smoker Tobacco: How many years used: 45 Electronic Cigarette Use: with nicotine and not used how long ago did patient quit smokin10/2023 second hand exposure: No alcohol intake: current alcohol intake frequency: a few times a week substance use type: does not use ROS Constitutional Constitutional: Reports weakness; Denies chills or fever(s) Eyes Eyes: Denies blurry vision ENT HEENT: Denies abnormal hearing Cardiovascular Cardiovascular: Denies chest pain Respiratory/Chest Respiratory/Chest: Reports shortness of breath with exertion Gastrointestinal Gastrointestinal: Reports nausea and vomiting; Denies abdominal pain Genitourinary Genitourinary: Reports urinary urgency; Denies dysuria Musculoskeletal Musculoskeletal: Denies back pain Integumentary Integumentary: Denies dry skin Neurologic Neurologic: Denies abnormal speech or confusion Psychiatric Psychiatric: Denies anxiety Vital Signs Vital Signs Vital Signs: 06/04/25 18:17 06/04/25 18:18 06/04/25 18:24 Temperature 98.9 F 99.2 F H Temperature Source Oral Oral Pulse Rate 103 H 90 Respiratory Rate 16 22 H Respiratory Effort Respiratory Pattern Blood Pressure 124/74 H 161/58 H Blood Pressure Mean 90 92 Pulse Ox 95 94 94 Oxygen Delivery Method Room Air Room Air Room Air 06/04/25 18:25 06/04/25 19:18 06/04/25 20:00 Temperature 98.7 F 98 F Temperature Source Oral Oral Pulse Rate 84 85 Respiratory Rate 20 H 31 H Respiratory Effort Labored Respiratory Pattern Tachypnea Blood Pressure 131/69 H 128/81 H Blood Pressure Mean 89 96 Pulse Ox 99 97 Oxygen Delivery Method Room Air Room Air 06/04/25 21:24 Temperature 98.1 F Temperature Source Oral Pulse Rate 93 Respiratory Rate 22 H Respiratory Effort Respiratory Pattern Blood Pressure 165/69 H Blood Pressure Mean 101 Pulse Ox 94 Oxygen Delivery Method Room Air Weight Weight: 182 lb 12.8 oz Body Mass Index (BMI) 31.4 Physical Exam Const oriented x3 General Appearance: cooperative and well developed HEENT normocephalic and head/scalp atraumatic Eyes PERRL Neck no lymphadenopathy Lymph Lymphatic: no lymphadenopathy noted Resp normal respiratory effort, normal air movement and clear to auscultation bilaterally Cardio regular rate, regular rhythm, S1 normal heart sound and S2 normal heart sound GI normal to inspection, nondistended, normoactive bowel sounds Extremity normal capillary refill Skin General Skin Exam: no breakdown Neuro no focal motor deficits and no sensory deficits noted Speech: speech normal Psych thought process normal and cooperative Appearance: appropriate Results Lab / Micro Data 06/04/25 18:47 06/04/25 18:47 Labs: Laboratory Results - last 24 hr 06/04/25 18:47: WBC 7.7, RBC 4.31, Hgb 11.8 L, Hct 37.0, MCV 85.8, MCH 27.4, MCHC 31.9 L, RDW Std Deviation 47.0 H, RDW Coeff of Kal 14.7 H, Plt Count 330, MPV 10.1, Immature Gran % (Auto) 0.400, Neut % (Auto) 60.1, Lymph % (Auto) 21.7,[place] % (Auto) 8.8, Eos % (Auto) 8.4 H, Baso % (Auto) 0.6, Absolute Neuts (auto) 4.7, Absolute Lymphs (auto) 1.68, Nucleated RBC % 0, PT 12.8, INR 0.9, APTT 28.5, Sodium 141, Potassium 4.1, Chloride 105, Carbon Dioxide 23.1, Anion Gap 12, BUN 27 H, Creatinine 1.34 H, Estim Creat Clear Calc 32.56 L, Est GFR (MDRD) Non-Af 39 L, BUN/Creatinine Ratio 20.1 H, Glucose 95, Lactic Acid 1.5, Calcium 8.8, Total Bilirubin 0.21, AST 24, ALT 26, Alkaline Phosphatase 94, Troponin T High Sens 17 H D, NT pro BNP II 1032, Total Protein 6.5, Albumin 3.5, Globulin 3.0, Albumin/Globulin Ratio 1.1 06/04/25 19:39: Urine Color Yellow, Urine Clarity Sl. Cloudy, Urine pH 6.0, Ur Specific [place] 1.025, Urine Protein 30 H, Urine Glucose (UA) Normal, Urine Ketones Negative, Urine Occult Blood 10 H, Urine Nitrite Negative, Urine Bilirubin Negative, Urine Urobilinogen 4 H, Ur Leukocyte Esterase 100 H, Urine RBC 0-5 SEEN, Urine WBC 10-25 SEEN, Ur Squamous Epith Cells 10-25 SEEN, Urine Bacteria 2+, Urine Mucus 0 SEEN Imaging Radiology Impression Chest X-Ray 06/04/25 19:09 IMPRESSION: Moderate emphysema. No focal consolidation or pleural effusion. Reading Location: [facility] Assessment & Plan Assessment/Plan (1) Generalized weakness: (2) History of ESBL E. coli infection: (3) Dyspnea on exertion: (4) Essential hypertension: (5) HLD (hyperlipidemia): QUALIFIERS: Hyperlipidemia type: pure hypercholesterolemia Qualified Code(s): E78.00 - Pure hypercholesterolemia, unspecified PLAN: Plan 1 generalized weakness secondary to urinary tract infection?admit patient to progressive care unit, continue meropenem initiated in the emergency room. CBC BMP in the a.m. IV normal saline 75 cc/h 2. Dyspnea on exertion?oxygen support, advised patient to continue plan for heart catheterization June 18 and that would be more appropriate to wait for IV antibiotic therapy to be complete prior to heart catheterization 3. Hypertension?patient has been hypotensive prior to arrival and will continueto hold her antihypertensive medication and address as needed as blood pressure improves 4. Hyperlipidemia?continue statin medication 5. DVT prophylaxis?SCDs Charges/Coding Visit Charges Inpatient E&M: 38798 Init Hosp L2 06/04/25 2153 <Electronically signed by Antonio Daly MD> Cosigner Signature (if applicable): CC: Dr. Max Rodriguez MD; Dr. Antonio Daly MD~ Signed [facility] Work Phone: [phone] Discharge summary Author Otto Cueto [facility] Note Date/Time 2025 9:39 pm [facility] Medical Records Department [address] [place] [address] Emergency Department Summary 06/04/25 MR#: [id number] Acct: [id number] Name: ANNE MARIE GARZA Rep #:[id number] : 1940 85 From: Otto Cueto DO PCP: Dr. Max Rodriguez MD Status:REG ER Location: ED HPI History of Present Illness Chief Complaint: Hypotension Narrative Narrative: Patient is a 85-year-old female with past medical history of ESBL, Graves' disease, COPD, CAD, heart failure, hypothyroidism, MATT, hyperlipidemia who presented to the emerged part with concern for low blood pressure. According the patient's daughter at bedside she notes that she was here recently was diagnosed with a urinary tract infection was ultimately sent home and when the culture came back to change her antibiotics. They noted that she had a follow-up appointment with her ball maker and in the office her blood pressure was low they advised her to hold her blood pressure medications through the weekend which they did. Despite this her blood pressures were reading low at home and they followed up again with the ball maker this evening and they advised them to bring her here to be further evaluated with the known history of UTI. Patient states that she does feel extremely weak. [facility] Medical History History of ESBL E. coli infection Trigger middle finger of left hand Tobacco abuse Personal history of colonic polyps Osteoarthritis Heart attack Graves disease COPD (chronic obstructive pulmonary disease) CAD (coronary artery disease) Left ventricular diastolic dysfunction Chronic diastolic (congestive) heart failure Nicotine dependence Atherosclerosis of coronary artery of [place] heart without angina pectoris History of non-ST elevation myocardial infarction (NSTEMI) (12/21/19) Vertigo Essential hypertension Hypothyroidism Anxiety and depression MATT (obstructive sleep apnea) Obesity HLD (hyperlipidemia) Home Medications ?Medication ?Instructions ?Recorded ?Last Taken ?Type aspirin 81 mg chewable tablet 81 mg PO DAILY@0800 hear t health 05/07/20 05/06/20 History rosuvastatin 5 mg tablet 5 mg PO DAILY cholesterol 05/06/20 History omeprazole 40 mg capsule,delayed 40 mg PO BID 01/29/22 Unknown History release celecoxib 200 mg capsule (Celebrex) 200 mg PO BID 01/06 03/31 Unknown History duloxetine 30 mg capsule,delayed 30 mg PO QDAY 5 Unknown History release metoprolol succinate 50 mg 50 mg PO DAILY heart #90 ta bs 03/22/25 Unknown Rx tablet,extended release 24 hr tramadol 50 mg tablet 50 mg PO Q12H Pain Score 1-1 0 03/22/25 Unknown History valsartan 320 mg tablet 320 mg PO QDAY 03/22/25 Unkn own History nitrofurantoin 100 mg PO Q12 #10 CAPSULES 0 05/29/25 Unknown Rx monohydrate/macrocrystals 100 mg capsule albuterol sulfate 90 mcg/actuation 2 puff inhalation Q 4H PRN 05/30/25 Unknown History aerosol inhaler amlodipine 10 mg tablet 10 mg PO QDAY 05/30/25 Unkno wn History levothyroxine 137 mcg tablet 137 mcg PO MOTUWETHFR Unknown History (Levoxyl) levothyroxine 137 mcg tablet 68.5 mcg PO SA 05/30/25 U nknown History (Synthroid) Allergy/AdvReac Type Severity Reaction Status Date / Time iodine Allergy Severe Angioedema Verified 06/04/25 18:18 guaifenesin (From Mucinex) Allergy Mild Other Verified 06/04/25 18:18 ticagrelor (From Brilinta) AdvReac Severe Shortness Verified 06/04/25 18:18 of breath varenicline (From Chantix) AdvReac Severe Other Verified 06/04/25 18:18 Family History Father CAD (coronary artery disease) Prostate cancer Brother Alzheimer's disease Daughter Breast cancer Daughter Breast cancer Surgical History History of coronary artery stent placement (12/21/19) Social History Smoking Status: Former smoker Tobacco: How many years used: 45 Electronic Cigarette Use: with nicotine and not used how long ago did patient quit smokin10/2023 second hand exposure: No alcohol intake: current alcohol intake frequency: a few times a week substance use type: does not use ROS ROS ED ROS Narrative Constitutional: Denies any fevers, lightheadedness, dizziness Eyes: Denies double vision Cardiovascular: Denies chest pain Respiratory: States that she has shortness of breath but this is not new this lio chronic issue Abdomen: Denies nausea vomiting diarrhea : States that she is diagnosed with a UTI recently Neurological: Complains of generalized weakness denies numbness or tingling Musculoskeletal: Denies back pain Skin: Denies any rashes or lesions EXAM Physical Exam Narrative Exam Narrative: General: Patient lying in bed resting comfortably do not appear to be in acute distress Head: Atraumatic, normocephalic Eyes: PERRL bilaterally, EOMI biotic no conjunctival injection noted Neck: Soft, supple, trachea midline Cardiovascular: Patient tachycardic with a regular rhythm Respiratory: Clear to auscultation bilaterally Abdomen: Soft, nondistended, nontender to palpation Extremities: +4/5 strength noted in the bilateral upper and lower extremities Neurological: Patient follow commands knew that she was at [facility] years 2024 Skin: Warm, dry, intact no rashes or lesions noted Const Vital Signs: 06/04/25 18:17 06/04/25 18:18 06/04/25 18:24 Temperature 98.9 F 99.2 F H Temperature Source Oral Oral Pulse Rate 103 H 90 Respiratory Rate 16 22 H Respiratory Effort Respiratory Pattern Blood Pressure 124/74 H 161/58 H Blood Pressure Mean 90 92 Pulse Ox 95 94 94 Oxygen Delivery Method Room Air Room Air Room Air 06/04/25 18:25 06/04/25 19:18 06/04/25 20:00 Temperature 98.7 F 98 F Temperature Source Oral Oral Pulse Rate 84 85 Respiratory Rate 20 H 31 H Respiratory Effort Labored Respiratory Pattern Tachypnea Blood Pressure 131/69 H 128/81 H Blood Pressure Mean 89 96 Pulse Ox 99 97 Oxygen Delivery Method Room Air Room Air 06/04/25 21:24 Temperature 98.1 F Temperature Source Oral Pulse Rate 93 Respiratory Rate 22 H Respiratory Effort Respiratory Pattern Blood Pressure 165/69 H Blood Pressure Mean 101 Pulse Ox 94 Oxygen Delivery Method Room Air MDM MDM MDM Narrative Medical decision making narrative: Patient is a 85-year-old female who presents to the emerged part with chief complaint of concern for hypotension and generalized weakness. On the differential diagnose includes but not limited to UTI, pyelonephritis, orthostatic hypotension, dehydration. Once workup is obtained reviewed she willbe reevaluated. Patient will not be given 30 cc/kg bolus of IV fluid secondary to her history of heart failure therefore she will be given 1 L of IV fluids which was ordered 1823. It is patient CBC reviewed showed a white blood count of 7.7, hemoglobin 11.8, platelet count was noted be 330, INR normal at 0.9, PT of 12.8. Patient sodium was 141, potassium normal at 4.1, creatinine was 1.34 she has underlying chronickidney disease, AST and ALT are 2426 respectively. Patient troponin was noted to be 17 EKG reviewed showed sinus rhythm with a rate of 95 bpm. Patient's urinalysis reviewed showed 100 leukocyte esterase negative nitrates 10-25 white cells with 2+ bacteria this is questionably a contaminated sample with 10-25 squamous epithelial cells this was sent for culture. Patient chest x-ray today was reviewed by myself and by radiology which showed moderate emphysema no focalconsolidation or pleural effusion. Patient just had a CT of her chest on 05/26/2025 which was reviewed and showed no PE atelectasis versus parenchymal scarring lung bases bilaterally arteriosclerotic vascular disease of the aorta was noted. Reperfusion assessment performed at 1924 patient remained hypertensive thereforeno vasopressors indicated. Patient ambulated here in the emergency department and did desaturate to 89%. Patient's previous culture that grew out ESBL was reviewed and showed near farfan resistance with and sensitive to ampicillin/sulbactam, Levaquin, ciprofloxacin. Given this she will be given 2 g of meropenem. At this point time will discuss case with hospitalist for admission for her dyspnea on exertion, hypoxia, ESBL infection. Discussed case with hospitalist Dr. Daly who accept patient for admission. Updated the patient she is agreeable this plan as well as daughter at bedside all question concerns answered. Lab Data Labs: Laboratory Results - last 24 hr 06/04/25 06/04/25 18:47 19:39 WBC 7.7 RBC 4.31 Hgb 11.8 L Hct 37.0 MCV 85.8 MCH 27.4 MCHC 31.9 L RDW Std Deviation 47.0 H RDW Coeff of Kal 14.7 H Plt Count 330 MPV 10.1 Immature Gran % (Auto) 0.400 Neut % (Auto) 60.1 Lymph % (Auto) 21.7 [place] % (Auto) 8.8 Eos % (Auto) 8.4 H Baso % (Auto) 0.6 Absolute Neuts (auto) 4.7 Absolute Lymphs (auto) 1.68 Nucleated RBC % 0 PT 12.8 INR 0.9 APTT 28.5 Sodium 141 Potassium 4.1 Chloride 105 Carbon Dioxide 23.1 Anion Gap 12 BUN 27 H Creatinine 1.34 H Estim Creat Clear Calc 32.56 L Est GFR (MDRD) Non-Af 39 L BUN/Creatinine Ratio 20.1 H Glucose 95 Lactic Acid 1.5 Calcium 8.8 Total Bilirubin 0.21 AST 24 ALT 26 Alkaline Phosphatase 94 Troponin T High Sens 17 H D Total Protein 6.5 Albumin 3.5 Globulin 3.0 Albumin/Globulin Ratio 1.1 Urine Color Yellow Urine Clarity Sl. Cloudy Urine pH 6.0 Ur Specific [place] 1.025 Urine Protein 30 H Urine Glucose (UA) Normal Urine Ketones Negative Urine Occult Blood 10 H Urine Nitrite Negative Urine Bilirubin Negative Urine Urobilinogen 4 H Ur Leukocyte Esterase 100 H Urine RBC 0-5 SEEN Urine WBC 10-25 SEEN Ur Squamous Epith Cells 10-25 SEEN Urine Bacteria 2+ Urine Mucus 0 SEEN Radiography Diagnostic Testing: Clinical Impression(s) from Imaging Studies Chest X-Ray 06/04/25 19:09 IMPRESSION: Moderate emphysema. No focal consolidation or pleural effusion. Reading Location: [id number] Discharge Plan Triage Chief Complaint: Hypotension ED Provider: Otto Cueto Dx/Rx/DC Orders Clinical Impression: Acute hypoxic respiratory failure, Dyspnea on exertion, History of ESBL E. coliinfection, Generalized weakness Prescriptions: No Action omeprazole 40 mg capsule,delayed release(DR/EC) 40 mg PO BID celecoxib [Celebrex] 200 mg capsule 200 mg PO BID duloxetine 30 mg capsule,delayed release(DR/EC) 30 mg PO QDAY valsartan 320 mg tablet 320 mg PO QDAY metoprolol succinate 50 mg tablet extended release 24 hr 50 mg PO DAILY Qty: 90 3RF amlodipine 10 mg tablet 10 mg PO QDAY albuterol sulfate 90 mcg/actuation HFA aerosol inhaler 2 puff inhalation Q4H PRN levothyroxine [Levoxyl] 137 mcg tablet 137 mcg PO MOTUWETHFR levothyroxine [Synthroid] 137 mcg tablet 68.5 mcg PO SA aspirin 81 MG tablet,chewable 81 mg PO DAILY@0800 rosuvastatin 5 MG tablet 5 mg PO DAILY tramadol 50 mg tablet 50 mg PO Q12H nitrofurantoin monohyd/m-cryst 100 mg capsule 100 mg PO Q12 Qty: 10 0RF Primary Care Provider: Max Rodriguez Referrals: Max Rodriguez MD [Primary Care Provider] - Print Language: Malawian Disposition Disposition: Acute Care Hospital [facility] What to do if you have Problems For any increased pain, shortness of breath, bleeding, nausea or vomiting, chestpain, or any unexpected problems, contact your Primary Care Provider. Call [facility] ([phone]) or report to the closest Emergency Room. Call 911 if necessary. 06/04/252138 <Electronically signed by Otto Cueto DO> Cosigner Signature (if applicable): CC: Dr. Max Rodriguez MD ~ Signed [facility] Work Phone: [phone] History and physical note [facility] Medical Records Department [address] [place] [address] History & Physical Exam 06/04/252144 MR#: [id number] Acct: [id number] Name: ANNE MARIE GARZA Rep #:[id number] : 1940 85 From: Antonio Daly MD PCP: Dr. Max Rodriguez MD Status:REG ER Location: ED HPI - General General Date of Admission: 06/04/25 Date of Service: 06/04/25 Chief Complaint: Hypotension, shortness of breath on exertion HPI Narrative ANNE MARIE GARZA, is a 85 F who presents to the emergency room with chief complaintof hypotension. Patient was seen as an outpatient and followed up by cardiologylast and was told to hold her antihypertensive medications due to low blood pressure. Today she reported a blood pressure of 80/50 and was told by her ball maker to report to the emergency room for evaluation. Patient has been diagnosed with urinary tract infection and antibiotics have been changed due to ESBL diagnosis. Patient denies any dysuria but states her urine is frothy. Patient is scheduled to have a heart catheterization on June 18 due to increasing exertional shortness of breath and angina-like symptoms. Today i nthe emergency room after treatment with meropenem patient was ambulating and felt dyspneic and hypoxic. She will be admitted and treated for IV antibiotics of urinary tract infection. Will continue to hold antihypertensive medications although her blood pressure is elevated at the time of my evaluation. Patient denies any chest pain, shortness of breath at rest and/or fevers or chills at presenttime. Patient has had some nausea and vomiting earlier today. [facility] Medical History History of ESBL E. coli infection Trigger middle finger of left hand Tobacco abuse Personal history of colonic polyps Osteoarthritis Heart attack Graves disease COPD (chronic obstructive pulmonary disease) CAD (coronary artery disease) Left ventricular diastolic dysfunction Chronic diastolic (congestive) heart failure Nicotine dependence Atherosclerosis of coronary artery of [place] heart without angina pectoris History of non-ST elevation myocardial infarction (NSTEMI) (12/21/19) Vertigo Essential hypertension Hypothyroidism Anxiety and depression MATT (obstructive sleep apnea) Obesity HLD (hyperlipidemia) Home Medications ?Medication ?Instructions ?Recorded ?Last Taken ?Type aspirin 81 mg chewable tablet 81 mg PO DAILY@0800 hear t health 05/07/20 05/06/20 History rosuvastatin 5 mg tablet 5 mg PO DAILY cholesterol 05/06/20 History omeprazole 40 mg capsule,delayed 40 mg PO BID 01/29/22 Unknown History release celecoxib 200 mg capsule (Celebrex) 200 mg PO BID 01/06 03/31 Unknown History duloxetine 30 mg capsule,delayed 30 mg PO QDAY 5 Unknown History release metoprolol succinate 50 mg 50 mg PO DAILY heart #90 ta bs 03/22/25 Unknown Rx tablet,extended release 24 hr tramadol 50 mg tablet 50 mg PO Q12H Pain Score 1-1 0 03/22/25 Unknown History valsartan 320 mg tablet 320 mg PO QDAY 03/22/25 Unkn own History nitrofurantoin 100 mg PO Q12 #10 CAPSULES 0 05/29/25 Unknown Rx monohydrate/macrocrystals 100 mg capsule albuterol sulfate 90 mcg/actuation 2 puff inhalation Q 4H PRN 05/30/25 Unknown History aerosol inhaler amlodipine 10 mg tablet 10 mg PO QDAY 05/30/25 Unkno wn History levothyroxine 137 mcg tablet 137 mcg PO MOTUWETHFR Unknown History (Levoxyl) levothyroxine 137 mcg tablet 68.5 mcg PO SA 05/30/25 U nknown History (Synthroid) Allergy/AdvReac Type Severity Reaction Status Date / Time iodine Allergy Severe Angioedema Verified 06/04/25 18:18 guaifenesin (From Mucinex) Allergy Mild Other Verified 06/04/25 18:18 ticagrelor (From Brilinta) AdvReac Severe Shortness Verified 06/04/25 18:18 of breath varenicline (From Chantix) AdvReac Severe Other Verified 06/04/25 18:18 Family History Father CAD (coronary artery disease) Prostate cancer Brother Alzheimer's disease Daughter Breast cancer Daughter Breast cancer Surgical History History of coronary artery stent placement (12/21/19) Social History Smoking Status: Former smoker Tobacco: How many years used: 45 Electronic Cigarette Use: with nicotine and not used how long ago did patient quit smokin10/2023 second hand exposure: No alcohol intake: current alcohol intake frequency: a few times a week substance use type: does not use ROS Constitutional Constitutional: Reports weakness; Denies chills or fever(s) Eyes Eyes: Denies blurry vision ENT HEENT: Denies abnormal hearing Cardiovascular Cardiovascular: Denies chest pain Respiratory/Chest Respiratory/Chest: Reports shortness of breath with exertion Gastrointestinal Gastrointestinal: Reports nausea and vomiting; Denies abdominal pain Genitourinary Genitourinary: Reports urinary urgency; Denies dysuria Musculoskeletal Musculoskeletal: Denies back pain Integumentary Integumentary: Denies dry skin Neurologic Neurologic: Denies abnormal speech or confusion Psychiatric Psychiatric: Denies anxiety Vital Signs Vital Signs Vital Signs: 06/04/25 18:17 06/04/25 18:18 06/04/25 18:24 Temperature 98.9 F 99.2 F H Temperature Source Oral Oral Pulse Rate 103 H 90 Respiratory Rate 16 22 H Respiratory Effort Respiratory Pattern Blood Pressure 124/74 H 161/58 H Blood Pressure Mean 90 92 Pulse Ox 95 94 94 Oxygen Delivery Method Room Air Room Air Room Air 06/04/25 18:25 06/04/25 19:18 06/04/25 20:00 Temperature 98.7 F 98 F Temperature Source Oral Oral Pulse Rate 84 85 Respiratory Rate 20 H 31 H Respiratory Effort Labored Respiratory Pattern Tachypnea Blood Pressure 131/69 H 128/81 H Blood Pressure Mean 89 96 Pulse Ox 99 97 Oxygen Delivery Method Room Air Room Air 06/04/25 21:24 Temperature 98.1 F Temperature Source Oral Pulse Rate 93 Respiratory Rate 22 H Respiratory Effort Respiratory Pattern Blood Pressure 165/69 H Blood Pressure Mean 101 Pulse Ox 94 Oxygen Delivery Method Room Air Weight Weight: 182 lb 12.8 oz Body Mass Index (BMI) 31.4 Physical Exam Const oriented x3 General Appearance: cooperative and well developed HEENT normocephalic and head/scalp atraumatic Eyes PERRL Neck no lymphadenopathy Lymph Lymphatic: no lymphadenopathy noted Resp normal respiratory effort, normal air movement and clear to auscultation bilaterally Cardio regular rate, regular rhythm, S1 normal heart sound and S2 normal heart sound GI normal to inspection, nondistended, normoactive bowel sounds Extremity normal capillary refill Skin General Skin Exam: no breakdown Neuro no focal motor deficits and no sensory deficits noted Speech: speech normal Psych thought process normal and cooperative Appearance: appropriate Results Lab / Micro Data 06/04/25 18:47 06/04/25 18:47 Labs: Laboratory Results - last 24 hr 06/04/25 18:47: WBC 7.7, RBC 4.31, Hgb 11.8 L, Hct 37.0, MCV 85.8, MCH 27.4, MCHC 31.9 L, RDW Std Deviation 47.0 H, RDW Coeff of Kal 14.7 H, Plt Count 330, MPV 10.1, Immature Gran % (Auto) 0.400, Neut % (Auto) 60.1, Lymph % (Auto) 21.7,[place] % (Auto) 8.8, Eos % (Auto) 8.4 H, Baso % (Auto) 0.6, Absolute Neuts (auto) 4.7, Absolute Lymphs (auto) 1.68, Nucleated RBC % 0, PT 12.8, INR 0.9, APTT 28.5, Sodium 141, Potassium 4.1, Chloride 105, Carbon Dioxide 23.1, Anion Gap 12, BUN 27 H, Creatinine 1.34H, Estim Creat Clear Calc 32.56 L, Est GFR (MDRD) Non-Af 39 L, BUN/Creatinine Ratio 20.1 H, Pmterpt16, Lactic Acid 1.5, Calcium 8.8, Total Bilirubin 0.21, AST 24, ALT 26, Alkaline Phosphatase 94, Tro ponin T High Sens 17 H D, NT pro BNP II 1032, Total Protein 6.5, Albumin 3.5, Globulin 3.0, Albumin/Globulin Ratio 1.1 06/04/25 19:39: Urine Color Yellow, Urine Clarity Sl. Cloudy, Urine pH 6.0, Ur Specific [place] 1.025, Urine Protein 30 H, Urine Glucose (UA) Normal, Urine Ketones Negative, Urine Occult Blood 10 H, Urine Nitrite Negative, Urine Bilirubin Negative, Urine Urobilinogen 4 H, Ur Leukocyte Esterase 100 H, Urine RBC 0-5 SEEN, Urine WBC 10-25 SEEN, Ur Squamous Epith Cells 10-25 SEEN, Urine Bacteria 2+, Urine Mucus 0 SEEN Imaging Radiology Impression Chest X-Ray 06/04/25 19:09 IMPRESSION: Moderate emphysema. No focal consolidation or pleural effusion. Reading Location: [facility] Assessment & Plan Assessment/Plan (1) Generalized weakness: (2) History of ESBL E. coli infection: (3) Dyspnea on exertion: (4) Essential hypertension: (5) HLD (hyperlipidemia): QUALIFIERS: Hyperlipidemia type: pure hypercholesterolemia Qualified Code(s): E78.00 - Pure hypercholesterolemia, unspecified PLAN: Plan 1 generalized weakness secondary to urinary tract infection?admit patient to progressive care unit,continue meropenem initiated in the emergency room. CBC BMP in the a.m. IV normal saline 75 cc/h 2. Dyspnea on exertion?oxygen support, advised patient to continue plan for heart catheterization June 18 and that would be more appropriate to wait for IV antibiotic therapy to be complete prior to heart catheterization 3. Hypertension?patient has been hypotensive prior to arrival and will continueto hold her antihypertensive medication and address as needed as blood pressure improves 4. Hyperlipidemia?continue statin medication 5. DVT prophylaxis?SCDs Charges/Coding Visit Charges Inpatient E&M: 70625 Init Hosp L2 06/04/252152 Cosigner Signature (if applicable): CC: Dr. Max Rodriguez MD; Dr. Antonio Daly MD~ Signed [facility]07-28-2025 [facility] Medical Records Department [address] [place] [id number] History Physical Exam 06/04/252144 MR#: [id number] Acct: [id number] Name: ANNE MARIE GARZA Rep #: [id number] : 1940 85 From: Antonio Daly MD PCP: Dr. Max Rodriguez MD Status:REG ER Location: ED HPI - General General Date of Admission: 06/04/25 Date of Service: 06/04/25 Chief Complaint: Hypotension, shortness of breath on exertion HPI Narrative ANNE MARIE GARZA, is a 85 F who presents to the emergency room with chief complaint of hypotension. Patient was seen as an outpatient and followed up by cardiology last and was told to hold her antihypertensive medications due to low blood pressure. Today she reported a blood pressure of 80/50 and was told by her ball maker to report to the emergency room for evaluation. Patient has been diagnosed with urinary tract infection and antibiotics have been changed due to ESBL diagnosis. Patient denies any dysuria but states her urine is frothy. Patient is scheduled to have a heart catheterization on June 18 due to increasing exertional shortness of breath and angina-like symptoms. Today in the emergency room after treatment with meropenem patient was ambulating and felt dyspneic and hypoxic. She will be admitted and treated for IV antibiotics of urinary tract infection. Will continue to hold antihypertensive medications although her blood pressure is elevated at the time of my evaluation. Patient denies any chest pain, shortness of breath at rest and/or fevers or chills at present time. Patient has had some nausea and vomiting earlier today. [facility] Medical History History of ESBL E. coli infection Trigger middle finger of left hand Tobacco abuse Personal history of colonic polyps Osteoarthritis Heart attack Graves disease COPD (chronic obstructive pulmonary disease) CAD (coronary artery disease) Left ventricular diastolic dysfunction Chronic diastolic (congestive) heart failure Nicotine dependence Atherosclerosis of coronary artery of [place] heart without angina pectoris History of non-ST elevation myocardial infarction (NSTEMI) (12/21/19) Vertigo Essential hypertension Hypothyroidism Anxiety and depression MATT (obstructive sleep apnea) Obesity HLD (hyperlipidemia) Home Medications ???Medication ???Instructions ???Recorded ???Last Taken ???Type aspirin 81 mg chewable tablet 81 mg PO DAILY@0800 heart Interactivo 0 05/07/20 05/06/20 History rosuvastatin 5 mg tablet 5 mg PO DAILY cholesterol 05/07/20 05/06/20 History omeprazole 40 mg capsule,delayed 40 mg PO BID 01/29/22 Unknown Hist ory release celecoxib 200 mg capsule (Celebrex) 200 mg PO BID 01/21/24 Unknown History duloxetine 30 mg capsule,delayed 30 mg PO QDAY 03/22/25 Unknown His tory release metoprolol succinate 50 mg 50 mg PO DAILY heart #90 tabs 03/08 04/01 Unknown Rx tablet,extended release 24 hr tramadol 50 mg tablet 50 mg PO Q12H Pain Score 1-10 03/08 04/01 Unknown History valsartan 320 mg tablet 320 mg PO QDAY 03/22/25 Unknown Hi story nitrofurantoin 100 mg PO Q12 #10 CAPSULES 5 Unknown Rx monohydrate/macrocrystals 100 mg capsule albuterol sulfate 90 mcg/actuation 2 puff inhalation Q4H PRN Unknown History aerosol inhaler amlodipine 10 mg tablet 10 mg PO QDAY 05/30/25 Unknown His tory levothyroxine 137 mcg tablet 137 mcg PO MOTUWETHFR 05/30/25 Unk nown History (Levoxyl) levothyroxine 137 mcg tablet 68.5 mcg PO SA 05/30/25 Unknown Hi story (Synthroid) Allergy/AdvReac Type Severity Reaction Status Date / Time iodine Allergy Severe Angioedema Verified 06/04/25 18:18 guaifenesin (From Mucinex) Allergy Mild Other Verified 06/04/25 18:18 ticagrelor (From Brilinta) AdvReac Severe Shortness Verified 06/04/25 18:18 of breath varenicline (From Chantix) AdvReac Severe Other Verified 06/04/25 18:18 Family History Father CAD (coronary artery disease) Prostate cancer Brother Alzheimer's disease Daughter Breast cancer Daughter Breast cancer Surgical History History of coronary artery stent placement (12/21/19) Social History Smoking Status: Former smoker Tobacco: How many years used: 45 Electronic Cigarette Use: with nicotine and not used how long ago did patient quit smokin10/2023 second hand exposure: No alcohol intake: current alcohol intake frequency: a few times a week substance use type: does not use ROS Constitutional Constitutional: Reports weakness; Denies chills or fever(s) Eyes Eyes: Denies blurry vision ENT HEENT: Denies abnormal hearing Car (more content not included)...[facility]07-28-2025 Discharge summary [facility] Medical Records Department [address] [place] [address] Emergency Department Summary 06/04/25 MR#: [id number] Acct: [id number] Name: ANNE MARIE GARZA Rep #:[id number] : 1940 85 From: Otto Cueto DO PCP: Dr. Max Rodriguez MD Status:REG ER Location: ED HPI History of Present Illness Chief Complaint: Hypotension Narrative Narrative: Patient is a 85-year-old female with past medical history of ESBL, Graves' disease, COPD, CAD, heart failure, hypothyroidism, MATT, hyperlipidemia who presented to the emerged part with concern for low blood pressure. According the patient's daughter at bedside she notes that she was here recently was diagnosed with a urinary tract infection was ultimately sent home and when the culture came back to change her antibiotics. They noted that she had a follow-up appointment with her ball maker andin the office her blood pressure was low they advised her to hold her blood pressure medications through the weekend which they did. Despite this her blood pressures were reading low at home and theyfollowed up again with the ball maker this evening and they advised them to bring her here to be further evaluated with the known history of UTI. Patient states that she does feel extremely weak. [facility] Medical History History of ESBL E. coli infection Trigger middle finger of left hand Tobacco abuse Personal history of colonic polyps Osteoarthritis Heart attack Graves disease COPD (chronic obstructive pulmonary disease) CAD (coronary artery disease) Left ventricular diastolic dysfunction Chronic diastolic (congestive) heart failure Nicotine dependence Atherosclerosis of coronary artery of [place] heart without angina pectoris History of non-ST elevation myocardial infarction (NSTEMI) (12/21/19) Vertigo Essential hypertension Hypothyroidism Anxiety and depression MATT (obstructive sleep apnea) Obesity HLD (hyperlipidemia) Home Medications ?Medication ?Instructions ?Recorded ?Last Taken ?Type aspirin 81 mg chewable tablet 81 mg PO DAILY@0800 hear t health 05/07/20 05/06/20 History rosuvastatin 5 mg tablet 5 mg PO DAILY cholesterol 05/06/20 History omeprazole 40 mg capsule,delayed 40 mg PO BID 01/29/22 Unknown History release celecoxib 200 mg capsule (Celebrex) 200 mg PO BID 01/06 03/31 Unknown History duloxetine 30 mg capsule,delayed 30 mg PO QDAY 5 Unknown History release metoprolol succinate 50 mg 50 mg PO DAILY heart #90 ta bs 03/22/25 Unknown Rx tablet,extended release 24 hr tramadol 50 mg tablet 50 mg PO Q12H Pain Score 1-1 0 03/22/25 Unknown History valsartan 320 mg tablet 320 mg PO QDAY 03/22/25 Unkn own History nitrofurantoin 100 mg PO Q12 #10 CAPSULES 0 05/29/25 Unknown Rx monohydrate/macrocrystals 100 mg capsule albuterol sulfate 90 mcg/actuation 2 puff inhalation Q 4H PRN 05/30/25 Unknown History aerosol inhaler amlodipine 10 mg tablet 10 mg PO QDAY 05/30/25 Unkno wn History levothyroxine 137 mcg tablet 137 mcg PO MOTUWETHFR Unknown History (Levoxyl) levothyroxine 137 mcg tablet 68.5 mcg PO SA 05/30/25 U nknown History (Synthroid) Allergy/AdvReac Type Severity Reaction Status Date / Time iodine Allergy Severe Angioedema Verified 06/04/25 18:18 guaifenesin (From Mucinex) Allergy Mild Other Verified 06/04/25 18:18 ticagrelor (From Brilinta) AdvReac Severe Shortness Verified 06/04/25 18:18 of breath varenicline (From Chantix) AdvReac Severe Other Verified 06/04/25 18:18 Family History Father CAD (coronary artery disease) Prostate cancer Brother Alzheimer's disease Daughter Breast cancer Daughter Breast cancer Surgical History History of coronary artery stent placement (12/21/19) Social History Smoking Status: Former smoker Tobacco: How many years used: 45 Electronic Cigarette Use: with nicotine and not used how long ago did patient quit smokin10/2023 second hand exposure: No alcohol intake: current alcohol intake frequency: a few times a week substance use type: does not use ROS ROS ED ROS Narrative Constitutional: Denies any fevers, lightheadedness, dizziness Eyes: Denies double vision Cardiovascular: Denies chest pain Respiratory: States that she has shortness of breath but this is not new this lio chronic issue Abdomen: Denies nausea vomiting diarrhea : States that she is diagnosed with a UTI recently Neurological: Complains of generalized weakness denies numbness or tingling Musculoskeletal: Denies back pain Skin: Denies any rashes or lesions EXAM Physical Exam Narrative Exam Narrative: General: Patient lying in bed resting comfortably do not appear to be in acute distress Head: Atraumatic, normocephalic Eyes: PERRL bilaterally, EOMI biotic no conjunctival injection noted Neck: Soft, supple, trachea midline Cardiovascular: Patient tachycardic with a regular rhythm Respiratory: Clear to auscultation bilaterally Abdomen: Soft, nondistended, nontender to palpation Extremities: +4/5 strength noted in the bilateral upper and lower extremities Neurological: Patient follow commands knew that she was at [facility] years 2024 Skin: Warm, dry, intact no rashes or lesions noted Const Vital Signs: 06/04/25 18:17 06/04/25 18:18 06/04/25 18:24 Temperature 98.9 F 99.2 F H Temperature Source Oral Oral Pulse Rate 103 H 90 Respiratory Rate 16 22 H Respiratory Effort Respiratory Pattern Blood Pressure 124/74 H 161/58 H Blood Pressure Mean 90 92 Pulse Ox 95 94 94 Oxygen Delivery Method Room Air Room Air Room Air 06/04/25 18:25 06/04/25 19:18 06/04/25 20:00 Temperature 98.7 F 98 F Temperature Source Oral Oral Pulse Rate 84 85 Respiratory Rate 20 H 31 H Respiratory Effort Labored Respiratory Pattern Tachypnea Blood Pressure 131/69 H 128/81 H Blood Pressure Mean 89 96 Pulse Ox 99 97 Oxygen Delivery Method Room Air Room Air 06/04/25 21:24 Temperature 98.1 F Temperature Source Oral Pulse Rate 93 Respiratory Rate 22 H Respiratory Effort Respiratory Pattern Blood Pressure 165/69 H Blood Pressure Mean 101 Pulse Ox 94 Oxygen Delivery Method Room Air MDM MDM MDM Narrative Medical decision making narrative: Patient is a 85-year-old female who presents to the emerged part with chief complaint of concern for hypotension and generalized weakness. On the differential diagnose includes but not limited to UTI, pyelonephritis, orthostatic hypotension, dehydration. Once workup is obtained reviewed she willbe reevaluated. Patient will not be given 30 cc/kg bolus of IV fluid secondary to her history of heart failure therefore she will be given 1 L of IV fluids which was ordered 1823. It is patient CBC reviewed showed a white blood count of 7.7, hemoglobin 11.8, platelet count was noted be 330, INR normal at 0.9, PT of 12.8. Patient sodium was 141, potassium normal at 4.1, creatinine was 1.34 she has underlying chronickidney disease, AST and ALT are 2426 respectively. Patient troponin was noted to be 17 EKG reviewed showed sinus rhythm with a rate of 95 bpm. Patient's urinalysis reviewed showed 100 leukocyte esterase negative nitrates 10-25 white cells with 2+ bacteria this is questionably a contaminated sample with 10-25 squamous epithelial cells this was sent for culture. Patient chest x-ray today was reviewed by myself and by radiology which showed moderate emphysema no focalconsolidation or pleural effusion. Patient just had a CT of her chest on 05/26/2025 which wasreviewed and showed no PE atelectasis versus parenchymal scarring lung bases bilaterally arteriosclerotic vascular disease of the aorta was noted. Reperfusion assessment performed at 4 patient remained hypertensive thereforeno vasopressors indicated. Patient ambulated here in the emergency department and did desaturate to 89%. Patient's previous culture that grew out ESBL was reviewed and showed near farfan resistance with and sensitive to ampicillin/sulbactam, Levaquin, ciprofloxacin. Given this she will be given 2 g of meropenem. At this point time will discuss case with hospitalist for admission for her dyspnea on exertion, hypoxia, ESBL infection. Discussed case with hospitalist Dr. Daly who accept patient for admission. Updated the patient she is agreeable this plan as well as daughter at bedside all question concerns answered. Lab Data Labs: Laboratory Results - last 24 hr 06/04/25 06/04/25 18:47 19:39 WBC 7.7 RBC 4.31 Hgb 11.8 L Hct 37.0 MCV 85.8 MCH 27.4 MCHC 31.9 L RDW Std Deviation 47.0 H RDW Coeff of Kal 14.7 H Plt Count 330 MPV 10.1 Immature Gran % (Auto) 0.400 Neut % (Auto) 60.1 Lymph % (Auto) 21.7 [place] % (Auto) 8.8 Eos % (Auto) 8.4 H Baso % (Auto) 0.6 Absolute Neuts (auto) 4.7 Absolute Lymphs (auto) 1.68 Nucleated RBC % 0 PT 12.8 INR 0.9 APTT 28.5 Sodium 141 Potassium 4.1 Chloride 105 Carbon Dioxide 23.1 Anion Gap 12 BUN 27 H Creatinine 1.34 H Estim Creat Clear Calc 32.56 L Est GFR (MDRD) Non-Af 39 L BUN/Creatinine Ratio 20.1 H Glucose 95 Lactic Acid 1.5 Calcium 8.8 Total Bilirubin 0.21 AST 24 ALT 26 Alkaline Phosphatase 94 Troponin T High Sens 17 H D Total Protein 6.5 Albumin 3.5 Globulin 3.0 Albumin/Globulin Ratio 1.1 Urine Color Yellow Urine Clarity Sl. Cloudy Urine pH 6.0 Ur Specific [place] 1.025 Urine Protein 30 H Urine Glucose (UA) Normal Urine Ketones Negative Urine Occult Blood 10 H Urine Nitrite Negative Urine Bilirubin Negative Urine Urobilinogen 4 H Ur Leukocyte Esterase 100 H Urine RBC 0-5 SEEN Urine WBC 10-25 SEEN Ur Squamous Epith Cells 10-25 SEEN Urine Bacteria 2+ Urine Mucus 0 SEEN Radiography Diagnostic Testing: Clinical Impression(s) from Imaging Studies Chest X-Ray 06/04/25 19:09 IMPRESSION: Moderate emphysema. No focal consolidation or pleural effusion. Reading Location: [id number] Discharge Plan Triage Chief Complaint: Hypotension ED Provider: Otto Cueto Dx/Rx/DC Orders Clinical Impression: Acute hypoxic respiratory failure, Dyspnea on exertion, History of ESBL E. coliinfection, Generalized weakness Prescriptions: No Action omeprazole 40 mg capsule,delayed release(DR/EC) 40 mg PO BID celecoxib [Celebrex] 200 mg capsule 200 mg PO BID duloxetine 30 mg capsule,delayed release(DR/EC) 30 mg PO QDAY valsartan 320 mg tablet 320 mg PO QDAY metoprolol succinate 50 mg tablet extended release 24 hr 50 mg PO DAILY Qty: 90 3RF amlodipine 10 mg tablet 10 mg PO QDAY albuterol sulfate 90 mcg/actuation HFA aerosol inhaler 2 puff inhalation Q4H PRN levothyroxine [Levoxyl] 137 mcg tablet 137 mcg PO MOTUWETHFR levothyroxine [Synthroid] 137 mcg tablet 68.5 mcg PO SA aspirin 81 MG tablet,chewable 81 mg PO DAILY@0800 rosuvastatin 5 MG tablet 5 mg PO DAILY tramadol 50 mg tablet 50 mg PO Q12H nitrofurantoin monohyd/m-cryst 100 mg capsule 100 mg PO Q12 Qty: 10 0RF Primary Care Provider: Max Rodriguez Referrals: Max Rodriguez MD [Primary Care Provider] - Print Language: Malawian Disposition Disposition: Acute Care Hospital [facility] What to do if you have Problems For any increased pain, shortness of breath, bleeding, nausea or vomiting, chestpain, or any unexpected problems, contact your Primary Care Provider. Call [facility] ([phone]) or report tothe closest Emergency Room. Call 911 if necessary. 06/04/252138 Cosigner Signature (if applicable): CC: Dr. Max Rodriguez MD ~ Signed [facility]07-28-2025 Radiology Diagnostic study note [facility] Imaging Services [address] [place], [place] [address] Chest PA and Lateral MR#: [id number] Acct: [id number] Name: ANNE MARIE GARZA Rep #: [id number] : 1940 F 85 From: Mian Donato MD PCP: Dr. Max Rodriguez MD Status: [facility] ER Study:Chest PA and Lateral Date of Exam: 06/04/25 Exam# [id number] Ordering Dr: Arturo Cueto DO PROCEDURE: CHEST PA AND LATERAL 2025 REASON FOR EXAM: COUGH TECHNIQUE: CHEST PA AND LATERAL COMPARISON: Chest x-ray 12/13/2023, CT 05/26/2025. FINDINGS: Lungs/Pleura: No focal consolidation, pneumothorax, or pleural effusion. Moderate bilateral pulmonary emphysema. No significant vascular congestion. Heart/Mediastinum: Borderline enlarged. Calcification of the aortic arch. Bones/Soft tissues: Mild degenerative changes of the visualized spine. RAD/Chest PA and Lateral IMPRESSION: Moderate emphysema. No focal consolidation or pleural effusion. Reading Location: [id number] CC: Dr. Max Rodriguez MD; Dr. Otto Cueto DO ~ Museum Attendant: Signed [facility]07-28-2025 Discharge summary Author Otto Cueto [facility] Note Date/Time 2025 9:[address] [facility] Medical Records Department [address] [place] [address] Emergency Department Summary 06/04/25 MR#: [id number] Acct: [id number] Name: ANNE MARIE GARZA Rep #:[id number] : 1940 85 From: Otto Cueto DO PCP: Dr. Max Rodriguez MD Status:REG ER Location: ED HPI History of Present Illness Chief Complaint: Hypotension Narrative Narrative: Patient is a 85-year-old female with past medical history of ESBL, Graves' disease, COPD, CAD, heart failure, hypothyroidism, MATT, hyperlipidemia who presented to the emerged part with concern for low blood pressure. According the patient's daughter at bedside she notes that she was here recently was diagnosed with a urinary tract infection was ultimately sent home and when the culture came back to change her antibiotics. They noted that she had a follow-up appointment with her ball maker and in the office her blood pressure was low they advised her to hold her blood pressure medications through the weekend which they did. Despite this her blood pressures were reading low at home and they followed up again with the ball maker this evening and they advised them to bring her here to be further evaluated with the known history of UTI. Patient states that she does feel extremely weak. [facility] Medical History History of ESBL E. coli infection Trigger middle finger of left hand Tobacco abuse Personal history of colonic polyps Osteoarthritis Heart attack Graves disease COPD (chronic obstructive pulmonary disease) CAD (coronary artery disease) Left ventricular diastolic dysfunction Chronic diastolic (congestive) heart failure Nicotine dependence Atherosclerosis of coronary artery of [place] heart without angina pectoris History of non-ST elevation myocardial infarction (NSTEMI) (12/21/19) Vertigo Essential hypertension Hypothyroidism Anxiety and depression MATT (obstructive sleep apnea) Obesity HLD (hyperlipidemia) Home Medications ?Medication ?Instructions ?Recorded ?Last Taken ?Type aspirin 81 mg chewable tablet 81 mg PO DAILY@0800 hear t health 05/07/20 05/06/20 History rosuvastatin 5 mg tablet 5 mg PO DAILY cholesterol 05/06/20 History omeprazole 40 mg capsule,delayed 40 mg PO BID 01/29/22 Unknown History release celecoxib 200 mg capsule (Celebrex) 200 mg PO BID 01/06 03/31 Unknown History duloxetine 30 mg capsule,delayed 30 mg PO QDAY 5 Unknown History release metoprolol succinate 50 mg 50 mg PO DAILY heart #90 ta bs 03/22/25 Unknown Rx tablet,extended release 24 hr tramadol 50 mg tablet 50 mg PO Q12H Pain Score 1-1 0 03/22/25 Unknown History valsartan 320 mg tablet 320 mg PO QDAY 03/22/25 Unkn own History nitrofurantoin 100 mg PO Q12 #10 CAPSULES 0 05/29/25 Unknown Rx monohydrate/macrocrystals 100 mg capsule albuterol sulfate 90 mcg/actuation 2 puff inhalation Q 4H PRN 05/30/25 Unknown History aerosol inhaler amlodipine 10 mg tablet 10 mg PO QDAY 05/30/25 Unkno wn History levothyroxine 137 mcg tablet 137 mcg PO MOTUWETHFR Unknown History (Levoxyl) levothyroxine 137 mcg tablet 68.5 mcg PO SA 05/30/25 U nknown History (Synthroid) Allergy/AdvReac Type Severity Reaction Status Date / Time iodine Allergy Severe Angioedema Verified 06/04/25 18:18 guaifenesin (From Mucinex) Allergy Mild Other Verified 06/04/25 18:18 ticagrelor (From Brilinta) AdvReac Severe Shortness Verified 06/04/25 18:18 of breath varenicline (From Chantix) AdvReac Severe Other Verified 06/04/25 18:18 Family History Father CAD (coronary artery disease) Prostate cancer Brother Alzheimer's disease Daughter Breast cancer Daughter Breast cancer Surgical History History of coronary artery stent placement (12/21/19) Social History Smoking Status: Former smoker Tobacco: How many years used: 45 Electronic Cigarette Use: with nicotine and not used how long ago did patient quit smokin10/2023 second hand exposure: No alcohol intake: current alcohol intake frequency: a few times a week substance use type: does not use ROS ROS ED ROS Narrative Constitutional: Denies any fevers, lightheadedness, dizziness Eyes: Denies double vision Cardiovascular: Denies chest pain Respiratory: States that she has shortness of breath but this is not new this lio chronic issue Abdomen: Denies nausea vomiting diarrhea : States that she is diagnosed with a UTI recently Neurological: Complains of generalized weakness denies numbness or tingling Musculoskeletal: Denies back pain Skin: Denies any rashes or lesions EXAM Physical Exam Narrative Exam Narrative: General: Patient lying in bed resting comfortably do not appear to be in acute distress Head: Atraumatic, normocephalic Eyes: PERRL bilaterally, EOMI biotic no conjunctival injection noted Neck: Soft, supple, trachea midline Cardiovascular: Patient tachycardic with a regular rhythm Respiratory: Clear to auscultation bilaterally Abdomen: Soft, nondistended, nontender to palpation Extremities: +4/5 strength noted in the bilateral upper and lower extremities Neurological: Patient follow commands knew that she was at [facility] years 2024 Skin: Warm, dry, intact no rashes or lesions noted Const Vital Signs: 06/04/25 18:17 06/04/25 18:18 06/04/25 18:24 Temperature 98.9 F 99.2 F H Temperature Source Oral Oral Pulse Rate 103 H 90 Respiratory Rate 16 22 H Respiratory Effort Respiratory Pattern Blood Pressure 124/74 H 161/58 H Blood Pressure Mean 90 92 Pulse Ox 95 94 94 Oxygen Delivery Method Room Air Room Air Room Air 06/04/25 18:25 06/04/25 19:18 06/04/25 20:00 Temperature 98.7 F 98 F Temperature Source Oral Oral Pulse Rate 84 85 Respiratory Rate 20 H 31 H Respiratory Effort Labored Respiratory Pattern Tachypnea Blood Pressure 131/69 H 128/81 H Blood Pressure Mean 89 96 Pulse Ox 99 97 Oxygen Delivery Method Room Air Room Air 06/04/25 21:24 Temperature 98.1 F Temperature Source Oral Pulse Rate 93 Respiratory Rate 22 H Respiratory Effort Respiratory Pattern Blood Pressure 165/69 H Blood Pressure Mean 101 Pulse Ox 94 Oxygen Delivery Method Room Air MDM MDM MDM Narrative Medical decision making narrative: Patient is a 85-year-old female who presents to the emerged part with chief complaint of concern for hypotension and generalized weakness. On the differential diagnose includes but not limited to UTI, pyelonephritis, orthostatic hypotension, dehydration. Once workup is obtained reviewed she willbe reevaluated. Patient will not be given 30 cc/kg bolus of IV fluid secondary to her history of heart failure therefore she will be given 1 L of IV fluids which was ordered 1823. It is patient CBC reviewed showed a white blood count of 7.7, hemoglobin 11.8, platelet count was noted be 330, INR normal at 0.9, PT of 12.8. Patient sodium was 141, potassium normal at 4.1, creatinine was 1.34 she has underlying chronickidney disease, AST and ALT are 2426 respectively. Patient troponin was noted to be 17 EKG reviewed showed sinus rhythm with a rate of 95 bpm. Patient's urinalysis reviewed showed 100 leukocyte esterase negative nitrates 10-25 white cells with 2+ bacteria this is questionably a contaminated sample with 10-25 squamous epithelial cells this was sent for culture. Patient chest x-ray today was reviewed by myself and by radiology which showed moderate emphysema no focalconsolidation or pleural effusion. Patient just had a CT of her chest on 05/26/2025 which was reviewed and showed no PE atelectasis versus parenchymal scarring lung bases bilaterally arteriosclerotic vascular disease of the aorta was noted. Reperfusion assessment performed at 1923 patient remained hypertensive thereforeno vasopressors indicated. Patient ambulated here in the emergency department and did desaturate to 89%. Patient's previous culture that grew out ESBL was reviewed and showed near farfan resistance with and sensitive to ampicillin/sulbactam, Levaquin, ciprofloxacin. Given this she will be given 2 g of meropenem. At this point time will discuss case with hospitalist for admission for her dyspnea on exertion, hypoxia, ESBL infection. Discussed case with hospitalist Dr. Daly who accept patient for admission. Updated the patient she is agreeable this plan as well as daughter at bedside all question concerns answered. Lab Data Labs: Laboratory Results - last 24 hr 06/04/25 06/04/25 18:47 19:39 WBC 7.7 RBC 4.31 Hgb 11.8 L Hct 37.0 MCV 85.8 MCH 27.4 MCHC 31.9 L RDW Std Deviation 47.0 H RDW Coeff of Kal 14.7 H Plt Count 330 MPV 10.1 Immature Gran % (Auto) 0.400 Neut % (Auto) 60.1 Lymph % (Auto) 21.7 [place] % (Auto) 8.8 Eos % (Auto) 8.4 H Baso % (Auto) 0.6 Absolute Neuts (auto) 4.7 Absolute Lymphs (auto) 1.68 Nucleated RBC % 0 PT 12.8 INR 0.9 APTT 28.5 Sodium 141 Potassium 4.1 Chloride 105 Carbon Dioxide 23.1 Anion Gap 12 BUN 27 H Creatinine 1.34 H Estim Creat Clear Calc 32.56 L Est GFR (MDRD) Non-Af 39 L BUN/Creatinine Ratio 20.1 H Glucose 95 Lactic Acid 1.5 Calcium 8.8 Total Bilirubin 0.21 AST 24 ALT 26 Alkaline Phosphatase 94 Troponin T High Sens 17 H D Total Protein 6.5 Albumin 3.5 Globulin 3.0 Albumin/Globulin Ratio 1.1 Urine Color Yellow Urine Clarity Sl. Cloudy Urine pH 6.0 Ur Specific [place] 1.025 Urine Protein 30 H Urine Glucose (UA) Normal Urine Ketones Negative Urine Occult Blood 10 H Urine Nitrite Negative Urine Bilirubin Negative Urine Urobilinogen 4 H Ur Leukocyte Esterase 100 H Urine RBC 0-5 SEEN Urine WBC 10-25 SEEN Ur Squamous Epith Cells 10-25 SEEN Urine Bacteria 2+ Urine Mucus 0 SEEN Radiography Diagnostic Testing: Clinical Impression(s) from Imaging Studies Chest X-Ray 06/04/25 19:09 IMPRESSION: Moderate emphysema. No focal consolidation or pleural effusion. Reading Location: [id number] Discharge Plan Triage Chief Complaint: Hypotension ED Provider: Otto Cueto Dx/Rx/DC Orders Clinical Impression: Acute hypoxic respiratory failure, Dyspnea on exertion, History of ESBL E. coliinfection, Generalized weakness Prescriptions: No Action omeprazole 40 mg capsule,delayed release(DR/EC) 40 mg PO BID celecoxib [Celebrex] 200 mg capsule 200 mg PO BID duloxetine 30 mg capsule,delayed release(DR/EC) 30 mg PO QDAY valsartan 320 mg tablet 320 mg PO QDAY metoprolol succinate 50 mg tablet extended release 24 hr 50 mg PO DAILY Qty: 90 3RF amlodipine 10 mg tablet 10 mg PO QDAY albuterol sulfate 90 mcg/actuation HFA aerosol inhaler 2 puff inhalation Q4H PRN levothyroxine [Levoxyl] 137 mcg tablet 137 mcg PO MOTUWETHFR levothyroxine [Synthroid] 137 mcg tablet 68.5 mcg PO SA aspirin 81 MG tablet,chewable 81 mg PO DAILY@0800 rosuvastatin 5 MG tablet 5 mg PO DAILY tramadol 50 mg tablet 50 mg PO Q12H nitrofurantoin monohyd/m-cryst 100 mg capsule 100 mg PO Q12 Qty: 10 0RF Primary Care Provider: Max Rodriguez Referrals: Max Rodriguez MD [Primary Care Provider] - Print Language: Malawian Disposition Disposition: Acute Care Hospital [facility] What to do if you have Problems For any increased pain, shortness of breath, bleeding, nausea or vomiting, chestpain, or any unexpected problems, contact your Primary Care Provider. Call [facility] ([phone]) or report to the closest Emergency Room. Call 911 if necessary. 06/04/252138 <Electronically signed by Otto Cueto DO> Cosigner Signature (if applicable): CC: Dr. Max Rodriguez MD ~ Signed [facility] Work Phone: [phone] 319-746807-28-2025 Telephone encounter Note* Telephone Encounter - Eileen Degroot MA - 2025 11:30 AM EDT Advised pt an ED f/u should be scheduled to recheck a urine and do a Hospital f/u. Offered to schedule with PCP Team this week. Wait pt response. Eileen Degroot MA [facility]07-24-2025 NoteHNO ID: [id number] Author: ORLY RICHARDSON LPN Service: ? Author Type: LICENSED NURSE Type: Progress Notes Filed: 05/31/2025 06:51 Note Text: Scan on 05/30/2025 3:19 PM by ProviderGaudencio PA-C: [facility] History of Present illness Narrative* Orly Richardson LPN - 05/31/2025 6:51 AM EDT Scan on 05/30/2025 3:19 PM by ProviderGaudencio PA-C: Consultation - Cardiology documented in this encounterC[facility] Clinic [facility]07-23-2025 NoteHNO ID: [id number] Author: ?, ?, ? Service: ? Author Type: ? Type: Progress Notes Filed: 05/30/2025 15:31 Note Text: Patient is identified through a medication adherence outreach initiative based on pharmacy claims data from: [employer] Medication Adherence Category: Statins First Review Attribution Status: Correct attribution Medication(s) Rosuvastatin 5 mg Medication Status per portal/Epic Reconcile Dispense: Not filled Medication Status per Profile Review: No issues per profile review Patient/provider appropriate for outreach? Yes Patient identified by name and Outreach to patient: Left Voicemail/message for return call What was primary intervention? No intervention Sent/Responded to [facility] What was primary intervention? Remind patient to molded goods spot picker or fill Last filled 01/26/2025, next fill due 04/26/2025 [facility] History of Present illness Narrative* Sia Simons - 05/30/2025 3:26 PM EDT Patient is identified through a medication adherence outreach initiative based on pharmacy claims data from: [employer] Medication Adherence Category: Statins First Review Attribution Status: Correct attribution Medication(s) Rosuvastatin 5 mg Medication Status per portal/Epic Reconcile Dispense: Not filled Medication Status per Profile Review: No issues per profile review Patient/provider appropriate for outreach? Yes Patient identified by name and Outreach to patient: Left Voicemail/message for return call What was primary intervention? No intervention Sent/Responded to [employer] What was primary intervention? Remind patient to molded goods spot picker or fill Last filled 01/26/2025, next fill due 04/26/2025 Sia Simons [facility] Team documented in this encounterCleveland Clinic Foundation07-[facility]-2025 NotePatient Outreach (PHPOHE) ANNE MARIE GARZA ([id number]) 1940 F Date Time Provider Department 05/30/25 MAX RODRIGUEZ PHPOHE During your visit today, we recorded the following information about you: Sia Simons 05/30/2025 3:31 PM Signed Patient is identified through a medication adherence outreach initiative based on pharmacy claims data from: [employer] Medication Adherence Category: Statins First Review Attribution Status: Correct attribution Medication(s) Rosuvastatin 5 mg Medication Status per portal/Epic Reconcile Dispense: Not filled Medication Status per Profile Review: No issues per profile review Patient/provider appropriate for outreach? Yes Patient identified by name and Outreach to patient: Left Voicemail/message for return call What was primary intervention? No intervention Sent/Responded to [employer] What was primary intervention? Remind patient to molded goods spot picker or fill Last filled 01/26/2025, next fill due 04/26/2025 Sia Simons [facility] Team Allergies As of Date: 05/30/2025 Noted Allergy Reaction IODINE 01/19/2010 10 - [...] to feel jittery all over Date Reviewed: 05/21/2025 Reviewed by: Max Rodriguez MD - Fully Assessed Reason for Visit: Allied Health Visit [5] Cmt: Medication adherence outreach Prescriptions as of 05/30/2025 - celecoxib (CELEBREX) 200 mg capsule Take 1 capsule by mouth two times a day. - traMADol (ULTRAM) 50 mg tablet Take 1 tablet by mouth every 8 hours as needed for pain for up to 90 days. - amLODIPine (NORVASC) 10 mg tablet Take 1 tablet by mouth once daily. Increased by [facility] 03/2025 for SOB - metoprolol succinate ER (TOPROL XL) 50 mg 24 hr tablet Take 1 tablet by mouth once daily. Decreased by [facility] 03/2025 due to SOB - DULoxetine (CYMBALTA) 30 mg capsule Take 1 capsule by mouth once daily. In place of the Citaloram - levothyroxine (LEVOXYL) 137 mcg tablet Take one tab by mouth once a day Wed-Wed, 1/2 on Wed and none on Wednesday. Take on empty stomach. For Thyroid. - omeprazole (PRILOSEC) 40 mg capsule Take 1 capsule by mouth two times a day. - rosuvastatin (CRESTOR) 5 mg tablet Take 1 tablet by mouth once daily. - valsartan (DIOVAN) 320 mg tablet Take 1 tablet by mouth once daily. - albuterol HFA (PROVENTIL HFA, VENTOLIN HFA) 90 mcg/actuation inhaler Inhale 2 Puffs as instructed every 4 hours as needed. - fluticasone-salmeterol (WIXELA INHUB) 250-50 mcg/dose inhaler Inhale 1 Puff as instructed two times a day. - nitroglycerin sublingual [...] once daily. Problem List As Of Date 05/30/2025 Noted Resolved SUMMARY [V999.95] 01/19/2010 11/04/2011 History [...] 05/26/2018 Over weight [E66.3] 12/30/2018 Status post tot (more content not included)...[facility] 05-28-2025 NoteHNO ID: [id number] Author: ORLY RICHARDSON LPN Service: ? Author Type: LICENSED NURSE Type: Progress Notes Filed: 05/28/2025 07:38 Note Text: Scan on 05/26/2025 10:17 PM by ProviderGaudencio PA-C: Consultation - [facility] MedicineTri[facility] History of Present illness Narrative* Orly Richardson LPN - 05/28/2025 7:38 AM EDT Scan on 05/26/2025 10:17 PM by Provider, VIN Ratliff: Consultation - Emergency Medicine documented in this encounterC[facility] Clinic [facility]07-19-2025 Radiology Diagnostic study note [facility] Imaging Services [address], [place] [id number] CTA Chest W/WO Contrast MR#: [id number] Acct: [id number] Name: ANNE MARIE GARZA Rep #: [id number] : 1940 F 84 From: Abe Bowen DO PCP: Dr. Max Rodriguez MD Status: [facility] Study:CTA Chest W/WO Contrast Date of Exam: 05/26/25 Exam# [id number] Ordering Dr: Mynor Emery DO PROCEDURE: CTA CHEST W/WO CONTRAST 05/26/2025 REASON FOR EXAM: SOB, ELEVATED DIMER Chest pain TECHNIQUE: CTA CHEST W/WO CONTRAST Multiplanar Sagittal and Coronal images were obtained. CONTRAST: Isovue 370 VOLUME: 95 mL One or more dose reduction techniques were used (e.g., Automated exposure control, adjustment of the mA and/or kV according to patient size, use of iterative reconstruction technique). RADIATION DOSE SUMMARY: CTDlvol: 20.1 mGy DLP: 287.4 mGycm COMPARISON: Chest x-ray dated 12/13/2023 # of known CTs in the past 12 months: 1 # of known Cardiac Nuclear Medicine Studies in the past 12 months: 0 FINDINGS: Thoracic Aorta: Arteriosclerotic vascular disease of the aorta is noted. There is no thoracic aortadissection or aneurysm. Heart: Heart size and configuration are within normal limits. Pulmonary Vessels: There is no filling defect identified in the main pulmonary arteries are major segmental branches to suggest pulmonary embolus. Hardware: None Lymph nodes: There is no mediastinal, hilar or axillary adenopathy. Lungs and Airways: There are linear densities identified in the lung bases bilaterally most likely representing either atelectasis or parenchymal scarring. There is no consolidative process, mass, pneumonic infiltrate or pneumothorax. There are no pleural effusions. Trachea and mainstem bronchi appear patent Pleura: Unremarkable Upper Abdomen: The visualized portions of the liver, spleen, pancreas, adrenal glands, and kidneys appear unremarkable. Bones: Degenerative changes of the thoracic spine are noted. There is a slight increased kyphotic curvature of the thoracic spine. CT/CTA Chest W/WO Contrast IMPRESSION: No evidence of pulmonary embolus. Atelectasis versus parenchymal scarring lung bases bilaterally. Arteriosclerotic vascular disease of the aorta. Reading Location: [id number] CC: Dr. Max Rodriguez MD; Dr. Mynor Emery DO ~ Museum Attendant: Signed [facility]07-17-2025 Telephone encounter Note* Telephone Encounter - Orly Richardson LPN - 05/24/2025 10:25 AM EDT Pt's daughter Vidya notified of same, verbalizes understanding. Orly Richardson LPN [facility]07-17-2025 Miscellaneous Notes* Telephone Encounter - Orly Richardson LPN - 05/24/2025 10:25 AM EDT Pt's daughter Vidya notified of same, verbalizes understanding. Orly Richardson LPN * Telephone Encounter - Nicole Zhang APRN.CURRENCY EXCHANGE SPECIALIST - 05/24/2025 7:59 AM EDT Please let patient know her CT cardiac score is very elevated and she should follow up with cardiology as scheduled. documented in this encounterCleveland Clinic [facility]07-17-2025 Telephone encounter Note * Telephone Encounter - Nicole Zhang APRN.CNP - 05/24/2025 7:59 AM EDT Please let patient know her CT cardiac score is very elevated and she should follow up with cardiology as scheduled. [facility]07-14-2025 Instructions* Patient Instructions* Max Rodriguez MD - 05/21/2025 9:37 AM EDT Please get labs on or after 08/08/2025 documented in this encounterCleveland Clinic [facility]07-14-2025 NoteHNO ID: [id number] Author: MAX RODRIGUEZ MD Service: ? Author [...] kenalog and 1.5 ml 2% lido [facility] Procedure note* Max Rodriguez MD - 05/21/2025 9:17 AM EDTProcedure(s): LARGE JOINT INJECTION/ARTHROCENTESIS Pre-Procedure Diagnose(s): Arthritis of [...] and 1.5 ml 2% lido without Epi [facility]07-14-2025 Procedure note* Max Rodriguez MD - 05/21/2025 9:17 AM EDTProcedure(s): LARGE JOINT INJECTION/ARTHROCENTESIS Pre-Procedure Diagnose(s): Arthritis of [...] 2% lido without Epi documented in this encounterC[facility]07-14-2025 NoteHNO ID: [id number] Author: MAX RODRIGUEZ MD Service: ? Author [...] hypertension 01/26/2017 Graves disease Heart attack (HCC) [place] stent in heart History of COVID-19 07/08/202205/2022 History of non-ST elevation myocardial infarction (NSTEMI) 01/19/201001/2010 Intradermal nevus 12/30/2014 right inferrior medial breast Keratosis, inflamed seborrheic 12/30/2014 right upper back Left carpal tunnel syndrome 01/04/[address] 12/03/2021 Daughter Truong is DPOA Low vitamin B12 level 04/06/2014 Lumbar radicular pain 05/26/2018 Added automatically from request for surgery [id number] Lump or mass in breast 01/20/2023 Patient [...] aches Zanaflex [Tizanidin* Ot (more content not included)...[facility] 05-21-2025 History of Present illness Narrative* Max Rodriguez MD - 05/21/2025 8:55 AM EDT Chief Complaint Patient presents with: Bilateral Knee [...] hypertension 01/26/2017 Graves disease Heart attack (HCC) [place] stent in heart History of COVID-19 07/08/202205/2022 History of non-ST elevation myocardial infarction (NSTEMI) 01/19/201001/2010 Intradermal nevus 12/30/2014 right inferrior medial breast Keratosis, inflamed seborrheic 12/30/2014 right upper back Left carpal tunnel syndrome 01/04/[address] 12/03/2021 Daughter Truong is DPOA Low vitamin B12 level 04/06/2014 Lumbar radicular pain 05/26/2018 Added automatically from request for surgery [id number] Lump or mass in breast 01/20/2023 Patient [...] needed for pain for up to 90days. amLODIPine (NORVASC) 10 mg tablet Take 1 tablet by mouth once daily. Increased by [facility] 03/2025 for SOB metoprolol succinate ER (TOPROL XL) 50 mg 24 hr tablet Take 1 tablet by mouth once daily. Decreasedby [facility] 03/2025 due to SOB DULoxetine (CYMBALTA) [...] in no acute distress, well-hydrated, well nourished. andObese. Musculoskeletal: some arthritic changes. Legs and feet do not feel cold cap refill was normal.. Wasnot able to palpate the pulse in her [...] ICD10: R23.0 Check - PVR LEG W/EXC EYAL VAS LAB 4. Decreased pulses in feet - ICD9: 785.9, ICD10: R09.89 Check - PVR LEG W/EXC EYAL VAS LAB Max Rodriguez MD F/u next routine Max Rodriguez MD Recording using [employer] software for draft documentation of the visit was discussed with the patient/authorized community health program representative; all questions welcomed and answered. Patient/authorized community health program representative agreed to proceed documented in this encounterCleveland Clinic [facility]07-11-2025 Instructions* Patient Instructions* Nicole Zhang, ASHLY.CURRENCY EXCHANGE SPECIALIST - 05/18/2025 12:30 PM EDT Screening schedule The following prevention plan is recommended: Advance Directive Discussion due on 11/08/2024 Medicare Advantage Annual Wellness Visit due on 11/08/2024 Covid-19 Vaccine() due on 01/30/2025 WHAT YOU CAN DO [...] review all the medicines you take, even xsjk-vxe-wjngyrd medicines. As you get older, the way [...] have certain medical conditions. documented in this encounterC[facility]07-11-2025 NoteHNO ID: [id number] Author: NICOLE ZHANG APRN.CNP Service: ? Author [...] General (Family Medicine) Nicole Zhang APRN.FELIPA as Air Quality Specialist (Family Medicine) Dora Whitman PA-C as Air Quality Specialist (Family Medicine) Medical/Family history review Reviewed and [...] hypertension 01/26/2017 Graves disease Heart attack (HCC) [place] stent in heart History of COVID-19 07/08/202205/2022 History of non-ST elevation myocardial infarction (NSTEMI) 01/19/201001/2010 Intradermal nevus 12/30/2014 right inferrior medial breast Keratosis, inflamed seborrheic 12/30/2014 right upper back Left carpal tunnel syndrome 01/04/[address] 12/03/2021 Daughter Truong is DPOA Low vitamin B12 level 04/06/2014 Lumbar radicular pain 05/26/2018 Added automatically from request for surgery [id number] Lump or mass in breast 01/20/2023 Patient [...] Class I, BMI 30-34.9 (more content not included)...[facility]07-11-2025 History of Present illness Narrative* Nicole Zhang, ASHLY.CURRENCY EXCHANGE SPECIALIST - 05/18/2025 12:22 PM EDT Images from the original note [...] General (Family Medicine) Nicole Zhang APRN.FELIPA as Air Quality Specialist (Family Medicine) Dora Whitman PA-C as Air Quality Specialist (Family Medicine) Medical/Family history review Reviewed and [...] hypertension 01/26/2017 Graves disease Heart attack (HCC) [place] stent in heart History of COVID-19 07/08/202205/2022 History of non-ST elevation myocardial infarction (NSTEMI) 01/19/201001/2010 Intradermal nevus 12/30/2014 right inferrior medial breast Keratosis, inflamed seborrheic 12/30/2014 right upper back Left carpal tunnel syndrome 01/04/[address] 12/03/2021 Daughter Truong is DPOA Low vitamin B12 level 04/06/2014 Lumbar radicular pain 05/26/2018 Added automatically from request for surgery [id number] Lump or mass in breast 01/20/2023 Patient [...] needed for pain for up to 90days. amLODIPine (NORVASC) 10 mg tablet Take 1 tablet by mouth once daily. Increased by [facility] 03/2025 for SOB metoprolol succinate ER (TOPROL XL) 50 mg 24 hr tablet Take 1 tablet by mouth once daily. Decreasedby [facility] 03/2025 due to SOB DULoxetine (CYMBALTA) [...] however patient continues to have episodes of shortnessof breath and anginal chest pain. No improvement [...] stress test and unchanged echo. Will order CTcardiac calcium score while awaiting cardiology follow up. 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 Left. Condition: serious, chronic, stable. Status post Avastin x2 elsewhere, last 08-18-[address] Gonzalez due in Q 7-8 weeks. Status post Avastin here, last 02-25-2024 assessment Nexdtve age-related mclr degn, r ight eye, early dry stage impression Nexdtve age-related [...] Bilateral. Condition: chronic [facility] Work Phone: 1(446) 787-871105-16-2025 History of Present illness Narrative* Encounter Date [...] last injection to come to this office. [facility] Work Phone: 1(453) 786-210105-16-2025 Instructions* Date Instruction Additional Infor magnus Return in Related to Exdtv e age-rel [...] actv chrdl neovas [facility] Work Phone: 1(726) 505-181105-15-2025 NoteHNO ID: [id number] Author: ORLY RICHARDSON LPN Service: ? Author Type: LICENSED NURSE Type: Progress Notes Filed: 03/22/2025 10:15 Note Text: Scan on 03/22/2025 8:43 AM by Provider, Gaudencio, PAJamesC: Consultation - [facility]Tri[facility] History of Present illness Narrative* Orly Richardson LPN - 03/22/2025 10:15 AM EDT Scan on 03/22/2025 8:43 AM by ProviderGaudencio PA-C: Consultation - Cardiology documented in this encounterCleveland Clinic Foundation05-15-2025 Evaluation note* Diagnosis Onset Date Resolution Status Admit Date Chronic diastolic (congestive) heart failure chronic March 082024 7:54am Essential hypertension chronic Ma y 2024 7:54am History of coronary artery stent placement December 21, 2019 chronic March 22 7:54am HLD (hyperlipidemia) chronic March 22, 2025 7:54am Dyspnea inactive March 22, 2025 7:54am [facility] Work Phone: 1(993) 295-511605-15-2025 Evaluation note* Diagnosis Onset Date Resolution Status Admit Date Chronic diastolic (congestive) heart failure chronic March 082024 7:54am Essential hypertension chronic Ma y 2024 7:54am History of coronary artery stent placement December 21, 2019 chronic March 22 7:54am HLD (hyperlipidemia) chronic March 22, 2025 7:54am Dyspnea inactive March 22, 2025 7:54am Chronic diastolic (congestive) heart failure chronic May 30, 2025 1:50pm Essential hypertension chronic Ju ly 2024 1:50pm History of coronary artery stent placement December 21, 2019 chronic May 30, 2 025 1:50pm HLD (hyperlipidemia) chronic May 30, 2025 1:50pm [facility] Work Phone: 1(496) 744-129105-15-2025 Evaluation note* Diagnosis Onset Date Resolution Status Admit Date Chronic diastolic (congestive) heart failure chronic March 082024 7:54am Essential hypertension chronic Ma y 2024 7:54am History of coronary artery stent placement December 21, 2019 chronic March 22 7:54am HLD (hyperlipidemia) chronic March 22, 2025 7:54am Dyspnea inactive March 22, 2025 7:54am Chronic diastolic (congestive) heart failure chronic May 30, 2025 1:50pm Dyspnea on minimal exertion chronic May 30, 2025 1:50pm Essential hypertension chronic Ju ly 2024 1:50pm History of coronary artery stent placement December 21, 2019 chronic May 30, 2 025 1:50pm HLD (hyperlipidemia) chronic May 30, 2025 1:50pm Acute hypoxic respiratory failure acute 2025 9:53pm Dyspnea on exertion acute 2025 9:53pm Generalized weakness acute 2025 9:53pm History of ESBL E. coli infection acute 2025 9:53pm Essential hypertension chronic Ju ly 2024 9:53pm HLD (hyperlipidemia) chronic 2025 9:53pm [facility] Work Phone: 1([phone]) 505-126705-15-2025 Evaluation note* Diagnosis Onset Date Resolution Status Admit Date Chronic diastolic (congestive) heart failure chronic March 082024 7:54am Essential hypertension chronic Ma y 2024 7:54am History of coronary artery stent placement December 21, 2019 chronic March 22 7:54am HLD (hyperlipidemia) chronic March 22, 2025 7:54am Dyspnea inactive March 22, 2025 7:54am Chronic diastolic (congestive) heart failure chronic May 30, 2025 1:50pm Dyspnea on minimal exertion chronic May 30, 2025 1:50pm Essential hypertension chronic Ju ly 2024 1:50pm History of coronary artery stent placement December 21, 2019 chronic May 30, 2 025 1:50pm HLD (hyperlipidemia) chronic May 30, 2025 1:50pm Acute hypoxic respiratory failure acute 2025 9:53pm Dyspnea on exertion acute 2025 9:53pm Generalized weakness acute 2025 9:53pm History of ESBL E. coli infection acute 2025 9:53pm Infection due to ESBL-producing Escherichia coli acute 2025 9:53pm Essential hypertension chronic Ju ly 2024 9:53pm HLD (hyperlipidemia) chronic 2025 9:53pm [facility] Work Phone: 1([phone]) 778-589105-15-2025 Evaluation note* Diagnosis Onset Date Resolution Status Admit Date Chronic diastolic (congestive) heart failure chronic March 082024 7:54am History of coronary artery stent placement December 21, 2019 chronic March 22 7:54am Dyspnea inactive March 22, 2025 7:54am Essential hypertension inactive Nj y 2024 7:54am HLD (hyperlipidemia) inactive March 22, 2025 7:54am Chronic diastolic (congestive) heart failure chronic May 30, 2025 1:50pm Dyspnea on minimal exertion chronic May 30, 2025 1:50pm History of coronary artery stent placement December 21, 2019 chronic May 30, 1:50pm Essential hypertension inactive Ju ly 2024 1:50pm HLD (hyperlipidemia) inactive May 30, 2025 1:50pm Dyspnea on exertion acute 2025 9:53pm Acute hypoxic respiratory failure resolved 2025 9:53pm Generalized weakness resolved 2025 9:53pm Infection due to ESBL-producing Escherichia coli resolved 2025 9:53pm Essential hypertension inactive Ju ly 2024 9:53pm History of ESBL E. coli infection inactive 2025 9:53pm HLD (hyperlipidemia) inactive 2025 9:53pm [facility] Work Phone: 1(173) 983-410505-15-2025 Evaluation note* Diagnosis Onset Date Resolution Status Admit Date Chronic diastolic (congestive) heart failure chronic March 082024 7:54am History of coronary artery stent placement December 21, 2019 chronic March 22 7:54am Dyspnea inactive March 22, 2025 7:54am Essential hypertension inactive Angel Luis frias 2024 7:54am HLD (hyperlipidemia) inactive March 22, 2025 7:54am Chronic diastolic (congestive) heart failure chronic May 30, 2025 1:50pm Dyspnea on minimal exertion chronic May 30, 2025 1:50pm History of coronary artery stent placement December 21, 2019 chronic May 30, 2 025 1:50pm Essential hypertension inactive Ju ly 2024 1:50pm HLD (hyperlipidemia) inactive May 30, 2025 1:50pm Dyspnea on exertion acute 2025 9:53pm Acute hypoxic respiratory failure resolved 2025 9:53pm Generalized weakness resolved 2025 9:53pm Infection due to ESBL-producing Escherichia coli resolved 2025 9:53pm Essential hypertension inactive Pat ly 2024 9:53pm History of ESBL E. coli infection inactive 2025 9:53pm HLD (hyperlipidemia) inactive 2025 9:53pm Atrial fibrillation with RVR acute June 07, 2025 1:56pm Dyspnea on exertion acute June 07, 2025 1:56pm History of coronary artery stent placement December 21, 2019 chronic June 07, 2 025 1:56pm [facility] Work Phone: 1(978) 270-597605-15-2025 Evaluation note* Diagnosis Onset Date Resolution Status Admit Date Chronic diastolic (congestive) heart failure chronic March 22, 2025 7 :54am History of coronary artery stent placement December 21, 2019 chronic March 082024 7:54am Dyspnea inactive March 22, 2025 7:54am Essential hypertension inactive Angel Luis frias 2024 7:54am HLD (hyperlipidemia) inactive March 22, 2025 7:54am Chronic diastolic (congestive) heart failure chronic May 30, 2025 1:50pm Dyspnea on minimal exertion chronic May 30, 2025 1:50pm History of coronary artery stent placement December 21, 2019 chronic May 30, 2025 1:50pm Essential hypertension inactive Ju ly 2024 1:50pm HLD (hyperlipidemia) inactive May 30, 2025 1:50pm Dyspnea on exertion acute 2025 9:53pm Acute hypoxic respiratory failure resolved June 04, 2 025 9:53pm Generalized weakness resolved 2025 9:53pm Infection due to ESBL-producing Escherichia coli resolved 2025 9:53pm Essential hypertension inactive Ju 2024 9:53pm History of ESBL E. coli infection inactive 2025 9:53pm HLD (hyperlipidemia) inactive 2025 9:53pm Atrial fibrillation with RVR acute June 07, 2025 1:56pm Dyspnea on exertion acute June 07, 2025 1:56pm History of coronary artery stent placement December 21, 2019 chronic June 07, 2025 1:56pm Atrial fibrillation with RVR acute July 19, 2025 8:33am Dyspnea on exertion acute Septe mber 2024 8:33am PAF (paroxysmal atrial fibrillation) acute July 19, 2025 8:33am History of coronary artery stent placement December 21, 2019 chronic Septe mber 2024 8:33am [facility] Work Phone: 1(732) 807-993904-02-2025 History of Present illness Narrative* Papi Beltran MD - 02/07/2025 10:40 AM EDT Images from the original note were not included. CONSULT ORTHOPAEDIC: HIP PRIMARY CARE PHYSICIAN: Max Rodriguez MD REFERRING PROVIDER: Papi Beltran [facility] [place] [address] ASSESSMENT & PLAN This is an 84-year-old [...] intermittent. She has done physical therapy through [facility] but continues to have pain with this. [...] hypertension 01/26/2017 Graves disease Heart attack (HCC) [place] stent in heart History of COVID-19 07/08/202205/2022 History of non-ST elevation myocardial infarction (NSTEMI) 01/19/201001/2010 Intradermal nevus 12/30/2014 right inferrior medial breast Keratosis, inflamed seborrheic 12/30/2014 right upper back Left carpal tunnel syndrome 01/04/[address] 12/03/2021 Daughter Truong is DPOA Low vitamin B12 level 04/06/2014 Lumbar radicular pain 05/26/2018 Added automatically from request for surgery [id number] Lump or mass in breast 01/20/2023 Patient [...] compartment severe narrowing. Right hip x-ray shows Aye components cementless in place with no signs of loosening or changes of the previous x-rays. There is no subsidence of the head is concentrically inside the acetabulum. I spent a total of approximately 35 minutes on the date of the service which included preparing to see the patient, [id number] patient care, completing clinical documentation, obtaining and/or [...] 2025 TIME: 7:35 AM documented in this encounterCleveland Clinic Foundation04-02-2025 NoteHNO ID: [id number] Author: PAPI BELTRAN MD Service: ? Author Type: Physician Type: Progress Notes Filed: 02/07/2025 10:43 Note Text: CONSULT ORTHOPAEDIC: HIP PRIMARY CARE PHYSICIAN: Max Rodriguez MD REFERRING PROVIDER: Papi Beltran [address] [place] [address] ASSESSMENT AND PLAN This is an 84-year-old [...] intermittent. She has done physical therapy through [facility] but continues to have pain with this. [...] Radicular Pain Degenerative D (more content not included)...[facility] 02-07-2025 History of Present illness Narrative* [...] PATIENT PRESENTS WITH AN IMPLANTABLE OR ATTACHED EXPANDER: No RADIOLOGY DEPARTMENT: General X-ray: Exam(s) Completed: Pelvis X-Ray: Pelvis with Hip Right and Wt.Bearing Lower Extremity X-Ray(s): Leg Length PERIPHERAL IV DATA: Not applicable SIGNED BY: Cody Li February 07, 2025 10:27 AM documented in this encounterCleveland Clinic Foundation04-02-2025 NoteHNO ID: [id number] Author: MAYLIN GARCIA Tech Service: Radiology Author Type: Senior Sales Representative Type: Progress Notes Filed: 02/07/2025 10:27 Note [...] PATIENT PRESENTS WITH AN IMPLANTABLE OR ATTACHED EXPANDER: No RADIOLOGY DEPARTMENT: General X-ray: Exam(s) Completed: Pelvis X-Ray: Pelvis with Hip Right and Wt. Bearing Lower Extremity X-Ray(s): Leg Length PERIPHERAL IV DATA: Not applicable SIGNED BY: Cody Li February 07, 2025 10:27 AMMetrohealth Main Campus Medical [id number] NoteHNO ID: [id number] Author: ORLY RICHARDSON LPN Service: ? Author Type: LICENSED NURSE Type: Progress Notes Filed: 02/05/2025 15:16 Note Text: Scan on 02/01/2025 11:40 AM by ProviderGaudencio PA-C: Hematology Scan on 02/01/2025 1:14 PM by ProviderGaudencio PA-C: ChemistryTrihealth [facility]03-31-2025 History of Present illness Narrative* Orly Richardson LPN - 02/05/2025 3:15 PM EDT Scan on 02/01/2025 11:40 AM by ProviderGaudencio PA-C: Hematology Scan on 02/01/2025 1:14 PM by ProviderGaudencio PA-C: Chemistry documented in this encounterCleveland Clinic Foundation03-21-2025 Telephone encounter Note * Telephone Encounter - Katherin Schmidt MA - 01/26/2025 3:28 PM EDT Spoke with daughter and gave results and instruction. Voiced understanding. Faxed information to Dr. Rasmussen's office. Katherin Schmidt MA [facility]03-21-2025 Miscellaneous Notes* Telephone Encounter - Katherin Schmidt [...] considered for heart cath. documented in this encounterCleveland Clinic Foundation03-21-2025 Telephone encounter Note * Telephone Encounter - [...] her to be considered for heart cath. [facility]03-21-2025 Instructions* Patient Instructions* Max Rodriguez MD - 01/26/2025 10:43 AM EDT Please get back on the B12 1000 mcg once a day documented in this encounterCleveland Clinic Foundation03-21-2025 NoteHNO ID: [id number] Author: MAX RODRIGUEZ MD Service: ? Author [...] hypertension 01/26/2017 Graves disease Heart attack (HCC) [place] stent in heart History of COVID-19 07/08/202205/2022 History of non-ST elevation myocardial infarction (NSTEMI) 01/19/201001/2010 Intradermal nevus 12/30/2014 right inferrior medial breast Keratosis, inflamed seborrheic 12/30/2014 right upper back Left carpal tunnel syndrome 01/04/[address] 12/03/2021 Daughter Truong is DPOA Low vitamin B12 level 04/06/2014 Lumbar radicular pain 05/26/2018 Added automatically from request for surgery [id number] Lump or mass in breast 01/20/2023 Patient [...] SURGICAL HISTORY Procedure Laterality (more content not included)...[facility] 01-26-2025 History of Present illness Narrative* [...] hypertension 01/26/2017 Graves disease Heart attack (HCC) [place] stent in heart History of COVID-19 07/08/202205/2022 History of non-ST elevation myocardial infarction (NSTEMI) 01/19/201001/2010 Intradermal nevus 12/30/2014 right inferrior medial breast Keratosis, inflamed seborrheic 12/30/2014 right upper back Left carpal tunnel syndrome 01/04/[address] 12/03/2021 Daughter Truong is DPOA Low vitamin B12 level 04/06/2014 Lumbar radicular pain 05/26/2018 Added automatically from request for surgery [id number] Lump or mass in breast 01/20/2023 Patient [...] tab by mouth once a day Wed-Wed, 1/ on Wed and none on Wednesday. Take [...] However anticipate need for Cath per cardio ([facility]) 2. Lymphadenopathy - ICD9: 785.6, ICD10: [...] which included preparing to see the patient, [id number] patient care, completing clinical documentation, performing a medically appropriate examination, counseling and educating the patient/family/caregiver and ordering medications, tests, or procedures. Max Rordiguez MD documented in this encounterCleveland Clinic Foundation03-20-2025 Telephone encounter Note * Telephone Encounter - [...] states that she will. Yenny Akins LPN [facility]03-20-2025 Miscellaneous Notes* Telephone Encounter - YENNY AKINS [...] (Copy to Dr. Brent Haines for FYI) * Telephone Encounter - Orly Richardson LPN - 01/25/2025 7:56 AM EDT Received results of pt's stress test done at [facility] ordered by PCP. Orly Richardson LPN Scan on 01/24/2025 6:15 PM by Provider, External, PA-C: Stress Test documented in this encounterCleveland Clinic Foundation03-20-2025 Telephone encounter Note * Telephone Encounter - Max Rodriguez MD - 01/25/2025 9:01 AM EDT Let daughter know stress test was normal. (Copy to Dr. Brent Haines for FYI) [facility]03-20-2025 Telephone encounter Note* Telephone Encounter - Orly Richardson LPN - 01/25/2025 7:56 AM EDT Received results of pt's stress test done at [facility] ordered by PCP. Orly Richardson LPN Scan on 01/24/2025 6:15 PM by Provider, External, PA-C: Stress Test [facility]03-17-2025 History of Present illness Narrative* Angela Haines MD - 01/22/2025 12:45 PM EDT Images from the original note were not included. . [facility] [place] Note Patient name: Anne Marie Garza PCP: Max Rodriguez MD Referring Physician: Same Consultation requested by Dr. Rodriguez for an opinion regarding dyspnea and cough. My final recommendations will be communicated back to the requesting physician by way of shared Medical record or letter to requesting physician via [place] mail. CC: cough/SOB HPI: Anne Marie Garza 84 year old female former greater than 25-mmif-pzux smoker quitting in 2021, nicotine vaping until [...] View (Portable) Date of Exam: 12/13/23 Exam# [id number] Ordering Dr: Flavio Echavarria MD STUDY: X-RAY [...] hypertension 01/26/2017 Graves disease Heart attack (HCC) [place] stent in heart History of COVID-19 07/08/202205/2022 History of non-ST elevation myocardial infarction (NSTEMI) 01/19/201001/2010 Intradermal nevus 12/30/2014 right inferrior medial breast Keratosis, inflamed seborrheic 12/30/2014 right upper back Left carpal tunnel syndrome 01/04/[address] 12/03/2021 Daughter Truong is DPOA Low vitamin B12 level 04/06/2014 Lumbar radicular pain 05/26/2018 Added automatically from request for surgery [id number] Lump or mass in breast 01/20/2023 Patient [...] month Drug use: No 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 Author Type: Physician Type: Progress Notes Filed: 01/22/2025 14:10 Note Text: . [facility] [place] [facility] Patient name: Anne Marie Garza PCP: Max Rodriguez MD Referring Physician: Same Consultation requested by Dr. Rodriguez for an opinion regarding dyspnea and cough. My final recommendations will be communicated back to the requesting physician by way of shared Medical record or letter to requesting physician via [place] mail. CC: cough/SOB HPI: Anne Marie Garza 84 year old female former greater than 74-gpnh-elfd smoker quitting in 2021, nicotine vaping until [...] View (Portable) Date of Exam: 12/13/23 Exam# [id number] Ordering Dr: Flavio Echavarria MD STUDY: X-RAY [...] wall excised 08/2019 Essential hypertension 01/26/2017 Graves (more content not included)...[facility]03-17-2025 Note HNO ID: [id number] Author: KENISHA BOWENS RPFT Service: ? Author Type: Respiratory Therapist Type: Progress Notes Filed: 01/22/2025 11:08 Note Text: PULM FUNCTION: Provider: Angela Haines MD Assisting Tech: Kenisha Bowens RPFT Spirometry: 1 DLCO[facility] History of Present illness Narrative * Kenisha Bowens RPFT - 01/22/2025 11:05 AM EDT PULM FUNCTION: Provider: Angela Haines MD Assisting Tech: Kenisha Bowens RPFT Spirometry: 1 DLCO: 1 documented in this encounterCleveland Clinic Foundation03-14-2025 NoteHNO ID: [id number] Author: MAX RODRIGUEZ MD Service: ? Author [...] 2% Lido without Epi with 60 mg kenalog.[facility] 01-19-2025 Procedure note* Max Rodriguez MD [...] Lido without Epi with 60 mg kenalog. [facility]03-14-2025 Procedure note* Max Rodriguez MD - 01/19/2025 [...] with 60 mg kenalog. documented in this encounterCleveland Clinic Foundation03-14-2025 NoteHNO ID: [id number] Author: MAX RODRIGUEZ MD Service: ? Author [...] esophagitis 07/08/2022 Graves disease Heart attack (HCC) [place] stent in heart History of COVID-19 07/08/202205/2022 History of non-ST elevation myocardial infarction (NSTEMI) 01/19/201001/2010 Intradermal nevus 12/30/2014 right inferrior medial breast Keratosis, inflamed seborrheic 12/30/2014 right upper back Left carpal tunnel syndrome 01/04/[address] 12/03/2021 Daughter Truong is DPOA Low vitamin B12 level 04/06/2014 Lumbar radicular pain 05/26/2018 Added automatically from request for surgery [id number] Lump or mass in breast 01/20/2023 Patient [...] major depressive disorder, in partial remission ([facility]) 04/14/2016 Severe obstructive sleep apnea AHI 32.5 [...] Sig cefADROxil (DURICEF) 500 (more content not included)...[facility]03-14-20[facility] History of Present illness Narrative* Max [...] esophagitis 07/08/2022 Graves disease Heart attack (HCC) [place] stent in heart History of COVID-19 07/08/202205/2022 History of non-ST elevation myocardial infarction (NSTEMI) 01/19/201001/2010 Intradermal nevus 12/30/2014 right inferrior medial breast Keratosis, inflamed seborrheic 12/30/2014 right upper back Left carpal tunnel syndrome 01/04/[address] 12/03/2021 Daughter Truong is DPOA Low vitamin B12 level 04/06/2014 Lumbar radicular pain 05/26/2018 Added automatically from request for surgery [id number] Lump or mass in breast 01/20/2023 Patient [...] major depressive disorder, in partial remission ([facility]) 04/14/2016 Severe obstructive sleep apnea AHI 32.5 [...] injections. Max Rodriguez MD documented in this encounterCleveland Clinic Foundation03-12-2025 Telephone encounter Note * Telephone Encounter - Beau Singh RN - 01/17/2025 8:08 AM EDT Phoned patient and given provider message to daughterKailyn, with verbalized understanding. Daughter agreeable. [facility]03-12-2025 Miscellaneous Notes* Telephone Encounter - Beau Singh RN - 01/17/2025 8:08 AM EDT Phoned patient and given provider message to Kailyn kessler, with verbalized understanding. Daughter agreeable. * Telephone Encounter - Max Rodriguez MD - 01/16/2025 1:44 PM EDT Let patient know her upper GI x-ray was unremarkable. Placed order for her to see Dr. Macias for possible scope. * Telephone Encounter - Orly Richardson LPN - 01/16/2025 12:58 PM EDT Received results of pt's upper GI/barium swallow test done at [facility] and ordered by pcp. Orly Richardson LPN Scan on 01/16/2025 11:34 AM by ProviderGaudencio PA-C: X-ray documented in this encounterCleveland Clinic Foundation03-11-2025 Telephone encounter Note * Telephone Encounter - Max Rodriguez MD - 01/16/2025 1:44 PM EDT Let patient know her upper GI x-ray was unremarkable. Placed order for her to see Dr. Macias for possible scope. [facility]03-11-2025 Telephone encounter Note* Telephone Encounter - Orly Richardson LPN - 01/16/2025 12:58 PM EDT Received results of pt's upper GI/barium swallow test done at [facility] and ordered by pcp. Orly Richardson LPN Scan on 01/16/2025 11:34 AM by ProviderGaudencio PA-C: X-ray [facility]03-11-2025 Radiology Diagnostic study note [facility] Imaging Services [address] [place] [address] Upper GI w/BA Swallow MR#: [id number] Acct: [id number] Name: ANNE MARIE GARZA Rep #: [id number] : 1940 F 84 From: Librado Lee MD PCP: Dr. Max Rodriguez MD Status: [facility] CLI Study:Upper GI w/BA Swallow Date of Exam: 01/16/25 Exam# [id number] Ordering Dr: Miah Rodriguez MD PROCEDURE: UPPER [...] esophagram and upper GI series. Reading Location: [place] [address] CC: Dr. Max Rodriguez MD ~ Museum Attendant: Signed [facility]03-05-2025 History of Present illness Narrative* Max Rodriguez [...] esophagitis 07/08/2022 Graves disease Heart attack (HCC) [place] stent in heart History of COVID-19 07/08/202205/2022 History of non-ST elevation myocardial infarction (NSTEMI) 01/19/201001/2010 Intradermal nevus 12/30/2014 right inferrior medial breast Keratosis, inflamed seborrheic 12/30/2014 right upper back Left carpal tunnel syndrome 01/04/[address] 12/03/2021 Daughter Truong is DPOA Low vitamin B12 level 04/06/2014 Lumbar radicular pain 05/26/2018 Added automatically from request for surgery [id number] Lump or mass in breast 01/20/2023 Patient [...] R22.1 - as above. [facility] - if still present will [...] - will get a swallowing study at [facility]. May need to see GI for [...] which included preparing to see the patient, [id number]-dh-[id number] patient care, completing clinical documentation, performing a medically appropriate examination, counseling and educating the patient/family/caregiver and ordering medications, tests, or procedures. Max Rodriguez MD documented in this encounterCleveland Clinic Foundation03-05-2025 NoteHNO ID: [id number] Author: MAX RODRIGUEZ MD Service: ? Author [...] esophagitis 07/08/2022 Graves disease Heart attack (HCC) [place] stent in heart History of COVID-19 07/08/202205/2022 History of non-ST elevation myocardial infarction (NSTEMI) 01/19/201001/2010 Intradermal nevus 12/30/2014 right inferrior medial breast Keratosis, inflamed seborrheic 12/30/2014 right upper back Left carpal tunnel syndrome 01/04/[address] 12/03/2021 Daughter Truong is DPOA Low vitamin B12 level 04/06/2014 Lumbar radicular pain 05/26/2018 Added automatically from request for surgery [id number] Lump or mass in breast 01/20/2023 Patient [...] NRV CARPAL TUNNE Left (more content not included)...[facility]03-03-2025 Telephone encounter Note* Telephone Encounter - [...] Richardson LPN January 08, 2025 8:53 AM [facility]03-03-2025 Miscellaneous Notes* Telephone Encounter - Orly Richardson [...] 08, 2025 8:53 AM documented in this encounterCleveland Clinic Foundation02-26-2025 Miscellaneous Notes* Telephone Encounter - Max Rodriguez [...] 03, 2025 8:38 AM documented in this encounterCleveland Clinic Foundation02-26-2025 Telephone encounter Note * Telephone Encounter - [...] was identified. 01/03/2025 by Max Rodriguez MD [facility]02-26-2025 Telephone encounter Note* Telephone Encounter - Marbella [...] Orlando LPN January 03, 2025 8:38 AM [facility]01-20-2025 Telephone encounter Note* Telephone Encounter - Orly [...] Richardson LPN November 27, 2024 7:53 AM [facility]01-20-2025 Miscellaneous Notes* Telephone Encounter - Orly Richardson [...] 27, 2024 7:53 AM documented in this encounterCleveland Clinic Foundation12-04-2024 Telephone encounter Note * Telephone Encounter - Orly Richardson LPN - 10/11/2024 11:43 AM EST Pt's daughter notified of results and instructions. She verbalizes understanding. She advises that she has taken over giving pt her medications. She thinks that pt was getting confused and not takingthem correctly. Orly Richardson LPN [facility]12-04-2024 Miscellaneous Notes* Telephone Encounter - Orly Richardson [...] med. Dora Whitman PA-C documented in this encounterCleveland Clinic Foundation12-04-2024 Telephone encounter Note * Telephone Encounter - Dora Whitman PA-C - 10/11/2024 11:28 AM EST Tsh is now in normal range. Continue current dosing of thyroid med. Dora Whitman PA-C [facility] Work Phone: [phone] Telephone encounter Note* Telephone Encounter - Lilia [...] tab by mouth once a day Wed-Wed, 1/ on Sat and none on Wednesday. Take on empty stomach. For Thyroid. Lilia Candelaria LPN October 09, 2024 4:28 PM [facility]12-02-2024 Miscellaneous Notes* Telephone Encounter - Lilia Candelaria [...] tab by mouth once a day Wed-Wed, / on Sat and none on Wednesday. Take on empty stomach. For Thyroid. Lilia Candelaria LPN October 09, 2024 4:28 PM documented in this encounterCleveland Clinic Foundation11-29-2024 Telephone encounter Note * Telephone Encounter - Nicole Zhang APRN.CNP - 10/06/2024 1:59 PM EST PDMP reviewed. Patient requested and refilled prescriptions appropriately. No suspicious activity noted. [facility]11-29-2024 Miscellaneous Notes* Telephone Encounter - Nicole Zhang [...] Lott LPN October 06, 2024 11:09 AM documented in this encounterCleveland Clinic Foundation11-29-2024 Telephone encounter Note * Telephone Encounter - [...] Lott LPN October 06, 2024 11:09 AM [facility]11-12-2024 NoteHNO ID: [id number] Author: MAX RODRIGUEZ MD Service: ? Author [...] ml 2% lido without Epi Max Rodriguez [facility]11-12-2024 Procedure note* Max Rodriguez MD - 09/19/2024 [...] 2% lido without Epi Max Rodriguez MD [facility]11-12-2024 Procedure note* Max Rodriguez MD - 09/19/2024 [...] Epi Max Rodriguez MD documented in this encounterCleveland Clinic Foundation11-12-2024 History of Present illness Narrative* Max Rodriguez [...] esophagitis 07/08/2022 Graves disease Heart attack (HCC) [place] stent in heart History of COVID-19 07/08/202205/2022 History of non-ST elevation myocardial infarction (NSTEMI) 01/19/201001/2010 Intradermal nevus 12/30/2014 right inferrior medial breast Keratosis, inflamed seborrheic 12/30/2014 right upper back Left carpal tunnel syndrome 01/04/[address] 12/03/2021 Daughter Truong is DPOA Low vitamin B12 level 04/06/2014 Lumbar radicular pain 05/26/2018 Added automatically from request for surgery [id number] Lump or mass in breast 01/20/2023 Patient [...] injections. Max Rodriguez MD documented in this encounterCleveland Clinic Foundation11-12-2024 NoteHNO ID: [id number] Author: MAX RODRIGUEZ MD Service: ? Author [...] esophagitis 07/08/2022 Graves disease Heart attack (HCC) [place] stent in heart History of COVID-19 07/08/202205/2022 History of non-ST elevation myocardial infarction (NSTEMI) 01/19/201001/2010 Intradermal nevus 12/30/2014 right inferrior medial breast Keratosis, inflamed seborrheic 12/30/2014 right upper back Left carpal tunnel syndrome 01/04/[address] 12/03/2021 Daughter Truong is DPOA Low vitamin B12 level 04/06/2014 Lumbar radicular pain 05/26/2018 Added automatically from request for surgery [id number] Lump or mass in breast 01/20/2023 Patient [...] Status Change dizziness a (more content not included)...[facility]11-08-2024 History of Present illness Narrative* CHRIS Pappas - 09/15/2024 1:[address] [facility] CHRIS Pappas Visit Note [...] PRESENT ILLNESS: The history was obtained from patient. Anne Marie is a 84 y.o. female, who presents [...] Regular rhythm. Normal S1S2. No m/r/g. Integumentary: [place], warm, dry, and Intact. Normal skin turgor; [...] and answered. CHRIS Pappas Advanced Practice Provider [facility] documented in this encounterCleveland Clinic [facility] Work Phone: [phone]) 206-143809-25-2024 Instructions* Patient Instructions* Max Rodriguez MD - 08/02/2024 9:12 AM EDT Please get labs and urine test done on or after 01/13/2024 prior to your next visit. documented in this encounterCleveland Clinic Foundation09-25-2024 History of Present illness Narrative* Max Rodriguez [...] esophagitis 07/08/2022 Graves disease Heart attack (HCC) [place] stent in heart History of COVID-19 07/08/202205/2022 History of non-ST elevation myocardial infarction (NSTEMI) 01/19/201001/2010 Intradermal nevus 12/30/2014 right inferrior medial breast Keratosis, inflamed seborrheic 12/30/2014 right upper back Left carpal tunnel syndrome 01/04/[address] 12/03/2021 Daughter Truong is DPOA Low vitamin B12 level 04/06/2014 Lumbar radicular pain 05/26/2018 Added automatically from request for surgery [id number] Lump or mass in breast 01/20/2023 Patient [...] major depressive disorder, in partial remission ([facility]) 04/14/2016 Severe obstructive sleep apnea AHI 32.5 [...] INSJ IO LENS PROSTH W/O ECP Bilateral 11-21-12 and 11-07-12 Cataract Extraction with PC IOL [...] No bald areas. Health Maintenance List Covid-19 Vaccine( season) due on 07/09/2024 Influenza Vaccine(1) due [...] Abs Lymph 1.00 - 4.00 k/uL 2.08 [place]% % 6.7 Abs [place] <0.87 k/uL 0.63 Eosin% % 5.0 Abs Eosin <0.46 k/uL 0.47 (H) Baso% % 0.6 Abs Baso <0.11 k/uL 0.06 Immature Gran % % 0.2 IMMATURE GRANS (ABS) <0.10 k/uL <0.03 NRBC /100 WBC 0.0 Absolute nRBC <0.01 k/uL <0.01 DTYPE Auto Color Yellow Yellow Clarity Clear Clear Glucose, Urine Negative Negative Bilirubin, Urine Negative Negative Ketones, Urine Negative Trace ! Specific [place], Ur 1.005 - 1.030 1.025 Hemoglobin/Blood,Ur Negative [...] CBC Max Rodriguez MD documented in this encounterCleveland Clinic Foundation09-25-2024 NoteHNO ID: [id number] Author: MAX RODRIGUEZ MD Service: ? Author [...] esophagitis 07/08/2022 Graves disease Heart attack (HCC) [place] stent in heart History of COVID-19 07/08/202205/2022 History of non-ST elevation myocardial infarction (NSTEMI) 01/19/201001/2010 Intradermal nevus 12/30/2014 right inferrior medial breast Keratosis, inflamed seborrheic 12/30/2014 right upper back Left carpal tunnel syndrome 01/04/[address] 12/03/2021 Daughter Truong is DPOA Low vitamin B12 level 04/06/2014 Lumbar radicular pain 05/26/2018 Added automatically from request for surgery [id number] Lump or mass in breast 01/20/2023 Patient [...] Mary Inhibitors Cough Chantix (more content not included)...[facility]09-16-2024 Telephone encounter Note* Telephone Encounter - Katherin Schmidt MA - 07/24/2024 9:33 AM EDT Spoke with Daughter Kailyn and gave results and instructions. She voiced understanding. Reminded of appointment time and date. Katherin Schmidt MA [facility]09-16-2024 Miscellaneous Notes* Telephone Encounter - Katherin Schmidt MA - 07/24/2024 9:33 AM EDT Spoke with Checo Avina and gave results and instructions. She voiced understanding. Reminded of appointment time and date. Katherin Schmidt MA * Telephone Encounter - Max Rodriguez MD - 07/23/2024 12:14 PM EDT Let daughter know Nery's thyroid lab shows she is getting too much levothyroxine. Advise her to change the dosing of the levothyroxine 137 mcg to one a day Mon- Fri, 1/2 on Wed and none on Wednesday. Order placed to repeat in 2 months. [facility] documented in this encounterCleveland Clinic Foundation09-15-2024 Telephone encounter Note * Telephone Encounter - Max Rodriguez MD - 07/23/2024 12:14 PM EDT Let daughter know Nery's thyroid lab shows she is getting too much levothyroxine. Advise her to change the dosing of the levothyroxine 137 mcg to one a day Mon- Fri, 1/2 on Wed and none on Wednesday. Order placed to repeat in 2 months. [facility]08-30-2024 Telephone encounter Note* Telephone Encounter - Dora Whitman PA-C - 07/07/2024 10:09 AM EDT The following approved medication requests have been transmitted electronically. Requested Prescriptions Signed Prescriptions Disp Refills traMADol (ULTRAM) 50 mg tablet 270 tablet 0 Sig: Take 1 tablet by mouth every 8 hours as needed for pain for up to 90 days. Authorizing Provider: DORA WHITMAN PA-C [facility]08-30-2024 Miscellaneous Notes* Telephone Encounter - Dora Whitman [...] 07, 2024 8:38 AM documented in this encounterCleveland Clinic Foundation08-30-2024 Telephone encounter Note * Telephone Encounter - [...] Schmidt MA July 07, 2024 8:38 AM [facility]07-09-2024 Procedure note* Max Rodriguez MD - 05/16/2024 [...] 60 mg of kenalog. Max Rodriguez MD [facility]07-09-2024 Procedure note* Max Rodriguez MD - 05/16/2024 [...] kenalog. Max Rodriguez MD documented in this encounterCleveland Clinic Foundation07-09-2024 History of Present illness Narrative* Max Rodriguez [...] esophagitis 07/08/2022 Graves disease Heart attack (HCC) [place] stent in heart History of COVID-19 07/08/202205/2022 History of non-ST elevation myocardial infarction (NSTEMI) 01/19/201001/2010 Intradermal nevus 12/30/2014 right inferrior medial breast Keratosis, inflamed seborrheic 12/30/2014 right upper back Left carpal tunnel syndrome 01/04/[address] 12/03/2021 Daughter Truong is DPOA Low vitamin B12 level 04/06/2014 Lumbar radicular pain 05/26/2018 Added automatically from request for surgery [id number] Lump or mass in breast 01/20/2023 Patient [...] above., Max Rodriguez MD documented in this encounterCleveland Clinic Foundation06-21-2024 History of Present illness Narrative* Max Rodriguez [...] Patient had breathing tests ordered by her nut tapper but refuses to do them. Wearing her [...] esophagitis 07/08/2022 Graves disease Heart attack (HCC) [place] stent in heart History of COVID-19 07/08/202205/2022 History of non-ST elevation myocardial infarction (NSTEMI) 01/19/201001/2010 Intradermal nevus 12/30/2014 right inferrior medial breast Keratosis, inflamed seborrheic 12/30/2014 right upper back Left carpal tunnel syndrome 01/04/[address] 12/03/2021 Daughter Truong is DPOA Low vitamin B12 level 04/06/2014 Lumbar radicular pain 05/26/2018 Added automatically from request for surgery [id number] Lump or mass in breast 01/20/2023 Patient [...] major depressive disorder, in partial remission ([facility]) 04/14/2016 Severe obstructive sleep apnea AHI 32.5 [...] Sensation grossly intact.. Health Maintenance List Covid-19 Vaccine(2022- season) due on 12/31/2023 LDL Cholesterol due [...] Abs Lymph 1.00 - 4.00 k/uL 2.08 [place]% % 6.7 Abs [place] <0.87 k/uL 0.63 Eosin% % 5.0 Abs Eosin <0.46 k/uL 0.47 (H) Baso% % 0.6 Abs Baso <0.11 k/uL 0.06 Immature Gran % % 0.2 IMMATURE GRANS (ABS) <0.10 k/uL <0.03 NRBC /100 WBC 0.0 Absolute nRBC <0.01 k/uL <0.01 DTYPE Auto Color Yellow Yellow Clarity Clear Clear Glucose, Urine Negative Negative Bilirubin, Urine Negative Negative Ketones, Urine Negative Trace ! Specific [place], Ur 1.005 - 1.030 1.025 Hemoglobin/Blood,Ur Negative [...] vaccination - ICD9: V05.9, ICD10: Z23 - [employer] COVID-19 VACCINE (2022- SEASON) AGE 12+ YR: given Requested Prescriptions [...] which included preparing to see the patient, [id number] patient care, completing clinical documentation, performing a medically appropriate examination, counseling and educating the patient/family/caregiver and ordering medications, tests, or procedures. Patient was asked at end of visit if they had any questions or input regarding the plan of care we had discussed. Max Rodriguez MD documented in this encounterCleveland Clinic Foundation2024 Telephone encounter Note * Telephone Encounter - Dora Whitman PA-C - 04/11/2024 7:39 AM EDT The following approved medication requests have been transmitted electronically. Requested Prescriptions Signed Prescriptions Disp Refills traMADol (ULTRAM) 50 mg tablet 270 tablet 0 Sig: Take 1 tablet by mouth every 8 hours as needed for pain for up to 90 days. Authorizing Provider: DORA WHITMAN PA-C [facility]2024 Miscellaneous Notes* Telephone Encounter - Dora Whitman [...] WHITMAN PA-C * Telephone Encounter - Haroldo ComerDAWIT - 04/10/2024 3:42 PM EDT Patient dMetricshart message requesting the following refill Refill(s) Requested: [...] pt to feel jittery all over (home) [phone] (cell) Last Office Visit Date: 03/17/2024 Last Distance Health Visit: Visit date not found Future Appointment: 04/28/2024 The patients preferred pharmacy has been captured for this encounter? yes Request is for script(s) to be escript to pharmacy. Haroldo Comer LPN documented in this encounterCleveland Clinic Foundation06-03-2024 Telephone encounter Note * Telephone Encounter - Haroldo Comer LPN - 04/10/2024 3:42 PM EDT Patient dMetricshart message requesting the following refill Refill(s) Requested: [...] pt to feel jittery all over (home) [phone] (cell) Last Office Visit Date: 03/17/2024 Last Distance Health Visit: Visit date not found Future Appointment: 04/28/2024 The patients preferred pharmacy has been captured for this encounter? yes Request is for script(s) to be escript to pharmacy. Haroldo Comer LPN [facility]05-10-2024 History of Present illness Narrative* Nicole Zhang APRN.CURRENCY EXCHANGE SPECIALIST - 03/17/2024 10:40 AM EDT Chief Complaint [...] esophagitis 07/08/2022 Graves disease Heart attack (HCC) [place] stent in heart History of COVID-19 07/08/202205/2022 History of non-ST elevation myocardial infarction (NSTEMI) 01/19/201001/2010 Intradermal nevus 12/30/2014 right inferrior medial breast Keratosis, inflamed seborrheic 12/30/2014 right upper back Left carpal tunnel syndrome 01/04/[address] 12/03/2021 Daughter Truong is DPOA Low vitamin B12 level 04/06/2014 Lumbar radicular pain 05/26/2018 Added automatically from request for surgery [id number] Lump or mass in breast 01/20/2023 Patient [...] rubs. No ectopy. Health Maintenance List Covid-19 Vaccine(2022- season) due on 12/31/2023 LDL Cholesterol due [...] - LEVOTHYROXINE 137 MCG TABLET Nicole Zhang APRN.CURRENCY EXCHANGE SPECIALIST documented in this encounterCleveland Clinic Foundation04-05-2024 Miscellaneous Notes* Telephone Encounter - Dora Whitman [...] changing her mother's medication. Please send to [facility]. BP scheduled for 03/17/24. Little Deluca LPN [...] Scan on 02/10/2024 2:52 PM by Provider, VIN Ratliff: Losartan Not On Formulary Daughter stopped by [...] filed. Nanette Delong MA documented in this encounterCleveland Clinic Foundation03-21-2024 Miscellaneous Notes* Telephone Encounter - Little Deluca LPN - 01/27/2024 9:15 AM EDT Pt's daughter Kailyn notified of results & voiced understanding. Little Deluca LPN * Telephone Encounter - Max Rodriguez MD - 01/27/2024 8:40 AM EDT Let daughter Vidya know that the liver function tests were normal. documented in this encounterCleveland Clinic Foundation03-20-2024 Instructions* Patient Instructions* Max Rodriguez MD - [...] review all the medicines you take, even ouev-xks-fysowll medicines. As you get older, the way [...] have certain medical conditions. documented in this encounterCleveland Clinic Foundation03-20-2024 History of Present illness Narrative* Max Rodriguez [...] esophagitis 07/08/2022 Graves disease Heart attack (HCC) [place] stent in heart History of COVID-19 07/08/202205/2022 History of non-ST elevation myocardial infarction (NSTEMI) 01/19/201001/2010 Intradermal nevus 12/30/2014 right inferrior medial breast Keratosis, inflamed seborrheic 12/30/2014 right upper back Left carpal tunnel syndrome 01/04/[address] 12/03/2021 Daughter Truong is DPOA Low vitamin B12 level 04/06/2014 Lumbar radicular pain 05/26/2018 Added automatically from request for surgery [id number] Lump or mass in breast 01/20/2023 Patient [...] Lymph 1.00 - 4.00 k/uL 1.31 2.08 [place]% % 6.7 6.7 Abs [place] <0.87 k/uL 0.65 0.63 Eosin% % 3.1 [...] Ketones, Urine Negative Negative Trace ! Specific [place], Ur 1.005 - 1.030 1.030 1.025 Hemoglobin/Blood,Ur [...] which included preparing to see the patient, qnhy-[id number] patient care, completing clinical documentation, performing a medically appropriate examination, counseling and educating the patient/family/caregiver and ordering medications, tests, or procedures. Max Rodriguez MD documented in this encounterCleveland [id number] History of Present illness Narrative* Orly Richardson LPN - 01/20/2024 2:04 PM EDT Pt has Medicare Wellness appointment 01/26/24 Scan on 01/18/2024 3:15 PM by Provider, VIN Ratliff: Echo documented in this encounterCleveland Clinic Foundation03-04-2024 History of Present illness Narrative* Bob Whiteside MD - 01/10/2024 11:21 AM ESTAssociated Order(s): Large Joint Arthro/Inj: bilateral knee joints Post-Procedure Diagnose(s): Chronic pain of both knees; Primary osteoarthritis of both knees Bob Whiteside MD Department of Orthopaedics Orthopaedics [address] [place] [id number] Dept: [phone] Dept January 10, 2024 CHIEF COMPLAINT: Established [...] knee joints Informed Consent Consent Obtained: Verbal Coleman Protocol A moment to CARE was completed. [...] [Tizanidine] Bob Whiteside MD documented in this encounterCleveland Clinic Foundation03-01-2024 Miscellaneous Notes* Telephone Encounter - Orly Richardson [...] you. Orly Richardson LPN. documented in this encounterCleveland Clinic Foundation02-16-2024 Miscellaneous Notes* Telephone Encounter - Katherin Schmidt [...] next Wednesday. Order placed,. documented in this encounterCleveland Clinic Foundation02-14-2024 Miscellaneous Notes* Telephone Encounter - Savannah Lockett RN - 12/22/2023 9:15 AM EST Pt and daughter are called and is notified of providers results and instructions. They voice understanding. Savannah Lockett RN * Telephone Encounter - Max Rodriguez MD - 12/21/2023 8:08 PM EST Let daughter know Pat's liver functions and blood count were ok. Her potassium was slightly high and she appears dehydrated. Encourage increased water intake daily.Want to repeat electrolyte panel on . Order placed documented in this encounterCleveland Clinic Foundation02-13-2024 Miscellaneous Notes* Telephone Encounter - Katherin Schmidt MA - 12/21/2023 4:48 PM EST Faxed. Katherin Schmidt MA * Telephone Encounter - Max Rodriguez MD - 12/21/2023 3:27 PM EST Order signed. * Telephone Encounter - Katherin Schmidt MA - 12/21/2023 12:56 PM EST Patient is scheduled on 01/10/2024 for [place] [facility]iac at [facility]. Referral placed. Order given to PCP to sign. Katherin Schmidt MA documented in this encounterCleveland Clinic Foundation02-13-2024 History of Present illness Narrative* Max Rodriguez [...] esophagitis 07/08/2022 Graves disease Heart attack (HCC) [place] stent in heart History of COVID-19 07/08/202205/2022 History of non-ST elevation myocardial infarction (NSTEMI) 01/19/201001/2010 Intradermal nevus 12/30/2014 right inferrior medial breast Keratosis, inflamed seborrheic 12/30/2014 right upper back Left carpal tunnel syndrome 01/04/[address] 12/03/2021 Daughter Truong is DPOA Low vitamin B12 level 04/06/2014 Lumbar radicular pain 05/26/2018 Added automatically from request for surgery [id number] Lump or mass in breast 01/20/2023 Patient [...] reviewed : ER report and studies from [facility]. A/P ASSESSMENT/PLAN: 1. Coronary artery disease [...] patient to complete the walk test that Pulm wants her to do. 4. Dizziness - ICD9: 780.4, ICD10: R42 Check - CBC + DIFF - NM CARDIAC PERF STRESS/PHARM - REGADENOSON 0.4 MG/5 ML INTRAVENOUS SYRINGE - AMINOPHYLLINE 250 MG/10 ML INTRAVENOUS SOLUTION - METOPROLOL TARTRATE 5 MG/5 ML INTRAVENOUS SOLUTION - INSERT IV ([place]) - IV DISCONTINUE - US CAROTID ARTERIES [facility] 5. Jaundice - ICD9: 782.4, ICD10: R17 Check - HEPATIC FUNCTION PNL - CBC + DIFF With patient's emphysema and dizziness she can no do a treadmill stress test. She will not be able to complete it and has increased risk of falling. Using a walker to aid with balance. Max Rodriguez MD documented in this encounterCleveland Clinic Foundation02-08-2024 History of Present illness Narrative* Orly Richardson LPN - 12/16/2023 11:18 AM EST Pt has appointment with pcp 12/21/23 Scan on 12/16/2023 10:38 AM by Provider, External, VIN: Consultation - Pulmonary documented in this encounterCleveland Clinic Foundation02-06-2024 Miscellaneous Notes* Telephone Encounter - Max Rodriguez MD - 12/14/2023 12:24 PM EST Noted. * Telephone Encounter - Katherin Schmidt MA - 12/14/2023 11:52 AM EST Received ER paperwork from [facility]. Contacted daughter and scheduled for a er follow up on 12/21/2023. Paperwork given to PCP for review. Waiting on Culture results from [facility]. Daughter mentioned that cannot get her mother to drink enough fluids. She doesn't like water. I suggested maybe getting a flavor (drops) in the water might help. Katherin Schmidt MA documented in this encounterCleveland Clinic Foundation02-05-2024 Discharge summary Author Flavio Echavarria [facility] December 13, 2023 10:40pm Note Date/Time December 13, 2023 7 :03pm [facility] Medical Records Department [address] [place] [address] Emergency Department Summary 12/13/23 MR#: [id number] Acct: [id number] Name: ANNE MARIE GARZA Rep #:[id number] : 1940 83 From: Flavio Echavarria MD [...] hemoptysis. She is not on blood thinners. [facility] Medical History Anxiety and depression Atherosclerosis of coronary artery of twenty-nine palms heart without angina pectoris CAD (coronary artery [...] rest of the family had COVID around [place] but all seem to do okay with [...] % (Auto) 57.0 Lymph % (Auto) 29.1 [place] % (Auto) 8.8 Eos % (Auto) 3.8 [...] Sl. Cloudy Urine pH 6.0 Ur Specific [place] 1.025 Urine Protein 30 H Urine Glucose [...] Signed: Bob Gonzalez MD at 20:44 EST , Chest X-Ray 12/13/23 20:12 IMPRESSION: Degenerative [...] your Primary Care Provider. Call [facility] ([phone]) or report to the closest Emergency Room. Call 911 if necessary. 12/13/232239 <Electronically signed by Flavio Echavarria MD> Cosigner Signature (if applicable): CC: Dr. Max Rodriguez MD ~ Signed [facility] Work Phone: 1(639) 565-379002-01-2024 Miscellaneous Notes* Telephone Encounter - Christin Lott LPN - 12/09/2023 2:22 PM EST Left detailed message on identifiable voicemail. * Telephone Encounter - Max Rodriguez MD - 12/09/2023 1:43 PM EST Let daughter know Pat's shoulder x-ray shows mild arthritic changes otherwise normal. documented in this encounterCleveland Clinic Foundation01-31-2024 History of Present illness Narrative* Maria L Robles RT(R) - 12/08/2023 12:10 PM EST Radiology [...] PATIENT PRESENTS WITH AN IMPLANTABLE OR ATTACHED EXPANDER: No RADIOLOGY DEPARTMENT: General X-ray: Exam(s) Completed: Upper Extremity X- Ray(s): Shoulder, AP / TRUE AP / SUPRA OUTLET right PERIPHERAL IV DATA: Not applicable SIGNED BY: RT Lulú(R) December 08, 2023 12:02 PM documented in this encounterCleveland Clinic Foundation12-15-2023 History of Present illness Narrative* Nicole Zhang APRN.CURRENCY EXCHANGE SPECIALIST - 10/22/2023 10:54 AM EST Chief Complaint [...] esophagitis 07/08/2022 Graves disease Heart attack (HCC) [place] stent in heart History of COVID-19 07/08/202205/2022 History of non-ST elevation myocardial infarction (NSTEMI) 01/19/201001/2010 Intradermal nevus 12/30/2014 right inferrior medial breast Keratosis, inflamed seborrheic 12/30/2014 right upper back Left carpal tunnel syndrome 01/04/[address] 12/03/2021 Daughter Truong is DPOA Low vitamin B12 level 04/06/2014 Lumbar radicular pain 05/26/2018 Added automatically from request for surgery [id number] Lump or mass in breast 01/20/2023 Patient [...] - AMLODIPINE 5 MG TABLET Nicole Zhang APRN.CURRENCY EXCHANGE SPECIALIST documented in this encounterCleveland Clinic Foundation12-11-2023 Miscellaneous Notes* Telephone Encounter - Eileen Degroot Ma - 10/18/2023 10:53 AM EST Call to daughterKailyn and notified her of results and recommendation below from Provider. Verbalizes understanding. Will be seeing Nicole Zhang this week as well for ongoing BP issues, will address with her. Eileen Degroot Ma * Telephone Encounter - Max Rodriguez MD - 10/17/2023 12:44 PM EST Let daughter know Pat is still getting too much levothyroxine. Cont with the 137 mgc tab but only take one Wed-Wed and none on Wednesday. Will need repeat lab in 2 months. Order placed. documented in this encounterCleveland Clinic Foundation12-04-2023 Miscellaneous Notes* Telephone Encounter - Max Rodriguez [...] 01/2024 Last refill: 07/2023 documented in this encounterCleveland Clinic Foundation10-24-2023 Miscellaneous Notes* Telephone Encounter - Katherin Schmidt [...] on or after 10/29/2023. documented in this encounterCleveland Clinic Foundation10-23-2023 History of Present illness Narrative* Josie Swanson [...] patient due to not having an email. Security Nurse's instructions were sent home with the patient. Josie Swanson Ma * Bob Whiteside MD - 08/30/2023 10:12 AM EDTAssociated Order(s): Large Joint Arthro/Inj: bilateral knee joints Post-Procedure Diagnose(s): Primary osteoarthritis of both knees; Chronic pain of both knees Bob Whiteside MD Department of Orthopaedics Orthopaedics [address] [place] [address] Dept: [phone] Dept August 30, 2023 CHIEF COMPLAINT: Injections of the Right Knee and Injections of the Left Knee. HPI ASSESSMENT: M17.0 Primary osteoarthritis of both knees (primary encounter diagnosis) M25.561, M25.562, G89.29 Chronic pain of both knees SUMMARY/PLAN: Repeat injections both knees. Exam: Stable exams. Large Joint Arthro/Inj: bilateral knee joints Informed Consent Consent Obtained: Verbal Coleman Protocol A moment to CARE was completed. [...] [Tizanidine] Bob Whiteside MD documented in this encounterCleveland Clinic Foundation10-23-2023 History of Present illness Narrative* Nicole Zhang APRN.[facility] - 08/30/2023 8:44 AM EDT Chief Complaint [...] esophagitis 07/08/2022 Graves disease Heart attack (HCC) [place] stent in heart History of COVID-19 07/08/202205/2022 History of non-ST elevation myocardial infarction (NSTEMI) 01/19/201001/2010 Intradermal nevus 12/30/2014 right inferrior medial breast Keratosis, inflamed seborrheic 12/30/2014 right upper back Left carpal tunnel syndrome 01/04/[address] 12/03/2021 Daughter Truong is DPOA Low vitamin B12 level 04/06/2014 Lumbar radicular pain 05/26/2018 Added automatically from request for surgery [id number] Lump or mass in breast 01/20/2023 Patient [...] major depressive disorder, in partial remission ([facility]) 04/14/2016 Severe obstructive sleep apnea AHI 32.5 [...] (2022- SEASON) AGE 12+ YR Nicole Zhang APRN.CURRENCY EXCHANGE SPECIALIST documented in this encounterCleveland Clinic Foundation09-15-2023 History of Present illness Narrative* Max Rodriguez [...] esophagitis 07/08/2022 Graves disease Heart attack (HCC) [place] stent in heart History of COVID-19 07/08/202205/2022 History of non-ST elevation myocardial infarction (NSTEMI) 01/19/201001/2010 Intradermal nevus 12/30/2014 right inferrior medial breast Keratosis, inflamed seborrheic 12/30/2014 right upper back Left carpal tunnel syndrome 01/04/[address] 12/03/2021 Daughter Truong is DPOA Low vitamin B12 level 04/06/2014 Lumbar radicular pain 05/26/2018 Added automatically from request for surgery [id number] Lump or mass in breast 01/20/2023 Patient [...] Abs Lymph 1.00 - 4.00 k/uL 1.31 [place]berg% % 6.7 Abs [place] <0.87 k/uL 0.65 Eosin% % 3.1 Abs [...] Mg, Max Rodriguez MD documented in this encounterCleveland Clinic Foundation09-05-2023 Miscellaneous Notes* Telephone Encounter - Dora Whitman [...] 04/09/23 Massiel Morales Ma documented in this encounterCleveland Clinic Foundation08-31-2023 Miscellaneous Notes* Telephone Encounter - Max Rodriguez MD - 07/08/2023 10:15 AM EDT Noted. [...] 0.222 uU/mL Please advise. Thank you. Savannah Lockett RN * Telephone Encounter - [...] repeated in 2 months. documented in this encounterCleveland Clinic Foundation07-20-2023 History of Present illness Narrative* Bob Whiteside MD - 05/27/2023 9:40 AM EDT Bob Whiteside MD Department of Orthopaedics Orthopaedics [address] [place] [address] Dept: [phone] Dept May 27, 2023 CHIEF COMPLAINT: Established [...] PREVIOUS EXAM. PATELLOFEMORAL DEGENERATIVE CHANGES ARE UNCHANGED. Museum Attendant: PSCB Transcribe Date/Time: May 30 2023 4:38P Dictated by : LEOBARDO GORDON MD This examination was interpreted and the report reviewed and electronically signed by: LEOBARDO GORDON MD on May 30 2023 4:43PM EST Results-Findings * * *Final Report* * * DATE OF EXAM: May 27 2023 9:36AM WRX [id number] - XR KNEE 4V AP/PA/LAT/MERCH EYAL / PROCEDURE REASON: multiple diagnoses * * * * Physician Interpretation * * * * HISTORY: 82-YEAR-OLD FEMALE WITH Pain in both knees, unspecified chronicity Pain in both knees, unspecified chronicity . Chronic anterior bilateral knee pain increasing over time without injury. Right worse than left. TECHNIQUE: XR KNEE 4V AP/PA/LAT/MERCH EYAL Laterality: BILATERAL Number of different views (projections): [...] anxiety) Bob Whiteside MD documented in this encounterCleveland Clinic Foundation07-06-2023 Miscellaneous Notes* Telephone Encounter - Nanette Hernandez Cma - 05/13/2023 1:00 PM EDT Daughter notified and verbalized understanding Nanette Hernandez Cma * Telephone Encounter - Nicole Zhang APRN.CNP - 05/13/2023 12:47 PM EDT Please let patient know her blood flow tests of her legs is normal. documented in this encounterCleveland Clinic Foundation07-06-2023 History of Present illness Narrative* Cris Kirk LPN - 05/13/2023 11:10 AM EDT Scan on 05/12/2023 3:46 PM by External Provider, PAJamesC: Consultation - Emergency Medicine Scan on 05/12/2023 12:27 PM by External Provider, HIRALC: X-ray documented in this encounterCleveland [id number] Discharge summary Author Flavio Echavarria [facility] May 06, 2023 7:15pm Note Date/Time May 06, 2023 5:[address] [facility] Medical Records Department [address] [place] [address] Emergency Department Summary 05/06/23 MR#: [id number] Acct: [id number] Name: ANNE MARIE GARZA Rep #:[id number] : 1940 82 From: Flavio Echavarria MD [...] Celebrex for a lot of arthritic pain. [facility] Medical History Anxiety and depression Atherosclerosis of coronary artery of twenty-nine palms heart without angina pectoris CAD (coronary artery [...] % (Auto) 58.3 Lymph % (Auto) 28.7 [place] % (Auto) 9.3 Eos % (Auto) 2.7 [...] Signed: Max Ramírez MD at 16:18 EDT Reading Location ID and State: [facility] / [place] , Service support , EKG Initial EKG: Comments: My independent interpretation the patient's EKG shows sinus rhythm with bradycardic rate of 52. Some indication of LVH with some secondary changes. Nonspecific ST change but no sign of infarct. No ventricular ectopy. NC interval, QRS duration and QTc are within normal. Discharge Plan Triage Chief Complaint: Chest Pain ED Provider: Flavio Echavarria Dx/Rx/DC Orders Clinical Impression: Right-sided chest pain [...] your Primary Care Provider. Call [facility] ([phone]) or report to the closest Emergency Room. Call 911 if necessary. 05/06/231914 <Electronically signed by Flavio Echavarria MD> Cosigner Signature (if applicable): CC: Dr. Max Rodriguez MD ~ Signed [facility] Work Phone: 1(227) 460-629506-15-2023 History of Present illness Narrative* Nicole Zhang APRN.CURRENCY EXCHANGE SPECIALIST - 04/22/2023 10:20 AM EDT Chief Complaint [...] esophagitis 07/08/2022 Graves disease Heart attack (HCC) [place] stent in heart History of COVID-19 07/08/202205/2022 History of non-ST elevation myocardial infarction (NSTEMI) 01/19/201001/2010 Intradermal nevus 12/30/2014 right inferrior medial breast Keratosis, inflamed seborrheic 12/30/2014 right upper back Left carpal tunnel syndrome 01/04/[address] 12/03/2021 Daughter Truong is DPOA Low vitamin B12 level 04/06/2014 Lumbar radicular pain 05/26/2018 Added automatically from request for surgery [id number] Lump or mass in breast 01/20/2023 Patient [...] L81.9 (primary diagnosis) - PVR ANK PRESS EYAL VAS LAB 2. Arthritis of both knees - ICD9: 716.96, ICD10: M17.0 --Continue celebrex and tramadol as needed 3. Encounter for immunization - ICD9: V03.89, ICD10: Z23 - TDAP VACCINE, AGE 7+ YR (ADACEL, BOOSTRIX) Nicole Zhang APRN.CURRENCY EXCHANGE SPECIALIST documented in this encounterCleveland Clinic Foundation06-02-2023 Miscellaneous Notes* Telephone Encounter - Max Rodriguez [...] 04/22/23 Orly Richardson LPN documented in this encounterCleveland Clinic Foundation04-17-2023 History of Present illness Narrative* Bob Whiteside MD - 02/22/2023 10:25 AM EDTAssociated Order(s): Large Joint Arthro/Inj: bilateral knee joints Post-Procedure Diagnose(s): Primary osteoarthritis of both knees Bob Whiteside MD Department of Orthopaedics Orthopaedics [address] [place] [address] Dept: [phone] Dept February 22, 2023 CHIEF COMPLAINT: Follow [...] knee joints Informed Consent Consent Obtained: Verbal Coleman Protocol A moment to CARE was completed. [...] anxiety) Bob Whiteside MD documented in this encounterCleveland Clinic Foundation03-20-2023 Miscellaneous Notes* Telephone Encounter - Katherin Schmidt [...] pharmacy. No need to notify patient. Katherin Scmhidt MA [facility]; 01/2023 Nov: 04/2023 Last refill: 08/2022 documented in this encounterCleveland Clinic Foundation03-15-2023 Instructions* Patient Instructions* Max Rodriguez MD - 01/20/2023 10:22 AM EDT Patient should try to a Tdap for a tetanus booster at the health Dept. The Flovent works better to reduce breathing issues if taken daily. Please take the B12 every day. Please get labs and urine test done on or after 07/09/2023 prior to your next visit. documented in this encounterCleveland Clinic Foundation03-15-2023 History of Present illness Narrative* Max Rodriguez MD - 01/20/2023 9:24 AM EDT Medicare Yearly Visit Medical B eligibilty date Not able to find Date of last exam 12/03/2021 PAST MEDICAL HISTORY PAST MEDICAL HISTORY Diagnosis Date Anxiety CAD (coronary artery disease) Chronic obstructive pulmonary disease (COPD) (HCC) Depression Essential hypertension 01/26/2017 Graves disease Heart attack (HCC) [place] stent in heart Hyperlipidemia Hypothyroid Obstructive sleep [...] esophagitis 07/08/2022 Graves disease Heart attack (HCC) [place] stent in heart History of COVID-19 07/08/202205/2022 History of non-ST elevation myocardial infarction (NSTEMI) 01/19/201001/2010 Intradermal nevus 12/30/2014 right inferrior medial breast Keratosis, inflamed seborrheic 12/30/2014 right upper back Left carpal tunnel syndrome 01/04/[address] 12/03/2021 Daughter Truong is DPOA Low vitamin B12 level 04/06/2014 Lumbar radicular pain 05/26/2018 Added automatically from request for surgery [id number] Macular degeneration Left eye Medicare annual wellness [...] Lymph 1.00 - 4.00 k/uL 1.72 1.31 [place]% % 8.0 6.7 Abs [place] <0.87 k/uL 0.68 0.65 Eosin% % 2.8 [...] Negative Ketones, Urine Trace, Negative Negative Specific [place], Ur 1.005 - 1.030 1.030 Hemoglobin/Blood,Ur Negative, [...] which included preparing to see the patient, [id number] patient care, completing clinical documentation, performing a medically appropriate examination, counseling and educating the patient/family/caregiver and ordering medications, tests, or procedures. Max Rodriguez MD documented in this encounterCleveland Clinic Foundation02-27-2023 Miscellaneous Notes* Telephone Encounter - Max Rodriguez [...] 01/2023 Last refill: 09/2022 documented in this encounterCleveland Clinic Foundation01-05-2023 History of Present illness Narrative* Bob Whiteside [...] MD Department of Orthopaedics Orthopaedics [address] [facility] [address] Dept: [phone] Dept November 12, 2022 CHIEF COMPLAINT: Established [...] knee joints Informed Consent Consent Obtained: Verbal Coleman Protocol A moment to CARE was completed. [...] a day and 1.5 tabs on Wednesday, Takeon empty [...] [Tizanidine] Bob Whiteside MD documented in this encounterCleveland Clinic Foundation11-28-2022 Miscellaneous Notes* Telephone Encounter - Savannah Lockett RN - 10/05/2022 8:18 AM EST Pts daughter called and is notified of providers results and instructions. She voices understanding. Went over appointment notes from Pts last appointment. Savannah Lockett RN * Telephone Encounter - Max Rodriguez MD - 10/04/2022 12:19 PM EST Let patient know urine culture came back positive. Antibiotic sent in to [facility]. The following approved medication requests have been transmitted electronically. Requested Prescriptions Signed Prescriptions Disp Refills cefADROxil (DURICEF) 500 mg capsule 14 capsule 0 Sig: Take 1 capsule by mouth twice daily for 7 days. Authorizing Provider: MAX RODRIGUEZ MD documented in this encounterCleveland Clinic Foundation11-23-2022 History of Present illness Narrative* Max Rodriguez [...] esophagitis 07/08/2022 Graves disease Heart attack (HCC) [place] stent in heart History of COVID-19 07/08/202205/2022 History of non-ST elevation myocardial infarction (NSTEMI) 01/19/201001/2010 Intradermal nevus 12/30/2014 right inferrior medial breast Keratosis, inflamed seborrheic 12/30/2014 right upper back Left carpal tunnel syndrome 01/04/[address] 12/03/2021 Daughter Truong is DPOA Low vitamin B12 level 04/06/2014 Lumbar radicular pain 05/26/2018 Added automatically from request for surgery [id number] Medicare annual wellness visit, subsequent 06/21/2017 Medicare [...] 2023 Max Rodriguez MD documented in this encounterCleveland Clinic Foundation10-03-2022 History of Present illness Narrative* Bob Whiteside MD - 08/10/2022 10:40 AM EDTAssociated Order(s): Large Joint Arthro/Inj: bilateral knee joints Post-Procedure Diagnose(s): Primary osteoarthritis of both knees; Chronic pain of both knees Bob Whiteside MD Department of Orthopaedics Orthopaedics [address] [facility] [address] Dept: [phone] Dept August 10, 2022 CHIEF COMPLAINT: Established [...] knee joints Informed Consent Consent Obtained: Verbal Coleman Protocol A moment to CARE was completed. [...] anxiety) Bob Whiteside MD documented in this encounterCleveland Clinic Foundation08-31-2022 Instructions* Patient Instructions* Max Rodriguez MD - 07/08/2022 6:12 PM EDT Please get labs and urine test done on or after 12/25/2022 prior to your next visit. documented in this encounterCleveland Clinic Foundation08-31-2022 History of Present illness Narrative* Max Rodriguez [...] hypertension 01/26/2017 Graves disease Heart attack (HCC) [place] stent in heart History of non-ST elevation myocardial infarction (NSTEMI) 01/19/201001/2010 Intradermal nevus 12/30/2014 right inferrior medial breast Keratosis, inflamed seborrheic 12/30/2014 right upper back Left carpal tunnel syndrome 01/04/[address] 12/03/2021 Daughter Truong is DPOA Low vitamin B12 level 04/06/2014 Lumbar radicular pain 05/26/2018 Added automatically from request for surgery [id number] Medicare annual wellness visit, subsequent 06/21/2017 Medicare [...] Wed-Wed and 1.5 tabs on Wednesday, Take empty stomach. For Thyroid. citalopram (CELEXA) 40 [...] Abs Lymph 1.00 - 4.00 k/uL 1.72 [place]% % 8.0 Abs [place] <0.87 k/uL 0.68 Eosin% % 2.8 Abs [...] prior Max Rodriguez MD documented in this encounterCleveland Clinic Foundation06-23-2022 History of Present illness Narrative* Bob Whiteside MD - 04/30/2022 11:09 AM EDT Associated Order(s): Large Joint Arthro/Inj: bilateral knee joints Bob Whiteside MD Department of Orthopaedics Orthopaedics [address] [facility] [address] Dept: [phone] Dept April 30, 2022 CHIEF COMPLAINT: Follow [...] knee joints Informed Consent Consent Obtained: Verbal Coleman Protocol A moment to CARE was completed. [...] anxiety) Bob Whiteside MD documented in this encounterCleveland Clinic Foundation06-20-2022 History of Present illness Narrative* Fernanda Armstrong RN - 04/27/2022 12:03 PM EDT [employer] Enrollment Provider Action/FYI: h/o emphysema Agreed to [email or web address] home monitoring using the browser Her daughter Vidya will help her fill out questionnaire once a week Pt lives with her daughter Goal,ADL and fall risk assessment completed Patient referred by: [facility] Cristiane Contact made with patient: Yes - Patient identified by name and . Discussed care with patient Carolyn this is Fernanda Armstrong RN and I am calling from Max Rodriguez MD office at the [facility]. I am a RN Securities And Real Estate Director with our [employer] Chronic Disease Management program. [...] few questions once a week through your [employer] account. It will automatically show up for [...] goal align with programs offered at the [facility]? Yes Chronic Disease Management patient goals yes: stay healthy Most people know what to do to become healthier, yet struggle to put it into action on their own.Itcan be hard to maintain a healthy lifestyle, especially when life is so stressful. Can we connect you with a [facility] Health Park Aide to find a program that could help you meet your goals? No Closing: Patient accepts manager home healthcare Thank you for your time today. I am excited to work together in managing your health! You will receive information on next steps through your [employer] account, and I will check back within a few weeks to ensure you have all that you need to use the program successfully. (Place name in care team and assign [employer] Gang Punch Operator questionnaire) documented in this encounterCleveland Clinic Foundation05-16-2022 Miscellaneous Notes* Telephone Encounter - Aleksey Fields [...] one a day or one Wed-Wed and 1/2 on Wednesday? My notes from 11/2021 say to do the former but the med list says the latter. documented in this encounterCleveland Clinic Foundation05-13-2022 History of Present illness Narrative* Max Rodriguez [...] hypertension 01/26/2017 Graves disease Heart attack (HCC) [place] stent in heart History of non-ST elevation myocardial infarction (NSTEMI) 01/19/201001/2010 Intradermal nevus 12/30/2014 right inferrior medial breast Keratosis, inflamed seborrheic 12/30/2014 right upper back Left carpal tunnel syndrome 01/04/[address] 12/03/2021 Daughter Truong is DPOA Low vitamin B12 level 04/06/2014 Lumbar radicular pain 05/26/2018 Added automatically from request for surgery [id number] Medicare annual wellness visit, subsequent 06/21/2017 Medicare [...] May. Max Rodriguez MD documented in this encounterCleveland Clinic Foundation02-13-2020 Evaluation note* Diagnosis Onset Date Resolution Status Dyspnea on minimal exertion chronic Chronic diastolic (congestive) heart failure chronic Essential hypertension chron ic History of coronary artery stent placement December 212019 chronic HLD (hyperlipidemia) [facility] Work Phone: 1(376) 835-401003-14-2010 History of Past illness Narrative* Problem Noted Date Resolved Date SUMMARY 01/19/2010 11/04/2011 Overview: 69 yo woman with HLD, COPD, hypothyroidism p/w chest pain and +troponin, consistent with NSTEMI. documented as of this encounter (statuses as of 03/22/2022) [facility]03-14-2010 History of Past illness Narrative* Problem Noted Date Resolved Date SUMMARY 01/19/2010 11/04/2011 Overview: 69 yo woman with HLD, COPD, hypothyroidism p/w chest pain and +troponin, consistent with NSTEMI. documented as of this encounter (statuses as of 03/23/2022) [facility]03-14-2010 History of Past illness Narrative* Problem Noted Date Resolved Date SUMMARY 01/19/2010 11/04/2011 Overview: 69 yo woman with HLD, COPD, hypothyroidism p/w chest pain and +troponin, consistent with NSTEMI. documented as of this encounter (statuses as of 04/28/2022) [facility]03-[facility] History of Past illness Narrative* Problem Noted Date Resolved Date SUMMARY 01/19/2010 11/04/2011 Overview: 69 yo woman with HLD, COPD, hypothyroidism p/w chest pain and +troponin, consistent with NSTEMI. documented as of this encounter (statuses as of 05/20/2022) [facility] [facility] History of Past illness Narrative* Problem Noted Date Resolved Date SUMMARY 01/19/2010 11/04/2011 Overview: 69 yo woman with HLD, COPD, hypothyroidism p/w chest pain and +troponin, consistent with NSTEMI. documented as of this encounter (statuses as of 07/10/2022) [facility] History of Past illness Narrative* Problem Noted Date Resolved Date SUMMARY 01/19/2010 11/04/2011 Overview: 69 yo woman with HLD, COPD, hypothyroidism p/w chest pain and +troponin, consistent with NSTEMI. documented as of this encounter (statuses as of 08/11/2022) [facility]2010 History of Past illness Narrative* Problem Noted Date Resolved Date SUMMARY 01/19/2010 11/04/2011 Overview: 69 yo woman with HLD, COPD, hypothyroidism p/w chest pain and +troponin, consistent with NSTEMI. documented as of this encounter (statuses as of 10/04/2022) [facility] History of Past illness Narrative* Problem Noted Date Resolved Date SUMMARY 01/19/2010 11/04/2011 Overview: 69 yo woman with HLD, COPD, hypothyroidism p/w chest pain and +troponin, consistent with NSTEMI. documented as of this encounter (statuses as of 10/05/2022) [facility] History of Past illness Narrative* Problem Noted Date Resolved Date SUMMARY 01/19/2010 11/04/2011 Overview: 69 yo woman with HLD, COPD, hypothyroidism p/w chest pain and +troponin, consistent with NSTEMI. documented as of this encounter (statuses as of 11/13/2022) [facility] History of Past illness Narrative* Problem Noted Date Resolved Date SUMMARY 01/19/2010 11/04/2011 Overview: 69 yo woman with HLD, COPD, hypothyroidism p/w chest pain and +troponin, consistent with NSTEMI. documented as of this encounter (statuses as of 01/04/2023) [facility]2010 History of Past illness Narrative* Problem Noted Date Resolved Date SUMMARY 01/19/2010 11/04/2011 Overview: 69 yo woman with HLD, COPD, hypothyroidism p/w chest pain and +troponin, consistent with NSTEMI. documented as of this encounter (statuses as of 01/22/2023) [facility] History of Past illness Narrative* Problem Noted Date Resolved Date SUMMARY 01/19/2010 11/04/2011 Overview: 69 yo woman with HLD, COPD, hypothyroidism p/w chest pain and +troponin, consistent with NSTEMI. documented as of this encounter (statuses as of 01/25/2023) [facility] History of Past illness Narrative* Problem Noted Date Resolved Date SUMMARY 01/19/2010 11/04/2011 Overview: 69 yo woman with HLD, COPD, hypothyroidism p/w chest pain and +troponin, consistent with NSTEMI. documented as of this encounter (statuses as of 03/15/2023) [facility] History of Past illness Narrative* Problem Noted Date Resolved Date SUMMARY 01/19/2010 11/04/2011 Overview: 69 yo woman with HLD, COPD, hypothyroidism p/w chest pain and +troponin, consistent with NSTEMI. documented as of this encounter (statuses as of 04/09/2023) [facility] History of Past illness Narrative* Problem Noted Date Resolved Date SUMMARY 01/19/2010 11/04/2011 Overview: 69 yo woman with HLD, COPD, hypothyroidism p/w chest pain and +troponin, consistent with NSTEMI. documented as of this encounter (statuses as of 04/23/2023) [address]14-2010 History of Past illness Narrative* Problem Noted Date Resolved Date SUMMARY 01/19/2010 11/04/2011 Overview: 69 yo woman with HLD, COPD, hypothyroidism p/w chest pain and +troponin, consistent with NSTEMI. documented as of this encounter (statuses as of 05/13/2023) [place] [id number] History of Past illness Narrative* Problem Noted Date Resolved Date SUMMARY 01/19/2010 11/04/2011 Overview: 69 yo woman with HLD, COPD, hypothyroidism p/w chest pain and +troponin, consistent with NSTEMI. documented as of this encounter (statuses as of 05/13/2023) [address]14-2010 History of Past illness Narrative* Problem Noted Date Diagnosed Date Resolved Date SUMMARY 01/19/2010 11/04/2011 Overview: 69 yo woman with HLD, COPD, hypothyroidism p/w chest pain and +troponin, consistent with NSTEMI. documented as of this encounter (statuses as of 05/20/2023) [facility] History of Past illness Narrative* Problem Noted Date Diagnosed Date Resolved Date SUMMARY 01/19/2010 11/04/2011 Overview: 69 yo woman with HLD, COPD, hypothyroidism p/w chest pain and +troponin, consistent with NSTEMI. documented as of this encounter (statuses as of 06/29/2023) [place] [id number] History of Past illness Narrative* Problem Noted Date Diagnosed Date Resolved Date SUMMARY 01/19/2010 11/04/2011 Overview: 69 yo woman with HLD, COPD, hypothyroidism p/w chest pain and +troponin, consistent with NSTEMI. documented as of this encounter (statuses as of 07/08/2023) [facility]2010 History of Past illness Narrative* Problem Noted Date Diagnosed Date Resolved Date SUMMARY 01/19/2010 11/04/2011 Overview: 69 yo woman with HLD, COPD, hypothyroidism p/w chest pain and +troponin, consistent with NSTEMI. documented as of this encounter (statuses as of 07/14/2023) [facility] History of Past illness Narrative* Problem Noted Date Diagnosed Date Resolved Date SUMMARY 01/19/2010 11/04/2011 Overview: 69 yo woman with HLD, COPD, hypothyroidism p/w chest pain and +troponin, consistent with NSTEMI. documented as of this encounter (statuses as of 07/23/2023) [place] [id number] History of Past illness Narrative* Problem Noted Date Diagnosed Date Resolved Date SUMMARY 01/19/2010 11/04/2011 Overview: 69 yo woman with HLD, COPD, hypothyroidism p/w chest pain and +troponin, consistent with NSTEMI. documented as of this encounter (statuses as of 08/30/2023) [facility] History of Past illness Narrative* Problem Noted Date Diagnosed Date Resolved Date SUMMARY 01/19/2010 11/04/2011 Overview: 69 yo woman with HLD, COPD, hypothyroidism p/w chest pain and +troponin, consistent with NSTEMI. documented as of this encounter (statuses as of 08/30/2023) [facility] History of Past illness Narrative* Problem Noted Date Diagnosed Date Resolved Date SUMMARY 01/19/2010 11/04/2011 Overview: 69 yo woman with HLD, COPD, hypothyroidism p/w chest pain and +troponin, consistent with NSTEMI. documented as of this encounter (statuses as of 08/31/2023) [facility]2010 History of Past illness Narrative* Problem Noted Date Diagnosed Date Resolved Date SUMMARY 01/19/2010 11/04/2011 Overview: 69 yo woman with HLD, COPD, hypothyroidism p/w chest pain and +troponin, consistent with NSTEMI. documented as of this encounter (statuses as of 10/11/2023) [facility]2010 History of Past illness Narrative* Problem Noted Date Diagnosed Date Resolved Date SUMMARY 01/19/2010 11/04/2011 Overview: 69 yo woman with HLD, COPD, hypothyroidism p/w chest pain and +troponin, consistent with NSTEMI. documented as of this encounter (statuses as of 10/18/2023) [facility]2010 History of Past illness Narrative* Problem Noted Date Diagnosed Date Resolved Date SUMMARY 01/19/2010 11/04/2011 Overview: 69 yo woman with HLD, COPD, hypothyroidism p/w chest pain and +troponin, consistent with NSTEMI. documented as of this encounter (statuses as of 10/22/2023) [facility]2010 History of Past illness Narrative* Problem Noted Date Diagnosed Date Resolved Date SUMMARY 01/19/2010 11/04/2011 Overview: 69 yo woman with HLD, COPD, hypothyroidism p/w chest pain and +troponin, consistent with NSTEMI. documented as of this encounter (statuses as of 12/10/2023) [facility]2010 History of Past illness Narrative* Problem Noted Date Diagnosed Date Resolved Date SUMMARY 01/19/2010 11/04/2011 Overview: 69 yo woman with HLD, COPD, hypothyroidism p/w chest pain and +troponin, consistent with NSTEMI. documented as of this encounter (statuses as of 12/14/2023) [facility]2010 History of Past illness Narrative* Problem Noted Date Diagnosed Date Resolved Date SUMMARY 01/19/2010 11/04/2011 Overview: 69 yo woman with HLD, COPD, hypothyroidism p/w chest pain and +troponin, consistent with NSTEMI. documented as of this encounter (statuses as of 12/16/2023) [place] [id number] History of Past illness Narrative* Problem Noted Date Diagnosed Date Resolved Date SUMMARY 01/19/2010 11/04/2011 Overview: 69 yo woman with HLD, COPD, hypothyroidism p/w chest pain and +troponin, consistent with NSTEMI. documented as of this encounter (statuses as of 12/21/2023) [facility]2010 History of Past illness Narrative* Problem Noted Date Diagnosed Date Resolved Date SUMMARY 01/19/2010 11/04/2011 Overview: 69 yo woman with HLD, COPD, hypothyroidism p/w chest pain and +troponin, consistent with NSTEMI. documented as of this encounter (statuses as of 12/21/2023) [facility]2010 History of Past illness Narrative* Problem Noted Date Diagnosed Date Resolved Date SUMMARY 01/19/2010 11/04/2011 Overview: 69 yo woman with HLD, COPD, hypothyroidism p/w chest pain and +troponin, consistent with NSTEMI. documented as of this encounter (statuses as of 12/22/2023) [facility]2010 History of Past illness Narrative* Problem Noted Date Diagnosed Date Resolved Date SUMMARY 01/19/2010 11/04/2011 Overview: 69 yo woman with HLD, COPD, hypothyroidism p/w chest pain and +troponin, consistent with NSTEMI. documented as of this encounter (statuses as of 12/24/2023) [facility]2010 History of Past illness Narrative* Problem Noted Date Diagnosed Date Resolved Date SUMMARY 01/19/2010 11/04/2011 Overview: 69 yo woman with HLD, COPD, hypothyroidism p/w chest pain and +troponin, consistent with NSTEMI. documented as of this encounter (statuses as of 01/07/2024) [facility]2010 History of Past illness Narrative* Problem Noted Date Diagnosed Date Resolved Date SUMMARY 01/19/2010 11/04/2011 Overview: 69 yo woman with HLD, COPD, hypothyroidism p/w chest pain and +troponin, consistent with NSTEMI. documented as of this encounter (statuses as of 01/10/2024) [facility]2010 History of Past illness Narrative* Problem Noted Date Diagnosed Date Resolved Date SUMMARY 01/19/2010 11/04/2011 Overview: 69 yo woman with HLD, COPD, hypothyroidism p/w chest pain and +troponin, consistent with NSTEMI. documented as of this encounter (statuses as of 01/20/2024) [facility]2010 History of Past illness Narrative* Problem Noted Date Diagnosed Date Resolved Date SUMMARY 01/19/2010 11/04/2011 Overview: 69 yo woman with HLD, COPD, hypothyroidism p/w chest pain and +troponin, consistent with NSTEMI. documented as of this encounter (statuses as of 01/26/2024) [facility]2010 History of Past illness Narrative* Problem Noted Date Diagnosed Date Resolved Date SUMMARY 01/19/2010 11/04/2011 Overview: 69 yo woman with HLD, COPD, hypothyroidism p/w chest pain and +troponin, consistent with NSTEMI. documented as of this encounter (statuses as of 01/27/2024) [facility]2010 History of Past illness Narrative* Problem Noted Date Diagnosed Date Resolved Date SUMMARY 01/19/2010 11/04/2011 Overview: 69 yo woman with HLD, COPD, hypothyroidism p/w chest pain and +troponin, consistent with NSTEMI. documented as of this encounter (statuses as of 02/11/2024) [facility] Date No Information [facility] Work Phone: Discharge summary* Clinical Note Date No Information [facility] Work Phone: Evaluation note* Diagnosis Arthritis of both knees- Primary Unspecified arthropathy, lower leg Osteoarthritis, unspecified osteoarthritis type, unspecified site Medication management Encounter for long-term (current) use of other medications [facility] Acquired hypothyroidism- Primary Unspecified hypothyroidism [facility]* Diagnosis Onset Date Resolution Status Dyspnea on minimal exertion acute Chronic diastolic (congestive) heart failure chronic Nicotine dependence chronic [facility] Work Phone: Evaluation note* Diagnosis Primary osteoarthritis of both knees- Primary Primary localized osteoarthrosis, lower leg Chronic pain of both knees [facility]* Diagnosis Essential hypertension- Primary Unspecified essential [...] esophagitis Esophageal reflux [facility] Diagnosis Primary osteoarthritis of both knees- Primary Primary localized osteoarthrosis, lower leg Chronic pain of both knees [facility]* Diagnosis Urine frequency- Primary Urinary frequency Arthritis of both knees Unspecified arthropathy, lower leg Osteoarthritis, unspecified osteoarthritis type, unspecified site Mass of right breast, unspecified quadrant [facility] Diagnosis Chronic pain of both knees- Primary Primary osteoarthritis of both knees Primary localized osteoarthrosis, lower leg [facility] Diagnosis Arthritis of both knees Unspecified arthropathy, lower leg Osteoarthritis, unspecified osteoarthritis type, unspecified site [facility] Diagnosis Medicare annual wellness visit, subsequent- [...] breast, unspecified laterality [facility]* Diagnosis Primary osteoarthritis of both knees- Primary Primary localized osteoarthrosis, lower leg [facility]* Diagnosis Arthritis of both knees Unspecified arthropathy, lower leg Osteoarthritis, unspecified osteoarthritis type, unspecified site [facility]* Diagnosis Discolored skin- Primary Dyschromia, unspecified Arthritis of both knees Unspecified arthropathy, lower leg Encounter for immunization Need for other specified prophylactic vaccination against single bacterial disease documented in this encounter [facility] noteNo assessment information availableW[facility] Work Phone: [facility]* Diagnosis Pain in both knees, unspecified chronicity- Primary [facility] Diagnosis Primary osteoarthritis of both knees- Primary Primary localized osteoarthrosis, lower leg Chronic pain of both knees [facility]* Diagnosis Acquired hypothyroidism- Primary Unspecified hypothyroidism documented in this encounter [facility] note* Diagnosis Arthritis of both knees Unspecified arthropathy, lower leg Osteoarthritis, unspecified osteoarthritis type, unspecified site [facility]* Diagnosis Essential hypertension- Primary Unspecified essential [...] of other medications [facility] Diagnosis Essential hypertension- Primary Unspecified essential hypertension Encounter for immunization Need for other specified prophylactic vaccination against single bacterial disease [facility]* Diagnosis Primary osteoarthritis of both knees- Primary Primary localized osteoarthrosis, lower leg Chronic pain of both knees [facility]* Diagnosis Acquired hypothyroidism- Primary Unspecified hypothyroidism [facility] Diagnosis Arthritis of both knees Unspecified arthropathy, lower leg Osteoarthritis, unspecified osteoarthritis type, unspecified site [facility]* Diagnosis Acquired hypothyroidism Unspecified hypothyroidism [facility]* Diagnosis Essential hypertension- Primary Unspecified essential hypertension [facility]* Diagnosis Coronary artery 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- Primary Decreased stamina Other malaise and fatigue [place] (dyspnea on exertion) Other dyspnea and respiratory abnormality Dizziness Dizziness and giddiness Jaundice Jaundice, unspecified, not of [facility]* Diagnosis Hyperkalemia- Primary Hyperpotassemia [facility]* Diagnosis Arthritis of both knees Unspecified arthropathy, lower leg Osteoarthritis, unspecified osteoarthritis type, unspecified site [facility] Diagnosis Chronic pain of both knees- Primary Primary osteoarthritis of both knees Primary localized osteoarthrosis, lower leg [facility]* Diagnosis Medicare annual wellness visit, subsequent- [...] of other medications [facility]* Diagnosis Essential hypertension- Primary Unspecified essential hypertension Acquired hypothyroidism Unspecified hypothyroidism [facility]* Diagnosis Arthritis of both knees Unspecified arthropathy, lower leg Osteoarthritis, unspecified osteoarthritis type, unspecified site [facility]* Diagnosis Essential hypertension- Primary Unspecified essential [...] major depressive disorder, in partial remission ([facility]) Anxiety Anxiety state, unspecified Low vitamin B12 level Other B-complex deficiencies Severe obstructive sleep apnea AHI 32.5 Obstructive sleep apnea (adult) (pediatric) Over weight Overweight Need for vaccination Need for prophylactic vaccination and inoculation against unspecified single disease [facility] Diagnosis Arthritis of both knees- Primary Unspecified arthropathy, lower leg Chronic pain of both knees [facility] Diagnosis Pre-operative examination- Primary Preoperative examination, [...] type, unspecified site [facility]* Diagnosis Pre-operative examination- Primary Preoperative examination, [...] of right shoulder [facility] Diagnosis Pre-operative examination- Primary Preoperative examination, [...] hypothyroidism Unspecified hypothyroidism [facility] Diagnosis Pre-operative examination- Primary Preoperative examination, [...] type, unspecified site [facility]* Diagnosis Oral mucocele- Primary Other and unspecified diseases of the oral soft tissues documented in this encounter [facility] Work Phone: Evaluation note* Diagnosis Pre-operative [...] of both knees [facility]* Diagnosis Pre-operative examination- Primary Preoperative examination, [...] type, unspecified site [facility]* Diagnosis Pre-operative examination- Primary Preoperative examination, [...] hypothyroidism Unspecified hypothyroidism documented in this encounter [facility] note* Diagnosis Pre-operative examination- Primary Preoperative [...] type, unspecified site documented in this encounter [facility] note* Diagnosis Pre-operative examination- Primary Preoperative [...] Dysphagia, unspecified type [facility] Diagnosis Pre-operative examination- Primary Preoperative examination, [...] Dysphagia, pharyngoesophageal phase [facility]* Diagnosis Pre-operative examination- Primary Preoperative examination, [...] of both knees [facility]* Diagnosis Pre-operative examination- Primary Preoperative examination, [...] emphysema type (HCC) [facility]* Diagnosis Pre-operative examination- Primary Preoperative examination, [...] history of tobacco use, presenting hazards to [facility] Coronary artery disease involving [place] coronary artery of [place] heart without angina pectoris documented [facility]* Diagnosis Pre-operative examination- Primary Preoperative examination, [...] Primary Generalized pain [facility]* Diagnosis Pre-operative examination- Primary Preoperative examination, [...] Other B-complex deficiencies documented in this encounter [facility] note* Diagnosis Pre-operative examination- Primary Preoperative [...] osteoarthrosis, lower leg [facility] Diagnosis Pre-operative examination- Primary Preoperative examination, [...] Pain Generalized pain [facility]* Diagnosis Pre-operative examination- Primary Preoperative examination, [...] unspecified cardiovascular conditions [facility] Diagnosis Pre-operative examination- Primary Preoperative examination, [...] Other B-complex deficiencies [facility] Diagnosis Pre-operative examination- Primary Preoperative examination, [...] pain, unspecified type [facility] Diagnosis Pre-operative examination- Primary Preoperative examination, [...] unspecified cardiovascular conditions [facility]* Diagnosis Pre-operative examination- Primary Preoperative examination, [...] type, unspecified site [facility] note* Clinical Note Date No Information [facility] Work Phone: History and physical note Author Antonio Daly [facility] Note Date/Time 2025 9:53 pm [facility] Medical Records Department [address] [place] [address] History & Physical Exam 06/04/252144 MR#: [id number] Acct: [id number] Name: ANNE MARIE GARZA Rep #:[id number] : 1940 85 From: Antonio Daly MD PCP: Dr. Max Rodriguez MD Status:REG ER Location: ED HPI - General General Date of Admission: 06/04/25 Date of Service: 06/04/25 Chief Complaint: Hypotension, shortness of breath on exertion HPI Narrative ANNE MARIE GARZA, is a 85 F who presents to the emergency room with chief complaintof hypotension. Patient was seen as an outpatient and followed up by cardiologylast and was told to hold her antihypertensive medications due to low blood pressure. Today she reported a blood pressure of 80/50 and was told by her ball maker to report to the emergency room for evaluation. Patient has been diagnosed with urinary tract infection and antibiotics have been changed due to ESBL diagnosis. Patient denies any dysuria but states her urine is frothy. Patient is scheduled to have a heart catheterization on June 18 due to increasing exertional shortness of breath and angina-like symptoms. Today inthe emergency room after treatment with meropenem patient was ambulating and felt dyspneic and hypoxic. She will be admitted and treated for IV antibiotics of urinary tract infection. Will continue to hold antihypertensive medications although her blood pressure is elevated at the time of my evaluation. Patient denies any chest pain, shortness of breath at rest and/or fevers or chills at present time. Patient has had some nausea and vomiting earlier today. [facility] Medical History History of ESBL E. coli infection Trigger middle finger of left hand Tobacco abuse Personal history of colonic polyps Osteoarthritis Heart attack Graves disease COPD (chronic obstructive pulmonary disease) CAD (coronary artery disease) Left ventricular diastolic dysfunction Chronic diastolic (congestive) heart failure Nicotine dependence Atherosclerosis of coronary artery of [place] heart without angina pectoris History of non-ST elevation myocardial infarction (NSTEMI) (12/21/19) Vertigo Essential hypertension Hypothyroidism Anxiety and depression MATT (obstructive sleep apnea) Obesity HLD (hyperlipidemia) Home Medications ?Medication ?Instructions ?Recorded ?Last Taken ?Type aspirin 81 mg chewable tablet 81 mg PO DAILY@0800 hear t health 05/07/20 05/06/20 History rosuvastatin 5 mg tablet 5 mg PO DAILY cholesterol 05/06/20 History omeprazole 40 mg capsule,delayed 40 mg PO BID 01/29/22 Unknown History release celecoxib 200 mg capsule (Celebrex) 200 mg PO BID 01/06 03/31 Unknown History duloxetine 30 mg capsule,delayed 30 mg PO QDAY 5 Unknown History release metoprolol succinate 50 mg 50 mg PO DAILY heart #90 ta bs 03/22/25 Unknown Rx tablet,extended release 24 hr tramadol 50 mg tablet 50 mg PO Q12H Pain Score 1-1 0 03/22/25 Unknown History valsartan 320 mg tablet 320 mg PO QDAY 03/22/25 Unkn own History nitrofurantoin 100 mg PO Q12 #10 CAPSULES 0 05/29/25 Unknown Rx monohydrate/macrocrystals 100 mg capsule albuterol sulfate 90 mcg/actuation 2 puff inhalation Q 4H PRN 05/30/25 Unknown History aerosol inhaler amlodipine 10 mg tablet 10 mg PO QDAY 05/30/25 Unkno wn History levothyroxine 137 mcg tablet 137 mcg PO MOTUWETHFR Unknown History (Levoxyl) levothyroxine 137 mcg tablet 68.5 mcg PO SA 05/30/25 U nknown History (Synthroid) Allergy/AdvReac Type Severity Reaction Status Date / Time iodine Allergy Severe Angioedema Verified 06/04/25 18:18 guaifenesin (From Mucinex) Allergy Mild Other Verified 06/04/25 18:18 ticagrelor (From Brilinta) AdvReac Severe Shortness Verified 06/04/25 18:18 of breath varenicline (From Chantix) AdvReac Severe Other Verified 06/04/25 18:18 Family History Father CAD (coronary artery disease) Prostate cancer Brother Alzheimer's disease Daughter Breast cancer Daughter Breast cancer Surgical History History of coronary artery stent placement (12/21/19) Social History Smoking Status: Former smoker Tobacco: How many years used: 45 Electronic Cigarette Use: with nicotine and not used how long ago did patient quit smokin10/2023 second hand exposure: No alcohol intake: current alcohol intake frequency: a few times a week substance use type: does not use ROS Constitutional Constitutional: Reports weakness; Denies chills or fever(s) Eyes Eyes: Denies blurry vision ENT HEENT: Denies abnormal hearing Cardiovascular Cardiovascular: Denies chest pain Respiratory/Chest Respiratory/Chest: Reports shortness of breath with exertion Gastrointestinal Gastrointestinal: Reports nausea and vomiting; Denies abdominal pain Genitourinary Genitourinary: Reports urinary urgency; Denies dysuria Musculoskeletal Musculoskeletal: Denies back pain Integumentary Integumentary: Denies dry skin Neurologic Neurologic: Denies abnormal speech or confusion Psychiatric Psychiatric: Denies anxiety Vital Signs Vital Signs Vital Signs: 06/04/25 18:17 06/04/25 18:18 06/04/25 18:24 Temperature 98.9 F 99.2 F H Temperature Source Oral Oral Pulse Rate 103 H 90 Respiratory Rate 16 22 H Respiratory Effort Respiratory Pattern Blood Pressure 124/74 H 161/58 H Blood Pressure Mean 90 92 Pulse Ox 95 94 94 Oxygen Delivery Method Room Air Room Air Room Air 06/04/25 18:25 06/04/25 19:18 06/04/25 20:00 Temperature 98.7 F 98 F Temperature Source Oral Oral Pulse Rate 84 85 Respiratory Rate 20 H 31 H Respiratory Effort Labored Respiratory Pattern Tachypnea Blood Pressure 131/69 H 128/81 H Blood Pressure Mean 89 96 Pulse Ox 99 97 Oxygen Delivery Method Room Air Room Air 06/04/25 21:24 Temperature 98.1 F Temperature Source Oral Pulse Rate 93 Respiratory Rate 22 H Respiratory Effort Respiratory Pattern Blood Pressure 165/69 H Blood Pressure Mean 101 Pulse Ox 94 Oxygen Delivery Method Room Air Weight Weight: 182 lb 12.8 oz Body Mass Index (BMI) 31.4 Physical Exam Const oriented x3 General Appearance: cooperative and well developed HEENT normocephalic and head/scalp atraumatic Eyes PERRL Neck no lymphadenopathy Lymph Lymphatic: no lymphadenopathy noted Resp normal respiratory effort, normal air movement and clear to auscultation bilaterally Cardio regular rate, regular rhythm, S1 normal heart sound and S2 normal heart sound GI normal to inspection, nondistended, normoactive bowel sounds Extremity normal capillary refill Skin General Skin Exam: no breakdown Neuro no focal motor deficits and no sensory deficits noted Speech: speech normal Psych thought process normal and cooperative Appearance: appropriate Results Lab / Micro Data 06/04/25 18:47 06/04/25 18:47 Labs: Laboratory Results - last 24 hr 06/04/25 18:47: WBC 7.7, RBC 4.31, Hgb 11.8 L, Hct 37.0, MCV 85.8, MCH 27.4, MCHC 31.9 L, RDW Std Deviation 47.0 H, RDW Coeff of Kal 14.7 H, Plt Count 330, MPV 10.1, Immature Gran % (Auto) 0.400, Neut % (Auto) 60.1, Lymph % (Auto) 21.7,[place] % (Auto) 8.8, Eos % (Auto) 8.4 H, Baso % (Auto) 0.6, Absolute Neuts (auto) 4.7, Absolute Lymphs (auto) 1.68, Nucleated RBC % 0, PT 12.8, INR 0.9, APTT 28.5, Sodium 141, Potassium 4.1, Chloride 105, Carbon Dioxide 23.1, Anion Gap 12, BUN 27 H, Creatinine 1.34 H, Estim Creat Clear Calc 32.56 L, Est GFR (MDRD) Non-Af 39 L, BUN/Creatinine Ratio 20.1 H, Glucose 95, Lactic Acid 1.5, Calcium 8.8, Total Bilirubin 0.21, AST 24, ALT 26, Alkaline Phosphatase 94, Troponin T High Sens 17 H D, NT pro BNP II 1032, Total Protein 6.5, Albumin 3.5, Globulin 3.0, Albumin/Globulin Ratio 1.1 06/04/25 19:39: Urine Color Yellow, Urine Clarity Sl. Cloudy, Urine pH 6.0, Ur Specific [place] 1.025, Urine Protein 30 H, Urine Glucose (UA) Normal, Urine Ketones Negative, Urine Occult Blood 10 H, Urine Nitrite Negative, Urine Bilirubin Negative, Urine Urobilinogen 4 H, Ur Leukocyte Esterase 100 H, Urine RBC 0-5 SEEN, Urine WBC 10-25 SEEN, Ur Squamous Epith Cells 10-25 SEEN, Urine Bacteria 2+, Urine Mucus 0 SEEN Imaging Radiology Impression Chest X-Ray 06/04/25 19:09 IMPRESSION: Moderate emphysema. No focal consolidation or pleural effusion. Reading Location: [id number] Assessment & Plan Assessment/Plan (1) Generalized weakness: (2) History of ESBL E. coli infection: (3) Dyspnea on exertion: (4) Essential hypertension: (5) HLD (hyperlipidemia): QUALIFIERS: Hyperlipidemia type: pure hypercholesterolemia Qualified Code(s): E78.00 - Pure hypercholesterolemia, unspecified PLAN: Plan 1 generalized weakness secondary to urinary tract infection?admit patient to progressive care unit, continue meropenem initiated in the emergency room. CBC BMP in the a.m. IV normal saline 75 cc/h 2. Dyspnea on exertion?oxygen support, advised patient to continue plan for heart catheterization June 18 and that would be more appropriate to wait for IV antibiotic therapy to be complete prior to heart catheterization 3. Hypertension?patient has been hypotensive prior to arrival and will continueto hold her antihypertensive medication and address as needed as blood pressure improves 4. Hyperlipidemia?continue statin medication 5. DVT prophylaxis?SCDs Charges/Coding Visit Charges Inpatient E&M: 54151 Init Hosp L2 06/04/25 2153 <Electronically signed by Antonio Daly MD> Cosigner Signature (if applicable): CC: Dr. Max Rodriguez MD; Dr. Antonio Daly MD~ Signed [facility] Work Phone: Hospital Discharge instructions Additional Instructions Follow-up with Dr. Nicholas's office on as scheduled.[facility] Work Phone: Hospital Discharge instructionsAdditional Instructions Cardiac workup negative. CT angiogram chest negative for PE. Discussed with cardio Dr. Damon, call Wednesday to follow-up with Dr. Rasmussen for evaluation further testing.[facility] Work Phone: Progress note* Clinical Note Date No Information [facility] Work Phone: Reason for referral (narrative)* Diagnostic Procedure Only (Routine) - Authorized Specialty Diagnoses / Procedures Referred By Contac t Referred To Contact US IMAGING Diagnoses RLQ abdominal pain Procedures US FEMALE PELVIS TRANSVAG US TRANSVAGINAL Max Rodriguez MD [address] [place] [address] Us Imaging Referral ID Status Reason Start Date Expiration Date Visits Requested Visits Authorized [id number] Authorized Auto-Generat ed Referral 07/08/2022 08/07/2023 1 1 * Diagnostic Procedure Only (Routine) - Authorized Specialty Diagnoses / Procedures Referred By Contac t Referred To Contact US IMAGING Diagnoses RLQ abdominal pain Procedures US ABDOMEN COMPLETE US ABDOMINAL REAL TIME W/IMAGE DOCUMENTATION Max Rodriguez MD [address] [place] [address] Us Imaging Referral ID Status Reason Start Date Expiration Date Visits Requested Visits Authorized [id number] Authorized Auto-Generat ed Referral 07/08/2022 08/07/2023 1 1 [facility] for referral (narrative)* Outpatient Procedure (Routine) - Authorized Specialty Diagnoses / Procedures Referred By Contac t Referred To Contact [facility] [place] Diagnoses Discolored skin Procedures PVR ANK PRESS EYAL VAS LAB NON-INVAS PHYSIOLOGIC STD EXTREMITY ART 2 LEVEL Nicole Zhang APRN.CNP [address] [place] [address] [address] Referral ID Status Reason Start Date Expiration Date Visits Requested Visits Authorized [id number] Authorized Auto-Generat ed Referral 04/22/2023 04/21/2024 1 1 [facility] for referral (narrative)* Diagnostic Procedure Only (Routine) - Pending Review Specialty Diagnoses / Procedures Referred By Contac t Referred To Contact XR IMAGING Diagnoses Pain in both knees, unspecified chronicity Procedures XR KNEE GENERAL 4V AP BOTH/PA BOTH/LAT/MERC BILATERAL RADIOLOGIC EXAM KNEE COMPLETE 4/MORE VIEWS Bob Whiteside MD [address] [place] [address] Xr Imaging Referral ID Status Reason Start Date Expiration Date Visits Requested Visits Authorized [id number] Pending Review Auto-Generat ed Referral 05/19/2023 06/17/2024 1 1 [facility] for referral (narrative)* Outpatient Procedure (Routine) - Authorized Specialty Diagnoses / Procedures Referred By Contac t Referred To Contact [facility] [place] Diagnoses Dizziness Procedures US CAROTID ARTERIES EYAL VAS LAB DUPLEX SCAN EXTRACRANIAL ART COMPL BI STUDY Max Rodriguez MD [address] [place] [address] [facility] [address] [address] Referral ID Status Reason Start Date Expiration Date Visits Requested Visits Authorized [id number] Authorized Auto-Generat ed Referral 12/21/2023 12/20/2024 1 1 * Diagnostic Procedure Only (Urgent) - Pending Review Specialty Diagnoses / Procedures Referred By Skip t Referred To Contact MOLECULAR & FUNCTIONAL IMAGING Diagnoses Coronary artery 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 Decreased stamina [place] (dyspnea on exertion) Dizziness Procedures NM CARDIAC PERF STRESS/PHARM MYOCARDIAL SPECT MULTIPLE STUDIES Max Rodriguez MD [address] [place] [address] Molecular & Functional Imaging [address] [place] [address] Referral ID Status Reason Start Date Expiration Date Visits Requested Visits Authorized [id number] Pending Review Auto-Generat ed Referral 12/21/2023 01/19/2025 1 1 [facility] for referral (narrative)* Diagnostic Procedure Only (Routine) - Closed Specialty Diagnoses / Procedures Referred By Skip warren Referred To Contact XR IMAGING Diagnoses Acute pain of right shoulder Procedures XR SHOULDER GENERAL 3V OR MORE AP/TRUE AP/OTHER RIGHT RADEX SHOULDER COMPLETE MINIMUM 2 VIEWS Max Rodriguez MD [address] [place] [address] Xr Imaging [facility] Referral ID Status Reason Start Date Expiration Date V isits Requested Visits Authorized [id number] Closed Auto-Generate d Referral 12/08/2023 01/06/2025 1 1 [facility] for referral (narrative)No reason for referral information [facility] Work Phone: Reason for referral (narrative)* Reason For Referral No Information [facility] Work Phone: Reason for visit Narrative* Diagnostic Procedure Only (Routine) - Closed Specialty Diagnoses / Procedures Referred By Skip t Referred To Contact XR IMAGING Diagnoses Acute pain of right shoulder Procedures XR SHOULDER GENERAL 3V OR MORE AP/TRUE AP/OTHER RIGHT RADEX SHOULDER COMPLETE MINIMUM 2 VIEWS Max Rodriguez MD [address] [place] [address] [place] [address] Referral ID Status Reason Start Date Expiration Date V isits Requested Visits Authorized [id number] Closed Auto-Generate d Referral 12/08/2023 01/06/2025 1 1 [facility] for visit Narrative* Diagnostic Procedure Only (Routine) - Closed Specialty Diagnoses / Procedures Referred By Contac t Referred To Contact XR IMAGING Diagnoses Pain Procedures XR HIP GENERAL 3V PELV/AP/LAT RIGHT XR HIP GENERAL 3V PELV/AP/LAT RIGHT RADEX HIP UNILATERAL WITH PELVIS 2-3 VIEWS Papi Beltran MD [address] [facility] [address] [place] [address] Phone: tel: fax: [place] [address] Referral ID Status Reason Start Date Expiration Date V isits Requested Visits Authorized [id number] Closed Auto-Generate d Referral 01/26/2025 02/25/2026 1 1 [facility] for visit Narrative* MRI/CT (Urgent) - Closed Specialty Diagnoses / Procedures Referred By Contac t Referred To Contact CT IMAGING Diagnoses Encounter for screening for cardiovascular disorders Procedures CT CALCIUM SCORING (CARDIAC) WO IVCON CT HEART NO CONTRAST QUANT EVAL CORONRY CALCIUM Nicole Zhang, CAKE TESTER.CURRENCY EXCHANGE SPECIALIST [address] [place] [address] Phone: tel: fax: [place] [address] Referral ID Status Reason Start Date Expiration Date V isits Requested Visits Authorized [id number] Closed Auto-Generated Referral Clearance Not Met -Financial Clearance Bypassed or Pt Declined to Pay 05/18/2025 06/17/2026 1 1 [facility] Summary Purpose Family History No Family History Records Found Relationship Condition Age at Onset Recorded Date/T chris father Coronary artery disease Unknown Malignant neoplasm of prostate Unknown brother Alzheimer's disease Unknown daughter Malignant neoplasm of breast Unknown Family Member Type Diagnosis Age At Onset Father Problem prostate cancer Mother Problem hypertension Advance Directives No Advanced Directives Records FoundDocuments on File Type Date Recorded Patient Line Clearance Foreman Expl anation Advance Directive(s) 06/24/2016 1:22 PM Date Activated Date Inactivated Comments 12/30/2018 9:45 AM 12/31/2018 6:25 PM Question Answer Comments Full Code Order Discussed With: Patient Documents on File Type Date Recorded Patient Line Clearance Foreman Expl anation Advance Directive(s) 07/02/2021 7:36 AM [...] Will Yes December 05 1:04pm Power of Tool Technician Yes December 05, 2021 1:04pm Documents on File Type Date Recorded Patient Line Clearance Foreman Expl anation Advance Directive(s) 06/24/2016 1:22 PM Latest Code Status on File Code Status Date Activated Date Inactivated Comments Full Code 12/30/2018 9:45 AM 12/31/2018 6:25 PM Advance Directive Response Recorded Date/ Time Advance Directives Yes December 05, 2021 12:03pm Living Will Yes May 06, 2023 3:30pm Power of Tool Technician Yes May 06 3:30pm Name of Medical Power of Tool Technician kailyn Mota May 06, 2023 3:30pm Advance Directive Response Recorded Date/ Time Name of Medical Power of Tool Technician kailyn Mota May 06, 2023 3:30pm Name of Medical Power of Tool Technician [place] May 12, 2023 11:25am Advance Directives Yes December 05, 2021 12:03pm Living Will Yes May 12, 2023 1 1:25am Power of Tool Technician Yes May 12, 2023 11:25am Latest Code [...] Will Yes December 13 7:07pm Power of Tool Technician Yes December 13, 2023 7:07pm Name of Medical Power of Tool Technician CHECO CASTANEDA December 13, 2023 7:07pm Advance Directive Response Recorded Date/ Time Name of Medical Power of Tool Technician CHECO CASTANEDA December 13, 2023 8:07pm Advance Directives Yes December 05, 2021 12:03pm Living Will Yes December 13 8:07pm Power of Tool Technician Yes December 13, 2023 8:07pm Date Activated Date Inactivated Comments 12/30/2018 9:45 AM 12/31/2018 6:25 PM Question Answer Comments Full Code Order Discussed With: Patient Advance Directive Response Recorded Date/ Time Advance Directives Yes December 05, 2021 12:03pm Advance Directive Response Recorded Date/ Time Living Will Yes December 13 8:07pm Do you have a Healthcare Power of Tool Technician? Yes December 13, 2023 8:07pm Advance Directives Yes December 05, 2021 12:03pm Directive Yes / No Effective Date File Name No Information Advance Directive Response Recorded Date/ Time Living Will Yes December 13 8:07pm Do you have a Healthcare Pow er of Tool Technician? Yes December 13, 2023 8:07pm Do you have a Healthcare Pow er of Tool Technician? Yes May 26, 2025 10:41am Name of Medical Power of Tool Technician KAILYN BAEZ May 26, 2025 10:41am Advance Directives Yes December 05, 2021 12:03pm Advance Directive Response Recorded Date/ Time Living Will Yes December 13 8:07pm Do you have a Healthcare Pow er of Tool Technician? Yes December 13, 2023 8:07pm Do you have a Healthcare Pow er of Tool Technician? Yes May 26, 2025 10:41am Name of Medical Power of Tool Technician KAILYN BAEZ May 26, 2025 10:41am Do you have a Healthcare Pow er of Tool Technician? Yes 2025 6:25pm Name of Medical Power of Tool Technician Kailyn Reveles 2025 6:25pm Advance Directives Yes December 05, 2021 12:03pm Advance Directive Response Recorded Date/ Time Living Will Yes December 13 8:07pm Do you have a Healthcare Pow er of Tool Technician? Yes December 13, 2023 8:07pm Do you have a Healthcare Pow er of Tool Technician? Yes May 26, 2025 10:41am Name of Medical Power of Tool Technician KAILYN REVELES- Doreen BAEZ May 26, 2025 10:41am Do you have a Healthcare Pow er of Tool Technician? Yes 2025 11:02pm Name of Medical Power of Tool Technician Kailyn Reveles 2025 6:25pm Advance Directives Yes December 05, 2021 12:03pm Chief Complaint and Reason for Visit Chief [...] Y FU March 22, 2025 7:54a m Chief Complaint Admit Date E-ORDER February 01, 2025 11: 04am 1 Y FU March 22, 2025 7:54a m CHEST PAIN May 26, 2025 10:1 1am Reason for Visit Admit Date Chronic diastolic (congestive) heart mary jane lure March 22, 2025 7:54am Essential hypertension March 22, 2025 7: 54am History of coronary artery stent placeme nt March 22, 2025 7:54am HLD (hyperlipidemia) March 22, 2025 7:54 am Dyspnea March 22, 2025 7:54a m Chief Complaint Admit Date E-ORDER February 01, 2025 11: 04am 1 Y FU March 22, 2025 7:54a m CHEST PAIN May 26, 2025 10:1 1am S/P [facility] 05/26May 30, 2025 1:50 pm Reason for Visit Admit Date Chronic diastolic (congestive) heart mary jane lure March 22, 2025 7:54am Essential hypertension March 22, 2025 7: 54am History of coronary artery stent placeme nt March 22, 2025 7:54am HLD (hyperlipidemia) March 22, 2025 7:54 am Dyspnea March 22, 2025 7:54a m Chronic diastolic (congestive) heart mary jane lure May 30, 2025 1:50pm Essential hypertension May 30, 2025 1 :50pm History of coronary artery stent placeme nt May 30, 2025 1:50pm HLD (hyperlipidemia) May 30, 2025 1:5 0pm Chief Complaint Admit Date 1 Y FU March 22, 2025 7:54a m CHEST PAIN May 26, 2025 10:1 1am S/P [facility] 05/26May 30, 2025 1:50 pm blood pessure 2025 9:45 pm GENERALIZED WEAKNESS, UTI, DYSPNEA ON EX ERTION 2025 9:53pm Reason for Visit Admit Date Chronic diastolic (congestive) heart mary jane lure March 22, 2025 7:54am Essential hypertension March 22, 2025 7: 54am History of coronary artery stent placeme nt March 22, 2025 7:54am HLD (hyperlipidemia) March 22, 2025 7:54 am Dyspnea March 22, 2025 7:54a m Chronic diastolic (congestive) heart mary jane lure May 30, 2025 1:50pm Dyspnea on minimal exertion May 30, 025 1:50pm Essential hypertension May 30, 2025 1 :50pm History of coronary artery stent placeme nt May 30, 2025 1:50pm HLD (hyperlipidemia) May 30, 2025 1:5 0pm Acute hypoxic respiratory failure May [id number] 9:53pm Dyspnea on exertion 2025 9:53 pm Generalized weakness 2025 9:5 3pm History of ESBL E. coli infection May [id number] 9:53pm Essential hypertension 2025 9 :53pm HLD (hyperlipidemia) 2025 9:5 3pm Chief Complaint Admit Date 1 Y FU March 22, 2025 7:54a m CHEST PAIN May 26, 2025 10:1 1am S/P [facility] 05/26May 30, 2025 1:50 pm blood pessure 2025 9:45 pm GENERALIZED WEAKNESS, UTI, DYSPNEA ON EX ERTION 2025 9:53pm GENERALIZED WEAKNESS, UTI, DYSPNEA ON EX ERTION June 05, 2025 8:08am GENERALIZED WEAKNESS, UTI, DYSPNEA ON EX ERTION June 06, 2025 4:04pm Reason for Visit Admit Date Chronic diastolic (congestive) heart mary jane lure March 22, 2025 7:54am Essential hypertension March 22, 2025 7: 54am History of coronary artery stent placeme nt March 22, 2025 7:54am HLD (hyperlipidemia) March 22, 2025 7:54 am Dyspnea March 22, 2025 7:54a m Chronic diastolic (congestive) heart mary jane lure May 30, 2025 1:50pm Dyspnea on minimal exertion May 30, 2 025 1:50pm Essential hypertension May 30, 2025 1 :50pm History of coronary artery stent placeme nt May 30, 2025 1:50pm HLD (hyperlipidemia) May 30, 2025 1:5 0pm Acute hypoxic respiratory failure May [id number] 9:53pm Dyspnea on exertion 2025 9:53 pm Generalized weakness 2025 9:5 3pm History of ESBL E. 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 2025 9:53pm Essential hypertension 2025 9 :53pm HLD (hyperlipidemia) 2025 9:5 3pm Chief Complaint Admit Date 1 Y FU March 22, 2025 7:54a m CHEST PAIN May 26, 2025 10:1 1am S/P [facility] 05/26May 30, 2025 1:50 pm blood pessure 2025 9:45 pm GENERALIZED WEAKNESS, UTI, DYSPNEA ON EX ERTION 2025 9:53pm GENERALIZED WEAKNESS, UTI, DYSPNEA ON EX ERTION June 05, 2025 8:08am GENERALIZED WEAKNESS, UTI, DYSPNEA ON EX ERTION June 06, 2025 4:04pm S/P [facility] 06/06 Dyspnea on Exertion June 072024 1:56pm Reason for Visit Admit Date Chronic diastolic (congestive) heart mary jane lure March 22, 2025 7:54am History of coronary artery stent placeme nt March 22, 2025 7:54am Dyspnea March 22, 2025 7:54a m Essential hypertension March 22, 2025 7: 54am HLD (hyperlipidemia) March 22, 2025 7:54 am Chronic diastolic (congestive) heart mary jane lure May 30, 2025 1:50pm Dyspnea on minimal exertion May 30, 1:50pm History of coronary artery stent placeme nt May 30, 2025 1:50pm Essential hypertension May 30, 2025 1 :50pm HLD (hyperlipidemia) May 30, 2025 1:5 0pm Dyspnea on exertion 2025 9:53 pm Acute hypoxic respiratory failure May [id number] 9:53pm Generalized weakness 2025 9:5 3pm 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 coli infection May 092024 9:53pm HLD (hyperlipidemia) 2025 9:5 3pm Chief Complaint Admit Date 1 Y FU March 22, 2025 7:54a m CHEST PAIN May 26, 2025 10:1 1am S/P [facility] 05/26May 30, 2025 1:50 pm blood pessure 2025 9:45 pm GENERALIZED WEAKNESS, UTI, DYSPNEA ON EX ERTION 2025 9:53pm GENERALIZED WEAKNESS, UTI, DYSPNEA ON EX ERTION June 05, 2025 8:08am SVT June 06, 2025 1:07 pm GENERALIZED WEAKNESS, UTI, DYSPNEA ON EX ERTION June 06, 2025 4:04pm S/P [facility] 06/06 Dyspnea on Exertion June 072024 1:56pm AFIB June 14, 2025 9:3 3am Reason for Visit Admit Date Chronic diastolic (congestive) heart mary jane lure March 22, 2025 7:54am History of coronary artery stent placeme nt March 22, 2025 7:54am Dyspnea March 22, 2025 7:54a m Essential hypertension March 22, 2025 7: 54am HLD (hyperlipidemia) March 22, 2025 7:54 am Chronic diastolic (congestive) heart mary jane lure May 30, 2025 1:50pm Dyspnea on minimal exertion May 30, 1:50pm History of coronary artery stent placeme nt May 30, 2025 1:50pm Essential hypertension May 30, 2025 1 :50pm HLD (hyperlipidemia) May 30, 2025 1:5 0pm Dyspnea on exertion 2025 9:53 pm Acute hypoxic respiratory failure May [id number] 9:53pm Generalized weakness 2025 9:5 3pm 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 coli infection May [id number] 9:53pm HLD (hyperlipidemia) 2025 9:5 3pm Atrial fibrillation with RVR June 07, 2025 1:56pm Dyspnea on exertion June 07, 2025 1:56 pm History of coronary artery stent placeme nt June 07, 2025 1:56pm Chief Complaint Admit Date 1 Y FU March 22, 2025 7:54a m CHEST PAIN May 26, 2025 10:1 1am S/P [facility] 05/26May 30, 2025 1:50 pm blood pessure 2025 9:45 pm GENERALIZED WEAKNESS, UTI, DYSPNEA ON EX ERTION 2025 9:53pm GENERALIZED WEAKNESS, UTI, DYSPNEA ON EX ERTION June 05, 2025 8:08am SVT June 06, 2025 1:07 pm GENERALIZED WEAKNESS, UTI, DYSPNEA ON EX ERTION June 06, 2025 4:04pm S/P [facility] 06/06 Dyspnea on Exertion June [id number] 1:56pm AFIB June 14, 2025 9:3 3am Atrial fibrillation June 14, 2025 10: 11am 1 M FU July 19, 2025 8:33am Reason for Visit Admit Date Chronic diastolic (congestive) heart mary jane lure March 22, 2025 7:54am History of coronary artery stent placeme nt March 22, 2025 7:54am Dyspnea March 22, 2025 7:54a m Essential hypertension March 22, 2025 7: 54am HLD (hyperlipidemia) March 22, 2025 7:54 am Chronic diastolic (congestive) heart mary jane lure May 30, 2025 1:50pm Dyspnea on minimal exertion May 30 1:50pm History of coronary artery stent placeme nt May 30, 2025 1:50pm Essential hypertension May 30, 2025 1 :50pm HLD (hyperlipidemia) May 30, 2025 1:5 0pm Dyspnea on exertion 2025 9:53 pm Acute hypoxic respiratory failure May [id number] 9:53pm Generalized weakness 2025 9:5 3pm 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 coli infection May [id number] 9:53pm HLD (hyperlipidemia) 2025 9:5 3pm Atrial fibrillation with RVR June 07, 2025 1:56pm Dyspnea on exertion June 07, 2025 1:56 pm History of coronary artery stent placeme nt June 07, 2025 1:56pm Atrial fibrillation with RVR July 092024 8:33am Dyspnea on exertion July 19, 2025 8:33am [facility]ox[facility] History of coronary artery stent placeme nt July 19, 2025 8:33am Medications Administered Section Inactive Administered Medications - [...] dose, Starting on 08/10/22 at 1045, Until Wed08/10/22 at 1045 Given [...] dose, Starting on 08/10/22 at 1045, Until Wed08/10/22 at 1045 Given [...] dose, Starting on Wed02/22/23 at 1054, Until 02/22/23 at 1054 Given 02/22/2023 10:54 AM EDT [...] Referral Specialty Diagnoses / Procedures Referred By Contac t Referred To Contact [facility] Diagnoses Pain in right hip Right lumbar pain Procedures CONSULT TO PHYSICAL THERAPY PHYSICAL THERAPY EVALUATION HIGH COMPLEX 45 MINS Max Rodriguez MD [address] [place] [address] [facility] [address] [place] [address] Referral ID Status Reason Start Date Expiration Date Visits Requested Visits Authorized [id number] Pending Review Auto-Generat ed Referral 08/02/2024 08/02/2025 1 1 Additional Source Comments INFORMATION SOURCE (unrecogn ized section and content) DATE CREATED AUTHOR 03/15/2019 [facility] DATE CREATED AUTHOR AUTHOR'S ORGANIZ ATION 10/30/2024 [facility] DATE CREATED AUTHOR AUTHOR'S ORGANIZ ATION 02/12/2025 [facility] DATE CREATED AUTHOR AUTHOR'S ORGANIZ ATION 05/27/2025 [facility] DATE CREATED AUTHOR AUTHOR'S ORGANIZ ATION 06/28/2025 [facility] DATE CREATED AUTHOR AUTHOR'S ORGANIZ ATION 07/28/2025 [facility] DATE CREATED AUTHOR AUTHOR'S ORGANIZ ATION 07/29/2025 [facility] Source Comments (unrecognize d section and content) In the event this informatio n is protected by the Federal Confidentiality of Alcohol and Drug Abuse Patient Records regulations: The Federal rules restrict any use of the information to criminally investigate or prosecute any alcohol or drug abuse patient.[facility] FoundationIn the event this information is protected by the Federal Confidentiality of Alcohol and Drug Abuse Patient Records regulations: The Federal rules restrict any use of the information to criminally investigate or prosecute any alcohol or drug abuse patient.[facility] FoundationIn the event this information is protected by the Federal Confidentiality of Alcohol and Drug Abuse Patient Records regulations: The Federal rules restrict any use of the information to criminally investigate or prosecute any alcohol or drug abuse patient.[facility] FoundationIn the event this information is protected by the Federal Confidentiality of Alcohol and Drug Abuse Patient Records regulations: The Federal rules restrict any use of the information to criminally investigate or prosecute any alcohol or drug abuse patient.[facility] FoundationIn the event this information is protected by the Federal Confidentiality of Alcohol and Drug Abuse Patient Records regulations: The Federal rules restrict any use of the information to criminally investigate or prosecute any alcohol or drug abuse patient.[facility] FoundationIn the event this information is protected by the Federal Confidentiality of Alcohol and Drug Abuse Patient Records regulations: The Federal rules restrict any use of the information to criminally investigate or prosecute any alcohol or drug abuse patient.[facility] FoundationIn the event this information is protected by the Federal Confidentiality of Alcohol and Drug Abuse Patient Records regulations: The Federal rules restrict any use of the information to criminally investigate or prosecute any alcohol or drug abuse patient.[facility] FoundationIn the event this information is protected by the Federal Confidentiality of Alcohol and Drug Abuse Patient Records regulations: The Federal rules restrict any use of the information to criminally investigate or prosecute any alcohol or drug abuse patient.[facility] FoundationIn the event this information is protected by the Federal Confidentiality of Alcohol and Drug Abuse Patient Records regulations: The Federal rules restrict any use of the information to criminally investigate or prosecute any alcohol or drug abuse patient.[facility] FoundationIn the event this information is protected by the Federal Confidentiality of Alcohol and Drug Abuse Patient Records regulations: The Federal rules restrict any use of the information to criminally investigate or prosecute any alcohol or drug abuse patient.[facility] FoundationIn the event this information is protected by the Federal Confidentiality of Alcohol and Drug Abuse Patient Records regulations: The Federal rules restrict any use of the information to criminally investigate or prosecute any alcohol or drug abuse patient.[facility] FoundationIn the event this information is protected by the Federal Confidentiality of Alcohol and Drug Abuse Patient Records regulations: The Federal rules restrict any use of the information to criminally investigate or prosecute any alcohol or drug abuse patient.[facility] FoundationIn the event this information is protected by the Federal Confidentiality of Alcohol and Drug Abuse Patient Records regulations: The Federal rules restrict any use of the information to criminally investigate or prosecute any alcohol or drug abuse patient.[facility] FoundationIn the event this information is protected by the Federal Confidentiality of Alcohol and Drug Abuse Patient Records regulations: The Federal rules restrict any use of the information to criminally investigate or prosecute any alcohol or drug abuse patient.[facility] FoundationIn the event this information is protected by the Federal Confidentiality of Alcohol and Drug Abuse Patient Records regulations: The Federal rules restrict any use of the information to criminally investigate or prosecute any alcohol or drug abuse patient.[facility] FoundationIn the event this information is protected by the Federal Confidentiality of Alcohol and Drug Abuse Patient Records regulations: The Federal rules restrict any use of the information to criminally investigate or prosecute any alcohol or drug abuse patient.[facility] FoundationIn the event this information is protected by the Federal Confidentiality of Alcohol and Drug Abuse Patient Records regulations: The Federal rules restrict any use of the information to criminally investigate or prosecute any alcohol or drug abuse patient.[facility] FoundationIn the event this information is protected by the Federal Confidentiality of Alcohol and Drug Abuse Patient Records regulations: The Federal rules restrict any use of the information to criminally investigate or prosecute any alcohol or drug abuse patient.[facility] FoundationIn the event this information is protected by the Federal Confidentiality of Alcohol and Drug Abuse Patient Records regulations: The Federal rules restrict any use of the information to criminally investigate or prosecute any alcohol or drug abuse patient.[facility] FoundationIn the event this information is protected by the Federal Confidentiality of Alcohol and Drug Abuse Patient Records regulations: The Federal rules restrict any use of the information to criminally investigate or prosecute any alcohol or drug abuse patient.[facility] FoundationIn the event this information is protected by the Federal Confidentiality of Alcohol and Drug Abuse Patient Records regulations: The Federal rules restrict any use of the information to criminally investigate or prosecute any alcohol or drug abuse patient.[facility] FoundationIn the event this information is protected by the Federal Confidentiality of Alcohol and Drug Abuse Patient Records regulations: The Federal rules restrict any use of the information to criminally investigate or prosecute any alcohol or drug abuse patient.[facility] FoundationIn the event this information is protected by the Federal Confidentiality of Alcohol and Drug Abuse Patient Records regulations: The Federal rules restrict any use of the information to criminally investigate or prosecute any alcohol or drug abuse patient.[facility] FoundationIn the event this information is protected by the Federal Confidentiality of Alcohol and Drug Abuse Patient Records regulations: The Federal rules restrict any use of the information to criminally investigate or prosecute any alcohol or drug abuse patient.[facility] FoundationIn the event this information is protected by the Federal Confidentiality of Alcohol and Drug Abuse Patient Records regulations: The Federal rules restrict any use of the information to criminally investigate or prosecute any alcohol or drug abuse patient.[facility] FoundationIn the event this information is protected by the Federal Confidentiality of Alcohol and Drug Abuse Patient Records regulations: The Federal rules restrict any use of the information to criminally investigate or prosecute any alcohol or drug abuse patient.[facility] FoundationIn the event this information is protected by the Federal Confidentiality of Alcohol and Drug Abuse Patient Records regulations: The Federal rules restrict any use of the information to criminally investigate or prosecute any alcohol or drug abuse patient.[facility] FoundationIn the event this information is protected by the Federal Confidentiality of Alcohol and Drug Abuse Patient Records regulations: The Federal rules restrict any use of the information to criminally investigate or prosecute any alcohol or drug abuse patient.[facility] FoundationIn the event this information is protected by the Federal Confidentiality of Alcohol and Drug Abuse Patient Records regulations: The Federal rules restrict any use of the information to criminally investigate or prosecute any alcohol or drug abuse patient.[facility] FoundationIn the event this information is protected by the Federal Confidentiality of Alcohol and Drug Abuse Patient Records regulations: The Federal rules restrict any use of the information to criminally investigate or prosecute any alcohol or drug abuse patient.[facility] FoundationIn the event this information is protected by the Federal Confidentiality of Alcohol and Drug Abuse Patient Records regulations: The Federal rules restrict any use of the information to criminally investigate or prosecute any alcohol or drug abuse patient.[facility] FoundationIn the event this information is protected by the Federal Confidentiality of Alcohol and Drug Abuse Patient Records regulations: The Federal rules restrict any use of the information to criminally investigate or prosecute any alcohol or drug abuse patient.[facility] FoundationIn the event this information is protected by the Federal Confidentiality of Alcohol and Drug Abuse Patient Records regulations: The Federal rules restrict any use of the information to criminally investigate or prosecute any alcohol or drug abuse patient.[facility] FoundationIn the event this information is protected by the Federal Confidentiality of Alcohol and Drug Abuse Patient Records regulations: The Federal rules restrict any use of the information to criminally investigate or prosecute any alcohol or drug abuse patient.[facility] FoundationIn the event this information is protected by the Federal Confidentiality of Alcohol and Drug Abuse Patient Records regulations: The Federal rules restrict any use of the information to criminally investigate or prosecute any alcohol or drug abuse patient.[facility] FoundationIn the event this information is protected by the Federal Confidentiality of Alcohol and Drug Abuse Patient Records regulations: The Federal rules restrict any use of the information to criminally investigate or prosecute any alcohol or drug abuse patient.[facility] FoundationIn the event this information is protected by the Federal Confidentiality of Alcohol and Drug Abuse Patient Records regulations: The Federal rules restrict any use of the information to criminally investigate or prosecute any alcohol or drug abuse patient.[facility] FoundationIn the event this information is protected by the Federal Confidentiality of Alcohol and Drug Abuse Patient Records regulations: The Federal rules restrict any use of the information to criminally investigate or prosecute any alcohol or drug abuse patient.[facility] FoundationIn the event this information is protected by the Federal Confidentiality of Alcohol and Drug Abuse Patient Records regulations: The Federal rules restrict any use of the information to criminally investigate or prosecute any alcohol or drug abuse patient.[facility] FoundationIn the event this information is protected by the Federal Confidentiality of Alcohol and Drug Abuse Patient Records regulations: The Federal rules restrict any use of the information to criminally investigate or prosecute any alcohol or drug abuse patient.[facility] FoundationIn the event this information is protected by the Federal Confidentiality of Alcohol and Drug Abuse Patient Records regulations: The Federal rules restrict any use of the information to criminally investigate or prosecute any alcohol or drug abuse patient.[facility] FoundationIn the event this information is protected by the Federal Confidentiality of Alcohol and Drug Abuse Patient Records regulations: The Federal rules restrict any use of the information to criminally investigate or prosecute any alcohol or drug abuse patient.[facility] FoundationIn the event this information is protected by the Federal Confidentiality of Alcohol and Drug Abuse Patient Records regulations: The Federal rules restrict any use of the information to criminally investigate or prosecute any alcohol or drug abuse patient.[facility] FoundationIn the event this information is protected by the Federal Confidentiality of Alcohol and Drug Abuse Patient Records regulations: The Federal rules restrict any use of the information to criminally investigate or prosecute any alcohol or drug abuse patient.[facility] FoundationIn the event this information is protected by the Federal Confidentiality of Alcohol and Drug Abuse Patient Records regulations: The Federal rules restrict any use of the information to criminally investigate or prosecute any alcohol or drug abuse patient.[facility] FoundationIn the event this information is protected by the Federal Confidentiality of Alcohol and Drug Abuse Patient Records regulations: The Federal rules restrict any use of the information to criminally investigate or prosecute any alcohol or drug abuse patient.[facility] FoundationIn the event this information is protected by the Federal Confidentiality of Alcohol and Drug Abuse Patient Records regulations: The Federal rules restrict any use of the information to criminally investigate or prosecute any alcohol or drug abuse patient.[facility] FoundationIn the event this information is protected by the Federal Confidentiality of Alcohol and Drug Abuse Patient Records regulations: The Federal rules restrict any use of the information to criminally investigate or prosecute any alcohol or drug abuse patient.[facility] FoundationIn the event this information is protected by the Federal Confidentiality of Alcohol and Drug Abuse Patient Records regulations: The Federal rules restrict any use of the information to criminally investigate or prosecute any alcohol or drug abuse patient.[facility] FoundationIn the event this information is protected by the Federal Confidentiality of Alcohol and Drug Abuse Patient Records regulations: The Federal rules restrict any use of the information to criminally investigate or prosecute any alcohol or drug abuse patient.[facility] FoundationIn the event this information is protected by the Federal Confidentiality of Alcohol and Drug Abuse Patient Records regulations: The Federal rules restrict any use of the information to criminally investigate or prosecute any alcohol or drug abuse patient.[facility] FoundationIn the event this information is protected by the Federal Confidentiality of Alcohol and Drug Abuse Patient Records regulations: The Federal rules restrict any use of the information to criminally investigate or prosecute any alcohol or drug abuse patient.[facility] FoundationIn the event this information is protected by the Federal Confidentiality of Alcohol and Drug Abuse Patient Records regulations: The Federal rules restrict any use of the information to criminally investigate or prosecute any alcohol or drug abuse patient.[facility] FoundationIn the event this information is protected by the Federal Confidentiality of Alcohol and Drug Abuse Patient Records regulations: The Federal rules restrict any use of the information to criminally investigate or prosecute any alcohol or drug abuse patient.[facility] FoundationIn the event this information is protected by the Federal Confidentiality of Alcohol and Drug Abuse Patient Records regulations: The Federal rules restrict any use of the information to criminally investigate or prosecute any alcohol or drug abuse patient.[facility] FoundationIn the event this information is protected by the Federal Confidentiality of Alcohol and Drug Abuse Patient Records regulations: The Federal rules restrict any use of the information to criminally investigate or prosecute any alcohol or drug abuse patient.[facility] FoundationIn the event this information is protected by the Federal Confidentiality of Alcohol and Drug Abuse Patient Records regulations: The Federal rules restrict any use of the information to criminally investigate or prosecute any alcohol or drug abuse patient.[facility] FoundationIn the event this information is protected by the Federal Confidentiality of Alcohol and Drug Abuse Patient Records regulations: The Federal rules restrict any use of the information to criminally investigate or prosecute any alcohol or drug abuse patient.[facility] FoundationIn the event this information is protected by the Federal Confidentiality of Alcohol and Drug Abuse Patient Records regulations: The Federal rules restrict any use of the information to criminally investigate or prosecute any alcohol or drug abuse patient.[facility] FoundationIn the event this information is protected by the Federal Confidentiality of Alcohol and Drug Abuse Patient Records regulations: The Federal rules restrict any use of the information to criminally investigate or prosecute any alcohol or drug abuse patient.[facility] FoundationIn the event this information is protected by the Federal Confidentiality of Alcohol and Drug Abuse Patient Records regulations: The Federal rules restrict any use of the information to criminally investigate or prosecute any alcohol or drug abuse patient.[facility] FoundationIn the event this information is protected by the Federal Confidentiality of Alcohol and Drug Abuse Patient Records regulations: The Federal rules restrict any use of the information to criminally investigate or prosecute any alcohol or drug abuse patient.[facility] FoundationIn the event this information is protected by the Federal Confidentiality of Alcohol and Drug Abuse Patient Records regulations: The Federal rules restrict any use of the information to criminally investigate or prosecute any alcohol or drug abuse patient.[facility] FoundationIn the event this information is protected by the Federal Confidentiality of Alcohol and Drug Abuse Patient Records regulations: The Federal rules restrict any use of the information to criminally investigate or prosecute any alcohol or drug abuse patient.[facility] FoundationIn the event this information is protected by the Federal Confidentiality of Alcohol and Drug Abuse Patient Records regulations: The Federal rules restrict any use of the information to criminally investigate or prosecute any alcohol or drug abuse patient.[facility] FoundationIn the event this information is protected by the Federal Confidentiality of Alcohol and Drug Abuse Patient Records regulations: The Federal rules restrict any use of the information to criminally investigate or prosecute any alcohol or drug abuse patient.[facility] FoundationIn the event this information is protected by the Federal Confidentiality of Alcohol and Drug Abuse Patient Records regulations: The Federal rules restrict any use of the information to criminally investigate or prosecute any alcohol or drug abuse patient.[facility] FoundationIn the event this information is protected by the Federal Confidentiality of Alcohol and Drug Abuse Patient Records regulations: The Federal rules restrict any use of the information to criminally investigate or prosecute any alcohol or drug abuse patient.[facility] FoundationIn the event this information is protected by the Federal Confidentiality of Alcohol and Drug Abuse Patient Records regulations: The Federal rules restrict any use of the information to criminally investigate or prosecute any alcohol or drug abuse patient.[facility] FoundationIn the event this information is protected by the Federal Confidentiality of Alcohol and Drug Abuse Patient Records regulations: The Federal rules restrict any use of the information to criminally investigate or prosecute any alcohol or drug abuse patient.[facility] FoundationIn the event this information is protected by the Federal Confidentiality of Alcohol and Drug Abuse Patient Records regulations: The Federal rules restrict any use of the information to criminally investigate or prosecute any alcohol or drug abuse patient.[facility] FoundationIn the event this information is protected by the Federal Confidentiality of Alcohol and Drug Abuse Patient Records regulations: The Federal rules restrict any use of the information to criminally investigate or prosecute any alcohol or drug abuse patient.[facility] FoundationIn the event this information is protected by the Federal Confidentiality of Alcohol and Drug Abuse Patient Records regulations: The Federal rules restrict any use of the information to criminally investigate or prosecute any alcohol or drug abuse patient.[facility] FoundationIn the event this information is protected by the Federal Confidentiality of Alcohol and Drug Abuse Patient Records regulations: The Federal rules restrict any use of the information to criminally investigate or prosecute any alcohol or drug abuse patient.[facility] FoundationIn the event this information is protected by the Federal Confidentiality of Alcohol and Drug Abuse Patient Records regulations: The Federal rules restrict any use of the information to criminally investigate or prosecute any alcohol or drug abuse patient.[facility] FoundationIn the event this information is protected by the Federal Confidentiality of Alcohol and Drug Abuse Patient Records regulations: The Federal rules restrict any use of the information to criminally investigate or prosecute any alcohol or drug abuse patient.[facility] FoundationIn the event this information is protected by the Federal Confidentiality of Alcohol and Drug Abuse Patient Records regulations: The Federal rules restrict any use of the information to criminally investigate or prosecute any alcohol or drug abuse patient.[facility] FoundationIn the event this information is protected by the Federal Confidentiality of Alcohol and Drug Abuse Patient Records regulations: The Federal rules restrict any use of the information to criminally investigate or prosecute any alcohol or drug abuse patient.[facility] FoundationIn the event this information is protected by the Federal Confidentiality of Alcohol and Drug Abuse Patient Records regulations: The Federal rules restrict any use of the information to criminally investigate or prosecute any alcohol or drug abuse patient.[facility] FoundationIn the event this information is protected by the Federal Confidentiality of Alcohol and Drug Abuse Patient Records regulations: The Federal rules restrict any use of the information to criminally investigate or prosecute any alcohol or drug abuse patient.[facility] FoundationIn the event this information is protected by the Federal Confidentiality of Alcohol and Drug Abuse Patient Records regulations: The Federal rules restrict any use of the information to criminally investigate or prosecute any alcohol or drug abuse patient.[facility] FoundationIn the event this information is protected by the Federal Confidentiality of Alcohol and Drug Abuse Patient Records regulations: The Federal rules restrict any use of the information to criminally investigate or prosecute any alcohol or drug abuse patient.[facility] FoundationIn the event this information is protected by the Federal Confidentiality of Alcohol and Drug Abuse Patient Records regulations: The Federal rules restrict any use of the information to criminally investigate or prosecute any alcohol or drug abuse patient.[facility] FoundationIn the event this information is protected by the Federal Confidentiality of Alcohol and Drug Abuse Patient Records regulations: The Federal rules restrict any use of the information to criminally investigate or prosecute any alcohol or drug abuse patient.[facility] FoundationIn the event this information is protected by the Federal Confidentiality of Alcohol and Drug Abuse Patient Records regulations: The Federal rules restrict any use of the information to criminally investigate or prosecute any alcohol or drug abuse patient.[facility] FoundationIn the event this information is protected by the Federal Confidentiality of Alcohol and Drug Abuse Patient Records regulations: The Federal rules restrict any use of the information to criminally investigate or prosecute any alcohol or drug abuse patient.[facility] FoundationIn the event this information is protected by the Federal Confidentiality of Alcohol and Drug Abuse Patient Records regulations: The Federal rules restrict any use of the information to criminally investigate or prosecute any alcohol or drug abuse patient.[facility] FoundationIn the event this information is protected by the Federal Confidentiality of Alcohol and Drug Abuse Patient Records regulations: The Federal rules restrict any use of the information to criminally investigate or prosecute any alcohol or drug abuse patient.[facility] FoundationIn the event this information is protected by the Federal Confidentiality of Alcohol and Drug Abuse Patient Records regulations: The Federal rules restrict any use of the information to criminally investigate or prosecute any alcohol or drug abuse patient.[facility] Reason for Visit (unrecogniz ed section and content) Reason Comments Established Patient Injections Specialty Diagnoses / Procedures Referred By Skip warren Referred To Contact Orthopedics / ORTHOPAEDIC SURGERY Diagnoses Pain in right knee Bilateral knee Cortisone Injection Procedures OFFICE/OUTPATIENT NEW HIGH MDM 60 MINUTES OFFICE/OUTPATIENT ESTABLISHED HIGH MDM 40 MIN CHENG ESTABLISH Max Rodriguez MD [address] [place] [address] Bob Whiteside MD [address] [place] [address] Referral ID Status Reason Start Date Expiration Date V isits Requested Visits Authorized [id number] Authorized 11/08/2023 11/07/2024 99 99 Reason Comments F/U 3 Month Reason Comments Results Reason Onset Date Comments Community Montoring Outreach 04/27/2022 Ins ight [facility] Enrollment Reason Comments 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 [...] Referred By Contac t Referred To Contact [facility] Diagnoses Pulmonary emphysema, unspecified emphysema type (HCC) Procedures LUNG DIFFUSION CAPACITY (DLCO) DIFFUSING CAPACITY Angela Haines MD [address] [place] [address] Phone: tel: fax: Respiratory [address] [address] Referral ID Status Reason Start Date Expiration Date V isits Requested Visits Authorized [id number] Closed Auto-Generate d Referral 01/16/2025 02/15/2026 1 1 Specialty Diagnoses / Procedures Referred By Contac t Referred To Contact [facility] Diagnoses Pulmonary emphysema, unspecified emphysema type (HCC) Procedures SPIROMETRY WITH DILATOR IF OBSTRUCTED BRNCDILAT RSPSE SPMTRY PRE&POST-BRNCDILAT ADMN Angela Haines MD [address] [place] [address] Phone: tel: fax: [address] [address] Referral ID Status Reason Start Date Expiration Date V isits Requested Visits Authorized [id number] Closed Auto-Generate d Referral 01/16/2025 02/15/2026 1 [...] MINUTES RI NEW COPD Max Rodriguez MD [address] [place] [address] Phone: tel: fax: Angela Haines MD [address] [place] [address] Phone: tel: fax: Referral ID Status Reason Start Date Expiration Date Visits Re quested Visits Authorized [id number] Closed 01/10/2025 11/07/2025 1 1 Reason Comments Breathing Problem Reason Onset Date Comments Results 01/26/2025 Reason Comments Outside [id number] Ordered Reason Comments New Pain Specialty Diagnoses / Procedures Referred By Skip t Referred To Contact Orthopedics / ORTHOPAEDIC SURGERY Diagnoses Encounter for consultation rt hip Procedures OFFICE/OUTPATIENT [facility] MDM 60 MINUTES CHENG NEW ORTH/SPORTS Papi Beltran MD [address] [facility] [place] [address] Phone: tel: fax: Papi Beltran MD [address] [place] [address] Phone: tel: fax: Referral ID Status Reason Start Date Expiration Date Visits Re quested Visits Authorized [id number] Closed 01/29/2025 11/07/2025 1 1 Reason Comments Outside Cardiology Reason Comments Medicare Wellness Exam Reason Comments Bilateral Knee Pain Reason Comments ER Discharge Summary Reason Onset Date Comments Allied Health Visit 05/30/2025 Medication a dherence outreach Reason Comments [facility] Reason Comments ER Discharge Summary H&P Reason Onset Date Comments Allied Health Visit 06/05/2025 Medication a dherence outreach Reason Onset Date Comments Refill Request 07/01/2025 Reason Comments ext document Cardio Care Teams (unrecognized sec tion and content) Communications Associate Relationship Specialty Start Date End Date Max Rodriguez MD [address] [place], [place] [id number] PCP - General Family Practice 03/22/14 Communications Associate Relationship Specialty Start Date End Date Max Rodriguez MD [address] [place], [place] [id number] PCP - General Family Practice 03/22/14 Communications Associate Relationship Specialty Start Date End Date Max Rodriguez MD [address] [place], [place] [id number] [phone] PCP - General Family Practice 03/22/14 Fernanda Armstrong RN [address] [place] [address] Virtualization Architect 04/28/2204/09 11/29 Ester Vargas RN Virtualization Architect Family Practice 04/28/22 Communications Associate Relationship Specialty Start Date End Date Max Rodriguez MD [address] [place] [address] PCP - General Family Practice 03/22/14 Ester Vargas RN Virtualization Architect Family Practice 04/28/22 Communications Associate Relationship Specialty Start Date End Date Max Rodriguez MD [address] [place] [address] PCP - General Family Practice 03/22/14 Ester Vargas RN Virtualization Architect Family Practice 04/28/22 Communications Associate Relationship Specialty Start Date End Date Max Rodriguez MD [address] [place] [address] PCP - General Family Medicine 03/22/14 Communications Associate Relationship Specialty Start Date End Date Max Rodriguez MD [address] [place] [address] PCP - General Family Medicine 03/22/14 Communications Associate Relationship Specialty Start Date End Date Max Rodriguez MD [address] [place] [address] PCP - General Family Medicine 03/22/14 Communications Associate Relationship Specialty Start Date End Date Max Rodriguez MD [address] [place] [address] PCP - General Family Medicine 03/22/14 Communications Associate Relationship Specialty Start Date End Date Max Rodriguez MD [address] [place] [address] PCP - General Family Medicine 03/22/14 Communications Associate Relationship Specialty Start Date End Date Max Rodriguez MD [address] [place] [address] PCP - General Family Medicine 03/22/14 Communications Associate Relationship Specialty Start Date End Date Max Rodriguez MD [address] [place] [address] PCP - General Family Medicine 03/22/14 Communications Associate Relationship Specialty Start Date End Date Max Rodriguez MD [address] [place] [address] PCP - General Family Medicine 03/22/14 Communications Associate Relationship Specialty Start Date End Date Max Rodriguez MD [address] [place] [address] PCP - General Family Medicine 03/22/14 Team [...] Dr. Chuyita Mccarty MD Emergency Provider Active Communications Associate Relationship Specialty Start Date End Date Max Rodriguez MD [address] [place] [address] PCP - General Family Medicine 03/22/14 Communications Associate Relationship Specialty Start Date End Date Max Rodriguez MD [address] [place] [address] PCP - General Family Medicine 03/22/14 Communications Associate Relationship Specialty Start Date End Date Max Rodriguez MD [address] [place] [address] PCP - General Family Medicine 03/22/14 Communications Associate Relationship Specialty Start Date End Date Max Rodriguez MD [address] [place] [address] PCP - General Family Medicine 03/22/14 Communications Associate Relationship Specialty Start Date End Date Max Rodriguez MD [address] [place] [address] PCP - General Family Medicine 03/22/14 Communications Associate Relationship Specialty Start Date End Date Max Rodriguez MD [address] [place] [address] PCP - General Family Medicine 03/22/14 Communications Associate Relationship Specialty Start Date End Date Max Rodriguez MD [address] [place] [address] PCP - General Family Medicine 03/22/14 Communications Associate Relationship Specialty Start Date End Date Max Rodriguez MD [address] [place] [address] PCP - General Family Medicine 03/22/14 Communications Associate Relationship Specialty Start Date End Date Max Rodriguez MD [address] [place] [address] PCP - General Family Medicine 03/22/14 Communications Associate Relationship Specialty Start Date End Date Max Rodriguez MD [address] [place] [address] PCP - General Family Medicine 03/22/14 Communications Associate Relationship Specialty Start Date End Date Max Rodriguez MD [address] [place] [address] PCP - General Family Medicine 03/22/14 Communications Associate Relationship Specialty Start Date End Date Max Rodriguez MD [address] [place] [address] PCP - General Family Medicine 03/22/14 Communications Associate Relationship Specialty Start Date End Date Max Rodriguez MD [address] [place] [address] PCP - General Family Medicine 03/22/14 Communications Associate Relationship Specialty Start Date End Date Max Rodriguez MD [address] [place] [address] PCP - General Family Medicine 03/22/14 Communications Associate Relationship Specialty Start Date End Date Max Rodriguez MD [address] [place] [address] PCP - General Family Medicine 03/22/14 Team Status: Inactive Member Role Status Dates Dr. Max Rodriguez MD Primary Care Provider, Referri ng Provider Active Kelly Alba AIR DRIER MACHINE OPERATOR, AIR DRIER MACHINE OPERATOR-C Attending Provider Active Team Status: Inactive Member Role Status Dates Dr. Max Rodriguez MD Primary Care Provider, Referri ng Provider Active Concetta Calderon AIR DRIER MACHINE OPERATOR, AIR DRIER MACHINE OPERATOR-C Attending Provider Active Team Status: Active Member Role Status Dates Dr. Max Rodriguez MD Primary Care Provider Active Dr. Emmett Rasmussen MD Attending Provider Active Team Status: Inactive Member Role Status Dates Dr. Max Rodriguez MD Primary Care Provider Active Kelly Alba AIR DRIER MACHINE OPERATOR, AIR DRIER MACHINE OPERATOR-C Attending Provider, Referrin g Provider Active Communications Associate Relationship Specialty Start Date End Date Max Rodriguez MD [address] [place] [address] PCP - General Family Medicine 03/22/14 Communications Associate Relationship Specialty Start Date End Date Max Rodriguez MD [address] [place] [address] PCP - General Family Medicine 03/22/14 Communications Associate Relationship Specialty Start Date End Date Max Rodriguez MD [address] [place] [address] PCP - General Family Medicine 03/22/14 Communications Associate Relationship Specialty Start Date End Date Max Rodriguez MD [address] [place] [address] PCP - General Family Medicine 03/22/14 Communications Associate Relationship Specialty Start Date End Date Max Rodriguez MD [address] [place] [address] PCP - General Family Medicine 03/22/14 Communications Associate Relationship Specialty Start Date End Date Max Rodriguez MD [address] [place] [address] PCP - General Family Medicine 03/22/14 Communications Associate Relationship Specialty Start Date End Date Max Rodriguez MD [address] [place] [address] PCP - General Family Medicine 03/22/14 Communications Associate Relationship Specialty Start Date End Date Max Rodriguez MD [address] [place] [address] PCP - General Family Medicine 03/22/14 Communications Associate Relationship Specialty Start Date End Date Max Rodriguez MD [address] [place] [address] PCP - General Family Medicine 03/22/14 Communications Associate Relationship Specialty Start Date End Date Max Rodriguez MD [address] [place] [address] PCP - General Family Medicine 09/15/24 Communications Associate Relationship Specialty Start Date End Date Max Rodriguez MD [address] [place] [address] PCP - General Family Medicine 03/22/14 Communications Associate Relationship Specialty Start Date End Date Max Rodriguez MD [address] [place] [address] PCP - General Family Medicine 03/22/14 Communications Associate Relationship Specialty Start Date End Date Max Rodriguez MD [address] [place] [address] PCP - General Family Medicine 03/22/14 Communications Associate Relationship Specialty Start Date End Date Max Rodriguez MD [address] [place] [address] PCP - General Family Medicine 03/22/14 Nicole Zhang APRN.CNP [address] [place] [address] Air Quality Specialist Family Medicine 10/14/24 Dora Whitman PA-C [address] [place] [address] Air Quality Specialist Family Medicine 10/14/24 Communications Associate Relationship Specialty Start Date End Date Max Rodriguez MD [address] [place] [address] PCP - General Family Medicine 03/22/14 Nicole Zhang APRN.CURRENCY EXCHANGE SPECIALIST [address] [place] [address] Air Quality Specialist Family Medicine 10/14/24 Dora Whitman PA-C [address] [place] [address] Air Quality Specialist Family Medicine 10/14/24 Communications Associate Relationship Specialty Start Date End Date Max Rodriguez MD [address] [place] [address] PCP - General Family Medicine 03/22/14 Nicole Zhang, ASHLY.CURRENCY EXCHANGE SPECIALIST [address] [place] [address] Air Quality Specialist Family Medicine 10/14/24 Dora Whitman PA-C [address] [place] [address] Air Quality Specialist Family Medicine 10/14/24 Communications Associate Relationship Specialty Start Date End Date Max Rodriguez MD [address] [place] [address] PCP - General Family Medicine 03/22/14 Nicole Zhang, CAKE TESTER.CURRENCY EXCHANGE SPECIALIST [address] [place] [address] Air Quality Specialist Family Medicine 10/14/24 Dora Whitman PA-C [address] [place] [address] Air Quality Specialist Family Medicine 10/14/24 Communications Associate Relationship Specialty Start Date End Date Max Rodriguez MD [address] [place] [address] PCP - General Family Medicine 03/22/14 Nicole Zhang, ASHLY.CURRENCY EXCHANGE SPECIALIST [address] [place] [address] Air Quality Specialist Family Medicine 10/14/24 Dora Whitman PA-C [address] [place] [address] Air Quality Specialist Family Medicine 10/14/24 Communications Associate Relationship Specialty Start Date End Date Max Rodriguez MD [address] [place] [address] PCP - General Family Medicine 03/22/14 Nicole Zhang, CAKE TESTER.CURRENCY EXCHANGE SPECIALIST [address] [place] [address] Air Quality Specialist Family Medicine 10/14/24 Dora Whitman PA-C [address] [place] [address] Air Quality Specialist Family Medicine 10/14/24 Communications Associate Relationship Specialty Start Date End Date Max Rodriguez MD [address] [place] [address] PCP - General Family Medicine 03/22/14 Nicole Zhang, CAKE TESTER.CURRENCY EXCHANGE SPECIALIST [address] [place] [address] Air Quality Specialist Family Medicine 10/14/24 Dora Whitman PA-C [address] [place] [address] Air Quality Specialist Family Medicine 10/14/24 Communications Associate Relationship Specialty Start Date End Date Max Rodriguez MD [address] [place] [address] PCP - General Family Medicine 03/22/14 Nicole Zhang, ASHLY.CURRENCY EXCHANGE SPECIALIST [address] [place], [place] [address] [facility] Dora Whitman PA-C [address] [place] [address] [facility] 10/14/24 Communications Associate Relationship Specialty Start Date End Date Max Rodriguez MD [address] [place] [address] PCP - General Family Medicine 03/22/14 Nicole Zhang, CAKE TESTER.CURRENCY EXCHANGE SPECIALIST [address] [place] [address] [facility] 10/14/24 Dora Whitman PA-C [address] [facility], [place] [address] [facility] 10/14/24 Team Status: Inactive Member Role Status [...] Provider Active S tart: February 01, 2025 Communications Associate Relationship Specialty Start Date End Date Max Rodriguez MD [address] [place] [id number] PCP - General Family Medicine 03/22/14 Nicole Zhang APRN.CNP [address] [place] [address] [facility] Family [facility] 10/14/24 Dora Whitman PA-C [address] [place] [address] [facility] Medicine 10/14/24 Communications Associate Relationship Specialty Start Date End Date Max Rodriguez MD [address] [place] [address] PCP - General Family Medicine 03/22/14 Nicole Zhang, CAKE TESTER.CURRENCY EXCHANGE SPECIALIST [address] [place] [address] [facility] 10/14/24 Dora Whitman PA-C [address] [place], [place] [address] [facility] 10/14/24 Communications Associate Relationship Specialty Start Date End Date Max Rodriguez MD [address] [place] [address] PCP - General Family Medicine 03/22/14 Nicole Zhang, CAKE TESTER.CURRENCY EXCHANGE SPECIALIST [address] [place], [place] [address] [facility] 10/14/24 Dora Whitman PA-C [address] [place], [place] [address] [facility] 10/14/24 Team Status: Inactive Member Role Status [...] March 22, 2025 End: March 22, 2025 Communications Associate Relationship Specialty Start Date End Date Max Rodriguez MD [address] [place] [address] PCP - General Family Medicine 02/12/25 Nicole Zhang APRN.CURRENCY EXCHANGE SPECIALIST [facility] [place] [address] Air Quality Specialist Family Medicine 10/14/24 Dora Whitman PA-C [address] [place] [address] Air Quality Specialist Family Medicine 10/14/24 Name Effective Dates (start - stop) Status Members No Information Communications Associate Relationship Specialty Start Date End Date Max Rodriguez MD [address] [place] [address] PCP - General Family Medicine 03/22/14 02/11/25 Max Rodriguez MD [address] [place] [address] PCP - General Family Medicine 02/12/25 Nicole Zhang APRN.CURRENCY EXCHANGE SPECIALIST [address] [place] [address] Air Quality Specialist Family Medicine 10/14/24 03/25/25 Dora Whitman PA-C [facility] [place] [address] Air Quality Specialist Family Medicine 10/14/24 04/08/25 Nicole Zhang APRN.CURRENCY EXCHANGE SPECIALIST [facility] [place] [address] Air Quality Specialist Family Medicine 04/09/25 Dora Whitman PA-C [address] [place] [address] Air Quality Specialist Family Medicine 04/09/25 Communications Associate Relationship Specialty Start Date End Date Max Rodriguez MD [address] [place] [address] PCP - General Family Medicine 02/12/25 Nicole Zhang APRN.CURRENCY EXCHANGE SPECIALIST [address] [place] [address] Air Quality Specialist Family Medicine 04/09/25 Dora Whitman PA-C [address] [place] [address] Air Quality Specialist Family Medicine 04/09/25 Communications Associate Relationship Specialty Start Date End Date Max Rodriguez MD [address] [place] [address] PCP - General Family Medicine 02/12/25 Nicole Zhang APRN.CURRENCY EXCHANGE SPECIALIST [facility] [place] [address] [facility] Family Medicine 04/09/25 Dora Whitman PA-C [address] [place] [address] [facility] Family Medicine 04/09/25 Communications Associate Relationship Specialty Start Date End Date Max Rodriguez MD [address] [place] [address] PCP - General Family Medicine 02/12/25 Nicole Zhang, CAKE TESTER.CURRENCY EXCHANGE SPECIALIST [address] [place] [address] Air Quality Specialist Family [facility] 04/09/25 Dora Whitman PA-C [address] [place] [address] [facility] 04/09/25 Communications Associate Relationship Specialty Start Date End Date Max Rodriguez MD [address] [place] [address] PCP - General Family Medicine 02/12/25 Nicole Zhang APRN.CURRENCY EXCHANGE SPECIALIST [address] [place] [address] [facility] 04/09/25 Dora Whitman PA-C [address] [place] [address] [facility] 04/09/25 Communications Associate Relationship Specialty Start Date End Date Max Rodriguez MD [address] [place] [address] PCP - General Family Medicine 02/12/25 Nicole Zhang, ASHLY.CURRENCY EXCHANGE SPECIALIST [address] [place] [address] [facility] 04/09/25 Dora Whitman PA-C [address] [place] [address] [facility] 04/09/25 Team Status: Active Member Role/Relationship Status Dates Dr. Max Rodriguez MD Primary Care Provider Active Team Status: Inactive Member Role/Relationship Status Dates Dr. Max Rodriguez MD Primary Care Provider Active Start: February 01, 2025 End: February 01, 2025 Dr. Emmett Rasmussen MD Attending Provider Active S tart: February 01, 2025 End: February 01, 2025 Dr. Emmett Rasmussen MD Referring Provider Active S tart: February 01, 2025 End: February 01, 2025 Team Status: Inactive Member Role/Relationship Status Dates Dr. Max Rodriguez MD Primary Care Provider Active Start: March 22, 2025 End: March 22, 2025 Dr. Max Rodriguez MD Referring Provider Active Start: March 22, 2025 End: March 22, 2025 Dr. Emmett Rasmussen MD Attending Provider Active S tart: March 22, 2025 End: March 22, 2025 Team Status: Inactive Member Role/Relationship Status Dates Dr. Max Rodriguez MD Primary Care Provider Active Start: May 26, 2025 End: May 26, 2025 Dr. Mynor Emery DO Emergency Provider Active Start : May 26, 2025 End: May 26, 2025 Communications Associate Relationship Specialty Start Date End Date Max Rodriguez MD [address] [place], [place] [id number] PCP - General Family Medicine 02/12/25 Nicole Zhang APRN.CNP [address] [place] [id number] [facility] 04/09/25 Dora Whitman PA-C [address] [place] [id number] [facility] 04/09/25 Team Status: Inactive Member Role/Relationship Status Dates Dr. Max Rodriguez MD Primary Care Provider Active Start: May 26, 2025 End: May 26, 2025 Dr. Mynor Emery DO Attending Provider Active Start : May 26, 2025 End: May 26, 2025 Dr. Mynor Emery DO Emergency Provider Active Start : May 26, 2025 End: May 26, 2025 Team Status: Inactive Member Role/Relationship Status Dates Dr. Max Rodriguez MD Primary Care Provider Active Start: May 30, 2025 End: May 30, 2025 Dr. Max Rodriguez MD Referring Provider Active Start: May 30, 2025 End: May 30, 2025 Ilene GRIMALDO PA Attending Provider Active Start: May 30, 2025 End: May 30, 2025 Team Status: Inactive Member Role/Relationship Status Dates Dr. Max Rodriguez MD Primary Care Provider Active Start: March 22, 2025 End: March 22, 2025 Dr. Max Rodriguez MD Referring Provider Active Start: March 22, 2025 End: March 22, 2025 Dr. Emmett Rasmussen MD Attending Provider Active S tart: March 22, 2025 End: March 22, 2025 Team Status: Inactive Member Role/Relationship Status Dates Dr. Max Rodriguez MD Primary Care Provider Active Start: May 26, 2025 End: May 26, 2025 Dr. Mynor Emery DO Attending Provider Active Start : May 26, 2025 End: May 26, 2025 Dr. Mynor Emery DO Emergency Provider Active Start : May 26, 2025 End: May 26, 2025 Team Status: Inactive Member Role/Relationship Status Dates Dr. Max Rodriguez MD Primary Care Provider Active Start: May 30, 2025 End: May 30, 2025 Dr. Max Rodriguez MD Referring Provider Active Start: May 30, 2025 End: May 30, 2025 Ilene GRIMALDO PA Attending Provider Active Start: May 30, 2025 End: May 30, 2025 Team Status: Active Member Role/Relationship Status Dates Dr. Max Rodriguez MD Primary Care Provider Active Start: 2025 Dr. Otto Cueto DO Emergency Provider Active Start: 2025 Dr. Antonio Daly MD Attending Provider Active Start: 2025 Team Status: Active Member Role/Relationship Status Dates Dr. Max Rodriguez MD Primary Care Provider Active Start: 2025 Dr. Otto Cueto DO Emergency Provider Active Start: 2025 Dr. Antonio Daly MD Admit Provider Active Star t: 2025 Dr. Antonio Daly MD Attending Provider Active Start: 2025 Communications Associate Relationship Specialty Start Date End Date Max Rodriguez MD [address] [place] [id number] PCP - General Family Medicine 02/12/25 Nicole Zhang APRN.CNP [address] [place] [id number] [facility] Specialist Family Medicine 04/09/25 Dora Whitman PA-C [address] [place] [id number] Air Quality Specialist [facility] 04/09/25 Team Status: Inactive Member Role/Relationship Status Dates Dr. Max Rodriguez MD Primary Care Provider Active Start: 2025 End: June 06, 2025 Dr. Otto Cueto DO Emergency Provider Active Start: 2025 End: June 06, 2025 Dr. Antonio Daly MD Admit Provider Active Star t: 2025 End: June 06, 2025 Dr. Antonio Daly MD Other Provider Active Star t: 2025 End: June 06, 2025 Dr. Massiel De La Cruz DO Attending Provider Active S tart: 2025 End: June 06, 2025 Dr. Mathew Cheema MD Other Provider Active Start: 2025 End: June 06, 2025 Team Status: Active Member Role/Relationship Status Dates Dr. Max Rodriguez MD Primary Care Provider Active Start: June 05, 2025 Dr. Otto Cueto DO Emergency Provider Active Start: June 05, 2025 Dr. Antonio Daly MD Admit Provider Active Star t: June 05, 2025 Dr. Antonio Daly MD Other Provider Active Star t: June 05, 2025 Dr. Massiel De La Cruz DO Attending Provider Active S tart: June 05, 2025 Dr. Massiel De La Cruz DO Other Provider Active Start : June 05, 2025 Dr. Mathew Cheema MD Other Provider Active Start: June 05, 2025 Team Status: Active Member Role/Relationship Status Dates Dr. Max Rodriguez MD Primary Care Provider Active Start: June 06, 2025 Dr. Otto Cueto DO Emergency Provider Active Start: June 06, 2025 Dr. Antonio Daly MD Admit Provider Active Star t: June 06, 2025 Dr. Antonio Daly MD Other Provider Active Star t: June 06, 2025 Dr. Massiel De La Cruz DO Attending Provider Active S tart: June 06, 2025 Dr. Massiel De La Cruz DO Other Provider Active Start : June 06, 2025 Dr. Mathew Cheema MD Other Provider Active Start: June 06, 2025 Team Status: Inactive Member Role/Relationship Status Dates Dr. Max Rodriguez MD Primary Care Provider Active Start: June 07, 2025 End: June 07, 2025 Dr. Max Rodriguez MD Referring Provider Active Start: June 07, 2025 End: June 07, 2025 Ilene GRIMALDO, PA Attending Provider Active Start: June 07, 2025 End: June 07, 2025 Communications Associate Relationship Specialty Start Date End Date Max Rodriguez MD [address] [place] [address] PCP - General Family Medicine 02/12/25 Nicole Zhang APRN.CNP [address] [place], [place] [address] Air Quality Specialist Family Medicine 04/09/25 Dora Whitman PA-C [address] [place], [place] [address] Air Quality Specialist Family Medicine 04/09/25 Veronica Guajardo, LIVE [address] [place] [address] Primary Care [employer] 06/12/25 Communications Associate Relationship Specialty Start Date End Date Max Rodriguez MD [address] [place] [address] PCP - General Family Medicine 02/12/25 Nicole Zhang, CAKE TESTER.CURRENCY EXCHANGE SPECIALIST [address] [place] [id number] [facility] Quality Specialist Family Medicine 04/09/25 Dora Whitman PA-C [address] [place] [address] Air Quality Specialist Family Medicine 04/09/25 Veronica Guajardo, LIVE [address] [place], [place] [id number] Primary Care [employer] 06/12/25 Communications Associate Relationship Specialty Start Date End Date Max Rodriguez MD [address] [place] [id number] PCP - General Family Medicine 02/12/25 Nicole Zhang, CAKE TESTER.CURRENCY EXCHANGE SPECIALIST [address] [place] [id number] Air Quality Specialist Family Medicine 04/09/25 Dora Whitman PA-C [facility] [place] [address] Air Quality Specialist Family Medicine 04/09/25 Veronica Guajardo RN [address] [place] [address] Primary Care [employer] 06/12/25 Team Status: Active Member Role/Relationship Status Dates Dr. Max Rodriguez MD Primary Care Provider Active Start: June 06, 2025 End: June 06, 2025 Dr. Emmett Rasmussen MD Attending Provider Active S tart: June 06, 2025 End: June 06, 2025 Dr. Emmett Rasmussen MD Referring Provider Active S tart: June 06, 2025 End: June 06, 2025 Team Status: Active Member Role/Relationship Status Dates Dr. Max Rodriguez MD Primary Care Provider Active Start: June 06, 2025 Dr. Otto Cueto DO Emergency Provider Active Start: June 06, 2025 Dr. Antonio Daly MD Admit Provider Active Star t: June 06, 2025 Dr. Antonio Daly MD Other Provider Active Star t: June 06, 2025 Dr. Massiel De La Cruz DO Attending Provider Active S tart: June 06, 2025 Dr. Massiel De La Cruz DO Other Provider Active Start : June 06, 2025 Dr. Mathew Cheema MD Other Provider Active Start: June 06, 2025 Team Status: Inactive Member Role/Relationship Status Dates Dr. Max Rodriguez MD Primary Care Provider Active Start: June 07, 2025 End: June 07, 2025 Dr. Max Rodriguez MD Referring Provider Active Start: June 07, 2025 End: June 07, 2025 Ilene GRIMALDO, PA Attending Provider Active Start: June 07, 2025 End: June 07, 2025 Team Status: Inactive Member Role/Relationship Status Dates Dr. Max Rodriguez MD Primary Care Provider Active Start: June 14, 2025 End: June 14, 2025 Dr. Massiel De La Cruz DO Attending Provider Active S tart: June 14, 2025 End: June 14, 2025 Dr. Massiel De La Cruz DO Referring Provider Active S tart: June 14, 2025 End: June 14, 2025 Communications Associate Relationship Specialty Start Date End Date Max Rodriguez MD [address] [place] [id number] PCP - General Family Medicine 02/12/25 Nicole Zhang APRN.CNP [address] [place] [id number] Air Quality Specialist Family Medicine 04/09/25 Dora Whitman PA-C [address] [place] [address] Air Quality Specialist Family Medicine 04/09/25 Veronica Guajardo, LIVE [address] [place] [id number] Primary Care [employer] 06/12/25 Team Status: Active Member Role/Relationship Status Dates Dr. Max Rodriguez MD Primary Care Provider Active Start: June 14, 2025 Dr. Emmett Rasmussen MD Attending Provider Active S tart: June 14, 2025 Dr. Massiel De La Cruz DO Referring Provider Active S tart: June 14, 2025 Team Status: Inactive Member Role/Relationship Status Dates Dr. Max Rodriguez MD Primary Care Provider Active Start: July 19, 2025 End: July 19, 2025 Dr. Max Rodriguez MD Referring Provider Active Start: July 19, 2025 End: July 19, 2025 Ilene GRIMALDO, PA Attending Provider Active Start: July 19, 2025 End: July 19, 2025 Communications Associate Relationship Specialty Start Date End Date Max Rodriguez MD [address] [place] [phone] PCP - General Family Medicine 02/12/25 Nicole Zhang APRN.CNP [address] [place], [place] [address] [facility] 04/09/25 Dora Whitman PA-C [address] [place], [place] [id number] [facility] 04/09/25 Goals (unrecognized section and content) Health [...] BE BASED ON THE PRIMARY CLINICAL RECORDS. [facility]. provides no warranty or guarantee of the accuracy or completeness of information in this document.
--- NOTE | 2025-07-30 08:27 | CL.D_ITS ---
Patient Name: ANNE MARIE CÁRDENAS Study Date: 07/30/2025 Performing: Emmett Rasmussen MD Ht: 64 inches 162.56 cm : 1940 Wt: 183.01 lbs 83.01 kg Age: 85 Gender: female BSA: 1.88 PROCEDURE(S) PERFORMED [id number])[facility] CLINICAL PROFILE AND INDICATIONS Indications: Other Heart Failure: None Stress/Imaging Date: 01/21/25 CAD Presentations: Symptom unlikely to be ischemic. CONCLUSIONS Hypertension. Coronary disease with previously placed stent in the circumflex artery in the right coronary artery with mild to moderate in-stent stenosis. RECOMMENDATIONS Medical therapy DESCRIPTION OF PROCEDURE The patient arrived to the procedure lab. The risks and benefits of the procedure as well as a full description of our services here and current unavailability of surgical backup were fully explained to the patient and/or their significant other prior to the catheterization. The Timeout was completed, verifying the correct patient and procedure. The patient's procedural site was prepped and draped in the usual fashion. Local anesthetic was given subcutaneously to right radial region with Lidocaine 2%. Using a modified Seldinger technique, arterial access was obtained via the right radial artery, a 6Fr sheath was inserted. Left Coronary Artery selective angiography was performed in multiple views using a 5 Fr. 4.0 [place] catheter. Right Coronary Artery selective angiography was then performed in multiple views using a 5 Fr. 4.0 [place] catheter.The arterial sheath was pulled and a TR Band was applied for hemostasis CORONARY ANGIOGRAPHY DOMINANCE: Right Dominant LEFT HEART ASSESSMENT Left Ventricular Ejection Fraction: by Echo 65 % Normal LV wall motion Normal Left Ventricular systolic function Hypertension LEFT MAIN: Mild calcification, Ostial 10% with mild diffuse disease LEFT ANTERIOR DESCENDING ARTERY: Mild calcification, Mild luminal irregularities less than 30% DIAGONAL 1: Ostial - is occluded DIAGONAL 2: Ostial - is occluded CIRCUMFLEX ARTERY: MID CIRC: Previously placed stent is patent, 60 % Stenosis OM 1: Proximal - Mild luminal irregularities RIGHT CORONARY ARTERY: Previously placed stent has an instent 50 % restenosis RT PDA: Proximal - Mild luminal irregularities less than 30% COMPLICATIONS No Complications PROCEDURE MEDICATIONS Fentanyl 25 mcg IV Versed 1 mg IV Oxygen: 2 L/min via nasal cannula Baby Aspirin (81mg) 1 Tabs PO 07/30/2025 07:32:20 Benadryl 50 mg IV @ 07/30/2025 07:53:25 Heparin given IA 07/30/2025 07:59:43 Solu-medrol 125 mg IV 07/30/2025 07:53:19 SUMMARY OF HEMODYNAMIC DATA Time AIR REST ECG 07:15:55 AO 227/82 (134) SA 08:09:38 Signed By Emmett Rasmussen MD On 07/30/2025 08:26:26 Emmett Rasmussen MD
== END 2025-07-30 10:15 | disposition home or self-care (01) ==
PROVIDERS: Physician Assistant Medical; PCP Family Medicine; Referring Provider Internal Medicine Cardiovascular Disease; Visit Provider Internal Medicine Cardiovascular Disease
DX: T82.855A Stenosis of coronary artery stent, initial encounter (principal); I50.32 Chronic diastolic (congestive) heart failure; I11.0 Hypertensive heart disease with heart failure; J44.9 Chronic obstructive pulmonary disease, unspecified; I48.0 Paroxysmal atrial fibrillation; I25.10 Atherosclerotic heart disease of native coronary artery without angina pectoris; Z95.5 Presence of coronary angioplasty implant and graft; E78.5 Hyperlipidemia, unspecified; Z79.82 Long term (current) use of aspirin; Z79.899 Other long term (current) drug therapy; Z79.890 Hormone replacement therapy; Z79.01 Long term (current) use of anticoagulants; E03.9 Hypothyroidism, unspecified; Z87.891 Personal history of nicotine dependence; Y71.8 Miscellaneous cardiovascular devices associated with adverse incidents, not elsewhere classified
CPT/HCPCS: 36415; 80048; 85025; 85610; 85730; 93454; 99152; 99153; Q9967; C1769; C1894

== ENCOUNTER 2025-08-31 11:55 | Emergency (ER) | payer MEDICARE, SELFPAY ==
[2021-12-05 11:03] VITALS: BMI 29.2
[2025-08-31] VITALS (7 sets, daily range): BP systolic 105–122; BP diastolic 51–72; PULSE 72–85; RESP 16–20; TEMP 36.6; O2SAT 93–98; BMI 30.9
--- NOTE | 2025-08-31 13:02 | EKG12_ITS ---
Test Reason : SOB Blood Pressure : */* mmHG Vent. Rate : 71 BPM Atrial Rate : 71 BPM P-R Int : 138 ms QRS Dur : 76 ms QT Int : 408 ms P-R-T Axes : 50 25 65 degrees QTcB Int : 443 ms Normal sinus rhythm Minimal voltage criteria for LVH, may be normal variant ( Sokolow-Glynn ) Borderline ECG Confirmed by TONIE CELIS ([id number]), book editor NEETU GAGE ([id number]) on 09/03/2025 6:41:07 AM Referred By: TOMY/ER Confirmed By: TONIE CELIS
--- NOTE | 2025-08-31 13:02 | CT_ITS ---
PROCEDURE: ABDOMEN/PELVIS WITHOUT CONT 08/31/2025 REASON FOR EXAM: NAUSEA VOMITING TECHNIQUE: Procedure Code: CTABDPEL Modality: CT Procedure: ABDOMEN/PELVIS WITHOUT CONT Noncontrast technique limits evaluation of the abdominal and pelvic viscera. Coronal and Sagittal reconstruction series were provided. One or more dose reduction techniques were used (e.g., Automated exposure control, adjustment of the mA and/or kV according to patient size, use of iterative reconstruction technique). RADIATION DOSE SUMMARY: CTDlvol: 13.61 mGy DLP: 615.43 mGycm COMPARISON: None. FINDINGS: Lung bases: Clear. Liver: Unremarkable. Gallbladder: Unremarkable. Spleen: Unremarkable. Pancreas: Unremarkable. Adrenals: Unremarkable. Kidneys: No hydronephrosis. No nephrolithiasis. Bladder: Unremarkable. Reproductive Organs: Unremarkable. Bowel: No bowel wall thickening. No bowel obstruction. Colonic diverticulosis with no evidence of acute diverticulitis. Appendix: Unremarkable. Lymph nodes: No lymphadenopathy. Vasculature: Atherosclerotic calcifications. Peritoneum / Retroperitoneum: No free air or free fluid. Bones: No acute bony abnormalities. CT/Abdomen/Pelvis without Cont IMPRESSION: No acute abdominopelvic abnormalities. Reading Location: [facility]
--- NOTE | 2025-08-31 13:03 | EX.ED.DYSGE1 ---
HPI History of Present Illness Chief Complaint: Shortness of Breath Narrative Narrative: Patient is a 85-year-old female presenting to the emergency department for generalized weakness. Patient has a past medical history of hypertension, hyperlipidemia, paroxysmal A-fib on , NSTEMI status post stent placement in 2019, CHF and chronic shortness of breath. Patient arrives with daughter who she lives with. Daughter helps provide history. About 1 week ago on Wednesday the patient started to complain of generalized weakness not able to ambulate a few steps with out significant fatigue. She went to her primary care doctor on Wednesday and was diagnosed with a UTI. Was prescribed Macrobid and has been taking it as prescribed. Since then she has continued to worsen endorsing profound fatigue. She endorses nausea, decreased appetite and nonbloody, nonbilious vomiting. She has not taken her medications in about 2 days due to the above symptoms. Denies any recent falls. Denies any focal numbness or weakness. She denies fever, chills, chest pain, shortness of breath worse than baseline, abdominal pain, diarrhea, constipation. [facility] Medical History Essential hypertension HLD (hyperlipidemia) PAF (paroxysmal atrial fibrillation) H/O amiodarone therapy History of ESBL E. coli infection History of ESBL E. coli infection Trigger middle finger of left hand Tobacco abuse Personal history of colonic polyps Osteoarthritis Heart attack Graves disease COPD (chronic obstructive pulmonary disease) CAD (coronary artery disease) Left ventricular diastolic dysfunction Chronic diastolic (congestive) heart failure Nicotine dependence Atherosclerosis of coronary artery of [place] heart without angina pectoris History of non-ST elevation myocardial infarction (NSTEMI) (12/21/19) Vertigo Hypothyroidism Anxiety and depression MATT (obstructive sleep apnea) Obesity Home Medications ?Medication ?Instructions ?Recorded ?Last Taken ?Type aspirin 81 mg chewable tablet 81 mg PO DAILY@0800 heart health 05/07/20 07/30/25 History rosuvastatin 5 mg tablet 5 mg PO DAILY cholesterol 05/07/20 05/06/20 History omeprazole 40 mg capsule,delayed 40 mg PO BID stomach 01/29/22 07/30/25 History release celecoxib 200 mg capsule (Celebrex) 200 mg PO DAILY mood 01/21/24 Unknown History duloxetine 30 mg capsule,delayed 30 mg PO QDAY mood 03/22/25 Unknown History release amlodipine 10 mg tablet 10 mg PO QDAY bp 05/30/25 Unknown History levothyroxine 137 mcg tablet 137 mcg PO MOTUWETHFR thyroid 05/30/25 07/30/25 History (Levoxyl) levothyroxine 137 mcg tablet 68.5 mcg PO SA thyroid 05/30/25 Unknown History (Synthroid) apixaban 5 mg tablet (Eliquis) 5 mg PO BID #60 tabs 06/19/25 07/26/25 Rx amiodarone 200 mg tablet 200 mg PO DAILY #30 tabs 06/25/25 07/29/25 Rx tramadol 50 mg tablet 50 mg PO Q8H PRN Pain Score 1-10 07/19/25 Unknown History valsartan 320 mg tablet 320 mg PO QDAY bp #1 TAB 07/19/25 07/30/25 Rx hydrochlorothiazide 25 mg tablet 25 mg PO QAM #90 tabs 07/30/25 Unknown Rx metoprolol succinate 50 mg 50 mg PO DAILY heart 07/30/25 Unknown History tablet,extended release 24 hr Allergy/AdvReac Type Severity Reaction Status Date / Time iodine Allergy Severe Angioedema Verified 08/31/25 12:01 guaifenesin (From Mucinex) Allergy Mild Other Verified 08/31/25 12:01 ticagrelor (From Brilinta) AdvReac Severe Shortness Verified 08/31/25 12:01 of breath varenicline (From Chantix) AdvReac Severe Other Verified 08/31/25 12:01 Family History Father CAD (coronary artery disease) Prostate cancer Brother Alzheimer's disease Daughter Breast cancer Daughter Breast cancer Surgical History History of coronary artery stent placement (12/21/19) Social History Smoking Status: Former smoker Tobacco: How many years used: 45 Electronic Cigarette Use: with nicotine and not used how long ago did patient quit smokin10/2023 second hand exposure: No alcohol intake: current alcohol intake frequency: a few times a week substance use type: does not use ROS ROS ED ROS Narrative see HPI EXAM Physical Exam Narrative Exam Narrative: Vital signs: Reviewed General: Alert and oriented x 3. No acute distress HEENT: Head is normocephalic and atraumatic, sinuses nontender, pupils equal round and reactive. Nares are patent. Oropharynx and throat exams normal. Neck: Supple without lymphadenopathy nontender Cardiovascular: Regular rate and rhythm, no murmurs. No rubs or gallops. Normal S1 and S2 Respiratory: Clear to auscultation bilaterally. No wheezes, rales, rhonchi Abdominal: Soft and nontender. Normal bowel sounds. No guarding or rebound. Nonsurgical abdomen Extremities: No lower extremity edema. No tenderness. No bruising. Normal range of motion. Normal sensation. Skin: No rash or redness. Neurological: Cranial nerves II through XII are grossly intact. Normal strength and sensation. Normal cerebellar function The rest of the physical exam is unremarkable Const Vital Signs: 08/31/25 11:56 08/31/25 12:00 08/31/25 12:33 Temperature 98 F 98 F Temperature Source Oral Oral Pulse Rate 85 85 Respiratory Rate 20 H 20 H Respiratory Effort Short of Breath Blood Pressure 108/62 108/62 Blood Pressure Mean 77 77 Pulse Ox 98 98 Oxygen Delivery Method Room Air Room Air 08/31/25 13:00 08/31/25 14:00 08/31/25 14:00 Temperature 98 F 97.9 F Temperature Source Oral Oral Pulse Rate 85 74 Respiratory Rate 18 18 Respiratory Effort Blood Pressure 110/64 105/72 105/62 Blood Pressure Mean 79 83 75 Pulse Ox 98 97 Oxygen Delivery Method Room Air 08/31/25 14:00 08/31/25 15:00 Temperature Temperature Source Pulse Rate 73 Respiratory Rate 18 Respiratory Effort Blood Pressure 105/62 122/51 H Blood Pressure Mean 75 71 Pulse Ox 98 94 Oxygen Delivery Method MDM MDM MDM Narrative Medical decision making narrative: Patient is an 85-year-old female presenting to the emergency department for generalized fatigue, nausea and vomiting. Patient was seen and examined. Vitals are stable. Patient resting bed comfortably no acute distress. Differential includes but is not limited to: UTI, pneumonia, ACS, electrolyte imbalance, anemia, intra-abdominal pathology including colitis, diverticulitis, obstruction. No focal neurologic findings. Not consistent with stroke. CBC with no leukocytosis and a normal hemoglobin. CMP with mild COURTNEY. Fluids ordered. Lactic within normal limits. Initial troponin of 16, reflex of 14. EKG shows normal sinus rhythm with no ischemic changes. No significant ST elevation or depression. No abnormal T wave versions. Urinalysis with 1+ bacteria and small amount of leukocyte esterase however negative nitrites and WBCs. This does not look like urinary tract infection however urine culture was sent and patient is already on Macrobid. Chest x-ray was read by myself. No opacities, pneumothorax or wide mediastinum noted. Radiology read with no acute radiographic abnormalities. CT of the abdomen pelvis with no acute intra-abdominal abnormalities. Patient and daughter at bedside were updated on the findings. Patient ambulated with walker without significant difficulty. Recommended that the patient finish her course of antibiotics and the urine culture will be sent here and if it grows anything that was not covered by Macrobid she will be called. Patient and daughter feel comfortable with discharge. Did offer admission for PT OT but declined. Encourage fluids for home given the COURTNEY. Patient discharged from the Emergency Department. I do not feel that the patient's evaluation reveals any acute reason for admission at this time. I instructed them to either follow-up with their primary care physician or promptly return to the Emergency Department for reevaluation should symptoms worsen or new symptoms develop. I explained what symptoms would indicate the need to return to the emergency department. Shared decision making was used. The patient voiced understanding of the treatment plan and is agreeable with it. Clinical impression COURTNEY Generalized weakness History & Record Review Discussion w/independent historian: Patient and Family Lab Data Attestation: I reviewed the patient's lab results. Labs: Laboratory Results - last 24 hr 08/31/25 08/31/25 08/31/25 12:29 13:10 13:24 WBC 10.2 RBC 4.55 Hgb 12.7 Hct 39.2 MCV 86.2 MCH 27.9 MCHC 32.4 RDW Std Deviation 50.4 H RDW Coeff of Kal 16.0 H Plt Count 321 MPV 11.2 Immature Gran % (Auto) 0.800 Neut % (Auto) 78.0 H Lymph % (Auto) 7.4 L [place] % (Auto) 7.6 Eos % (Auto) 5.8 H Baso % (Auto) 0.4 Absolute Neuts (auto) 8.0 H Absolute Lymphs (auto) 0.76 L Nucleated RBC % 0 Sodium 138 Potassium 4.2 Chloride 102 Carbon Dioxide 26.1 Anion Gap 10 BUN 36 H Creatinine 1.43 H Est GFR (MDRD) Non-Af 36 L BUN/Creatinine Ratio 25.1 H Glucose 125 H Lactic Acid 1.1 Calcium 8.9 Total Bilirubin 0.38 AST 15 ALT 10 Alkaline Phosphatase 62 Troponin T High Sens 16 H Troponin T Hi Sens 2 Hr Total Protein 7.0 Albumin 3.6 Globulin 3.3 Albumin/Globulin Ratio 1.1 Lipase 28 TSH 1.530 Free T4 2.00 H Urine Color Yellow Urine Clarity Sl. Cloudy Urine pH 5.0 Ur Specific [place] 1.020 Urine Protein 100 H Urine Glucose (UA) Normal Urine Ketones Negative Urine Occult Blood 10 H Urine Nitrite Negative Urine Bilirubin Negative Urine Urobilinogen 1 H Ur Leukocyte Esterase 25 H Urine RBC 0 SEEN Urine WBC 0-5 SEEN Ur Squamous Epith Cells 0-5 SEEN Urine Bacteria 1+ Hyaline Casts 0-5 SEEN Urine Mucus 1+ 08/31/25 15:13 WBC RBC Hgb Hct MCV MCH MCHC RDW Std Deviation RDW Coeff of [place] Plt Count MPV Immature Gran % (Auto) Neut % (Auto) Lymph % (Auto) [place] % (Auto) Eos % (Auto) Baso % (Auto) Absolute Neuts (auto) Absolute Lymphs (auto) Nucleated RBC % Sodium Potassium Chloride Carbon Dioxide Anion Gap BUN Creatinine Est GFR (MDRD) Non-Af BUN/Creatinine Ratio Glucose Lactic Acid Calcium Total Bilirubin AST ALT Alkaline Phosphatase Troponin T High Sens Troponin T Hi Sens 2 Hr 14 Total Protein Albumin Globulin Albumin/Globulin Ratio Lipase TSH Free T4 Urine Color Urine Clarity Urine pH Ur Specific [place] Urine Protein Urine Glucose (UA) Urine Ketones Urine Occult Blood Urine Nitrite Urine Bilirubin Urine Urobilinogen Ur Leukocyte Esterase Urine RBC Urine WBC Ur Squamous Epith Cells Urine Bacteria Hyaline Casts Urine Mucus Radiography Diagnostic Testing: Clinical Impression(s) from Imaging Studies Abdomen/Pelvis CT 08/31/25 13:02 IMPRESSION: No acute abdominopelvic abnormalities. Reading Location: [facility] Chest X-Ray 08/31/25 14:15 IMPRESSION: As above. Reading [facility] Discharge Plan Triage Chief Complaint: Shortness of Breath ED Provider: Marbella Tavares Dx/Rx/DC Orders Clinical Impression: Weakness, COURTNEY (acute kidney injury) Instructions: Acute Kidney Failure Dc, ED Weakness Uncertain Cause Prescriptions: No Action omeprazole 40 mg capsule,delayed release(DR/EC) 40 mg PO BID celecoxib [Celebrex] 200 mg capsule 200 mg PO DAILY duloxetine 30 mg capsule,delayed release(DR/EC) 30 mg PO QDAY amlodipine 10 mg tablet 10 mg PO QDAY levothyroxine [Levoxyl] 137 mcg tablet 137 mcg PO MOTUWETHFR levothyroxine [Synthroid] 137 mcg tablet 68.5 mcg PO SA valsartan 320 mg tablet 320 mg PO QDAY Qty: 1 0RF aspirin 81 MG tablet,chewable 81 mg PO DAILY@0800 rosuvastatin 5 MG tablet 5 mg PO DAILY tramadol 50 mg tablet 50 mg PO Q8H PRN (Reason: Pain Score 1-10) metoprolol succinate 50 mg tablet extended release 24 hr 50 mg PO DAILY Eliquis 5 mg tablet 5 mg PO BID Qty: 60 5RF amiodarone 200 mg tablet 200 mg PO DAILY Qty: 30 11RF hydrochlorothiazide 25 mg tablet 25 mg PO QAM Qty: 90 4RF Primary Care Provider: Max Jordan Referrals: Max Jordan MD [Primary Care Provider, Family Practice] - As soon as possible Activity Restrictions/Additional Instructions: Drink lots of fluids. Your evaluation in the Emergency Department did not reveal any acute reason for admission. However, I want to emphasize that you may be early in the course of a disease process or illness even if it is not present. For this reason you should follow-up within 24 hours for reevaluation with either your primary care physician or if necessary back here in the Emergency Department. You should return to the Emergency Department immediately if your symptoms worsen or new symptoms develop. Print Language: Indonesian Disposition Disposition: Home, Self Care
[2025-08-31 13:19] LABS: Hematocrit 39.2 % (37-47); Hemoglobin 12.7 g/dL (12.0-15.0); Immature Granulocytes Count 0.080 X10^3/uL (0.0-0.0); Mean Corp Hgb Conc 32.4 g/dL (32-36); Mean Corpuscular Volume 86.2 fL (81-99); Mean Platelet Vol. 11.2 fl (6.2-12.0); NRBC Flagged by Analyzer 0 % (0-5); Platelet Count 321 K/mm3 (150-450); RBC Distribution Width CV 16.0 % (11.6-14.6); RBC Distribution Width SD 50.4 fl (35.1-43.9); Red Blood Count 4.55 M/mm3 (4.2-5.4); White Blood Count 10.2 K/mm3 (4.4-11.0)
[2025-08-31 13:32] LABS: AST(SGOT) 15 U/L (<=31); Alanine Aminotransfer ALT/SGPT 10 U/L (<=34); Albumin, Serum 3.6 g/dL (3.4-4.8); Alkaline Phosphatase 62 U/L (35-104); Anion Gap 10 (5-15); BUN 36 mg/dL (4-19); BUN/Creat Ratio 25.1 RATIO (10-20); Calcium,Total 8.9 mg/dL (7.6-11.0); Carbon Dioxide 26.1 mmol/L (21.0-32.0); Chloride 102 mmol/L (98-108); Globulin 3.3 g/dL (2.2-4.2); Glucose 125 mg/dL (70-99); Lipase 28 U/L (13-75); Potassium 4.2 mmol/L (3.3-5.1); Troponin T High Sensitivity 16 ng/L (<=14)
[2025-08-31 13:47] LABS: Red Blood Cells-Urine 0 SEEN /hpf (0-5)
[2025-08-31 13:50] LABS: Color, Urine Yellow (Yellow); Glucose, Dipstick Normal (Normal); Ketone-Dipstick Negative (Negative); Leukocyte Esterase-Dipstick 25 /ul (Negative); Nitrite-Dipstick Negative (Negative); Occult Blood-Urine 10 /ul (Negative); Protein-Dipstick 100 mg/dl (Negative); Specific Gravity, Urine 1.020 (1.002-1.030); Urine Bilirubin Dipstick Negative (Negative)
[2025-08-31 14:01] LABS: Squamous Epithelial Cells - UA 0-5 SEEN /hpf (5-10)
[2025-08-31 14:02] LABS: Mucous, Urine 1+ /hpf (<or=2+)
--- NOTE | 2025-08-31 14:15 | RAD_ITS ---
PROCEDURE: CHEST PA AND LATERAL 08/31/2025 REASON FOR EXAM: WEAKNESS, RULE OUT PNEUMONIA TECHNIQUE: Procedure Code: RADCXR Modality: DX Procedure: CHEST PA AND LATERAL COMPARISON: Reviewed FINDINGS: Heart size normal. Lungs clear. RAD/Chest PA and Lateral IMPRESSION: As above. Reading Location: [facility]
[2025-08-31] MEDS: 0.9% Normal Saline (1000mL) 1,000 ML 1000 ML IV (15:34)
[2025-08-31 15:36] LABS: Troponin T High Sens 2 HR 14 ng/L (<=14)
== END 2025-08-31 17:12 | disposition home or self-care (01) ==
PROVIDERS: Emergency Provider Student in an Organized Health Care Education/Training Program; PCP Family Medicine; Visit Provider Student in an Organized Health Care Education/Training Program
DX: R53.1 Weakness (principal); I50.32 Chronic diastolic (congestive) heart failure; I11.0 Hypertensive heart disease with heart failure; J44.9 Chronic obstructive pulmonary disease, unspecified; I48.0 Paroxysmal atrial fibrillation; N17.9 Acute kidney failure, unspecified; I25.2 Old myocardial infarction; Z87.891 Personal history of nicotine dependence; E78.5 Hyperlipidemia, unspecified; I25.10 Atherosclerotic heart disease of native coronary artery without angina pectoris; Z79.01 Long term (current) use of anticoagulants
CPT/HCPCS: 71046; 74176; 80053; 81001; 83605; 83690; 84439; 84443; 84484; 85025; 87086; 87631; 93005; 96360; 96361; 99284; A4216